=== PATIENT | male | born 1965 | race Two or more races ===

== ENCOUNTER 2020-03-16 06:51 | Outpatient (REF) | payer OTHER, SELFPAY ==
[2020-03-16 07:31] LABS: MANUAL DIFF FLAG NO
[2020-03-16 07:41] LABS: Basophils Absolute Auto 0.1 X10*3/uL (0.0-0.2); Basophils Percent Auto 0.6 % (0-2); Eosinophils Absolute Auto 0.3 X10*3/uL (0.0-0.4); Eosinophils Percent Auto 2.8 % (0-4); Hematocrit 35.7 % (42-52); Hemoglobin 11.1 g/dl (14.0-18.0); Imm Gran Abs Auto 0.04 X10*3/uL (0.00-0.03); Imm Gran Pct Auto 0.4 % (0.0-0.4); Lymphocytes Absolute Auto 2.5 X10*3/uL (1.2-4.9); Lymphocytes Percent Auto 23.2 % (20-40); Mean Corpuscular HGB Conc 31.1 g/dl (31.0-36.0); Mean Corpuscular Volume 93.2 fL (80-98); Mean Platelet Volume 9.7 fL (9.4-12.4); Monocytes Percent Auto 9.2 % (2-11); Neutrophils Percent Auto 63.8 % (45-73); Platelet Count 346 X10*3/uL (160-400); Red Blood Count 3.83 X10*6/uL (4.60-5.80); Red Cell Distribution Width 15.4 % (11.0-16.0); White Blood Count 10.9 X10*3/uL (4.8-10.8)
[2020-03-16 08:22] LABS: Alanine Aminotransferase 49 U/L (0-40); Albumin Level 3.5 g/dL (3.5-5.0); Alkaline Phosphatase 55 U/L (39-117); Aspartate Amino Transferase 31 U/L (5-37); Bilirubin Total 0.4 mg/dL (0.0-1.0); Blood Urea Nitrogen 30 mg/dL (9-16); Calcium 7.7 mg/dL (8.4-10.2); Cholesterol 136 mg/dL; Estimated Glomerular Filt Rate 40; Glucose Fasting 170 mg/dL (60-99); HDL Cholesterol 25 mg/dL; Iron 81 mcg/dL (45-160); LDL Cholesterol Calculated 42 mg/dl; Percent Iron Saturation 27 % (15-50); Total Iron Binding Capacity 304 mcg/dL (228-428); Total Protein 6.3 g/dL (6.5-8.0); Triglycerides 345 mg/dL; Unsaturated Iron Binding 223 ug/dL
[2020-03-16 08:29] LABS: Anion Gap 12 (12-20); Carbon Dioxide 27 mmol/L (22-29); Chloride 107 mmol/L (96-108); Potassium 4.4 mmol/l (3.3-5.1); Sodium 142 mmol/L (135-145)
[2020-03-16 08:42] LABS: Ferritin 39 ng/mL (20-250)
[2020-03-16 08:48] LABS: Creatinine Urine 94.24 mg/dL
[2020-03-20 11:02] LABS: Vitamin A 80 mcg/dL (38-98)
== END 2020-03-16 06:52 | disposition home or self-care (01) ==
LOC: HO.LAB 06:51
PROVIDERS: PCP Internal Medicine; Visit Provider Internal Medicine
DX: E11.49 Type 2 diabetes mellitus with other diabetic neurological complication (principal); E11.22 Type 2 diabetes mellitus with diabetic chronic kidney disease; N18.9 Chronic kidney disease, unspecified; D63.1 Anemia in chronic kidney disease; E78.2 Mixed hyperlipidemia; E50.9 Vitamin A deficiency, unspecified; E55.9 Vitamin D deficiency, unspecified
CPT/HCPCS: 36415; 80053; 80061; 82043; 82306; 82728; 83540; 84590; 85025

== ENCOUNTER → 2020-04-01 13:28 | Outpatient (BNVA) | payer OTHER, SELFPAY | PROVIDERS: PCP Internal Medicine; Visit Provider Physician Assistant | DX: E66.9 Obesity, unspecified (principal); Z68.35 Body mass index [BMI] 35.0-35.9, adult; Z98.84 Bariatric surgery status | CPT/HCPCS: 99212 ==

== ENCOUNTER 2020-04-24 10:54 | Emergency (ER) | payer OTHER, SELFPAY ==
[2020-04-24 11:00] VITALS: BP 157/62; PULSE 90; RESP 18; TEMP 38.8; BMI 31.8
[2020-04-24 11:50] VITALS: O2SAT 98
[2020-04-24] MEDS: 0.9 % Sodium Chloride 1,000 ML 999 ML IVCONT ×2 (12:14→16:43)
[2020-04-24] MEDS: Acetaminophen 325 MG TABLET 975 MG PO (12:18)
--- NOTE | 2020-04-24 12:19 | PC.NURSE ---
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
[2020-04-24 12:20] LABS: Basophils Percent Auto 0.3 % (0-2); Eosinophils Absolute Auto 0.1 X10*3/uL (0.0-0.4); Eosinophils Percent Auto 0.6 % (0-4); Hematocrit 34.5 % (42-52); Hemoglobin 10.7 g/dl (14.0-18.0); Imm Gran Abs Auto 0.04 X10*3/uL (0.00-0.03); Imm Gran Pct Auto 0.4 % (0.0-0.4); Lymphocytes Absolute Auto 0.8 X10*3/uL (1.2-4.9); Lymphocytes Percent Auto 7.9 % (20-40); MANUAL DIFF FLAG SCAN; Mean Corpuscular Hemoglobin 29.4 pg (27.0-33.0); Mean Corpuscular Volume 94.8 fL (80-98); Mean Platelet Volume 9.3 fL (9.4-12.4); Monocytes Absolute Auto 1.5 X10*3/uL (0.1-1.2); Monocytes Percent Auto 15.1 % (2-11); Neutrophils Absolute Auto 7.7 X10*3/uL (2.0-8.3); Neutrophils Percent Auto 75.7 % (45-73); Platelet Count 330 X10*3/uL (160-400); Red Blood Count 3.64 X10*6/uL (4.60-5.80); Red Cell Distribution Width 15.1 % (11.0-16.0); SCAN SMEAR FLAG 1; White Blood Count 10.2 X10*3/uL (4.8-10.8)
[2020-04-24 12:21] LABS: Adenovirus PCR Not Detected (Not Detect.); Bordetella parapertussis PCR Not Detected (Not Detect.); Bordetella pertussis PCR Not Detected (Not Detect.); Chlamydia pneumoniae PCR Not Detected (Not Detect.); Coronavirus 229E PCR Not Detected (Not Detect.); Coronavirus HKU1 PCR Not Detected (Not Detect.); Coronavirus NL63 PCR Not Detected (Not Detect.); Coronavirus OC43 PCR Not Detected (Not Detect.); Human metapneumovirus PCR Not Detected (Not Detect.); Influenza A PCR Not Detected (Not Detect.); Influenza B PCR Not Detected (Not Detect.); Mycoplasma pneumoniae PCR Not Detected (Not Detect.); Parainfluenza 1 PCR Not Detected (Not Detect.); Parainfluenza 2 PCR Not Detected (Not Detect.); Parainfluenza 3 PCR Not Detected (Not Detect.); Parainfluenza 4 PCR Not Detected (Not Detect.); RSV PCR Not Detected (Not Detect.); Rhino/Enterovirus PCR Not Detected (Not Detect.)
[2020-04-24 12:25] LABS: INTERNATIONAL NORM RATIO 1.1 (0.9-1.1); Prothrombin Time 12.5 SEC (10.8-13.0)
[2020-04-24 12:38] LABS: Lactic Acid 1.2 mmol/L (0.5-2.0)
[2020-04-24 12:40] LABS: SLIDE REVIEW VERIFIED
--- NOTE | 2020-04-24 12:40 | ED_ITS ---
HPI - Chest Pain General Chief Complaint: Chest Pain Stated Complaint: chest pain Time Seen by Provider: 04/24/20 11:50 Source: patient and EMS Mode of arrival: EMS Limitations: language barrier (German-speaking) History of Present Illness HPI narrative: 55yoM c PMHx of CKD, DM, HTN, HLD and obesity presenint via EMS from his [facility] presenting to the ED c/o cough c mid- sternal chest pain c associated SOB/WADDELL that started today. Per staff patient was diaphoretic. Patient was given aspirin x4 by EMS reports that his chest pain resolved before the aspirin was given. Patient denies any fevers, chills, nausea/vomiting, paresthesias, abdominal pain, diarrhea, constipation. Denies recent sick contacts or recent travel. Denies any additional complaints or concerns at this time. Related Data Home Medications Medication Instructions Recorded Confirmed acetaminophen 500 mg tablet 1,000 mg PO Q6H PRN 04/01/20 04/01/20 alcohol swabs pad TOPICAL TID 04/01/20 04/01/20 blood sugar diagnostic #10 ea 04/01/20 04/01/20 bupropion HCl 300 mg 24 hr tablet, 300 mg PO DAILY 04/01/20 04/01/20 extended release buspirone 5 mg tablet 5 mg PO BID 04/01/20 04/01/20 calcium carbonate-vitamin D3 600 1 tab PO BID 04/01/20 04/01/20 mg (1,500 mg)-800 unit tablet cholecalciferol (vitamin D3) 1,250 PO 04/01/20 04/01/20 mcg (50,000 unit) capsule cromolyn 4 % eye drops drp OPHTHALMIC (EYE) 04/01/20 04/01/20 fenofibrate 160 mg tablet 160 mg PO DAILY 04/01/20 04/01/20 flash glucose sensor #1 ea 04/01/20 04/01/20 fluticasone propionate 50 INTRANASAL 04/01/20 04/01/20 mcg/actuation nasal spray,suspension gabapentin 300 mg capsule mg PO 04/01/20 04/01/20 lancets #100 ea 04/01/20 04/01/20 loratadine 10 mg tablet 10 mg PO DAILY 04/01/20 04/01/20 multivitamin 1 tab PO DAILY 04/01/20 04/01/20 omega-3 fatty acids 1,000 mg 1,000 mg PO DAILY 04/01/20 04/01/20 capsule omega-3 fatty acids-fish oil 360 1 cap PO BID 04/01/20 04/01/20 mg-1,200 mg capsule trazodone 100 mg tablet [id number] mg PO BEDTIME PRN 04/01/20 04/01/20 Previous Rx's Medication Instructions Recorded insulin lispro 100 unit/mL See Rx Instructions SUBCUT DAILY 03/02/20 subcutaneous solution 30 Days #40 ml lisinopril 2.5 mg tablet 2.5 mg PO DAILY 30 Days #30 tab 03/17/20 flash glucose sensor #2 ea 04/20/20 Allergies Allergy/AdvReac Type Severity Reaction Status Date / Time Sulfa (Sulfonamide Allergy Unknown UNKNOWN Verified 04/01/20 14:04 Antibiotics) [SULFA (SULFONAMIDE ANTIBIOTICS)] pt states no food allergies Allergy Unknown Unknown Uncoded 03/27/20 09:22 Review of Systems Review of Systems: Constitutional : No Fever, No Chills, No Night Sweats, No Fatigue, No Malaise ENT/Mouth : No Hearing loss, No Ear Pain, No Nasal Congestion, No Sinus Pain, No Hoarseness, No sore throat, No Rhinorrhea, No Swallowing Difficulty Eyes: No Eye Pain, No Vision Changes Cardiovascular : + Chest Pain, + SOB, + Dyspnea on Exertion, + Orthopnea, + Edema, + extremity swelling, No Palpitations Respiratory : + Cough, No Sputum, No Wheezing, No Dyspnea Gastrointestinal : No Nausea, No Vomiting, No Diarrhea, No abdominal Pain Genitourinary : No Dysuria Musculoskeletal : No joint pain, No Myalgias, No Joint Swelling Skin : No Skin Lesions, No rash Neuro : No Weakness, No Numbness, No Paresthesias, No Loss of Consciousness, No Dizziness, No Headache Heme/Lymph: No Lymphadenopathy Yes all other systems are reviewed and are negative [facility] Past Medical History Attestation statement: The following information was validated with the patient. Medical History CKD (chronic kidney disease) Diabetes type 2, uncontrolled Diabetic nephropathy associated with type 2 diabetes mellitus Surgical History 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 History of tonsillectomy and adenoidectomy Hx laparoscopic cholecystectomy S/P cataract surgery S/P debridement S/P tooth extraction Status post amputation of toe Family History Family History Father Cerebral aneurysm CVD (cardiovascular disease) Mother DM (diabetes mellitus) Brother No problems noted. Brother No problems noted. Son No problems noted. Daughter No problems noted. Social History Social History Alcohol intake: never Smoking Status: Never smoker Smoked in Last 30 Days: No Use of substances other than those prescribed or required for medical reasons: No Advance Directives: No Advance Directives Information Provided: Yes Physical Exam Vital Signs: Vital Signs: Last Vital Signs Temp 101.9 F H 04/24/20 11:00 Pulse 90 04/24/20 11:00 Resp 18 04/24/20 11:00 BP 157/62 H 04/24/20 11:00 Pulse Ox 98 04/24/20 11:50 Body Mass Index 31.8 vital signs have been reviewed as normal and appeared to be correct. Blood pressure normal. Heart rate tachycardic. Respiration rate normal. Temperature febrile. Oxygen saturation normal. Appearance: Alert. Oriented X3. No acute distress. Head: Normal external exam. Normocephalic. Atraumatic. Eyes: PERRLA. EOMI. Conjunctiva and sclera normal. Eyelids normal. ENT: EAC normal. TM's Normal. Pharynx normal. Uvula midline. Moist mucous membranes. No trismus noted. No drooling noted. No muffled voice noted. Neck: Normal inspection. Neck supple. FROM. No adenopathy. Thyroid Normal. No meningeal signs. No neck mass noted. CVS: Normal heart rate and rhythm. Heart sound normal. No murmurs noted. Pulses normal throughout. Respiratory: No respiratory distress. Painless inspiration. Breath sounds normal. No wheezes/rales/rhonchi noted. Chest nontender. No accessory muscle usage noted or decreased air movement noted. Abdomen: Soft and nontender. Bowel sounds normal in all 4 quadrants. No distention noted. No organomegaly noted. No visible injury noted. Back: Full range of motion noted. Skin: Skin warm and dry. Normal skin color. Normal skin turgor. No rashes/lesions/lacerations noted. Extremities: + mild lower extremity edema. Extremities exhibit normal range of motion. Extremities nontender. Neuro: Oriented X 3. No motor deficit. No sensory deficit. Reflexes normal. Course Course Course Narrative: 12:10PM - 55yoM c PMHx of CKD, DM, HTN, HLD and obesity presenting to the ed via EMS from his [facility] presenting to the ED c/o cough c mid- sternal chest pain c associated SOB/WADDELL that started today. Per staff patient was diaphoretic. Patient was given aspirin x4 by EMS reports that his chest pain resolved before the aspirin was given. - concern for ACS vs PE vs CHF vs COVID-19' - Plan:Labs, CXR, EKG, UA, Respiratory panel. Provide a L of IV fluids, 975 mg of Tylenol and re-evaluate. Reevaluation(s) Reevaluation #1: - Elevated BUN/Cr worse when compared to prior. D-dimer at 794. All other labs WNL. COVID-19 +. Therefore this is Viral Sepsis not bacterial no IV abx's indicated. All other viruses on respiratory panel negative. All other labs within normal limits. - due to elevated D-dimer and history of CKD will obtain a V/Q scan for possible PE and re-evaluate. Time: 14:04 [facility] - Chest Pain Medical Records Data Attestation: I reviewed the patient's medical records. Lab Data Attestation: I reviewed the patient's lab results. Result diagrams: 04/24/20 12:07 04/24/20 12:07 Labs: Lab Results 04/24/20 04/24/20 04/24/20 Range/Units 12:07 12:07 12:07 WBC 10.2 (4.8-10.8) X10*3/uL RBC 3.64 L (4.60-5.80) X10*6/uL Hgb 10.7 L (14.0-18.0) g/dl Hct 34.5 L (42-52) % MCV 94.8 (80-98) fL MCH 29.4 (27.0-33.0) pg MCHC 31.0 (31.0-36.0) g/dl RDW 15.1 (11.0-16.0) % Plt Count 330 (160-400) X10*3/uL MPV 9.3 L (9.4-12.4) fL Immature Gran % (Auto) 0.4 (0.0-0.4) % Neut % (Auto) 75.7 H (45-73) % Lymph % (Auto) 7.9 L (20-40) % [place] % (Auto) 15.1 H (2-11) % Eos % (Auto) 0.6 (0-4) % Baso % (Auto) 0.3 (0-2) % Lymph # (Auto) 0.8 L (1.2-4.9) X10*3/uL [place] # (Auto) 1.5 H (0.1-1.2) X10*3/uL Eos # (Auto) 0.1 (0.0-0.4) X10*3/uL Baso # (Auto) 0.0 (0.0-0.2) X10*3/uL Abs Immat Gran (auto) 0.04 H (0.00-0.03) X10*3/uL Absolute Neuts (auto) 7.7 (2.0-8.3) X10*3/uL Absolute Nucleated RBC 0.000 (0.0-0.012) X10*3/uL Nucleated RBC % (auto) 0.0 (0.0-0.2) /100WBC Smear Tech's Comments VERIFIED PT 12.5 (10.8-13.0) SEC INR 1.1 (0.9-1.1) D-Dimer 794 NG/ML Sodium 140 (135-145) mmol/L Potassium 4.0 (3.3-5.1) mmol/l Chloride 108 (96-108) mmol/L Carbon Dioxide 25 (22-29) mmol/L Anion Gap 11 L (12-20) BUN 29 H (9-16) mg/dL Creatinine 2.03 H (0.5-1.4) mg/dL Estim Creat Clear Calc 47.4 Estimated GFR 34 Random Glucose 174 H (60-115) mg/dL Lactic Acid (0.5-2.0) mmol/L Calcium 7.7 L (8.4-10.2) mg/dL Magnesium 1.7 (1.6-2.6) mg/dL Ferritin 96 (20-250) ng/mL Total Bilirubin 0.8 (0.0-1.0) mg/dL Direct Bilirubin 0.4 (0.0-0.5) mg/dL AST 28 (5-37) U/L ALT 41 H (0-40) U/L Alkaline Phosphatase 58 (39-117) U/L Lactate Dehydrogenase 210 (118-273) U/L Troponin I High Sens (<3.5-35.0) ng/L B-Natriuretic Peptide (<100) pg/mL Total Protein 6.6 (6.5-8.0) g/dL Albumin 3.7 (3.5-5.0) g/dL Procalcitonin ng/mL Respiratory Panel [place] Adenovirus (Rapid PCR) (Not Detect.) B.pert (TEM-PCR) (Not Detect.) B.parapertussis DNA PCR (Not Detect.) C. pneumoniae DNA (PCR) (Not Detect.) Coronavirus OC43 (PCR) (Not Detect.) Coronavirus HKU1 (PCR) (Not Detect.) Coronavirus 229E (PCR) (Not Detect.) Coronavirus NL63 (PCR) (Not Detect.) Human Metapneumovir PCR (Not Detect.) Influenza A (RT-PCR) (Not Detect.) Influenza B (RT-PCR) (Not Detect.) M. pneumoniae (PCR) (Not Detect.) Parainfluenza 1 (PCR) (Not Detect.) Parainfluenza 2 (PCR) (Not Detect.) Parainfluenza 3 (PCR) (Not Detect.) Parainfluenza 4 (PCR) (Not Detect.) RSV (PCR) (Not Detect.) Entero/Rhino (PCR) (Not Detect.) SARS-CoV-2 RNA (RT-PCR) (Not Detect.) 04/24/20 04/24/20 04/24/20 Range/Units 12:07 12:07 12:12 WBC (4.8-10.8) X10*3/uL RBC (4.60-5.80) X10*6/uL Hgb (14.0-18.0) g/dl Hct (42-52) % MCV (80-98) fL MCH (27.0-33.0) pg MCHC (31.0-36.0) g/dl RDW (11.0-16.0) % Plt Count (160-400) X10*3/uL MPV (9.4-12.4) fL Immature Gran % (Auto) (0.0-0.4) % Neut % (Auto) (45-73) % Lymph % (Auto) (20-40) % [place] % (Auto) (2-11) % Eos % (Auto) (0-4) % Baso % (Auto) (0-2) % Lymph # (Auto) (1.2-4.9) X10*3/uL [place] # (Auto) (0.1-1.2) X10*3/uL Eos # (Auto) (0.0-0.4) X10*3/uL Baso # (Auto) (0.0-0.2) X10*3/uL Abs Immat Gran (auto) (0.00-0.03) X10*3/uL Absolute Neuts (auto) (2.0-8.3) X10*3/uL Absolute Nucleated RBC (0.0-0.012) X10*3/uL Nucleated RBC % (auto) (0.0-0.2) /100WBC Smear Tech's Comments PT (10.8-13.0) SEC INR (0.9-1.1) D-Dimer NG/ML Sodium (135-145) mmol/L Potassium (3.3-5.1) mmol/l Chloride (96-108) mmol/L Carbon Dioxide (22-29) mmol/L Anion Gap (12-20) BUN (9-16) mg/dL Creatinine (0.5-1.4) mg/dL Estim Creat Clear Calc Estimated GFR Random Glucose (60-115) mg/dL Lactic Acid 1.2 (0.5-2.0) mmol/L Calcium (8.4-10.2) mg/dL Magnesium (1.6-2.6) mg/dL Ferritin (20-250) ng/mL Total Bilirubin (0.0-1.0) mg/dL Direct Bilirubin (0.0-0.5) mg/dL AST (5-37) U/L ALT (0-40) U/L Alkaline Phosphatase (39-117) U/L Lactate Dehydrogenase (118-273) U/L Troponin I High Sens 5.1 (<3.5-35.0) ng/L B-Natriuretic Peptide 19 (<100) pg/mL Total Protein (6.5-8.0) g/dL Albumin (3.5-5.0) g/dL Procalcitonin ng/mL Respiratory Panel [place] See Note Adenovirus (Rapid PCR) Not Detected (Not Detect.) B.pert (TEM-PCR) Not Detected (Not Detect.) B.parapertussis DNA PCR Not Detected (Not Detect.) C. pneumoniae DNA (PCR) Not Detected (Not Detect.) Coronavirus OC43 (PCR) Not Detected (Not Detect.) Coronavirus HKU1 (PCR) Not Detected (Not Detect.) Coronavirus 229E (PCR) Not Detected (Not Detect.) Coronavirus NL63 (PCR) Not Detected (Not Detect.) Human Metapneumovir PCR Not Detected (Not Detect.) Influenza A (RT-PCR) Not Detected (Not Detect.) Influenza B (RT-PCR) Not Detected (Not Detect.) M. pneumoniae (PCR) Not Detected (Not Detect.) Parainfluenza 1 (PCR) Not Detected (Not Detect.) Parainfluenza 2 (PCR) Not Detected (Not Detect.) Parainfluenza 3 (PCR) Not Detected (Not Detect.) Parainfluenza 4 (PCR) Not Detected (Not Detect.) RSV (PCR) Not Detected (Not Detect.) Entero/Rhino (PCR) Not Detected (Not Detect.) SARS-CoV-2 RNA (RT-PCR) Detected A (Not Detect.) 04/24/20 04/24/20 Range/Units 12:44 12:44 WBC (4.8-10.8) X10*3/uL RBC (4.60-5.80) X10*6/uL Hgb (14.0-18.0) g/dl Hct (42-52) % MCV (80-98) fL MCH (27.0-33.0) pg MCHC (31.0-36.0) g/dl RDW (11.0-16.0) % Plt Count (160-400) X10*3/uL MPV (9.4-12.4) fL Immature Gran % (Auto) (0.0-0.4) % Neut % (Auto) (45-73) % Lymph % (Auto) (20-40) % [place] % (Auto) (2-11) % Eos % (Auto) (0-4) % Baso % (Auto) (0-2) % Lymph # (Auto) (1.2-4.9) X10*3/uL [place] # (Auto) (0.1-1.2) X10*3/uL Eos # (Auto) (0.0-0.4) X10*3/uL Baso # (Auto) (0.0-0.2) X10*3/uL Abs Immat Gran (auto) (0.00-0.03) X10*3/uL Absolute Neuts (auto) (2.0-8.3) X10*3/uL Absolute Nucleated RBC (0.0-0.012) X10*3/uL Nucleated RBC % (auto) (0.0-0.2) /100WBC Smear Tech's Comments PT (10.8-13.0) SEC INR (0.9-1.1) D-Dimer Cancelled NG/ML Sodium (135-145) mmol/L Potassium (3.3-5.1) mmol/l Chloride (96-108) mmol/L Carbon Dioxide (22-29) mmol/L Anion Gap (12-20) BUN (9-16) mg/dL Creatinine (0.5-1.4) mg/dL Estim Creat Clear Calc Estimated GFR Random Glucose (60-115) mg/dL Lactic Acid (0.5-2.0) mmol/L Calcium (8.4-10.2) mg/dL Magnesium (1.6-2.6) mg/dL Ferritin (20-250) ng/mL Total Bilirubin (0.0-1.0) mg/dL Direct Bilirubin (0.0-0.5) mg/dL AST (5-37) U/L ALT (0-40) U/L Alkaline Phosphatase (39-117) U/L Lactate Dehydrogenase (118-273) U/L Troponin I High Sens (<3.5-35.0) ng/L B-Natriuretic Peptide (<100) pg/mL Total Protein (6.5-8.0) g/dL Albumin (3.5-5.0) g/dL Procalcitonin 0.13 ng/mL Respiratory Panel [place] Adenovirus (Rapid PCR) (Not Detect.) B.pert (TEM-PCR) (Not Detect.) B.parapertussis DNA PCR (Not Detect.) C. pneumoniae DNA (PCR) (Not Detect.) Coronavirus OC43 (PCR) (Not Detect.) Coronavirus HKU1 (PCR) (Not Detect.) Coronavirus 229E (PCR) (Not Detect.) Coronavirus NL63 (PCR) (Not Detect.) Human Metapneumovir PCR (Not Detect.) Influenza A (RT-PCR) (Not Detect.) Influenza B (RT-PCR) (Not Detect.) M. pneumoniae (PCR) (Not Detect.) Parainfluenza 1 (PCR) (Not Detect.) Parainfluenza 2 (PCR) (Not Detect.) Parainfluenza 3 (PCR) (Not Detect.) Parainfluenza 4 (PCR) (Not Detect.) RSV (PCR) (Not Detect.) Entero/Rhino (PCR) (Not Detect.) SARS-CoV-2 RNA (RT-PCR) (Not Detect.) ECG Data ECG #1: Attestation: I personally reviewed and interpreted this ECG as follows: ECG interpretation date: 04/24/20 ECG interpretation time: 12:55 Interpretation: Normal sinus rhythm with a ventricular rate of 87 with a normal WA interval normal QRS duration normal QT/QTC interval. No acute ischemic changes noted. Critical Care Time Critical Care Time Critical Care Time: Yes Total Critical Care Time: 60 Attestation: I personally attest to this time spent taking care of the patient Discharge Plan Discharge Prescriptions: No Action insulin lispro [Admelog U-100 Insulin lispro] 100 unit/mL solution See Rx Instructions subcut DAILY 30 Days Qty: 40 RF: 4 lisinopril 2.5 mg tablet 2.5 mg PO DAILY 30 Days Qty: 30 RF: 6 (DME) FreeStyle Dario 14 Day Sensor Kit See Rx Instructions .MEDSUPPLY Qty: 2 RF: 11 (DME) FreeStyle Dario 14 Day Sensor Kit See Rx Instructions ea topical .MEDSUPPLY Qty: 1 RF: 0 (DME) FreeStyle Precision Harshad Strips Strip See Rx Instructions ea Not Applicable DAILY Qty: 10 RF: 0 omega-3 fatty acids-fish oil 360-1,200 mg capsule 1 cap PO BID RF: 0 cholecalciferol (vitamin D3) 1,250 mcg (50,000 unit) capsule PO RF: 0 fenofibrate 160 mg tablet 160 mg PO DAILY RF: 0 bupropion HCl 300 mg tablet extended release 24 hr 300 mg PO DAILY RF: 0 loratadine 10 mg tablet 10 mg PO DAILY RF: 0 gabapentin 300 mg capsule PO RF: 0 trazodone 100 mg tablet [id number] mg PO BEDTIME PRNRF: 0 buspirone 5 mg tablet 5 mg PO BID RF: 0 (DME) lancets Misc See Rx Instructions ea Not Applicable .MEDSUPPLY Qty: 100 RF: 0 multivitamin Tablet 1 tab PO DAILY RF: 0 fluticasone propionate 50 mcg/actuation spray,suspension intranasal RF: 0 alcohol swabs Pads, Medicated topical TID RF: 0 acetaminophen 500 mg tablet 1,000 mg PO Q6H PRNRF: 0 cromolyn 4 % drops ophthalmic (eye) RF: 0 calcium carbonate-vitamin D3 600 mg(1,500mg) -800 unit tablet 1 tab PO BID RF: 0 omega-3 fatty acids [Fish Oil Concentrate] 1,000 mg capsule 1,000 mg PO DAILY RF: 0
[2020-04-24 12:44] LABS: Alanine Aminotransferase 41 U/L (0-40); Albumin Level 3.7 g/dL (3.5-5.0); Alkaline Phosphatase 58 U/L (39-117); Anion Gap 11 (12-20); Aspartate Amino Transferase 28 U/L (5-37); Bilirubin Direct 0.4 mg/dL (0.0-0.5); Bilirubin Total 0.8 mg/dL (0.0-1.0); Blood Urea Nitrogen 29 mg/dL (9-16); Calcium 7.7 mg/dL (8.4-10.2); Carbon Dioxide 25 mmol/L (22-29); Chloride 108 mmol/L (96-108); Creatinine Clr Calc Pharmacy 47.4; Estimated Glomerular Filt Rate 34; Glucose Random 174 mg/dL (60-115); Magnesium 1.7 mg/dL (1.6-2.6); Sodium 140 mmol/L (135-145); Total Protein 6.6 g/dL (6.5-8.0)
[2020-04-24 12:53] LABS: B Type Natriuretic Peptide 19 pg/mL (<100); Troponin-I High Sensitivity 5.1 ng/L (<3.5-35.0)
[2020-04-24 12:58] LABS: Lactate Dehydrogenase 210 U/L (118-273)
[2020-04-24 13:01] LABS: D Dimer 794 NG/ML
[2020-04-24 13:20] LABS: Ferritin 96 ng/mL (20-250)
[2020-04-24 13:24] LABS: Procalcitonin 0.13 ng/mL
--- NOTE | 2020-04-24 13:28 | PC.NURSE ---
Patients called, she was updated and she asked that we feed him because patient is hungry, she stated a familymember will bring in the patients cell phone supervisor mapping as well as food for when he is able to eat it.
--- NOTE | 2020-04-24 13:51 | XR_ITS ---
EXAMINATION: XR CHEST CLINICAL INFORMATION: Shortness of breath, chest pain and cough COMPARISON: 11/15/2018.. TECHNIQUE: Frontal view of the chest was obtained. FINDINGS: Low lung volumes limit evaluation. Mild linear markings are seen at the left lung base. The right lung appears clear. The heart and mediastinal structures are unremarkable. XR/XR chest 1V IMPRESSION: Linear markings at the left lung base of the appearance of atelectasis/scarring without significant change. No acute cardiopulmonary process.
[2020-04-24 13:59] LABS: SARS-CoV-2 PCR Detected (Not Detect.)
[2020-04-24 14:00] VITALS: BP 121/54; PULSE 77; RESP 18; TEMP 36.7; O2SAT 96
--- NOTE | 2020-04-24 14:47 | PC.NURSE ---
pt has called stating her has kidney issues and open ulcer to rt foot, will notify provider of rt foot
[2020-04-24 15:27] VITALS: BP 123/51; PULSE 79; RESP 18; TEMP 36.9; O2SAT 97
--- NOTE | 2020-04-24 15:29 | PC.NURSE ---
patient alert and watching tv, was oob sitting in chair, urine obtained, pt nsr 70s on monitor, vss, provider doesnt want patient to have any food until scan results are in, provider to update patient on status shortly, will continue to monitor.
--- NOTE | 2020-04-24 15:38 | NM_ITS ---
EXAMINATION: OK LUNG IMAGE PERFUSION CLINICAL INFORMATION: Shortness of breath, pain, positive: COMPARISON: Chest film dated 04/24/2020 TECHNIQUE: 4 mCi technetium MAA. Images obtained in various obliquities over the lung raya FINDINGS: Low lung volumes. Some minimal heterogeneity of perfusion at the left base but there is no evidence of a segmental defect. Review of the chest x-ray shows some left basilar atelectasis OK/OK pul perfusion IMPRESSION: Low probability for pulmonary embolism.
[2020-04-24 15:58] LABS: Glucose Urine UA 100 MG/DL (NEG); Leukocyte Esterase Urine NEG (NEG); Nitrite Urine NEG (NEG); PH 5.5 (5.0-8.0); Specific Gravity - Urine >= 1.030 (1.005-1.025); Urine Blood TRACE (NEG); Urine Ketones NEG (NEG); Urine Protein 2+ MG/DL (NEG-TRACE)
[2020-04-24 16:00] LABS: Appearance Urine CLEAR; Color Urine YELLOW
[2020-04-24 16:05] LABS: WBC Urine 0 /HPF (0-4)
--- NOTE | 2020-04-24 16:43 | PC.NURSE ---
ivf started per order, pt hr 79 nsr sponge buffer, pt currently sitting in chair watching tv, will continue to monitor.
[2020-04-24 17:34] VITALS: BP 165/68; PULSE 89; RESP 18; TEMP 37.4; O2SAT 99
--- NOTE | 2020-04-24 17:35 | PC.NURSE ---
pt returned from [place], ivf continue to run, nsr 80s on monitor, vss, will continue to monitor.
--- NOTE | 2020-04-24 18:28 | PC.NURSE ---
patients continues to call wanting the patient to eat, will ask for provider
--- NOTE | 2020-04-24 18:34 | PC.NURSE ---
patients called again, she wanted to be sure it was ok that the patient was given food, this nurse just left the patients room from giving him food as the provider had ok'd him to eat.
--- NOTE | 2020-04-24 19:47 | PC.NURSE ---
patients ivf continue to run, patient is continuously reminded to keep arm straight, will continue to monitor.
[2020-04-24 20:10] VITALS: BP 161/72; PULSE 99; RESP 18; TEMP 37.7; O2SAT 97
--- NOTE | 2020-04-24 20:16 | PC.NURSE ---
iv fluids have completed, repeat labs drawn, vss, pt nsr 90s on monitor, will continue to monitor.
[2020-04-24 20:46] LABS: Anion Gap 13 (12-20); Blood Urea Nitrogen 27 mg/dL (9-16); Calcium 7.2 mg/dL (8.4-10.2); Carbon Dioxide 21 mmol/L (22-29); Chloride 109 mmol/L (96-108); Creatinine Clr Calc Pharmacy 50.4; Estimated Glomerular Filt Rate 37; Glucose Random 239 mg/dL (60-115); Sodium 139 mmol/L (135-145)
[2020-04-24 20:50] LABS: Troponin-I High Sensitivity 7.3 ng/L (<3.5-35.0)
== END 2020-04-24 21:16 | disposition home or self-care (01) ==
PROVIDERS: Nurse Practitioner Family; Physician Assistant Medical; Emergency Provider Emergency Medicine Emergency Medical Services
DX: R07.89 Other chest pain (principal); I12.9 Hypertensive chronic kidney disease with stage 1 through stage 4 chronic kidney disease, or unspecified chronic kidney disease; E11.22 Type 2 diabetes mellitus with diabetic chronic kidney disease; N18.9 Chronic kidney disease, unspecified; Z20.828 Contact with and (suspected) exposure to other viral communicable diseases; Z79.899 Other long term (current) drug therapy
CPT/HCPCS: 36415; 71045; 78580; 80048; 80076; 81001; 82728; 83605; 83615; 83735; 83880; 84145; 84484; 85025; 85379; 85610; 87040; 87633; 96360; 96361; 99285; 99291; A9540

== ENCOUNTER → 2020-05-05 08:51 | Outpatient (BNVA) | payer OTHER, SELFPAY | PROVIDERS: Visit Provider Internal Medicine Endocrinology, Diabetes & Metabolism | DX: Z76.89 Persons encountering health services in other specified circumstances (principal) ==

== ENCOUNTER 2020-05-11 10:40 | Outpatient (REF) | payer OTHER, SELFPAY | END 2020-05-11 10:41 | disposition home or self-care (01) | LOC: HO.LAB 10:40 | PROVIDERS: PCP Internal Medicine; Visit Provider Internal Medicine | DX: Z20.828 Contact with and (suspected) exposure to other viral communicable diseases (principal) | CPT/HCPCS: C9803; U0003 ==

== ENCOUNTER → 2020-05-18 11:17 | Outpatient (BNVA) | payer OTHER, SELFPAY | PROVIDERS: PCP Internal Medicine; Visit Provider Internal Medicine | DX: Z76.89 Persons encountering health services in other specified circumstances (principal) ==

== ENCOUNTER → 2020-07-28 08:26 | Outpatient (BNVA) | payer OTHER, SELFPAY | PROVIDERS: PCP Internal Medicine; Visit Provider Internal Medicine Endocrinology, Diabetes & Metabolism | DX: E11.65 Type 2 diabetes mellitus with hyperglycemia (principal); E11.21 Type 2 diabetes mellitus with diabetic nephropathy; E11.3399 Type 2 diabetes mellitus with moderate nonproliferative diabetic retinopathy without macular edema, unspecified eye; E11.42 Type 2 diabetes mellitus with diabetic polyneuropathy; E11.22 Type 2 diabetes mellitus with diabetic chronic kidney disease; I12.9 Hypertensive chronic kidney disease with stage 1 through stage 4 chronic kidney disease, or unspecified chronic kidney disease; N18.32 Chronic kidney disease, stage 3b; Z79.4 Long term (current) use of insulin; E78.5 Hyperlipidemia, unspecified | CPT/HCPCS: 82947; 99212 ==

== ENCOUNTER → 2020-08-17 09:23 | Outpatient (BNVA) | payer OTHER, SELFPAY | PROVIDERS: Visit Provider Internal Medicine ==

== ENCOUNTER 2020-08-25 08:35 | Outpatient (REF) | payer OTHER, SELFPAY ==
[2020-08-25 10:30] LABS: Estimated Average Glucose 123 mg/dL; Hemoglobin A1c % 5.9 %
[2020-08-25 11:15] LABS: Alanine Aminotransferase 47 U/L (0-40); Albumin Level 3.7 g/dL (3.5-5.0); Alkaline Phosphatase 59 U/L (39-117); Anion Gap 13 (12-20); Aspartate Amino Transferase 28 U/L (5-37); Bilirubin Total 0.8 mg/dL (0.0-1.0); Blood Urea Nitrogen 27 mg/dL (9-16); Calcium 7.8 mg/dL (8.4-10.2); Carbon Dioxide 24 mmol/L (22-29); Chloride 109 mmol/L (96-108); Cholesterol 136 mg/dL; Estimated Glomerular Filt Rate 46; Glucose Fasting 164 mg/dL (60-99); HDL Cholesterol 25 mg/dL; Potassium 4.3 mmol/L (3.3-5.1); Sodium 142 mmol/L (135-145); Total Protein 6.7 g/dL (6.5-8.0); Triglycerides 453 mg/dL
[2020-08-25 12:04] LABS: Magnesium 2.1 mg/dL (1.6-2.6)
[2020-08-25 12:43] LABS: Creatinine Urine 79.07 mg/dL; Protein/Creatinine Ratio, Ur 3.82 (<0.2); Total Protein Urine Random 302 mg/dL (<12)
[2020-08-26 04:17] LABS: LDL Cholesterol Direct 38 mg/dL (<100)
[2020-08-26 17:52] LABS: Calcium (PTHI) 8.2 mg/dL (8.6-10.3); PTHI 129 pg/mL (14-64)
== END 2020-08-25 08:36 | disposition home or self-care (01) ==
LOC: HO.10HDL 08:35
PROVIDERS: Absent Provider Internal Medicine Hypertension Specialist; Visit Provider Internal Medicine Endocrinology, Diabetes & Metabolism
DX: I13.10 Hypertensive heart and chronic kidney disease without heart failure, with stage 1 through stage 4 chronic kidney disease, or unspecified chronic kidney disease (principal); N18.30 Chronic kidney disease, stage 3 unspecified; E11.22 Type 2 diabetes mellitus with diabetic chronic kidney disease; E11.21 Type 2 diabetes mellitus with diabetic nephropathy; E11.65 Type 2 diabetes mellitus with hyperglycemia
CPT/HCPCS: 36415; 80051; 80053; 80061; 82040; 82306; 82310; 82565; 83036; 83721; 83735; 83970; 84100; 84156; 84520

== ENCOUNTER → 2020-10-13 14:28 | Outpatient (BNVA) | payer OTHER, SELFPAY | PROVIDERS: PCP Internal Medicine; Visit Provider Nurse Practitioner Gerontology | DX: E11.65 Type 2 diabetes mellitus with hyperglycemia (principal); E11.42 Type 2 diabetes mellitus with diabetic polyneuropathy; I10 Essential (primary) hypertension; Z79.4 Long term (current) use of insulin | CPT/HCPCS: 82947; 99212 ==

== ENCOUNTER → 2020-10-28 08:30 | Outpatient (BNVA) | payer OTHER, SELFPAY | PROVIDERS: PCP Internal Medicine; Visit Provider Internal Medicine Endocrinology, Diabetes & Metabolism | DX: E11.65 Type 2 diabetes mellitus with hyperglycemia (principal); E11.21 Type 2 diabetes mellitus with diabetic nephropathy; E11.42 Type 2 diabetes mellitus with diabetic polyneuropathy; E11.3399 Type 2 diabetes mellitus with moderate nonproliferative diabetic retinopathy without macular edema, unspecified eye; E11.22 Type 2 diabetes mellitus with diabetic chronic kidney disease; I12.9 Hypertensive chronic kidney disease with stage 1 through stage 4 chronic kidney disease, or unspecified chronic kidney disease; N18.32 Chronic kidney disease, stage 3b; E78.5 Hyperlipidemia, unspecified; E21.1 Secondary hyperparathyroidism, not elsewhere classified; Z79.4 Long term (current) use of insulin | CPT/HCPCS: 82947; 99212 ==

== ENCOUNTER 2020-11-02 08:30 | Outpatient (REF) | payer OTHER, SELFPAY ==
[2020-11-02 11:08] LABS: Alanine Aminotransferase 32 U/L (0-40); Albumin Level 3.4 g/dL (3.5-5.0); Alkaline Phosphatase 74 U/L (39-117); Anion Gap 11 (12-20); Aspartate Amino Transferase 26 U/L (5-37); Bilirubin Total 0.8 mg/dL (0.0-1.0); Blood Urea Nitrogen 23 mg/dL (9-16); Calcium 8.7 mg/dL (8.4-10.2); Carbon Dioxide 27 mmol/L (22-29); Chloride 105 mmol/L (96-108); Estimated Glomerular Filt Rate 39; Glucose Random 229 mg/dL (60-115); Potassium 3.8 mmol/L (3.3-5.1); Sodium 139 mmol/L (135-145); Total Protein 6.4 g/dL (6.5-8.0)
[2020-11-02 11:30] LABS: Vitamin D 25-OH Total 23.5 ng/mL (>30)
== END 2020-11-02 08:31 | disposition home or self-care (01) ==
LOC: HO.10HDL 08:30
PROVIDERS: Visit Provider Internal Medicine Endocrinology, Diabetes & Metabolism
DX: E21.1 Secondary hyperparathyroidism, not elsewhere classified (principal); E55.9 Vitamin D deficiency, unspecified
CPT/HCPCS: 36415; 80053; 82306

== ENCOUNTER 2020-11-04 08:01 | Outpatient (RCR) | payer OTHER, SELFPAY | END 2020-11-12 14:13 | disposition home or self-care (01) | LOC: HO.WCC 08:01 | PROVIDERS: Visit Provider Surgery | DX: E11.621 Type 2 diabetes mellitus with foot ulcer (principal); L97.412 Non-pressure chronic ulcer of right heel and midfoot with fat layer exposed; E11.43 Type 2 diabetes mellitus with diabetic autonomic (poly)neuropathy; Z96.41 Presence of insulin pump (external) (internal); Z79.4 Long term (current) use of insulin; Z79.899 Other long term (current) drug therapy | CPT/HCPCS: 11042; 99212 ==

== ENCOUNTER 2020-11-18 12:38 | Outpatient (RCR) | payer OTHER, SELFPAY ==
--- NOTE | ~2020-11-18 | XR_ITS ---
EXAMINATION: XR FOOT, RIGHT CLINICAL INFORMATION: Diabetic focal COMPARISON: Previous x-ray October 2018 TECHNIQUE: AP, lateral, and oblique views of the right foot. FINDINGS: There has been amputation of the third toe. There is arthritis at the IP and MTP joint of the great toe and joint spaces are otherwise normal. There is a soft tissue dressing soft tissue swelling over the first web space. No soft tissue foreign body is seen. No x-ray evidence of osteomyelitis is seen XR/XR foot RT min 3V IMPRESSION: Postsurgical change from amputation of the third toe. Arthritis of the great toe. No x-ray evidence of osteomyelitis seen.
== END 2021-06-10 15:00 | disposition home or self-care (01) ==
LOC: HO.WCC 12:38
PROVIDERS: Visit Provider Surgery
DX: E11.621 Type 2 diabetes mellitus with foot ulcer (principal); L97.412 Non-pressure chronic ulcer of right heel and midfoot with fat layer exposed; E11.43 Type 2 diabetes mellitus with diabetic autonomic (poly)neuropathy; Z79.84 Long term (current) use of oral hypoglycemic drugs; Z79.899 Other long term (current) drug therapy
CPT/HCPCS: 11042; 73630; 99212

== ENCOUNTER 2020-12-24 06:30 | Outpatient (REF) | payer OTHER, SELFPAY ==
[2020-12-24 07:47] LABS: MANUAL DIFF FLAG NO
[2020-12-24 07:58] LABS: Basophils Absolute Auto 0.1 X10*3/uL (0.0-0.2); Basophils Percent Auto 0.5 % (0-2); Eosinophils Absolute Auto 0.3 X10*3/uL (0.0-0.4); Eosinophils Percent Auto 2.5 % (0-4); Hematocrit 38.1 % (42-52); Hemoglobin 12.2 g/dl (14.0-18.0); Imm Gran Abs Auto 0.05 X10*3/uL (0.00-0.03); Imm Gran Pct Auto 0.4 % (0.0-0.4); Lymphocytes Absolute Auto 2.8 X10*3/uL (1.2-4.9); Lymphocytes Percent Auto 23.8 % (20-40); Mean Corpuscular Hemoglobin 28.8 pg (27.0-33.0); Mean Corpuscular Volume 90.1 fL (80-98); Mean Platelet Volume 9.5 fL (9.4-12.4); Monocytes Absolute Auto 0.9 X10*3/uL (0.1-1.2); Monocytes Percent Auto 7.9 % (2-11); Neutrophils Absolute Auto 7.6 X10*3/uL (2.0-8.3); Neutrophils Percent Auto 64.9 % (45-73); Platelet Count 463 X10*3/uL (160-400); Red Blood Count 4.23 X10*6/uL (4.60-5.80); Red Cell Distribution Width 14.9 % (11.0-16.0); White Blood Count 11.8 X10*3/uL (4.8-10.8)
[2020-12-24 08:13] LABS: Alanine Aminotransferase 34 U/L (0-40); Albumin Level 3.5 g/dL (3.5-5.0); Alkaline Phosphatase 69 U/L (39-117); Anion Gap 12 (12-20); Aspartate Amino Transferase 25 U/L (5-37); Bilirubin Total 0.6 mg/dL (0.0-1.0); Blood Urea Nitrogen 28 mg/dL (9-16); Carbon Dioxide 29 mmol/L (22-29); Chloride 103 mmol/L (96-108); Estimated Glomerular Filt Rate 44; Glucose Random 196 mg/dL (60-115); Potassium 4.3 mmol/L (3.3-5.1); Sodium 140 mmol/L (135-145); Total Protein 7.1 g/dL (6.5-8.0)
[2020-12-24 08:20] LABS: Alanine Aminotransferase 35 U/L (0-40); Albumin Level 3.5 g/dL (3.5-5.0); Alkaline Phosphatase 69 U/L (39-117); Anion Gap 13 (12-20); Aspartate Amino Transferase 25 U/L (5-37); Bilirubin Total 0.6 mg/dL (0.0-1.0); Blood Urea Nitrogen 28 mg/dL (9-16); Carbon Dioxide 27 mmol/L (22-29); Chloride 104 mmol/L (96-108); Cholesterol 152 mg/dL; Estimated Glomerular Filt Rate 43; Glucose Fasting 197 mg/dL (60-99); HDL Cholesterol 25 mg/dL; LDL Cholesterol Calculated 66 mg/dl; Potassium 4.4 mmol/L (3.3-5.1); Sodium 140 mmol/L (135-145); Total Protein 7.1 g/dL (6.5-8.0); Triglycerides 305 mg/dL
[2020-12-24 09:06] LABS: Creatinine Urine 80.67 mg/dL
[2020-12-24 09:22] LABS: Microalbum/Creatinine Ratio Ur 2300.7 ug/mg cr
[2020-12-30 12:52] LABS: Vitamin D 25-OH, D2 <4 ng/mL; Vitamin D 25-OH, D3 42 ng/mL; Vitamin D 25-OH, Total 42 ng/mL (30-100)
== END 2020-12-24 06:31 | disposition home or self-care (01) ==
LOC: HO.LAB 06:30
PROVIDERS: Absent Provider Internal Medicine Hypertension Specialist; PCP Internal Medicine; Visit Provider Internal Medicine
DX: Z20.822 Contact with and (suspected) exposure to COVID-19 (principal); E11.21 Type 2 diabetes mellitus with diabetic nephropathy; E11.42 Type 2 diabetes mellitus with diabetic polyneuropathy; E78.5 Hyperlipidemia, unspecified; E55.9 Vitamin D deficiency, unspecified
CPT/HCPCS: 36415; 80053; 80061; 82043; 82306; 85025; U0003; U0005

== ENCOUNTER 2021-01-18 14:00 | Outpatient (RCR) | payer OTHER, SELFPAY ==
--- NOTE | ~2021-01-18 | XR_ITS ---
EXAMINATION: XR FOOT, RIGHT CLINICAL INFORMATION: Nonhealing foot ulcer. COMPARISON: Prior radiographs, most recently 11/19/2020. TECHNIQUE: AP, lateral, and oblique views of the right foot. FINDINGS: Again, there has been a prior amputation of the right third toe. There is moderate osteoarthritic change of the interphalangeal joint of the great toe. There is stable medial subluxation of the first proximal phalanx relative to the first metatarsal head. There is bunion formation of the first metatarsal head. No focal erosion or periosteal thickening is seen. There is no right ankle joint effusion. Boehler's angle is normal. There are tiny posterior and plantar calcaneal spurs. There are degenerative changes of the dorsal midfoot. There is soft tissue ulceration seen of the plantar forefoot on the lateral view. No soft tissue gas or foreign body is seen. XR/XR foot RT min 3V IMPRESSION: No radiographic evidence of acute osteomyelitis. There are degenerative and postoperative changes, as above.
--- NOTE | ~2021-01-18 | XR_ITS ---
EXAMINATION: XR FOOT, RIGHT CLINICAL INFORMATION: Wound right foot. COMPARISON: Right foot 01/22/2021 TECHNIQUE: 3 views of the right foot. FINDINGS: Prior amputation of the third toe at the distal third metatarsal. No acute abnormality. No fracture. No focal bone lesion or abnormal periosteal reaction. No radiographic evidence for osteomyelitis. Small plantar calcaneal spur. Mild degenerative change of the IP joint of the great toe. Stable degenerative change of the first metatarsal phalangeal joint. Stable mild degenerative change of the mid tarsal joints. XR/XR foot RT 2V IMPRESSION: No acute abnormality of the right foot. No change since prior study 01/22/2021.
[2021-01-22 14:58] LABS: MANUAL DIFF FLAG NO
[2021-01-22 15:02] LABS: Basophils Absolute Auto 0.1 X10*3/uL (0.0-0.2); Basophils Percent Auto 0.4 % (0-2); Eosinophils Absolute Auto 0.4 X10*3/uL (0.0-0.4); Hematocrit 34.3 % (42-52); Hemoglobin 10.9 g/dl (14.0-18.0); Imm Gran Abs Auto 0.05 X10*3/uL (0.00-0.03); Imm Gran Pct Auto 0.4 % (0.0-0.4); Lymphocytes Percent Auto 14.9 % (20-40); Mean Corpuscular HGB Conc 31.8 g/dl (31.0-36.0); Mean Corpuscular Hemoglobin 28.1 pg (27.0-33.0); Mean Corpuscular Volume 88.4 fL (80-98); Mean Platelet Volume 9.2 fL (9.4-12.4); Monocytes Absolute Auto 1.3 X10*3/uL (0.1-1.2); Neutrophils Absolute Auto 9.4 X10*3/uL (2.0-8.3); Neutrophils Percent Auto 71.3 % (45-73); Platelet Count 455 X10*3/uL (160-400); Red Blood Count 3.88 X10*6/uL (4.60-5.80); Red Cell Distribution Width 15.1 % (11.0-16.0); White Blood Count 13.2 X10*3/uL (4.8-10.8)
[2021-01-22 15:12] LABS: Estimated Average Glucose 154 mg/dL; Hemoglobin A1C 151.8884 umol/L
[2021-01-22 15:30] LABS: Anion Gap 12 (12-20); Blood Urea Nitrogen 31 mg/dL (9-16); C Reactive Protein 3.05 mg/dL (< or = 0.50); Calcium 8.3 mg/dL (8.4-10.2); Carbon Dioxide 26 mmol/L (22-29); Chloride 106 mmol/L (96-108); Estimated Glomerular Filt Rate 35; Glucose Random 162 mg/dL (60-115); Potassium 4.2 mmol/L (3.3-5.1); Sodium 140 mmol/L (135-145)
[2021-01-22 15:53] LABS: Erythrocyte Sedimentation Rate 62 MM/HR (0-15)
== END 2021-06-15 13:32 | disposition home or self-care (01) ==
LOC: HO.WCC 14:00
PROVIDERS: PCP Internal Medicine; Visit Provider Physician Assistant
DX: E11.621 Type 2 diabetes mellitus with foot ulcer (principal); L97.512 Non-pressure chronic ulcer of other part of right foot with fat layer exposed; E11.43 Type 2 diabetes mellitus with diabetic autonomic (poly)neuropathy
CPT/HCPCS: 11042; 15275; 36415; 73620; 73630; 80048; 83036; 84134; 85025; 85652; 86140; 87071; 87077; 87147; 87186; 87205; 99212; Q4101

== ENCOUNTER 2021-01-29 14:03 | Outpatient (REF) | payer OTHER, SELFPAY ==
--- NOTE | ~2021-01-29 | MR_ITS ---
EXAMINATION: MRI FOOT WITHOUT AND WITH CONTRAST, RIGHT CLINICAL INFORMATION: Nonhealing wound. COMPARISON: Radiographs 01/22/2021. TECHNIQUE: MRI without and with intravenous administration of 10 mL of Gadavist is performed on the right foot. FINDINGS: The skin marker is placed over the plantar aspect of the forefoot, in the location of a shallow ulceration plantar to the 2nd metatarsal head. There is no abscess. Reticular edema and enhancement of the subcutaneous fat extending to the 1st and 2nd interspaces is compatible with cellulitis. There is no evidence of underlying osteomyelitis. No significant joint effusion. Postsurgical changes related to the amputation of the 3rd toe. Moderate degenerative changes of the 1st MTP joint/hallux sesamoid complex, and interphalangeal joint. Chronic pressure reaction at the plantar/lateral aspect of the 5th metatarsal head. MR/MR foot RT wo/w con IMPRESSION: No abscess or evidence of osteomyelitis.
== END 2021-01-29 14:04 | disposition home or self-care (01) ==
LOC: HO.MRI 14:03
PROVIDERS: Visit Provider Physician Assistant
DX: L97.411 Non-pressure chronic ulcer of right heel and midfoot limited to breakdown of skin (principal); E11.621 Type 2 diabetes mellitus with foot ulcer
CPT/HCPCS: 73720; A9585

== ENCOUNTER → 2021-02-04 08:27 | Outpatient (BNVA) | payer OTHER, SELFPAY | PROVIDERS: PCP Internal Medicine; Visit Provider Nurse Practitioner Gerontology | DX: E11.65 Type 2 diabetes mellitus with hyperglycemia (principal); E11.21 Type 2 diabetes mellitus with diabetic nephropathy; E11.42 Type 2 diabetes mellitus with diabetic polyneuropathy; E11.3399 Type 2 diabetes mellitus with moderate nonproliferative diabetic retinopathy without macular edema, unspecified eye; E11.22 Type 2 diabetes mellitus with diabetic chronic kidney disease; I12.9 Hypertensive chronic kidney disease with stage 1 through stage 4 chronic kidney disease, or unspecified chronic kidney disease; N18.32 Chronic kidney disease, stage 3b; E78.5 Hyperlipidemia, unspecified; E22.1 Hyperprolactinemia; Z79.4 Long term (current) use of insulin | CPT/HCPCS: 82947; 99212 ==

== ENCOUNTER → 2021-02-10 10:04 | Outpatient (BNVA) | payer OTHER, SELFPAY | PROVIDERS: PCP Internal Medicine; Visit Provider Internal Medicine | DX: M72.2 Plantar fascial fibromatosis (principal); S91.301A Unspecified open wound, right foot, initial encounter; B95.1 Streptococcus, group B, as the cause of diseases classified elsewhere; B95.8 Unspecified staphylococcus as the cause of diseases classified elsewhere; Y83.9 Surgical procedure, unspecified as the cause of abnormal reaction of the patient, or of later complication, without mention of misadventure at the time of the procedure; Y93.9 Activity, unspecified; Y92.9 Unspecified place or not applicable; Y99.8 Other external cause status; E11.65 Type 2 diabetes mellitus with hyperglycemia; E11.42 Type 2 diabetes mellitus with diabetic polyneuropathy; E11.3399 Type 2 diabetes mellitus with moderate nonproliferative diabetic retinopathy without macular edema, unspecified eye; E11.22 Type 2 diabetes mellitus with diabetic chronic kidney disease; N18.9 Chronic kidney disease, unspecified; E66.01 Morbid (severe) obesity due to excess calories; E78.5 Hyperlipidemia, unspecified; E55.9 Vitamin D deficiency, unspecified; E21.3 Hyperparathyroidism, unspecified; Z88.2 Allergy status to sulfonamides; Z89.421 Acquired absence of other right toe(s) | CPT/HCPCS: 99202; 99212 ==

== ENCOUNTER 2021-03-24 08:43 | Outpatient (REF) | payer OTHER, SELFPAY ==
[2021-03-24 09:59] LABS: MANUAL DIFF FLAG NO
[2021-03-24 10:01] LABS: Basophils Absolute Auto 0.1 X10*3/uL (0.0-0.2); Basophils Percent Auto 0.4 % (0-2); Eosinophils Absolute Auto 0.3 X10*3/uL (0.0-0.4); Eosinophils Percent Auto 2.5 % (0-4); Hematocrit 35.7 % (42-52); Hemoglobin 11.7 g/dl (14.0-18.0); Imm Gran Abs Auto 0.04 X10*3/uL (0.00-0.03); Imm Gran Pct Auto 0.3 % (0.0-0.4); Lymphocytes Absolute Auto 2.3 X10*3/uL (1.2-4.9); Lymphocytes Percent Auto 19.5 % (20-40); Mean Corpuscular HGB Conc 32.8 g/dl (31.0-36.0); Mean Corpuscular Hemoglobin 29.1 pg (27.0-33.0); Mean Corpuscular Volume 88.8 fL (80-98); Mean Platelet Volume 9.4 fL (9.4-12.4); Monocytes Absolute Auto 0.9 X10*3/uL (0.1-1.2); Monocytes Percent Auto 7.7 % (2-11); Neutrophils Absolute Auto 8.1 X10*3/uL (2.0-8.3); Neutrophils Percent Auto 69.6 % (45-73); Platelet Count 423 X10*3/uL (160-400); Red Blood Count 4.02 X10*6/uL (4.60-5.80); Red Cell Distribution Width 16.4 % (11.0-16.0); White Blood Count 11.7 X10*3/uL (4.8-10.8)
[2021-03-24 10:05] LABS: Albumin Level 3.4 g/dL (3.5-5.0); Calcium 8.8 mg/dL (8.4-10.2)
[2021-03-24 10:14] LABS: Alanine Aminotransferase 53 U/L (0-40); Albumin Level 3.4 g/dL (3.5-5.0); Alkaline Phosphatase 86 U/L (39-117); Anion Gap 10 (12-20); Aspartate Amino Transferase 39 U/L (5-37); Bilirubin Total 0.5 mg/dL (0.0-1.0); Blood Urea Nitrogen 24 mg/dL (9-16); Calcium 8.5 mg/dL (8.4-10.2); Carbon Dioxide 27 mmol/L (22-29); Chloride 106 mmol/L (96-108); Estimated Glomerular Filt Rate 49; Glucose Fasting 150 mg/dL (60-99); Potassium 4.2 mmol/L (3.3-5.1); Sodium 139 mmol/L (135-145); Total Protein 6.8 g/dL (6.5-8.0)
== END 2021-03-24 08:44 | disposition home or self-care (01) ==
LOC: HO.10HDL 08:43
PROVIDERS: Absent Provider Internal Medicine; Referring Provider Internal Medicine Hypertension Specialist; Visit Provider Internal Medicine Endocrinology, Diabetes & Metabolism
DX: E55.9 Vitamin D deficiency, unspecified (principal); D64.9 Anemia, unspecified; E11.21 Type 2 diabetes mellitus with diabetic nephropathy
CPT/HCPCS: 36415; 80053; 82040; 82310; 85025

== ENCOUNTER 2021-04-30 13:32 | Outpatient (REF) | payer OTHER, SELFPAY ==
--- NOTE | ~2021-04-30 | US_ITS ---
EXAMINATION: US VENOUS ULTRASOUND WITH DOPPLER LOWER EXTREMITY, RIGHT CLINICAL INFORMATION: Pain and edema right leg. Assess for occult DVT. History along the right foot. COMPARISON: Radiographs right foot 04/26/2021, MR right foot 01/29/2021, CT abdomen and pelvis 11/16/2018, bilateral leg venous ultrasound 07/31/2015. TECHNIQUE: Ultrasound of the deep veins is performed from the hip to the calf with compression sonography and color and pulse Doppler assessment. Spectral analysis with color-flow imaging is performed. FINDINGS: There is normal venous compression and respiratory variation and augmented flow. The visualized common femoral vein, superficial femoral vein, profunda femoral vein, popliteal vein, and the trifurcation region shows no evidence of deep venous thrombosis. There is no popliteal fossa cyst. No edema tracking in soft tissue planes or visible soft tissue fluid collection. There are some prominent nodes in the right inguinal region, largest 2.4 cm short axis with normal amparo architecture and color flow. This likely represents reactive changes from the right foot wound. US/US venous duplex LE RT IMPRESSION: No DVT demonstrated in the right lower extremity.
== END 2021-04-30 13:33 | disposition home or self-care (01) ==
LOC: HO.US 13:32
PROVIDERS: PCP Internal Medicine; Visit Provider Physician Assistant
DX: M79.661 Pain in right lower leg (principal); R60.0 Localized edema
CPT/HCPCS: 93971

== ENCOUNTER 2021-05-11 13:18 | Inpatient (IN) | payer OTHER, SELFPAY ==
--- NOTE | ~2021-05-11 | US_ITS ---
EXAMINATION: US RETROPERITONEAL LIMITED (RENAL ONLY) CLINICAL INFORMATION: Acute kidney insufficiency. COMPARISON: Previous renal ultrasound most recent October 2018 TECHNIQUE: Grayscale and color imaging of the kidneys FINDINGS: RIGHT KIDNEY: 12.1 x 5.2 x 4.9 cm (SAG x AP x TRV). The kidney is normal in size, contour, and echogenicity. Renal cortical thickness is normal. No calculi or focal parenchymal lesions. No hydronephrosis. LEFT KIDNEY: 11.7 x 5.9 x 5.6 cm (SAG x AP x TRV). The kidney is normal in size, contour, and echogenicity. Renal cortical thickness is normal. No calculi or focal parenchymal lesions. No hydronephrosis. US/US renal BI IMPRESSION: Normal renal ultrasound.
--- NOTE | ~2021-05-11 | US_ITS ---
EXAMINATION: ULTRASOUND ARTERIAL DUPLEX LOWER EXTREMITY BILATERAL CLINICAL INFORMATION: Diabetes mellitus, foot ulcer. Rule out peripheral arterial disease. COMPARISON: CT scan of the abdomen and pelvis dated 11/16/2018. TECHNIQUE: Multiple 2-D grayscale and duplex Doppler ultrasound images of the arteries of the bilateral lower extremities were obtained. FINDINGS: Mild to moderate echogenic epistatic plaque is seen bilaterally. Triphasic waveforms are seen in the right lower extremity except in the right posterior tibial artery demonstrating biphasic waveforms. Biphasic waveforms are seen throughout the left lower extremity. The systolic arterial velocities are as follows in centimeters per second: Common femoral: Right 169. Left 141. Profunda femoral: Right 87. Left 87. Proximal superficial femoral: Right 109. Left 103. Mid superficial femoral: Right 198. Left 111. Distal superficial femoral: Right 226. Left 116. Popliteal: Right 106. Left 187. Posterior tibial: Right 88. Left 65. Prominent reniform inguinal lymph nodes with thin cortices and fatty poly are seen bilaterally measuring up to 4.0 cm on the right and 3.4 cm on the left. US/US arterial duplex LE BI IMPRESSION: 1. Mild to moderate stenosis by velocity in the bilateral common femoral arteries as well as in the mid to distal right superficial femoral arteries and right popliteal artery. Velocities are greatest in the distal segment of the right superficial femoral artery. 2. Enlarged lymph nodes bilaterally demonstrate benign features and are likely reactive. This correlates with previous CT findings.
--- NOTE | ~2021-05-11 | XR_ITS ---
EXAMINATION: XR FOOT, RIGHT CLINICAL INFORMATION: Diabetic foot ulcer near plantar side second MTP COMPARISON: Radiographs right foot 04/26/2021, 01/22/2021. TECHNIQUE: AP, lateral, and oblique views of the right foot. FINDINGS: There is a pathologic fracture involving the neck second metatarsal. There may be fine comminution at the fracture site. There are scattered small lucencies involving the cortical bone at the site of fracture and also at the base proximal phalanx. Some fine periosteal reaction is present along the distal shaft second metatarsal. The distal fracture fragment is displaced laterally by 3/4r bone diameter. There is no gas seen tracking in the soft tissues. There is been prior amputation third digit. The plantar side distal third metatarsal may have some early erosive change since prior radiographs. There are no other fractures. Posterior and plantar calcaneal spurs and dorsal spurring talonavicular region again seen. Results called to STEVE Rousseau in the emergency department at 1453 hours. XR/XR foot RT min 3V IMPRESSION: 1. Pathologic fracture of neck second metatarsal, changes of osteomyelitis at fracture site. 2. Prior amputation third digit. Question early cortical erosion plantar side metatarsal head. 3. No gas tracking in soft tissues.
--- NOTE | ~2021-05-11 | IR_ITS ---
PROCEDURE: IR INSERTION OF TUNNEL CATHETER CLINICAL INFORMATION: Knees long-term antibiotics for CKD COMPARISON: None TECHNIQUE: Following explaining ultrasound fluoroscopy-guided placement of Antunez catheter procedure, benefits and risk, a written consent was obtained patient was placed supine on fluoroscopy table and preliminary ultrasound imaging was obtained through the right neck. An optimal site was selected and marked. Marked site was cleaned and draped in usual sterile manner. 1% lidocaine was injected at puncture site. Through a small skin incision a single wall needle was advanced and right jugular vein was punctured under sterile ultrasound guidance. After obtaining venous return a thin guidewire was advanced through the needle and needle withdrawn. A 5 Ghanaian dilator with sheath was advanced over the guidewire and the entire unit was anchored to the drape. Approximately 1 gauze length lateral and inferior along the right chest wall was marked. The marked area was infiltrated 1% lidocaine. 1% lidocaine with epinephrine was injected subcutaneously from the right anterior chest wall lesion to the right neck lesion. A blunt tunneler attached to the catheter was advanced from the right anterior chest wall incision to the right neck incision and the entire unit including tunnel was pulled through the right anterior neck wall incision. The cuff of the catheter lies subcutaneous variously inside the chest wall incision. The catheter was sized to 30 cm. The 5 Ghanaian dilator and the wire were removed and a longer 0.035 J guidewire was advanced through the sheath into the IVC under fluoroscopy. The sheath was replaced with a 6 Ghanaian dilator and a peel-away sheath. The dilator and the guidewire was removed. The tunnel catheter was inserted through the peel-away sheath. The entire catheter was then inserted through the sheath and anchored to the skin while the peel-away sheath was removed. A single image was obtained documenting the chest tunneled catheter tip within the SVC. The Antunez catheter was then anchored to the skin with 3 0 nonabsorbable sutures. Absorbable 3 0 sutures were placed along the right anterior neck incision Sterile dressing applied along the right anterior chest wall and the right neck incision patient on procedure extremely well. Conscious sedation was administered during the exam and patient monitored for 28 minutes. All elements of maximal sterile barrier technique followed including use of cap, mask, sterile gown, sterile gloves, a sterile full body drape and hand hygiene. Also followed skin preparation with 2% chlorhexidine for cutaneous antisepsis, and sterile ultrasound preparation with sterile gel and probe cover when applicable. FINDINGS: On preliminary ultrasound imaging patient has a short neck and right jugular vein and the right carotid artery are adjacent to each other but widely patent. The 30 cm long Antunez single lumen tunneled catheter was inserted with its tip in the mid SVC. IR/IR cvc insert central tunnel IMPRESSION: Successful ultrasound and fluoroscopy-guided placement of a tunneled 30 cm long Antunez catheter with its tip in mid SVC ready for use.
--- NOTE | ~2021-05-11 | US_ITS ---
EXAMINATION: US ABDOMEN COMPLETE CLINICAL INFORMATION: Transaminitis. COMPARISON: CT abdomen/pelvis dated from 11/16/2018. TECHNIQUE: Real-time imaging of the abdominal viscera. FINDINGS: PANCREAS: Normal. ABDOMINAL AORTA: The proximal, mid, and distal segments are normal in caliber. INFERIOR VENA CAVA: Visualized portions are normal. LIVER: There is increased parenchymal echogenicity which limits evaluation of subtle lesions. Accounting for these limitations, no definite focal abnormalities are identified. There is no intrahepatic biliary ductal dilatation. GALLBLADDER: Cholecystectomy. COMMON BILE DUCT: Normal in caliber measuring 0.6 cm in diameter. RIGHT KIDNEY: Mild fullness of the pelvis without maddie hydronephrosis. No renal calculi or focal parenchymal lesions. The kidney measures 12.1 cm in maximum dimension. LEFT KIDNEY: Normal. No hydronephrosis. No renal calculi or focal parenchymal lesions. The kidney measures 11.6 cm in maximum dimension. SPLEEN: Normal. The spleen measures 12.5 cm in maximum dimension. FREE FLUID: None. US/US abdomen complete IMPRESSION: Evaluation is limited secondary to patient body habitus and shadowing from overlying bowel gas. There is increased hepatic parenchymal echogenicity which could be related with hepatic steatosis or hepatocellular disease. Ultrasound has decreased sensitivity for evaluation of focal liver lesions. Although, accounting for these limitations, none are definitely identified in this examination.
--- NOTE | ~2021-05-11 | CT_ITS ---
EXAMINATION: CT HEAD WITHOUT CONTRAST CLINICAL INFORMATION: Altered mental status COMPARISON: 01/23/2013 TECHNIQUE: Contiguous axial imaging was performed from the skull base to vertex without intravenous administration of contrast. This CT examination was performed using dose optimization techniques as appropriate, variously including the following: *Automated exposure control *Adjustment of mA and/or kV according to patient size (this includes techniques or standardized protocols for targeted exams where dose is matched to indication/reason for exam; i.e. extremities or head) *Use of iterative reconstruction technique DLP: 847 mGy-cm FINDINGS: There is no evidence of acute intracranial hemorrhage or territorial infarction. No abnormal mass effect or midline shift is seen. Forman to white matter differentiation is well preserved. No extra-axial fluid collections are identified. The ventricles are normal in size. There is no abnormal attenuation within the brain parenchyma. The osseous structures and soft tissues are normal. Partially visualized bilateral mastoid air cells. Slight opacification of the bilateral ethmoid air cells. CT/CT head/brain wo con IMPRESSION: No acute intracranial pathology.
--- NOTE | ~2021-05-11 | US_ITS ---
EXAMINATION: US VENOUS ULTRASOUND WITH DOPPLER LOWER EXTREMITY, RIGHT CLINICAL INFORMATION: Right lower leg swelling. COMPARISON: Right lower extremity DVT study done on 04/30/2021. TECHNIQUE: Ultrasound of the deep veins is performed from the hip to the calf with compression sonography and color and pulse Doppler assessment. Spectral analysis with color-flow imaging is performed. FINDINGS: There is normal venous compression and respiratory variation and augmented flow. The visualized common femoral vein, superficial femoral vein, profunda femoral vein, popliteal vein, and the trifurcation region shows no evidence of deep venous thrombosis. There is no significant popliteal fossa cyst. Incidental note is made of multiple morphologically normal-appearing enlarged right groin lymph nodes, similar to prior study. If the patient's symptoms persist, followup ultrasound in 5 days 7 days might be of value to exclude proximal propagation from a non-visualized calf vein. US/US venous duplex LE RT IMPRESSION: No DVT demonstrated in the right lower extremity, unchanged since prior study dated 04/30/2021. Multiple enlarged but morphologically normal-appearing right groin lymph nodes, similar to prior study dated 04/30/2021.
[2021-05-11 13:18] VITALS: BP 156/59; BP 160/74; PULSE 86; PULSE 89; RESP 20; TEMP 37.2; O2SAT 97; O2SAT 98; BMI 34.1
[2021-05-11 13:38] LABS: Glucose, Whole Blood 77 mg/dL (60-115)
--- NOTE | 2021-05-11 14:23 | ED.EXTPRO ---
HPI - Extremity Problem General Chief complaint: Wound/Laceration Stated complaint: LT LEG PAIN Time Seen by Provider: 05/11/21 14:01 Source: patient, EMS, RN notes reviewed and old records reviewed Mode of arrival: ambulatory Limitations: no limitations History of Present Illness HPI Narrative: 56-year-old male with a history of diabetes, nephropathy, chronic right plantar foot wound, history of right toe amputation, history of NEEMA on CPAP, CKD, history of [place]-en-Y gastric bypass who presents to the ED via EMS from [facility] where he reports worsening pain of the right foot for the last 1 week along with chills that go deep into my bones. He denies any recent trauma to the foot. He has been ambulating with his diabetic shoes. He reports increased swelling, warmth, and tenderness of the right foot. He has a draining ulcer on the bottom of his right foot. He denies any foul-smelling drainage but can't really tell. He goes to the wound clinic every Monday. He denies any fevers at home. He denies being on any antibiotics recently. He states his foot is darker in color and much more warm than usual for the last 1 week. MD Complaint: extremity pain and joint paint Onset (ago): week(s) (1) Pain Consistency: constant Location: right and other (foot) Severity scale (1-10): 8 Quality: stabbing Radiation: proximal Relieving factors: immobilization and rest Exacerbating factors: weight bearing, walking and palpation Associated symptoms: myalgias, arthralgias and other (chills) Related Data Home Medications Medication Instructions Recorded Confirmed blood sugar diagnostic #10 ea 04/01/20 03/25/21 bupropion HCl 300 mg 24 hr tablet, 300 mg PO DAILY 04/01/20 03/25/21 extended release fenofibrate 160 mg tablet 160 mg PO DAILY 04/01/20 03/25/21 multivitamin 1 tab PO DAILY 04/01/20 03/25/21 omega-3 fatty acids 1,000 mg 1,000 mg PO DAILY 04/01/20 03/25/21 capsule (Fish Oil Concentrate) trazodone 100 mg tablet 100 mg PO BEDTIME PRN tab 05/05/20 03/25/21 buspirone 7.5 mg tablet 7.5 mg PO BID 10/13/20 03/25/21 acetaminophen 325 mg tablet mg PO 10/28/20 03/25/21 insulin syringe-needle U-100 1/2 04/21/21 mL 31 gauge x 15/64 (BD Veo Insulin Syringe Ultra-Fine) Previous Rx's Medication Instructions Recorded blood sugar diagnostic (FreeStyle #25 ea 05/25/20 Precision Harshad Strips) alcohol swabs (Alcohol Prep Pads) 1 pad TOPICAL TID 30 Days #100 pad 09/25/20 calcium citrate 200 mg (950 mg) 400 mg PO BID 30 Days #120 tab 10/28/20 tablet acetaminophen 325 mg capsule 325 mg PO QID PRN 30 Days #120 cap 12/01/20 compression stockings #1 ea 12/23/20 cromolyn 4 % eye drops 1 drp OPHTHALMIC (EYE) QID 6 Days 12/23/20 #10 ml diabetic shoe inserts #1 ea 12/23/20 fluticasone propionate 50 1 spray INTRANASAL DAILY 30 Days 12/23/20 mcg/actuation nasal #16 g spray,suspension gabapentin 300 mg capsule 300 mg PO Q8H 30 Days #90 cap 12/23/20 blood sugar diagnostic (FreeStyle #150 ea 02/04/21 Lite Strips) cholecalciferol (vitamin D3) 25 25 mcg PO DAILY #30 cap 02/04/21 mcg (1,000 unit) capsule dulaglutide 3 mg/0.5 mL 3 mg (0.5 mL) SUBCUT QWEEK 28 Days 02/04/21 subcutaneous pen injector #2 ml (Trulicity) lancets #200 ea 02/04/21 loratadine 10 mg tablet 10 mg PO DAILY #30 tab 03/04/21 Humalog U-100 Insulin 100 unit/mL See Rx Instructions SUBCUT DAILY 03/29/21 subcutaneous solution (insulin 30 Days #40 ml NS lispro) insulin glargine 100 unit/mL (3 28 unit (0.28 mL) SUBCUT QPM #15 ml 04/21/21 mL) subcutaneous pen (Lantus Solostar U-100 Insulin) pen needle, diabetic 32 gauge x #30 ea 04/21/21 (BD Ultra-Fine Roberta Pen Needle) Allergies Allergy/AdvReac Type Severity Reaction Status Date / Time Sulfa (Sulfonamide Allergy Intermediate hives Verified 03/25/21 13:42 Antibiotics) [SULFA (SULFONAMIDE ANTIBIOTICS)] Review of Systems Review of Systems: Constitutional: No Fever, + Chills ENT/Mouth: No sore throat, No Rhinorrhea, No Swallowing Difficulty Eyes: No Eye Pain, No Swelling, No Redness Cardiovascular: No Chest Pain, No SOB, No Orthopnea, + Edema Respiratory: No Cough, No Sputum, No Wheezing, No dyspnea Gastrointestinal: No Nausea, No Vomiting, No Diarrhea, No abdominal Pain Genitourinary: No Dysuria, No Urinary Frequency, No Hematuria Musculoskeletal: + joint pain, + Myalgias Skin: + Skin Lesions, No rash Neuro: No Weakness, No Numbness, No Dizziness, No Headache Psych: No Anxiety/Panic, No Depression Heme/Lymph: No Bruising, No Lymphadenopathy Endocrine: No Polyuria, No Polydipsia PMFSH Past Medical History Medical History (Updated 05/11/21 @ 16:12 by Cora Tipton NP) CKD (chronic kidney disease) Diabetic polyneuropathy associated with type 2 diabetes mellitus Dyslipidemia 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 deficiency Moderate non-proliferative diabetic retinopathy Morbid obesity NEEMA on CPAP [id number] syndrome Vitamin D deficiency Surgical History History of eye surgery 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 History of tonsillectomy and adenoidectomy Hx laparoscopic cholecystectomy S/P cataract surgery S/P debridement S/P tooth extraction Status post amputation of toe Family History Family History Father Cerebral aneurysm CVD (cardiovascular disease) Stroke Mother DM (diabetes mellitus) Stroke Brother No problems noted. Brother No problems noted. Son No problems noted. Daughter In good health Maternal Grandmother DM (diabetes mellitus) Stroke Social History Social History Housing: Apartment Alcohol intake: never Patient Tobacco Use Status: Never used Tobacco e-Cigarette/Vaping Use: Never Used Second Hand Smoke Exposure: No Use of substances other than those prescribed or required for medical reasons: No Substance Use Type: Crack/Cocaine Advance Directives: No Advance Directives Information Provided: Yes service: No Current occupational status: disabled Physical Exam Vital Signs: Vital Signs: Last Vital Signs Temp 99.0 F 05/11/21 13:18 Pulse 89 05/11/21 13:18 Resp 20 05/11/21 13:18 BP 156/59 H 05/11/21 13:18 Pulse Ox 98 05/11/21 13:18 BMI result Body Mass Index 34.1 Appearance: Alert. Oriented X3. No acute distress. Eyes: Pupils equal, round and reactive to light. ENT: Pharynx normal. Neck: Normal inspection. Neck supple. CVS: Normal heart rate and rhythm. Pulses normal. Respiratory: No respiratory distress. Breath sounds normal. Abdomen: Soft and nontender. +BS x4 Skin: Skin warm and dry. Normal skin color. Normal skin turgor. No rashes. Extremities: Right lower extremity with 1 to 2+ pitting edema of the distal lower leg with significant warmth of lower leg and top of the foot. Ankle and top of the foot are tender to touch. The plantar aspect of the right foot with a 1 cm ulcer with central pustule that is mobile, foul-smelling yellow drainage centrally. surrounding area is white and macerated Neuro: Oriented X 3. Grossly normal, nonfocal. Course Course Course Narrative: 56-year-old male with history of diabetes and chronic right plantar foot wound presents with worsening foot pain, swelling, warmth of the right lower leg for the last 1 week. Concern for cellulitis versus possible osteomyelitis. The wound of the right plantar foot is having foul-smelling drainage. He has no fever or tachycardia on arrival. Will get x-ray as well as cultures in lab workup for further evaluation. Anticipate he may require admission. Will also get repeat ultrasound of the right leg to rule out DVT. Reevaluation(s) Reevaluation #1: X-ray showing pathologic fracture with osteomyelitis. WBC 16. Will give IV vancomycin and Zosyn for broad coverage. Wound was cultured. Plan for admission for IV antibiotics and surgical consult. Patient agrees with plan. MDM - Extremity (Nontraumatic) Lab Data Result diagrams: 05/11/21 14:19 05/11/21 14:19 Labs: Lab Results 05/11/21 05/11/21 05/11/21 Range/Units 13:35 14:19 14:19 WBC 16.0 H (4.8-10.8) X10*3/uL RBC 3.67 L (4.60-5.80) X10*6/uL Hgb 10.4 L (14.0-18.0) g/dl Hct 32.5 L (42.0-52.0) % MCV 88.6 (80.0-98.0) fL MCH 28.3 (27.0-33.0) pg MCHC 32.0 (31.0-36.0) g/dl RDW 14.1 (11.0-16.0) % Plt Count 696 H (160-400) X10*3/uL MPV 8.5 L (9.4-12.4) fL Immature Gran % (Auto) 0.5 H (0.0-0.4) % Neut % (Auto) 83.6 H (45-73) % Lymph % (Auto) 6.2 L (20-40) % [place] % (Auto) 8.1 (2-11) % Eos % (Auto) 1.3 (0-4) % Baso % (Auto) 0.3 (0-2) % Lymph # (Auto) 1.0 L (1.2-4.9) X10*3/uL [place] # (Auto) 1.3 H (0.1-1.2) X10*3/uL Eos # (Auto) 0.2 (0.0-0.4) X10*3/uL Baso # (Auto) 0.1 (0.0-0.2) X10*3/uL Abs Immat Gran (auto) 0.08 H (0.00-0.03) X10*3/uL Absolute Neuts (auto) 13.4 H (2.0-8.3) x10*3/uL Absolute Nucleated RBC 0.000 (0.0-0.012) X10*3/uL Nucleated RBC % (auto) 0.0 (0.0-0.2) /100WBC Sodium 136 (135-145) mmol/L Potassium 4.4 (3.3-5.1) mmol/L Chloride 103 (96-108) mmol/L Carbon Dioxide 28 (22-29) mmol/L Anion Gap 9 L (12-20) BUN 18 H (9-16) mg/dL Creatinine 1.59 H (0.5-1.4) mg/dL Estim Creat Clear Calc 54.3 Estimated GFR 45 POC Glucose 77 (60-115) mg/dL Random Glucose 86 D (60-115) mg/dL Lactic Acid (0.5-2.0) mmol/L Calcium 7.8 L D (8.4-10.2) mg/dL Magnesium 2.0 (1.6-2.6) mg/dL Total Bilirubin 0.4 (0.0-1.0) mg/dL Direct Bilirubin 0.2 (0.0-0.5) mg/dL AST 33 (5-37) U/L ALT 47 H (0-40) U/L Alkaline Phosphatase 77 (39-117) U/L Total Protein 6.9 (6.5-8.0) g/dL Albumin 2.7 L D (3.5-5.0) g/dL Urine Color Urine Appearance Urine pH (5.0-8.0) Ur Specific [place] (1.005-1.025) Urine Protein (NEG-TRACE) MG/DL Urine Glucose (UA) (NEG) MG/DL Urine Ketones (NEG) MG/DL Urine Blood (NEG) Urine Nitrite (NEG) Ur Leukocyte Esterase (NEG) Urine RBC (0) /HPF Urine WBC (0-4) /HPF Ur Squamous Epith Cells /LPF Urine Bacteria /LPF Hyaline Casts /LPF COVID-19 (BLANCA) (Negative) COVID-19 Clin Com 05/11/21 05/11/21 05/11/21 Range/Units 14:19 14:41 15:36 WBC (4.8-10.8) X10*3/uL RBC (4.60-5.80) X10*6/uL Hgb (14.0-18.0) g/dl Hct (42.0-52.0) % MCV (80.0-98.0) fL MCH (27.0-33.0) pg MCHC (31.0-36.0) g/dl RDW (11.0-16.0) % Plt Count (160-400) X10*3/uL MPV (9.4-12.4) fL Immature Gran % (Auto) (0.0-0.4) % Neut % (Auto) (45-73) % Lymph % (Auto) (20-40) % [place] % (Auto) (2-11) % Eos % (Auto) (0-4) % Baso % (Auto) (0-2) % Lymph # (Auto) (1.2-4.9) X10*3/uL [place] # (Auto) (0.1-1.2) X10*3/uL Eos # (Auto) (0.0-0.4) X10*3/uL Baso # (Auto) (0.0-0.2) X10*3/uL Abs Immat Gran (auto) (0.00-0.03) X10*3/uL Absolute Neuts (auto) (2.0-8.3) x10*3/uL Absolute Nucleated RBC (0.0-0.012) X10*3/uL Nucleated RBC % (auto) (0.0-0.2) /100WBC Sodium (135-145) mmol/L Potassium (3.3-5.1) mmol/L Chloride (96-108) mmol/L Carbon Dioxide (22-29) mmol/L Anion Gap (12-20) BUN (9-16) mg/dL Creatinine (0.5-1.4) mg/dL Estim Creat Clear Calc Estimated GFR POC Glucose (60-115) mg/dL Random Glucose (60-115) mg/dL Lactic Acid 1.0 (0.5-2.0) mmol/L Calcium (8.4-10.2) mg/dL Magnesium (1.6-2.6) mg/dL Total Bilirubin (0.0-1.0) mg/dL Direct Bilirubin (0.0-0.5) mg/dL AST (5-37) U/L ALT (0-40) U/L Alkaline Phosphatase (39-117) U/L Total Protein (6.5-8.0) g/dL Albumin (3.5-5.0) g/dL Urine Color YELLOW Urine Appearance CLEAR Urine pH 5.5 (5.0-8.0) Ur Specific [place] >= 1.030 H (1.005-1.025) Urine Protein 3+ H (NEG-TRACE) MG/DL Urine Glucose (UA) NEG (NEG) MG/DL Urine Ketones NEG (NEG) MG/DL Urine Blood 1+ H (NEG) Urine Nitrite NEG (NEG) Ur Leukocyte Esterase NEG (NEG) Urine RBC 1-4 (0) /HPF Urine WBC 0-2 (0-4) /HPF Ur Squamous Epith Cells NONE /LPF Urine Bacteria TRACE /LPF Hyaline Casts 0-2 /LPF COVID-19 (BLANCA) Negative (Negative) COVID-19 Clin Com See Note Discharge Plan Discharge Clinical Impression: Pathological fracture of foot Qualifiers: Pathology associated with fracture: other disease Encounter type: subsequent encounter Laterality: right Fracture healing: with delayed healing Qualified Code(s): M84.674G - Pathological fracture in other disease, right foot, subsequent encounter for fracture with delayed healing Osteomyelitis Qualifiers: Osteomyelitis type: unspecified type Osteomyelitis location: foot Laterality: right Qualified Code(s): M86.9 - Osteomyelitis, unspecified Patient Disposition: Admitted As Inpatient
[2021-05-11 14:24] LABS: MANUAL DIFF FLAG NO
[2021-05-11 14:31] LABS: Basophils Absolute Auto 0.1 X10*3/uL (0.0-0.2); Basophils Percent Auto 0.3 % (0-2); Eosinophils Absolute Auto 0.2 X10*3/uL (0.0-0.4); Eosinophils Percent Auto 1.3 % (0-4); Hematocrit 32.5 % (42.0-52.0); Hemoglobin 10.4 g/dl (14.0-18.0); Imm Gran Abs Auto 0.08 X10*3/uL (0.00-0.03); Imm Gran Pct Auto 0.5 % (0.0-0.4); Lymphocytes Percent Auto 6.2 % (20-40); Mean Corpuscular Hemoglobin 28.3 pg (27.0-33.0); Mean Corpuscular Volume 88.6 fL (80.0-98.0); Mean Platelet Volume 8.5 fL (9.4-12.4); Monocytes Absolute Auto 1.3 X10*3/uL (0.1-1.2); Monocytes Percent Auto 8.1 % (2-11); Neutrophils Absolute Auto 13.4 x10*3/uL (2.0-8.3); Neutrophils Percent Auto 83.6 % (45-73); Platelet Count 696 X10*3/uL (160-400); Red Blood Count 3.67 X10*6/uL (4.60-5.80); Red Cell Distribution Width 14.1 % (11.0-16.0)
[2021-05-11 14:43] LABS: Alanine Aminotransferase 47 U/L (0-40); Albumin Level 2.7 g/dL (3.5-5.0); Alkaline Phosphatase 77 U/L (39-117); Anion Gap 9 (12-20); Aspartate Amino Transferase 33 U/L (5-37); Bilirubin Direct 0.2 mg/dL (0.0-0.5); Bilirubin Total 0.4 mg/dL (0.0-1.0); Blood Urea Nitrogen 18 mg/dL (9-16); Calcium 7.8 mg/dL (8.4-10.2); Carbon Dioxide 28 mmol/L (22-29); Chloride 103 mmol/L (96-108); Creatinine Clr Calc Pharmacy 54.3; Estimated Glomerular Filt Rate 45; Glucose Random 86 mg/dL (60-115); Potassium 4.4 mmol/L (3.3-5.1); Sodium 136 mmol/L (135-145); Total Protein 6.9 g/dL (6.5-8.0)
[2021-05-11 15:04] LABS: COVID-19 Test Negative (Negative)
[2021-05-11] MEDS: Piperacillin Sodium/Tazobactam 3.375 GM in 0.9 % Sodium Chloride 50 ML IV (15:46)
[2021-05-11 15:48] LABS: Appearance Urine CLEAR; Color Urine YELLOW; Glucose Urine UA NEG (NEG); Leukocyte Esterase Urine NEG (NEG); Nitrite Urine NEG (NEG); PH 5.5 (5.0-8.0); Specific Gravity - Urine >= 1.030 (1.005-1.025); UACC Culture Trigger NO; Urine Blood 1+ (NEG); Urine Ketones NEG (NEG); Urine Protein 3+ MG/DL (NEG-TRACE)
[2021-05-11] MEDS: vancomycin HCL 1,250 MG in 0.9 % Sodium Chloride 250 ML 166.67 MG IV (16:03)
--- NOTE | 2021-05-11 16:11 | PM.IMHP ---
History of Present Illness Date of Service: 05/11/21 <Cora Tipton NP - Last Filed: 05/11/21 16:26> Attending physician on admission: Jose Welch <Cora Tipton NP - Last Filed: 05/11/21 16:26> Chief Complaint: foot pain <Cora Tipton NP - Last Filed: 05/11/21 16:26> 56-year-old Kosovan-speaking male with complaints of right plantar foot pain. He reported some chills without fever. He reported that he goes to the wound clinic and recently he had a skin graft for fake Skin placed on the wound and after that he noticed that there was more drainage and the pain was worse this was approximately a week ago. He has had this wound for over a year but imaging studies have not showed osteomyelitis. Today in the ER foot x-ray shows pathological fracture of 2nd metatarsal with changes of osteomyelitis. White blood cell count 16.0, no fever, normal lactic acid. He was given vancomycin, Zosyn in the ER. He will be admitted for further management and treatment of acute osteomyelitis to right foot diabetic foot wound. <Cora Tipton NP - Last Filed: 05/11/21 16:26> Review of Systems Review of Systems: Denies any recent fever chills or decrease in appetite respiratory denies any shortness of breath coverage production cardiovascular Denied chest pain gastrointestinal denies any dysphagia abdominal pain nausea vomiting or diarrhea genitourinary denies any dysuria frequency or hematuria musculoskeletal right foot plantar wound neuropsych denies any weakness or seizures all other systems reviewed are negative <Cora Tipton NP - Last Filed: 05/11/21 16:26> [facility] Medical History: Medical History CKD (chronic kidney disease) Diabetic polyneuropathy associated with type 2 diabetes mellitus Dyslipidemia 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 deficiency Moderate non-proliferative diabetic retinopathy Morbid obesity NEEMA on CPAP [id number] syndrome Vitamin D deficiency <TRINO Garibay Last Filed: 05/11/21 16:26> Family History: Family History Father Cerebral aneurysm CVD (cardiovascular disease) Stroke Mother DM (diabetes mellitus) Stroke Brother No problems noted. Brother No problems noted. Son No problems noted. Daughter In good health Maternal Grandmother DM (diabetes mellitus) Stroke <Cora Tipton NP - Last Filed: 05/11/21 16:26> Surgical History: Surgical History History of eye surgery 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 History of tonsillectomy and adenoidectomy Hx laparoscopic cholecystectomy S/P cataract surgery S/P debridement S/P tooth extraction Status post amputation of toe <Cora Tipton NP - Last Filed: 05/11/21 16:26> Social History: Social History Housing: Apartment Alcohol intake: never Patient Tobacco Use Status: Never used Tobacco e-Cigarette/Vaping Use: Never Used Second Hand Smoke Exposure: No Use of substances other than those prescribed or required for medical reasons: No Substance Use Type: Crack/Cocaine Advance Directives: No Advance Directives Information Provided: Yes service: No Current occupational status: disabled <Cora Tipton NP - Last Filed: 05/11/21 16:26> Meds Allergies/Adverse reactions: Allergies Allergy/AdvReac Type Severity Reaction Status Date / Time Sulfa (Sulfonamide Allergy Intermediate hives Verified 03/25/21 13:42 Antibiotics) [SULFA (SULFONAMIDE ANTIBIOTICS)] <Cora Tipton NP - Last Filed: 05/11/21 16:26> Active Medications: Current Medications Acetaminophen (Acetaminophen 325 Mg Tablet) 650 mg PO Q6H PRN PRN Reason: Pain, Mild (Pain Scale 1-3) Vancomycin HCl 1,250 mg/ (Sodium Chloride) 250 mls @ 166.667 mls/hr IV ONCE ONE Stop: 05/11/21 16:14 Last Admin: 05/11/21 16:03 Dose: 166.67 mls/hr Documented by: Vancomycin HCl 1,000 mg/ (Sodium Chloride) 270 mls @ 270 mls/hr IV Q12H SKYLAR Morphine Sulfate (Morphine Sulfate 2 Mg/Ml Cartridge) 2 mg IVPUSH Q4H PRN; Protocol PRN Reason: Pain, Mild (Pain Scale 1-3) Ondansetron HCl (Ondansetron Hcl 4 Mg/2 Ml Vial) 4 mg IVPUSH Q8H PRN PRN Reason: Nausea and Vomiting Pharmacy Consult (Consult Rx Perform Med Rec) 1 each MISCELLANE ONCE PRN PRN Reason: Consult order Pharmacy Consult (Consult Rx Vancomycin Dosing) 1 each MISCELLANE DAILY PRN PRN Reason: Consult order Sodium Chloride (0.9 % Sodium Chloride Flush 3 Ml Syringe) 3 ml IVFLUSH QSHIFT SKYLAR <Cora Tipton NP - Last Filed: 05/11/21 16:26> Home medications: Home Medications Medication Instructions Recorded Confirmed Last Taken Type blood sugar diagnostic #10 ea 04/01/20 03/25/21 Unknown History insulin syringe-needle U-100 05/3004/21/21 Unknown History mL 31 gauge x 15/64 (BD Veo Insulin Syringe Ultra-Fine) dulaglutide 3 mg/0.5 mL 3 mg SUBCUT TU@1000 05/11/21 05/11/21 Unknown History subcutaneous pen injector (Trulicity) subcutaneous insulin pump (Omnipod 05/11/21 05/11/21 Unknown History Insulin Management) <Cora Tipton NP - Last Filed: 05/11/21 16:26> Physical Exam Vital Signs and Narrative: Vital Signs: Last Vital Signs Temp 99.0 F 05/11/21 13:18 Pulse 89 05/11/21 13:18 Resp 20 05/11/21 13:18 BP 156/59 H 05/11/21 13:18 Pulse Ox 98 05/11/21 13:18 BMI result Body Mass Index 34.1 <Cora Tipton NP - Last Filed: 05/11/21 16:26> Appearing in no acute distress head is normocephalic atraumatic eyes pupils are PERRLA sclera is anicteric mouth throat mucous membranes are intact and moist neck is supple no lymphadenopathy, no JVD noted lung sounds are clear to auscultation heart regular rate rhythm, clear S1, S2 positive bowel sounds, abdomen is soft, nontender neuro patient is alert x3, no focal deficits <Cora Tipton NP - Last Filed: 05/11/21 16:26> Results Labs CBC and Chem 7: : 05/12/21 06:50 05/12/21 06:50 <Cora Tipton NP - Last Filed: 05/11/21 16:26> Labs: Laboratory Results - last 24 hr 05/11/21 05/11/21 05/11/21 13:35 14:19 14:19 MCV 88.6 MCH 28.3 MCHC 32.0 RDW 14.1 Plt Count 696 H MPV 8.5 L Immature Gran % (Auto) 0.5 H Neut % (Auto) 83.6 H Lymph % (Auto) 6.2 L [place] % (Auto) 8.1 Eos % (Auto) 1.3 Baso % (Auto) 0.3 Lymph # (Auto) 1.0 L [place] # (Auto) 1.3 H Eos # (Auto) 0.2 Baso # (Auto) 0.1 Abs Immat Gran (auto) 0.08 H Absolute Neuts (auto) 13.4 H Absolute Nucleated RBC 0.000 Nucleated RBC % (auto) 0.0 Anion Gap 9 L Estim Creat Clear Calc 54.3 Estimated GFR 45 POC Glucose 77 Random Glucose 86 D Lactic Acid Calcium 7.8 L D Magnesium 2.0 Total Bilirubin 0.4 Direct Bilirubin 0.2 AST 33 ALT 47 H Alkaline Phosphatase 77 Total Protein 6.9 Albumin 2.7 L D Urine Color Urine Appearance Urine pH Ur Specific [place] Urine Protein Urine Glucose (UA) Urine Ketones Urine Blood Urine Nitrite Ur Leukocyte Esterase COVID-19 (BLANCA) COVID-19 Clin Com 05/11/21 05/11/21 05/11/21 14:19 14:41 15:36 MCV MCH MCHC RDW Plt Count MPV Immature Gran % (Auto) Neut % (Auto) Lymph % (Auto) [place] % (Auto) Eos % (Auto) Baso % (Auto) Lymph # (Auto) [place] # (Auto) Eos # (Auto) Baso # (Auto) Abs Immat Gran (auto) Absolute Neuts (auto) Absolute Nucleated RBC Nucleated RBC % (auto) Anion Gap Estim Creat Clear Calc Estimated GFR POC Glucose Random Glucose Lactic Acid 1.0 Calcium Magnesium Total Bilirubin Direct Bilirubin AST ALT Alkaline Phosphatase Total Protein Albumin Urine Color YELLOW Urine Appearance CLEAR Urine pH 5.5 Ur Specific [place] >= 1.030 H Urine Protein 3+ H Urine Glucose (UA) NEG Urine Ketones NEG Urine Blood 1+ H Urine Nitrite NEG Ur Leukocyte Esterase NEG COVID-19 (BLANCA) Negative COVID-19 Clin Com See Note <Cora Tipton NP - Last Filed: 05/11/21 16:26> Imaging Radiologist's Impressions: Impressions Foot X-Ray 05/11/21 14:15 IMPRESSION: 1. Pathologic fracture of neck second metatarsal, changes of osteomyelitis at fracture site. 2. Prior amputation third digit. Question early cortical erosion plantar side metatarsal head. 3. No gas tracking in soft tissues. Venous Duplex 05/11/21 15:08 IMPRESSION: No DVT demonstrated in the right lower extremity, unchanged since prior study dated 04/30/2021. Multiple enlarged but morphologically normal-appearing right groin lymph nodes, similar to prior study dated 04/30/2021. <Cora Tipton NP - Last Filed: 05/11/21 16:26> Assessment and Plan (1) Pathological fracture of foot: Qualifiers: Encounter type: subsequent encounter Fracture healing: with delayed healing Laterality: right Pathology associated with fracture: other disease Qualified Code(s): M84.674G - Pathological fracture in other disease, right foot, subsequent encounter for fracture with delayed healing <Cora Tipton NP - Last Filed: 05/11/21 16:26> Status: Acute <Cora Tipton NP - Last Filed: 05/11/21 16:26> (2) Osteomyelitis: Qualifiers: Laterality: right Osteomyelitis location: foot Osteomyelitis type: unspecified type Qualified Code(s): M86.9 - Osteomyelitis, unspecified <Cora Tipton NP - Last Filed: 05/11/21 16:26> Status: Acute <Cora Tipton NP - Last Filed: 05/11/21 16:26> (3) NEEMA on CPAP: Status: Acute <Cora Tipton NP - Last Filed: 05/11/21 16:26> 56 year old man admitted with osteomyelitis and pathological fracture to right foot. Previous diagnostic imaging studies did not show osteomyelitis. Acute osteomyelitis With pathological fracture of 2nd metatarsal Vancomycin ID consultation Blood cultures, wound cultures pending Pain management Wound care Will need PICC line after negative cultures for longer-term antibiotics. Leukocytosis. Secondary to osteomyelitis No sepsis Diabetes mellitus Sliding scale, ADA diet NEEMA. On CPAP Chronic kidney disease stage 3 Baseline Mental health Continue medications Diabetic neuropathy Continue gabapentin Obesity. BMI 34.1 Discussed importance of weight management as this can contribute to worsening of other comorbidities DVT prophylaxis with heparin Attending Dr. Welch Full code <Cora Tipton NP - Last Filed: 05/11/21 16:26> 56 year old man admitted with osteomyelitis and pathological fracture to right foot. Previous diagnostic imaging studies did not show osteomyelitis. Acute osteomyelitis With pathological fracture of 2nd metatarsal Vancomycin ID consultation Blood cultures, wound cultures pending Pain management Wound care Will need PICC line after negative cultures for longer-term antibiotics. Leukocytosis. Secondary to osteomyelitis No sepsis Diabetes mellitus Sliding scale, ADA diet NEEMA. On CPAP Chronic kidney disease stage 3 Baseline Mental health Continue medications Diabetic neuropathy Continue gabapentin Obesity. BMI 34.1 Discussed importance of weight management as this can contribute to worsening of other comorbidities DVT prophylaxis with heparin Attending Dr. Welch Full code I have personally examined the patient and reviewed the documents. I agree with history and physical and plan as outlined by Ms. Saeed JAMESON <Jose Welch, DO - Last Filed: 05/12/21 12:50> Quality Stroke Does the patient have a stroke diagnosis?: No <Cora Tipton NP - Last Filed: 05/11/21 16:26> VTE Prior VTE?: No <Cora Tipton NP - Last Filed: 05/11/21 16:26> VTE Risk Level:: Medical - moderate - high <Cora Tipton NP - Last Filed: 05/11/21 16:26> VTE Device Contraindication: Treatment Not Indicated <Cora Tipton NP - Last Filed: 05/11/21 16:26> VTE Drug Contraindication: N/A - Med Ordered <Cora Tipton NP - Last Filed: 05/11/21 16:26>
[2021-05-11 16:34] LABS: WBC Urine 0-2 /HPF (0-4)
[2021-05-11 16:35] LABS: Bacteria Urine TRACE /LPF; Hyaline Casts Urine 0-2 /LPF
--- NOTE | 2021-05-11 17:41 | PHA.MEDREC ---
MED REC COMPLETE. PATIENT USED TO BE ON A LOT OF MEDICATIONS BUT CURRENTLY ONLY USING HIS INSULIN, GABAPENTIN, AND TRULICITY. PATIENT SEEMS TO HAVE STOPPED TAKING MEDS OVER 3 MONTHS AGO ON HIS OWN Pharmacy Consult ? Medication Reconciliation Pharmacy has completed the medication reconciliation.
[2021-05-11 20:58] VITALS: BP 150/88; PULSE 80; RESP 18; O2SAT 96
[2021-05-12 00:23] VITALS: PULSE 84; RESP 18; O2SAT 98
[2021-05-12 05:28] VITALS: BP 134/73; PULSE 75; RESP 18; O2SAT 97
[2021-05-12 07:00] LABS: MANUAL DIFF FLAG NO
[2021-05-12 07:06] LABS: Basophils Absolute Auto 0.1 X10*3/uL (0.0-0.2); Basophils Percent Auto 0.4 % (0-2); Eosinophils Absolute Auto 0.2 X10*3/uL (0.0-0.4); Eosinophils Percent Auto 1.3 % (0-4); Hematocrit 31.5 % (42.0-52.0); Hemoglobin 10.2 g/dl (14.0-18.0); Imm Gran Abs Auto 0.08 X10*3/uL (0.00-0.03); Imm Gran Pct Auto 0.5 % (0.0-0.4); Lymphocytes Absolute Auto 1.8 X10*3/uL (1.2-4.9); Lymphocytes Percent Auto 11.1 % (20-40); Mean Corpuscular HGB Conc 32.4 g/dl (31.0-36.0); Mean Corpuscular Hemoglobin 28.7 pg (27.0-33.0); Mean Corpuscular Volume 88.7 fL (80.0-98.0); Mean Platelet Volume 8.5 fL (9.4-12.4); Monocytes Absolute Auto 1.5 X10*3/uL (0.1-1.2); Neutrophils Absolute Auto 12.8 x10*3/uL (2.0-8.3); Neutrophils Percent Auto 77.7 % (45-73); Platelet Count 620 X10*3/uL (160-400); Red Blood Count 3.55 X10*6/uL (4.60-5.80); White Blood Count 16.4 X10*3/uL (4.8-10.8)
[2021-05-12 07:23] LABS: Anion Gap 11 (12-20); Blood Urea Nitrogen 16 mg/dL (9-16); Calcium 8.2 mg/dL (8.4-10.2); Carbon Dioxide 28 mmol/L (22-29); Chloride 102 mmol/L (96-108); Creatinine Clr Calc Pharmacy 58.4; Estimated Glomerular Filt Rate 49; Glucose Random 118 mg/dL (60-115); Potassium 4.4 mmol/L (3.3-5.1); Sodium 137 mmol/L (135-145)
--- NOTE | 2021-05-12 08:47 | PM.CNGS ---
History of Present Illness Consult details Consult date: 05/12/21 Narrative: 56-year-old male, with multiple medical problems including diabetes, obesity and obstructive sleep apnea, admitted yesterday for right foot pain. He has history of amputation of the 2nd toe in the past for on ulcer. He apparently has had a poorly healing ulcer on the inner aspect and [facility]. He has a history of having a graft placed ulcer. However, he says that this did not actually help with the healing. He denied any pain but yesterday says that he had severe pain on his foot and decided to come to the emergency room. Review of Systems Constitutional: Constitutional: Denies chills and Denies fever(s) Cardiovascular: Cardiovascular: Denies chest pain, Denies dyspnea and Denies dyspnea on exertion Respiratory: Respiratory: Denies cough, Denies dyspnea and Denies dyspnea on exertion Gastrointestinal: Gastrointestinal: Denies hematochezia and Denies change in bowel habits Genitourinary: Genitourinary: Denies hematuria and Denies difficulty urinating Musculoskeletal: Musculoskeletal: Denies back pain and Denies limited range of motion Neurologic: Denies focal weakness and Denies convulsions Psychiatric: Psychiatric: Denies depression and Denies mood swings PMFSH Past Medical History Medical History CKD (chronic kidney disease) Diabetic polyneuropathy associated with type 2 diabetes mellitus Dyslipidemia 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 deficiency Moderate non-proliferative diabetic retinopathy Morbid obesity 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 Brother No problems noted. Son No problems noted. Daughter In good health Maternal Grandmother DM (diabetes mellitus) Stroke Surgical History Surgical History History of eye surgery 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 History of tonsillectomy and adenoidectomy Hx laparoscopic cholecystectomy S/P cataract surgery S/P debridement S/P tooth extraction Status post amputation of toe Social History Social History Housing: Apartment Alcohol intake: never Patient Tobacco Use Status: Never used Tobacco e-Cigarette/Vaping Use: Never Used Second Hand Smoke Exposure: No Use of substances other than those prescribed or required for medical reasons: No Substance Use Type: Crack/Cocaine Advance Directives: No Advance Directives Information Provided: Yes service: No Current occupational status: disabled Meds Allergies Allergy/AdvReac Type Severity Reaction Status Date / Time Sulfa (Sulfonamide Allergy Intermediate hives Verified 03/25/21 13:42 Antibiotics) [SULFA (SULFONAMIDE ANTIBIOTICS)] Active Medications: Current Medications Acetaminophen (Acetaminophen 325 Mg Tablet) 650 mg PO Q6H PRN PRN Reason: Pain, Mild (Pain Scale 1-3) Heparin Sodium (Porcine) (Heparin Sodium,Porcine 5,000 Unit/Ml Vial) 5,000 unit SUBCUT Q12H [facility] Vancomycin HCl 1,250 mg/ (Sodium Chloride) 250 mls @ 166.667 mls/hr IV Q24H [facility] Morphine Sulfate (Morphine Sulfate 2 Mg/Ml Cartridge) 2 mg IVPUSH Q4H PRN; Protocol PRN Reason: Pain, Mild (Pain Scale 1-3) Ondansetron HCl (Ondansetron Hcl 4 Mg/2 Ml Vial) 4 mg IVPUSH Q8H PRN PRN Reason: Nausea and Vomiting Pharmacy Consult (Consult Rx Perform Med Rec) 1 each MISCELLANE ONCE PRN PRN Reason: Consult order Pharmacy Consult (Consult Rx Vancomycin Dosing) 1 each MISCELLANE DAILY PRN PRN Reason: Consult order Sodium Chloride (0.9 % Sodium Chloride Flush 3 Ml Syringe) 3 ml IVFLUSH QSHIFT [facility] Last Admin: 05/12/21 00:23 Dose: Not Given Documented by: Home Medications Medication Instructions Recorded Confirmed Last Taken Type blood sugar diagnostic #10 ea 04/01/20 03/25/21 Unknown History insulin syringe-needle U-100 /2 04/21/21 Unknown History mL 31 gauge x 15/64 (BD Veo Insulin Syringe Ultra-Fine) dulaglutide 3 mg/0.5 mL 3 mg SUBCUT TU@1000 05/11/21 05/11/21 Unknown History subcutaneous pen injector (Trulicity) subcutaneous insulin pump (Omnipod 05/11/21 05/11/21 Unknown History Insulin Management) Physical Exam Vital Signs: Vital Signs: Last Vital Signs Temp 99.0 F 05/11/21 13:18 Pulse 75 05/12/21 05:28 Resp 18 05/12/21 05:28 BP 134/73 05/12/21 05:28 Pulse Ox 97 05/12/21 05:28 BMI result Body Mass Index 34.1 Const: Other: Appears obese General: comfortable and no acute distress Orientation/consciousness: patient oriented x3 Neck: Neck: Yes no lymphadenopathy Resp: Auscultation: clear to auscultation bilaterally Cardio: Rhythm: regular rhythm GI: Palpation (GI): Soft to palpation, nontender and no guarding Neuro: General: patient oriented x3 Extrem: Other: Ulcer on the plantar aspect the right foot distally, scanty drainage, no obvious pus, no cellulitis; amputated 2nd toe Results Labs Result diagrams: 05/12/21 06:50 05/12/21 06:50 Labs: Abnormal lab results 05/11/21 05/11/21 05/11/21 Range/Units 14:19 14:19 15:36 WBC 16.0 H (4.8-10.8) X10*3/uL RBC 3.67 L (4.60-5.80) X10*6/uL Hgb 10.4 L (14.0-18.0) g/dl Hct 32.5 L (42.0-52.0) % Plt Count 696 H (160-400) X10*3/uL MPV 8.5 L (9.4-12.4) fL Immature Gran % (Auto) 0.5 H (0.0-0.4) % Neut % (Auto) 83.6 H (45-73) % Lymph % (Auto) 6.2 L (20-40) % Lymph # (Auto) 1.0 L (1.2-4.9) X10*3/uL [place] # (Auto) 1.3 H (0.1-1.2) X10*3/uL Abs Immat Gran (auto) 0.08 H (0.00-0.03) X10*3/uL Absolute Neuts (auto) 13.4 H (2.0-8.3) x10*3/uL Anion Gap 9 L (12-20) BUN 18 H (9-16) mg/dL Creatinine 1.59 H (0.5-1.4) mg/dL Random Glucose (60-115) mg/dL Calcium 7.8 L D (8.4-10.2) mg/dL ALT 47 H (0-40) U/L Albumin 2.7 L D (3.5-5.0) g/dL Ur Specific [place] >= 1.030 H (1.005-1.025) Urine Protein 3+ H (NEG-TRACE) MG/DL Urine Blood 1+ H (NEG) 05/12/21 05/12/21 Range/Units 06:50 06:50 WBC 16.4 H (4.8-10.8) X10*3/uL RBC 3.55 L (4.60-5.80) X10*6/uL Hgb 10.2 L (14.0-18.0) g/dl Hct 31.5 L (42.0-52.0) % Plt Count 620 H (160-400) X10*3/uL MPV 8.5 L (9.4-12.4) fL Immature Gran % (Auto) 0.5 H (0.0-0.4) % Neut % (Auto) 77.7 H (45-73) % Lymph % (Auto) 11.1 L (20-40) % Lymph # (Auto) (1.2-4.9) X10*3/uL [place] # (Auto) 1.5 H (0.1-1.2) X10*3/uL Abs Immat Gran (auto) 0.08 H (0.00-0.03) X10*3/uL Absolute Neuts (auto) 12.8 H (2.0-8.3) x10*3/uL Anion Gap 11 L (12-20) BUN (9-16) mg/dL Creatinine 1.48 H (0.5-1.4) mg/dL Random Glucose 118 H D (60-115) mg/dL Calcium 8.2 L (8.4-10.2) mg/dL ALT (0-40) U/L Albumin (3.5-5.0) g/dL Ur Specific [place] (1.005-1.025) Urine Protein (NEG-TRACE) MG/DL Urine Blood (NEG) Short CBC 05/11/21 05/12/21 Range/Units 14:19 06:50 WBC 16.0 H 16.4 H (4.8-10.8) X10*3/uL Hgb 10.4 L 10.2 L (14.0-18.0) g/dl Hct 32.5 L 31.5 L (42.0-52.0) % Plt Count 696 H 620 H (160-400) X10*3/uL BMP 05/11/21 05/12/21 14:19 06:50 Sodium 136 137 Potassium 4.4 4.4 Chloride 103 102 Carbon Dioxide 28 28 BUN 18 H 16 Creatinine 1.59 H 1.48 H Calcium 7.8 L D 8.2 L Liver Function 05/11/21 Range/Units 14:19 Total Bilirubin 0.4 (0.0-1.0) mg/dL Direct Bilirubin 0.2 (0.0-0.5) mg/dL AST 33 (5-37) U/L ALT 47 H (0-40) U/L Alkaline Phosphatase 77 (39-117) U/L Albumin 2.7 L D (3.5-5.0) g/dL Urine 05/11/21 Range/Units 15:36 Urine Color YELLOW Urine Appearance CLEAR Urine pH 5.5 (5.0-8.0) Ur Specific [place] >= 1.030 H (1.005-1.025) Urine Protein 3+ H (NEG-TRACE) MG/DL Urine Glucose (UA) NEG (NEG) MG/DL All other labs normal. XR/XR foot RT min 3V IMPRESSION: ? 1. Pathologic fracture of neck second metatarsal, changes of osteomyelitis at fracture site. 2. Prior amputation third digit. Question early cortical erosion plantar side metatarsal head. 3. No gas tracking in soft tissues. Assessment and Plan (1) Osteomyelitis: Qualifiers: Laterality: right Osteomyelitis location: foot Osteomyelitis type: unspecified type Qualified Code(s): M86.9 - Osteomyelitis, unspecified Status: Acute He has the distant ulcer on the plantar aspect of the right foot. There is osteomyelitis of the 2nd metatarsal with subsequent logic fracture. The area is otherwise clean and does not need any debridement. He will benefit from a long-term IV antibiotics with PICC line. I have instructed him to avoid weight-bearing on this right foot in the meantime. I have changes dressings and wrapped the foot with Robert bandage. Will follow along while he is in the hospital Procedures Date of Service Date of Service: 05/12/21
[2021-05-12 10:45] VITALS: BP 137/71; PULSE 88; RESP 16; TEMP 37.1; O2SAT 99
--- NOTE | 2021-05-12 11:18 | PC.NURSE ---
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 Heart and lungs noted to be normal and clear. Pt abd rounded and non-tender. Pt R foot noted to have wrap around great toe and after unwrapped- likely suspected osteomylitis. Pt offers no complaints at this time.
[2021-05-12 14:50] VITALS: BP 107/71; PULSE 79; RESP 16; TEMP 36.3; O2SAT 98
[2021-05-12] MEDS: vancomycin HCL 1,250 MG in 0.9 % Sodium Chloride 250 ML 166.67 MG IV (15:19)
--- NOTE | 2021-05-12 17:04 | P.PNIM_ITS ---
Subjective Subjective Date of Service: 05/12/21 Interval History: All information via manager of production; states no acute issues overnight pain control adequate Review of Systems Denies chest pain Denies Shortness of breath Denies nausea vomiting diarrhea Physical Exam Vital Signs: Vital Signs: Last Vital Signs Temp 97.4 F 05/12/21 14:50 Pulse 79 05/12/21 14:50 Resp 16 05/12/21 14:50 BP 107/71 05/12/21 14:50 Pulse Ox 98 05/12/21 14:50 BMI result Body Mass Index 34.1 Const: Other: No acute distress Resp: Other: Clear to auscultation bilaterally no rales rhonchi wheezes Cardio: Other: No S4; S1-S2; no S3 murmurs Os-Pankaj Extrem: Other: Right foot with tight Robert wrap by Dr. Jordan this this a.m. Objective Data Active Medications Acetaminophen (Acetaminophen 325 Mg Tablet) 650 mg PO Q6H PRN PRN Reason: Pain, Mild (Pain Scale 1-3) Heparin Sodium (Porcine) (Heparin Sodium,Porcine 5,000 Unit/Ml Vial) 5,000 unit SUBCUT Q12H [facility] Vancomycin HCl 1,250 mg/ (Sodium Chloride) 250 mls @ 166.667 mls/hr IV Q24H [facility] Last Admin: 05/12/21 15:19 Dose: 166.67 mls/hr Documented by: SHERMAN Piperacillin Sod/Tazobactam (Sod 3.375 gm/ Sodium Chloride) 50 mls @ 100 mls/hr IV Q6H [facility] Morphine Sulfate (Morphine Sulfate 2 Mg/Ml Cartridge) 2 mg IVPUSH Q4H PRN; Protocol PRN Reason: Pain, Mild (Pain Scale 1-3) Ondansetron HCl (Ondansetron Hcl 4 Mg/2 Ml Vial) 4 mg IVPUSH Q8H PRN PRN Reason: Nausea and Vomiting Pharmacy Consult (Consult Rx Perform Med Rec) 1 each MISCELLANE ONCE PRN PRN Reason: Consult order Pharmacy Consult (Consult Rx Vancomycin Dosing) 1 each MISCELLANE DAILY PRN PRN Reason: Consult order Sodium Chloride (0.9 % Sodium Chloride Flush 3 Ml Syringe) 3 ml IVFLUSH QSHIFT [facility] Last Admin: 05/12/21 16:26 Dose: Not Given Documented by: HO.N-MALIR Non-Admin Reason: Med Not Available Labs CBC & Chem 7: 05/12/21 06:50 05/12/21 06:50 Labs: Laboratory Results - last 24 hr 05/12/21 05/12/21 06:50 06:50 MCV 88.7 MCH 28.7 MCHC 32.4 RDW 14.0 Plt Count 620 H MPV 8.5 L Immature Gran % (Auto) 0.5 H Neut % (Auto) 77.7 H Lymph % (Auto) 11.1 L [place] % (Auto) 9.0 Eos % (Auto) 1.3 Baso % (Auto) 0.4 Lymph # (Auto) 1.8 [place] # (Auto) 1.5 H Eos # (Auto) 0.2 Baso # (Auto) 0.1 Abs Immat Gran (auto) 0.08 H Absolute Neuts (auto) 12.8 H Absolute Nucleated RBC 0.000 Nucleated RBC % (auto) 0.0 Anion Gap 11 L Estim Creat Clear Calc 58.4 Estimated GFR 49 Random Glucose 118 H D Calcium 8.2 L Microbiology Microbiology Results: Microbiology 05/11/21 14:41 Blood Culture - Preliminary Blood - Venous No growth after 24 hours. 05/11/21 14:41 Gram Stain - Final Foot Right Routine Culture - Preliminary Staphylococcus aureus Strep agalactiae (Grp B) Assessment and Plan (1) Pathological fracture of foot: Status: Acute (2) Osteomyelitis: Status: Acute (3) Diabetes type 2, uncontrolled: Status: Acute Assessment and Plan: 56 year old man admitted with osteomyelitis and pathological fracture to right foot. Previous diagnostic imaging studies did not show osteomyelitis. States was seen at [facility] earlier this week by Podiatry; was told he would need surgery in July to remove the infected bone. No records available at this time 1.Acute osteomyelitis With pathological fracture of 2nd metatarsal Vancomycin/Zosyn ID consultation Blood cultures, wound cultures pending IR for PICC...NPO after midnight 2.Type II DM Sliding scale, ADA diet Usually on Insulin Pump at home...will D/C while inoatient. Can reume when D/C 3.NEEMA. CPAP at HS 4.CKD 3 Baseline Will consult renal at pt's request DVT prophylaxis with heparin Full code Quality Stroke Does the patient have a stroke diagnosis?: No VTE Prior VTE?: No VTE Risk Level:: Medical - moderate - high VTE Device Contraindication: Treatment Not Indicated VTE Drug Contraindication: N/A - Med Ordered
--- NOTE | 2021-05-12 18:05 | PC.NURSE ---
Received communication orders from MD Welch concerning pt to have his own insulin pump D/C and that he will be NPO after midnight. No noted orders noted in [facility] for this as of yet. MD Welch made aware. RN will continue to monitor.
--- NOTE | 2021-05-12 19:30 | PC.NURSE ---
Assumed care of pt from JAN Conti Pt resting on stretcher Ambulatory to bathroom Gait even and steady Will continue to monitor
[2021-05-12 22:00] LABS: Glucose, Whole Blood 121 mg/dL (60-115)
--- NOTE | 2021-05-12 22:00 | PC.NURSE ---
Lispro held, BG = 121
[2021-05-12] MEDS: Gabapentin 300 MG CAPSULE PO (22:22)
[2021-05-12] MEDS: Acetaminophen 325 MG TABLET 650 MG PO (22:22)
[2021-05-12] MEDS: Piperacillin Sodium/Tazobactam 3.375 GM in 0.9 % Sodium Chloride 50 ML IV (22:25)
[2021-05-12 22:44] VITALS: BP 139/65; PULSE 75; RESP 16; TEMP 36.3; O2SAT 98
[2021-05-13 00:21] VITALS: RESP 20
[2021-05-13] MEDS: Morphine Sulfate 2 MG/ML CARTRIDGE IVPUSH (00:21)
--- NOTE | 2021-05-13 00:57 | PC.NURSE ---
Pt resting on stretcher on his side with eyes closed Breathing even and unlabored Will continue to monitor
[2021-05-13 05:00] VITALS: RESP 15
[2021-05-13] MEDS: Piperacillin Sodium/Tazobactam 3.375 GM in 0.9 % Sodium Chloride 50 ML IV ×4 (05:30→21:08)
[2021-05-13 06:28] LABS: Basophils Absolute Auto 0.1 X10*3/uL (0.0-0.2); Basophils Percent Auto 0.3 % (0-2); Eosinophils Absolute Auto 0.2 X10*3/uL (0.0-0.4); Eosinophils Percent Auto 1.2 % (0-4); Hemoglobin 10.6 g/dl (14.0-18.0); Imm Gran Pct Auto 0.5 % (0.0-0.4); Lymphocytes Absolute Auto 1.2 X10*3/uL (1.2-4.9); Lymphocytes Percent Auto 6.6 % (20-40); MANUAL DIFF FLAG SCAN; Mean Corpuscular HGB Conc 32.1 g/dl (31.0-36.0); Mean Corpuscular Hemoglobin 28.2 pg (27.0-33.0); Mean Corpuscular Volume 87.8 fL (80.0-98.0); Mean Platelet Volume 8.6 fL (9.4-12.4); Monocytes Absolute Auto 1.7 X10*3/uL (0.1-1.2); Monocytes Percent Auto 9.1 % (2-11); Neutrophils Percent Auto 82.3 % (45-73); Platelet Count 701 X10*3/uL (160-400); Red Blood Count 3.76 X10*6/uL (4.60-5.80); Red Cell Distribution Width 13.8 % (11.0-16.0); SCAN SMEAR FLAG 1; White Blood Count 18.2 X10*3/uL (4.8-10.8)
[2021-05-13 06:45] LABS: SLIDE REVIEW VERIFIED
[2021-05-13 06:46] LABS: Alanine Aminotransferase 52 U/L (0-40); Albumin Level 2.7 g/dL (3.5-5.0); Alkaline Phosphatase 88 U/L (39-117); Anion Gap 13 (12-20); Aspartate Amino Transferase 39 U/L (5-37); Bilirubin Total 0.6 mg/dL (0.0-1.0); Blood Urea Nitrogen 18 mg/dL (9-16); Calcium 8.5 mg/dL (8.4-10.2); Carbon Dioxide 26 mmol/L (22-29); Chloride 101 mmol/L (96-108); Creatinine Clr Calc Pharmacy 56.8; Estimated Glomerular Filt Rate 48; Glucose Fasting 148 mg/dL (60-99); Potassium 4.4 mmol/L (3.3-5.1); Sodium 136 mmol/L (135-145); Total Protein 7.3 g/dL (6.5-8.0)
[2021-05-13] MEDS: Heparin Sodium,Porcine 5,000 UNIT/ML VIAL 5000 UNIT SUBCUT ×2 (06:52→19:10)
[2021-05-13 07:35] LABS: Glucose, Whole Blood 139 mg/dL (60-115)
--- NOTE | 2021-05-13 08:46 | P.PNGS_ITS ---
Subjective Subjective Date of Service: 05/13/21 Interval history: Denies complaints Foot pain much improved Physical Exam Vital Signs: Vital Signs: Last Vital Signs Temp 97.3 F 05/12/21 22:44 Pulse 75 05/12/21 22:44 Resp 15 05/13/21 05:00 BP 139/65 05/12/21 22:44 Pulse Ox 98 05/12/21 22:44 BMI result Body Mass Index 34.1 Const: General: comfortable and no acute distress Nutritional Appearance: obese Resp: Effort & Inspection: normal respiratory effort Cardio: Rate: regular rate GI: Palpation (GI): Soft to palpation and nontender Extrem: Other: Ulcer on dry aspect of forefoot, scanty serosanguineous drainage, no cellulitis Objective Data Active Medications Acetaminophen (Acetaminophen 325 Mg Tablet) 650 mg PO Q6H PRN PRN Reason: Pain, Mild (Pain Scale 1-3) Last Admin: 05/12/21 22:22 Dose: 650 mg Documented by: KATEY Dextrose (Dextrose 50 % 25 Gm/50 Ml Vial) 25 gm IVPUSH Q15M PRN; Protocol PRN Reason: per Hypoglycemia Standing Ord. Gabapentin (Gabapentin 300 Mg Capsule) 300 mg PO TID [facility] Last Admin: 05/13/21 08:01 Dose: Not Given Documented by: SHERMAN Non-Admin Reason: NPO Glucose (Glucose Gel 15 Gm Gel..Gram.) 15 gm PO Q15M PRN; Protocol PRN Reason: per Hypoglycemia Standing Ord. Heparin Sodium (Porcine) (Heparin Sodium,Porcine 5,000 Unit/Ml Vial) 5,000 unit SUBCUT Q12H [facility] Last Admin: 05/13/21 06:52 Dose: 5,000 unit Documented by: KATEY Vancomycin HCl 1,250 mg/ (Sodium Chloride) 250 mls @ 166.667 mls/hr IV Q24H [facility] Last Infusion: 05/12/21 17:00 Dose: 0 mls/hr Documented by: SHERMAN Piperacillin Sod/Tazobactam (Sod 3.375 gm/ Sodium Chloride) 50 mls @ 100 mls/hr IV Q6H [facility] Last Admin: 05/13/21 05:30 Dose: 100 mls/hr Documented by: KATEY Insulin Human Lispro (Insulin Lispro 100 Unit/Ml 3 Ml Vial) 0 unit SUBCUT QIDACHS [facility]; Protocol Last Admin: 05/13/21 08:00 Dose: Not Given Documented by: SHERMAN Non-Admin Reason: No Insulin Coverage Comments: B/S 139 Morphine Sulfate (Morphine Sulfate 2 Mg/Ml Cartridge) 2 mg IVPUSH Q4H PRN; Protocol PRN Reason: Pain, Mild (Pain Scale 1-3) Last Admin: 05/13/21 00:21 Dose: 2 mg Documented by: KATEY Ondansetron HCl (Ondansetron Hcl 4 Mg/2 Ml Vial) 4 mg IVPUSH Q8H PRN PRN Reason: Nausea and Vomiting Pharmacy Consult (Consult Rx Perform Med Rec) 1 each MISCELLANE ONCE PRN PRN Reason: Consult order Pharmacy Consult (Consult Rx Vancomycin Dosing) 1 each MISCELLANE DAILY PRN PRN Reason: Consult order Sodium Chloride (0.9 % Sodium Chloride Flush 3 Ml Syringe) 3 ml IVFLUSH [facility] Last Admin: 05/13/21 07:58 Dose: Not Given Documented by: SHERMAN Non-Admin Reason: Med Not Available Labs CBC & Chem 7: 05/13/21 06:13 05/13/21 06:13 Labs: Laboratory Results - last 24 hr 05/12/21 05/13/21 05/13/21 21:56 06:13 06:13 MCV 87.8 MCH 28.2 MCHC 32.1 RDW 13.8 Plt Count 701 H MPV 8.6 L Immature Gran % (Auto) 0.5 H Neut % (Auto) 82.3 H Lymph % (Auto) 6.6 L [place] % (Auto) 9.1 Eos % (Auto) 1.2 Baso % (Auto) 0.3 Lymph # (Auto) 1.2 [place] # (Auto) 1.7 H Eos # (Auto) 0.2 Baso # (Auto) 0.1 Abs Immat Gran (auto) 0.10 H Absolute Neuts (auto) 15.0 H Absolute Nucleated RBC 0.000 Nucleated RBC % (auto) 0.0 Smear Tech's Comments VERIFIED Anion Gap 13 Estim Creat Clear Calc 56.8 Estimated GFR 48 POC Glucose 121 H Fasting Glucose 148 H Calcium 8.5 Total Bilirubin 0.6 AST 39 H ALT 52 H Alkaline Phosphatase 88 Total Protein 7.3 Albumin 2.7 L 05/13/21 07:31 MCV MCH MCHC RDW Plt Count MPV Immature Gran % (Auto) Neut % (Auto) Lymph % (Auto) [place] % (Auto) Eos % (Auto) Baso % (Auto) Lymph # (Auto) [place] # (Auto) Eos # (Auto) Baso # (Auto) Abs Immat Gran (auto) Absolute Neuts (auto) Absolute Nucleated RBC Nucleated RBC % (auto) Smear Tech's Comments Anion Gap Estim Creat Clear Calc Estimated GFR POC Glucose 139 H Fasting Glucose Calcium Total Bilirubin AST ALT Alkaline Phosphatase Total Protein Albumin Microbiology Microbiology Results: Microbiology 05/11/21 14:41 Gram Stain - Final Foot Right Routine Culture - Preliminary Staphylococcus aureus Strep agalactiae (Grp B) 05/11/21 15:36 Blood Culture - Preliminary Blood - Venous No growth after 24 hours. 05/11/21 14:41 Blood Culture - Preliminary Blood - Venous No growth after 24 hours. Procedures Date of Service Date of Service: 05/13/21 Progress Note: A&P Assessment and plan (1) Osteomyelitis: Status: Acute Assessment and Plan: Osteomyelitis of the distal metatarsal subsequent fracture IV antibiotics by PICC line Consider orthopedic input I have changes dressings - dry gauze placed on ulcer, wrapped with Shahab roll No weight-bearing on the right foot Explained plan to patient Fall Risk Details Current Medications: Current Medications Acetaminophen (Acetaminophen 325 Mg Tablet) 650 mg PO Q6H PRN PRN Reason: Pain, Mild (Pain Scale 1-3) Last Admin: 05/12/21 22:22 Dose: 650 mg Documented by: Dextrose (Dextrose 50 % 25 Gm/50 Ml Vial) 25 gm IVPUSH Q15M PRN; Protocol PRN Reason: per Hypoglycemia Standing Ord. Gabapentin (Gabapentin 300 Mg Capsule) 300 mg PO TID [facility] Last Admin: 05/13/21 08:01 Dose: Not Given Documented by: Glucose (Glucose Gel 15 Gm Gel..Gram.) 15 gm PO Q15M PRN; Protocol PRN Reason: per Hypoglycemia Standing Ord. Heparin Sodium (Porcine) (Heparin Sodium,Porcine 5,000 Unit/Ml Vial) 5,000 unit SUBCUT Q12H [facility] Last Admin: 05/13/21 06:52 Dose: 5,000 unit Documented by: Vancomycin HCl 1,250 mg/ (Sodium Chloride) 250 mls @ 166.667 mls/hr IV Q24H [facility] Last Infusion: 05/12/21 17:00 Dose: Infused Documented by: Piperacillin Sod/Tazobactam (Sod 3.375 gm/ Sodium Chloride) 50 mls @ 100 mls/hr IV Q6H [facility] Last Admin: 05/13/21 05:30 Dose: 100 mls/hr Documented by: Insulin Human Lispro (Insulin Lispro 100 Unit/Ml 3 Ml Vial) 0 unit SUBCUT QIDACHS [facility]; Protocol Last Admin: 05/13/21 08:00 Dose: Not Given Documented by: Morphine Sulfate (Morphine Sulfate 2 Mg/Ml Cartridge) 2 mg IVPUSH Q4H PRN; Protocol PRN Reason: Pain, Mild (Pain Scale 1-3) Last Admin: 05/13/21 00:21 Dose: 2 mg Documented by: Ondansetron HCl (Ondansetron Hcl 4 Mg/2 Ml Vial) 4 mg IVPUSH Q8H PRN PRN Reason: Nausea and Vomiting Pharmacy Consult (Consult Rx Perform Med Rec) 1 each MISCELLANE ONCE PRN PRN Reason: Consult order Pharmacy Consult (Consult Rx Vancomycin Dosing) 1 each MISCELLANE DAILY PRN PRN Reason: Consult order Sodium Chloride (0.9 % Sodium Chloride Flush 3 Ml Syringe) 3 ml IVFLUSH QSHIFT [facility] Last Admin: 05/13/21 07:58 Dose: Not Given Documented by: Time Spent With Patient Time: Total time spent is greater than 50% in coordination of care (as documented) at patient's floor/unit and/or counseling patient: Time with patient: 15 - 24 minutes Quality Stroke Does the patient have a stroke diagnosis?: No VTE Prior VTE?: No VTE Risk Level:: Medical - moderate - high VTE Device Contraindication: Treatment Not Indicated VTE Drug Contraindication: N/A - Med Ordered
--- NOTE | 2021-05-13 09:14 | PC.NURSE ---
Pt received from security shift manager: Pt remained AOX4 in no acute distress. Heart and lungs regular and clear. R foot noted to be wrapped for diabetic ulcer underneath. Pending surgery for pt sometime today... pt remains NPO.
[2021-05-13 10:17] VITALS: BP 137/75; PULSE 76; RESP 15; TEMP 36.6; O2SAT 91
[2021-05-13 12:23] LABS: Glucose, Whole Blood 123 mg/dL (60-115)
--- NOTE | 2021-05-13 13:05 | P.PNIM_ITS ---
Subjective Subjective Date of Service: 05/13/21 Interval History: F/u on osteomylitis of the foot, no fever, pain controlled Review of Systems no fever pain in the foot Physical Exam Vital Signs: Vital Signs: Last Vital Signs Temp 98 F 05/13/21 10:17 Pulse 76 05/13/21 10:17 Resp 15 05/13/21 10:17 BP 137/75 05/13/21 10:17 Pulse Ox 91 L 05/13/21 10:17 BMI result Body Mass Index 34.1 Const: Other: Const General:?comfortable and no acute distress Nutritional Appearance:?obese Resp Effort & Inspection:?normal respiratory effort Cardio Rate:?regular rate GI Palpation (GI):?Soft to palpation and nontender Extrem Other:?Ulcer on dry aspect of forefoot, scanty serosanguineous drainage, no cellulitis Objective Data Active Medications Acetaminophen (Acetaminophen 325 Mg Tablet) 650 mg PO Q6H PRN PRN Reason: Pain, Mild (Pain Scale 1-3) Last Admin: 05/12/21 22:22 Dose: 650 mg Documented by: KATEY Dextrose (Dextrose 50 % 25 Gm/50 Ml Vial) 25 gm IVPUSH Q15M PRN; Protocol PRN Reason: per Hypoglycemia Standing Ord. Gabapentin (Gabapentin 300 Mg Capsule) 300 mg PO TID [facility] Last Admin: 05/13/21 08:01 Dose: Not Given Documented by: SHERMAN Non-Admin Reason: NPO Glucose (Glucose Gel 15 Gm Gel..Gram.) 15 gm PO Q15M PRN; Protocol PRN Reason: per Hypoglycemia Standing Ord. Heparin Sodium (Porcine) (Heparin Sodium,Porcine 5,000 Unit/Ml Vial) 5,000 unit SUBCUT Q12H [facility] Last Admin: 05/13/21 06:52 Dose: 5,000 unit Documented by: KATEY Vancomycin HCl 1,250 mg/ (Sodium Chloride) 250 mls @ 166.667 mls/hr IV Q24H [facility] Last Infusion: 05/12/21 17:00 Dose: 0 mls/hr Documented by: SHERMAN Piperacillin Sod/Tazobactam (Sod 3.375 gm/ Sodium Chloride) 50 mls @ 100 mls/hr IV Q6H [facility] Last Infusion: 05/13/21 10:30 Dose: 0 mls/hr Documented by: SHERMAN Insulin Human Lispro (Insulin Lispro 100 Unit/Ml 3 Ml Vial) 0 unit SUBCUT QIDACHS [facility]; Protocol Last Admin: 05/13/21 12:21 Dose: Not Given Documented by: SHERMAN Non-Admin Reason: No Insulin Coverage Comments: B/S 123 Morphine Sulfate (Morphine Sulfate 2 Mg/Ml Cartridge) 2 mg IVPUSH Q4H PRN; Protocol PRN Reason: Pain, Mild (Pain Scale 1-3) Last Admin: 05/13/21 00:21 Dose: 2 mg Documented by: KATEY Ondansetron HCl (Ondansetron Hcl 4 Mg/2 Ml Vial) 4 mg IVPUSH Q8H PRN PRN Reason: Nausea and Vomiting Pharmacy Consult (Consult Rx Perform Med Rec) 1 each MISCELLANE ONCE PRN PRN Reason: Consult order Pharmacy Consult (Consult Rx Vancomycin Dosing) 1 each MISCELLANE DAILY PRN PRN Reason: Consult order Sodium Chloride (0.9 % Sodium Chloride Flush 3 Ml Syringe) 3 ml IVFLUSH [facility] Last Admin: 05/13/21 07:58 Dose: Not Given Documented by: SHERMAN Non-Admin Reason: Med Not Available Labs CBC & Chem 7: 05/13/21 06:13 05/13/21 06:13 Labs: Laboratory Results - last 24 hr 05/12/21 05/13/21 05/13/21 21:56 06:13 06:13 MCV 87.8 MCH 28.2 MCHC 32.1 RDW 13.8 Plt Count 701 H MPV 8.6 L Immature Gran % (Auto) 0.5 H Neut % (Auto) 82.3 H Lymph % (Auto) 6.6 L [place] % (Auto) 9.1 Eos % (Auto) 1.2 Baso % (Auto) 0.3 Lymph # (Auto) 1.2 [place] # (Auto) 1.7 H Eos # (Auto) 0.2 Baso # (Auto) 0.1 Abs Immat Gran (auto) 0.10 H Absolute Neuts (auto) 15.0 H Absolute Nucleated RBC 0.000 Nucleated RBC % (auto) 0.0 Smear Tech's Comments VERIFIED Anion Gap 13 Estim Creat Clear Calc 56.8 Estimated GFR 48 POC Glucose 121 H Fasting Glucose 148 H Calcium 8.5 Total Bilirubin 0.6 AST 39 H ALT 52 H Alkaline Phosphatase 88 Total Protein 7.3 Albumin 2.7 L 05/13/21 05/13/21 07:31 12:18 MCV MCH MCHC RDW Plt Count MPV Immature Gran % (Auto) Neut % (Auto) Lymph % (Auto) [place] % (Auto) Eos % (Auto) Baso % (Auto) Lymph # (Auto) [place] # (Auto) Eos # (Auto) Baso # (Auto) Abs Immat Gran (auto) Absolute Neuts (auto) Absolute Nucleated RBC Nucleated RBC % (auto) Smear Tech's Comments Anion Gap Estim Creat Clear Calc Estimated GFR POC Glucose 139 H 123 H Fasting Glucose Calcium Total Bilirubin AST ALT Alkaline Phosphatase Total Protein Albumin Microbiology Microbiology Results: Microbiology 05/11/21 14:41 Gram Stain - Final Foot Right Routine Culture - Preliminary Staphylococcus aureus Strep agalactiae (Grp B) 05/11/21 15:36 Blood Culture - Preliminary Blood - Venous No growth after 24 hours. 05/11/21 14:41 Blood Culture - Preliminary Blood - Venous No growth after 24 hours. Assessment and Plan (1) Pathological fracture of foot: Status: Acute (2) Osteomyelitis: Status: Acute (3) Diabetes type 2, uncontrolled: Status: Acute Assessment and Plan: 56 year old man admitted with osteomyelitis and pathological fracture to right foot. Previous diagnostic imaging studies did not show osteomyelitis. States was seen at [facility] earlier this week by Podiatry; was told he would need surgery in July to remove the infected bone. No records available at this time 1.Acute osteomyelitis With pathological fracture of 2nd metatarsal thus far culture negative continue Vancomycin/Zosyn ID to make Abx recommendation Blood cultures negative, wound culture = staph aureus and group b strep IR for PICC... 2.Type II DM Sliding scale, ADA diet Usually on Insulin Pump at home..Hold insulin pump, 3.NEEMA. CPAP at HS 4.CKD 3 Baseline Will consult renal at pt's request DVT prophylaxis with heparin Full code Quality Stroke Does the patient have a stroke diagnosis?: No VTE Prior VTE?: No VTE Risk Level:: Medical - moderate - high VTE Device Contraindication: Treatment Not Indicated VTE Drug Contraindication: N/A - Med Ordered
[2021-05-13 15:10] LABS: Vancomycin Trough 7.4 mcg/mL (10.0-20.0)
--- NOTE | 2021-05-13 15:21 | HE.PHANOTE ---
Increased patients dose to 1500 mg, predicted AUC of of 451, new trough on 05/14 @1400
--- NOTE | 2021-05-13 15:32 | MHC.CM.PN ---
pt lives alone but has a s.o. that is around often. she can help him c his needs. he uses a walker as needed and is active c the [facility] [place] [facility]. pt's s.o. will provide transport at mo. pt will require picc , iv abx's and vna at mo. he is currently waiting for picc to be placed. a ref. has been made to [facility] for iv abx supply and teaching ; a ref has also been made to [facility] for nsg . dc plan is home c these svcs cm to cont. to follow.
[2021-05-13 16:00] VITALS: BP 154/77; PULSE 78; RESP 16; TEMP 36.7
--- NOTE | 2021-05-13 16:02 | PC.NURSE ---
No dressing orders noted for pt's R foot. MD Elaine made aware. RN will continue to monitor.
[2021-05-13 17:14] LABS: Glucose, Whole Blood 125 mg/dL (60-115)
[2021-05-13] MEDS: vancomycin HCL 1,500 MG in 0.9 % Sodium Chloride 500 ML 333.33 MG IV (17:20)
[2021-05-13 18:51] VITALS: BP 133/60; PULSE 79; RESP 18; TEMP 34.7; O2SAT 97
[2021-05-13 19:36] VITALS: BP 142/72; PULSE 76; RESP 18; TEMP 37; O2SAT 96
[2021-05-13 20:21] LABS: Glucose, Whole Blood 252 mg/dL (60-115)
[2021-05-13] MEDS: Insulin Lispro 100 UNIT/ML 3 ML VIAL SUBCUT (21:08)
[2021-05-13] MEDS: Gabapentin 300 MG CAPSULE PO (21:08)
[2021-05-13] MEDS: 0.9 % Sodium Chloride Flush 3 ML SYRINGE IVFLUSH (21:09)
--- NOTE | 2021-05-13 22:28 | P.CNID_ITS ---
History of Present Illness Data of Consult Service Date: 05/13/21 Requesting physician: Dylon Lemus Primary Care Provider: Xochilt Singh MD HPI Reason for consult: osteomyelitis He presents with discomfort right foot over last week. He has no fever or chills Xray shows right second metatarsal infection. 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 Brother No problems noted. Son No problems noted. Daughter In good health Maternal Grandmother DM (diabetes mellitus) Stroke Family history: reviewed and not pertinent Surgical History Surgical History History of eye surgery 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 History of tonsillectomy and adenoidectomy Hx laparoscopic cholecystectomy S/P cataract surgery S/P debridement S/P tooth extraction Status post amputation of toe Social History Social History Household Members: None Housing: Apartment Do you presently have visiting nurse or other home services: Yes (daughter is COUNSELOR EDUCATION PROFESSOR) Alcohol intake: never Patient Tobacco Use Status: Never used Tobacco e-Cigarette/Vaping Use: Never Used Second Hand Smoke Exposure: No Substance Use Type: Marijuana service: No Current occupational status: disabled Meds Allergies Allergy/AdvReac Type Severity Reaction Status Date / Time Sulfa (Sulfonamide Allergy Intermediate hives Verified 03/25/21 13:42 Antibiotics) [SULFA (SULFONAMIDE ANTIBIOTICS)] Active Medications: Current Medications Acetaminophen (Acetaminophen 325 Mg Tablet) 650 mg PO Q6H PRN PRN Reason: Pain, Mild (Pain Scale 1-3) Last Admin: 05/12/21 22:22 Dose: 650 mg Documented by: Dextrose (Dextrose 50 % 25 Gm/50 Ml Vial) 25 gm IVPUSH Q15M PRN; Protocol PRN Reason: per Hypoglycemia Standing Ord. Gabapentin (Gabapentin 300 Mg Capsule) 300 mg PO TID [facility] Last Admin: 05/13/21 21:08 Dose: 300 mg Documented by: Glucose (Glucose Gel 15 Gm Gel..Gram.) 15 gm PO Q15M PRN; Protocol PRN Reason: per Hypoglycemia Standing Ord. Heparin Sodium (Porcine) (Heparin Sodium,Porcine 5,000 Unit/Ml Vial) 5,000 unit SUBCUT Q12H [facility] Last Admin: 05/13/21 19:10 Dose: 5,000 unit Documented by: Piperacillin Sod/Tazobactam (Sod 3.375 gm/ Sodium Chloride) 50 mls @ 100 mls/hr IV Q6H [facility] Last Infusion: 05/13/21 21:45 Dose: Infused Documented by: Vancomycin HCl 1,500 mg/ (Sodium Chloride) 500 mls @ 333.333 mls/hr IV Q24H [facility] Last Infusion: 05/13/21 19:36 Dose: Infused Documented by: Insulin Human Lispro (Insulin Lispro 100 Unit/Ml 3 Ml Vial) 0 unit SUBCUT QIDACHS [facility]; Protocol Last Admin: 05/13/21 21:08 Dose: 6 unit Documented by: Morphine Sulfate (Morphine Sulfate 2 Mg/Ml Cartridge) 2 mg IVPUSH Q4H PRN; Protocol PRN Reason: Pain, Mild (Pain Scale 1-3) Last Admin: 05/13/21 00:21 Dose: 2 mg Documented by: Ondansetron HCl (Ondansetron Hcl 4 Mg/2 Ml Vial) 4 mg IVPUSH Q8H PRN PRN Reason: Nausea and Vomiting Pharmacy Consult (Consult Rx Perform Med Rec) 1 each MISCELLANE ONCE PRN PRN Reason: Consult order Pharmacy Consult (Consult Rx Vancomycin Dosing) 1 each MISCELLANE DAILY PRN PRN Reason: Consult order Sodium Chloride (0.9 % Sodium Chloride Flush 3 Ml Syringe) 3 ml IVFLUSH QSHIFT [facility] Last Admin: 05/13/21 21:09 Dose: 3 ml Documented by: Home Medications Medication Instructions Recorded Confirmed Last Taken Type blood sugar diagnostic #10 ea 04/01/20 03/25/21 Unknown History insulin syringe-needle U-100 05/3004/21/21 Unknown History mL 31 gauge x 15/64 (BD Veo Insulin Syringe Ultra-Fine) dulaglutide 3 mg/0.5 mL 3 mg SUBCUT TU@1000 05/11/21 05/11/21 Unknown History subcutaneous pen injector (Trulicity) subcutaneous insulin pump (Omnipod 05/11/21 05/11/21 Unknown History Insulin Management) Physical Exam Vital Signs: Vital Signs: Last Vital Signs Temp 98.6 F 05/13/21 19:36 Pulse 76 05/13/21 19:36 Resp 18 05/13/21 19:36 BP 142/72 H 05/13/21 19:36 Pulse Ox 96 05/13/21 19:36 BMI result Body Mass Index 34.1 Const: General: cooperative HENMT: Head: Yes normal to inspection Resp: Effort & Inspection: normal respiratory effort Cardio: Rate: regular rate Rhythm: regular rhythm GI: Palpation (GI): Soft to palpation and nontender Skin: General skin exam: no rashes or lesions noted Extrem: Other: plantar open wound,mild purulence Results Labs CBC & Chem 7: 05/13/21 06:13 05/13/21 06:13 Labs: Short CBC 05/13/21 Range/Units 06:13 WBC 18.2 H (4.8-10.8) X10*3/uL Hgb 10.6 L (14.0-18.0) g/dl Hct 33.0 L (42.0-52.0) % Plt Count 701 H (160-400) X10*3/uL BMP 05/13/21 06:13 Sodium 136 Potassium 4.4 Chloride 101 Carbon Dioxide 26 BUN 18 H Creatinine 1.52 H Calcium 8.5 Liver Function 05/13/21 Range/Units 06:13 Total Bilirubin 0.6 (0.0-1.0) mg/dL AST 39 H (5-37) U/L ALT 52 H (0-40) U/L Alkaline Phosphatase 88 (39-117) U/L Albumin 2.7 L (3.5-5.0) g/dL Microbiology Microbiology Results: Microbiology 05/11/21 15:36 Blood - Venous Blood Culture - Preliminary No growth after 48 hours. 05/11/21 14:41 Blood - Venous Blood Culture - Preliminary No growth after 48 hours. 05/11/21 14:41 Foot Right Gram Stain - Final 05/11/21 14:41 Foot Right Routine Culture - Preliminary Staphylococcus aureus Strep agalactiae (Grp B) Assessment and Plan (1) Pathological fracture of foot: Qualifiers: Encounter type: subsequent encounter Fracture healing: with delayed healing Laterality: right Pathology associated with fracture: other disease Qualified Code(s): M84.674G - Pathological fracture in other disease, right foot, subsequent encounter for fracture with delayed healing Status: Acute (2) Osteomyelitis: Qualifiers: Laterality: right Osteomyelitis location: foot Osteomyelitis type: unspecified type Qualified Code(s): M86.9 - Osteomyelitis, unspecified Status: Acute He has MSSA and strep likely He has osteomyelitis Suggest Probable Ertapenem for six weeks Follow outpatient
[2021-05-14] VITALS (9 sets, daily range): BP systolic 127–152; BP diastolic 63–73; PULSE 71–80; RESP 16–18; TEMP 35.7–36.6; O2SAT 90–100
[2021-05-14] MEDS: Piperacillin Sodium/Tazobactam 3.375 GM in 0.9 % Sodium Chloride 50 ML IV ×4 (03:19→22:06)
[2021-05-14] MEDS: Heparin Sodium,Porcine 5,000 UNIT/ML VIAL 5000 UNIT SUBCUT ×2 (05:22→22:07)
[2021-05-14 05:43] LABS: Basophils Absolute Auto 0.1 X10*3/uL (0.0-0.2); Basophils Percent Auto 0.4 % (0-2); Eosinophils Absolute Auto 0.3 X10*3/uL (0.0-0.4); Eosinophils Percent Auto 1.9 % (0-4); Hematocrit 30.6 % (42.0-52.0); Imm Gran Abs Auto 0.06 X10*3/uL (0.00-0.03); Imm Gran Pct Auto 0.4 % (0.0-0.4); Lymphocytes Absolute Auto 1.5 X10*3/uL (1.2-4.9); Lymphocytes Percent Auto 10.7 % (20-40); MANUAL DIFF FLAG SCAN; Mean Corpuscular HGB Conc 32.7 g/dl (31.0-36.0); Mean Corpuscular Hemoglobin 28.2 pg (27.0-33.0); Mean Corpuscular Volume 86.4 fL (80.0-98.0); Mean Platelet Volume 8.6 fL (9.4-12.4); Monocytes Absolute Auto 1.6 X10*3/uL (0.1-1.2); Neutrophils Absolute Auto 10.2 x10*3/uL (2.0-8.3); Neutrophils Percent Auto 74.6 % (45-73); Platelet Count 664 X10*3/uL (160-400); Red Blood Count 3.54 X10*6/uL (4.60-5.80); Red Cell Distribution Width 13.6 % (11.0-16.0); SCAN SMEAR FLAG 1; White Blood Count 13.6 X10*3/uL (4.8-10.8)
[2021-05-14 06:02] LABS: Alanine Aminotransferase 47 U/L (0-40); Albumin Level 2.5 g/dL (3.5-5.0); Alkaline Phosphatase 78 U/L (39-117); Anion Gap 14 (12-20); Aspartate Amino Transferase 39 U/L (5-37); Bilirubin Total 0.5 mg/dL (0.0-1.0); Blood Urea Nitrogen 22 mg/dL (9-16); Calcium 8.1 mg/dL (8.4-10.2); Carbon Dioxide 25 mmol/L (22-29); Chloride 103 mmol/L (96-108); Creatinine Clr Calc Pharmacy 50.2; Estimated Glomerular Filt Rate 41; Glucose Fasting 117 mg/dL (60-99); Potassium 4.5 mmol/L (3.3-5.1); Sodium 137 mmol/L (135-145); Total Protein 6.8 g/dL (6.5-8.0)
[2021-05-14 06:15] LABS: SLIDE REVIEW VERIFIED
[2021-05-14] MEDS: 0.9 % Sodium Chloride Flush 3 ML SYRINGE IVFLUSH ×3 (07:04→22:07)
[2021-05-14] MEDS: Morphine Sulfate 2 MG/ML CARTRIDGE IVPUSH (07:04)
--- NOTE | 2021-05-14 08:05 | PM.PNGS ---
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 Gabapentin (Gabapentin 300 Mg Capsule) 300 mg PO TID [facility] Last Admin: 05/13/21 21:08 Dose: 300 mg Documented by: BETTINA Glucose (Glucose Gel 15 Gm Gel..Gram.) 15 gm PO Q15M PRN; Protocol PRN Reason: per Hypoglycemia Standing Ord. Heparin Sodium (Porcine) (Heparin Sodium,Porcine 5,000 Unit/Ml Vial) 5,000 unit SUBCUT Q12H [facility] Last Admin: 05/14/21 05:22 Dose: 5,000 unit Documented by: BETTINA Piperacillin Sod/Tazobactam (Sod 3.375 gm/ Sodium Chloride) 50 mls @ 100 mls/hr IV Q6H [facility] Last Infusion: 05/14/21 03:52 Dose: 0 mls/hr Documented by: BETTINA Insulin Human Lispro (Insulin Lispro 100 Unit/Ml 3 Ml Vial) 0 unit SUBCUT QIDACHS [facility]; Protocol Last Admin: 05/13/21 21:08 Dose: 6 unit Documented by: BETTINA Morphine Sulfate (Morphine Sulfate 2 Mg/Ml Cartridge) 2 mg IVPUSH Q4H PRN; Protocol PRN Reason: Pain, Mild (Pain Scale 1-3) Last Admin: 05/14/21 07:04 Dose: 2 mg Documented by: BETTINA Ondansetron HCl (Ondansetron Hcl 4 Mg/2 Ml Vial) 4 mg IVPUSH Q8H PRN PRN Reason: Nausea and Vomiting Pharmacy Consult (Consult Rx Perform Med Rec) 1 each MISCELLANE ONCE PRN PRN Reason: Consult order Pharmacy Consult (Consult Rx Vancomycin Dosing) 1 each MISCELLANE DAILY PRN PRN Reason: Consult order Sodium Chloride (0.9 % Sodium Chloride Flush 3 Ml Syringe) 3 ml IVFLUSH QSHIFT [facility] Last Admin: 05/14/21 07:04 Dose: 3 ml Documented by: BETTINA Labs CBC & Chem 7: 05/19/21 05:19 05/19/21 05:19 Labs: Laboratory Results - last 24 hr 05/13/21 05/13/21 05/13/21 12:18 14:38 16:38 MCV MCH MCHC RDW Plt Count MPV Immature Gran % (Auto) Neut % (Auto) Lymph % (Auto) [place] % (Auto) Eos % (Auto) Baso % (Auto) Lymph # (Auto) [place] # (Auto) Eos # (Auto) Baso # (Auto) Abs Immat Gran (auto) Absolute Neuts (auto) Absolute Nucleated RBC Nucleated RBC % (auto) Smear Tech's Comments Anion Gap Estim Creat Clear Calc Estimated GFR POC Glucose 123 H 125 H Fasting Glucose Calcium Total Bilirubin AST ALT Alkaline Phosphatase Total Protein Albumin Vancomycin Trough 7.4 L 05/13/21 05/14/21 05/14/21 20:17 05:19 05:20 MCV 86.4 MCH 28.2 MCHC 32.7 RDW 13.6 Plt Count 664 H MPV 8.6 L Immature Gran % (Auto) 0.4 Neut % (Auto) 74.6 H Lymph % (Auto) 10.7 L [place] % (Auto) 12.0 H Eos % (Auto) 1.9 Baso % (Auto) 0.4 Lymph # (Auto) 1.5 [place] # (Auto) 1.6 H Eos # (Auto) 0.3 Baso # (Auto) 0.1 Abs Immat Gran (auto) 0.06 H Absolute Neuts (auto) 10.2 H Absolute Nucleated RBC 0.000 Nucleated RBC % (auto) 0.0 Smear Tech's Comments VERIFIED Anion Gap 14 Estim Creat Clear Calc 50.2 Estimated GFR 41 POC Glucose 252 H Fasting Glucose 117 H Calcium 8.1 L Total Bilirubin 0.5 AST 39 H ALT 47 H Alkaline Phosphatase 78 Total Protein 6.8 Albumin 2.5 L Vancomycin Trough Microbiology Microbiology Results: Microbiology 05/11/21 14:41 Gram Stain - Final Foot Right Routine Culture - Final Staphylococcus aureus Strep agalactiae (Grp B) 05/11/21 15:36 Blood Culture - Preliminary Blood - Venous No growth after 48 hours. 05/11/21 14:41 Blood Culture - Preliminary Blood - Venous No growth after 48 hours. Procedures Date of Service Date of Service: 05/14/21 Progress Note: A&P Assessment and plan (1) Osteomyelitis: Status: Acute Assessment and Plan: dressings changed - ulcer appears dry today no cellulitis leukocytosis much improved IV antibiotics no weight-bearing on right foot wound care Fall Risk Details Current Medications: Current Medications Acetaminophen (Acetaminophen 325 Mg Tablet) 650 mg PO Q6H PRN PRN Reason: Pain, Mild (Pain Scale 1-3) Last Admin: 05/12/21 22:22 Dose: 650 mg Documented by: Dextrose (Dextrose 50 % 25 Gm/50 Ml Vial) 25 gm IVPUSH Q15M PRN; Protocol PRN Reason: per Hypoglycemia Standing Ord. Gabapentin (Gabapentin 300 Mg Capsule) 300 mg PO TID [facility] Last Admin: 05/13/21 21:08 Dose: 300 mg Documented by: Glucose (Glucose Gel 15 Gm Gel..Gram.) 15 gm PO Q15M PRN; Protocol PRN Reason: per Hypoglycemia Standing Ord. Heparin Sodium (Porcine) (Heparin Sodium,Porcine 5,000 Unit/Ml Vial) 5,000 unit SUBCUT Q12H [facility] Last Admin: 05/14/21 05:22 Dose: 5,000 unit Documented by: Piperacillin Sod/Tazobactam (Sod 3.375 gm/ Sodium Chloride) 50 mls @ 100 mls/hr IV Q6H [facility] Last Infusion: 05/14/21 03:52 Dose: Infused Documented by: Insulin Human Lispro (Insulin Lispro 100 Unit/Ml 3 Ml Vial) 0 unit SUBCUT QIDACHS [facility]; Protocol Last Admin: 05/13/21 21:08 Dose: 6 unit Documented by: Morphine Sulfate (Morphine Sulfate 2 Mg/Ml Cartridge) 2 mg IVPUSH Q4H PRN; Protocol PRN Reason: Pain, Mild (Pain Scale 1-3) Last Admin: 05/14/21 07:04 Dose: 2 mg Documented by: Ondansetron HCl (Ondansetron Hcl 4 Mg/2 Ml Vial) 4 mg IVPUSH Q8H PRN PRN Reason: Nausea and Vomiting Pharmacy Consult (Consult Rx Perform Med Rec) 1 each MISCELLANE ONCE PRN PRN Reason: Consult order Pharmacy Consult (Consult Rx Vancomycin Dosing) 1 each MISCELLANE DAILY PRN PRN Reason: Consult order Sodium Chloride (0.9 % Sodium Chloride Flush 3 Ml Syringe) 3 ml IVFLUSH QSHIFT [facility] Last Admin: 05/14/21 07:04 Dose: 3 ml Documented by: Time Spent With Patient Time: Total time spent is greater than 50% in coordination of care (as documented) at patient's floor/unit and/or counseling patient: Time with patient: 15 - 24 minutes Quality Stroke Does the patient have a stroke diagnosis?: No VTE Prior VTE?: No VTE Risk Level:: Medical - moderate - high VTE Device Contraindication: Treatment Not Indicated VTE Drug Contraindication: N/A - Med Ordered
[2021-05-14] MEDS: Gabapentin 300 MG CAPSULE PO ×3 (10:07→22:06)
--- NOTE | 2021-05-14 11:54 | P.PNIM_ITS ---
Subjective Subjective Date of Service: 05/14/21 Interval History: F/u on osteomylitis of the foot, no changes Review of Systems no fever pain in the foot Physical Exam Vital Signs: Vital Signs: Last Vital Signs Temp 96.8 F 05/14/21 11:42 Pulse 75 05/14/21 11:42 Resp 18 05/14/21 11:42 BP 127/73 05/14/21 11:42 Pulse Ox 97 05/14/21 11:42 BMI result Body Mass Index 34.1 Const: Other: Const General:?comfortable and no acute distress Nutritional Appearance:?obese Resp Effort & Inspection:?normal respiratory effort Cardio Rate:?regular rate GI Palpation (GI):?Soft to palpation and nontender Extrem Other:?Ulcer on dry aspect of forefoot, scanty serosanguineous drainage, no cellulitis General: cooperative, comfortable and no acute distress Nutritional Appearance: obese Orientation/consciousness: patient oriented x3 HENMT: Head: Yes normal to inspection Neck: Neck: Yes no lymphadenopathy Resp: Other: Clear to auscultation bilaterally no rales rhonchi wheezes Effort & Inspection: normal respiratory effort Auscultation: clear to auscultation bilaterally Cardio: Other: No S4; S1-S2; no S3 murmurs Os-Pankaj Rate: regular rate Rhythm: regular rhythm GI: Palpation (GI): Soft to palpation, nontender and no guarding Skin: General skin exam: no rashes or lesions noted Neuro: General: patient oriented x3 Extrem: Other: right foot - ulcer on plantar aspect, dry, no cellulitis Objective Data Active Medications Acetaminophen (Acetaminophen 325 Mg Tablet) 650 mg PO Q6H PRN PRN Reason: Pain, Mild (Pain Scale 1-3) Last Admin: 05/12/21 22:22 Dose: 650 mg Documented by: KATEY Dextrose (Dextrose 50 % 25 Gm/50 Ml Vial) 25 gm IVPUSH Q15M PRN; Protocol PRN Reason: per Hypoglycemia Standing Ord. Gabapentin (Gabapentin 300 Mg Capsule) 300 mg PO TID [facility] Last Admin: 05/14/21 10:07 Dose: 300 mg Documented by: ALANA Glucose (Glucose Gel 15 Gm Gel..Gram.) 15 gm PO Q15M PRN; Protocol PRN Reason: per Hypoglycemia Standing Ord. Heparin Sodium (Porcine) (Heparin Sodium,Porcine 5,000 Unit/Ml Vial) 5,000 unit SUBCUT Q12H [facility] Last Admin: 05/14/21 05:22 Dose: 5,000 unit Documented by: BETTINA Piperacillin Sod/Tazobactam (Sod 3.375 gm/ Sodium Chloride) 50 mls @ 100 mls/hr IV Q6H [facility] Last Infusion: 05/14/21 11:38 Dose: 0 mls/hr Documented by: ALANA Insulin Human Lispro (Insulin Lispro 100 Unit/Ml 3 Ml Vial) 0 unit SUBCUT QIDACHS [facility]; Protocol Last Admin: 05/14/21 10:08 Dose: Not Given Documented by: ALANA Non-Admin Reason: No Insulin Coverage Morphine Sulfate (Morphine Sulfate 2 Mg/Ml Cartridge) 2 mg IVPUSH Q4H PRN; Prot ocol PRN Reason: Pain, Mild (Pain Scale 1-3) Last Admin: 05/14/21 07:04 Dose: 2 mg Documented by: BETTINA Ondansetron HCl (Ondansetron Hcl 4 Mg/2 Ml Vial) 4 mg IVPUSH Q8H PRN PRN Reason: Nausea and Vomiting Pharmacy Consult (Consult Rx Perform Med Rec) 1 each MISCELLANE ONCE PRN PRN Reason: Consult order Pharmacy Consult (Consult Rx Vancomycin Dosing) 1 each MISCELLANE DAILY PRN PRN Reason: Consult order Sodium Chloride (0.9 % Sodium Chloride Flush 3 Ml Syringe) 3 ml IVFLUSH QSHIFT [facility] Last Admin: 05/14/21 07:04 Dose: 3 ml Documented by: BETTINA Labs CBC & Chem 7: 05/14/21 05:20 05/14/21 05:19 Labs: Laboratory Results - last 24 hr 05/13/21 05/13/21 05/13/21 12:18 14:38 16:38 MCV MCH MCHC RDW Plt Count MPV Immature Gran % (Auto) Neut % (Auto) Lymph % (Auto) [place] % (Auto) Eos % (Auto) Baso % (Auto) Lymph # (Auto) [place] # (Auto) Eos # (Auto) Baso # (Auto) Abs Immat Gran (auto) Absolute Neuts (auto) Absolute Nucleated RBC Nucleated RBC % (auto) Smear Tech's Comments Anion Gap Estim Creat Clear Calc Estimated GFR POC Glucose 123 H 125 H Fasting Glucose Calcium Total Bilirubin AST ALT Alkaline Phosphatase Total Protein Albumin Vancomycin Trough 7.4 L 05/13/21 05/14/21 05/14/21 20:17 05:19 05:20 MCV 86.4 MCH 28.2 MCHC 32.7 RDW 13.6 Plt Count 664 H MPV 8.6 L Immature Gran % (Auto) 0.4 Neut % (Auto) 74.6 H Lymph % (Auto) 10.7 L [place] % (Auto) 12.0 H Eos % (Auto) 1.9 Baso % (Auto) 0.4 Lymph # (Auto) 1.5 [place] # (Auto) 1.6 H Eos # (Auto) 0.3 Baso # (Auto) 0.1 Abs Immat Gran (auto) 0.06 H Absolute Neuts (auto) 10.2 H Absolute Nucleated RBC 0.000 Nucleated RBC % (auto) 0.0 Smear Tech's Comments VERIFIED Anion Gap 14 Estim Creat Clear Calc 50.2 Estimated GFR 41 POC Glucose 252 H Fasting Glucose 117 H Calcium 8.1 L Total Bilirubin 0.5 AST 39 H ALT 47 H Alkaline Phosphatase 78 Total Protein 6.8 Albumin 2.5 L Vancomycin Trough Microbiology Microbiology Results: Microbiology 05/11/21 14:41 Gram Stain - Final Foot Right Routine Culture - Final Staphylococcus aureus Strep agalactiae (Grp B) 05/11/21 15:36 Blood Culture - Preliminary Blood - Venous No growth after 48 hours. 05/11/21 14:41 Blood Culture - Preliminary Blood - Venous No growth after 48 hours. Assessment and Plan (1) Osteomyelitis: Status: Acute Assessment and Plan: 56 year old man admitted with osteomyelitis and pathological fracture to right foot. Previous diagnostic imaging studies did not show osteomyelitis. States was seen at [facility] earlier this week by Podiatry; was told he would need surgery in July to remove the infected bone. No records available at this time 1.Acute osteomyelitis With pathological fracture of 2nd metatarsal thus far culture negative continue Vancomycin/Zosyn ID recommends 6 weeks of Invanz upon dischare will get a joshi cath today 2.Type II DM Sliding scale, ADA diet Usually on Insulin Pump at home..Hold insulin pump, 3.NEEMA. CPAP at HS 4.CKD 3 Baseline Will consult renal at pt's request DVT prophylaxis with heparin Full code Quality Stroke Does the patient have a stroke diagnosis?: No VTE Prior VTE?: No VTE Risk Level:: Medical - moderate - high VTE Device Contraindication: Treatment Not Indicated VTE Drug Contraindication: N/A - Med Ordered
--- NOTE | 2021-05-14 12:04 | P.DS_ITS ---
DS: Providers Provider Date of Service: 05/14/21 Date of admission: 05/11/21 16:07 Primary care physician: Xochilt Singh MD Consults: 05/11/21 16:07 Consult to General Surgery Routine Consulting Provider: Zac Otero Reason for consultation: osteomyelitis, plantar foot wound Has provider been notified: No 05/11/21 16:10 Consult to Infectious Diseases Routine Consulting Provider: Angela Vargas Reason for consultation: osteomyelitis Has provider been notified: No DS: Diagnosis Discharge Diagnosis (1) Osteomyelitis: Status: Acute DS: Summary Hospital Course Hospital Course: ?56-year-old [place]an-speaking male with complaints of right plantar foot pain.? He reported some chills without fever.? He reported that he goes to the wound clinic and recently he had a skin graft for fake Skin placed on the wound and after that he noticed that there was more drainage and the pain was worse this was approximately a week ago.? He has had this wound for over a year but imaging studies have not showed osteomyelitis.? Today in the ER foot x-ray shows pathological fracture of 2nd metatarsal with changes of osteomyelitis.? White blood cell count 16.0, no fever, normal lactic acid.? He was given vancomycin, Zosyn in the ER.? He will be admitted for further management and treatment of acute osteomyelitis to right foot diabetic foot wound. Hospital course: He presented with right foot pain in the plantar aspect with associated open wound. xray showed 1. Pathologic fracture of neck second metatarsal, changes of osteomyelitis at fracture site. 2. Prior amputation third digit. Question early cortical erosion plantar side metatarsal head. Wound culture grew MSSA and group B strep. While in the hospital has been treated with Vancomycin and Zosyn and subsequently transitioned to meropenem, patient seen by infectious disease and she is recommending 6 weeks of IV ertapenem, patient received 19 days of antibiotic in house therefore being discharged on IV ertapenem for 23 more days, Joshi catheter has been placed given CKD. Surgery saw and recommends non-weight bearing to the foot. Patient seen by Dr. Wang noninvasive testing revealed SFA and popliteal disease on the right endovascular intervention is recommended as outpatient recommend patient to have outpatient follow-up with Dr. Wang in next 1-2 weeks. Patient is now being discharged with [facility] services for home infusion and dressings. Time Spent with Patient Time attestation: Total time spent providing and/or coordinating discharge services: Discharge coordination time: Greater than 30 minutes Quality: Stroke Does the patient have a stroke diagnosis?: No Physical Exam Verdana 4l Vital Signs: Verdana 4d Verdana 4d Vital Signs: Verdana 4d Verdana 4Bd Last Vital Signs Verdana 4d Traffic Survey Technician New 4d Traffic Survey Technician New 4d Temp 96.8 F 05/14/21 11:42 Traffic Survey Technician New 4d Pulse 75 05/14/21 11:42 Traffic Survey Technician New 4d Resp 18 05/14/21 11:42 BP 127/73 05/14/21 11:42 Pulse Ox 97 05/14/21 11:42 BMI result Body Mass Index 34.1 DS: Data Data Completed and Pending Labs on day of discharge: Laboratory Results - last 24 hr 05/13/21 05/13/21 05/13/21 12:18 14:38 16:38 WBC RBC Hgb Hct MCV MCH MCHC RDW Plt Count MPV Immature Gran % (Auto) Neut % (Auto) Lymph % (Auto) [place] % (Auto) Eos % (Auto) Baso % (Auto) Lymph # (Auto) [place] # (Auto) Eos # (Auto) Baso # (Auto) Abs Immat Gran (auto) Absolute Neuts (auto) Absolute Nucleated RBC Nucleated RBC % (auto) Smear Tech's Comments Sodium Potassium Chloride Carbon Dioxide Anion Gap BUN Creatinine Estim Creat Clear Calc Estimated GFR POC Glucose 123 H 125 H Fasting Glucose Calcium Total Bilirubin AST ALT Alkaline Phosphatase Total Protein Albumin Vancomycin Trough 7.4 L 05/13/21 05/14/21 05/14/21 20:17 05:19 05:20 WBC 13.6 H RBC 3.54 L Hgb 10.0 L Hct 30.6 L MCV 86.4 MCH 28.2 MCHC 32.7 RDW 13.6 Plt Count 664 H MPV 8.6 L Immature Gran % (Auto) 0.4 Neut % (Auto) 74.6 H Lymph % (Auto) 10.7 L [place] % (Auto) 12.0 H Eos % (Auto) 1.9 Baso % (Auto) 0.4 Lymph # (Auto) 1.5 [place] # (Auto) 1.6 H Eos # (Auto) 0.3 Baso # (Auto) 0.1 Abs Immat Gran (auto) 0.06 H Absolute Neuts (auto) 10.2 H Absolute Nucleated RBC 0.000 Nucleated RBC % (auto) 0.0 Smear Tech's Comments VERIFIED Sodium 137 Potassium 4.5 Chloride 103 Carbon Dioxide 25 Anion Gap 14 BUN 22 H Creatinine 1.72 H Estim Creat Clear Calc 50.2 Estimated GFR 41 POC Glucose 252 H Fasting Glucose 117 H Calcium 8.1 L Total Bilirubin 0.5 AST 39 H ALT 47 H Alkaline Phosphatase 78 Total Protein 6.8 Albumin 2.5 L Vancomycin Trough Preliminary micro results at discharge 05/11/21 15:36 Blood Culture - Preliminary Blood - Venous No growth after 48 hours. 05/11/21 14:41 Blood Culture - Preliminary Blood - Venous No growth after 48 hours. Discharge Plan Discharge Patient Disposition: Home Health Service Discharge Diagnosis: Osteomylitis of the foot Referrals: [facility], [Other] - 1 Day (PROVIDER OF THE IV ANTIBIOTIC AND JOSHI CATH DRESSINGS AND ALL RELATED SUPPLIES AND FLUSHES AND DRESSINGS,) [facility] [Outside] - 1 Day ([facility] for joshi cath if antibiotic administration teaching and follow up with flushing and joshi cath dressing changes, and 2, dressing and wound care assessment and monitoring -right plantar diavbetic foot ulcer slowly healing, cleansed with normal saline, see discharge instructions for finalized orders 3 dr addie dwyer primary care physician for post hospital discharge follow up 3 dr carolann chen id [phone] [facility] [address] [facility] 4 transportation family) Xochilt Mckoy MD [Primary Care Provider] - 1 Week Discharge Medications: New ertapenem [Invanz] 1 gram recon soln 1 g IV DAILY Qty: 23 0RF Continued (DME) FreeStyle Precision Harshad Strips Strip See Rx Instructions .ROUTE .MEDSUPPLY Qty: 25 11RF Rx Instructions: As directed once daily (DME) compression stockings 20 mmHg See Rx Instructions .Route .MEDSUPPLY Qty: 1 0RF Rx Instructions: As directed insulin lispro [Humalog U-100 Insulin] 100 unit/mL solution See Rx Instructions subcut DAILY 30 Days Qty: 40 4RF Rx Instructions: 110 units daily via insulin pump subcut daily; via insulin pump subcut daily; (DME) insulin syringe-needle U-100 [BD Veo Insulin Syringe UF] 1/2 mL 31 gauge x 15/64 syringe See Rx Instructions .Route 0RF Rx Instructions: As directed (DME) pen needle, diabetic [BD Ultra-Fine Roberta Pen Needle] 32 gauge x 5/32 needle See Rx Instructions .Route Qty: 30 5RF Rx Instructions: As directed daily (DME) Omnipod Insulin Management Misc MISCELLANEOUS 0RF Trulicity 3 mg/0.5 mL pen injector 3 mg subcut TU@1000 0RF (DME) diabetic shoe inserts 11.5 See Rx Instructions .Route .MEDSUPPLY Qty: 1 0RF Rx Instructions: As directed (DME) blood sugar diagnostic Strip See Rx Instructions ea Not Applicable DAILY Qty: 10 0RF Rx Instructions: As directed (DME) FreeStyle Lite Strips Strip See Rx Instructions .ROUTE .MEDSUPPLY Qty: 150 11RF Rx Instructions: 4 times a day (DME) lancets Misc See Rx Instructions ea Not Applicable .MEDSUPPLY Qty: 200 11RF Rx Instructions: As directed 4x//day No Action aspirin 81 mg tablet,chewable 81 mg PO DAILY Qty: 90 3RF clopidogrel [Plavix] 75 mg tablet 75 mg PO DAILY Qty: 90 1RF gabapentin 100 mg capsule 200 mg PO TID PRN (Reason: pain (scale score 7-10)) Qty: 180 0RF doxycycline monohydrate 100 mg capsule 100 mg PO BID 30 Days Qty: 60 0RF Discharge Orders: Discharge Order (Routine); Ordered 06/01/21 Ordered By: Bhupendra Dia Diet: advance to usual diet and diabetic diet Activity on Discharge: As tolerated Stand Alone Forms: Patient Portal Discharge page Care Plan Goals: resolution of osteomylitis and to avoid amputation Health Concerns: Osteomylitis Plan of Treatment: IV Invanz for 23 days, home with [facility]NA No weight bearing to the right and follow up with wound care Outpatient follow-up with Dr. Wang call to make appointment in next 1-2 weeks Cleans with normal saline, apply silver alginate to wound bed, cover with gauze and use roll gauze Assessment: as above Discharge Date/Time: 06/01/21 17:15
--- NOTE | 2021-05-14 12:57 | MHC.CM.PN ---
CM DISCUSSED CASE W/HOSPITALIST/LIAISON FROM [facility] AND PT'S CM, IV ABX FORM COMPLETED, FAXED TO [facility] AND COPY GIVEN TO [facility] LIAISON, PER HOSPITALIST PT WILL BE GETTING HIS PICC LINE PLACED TODAY AND THEREFORE WILL BE ABLE TO D/C AFTER HIS FIRST DOSE OF ERTAPENEM THROUGH PICC, PT'S ABX WILL BE DELIVERED BY TOMORROW AND [facility] REPORT THEY CAN TAKE PT AND SOC WILL BE TOMORROW AFTERNOON. D/C PLAN: HOME W/[facility] FOR IV ABX/PICC LINE MGMT & [facility] FOR IV ABX DELIVERY, FAMILY FOR TRANSPORT.
[2021-05-14 13:18] LABS: Glucose, Whole Blood 144 mg/dL (60-115)
--- NOTE | 2021-05-14 15:12 | MHC.CLN ---
NUTRITION CONSULT CONSULT FOR SKIN/WOUND. WOUND IS DIABETIC ULCER, NOT PRESSURE INJURY. NO ADDITIONAL NUTRITION INTERVENTIONS AT THIS TIME.
--- NOTE | 2021-05-14 15:35 | PM.CNNEP ---
History of Present Illness Reason for Consult Consult date: 05/14/21 Chief Complaint Chief complaint: Osteomyelitis History of Present Illness Narrative: 56-year-old Albanian-speaking male presented to hospital with right plantar foot pain associated with some chills without fever.? He has had this wound for sometime but imaging studies have now showed osteomyelitis.? White blood cell count 16.0, no fever, normal lactic acid.? He was given vancomycin, Zosyn in the ER and was admitted for further management and treatment of acute osteomyelitis to right foot diabetic foot wound. His renal functions had been declining slowly over few years. He is in need of an access for IV antibiotics for 6 weeks. 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 Brother No problems noted. Son No problems noted. Daughter In good health Maternal Grandmother DM (diabetes mellitus) Stroke Family history: reviewed and not pertinent Surgical History Surgical History History of eye surgery 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 History of tonsillectomy and adenoidectomy Hx laparoscopic cholecystectomy S/P cataract surgery S/P debridement S/P tooth extraction Status post amputation of toe Social History Social History Household Members: None Housing: Apartment Do you presently have visiting nurse or other home services: Yes (daughter is ENGLISH AND READING INSTRUCTOR) Alcohol intake: never Patient Tobacco Use Status: Never used Tobacco e-Cigarette/Vaping Use: Never Used Second Hand Smoke Exposure: No Substance Use Type: Marijuana service: No Current occupational status: disabled Meds Allergies Allergy/AdvReac Type Severity Reaction Status Date / Time Sulfa (Sulfonamide Allergy Intermediate hives Verified 03/25/21 13:42 Antibiotics) [SULFA (SULFONAMIDE ANTIBIOTICS)] Active Medications: Current Medications Acetaminophen (Acetaminophen 325 Mg Tablet) 650 mg PO Q6H PRN PRN Reason: Pain, Mild (Pain Scale 1-3) Last Admin: 05/12/21 22:22 Dose: 650 mg Documented by: Dextrose (Dextrose 50 % 25 Gm/50 Ml Vial) 25 gm IVPUSH Q15M PRN; Protocol PRN Reason: per Hypoglycemia Standing Ord. Gabapentin (Gabapentin 300 Mg Capsule) 300 mg PO TID [facility] Last Admin: 05/14/21 10:07 Dose: 300 mg Documented by: Glucose (Glucose Gel 15 Gm Gel..Gram.) 15 gm PO Q15M PRN; Protocol PRN Reason: per Hypoglycemia Standing Ord. Heparin Sodium (Porcine) (Heparin Sodium,Porcine 5,000 Unit/Ml Vial) 5,000 unit SUBCUT Q12H [facility] Last Admin: 05/14/21 05:22 Dose: 5,000 unit Documented by: Piperacillin Sod/Tazobactam (Sod 3.375 gm/ Sodium Chloride) 50 mls @ 100 mls/hr IV Q6H [facility] Last Infusion: 05/14/21 11:38 Dose: Infused Documented by: Insulin Human Lispro (Insulin Lispro 100 Unit/Ml 3 Ml Vial) 0 unit SUBCUT QIDACHS [facility]; Protocol Last Admin: 05/14/21 13:47 Dose: Not Given Documented by: Morphine Sulfate (Morphine Sulfate 2 Mg/Ml Cartridge) 2 mg IVPUSH Q4H PRN; Protocol PRN Reason: Pain, Mild (Pain Scale 1-3) Last Admin: 05/14/21 07:04 Dose: 2 mg Documented by: Ondansetron HCl (Ondansetron Hcl 4 Mg/2 Ml Vial) 4 mg IVPUSH Q8H PRN PRN Reason: Nausea and Vomiting Pharmacy Consult (Consult Rx Perform Med Rec) 1 each MISCELLANE ONCE PRN PRN Reason: Consult order Pharmacy Consult (Consult Rx Vancomycin Dosing) 1 each MISCELLANE DAILY PRN PRN Reason: Consult order Sodium Chloride (0.9 % Sodium Chloride Flush 3 Ml Syringe) 3 ml IVFLUSH QSHIFT [facility] Last Admin: 05/14/21 07:04 Dose: 3 ml Documented by: Home Medications Medication Instructions Recorded Confirmed Last Taken Type blood sugar diagnostic #10 ea 04/01/20 03/25/21 Unknown History insulin syringe-needle U-100 1/2 04/21/21 Unknown History mL 31 gauge x 15/64 (BD Veo Insulin Syringe Ultra-Fine) dulaglutide 3 mg/0.5 mL 3 mg SUBCUT TU@1000 05/11/21 05/11/21 Unknown History subcutaneous pen injector (Trulicity) subcutaneous insulin pump (Omnipod 05/11/21 05/11/21 Unknown History Insulin Management) Physical Exam Vital Signs: Last Vital Signs Temp 96.8 F 05/14/21 11:42 Pulse 75 05/14/21 11:42 Resp 18 05/14/21 11:42 BP 127/73 05/14/21 11:42 Pulse Ox 97 05/14/21 11:42 BMI result Body Mass Index 34.1 Const General: no acute distress Orientation/consciousness: patient oriented x3 Eyes EOM: EOMs intact bilaterally Neck Neck: Yes supple Resp Auscultation: diminished lung sounds Cardio Rate: regular rate GI Palpation (GI): Soft to palpation Neuro General: patient oriented x3 and moves all extremities Results Lab Results Result Diagrams: 05/14/21 05:20 05/14/21 05:19 Lab results: Chemistry 05/12/21 05/13/21 05/14/21 06:50 06:13 05:19 Sodium 137 136 137 Potassium 4.4 4.4 4.5 Carbon Dioxide 28 26 25 BUN 16 18 H 22 H Creatinine 1.48 H 1.52 H 1.72 H Calcium 8.2 L 8.5 8.1 L Hematology 05/12/21 05/13/21 05/14/21 06:50 06:13 05:20 WBC 16.4 H 18.2 H 13.6 H Hgb 10.2 L 10.6 L 10.0 L Plt Count 620 H 701 H 664 H Urinalysis 05/11/21 15:36 Urine Color YELLOW Urine Appearance CLEAR Urine pH 5.5 Ur Specific [place] >= 1.030 H Urine Protein 3+ H Urine Glucose (UA) NEG Urine Ketones NEG Urine Blood 1+ H Urine Nitrite NEG Ur Leukocyte Esterase NEG Urine RBC 1-4 Urine WBC 0-2 Ur Squamous Epith Cells NONE Hyaline Casts 0-2 Assessment and Plan (1) CKD stage G3b/A2, GFR 30-44 and albumin creatinine ratio 30-299 mg/g: Status: Acute Has progressive renal disease Serum creatinine fairly close to baseline Serum Potassium normal No NSAID's/ACEI/ARB for now Needs to have Antunez and NOT PICC line Shall arrange close office follow up when D/[place] Procedures Date of Service Date of Service: 05/14/21
[2021-05-14 15:58] LABS: Vancomycin Trough 13.7 mcg/mL (10.0-20.0)
--- NOTE | 2021-05-14 16:03 | MHC.CM.PN ---
nurse medicare sales representative note electronic medical record reviewed along with case discussed with hospitalist on multiple disciplinary rounds ,met with patient and hunter cheema interperter patient understands the concerns we have for his safety noted in er physician report and hospitalist h/p patient admitted to smoking crack cocaine and , but stopped 2 months agoa, and uses marijuana. [facility] for iv ERAPENUM 1 GM QD FOR 6 WEEKS [facility] FOR FOR NURSING AND MEDICATION ABOVE REFERRALS ARE BOTH NOW ON HOLD SECONDARY TO NEW HISTORY OF SUBSTANCE ABUSE. THIS WAS REPORTED TO PATIENTS PHYSICIAN ?WHWTHER THE CHASE CATH WILL BE PLACED TODAY OR NOT PATIENT WILLING TO GO TO REHABS AROUND HERE BUT NOT TO [facility]. nursing facilities - referrals iniated to [facility] contracts case fitter to follow up in the am
[2021-05-14 16:15] LABS: Glucose, Whole Blood 134 mg/dL (60-115)
[2021-05-14 16:30] LABS: INTERNATIONAL NORM RATIO 1.2 (0.9-1.1); Prothrombin Time 13.8 SEC (9.9-13.0)
[2021-05-14] MEDS: Lidocaine HCl 1 % MPF 5 ML VIAL SUBCUT (18:50)
[2021-05-14 20:40] LABS: Glucose, Whole Blood 120 mg/dL (60-115)
[2021-05-15] VITALS (7 sets, daily range): BP systolic 118–131; BP diastolic 58–71; PULSE 68–74; RESP 16–20; TEMP 36.5–37.1; O2SAT 96–99
[2021-05-15] MEDS: Piperacillin Sodium/Tazobactam 3.375 GM in 0.9 % Sodium Chloride 50 ML IV ×4 (03:57→22:06)
[2021-05-15] MEDS: Morphine Sulfate 2 MG/ML CARTRIDGE IVPUSH (03:57)
[2021-05-15 05:53] LABS: MANUAL DIFF FLAG NO
[2021-05-15] MEDS: Heparin Sodium,Porcine 5,000 UNIT/ML VIAL 5000 UNIT SUBCUT ×2 (05:59→17:28)
[2021-05-15 06:18] LABS: Alanine Aminotransferase 43 U/L (0-40); Albumin Level 2.6 g/dL (3.5-5.0); Alkaline Phosphatase 68 U/L (39-117); Anion Gap 15 (12-20); Aspartate Amino Transferase 38 U/L (5-37); Bilirubin Total 0.5 mg/dL (0.0-1.0); Blood Urea Nitrogen 36 mg/dL (9-16); Carbon Dioxide 25 mmol/L (22-29); Chloride 103 mmol/L (96-108); Creatinine Clr Calc Pharmacy 26.7; Estimated Glomerular Filt Rate 20; Glucose Fasting 150 mg/dL (60-99); Potassium 5.1 mmol/L (3.3-5.1); Sodium 138 mmol/L (135-145); Total Protein 7.1 g/dL (6.5-8.0)
[2021-05-15 06:31] LABS: Basophils Absolute Auto 0.1 X10*3/uL (0.0-0.2); Basophils Percent Auto 0.4 % (0-2); Eosinophils Absolute Auto 0.2 X10*3/uL (0.0-0.4); Eosinophils Percent Auto 1.9 % (0-4); Hemoglobin 9.9 g/dl (14.0-18.0); Imm Gran Abs Auto 0.05 X10*3/uL (0.00-0.03); Imm Gran Pct Auto 0.4 % (0.0-0.4); Lymphocytes Absolute Auto 1.8 X10*3/uL (1.2-4.9); Lymphocytes Percent Auto 13.7 % (20-40); Mean Corpuscular HGB Conc 31.9 g/dl (31.0-36.0); Mean Corpuscular Volume 87.8 fL (80.0-98.0); Mean Platelet Volume 8.7 fL (9.4-12.4); Monocytes Absolute Auto 1.4 X10*3/uL (0.1-1.2); Monocytes Percent Auto 10.9 % (2-11); Neutrophils Absolute Auto 9.4 x10*3/uL (2.0-8.3); Neutrophils Percent Auto 72.7 % (45-73); Platelet Count 693 X10*3/uL (160-400); Red Blood Count 3.53 X10*6/uL (4.60-5.80); Red Cell Distribution Width 13.9 % (11.0-16.0)
[2021-05-15 07:14] LABS: Glucose, Whole Blood 146 mg/dL (60-115)
--- NOTE | 2021-05-15 08:57 | HO.PM.IMPN ---
Subjective Subjective Date of Service: 05/15/21 Interval History: F/u on osteomylitis of the foot, no changes, antunez cath placed yesterday Review of Systems no fever pain in the foot Physical Exam Vital Signs: Vital Signs: Last Vital Signs Temp 97.8 F 05/15/21 07:04 Pulse 74 05/15/21 07:04 Resp 16 05/15/21 07:04 BP 119/65 05/15/21 07:04 Pulse Ox 99 05/15/21 07:04 BMI result Body Mass Index 34.1 Const: Other: Const General:?comfortable and no acute distress Nutritional Appearance:?obese Resp Effort & Inspection:?normal respiratory effort Cardio Rate:?regular rate GI Palpation (GI):?Soft to palpation and nontender Extrem Other:?Ulcer on dry aspect of forefoot, scanty serosanguineous drainage, no cellulitis Objective Data Active Medications Acetaminophen (Acetaminophen 325 Mg Tablet) 650 mg PO Q6H PRN PRN Reason: Pain, Mild (Pain Scale 1-3) Last Admin: 05/12/21 22:22 Dose: 650 mg Documented by: KATEY Dextrose (Dextrose 50 % 25 Gm/50 Ml Vial) 25 gm IVPUSH Q15M PRN; Protocol PRN Reason: per Hypoglycemia Standing Ord. Gabapentin (Gabapentin 300 Mg Capsule) 300 mg PO TID [facility] Last Admin: 05/14/21 22:06 Dose: 300 mg Documented by: FCO Glucose (Glucose Gel 15 Gm Gel..Gram.) 15 gm PO Q15M PRN; Protocol PRN Reason: per Hypoglycemia Standing Ord. Heparin Sodium (Porcine) (Heparin Sodium,Porcine 5,000 Unit/Ml Vial) 5,000 unit SUBCUT Q12H [facility] Last Admin: 05/15/21 05:59 Dose: 5,000 unit Documented by: FCO Piperacillin Sod/Tazobactam (Sod 3.375 gm/ Sodium Chloride) 50 mls @ 100 mls/hr IV Q6H [facility] Last Infusion: 05/15/21 04:33 Dose: 0 mls/hr Documented by: FCO Insulin Human Lispro (Insulin Lispro 100 Unit/Ml 3 Ml Vial) 0 unit SUBCUT QIDACHS [facility]; Protocol Last Admin: 05/15/21 07:34 Dose: Not Given Documented by: HO.COTEMA Non-Admin Reason: No Insulin Coverage Morphine Sulfate (Morphine Sulfate 2 Mg/Ml Cartridge) 2 mg IVPUSH Q4H PRN; Protocol PRN Reason: Pain, Mild (Pain Scale 1-3) Last Admin: 05/15/21 03:57 Dose: 2 mg Documented by: FCO Ondansetron HCl (Ondansetron Hcl 4 Mg/2 Ml Vial) 4 mg IVPUSH Q8H PRN PRN Reason: Nausea and Vomiting Pharmacy Consult (Consult Rx Perform Med Rec) 1 each MISCELLANE ONCE PRN PRN Reason: Consult order Pharmacy Consult (Consult Rx Vancomycin Dosing) 1 each MISCELLANE DAILY PRN PRN Reason: Consult order Sodium Chloride (0.9 % Sodium Chloride Flush 3 Ml Syringe) 3 ml IVFLUSH QSHIFT [facility] Last Admin: 05/14/21 22:07 Dose: 3 ml Documented by: FCO Labs CBC & Chem 7: 05/15/21 05:44 05/15/21 05:44 Labs: Laboratory Results - last 24 hr 05/14/21 05/14/21 05/14/21 13:15 14:58 15:57 MCV MCH MCHC RDW Plt Count MPV Immature Gran % (Auto) Neut % (Auto) Lymph % (Auto) [place] % (Auto) Eos % (Auto) Baso % (Auto) Lymph # (Auto) [place] # (Auto) Eos # (Auto) Baso # (Auto) Abs Immat Gran (auto) Absolute Neuts (auto) Absolute Nucleated RBC Nucleated RBC % (auto) PT 13.8 H INR 1.2 H Anion Gap Estim Creat Clear Calc Estimated GFR POC Glucose 144 H Fasting Glucose Calcium Total Bilirubin AST ALT Alkaline Phosphatase Total Protein Albumin Vancomycin Trough 13.7 05/14/21 05/14/21 05/15/21 15:58 20:01 05:44 MCV 87.8 MCH 28.0 MCHC 31.9 RDW 13.9 Plt Count 693 H MPV 8.7 L Immature Gran % (Auto) 0.4 Neut % (Auto) 72.7 Lymph % (Auto) 13.7 L [place] % (Auto) 10.9 Eos % (Auto) 1.9 Baso % (Auto) 0.4 Lymph # (Auto) 1.8 [place] # (Auto) 1.4 H Eos # (Auto) 0.2 Baso # (Auto) 0.1 Abs Immat Gran (auto) 0.05 H Absolute Neuts (auto) 9.4 H Absolute Nucleated RBC 0.000 Nucleated RBC % (auto) 0.0 PT INR Anion Gap Estim Creat Clear Calc Estimated GFR POC Glucose 134 H 120 H Fasting Glucose Calcium Total Bilirubin AST ALT Alkaline Phosphatase Total Protein Albumin Vancomycin Trough 05/15/21 05/15/21 05:44 07:07 MCV MCH MCHC RDW Plt Count MPV Immature Gran % (Auto) Neut % (Auto) Lymph % (Auto) [place] % (Auto) Eos % (Auto) Baso % (Auto) Lymph # (Auto) [place] # (Auto) Eos # (Auto) Baso # (Auto) Abs Immat Gran (auto) Absolute Neuts (auto) Absolute Nucleated RBC Nucleated RBC % (auto) PT INR Anion Gap 15 Estim Creat Clear Calc 26.7 Estimated GFR 20 POC Glucose 146 H Fasting Glucose 150 H Calcium 8.0 L Total Bilirubin 0.5 AST 38 H ALT 43 H Alkaline Phosphatase 68 Total Protein 7.1 Albumin 2.6 L Vancomycin Trough Microbiology Microbiology Results: Microbiology 05/11/21 14:41 Gram Stain - Final Foot Right Routine Culture - Final Staphylococcus aureus Strep agalactiae (Grp B) Assessment and Plan (1) Osteomyelitis: Status: Acute Assessment and Plan: 56 year old man admitted with osteomyelitis and pathological fracture to right foot. Previous diagnostic imaging studies did not show osteomyelitis. States was seen at [facility] earlier this week by Podiatry; was told he would need surgery in July to remove the infected bone. No records available at this time 1.Acute osteomyelitis With pathological fracture of 2nd metatarsal, wound culture = MSSA and GBS, has been on Vanco/Zosyn since admission. ID recommends 6 weeks of Invanz upon dischare, while in hospital will use meropenem Antunez cath placed 05/14 d/t CKD 2.Type II DM Sliding scale, ADA diet Usually on Insulin Pump at home..Hold insulin pump, 3.NEEMA. CPAP at HS 4.CKD 3 Baseline Will consult renal at pt's request DVT prophylaxis with heparin Full code Will need to go SNF for IV Abx as not able to go home with Antunez cath d/t drug use history , he is agreable to this. Quality Stroke Does the patient have a stroke diagnosis?: No VTE Prior VTE?: No VTE Risk Level:: Medical - moderate - high VTE Device Contraindication: Treatment Not Indicated VTE Drug Contraindication: N/A - Med Ordered
[2021-05-15] MEDS: Gabapentin 300 MG CAPSULE PO ×3 (09:05→22:05)
[2021-05-15] MEDS: 0.9 % Sodium Chloride Flush 3 ML SYRINGE IVFLUSH ×3 (09:06→22:06)
--- NOTE | 2021-05-15 09:53 | MHC.CM.PN ---
CM MET WITH PT TO OBTAIN HIS COVID VACCINATION STATUS PT REPORTS HE IS FULLY VACCINATED AND PROVIDES HIS CARD. CARD WAS COPIED AND SCANNED INTO [facility] REFERRALS WERE RESENT WITH COVID VAX STATUS UPDATE PT WILL NEED SNF PLACEMENT FOR 6 WEEKS OF IV ABX PT WILL BE UNABLE TO DC PRIOR TO MONDAY HIS INSURANCE REQUIRES PRIOR AUTH
[2021-05-15 11:44] LABS: Glucose, Whole Blood 183 mg/dL (60-115)
[2021-05-15] MEDS: Insulin Lispro 100 UNIT/ML 3 ML VIAL SUBCUT ×2 (11:55→22:06)
--- NOTE | 2021-05-15 15:23 | MHC.CM.PN ---
REFERRALS UPDATED TO INCLUDE [facility]. OF THIS NOTE, NO BED OFFER AND INSURANCE WILL NEED TO BE VERIFIED PRIOR TO INSURANCE DOES NOT HAVE AUTH CAPABILITY FOR REHAB FACILITIES ON WEEKENDS.
--- NOTE | 2021-05-15 16:13 | PM.PNNEP ---
Subjective Subjective Date of Service: 05/15/21 Interval history: Renal function worse; joshi cath placed yesterday Physical Exam Vital Signs: Vital Signs: Last Vital Signs Temp 98.1 F 05/15/21 15:41 Pulse 71 05/15/21 15:41 Resp 18 05/15/21 15:41 BP 126/58 L 05/15/21 15:41 Pulse Ox 97 05/15/21 15:41 BMI result Body Mass Index 34.1 Const: General: alert Orientation/consciousness: patient oriented x3 Eyes: EOM: EOMs intact bilaterally Neck: Neck: Yes supple Resp: Auscultation: diminished lung sounds Cardio: Rate: regular rate GI: Palpation (GI): Soft to palpation Neuro: General: patient oriented x3 and moves all extremities Objective Data Labs CBC & Chem 7: 05/15/21 05:44 05/15/21 05:44 Labs: Laboratory Results - last 24 hr 05/14/21 05/14/21 05/14/21 15:57 15:58 20:01 WBC RBC Hgb Hct MCV MCH MCHC RDW Plt Count MPV Immature Gran % (Auto) Neut % (Auto) Lymph % (Auto) [place] % (Auto) Eos % (Auto) Baso % (Auto) Lymph # (Auto) [place] # (Auto) Eos # (Auto) Baso # (Auto) Abs Immat Gran (auto) Absolute Neuts (auto) Absolute Nucleated RBC Nucleated RBC % (auto) PT 13.8 H INR 1.2 H Sodium Potassium Chloride Carbon Dioxide Anion Gap BUN Creatinine Estim Creat Clear Calc Estimated GFR POC Glucose 134 H 120 H Fasting Glucose Calcium Total Bilirubin AST ALT Alkaline Phosphatase Total Protein Albumin 05/15/21 05/15/21 05/15/21 05:44 05:44 07:07 WBC 13.0 H RBC 3.53 L Hgb 9.9 L Hct 31.0 L MCV 87.8 MCH 28.0 MCHC 31.9 RDW 13.9 Plt Count 693 H MPV 8.7 L Immature Gran % (Auto) 0.4 Neut % (Auto) 72.7 Lymph % (Auto) 13.7 L [place] % (Auto) 10.9 Eos % (Auto) 1.9 Baso % (Auto) 0.4 Lymph # (Auto) 1.8 [place] # (Auto) 1.4 H Eos # (Auto) 0.2 Baso # (Auto) 0.1 Abs Immat Gran (auto) 0.05 H Absolute Neuts (auto) 9.4 H Absolute Nucleated RBC 0.000 Nucleated RBC % (auto) 0.0 PT INR Sodium 138 Potassium 5.1 Chloride 103 Carbon Dioxide 25 Anion Gap 15 BUN 36 H D Creatinine 3.23 H Estim Creat Clear Calc 26.7 Estimated GFR 20 POC Glucose 146 H Fasting Glucose 150 H Calcium 8.0 L Total Bilirubin 0.5 AST 38 H ALT 43 H Alkaline Phosphatase 68 Total Protein 7.1 Albumin 2.6 L 05/15/21 11:19 WBC RBC Hgb Hct MCV MCH MCHC RDW Plt Count MPV Immature Gran % (Auto) Neut % (Auto) Lymph % (Auto) [place] % (Auto) Eos % (Auto) Baso % (Auto) Lymph # (Auto) [place] # (Auto) Eos # (Auto) Baso # (Auto) Abs Immat Gran (auto) Absolute Neuts (auto) Absolute Nucleated RBC Nucleated RBC % (auto) PT INR Sodium Potassium Chloride Carbon Dioxide Anion Gap BUN Creatinine Estim Creat Clear Calc Estimated GFR POC Glucose 183 H Fasting Glucose Calcium Total Bilirubin AST ALT Alkaline Phosphatase Total Protein Albumin Microbiology Microbiology Results: Microbiology 05/11/21 14:41 Foot Right Gram Stain - Final 05/11/21 14:41 Foot Right Routine Culture - Final Staphylococcus aureus Strep agalactiae (Grp B) 05/11/21 15:36 Blood - Venous Blood Culture - Preliminary No growth after 48 hours. 05/11/21 14:41 Blood - Venous Blood Culture - Preliminary No growth after 48 hours. Procedures Date of Service Date of Service: 05/15/21 Assessment & Plan Assessment and plan (1) VANESSA (acute kidney injury): Status: Acute Assessment and Plan: VANESSA due to tubular injury Differential paige infectious GN/ AIN serum creatinine not plateaued C3/C4/Urine studies ordered May need a renal USS( unlikely obstruction) All medication dose should be for GFR Continue current supportive care for now Labs AM. Shall follow up Time Spent With Patient Time: Total time spent is greater than 50% in coordination of care (as documented) at patient's floor/unit and/or counseling patient: Progress Note: Quality Stroke Does the patient have a stroke diagnosis?: No
[2021-05-15 16:46] LABS: Glucose, Whole Blood 138 mg/dL (60-115)
[2021-05-15 21:47] LABS: Glucose, Whole Blood 178 mg/dL (60-115)
[2021-05-15 23:02] LABS: Appearance Urine CLEAR; Color Urine YELLOW; Glucose Urine UA NEG (NEG); Leukocyte Esterase Urine NEG (NEG); Nitrite Urine NEG (NEG); PH 5.5 (5.0-8.0); Urine Blood 1+ (NEG); Urine Ketones NEG (NEG); Urine Protein 2+ MG/DL (NEG-TRACE)
[2021-05-15 23:20] LABS: Total Protein Urine Random 92 mg/dL (<12)
[2021-05-15 23:36] LABS: Amorphous Sediment Urine 3+ /LPF; Granular Casts Urine 0-2 /LPF; Mucus Urine TRACE /LPF; RBC Urine 0-2 /HPF (0); WBC Urine 0 /HPF (0-4)
[2021-05-16] MEDS: Piperacillin Sodium/Tazobactam 3.375 GM in 0.9 % Sodium Chloride 50 ML IV ×4 (03:39→21:08)
[2021-05-16 04:00] VITALS: BP 128/67; PULSE 64; RESP 17; TEMP 36.5; O2SAT 95
[2021-05-16] MEDS: Acetaminophen 325 MG TABLET 650 MG PO (05:50)
[2021-05-16] MEDS: Heparin Sodium,Porcine 5,000 UNIT/ML VIAL 5000 UNIT SUBCUT ×2 (05:51→16:55)
[2021-05-16 07:27] VITALS: BP 112/59; PULSE 72; RESP 17; TEMP 36.8; O2SAT 99
[2021-05-16 07:43] LABS: Glucose, Whole Blood 141 mg/dL (60-115)
[2021-05-16] MEDS: Gabapentin 300 MG CAPSULE PO ×3 (08:24→21:08)
[2021-05-16] MEDS: 0.9 % Sodium Chloride Flush 3 ML SYRINGE IVFLUSH ×2 (08:24→15:02)
--- NOTE | 2021-05-16 08:59 | P.PNIM_ITS ---
Subjective Subjective Date of Service: 05/16/21 Interval History: F/u on osteomylitis of the foot, no changes, Review of Systems no fever pain in the foot Physical Exam Vital Signs: Vital Signs: Last Vital Signs Temp 98.2 F 05/16/21 07:27 Pulse 72 05/16/21 07:27 Resp 17 05/16/21 07:27 BP 112/59 L 05/16/21 07:27 Pulse Ox 99 05/16/21 07:27 BMI result Body Mass Index 34.1 Const: Other: Const General:?comfortable and no acute distress Nutritional Appearance:?obese Resp Effort & Inspection:?normal respiratory effort Cardio Rate:?regular rate GI Palpation (GI):?Soft to palpation and nontender Extrem Other:?Ulcer on dry aspect of forefoot, scanty serosanguineous drainage, no cellulitis Objective Data Active Medications Acetaminophen (Acetaminophen 325 Mg Tablet) 650 mg PO Q6H PRN PRN Reason: Pain, Mild (Pain Scale 1-3) Last Admin: 05/16/21 05:50 Dose: 650 mg Documented by: FCO Dextrose (Dextrose 50 % 25 Gm/50 Ml Vial) 25 gm IVPUSH Q15M PRN; Protocol PRN Reason: per Hypoglycemia Standing Ord. Gabapentin (Gabapentin 300 Mg Capsule) 300 mg PO TID [facility] Last Admin: 05/16/21 08:24 Dose: 300 mg Documented by: JORGE Glucose (Glucose Gel 15 Gm Gel..Gram.) 15 gm PO Q15M PRN; Protocol PRN Reason: per Hypoglycemia Standing Ord. Heparin Sodium (Porcine) (Heparin Sodium,Porcine 5,000 Unit/Ml Vial) 5,000 unit SUBCUT Q12H [facility] Last Admin: 05/16/21 05:51 Dose: 5,000 unit Documented by: FCO Piperacillin Sod/Tazobactam (Sod 3.375 gm/ Sodium Chloride) 50 mls @ 100 mls/hr IV Q6H [facility] Last Admin: 05/16/21 08:24 Dose: 100 mls/hr Documented by: JORGE Meropenem 1 gm/ Sodium (Chloride) 100 mls @ 100 mls/hr IV Q12H [facility] Last Infusion: 05/15/21 23:42 Dose: 0 mls/hr Documented by: FCO Insulin Human Lispro (Insulin Lispro 100 Unit/Ml 3 Ml Vial) 0 unit SUBCUT QIDACHS [facility]; Protocol Last Admin: 05/16/21 07:41 Dose: Not Given Documented by: JORGE Non-Admin Reason: No Insulin Coverage Morphine Sulfate (Morphine Sulfate 2 Mg/Ml Cartridge) 2 mg IVPUSH Q4H PRN; Protocol PRN Reason: Pain, Mild (Pain Scale 1-3) Last Admin: 05/15/21 03:57 Dose: 2 mg Documented by: FCO Ondansetron HCl (Ondansetron Hcl 4 Mg/2 Ml Vial) 4 mg IVPUSH Q8H PRN PRN Reason: Nausea and Vomiting Pharmacy Consult (Consult Rx Perform Med Rec) 1 each MISCELLANE ONCE PRN PRN Reason: Consult order Pharmacy Consult (Consult Rx Vancomycin Dosing) 1 each MISCELLANE DAILY PRN PRN Reason: Consult order Sodium Chloride (0.9 % Sodium Chloride Flush 3 Ml Syringe) 3 ml IVFLUSH [facility] Last Admin: 05/16/21 08:24 Dose: 3 ml Documented by: JORGE Labs CBC & Chem 7: 05/15/21 05:44 05/15/21 05:44 Labs: Laboratory Results - last 24 hr 05/15/21 05/15/21 05/15/21 11:19 15:44 17:48 POC Glucose 183 H 138 H Urinalys Dipstick Clnc Cancelled Urine Color Urine Appearance Urine pH Ur Specific [place] Urine Protein Urine Glucose (UA) Urine Ketones Urine Blood Urine Nitrite Ur Leukocyte Esterase Urine RBC Urine WBC Ur Squamous Epith Cells Amorphous Sediment Urine Bacteria Granular Casts Urine Mucus U Random Total Protein 05/15/21 05/15/21 05/15/21 21:34 22:55 22:55 POC Glucose 178 H Urinalys Dipstick Clnc Urine Color YELLOW Urine Appearance CLEAR Urine pH 5.5 Ur Specific [place] 1.020 Urine Protein 2+ H Urine Glucose (UA) NEG Urine Ketones NEG Urine Blood 1+ H Urine Nitrite NEG Ur Leukocyte Esterase NEG Urine RBC 0-2 Urine WBC 0 Ur Squamous Epith Cells NONE Amorphous Sediment 3+ Urine Bacteria NONE Granular Casts 0-2 Urine Mucus TRACE U Random Total Protein 92 H 05/16/21 07:29 POC Glucose 141 H Urinalys Dipstick Clnc Urine Color Urine Appearance Urine pH Ur Specific [place] Urine Protein Urine Glucose (UA) Urine Ketones Urine Blood Urine Nitrite Ur Leukocyte Esterase Urine RBC Urine WBC Ur Squamous Epith Cells Amorphous Sediment Urine Bacteria Granular Casts Urine Mucus U Random Total Protein Microbiology Microbiology Results: Microbiology 05/11/21 14:41 Blood Culture - Preliminary Blood - Venous Prelim: GPR Gram Stain only Assessment and Plan (1) Osteomyelitis: Status: Acute Assessment and Plan: 56 year old man admitted with osteomyelitis and pathological fracture to right foot. Previous diagnostic imaging studies did not show osteomyelitis. States was seen at [facility] earlier this week by Podiatry; was told he would need surgery in July to remove the infected bone. No records available at this time 1.Acute osteomyelitis With pathological fracture of 2nd metatarsal, wound culture = MSSA and GBS, has been on Vanco/Zosyn since admission. ID recommends 6 weeks of Invanz upon dischare, while in hospital will use meropenem Antunez cath placed 05/14 d/t CKD 2.Type II DM Sliding scale, ADA diet Usually on Insulin Pump at home..Hold insulin pump, 3.NEEMA. CPAP at HS 4.VANESSA with CKD, stable follow Cr, check labs today DVT prophylaxis with heparin Full code Will need to go SNF for IV Abx as not able to go home with Antunez cath d/t drug use history , he is agreable to this. Quality Stroke Does the patient have a stroke diagnosis?: No VTE Prior VTE?: No VTE Risk Level:: Medical - moderate - high VTE Device Contraindication: Treatment Not Indicated VTE Drug Contraindication: N/A - Med Ordered
[2021-05-16 09:24] LABS: Anion Gap 15 (12-20); Blood Urea Nitrogen 46 mg/dL (9-16); Calcium 7.9 mg/dL (8.4-10.2); Carbon Dioxide 24 mmol/L (22-29); Chloride 103 mmol/L (96-108); Creatinine Clr Calc Pharmacy 22.9; Estimated Glomerular Filt Rate 17; Glucose Random 151 mg/dL (60-115); Potassium 4.7 mmol/L (3.3-5.1); Sodium 137 mmol/L (135-145)
--- NOTE | 2021-05-16 10:54 | P.PNNP_ITS ---
Subjective Subjective Date of Service: 05/16/21 Interval history: Events noted; All recent data reviewed; D/W Hospitalist this AM Physical Exam Vital Signs: Vital Signs: Last Vital Signs Temp 98.2 F 05/16/21 07:27 Pulse 72 05/16/21 07:27 Resp 17 05/16/21 07:27 BP 112/59 L 05/16/21 07:27 Pulse Ox 99 05/16/21 07:27 BMI result Body Mass Index 34.1 Const: General: comfortable Orientation/consciousness: patient oriented x3 Eyes: EOM: EOMs intact bilaterally Neck: Neck: Yes supple Resp: Auscultation: diminished lung sounds Cardio: Rate: regular rate GI: Palpation (GI): Soft to palpation Neuro: General: patient oriented x3 and moves all extremities Objective Data Labs CBC & Chem 7: 05/15/21 05:44 05/16/21 05:29 Labs: Laboratory Results - last 24 hr 05/15/21 05/15/21 05/15/21 11:19 15:44 17:48 Sodium Potassium Chloride Carbon Dioxide Anion Gap BUN Creatinine Estim Creat Clear Calc Estimated GFR POC Glucose 183 H 138 H Random Glucose Calcium Urinalys Dipstick Clnc Cancelled Urine Color Urine Appearance Urine pH Ur Specific [place] Urine Protein Urine Glucose (UA) Urine Ketones Urine Blood Urine Nitrite Ur Leukocyte Esterase Urine RBC Urine WBC Ur Squamous Epith Cells Amorphous Sediment Urine Bacteria Granular Casts Urine Mucus U Random Total Protein 05/15/21 05/15/21 05/15/21 21:34 22:55 22:55 Sodium Potassium Chloride Carbon Dioxide Anion Gap BUN Creatinine Estim Creat Clear Calc Estimated GFR POC Glucose 178 H Random Glucose Calcium Urinalys Dipstick Clnc Urine Color YELLOW Urine Appearance CLEAR Urine pH 5.5 Ur Specific [place] 1.020 Urine Protein 2+ H Urine Glucose (UA) NEG Urine Ketones NEG Urine Blood 1+ H Urine Nitrite NEG Ur Leukocyte Esterase NEG Urine RBC 0-2 Urine WBC 0 Ur Squamous Epith Cells NONE Amorphous Sediment 3+ Urine Bacteria NONE Granular Casts 0-2 Urine Mucus TRACE U Random Total Protein 92 H 05/16/21 05/16/21 05:29 07:29 Sodium 137 Potassium 4.7 Chloride 103 Carbon Dioxide 24 Anion Gap 15 BUN 46 H Creatinine 3.76 H Estim Creat Clear Calc 22.9 Estimated GFR 17 POC Glucose 141 H Random Glucose 151 H Calcium 7.9 L Urinalys Dipstick Clnc Urine Color Urine Appearance Urine pH Ur Specific [place] Urine Protein Urine Glucose (UA) Urine Ketones Urine Blood Urine Nitrite Ur Leukocyte Esterase Urine RBC Urine WBC Ur Squamous Epith Cells Amorphous Sediment Urine Bacteria Granular Casts Urine Mucus U Random Total Protein Microbiology Microbiology Results: Microbiology 05/11/21 14:41 Blood - Venous Blood Culture - Preliminary Prelim: GPR Gram Stain only 05/11/21 14:41 Foot Right Gram Stain - Final 05/11/21 14:41 Foot Right Routine Culture - Final Staphylococcus aureus Strep agalactiae (Grp B) 05/11/21 15:36 Blood - Venous Blood Culture - Preliminary No growth after 48 hours. Procedures Date of Service Date of Service: 05/16/21 Assessment & Plan Assessment and plan (1) VANESSA (acute kidney injury): Status: Acute Assessment and Plan: VANESSA due to tubular injury Differential paige infectious GN/ AIN serum creatinine not plateaued C3/C4/Urine studies ordered-pending May need a renal USS( unlikely obstruction) All medication dose should be for GFR If creatinine still going up, may need renal biopsy Continue current supportive care for now Time Spent With Patient Time: Total time spent is greater than 50% in coordination of care (as documented) at patient's floor/unit and/or counseling patient: Progress Note: Quality Stroke Does the patient have a stroke diagnosis?: No
[2021-05-16 11:41] LABS: Glucose, Whole Blood 146 mg/dL (60-115)
[2021-05-16 11:44] LABS: Appearance Urine CLEAR; Glucose Urine UA NEG (NEG); Leukocyte Esterase Urine NEG (NEG); Nitrite Urine NEG (NEG); PH 5.5 (5.0-8.0); UACC Culture Trigger NO; Urine Blood 1+ (NEG); Urine Ketones NEG (NEG); Urine Protein 1+ MG/DL (NEG-TRACE)
[2021-05-16 11:46] LABS: Color Urine YELLOW
[2021-05-16 11:53] LABS: Total Protein Urine Random 71 mg/dL (<12)
[2021-05-16 12:01] LABS: Mucus Urine TRACE /LPF; WBC Urine 0 /HPF (0-4)
[2021-05-16 13:19] VITALS: BP 135/64; PULSE 81; RESP 19; TEMP 36.4; O2SAT 98
[2021-05-16 15:10] VITALS: BP 154/67; PULSE 69; RESP 18; TEMP 36.1; O2SAT 98
[2021-05-16 16:33] LABS: Glucose, Whole Blood 246 mg/dL (60-115)
[2021-05-16] MEDS: Insulin Lispro 100 UNIT/ML 3 ML VIAL SUBCUT (16:54)
[2021-05-16 20:00] VITALS: BP 145/69; PULSE 86; RESP 18; TEMP 36.3; O2SAT 96
[2021-05-16 20:13] LABS: Glucose, Whole Blood 144 mg/dL (60-115)
[2021-05-16 23:17] VITALS: BP 151/72; PULSE 70; RESP 18; TEMP 36.2; O2SAT 97
[2021-05-17] MEDS: Acetaminophen 325 MG TABLET 650 MG PO (00:36)
[2021-05-17 03:59] VITALS: BP 142/67; PULSE 67; RESP 18; TEMP 36.6; O2SAT 98
[2021-05-17] MEDS: Piperacillin Sodium/Tazobactam 3.375 GM in 0.9 % Sodium Chloride 50 ML IV ×4 (05:32→21:12)
[2021-05-17] MEDS: Heparin Sodium,Porcine 5,000 UNIT/ML VIAL 5000 UNIT SUBCUT ×2 (06:26→18:16)
[2021-05-17 07:58] VITALS: BP 128/69; PULSE 69; RESP 17; TEMP 37.1; O2SAT 99
[2021-05-17 08:24] LABS: Glucose, Whole Blood 143 mg/dL (60-115)
[2021-05-17] MEDS: Gabapentin 300 MG CAPSULE PO ×3 (08:25→21:11)
[2021-05-17] MEDS: 0.9 % Sodium Chloride Flush 3 ML SYRINGE IVFLUSH ×3 (08:27→21:12)
--- NOTE | 2021-05-17 11:07 | PM.PNNEP ---
Subjective Subjective Date of Service: 05/17/21 Principal diagnosis: vanessa Interval history: Seen and examined, events noted AM labs pending Physical Exam Vital Signs: Vital Signs: Last Vital Signs Temp 98.7 F 05/17/21 07:58 Pulse 69 05/17/21 07:58 Resp 17 05/17/21 07:58 BP 128/69 05/17/21 07:58 Pulse Ox 99 05/17/21 07:58 BMI result Body Mass Index 34.1 Const: General: comfortable, no acute distress and alert Orientation/consciousness: patient oriented x3 Eyes: EOM: EOMs intact bilaterally Neck: Neck: Yes supple Resp: Auscultation: diminished lung sounds Cardio: Rate: regular rate GI: Palpation (GI): Soft to palpation Neuro: General: patient oriented x3 and moves all extremities Objective Data Labs CBC & Chem 7: 05/15/21 05:44 05/16/21 05:29 Labs: Laboratory Results - last 24 hr 05/16/21 05/16/21 05/16/21 11:24 11:24 11:36 POC Glucose 146 H Urine Color YELLOW Urine Appearance CLEAR Urine pH 5.5 Ur Specific [place] 1.020 Urine Protein 1+ H Urine Glucose (UA) NEG Urine Ketones NEG Urine Blood 1+ H Urine Nitrite NEG Ur Leukocyte Esterase NEG Urine RBC 1-4 Urine WBC 0 Ur Squamous Epith Cells NONE Urine Bacteria NONE Urine Mucus TRACE U Random Total Protein 71 H 05/16/21 05/16/21 05/17/21 16:28 20:07 08:17 POC Glucose 246 H 144 H 143 H Urine Color Urine Appearance Urine pH Ur Specific [place] Urine Protein Urine Glucose (UA) Urine Ketones Urine Blood Urine Nitrite Ur Leukocyte Esterase Urine RBC Urine WBC Ur Squamous Epith Cells Urine Bacteria Urine Mucus U Random Total Protein Microbiology Microbiology Results: Microbiology 05/11/21 15:36 Blood - Venous Blood Culture - Final No growth after 5 days. 05/11/21 14:41 Blood - Venous Blood Culture - Preliminary Prelim: GPR Gram Stain only 05/11/21 14:41 Foot Right Gram Stain - Final 05/11/21 14:41 Foot Right Routine Culture - Final Staphylococcus aureus Strep agalactiae (Grp B) Procedures Date of Service Date of Service: 05/17/21 Assessment & Plan Assessment and plan (1) VANESSA (acute kidney injury): Start date: 05/17/21 Start time: 11:10 Status: Acute Assessment and Plan: 1. VANESSA: most c/w multifact ATN in setting of infection BUT other poss include AGN related to infection AIN d/t infection vs ABx Obs uropathy 2. 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 Anemia: may ne candidate for epo infutire if HB < 9.0 4. MDB of CKD: check PTH and phos 5. Osteo REC: C3/Cr penidng; addditional sero as ordered and renal U/S; protect LUE; if Scr cont worsen willneed to strongly consider rosa maria Bx will follow bridger with team Time Spent With Patient Time: Total time spent is greater than 50% in coordination of care (as documented) at patient's floor/unit and/or counseling patient: Progress Note: Quality Stroke Does the patient have a stroke diagnosis?: No
[2021-05-17] MEDS: Insulin Lispro 100 UNIT/ML 3 ML VIAL SUBCUT ×2 (11:43→21:11)
[2021-05-17 11:47] LABS: Glucose, Whole Blood 159 mg/dL (60-115)
[2021-05-17 11:55] LABS: Complement C3 153 mg/dL (82-185)
[2021-05-17 12:00] VITALS: BP 140/79; PULSE 78; RESP 18; TEMP 36.1; O2SAT 99
[2021-05-17 13:14] LABS: Phosphorus 4.9 mg/dL (2.7-4.5)
--- NOTE | 2021-05-17 13:58 | P.PNIM_ITS ---
Subjective Subjective Date of Service: 05/17/21 Interval History: No acute issues overnight Review of Systems denies chest pain Denies shortness of breath Denies nausea vomiting diarrhea Physical Exam Vital Signs: Vital Signs: Last Vital Signs Temp 96.9 F 05/17/21 12:00 Pulse 78 05/17/21 12:00 Resp 18 05/17/21 12:00 BP 140/79 H 05/17/21 12:00 Pulse Ox 99 05/17/21 12:00 BMI result Body Mass Index 34.1 Const: Other: No acute distress Resp: Other: Clear to auscultation bilaterally no rales rhonchi wheezes Cardio: Other: No S4; S1-S2; no S3 murmurs Os-Pankaj GI: Other: soft nontender nondistended with normoactive bowel sounds Extrem: Other: Right foot with tight Robert wrap . Objective Data Active Medications Acetaminophen (Acetaminophen 325 Mg Tablet) 650 mg PO Q6H PRN PRN Reason: Pain, Mild (Pain Scale 1-3) Last Admin: 05/17/21 00:36 Dose: 650 mg Documented by: CHRISTIAN Dextrose (Dextrose 50 % 25 Gm/50 Ml Vial) 25 gm IVPUSH Q15M PRN; Protocol PRN Reason: per Hypoglycemia Standing Ord. Gabapentin (Gabapentin 300 Mg Capsule) 300 mg PO TID [facility] Last Admin: 05/17/21 08:25 Dose: 300 mg Documented by: PO Glucose (Glucose Gel 15 Gm Gel..Gram.) 15 gm PO Q15M PRN; Protocol PRN Reason: per Hypoglycemia Standing Ord. Heparin Sodium (Porcine) (Heparin Sodium,Porcine 5,000 Unit/Ml Vial) 5,000 unit SUBCUT Q12H [facility] Last Admin: 05/17/21 06:26 Dose: 5,000 unit Documented by: CHRISTIAN Piperacillin Sod/Tazobactam (Sod 3.375 gm/ Sodium Chloride) 50 mls @ 100 mls/hr IV Q6H [facility] Last Infusion: 05/17/21 10:21 Dose: 0 mls/hr Documented by: PO Meropenem 1 gm/ Sodium (Chloride) 100 mls @ 100 mls/hr IV Q12H [facility] Last Infusion: 05/17/21 11:54 Dose: 100 mls/hr Documented by: PO Insulin Human Lispro (Insulin Lispro 100 Unit/Ml 3 Ml Vial) 0 unit SUBCUT QIDACHS [facility]; Protocol Last Admin: 05/17/21 11:43 Dose: 2 unit Documented by: PO Ondansetron HCl (Ondansetron Hcl 4 Mg/2 Ml Vial) 4 mg IVPUSH Q8H PRN PRN Reason: Nausea and Vomiting Pharmacy Consult (Consult Rx Perform Med Rec) 1 each MISCELLANE ONCE PRN PRN Reason: Consult order Pharmacy Consult (Consult Rx Vancomycin Dosing) 1 each MISCELLANE DAILY PRN PRN Reason: Consult order Sodium Chloride (0.9 % Sodium Chloride Flush 3 Ml Syringe) 3 ml IVFLUSH [facility] Last Admin: 05/17/21 08:27 Dose: 3 ml Documented by: PO Labs CBC & Chem 7: 05/15/21 05:44 05/16/21 05:29 Labs: Laboratory Results - last 24 hr 05/16/21 05/16/21 05/16/21 05:29 16:28 20:07 POC Glucose 246 H 144 H Phosphorus Complement C3 153 Complement C4 25 05/17/21 05/17/21 05/17/21 08:17 11:37 12:42 POC Glucose 143 H 159 H Phosphorus 4.9 H Complement C3 Complement C4 Microbiology Microbiology Results: Microbiology 05/11/21 14:41 Blood Culture - Preliminary Blood - Venous Prelim: GPR Gram Stain only 05/11/21 15:36 Blood Culture - Final Blood - Venous No growth after 5 days. Assessment and Plan (1) CKD stage G3b/A2, GFR 30-44 and albumin creatinine ratio 30-299 mg/g: Status: Acute (2) Pathological fracture of foot: Status: Acute (3) Osteomyelitis: Status: Acute Assessment and Plan: 56 year old man admitted with osteomyelitis and pathological fracture to right foot. Previous diagnostic imaging studies did not show osteomyelitis. States was seen at [facility] earlier this week by Podiatry; was told he would need surgery in July to remove the infected bone. No records available at this time. 1.Acute osteomyelitis With pathological fracture of 2nd metatarsal Meropenem/Zosyn 2.Type II DM Sliding scale, ADA diet Usually on Insulin Pump at home...will D/C while inoatient. Can reume when D/C 3.NEEMA. CPAP at HS 4.CKD 3 Creat has worsened...Await todays run. Discussed with renal....May need BX DVT prophylaxis with heparin Full code Quality Stroke Does the patient have a stroke diagnosis?: No VTE Prior VTE?: No VTE Risk Level:: Medical - moderate - high VTE Device Contraindication: Treatment Not Indicated VTE Drug Contraindication: N/A - Med Ordered
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
[2021-05-17 16:00] VITALS: BP 150/76; PULSE 69; RESP 18; TEMP 36.2; O2SAT 100
[2021-05-17 16:51] LABS: Glucose, Whole Blood 113 mg/dL (60-115)
[2021-05-17 18:56] LABS: Anion Gap 15 (12-20); Blood Urea Nitrogen 48 mg/dL (9-16); Carbon Dioxide 23 mmol/L (22-29); Chloride 105 mmol/L (96-108); Estimated Glomerular Filt Rate 18; Potassium 5.1 mmol/L (3.3-5.1); Sodium 138 mmol/L (135-145)
[2021-05-17 20:00] VITALS: BP 148/67; PULSE 73; RESP 18; TEMP 36.3; O2SAT 97
[2021-05-17 20:35] LABS: Glucose, Whole Blood 198 mg/dL (60-115)
[2021-05-18] VITALS (7 sets, daily range): BP systolic 134–159; BP diastolic 65–78; PULSE 67–91; RESP 17–20; TEMP 36–36.9; O2SAT 96–100
[2021-05-18] MEDS: Piperacillin Sodium/Tazobactam 3.375 GM in 0.9 % Sodium Chloride 50 ML IV ×4 (02:57→20:04)
[2021-05-18 04:26] LABS: HBS Num1 10.28 mIU/mL (0-7.99); HBc Num1 0.17 S/CO (0.00-0.79); Hepatitis B Core Antibody Nonreactive (Nonreactive); Hepatitis B Surface Antigen Negative (Negative); ~HepC Num1 0.12 S/CO (0.00-0.79); ~Hepatitis C Antibody Nonreactive (Nonreactive)
[2021-05-18 05:07] LABS: HBS Num2 8.55 mIU/mL (0-7.99); HBS Num3 8.35 mIU/mL (0-7.99); ~Hepatitis B Surface Antibody GRAYZONE (Nonreactive)
[2021-05-18] MEDS: Heparin Sodium,Porcine 5,000 UNIT/ML VIAL 5000 UNIT SUBCUT ×2 (05:47→17:19)
[2021-05-18 06:24] LABS: Alanine Aminotransferase 70 U/L (0-40); Albumin Level 2.7 g/dL (3.5-5.0); Alkaline Phosphatase 58 U/L (39-117); Anion Gap 12 (12-20); Aspartate Amino Transferase 54 U/L (5-37); Bilirubin Total 0.4 mg/dL (0.0-1.0); Blood Urea Nitrogen 47 mg/dL (9-16); Calcium 7.9 mg/dL (8.4-10.2); Carbon Dioxide 24 mmol/L (22-29); Chloride 108 mmol/L (96-108); Creatinine Clr Calc Pharmacy 24.6; Estimated Glomerular Filt Rate 18; Glucose Fasting 150 mg/dL (60-99); Sodium 139 mmol/L (135-145)
[2021-05-18 07:46] LABS: Glucose, Whole Blood 141 mg/dL (60-115)
[2021-05-18] MEDS: 0.9 % Sodium Chloride Flush 3 ML SYRINGE IVFLUSH ×2 (10:09→17:19)
[2021-05-18] MEDS: Gabapentin 300 MG CAPSULE PO ×3 (10:09→20:04)
[2021-05-18 11:32] LABS: Glucose, Whole Blood 164 mg/dL (60-115)
[2021-05-18 11:42] LABS: PTHI 184 pg/mL (14-64)
[2021-05-18] MEDS: Insulin Lispro 100 UNIT/ML 3 ML VIAL SUBCUT ×3 (11:53→20:03)
--- NOTE | 2021-05-18 15:20 | PC.NURSE ---
Skin/Wound assessment completed. Patient has a diabetic ulcer on plantar right foot measuring 0.5 x 0.9 x 2.6. When cleaning felt bone fragments. There is osteomyelitis present. Silver alginate applied to wound bed covered with non woven gauze and roll gauze. No other skin issues noted at this time.
--- NOTE | 2021-05-18 15:40 | MHC.CM.PN ---
ELECTRONIC MEDICAL RECORD REVIEWED , CASE DISCUSSED ON MULTIPEL DISCIPLINARY ROUNDS. [facility] PATIENT CAN BE DISCHARGED TOMORROW TO SHORT TERM REHAB AND FOLLOW UP OUTPATIENT WITH RENAL AND WITH RENAL BX OUTPATIENT. REFERRALS UPDATED DISCHARGE PLAN REHAB FOR IV ABX 6 WEEKS M,EROPENUM BID VS ERAPETUM QD TRANSPORTATION ACTION BLS VS WHEELCHAIR VAN
--- NOTE | 2021-05-18 16:28 | HO.PM.IMPN ---
Subjective Subjective Date of Service: 05/19/21 Interval History: All information gleaned with financial service rep; no acute events overn Review of Systems denies chest pain Denies shortness of br Physical Exam Vital Signs: Vital Signs: Last Vital Signs Temp 97.4 F 05/18/21 16:00 Pulse 75 05/18/21 16:00 Resp 18 05/18/21 16:00 BP 134/78 05/18/21 16:00 Pulse Ox 100 05/18/21 16:00 BMI result Body Mass Index 34.1 Const: Other: No acute distress Resp: Other: Clear to auscultation bilaterally no rales rhonchi wheezes Cardio: Other: No S4; S1-S2; no S3 murmurs Os-Pankaj GI: Other: soft nontender nondistended with normoactive bowel sounds Extrem: Other: Right foot with tight Robert wrap . Objective Data Active Medications Acetaminophen (Acetaminophen 325 Mg Tablet) 650 mg PO Q6H PRN PRN Reason: Pain, Mild (Pain Scale 1-3) Last Admin: 05/17/21 00:36 Dose: 650 mg Documented by: CHRISTIAN Dextrose (Dextrose 50 % 25 Gm/50 Ml Vial) 25 gm IVPUSH Q15M PRN; Protocol PRN Reason: per Hypoglycemia Standing Ord. Gabapentin (Gabapentin 300 Mg Capsule) 300 mg PO TID [facility] Last Admin: 05/18/21 14:37 Dose: 300 mg Documented by: DARRYL Glucose (Glucose Gel 15 Gm Gel..Gram.) 15 gm PO Q15M PRN; Protocol PRN Reason: per Hypoglycemia Standing Ord. Heparin Sodium (Porcine) (Heparin Sodium,Porcine 5,000 Unit/Ml Vial) 5,000 unit SUBCUT Q12H [facility] Last Admin: 05/18/21 05:47 Dose: 5,000 unit Documented by: TATYANA Piperacillin Sod/Tazobactam (Sod 3.375 gm/ Sodium Chloride) 50 mls @ 100 mls/hr IV Q6H [facility] Last Infusion: 05/18/21 15:23 Dose: 0 mls/hr Documented by: DARRYL Meropenem 1 gm/ Sodium (Chloride) 100 mls @ 100 mls/hr IV Q12H [facility] Last Infusion: 05/18/21 11:59 Dose: 0 mls/hr Documented by: DARRYL Insulin Human Lispro (Insulin Lispro 100 Unit/Ml 3 Ml Vial) 0 unit SUBCUT QIDACHS [facility]; Protocol Last Admin: 05/18/21 11:53 Dose: 2 unit Documented by: DARRYL Ondansetron HCl (Ondansetron Hcl 4 Mg/2 Ml Vial) 4 mg IVPUSH Q8H PRN PRN Reason: Nausea and Vomiting Pharmacy Consult (Consult Rx Perform Med Rec) 1 each MISCELLANE ONCE PRN PRN Reason: Consult order Sodium Chloride (0.9 % Sodium Chloride Flush 3 Ml Syringe) 3 ml IVFLUSH [facility] Last Admin: 05/18/21 10:09 Dose: 3 ml Documented by: DARRYL Labs CBC & Chem 7: 05/19/21 05:19 05/19/21 05:19 Labs: Laboratory Results - last 24 hr 05/17/21 05/17/21 05/17/21 12:42 12:42 12:42 Anion Gap 15 Estim Creat Clear Calc 24.0 Estimated GFR 18 POC Glucose Fasting Glucose Calcium Total Bilirubin AST ALT Alkaline Phosphatase Total Protein Albumin PTH Intact 184 H Calcium (PTH Intact) 8.0 L Hep Bs Antigen Negative Hep Bs Antibody GRAYZONE Hep B Core Total Ab Nonreactive Hepatitis C Ab (EIA) Nonreactive 05/17/21 05/17/21 05/18/21 16:35 20:21 05:33 Anion Gap 12 Estim Creat Clear Calc 24.6 Estimated GFR 18 POC Glucose 113 198 H Fasting Glucose 150 H Calcium 7.9 L Total Bilirubin 0.4 AST 54 H ALT 70 H Alkaline Phosphatase 58 Total Protein 7.0 Albumin 2.7 L PTH Intact Calcium (PTH Intact) Hep Bs Antigen Hep Bs Antibody Hep B Core Total Ab Hepatitis C Ab (EIA) 05/18/21 05/18/21 07:39 11:28 Anion Gap Estim Creat Clear Calc Estimated GFR POC Glucose 141 H 164 H Fasting Glucose Calcium Total Bilirubin AST ALT Alkaline Phosphatase Total Protein Albumin PTH Intact Calcium (PTH Intact) Hep Bs Antigen Hep Bs Antibody Hep B Core Total Ab Hepatitis C Ab (EIA) Microbiology Microbiology Results: Microbiology 05/11/21 14:41 Blood Culture - Final Blood - Venous Corynebacterium species Assessment and Plan (1) Osteomyelitis: Status: Acute (2) CKD stage G3b/A2, GFR 30-44 and albumin creatinine ratio 30-299 mg/g: Status: Acute (3) Pathological fracture of foot: Status: Acute Assessment and Plan: 56 year old man admitted with osteomyelitis and pathological fracture to right foot. Previous diagnostic imaging studies did not show osteomyelitis. States was seen at [facility] earlier this week by Podiatry; was told he would need surgery in July to remove the infected bone. Awaiting placement. 1.Acute osteomyelitis With pathological fracture of 2nd metatarsal Continue Zosyn (day 7)...6 week total 2.Type II DM Sliding scale, ADA diet Usually on Insulin Pump at home...will D/C while inoatient. Can reume when D/C 3.NEEMA. CPAP at HS 4.CKD 3 Continues to improve...conservatives at this time DVT prophylaxis with heparin Full code Quality Stroke Does the patient have a stroke diagnosis?: No VTE Prior VTE?: No VTE Risk Level:: Medical - moderate - high VTE Device Contraindication: Treatment Not Indicated VTE Drug Contraindication: N/A - Med Ordered
[2021-05-18 16:42] LABS: Glucose, Whole Blood 179 mg/dL (60-115)
--- NOTE | 2021-05-18 16:51 | PM.PNNEP ---
Subjective Subjective Date of Service: 05/18/21 Principal diagnosis: vanessa Interval history: Seen and examined, events noted Physical Exam Vital Signs: Vital Signs: Last Vital Signs Temp 97.4 F 05/18/21 16:00 Pulse 75 05/18/21 16:00 Resp 18 05/18/21 16:00 BP 134/78 05/18/21 16:00 Pulse Ox 100 05/18/21 16:00 BMI result Body Mass Index 34.1 Const: General: comfortable, no acute distress and alert Orientation/consciousness: patient oriented x3 Eyes: EOM: EOMs intact bilaterally Neck: Neck: Yes supple Resp: Auscultation: diminished lung sounds Cardio: Rate: regular rate GI: Palpation (GI): Soft to palpation Neuro: General: patient oriented x3 and moves all extremities Objective Data Labs CBC & Chem 7: 05/15/21 05:44 05/18/21 05:33 Labs: Laboratory Results - last 24 hr 05/17/21 05/17/21 05/17/21 12:42 12:42 12:42 Sodium 138 Potassium 5.1 Chloride 105 Carbon Dioxide 23 Anion Gap 15 BUN 48 H Creatinine 3.60 H Estim Creat Clear Calc 24.0 Estimated GFR 18 POC Glucose Fasting Glucose Calcium Total Bilirubin AST ALT Alkaline Phosphatase Total Protein Albumin PTH Intact 184 H Calcium (PTH Intact) 8.0 L Hep Bs Antigen Negative Hep Bs Antibody GRAYZONE Hep B Core Total Ab Nonreactive Hepatitis C Ab (EIA) Nonreactive 05/17/21 05/17/21 05/18/21 16:35 20:21 05:33 Sodium 139 Potassium 5.0 Chloride 108 Carbon Dioxide 24 Anion Gap 12 BUN 47 H Creatinine 3.50 H Estim Creat Clear Calc 24.6 Estimated GFR 18 POC Glucose 113 198 H Fasting Glucose 150 H Calcium 7.9 L Total Bilirubin 0.4 AST 54 H ALT 70 H Alkaline Phosphatase 58 Total Protein 7.0 Albumin 2.7 L PTH Intact Calcium (PTH Intact) Hep Bs Antigen Hep Bs Antibody Hep B Core Total Ab Hepatitis C Ab (EIA) 05/18/21 05/18/21 05/18/21 07:39 11:28 16:30 Sodium Potassium Chloride Carbon Dioxide Anion Gap BUN Creatinine Estim Creat Clear Calc Estimated GFR POC Glucose 141 H 164 H 179 H Fasting Glucose Calcium Total Bilirubin AST ALT Alkaline Phosphatase Total Protein Albumin PTH Intact Calcium (PTH Intact) Hep Bs Antigen Hep Bs Antibody Hep B Core Total Ab Hepatitis C Ab (EIA) Microbiology Microbiology Results: Microbiology 05/11/21 14:41 Blood - Venous Blood Culture - Final Corynebacterium species 05/11/21 15:36 Blood - Venous Blood Culture - Final No growth after 5 days. 05/11/21 14:41 Foot Right Gram Stain - Final 05/11/21 14:41 Foot Right Routine Culture - Final Staphylococcus aureus Strep agalactiae (Grp B) Procedures Date of Service Date of Service: 05/18/21 Assessment & Plan Assessment and plan (1) VANSESA (acute kidney injury): Status: Acute Assessment and Plan: 1. VANESSA: most c/w multifact ATN in setting of infection BUT other poss include AGN related to infection AIN d/t infection vs ABx Obs uropathy:r/o by U/S c3/c4 normal goes againstinf GN but does not completely r/o 2. 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 Osteo REC: sero as ordered; protect LUE; if Scr cont worsen will need to strongly consider rosa maria Bx will follow bridger with team Time Spent With Patient Time: Total time spent is greater than 50% in coordination of care (as documented) at patient's floor/unit and/or counseling patient: Progress Note: Quality Stroke Does the patient have a stroke diagnosis?: No
[2021-05-18 19:44] LABS: Glucose, Whole Blood 350 mg/dL (60-115)
[2021-05-18] MEDS: Acetaminophen 325 MG TABLET 650 MG PO (21:07)
[2021-05-19] VITALS (7 sets, daily range): BP systolic 124–154; BP diastolic 56–73; PULSE 67–77; RESP 17–20; TEMP 36.3–36.6; O2SAT 95–99
[2021-05-19] MEDS: Piperacillin Sodium/Tazobactam 3.375 GM in 0.9 % Sodium Chloride 50 ML IV ×3 (02:54→15:38)
[2021-05-19] MEDS: Heparin Sodium,Porcine 5,000 UNIT/ML VIAL 5000 UNIT SUBCUT ×2 (05:16→17:27)
[2021-05-19 05:45] LABS: MANUAL DIFF FLAG NO
[2021-05-19 05:49] LABS: Basophils Absolute Auto 0.1 X10*3/uL (0.0-0.2); Basophils Percent Auto 0.5 % (0-2); Eosinophils Absolute Auto 0.7 X10*3/uL (0.0-0.4); Eosinophils Percent Auto 4.9 % (0-4); Hematocrit 32.7 % (42.0-52.0); Hemoglobin 10.4 g/dl (14.0-18.0); Imm Gran Abs Auto 0.07 X10*3/uL (0.00-0.03); Imm Gran Pct Auto 0.5 % (0.0-0.4); Lymphocytes Absolute Auto 2.3 X10*3/uL (1.2-4.9); Lymphocytes Percent Auto 16.9 % (20-40); Mean Corpuscular HGB Conc 31.8 g/dl (31.0-36.0); Mean Corpuscular Hemoglobin 28.1 pg (27.0-33.0); Mean Corpuscular Volume 88.4 fL (80.0-98.0); Mean Platelet Volume 8.6 fL (9.4-12.4); Monocytes Absolute Auto 0.9 X10*3/uL (0.1-1.2); Monocytes Percent Auto 6.5 % (2-11); Neutrophils Absolute Auto 9.4 x10*3/uL (2.0-8.3); Neutrophils Percent Auto 70.7 % (45-73); Platelet Count 697 X10*3/uL (160-400); Red Cell Distribution Width 14.5 % (11.0-16.0); White Blood Count 13.3 X10*3/uL (4.8-10.8)
[2021-05-19 06:09] LABS: Alanine Aminotransferase 103 U/L (0-40); Albumin Level 2.9 g/dL (3.5-5.0); Alkaline Phosphatase 62 U/L (39-117); Anion Gap 13 (12-20); Aspartate Amino Transferase 77 U/L (5-37); Bilirubin Total 0.4 mg/dL (0.0-1.0); Blood Urea Nitrogen 46 mg/dL (9-16); Calcium 8.3 mg/dL (8.4-10.2); Carbon Dioxide 23 mmol/L (22-29); Chloride 108 mmol/L (96-108); Creatinine Clr Calc Pharmacy 25.5; Estimated Glomerular Filt Rate 19; Glucose Fasting 137 mg/dL (60-99); Potassium 5.4 mmol/L (3.3-5.1); Sodium 139 mmol/L (135-145); Total Protein 7.5 g/dL (6.5-8.0)
[2021-05-19 07:49] LABS: Glucose, Whole Blood 119 mg/dL (60-115)
[2021-05-19] MEDS: Gabapentin 300 MG CAPSULE PO ×3 (08:02→21:06)
[2021-05-19] MEDS: 0.9 % Sodium Chloride Flush 3 ML SYRINGE IVFLUSH ×2 (08:03→15:38)
[2021-05-19 11:18] LABS: Glucose, Whole Blood 124 mg/dL (60-115)
--- NOTE | 2021-05-19 12:55 | P.PNGS_ITS ---
Subjective Subjective Date of Service: 05/19/21 Interval history: Denies complaints Says he feels well Says he thinks the ulcer still has drainage Physical Exam Vital Signs: Vital Signs: Last Vital Signs Temp 97.5 F 05/19/21 11:29 Pulse 77 05/19/21 11:29 Resp 20 05/19/21 11:29 BP 124/67 05/19/21 11:29 Pulse Ox 99 05/19/21 11:29 BMI result Body Mass Index 34.1 Const: General: comfortable and no acute distress Resp: Effort & Inspection: normal respiratory effort Cardio: Rate: regular rate GI: Palpation (GI): Soft to palpation and nontender Extrem: Other: Plantar ulcer, right foot at the metatarsal head at the area of the 2nd metatarsal, still with some drainage, deep, question extending into bone Objective Data Active Medications Acetaminophen (Acetaminophen 325 Mg Tablet) 650 mg PO Q6H PRN PRN Reason: Pain, Mild (Pain Scale 1-3) Last Admin: 05/18/21 21:07 Dose: 650 mg Documented by: JENNIFER Dextrose (Dextrose 50 % 25 Gm/50 Ml Vial) 25 gm IVPUSH Q15M PRN; Protocol PRN Reason: per Hypoglycemia Standing Ord. Gabapentin (Gabapentin 300 Mg Capsule) 300 mg PO TID [facility] Last Admin: 05/19/21 08:02 Dose: 300 mg Documented by: ABE Glucose (Glucose Gel 15 Gm Gel..Gram.) 15 gm PO Q15M PRN; Protocol PRN Reason: per Hypoglycemia Standing Ord. Heparin Sodium (Porcine) (Heparin Sodium,Porcine 5,000 Unit/Ml Vial) 5,000 unit SUBCUT Q12H [facility] Last Admin: 05/19/21 05:16 Dose: 5,000 unit Documented by: JENNIFER Piperacillin Sod/Tazobactam (Sod 3.375 gm/ Sodium Chloride) 50 mls @ 100 mls/hr IV Q6H [facility] Last Infusion: 05/19/21 09:58 Dose: 0 mls/hr Documented by: ABE Insulin Human Lispro (Insulin Lispro 100 Unit/Ml 3 Ml Vial) 0 unit SUBCUT QIDACHS [facility]; Protocol Last Admin: 05/19/21 12:42 Dose: Not Given Documented by: ABE Non-Admin Reason: No Insulin Coverage Ondansetron HCl (Ondansetron Hcl 4 Mg/2 Ml Vial) 4 mg IVPUSH Q8H PRN PRN Reason: Nausea and Vomiting Pharmacy Consult (Consult Rx Perform Med Rec) 1 each MISCELLANE ONCE PRN PRN Reason: Consult order Sodium Chloride (0.9 % Sodium Chloride Flush 3 Ml Syringe) 3 ml IVFLUSH QSHIFT [facility] Last Admin: 05/19/21 08:03 Dose: 3 ml Documented by: ABE Labs CBC & Chem 7: 05/19/21 05:19 05/19/21 05:19 Labs: Laboratory Results - last 24 hr 05/18/21 05/18/21 05/19/21 16:30 19:35 05:19 MCV MCH MCHC RDW Plt Count MPV Immature Gran % (Auto) Neut % (Auto) Lymph % (Auto) [place] % (Auto) Eos % (Auto) Baso % (Auto) Lymph # (Auto) [place] # (Auto) Eos # (Auto) Baso # (Auto) Abs Immat Gran (auto) Absolute Neuts (auto) Absolute Nucleated RBC Nucleated RBC % (auto) Anion Gap 13 Estim Creat Clear Calc 25.5 Estimated GFR 19 POC Glucose 179 H 350 H* Fasting Glucose 137 H Calcium 8.3 L Total Bilirubin 0.4 AST 77 H ALT 103 H Alkaline Phosphatase 62 Total Protein 7.5 Albumin 2.9 L 05/19/21 05/19/21 05/19/21 05:19 07:44 11:08 MCV 88.4 MCH 28.1 MCHC 31.8 RDW 14.5 Plt Count 697 H MPV 8.6 L Immature Gran % (Auto) 0.5 H Neut % (Auto) 70.7 Lymph % (Auto) 16.[address] [place] % (Auto) 6.5 Eos % (Auto) 4.9 H Baso % (Auto) 0.5 Lymph # (Auto) 2.3 [place] # (Auto) 0.9 Eos # (Auto) 0.7 H Baso # (Auto) 0.1 Abs Immat Gran (auto) 0.07 H Absolute Neuts (auto) 9.4 H Absolute Nucleated RBC 0.000 Nucleated RBC % (auto) 0.0 Anion Gap Estim Creat Clear Calc Estimated GFR POC Glucose 119 H 124 H Fasting Glucose Calcium Total Bilirubin AST ALT Alkaline Phosphatase Total Protein Albumin Microbiology Microbiology Results: Microbiology 12/14/21 14:41 Blood Culture - Final Blood - Venous Corynebacterium species Procedures Date of Service Date of Service: 05/19/21 Progress Note: A&P Assessment and plan (1) Osteomyelitis: Status: Acute Assessment and Plan: He has osteomyelitis of the distal metatarsal of the 2nd toe on the right with subsequent pathologic fracture There is note of an ulcer underneath this with drainage. He has a PICC line for long-term IV antibiotics I told him that I am optimistic that this will heal He is more receptive to amputation at this time for this 2nd metatarsal but he wants to wait for another week or 2 I changes dressings and wrapped the foot with Shahab roll His creatinine remains elevated Fall Risk Details Current Medications: Current Medications Acetaminophen (Acetaminophen 325 Mg Tablet) 650 mg PO Q6H PRN PRN Reason: Pain, Mild (Pain Scale 1-3) Last Admin: 05/18/21 21:07 Dose: 650 mg Documented by: Dextrose (Dextrose 50 % 25 Gm/50 Ml Vial) 25 gm IVPUSH Q15M PRN; Protocol PRN Reason: per Hypoglycemia Standing Ord. Gabapentin (Gabapentin 300 Mg Capsule) 300 mg PO TID [facility] Last Admin: 05/19/21 08:02 Dose: 300 mg Documented by: Glucose (Glucose Gel 15 Gm Gel..Gram.) 15 gm PO Q15M PRN; Protocol PRN Reason: per Hypoglycemia Standing Ord. Heparin Sodium (Porcine) (Heparin Sodium,Porcine 5,000 Unit/Ml Vial) 5,000 unit SUBCUT Q12H [facility] Last Admin: 05/19/21 05:16 Dose: 5,000 unit Documented by: Piperacillin Sod/Tazobactam (Sod 3.375 gm/ Sodium Chloride) 50 mls @ 100 mls/hr IV Q6H [facility] Last Infusion: 05/19/21 09:58 Dose: Infused Documented by: Insulin Human Lispro (Insulin Lispro 100 Unit/Ml 3 Ml Vial) 0 unit SUBCUT QIDACHS [facility]; Protocol Last Admin: 05/19/21 12:42 Dose: Not Given Documented by: Ondansetron HCl (Ondansetron Hcl 4 Mg/2 Ml Vial) 4 mg IVPUSH Q8H PRN PRN Reason: Nausea and Vomiting Pharmacy Consult (Consult Rx Perform Med Rec) 1 each MISCELLANE ONCE PRN PRN Reason: Consult order Sodium Chloride (0.9 % Sodium Chloride Flush 3 Ml Syringe) 3 ml IVFLUSH QSHIFT [facility] Last Admin: 05/19/21 08:03 Dose: 3 ml Documented by: Time Spent With Patient Time: Total time spent is greater than 50% in coordination of care (as documented) at patient's floor/unit and/or counseling patient: Time with patient: 15 - 24 minutes Quality Stroke Does the patient have a stroke diagnosis?: No VTE Prior VTE?: No VTE Risk Level:: Medical - moderate - high VTE Device Contraindication: Treatment Not Indicated VTE Drug Contraindication: N/A - Med Ordered
--- NOTE | 2021-05-19 16:22 | MHC.CM.PN ---
RYAN RUIZ [place] REVIEWING FOR A BED OFFER. DAUGHTER CHRIS IS AWARE THAT NO LOCAL BED OFFERS ARE MADE AND THAT THERE ARE CURRENTLY NO VISITORS ALLOWED. CHRIS CAN BE REACHED AT [phone] SHE WILL INFORM PATIENT OF PROGRESS.
[2021-05-19 16:32] LABS: Glucose, Whole Blood 176 mg/dL (60-115)
[2021-05-19] MEDS: Insulin Lispro 100 UNIT/ML 3 ML VIAL SUBCUT ×2 (16:40→21:07)
--- NOTE | 2021-05-19 17:32 | PM.PNNEP ---
Subjective Subjective Date of Service: 05/19/21 Principal diagnosis: vanessa Interval history: Seen and examined, events noted Physical Exam Vital Signs: Vital Signs: Last Vital Signs Temp 97.8 F 05/19/21 15:41 Pulse 70 05/19/21 15:41 Resp 18 05/19/21 15:41 BP 154/68 H 05/19/21 15:41 Pulse Ox 99 05/19/21 15:41 BMI result Body Mass Index 34.1 Const: General: comfortable, no acute distress and alert Orientation/consciousness: patient oriented x3 Eyes: EOM: EOMs intact bilaterally Neck: Neck: Yes supple Resp: Auscultation: diminished lung sounds Cardio: Rate: regular rate GI: Palpation (GI): Soft to palpation Neuro: General: patient oriented x3 and moves all extremities Objective Data Labs CBC & Chem 7: 05/19/21 05:19 05/19/21 05:19 Labs: Laboratory Results - last 24 hr 05/18/21 05/19/21 05/19/21 19:35 05:19 05:19 WBC 13.3 H RBC 3.70 L Hgb 10.4 L Hct 32.7 L MCV 88.4 MCH 28.1 MCHC 31.8 RDW 14.5 Plt Count 697 H MPV 8.6 L Immature Gran % (Auto) 0.5 H Neut % (Auto) 70.7 Lymph % (Auto) 16.9 L [place] % (Auto) 6.5 Eos % (Auto) 4.9 H Baso % (Auto) 0.5 Lymph # (Auto) 2.3 [place] # (Auto) 0.9 Eos # (Auto) 0.7 H Baso # (Auto) 0.1 Abs Immat Gran (auto) 0.07 H Absolute Neuts (auto) 9.4 H Absolute Nucleated RBC 0.000 Nucleated RBC % (auto) 0.0 Sodium 139 Potassium 5.4 H Chloride 108 Carbon Dioxide 23 Anion Gap 13 BUN 46 H Creatinine 3.38 H Estim Creat Clear Calc 25.5 Estimated GFR 19 POC Glucose 350 H* Fasting Glucose 137 H Calcium 8.3 L Total Bilirubin 0.4 AST 77 H ALT 103 H Alkaline Phosphatase 62 Total Protein 7.5 Albumin 2.9 L 05/19/21 05/19/21 05/19/21 07:44 11:08 16:29 WBC RBC Hgb Hct MCV MCH MCHC RDW Plt Count MPV Immature Gran % (Auto) Neut % (Auto) Lymph % (Auto) [place] % (Auto) Eos % (Auto) Baso % (Auto) Lymph # (Auto) [place] # (Auto) Eos # (Auto) Baso # (Auto) Abs Immat Gran (auto) Absolute Neuts (auto) Absolute Nucleated RBC Nucleated RBC % (auto) Sodium Potassium Chloride Carbon Dioxide Anion Gap BUN Creatinine Estim Creat Clear Calc Estimated GFR POC Glucose 119 H 124 H 176 H Fasting Glucose Calcium Total Bilirubin AST ALT Alkaline Phosphatase Total Protein Albumin Microbiology Microbiology Results: Microbiology 05/11/21 14:41 Blood - Venous Blood Culture - Final Corynebacterium species 05/11/21 15:36 Blood - Venous Blood Culture - Final No growth after 5 days. 05/11/21 14:41 Foot Right Gram Stain - Final 05/11/21 14:41 Foot Right Routine Culture - Final Staphylococcus aureus Strep agalactiae (Grp B) Procedures Date of Service Date of Service: 05/19/21 Assessment & Plan Assessment and plan (1) VANESAS (acute kidney injury): Status: Acute Assessment and Plan: 1. VANESSA: most c/w multifact ATN in setting of infection BUT other poss include AGN related to infection AIN d/t infection vs ABx Obs uropathy:r/o by U/S c3/c4 normal goes againstinf GN but does not completely r/o 2. 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 Osteo 6. HyperKalemia REC: sero as ordered; protect LUE; if Scr cont worsen will need to strongly consider kideny Bx; low K diet and lokelma will follow bridger with team Time Spent With Patient Time: Total time spent is greater than 50% in coordination of care (as documented) at patient's floor/unit and/or counseling patient: Progress Note: Quality Stroke Does the patient have a stroke diagnosis?: No
[2021-05-19] MEDS: Sodium Zirconium Cyclosilicate 10 GM POWD.PACK PO (18:03)
[2021-05-19 21:01] LABS: Glucose, Whole Blood 178 mg/dL (60-115)
[2021-05-20] MEDS: Piperacillin Sodium/Tazobactam 2.25 GM in 0.9 % Sodium Chloride 50 ML IV ×4 (00:23→23:20)
[2021-05-20 04:00] VITALS: BP 121/69; PULSE 71; RESP 17; TEMP 36.4; O2SAT 96
[2021-05-20 05:42] LABS: MANUAL DIFF FLAG NO
[2021-05-20 05:45] LABS: Basophils Absolute Auto 0.1 X10*3/uL (0.0-0.2); Basophils Percent Auto 0.5 % (0-2); Eosinophils Absolute Auto 0.5 X10*3/uL (0.0-0.4); Eosinophils Percent Auto 3.8 % (0-4); Hemoglobin 10.7 g/dl (14.0-18.0); Imm Gran Abs Auto 0.06 X10*3/uL (0.00-0.03); Imm Gran Pct Auto 0.5 % (0.0-0.4); Lymphocytes Absolute Auto 2.1 X10*3/uL (1.2-4.9); Lymphocytes Percent Auto 15.7 % (20-40); Mean Corpuscular HGB Conc 31.5 g/dl (31.0-36.0); Mean Corpuscular Hemoglobin 27.8 pg (27.0-33.0); Mean Corpuscular Volume 88.3 fL (80.0-98.0); Mean Platelet Volume 8.5 fL (9.4-12.4); Monocytes Absolute Auto 0.8 X10*3/uL (0.1-1.2); Monocytes Percent Auto 6.2 % (2-11); Neutrophils Absolute Auto 9.7 x10*3/uL (2.0-8.3); Neutrophils Percent Auto 73.3 % (45-73); Platelet Count 710 X10*3/uL (160-400); Red Blood Count 3.85 X10*6/uL (4.60-5.80); Red Cell Distribution Width 14.4 % (11.0-16.0); White Blood Count 13.3 X10*3/uL (4.8-10.8)
[2021-05-20] MEDS: Heparin Sodium,Porcine 5,000 UNIT/ML VIAL 5000 UNIT SUBCUT ×2 (05:47→18:28)
[2021-05-20 06:23] LABS: Alanine Aminotransferase 126 U/L (0-40); Albumin Level 3.2 g/dL (3.5-5.0); Alkaline Phosphatase 70 U/L (39-117); Anion Gap 13 (12-20); Aspartate Amino Transferase 79 U/L (5-37); Bilirubin Total 0.5 mg/dL (0.0-1.0); Blood Urea Nitrogen 51 mg/dL (9-16); Calcium 8.8 mg/dL (8.4-10.2); Carbon Dioxide 22 mmol/L (22-29); Chloride 106 mmol/L (96-108); Creatinine Clr Calc Pharmacy 26.2; Estimated Glomerular Filt Rate 20; Glucose Fasting 215 mg/dL (60-99); Potassium 5.4 mmol/L (3.3-5.1); Sodium 136 mmol/L (135-145); Total Protein 8.1 g/dL (6.5-8.0)
[2021-05-20 07:22] VITALS: BP 116/73; PULSE 78; RESP 17; TEMP 36.9; O2SAT 99
[2021-05-20 07:26] LABS: Glucose, Whole Blood 183 mg/dL (60-115)
[2021-05-20] MEDS: Insulin Lispro 100 UNIT/ML 3 ML VIAL SUBCUT ×3 (07:42→21:24)
[2021-05-20] MEDS: Gabapentin 300 MG CAPSULE PO ×3 (07:43→21:23)
[2021-05-20] MEDS: 0.9 % Sodium Chloride Flush 3 ML SYRINGE IVFLUSH ×2 (07:46→16:07)
[2021-05-20 11:07] VITALS: BP 120/68; PULSE 70; RESP 16; TEMP 36.3; O2SAT 100
[2021-05-20 11:15] LABS: Glucose, Whole Blood 150 mg/dL (60-115)
--- NOTE | 2021-05-20 12:38 | PM.PNNEP ---
Subjective Subjective Date of Service: 05/20/21 Principal diagnosis: vanessa Interval history: Seen and examined, events noted Physical Exam Vital Signs: Vital Signs: Last Vital Signs Temp 97.3 F 05/20/21 11:07 Pulse 70 05/20/21 11:07 Resp 16 05/20/21 11:07 BP 120/68 05/20/21 11:07 Pulse Ox 100 05/20/21 11:07 BMI result Body Mass Index 34.1 Const: General: comfortable, no acute distress and alert Orientation/consciousness: patient oriented x3 Eyes: EOM: EOMs intact bilaterally Neck: Neck: Yes supple Resp: Auscultation: diminished lung sounds Cardio: Rate: regular rate GI: Palpation (GI): Soft to palpation Neuro: General: patient oriented x3 and moves all extremities Objective Data Labs CBC & Chem 7: 05/20/21 05:25 05/20/21 05:25 Labs: Laboratory Results - last 24 hr 05/19/21 05/19/21 05/20/21 16:29 20:55 05:25 WBC RBC Hgb Hct MCV MCH MCHC RDW Plt Count MPV Immature Gran % (Auto) Neut % (Auto) Lymph % (Auto) [place] % (Auto) Eos % (Auto) Baso % (Auto) Lymph # (Auto) [place] # (Auto) Eos # (Auto) Baso # (Auto) Abs Immat Gran (auto) Absolute Neuts (auto) Absolute Nucleated RBC Nucleated RBC % (auto) Sodium 136 Potassium 5.4 H Chloride 106 Carbon Dioxide 22 Anion Gap 13 BUN 51 H Creatinine 3.29 H Estim Creat Clear Calc 26.2 Estimated GFR 20 POC Glucose 176 H 178 H Fasting Glucose 215 H D Calcium 8.8 D Total Bilirubin 0.5 AST 79 H ALT 126 H Alkaline Phosphatase 70 Total Protein 8.1 H Albumin 3.2 L 05/20/21 05/20/21 05/20/21 05:25 07:14 11:08 WBC 13.3 H RBC 3.85 L Hgb 10.7 L Hct 34.0 L MCV 88.3 MCH 27.8 MCHC 31.5 RDW 14.4 Plt Count 710 H MPV 8.5 L Immature Gran % (Auto) 0.5 H Neut % (Auto) 73.3 H Lymph % (Auto) 15.7 L [place] % (Auto) 6.2 Eos % (Auto) 3.8 Baso % (Auto) 0.5 Lymph # (Auto) 2.1 [place] # (Auto) 0.8 Eos # (Auto) 0.5 H Baso # (Auto) 0.1 Abs Immat Gran (auto) 0.06 H Absolute Neuts (auto) 9.7 H Absolute Nucleated RBC 0.000 Nucleated RBC % (auto) 0.0 Sodium Potassium Chloride Carbon Dioxide Anion Gap BUN Creatinine Estim Creat Clear Calc Estimated GFR POC Glucose 183 H 150 H Fasting Glucose Calcium Total Bilirubin AST ALT Alkaline Phosphatase Total Protein Albumin Microbiology Microbiology Results: Microbiology 05/11/21 14:41 Blood - Venous Blood Culture - Final Corynebacterium species 05/11/21 15:36 Blood - Venous Blood Culture - Final No growth after 5 days. 05/11/21 14:41 Foot Right Gram Stain - Final 05/11/21 14:41 Foot Right Routine Culture - Final Staphylococcus aureus Strep agalactiae (Grp B) Procedures Date of Service Date of Service: 05/20/21 Assessment & Plan Assessment and plan (1) VANESSA (acute kidney injury): Status: Acute Assessment and Plan: 1. VANESSA: most c/w multifact ATN in setting of infection BUT other poss include; Scr cont grad decr--albeit slowly AGN related to infection AIN d/t infection vs ABx Obs uropathy:r/o by U/S c3/c4 normal goes againstinf GN but does not completely r/o 2. 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 Osteo 6. HyperKalemia REC: sero as ordered; protect LUE; if Scr cont worsen will need to strongly consider kideny Bx; low K diet and lokelma will follow bridger with team Time Spent With Patient Time: Total time spent is greater than 50% in coordination of care (as documented) at patient's floor/unit and/or counseling patient: Progress Note: Quality Stroke Does the patient have a stroke diagnosis?: No
[2021-05-20] MEDS: Sodium Zirconium Cyclosilicate 10 GM POWD.PACK PO (13:50)
--- NOTE | 2021-05-20 13:53 | HO.PM.IMPN ---
Subjective Subjective Date of Service: 05/20/21 Interval History: no acute issues overnight Review of Systems denies chest pain Denies shortness of breath Denies nausea vomiting diarrhea Physical Exam Vital Signs: Vital Signs: Last Vital Signs Temp 97.3 F 05/20/21 11:07 Pulse 70 05/20/21 11:07 Resp 16 05/20/21 11:07 BP 120/68 05/20/21 11:07 Pulse Ox 100 05/20/21 11:07 BMI result Body Mass Index 34.1 Const: Other: No acute distress Resp: Other: Clear to auscultation bilaterally no rales rhonchi wheezes Cardio: Other: No S4; S1-S2; no S3 murmurs Os-Pankaj GI: Other: soft nontender nondistended with normoactive bowel sounds Extrem: Other: Right foot with tight Robert wrap . Objective Data Active Medications Acetaminophen (Acetaminophen 325 Mg Tablet) 650 mg PO Q6H PRN PRN Reason: Pain, Mild (Pain Scale 1-3) Last Admin: 05/18/21 21:07 Dose: 650 mg Documented by: JENNIFER Dextrose (Dextrose 50 % 25 Gm/50 Ml Vial) 25 gm IVPUSH Q15M PRN; Protocol PRN Reason: per Hypoglycemia Standing Ord. Gabapentin (Gabapentin 300 Mg Capsule) 300 mg PO TID [facility] Last Admin: 05/20/21 07:43 Dose: 300 mg Documented by: SYL Glucose (Glucose Gel 15 Gm Gel..Gram.) 15 gm PO Q15M PRN; Protocol PRN Reason: per Hypoglycemia Standing Ord. Heparin Sodium (Porcine) (Heparin Sodium,Porcine 5,000 Unit/Ml Vial) 5,000 unit SUBCUT Q12H [facility] Last Admin: 05/20/21 05:47 Dose: 5,000 unit Documented by: APOORVA Piperacillin Sod/Tazobactam (Sod 2.25 gm/ Sodium Chloride) 50 mls @ 100 mls/hr IV Q8H [facility] Last Infusion: 05/20/21 08:19 Dose: 0 mls/hr Documented by: JORGE Insulin Human Lispro (Insulin Lispro 100 Unit/Ml 3 Ml Vial) 0 unit SUBCUT QIDACHS [facility]; Protocol Last Admin: 05/20/21 11:17 Dose: Not Given Documented by: SYL Non-Admin Reason: No Insulin Coverage Ondansetron HCl (Ondansetron Hcl 4 Mg/2 Ml Vial) 4 mg IVPUSH Q8H PRN PRN Reason: Nausea and Vomiting Pharmacy Consult (Consult Rx Perform Med Rec) 1 each MISCELLANE ONCE PRN PRN Reason: Consult order Sodium Chloride (0.9 % Sodium Chloride Flush 3 Ml Syringe) 3 ml IVFLUSH QSHIFT [facility] Last Admin: 05/20/21 07:46 Dose: 3 ml Documented by: SYL Labs CBC & Chem 7: 05/20/21 05:25 05/20/21 05:25 Labs: Laboratory Results - last 24 hr 05/19/21 05/19/21 05/20/21 16:29 20:55 05:25 MCV MCH MCHC RDW Plt Count MPV Immature Gran % (Auto) Neut % (Auto) Lymph % (Auto) [place] % (Auto) Eos % (Auto) Baso % (Auto) Lymph # (Auto) [place] # (Auto) Eos # (Auto) Baso # (Auto) Abs Immat Gran (auto) Absolute Neuts (auto) Absolute Nucleated RBC Nucleated RBC % (auto) Anion Gap 13 Estim Creat Clear Calc 26.2 Estimated GFR 20 POC Glucose 176 H 178 H Fasting Glucose 215 H D Calcium 8.8 D Total Bilirubin 0.5 AST 79 H ALT 126 H Alkaline Phosphatase 70 Total Protein 8.1 H Albumin 3.2 L 05/20/21 05/20/21 05/20/21 05:25 07:14 11:08 MCV 88.3 MCH 27.8 MCHC 31.5 RDW 14.4 Plt Count 710 H MPV 8.5 L Immature Gran % (Auto) 0.5 H Neut % (Auto) 73.3 H Lymph % (Auto) 15.7 L [place] % (Auto) 6.2 Eos % (Auto) 3.8 Baso % (Auto) 0.5 Lymph # (Auto) 2.1 [place] # (Auto) 0.8 Eos # (Auto) 0.5 H Baso # (Auto) 0.1 Abs Immat Gran (auto) 0.06 H Absolute Neuts (auto) 9.7 H Absolute Nucleated RBC 0.000 Nucleated RBC % (auto) 0.0 Anion Gap Estim Creat Clear Calc Estimated GFR POC Glucose 183 H 150 H Fasting Glucose Calcium Total Bilirubin AST ALT Alkaline Phosphatase Total Protein Albumin Assessment and Plan (1) VANESSA (acute kidney injury): Status: Acute (2) CKD stage G3b/A2, GFR 30-44 and albumin creatinine ratio 30-299 mg/g: Status: Acute (3) Osteomyelitis: Status: Acute Assessment and Plan: 56 year old man admitted with osteomyelitis and pathological fracture to right foot. Previous diagnostic imaging studies did not show osteomyelitis. States was seen at [facility] earlier this week by Podiatry; was told he would need surgery in July to remove the infected bone. Awaiting placement. 1.Acute osteomyelitis With pathological fracture of 2nd metatarsal Continue Zosyn (day 8)...6 week total 2.Type II DM Sliding scale, ADA diet Usually on Insulin Pump at home...will D/C while inoatient. Can reume when D/C 3.NEEMA. CPAP at HS 4.CKD 3 Continues to improve...conservatives at this time Low K+ diet DVT prophylaxis with heparin Full code Quality Stroke Does the patient have a stroke diagnosis?: No VTE Prior VTE?: No VTE Risk Level:: Medical - moderate - high VTE Device Contraindication: Treatment Not Indicated VTE Drug Contraindication: N/A - Med Ordered
[2021-05-20 15:12] VITALS: BP 142/74; PULSE 75; RESP 19; TEMP 37; O2SAT 100
--- NOTE | 2021-05-20 15:56 | MHC.CM.PN ---
Addendum entered by Brenda Snow 05/20/21 15:59: T/C TO DAUGHTER CHANTELL [phone] MESSAGE LEFT INFORMING HER THE REHAB BED WE HAD PENDING FOR HER FATHER DECLINED AND WE WERE MAKING ADDITIONAL REFERRALS A BROADER SEARCH, MESSAGE LEFT OF HOW TO CONTACT ME WITH PHONE NUMBER Original Note: NURSE [facility] TE[facility]ER DISCHARGE REHAB FOR [facility] CATH AND SHELTER IV ABX. RE SUBMITTED OTHER FACILITITIES TO SE IF THEY COULD TAKE HIM
[2021-05-20 16:15] LABS: Glucose, Whole Blood 188 mg/dL (60-115)
[2021-05-20 16:41] LABS: IgA 1223 mg/dL (47-310); IgG 1985 mg/dL (600-1640); IgM 135 mg/dL (50-300)
[2021-05-20 20:00] VITALS: BP 151/71; PULSE 75; RESP 18; TEMP 36.3; O2SAT 98
[2021-05-20 21:17] LABS: Glucose, Whole Blood 194 mg/dL (60-115)
[2021-05-21] VITALS (9 sets, daily range): BP systolic 125–158; BP diastolic 60–79; PULSE 71–76; RESP 16–22; TEMP 35.6–36.4; O2SAT 96–100
[2021-05-21] MEDS: Heparin Sodium,Porcine 5,000 UNIT/ML VIAL 5000 UNIT SUBCUT ×2 (05:29→18:05)
[2021-05-21 05:52] LABS: MANUAL DIFF FLAG NO
[2021-05-21 06:01] LABS: Basophils Absolute Auto 0.1 X10*3/uL (0.0-0.2); Basophils Percent Auto 0.5 % (0-2); Eosinophils Absolute Auto 0.5 X10*3/uL (0.0-0.4); Eosinophils Percent Auto 3.2 % (0-4); Hematocrit 34.2 % (42.0-52.0); Hemoglobin 10.6 g/dl (14.0-18.0); Imm Gran Abs Auto 0.05 X10*3/uL (0.00-0.03); Imm Gran Pct Auto 0.4 % (0.0-0.4); Lymphocytes Absolute Auto 2.4 X10*3/uL (1.2-4.9); Lymphocytes Percent Auto 17.3 % (20-40); Mean Corpuscular Hemoglobin 27.5 pg (27.0-33.0); Mean Corpuscular Volume 88.8 fL (80.0-98.0); Mean Platelet Volume 8.7 fL (9.4-12.4); Monocytes Absolute Auto 0.9 X10*3/uL (0.1-1.2); Monocytes Percent Auto 6.4 % (2-11); Neutrophils Absolute Auto 10.1 x10*3/uL (2.0-8.3); Neutrophils Percent Auto 72.2 % (45-73); Platelet Count 729 X10*3/uL (160-400); Red Blood Count 3.85 X10*6/uL (4.60-5.80); Red Cell Distribution Width 14.6 % (11.0-16.0)
[2021-05-21 08:30] LABS: Glucose, Whole Blood 163 mg/dL (60-115)
[2021-05-21] MEDS: Insulin Lispro 100 UNIT/ML 3 ML VIAL SUBCUT ×4 (08:50→21:03)
[2021-05-21] MEDS: Gabapentin 300 MG CAPSULE PO ×3 (08:51→21:03)
[2021-05-21] MEDS: Piperacillin Sodium/Tazobactam 2.25 GM in 0.9 % Sodium Chloride 50 ML IV ×2 (08:51→15:33)
[2021-05-21] MEDS: 0.9 % Sodium Chloride Flush 3 ML SYRINGE IVFLUSH ×2 (08:51→15:34)
--- NOTE | 2021-05-21 09:31 | PM.PNNEP ---
Subjective Subjective Date of Service: 05/21/21 Principal diagnosis: vanessa Interval history: seen and examined sitting out of bed no complaints Physical Exam Vital Signs: Vital Signs: Last Vital Signs Temp 96.1 F L 05/21/21 08:00 Pulse 75 05/21/21 08:00 Resp 19 05/21/21 08:00 BP 135/68 05/21/21 08:00 Pulse Ox 98 05/21/21 08:00 BMI result Body Mass Index 34.1 Const: General: comfortable and no acute distress HENMT: Head: Yes normocephalic and Yes atraumatic Neck: Neck: Yes supple Resp: Auscultation: diminished lung sounds Cardio: Heart sounds: S1 normal heart sound present and S2 normal heart sound present GI: Palpation (GI): Soft to palpation and nontender Extrem: General: No edema Objective Data Labs CBC & Chem 7: 05/21/21 05:17 05/20/21 05:25 Labs: Laboratory Results - last 24 hr 05/17/21 05/20/21 05/20/21 12:42 11:08 16:11 WBC RBC Hgb Hct MCV MCH MCHC RDW Plt Count MPV Immature Gran % (Auto) Neut % (Auto) Lymph % (Auto) [place] % (Auto) Eos % (Auto) Baso % (Auto) Lymph # (Auto) [place] # (Auto) Eos # (Auto) Baso # (Auto) Abs Immat Gran (auto) Absolute Neuts (auto) Absolute Nucleated RBC Nucleated RBC % (auto) POC Glucose 150 H 188 H IgG Total 1985 H IgA Total 1223 H IgM 135 HANS Interpretation SEE NOTE 05/20/21 05/21/21 05/21/21 20:45 05:17 08:05 WBC 14.0 H RBC 3.85 L Hgb 10.6 L Hct 34.2 L MCV 88.8 MCH 27.5 MCHC 31.0 RDW 14.6 Plt Count 729 H MPV 8.7 L Immature Gran % (Auto) 0.4 Neut % (Auto) 72.2 Lymph % (Auto) 17.3 L [place] % (Auto) 6.4 Eos % (Auto) 3.2 Baso % (Auto) 0.5 Lymph # (Auto) 2.4 [place] # (Auto) 0.9 Eos # (Auto) 0.5 H Baso # (Auto) 0.1 Abs Immat Gran (auto) 0.05 H Absolute Neuts (auto) 10.1 H Absolute Nucleated RBC 0.000 Nucleated RBC % (auto) 0.0 POC Glucose 194 H 163 H IgG Total IgA Total IgM HANS Interpretation Microbiology Microbiology Results: Microbiology 05/11/21 14:41 Blood - Venous Blood Culture - Final Corynebacterium species 05/11/21 15:36 Blood - Venous Blood Culture - Final No growth after 5 days. 05/11/21 14:41 Foot Right Gram Stain - Final 05/11/21 14:41 Foot Right Routine Culture - Final Staphylococcus aureus Strep agalactiae (Grp B) Procedures Date of Service Date of Service: 05/21/21 Assessment & Plan Assessment and plan (1) VANESSA (acute kidney injury): Status: Acute (2) Hyperkalemia: Status: Acute (3) CKD (chronic kidney disease) stage 3, GFR 30-59 ml/min: Status: Acute Assessment and Plan: Scr marginally better VANESSA due to acute tubular injury kidney US negative for obstruction normal complement level normal serum immunofixation underlying CKD baseline Scr ~ 1.5-2 mg/dl REC sodium zirconium as needed may need kidney biopsy if no recovery follow kidney function and electrolytes Time Spent With Patient Time: Total time spent is greater than 50% in coordination of care (as documented) at patient's floor/unit and/or counseling patient: Progress Note: Quality Stroke Does the patient have a stroke diagnosis?: No
[2021-05-21 11:55] LABS: Glucose, Whole Blood 190 mg/dL (60-115)
--- NOTE | 2021-05-21 12:21 | HO.PM.IMPN ---
Subjective Subjective Date of Service: 05/21/21 Interval History: the patient was seen and evaluated this morning Laying in bed, feels comfortable Denies any fever, chills or shortness of breath No reported other overnight events. Systemic review: No fever, chills or weakness No chest pain, palpitation No shortness of breath or coughing No abdominal pain, nausea or vomiting No urinary symptoms foot wound Physical Exam Vital Signs: Vital Signs: Last Vital Signs Temp 96.7 F L 05/21/21 11:47 Pulse 73 05/21/21 11:47 Resp 19 05/21/21 11:47 BP 125/79 05/21/21 11:47 Pulse Ox 100 05/21/21 11:47 BMI result Body Mass Index 34.1 Const: Other: Constitutional : Alert, oriented, not in distress Neck : Normal inspection, Supple Cardiovascular : RRR, S1 S2, no lower extremity edema Respiratory : Good bilateral air entry, no crackles, wheezes or rhonchi Gastrointestinal: soft, lax, Normal bowel sounds, Non tender Skin : Warm, Dry, foot wound covered with dressing with no drainage or bleeding noticed Neurological : Alert & oriented x3, No focal deficit Objective Data Active Medications Acetaminophen (Acetaminophen 325 Mg Tablet) 650 mg PO Q6H PRN PRN Reason: Pain, Mild (Pain Scale 1-3) Last Admin: 05/18/21 21:07 Dose: 650 mg Documented by: JENNIFER Dextrose (Dextrose 50 % 25 Gm/50 Ml Vial) 25 gm IVPUSH Q15M PRN; Protocol PRN Reason: per Hypoglycemia Standing Ord. Gabapentin (Gabapentin 300 Mg Capsule) 300 mg PO TID [facility] Last Admin: 05/21/21 08:51 Dose: 300 mg Documented by: MONIQUE Glucose (Glucose Gel 15 Gm Gel..Gram.) 15 gm PO Q15M PRN; Protocol PRN Reason: per Hypoglycemia Standing Ord. Heparin Sodium (Porcine) (Heparin Sodium,Porcine 5,000 Unit/Ml Vial) 5,000 unit SUBCUT Q12H [facility] Last Admin: 05/21/21 05:29 Dose: 5,000 unit Documented by: MAILE Piperacillin Sod/Tazobactam (Sod 2.25 gm/ Sodium Chloride) 50 mls @ 100 mls/hr IV Q8H [facility] Last Infusion: 05/21/21 09:45 Dose: 0 mls/hr Documented by: MONIQUE Insulin Human Lispro (Insulin Lispro 100 Unit/Ml 3 Ml Vial) 0 unit SUBCUT QIDACHS [facility]; Protocol Last Admin: 05/21/21 08:50 Dose: 2 unit Documented by: MONIQUE Ondansetron HCl (Ondansetron Hcl 4 Mg/2 Ml Vial) 4 mg IVPUSH Q8H PRN PRN Reason: Nausea and Vomiting Pharmacy Consult (Consult Rx Perform Med Rec) 1 each MISCELLANE ONCE PRN PRN Reason: Consult order Sodium Chloride (0.9 % Sodium Chloride Flush 3 Ml Syringe) 3 ml IVFLUSH [facility] Last Admin: 05/21/21 08:51 Dose: 3 ml Documented by: MONIQUE Labs CBC & Chem 7: 05/21/21 05:17 05/20/21 05:25 Labs: Laboratory Results - last 24 hr 05/17/21 05/20/21 05/20/21 12:42 16:11 20:45 MCV MCH MCHC RDW Plt Count MPV Immature Gran % (Auto) Neut % (Auto) Lymph % (Auto) [place] % (Auto) Eos % (Auto) Baso % (Auto) Lymph # (Auto) [place] # (Auto) Eos # (Auto) Baso # (Auto) Abs Immat Gran (auto) Absolute Neuts (auto) Absolute Nucleated RBC Nucleated RBC % (auto) POC Glucose 188 H 194 H IgG Total 1985 H IgA Total 1223 H IgM 135 HANS Interpretation SEE NOTE 05/21/21 05/21/21 05/21/21 05:17 08:05 11:46 MCV 88.8 MCH 27.5 MCHC 31.0 RDW 14.6 Plt Count 729 H MPV 8.7 L Immature Gran % (Auto) 0.4 Neut % (Auto) 72.2 Lymph % (Auto) 17.3 L [place] % (Auto) 6.4 Eos % (Auto) 3.2 Baso % (Auto) 0.5 Lymph # (Auto) 2.4 [place] # (Auto) 0.9 Eos # (Auto) 0.5 H Baso # (Auto) 0.1 Abs Immat Gran (auto) 0.05 H Absolute Neuts (auto) 10.1 H Absolute Nucleated RBC 0.000 Nucleated RBC % (auto) 0.0 POC Glucose 163 H 190 H IgG Total IgA Total IgM HANS Interpretation Assessment and Plan (1) Osteomyelitis: Status: Acute (2) VANESSA (acute kidney injury): Status: Acute (3) Hyperkalemia: Status: Acute Assessment and Plan: 56 year old man admitted with osteomyelitis and pathological fracture to right foot. Previous diagnostic imaging studies did not show osteomyelitis. States was seen at [facility] earlier this week by Podiatry; was told he would need surgery in July to remove the infected bone. Awaiting placement. 1.Acute osteomyelitis With pathological fracture of 2nd metatarsal id input appreciated Continue Zosyn (day 9)...6 week total 2.Type II DM Sliding scale, ADA diet Usually on Insulin Pump at home...will D/C while inoatient. Can reume when D/C 3.NEEMA. CPAP at HS 4.CKD 3 Continues to improve...conservatives at this time Low K+ diet DVT prophylaxis with heparin Full code Quality Stroke Does the patient have a stroke diagnosis?: No VTE Prior VTE?: No VTE Risk Level:: Medical - moderate - high VTE Device Contraindication: Treatment Not Indicated VTE Drug Contraindication: N/A - Med Ordered
--- NOTE | 2021-05-21 15:38 | MHC.CM.PN ---
nurse case managger note referrals sent out 05/20/21 as follows [facility], [facility], [facility], [facility], [facility], z[facility] ovalle all decline no bed availability. christine cosme out of network asked if they would work with [email or web address] to see if they could work out a payement
[2021-05-21 16:45] LABS: Glucose, Whole Blood 193 mg/dL (60-115)
[2021-05-21 20:32] LABS: Glucose, Whole Blood 197 mg/dL (60-115)
[2021-05-22] VITALS: BP 149/64; PULSE 77; RESP 16; TEMP 36.2; O2SAT 96
[2021-05-22] MEDS: Piperacillin Sodium/Tazobactam 2.25 GM in 0.9 % Sodium Chloride 50 ML IV ×4 (00:12→23:54)
[2021-05-22] MEDS: Heparin Sodium,Porcine 5,000 UNIT/ML VIAL 5000 UNIT SUBCUT ×2 (05:45→16:57)
[2021-05-22 07:33] VITALS: BP 171/74; PULSE 77; RESP 16; TEMP 36.3; O2SAT 99
[2021-05-22 07:43] LABS: Anion Gap 14 (12-20); Blood Urea Nitrogen 54 mg/dL (9-16); Calcium 8.8 mg/dL (8.4-10.2); Carbon Dioxide 24 mmol/L (22-29); Chloride 105 mmol/L (96-108); Creatinine Clr Calc Pharmacy 27.1; Estimated Glomerular Filt Rate 20; Glucose Random 199 mg/dL (60-115); Sodium 137 mmol/L (135-145)
[2021-05-22 07:50] LABS: Glucose, Whole Blood 172 mg/dL (60-115)
[2021-05-22] MEDS: 0.9 % Sodium Chloride Flush 3 ML SYRINGE IVFLUSH ×2 (07:52→16:56)
[2021-05-22] MEDS: Insulin Lispro 100 UNIT/ML 3 ML VIAL SUBCUT ×3 (07:52→21:36)
[2021-05-22] MEDS: Gabapentin 300 MG CAPSULE PO ×3 (07:52→21:36)
[2021-05-22] MEDS: Sodium Zirconium Cyclosilicate 10 GM POWD.PACK PO (08:33)
--- NOTE | 2021-05-22 08:57 | PM.PNNEP ---
Subjective Subjective Date of Service: 05/22/21 Principal diagnosis: vanessa Interval history: seen and examined sitting out of bed no complaints Physical Exam Vital Signs: Vital Signs: Last Vital Signs Temp 97.4 F 05/22/21 07:33 Pulse 77 05/22/21 07:33 Resp 16 05/22/21 07:33 BP 171/74 H 05/22/21 07:33 Pulse Ox 99 05/22/21 07:33 BMI result Body Mass Index 34.1 Const: General: comfortable and no acute distress HENMT: Head: Yes normocephalic and Yes atraumatic Neck: Neck: Yes supple Resp: Auscultation: diminished lung sounds Cardio: Heart sounds: S1 normal heart sound present and S2 normal heart sound present GI: Palpation (GI): Soft to palpation and nontender Extrem: General: No edema Objective Data Labs CBC & Chem 7: 05/21/21 05:17 05/22/21 06:27 Labs: Laboratory Results - last 24 hr 05/21/21 05/21/21 05/21/21 11:46 16:35 20:28 Sodium Potassium Chloride Carbon Dioxide Anion Gap BUN Creatinine Estim Creat Clear Calc Estimated GFR POC Glucose 190 H 193 H 197 H Random Glucose Calcium 05/22/21 05/22/21 06:27 07:31 Sodium 137 Potassium 6.0 H* Chloride 105 Carbon Dioxide 24 Anion Gap 14 BUN 54 H Creatinine 3.18 H Estim Creat Clear Calc 27.1 Estimated GFR 20 POC Glucose 172 H Random Glucose 199 H Calcium 8.8 Microbiology Microbiology Results: Microbiology 05/11/21 14:41 Blood - Venous Blood Culture - Final Corynebacterium species 05/11/21 15:36 Blood - Venous Blood Culture - Final No growth after 5 days. 05/11/21 14:41 Foot Right Gram Stain - Final 05/11/21 14:41 Foot Right Routine Culture - Final Staphylococcus aureus Strep agalactiae (Grp B) Procedures Date of Service Date of Service: 05/22/21 Assessment & Plan Assessment and plan (1) VANESSA (acute kidney injury): Status: Acute (2) Hyperkalemia: Status: Acute (3) CKD (chronic kidney disease) stage 3, GFR 30-59 ml/min: Status: Acute Assessment and Plan: VANESSA due to acute tubular injury kidney US negative for obstruction normal complement level normal serum immunofixation underlying CKD baseline Scr ~ 1.5-2 mg/dl BP elevated REC sodium zirconium 10 gram x 1 add amlodipine 2.5 mg if BP remains elevated may need kidney biopsy if no recovery follow kidney function and electrolytes Time Spent With Patient Time: Total time spent is greater than 50% in coordination of care (as documented) at patient's floor/unit and/or counseling patient: Progress Note: Quality Stroke Does the patient have a stroke diagnosis?: No
--- NOTE | 2021-05-22 09:15 | MHC.CM.PN ---
EMR REVIEWED, UPDATED CLINICALS SENT TO [facility], [facility] AND [facility], CM WILL CONT TO FOLLOW FOR BED OFFERS.
--- NOTE | 2021-05-22 10:47 | HO.PM.IMPN ---
Subjective Subjective Date of Service: 05/22/21 Interval History: the patient was seen and evaluated this morning Laying in bed, feels comfortable Potassium of 6 this morning Denies any fever, chills or shortness of breath No reported other overnight events. Systemic review: No fever, chills or weakness No chest pain, palpitation No shortness of breath or coughing No abdominal pain, nausea or vomiting No urinary symptoms foot wound Physical Exam Vital Signs: Vital Signs: Last Vital Signs Temp 97.4 F 05/22/21 07:33 Pulse 77 05/22/21 07:33 Resp 16 05/22/21 07:33 BP 171/74 H 05/22/21 07:33 Pulse Ox 99 05/22/21 07:33 BMI result Body Mass Index 34.1 Const: Other: Constitutional : Alert, oriented, not in distress Neck : Normal inspection, Supple Cardiovascular : RRR, S1 S2, no lower extremity edema Respiratory : Good bilateral air entry, no crackles, wheezes or rhonchi Gastrointestinal: soft, lax, Normal bowel sounds, Non tender Skin : Warm, Dry, foot wound covered with dressing with no drainage or bleeding noticed Neurological : Alert & oriented x3, No focal deficit Objective Data Active Medications Acetaminophen (Acetaminophen 325 Mg Tablet) 650 mg PO Q6H PRN PRN Reason: Pain, Mild (Pain Scale 1-3) Last Admin: 05/18/21 21:07 Dose: 650 mg Documented by: JENNIFER Dextrose (Dextrose 50 % 25 Gm/50 Ml Vial) 25 gm IVPUSH Q15M PRN; Protocol PRN Reason: per Hypoglycemia Standing Ord. Gabapentin (Gabapentin 300 Mg Capsule) 300 mg PO TID [facility] Last Admin: 05/22/21 07:52 Dose: 300 mg Documented by: COTEMA Glucose (Glucose Gel 15 Gm Gel..Gram.) 15 gm PO Q15M PRN; Protocol PRN Reason: per Hypoglycemia Standing Ord. Heparin Sodium (Porcine) (Heparin Sodium,Porcine 5,000 Unit/Ml Vial) 5,000 unit SUBCUT Q12H [facility] Last Admin: 05/22/21 05:45 Dose: 5,000 unit Documented by: APOORVA Piperacillin Sod/Tazobactam (Sod 2.25 gm/ Sodium Chloride) 50 mls @ 100 mls/hr IV Q8H [facility] Last Infusion: 05/22/21 08:31 Dose: 0 mls/hr Documented by: JORGE Insulin Human Lispro (Insulin Lispro 100 Unit/Ml 3 Ml Vial) 0 unit SUBCUT QIDACHS [facility]; Protocol Last Admin: 05/22/21 07:52 Dose: 2 unit Documented by: JORGE Ondansetron HCl (Ondansetron Hcl 4 Mg/2 Ml Vial) 4 mg IVPUSH Q8H PRN PRN Reason: Nausea and Vomiting Pharmacy Consult (Consult Rx Perform Med Rec) 1 each MISCELLANE ONCE PRN PRN Reason: Consult order Sodium Chloride (0.9 % Sodium Chloride Flush 3 Ml Syringe) [facility] Last Admin: 05/22/21 07:52 Dose: 3 ml Documented by: JORGE Labs CBC & Chem 7: 05/21/21 05:17 05/22/21 06:27 Labs: Laboratory Results - last 24 hr 05/21/21 05/21/21 05/21/21 11:46 16:35 20:28 Anion Gap Estim Creat Clear Calc Estimated GFR POC Glucose 190 H 193 H 197 H Random Glucose Calcium 05/22/21 05/22/21 06:27 07:31 Anion Gap 14 Estim Creat Clear Calc 27.1 Estimated GFR 20 POC Glucose 172 H Random Glucose 199 H Calcium 8.8 Assessment and Plan (1) Hyperkalemia: Status: Acute (2) Osteomyelitis: Status: Acute Assessment and Plan: 56 year old man admitted with osteomyelitis and pathological fracture to right foot. Previous diagnostic imaging studies did not show osteomyelitis. States was seen at [facility] earlier this week by Podiatry; was told he would need surgery in July to remove the infected bone. Awaiting placement. Acute osteomyelitis With pathological fracture of 2nd metatarsal id input appreciated Continue Zosyn (day 10)...6 week total, to be discharged on ertapenem per ID hyperkalemia Potassium of 6 Given Lokelma To repeat BMP Type II DM Sliding scale, ADA diet Usually on Insulin Pump at home...will D/C while inoatient. Can reume when D/C NEEMA. CPAP at HS CKD 3 Continues to improve...conservatives at this time Low K+ diet DVT prophylaxis with heparin Full code Quality Stroke Does the patient have a stroke diagnosis?: No VTE Prior VTE?: No VTE Risk Level:: Medical - moderate - high VTE Device Contraindication: Treatment Not Indicated VTE Drug Contraindication: N/A - Med Ordered
[2021-05-22 11:05] VITALS: BP 158/72; PULSE 76; RESP 16; TEMP 36.4; O2SAT 100
[2021-05-22 11:30] LABS: Glucose, Whole Blood 229 mg/dL (60-115)
[2021-05-22 13:20] LABS: Anion Gap 15 (12-20); Blood Urea Nitrogen 51 mg/dL (9-16); Calcium 8.2 mg/dL (8.4-10.2); Carbon Dioxide 20 mmol/L (22-29); Chloride 106 mmol/L (96-108); Creatinine Clr Calc Pharmacy 25.3; Estimated Glomerular Filt Rate 19; Glucose Random 299 mg/dL (60-115); Potassium 5.6 mmol/L (3.3-5.1); Sodium 135 mmol/L (135-145)
[2021-05-22 16:00] VITALS: BP 139/69; PULSE 74; RESP 18; TEMP 36.1; O2SAT 99
[2021-05-22 16:44] LABS: Glucose, Whole Blood 150 mg/dL (60-115)
[2021-05-22 19:37] VITALS: BP 147/75; PULSE 79; RESP 18; TEMP 36.3; O2SAT 98
[2021-05-22 20:35] LABS: Glucose, Whole Blood 205 mg/dL (60-115)
[2021-05-22 23:48] VITALS: BP 130/68; PULSE 77; RESP 18; TEMP 36.9; O2SAT 94
[2021-05-23 00:47] LABS: Glucose, Whole Blood 256 mg/dL (60-115)
[2021-05-23] MEDS: Heparin Sodium,Porcine 5,000 UNIT/ML VIAL 5000 UNIT SUBCUT ×2 (05:38→17:07)
[2021-05-23 07:17] LABS: Anion Gap 15 (12-20); Blood Urea Nitrogen 54 mg/dL (9-16); Calcium 8.8 mg/dL (8.4-10.2); Carbon Dioxide 21 mmol/L (22-29); Chloride 107 mmol/L (96-108); Creatinine Clr Calc Pharmacy 25.2; Estimated Glomerular Filt Rate 19; Glucose Random 201 mg/dL (60-115); Potassium 5.8 mmol/L (3.3-5.1); Sodium 137 mmol/L (135-145)
[2021-05-23 07:21] VITALS: BP 133/71; PULSE 77; RESP 18; TEMP 36; O2SAT 100
[2021-05-23 07:28] LABS: Glucose, Whole Blood 174 mg/dL (60-115)
[2021-05-23] MEDS: Piperacillin Sodium/Tazobactam 2.25 GM in 0.9 % Sodium Chloride 50 ML IV ×2 (07:47→15:51)
[2021-05-23] MEDS: Insulin Lispro 100 UNIT/ML 3 ML VIAL SUBCUT ×4 (07:47→21:19)
[2021-05-23] MEDS: Gabapentin 300 MG CAPSULE PO ×3 (07:47→21:19)
[2021-05-23] MEDS: 0.9 % Sodium Chloride Flush 3 ML SYRINGE IVFLUSH ×2 (07:48→15:51)
--- NOTE | 2021-05-23 08:39 | MHC.CM.PN ---
REFERRAL PLACED TO [facility] IN HOPES OF SECURING SERVICES SO THAT PATIENT CAN RETURN HOME (FIRST CHOICE) [facility] IS CURRENTLY WILLING TO ATTEMPT INSURANCE AUTHORIZATION ON Monday05/24/21 CASE MANAGEMENT TO FOLLOW UP WITH PLAN ON MONDAY
--- NOTE | 2021-05-23 10:01 | PM.PNNEP ---
Subjective Subjective Date of Service: 05/23/21 Principal diagnosis: vanessa Interval history: seen and examined denies SOB, CP, N/V/D Physical Exam Vital Signs: Vital Signs: Last Vital Signs Temp 96.8 F 05/23/21 07:21 Pulse 77 05/23/21 07:21 Resp 18 05/23/21 07:21 BP 133/71 05/23/21 07:21 Pulse Ox 100 05/23/21 07:21 BMI result Body Mass Index 34.1 Const: General: comfortable and no acute distress HENMT: Head: Yes normocephalic and Yes atraumatic Neck: Neck: Yes supple Resp: Auscultation: diminished lung sounds Cardio: Heart sounds: S1 normal heart sound present and S2 normal heart sound present GI: Palpation (GI): Soft to palpation and nontender Extrem: General: No edema Objective Data Labs CBC & Chem 7: 05/21/21 05:17 05/23/21 06:11 Labs: Laboratory Results - last 24 hr 05/22/21 05/22/21 05/22/21 11:04 12:50 16:09 Sodium 135 Potassium 5.6 H Chloride 106 Carbon Dioxide 20 L Anion Gap 15 BUN 51 H Creatinine 3.41 H Estim Creat Clear Calc 25.3 Estimated GFR 19 POC Glucose 229 H 150 H Random Glucose 299 H D Calcium 8.2 L D 05/22/21 05/22/21 05/23/21 19:41 23:51 06:11 Sodium 137 Potassium 5.8 H Chloride 107 Carbon Dioxide 21 L Anion Gap 15 BUN 54 H Creatinine 3.42 H Estim Creat Clear Calc 25.2 Estimated GFR 19 POC Glucose 205 H 256 H Random Glucose 201 H Calcium 8.8 D 05/23/21 07:24 Sodium Potassium Chloride Carbon Dioxide Anion Gap BUN Creatinine Estim Creat Clear Calc Estimated GFR POC Glucose 174 H Random Glucose Calcium Microbiology Microbiology Results: Microbiology 05/11/21 14:41 Blood - Venous Blood Culture - Final Corynebacterium species 05/11/21 15:36 Blood - Venous Blood Culture - Final No growth after 5 days. 05/11/21 14:41 Foot Right Gram Stain - Final 05/11/21 14:41 Foot Right Routine Culture - Final Staphylococcus aureus Strep agalactiae (Grp B) Procedures Date of Service Date of Service: 05/23/21 Assessment & Plan Assessment and plan (1) VANESSA (acute kidney injury): Status: Acute (2) Hyperkalemia: Status: Acute (3) CKD (chronic kidney disease) stage 3, GFR 30-59 ml/min: Status: Acute Assessment and Plan: VANESSA due to acute tubular injury kidney US negative for obstruction normal complement level normal serum immunofixation underlying CKD baseline Scr ~ 1.5-2 mg/dl BP better today REC sodium zirconium as needed may need kidney biopsy if no recovery follow kidney function and electrolytes Time Spent With Patient Time: Total time spent is greater than 50% in coordination of care (as documented) at patient's floor/unit and/or counseling patient: Progress Note: Quality Stroke Does the patient have a stroke diagnosis?: No
[2021-05-23] MEDS: Sodium Polystyrene Sulfon/Sorb 15 GM/60 ML ORAL.SUSP 30 GM PO (10:23)
[2021-05-23] MEDS: Sodium Zirconium Cyclosilicate 5 GM POWD.PACK PO (10:24)
[2021-05-23 11:39] VITALS: BP 137/66; PULSE 80; RESP 18; TEMP 36.1; O2SAT 100
[2021-05-23 12:05] LABS: Glucose, Whole Blood 212 mg/dL (60-115)
--- NOTE | 2021-05-23 12:19 | HO.PM.IMPN ---
Subjective Subjective Date of Service: 05/23/21 Interval History: the patient was seen and evaluated this morning Laying in bed, feels comfortable Potassium of 5.8 this morning Denies any fever, chills or shortness of breath No reported other overnight events. Systemic review: No fever, chills or weakness No chest pain, palpitation No shortness of breath or coughing No abdominal pain, nausea or vomiting No urinary symptoms foot wound Physical Exam Vital Signs: Vital Signs: Last Vital Signs Temp 96.9 F 05/23/21 11:39 Pulse 80 05/23/21 11:39 Resp 18 05/23/21 11:39 BP 137/66 05/23/21 11:39 Pulse Ox 100 05/23/21 11:39 BMI result Body Mass Index 34.1 Const: Other: Constitutional : Alert, oriented, not in distress Neck : Normal inspection, Supple Cardiovascular : RRR, S1 S2, no lower extremity edema Respiratory : Good bilateral air entry, no crackles, wheezes or rhonchi Gastrointestinal: soft, lax, Normal bowel sounds, Non tender Skin : Warm, Dry, foot wound covered with dressing with no drainage or bleeding noticed Neurological : Alert & oriented x3, No focal deficit Objective Data Active Medications Acetaminophen (Acetaminophen 325 Mg Tablet) 650 mg PO Q6H PRN PRN Reason: Pain, Mild (Pain Scale 1-3) Last Admin: 05/18/21 21:07 Dose: 650 mg Documented by: JENNIFER Dextrose (Dextrose 50 % 25 Gm/50 Ml Vial) 25 gm IVPUSH Q15M PRN; Protocol PRN Reason: per Hypoglycemia Standing Ord. Gabapentin (Gabapentin 300 Mg Capsule) 300 mg PO TID [facility] Last Admin: 05/23/21 07:47 Dose: 300 mg Documented by: LULY Glucose (Glucose Gel 15 Gm Gel..Gram.) 15 gm PO Q15M PRN; Protocol PRN Reason: per Hypoglycemia Standing Ord. Heparin Sodium (Porcine) (Heparin Sodium,Porcine 5,000 Unit/Ml Vial) 5,000 unit SUBCUT Q12H [facility] Last Admin: 05/23/21 05:38 Dose: 5,000 unit Documented by: APOORVA Piperacillin Sod/Tazobactam (Sod 2.25 gm/ Sodium Chloride) 50 mls @ 100 mls/hr IV Q8H [facility] Last Infusion: 05/23/21 10:53 Dose: 0 mls/hr Documented by: LULY Insulin Human Lispro (Insulin Lispro 100 Unit/Ml 3 Ml Vial) 0 unit SUBCUT QIDACHS [facility]; Protocol Last Admin: 05/23/21 11:48 Dose: 2 unit Documented by: LULY Ondansetron HCl (Ondansetron Hcl 4 Mg/2 Ml Vial) 4 mg IVPUSH Q8H PRN PRN Reason: Nausea and Vomiting Pharmacy Consult (Consult Rx Perform Med Rec) 1 each MISCELLANE ONCE PRN PRN Reason: Consult order Sodium Chloride (0.9 % Sodium Chloride Flush 3 Ml Syringe) 3 ml IVFLUSH QSHIFT [facility] Last Admin: 05/23/21 07:48 Dose: 3 ml Documented by: LULY Sodium Zirconium Cyclosilicate (Sodium Zirconium Cyclosilicate 5 Gm Powd.Pack) 5 gm PO DAILY [facility] Last Admin: 05/23/21 10:24 Dose: 5 gm Documented by: LULY Labs CBC & Chem 7: 05/21/21 05:17 05/23/21 06:11 Labs: Laboratory Results - last 24 hr 05/22/21 05/22/21 05/22/21 12:50 16:09 19:41 Anion Gap 15 Estim Creat Clear Calc 25.3 Estimated GFR 19 POC Glucose 150 H 205 H Random Glucose 299 H D Calcium 8.2 L D 05/22/21 05/23/21 05/23/21 23:51 06:11 07:24 Anion Gap 15 Estim Creat Clear Calc 25.2 Estimated GFR 19 POC Glucose 256 H 174 H Random Glucose 201 H Calcium 8.8 D 05/23/21 11:36 Anion Gap Estim Creat Clear Calc Estimated GFR POC Glucose 212 H Random Glucose Calcium Assessment and Plan (1) Hyperkalemia: Status: Acute (2) Osteomyelitis: Status: Acute (3) Pathological fracture of foot: Status: Acute (4) CKD (chronic kidney disease) stage 3, GFR 30-59 ml/min: Status: Acute Assessment and Plan: 56 year old man admitted with osteomyelitis and pathological fracture to right foot. Previous diagnostic imaging studies did not show osteomyelitis. States was seen at [facility] earlier this week by Podiatry; was told he would need surgery in July to remove the infected bone. Awaiting placement. Acute osteomyelitis With pathological fracture of 2nd metatarsal id input appreciated Continue Zosyn (day 11), to be discharged on ertapenem per ID for total of 6 weeks hyperkalemia Potassium of 5.8 Given Lokelma and Kayexalate Start Lokelma 5 mg daily To repeat BMP Type II DM Sliding scale, ADA diet Usually on Insulin Pump at home...will D/C while inoatient. Can reume when D/C NEEMA. CPAP at HS CKD 3 Continues to improve...conservatives at this time Low K+ diet DVT prophylaxis with heparin Full code Quality Stroke Does the patient have a stroke diagnosis?: No VTE Prior VTE?: No VTE Risk Level:: Medical - moderate - high VTE Device Contraindication: Treatment Not Indicated VTE Drug Contraindication: N/A - Med Ordered
[2021-05-23 16:00] VITALS: BP 160/76; PULSE 76; RESP 18; TEMP 36.2; O2SAT 100
[2021-05-23 17:00] LABS: Glucose, Whole Blood 221 mg/dL (60-115)
[2021-05-23 19:47] VITALS: BP 136/64; PULSE 80; RESP 18; TEMP 36.2; O2SAT 98
[2021-05-23 20:20] LABS: Glucose, Whole Blood 282 mg/dL (60-115)
[2021-05-23 23:49] VITALS: BP 121/65; PULSE 69; RESP 19; TEMP 36.3; O2SAT 98
[2021-05-24] MEDS: Piperacillin Sodium/Tazobactam 2.25 GM in 0.9 % Sodium Chloride 50 ML IV ×3 (00:22→15:54)
[2021-05-24 03:53] VITALS: RESP 19
[2021-05-24] MEDS: Heparin Sodium,Porcine 5,000 UNIT/ML VIAL 5000 UNIT SUBCUT ×2 (06:04→16:55)
[2021-05-24 06:28] LABS: Anion Gap 15 (12-20); Blood Urea Nitrogen 55 mg/dL (9-16); Calcium 8.3 mg/dL (8.4-10.2); Carbon Dioxide 22 mmol/L (22-29); Chloride 105 mmol/L (96-108); Creatinine Clr Calc Pharmacy 25.6; Estimated Glomerular Filt Rate 19; Glucose Random 218 mg/dL (60-115); Potassium 5.5 mmol/L (3.3-5.1); Sodium 136 mmol/L (135-145)
[2021-05-24 07:37] VITALS: BP 133/63; PULSE 70; RESP 18; TEMP 36.9; O2SAT 97
[2021-05-24 07:44] LABS: Glucose, Whole Blood 190 mg/dL (60-115)
[2021-05-24] MEDS: Gabapentin 300 MG CAPSULE PO ×3 (08:02→21:45)
[2021-05-24] MEDS: Sodium Zirconium Cyclosilicate 5 GM POWD.PACK PO (08:02)
[2021-05-24] MEDS: 0.9 % Sodium Chloride Flush 3 ML SYRINGE IVFLUSH ×3 (08:03→21:45)
[2021-05-24] MEDS: Insulin Lispro 100 UNIT/ML 3 ML VIAL SUBCUT ×4 (08:03→21:45)
[2021-05-24] MEDS: Acetaminophen 325 MG TABLET 650 MG PO ×2 (08:22→21:45)
[2021-05-24] MEDS: Lactulose 20 GM/30 ML SOLUTION PO (09:23)
--- NOTE | 2021-05-24 10:23 | PM.PNNEP ---
Subjective Subjective Date of Service: 05/24/21 Principal diagnosis: sara Interval history: the patient was seen and evaluated this morning Laying in bed, feels comfortable Potassium of 5.8 this morning Denies any fever, chills or shortness of breath No reported other overnight events. Systemic review: No fever, chills or weakness No chest pain, palpitation No shortness of breath or coughing No abdominal pain, nausea or vomiting No urinary symptoms foot wound Physical Exam Vital Signs: Vital Signs: Last Vital Signs Temp 98.5 F 05/24/21 07:37 Pulse 70 05/24/21 07:37 Resp 18 05/24/21 07:37 BP 133/63 05/24/21 07:37 Pulse Ox 97 05/24/21 07:37 BMI result Body Mass Index 34.1 Const: Other: Constitutional : Alert, oriented, not in distress Neck : Normal inspection, Supple Cardiovascular : RRR, S1 S2, no lower extremity edema Respiratory : Good bilateral air entry, no crackles, wheezes or rhonchi Gastrointestinal: soft, lax, Normal bowel sounds, Non tender Skin : Warm, Dry, foot wound covered with dressing with no drainage or bleeding noticed Neurological : Alert & oriented x3, No focal deficit General: cooperative, comfortable, no acute distress and alert Nutritional Appearance: obese Orientation/consciousness: patient oriented x3 HENMT: Head: Yes normal to inspection, Yes normocephalic and Yes atraumatic Eyes: EOM: EOMs intact bilaterally Neck: Neck: Yes no lymphadenopathy and Yes supple Resp: Other: Clear to auscultation bilaterally no rales rhonchi wheezes Effort & Inspection: normal respiratory effort Auscultation: clear to auscultation bilaterally and diminished lung sounds Cardio: Other: No S4; S1-S2; no S3 murmurs Os-Pankaj Rate: regular rate Rhythm: regular rhythm Heart sounds: S1 normal heart sound present and S2 normal heart sound present GI: Other: soft nontender nondistended with normoactive bowel sounds Palpation (GI): Soft to palpation, nontender and no guarding Skin: General skin exam: no rashes or lesions noted Neuro: General: patient oriented x3 and moves all extremities Extrem: Other: Right foot with tight Robert wrap . General: No edema Objective Data Labs CBC & Chem 7: 05/21/21 05:17 05/24/21 05:21 Labs: Laboratory Results - last 24 hr 05/23/21 05/23/21 05/23/21 11:36 16:47 19:49 Sodium Potassium Chloride Carbon Dioxide Anion Gap BUN Creatinine Estim Creat Clear Calc Estimated GFR POC Glucose 212 H 221 H 282 H Random Glucose Calcium 05/24/21 05/24/21 05:21 07:36 Sodium 136 Potassium 5.5 H Chloride 105 Carbon Dioxide 22 Anion Gap 15 BUN 55 H Creatinine 3.37 H Estim Creat Clear Calc 25.6 Estimated GFR 19 POC Glucose 190 H Random Glucose 218 H Calcium 8.3 L Microbiology Microbiology Results: Microbiology 05/11/21 14:41 Blood - Venous Blood Culture - Final Corynebacterium species 05/11/21 15:36 Blood - Venous Blood Culture - Final No growth after 5 days. 05/11/21 14:41 Foot Right Gram Stain - Final 05/11/21 14:41 Foot Right Routine Culture - Final Staphylococcus aureus Strep agalactiae (Grp B) Procedures Date of Service Date of Service: 05/24/21 Assessment & Plan Assessment and plan (1) Hyperkalemia: Status: Acute (2) Osteomyelitis: Status: Acute (3) Pathological fracture of foot: Status: Acute (4) CKD (chronic kidney disease) stage 3, GFR 30-59 ml/min: Status: Acute Assessment and Plan: 56 year old man admitted with osteomyelitis and pathological fracture to right foot. Previous diagnostic imaging studies did not show osteomyelitis. States was seen at [facility] earlier this week by Podiatry; was told he would need surgery in July to remove the infected bone. Awaiting placement. Acute osteomyelitis With pathological fracture of 2nd metatarsal id input appreciated Continue Zosyn (day 11), to be discharged on ertapenem per ID for total of 6 weeks hyperkalemia Potassium of 5.8 increase Lokelma 10 mg daily To repeat BMP Type II DM Sliding scale, ADA diet Usually on Insulin Pump at home...will D/C while inpatient. Can resume when D/C NEEMA. CPAP at HS CKD 3 Continues to improve...conservatives at this time Low K+ diet procrit and iron for anemia DVT prophylaxis with heparin Full code Time Spent With Patient Time: Total time spent is greater than 50% in coordination of care (as documented) at patient's floor/unit and/or counseling patient: Progress Note: Quality Stroke Does the patient have a stroke diagnosis?: No
[2021-05-24 11:20] LABS: Iron 71 mcg/dL (45-160); Percent Iron Saturation 27 % (15-50); Total Iron Binding Capacity 266 mcg/dL (228-428); Unsaturated Iron Binding 195 ug/dL
[2021-05-24 11:39] VITALS: BP 154/72; PULSE 67; RESP 18; TEMP 36.8; O2SAT 94
[2021-05-24 11:40] LABS: Ferritin 186 ng/mL (20-250)
[2021-05-24] MEDS: Sodium Zirconium Cyclosilicate 10 GM POWD.PACK PO (11:46)
[2021-05-24 12:07] LABS: Glucose, Whole Blood 235 mg/dL (60-115)
--- NOTE | 2021-05-24 14:38 | HO.PM.IMPN ---
Subjective Subjective Date of Service: 05/24/21 Interval History: no acute events overnight Review of Systems denies chest pain Denies shortness of breath Denies nausea vomiting diarrhea Physical Exam Vital Signs: Vital Signs: Last Vital Signs Temp 98.3 F 05/24/21 11:39 Pulse 67 05/24/21 11:39 Resp 18 05/24/21 11:39 BP 154/72 H 05/24/21 11:39 Pulse Ox 94 05/24/21 11:39 BMI result Body Mass Index 34.1 Const: Other: No acute distress Resp: Other: Clear to auscultation bilaterally no rales rhonchi wheezes Cardio: Other: No S4; S1-S2; no S3 murmurs Os-Pankaj GI: Other: soft nontender nondistended with normoactive bowel sounds Extrem: Other: Right foot with tight Robert wrap . Objective Data Active Medications Acetaminophen (Acetaminophen 325 Mg Tablet) 650 mg PO Q6H PRN PRN Reason: Pain, Mild (Pain Scale 1-3) Last Admin: 05/24/21 08:22 Dose: 650 mg Documented by: LULY Dextrose (Dextrose 50 % 25 Gm/50 Ml Vial) 25 gm IVPUSH Q15M PRN; Protocol PRN Reason: per Hypoglycemia Standing Ord. Gabapentin (Gabapentin 300 Mg Capsule) 300 mg PO TID [facility] Last Admin: 05/24/21 08:02 Dose: 300 mg Documented by: LULY Glucose (Glucose Gel 15 Gm Gel..Gram.) 15 gm PO Q15M PRN; Protocol PRN Reason: per Hypoglycemia Standing Ord. Heparin Sodium (Porcine) (Heparin Sodium,Porcine 5,000 Unit/Ml Vial) 5,000 unit SUBCUT Q12H [facility] Last Admin: 05/24/21 06:04 Dose: 5,000 unit Documented by: APOORVA Piperacillin Sod/Tazobactam (Sod 2.25 gm/ Sodium Chloride) 50 mls @ 100 mls/hr IV Q8H [facility] Last Infusion: 05/24/21 09:19 Dose: 0 mls/hr Documented by: LULY Insulin Human Lispro (Insulin Lispro 100 Unit/Ml 3 Ml Vial) 0 unit SUBCUT QIDACHS [facility]; Protocol Last Admin: 05/24/21 11:49 Dose: 4 unit Documented by: LULY Ondansetron HCl (Ondansetron Hcl 4 Mg/2 Ml Vial) 4 mg IVPUSH Q8H PRN PRN Reason: Nausea and Vomiting Pharmacy Consult (Consult Rx Perform Med Rec) 1 each MISCELLANE ONCE PRN PRN Reason: Consult order Sodium Chloride (0.9 % Sodium Chloride Flush 3 Ml Syringe) 3 ml IVFLUSH QSHIFT [facility] Last Admin: 05/24/21 08:03 Dose: 3 ml Documented by: LULY Sodium Zirconium Cyclosilicate (Sodium Zirconium Cyclosilicate 10 Gm Powd.Pack) 10 gm PO DAILY [facility] Last Admin: 05/24/21 11:46 Dose: 10 gm Documented by: LULY Labs CBC & Chem 7: 05/21/21 05:17 05/24/21 05:21 Labs: Laboratory Results - last 24 hr 05/23/21 05/23/21 05/24/21 16:47 19:49 05:21 Anion Gap 15 Estim Creat Clear Calc 25.6 Estimated GFR 19 POC Glucose 221 H 282 H Random Glucose 218 H Calcium 8.3 L Iron TIBC % Saturation Unsat Iron Binding Ferritin 05/24/21 05/24/21 05/24/21 07:36 10:48 11:39 Anion Gap Estim Creat Clear Calc Estimated GFR POC Glucose 190 H 235 H Random Glucose Calcium Iron 71 TIBC 266 % Saturation 27 Unsat Iron Binding 195 Ferritin 186 Assessment and Plan (1) Osteomyelitis: Status: Acute (2) CKD (chronic kidney disease) stage 3, GFR 30-59 ml/min: Status: Acute (3) Hyperkalemia: Status: Acute Assessment and Plan: 56 year old man admitted with osteomyelitis and pathological fracture to right foot. Previous diagnostic imaging studies did not show osteomyelitis. States was seen at [facility] earlier this week by Podiatry; was told he would need surgery in July to remove the infected bone. Awaiting placement. 1.Acute osteomyelitis With pathological fracture of 2nd metatarsal Continue Zosyn (day 11)...6 week total...switch to ertapenim upon DC 2.Type II DM Sliding scale, ADA diet Usually on Insulin Pump at home...will D/C while inoatient. Can reume when D/C 3.NEEMA. CPAP at HS 4.CKD 3 Continues to improve...conservatives at this time Low K+ diet Lokelma 10mg daily. Follow renals/divalents DVT prophylaxis with heparin Full code Quality Stroke Does the patient have a stroke diagnosis?: No VTE Prior VTE?: No VTE Risk Level:: Medical - moderate - high VTE Device Contraindication: Treatment Not Indicated VTE Drug Contraindication: N/A - Med Ordered
[2021-05-24 16:21] VITALS: BP 128/61; PULSE 73; RESP 16; TEMP 36.7; O2SAT 97
[2021-05-24 16:41] LABS: Glucose, Whole Blood 185 mg/dL (60-115)
[2021-05-24 19:58] VITALS: BP 157/71; PULSE 83; RESP 17; TEMP 36.1; O2SAT 98
[2021-05-24 20:10] LABS: Glucose, Whole Blood 243 mg/dL (60-115)
[2021-05-24] MEDS: polyethylene glycoL 3350 17 GM POWD.PACK PO (22:41)
[2021-05-24] MEDS: Milk of Magnesia 30 ML ORAL.SUSP 15 ML PO (22:41)
[2021-05-24] MEDS: traZODone HCL 50 MG TABLET 150 MG PO (22:41)
[2021-05-25] VITALS (7 sets, daily range): BP systolic 117–157; BP diastolic 60–71; PULSE 70–84; RESP 17–20; TEMP 36.1–36.8; O2SAT 96–99
[2021-05-25] MEDS: Piperacillin Sodium/Tazobactam 2.25 GM in 0.9 % Sodium Chloride 50 ML IV ×4 (00:16→23:31)
[2021-05-25] MEDS: Heparin Sodium,Porcine 5,000 UNIT/ML VIAL 5000 UNIT SUBCUT ×2 (05:37→18:34)
--- NOTE | 2021-05-25 05:50 | PC.NURSE ---
Pt c/o not having a BM for 4 days, ABD SNT, +BS, passing little gas as claimed, pt also requesting for some sleep med ,he said he uses Trazodone 150 mg po at home, Dr. Francois was notifed, gave pt MOM and Miralax, and Trazodone 150 mg po, pt slept fairly, pt claimed still no BM made.
[2021-05-25 06:11] LABS: MANUAL DIFF FLAG NO
[2021-05-25 06:14] LABS: Basophils Absolute Auto 0.1 X10*3/uL (0.0-0.2); Basophils Percent Auto 0.6 % (0-2); Eosinophils Absolute Auto 0.4 X10*3/uL (0.0-0.4); Eosinophils Percent Auto 3.3 % (0-4); Hematocrit 29.7 % (42.0-52.0); Hemoglobin 9.5 g/dl (14.0-18.0); Imm Gran Abs Auto 0.05 X10*3/uL (0.00-0.03); Imm Gran Pct Auto 0.4 % (0.0-0.4); Lymphocytes Absolute Auto 2.8 X10*3/uL (1.2-4.9); Lymphocytes Percent Auto 22.9 % (20-40); Mean Corpuscular Volume 87.6 fL (80.0-98.0); Mean Platelet Volume 9.1 fL (9.4-12.4); Monocytes Percent Auto 8.5 % (2-11); Neutrophils Absolute Auto 7.9 x10*3/uL (2.0-8.3); Neutrophils Percent Auto 64.3 % (45-73); Platelet Count 519 X10*3/uL (160-400); Red Blood Count 3.39 X10*6/uL (4.60-5.80); Red Cell Distribution Width 14.7 % (11.0-16.0); White Blood Count 12.2 X10*3/uL (4.8-10.8)
[2021-05-25 06:57] LABS: Alanine Aminotransferase 274 U/L (0-40); Albumin Level 3.1 g/dL (3.5-5.0); Alkaline Phosphatase 77 U/L (39-117); Anion Gap 14 (12-20); Aspartate Amino Transferase 124 U/L (5-37); Bilirubin Total 0.4 mg/dL (0.0-1.0); Blood Urea Nitrogen 67 mg/dL (9-16); Calcium 8.6 mg/dL (8.4-10.2); Carbon Dioxide 26 mmol/L (22-29); Chloride 104 mmol/L (96-108); Creatinine Clr Calc Pharmacy 23.6; Estimated Glomerular Filt Rate 17; Glucose Fasting 196 mg/dL (60-99); Potassium 5.6 mmol/L (3.3-5.1); Sodium 138 mmol/L (135-145); Total Protein 7.6 g/dL (6.5-8.0)
[2021-05-25 07:53] LABS: Glucose, Whole Blood 242 mg/dL (60-115)
[2021-05-25] MEDS: Insulin Lispro 100 UNIT/ML 3 ML VIAL SUBCUT ×4 (07:58→21:54)
[2021-05-25] MEDS: Gabapentin 300 MG CAPSULE PO ×3 (07:59→21:54)
[2021-05-25] MEDS: Sodium Zirconium Cyclosilicate 10 GM POWD.PACK PO (07:59)
[2021-05-25] MEDS: polyethylene glycoL 3350 17 GM POWD.PACK PO (07:59)
[2021-05-25] MEDS: 0.9 % Sodium Chloride Flush 3 ML SYRINGE IVFLUSH ×2 (08:07→23:32)
[2021-05-25 11:29] LABS: Glucose, Whole Blood 264 mg/dL (60-115)
--- NOTE | 2021-05-25 14:35 | HO.PM.IMPN ---
Subjective Subjective Date of Service: 05/25/21 Interval History: No acute issues overnight Review of Systems Denies chest pain Denies shortness of breath Denies nausea vomiting diarrhea Physical Exam Vital Signs: Vital Signs: Last Vital Signs Temp 97.0 F 05/25/21 11:51 Pulse 83 05/25/21 11:51 Resp 20 05/25/21 11:51 BP 145/69 H 05/25/21 11:51 Pulse Ox 96 05/25/21 11:51 BMI result Body Mass Index 34.1 Const: Other: No acute distress Resp: Other: Clear to auscultation bilaterally no rales rhonchi wheezes Cardio: Other: No S4; S1-S2; no S3 murmurs Os-Pankaj GI: Other: soft nontender nondistended with normoactive bowel sounds Extrem: Other: Right foot with tight Robert wrap . Objective Data Active Medications Acetaminophen (Acetaminophen 325 Mg Tablet) 650 mg PO Q6H PRN PRN Reason: Pain, Mild (Pain Scale 1-3) Last Admin: 05/24/21 21:45 Dose: 650 mg Documented by: AGUSTIN Dextrose (Dextrose 50 % 25 Gm/50 Ml Vial) 25 gm IVPUSH Q15M PRN; Protocol PRN Reason: per Hypoglycemia Standing Ord. Gabapentin (Gabapentin 300 Mg Capsule) 300 mg PO TID [facility] Last Admin: 05/25/21 07:59 Dose: 300 mg Documented by: MONIQUE Glucose (Glucose Gel 15 Gm Gel..Gram.) 15 gm PO Q15M PRN; Protocol PRN Reason: per Hypoglycemia Standing Ord. Heparin Sodium (Porcine) (Heparin Sodium,Porcine 5,000 Unit/Ml Vial) 5,000 unit SUBCUT Q12H [facility] Last Admin: 05/25/21 05:37 Dose: 5,000 unit Documented by: AGUSTIN Piperacillin Sod/Tazobactam (Sod 2.25 gm/ Sodium Chloride) 50 mls @ 100 mls/hr IV Q8H [facility] Last Infusion: 05/25/21 08:39 Dose: 0 mls/hr Documented by: MONIQUE Insulin Human Lispro (Insulin Lispro 100 Unit/Ml 3 Ml Vial) 0 unit SUBCUT QIDACHS [facility]; Protocol Last Admin: 05/25/21 11:55 Dose: 6 unit Documented by: MONIQUE Ondansetron HCl (Ondansetron Hcl 4 Mg/2 Ml Vial) 4 mg IVPUSH Q8H PRN PRN Reason: Nausea and Vomiting Pharmacy Consult (Consult Rx Perform Med Rec) 1 each MISCELLANE ONCE PRN PRN Reason: Consult order Polyethylene Glycol (Polyethylene Glycol 3350 17 Gm Powd.Pack) 17 gm PO DAILY [facility] Last Admin: 05/25/21 07:59 Dose: 17 gm Documented by: MONIQUE Sodium Chloride (0.9 % Sodium Chloride Flush 3 Ml Syringe) 3 ml IVFLUSH QSHIFT [facility] Last Admin: 05/25/21 08:07 Dose: 3 ml Documented by: MONIQUE Sodium Zirconium Cyclosilicate (Sodium Zirconium Cyclosilicate 10 Gm Powd.Pack) 10 gm PO DAILY [facility] Last Admin: 05/25/21 07:59 Dose: 10 gm Documented by: MONIQUE Trazodone HCl (Trazodone Hcl 50 Mg Tablet) 150 mg PO BEDTIME [facility] Last Admin: 05/24/21 22:41 Dose: 150 mg Documented by: AGUSTIN Labs CBC & Chem 7: 05/25/21 05:34 05/25/21 05:34 Labs: Laboratory Results - last 24 hr 05/11/21 05/12/21 05/13/21 14:19 06:50 06:13 MCV MCH MCHC RDW Plt Count MPV Immature Gran % (Auto) Neut % (Auto) Lymph % (Auto) [place] % (Auto) Eos % (Auto) Baso % (Auto) Lymph # (Auto) [place] # (Auto) Eos # (Auto) Baso # (Auto) Abs Immat Gran (auto) Absolute Neuts (auto) Absolute Nucleated RBC Nucleated RBC % (auto) Anion Gap Creatinine 1.59 H 1.48 H 1.52 H Estim Creat Clear Calc Estimated GFR POC Glucose Fasting Glucose Calcium Total Bilirubin AST ALT Alkaline Phosphatase Total Protein Albumin 05/14/21 05/15/21 05/16/21 05:19 05:44 05:29 MCV MCH MCHC RDW Plt Count MPV Immature Gran % (Auto) Neut % (Auto) Lymph % (Auto) [place] % (Auto) Eos % (Auto) Baso % (Auto) Lymph # (Auto) [place] # (Auto) Eos # (Auto) Baso # (Auto) Abs Immat Gran (auto) Absolute Neuts (auto) Absolute Nucleated RBC Nucleated RBC % (auto) Anion Gap Creatinine 1.72 H 3.23 H 3.76 H Estim Creat Clear Calc Estimated GFR POC Glucose Fasting Glucose Calcium Total Bilirubin AST ALT Alkaline Phosphatase Total Protein Albumin 05/17/21 05/18/21 05/19/21 12:42 05:33 05:19 MCV MCH MCHC RDW Plt Count MPV Immature Gran % (Auto) Neut % (Auto) Lymph % (Auto) [place] % (Auto) Eos % (Auto) Baso % (Auto) Lymph # (Auto) [place] # (Auto) Eos # (Auto) Baso # (Auto) Abs Immat Gran (auto) Absolute Neuts (auto) Absolute Nucleated RBC Nucleated RBC % (auto) Anion Gap Creatinine 3.60 H 3.50 H 3.38 H Estim Creat Clear Calc Estimated GFR POC Glucose Fasting Glucose Calcium Total Bilirubin AST ALT Alkaline Phosphatase Total Protein Albumin 05/20/21 05/22/21 05/22/21 05:25 06:27 12:50 MCV MCH MCHC RDW Plt Count MPV Immature Gran % (Auto) Neut % (Auto) Lymph % (Auto) [place] % (Auto) Eos % (Auto) Baso % (Auto) Lymph # (Auto) [place] # (Auto) Eos # (Auto) Baso # (Auto) Abs Immat Gran (auto) Absolute Neuts (auto) Absolute Nucleated RBC Nucleated RBC % (auto) Anion Gap Creatinine 3.29 H 3.18 H 3.41 H Estim Creat Clear Calc Estimated GFR POC Glucose Fasting Glucose Calcium Total Bilirubin AST ALT Alkaline Phosphatase Total Protein Albumin 05/23/21 05/24/21 05/24/21 06:11 05:21 16:25 MCV MCH MCHC RDW Plt Count MPV Immature Gran % (Auto) Neut % (Auto) Lymph % (Auto) [place] % (Auto) Eos % (Auto) Baso % (Auto) Lymph # (Auto) [place] # (Auto) Eos # (Auto) Baso # (Auto) Abs Immat Gran (auto) Absolute Neuts (auto) Absolute Nucleated RBC Nucleated RBC % (auto) Anion Gap Creatinine 3.42 H 3.37 H Estim Creat Clear Calc Estimated GFR POC Glucose 185 H Fasting Glucose Calcium Total Bilirubin AST ALT Alkaline Phosphatase Total Protein Albumin 05/24/21 05/25/21 05/25/21 20:02 05:34 05:34 MCV 87.6 MCH 28.0 MCHC 32.0 RDW 14.7 Plt Count 519 H D MPV 9.1 L Immature Gran % (Auto) 0.4 Neut % (Auto) 64.3 Lymph % (Auto) 22.9 [place] % (Auto) 8.5 Eos % (Auto) 3.3 Baso % (Auto) 0.6 Lymph # (Auto) 2.8 [place] # (Auto) 1.0 Eos # (Auto) 0.4 Baso # (Auto) 0.1 Abs Immat Gran (auto) 0.05 H Absolute Neuts (auto) 7.9 Absolute Nucleated RBC 0.000 Nucleated RBC % (auto) 0.0 Anion Gap 14 Creatinine 3.66 H Estim Creat Clear Calc 23.6 Estimated GFR 17 POC Glucose 243 H Fasting Glucose 196 H Calcium 8.6 Total Bilirubin 0.4 AST 124 H ALT 274 H Alkaline Phosphatase 77 Total Protein 7.6 Albumin 3.1 L 05/25/21 05/25/21 07:43 10:40 MCV MCH MCHC RDW Plt Count MPV Immature Gran % (Auto) Neut % (Auto) Lymph % (Auto) [place] % (Auto) Eos % (Auto) Baso % (Auto) Lymph # (Auto) [place] # (Auto) Eos # (Auto) Baso # (Auto) Abs Immat Gran (auto) Absolute Neuts (auto) Absolute Nucleated RBC Nucleated RBC % (auto) Anion Gap Creatinine Estim Creat Clear Calc Estimated GFR POC Glucose 242 H 264 H Fasting Glucose Calcium Total Bilirubin AST ALT Alkaline Phosphatase Total Protein Albumin Assessment and Plan (1) CKD (chronic kidney disease) stage 3, GFR 30-59 ml/min: Status: Acute (2) Osteomyelitis: Status: Acute (3) Transaminitis: Status: Acute Assessment and Plan: 56 year old man admitted with osteomyelitis and pathological fracture to right foot. Previous diagnostic imaging studies did not show osteomyelitis. States was seen at [facility] earlier this week by Podiatry; was told he would need surgery in July to remove the infected bone. Awaiting placement. 1.Acute osteomyelitis With pathological fracture of 2nd metatarsal Continue Zosyn (day 12)...6 week total...switch to ertapenim upon DC 2.Type II DM Sliding scale, ADA diet Usually on Insulin Pump at home...will D/C while inoatient. Can reume when D/C 3.NEEMA. CPAP at HS 4.CKD 3 Continues to improve...conservatives at this time Low K+ diet Lokelma 10mg daily. Follow renals/divalents 5. Transaminitis Will book ultrasound and consult GI. Likely multifactorial; antibiotics, infection in backdrop of fatty liver. Follow-up clinically DVT prophylaxis with heparin Full code Quality Stroke Does the patient have a stroke diagnosis?: No VTE Prior VTE?: No VTE Risk Level:: Medical - moderate - high VTE Device Contraindication: Treatment Not Indicated VTE Drug Contraindication: N/A - Med Ordered
--- NOTE | 2021-05-25 16:14 | MHC.CM.PN ---
NURSE CHANGE DIRECTOR NOTE CASE DISCUSSED ON MULTIPLE DISCIP[LAINERY ROUNDS , STILL AWAITING REHAB FOR [facility] S[facility] IV ABX , [facility], [facility] AND [facility] FOLLOWING CASE MANAGEMENT TO CONTINUE TO FOLLOW
[2021-05-25 16:28] LABS: Glucose, Whole Blood 261 mg/dL (60-115)
--- NOTE | 2021-05-25 18:00 | PM.GICN ---
History of Present Illness Data of Consult Service Date: 05/25/21 Requesting physician: Jose Welch Primary Care Provider: Xochilt Singh MD HPI Reason for consult: abn LFT 56-year-old male w hx of obesity, CKD, NEEMA< DM, neuropathy, cholecystectomy, anurag en Y bypass, HTN who I am asked to see for assessment of abn LFT. Patient initially presented with chills and fever with increased discharge from a foot wound. Work up revealed a pathological fracture of 2nd metatarsal with changes of osteomyelitis. He has been commenced on zosyn and received vancomycin. He also has a hx of cocaine use and says his last use was 3 months ago. he denies alcohol use. He has no abdominal pain, no jaundice, no dark urine or pale stools, but does endorse constipation, denies abdominal pain, reports his foot is much improved. His AST/ALT were elevated on admission and been slowly creeping up, but bili and alk phos have been nml. He has been on zosyn for about 12 days now. eosinophil counts have been normal. Review of Systems Constitutional: Constitutional: Denies chills and Denies fever(s) Cardiovascular: Cardiovascular: Denies chest pain, Denies dyspnea and Denies dyspnea on exertion Respiratory: Respiratory: Denies cough, Denies dyspnea and Denies dyspnea on exertion Gastrointestinal: Gastrointestinal: Denies hematochezia and Denies change in bowel habits Genitourinary: Genitourinary: Denies hematuria and Denies difficulty urinating Musculoskeletal: Musculoskeletal: Denies back pain and Denies limited range of motion Neurologic: Denies focal weakness and Denies convulsions Psychiatric: Psychiatric: Denies depression and Denies mood swings [facility] Past Medical History Medical History CKD (chronic kidney disease) Diabetic polyneuropathy associated with type 2 diabetes mellitus Dyslipidemia 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 deficiency Moderate non-proliferative diabetic retinopathy Morbid obesity NEEMA on CPAP 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 Brother No problems noted. Son No problems noted. Daughter In good health Maternal Grandmother DM (diabetes mellitus) Stroke Family history: reviewed and not pertinent Surgical History Surgical History History of eye surgery History of Anurag-en-Y gastric bypass History of tonsillectomy and adenoidectomy Hx laparoscopic cholecystectomy S/P cataract surgery S/P debridement S/P tooth extraction Status post amputation of toe Social History Social History Household Members: None Housing: Apartment Do you presently have visiting nurse or other home services: Yes (daughter is TONGUE TRIMMER) Alcohol intake: never Patient Tobacco Use Status: Never used Tobacco e-Cigarette/Vaping Use: Never Used Second Hand Smoke Exposure: No Substance Use Type: Marijuana service: No Current occupational status: disabled Meds Allergies Allergy/AdvReac Type Severity Reaction Status Date / Time Sulfa (Sulfonamide Allergy Intermediate hives Verified 03/25/21 13:42 Antibiotics) [SULFA (SULFONAMIDE ANTIBIOTICS)] Active Medications: Current Medications Acetaminophen (Acetaminophen 325 Mg Tablet) 650 mg PO Q6H PRN PRN Reason: Pain, Mild (Pain Scale 1-3) Last Admin: 05/24/21 21:45 Dose: 650 mg Documented by: Dextrose (Dextrose 50 % 25 Gm/50 Ml Vial) 25 gm IVPUSH Q15M PRN; Protocol PRN Reason: per Hypoglycemia Standing Ord. Gabapentin (Gabapentin 300 Mg Capsule) 300 mg PO TID [facility] Last Admin: 05/25/21 16:42 Dose: 300 mg Documented by: Glucose (Glucose Gel 15 Gm Gel..Gram.) 15 gm PO Q15M PRN; Protocol PRN Reason: per Hypoglycemia Standing Ord. Heparin Sodium (Porcine) (Heparin Sodium,Porcine 5,000 Unit/Ml Vial) 5,000 unit SUBCUT Q12H [facility] Last Admin: 05/25/21 05:37 Dose: 5,000 unit Documented by: Piperacillin Sod/Tazobactam (Sod 2.25 gm/ Sodium Chloride) 50 mls @ 100 mls/hr IV Q8H [facility] Last Infusion: 05/25/21 17:51 Dose: Infused Documented by: Insulin Human Lispro (Insulin Lispro 100 Unit/Ml 3 Ml Vial) 0 unit SUBCUT QIDACHS [facility]; Protocol Last Admin: 05/25/21 16:41 Dose: 6 unit Documented by: Ondansetron HCl (Ondansetron Hcl 4 Mg/2 Ml Vial) 4 mg IVPUSH Q8H PRN PRN Reason: Nausea and Vomiting Pharmacy Consult (Consult Rx Perform Med Rec) 1 each MISCELLANE ONCE PRN PRN Reason: Consult order Polyethylene Glycol (Polyethylene Glycol 3350 17 Gm Powd.Pack) 17 gm PO DAILY [facility] Last Admin: 05/25/21 07:59 Dose: 17 gm Documented by: Sodium Chloride (0.9 % Sodium Chloride Flush 3 Ml Syringe) 3 ml IVFLUSH QSHIFT [facility] Last Admin: 05/25/21 17:40 Dose: Not Given Documented by: Sodium Zirconium Cyclosilicate (Sodium Zirconium Cyclosilicate 10 Gm Powd.Pack) 10 gm PO DAILY [facility] Last Admin: 05/25/21 07:59 Dose: 10 gm Documented by: Trazodone HCl (Trazodone Hcl 50 Mg Tablet) 150 mg PO BEDTIME [facility] Last Admin: 05/24/21 22:41 Dose: 150 mg Documented by: Home Medications Medication Instructions Recorded Confirmed Last Taken Type blood sugar diagnostic #10 ea 04/01/20 03/25/21 Unknown History insulin syringe-needle U-100 /2 04/21/21 Unknown History mL 31 gauge x 15/64 (BD Veo Insulin Syringe Ultra-Fine) dulaglutide 3 mg/0.5 mL 3 mg SUBCUT TU@1000 05/11/21 05/11/21 Unknown History subcutaneous pen injector (Trulicity) subcutaneous insulin pump (Omnipod 05/11/21 05/11/21 Unknown History Insulin Management) Physical Exam Vital Signs: Vital Signs: Last Vital Signs Temp 97.3 F 05/25/21 16:00 Pulse 79 05/25/21 16:00 Resp 18 05/25/21 16:00 BP 152/67 H 05/25/21 16:00 Pulse Ox 99 05/25/21 16:00 BMI result Body Mass Index 34.1 Const: Other: No acute distress General: cooperative, comfortable, no acute distress and alert Nutritional Appearance: obese Orientation/consciousness: patient oriented x3 HENMT: Head: Yes normal to inspection, Yes normocephalic and Yes atraumatic Eyes: General: appearance normal, both eyes and all related structures EOM: EOMs intact bilaterally Neck: Neck: Yes no lymphadenopathy and Yes supple Resp: Other: Clear to auscultation bilaterally no rales rhonchi wheezes Effort & Inspection: normal respiratory effort Auscultation: clear to auscultation bilaterally and diminished lung sounds Cardio: Rate: regular rate Rhythm: regular rhythm Heart sounds: S1 normal heart sound present and S2 normal heart sound present GI: Other: soft nontender nondistended with normoactive bowel sounds Palpation (GI): Soft to palpation, nontender and no guarding Skin: General skin exam: no rashes or lesions noted Neuro: General: patient oriented x3 and moves all extremities Extrem: Other: Right foot with tight Robert wrap . General: No edema Psych: Appearance: grossly normal Results Labs CBC & Chem 7: 05/25/21 05:34 05/25/21 05:34 Labs: Short CBC 05/25/21 Range/Units 05:34 WBC 12.2 H (4.8-10.8) X10*3/uL Hgb 9.5 L (14.0-18.0) g/dl Hct 29.7 L (42.0-52.0) % Plt Count 519 H D (160-400) X10*3/uL BMP 05/25/21 05:34 Sodium 138 Potassium 5.6 H Chloride 104 Carbon Dioxide 26 BUN 67 H Creatinine 3.66 H Calcium 8.6 Liver Function 05/25/21 Range/Units 05:34 Total Bilirubin 0.4 (0.0-1.0) mg/dL AST 124 H (5-37) U/L ALT 274 H (0-40) U/L Alkaline Phosphatase 77 (39-117) U/L Albumin 3.1 L (3.5-5.0) g/dL Microbiology Microbiology Results: Microbiology 05/11/21 14:41 Blood - Venous Blood Culture - Final Corynebacterium species 05/11/21 15:36 Blood - Venous Blood Culture - Final No growth after 5 days. 05/11/21 14:41 Foot Right Gram Stain - Final 05/11/21 14:41 Foot Right Routine Culture - Final Staphylococcus aureus Strep agalactiae (Grp B) Assessment and Plan (1) Drug-induced liver injury: Status: Acute 1/ Abnormal LFT with gradually uptrending AST/ALT which had been relatively normal prior to this. Hep viral serologies were negative. Timing coincides with prolonged course of zosyn which I suspect is the cause. Usually zosyn is associated with cholestatic picture or mixed picture and tends to occur after 1-3 weeks of treatment. Usually tends to be self limiting. Rarely can be associated with DRESS syndrome but this is not the case here. PLAN: 1/ Recommend changing zosyn to alternative agent e.g imipenam 2/ check Hep C PCR 3/ US liver to exclude other causes e.g liver lesions, masses, gallstones 4/ check CPK 5/ IF numbers cont to trend up then expand work up. Procedures Date of Service Date of Service: 05/25/21
--- NOTE | 2021-05-25 21:28 | P.PNNP_ITS ---
Subjective Subjective Date of Service: 05/25/21 Principal diagnosis: vanessa Interval history: No acute issues overnight Physical Exam Vital Signs: Vital Signs: Last Vital Signs Temp 98.2 F 05/25/21 19:58 Pulse 84 05/25/21 19:58 Resp 18 05/25/21 19:58 BP 146/71 H 05/25/21 19:58 Pulse Ox 97 05/25/21 19:58 BMI result Body Mass Index 34.1 Const: Other: No acute distress General: cooperative, comfortable, no acute distress and alert Nutritional Appearance: obese O rientation/consciousness: patient oriented x3 HENMT: Head: Yes normal to inspection, Yes normocephalic and Yes atraumatic Eyes: General: appearance normal, both eyes and all related structures EOM: EOMs intact bilaterally Neck: Neck: Yes no lymphadenopathy and Yes supple Resp: Other: Clear to auscultation bilaterally no rales rhonchi wheezes Effort & Inspection: normal respiratory effort Auscultation: clear to auscultation bilaterally and diminished lung sounds Cardio: Other: No S4; S1-S2; no S3 murmurs Os-Pankaj Rate: regular rate Rhythm: regular rhythm Heart sounds: S1 normal heart sound present and S2 nor mal heart sound present GI: Other: soft nontender nondistended with normoactive bowel sounds Palpation (GI): Soft to palpation, nontender and no guarding Skin: General skin exam: no rashes or lesions noted Neuro: General: patient oriented x3 and moves all extremities Extrem: Other: Right foot with tight Robert wrap . General: No edema Psych: Appearance: grossly normal Objective Data Labs CBC & Chem 7: 05/25/21 05:34 05/25/21 05:34 Labs: Laboratory Results - last 24 hr 05/25/21 05/25/21 05/25/21 05:34 05:34 07:43 WBC 12.2 H RBC 3.39 L Hgb 9.5 L Hct 29.7 L MCV 87.6 MCH 28.0 MCHC 32.0 RDW 14.7 Plt Count 519 H D MPV 9.1 L Immature Gran % (Auto) 0.4 Neut % (Auto) 64.3 Lymph % (Auto) 22.9 Shelby % (Auto) 8.5 Eos % (Auto) 3.3 Baso % (Auto) 0.6 Lymph # (Auto) 2.8 Shelby # (Auto) 1.0 Eos # (Auto) 0.4 Baso # (Auto) 0.1 Abs Immat Gran (auto) 0.05 H Absolute Neuts (auto) 7.9 Absolute Nucleated RBC 0.000 Nucleated RBC % (auto) 0.0 Sodium 138 Potassium 5.6 H Chloride 104 Carbon Dioxide 26 Anion Gap 14 BUN 67 H Creatinine 3.66 H Estim Creat Clear Calc 23.6 Estimated GFR 17 POC Glucose 242 H Fasting Glucose 196 H Calcium 8.6 Total Bilirubin 0.4 AST 124 H ALT 274 H Alkaline Phosphatase 77 Total Protein 7.6 Albumin 3.1 L 05/25/21 05/25/21 10:40 16:15 WBC RBC Hgb Hct MCV MCH MCHC RDW Plt Count MPV Immature Gran % (Auto) Neut % (Auto) Lymph % (Auto) Shelby % (Auto) Eos % (Auto) Baso % (Auto) Lymph # (Auto) Shelby # (Auto) Eos # (Auto) Baso # (Auto) Abs Immat Gran (auto) Absolute Neuts (auto) Absolute Nucleated RBC Nucleated RBC % (auto) Sodium Potassium Chloride Carbon Dioxide Anion Gap BUN Creatinine Estim Creat Clear Calc Estimated GFR POC Glucose 264 H 261 H Fasting Glucose Calcium Total Bilirubin AST ALT Alkaline Phosphatase Total Protein Albumin Microbiology Microbiology Results: Microbiology 05/11/21 14:41 Blood - Venous Blood Culture - Final Corynebacterium species 05/11/21 15:36 Blood - Venous Blood Culture - Final No growth after 5 days. 05/11/21 14:41 Foot Right Gram Stain - Final 05/11/21 14:41 Foot Right Routine Culture - Final Staphylococcus aureus Strep agalactiae (Grp B) Procedures Date of Service Date of Service: 05/25/21 Assessment & Plan Assessment and plan (1) CKD (chronic kidney disease) stage 3, GFR 30-59 ml/min: Status: Acute Assessment and Plan: stable (2) Hyperkalemia: Status: Acute Assessment and Plan: K treated with lokelma (3) VANESSA (acute kidney injury): Status: Acute Assessment and Plan: resolved Time Spent With Patient Time: Total time spent is greater than 50% in coordination of care (as documented) at patient's floor/unit and/or counseling patient: Progress Note: Quality Stroke Does the patient have a stroke diagnosis?: No
[2021-05-25 21:52] LABS: Glucose, Whole Blood 295 mg/dL (60-115)
[2021-05-26 04:00] VITALS: BP 149/65; PULSE 82; RESP 18; TEMP 36.5; O2SAT 97
[2021-05-26] MEDS: Heparin Sodium,Porcine 5,000 UNIT/ML VIAL 5000 UNIT SUBCUT ×2 (05:19→16:42)
--- NOTE | 2021-05-26 06:57 | P.PNNP_ITS ---
Subjective Subjective Date of Service: 05/26/21 Principal diagnosis: vanessa Interval history: No acute issues overnight Physical Exam Vital Signs: Vital Signs: Last Vital Signs Temp 97.7 F 05/26/21 04:00 Pulse 82 05/26/21 04:00 Resp 18 05/26/21 04:00 BP 149/65 H 05/26/21 04:00 Pulse Ox 97 05/26/21 04:00 BMI result Body Mass Index 34.1 Const: Other: No acute distress General: cooperative, comfortable, no acute distress and alert Nutritional Appearance: obese O rientation/consciousness: patient oriented x3 HENMT: Head: Yes normal to inspection, Yes normocephalic and Yes atraumatic Eyes: General: appearance normal, both eyes and all related structures EOM: EOMs intact bilaterally Neck: Neck: Yes no lymphadenopathy and Yes supple Resp: Other: Clear to auscultation bilaterally no rales rhonchi wheezes Effort & Inspection: normal respiratory effort Auscultation: clear to auscultation bilaterally and diminished lung sounds Cardio: Other: No S4; S1-S2; no S3 murmurs Os-Pankaj Rate: regular rate Rhythm: regular rhythm Heart sounds: S1 normal heart sound present and S2 nor mal heart sound present GI: Other: soft nontender nondistended with normoactive bowel sounds Palpation (GI): Soft to palpation, nontender and no guarding Skin: General skin exam: no rashes or lesions noted Neuro: General: patient oriented x3 and moves all extremities Extrem: Other: Right foot with tight Robert wrap . General: No edema Psych: Appearance: grossly normal Objective Data Labs CBC & Chem 7: 05/25/21 05:34 05/25/21 05:34 Labs: Laboratory Results - last 24 hr 05/25/21 05/25/21 05/25/21 05:34 07:43 10:40 Sodium 138 Potassium 5.6 H Chloride 104 Carbon Dioxide 26 Anion Gap 14 BUN 67 H Creatinine 3.66 H Estim Creat Clear Calc 23.6 Estimated GFR 17 POC Glucose 242 H 264 H Fasting Glucose 196 H Calcium 8.6 Total Bilirubin 0.4 AST 124 H ALT 274 H Alkaline Phosphatase 77 Total Protein 7.6 Albumin 3.1 L 05/25/21 05/25/21 16:15 21:47 Sodium Potassium Chloride Carbon Dioxide Anion Gap BUN Creatinine Estim Creat Clear Calc Estimated GFR POC Glucose 261 H 295 H Fasting Glucose Calcium Total Bilirubin AST ALT Alkaline Phosphatase Total Protein Albumin Microbiology Microbiology Results: Microbiology 05/11/21 14:41 Blood - Venous Blood Culture - Final Corynebacterium species 05/11/21 15:36 Blood - Venous Blood Culture - Final No growth after 5 days. 05/11/21 14:41 Foot Right Gram Stain - Final 05/11/21 14:41 Foot Right Routine Culture - Final Staphylococcus aureus Strep agalactiae (Grp B) Procedures Date of Service Date of Service: 05/26/21 Assessment & Plan Assessment and plan (1) CKD (chronic kidney disease) stage 3, GFR 30-59 ml/min: Status: Acute Assessment and Plan: stable (2) Hyperkalemia: Status: Acute Assessment and Plan: K treated with lokelma (3) VANESSA (acute kidney injury): Status: Acute Assessment and Plan: resolved (4) CKD stage G3b/A2, GFR 30-44 and albumin creatinine ratio 30-299 mg/g: Status: Acute Assessment and Plan: protienuric presumed DM nephropathy (5) Anemia: Status: Acute Assessment and Plan: iron stores ok treat with procrit Time Spent With Patient Time: Total time spent is greater than 50% in coordination of care (as documented) at patient's floor/unit and/or counseling patient: Progress Note: Quality Stroke Does the patient have a stroke diagnosis?: No
[2021-05-26 07:58] LABS: Glucose, Whole Blood 229 mg/dL (60-115)
[2021-05-26 08:00] VITALS: BP 126/58; PULSE 81; RESP 20; TEMP 36.1; O2SAT 98
[2021-05-26] MEDS: Gabapentin 300 MG CAPSULE PO ×3 (08:13→21:05)
[2021-05-26] MEDS: Insulin Lispro 100 UNIT/ML 3 ML VIAL SUBCUT ×4 (08:13→21:04)
[2021-05-26] MEDS: Sodium Zirconium Cyclosilicate 10 GM POWD.PACK PO (08:17)
[2021-05-26 08:33] LABS: Alanine Aminotransferase 196 U/L (0-40); Albumin Level 3.3 g/dL (3.5-5.0); Alkaline Phosphatase 71 U/L (39-117); Anion Gap 16 (12-20); Aspartate Amino Transferase 49 U/L (5-37); Bilirubin Total 0.4 mg/dL (0.0-1.0); Blood Urea Nitrogen 75 mg/dL (9-16); Calcium 8.7 mg/dL (8.4-10.2); Carbon Dioxide 23 mmol/L (22-29); Chloride 105 mmol/L (96-108); Creatinine Clr Calc Pharmacy 24.3; Estimated Glomerular Filt Rate 18; Glucose Fasting 241 mg/dL (60-99); Potassium 5.5 mmol/L (3.3-5.1); Sodium 138 mmol/L (135-145); Total Protein 7.6 g/dL (6.5-8.0)
[2021-05-26 11:26] LABS: Glucose, Whole Blood 271 mg/dL (60-115)
[2021-05-26 11:32] VITALS: BP 138/68; PULSE 98; RESP 20; TEMP 36; O2SAT 99
[2021-05-26] MEDS: 0.9 % Sodium Chloride Flush 3 ML SYRINGE IVFLUSH ×2 (11:48→17:22)
[2021-05-26] MEDS: polyethylene glycoL 3350 17 GM POWD.PACK PO (11:50)
--- NOTE | 2021-05-26 12:44 | HO.PM.IMPN ---
Subjective Subjective Date of Service: 05/26/21 Interval History: No acute issues overnight; denies abdominal pain. Ambulatory in hallway Review of Systems Denies chest pain Denies shortness of breath Denies nausea vomiting diarrhea Physical Exam Vital Signs: Vital Signs: Last Vital Signs Temp 96.8 F 05/26/21 11:32 Pulse 98 05/26/21 11:32 Resp 20 05/26/21 11:32 BP 138/68 05/26/21 11:32 Pulse Ox 99 05/26/21 11:32 BMI result Body Mass Index 34.1 Const: Other: No acute distress Resp: Other: Clear to auscultation bilaterally no rales rhonchi wheezes Cardio: Other: No S4; S1-S2; no S3 murmurs Os-Pankaj GI: Other: soft nontender nondistended with normoactive bowel sounds Extrem: Other: Right foot with tight Robert wrap . Objective Data Active Medications Acetaminophen (Acetaminophen 325 Mg Tablet) 650 mg PO Q6H PRN PRN Reason: Pain, Mild (Pain Scale 1-3) Last Admin: 05/24/21 21:45 Dose: 650 mg Documented by: AGUSTIN Dextrose (Dextrose 50 % 25 Gm/50 Ml Vial) 25 gm IVPUSH Q15M PRN; Protocol PRN Reason: per Hypoglycemia Standing Ord. Gabapentin (Gabapentin 300 Mg Capsule) 300 mg PO TID [facility] Last Admin: 05/26/21 08:13 Dose: 300 mg Documented by: PO Glucose (Glucose Gel 15 Gm Gel..Gram.) 15 gm PO Q15M PRN; Protocol PRN Reason: per Hypoglycemia Standing Ord. Heparin Sodium (Porcine) (Heparin Sodium,Porcine 5,000 Unit/Ml Vial) 5,000 unit SUBCUT Q12H [facility] Last Admin: 05/26/21 05:19 Dose: 5,000 unit Documented by: AGUSTIN Meropenem 1 gm/ Sodium (Chloride) 100 mls @ 100 mls/hr IV Q8H [facility] Last Admin: 05/26/21 11:47 Dose: 100 mls/hr Documented by: PO Insulin Human Lispro (Insulin Lispro 100 Unit/Ml 3 Ml Vial) 0 unit SUBCUT QIDACHS [facility]; Protocol Last Admin: 05/26/21 12:16 Dose: 6 unit Documented by: PO Ondansetron HCl (Ondansetron Hcl 4 Mg/2 Ml Vial) 4 mg IVPUSH Q8H PRN PRN Reason: Nausea and Vomiting Pharmacy Consult (Consult Rx Perform Med Rec) 1 each MISCELLANE ONCE PRN PRN Reason: Consult order Polyethylene Glycol (Polyethylene Glycol 3350 17 Gm Powd.Pack) 17 gm PO DAILY [facility] Last Admin: 05/26/21 11:50 Dose: 17 gm Documented by: PO Sodium Chloride (0.9 % Sodium Chloride Flush 3 Ml Syringe) 3 ml IVFLUSH QSHIFT [facility] Last Admin: 05/26/21 11:48 Dose: 3 ml Documented by: PO Sodium Zirconium Cyclosilicate (Sodium Zirconium Cyclosilicate 10 Gm Powd.Pack) 10 gm PO DAILY [facility] Last Admin: 05/26/21 08:17 Dose: 10 gm Documented by: PO Trazodone HCl (Trazodone Hcl 50 Mg Tablet) 150 mg PO BEDTIME [facility] Last Admin: 05/25/21 23:00 Dose: Not Given Documented by: AGUSTIN Non-Admin Reason: Patient Refused Labs CBC & Chem 7: 05/25/21 05:34 05/26/21 08:05 Labs: Laboratory Results - last 24 hr 05/11/21 05/12/21 05/13/21 14:19 06:50 06:13 Anion Gap Creatinine 1.59 H 1.48 H 1.52 H Estim Creat Clear Calc Estimated GFR POC Glucose Fasting Glucose Calcium Total Bilirubin AST ALT Alkaline Phosphatase Total Creatine Kinase Total Protein Albumin 05/14/21 05/15/21 05/16/21 05:19 05:44 05:29 Anion Gap Creatinine 1.72 H 3.23 H 3.76 H Estim Creat Clear Calc Estimated GFR POC Glucose Fasting Glucose Calcium Total Bilirubin AST ALT Alkaline Phosphatase Total Creatine Kinase Total Protein Albumin 05/17/21 05/18/21 05/19/21 12:42 05:33 05:19 Anion Gap Creatinine 3.60 H 3.50 H 3.38 H Estim Creat Clear Calc Estimated GFR POC Glucose Fasting Glucose Calcium Total Bilirubin AST ALT Alkaline Phosphatase Total Creatine Kinase Total Protein Albumin 05/20/21 05/22/21 05/22/21 05:25 06:27 12:50 Anion Gap Creatinine 3.29 H 3.18 H 3.41 H Estim Creat Clear Calc Estimated GFR POC Glucose Fasting Glucose Calcium Total Bilirubin AST ALT Alkaline Phosphatase Total Creatine Kinase Total Protein Albumin 05/23/21 05/24/21 05/25/21 06:11 05:21 05:34 Anion Gap Creatinine 3.42 H 3.37 H 3.66 H Estim Creat Clear Calc Estimated GFR POC Glucose Fasting Glucose Calcium Total Bilirubin AST ALT Alkaline Phosphatase Total Creatine Kinase Total Protein Albumin 05/25/21 05/25/21 05/26/21 16:15 21:47 07:40 Anion Gap Creatinine Estim Creat Clear Calc Estimated GFR POC Glucose 261 H 295 H 229 H Fasting Glucose Calcium Total Bilirubin AST ALT Alkaline Phosphatase Total Creatine Kinase Total Protein Albumin 05/26/21 05/26/21 08:05 11:18 Anion Gap 16 Creatinine 3.55 H Estim Creat Clear Calc 24.3 Estimated GFR 18 POC Glucose 271 H Fasting Glucose 241 H Calcium 8.7 Total Bilirubin 0.4 AST 49 H D ALT 196 H Alkaline Phosphatase 71 Total Creatine Kinase 69 Total Protein 7.6 Albumin 3.3 L Assessment and Plan (1) Anemia: Status: Acute (2) Drug-induced liver injury: Status: Acute (3) CKD (chronic kidney disease) stage 3, GFR 30-59 ml/min: Status: Acute (4) Osteomyelitis: Status: Acute Assessment and Plan: 56 year old man admitted with osteomyelitis and pathological fracture to right foot. Previous diagnostic imaging studies did not show osteomyelitis. States was seen at [facility] earlier this week by Podiatry; was told he would need surgery in July to remove the infected bone. Awaiting placement. 1.Acute osteomyelitis With pathological fracture of 2nd metatarsal Zosyn D/C'd secondary to elevated LTF's (day 13)...6 week total... Switched to Meropenim 2.Type II DM Sliding scale, ADA diet Usually on Insulin Pump at home...will D/C while inoatient. Can reume when D/C 3.NEEMA. CPAP at HS 4.CKD 3 Continues to improve...conservatives at this time Low K+ diet Lokelma 10mg daily. Follow renals/divalents 5. Transaminitis Resolving...query secondary to Zosyn as down when D/C'd. US unremarkable save fatty liver. DVT prophylaxis with heparin Full code Quality Stroke Does the patient have a stroke diagnosis?: No VTE Prior VTE?: No VTE Risk Level:: Medical - moderate - high VTE Device Contraindication: Treatment Not Indicated VTE Drug Contraindication: N/A - Med Ordered
[2021-05-26 15:24] VITALS: BP 130/66; PULSE 76; RESP 18; TEMP 36.1; O2SAT 99
[2021-05-26 16:19] LABS: Glucose, Whole Blood 193 mg/dL (60-115)
[2021-05-26 20:00] VITALS: BP 144/63; PULSE 90; RESP 18; TEMP 36.4; O2SAT 97
[2021-05-26 20:10] LABS: Glucose, Whole Blood 306 mg/dL (60-115)
[2021-05-26 23:35] VITALS: BP 133/66; PULSE 79; RESP 18; TEMP 36.2; O2SAT 98
[2021-05-27] MEDS: 0.9 % Sodium Chloride Flush 3 ML SYRINGE IVFLUSH ×3 (01:17→16:28)
[2021-05-27] MEDS: Acetaminophen 325 MG TABLET 650 MG PO (03:35)
[2021-05-27 03:58] VITALS: BP 145/66; PULSE 83; RESP 18; TEMP 36.1; O2SAT 100
[2021-05-27] MEDS: Heparin Sodium,Porcine 5,000 UNIT/ML VIAL 5000 UNIT SUBCUT ×2 (05:10→16:27)
[2021-05-27 06:23] LABS: Alanine Aminotransferase 246 U/L (0-40); Albumin Level 3.1 g/dL (3.5-5.0); Alkaline Phosphatase 69 U/L (39-117); Anion Gap 14 (12-20); Aspartate Amino Transferase 140 U/L (5-37); Bilirubin Total 0.3 mg/dL (0.0-1.0); Blood Urea Nitrogen 69 mg/dL (9-16); Calcium 8.1 mg/dL (8.4-10.2); Carbon Dioxide 22 mmol/L (22-29); Chloride 104 mmol/L (96-108); Creatinine Clr Calc Pharmacy 27.3; Estimated Glomerular Filt Rate 20; Glucose Fasting 245 mg/dL (60-99); Potassium 5.1 mmol/L (3.3-5.1); Sodium 135 mmol/L (135-145)
[2021-05-27 07:49] LABS: Glucose, Whole Blood 212 mg/dL (60-115)
[2021-05-27 08:00] VITALS: BP 145/75; PULSE 95; RESP 18; TEMP 36; O2SAT 100
[2021-05-27] MEDS: polyethylene glycoL 3350 17 GM POWD.PACK PO (08:18)
[2021-05-27] MEDS: Gabapentin 300 MG CAPSULE PO ×3 (08:18→22:51)
[2021-05-27] MEDS: Insulin Lispro 100 UNIT/ML 3 ML VIAL SUBCUT ×3 (08:18→22:51)
[2021-05-27] MEDS: Sodium Zirconium Cyclosilicate 10 GM POWD.PACK PO (08:18)
--- NOTE | 2021-05-27 11:34 | PM.PNNEP ---
Subjective Subjective Date of Service: 06/01/21 Principal diagnosis: vanessa Interval history: No acute issues overnight; denies abdominal pain. Ambulatory in hallway Physical Exam Vital Signs: Vital Signs: Last Vital Signs Temp 96.8 F 05/27/21 08:00 Pulse 95 05/27/21 08:00 Resp 18 05/27/21 08:00 BP 145/75 H 05/27/21 08:00 Pulse Ox 100 05/27/21 08:00 BMI result Body Mass Index 34.1 Const: General: cooperative Orientation/consciousness: oriented to person Neck: Neck: Yes supple Resp: Effort & Inspection: no respiratory distress Auscultation: clear to auscultation bilaterally Cardio: Jugular venous distension: no JVD Palpation: no palpable S3 Heart sounds: S2 abnormal and no gallops GI: Inspection: Yes normal to inspection Palpation (GI): Soft to palpation Neuro: General: oriented to person Motor exam (neuro): no asterixis Extrem: General: Yes normal to inspection Right upper extremity: edema (1+) Objective Data Labs CBC & Chem 7: 05/30/21 03:52 05/31/21 05:20 Labs: Laboratory Results - last 24 hr 05/26/21 05/26/21 05/27/21 16:15 19:50 05:26 Sodium 135 Potassium 5.1 Chloride 104 Carbon Dioxide 22 Anion Gap 14 BUN 69 H Creatinine 3.16 H Estim Creat Clear Calc 27.3 Estimated GFR 20 POC Glucose 193 H 306 H Fasting Glucose 245 H Calcium 8.1 L D Total Bilirubin 0.3 AST 140 H ALT 246 H Alkaline Phosphatase 69 Total Protein 7.0 Albumin 3.1 L 05/27/21 07:34 Sodium Potassium Chloride Carbon Dioxide Anion Gap BUN Creatinine Estim Creat Clear Calc Estimated GFR POC Glucose 212 H Fasting Glucose Calcium Total Bilirubin AST ALT Alkaline Phosphatase Total Protein Albumin Microbiology Microbiology Results: Microbiology 05/11/21 14:41 Blood - Venous Blood Culture - Final Corynebacterium species 05/11/21 15:36 Blood - Venous Blood Culture - Final No growth after 5 days. 05/11/21 14:41 Foot Right Gram Stain - Final 05/11/21 14:41 Foot Right Routine Culture - Final Staphylococcus aureus Strep agalactiae (Grp B) Procedures Date of Service Date of Service: 05/27/21 Assessment & Plan Assessment and plan (1) CKD stage G3b/A2, GFR 30-44 and albumin creatinine ratio 30-299 mg/g: Status: Acute (2) VANESSA (acute kidney injury): Status: Acute Assessment and Plan: VANESSA superimposed on CKD Underlying diabetic nephropathy Creatinine essentially unchanged Hyperkalemia stands corrected No ss of uremia No absolute indication for biopsy Time Spent With Patient Time: Total time spent is greater than 50% in coordination of care (as documented) at patient's floor/unit and/or counseling patient: Time with patient: 15 - 24 minutes Progress Note: Quality Stroke Does the patient have a stroke diagnosis?: No
[2021-05-27 11:35] LABS: Glucose, Whole Blood 196 mg/dL (60-115)
--- NOTE | 2021-05-27 11:39 | PC.NURSE ---
skin/wound assessment completed today. Patient has a right plantar foot diabetic ulcer which is slowly healing. Cleansed with normal saline, silver alginate applied to wound bed covered with gauze and roll gauze. no other skin issues noted at this time.
[2021-05-27 12:00] VITALS: BP 140/63; PULSE 82; RESP 18; TEMP 36.4; O2SAT 100
--- NOTE | 2021-05-27 13:31 | MHC.CM.PN ---
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 DISCHARGE PLAN STR - BID OIV ABX ACTIVE SEARCH IN PROCESS- PENDING RESPONSES 2, HOME WITH [facility] VNA SEARCH FOR CONTRACTED INS AGENCY AND AVAILABILITY OF START DATE [employer], [employer], [facility] [facility] [place]. [facility] AND [facility] - PENDING RESPONSES 3, HOME INSFUSION [facility], [employer], [facility], [facility], [facility] referrals iniated 4, psychiatric cns to complete risk assessment for subastance abuse no use over 2 months
--- NOTE | 2021-05-27 14:34 | HO.PM.IMPN ---
Subjective Subjective Date of Service: 05/27/21 Interval History: No acute issues overnight. Afebrile Review of Systems Denies chest pain Denies shortness of breath Denies nausea vomiting diarrhea Physical Exam Vital Signs: Vital Signs: Last Vital Signs Temp 97.6 F 05/27/21 12:00 Pulse 82 05/27/21 12:00 Resp 18 05/27/21 12:00 BP 140/63 H 05/27/21 12:00 Pulse Ox 100 05/27/21 12:00 BMI result Body Mass Index 34.1 Const: Other: No acute distress Resp: Other: Clear to auscultation bilaterally no rales rhonchi wheezes Cardio: Other: No S4; S1-S2; no S3 murmurs Os-Pankaj GI: Other: soft nontender nondistended with normoactive bowel sounds Extrem: Other: Right foot with tight Robert wrap . Objective Data Active Medications Acetaminophen (Acetaminophen 325 Mg Tablet) 650 mg PO Q6H PRN PRN Reason: Pain, Mild (Pain Scale 1-3) Last Admin: 05/27/21 03:35 Dose: 650 mg Documented by: KATHIE Dextrose (Dextrose 50 % 25 Gm/50 Ml Vial) 25 gm IVPUSH Q15M PRN; Protocol PRN Reason: per Hypoglycemia Standing Ord. Gabapentin (Gabapentin 300 Mg Capsule) 300 mg PO TID [facility] Last Admin: 05/27/21 08:18 Dose: 300 mg Documented by: SAGE Glucose (Glucose Gel 15 Gm Gel..Gram.) 15 gm PO Q15M PRN; Protocol PRN Reason: per Hypoglycemia Standing Ord. Heparin Sodium (Porcine) (Heparin Sodium,Porcine 5,000 Unit/Ml Vial) 5,000 unit SUBCUT Q12H [facility] Last Admin: 05/27/21 05:10 Dose: 5,000 unit Documented by: KATHIE Meropenem 1 gm/ Sodium (Chloride) 100 mls @ 100 mls/hr IV Q8H [facility] Last Infusion: 05/27/21 11:36 Dose: 100 mls/hr Documented by: SAGE Insulin Human Lispro (Insulin Lispro 100 Unit/Ml 3 Ml Vial) 0 unit SUBCUT QIDACHS [facility]; Protocol Last Admin: 05/27/21 11:41 Dose: 2 unit Documented by: SAGE Ondansetron HCl (Ondansetron Hcl 4 Mg/2 Ml Vial) 4 mg IVPUSH Q8H PRN PRN Reason: Nausea and Vomiting Pharmacy Consult (Consult Rx Perform Med Rec) 1 each MISCELLANE ONCE PRN PRN Reason: Consult order Polyethylene Glycol (Polyethylene Glycol 3350 17 Gm Powd.Pack) 17 gm PO DAILY [facility] Last Admin: 05/27/21 08:18 Dose: 17 gm Documented by: SAGE Sodium Chloride (0.9 % Sodium Chloride Flush 3 Ml Syringe) 3 ml IVFLUSH QSHIFT [facility] Last Admin: 05/27/21 08:18 Dose: 3 ml Documented by: SAGE Sodium Zirconium Cyclosilicate (Sodium Zirconium Cyclosilicate 10 Gm Powd.Pack) 10 gm PO DAILY [facility] Last Admin: 05/27/21 08:18 Dose: 10 gm Documented by: SAGE Trazodone HCl (Trazodone Hcl 50 Mg Tablet) 150 mg PO BEDTIME [facility] Last Admin: 05/26/21 21:07 Dose: Not Given Documented by: MONIQUE Non-Admin Reason: Patient Refused Labs CBC & Chem 7: 05/25/21 05:34 05/27/21 05:26 Labs: Laboratory Results - last 24 hr 05/26/21 05/26/21 05/27/21 16:15 19:50 05:26 Anion Gap 14 Estim Creat Clear Calc 27.3 Estimated GFR 20 POC Glucose 193 H 306 H Fasting Glucose 245 H Calcium 8.1 L D Total Bilirubin 0.3 AST 140 H ALT 246 H Alkaline Phosphatase 69 Total Protein 7.0 Albumin 3.1 L 05/27/21 05/27/21 07:34 11:22 Anion Gap Estim Creat Clear Calc Estimated GFR POC Glucose 212 H 196 H Fasting Glucose Calcium Total Bilirubin AST ALT Alkaline Phosphatase Total Protein Albumin Assessment and Plan (1) Drug-induced liver injury: Status: Acute (2) Transaminitis: Status: Acute (3) CKD stage G3b/A2, GFR 30-44 and albumin creatinine ratio 30-299 mg/g: Status: Acute (4) Osteomyelitis: Status: Acute Assessment and Plan: 56 year old man admitted with osteomyelitis and pathological fracture to right foot. Previous diagnostic imaging studies did not show osteomyelitis. States was seen at [facility] earlier this week by Podiatry; was told he would need surgery in July to remove the infected bone. Awaiting placement for long-term antibiotics 1.Acute osteomyelitis With pathological fracture of 2nd metatarsal Zosyn D/C'd secondary to elevated LTF's (day 14 total ABTX)...6 week total... Switched to Meropenim without issue 2.Type II DM Sliding scale, ADA diet Will discuss with patient; attempt to resume pump and cover with sliding scale 3.NEEMA. CPAP at HS 4.CKD 3 Continues to improve...conservatives at this time Low K+ diet Lokelma 10mg daily. Follow renals/divalents 5. Transaminitis Resolving...query secondary to Zosyn as down when D/C'd. US unremarkable save fatty liver. DVT prophylaxis with heparin Full code Quality Stroke Does the patient have a stroke diagnosis?: No VTE Prior VTE?: No VTE Risk Level:: Medical - moderate - high VTE Device Contraindication: Treatment Not Indicated VTE Drug Contraindication: N/A - Med Ordered
[2021-05-27 15:16] VITALS: BP 119/69; PULSE 95; RESP 20; TEMP 36.6; O2SAT 91
[2021-05-27 15:46] LABS: Glucose, Whole Blood 136 mg/dL (60-115)
[2021-05-27 16:00] VITALS: PULSE 95
[2021-05-27 20:00] VITALS: BP 137/64; PULSE 86; RESP 19; TEMP 36.4; O2SAT 99
[2021-05-27 22:46] LABS: Glucose, Whole Blood 180 mg/dL (60-115)
[2021-05-27] MEDS: traZODone HCL 50 MG TABLET 150 MG PO (22:50)
[2021-05-28 04:00] VITALS: BP 114/56; PULSE 76; RESP 19; TEMP 36.1; O2SAT 95
[2021-05-28 06:04] LABS: Alanine Aminotransferase 246 U/L (0-40); Albumin Level 2.9 g/dL (3.5-5.0); Alkaline Phosphatase 75 U/L (39-117); Anion Gap 9 (12-20); Aspartate Amino Transferase 128 U/L (5-37); Bilirubin Total 0.4 mg/dL (0.0-1.0); Blood Urea Nitrogen 74 mg/dL (9-16); Calcium 8.1 mg/dL (8.4-10.2); Carbon Dioxide 24 mmol/L (22-29); Chloride 109 mmol/L (96-108); Estimated Glomerular Filt Rate 20; Glucose Fasting 227 mg/dL (60-99); Potassium 5.3 mmol/L (3.3-5.1); Sodium 137 mmol/L (135-145); Total Protein 6.8 g/dL (6.5-8.0)
[2021-05-28] MEDS: Heparin Sodium,Porcine 5,000 UNIT/ML VIAL 5000 UNIT SUBCUT ×2 (06:16→17:14)
[2021-05-28] MEDS: 0.9 % Sodium Chloride Flush 3 ML SYRINGE IVFLUSH ×4 (07:46→21:46)
[2021-05-28] MEDS: Insulin Lispro 100 UNIT/ML 3 ML VIAL SUBCUT ×4 (07:46→21:44)
[2021-05-28] MEDS: Sodium Zirconium Cyclosilicate 10 GM POWD.PACK PO ×2 (07:47→10:53)
[2021-05-28] MEDS: polyethylene glycoL 3350 17 GM POWD.PACK PO (07:47)
[2021-05-28] MEDS: Gabapentin 300 MG CAPSULE PO ×3 (07:47→21:38)
[2021-05-28 08:00] VITALS: BP 129/61; PULSE 86; RESP 17; TEMP 36.1; O2SAT 99
--- NOTE | 2021-05-28 09:52 | HE.PHANOTE ---
Meropenem ok per Dr Vargas Thanks Deny
[2021-05-28 10:11] LABS: C Reactive Protein 0.52 mg/dL (< or = 0.50)
[2021-05-28 11:53] LABS: Glucose, Whole Blood 201 mg/dL (60-115)
[2021-05-28 11:53] LABS: Glucose, Whole Blood 231 mg/dL (60-115)
[2021-05-28 12:00] VITALS: BP 149/70; PULSE 84; RESP 17; TEMP 36.1; O2SAT 98
--- NOTE | 2021-05-28 15:04 | MHC.CM.PN ---
nurse immigration case manager note was aked by staff nurse to see patient as he was very upset and was threatening to leave against medical advice, [facility] and again explained his diagnosis , the need for the [place] [facility]x (whixch may or not work but he needs to try this ) and explained that it would not be a matter of just amputating a toe it wi=ould be muuchg more, patient reported that he recived this information from the surgeon yesterday but he is woprried about protecting his eyes and kidneys as his blood sugar has been elevated as he is not on his home diabetic pump. and why trey for the medicacation to see if it heals the infection why not ampuateed he was talking with adina aguilar and wanted to go to [facility] to see his podeitrist, after furthr discussion with himm answering all his questions he spoke with his family and is willing to stay [place] through monday , he would like totalk with some one regarding his inceasing anxiety about his prolonged hospitlaization and his diagnosis , referral made to the care team for additional diversional activities, relaxation techniques during this difficult time see previous notes from 05/27 regarding referrals will be her through the weekend as he will need insurance auth , and bed or vna availabuility
[2021-05-28 16:00] VITALS: BP 142/65; PULSE 84; RESP 18; TEMP 36.1; O2SAT 99
[2021-05-28 16:51] LABS: Glucose, Whole Blood 234 mg/dL (60-115)
--- NOTE | 2021-05-28 17:15 | P.PNIM_ITS ---
Subjective Subjective Date of Service: 05/28/21 Interval History: This history was taken in [place] from the patient. No fever. Pain of R foot improved. Review of Systems Review of Systems: Yes all other systems are reviewed and are negative Physical Exam Vital Signs: Vital Signs: Last Vital Signs Temp 97 F 05/28/21 16:00 Pulse 84 05/28/21 16:00 Resp 18 05/28/21 16:00 BP 142/65 H 05/28/21 16:00 Pulse Ox 99 05/28/21 16:00 BMI result Body Mass Index 34.1 Gen: in no acute distress HEENT: sclera anicteric, moist mucus membranes Neck: supple, R Antunez catheter without signs of infection Lungs: clear to auscultation bilaterally Heart: regular rate and rhythm, no murmurs Abd: soft, non-tender, non-distended Ext: no edema Skin: warm/well-perfused, R plantar deep ulcer at head of 2nd metatarsal with minimal drainage Neuro: alert and oriented x3 Psych: appropriate affect Objective Data Active Medications Acetaminophen (Acetaminophen 325 Mg Tablet) 650 mg PO Q6H PRN PRN Reason: Pain, Mild (Pain Scale 1-3) Last Admin: 05/27/21 03:35 Dose: 650 mg Documented by: KATHIE Dextrose (Dextrose 50 % 25 Gm/50 Ml Vial) 25 gm IVPUSH Q15M PRN; Protocol PRN Reason: per Hypoglycemia Standing Ord. Gabapentin (Gabapentin 300 Mg Capsule) 300 mg PO TID [facility] Last Admin: 05/28/21 14:27 Dose: 300 mg Documented by: PO Glucose (Glucose Gel 15 Gm Gel..Gram.) 15 gm PO Q15M PRN; Protocol PRN Reason: per Hypoglycemia Standing Ord. Heparin Sodium (Porcine) (Heparin Sodium,Porcine 5,000 Unit/Ml Vial) 5,000 unit SUBCUT Q12H [facility] Last Admin: 05/28/21 06:16 Dose: 5,000 unit Documented by: APOORVA Meropenem 1 gm/ Sodium (Chloride) 100 mls @ 100 mls/hr IV Q8H [facility] Last Infusion: 05/28/21 09:09 Dose: 100 mls/hr Documented by: CLARITA Insulin Human Lispro (Insulin Lispro 100 Unit/Ml 3 Ml Vial) 0 unit SUBCUT QIDACHS [facility]; Protocol Last Admin: 05/28/21 14:27 Dose: 4 unit Documented by: PO Comments: coverage for 1130 blood sugar. Sliding scale had been d/c at that time. New order just placed Insulin Pump (Subcutaneous Insulin Pump) 1 each SUBCUT QIDACHS [facility]; Protocol Ondansetron HCl (Ondansetron Hcl 4 Mg/2 Ml Vial) 4 mg IVPUSH Q8H PRN PRN Reason: Nausea and Vomiting Pharmacy Consult (Consult Rx Perform Med Rec) 1 each MISCELLANE ONCE PRN PRN Reason: Consult order Polyethylene Glycol (Polyethylene Glycol 3350 17 Gm Powd.Pack) 17 gm PO DAILY [facility] Last Admin: 05/28/21 07:47 Dose: 17 gm Documented by: PO Sodium Chloride (0.9 % Sodium Chloride Flush 3 Ml Syringe) 3 ml IVFLUSH QSHIFT [facility] Last Admin: 05/28/21 07:46 Dose: 3 ml Documented by: PO Sodium Zirconium Cyclosilicate (Sodium Zirconium Cyclosilicate 10 Gm Powd.Pack) 10 gm PO DAILY [facility] Last Admin: 05/28/21 07:47 Dose: 10 gm Documented by: PO Trazodone HCl (Trazodone Hcl 50 Mg Tablet) 150 mg PO BEDTIME [facility] Last Admin: 05/27/21 22:50 Dose: 150 mg Documented by: APOORVA Labs CBC & Chem 7: 05/25/21 05:34 05/28/21 05:23 Labs: Laboratory Results - last 24 hr 05/27/21 05/28/21 05/28/21 22:39 05:23 07:29 Anion Gap 9 L Estim Creat Clear Calc 27.0 Estimated GFR 20 POC Glucose 180 H 231 H Fasting Glucose 227 H Calcium 8.1 L Total Bilirubin 0.4 AST 128 H ALT 246 H Alkaline Phosphatase 75 C-Reactive Protein 0.52 H Total Protein 6.8 Albumin 2.9 L 05/28/21 05/28/21 11:33 16:45 Anion Gap Estim Creat Clear Calc Estimated GFR POC Glucose 201 H 234 H Fasting Glucose Calcium Total Bilirubin AST ALT Alkaline Phosphatase C-Reactive Protein Total Protein Albumin Assessment and Plan (1) Drug-induced liver injury: Status: Acute (2) Transaminitis: Status: Acute (3) CKD stage G3b/A2, GFR 30-44 and albumin creatinine ratio 30-299 mg/g: Status: Acute (4) Osteomyelitis: Status: Acute Assessment and Plan: hospital d#17 56yo M with DM2 admitted with osteomyelitis of neck of 2nd metatarsal with pathologic fracture # DM osteomyelitis/infected DM foot infection - on d#17 of ABX- was initially on pip/gracia but d/c'ed secondary to possible liver injury- now on meropenem with plan to transition to ertapenem upon discharge. Blood cultures negative, wound cultures with MSSA + GBS - ID + gen surg following - will obtain arterial dopplers # transaminitis - ?pip/gracia-induced injury on background of fatty liver - continue to monitor LFTs # CKD3-4 # hyperK - continue low-potassium diet, Lokelma 10 mg/d [give extra dose today] - outpt Nephrology f/u - protect arms for future HD; had Antunez placed 05/13/21 # DM2 - resume home insulin pump # neuropathy - gabapentin # NEEMA - CPAP at night # VTE ppx - UFH # dispo - eventual home with VNA but difficulty finding infusion company due to hx inhalation cocaine use though none in over 2 mo- CM requests psych/addiction risk assessment- will order consult Quality Stroke Does the patient have a stroke diagnosis?: No VTE Prior VTE?: No VTE Risk Level:: Medical - moderate - high VTE Device Contraindication: Treatment Not Indicated VTE Drug Contraindication: N/A - Med Ordered
--- NOTE | 2021-05-28 18:26 | HO.ADDICT_ITS ---
History of Present Illness Date of Service: 05/27/2021 Chief Complaint: Osteomyelitis Reason for Consult: Substance use disorder evaluation Requesting physician: Jose Welch Sources of Information: patient interviewed and chart reviewed HPI Narrative: Patient is a 56 year old Luxembourgish speaking male with numerous chronic health issues, currently medically admitted with osteomelyitis. Consult requested to assess for substance use disorder, given that patient reported history of cocaine use within the last year, and is potentially a candidate for continuation of IV abx at home. Patient seen in room 378. He was awake, alert, pleasant and engaged in interview. Discussed substance use history and patient reported that he has used cocaine intranasal for several years on and off, and most recently has abstained from any cocaine use for the last 3 months. He denies any history of IVDU. Denies any history of opioid use. He reports strong formal and informal supports including his and his daughter who is also his SR. 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 Both are aware of his history with substance use and both have been supportive of his recovery. He identifies [employer], the [employer] he attends, as a strong support which provides structure and a safe environment for him when he is not at home. He discussed his triggers as being more related to certain peers who also use, but he has been focused on his recovery and his newest health issues. He denied any cravings. Of note, patient has been hospitalized for 16 days (at time of interview) and has been engaged in treatment without issue. He was asking appropriate questions to this aligner typewriter, and appeared to be very focused on treating his infection and concerned about possible amputation in the future. Review of Systems Constitutional: Reports as per HPI and Reports no additional constitutional complaints Diagnostics Vital Signs (24Hr): Vital Signs - 24 hr 05/27/21 20:00 05/28/21 04:00 05/28/21 08:00 Temperature 97.6 F 96.9 F 96.9 F Pulse Rate 86 76 86 Respiratory Rate 19 19 17 Blood Pressure 137/64 114/56 L 129/61 Pulse Oximetry 99 95 99 05/28/21 12:00 05/28/21 16:00 Temperature 96.9 F 97 F Pulse Rate 84 84 Respiratory Rate 17 18 Blood Pressure 149/70 H 142/65 H Pulse Oximetry 98 99 BMI result Body Mass Index 34.1 Labs Results: 05/25/21 05:34 05/28/21 05:23 Labs: Laboratory Results - last 48 hr 05/26/21 05/27/21 05/27/21 19:50 05:26 07:34 Sodium 135 Potassium 5.1 Chloride 104 Carbon Dioxide 22 Anion Gap 14 BUN 69 H Creatinine 3.16 H Estim Creat Clear Calc 27.3 Estimated GFR 20 POC Glucose 306 H 212 H Fasting Glucose 245 H Calcium 8.1 L D Total Bilirubin 0.3 AST 140 H ALT 246 H Alkaline Phosphatase 69 C-Reactive Protein Total Protein 7.0 Albumin 3.1 L 05/27/21 05/27/21 05/27/21 11:22 15:38 22:39 Sodium Potassium Chloride Carbon Dioxide Anion Gap BUN Creatinine Estim Creat Clear Calc Estimated GFR POC Glucose 196 H 136 H 180 H Fasting Glucose Calcium Total Bilirubin AST ALT Alkaline Phosphatase C-Reactive Protein Total Protein Albumin 05/28/21 05/28/21 05/28/21 05:23 07:29 11:33 Sodium 137 Potassium 5.3 H Chloride 109 H Carbon Dioxide 24 Anion Gap 9 L BUN 74 H Creatinine 3.20 H Estim Creat Clear Calc 27.0 Estimated GFR 20 POC Glucose 231 H 201 H Fasting Glucose 227 H Calcium 8.1 L Total Bilirubin 0.4 AST 128 H ALT 246 H Alkaline Phosphatase 75 C-Reactive Protein 0.52 H Total Protein 6.8 Albumin 2.9 L 05/28/21 16:45 Sodium Potassium Chloride Carbon Dioxide Anion Gap BUN Creatinine Estim Creat Clear Calc Estimated GFR POC Glucose 234 H Fasting Glucose Calcium Total Bilirubin AST ALT Alkaline Phosphatase C-Reactive Protein Total Protein Albumin Imaging Radiology Impressions: ITS Impressions Foot X-Ray 05/11/21 14:15 IMPRESSION: 1. Pathologic fracture of neck second metatarsal, changes of osteomyelitis at fracture site. 2. Prior amputation third digit. Question early cortical erosion plantar side metatarsal head. 3. No gas tracking in soft tissues. Venous Duplex 05/11/21 15:08 IMPRESSION: No DVT demonstrated in the right lower extremity, unchanged since prior study dated 04/30/2021. Multiple enlarged but morphologically normal-appearing right groin lymph nodes, similar to prior study dated 04/30/2021. Guidance Ultrasound 05/14/21 18:52 IMPRESSION: Successful ultrasound and fluoroscopy-guided placement of a tunneled 30 cm long Antunez catheter with its tip in mid SVC ready for use. Insertion Tunneled Catheter 05/14/21 18:52 IMPRESSION: Successful ultrasound and fluoroscopy-guided placement of a tunneled 30 cm long Antunez catheter with its tip in mid SVC ready for use. Renal Ultrasound 05/17/21 14:15 IMPRESSION: Normal renal ultrasound. Abdomen Ultrasound 05/26/21 09:00 IMPRESSION: Evaluation is limited secondary to patient body habitus and shadowing from overlying bowel gas. There is increased hepatic parenchymal echogenicity which could be related with hepatic steatosis or hepatocellular disease. Ultrasound has decreased sensitivity for evaluation of focal liver lesions. Although, accounting for these limitations, none are definitely identified in this examination. Mental Status Exam Mental Status Exam Patient Appearance: Well Grooomed and Appropriate Patient Orientation: Person, Place, Time and Situation Patient Behavior: Talkative and Cooperative Mood Description: Calm and Appropriate Affect Description: Calm and Appropriate Thought Process: Goal Oriented and Linear Thought Content: positive for Goal Oriented Judgement: Good Medications Medications Current Medications Acetaminophen (Acetaminophen 325 Mg Tablet) 650 mg PO Q6H PRN PRN Reason: Pain, Mild (Pain Scale 1-3) Last Admin: 05/27/21 03:35 Dose: 650 mg Documented by: Dextrose (Dextrose 50 % 25 Gm/50 Ml Vial) 25 gm IVPUSH Q15M PRN; Protocol PRN Reason: per Hypoglycemia Standing Ord. Gabapentin (Gabapentin 300 Mg Capsule) 300 mg PO TID [facility] Last Admin: 05/28/21 14:27 Dose: 300 mg Documented by: Glucose (Glucose Gel 15 Gm Gel..Gram.) 15 gm PO Q15M PRN; Protocol PRN Reason: per Hypoglycemia Standing Ord. Heparin Sodium (Porcine) (Heparin Sodium,Porcine 5,000 Unit/Ml Vial) 5,000 unit SUBCUT Q12H [facility] Last Admin: 05/28/21 17:14 Dose: 5,000 unit Documented by: Meropenem 1 gm/ Sodium (Chloride) 100 mls @ 100 mls/hr IV Q8H [facility] Last Infusion: 05/28/21 18:19 Dose: Infused Documented by: Insulin Human Lispro (Insulin Lispro 100 Unit/Ml 3 Ml Vial) 0 unit SUBCUT QIDACHS [facility]; Protocol Last Admin: 05/28/21 17:14 Dose: 4 unit Documented by: Insulin Pump (Subcutaneous Insulin Pump) 1 each SUBCUT QIDACHS [facility]; Protocol Last Admin: 05/28/21 17:10 Dose: Not Given Documented by: Ondansetron HCl (Ondansetron Hcl 4 Mg/2 Ml Vial) 4 mg IVPUSH Q8H PRN PRN Reason: Nausea and Vomiting Pharmacy Consult (Consult Rx Perform Med Rec) 1 each MISCELLANE ONCE PRN PRN Reason: Consult order Polyethylene Glycol (Polyethylene Glycol 3350 17 Gm Powd.Pack) 17 gm PO DAILY [facility] Last Admin: 05/28/21 07:47 Dose: 17 gm Documented by: Sodium Chloride (0.9 % Sodium Chloride Flush 3 Ml Syringe) 3 ml IVFLUSH QSHIFT [facility] Last Admin: 05/28/21 17:14 Dose: 3 ml Documented by: Sodium Zirconium Cyclosilicate (Sodium Zirconium Cyclosilicate 10 Gm Powd.Pack) 10 gm PO DAILY [facility] Last Admin: 05/28/21 07:47 Dose: 10 gm Documented by: Trazodone HCl (Trazodone Hcl 50 Mg Tablet) 150 mg PO BEDTIME [facility] Last Admin: 05/27/21 22:50 Dose: 150 mg Documented by: Allergies Allergies Allergy/AdvReac Type Severity Reaction Status Date / Time Sulfa (Sulfonamide Allergy Intermediate hives Verified 03/25/21 13:42 Antibiotics) [SULFA (SULFONAMIDE ANTIBIOTICS)] Assessment & Plan Assessment & Plan (1) Osteomyelitis: Qualifiers: Laterality: right Osteomyelitis location: foot Osteomyelitis type: unspecified type Qualified Code(s): M86.9 - Osteomyelitis, unspecified Status: Acute Code(s): M86.9 - Osteomyelitis, unspecified Assessment and Plan: * Patient reporting abstinence for several months--no UDS gathered at time of a dmission as substance was not identified as a concern * Strong informal supports, including and daughter who should be included in any discharge plans, including any concerns providers may have and any risks associated with IV access I spent ___40___ minutes with the patient and/or on the patient floor today, greater than?50% of which was spent counseling/coordinating care. 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 Brother No problems noted. Son No problems noted. Daughter In good health Maternal Grandmother DM (diabetes mellitus) Stroke Family history: reviewed and not pertinent Surgical History Surgical History History of eye surgery 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 History of tonsillectomy and adenoidectomy Hx laparoscopic cholecystectomy S/P cataract surgery S/P debridement S/P tooth extraction Status post amputation of toe Social History Social History Household Members: None Housing: Apartment Do you presently have visiting nurse or other home services: Yes (daughter is SR. SOCIAL MEDIA & MOBILE MANAGER) Alcohol intake: never Patient Tobacco Use Status: Never used Tobacco e-Cigarette/Vaping Use: Never Used Second Hand Smoke Exposure: No Substance Use Type: Marijuana service: No Current occupational status: disabled
--- NOTE | 2021-05-28 18:52 | PM.PNNEP ---
Subjective Subjective Date of Service: 06/01/21 Principal diagnosis: vanessa Interval history: This history was taken in Ugandan from the patient. No fever. Pain of R foot improved. Physical Exam Vital Signs: Vital Signs: Last Vital Signs Temp 97 F 05/28/21 16:00 Pulse 84 05/28/21 16:00 Resp 18 05/28/21 16:00 BP 142/65 H 05/28/21 16:00 Pulse Ox 99 05/28/21 16:00 BMI result Body Mass Index 34.1 Const: General: cooperative Orientation/consciousness: oriented to person Neck: Neck: Yes supple Resp: Effort & Inspection: no respiratory distress Auscultation: clear to auscultation bilaterally Cardio: Jugular venous distension: no JVD Palpation: no palpable S3 Heart sounds: S2 abnormal and no gallops GI: Inspection: Yes normal to inspection Palpation (GI): Soft to palpation Neuro: General: oriented to person Motor exam (neuro): no asterixis Extrem: General: Yes normal to inspection Right upper extremity: edema (1+) Objective Data Labs CBC & Chem 7: 05/30/21 03:52 05/31/21 05:20 Labs: Laboratory Results - last 24 hr 05/27/21 05/28/21 05/28/21 22:39 05:23 07:29 Sodium 137 Potassium 5.3 H Chloride 109 H Carbon Dioxide 24 Anion Gap 9 L BUN 74 H Creatinine 3.20 H Estim Creat Clear Calc 27.0 Estimated GFR 20 POC Glucose 180 H 231 H Fasting Glucose 227 H Calcium 8.1 L Total Bilirubin 0.4 AST 128 H ALT 246 H Alkaline Phosphatase 75 C-Reactive Protein 0.52 H Total Protein 6.8 Albumin 2.9 L 05/28/21 05/28/21 11:33 16:45 Sodium Potassium Chloride Carbon Dioxide Anion Gap BUN Creatinine Estim Creat Clear Calc Estimated GFR POC Glucose 201 H 234 H Fasting Glucose Calcium Total Bilirubin AST ALT Alkaline Phosphatase C-Reactive Protein Total Protein Albumin Microbiology Microbiology Results: Microbiology 05/11/21 14:41 Blood - Venous Blood Culture - Final Corynebacterium species 05/11/21 15:36 Blood - Venous Blood Culture - Final No growth after 5 days. 05/11/21 14:41 Foot Right Gram Stain - Final 05/11/21 14:41 Foot Right Routine Culture - Final Staphylococcus aureus Strep agalactiae (Grp B) Procedures Date of Service Date of Service: 05/28/21 Assessment & Plan Assessment and plan (1) CKD stage G3b/A2, GFR 30-44 and albumin creatinine ratio 30-299 mg/g: Status: Acute (2) VANESSA (acute kidney injury): Status: Acute Assessment and Plan: VANESSA superimposed on CKD Underlying diabetic nephropathy Creatinine essentially unchanged Hyperkalemia add Lokelma 10 gm No ss of uremia No absolute indication for biopsy Time Spent With Patient Time: Total time spent is greater than 50% in coordination of care (as documented) at patient's floor/unit and/or counseling patient: Time with patient: 15 - 24 minutes Progress Note: Quality Stroke Does the patient have a stroke diagnosis?: No
[2021-05-28 20:00] VITALS: BP 161/72; PULSE 81; RESP 18; TEMP 36.3; O2SAT 99
[2021-05-28 20:39] LABS: Glucose, Whole Blood 252 mg/dL (60-115)
[2021-05-29] VITALS (7 sets, daily range): BP systolic 130–173; BP diastolic 54–73; PULSE 70–98; RESP 17–20; TEMP 36.1–36.8; O2SAT 97–100
[2021-05-29] MEDS: ondansetron HCL 4 MG/2 ML VIAL IVPUSH (00:10)
[2021-05-29] MEDS: Heparin Sodium,Porcine 5,000 UNIT/ML VIAL 5000 UNIT SUBCUT ×2 (05:25→18:08)
[2021-05-29 06:35] LABS: Hematocrit 26.3 % (42.0-52.0); Hemoglobin 8.3 g/dl (14.0-18.0); Mean Corpuscular HGB Conc 31.6 g/dl (31.0-36.0); Mean Corpuscular Hemoglobin 28.6 pg (27.0-33.0); Mean Corpuscular Volume 90.7 fL (80.0-98.0); Mean Platelet Volume 9.4 fL (9.4-12.4); Platelet Count 548 X10*3/uL (160-400); Red Cell Distribution Width 16.4 % (11.0-16.0); White Blood Count 12.8 X10*3/uL (4.8-10.8)
[2021-05-29 06:48] LABS: Alanine Aminotransferase 237 U/L (0-40); Albumin Level 3.4 g/dL (3.5-5.0); Alkaline Phosphatase 80 U/L (39-117); Anion Gap 13 (12-20); Aspartate Amino Transferase 109 U/L (5-37); Bilirubin Total 0.4 mg/dL (0.0-1.0); Blood Urea Nitrogen 69 mg/dL (9-16); Calcium 8.9 mg/dL (8.4-10.2); Carbon Dioxide 25 mmol/L (22-29); Chloride 105 mmol/L (96-108); Creatinine Clr Calc Pharmacy 28.8; Estimated Glomerular Filt Rate 22; Glucose Random 215 mg/dL (60-115); Potassium 5.9 mmol/L (3.3-5.1); Sodium 137 mmol/L (135-145); Total Protein 7.8 g/dL (6.5-8.0)
[2021-05-29 07:46] LABS: Glucose, Whole Blood 195 mg/dL (60-115)
[2021-05-29 08:22] LABS: Erythrocyte Sedimentation Rate 108 MM/HR (0-15)
[2021-05-29] MEDS: Insulin Lispro 100 UNIT/ML 3 ML VIAL SUBCUT ×3 (08:42→22:22)
[2021-05-29] MEDS: Gabapentin 300 MG CAPSULE PO ×2 (08:43→14:16)
[2021-05-29] MEDS: Sodium Zirconium Cyclosilicate 10 GM POWD.PACK PO ×3 (08:43→22:21)
[2021-05-29] MEDS: polyethylene glycoL 3350 17 GM POWD.PACK PO (08:43)
[2021-05-29 11:38] LABS: Glucose, Whole Blood 187 mg/dL (60-115)
--- NOTE | 2021-05-29 12:11 | HO.PM.IMPN ---
Subjective Subjective Date of Service: 05/29/21 Interval History: C/o foot pain No fever K higher today Review of Systems Review of Systems: Yes all other systems are reviewed and are negative Physical Exam Vital Signs: Vital Signs: Last Vital Signs Temp 96.9 F 05/29/21 08:00 Pulse 92 05/29/21 08:00 Resp 18 05/29/21 08:00 BP 154/65 H 05/29/21 08:00 Pulse Ox 100 05/29/21 08:00 BMI result Body Mass Index 34.1 Gen: in no acute distress HEENT: sclera anicteric, moist mucus membranes Neck: supple, R Antunez catheter without signs of infection Lungs: clear to auscultation bilaterally Heart: regular rate and rhythm, no murmurs Abd: soft, non-tender, non-distended Ext: no edema Skin: warm/well-perfused, R plantar deep ulcer at head of 2nd metatarsal with minimal drainage Neuro: alert and oriented x3 Psych: appropriate affect Objective Data Active Medications Acetaminophen (Acetaminophen 325 Mg Tablet) 650 mg PO Q6H PRN PRN Reason: Pain, Mild (Pain Scale 1-3) Last Admin: 05/27/21 03:35 Dose: 650 mg Documented by: KATHIE Dextrose (Dextrose 50 % 25 Gm/50 Ml Vial) 25 gm IVPUSH Q15M PRN; Protocol PRN Reason: per Hypoglycemia Standing Ord. Gabapentin (Gabapentin 300 Mg Capsule) 300 mg PO TID [facility] Last Admin: 05/29/21 08:43 Dose: 300 mg Documented by: CLARITA Glucose (Glucose Gel 15 Gm Gel..Gram.) 15 gm PO Q15M PRN; Protocol PRN Reason: per Hypoglycemia Standing Ord. Heparin Sodium (Porcine) (Heparin Sodium,Porcine 5,000 Unit/Ml Vial) 5,000 unit SUBCUT Q12H [facility] Last Admin: 05/29/21 05:25 Dose: 5,000 unit Documented by: ANUJ Meropenem 1 gm/ Sodium (Chloride) 100 mls @ 100 mls/hr IV Q8H [facility] Last Infusion: 05/29/21 10:00 Dose: 100 mls/hr Documented by: CLARITA Insulin Human Lispro (Insulin Lispro 100 Unit/Ml 3 Ml Vial) 0 unit SUBCUT QIDACHS [facility]; Protocol Last Admin: 05/29/21 12:01 Dose: 2 unit Documented by: ALANA Insulin Pump (Subcutaneous Insulin Pump) 1 each SUBCUT QIDACHS [facility]; Protocol Last Admin: 05/29/21 12:01 Dose: Not Given Documented by: ALANA Non-Admin Reason: Med Not Available Ondansetron HCl (Ondansetron Hcl 4 Mg/2 Ml Vial) 4 mg IVPUSH Q8H PRN PRN Reason: Nausea and Vomiting Last Admin: 05/29/21 00:10 Dose: 4 mg Documented by: ANUJ Pharmacy Consult (Consult Rx Perform Med Rec) 1 each MISCELLANE ONCE PRN PRN Reason: Consult order Polyethylene Glycol (Polyethylene Glycol 3350 17 Gm Powd.Pack) 17 gm PO DAILY [facility] Last Admin: 05/29/21 08:43 Dose: 17 gm Documented by: CLARITA Sodium Chloride (0.9 % Sodium Chloride Flush 3 Ml Syringe) 3 ml IVFLUSH QSHIFT [facility] Last Admin: 05/28/21 21:46 Dose: 3 ml Documented by: MILADY Sodium Zirconium Cyclosilicate (Sodium Zirconium Cyclosilicate 10 Gm Powd.Pack) 10 gm PO DAILY [facility] Last Admin: 05/28/21 07:47 Dose: 10 gm Documented by: PO Sodium Zirconium Cyclosilicate (Sodium Zirconium Cyclosilicate 10 Gm Powd.Pack) 10 gm PO TID [facility] Stop: 05/30/21 21:01 Last Admin: 05/29/21 08:43 Dose: 10 gm Documented by: CLARITA Trazodone HCl (Trazodone Hcl 50 Mg Tablet) 150 mg PO BEDTIME [facility] Last Admin: 05/28/21 21:48 Dose: Not Given Documented by: MILADY Non-Admin Reason: Patient Refused Labs CBC & Chem 7: 05/29/21 05:39 05/29/21 05:39 Labs: Laboratory Results - last 24 hr 05/28/21 05/28/21 05/29/21 16:45 20:28 05:39 MCV 90.7 MCH 28.6 MCHC 31.6 RDW 16.4 H Plt Count 548 H MPV 9.4 Absolute Nucleated RBC 0.000 Nucleated RBC % (auto) 0.0 ESR Anion Gap Estim Creat Clear Calc Estimated GFR POC Glucose 234 H 252 H Random Glucose Calcium Total Bilirubin AST ALT Alkaline Phosphatase Total Protein Albumin 05/29/21 05/29/21 05/29/21 05:39 05:39 07:39 MCV MCH MCHC RDW Plt Count MPV Absolute Nucleated RBC Nucleated RBC % (auto) ESR 108 H Anion Gap 13 Estim Creat Clear Calc 28.8 Estimated GFR 22 POC Glucose 195 H Random Glucose 215 H Calcium 8.9 D Total Bilirubin 0.4 AST 109 H ALT 237 H Alkaline Phosphatase 80 Total Protein 7.8 Albumin 3.4 L 05/29/21 11:33 MCV MCH MCHC RDW Plt Count MPV Absolute Nucleated RBC Nucleated RBC % (auto) ESR Anion Gap Estim Creat Clear Calc Estimated GFR POC Glucose 187 H Random Glucose Calcium Total Bilirubin AST ALT Alkaline Phosphatase Total Protein Albumin Assessment and Plan (1) Drug-induced liver injury: Status: Acute (2) Transaminitis: Status: Acute (3) CKD stage G3b/A2, GFR 30-44 and albumin creatinine ratio 30-299 mg/g: Status: Acute (4) Osteomyelitis: Status: Acute Assessment and Plan: hospital d#18 56yo M with DM2 admitted with osteomyelitis of neck of 2nd metatarsal with pathologic fracture # DM osteomyelitis/infected DM foot infection - on d#17 of ABX- was initially on pip/gracia but d/c'ed secondary to possible liver injury- now on meropenem with plan to transition to ertapenem upon discharge. Blood cultures negative, wound cultures with MSSA + GBS - ID + gen surg following - arterial dopplers pending # transaminitis - ?pip/gracia-induced injury on background of fatty liver - continue to monitor LFTs- improving # CKD3-4 # hyperK - continue low-potassium diet, Lokelma 10 mg tid x 6 doses then resume 10 mg daily - outpt Nephrology f/u - protect arms for future HD risk; had Antunez placed 05/13/21 # DM2 - resume home insulin pump # neuropathy - gabapentin # NEEMA - CPAP at night # VTE ppx - UFH # dispo - eventual home with VNA but difficulty finding infusion company due to hx inhalation cocaine use though none in over 2 mo. He has never injected drugs and is committed to sobriety. Please refer to consult by graphic specialist TRINO Dumont Quality Stroke Does the patient have a stroke diagnosis?: No VTE Prior VTE?: No VTE Risk Level:: Medical - moderate - high VTE Device Contraindication: Treatment Not Indicated VTE Drug Contraindication: N/A - Med Ordered
--- NOTE | 2021-05-29 16:50 | P.PNNP_ITS ---
Subjective Subjective Date of Service: 05/29/21 Principal diagnosis: vanessa Interval history: C/o foot pain No fever K higher today Physical Exam Vital Signs: Vital Signs: Last Vital Signs Temp 98.2 F 05/29/21 16:00 Pulse 81 05/29/21 16:00 Resp 18 05/29/21 16:00 BP 152/65 H 05/29/21 16:00 Pulse Ox 100 05/29/21 16:00 BMI result Body Mass Index 34.1 Const: General: cooperative Orientation/consciousness: oriented to person Neck: Neck: Yes supple Resp: Effort & Inspection: no respiratory distress Auscultation: clear to auscultation bilaterally Cardio: Jugular venous distension: no JVD Palpation: no palpable S3 Heart sounds: S2 abnormal and no gallops GI: Inspection: Yes normal to inspection Palpation (GI): Soft to palpation Neuro: General: oriented to person Motor exam (neuro): no asterixis Extrem: General: Yes normal to inspection Right upper extremity: edema (1+) Objective Data Labs CBC & Chem 7: 05/29/21 05:39 05/29/21 05:39 Labs: Laboratory Results - last 24 hr 05/28/21 05/28/21 05/29/21 16:45 20:28 05:39 WBC 12.8 H RBC 2.90 L Hgb 8.3 L Hct 26.3 L MCV 90.7 MCH 28.6 MCHC 31.6 RDW 16.4 H Plt Count 548 H MPV 9.4 Absolute Nucleated RBC 0.000 Nucleated RBC % (auto) 0.0 ESR Sodium Potassium Chloride Carbon Dioxide Anion Gap BUN Creatinine Estim Creat Clear Calc Estimated GFR POC Glucose 234 H 252 H Random Glucose Calcium Total Bilirubin AST ALT Alkaline Phosphatase Total Protein Albumin 05/29/21 05/29/21 05/29/21 05:39 05:39 07:39 WBC RBC Hgb Hct MCV MCH MCHC RDW Plt Count MPV Absolute Nucleated RBC Nucleated RBC % (auto) ESR 108 H Sodium 137 Potassium 5.9 H Chloride 105 Carbon Dioxide 25 Anion Gap 13 BUN 69 H Creatinine 3.00 H Estim Creat Clear Calc 28.8 Estimated GFR 22 POC Glucose 195 H Random Glucose 215 H Calcium 8.9 D Total Bilirubin 0.4 AST 109 H ALT 237 H Alkaline Phosphatase 80 Total Protein 7.8 Albumin 3.4 L 05/29/21 11:33 WBC RBC Hgb Hct MCV MCH MCHC RDW Plt Count MPV Absolute Nucleated RBC Nucleated RBC % (auto) ESR Sodium Potassium Chloride Carbon Dioxide Anion Gap BUN Creatinine Estim Creat Clear Calc Estimated GFR POC Glucose 187 H Random Glucose Calcium Total Bilirubin AST ALT Alkaline Phosphatase Total Protein Albumin Microbiology Microbiology Results: Microbiology 05/11/21 14:41 Blood - Venous Blood Culture - Final Corynebacterium species 05/11/21 15:36 Blood - Venous Blood Culture - Final No growth after 5 days. 05/11/21 14:41 Foot Right Gram Stain - Final 05/11/21 14:41 Foot Right Routine Culture - Final Staphylococcus aureus Strep agalactiae (Grp B) Procedures Date of Service Date of Service: 05/29/21 Assessment & Plan Assessment and plan (1) CKD stage G3b/A2, GFR 30-44 and albumin creatinine ratio 30-299 mg/g: Status: Acute (2) VANESSA (acute kidney injury): Status: Acute Assessment and Plan: VANESSA superimposed on CKD Underlying diabetic nephropathy Creatinine essentially unchanged Hyperkalemia add Lokelma 10 gm daily No ss of uremia No absolute indication for biopsy Time Spent With Patient Time: Total time spent is greater than 50% in coordination of care (as documente d) at patient's floor/unit and/or counseling patient: Time with patient: 15 - 24 minutes Progress Note: Quality Stroke Does the patient have a stroke diagnosis?: No
[2021-05-29 17:05] LABS: Glucose, Whole Blood 124 mg/dL (60-115)
[2021-05-29] MEDS: 0.9 % Sodium Chloride Flush 3 ML SYRINGE IVFLUSH (18:09)
[2021-05-29 20:31] LABS: Glucose, Whole Blood 180 mg/dL (60-115)
[2021-05-29] MEDS: traZODone HCL 50 MG TABLET 150 MG PO (22:21)
--- NOTE | 2021-05-29 22:58 | PC.NURSE ---
unable to administer Gabapentin sice scheduled at the same time with Kierra ,gabapentin to be administered at 0020,11-7 RN aware
[2021-05-30] VITALS: BP 138/62; PULSE 68; RESP 17; TEMP 36.4; O2SAT 95
--- NOTE | 2021-05-30 | ECG_ITS ---
Test Reason : chest pain Blood Pressure : / mmHG Vent. Rate : 079 BPM Atrial Rate : 079 BPM P-R Int : 146 ms QRS Dur : 092 ms QT Int : 390 ms P-R-T Axes : 058 026 026 degrees QTc Int : 447 ms Normal sinus rhythm Normal ECG When compared with ECG of 24-APR-2020 12:55, No significant change was found Referred By: Dylon [facility] Electronically Signed By:FILOMENA MEZA MD
[2021-05-30 01:59] LABS: Glucose, Whole Blood 149 mg/dL (60-115)
[2021-05-30 03:45] VITALS: BP 173/73; PULSE 83; RESP 17; TEMP 36.7; O2SAT 96
[2021-05-30 04:47] LABS: Hematocrit 25.8 % (42.0-52.0); Hemoglobin 8.1 g/dl (14.0-18.0); Mean Corpuscular HGB Conc 31.4 g/dl (31.0-36.0); Mean Corpuscular Hemoglobin 28.5 pg (27.0-33.0); Mean Corpuscular Volume 90.8 fL (80.0-98.0); Mean Platelet Volume 9.2 fL (9.4-12.4); Platelet Count 563 X10*3/uL (160-400); Red Blood Count 2.84 X10*6/uL (4.60-5.80); Red Cell Distribution Width 17.1 % (11.0-16.0); White Blood Count 14.3 X10*3/uL (4.8-10.8)
--- NOTE | 2021-05-30 05:04 | PC.NURSE ---
PATIENT AWAKENED FOR SCHEDULED IVABX AND NOTED TO BE SOMEWHAT CONFUSED, COLOR PALE, TRIED TO STAND AND VERY WEAK AND KNEES BUCKLING. MAX ASSIST BACK TO SIT ON BED EDGE AND UPPER BODY SHAKING NOTED. POLISH SPEAKING STAFF TO ROOM AND PT STATED TO FEEL LIKE EVERYTHING IS MOVING SLOW . BLOOD SUGAR CHECK AND RESULTS 149. PATIENT SLOW TO ANSWER AND OFFERING NO COMPLAINTS OF CHEST PAIN OR PRESSURE. HE DENIED HEADACHE, BUT FELT LITTLE DIZZY. VITALS 149/[id number] WITH O2 SAT OF 96% ROOM AIR. HOSPITALIST ALERTED TO CHANGE AND CAME TO UNIT TO EVAL PATIENT. EKG, LABWORK, AND CT SCAN OF THE HEAD ALL ORDERED AND CARRIED OUT. CT SCAN NOTED NO ACUTE FINDINGS, EKG REVEALED NSR. NURSING TRANSPORTATION ENGINEER TRANSPORTED PT TO CT SCAN VIA WHEELCHAIR WITH SAFE RETURN 0330. BED ALARM HAD BEEN ACTIVATED EARLIER FOR SAFETY AND NOW PATIENT ANNOYED AND REFUSING ITS USE. CLOSE SUPERVISION TO BR TO VOID AND PATIENT MORE ANNOYED WITH STAFF AT CLOSE PROXIMETY. MD BACK TO SEE PATIENT AND UPDATED THAT PT IS MORE AWAKE AT THIS TIME BUT NOT VERY HAPPY. WILL MONITOR CLOSELY, WATCH FOR LAB VALUES, AND REINFORCE SAFETY MEASURES.
[2021-05-30 05:06] LABS: Troponin-I High Sensitivity 4.3 ng/L (<3.5-35.0)
[2021-05-30 05:07] LABS: Alanine Aminotransferase 179 U/L (0-40); Albumin Level 3.5 g/dL (3.5-5.0); Alkaline Phosphatase 83 U/L (39-117); Anion Gap 16 (12-20); Aspartate Amino Transferase 61 U/L (5-37); Bilirubin Total 0.4 mg/dL (0.0-1.0); Blood Urea Nitrogen 66 mg/dL (9-16); Calcium 8.7 mg/dL (8.4-10.2); Carbon Dioxide 22 mmol/L (22-29); Chloride 107 mmol/L (96-108); Estimated Glomerular Filt Rate 23; Glucose Random 142 mg/dL (60-115); Potassium 4.8 mmol/L (3.3-5.1); Sodium 140 mmol/L (135-145); Total Protein 7.5 g/dL (6.5-8.0)
--- NOTE | 2021-05-30 06:48 | PM.EVENT ---
Event Note Date of Service: 05/30/21 Event Note: had some episode of twicthing movment, slow to respon lethargic, he thought it was due to lokelma. CT head, labs ok. I think it may be related to Gabapentin in light renal failure. On reevaluation he seemed better, no focal neuro deficits
[2021-05-30 07:25] VITALS: BP 155/74; PULSE 85; RESP 18; TEMP 36.2; O2SAT 99
[2021-05-30 07:56] LABS: Glucose, Whole Blood 150 mg/dL (60-115)
[2021-05-30] MEDS: polyethylene glycoL 3350 17 GM POWD.PACK PO (09:35)
[2021-05-30] MEDS: Gabapentin 100 MG CAPSULE 200 MG PO ×3 (09:35→20:16)
[2021-05-30] MEDS: Sodium Zirconium Cyclosilicate 10 GM POWD.PACK PO ×3 (09:36→20:17)
[2021-05-30] MEDS: 0.9 % Sodium Chloride Flush 3 ML SYRINGE IVFLUSH (09:38)
[2021-05-30] MEDS: Subcutaneous Insulin Pump 1 EACH SUBCUT ×3 (09:39→20:18)
[2021-05-30 11:46] VITALS: BP 150/67; PULSE 91; RESP 18; TEMP 36.4; O2SAT 99
--- NOTE | 2021-05-30 11:53 | PM.PNNEP ---
Subjective Subjective Date of Service: 06/01/21 Principal diagnosis: vanessa Interval history: Events noted Feels better Physical Exam Vital Signs: Vital Signs: Last Vital Signs Temp 97.6 F 05/30/21 11:46 Pulse 91 05/30/21 11:46 Resp 18 05/30/21 11:46 BP 150/67 H 05/30/21 11:46 Pulse Ox 99 05/30/21 11:46 BMI result Body Mass Index 34.1 Const: General: cooperative Orientation/consciousness: oriented to person Neck: Neck: Yes supple Resp: Effort & Inspection: no respiratory distress Auscultation: clear to auscultation bilaterally Cardio: Jugular venous distension: no JVD Palpation: no palpable S3 Heart sounds: S2 abnormal and no gallops GI: Inspection: Yes normal to inspection Palpation (GI): Soft to palpation Neuro: General: oriented to person Motor exam (neuro): no asterixis Extrem: General: Yes normal to inspection Right upper extremity: edema (1+) Objective Data Labs CBC & Chem 7: 05/30/21 03:52 05/31/21 05:20 Labs: Laboratory Results - last 24 hr 05/29/21 05/29/21 05/30/21 16:51 20:17 01:55 WBC RBC Hgb Hct MCV MCH MCHC RDW Plt Count MPV Absolute Nucleated RBC Nucleated RBC % (auto) Sodium Potassium Chloride Carbon Dioxide Anion Gap BUN Creatinine Estim Creat Clear Calc Estimated GFR POC Glucose 124 H 180 H 149 H Random Glucose Calcium Total Bilirubin AST ALT Alkaline Phosphatase Troponin I High Sens Total Protein Albumin 05/30/21 05/30/21 05/30/21 03:52 03:52 03:52 WBC 14.3 H RBC 2.84 L Hgb 8.1 L Hct 25.8 L MCV 90.8 MCH 28.5 MCHC 31.4 RDW 17.1 H Plt Count 563 H MPV 9.2 L Absolute Nucleated RBC 0.000 Nucleated RBC % (auto) 0.0 Sodium 140 Potassium 4.8 Chloride 107 Carbon Dioxide 22 Anion Gap 16 BUN 66 H Creatinine 2.88 H Estim Creat Clear Calc 30.0 Estimated GFR 23 POC Glucose Random Glucose 142 H Calcium 8.7 Total Bilirubin 0.4 AST 61 H ALT 179 H Alkaline Phosphatase 83 Troponin I High Sens 4.3 Total Protein 7.5 Albumin 3.5 05/30/21 07:29 WBC RBC Hgb Hct MCV MCH MCHC RDW Plt Count MPV Absolute Nucleated RBC Nucleated RBC % (auto) Sodium Potassium Chloride Carbon Dioxide Anion Gap BUN Creatinine Estim Creat Clear Calc Estimated GFR POC Glucose 150 H Random Glucose Calcium Total Bilirubin AST ALT Alkaline Phosphatase Troponin I High Sens Total Protein Albumin Microbiology Microbiology Results: Microbiology 05/11/21 14:41 Blood - Venous Blood Culture - Final Corynebacterium species 05/11/21 15:36 Blood - Venous Blood Culture - Final No growth after 5 days. 05/11/21 14:41 Foot Right Gram Stain - Final 05/11/21 14:41 Foot Right Routine Culture - Final Staphylococcus aureus Strep agalactiae (Grp B) Procedures Date of Service Date of Service: 05/30/21 Assessment & Plan Assessment and plan (1) CKD stage G3b/A2, GFR 30-44 and albumin creatinine ratio 30-299 mg/g: Status: Acute (2) VANESSA (acute kidney injury): Status: Acute Assessment and Plan: VANESSA superimposed on CKD Underlying diabetic nephropathy Creatinine is better today Hyperkalemia Lokelma 10 gm daily No ss of uremia No absolute indication for biopsy Time Spent With Patient Time: Total time spent is greater than 50% in coordination of care (as documented) at patient's floor/unit and/or counseling patient: Time with patient: 15 - 24 minutes Progress Note: Quality Stroke Does the patient have a stroke diagnosis?: No
--- NOTE | 2021-05-30 12:11 | HO.PM.IMPN ---
Subjective Subjective Date of Service: 05/30/21 Interval History: This history was taken in Slovak from the patient. Foot pain improved Had some twitching overnight and was somewhat lethargic but arousable. CT negative Review of Systems Review of Systems: Yes all other systems are reviewed and are negative Physical Exam Vital Signs: Vital Signs: Last Vital Signs Temp 97.6 F 05/30/21 11:46 Pulse 91 05/30/21 11:46 Resp 18 05/30/21 11:46 BP 150/67 H 05/30/21 11:46 Pulse Ox 99 05/30/21 11:46 BMI result Body Mass Index 34.1 Gen: in no acute distress HEENT: sclera anicteric, moist mucus membranes Neck: supple, R Antunez catheter without signs of infection Lungs: clear to auscultation bilaterally Heart: regular rate and rhythm, no murmurs Abd: soft, non-tender, non-distended Ext: no edema Skin: warm/well-perfused, R plantar deep ulcer at head of 2nd metatarsal with minimal drainage Neuro: alert and oriented x3 Psych: appropriate affect Objective Data Active Medications Acetaminophen (Acetaminophen 325 Mg Tablet) 650 mg PO Q6H PRN PRN Reason: Pain, Mild (Pain Scale 1-3) Last Admin: 05/27/21 03:35 Dose: 650 mg Documented by: KATHIE Dextrose (Dextrose 50 % 25 Gm/50 Ml Vial) 25 gm IVPUSH Q15M PRN; Protocol PRN Reason: per Hypoglycemia Standing Ord. Gabapentin (Gabapentin 100 Mg Capsule) 200 mg PO TID [facility] Last Admin: 05/30/21 09:35 Dose: 200 mg Documented by: SAGE Glucose (Glucose Gel 15 Gm Gel..Gram.) 15 gm PO Q15M PRN; Protocol PRN Reason: per Hypoglycemia Standing Ord. Heparin Sodium (Porcine) (Heparin Sodium,Porcine 5,000 Unit/Ml Vial) 5,000 unit SUBCUT Q12H [facility] Last Admin: 05/30/21 06:21 Dose: Not Given Documented by: ANUJ Non-Admin Reason: Patient Refused Meropenem 1 gm/ Sodium (Chloride) 100 mls @ 100 mls/hr IV Q8H [facility] Last Infusion: 05/30/21 10:51 Dose: 100 mls/hr Documented by: SAGE Insulin Human Lispro (Insulin Lispro 100 Unit/Ml 3 Ml Vial) 0 unit SUBCUT QIDAS [facility]; Protocol Last Admin: 05/30/21 12:02 Dose: Not Given Documented by: SAGE Non-Admin Reason: No Insulin Coverage Insulin Pump (Subcutaneous Insulin Pump) 1 each SUBCUT QIDACHS [facility]; Protocol Last Admin: 05/30/21 12:07 Dose: 1 each Documented by: SAGE Comments: PT MANAGEING PUMP Morphine Sulfate (Morphine Sulfate 2 Mg/Ml Cartridge) 2 mg IVPUSH Q2H PRN; Protocol PRN Reason: severe pain Ondansetron HCl (Ondansetron Hcl 4 Mg/2 Ml Vial) 4 mg IVPUSH Q8H PRN PRN Reason: Nausea and Vomiting Last Admin: 05/29/21 00:10 Dose: 4 mg Documented by: ANUJ Oxycodone HCl (Oxycodone Hcl Immed Release 5 Mg Tablet) 5 mg PO Q4H PRN PRN Reason: moderate pain Pharmacy Consult (Consult Rx Perform Med Rec) 1 each MISCELLANE ONCE PRN PRN Reason: Consult order Polyethylene Glycol (Polyethylene Glycol 3350 17 Gm Powd.Pack) 17 gm PO DAILY [facility] Last Admin: 05/30/21 09:35 Dose: 17 gm Documented by: SAGE Sodium Chloride (0.9 % Sodium Chloride Flush 3 Ml Syringe) 3 [facility] Last Admin: 05/30/21 09:38 Dose: 3 ml Documented by: SAGE Sodium Zirconium Cyclosilicate (Sodium Zirconium Cyclosilicate 10 Gm Powd.Pack) 10 gm PO DAILY [facility] Last Admin: 05/28/21 07:47 Dose: 10 gm Documented by: PO Sodium Zirconium Cyclosilicate (Sodium Zirconium Cyclosilicate 10 Gm Powd.Pack) 10 gm PO TID [facility] Stop: 05/30/21 21:01 Last Admin: 05/30/21 09:36 Dose: 10 gm Documented by: SAGE Trazodone HCl (Trazodone Hcl 50 Mg Tablet) 150 mg PO BEDTIME [facility] Last Admin: 05/29/21 22:21 Dose: 150 mg Documented by: MICHAIT Labs CBC & Chem 7: 05/30/21 03:52 05/30/21 03:52 Labs: Laboratory Results - last 24 hr 05/29/21 05/29/21 05/30/21 16:51 20:17 01:55 MCV MCH MCHC RDW Plt Count MPV Absolute Nucleated RBC Nucleated RBC % (auto) Anion Gap Estim Creat Clear Calc Estimated GFR POC Glucose 124 H 180 H 149 H Random Glucose Calcium Total Bilirubin AST ALT Alkaline Phosphatase Troponin I High Sens Total Protein Albumin 05/30/21 05/30/21 05/30/21 03:52 03:52 03:52 MCV 90.8 MCH 28.5 MCHC 31.4 RDW 17.1 H Plt Count 563 H MPV 9.2 L Absolute Nucleated RBC 0.000 Nucleated RBC % (auto) 0.0 Anion Gap 16 Estim Creat Clear Calc 30.0 Estimated GFR 23 POC Glucose Random Glucose 142 H Calcium 8.7 Total Bilirubin 0.4 AST 61 H ALT 179 H Alkaline Phosphatase 83 Troponin I High Sens 4.3 Total Protein 7.5 Albumin 3.5 05/30/21 07:29 MCV MCH MCHC RDW Plt Count MPV Absolute Nucleated RBC Nucleated RBC % (auto) Anion Gap Estim Creat Clear Calc Estimated GFR POC Glucose 150 H Random Glucose Calcium Total Bilirubin AST ALT Alkaline Phosphatase Troponin I High Sens Total Protein Albumin Impressions Duplex Scan Lower Extremity Artery 05/29/21 15:30 IMPRESSION: 1. Mild to moderate stenosis by velocity in the bilateral common femoral arteries as well as in the mid to distal right superficial femoral arteries and right popliteal artery. Velocities are greatest in the distal segment of the right superficial femoral artery. 2. Enlarged lymph nodes bilaterally demonstrate benign features and are likely reactive. This correlates with previous CT findings. Head CT 05/30/21 03:26 IMPRESSION: No acute intracranial pathology. Assessment and Plan (1) Drug-induced liver injury: Status: Acute (2) Transaminitis: Status: Acute (3) CKD stage G3b/A2, GFR 30-44 and albumin creatinine ratio 30-299 mg/g: Status: Acute (4) Osteomyelitis: Status: Acute Assessment and Plan: hospital d#19 56yo M with DM2 admitted with osteomyelitis of neck of 2nd metatarsal with pathologic fracture # DM osteomyelitis/infected DM foot infection - on d#18 of ABX- was initially on pip/gracia but d/c'ed secondary to possible liver injury- now on meropenem with plan to transition to ertapenem upon discharge. Blood cultures negative, wound cultures with MSSA + GBS - ID + Gen Surg consulted # PAD - mild-mod disease on arterial dopplers; will consult Vasc Surg # transaminitis - ?pip/gracia-induced injury on background of fatty liver - continue to monitor LFTs- improving # twitching movements - likely excess gabapentin; decreased dose from 900 mg/d to 600 mg/d given CrCl around 30 # CKD3-4 # hyperK, resolved - continue low-potassium diet, Lokelma 10 mg/d - outpt Nephrology f/u - protect arms for future HD risk; had Antunez placed 05/13/21 # DM2 - resumed home insulin pump # neuropathy - gabapentin # NEEMA - CPAP at night # VTE ppx - UFH # dispo - planl home with VNA but difficulty finding infusion company due to hx inhalation cocaine use though none in over 2 mo. He has never injected drugs and is committed to sobriety. Please refer to consult by biochemistry specialist TIRNO Dumont Quality Stroke Does the patient have a stroke diagnosis?: No VTE Prior VTE?: No VTE Risk Level:: Medical - moderate - high VTE Device Contraindication: Treatment Not Indicated VTE Drug Contraindication: N/A - Med Ordered
[2021-05-30 12:13] LABS: Glucose, Whole Blood 112 mg/dL (60-115)
--- NOTE | 2021-05-30 12:21 | MHC.CARE ---
CARE Team met with Lithuanian speaking patient in room 378 with the assistance of clinical specialist medical device. He was on the phone with his daughter but politely ended the call to engage in conversation. Patient stated several times that he felt judged and dismissed by the staff due admitting past cocaine use. Was animated in explaining his perception of the situation, said he has never hurt anyone, always helpful to others, a good parent and partner, has never been in trouble yet feels as though he is treated as less-than by others. Patient stated he feels he only can tolerate one or two more days of being here, wants to go home and have treatment if possible said he hopes they can find a solution soon as he is losing his patience and does not want to say something regretful. He added that he was speaking to his daughter about making a Will because he is worried he will in the next 2-3 years. Provided supportive listening, validation, encouragement which patient reported to appreciate someone listening to his concerns. Advised patient that he can speak to a clinician anytime throughout the day or evening. Updated RN and JAIMIE
--- NOTE | 2021-05-30 13:07 | PC.NURSE ---
PT MANAGING INSULIN PUMP 0800 BLOOD SUGAR 150 BOLUS 6.35 UNITS 1200 BLOOD SUGAR 112 4.25 UNITS BOLUS PT HAS BASAL RATE OF 1UNIT PER HOUR
[2021-05-30 15:50] VITALS: BP 153/69; PULSE 78; RESP 18; TEMP 36.7; O2SAT 97
[2021-05-30 16:07] LABS: Glucose, Whole Blood 128 mg/dL (60-115)
[2021-05-30] MEDS: Heparin Sodium,Porcine 5,000 UNIT/ML VIAL 5000 UNIT SUBCUT (18:45)
[2021-05-30 19:39] VITALS: BP 173/70; PULSE 89; RESP 18; TEMP 36.7; O2SAT 100
[2021-05-30 19:56] LABS: Glucose, Whole Blood 177 mg/dL (60-115)
[2021-05-31] VITALS: BP 119/58; PULSE 75; RESP 18; TEMP 36.4; O2SAT 94
[2021-05-31] MEDS: 0.9 % Sodium Chloride Flush 3 ML SYRINGE IVFLUSH ×3 (00:24→15:12)
[2021-05-31 04:00] VITALS: BP 134/63; PULSE 80; RESP 18; TEMP 36.6; O2SAT 97
[2021-05-31] MEDS: Heparin Sodium,Porcine 5,000 UNIT/ML VIAL 5000 UNIT SUBCUT ×2 (05:12→17:35)
[2021-05-31 06:14] LABS: Anion Gap 12 (12-20); Blood Urea Nitrogen 54 mg/dL (9-16); Calcium 8.6 mg/dL (8.4-10.2); Carbon Dioxide 24 mmol/L (22-29); Chloride 109 mmol/L (96-108); Creatinine Clr Calc Pharmacy 35.7; Estimated Glomerular Filt Rate 28; Glucose Random 118 mg/dL (60-115); Potassium 4.7 mmol/L (3.3-5.1); Sodium 140 mmol/L (135-145)
[2021-05-31 07:34] VITALS: BP 158/70; PULSE 84; RESP 20; TEMP 36
[2021-05-31 07:49] LABS: Glucose, Whole Blood 104 mg/dL (60-115)
[2021-05-31 08:13] LABS: Alanine Aminotransferase 197 U/L (0-40); Albumin Level 3.3 g/dL (3.5-5.0); Alkaline Phosphatase 79 U/L (39-117); Aspartate Amino Transferase 117 U/L (5-37); Bilirubin Direct < 0.2 mg/dL (0.0-0.5); Bilirubin Total 0.3 mg/dL (0.0-1.0); C Reactive Protein 0.27 mg/dL (< or = 0.50); Total Protein 7.4 g/dL (6.5-8.0)
[2021-05-31] MEDS: polyethylene glycoL 3350 17 GM POWD.PACK PO (09:37)
[2021-05-31] MEDS: Sodium Zirconium Cyclosilicate 10 GM POWD.PACK PO (09:37)
[2021-05-31] MEDS: Gabapentin 100 MG CAPSULE 200 MG PO ×3 (09:38→21:17)
--- NOTE | 2021-05-31 11:37 | PM.PNNEP ---
Subjective Subjective Date of Service: 06/01/21 Principal diagnosis: vanessa Interval history: Events noted Physical Exam Vital Signs: Vital Signs: Last Vital Signs Temp 96.8 F 05/31/21 07:34 Pulse 84 05/31/21 07:34 Resp 20 05/31/21 07:34 BP 158/70 H 05/31/21 07:34 Pulse Ox 97 05/31/21 04:00 BMI result Body Mass Index 34.1 Const: General: cooperative Orientation/consciousness: oriented to person Neck: Neck: Yes supple Resp: Effort & Inspection: no respiratory distress Auscultation: clear to auscultation bilaterally Cardio: Jugular venous distension: no JVD Palpation: no palpable S3 Heart sounds: S2 abnormal and no gallops GI: Inspection: Yes normal to inspection Palpation (GI): Soft to palpation Neuro: General: oriented to person Motor exam (neuro): no asterixis Extrem: General: Yes normal to inspection Right upper extremity: edema (1+) Objective Data Labs CBC & Chem 7: 05/30/21 03:52 05/31/21 05:20 Labs: Laboratory Results - last 24 hr 05/30/21 05/30/21 05/30/21 11:49 15:53 19:42 Sodium Potassium Chloride Carbon Dioxide Anion Gap BUN Creatinine Estim Creat Clear Calc Estimated GFR POC Glucose 112 128 H 177 H Random Glucose Calcium Total Bilirubin Direct Bilirubin AST ALT Alkaline Phosphatase C-Reactive Protein Total Protein Albumin 05/31/21 05/31/21 05:20 07:30 Sodium 140 Potassium 4.7 Chloride 109 H Carbon Dioxide 24 Anion Gap 12 BUN 54 H Creatinine 2.42 H Estim Creat Clear Calc 35.7 Estimated GFR 28 POC Glucose 104 Random Glucose 118 H Calcium 8.6 Total Bilirubin 0.3 Direct Bilirubin < 0.2 AST 117 H ALT 197 H Alkaline Phosphatase 79 C-Reactive Protein 0.27 Total Protein 7.4 Albumin 3.3 L Microbiology Microbiology Results: Microbiology 05/11/21 14:41 Blood - Venous Blood Culture - Final Corynebacterium species 05/11/21 15:36 Blood - Venous Blood Culture - Final No growth after 5 days. 05/11/21 14:41 Foot Right Gram Stain - Final 05/11/21 14:41 Foot Right Routine Culture - Final Staphylococcus aureus Strep agalactiae (Grp B) Procedures Date of Service Date of Service: 05/31/21 Assessment & Plan Assessment and plan (1) CKD stage G3b/A2, GFR 30-44 and albumin creatinine ratio 30-299 mg/g: Status: Acute (2) VANESSA (acute kidney injury): Status: Acute Assessment and Plan: VANESSA superimposed on CKD Underlying diabetic nephropathy Creatinine is trending down Hyperkalemia Lokelma 10 gm daily No ss of uremia No absolute indication for biopsy Time Spent With Patient Time: Total time spent is greater than 50% in coordination of care (as documented) at patient's floor/unit and/or counseling patient: Time with patient: 15 - 24 minutes Progress Note: Quality Stroke Does the patient have a stroke diagnosis?: No
[2021-05-31 11:58] LABS: Glucose, Whole Blood 98 mg/dL (60-115)
[2021-05-31 12:00] VITALS: BP 135/61; PULSE 94; RESP 18; TEMP 36; O2SAT 100
--- NOTE | 2021-05-31 13:47 | MHC.CM.PN ---
nurse case assembler note electronic medical record reviewed along with case discussed with hospitlaist and on multiple disciplianry rounds. resent clicals discharge plan [facility] accepting of patient , they will come in and assess patient and teach iv abx administration, by their liason. with discharge for 06/01/21 sravan singha re assessing anticipate patient to be discharged tomorrow with start date for 06/02/21 (secondary to having a nurse availability for that date. (meication joshi and iv abx administration and dressing changes per finalized discharge orders , iv eratepenum qd x 4weeks transportation family pcp dr addie reyes id to follow up
--- NOTE | 2021-05-31 13:58 | P.PNIM_ITS ---
Subjective Subjective Date of Service: 05/31/21 Interval History: R foot pain controlled No fever Awaiting vascular evaluation + [facility] Review of Systems Review of Systems: Yes all other systems are reviewed and are negative Physical Exam Vital Signs: Vital Signs: Last Vital Signs Temp 96.8 F 05/31/21 12:00 Pulse 94 05/31/21 12:00 Resp 18 05/31/21 12:00 BP 135/61 05/31/21 12:00 Pulse Ox 100 05/31/21 12:00 BMI result Body Mass Index 34.1 Gen: in no acute distress HEENT: sclera anicteric, moist mucus membranes Neck: supple, R Antunez catheter without signs of infection Lungs: clear to auscultation bilaterally Heart: regular rate and rhythm, no murmurs Abd: soft, non-tender, non-distended Ext: no edema Skin: warm/well-perfused, R plantar deep ulcer at head of 2nd metatarsal with minimal drainage Neuro: alert and oriented x3 Psych: appropriate affect Objective Data Active Medications Acetaminophen (Acetaminophen 325 Mg Tablet) 650 mg PO Q6H PRN PRN Reason: Pain, Mild (Pain Scale 1-3) Last Admin: 05/27/21 03:35 Dose: 650 mg Documented by: KATHIE Dextrose (Dextrose 50 % 25 Gm/50 Ml Vial) 25 gm IVPUSH Q15M PRN; Protocol PRN Reason: per Hypoglycemia Standing Ord. Gabapentin (Gabapentin 100 Mg Capsule) 200 mg PO TID [facility] Last Admin: 05/31/21 09:38 Dose: 200 mg Documented by: DARRYL Glucose (Glucose Gel 15 Gm Gel..Gram.) 15 gm PO Q15M PRN; Protocol PRN Reason: per Hypoglycemia Standing Ord. Heparin Sodium (Porcine) (Heparin Sodium,Porcine 5,000 Unit/Ml Vial) 5,000 unit SUBCUT Q12H [facility] [place] Last Admin: 05/31/21 05:12 Dose: 5,000 unit Documented by: DHARMESH Meropenem 1 gm/ Sodium (Chloride) 100 mls @ 100 mls/hr IV Q8H [facility] [place] Last Infusion: 05/31/21 11:44 Dose: 0 mls/hr Documented by: DARRYL Insulin Human Lispro (Insulin Lispro 100 Unit/Ml 3 Ml Vial) 0 unit SUBCUT QIDACHS [facility]; Protocol Last Admin: 05/31/21 12:14 Dose: Not Given Documented by: DARRYL Non-Admin Reason: No Insulin Coverage Insulin Pump (Subcutaneous Insulin Pump) 1 each SUBCUT QIDARADHA [facility]; Protocol Last Admin: 05/31/21 13:08 Dose: Not Given Documented by: DARRYL Non-Admin Reason: No Insulin Coverage Morphine Sulfate (Morphine Sulfate 2 Mg/Ml Cartridge) 2 mg IVPUSH Q2H PRN; Protocol PRN Reason: severe pain Ondansetron HCl (Ondansetron Hcl 4 Mg/2 Ml Vial) 4 mg IVPUSH Q8H PRN PRN Reason: Nausea and Vomiting Last Admin: 05/29/21 00:10 Dose: 4 mg Documented by: ANUJ Oxycodone HCl (Oxycodone Hcl Immed Release 5 Mg Tablet) 5 mg PO Q4H PRN PRN Reason: moderate pain Pharmacy Consult (Consult Rx Perform Med Rec) 1 each MISCELLANE ONCE PRN PRN Reason: Consult order Polyethylene Glycol (Polyethylene Glycol 3350 17 Gm Powd.Pack) 17 gm PO DAILY [facility] [place] Last Admin: 05/31/21 09:37 Dose: 17 gm Documented by: DARRYL Sodium Chloride (0.9 % Sodium Chloride Flush 3 Ml Syringe) [facility] Last Admin: 05/31/21 09:38 Dose: 3 ml Documented by: DARRYL Sodium Zirconium Cyclosilicate (Sodium Zirconium Cyclosilicate 10 Gm Powd.Pack) 10 gm PO DAILY [facility] [place] Last Admin: 05/31/21 09:37 Dose: 10 gm Documented by: DARRYL Trazodone HCl (Trazodone Hcl 50 Mg Tablet) 150 mg PO BEDTIME [facility] [place] Last Admin: 05/30/21 20:25 Dose: Not Given Documented by: DHARMESH Non-Admin Reason: Patient Refused Labs CBC & Chem 7: 05/30/21 03:52 05/31/21 05:20 Labs: Laboratory Results - last 24 hr 05/30/21 05/30/21 05/31/21 15:53 19:42 05:20 Anion Gap 12 Estim Creat Clear Calc 35.7 Estimated GFR 28 POC Glucose 128 H 177 H Random Glucose 118 H Calcium 8.6 Total Bilirubin 0.3 Direct Bilirubin < 0.2 AST 117 H ALT 197 H Alkaline Phosphatase 79 C-Reactive Protein 0.27 Total Protein 7.4 Albumin 3.3 L 05/31/21 05/31/21 07:30 11:41 Anion Gap Estim Creat Clear Calc Estimated GFR POC Glucose 104 98 Random Glucose Calcium Total Bilirubin Direct Bilirubin AST ALT Alkaline Phosphatase C-Reactive Protein Total Protein Albumin Assessment and Plan (1) Drug-induced liver injury: Status: Acute (2) Transaminitis: Status: Acute (3) CKD stage G3b/A2, GFR 30-44 and albumin creatinine ratio 30-299 mg/g: Status: Acute (4) Osteomyelitis: Status: Acute Assessment and Plan: hospital d#20 56yo M with DM2 admitted with osteomyelitis of neck of 2nd metatarsal with path ologic fracture # DM osteomyelitis/infected DM foot infection - on d#19 of ABX- was initially on pip/gracia but d/c'ed secondary to possible liver injury- now on meropenem with plan to transition to ertapenem upon discharge [give 1 dose on day of discharge]. Blood cultures negative, wound cultures with MSSA + GBS - ID + Gen Surg consulted # PAD - mild-mod disease on arterial dopplers; Vasc Surg evaluation pending. hold off on starting statin due to transaminasemia # transaminitis - ?pip/gracia-induced injury on background of fatty liver - continue to monitor LFTs- HCV viral load pending # twitching movements - likely excess gabapentin; decreased dose from 900 mg/d to 600 mg/d given CrCl around 30; have resolved # CKD3-4 # hyperK, resolved - continue low-potassium diet, Lokelma 10 mg/d - outpt Nephrology f/u - protect arms for future HD risk; had Antunez placed 05/13/21 # DM2 - resumed home insulin pump # neuropathy - gabapentin # NEEMA - CPAP at night # VTE ppx - UFH # dispo - planl home with VNA but difficulty finding infusion company due to hx inhalation cocaine use though none in over 2 mo. He has never injected drugs and is committed to sobriety and I do not think there is much risk of him using his Antunez catheter for drug abuse. Please refer to consult by pharmacy clinical specialist TRINO Leonardo Stroke Does the patient have a stroke diagnosis?: No VTE Prior VTE?: No VTE Risk Level:: Medical - moderate - high VTE Device Contraindication: Treatment Not Indicated VTE Drug Contraindication: N/A - Med Ordered
[2021-05-31 15:31] VITALS: BP 140/63; PULSE 71; RESP 20; TEMP 36.7; O2SAT 98
--- NOTE | 2021-05-31 15:54 | PM.CNGS ---
History of Present Illness Consult details Consult date: 05/31/21 Reason for consult: wound care Narrative: 56-year-old gentleman with nonhealing right foot ulcer presents to us for vascular evaluation. He has a history of a chronic renal insufficiency nonhealing ulcers and diabetes. He has been seen and maintain regarding his lower extremity ulcers by Dr. Porter as in the past. He now presents to us for vascular evaluation Review of Systems Review of Systems: Yes all other systems are reviewed and are negative Constitutional: Constitutional: Reports no additional constitutional complaints ENT: Reports Normal hearing present Cardiovascular: Cardiovascular: Denies chest pain, Denies chest pain at rest, Denies chest pain with activity and Denies pedal edema Respiratory: Respiratory: Denies cough Gastrointestinal: Gastrointestinal: Denies abdominal pain Musculoskeletal: Musculoskeletal: Denies abnormal gait, Denies muscle cramps and Denies radiating pain into limb Integumentary/Breasts: Skin/Breast: Denies skin ulcer and Denies wounds Neurologic: Reports Normal hearing present and Denies abnormal gait Psychiatric: Psychiatric: Reports no additional psychiatric complaints PMFSH Past Medical History Medical History CKD (chronic kidney disease) Diabetic polyneuropathy associated with type 2 diabetes mellitus Dyslipidemia 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 deficiency Moderate non-proliferative diabetic retinopathy Morbid obesity NEEMA on CPAP 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 Brother No problems noted. Son No problems noted. Daughter In good health Maternal Grandmother DM (diabetes mellitus) Stroke Family history: reviewed and not pertinent Surgical History Surgical History History of eye surgery 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 History of tonsillectomy and adenoidectomy Hx laparoscopic cholecystectomy S/P cataract surgery S/P debridement S/P tooth extraction Status post amputation of toe Social History Social History Household Members: None Housing: Apartment Do you presently have visiting nurse or other home services: Yes (daughter is DITCHING MACHINE OPERATOR) Alcohol intake: never Patient Tobacco Use Status: Never used Tobacco e-Cigarette/Vaping Use: Never Used Second Hand Smoke Exposure: No Substance Use Type: Marijuana service: No Current occupational status: disabled Meds Allergies Allergy/AdvReac Type Severity Reaction Status Date / Time Sulfa (Sulfonamide Allergy Intermediate hives Verified 03/25/21 13:42 Antibiotics) [SULFA (SULFONAMIDE ANTIBIOTICS)] Active Medications: Current Medications Acetaminophen (Acetaminophen 325 Mg Tablet) 650 mg PO Q6H PRN PRN Reason: Pain, Mild (Pain Scale 1-3) Last Admin: 05/27/21 03:35 Dose: 650 mg Documented by: Dextrose (Dextrose 50 % 25 Gm/50 Ml Vial) 25 gm IVPUSH Q15M PRN; Protocol PRN Reason: per Hypoglycemia Standing Ord. Gabapentin (Gabapentin 100 Mg Capsule) 200 mg PO TID [facility] Last Admin: 05/31/21 15:12 Dose: 200 mg Documented by: Glucose (Glucose Gel 15 Gm Gel..Gram.) 15 gm PO Q15M PRN; Protocol PRN Reason: per Hypoglycemia Standing Ord. Heparin Sodium (Porcine) (Heparin Sodium,Porcine 5,000 Unit/Ml Vial) 5,000 unit SUBCUT Q12H [facility] Last Admin: 05/31/21 05:12 Dose: 5,000 unit Documented by: Meropenem 1 gm/ Sodium (Chloride) 100 mls @ 100 mls/hr IV Q8H [facility] Last Infusion: 05/31/21 11:44 Dose: Infused Documented by: Insulin Human Lispro (Insulin Lispro 100 Unit/Ml 3 Ml Vial) 0 unit SUBCUT QIDAS [facility]; Protocol Last Admin: 05/31/21 12:14 Dose: Not Given Documented by: Insulin Pump (Subcutaneous Insulin Pump) [facility] Protocol Last Admin: 05/31/21 13:08 Dose: Not Given Documented by: Morphine Sulfate (Morphine Sulfate 2 Mg/Ml Cartridge) 2 mg IVPUSH Q2H PRN; Protocol PRN Reason: severe pain Ondansetron HCl (Ondansetron Hcl 4 Mg/2 Ml Vial) 4 mg IVPUSH Q8H PRN PRN Reason: Nausea and Vomiting Last Admin: 05/29/21 00:10 Dose: 4 mg Documented by: Oxycodone HCl (Oxycodone Hcl Immed Release 5 Mg Tablet) 5 mg PO Q4H PRN PRN Reason: moderate pain Pharmacy Consult (Consult Rx Perform Med Rec) 1 each MISCELLANE ONCE PRN PRN Reason: Consult order Polyethylene Glycol (Polyethylene Glycol 3350 17 Gm Powd.Pack) 17 gm PO DAILY [facility] Last Admin: 05/31/21 09:37 Dose: 17 gm Documented by: Sodium Chloride (0.9 % Sodium Chloride Flush 3 Ml Syringe) 3 ml IVFLUSH QSHIFT [facility] Last Admin: 05/31/21 15:12 Dose: 3 ml Documented by: Sodium Zirconium Cyclosilicate (Sodium Zirconium Cyclosilicate 10 Gm Powd.Pack) 10 gm PO DAILY [facility] Last Admin: 05/31/21 09:37 Dose: 10 gm Documented by: Trazodone HCl (Trazodone Hcl 50 Mg Tablet) 150 mg PO BEDTIME [facility] Last Admin: 05/30/21 20:25 Dose: Not Given Documented by: Home Medications Medication Instructions Recorded Confirmed Last Taken Type blood sugar diagnostic #10 ea 04/01/20 03/25/21 Unknown History insulin syringe-needle U-100 05/3004/21/21 Unknown History mL 31 gauge x 15/64 (BD Veo Insulin Syringe Ultra-Fine) dulaglutide 3 mg/0.5 mL 3 mg SUBCUT TU@1000 05/11/21 05/11/21 Unknown History subcutaneous pen injector (Trulicity) subcutaneous insulin pump (Omnipod 05/11/21 05/11/21 Unknown History Insulin Management) Physical Exam Vital Signs: Vital Signs: Last Vital Signs Temp 98.0 F 05/31/21 15:31 Pulse 71 05/31/21 15:31 Resp 20 05/31/21 15:31 BP 140/63 H 05/31/21 15:31 Pulse Ox 98 05/31/21 15:31 BMI result Body Mass Index 34.1 Const: General: cooperative, healthy appearing and comfortable Orientation/consciousness: oriented to person, oriented to place and oriented to time HENMT: Head: Yes normal to inspection Neck: Neck: Yes normal visual inspection Carotids: no bruits Chest: Chest palpation & inspection: normal inspection of the chest Resp: Effort & Inspection: normal respiratory effort and able to speak in complete sentences Auscultation: clear to auscultation bilaterally, no crackles, no rales, no rhonchi and no wheezes Cardio: Rate: regular rate Rhythm: regular rhythm Heart sounds: S1 normal heart sound present and S2 normal heart sound present Bruits: no carotid bruits Peripheral pulses: dorsalis pedis present (Bilateral DP signals) GI: Inspection: Yes normal to inspection Skin: Wounds: wounds noted (Right foot nonhealing ulcers) Hair: normal Neuro: General: oriented to person, oriented to place and oriented to time Cranial nerves: Yes CN's II-XII intact bilaterally and Yes Normal hearing present Cognition (Neuro): normal cognition Motor exam (neuro): 5/5 motor strength present throughout Extrem: Other: venous exam: No significant superficial varicosities or spider telangiectasias, minimal edema General: No clubbing, No cyanosis and No edema Psych: Appearance: grossly normal Mental Status: mental status grossly normal Speech and movement: Normal speech and movement present Results Labs Result diagrams: 05/30/21 03:52 05/31/21 05:20 Labs: Abnormal lab results 05/30/21 05/30/21 05/31/21 Range/Units 15:53 19:42 05:20 Chloride 109 H (96-108) mmol/L BUN 54 H (9-16) mg/dL Creatinine 2.42 H (0.5-1.4) mg/dL POC Glucose 128 H 177 H (60-115) mg/dL Random Glucose 118 H (60-115) mg/dL AST 117 H (5-37) U/L ALT 197 H (0-40) U/L Albumin 3.3 L (3.5-5.0) g/dL BMP 05/31/21 05:20 Sodium 140 Potassium 4.7 Chloride 109 H Carbon Dioxide 24 BUN 54 H Creatinine 2.42 H Calcium 8.6 Liver Function 05/31/21 Range/Units 05:20 Total Bilirubin 0.3 (0.0-1.0) mg/dL Direct Bilirubin < 0.2 (0.0-0.5) mg/dL AST 117 H (5-37) U/L ALT 197 H (0-40) U/L Alkaline Phosphatase 79 (39-117) U/L Albumin 3.3 L (3.5-5.0) g/dL Urine 05/11/21 05/15/21 05/16/21 Range/Units 15:36 22:55 11:24 Urine Color YELLOW YELLOW YELLOW Urine Appearance CLEAR CLEAR CLEAR Urine pH 5.5 5.5 5.5 (5.0-8.0) Ur Specific [place] >= 1.030 H 1.020 1.020 (1.005-1.025) Urine Protein 3+ H 2+ H 1+ H (NEG-TRACE) MG/DL Urine Glucose (UA) NEG NEG NEG (NEG) MG/DL All other labs normal. Assessment and Plan (1) PAD (peripheral artery disease): Status: Acute In short patient has an element of peripheral vascular disease. I do believe his ulcers stable at the current time. He does have occlusive disease which is noted on his noninvasive testing which is concerning for disease in the SFA and popliteal arteries. At the current time he is stable. I do believe he would benefit from outpatient follow-up and possible endovascular intervention if this wound continues not to heal. Upon discharge he can follow up with me in approximately 2 weeks time. Thank you for allowing us to assist in his care. If there are any questions or concerns please do not hesitate to contact us. Procedures Date of Service Date of Service: 05/31/21
[2021-05-31 16:11] LABS: Glucose, Whole Blood 87 mg/dL (60-115)
[2021-05-31 19:16] VITALS: BP 160/70; PULSE 82; RESP 20; TEMP 36.3; O2SAT 99
[2021-05-31 19:53] LABS: Glucose, Whole Blood 154 mg/dL (60-115)
[2021-05-31] MEDS: traZODone HCL 50 MG TABLET 150 MG PO (21:17)
[2021-05-31] MEDS: oxyCODONE HCl Immed Release 5 MG TABLET PO (21:27)
[2021-05-31] MEDS: Subcutaneous Insulin Pump 1 EACH SUBCUT (22:56)
[2021-06-01] VITALS: BP 139/63; PULSE 74; RESP 19; TEMP 36.3; O2SAT 99
[2021-06-01] MEDS: 0.9 % Sodium Chloride Flush 3 ML SYRINGE IVFLUSH ×3 (00:52→16:07)
[2021-06-01 03:45] VITALS: BP 138/65; PULSE 73; RESP 17; TEMP 36.2; O2SAT 100
[2021-06-01] MEDS: Heparin Sodium,Porcine 5,000 UNIT/ML VIAL 5000 UNIT SUBCUT (06:30)
[2021-06-01 07:40] LABS: Glucose, Whole Blood 98 mg/dL (60-115)
[2021-06-01 07:58] VITALS: BP 152/68; PULSE 83; RESP 18; TEMP 36.2; O2SAT 98
[2021-06-01] MEDS: Gabapentin 100 MG CAPSULE 200 MG PO ×2 (08:46→16:06)
[2021-06-01] MEDS: polyethylene glycoL 3350 17 GM POWD.PACK PO (08:48)
[2021-06-01] MEDS: Sodium Zirconium Cyclosilicate 10 GM POWD.PACK PO (08:48)
[2021-06-01] MEDS: Subcutaneous Insulin Pump 1 EACH SUBCUT ×2 (08:53→12:26)
--- NOTE | 2021-06-01 10:07 | HO.VASCPN ---
Subjective Subjective Date of Service: 06/01/21 Patient reports: no new complaints and feels better Interval history: Very pleasant 56-year-old gentleman presents for follow-up regarding nonhealing right plantar surface ulceration. This has been persistent for some time. He reports that it opens and closes and this has been going on for the past year. He is being treated with IV antibiotics. He appears to be doing relatively well. Physical Exam Vital Signs: Vital Signs: Last Vital Signs Temp 97.2 F 06/01/21 07:58 Pulse 83 06/01/21 07:58 Resp 18 06/01/21 07:58 BP 152/68 H 06/01/21 07:58 Pulse Ox 98 06/01/21 07:58 BMI result Body Mass Index 34.1 Const: General: cooperative, healthy appearing and no acute distress Orientation/consciousness: oriented to person, oriented to place and oriented to time HENMT: Head: Yes normal to inspection Neck: Carotids: no bruits Chest: Chest palpation & inspection: normal inspection of the chest Resp: Effort & Inspection: normal respiratory effort and able to speak in complete sentences Auscultation: clear to auscultation bilaterally Cardio: Rate: regular rate Heart sounds: S1 normal heart sound present and S2 normal heart sound present GI: Inspection: Yes normal to inspection Skin: General skin exam: no rashes or lesions noted Wounds: wounds noted (Right plantar surface ulcer) Neuro: General: oriented to person, oriented to place, oriented to time and CN's II-XI intact bilaterally Extrem: General: Yes normal to inspection, Yes full ROM and Yes no clubbing, cyanosis or edema Psych: Appearance: grossly normal and well kempt Speech and movement: Normal speech and movement present Affect: normal affect Progress Note: A&P Assessment and plan (1) PAD (peripheral artery disease): Status: Acute Assessment and Plan: In short patient has a stable nonhealing ulcer. Would recommend continued antibiotic therapy. His noninvasive testing was reviewed. It does demonstrate some SFA and popliteal disease in particular on the right. He may benefit from an endovascular intervention which can be performed as an outpatient. Upon discharge she can follow-up with me. I did give him my business card. Thank you for allowing us to assist in his care. Fall Risk Details Current Medications: Current Medications Acetaminophen (Acetaminophen 325 Mg Tablet) 650 mg PO Q6H PRN PRN Reason: Pain, Mild (Pain Scale 1-3) Last Admin: 05/27/21 03:35 Dose: 650 mg Documented by: Dextrose (Dextrose 50 % 25 Gm/50 Ml Vial) 25 gm IVPUSH Q15M PRN; Protocol PRN Reason: per Hypoglycemia Standing Ord. Gabapentin (Gabapentin 100 Mg Capsule) 200 mg PO TID [facility] Last Admin: 06/01/21 08:46 Dose: 200 mg Documented by: Glucose (Glucose Gel 15 Gm Gel..Gram.) 15 gm PO Q15M PRN; Protocol PRN Reason: per Hypoglycemia Standing Ord. Heparin Sodium (Porcine) (Heparin Sodium,Porcine 5,000 Unit/Ml Vial) 5,000 unit SUBCUT Q12H [facility] Last Admin: 06/01/21 06:30 Dose: 5,000 unit Documented by: Meropenem 1 gm/ Sodium (Chloride) 100 mls @ 100 mls/hr IV Q8H [facility] Last Admin: 06/01/21 08:47 Dose: 100 mls/hr Documented by: Insulin Human Lispro (Insulin Lispro 100 Unit/Ml 3 Ml Vial) 0 unit SUBCUT QIDAS [facility]; Protocol Last Admin: 06/01/21 07:37 Dose: Not Given Documented by: Insulin Pump (Subcutaneous Insulin Pump) 1 each SUBCUT QIDACHS [facility]; Protocol Last Admin: 06/01/21 08:53 Dose: 1 each Documented by: Morphine Sulfate (Morphine Sulfate 2 Mg/Ml Cartridge) 2 mg IVPUSH Q2H PRN; Protocol PRN Reason: severe pain Ondansetron HCl (Ondansetron Hcl 4 Mg/2 Ml Vial) 4 mg IVPUSH Q8H PRN PRN Reason: Nausea and Vomiting Last Admin: 05/29/21 00:10 Dose: 4 mg Documented by: Oxycodone HCl (Oxycodone Hcl Immed Release 5 Mg Tablet) 5 mg PO Q4H PRN PRN Reason: moderate pain Last Admin: 05/31/21 21:27 Dose: 5 mg Documented by: Pharmacy Consult (Consult Rx Perform Med Rec) 1 each MISCELLANE ONCE PRN PRN Reason: Consult order Polyethylene Glycol (Polyethylene Glycol 3350 17 Gm Powd.Pack) 17 gm PO DAILY [facility] Last Admin: 06/01/21 08:48 Dose: 17 gm Documented by: Sodium Chloride (0.9 % Sodium Chloride Flush 3 Ml Syringe) 3 ml IVFLUSH QSHIFT [facility] Last Admin: 06/01/21 08:48 Dose: 3 ml Documented by: Sodium Zirconium Cyclosilicate (Sodium Zirconium Cyclosilicate 10 Gm Powd.Pack) 10 gm PO DAILY [facility] Last Admin: 06/01/21 08:48 Dose: 10 gm Documented by: Trazodone HCl (Trazodone Hcl 50 Mg Tablet) 150 mg PO BEDTIME [facility] Last Admin: 05/31/21 21:17 Dose: 150 mg Documented by: Time Spent With Patient Time: Total time spent is greater than 50% in coordination of care (as documented) at patient's floor/unit and/or counseling patient: Time with patient: 15 - 24 minutes Procedures Date of Service Date of Service: 06/01/21 Quality Stroke Does the patient have a stroke diagnosis?: No VTE Prior VTE?: No VTE Risk Level:: Medical - moderate - high VTE Device Contraindication: Treatment Not Indicated VTE Drug Contraindication: N/A - Med Ordered
--- NOTE | 2021-06-01 10:23 | PM.PNNEP ---
Subjective Subjective Date of Service: 06/01/21 Principal diagnosis: vanessa Interval history: R foot pain controlled No fever Awaiting vascular evaluation + [facility] Physical Exam Vital Signs: Vital Signs: Last Vital Signs Temp 97.2 F 06/01/21 07:58 Pulse 83 06/01/21 07:58 Resp 18 06/01/21 07:58 BP 152/68 H 06/01/21 07:58 Pulse Ox 98 06/01/21 07:58 BMI result Body Mass Index 34.1 Const: General: cooperative Orientation/consciousness: oriented to person Neck: Neck: Yes supple Resp: Effort & Inspection: no respiratory distress Auscultation: clear to auscultation bilaterally Cardio: Jugular venous distension: no JVD Palpation: no palpable S3 Heart sounds: S2 abnormal and no gallops GI: Inspection: Yes normal to inspection Palpation (GI): Soft to palpation Neuro: General: oriented to person Motor exam (neuro): no asterixis Extrem: General: Yes normal to inspection Right upper extremity: edema (1+) Objective Data Labs CBC & Chem 7: 05/30/21 03:52 05/31/21 05:20 Labs: Laboratory Results - last 24 hr 05/31/21 05/31/21 05/31/21 11:41 16:05 19:48 POC Glucose 98 87 154 H 06/01/21 07:31 POC Glucose 98 Microbiology Microbiology Results: Microbiology 05/11/21 14:41 Blood - Venous Blood Culture - Final Corynebacterium species 05/11/21 15:36 Blood - Venous Blood Culture - Final No growth after 5 days. 05/11/21 14:41 Foot Right Gram Stain - Final 05/11/21 14:41 Foot Right Routine Culture - Final Staphylococcus aureus Strep agalactiae (Grp B) Procedures Date of Service Date of Service: 06/01/21 Assessment & Plan Assessment and plan (1) CKD stage G3b/A2, GFR 30-44 and albumin creatinine ratio 30-299 mg/g: Status: Acute (2) VANESSA (acute kidney injury): Status: Acute Assessment and Plan: VANESSA superimposed on CKD Underlying diabetic nephropathy Creatinine essentially unchanged Hyperkalemia stands corrected No ss of uremia No absolute indication for biopsy Time Spent With Patient Time: Total time spent is greater than 50% in coordination of care (as documented) at patient's floor/unit and/or counseling patient: Progress Note: Quality Stroke Does the patient have a stroke diagnosis?: No
[2021-06-01 11:21] LABS: Glucose, Whole Blood 94 mg/dL (60-115)
[2021-06-01 12:00] VITALS: BP 164/77; PULSE 73; RESP 17; TEMP 36.2; O2SAT 99
--- NOTE | 2021-06-01 13:39 | PM.DS ---
DS: Providers Provider Date of Service: 06/01/21 Date of admission: 05/11/21 16:07 Primary care physician: Xochilt Singh MD Consults: 05/11/21 16:07 Consult to General Surgery Routine Consulting Provider: Zac Otero Reason for consultation: osteomyelitis, plantar foot wound Has provider been notified: No 05/11/21 16:10 Consult to Infectious Diseases Routine Consulting Provider: Angela Vargas Reason for consultation: osteomyelitis Has provider been notified: No 05/15/21 09:13 Consult to Infectious Diseases Routine Consulting Provider: Angela Vargas Reason for consultation: NEW MEROPENEM 05/25/21 15:21 Consult to Gastroenterology Routine Consulting Provider: Sudhir Putnam Reason for consultation: transaminitis Has provider been notified: No 05/26/21 07:37 Consult to Infectious Diseases Routine Consulting Provider: Angela Vargas Reason for consultation: osteomyelitis Has provider been notified: Yes 05/26/21 08:14 Consult to Infectious Diseases Routine Consulting Provider: Angela Vargas Reason for consultation: NEW MEROPENEM ORDER 05/28/21 15:03 Consult to Care Team Routine Comment: Reason for consultation: +ASKED YO SPEAK WITH SOMEONE WITH INCREASING ANXIETY, BASED ON HOSP DURATIO 05/28/21 17:29 Addiction Medicine Routine Consulting Provider: Missy Dumont Reason for consultation: risk assessment for subastance abuse no use over 2 months; long-term ABX 05/30/21 07:55 Consult to Vascular Surgery Routine Consulting Provider: Nicholas Wang Reason for consultation: DM foot ulcer/osteo, PAD 06/01/21 11:09 Consult to Infectious Diseases Routine Consulting Provider: Angela Vargas Reason for consultation: foot infection DS: Diagnosis Discharge Diagnosis (1) CKD stage G3b/A2, GFR 30-44 and albumin creatinine ratio 30-299 mg/g: Status: Acute (2) VANESSA (acute kidney injury): Status: Acute DS: Summary Hospital Course Hospital Course: ?56-year-old Urdu-speaking male with complaints of right plantar foot pain.? He reported some chills without fever.? He reported that he goes to the wound clinic and recently he had a skin graft for fake Skin placed on the wound and after that he noticed that there was more drainage and the pain was worse this was approximately a week ago.? He has had this wound for over a year but imaging studies have not showed osteomyelitis.? Today in the ER foot x-ray shows pathological fracture of 2nd metatarsal with changes of osteomyelitis.? White blood cell count 16.0, no fever, normal lactic acid.? He was given vancomycin, Zosyn in the ER.? He will be admitted for further management and treatment of acute osteomyelitis to right foot diabetic foot wound. Hospital course: He presented with right foot pain in the plantar aspect with associated open wound. xray showed 1. Pathologic fracture of neck second metatarsal, changes of osteomyelitis at fracture site. 2. Prior amputation third digit. Question early cortical erosion plantar side metatarsal head. Wound culture grew MSSA and group B strep. While in the hospital has been treated with Vancomycin and Zosyn and subsequently transitioned to meropenem, patient seen by infectious disease and she is recommending 6 weeks of IV ertapenem, patient received 19 days of antibiotic in house therefore being discharged on IV ertapenem for 23 more days, Joshi catheter has been placed given CKD. Surgery saw and recommends non-weight bearing to the foot. Patient seen by Dr. Wang noninvasive testing revealed SFA and popliteal disease on the right endovascular intervention is recommended as outpatient recommend patient to have outpatient follow-up with Dr. Wang in next 1-2 weeks. Patient is now being discharged with VNA services for home infusion and dressings. Time Spent with Patient Time attestation: Total time spent providing and/or coordinating discharge services: Discharge coordination time: Greater than 30 minutes Quality: Stroke Does the patient have a stroke diagnosis?: No Physical Exam Vital Signs: Vital Signs: Last Vital Signs Temp 97.2 F 06/01/21 12:00 Pulse 73 06/01/21 12:00 Resp 17 06/01/21 12:00 BP 164/77 H 06/01/21 12:00 Pulse Ox 99 06/01/21 12:00 BMI result Body Mass Index 34.1 Gen: in no acute distress HEENT: sclera anicteric, moist mucus membranes Neck: supple, R Joshi catheter without signs of infection Lungs: clear to auscultation bilaterally Heart: regular rate and rhythm, no murmurs Abd: soft, non-tender, non-distended Ext: no edema Skin: warm/well-perfused, R plantar deep ulcer at head of 2nd metatarsal with minimal drainage Neuro: alert and oriented x3 Psych: appropriate affect DS: Data Data Completed and Pending Labs on day of discharge: Laboratory Results - last 24 hr 05/31/21 05/31/21 06/01/21 16:05 19:48 07:31 POC Glucose 87 154 H 98 06/01/21 11:17 POC Glucose 94 Discharge Plan Discharge Patient Disposition: Home Health Service Discharge Diagnosis: Osteomylitis of the foot Referrals: [facility], [Other] - 1 Day (PROVIDER OF THE IV ANTIBIOTIC AND JOSHI CATH DRESSINGS AND ALL RELATED SUPPLIES AND FLUSHES AND DRESSINGS,) [facility] [Outside] - 1 Day ([facility] for joshi cath if antibiotic administration teaching and follow up with flushing and joshi cath dressing changes, and 2, dressing and wound care assessment and monitoring -right plantar diavbetic foot ulcer slowly healing, cleansed with normal saline, see discharge instructions for finalized orders 3 dr addie dwyer primary care physician for post hospital discharge follow up 3 dr carolann chen id [phone] [place] [address] [address] [place] [facility] transportation family) Xochilt Mckoy MD [Primary Care Provider] - 1 Week Discharge Medications: New ertapenem [Invanz] 1 gram recon soln 1 g IV DAILY Qty: 23 RF: 0 Continued (DME) FreeStyle Precision Harshad Strips Strip See Rx Instructions .ROUTE .MEDSUPPLY Qty: 25 RF: 11 (DME) compression stockings 20 mmHg See Rx Instructions .Route .MEDSUPPLY Qty: 1 RF: 0 insulin lispro [Humalog U-100 Insulin] 100 unit/mL solution See Rx Instructions subcut DAILY 30 Days Qty: 40 RF: 4 (DME) insulin syringe-needle U-100 [BD Veo Insulin Syringe UF] 1/2 mL 31 gauge x 15/64 syringe See Rx Instructions .ROUTE RF: 0 (DME) pen needle, diabetic [BD Ultra-Fine Roberta Pen Needle] 32 gauge x 5/32 needle See Rx Instructions .Route Qty: 30 RF: 5 (DME) Omnipod Insulin Management Misc MISCELLANEOUS RF: 0 Trulicity 3 mg/0.5 mL pen injector 3 mg subcut TU@1000 RF: 0 gabapentin 300 mg capsule 300 mg PO Q8H 30 Days Qty: 90 RF: 6 (DME) diabetic shoe inserts 11.5 See Rx Instructions .Route .MEDSUPPLY Qty: 1 RF: 0 (DME) blood sugar diagnostic Strip See Rx Instructions ea Not Applicable DAILY Qty: 10 RF: 0 (DME) FreeStyle Lite Strips Strip See Rx Instructions .ROUTE .MEDSUPPLY Qty: 150 RF: 11 (DME) lancets Misc See Rx Instructions ea Not Applicable .MEDSUPPLY Qty: 200 RF: 11 Discharge Orders: Discharge Order (Routine); Ordered 06/01/21 Ordered By: Bhupendra Dia Diet: advance to usual diet and diabetic diet Activity on Discharge: As tolerated Stand Alone Forms: Patient Portal Discharge page Care Plan Goals: resolution of osteomylitis and to avoid amputation Health Concerns: Osteomylitis Plan of Treatment: IV Invanz for 23 days, home with VNA No weight bearing to the right and follow up with wound care Outpatient follow-up with Dr. Wang call to make appointment in next 1-2 weeks Cleans with normal saline, apply silver alginate to wound bed, cover with gauze and use roll gauze Assessment: as above
--- NOTE | 2021-06-01 13:44 | W.MHC.F2F ---
Service Date Service Date: 06/01/21 Encounter Date of encounter: 06/01/21 Reasons for Services Reason for care home: wound care, administration of IV, SQ, or IM injection and diabetic teaching Homebound: Leaving the home is medically contraindicated at this time without the asist of a device and/or another person due th the listed conditions above and below. Certification: Based on the above findings, I certify that this patient is confined to the home and needs intermittent care home care, physical therapy and/or speech therapy, or continues to need occupational therapy. The patient is under my care, and I have initiated the establishment of the plan of care. The patient will be followed by a physician who will periodically review the plan of care.
--- NOTE | 2021-06-01 14:26 | PC.NURSE ---
Pt is upset because he has an insulin pump, and it ran out of insulin, explained to him that he needs to bring his own insulin to fill the pump. He ripped his insulin pump off of him. Fuel Technician Kyung called, asl interpreter called, Maral GARCIA made aware. He was also over heard talking on the phone about telling channel [address] about his stay here. Dr. Dia made aware. His blood sugars today were FBS 98 and 11:30 AM 94. Pt is being discharged after his 1600 antibiotic.
--- NOTE | 2021-06-01 15:30 | PC.NURSE ---
Pt requested his own insulin, currently stored in the refrigerator, due to his pump having ran out. T/w retrieved medication for him, and brought it to his bedside, for the purpose of refilling his new pump. He is due to be discharged within the next two hours, after receiving a dose of IV antibiotics.
[2021-06-01] MEDS: Ertapenem Sodium 1 GM in 0.9 % Sodium Chloride 50 ML IV (16:07)
[2021-06-04 14:30] LABS: HCV Log PCR <1.18 NOT DETECTED Log IU/mL (NOT DETECTED); HepC Viral Load <15 NOT DETECTED IU/mL (NOT DETECTED)
== END 2021-06-01 17:15 | disposition home health service (06) | DRG 344 ==
LOC: HO.ED 14:56 → HO.EDOVER 16:22 → HO.S3 05-13 17:42
PROVIDERS: Family Medicine; Hospitalist; Internal Medicine; Internal Medicine Nephrology; Physician Assistant; Radiology Diagnostic Radiology; Student in an Organized Health Care Education/Training Program; Admitting Provider Nurse Practitioner Acute Care; Emergency Provider Emergency Medicine; PCP Internal Medicine; Visit Provider Hospitalist
PROC: 0JH63XZ Insertion of Tunneled Vascular Access Device into Chest Subcutaneous Tissue and Fascia, Percutaneous Approach (ICD-10-PCS; principal; 2021-05-14 15:10)
DX: E11.69 Type 2 diabetes mellitus with other specified complication (principal); M86.171 Other acute osteomyelitis, right ankle and foot; N17.0 Acute kidney failure with tubular necrosis; E11.621 Type 2 diabetes mellitus with foot ulcer; M84.674A Pathological fracture in other disease, right foot, initial encounter for fracture; L97.419 Non-pressure chronic ulcer of right heel and midfoot with unspecified severity; D63.1 Anemia in chronic kidney disease; K71.8 Toxic liver disease with other disorders of liver; E11.22 Type 2 diabetes mellitus with diabetic chronic kidney disease; D72.829 Elevated white blood cell count, unspecified; E11.42 Type 2 diabetes mellitus with diabetic polyneuropathy; E66.9 Obesity, unspecified; N18.32 Chronic kidney disease, stage 3b; N25.0 Renal osteodystrophy; E87.5 Hyperkalemia; K59.00 Constipation, unspecified; T36.0X5A Adverse effect of penicillins, initial encounter; R25.3 Fasciculation; T42.6X5A Adverse effect of other antiepileptic and sedative-hypnotic drugs, initial encounter; Y92.239 Unspecified place in hospital as the place of occurrence of the external cause; E11.51 Type 2 diabetes mellitus with diabetic peripheral angiopathy without gangrene; G47.33 Obstructive sleep apnea (adult) (pediatric); Z99.89 Dependence on other enabling machines and devices; Z20.822 Contact with and (suspected) exposure to COVID-19; Z68.34 Body mass index [BMI] 34.0-34.9, adult; Z79.4 Long term (current) use of insulin; Z88.2 Allergy status to sulfonamides; Z98.84 Bariatric surgery status; Z79.899 Other long term (current) drug therapy
CPT/HCPCS: 36415; 36558; 70450; 73630; 76700; 76775; 76937; 80048; 80051; 80053; 80076; 80202; 81001; 81003; 82550; 82565; 82728; 82784; 82947; 83540; 83605; 83735; 83970; 84100; 84156; 84484; 84520; 85025; 85027; 85610; 85652; 86140; 86160; 86334; 86704; 86706; 86803; 87040; 87071; 87147; 87186; 87205; 87340; 87522; 87635; 93005; 93925; 93971; 96365; 96367; 99153; 99285; C1751; C1769; J0885; J1335; J2185; J2270; J2405; J2543; J3370

== ENCOUNTER 2021-06-09 12:26 | Outpatient (REF) | payer OTHER, SELFPAY ==
[2021-06-09 12:31] LABS: MANUAL DIFF FLAG NO
[2021-06-09 12:36] LABS: Basophils Absolute Auto 0.1 X10*3/uL (0.0-0.2); Basophils Percent Auto 0.4 % (0-2); Eosinophils Absolute Auto 0.9 X10*3/uL (0.0-0.4); Hematocrit 25.3 % (42.0-52.0); Hemoglobin 8.1 g/dl (14.0-18.0); Imm Gran Abs Auto 0.02 X10*3/uL (0.00-0.03); Imm Gran Pct Auto 0.2 % (0.0-0.4); Lymphocytes Absolute Auto 2.1 X10*3/uL (1.2-4.9); Lymphocytes Percent Auto 17.7 % (20-40); Mean Corpuscular Hemoglobin 27.9 pg (27.0-33.0); Mean Corpuscular Volume 87.2 fL (80.0-98.0); Mean Platelet Volume 9.5 fL (9.4-12.4); Monocytes Absolute Auto 1.3 X10*3/uL (0.1-1.2); Monocytes Percent Auto 11.4 % (2-11); Neutrophils Absolute Auto 7.2 x10*3/uL (2.0-8.3); Neutrophils Percent Auto 62.3 % (45-73); Platelet Count 552 X10*3/uL (160-400); Red Cell Distribution Width 15.6 % (11.0-16.0); White Blood Count 11.6 X10*3/uL (4.8-10.8)
[2021-06-09 13:29] LABS: Erythrocyte Sedimentation Rate 67 MM/HR (0-15)
[2021-06-09 13:42] LABS: Alanine Aminotransferase 145 U/L (0-40); Albumin Level 3.1 g/dL (3.5-5.0); Alkaline Phosphatase 108 U/L (39-117); Anion Gap 16 (12-20); Aspartate Amino Transferase 65 U/L (5-37); Bilirubin Direct < 0.2 mg/dL (0.0-0.5); Bilirubin Total < 0.2 mg/dL (0.0-1.0); Blood Urea Nitrogen 42 mg/dL (9-16); C Reactive Protein 0.17 mg/dL (< or = 0.50); Carbon Dioxide 21 mmol/L (22-29); Chloride 107 mmol/L (96-108); Estimated Glomerular Filt Rate 33; Glucose Random 106 mg/dL (60-115); Potassium 5.2 mmol/L (3.3-5.1); Sodium 139 mmol/L (135-145); Total Protein 7.2 g/dL (6.5-8.0)
== END 2021-06-09 12:27 | disposition home or self-care (01) ==
LOC: HO.HVNA 12:26
PROVIDERS: Visit Provider Internal Medicine
DX: E11.621 Type 2 diabetes mellitus with foot ulcer (principal)
CPT/HCPCS: 36415; 80051; 80076; 82565; 82947; 84520; 85025; 85652; 86140

== ENCOUNTER → 2021-06-11 14:45 | Outpatient (BNVA) | payer OTHER, SELFPAY | PROVIDERS: PCP Internal Medicine; Visit Provider Internal Medicine | DX: M86.9 Osteomyelitis, unspecified (principal); B95.61 Methicillin susceptible Staphylococcus aureus infection as the cause of diseases classified elsewhere; B95.1 Streptococcus, group B, as the cause of diseases classified elsewhere; S91.301D Unspecified open wound, right foot, subsequent encounter | CPT/HCPCS: 99212 ==

== ENCOUNTER 2021-06-16 11:49 | Outpatient (REF) | payer OTHER, SELFPAY ==
[2021-06-16 12:14] LABS: Alanine Aminotransferase 133 U/L (0-40); Albumin Level 2.9 g/dL (3.5-5.0); Alkaline Phosphatase 136 U/L (39-117); Anion Gap 11 (12-20); Aspartate Amino Transferase 77 U/L (5-37); Bilirubin Direct 0.2 mg/dL (0.0-0.5); Bilirubin Total 0.4 mg/dL (0.0-1.0); Blood Urea Nitrogen 24 mg/dL (9-16); C Reactive Protein 0.12 mg/dL (< or = 0.50); Carbon Dioxide 23 mmol/L (22-29); Chloride 110 mmol/L (96-108); Estimated Glomerular Filt Rate 38; Glucose Random 243 mg/dL (60-115); Potassium 4.5 mmol/L (3.3-5.1); Sodium 139 mmol/L (135-145); Total Protein 6.7 g/dL (6.5-8.0)
[2021-06-16 12:33] LABS: Erythrocyte Sedimentation Rate 49 MM/HR (0-15)
== END 2021-06-16 11:50 | disposition home or self-care (01) ==
LOC: HO.HVNA 11:49
PROVIDERS: Visit Provider Internal Medicine
DX: E11.621 Type 2 diabetes mellitus with foot ulcer (principal)
CPT/HCPCS: 36415; 80051; 80076; 82565; 82947; 84520; 85652; 86140

== ENCOUNTER → 2021-06-17 14:25 | Outpatient (BNVA) | payer OTHER, SELFPAY | PROVIDERS: PCP Internal Medicine; Visit Provider Surgery Vascular Surgery | DX: I73.9 Peripheral vascular disease, unspecified (principal) | CPT/HCPCS: 99212 ==

== ENCOUNTER 2021-06-21 05:57 | Day surgery (SDC) | payer OTHER, SELFPAY ==
[2021-06-21] VITALS (7 sets, daily range): BP systolic 123–143; BP diastolic 57–71; PULSE 64–71; RESP 12–17; TEMP 36.8–36.9; O2SAT 93–100; BMI 32.1
[2021-06-21 06:37] LABS: MANUAL DIFF FLAG NO
[2021-06-21 06:41] LABS: Basophils Absolute Auto 0.1 X10*3/uL (0.0-0.2); Basophils Percent Auto 0.5 % (0-2); Eosinophils Absolute Auto 0.5 X10*3/uL (0.0-0.4); Eosinophils Percent Auto 4.4 % (0-4); Hematocrit 26.8 % (42.0-52.0); Hemoglobin 8.4 g/dl (14.0-18.0); Imm Gran Abs Auto 0.04 X10*3/uL (0.00-0.03); Imm Gran Pct Auto 0.4 % (0.0-0.4); Lymphocytes Absolute Auto 2.5 X10*3/uL (1.2-4.9); Lymphocytes Percent Auto 22.4 % (20-40); Mean Corpuscular HGB Conc 31.3 g/dl (31.0-36.0); Mean Corpuscular Hemoglobin 26.5 pg (27.0-33.0); Mean Corpuscular Volume 84.5 fL (80.0-98.0); Mean Platelet Volume 9.3 fL (9.4-12.4); Monocytes Absolute Auto 1.1 X10*3/uL (0.1-1.2); Monocytes Percent Auto 9.5 % (2-11); Neutrophils Absolute Auto 6.9 x10*3/uL (2.0-8.3); Neutrophils Percent Auto 62.8 % (45-73); Platelet Count 446 X10*3/uL (160-400); Red Blood Count 3.17 X10*6/uL (4.60-5.80); Red Cell Distribution Width 15.2 % (11.0-16.0)
[2021-06-21 06:57] LABS: Blood Urea Nitrogen 31 mg/dL (9-16); Creatinine Clr Calc Pharmacy 46.4; Estimated Glomerular Filt Rate 39
[2021-06-21 07:26] LABS: Glucose, Whole Blood 172 mg/dL (60-115)
[2021-06-21] MEDS: 0.9 % Sodium Chloride 1,000 ML 100 ML IVCONT ×2 (07:34→09:43)
--- NOTE | 2021-06-21 09:31 | P.OP_ITS ---
Operative Note Operative Note Date of Service: 06/21/21 Narrative: Angiogram report from [facility] Preoperative diagnosis: Atherosclerosis of right lower extremity with nonhealing ulcer Postoperative diagnosis: Same Procedure: 1. Ultrasound-guided left common femoral access 2. Aortogram with right lower extremity runoff 3. Right peroneal plasty 4. Removal of Antunez catheter Surgeon:Nicholas Wang M.D., FACS, RPVI Wood Preparation Supervisor:None Anesthesia: Local with moderate conscious sedation. Total intraservice moder ate sedation time was 56 minutes. I monitored the patient's level of consciousness and physiologic status continuously throughout the procedure. Specimens:none Drains:none Estimated blood loss: Less than 10 ml Implant: Chocolate plasty balloon Indications: 56-year-old diabetic gentleman with nonhealing right lower extremity ulcers. On noninvasive imaging there was concern common femoral an SFA disease. He now presents for endovascular intervention. In addition he has completed his course of antibiotics and also presents for removal of Antunez catheter. The patient has signed the informed consent after reviewing risks, complications, benefits, and alternatives previously discussed with the patient. The patient was given the opportunity to ask any additional questions or voice any concerns. All questions were answered to the patient's satisfaction. Procedure in detail: Patient was brought to the angiography suite prior to which a time-out was called for patient identification and site verification. Bilateral groins were prepped and draped in the standard surgical fashion. Under ultrasound guidance leftcommon femoral was punctured with micro puncture needle and wire. Subsequently a precision 5 [place] Islander sheath was then placed. Bentson wire was advanced to the level of the aorta. 5 [place] Islander Flush catheter was brought up and parked at the level of the renal arteries. Aortogram was then undertaken. Catheter was brought down to the level of the iliac bifurcation. Iliacs were subsequently imaged. Catheter was then brought in up and over to the right side SFA. Runoff study was then undertaken. At this p oint no SFA disease was noted it was all below knee disease. We subsequently advanced an 035 glidewire Advantage. 4000 units of systemic heparin was administered. After 5 minutes of circulation time up and over 6 [place] Islander sheath was then placed. We then exchanged out for an 014 glidewire Advantage. We brought this down to the peroneal artery in we were able to traverse the TP trunk and peroneal artery. We then brought in a chocolate 2.5 x 40 balloon. This was insufflated for a total of 1 minute in duration. Follow-up angiogram demonstrated some residual stenosis. We then subsequently exchanged out for a 3 x 40 chocolate balloon. This was again insufflated for a total of 1 minute in duration. We achieved an excellent result. Catheter wire sheath was brought back to the ipsilateral side. StarClose closure device was then deployed. Once this was all accomplished we turned our attention to the right anterior chest wall. There was a Antunez catheter. This was sterilely prepped out. Incision was made over the exit site of the Antunez catheter. Cuff was released with of fine mosquitos. Once this was done the Antunez catheter was removed. 10 minutes of direct pressure was held at the counter incision jugular puncture site and the anterior chest wall removal site. Once adequate hemostasis was achieved Dermabond was used as sterile dressing. At the end the case sponge instrument counts were correct. Interpretation of films: 1. Ultrasound demonstrates appropriate femoral puncture. Image of which was saved. 2. Aortogram demonstrates appropriate caliber aorta. Minimal disease. Appropriate take-off of the renals. 3. Iliac images demonstrate no significant disease 4. Right Leg Common femoral artery: No significant disease Profundus Femoris: No significant disease Superficial femoral artery: Minimal disease at Paul's canal Popliteal artery (p1,p2,p3): No significant disease Anterior tibial artery: Patent all the way to the foot Peroneal artery: Disease at the origin and flow all the way down to the ankle somewhat diminished. Post plasty excellent flow all the way down to the level of the foot Posterior tibial artery: Occluded just after origin Dorsalis pedis/plantar arch: Partial arch Conclusion: 1. Successful plasty of right anterior tibial artery 2. Successful removal of Antunez catheter 3. Anticoagulation status: Patient will require 6 months of aspirin and Plavix due to plasty of below-knee vessel This note is constructed using voice recognition software. While every effort has been made to ensure accuracy, geology associate errors may have been included. Thank you for allowing me to participate in the care of your patient. Yours sincerely, Nicholas Wang MD, FACS, R.P.V.I.
[2021-06-21] MEDS: Clopidogrel Bisulfate 300 MG TABLET PO (09:47)
[2021-06-21] MEDS: iohexoL 300 MG/ML 100 ML INFUS..BTL IV (10:10)
[2021-06-21] MEDS: Aspirin 325 MG TABLET 650 MG PO (10:24)
== END 2021-06-21 11:41 | disposition home or self-care (01) ==
PROVIDERS: PCP Internal Medicine; Visit Provider Surgery Vascular Surgery
DX: E11.51 Type 2 diabetes mellitus with diabetic peripheral angiopathy without gangrene (principal); E11.22 Type 2 diabetes mellitus with diabetic chronic kidney disease; E11.3399 Type 2 diabetes mellitus with moderate nonproliferative diabetic retinopathy without macular edema, unspecified eye; E11.42 Type 2 diabetes mellitus with diabetic polyneuropathy; N18.32 Chronic kidney disease, stage 3b; L97.819 Non-pressure chronic ulcer of other part of right lower leg with unspecified severity; I70.238 Atherosclerosis of native arteries of right leg with ulceration of other part of lower leg; Z89.421 Acquired absence of other right toe(s); Z79.4 Long term (current) use of insulin; Z45.2 Encounter for adjustment and management of vascular access device; G47.33 Obstructive sleep apnea (adult) (pediatric); E78.5 Hyperlipidemia, unspecified; E21.3 Hyperparathyroidism, unspecified; E55.9 Vitamin D deficiency, unspecified; E66.01 Morbid (severe) obesity due to excess calories; Z68.32 Body mass index [BMI] 32.0-32.9, adult; Z88.2 Allergy status to sulfonamides; F12.90 Cannabis use, unspecified, uncomplicated
CPT/HCPCS: 36415; 36589; 37228; 76937; 82565; 82947; 84520; 85025; 99152; 99153; C1725; C1760; C1769; C1887; J2250; J3010; Q9967

== ENCOUNTER 2021-06-29 12:15 | Outpatient (REF) | payer OTHER, SELFPAY ==
--- NOTE | ~2021-06-29 | XR_ITS ---
EXAMINATION: XR FOOT, RIGHT CLINICAL INFORMATION: Pain in the right foot. COMPARISON: None TECHNIQUE: AP, lateral, and oblique views of the right foot. FINDINGS: There is an old healed 2nd metatarsal fracture with callus formation. There are mild erosive changes involving the 2nd metatarsophalangeal joint likely secondary to fracture and arthritis. There is amputation of the 3rd digit from the MTP joint distally. Hallux valgus deformity of the PIP joint 1st digit is noted. The ankle mortise and subtalar joints are maintained normal. Small calcaneal heel and retrocalcaneal enthesophytes are seen. XR/XR foot RT 2V IMPRESSION: Healing 2nd metatarsal fracture with mild irregularity involving the 2nd MTP joint, likely arthritic changes secondary to the fracture. Amputation of the 3rd distal digit. Mild degenerative spurring 1st tarsometatarsal joint and small enthesophytes along the calcaneal heel and retrocalcaneum.
== END 2021-06-29 12:16 | disposition home or self-care (01) ==
LOC: HO.XRAY 12:15
PROVIDERS: PCP Internal Medicine; Visit Provider Internal Medicine
DX: M79.671 Pain in right foot (principal)
CPT/HCPCS: 73620

== ENCOUNTER 2021-07-01 11:24 | Outpatient (REF) | payer OTHER, SELFPAY ==
[2021-07-01 11:42] LABS: MANUAL DIFF FLAG NO
[2021-07-01 11:58] LABS: Basophils Absolute Auto 0.1 X10*3/uL (0.0-0.2); Basophils Percent Auto 0.4 % (0-2); Eosinophils Absolute Auto 0.4 X10*3/uL (0.0-0.4); Eosinophils Percent Auto 3.9 % (0-4); Hematocrit 26.4 % (42.0-52.0); Hemoglobin 8.1 g/dl (14.0-18.0); Imm Gran Abs Auto 0.03 X10*3/uL (0.00-0.03); Imm Gran Pct Auto 0.3 % (0.0-0.4); Lymphocytes Absolute Auto 2.2 X10*3/uL (1.2-4.9); Lymphocytes Percent Auto 19.6 % (20-40); Mean Corpuscular HGB Conc 30.7 g/dl (31.0-36.0); Mean Corpuscular Hemoglobin 25.8 pg (27.0-33.0); Mean Corpuscular Volume 84.1 fL (80.0-98.0); Mean Platelet Volume 9.5 fL (9.4-12.4); Monocytes Percent Auto 9.1 % (2-11); Neutrophils Absolute Auto 7.4 x10*3/uL (2.0-8.3); Neutrophils Percent Auto 66.7 % (45-73); Platelet Count 553 X10*3/uL (160-400); Red Blood Count 3.14 X10*6/uL (4.60-5.80); Red Cell Distribution Width 16.7 % (11.0-16.0); White Blood Count 11.1 X10*3/uL (4.8-10.8)
[2021-07-01 12:38] LABS: Alanine Aminotransferase 17 U/L (0-40); Albumin Level 3.3 g/dL (3.5-5.0); Alkaline Phosphatase 143 U/L (39-117); Anion Gap 10 (12-20); Aspartate Amino Transferase 13 U/L (5-37); Bilirubin Total 0.4 mg/dL (0.0-1.0); Blood Urea Nitrogen 27 mg/dL (9-16); Calcium 8.5 mg/dL (8.4-10.2); Carbon Dioxide 24 mmol/L (22-29); Chloride 111 mmol/L (96-108); Cholesterol 135 mg/dL; Estimated Glomerular Filt Rate 45; Glucose Fasting 146 mg/dL (60-99); HDL Cholesterol 22 mg/dL; LDL Cholesterol Calculated 86 mg/dl; Sodium 140 mmol/L (135-145); Total Protein 7.2 g/dL (6.5-8.0); Triglycerides 136 mg/dL
[2021-07-01 13:04] LABS: Creatinine Urine 83.15 mg/dL
[2021-07-01 13:17] LABS: Microalbum/Creatinine Ratio Ur 1502.1 ug/mg cr
[2021-07-05 14:27] LABS: Vitamin D 25-OH, D2 <4 ng/mL; Vitamin D 25-OH, D3 20 ng/mL; Vitamin D 25-OH, Total 20 ng/mL (30-100)
== END 2021-07-01 11:25 | disposition home or self-care (01) ==
LOC: HO.LAB 11:24
PROVIDERS: PCP Internal Medicine; Visit Provider Internal Medicine
DX: E11.65 Type 2 diabetes mellitus with hyperglycemia (principal); E11.42 Type 2 diabetes mellitus with diabetic polyneuropathy; E78.5 Hyperlipidemia, unspecified; E55.9 Vitamin D deficiency, unspecified; D64.9 Anemia, unspecified
CPT/HCPCS: 36415; 80053; 80061; 82043; 82306; 85025; 99211

== ENCOUNTER → 2021-07-06 13:26 | Outpatient (BNVA) | payer OTHER, SELFPAY | PROVIDERS: PCP Internal Medicine; Visit Provider Surgery Vascular Surgery | DX: I73.9 Peripheral vascular disease, unspecified (principal) | CPT/HCPCS: 99212 ==

== ENCOUNTER 2021-07-14 08:09 | Outpatient (REF) | payer OTHER, SELFPAY ==
[2021-07-14 10:34] LABS: Hemoglobin 8.1 g/dl (14.0-18.0); Mean Corpuscular Hemoglobin 24.6 pg (27.0-33.0); Mean Corpuscular Volume 82.1 fL (80.0-98.0); Mean Platelet Volume 9.8 fL (9.4-12.4); Platelet Count 461 X10*3/uL (160-400); Red Blood Count 3.29 X10*6/uL (4.60-5.80); Red Cell Distribution Width 16.4 % (11.0-16.0); White Blood Count 9.6 X10*3/uL (4.8-10.8)
[2021-07-14 10:50] LABS: Anion Gap 11 (12-20); Blood Urea Nitrogen 22 mg/dL (9-16); Calcium 8.2 mg/dL (8.4-10.2); Carbon Dioxide 27 mmol/L (22-29); Chloride 109 mmol/L (96-108); Estimated Glomerular Filt Rate 59; Potassium 4.5 mmol/L (3.3-5.1); Sodium 142 mmol/L (135-145)
== END 2021-07-14 08:10 | disposition home or self-care (01) ==
LOC: HO.10HDL 08:09
PROVIDERS: Visit Provider Internal Medicine Hypertension Specialist
DX: E11.22 Type 2 diabetes mellitus with diabetic chronic kidney disease (principal); N18.30 Chronic kidney disease, stage 3 unspecified
CPT/HCPCS: 36415; 80051; 82310; 82565; 84520; 85027

== ENCOUNTER → 2021-08-18 07:57 | Outpatient (BNVA) | payer OTHER, SELFPAY | PROVIDERS: PCP Internal Medicine; Visit Provider Internal Medicine Endocrinology, Diabetes & Metabolism | DX: E11.65 Type 2 diabetes mellitus with hyperglycemia (principal); Z79.4 Long term (current) use of insulin | CPT/HCPCS: 82947; 99212 ==

== ENCOUNTER 2021-08-19 09:10 | Outpatient (REF) | payer OTHER, SELFPAY ==
--- NOTE | ~2021-08-19 | XR_ITS ---
EXAMINATION: XR KNEE, LEFT CLINICAL INFORMATION: Medial pain, without injury. COMPARISON: None. TECHNIQUE: AP, lateral, tunnel, and sunrise views of the left knee. FINDINGS: Bony alignment and mineralization are normal. The lateral, medial and patellofemoral joint space compartments are well-maintained. There are tiny peripheral osteophytes of the lateral and inferior articular surfaces of the patella. No fracture or dislocation is seen. A small left knee joint effusion is suspected. There are degenerative calcifications of the quadriceps tendon. A 1.6 cm exostosis arises from the medial cortical surface of the distal left femur. There is no foreign body. There are femoropopliteal atherosclerotic calcifications. There are vascular calcifications in the anterior soft tissues. XR/XR knee LT 3V IMPRESSION: 1. No fracture or dislocation is seen. 2. There is a small left knee joint effusion. 3. A small exostosis arises from the medial cortical surface of the distal left femur. 4. There is very mild osteoarthritic change of the left patellofemoral compartment.
== END 2021-08-19 09:11 | disposition home or self-care (01) ==
LOC: HO.XRAY 09:10
PROVIDERS: PCP Internal Medicine; Visit Provider Internal Medicine
DX: M25.562 Pain in left knee (principal)
CPT/HCPCS: 73562

== ENCOUNTER 2021-08-25 11:24 | Outpatient (REF) | payer OTHER, SELFPAY ==
[2021-08-25 11:55] LABS: COVID-19 Test Negative (Negative)
== END 2021-08-25 11:25 | disposition home or self-care (01) ==
LOC: HO.LAB 11:24
PROVIDERS: Visit Provider Internal Medicine
DX: Z20.822 Contact with and (suspected) exposure to COVID-19 (principal)
CPT/HCPCS: 87635; C9803

== ENCOUNTER 2021-09-20 10:28 | Outpatient (REF) | payer OTHER, SELFPAY ==
--- NOTE | ~2021-09-20 | US_ITS ---
EXAMINATION: NONINVASIVE ASSESSMENT OF THE ARTERIES OF BOTH LOWER EXTREMITIES WITH PVR EXAM AND BILATERAL LOWER EXTREMITY DUPLEX CLINICAL INFORMATION: Peripheral vascular disease. TECHNIQUE: Ankle pulse volume recordings, ankle pressure measurements and ankle brachial indices were obtained of the lower extremity arterial system bilaterally. Additionally, duplex Doppler techniques were used with wave form analysis and measurement of velocities in the common femoral, profunda femoral, superficial femoral, popliteal and tibial arteries. The study was performed only at rest. COMPARISON: None FINDINGS: ANKLE-BRACHIAL INDEX: Right: 0.96 Left: 1.0 ANKLE PVR WAVEFORM: Right: Normal. Left: Normal. DIRECT DUPLEX DOPPLER FINDINGS: RIGHT LEG: Common femoral artery: 140 cm/s, diastolic flow reversal: Yes. Profunda femoris artery: 103 cm/s, diastolic flow reversal: Yes. Superficial femoral artery (proximal): 119 cm/s, diastolic flow reversal: Yes. Superficial femoral artery (mid): 126 cm/s, diastolic flow reversal: Yes. Superficial femoral artery (distal): 175 cm/s, diastolic flow reversal: Yes. Popliteal artery: 136 cm/s, diastolic flow reversal: Yes. Posterior tibial artery: 21 cm/s, diastolic flow reversal: Yes. Peroneal artery: 111 cm/s, diastolic flow reversal: Yes. LEFT LEG: Common femoral artery: 149 cm/s, diastolic flow reversal: Yes. Profunda femoris artery: 97 cm/s, diastolic flow reversal: Yes. Superficial femoral artery (proximal): 96 cm/s, diastolic flow reversal: Yes. Superficial femoral artery (mid): 120 cm/s, diastolic flow reversal: Yes. Superficial femoral artery (distal): 487 cm/s, diastolic flow reversal: Yes. Popliteal artery: 82 cm/s, diastolic flow reversal: Yes. Posterior tibial artery: 21.2 cm/s, diastolic flow reversal: Yes. Peroneal artery: 115 cm/s, diastolic flow reversal: Yes. US/US arterial duplex LE BI IMPRESSION: Right leg: BETO 0.96 consistent with mild peripheral arterial disease. Mildly elevated velocities within the common femoral artery and distal superficial femoral artery, however, no evidence of hemodynamically significant stenosis. Left leg: BETO 1.0. Markedly elevated velocity within the distal superficial femoral artery is consistent with a high-grade stenosis. BETO Reference: - >0.97-1.25 = normal - no significant arterial disease. - 0.75-0.96 = mild peripheral arterial disease. - 0.5-0.74 = moderate peripheral arterial disease. - <0.50 = severe peripheral arterial disease.
== END 2021-09-20 10:29 | disposition home or self-care (01) ==
LOC: HO.US 10:28
PROVIDERS: PCP Internal Medicine; Visit Provider Surgery Vascular Surgery
DX: I73.9 Peripheral vascular disease, unspecified (principal)
CPT/HCPCS: 93923; 93925

== ENCOUNTER → 2021-09-28 13:28 | Outpatient (BNVA) | payer OTHER, SELFPAY | PROVIDERS: PCP Internal Medicine; Visit Provider Surgery Vascular Surgery | DX: I73.9 Peripheral vascular disease, unspecified (principal) | CPT/HCPCS: 99212 ==

== ENCOUNTER → 2021-10-06 08:25 | Outpatient (BNVA) | payer OTHER, SELFPAY | PROVIDERS: PCP Internal Medicine; Visit Provider Physician Assistant | DX: M17.12 Unilateral primary osteoarthritis, left knee (principal) | CPT/HCPCS: 99202 ==

== ENCOUNTER 2021-11-01 08:59 | Outpatient (REF) | payer OTHER, SELFPAY ==
[2021-11-01 10:32] LABS: MANUAL DIFF FLAG NO
[2021-11-01 10:37] LABS: Basophils Absolute Auto 0.1 X10*3/uL (0.0-0.2); Basophils Percent Auto 0.6 % (0-2); Eosinophils Absolute Auto 0.4 X10*3/uL (0.0-0.4); Eosinophils Percent Auto 3.9 % (0-4); Hematocrit 31.8 % (42.0-52.0); Hemoglobin 9.9 g/dl (14.0-18.0); Imm Gran Abs Auto 0.02 X10*3/uL (0.00-0.03); Imm Gran Pct Auto 0.2 % (0.0-0.4); Lymphocytes Absolute Auto 2.4 X10*3/uL (1.2-4.9); Lymphocytes Percent Auto 22.5 % (20-40); Mean Corpuscular HGB Conc 31.1 g/dl (31.0-36.0); Mean Corpuscular Hemoglobin 25.8 pg (27.0-33.0); Mean Corpuscular Volume 82.8 fL (80.0-98.0); Mean Platelet Volume 10.1 fL (9.4-12.4); Monocytes Percent Auto 9.4 % (2-11); Neutrophils Absolute Auto 6.8 x10*3/uL (2.0-8.3); Neutrophils Percent Auto 63.4 % (45-73); Platelet Count 469 X10*3/uL (160-400); Red Blood Count 3.84 X10*6/uL (4.60-5.80); Red Cell Distribution Width 18.7 % (11.0-16.0); White Blood Count 10.7 X10*3/uL (4.8-10.8)
[2021-11-01 10:47] LABS: Anion Gap 13 (12-20); Blood Urea Nitrogen 21 mg/dL (9-16); Calcium 8.3 mg/dL (8.4-10.2); Carbon Dioxide 23 mmol/L (22-29); Chloride 107 mmol/L (96-108); Estimated Glomerular Filt Rate 52; Phosphorus 3.3 mg/dL (2.7-4.5); Potassium 4.4 mmol/L (3.3-5.1); Sodium 139 mmol/L (135-145)
== END 2021-11-01 09:00 | disposition home or self-care (01) ==
LOC: HO.10HDL 08:59
PROVIDERS: Visit Provider Internal Medicine Hypertension Specialist
DX: N18.31 Chronic kidney disease, stage 3a (principal)
CPT/HCPCS: 36415; 80051; 82310; 82565; 84100; 84520; 85025

== ENCOUNTER 2021-11-08 14:00 | Outpatient (RCR) | payer OTHER, SELFPAY ==
--- NOTE | 2021-09-30 14:41 | MHC.PT.EP ---
[facility] [place] [facility] [place] [facility] [place] [facility] [address] Evaristo Goncalves [address] [phone] F: [phone] F: [phone] F: [phone] F: [phone] Physical Therapy Plan of Care Date of Evaluation: Date of Surgery: Diagnosis: Pain in L knee Assessment: 56 y/o M referred to PT with L knee pain. He had L medial knee pain of insidious onset 2 months ago but all his pain is resolved. When he had pain, he reported pain and difficulty with walking, stairs, and stepping through L LE. Examination shows decreased HS length, lateral tilted L patella, and mild quad lag on L with SLR. Recommend PT 1x/week for 3 weeks to develop HEP to prevent recurrence of L knee pain. Frequency and Duration: The patient will be seen 1x/week for 3 week Short Term Goals: 2 weeks 1. Compliant with HEP Directory Clerk Goals: 3 weeks 1. I with HEP and self management of sx 2. No quad lag with SLR 3. Pt will be able to walk > 30 min without pain Treatment Plan: Modalities to reduce pain, spasms and effusion. Manual therapy to restore motion and function. Therapeutic exercise to improve strength and flexibility. Neuromuscular re-education for posture and balance. Therapeutic activities to return to functional activities of daily living. Electronically signed by: Neyda Costello PT Please sign and return to therapist. Thank you for your referral.
--- NOTE | 2021-12-14 16:04 | MHC.PT.DC ---
[facility] [place] [facility] [place] [facility] [place] [facility] [address] Evaristo Goncalves [address] [phone] F: [phone] F: [phone] F: [phone] F: [phone] Physical Therapy Discharge Report Diagnosis: Pain in L knee Date of Surgery: Date of Evaluation: 09/30/21 Date of Discharge: 12/14/21 Treatments to Date: 3 Cancellations to Date: 2 No Shows to Date: 1 Discharge Status: Recommend MD Follow-up Visit Non-compliance Discharge Summary: Pt did not f/u with further visits. At time of last visit, he was having leg cramps and advised to f/u with MD regarding cramping. Electronically signed by: Neyda Costello PT Please sign and return to therapist. Thank you for your referral.
== END 2021-12-14 16:05 | disposition home or self-care (01) ==
LOC: HO.PT 14:00
PROVIDERS: Absent Provider Physician Assistant; PCP Internal Medicine; Visit Provider Internal Medicine
DX: M17.12 Unilateral primary osteoarthritis, left knee (principal); M25.562 Pain in left knee
CPT/HCPCS: 97110; 97161

== ENCOUNTER → 2021-11-17 07:57 | Outpatient (BNVA) | payer OTHER, SELFPAY | PROVIDERS: PCP Internal Medicine; Visit Provider Internal Medicine Endocrinology, Diabetes & Metabolism | DX: E11.65 Type 2 diabetes mellitus with hyperglycemia (principal); Z79.4 Long term (current) use of insulin; Z96.41 Presence of insulin pump (external) (internal) | CPT/HCPCS: 82947; 99212 ==

== ENCOUNTER → 2021-11-22 14:26 | Outpatient (BNVA) | payer OTHER, SELFPAY | PROVIDERS: PCP Internal Medicine; Visit Provider Internal Medicine | DX: G47.33 Obstructive sleep apnea (adult) (pediatric) (principal); J30.9 Allergic rhinitis, unspecified; E66.9 Obesity, unspecified; Z68.31 Body mass index [BMI] 31.0-31.9, adult | CPT/HCPCS: 99212 ==

== ENCOUNTER → 2021-11-23 08:26 | Outpatient (BNVA) | payer OTHER, SELFPAY | PROVIDERS: PCP Internal Medicine; Visit Provider Registered Nurse Diabetes Educator | DX: E11.42 Type 2 diabetes mellitus with diabetic polyneuropathy (principal); Z46.81 Encounter for fitting and adjustment of insulin pump; Z79.4 Long term (current) use of insulin | CPT/HCPCS: 99211 ==

== ENCOUNTER → 2021-12-24 08:28 | Outpatient (BNVA) | payer OTHER, SELFPAY | PROVIDERS: PCP Internal Medicine; Visit Provider Registered Nurse Diabetes Educator | DX: E11.65 Type 2 diabetes mellitus with hyperglycemia (principal) | CPT/HCPCS: 99211 ==

== ENCOUNTER 2021-12-27 13:45 | Outpatient (REF) | payer OTHER, SELFPAY ==
--- NOTE | ~2021-12-27 | XR_ITS ---
EXAMINATION: XR LUMBOSACRAL SPINE CLINICAL INFORMATION: Pain COMPARISON: None TECHNIQUE: Three views of the lumbosacral spine. FINDINGS: Bone alignment is normal. No fracture or dislocation is seen in there is mild degenerative spondylosis at T12-L1. Disc spaces are normal. There is evidence of atherosclerotic disease. XR/XR lumbar spine 2-3V IMPRESSION: Mild degenerative spondylosis at T12-L1.
== END 2021-12-27 13:46 | disposition home or self-care (01) ==
LOC: HO.XRAY 13:45
PROVIDERS: PCP Internal Medicine; Visit Provider Internal Medicine
DX: M54.50 Low back pain, unspecified (principal)
CPT/HCPCS: 72100

== ENCOUNTER 2021-12-29 06:21 | Outpatient (REF) | payer OTHER, SELFPAY ==
[2021-12-29 06:44] LABS: MANUAL DIFF FLAG NO
[2021-12-29 07:31] LABS: Basophils Percent Auto 0.4 % (0-2); Eosinophils Absolute Auto 0.2 X10*3/uL (0.0-0.4); Eosinophils Percent Auto 1.9 % (0-4); Hematocrit 32.4 % (42.0-52.0); Hemoglobin 10.4 g/dl (14.0-18.0); Imm Gran Abs Auto 0.03 X10*3/uL (0.00-0.03); Imm Gran Pct Auto 0.3 % (0.0-0.4); Lymphocytes Absolute Auto 1.9 X10*3/uL (1.2-4.9); Mean Corpuscular HGB Conc 32.1 g/dl (31.0-36.0); Mean Corpuscular Hemoglobin 26.3 pg (27.0-33.0); Mean Corpuscular Volume 81.8 fL (80.0-98.0); Mean Platelet Volume 9.4 fL (9.4-12.4); Monocytes Absolute Auto 0.9 X10*3/uL (0.1-1.2); Monocytes Percent Auto 9.5 % (2-11); Neutrophils Absolute Auto 6.5 x10*3/uL (2.0-8.3); Neutrophils Percent Auto 67.9 % (45-73); Platelet Count 495 X10*3/uL (160-400); Red Blood Count 3.96 X10*6/uL (4.60-5.80); Red Cell Distribution Width 15.9 % (11.0-16.0); White Blood Count 9.5 X10*3/uL (4.8-10.8)
[2021-12-29 07:58] LABS: Alanine Aminotransferase 38 U/L (0-40); Albumin Level 3.5 g/dL (3.5-5.0); Alkaline Phosphatase 117 U/L (39-117); Anion Gap 15 (12-20); Aspartate Amino Transferase 38 U/L (5-37); Bilirubin Total 1.1 mg/dL (0.0-1.0); Blood Urea Nitrogen 21 mg/dL (9-16); Calcium 8.6 mg/dL (8.4-10.2); Carbon Dioxide 24 mmol/L (22-29); Chloride 105 mmol/L (96-108); Cholesterol 127 mg/dL; Estimated Glomerular Filt Rate 57; Glucose Fasting 103 mg/dL (60-99); HDL Cholesterol 30 mg/dL; Iron 31 mcg/dL (45-160); LDL Cholesterol Calculated 80 mg/dl; Percent Iron Saturation 10 % (15-50); Potassium 4.1 mmol/L (3.3-5.1); Sodium 140 mmol/L (135-145); Total Iron Binding Capacity 323 mcg/dL (228-428); Total Protein 6.6 g/dL (6.5-8.0); Triglycerides 88 mg/dL; Unsaturated Iron Binding 292 ug/dL
[2021-12-29 08:21] LABS: Vitamin D 25-OH Total 23.8 ng/mL (>30)
[2021-12-29 08:52] LABS: Creatinine Urine 123.94 mg/dL
== END 2021-12-29 06:22 | disposition home or self-care (01) ==
LOC: HO.LAB 06:21
PROVIDERS: PCP Internal Medicine; Visit Provider Internal Medicine
DX: D64.9 Anemia, unspecified (principal); E55.9 Vitamin D deficiency, unspecified; E11.3399 Type 2 diabetes mellitus with moderate nonproliferative diabetic retinopathy without macular edema, unspecified eye
CPT/HCPCS: 36415; 80053; 80061; 82043; 82306; 83540; 85025

== ENCOUNTER 2022-01-02 13:37 | Emergency (ER) | payer OTHER, SELFPAY ==
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
[2022-01-02 13:51] VITALS: BP 164/84; PULSE 79; RESP 22; TEMP 36.7; O2SAT 99
[2022-01-02 13:58] VITALS: BP 138/86; PULSE 104; O2SAT 97; BMI 27.3
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
[2022-01-02] MEDS: Oxymetazoline HCl 0.05 % Nasal 15 ML SPRAY 2 SPRAY NOSTRIL-B (14:46)
--- NOTE | 2022-01-02 15:42 | PC.NURSE ---
FACE WAS CLEANED AND HIS LEFT NARE HAS SLOW BLEEDING, HE WAS EDUCATED ON NOT PLACING AND PULLING TISSUES UP AND OUT. GIVEN ICE PACK
== END 2022-01-02 15:46 | disposition home or self-care (01) ==
PROVIDERS: Emergency Provider Emergency Medicine; PCP Internal Medicine
DX: S00.33XA Contusion of nose, initial encounter (principal); S10.91XA Abrasion of unspecified part of neck, initial encounter; Y04.2XXA Assault by strike against or bumped into by another person, initial encounter; R04.0 Epistaxis; E11.22 Type 2 diabetes mellitus with diabetic chronic kidney disease; I12.9 Hypertensive chronic kidney disease with stage 1 through stage 4 chronic kidney disease, or unspecified chronic kidney disease; N18.30 Chronic kidney disease, stage 3 unspecified; D63.1 Anemia in chronic kidney disease; E78.5 Hyperlipidemia, unspecified; Y93.89 Activity, other specified; Y92.410 Unspecified street and highway as the place of occurrence of the external cause; Y99.9 Unspecified external cause status; Z79.82 Long term (current) use of aspirin; Z79.4 Long term (current) use of insulin
CPT/HCPCS: 70160; 99283

== ENCOUNTER 2022-01-06 21:10 | Emergency (ER) | payer OTHER, SELFPAY ==
--- NOTE | ~2022-01-06 | XR_ITS ---
EXAMINATION: XR FOOT, RIGHT CLINICAL INFORMATION: Evaluate for foreign body at the right heel COMPARISON: 06/29/2021 TECHNIQUE: AP and lateral views of the right foot. FINDINGS: No fracture or dislocation. Progressive distal second metatarsal erosion. Positioning of the first digit limits evaluation of the osseous structures. Vascular calcifications. There is a tiny linear radiopaque foreign body at the heel measuring 0.4 cm in length. XR/XR foot RT 2V IMPRESSION: Linear radiopaque foreign body in the heel soft tissues.
[2022-01-06 21:18] VITALS: BP 164/80; PULSE 87; O2SAT 98
[2022-01-06 21:40] VITALS: BP 114/61; PULSE 85; RESP 16; TEMP 37.3; O2SAT 97; BMI 28.6
[2022-01-07] VITALS: BP 130/57; PULSE 78; RESP 16; O2SAT 99
[2022-01-07 00:03] VITALS: BP 126/65; PULSE 77; RESP 16; O2SAT 99
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
[2022-01-07] MEDS: Diphth,Pertus(ACell),Tet Adult 0.5 ML SYRINGE IM (02:18)
[2022-01-07] MEDS: levoFLOXacin 500 MG TABLET PO (02:18)
== END 2022-01-07 02:33 | disposition home or self-care (01) ==
PROVIDERS: Emergency Provider Internal Medicine
DX: S91.341A Puncture wound with foreign body, right foot, initial encounter (principal); S80.212A Abrasion, left knee, initial encounter; S80.211A Abrasion, right knee, initial encounter; S50.311A Abrasion of right elbow, initial encounter; S90.811A Abrasion, right foot, initial encounter; V00.831A Fall from motorized mobility scooter, initial encounter; Y93.9 Activity, unspecified; Y92.9 Unspecified place or not applicable; Y99.9 Unspecified external cause status
CPT/HCPCS: 28192; 73620; 90471; 90715; 99283; 99284

== ENCOUNTER 2022-01-10 20:37 | Inpatient (IN) | payer OTHER, SELFPAY ==
--- NOTE | ~2022-01-10 | XR_ITS ---
EXAMINATION: XR CHEST rib pain status-post fall. VIEWS CLINICAL INFORMATION: Cough. COMPARISON: Prior chest radiographs, most recently 04/24/2020. TECHNIQUE: Frontal and lateral views of the chest were obtained. FINDINGS: The heart, great vessels, pulmonary vasculature and mediastinum are normal. Lung volumes are somewhat diminished. The lungs show no focal infiltrate, effusion or pneumothorax. There is no acute osseous abnormality. There is a chronic mild T12 anterior wedge compression fracture, unchanged from 11/15/2018. XR/XR chest 2V IMPRESSION: No active cardiopulmonary disease.
--- NOTE | ~2022-01-10 | XR_ITS ---
EXAMINATION: XR SHOULDER, RIGHT CLINICAL INFORMATION: Pain status-post fall. COMPARISON: None TECHNIQUE: AP external rotation, Grashey, scapular Y, and axillary views of the right shoulder. FINDINGS: Bony alignment and mineralization are normal. The glenohumeral joint is intact and shows mild peripheral osteophyte formation. The acromioclavicular and coracoclavicular intervals are normal. There is a distal acromial undersurface osteophyte, and there is cortical irregularity of the greater tuberosity of the proximal right humerus. No fracture or dislocation is seen. There is no abnormal soft tissue calcification or foreign body. No right pneumothorax is seen. XR/XR elbow RT min 3V IMPRESSION: 1. No fracture or dislocation is seen. 2. There is mild osteoarthritic change of the right glenohumeral joint. 3. Findings suggest right rotator cuff impingement. There is no maddie calcific tendinitis. EXAMINATION: XR ELBOW, RIGHT CLINICAL INFORMATION: Severe pain status-post fall. COMPARISON: None TECHNIQUE: AP, lateral, and oblique views of the right elbow. FINDINGS: Bony alignment and mineralization are normal. No fracture or joint effusion. Alignment is anatomic. Joint spaces are well-maintained. The soft tissue planes are unremarkable. Dermal lesions are noted of the lateral upper arm and the medial forearm. IMPRESSION: Unremarkable right elbow.
--- NOTE | ~2022-01-10 | XR_ITS ---
EXAMINATION: XR SHOULDER, RIGHT CLINICAL INFORMATION: Pain status-post fall. COMPARISON: None TECHNIQUE: AP external rotation, Grashey, scapular Y, and axillary views of the right shoulder. FINDINGS: Bony alignment and mineralization are normal. The glenohumeral joint is intact and shows mild peripheral osteophyte formation. The acromioclavicular and coracoclavicular intervals are normal. There is a distal acromial undersurface osteophyte, and there is cortical irregularity of the greater tuberosity of the proximal right humerus. No fracture or dislocation is seen. There is no abnormal soft tissue calcification or foreign body. No right pneumothorax is seen. XR/XR shoulder RT min 2V IMPRESSION: 1. No fracture or dislocation is seen. 2. There is mild osteoarthritic change of the right glenohumeral joint. 3. Findings suggest right rotator cuff impingement. There is no maddie calcific tendinitis. EXAMINATION: XR ELBOW, RIGHT CLINICAL INFORMATION: Severe pain status-post fall. COMPARISON: None TECHNIQUE: AP, lateral, and oblique views of the right elbow. FINDINGS: Bony alignment and mineralization are normal. No fracture or joint effusion. Alignment is anatomic. Joint spaces are well-maintained. The soft tissue planes are unremarkable. Dermal lesions are noted of the lateral upper arm and the medial forearm. IMPRESSION: Unremarkable right elbow.
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
[2022-01-10 21:00] VITALS: BMI 25.0
[2022-01-10 21:15] LABS: Glucose, Whole Blood 104 mg/dL (60-115)
--- NOTE | 2022-01-10 21:19 | MHC.CARE ---
Pt was evaluated by N in the community and is a [employer]a inpt psych bedsearch.
[2022-01-10 21:25] VITALS: BP 151/78; PULSE 90; RESP 18; TEMP 36.7; O2SAT 99
[2022-01-10 21:41] LABS: COVID-19 Test Negative (Negative); IDNOW Serial# 16C4AD1C
[2022-01-10 21:47] LABS: MANUAL DIFF FLAG NO
[2022-01-10 21:53] LABS: Basophils Absolute Auto 0.1 X10*3/uL (0.0-0.2); Basophils Percent Auto 0.4 % (0-2); Eosinophils Absolute Auto 0.2 X10*3/uL (0.0-0.4); Eosinophils Percent Auto 1.6 % (0-4); Hematocrit 31.8 % (42.0-52.0); Hemoglobin 10.3 g/dl (14.0-18.0); Imm Gran Abs Auto 0.03 X10*3/uL (0.00-0.03); Imm Gran Pct Auto 0.2 % (0.0-0.4); Lymphocytes Absolute Auto 2.4 X10*3/uL (1.2-4.9); Lymphocytes Percent Auto 19.6 % (20-40); Mean Corpuscular HGB Conc 32.4 g/dl (31.0-36.0); Mean Corpuscular Hemoglobin 26.6 pg (27.0-33.0); Mean Corpuscular Volume 82.2 fL (80.0-98.0); Mean Platelet Volume 8.9 fL (9.4-12.4); Monocytes Percent Auto 8.2 % (2-11); Neutrophils Absolute Auto 8.4 x10*3/uL (2.0-8.3); Platelet Count 528 X10*3/uL (160-400); Red Blood Count 3.87 X10*6/uL (4.60-5.80); Red Cell Distribution Width 15.9 % (11.0-16.0)
[2022-01-10 21:59] LABS: Prothrombin Time 11.1 SEC (10.0-13.1)
[2022-01-10 22:00] LABS: Ammonia 26 umol/L (13-55)
[2022-01-10 22:04] LABS: Ethanol < 10 mg/dL
[2022-01-10 22:08] LABS: Alanine Aminotransferase 35 U/L (0-40); Albumin Level 3.2 g/dL (3.5-5.0); Alkaline Phosphatase 109 U/L (39-117); Anion Gap 14 (12-20); Aspartate Amino Transferase 29 U/L (5-37); Bilirubin Total 0.5 mg/dL (0.0-1.0); Blood Urea Nitrogen 25 mg/dL (9-16); Calcium 8.1 mg/dL (8.4-10.2); Carbon Dioxide 24 mmol/L (22-29); Chloride 108 mmol/L (96-108); Creatinine Clr Calc Pharmacy 55.1; Estimated Glomerular Filt Rate 55; Glucose Random 100 mg/dL (60-115); Potassium 4.7 mmol/L (3.3-5.1); Sodium 141 mmol/L (135-145); Total Protein 6.1 g/dL (6.5-8.0)
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
[2022-01-11] MEDS: Ibuprofen 800 MG TABLET PO (00:11)
[2022-01-11 00:38] LABS: Appearance Urine CLEAR; Color Urine YELLOW; Glucose Urine UA Negative (NEG); Leukocyte Esterase Urine Negative (Negative); Nitrite Urine Negative (NEG); Specific Gravity - Urine 1.025 (1.005-1.025); Urine Blood Small (1+) (NEG); Urine Ketones Negative (NEG); Urine Protein 300 (3+) MG/DL (NEG-TRACE)
[2022-01-11 00:45] LABS: Amphetamine Screen Urine Not Detected (Not Detect); Barbiturates, Urine Not Detected (Not Detect); Benzodiazepines Screen Urine Not Detected (Not Detect); Cannabinoid Screen Urine POSITIVE (Not Detect); Cocaine Screen Urine Not Detected (Not Detect); Fentanyl, urine Not Detected (Not Detect); Opiate Screen Urine Not Detected (Not Detect); Phencyclidine Screen Urine Not Detected (Not Detect)
[2022-01-11 00:48] LABS: Bacteria Urine 2+ /LPF; Granular Casts Urine 0-2 /LPF; Mucus Urine 2+ /LPF; Squamous Epithelial Cell Urine 1+ /LPF
--- NOTE | 2022-01-11 07:08 | PC.NURSE ---
Patient slept through the night, no distress observed/reported, med rec completed/MAR updated, behavior non concerning at this time but unpredictable, primarily Austrian speaking, disposition per [facility] is section 12 inpatient bed search from the community, patient reported that he does not want to share any of healthcare information with his daughter, VSS, will continue to monitor.
--- NOTE | 2022-01-11 07:16 | PC.NURSE ---
patient appears to remain at rest at present aptient appears in no distress
--- NOTE | 2022-01-11 07:32 | PC.NURSE ---
patient appears to remain at restg at present respriations ar even and unlabored patient appears in no distress
[2022-01-11 19:31] VITALS: BP 133/57; PULSE 85; RESP 18; O2SAT 100
[2022-01-11 22:47] LABS: COVID-19 Test Negative (Negative)
[2022-01-11 23:40] VITALS: BP 158/76; PULSE 85; RESP 12; TEMP 36.5; O2SAT 100
[2022-01-12 03:19] VITALS: BMI 27.1
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
[2022-01-12 09:30] VITALS: BP 121/57; PULSE 88; RESP 16; TEMP 36.9; O2SAT 100
[2022-01-12 09:33] LABS: Estimated Average Glucose 103 mg/dL; Hemoglobin A1c % 5.2 %
[2022-01-12 09:57] LABS: Cholesterol 127 mg/dL; HDL Cholesterol 34 mg/dL; LDL Cholesterol Calculated 74 mg/dl; Magnesium 2.1 mg/dL (1.6-2.6); Triglycerides 99 mg/dL
[2022-01-12 10:19] LABS: Free T4 (Free Thyroxine) 0.98 ng/dL (0.71-1.85); Thyroid Stimulating Hormone 2.11 uIU/mL (0.32-4.0)
[2022-01-12 10:56] LABS: Folate 12.5 ng/mL (> or = 4.0); Vitamin B12 350 pg/mL (200-900)
--- NOTE | 2022-01-12 13:46 | MHC.CLN ---
NUTRITION PATIENT WITH GASTRIC BYPASS 2017. DX DM BUT DOES NOT TAKE DM MEDS. POC GLUCOSE, A1C, AND RANDOM GLUCOSE WITHIN NORMAL LIMITS. CONTINUE REGULAR DIET.
--- NOTE | 2022-01-12 17:16 | P.HPPS_ITS ---
HPI Date of Service: 01/12/22 Chief Complaint: Paranoia Sources of Information: patient interviewed, chart reviewed and crisis/core team assessment reviewed HPI Subjective Notes: Logan Warning and Conditional Voluntary Healthcare Proxy: No Guardianship: No Medical Problems Affecting Mental Status: No Narrative: Juan Jose is a 56 yold male who carries a dx of MDD recurrent. He presented to [facility] on 01/10/2022 via section 12a for paranoid and A/VH. Per [facility] crisis, pt was paranoid, pacing during eval. He reportedly heard AH telling him to kill others, seeing cars following him. Reportedly pt has not been sleeping, pacing the hallways at night. Head CT showed no acute intracranial pathology. Utox positive for cannabis. During crisis eval, warehouse forklift operator noted that pt?s speech was tangential, he was difficult to get information from, paranoid and pacing throughout assessment.? I evaluated the pt this evening with physician scientist and upon interview he reports ?Im excellent, good.? Says he is here because his daughter ?decided for me to be here,? says he doesn?t want to be here, signed a CV and 3 day notice. Says his daughter is his SALES CLERK, thinks she is ?playing games? because he was going to change his will, says she is worried about her inheritance and he feels like he has ?power? due to this. Pt denies depression. Denies SI/SIB. Says he doesnt use any illicit substances, however utox positive for cannabis. Says he attends to ADLs, showers multiple times a day but denies sx of OCD, says he does this because he can. Pt endorses AH, says he hears people shouting for him. Denies command AH, says the voices do not bother him. He denies paranoia but does say he feels like he is getting bullied by an active directory systems administrator at his day program. Says he sleeps 4-5 hours at night. Energy is good. Denies issues with anger, but then says he will be angry if he is not discharged on Monday. When asked about anxiety, pt says this is due to ?I need a woman next to me,? says ?this is the only anxiety I got.? Says he is not interested in taking psych medications, doesnt want chemicals in his body. Denies hx of IPLOC. During interview, pt is tangential, pressured, and difficult to follow in conversation. Past Psychiatric History: -Past meds: wellbutrin, Topamax, ambien, vistaril, Prozac (reflux). Pt self discontinued medications 03/2021. -Hx of OP psych services at [facility] in 2014-05/2021, stopped attending. Outpatient therapy: [facility] 2021 (discharged) Medical Evaluation Reviewed: Yes -Hx of attending weight loss clinic, s/p bariatric surgery. -Hx of DM but no longer requiring treatment since wt loss.? -Renal impairment.? -Diabetic foot ulcer late 2017, hx of toe amputations, neuropathy.? -HTN.? -NEEMA, does not use his CPAP. -Osteomyelitis -Loss of vision in one of his eyes PMFSH Medical History Anemia Anemia in chronic kidney disease CKD (chronic kidney disease) CKD (chronic kidney disease) stage 3, GFR 30-59 ml/min CKD stage G3b/A2, GFR 30-44 and albumin creatinine ratio 30-299 mg/g Diabetes type 2, uncontrolled Diabetic polyneuropathy associated with type 2 diabetes mellitus Dyslipidemia Foot osteomyelitis, right 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 deficiency Left knee pain Microalbuminuria Moderate non-proliferative diabetic retinopathy Morbid obesity NEEMA on CPAP Osteomyelitis PAD (peripheral artery disease) Patellofemoral arthritis of left knee [id number] syndrome Right foot pain Vitamin D deficiency Surgical History History of eye surgery 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 History of tonsillectomy and adenoidectomy Hx laparoscopic cholecystectomy S/P cataract surgery S/P debridement S/P tooth extraction Status post amputation of toe Social History: -Pt?s daughter is his SALES CLERK. Hx of divorce after 5 yrs of marriage. Has 2 adults kids. -[place] raised in [place], came [place] the [place] due to health issues. 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 Hx of one year of college. -Attends day program, [employer] Substance History: -Cocaine: onset 30 years ago, last used 8 months ago, used via insufflation and IV, utox negative -Marijuana: utox positive Diagnostics Vital Signs (24Hr): Vital Signs - 24 hr 01/11/22 19:31 01/11/22 23:40 01/12/22 09:30 Temperature 97.7 F 98.5 F Pulse Rate 85 85 88 Respiratory Rate 18 12 16 Blood Pressure 133/57 L 158/76 H 121/57 L Pulse Oximetry 100 100 100 Oxygen Delivery Method Room Air Room Air Room Air BMI result Body Mass Index 27.1 Labs Results: 01/10/22 21:41 01/10/22 21:41 Labs: Laboratory Results - last 48 hr 01/10/22 01/10/22 01/10/22 21:10 21:14 21:41 WBC 12.0 H RBC 3.87 L Hgb 10.3 L Hct 31.8 L MCV 82.2 MCH 26.6 L MCHC 32.4 RDW 15.9 Plt Count 528 H MPV 8.9 L Immature Gran % (Auto) 0.2 Neut % (Auto) 70.0 Lymph % (Auto) 19.6 L [place] % (Auto) 8.2 Eos % (Auto) 1.6 Baso % (Auto) 0.4 Lymph # (Auto) 2.4 [place] # (Auto) 1.0 Eos # (Auto) 0.2 Baso # (Auto) 0.1 Abs Immat Gran (auto) 0.03 Absolute Neuts (auto) 8.4 H Absolute Nucleated RBC 0.000 Nucleated RBC % (auto) 0.0 PT INR APTT Sodium Potassium Chloride Carbon Dioxide Anion Gap BUN Creatinine Estim Creat Clear Calc Estimated GFR POC Glucose 104 Random Glucose Estimat Average Glucose Hemoglobin A1c % Calcium Magnesium Total Bilirubin AST ALT Alkaline Phosphatase Ammonia Total Protein Albumin Triglycerides Cholesterol LDL Cholesterol, Calc HDL Cholesterol Vitamin B12 Folate TSH Free T4 Urine Color Urine Appearance Urine pH Ur Specific [place] Urine Protein Urine Glucose (UA) Urine Ketones Urine Blood Urine Nitrite Ur Leukocyte Esterase Urine RBC Urine WBC Ur Squamous Epith Cells Urine Bacteria Hyaline Casts Granular Casts Urine Mucus Urine Opiates Screen Urine Fentanyl Screen Ur Barbiturates Screen Ur Phencyclidine Scrn Ur Amphetamines Screen U Benzodiazepines Scrn Urine Cocaine Screen U Marijuana (THC) Screen Ethyl Alcohol COVID-19 (BLANCA) Negative COVID-19 Clin Com See Note 01/10/22 01/10/22 01/10/22 21:41 21:41 21:41 WBC RBC Hgb Hct MCV MCH MCHC RDW Plt Count MPV Immature Gran % (Auto) Neut % (Auto) Lymph % (Auto) [place] % (Auto) Eos % (Auto) Baso % (Auto) Lymph # (Auto) [place] # (Auto) Eos # (Auto) Baso # (Auto) Abs Immat Gran (auto) Absolute Neuts (auto) Absolute Nucleated RBC Nucleated RBC % (auto) PT 11.1 INR 1.0 APTT 35.0 Sodium 141 Potassium 4.7 Chloride 108 Carbon Dioxide 24 Anion Gap 14 BUN 25 H Creatinine 1.35 Estim Creat Clear Calc 55.1 Estimated GFR 55 POC Glucose Random Glucose 100 D Estimat Average Glucose Hemoglobin A1c % Calcium 8.1 L Magnesium Total Bilirubin 0.5 AST 29 ALT 35 Alkaline Phosphatase 109 Ammonia Total Protein 6.1 L Albumin 3.2 L Triglycerides Cholesterol LDL Cholesterol, Calc HDL Cholesterol Vitamin B12 Folate TSH Free T4 Urine Color Urine Appearance Urine pH Ur Specific [place] Urine Protein Urine Glucose (UA) Urine Ketones Urine Blood Urine Nitrite Ur Leukocyte Esterase Urine RBC Urine WBC Ur Squamous Epith Cells Urine Bacteria Hyaline Casts Granular Casts Urine Mucus Urine Opiates Screen Urine Fentanyl Screen Ur Barbiturates Screen Ur Phencyclidine Scrn Ur Amphetamines Screen U Benzodiazepines Scrn Urine Cocaine Screen U Marijuana (THC) Screen Ethyl Alcohol < 10 COVID-19 ([facility]ANCA) COVID-19 Clin Com 01/10/22 01/11/22 01/11/22 21:41 00:25 00:25 WBC RBC Hgb Hct MCV MCH MCHC RDW Plt Count MPV Immature Gran % (Auto) Neut % (Auto) Lymph % (Auto) [place] % (Auto) Eos % (Auto) Baso % (Auto) Lymph # (Auto) [place] # (Auto) Eos # (Auto) Baso # (Auto) Abs Immat Gran (auto) Absolute Neuts (auto) Absolute Nucleated RBC Nucleated RBC % (auto) PT INR APTT Sodium Potassium Chloride Carbon Dioxide Anion Gap BUN Creatinine Estim Creat Clear Calc Estimated GFR POC Glucose Random Glucose Estimat Average Glucose Hemoglobin A1c % Calcium Magnesium Total Bilirubin AST ALT Alkaline Phosphatase Ammonia 26 Total Protein Albumin Triglycerides Cholesterol LDL Cholesterol, Calc HDL Cholesterol Vitamin B12 Folate TSH Free T4 Urine Color YELLOW Urine Appearance CLEAR Urine pH 6.0 Ur Specific [place] 1.025 Urine Protein 300 (3+) H Urine Glucose (UA) Negative Urine Ketones Negative Urine Blood Small (1+) H Urine Nitrite Negative Ur Leukocyte Esterase Negative Urine RBC 1-4 Urine WBC 1-4 Ur Squamous Epith Cells 1+ Urine Bacteria 2+ Hyaline Casts 5-9 Granular Casts 0-2 Urine Mucus 2+ Urine Opiates Screen Not Detected Urine Fentanyl Screen Not Detected Ur Barbiturates Screen Not Detected Ur Phencyclidine Scrn Not Detected Ur Amphetamines Screen Not Detected U Benzodiazepines Scrn Not Detected Urine Cocaine Screen Not Detected U Marijuana (THC) Screen POSITIVE H Ethyl Alcohol COVID-19 (BLANCA) COVID-19 Clin Com 01/11/22 01/12/22 01/12/22 22:20 08:51 08:51 WBC RBC Hgb Hct MCV MCH MCHC RDW Plt Count MPV Immature Gran % (Auto) Neut % (Auto) Lymph % (Auto) [place] % (Auto) Eos % (Auto) Baso % (Auto) Lymph # (Auto) [place] # (Auto) Eos # (Auto) Baso # (Auto) Abs Immat Gran (auto) Absolute Neuts (auto) Absolute Nucleated RBC Nucleated RBC % (auto) PT INR APTT Sodium Potassium Chloride Carbon Dioxide Anion Gap BUN Creatinine Estim Creat Clear Calc Estimated GFR POC Glucose Random Glucose Estimat Average Glucose 103 Hemoglobin A1c % 5.2 Calcium Magnesium 2.1 Total Bilirubin AST ALT Alkaline Phosphatase Ammonia Total Protein Albumin Triglycerides 99 Cholesterol 127 LDL Cholesterol, Calc 74 HDL Cholesterol 34 Vitamin B12 Folate TSH 2.11 Free T4 0.98 Urine Color Urine Appearance Urine pH Ur Specific [place] Urine Protein Urine Glucose (UA) Urine Ketones Urine Blood Urine Nitrite Ur Leukocyte Esterase Urine RBC Urine WBC Ur Squamous Epith Cells Urine Bacteria Hyaline Casts Granular Casts Urine Mucus Urine Opiates Screen Urine Fentanyl Screen Ur Barbiturates Screen Ur Phencyclidine Scrn Ur Amphetamines Screen U Benzodiazepines Scrn Urine Cocaine Screen U Marijuana (THC) Screen Ethyl Alcohol COVID-19 (BLANCA) Negative COVID-19 [employer] Com See Note 01/12/22 08:51 WBC RBC Hgb Hct MCV MCH MCHC RDW Plt Count MPV Immature Gran % (Auto) Neut % (Auto) Lymph % (Auto) [place] % (Auto) Eos % (Auto) Baso % (Auto) Lymph # (Auto) [place] # (Auto) Eos # (Auto) Baso # (Auto) Abs Immat Gran (auto) Absolute Neuts (auto) Absolute Nucleated RBC Nucleated RBC % (auto) PT INR APTT Sodium Potassium Chloride Carbon Dioxide Anion Gap BUN Creatinine Estim Creat Clear Calc Estimated GFR POC Glucose Random Glucose Estimat Average Glucose Hemoglobin A1c % Calcium Magnesium Total Bilirubin AST ALT Alkaline Phosphatase [place]ia Total Protein Albumin Triglycerides Cholesterol LDL Cholesterol, Calc HDL Cholesterol Vitamin B12 350 Folate 12.5 TSH Free T4 Urine Color Urine Appearance Urine pH Ur Specific [place] Urine Protein Urine Glucose (UA) Urine Ketones Urine Blood Urine Nitrite Ur Leukocyte Esterase Urine RBC Urine WBC Ur Squamous Epith Cells Urine Bacteria Hyaline Casts Granular Casts Urine Mucus Urine Opiates Screen Urine Fentanyl Screen Ur Barbiturates Screen Ur Phencyclidine Scrn Ur Amphetamines Screen U Benzodiazepines Scrn Urine Cocaine Screen U Marijuana (THC) Screen Ethyl Alcohol COVID-19 (BLANCA) COVID-19 Clin Com Imaging Radiology Impressions: ITS Impressions Head CT 01/10/22 23:18 IMPRESSION: No acute intracranial pathology. Meds/Allergies Allergies Allergies Allergy/AdvReac Type Severity Reaction Status Date / Time Sulfa (Sulfonamide Allergy Intermediate hives Verified 12/27/21 13:12 Antibiotics) [SULFA (SULFONAMIDE ANTIBIOTICS)] Mental Status Exam Mental Status Exam Narrative: A&O but not to situation. Casual attire, well kempt. Good eye contact, inattentive. No Tics or Tremors. No abnormal involuntary movements, sitting in chair. Activated, guarded, but willing to engage in conversation. Somewhat pressured speech, spontaneous with regular rate and rhythm, normal volume and prosody. No prolonged speech latency or dysarthria. Mood is ?good,? affect is somewhat irritable. Denies SI/SIB/HI upon inquiry. Denies A/VH or delusional thought content. Thoughts are tangential. No known cognitive or memory impairment. Insight/ Judgment limited but adequate. Assessment & Plan Assessment & Plan (1) MDD (major depressive disorder), recurrent severe, without psychosis: Status: Acute Code(s): F33.2 - Major depressive disorder, recurrent severe without psychotic features Wesley Ingram is a 56 yold male who carries a dx of MDD recurrent, r/o schizoaffective disorder. He presented to [facility] on 01/10/2022 via section 12a for paranoid and A/VH. Per [facility] crisis, pt was paranoid, pacing during eval. He reportedly heard AH telling him to kill others, seeing cars following him. Reportedly pt has not been sleeping, pacing the hallways at night. Head CT showed no acute intracranial pathology. Utox positive for cannabis. Per chart review, pt has multiple co-morbid medical issues. No hx of previous psych IPLOC. No hx of antipsychotic or mood stabilizing medications. Pt was adherent with OP psych services up until 05/2021, was on wellbutrin XL and buspar up until 03/2021. Plan: Pt is not interested in medication management. Will speak with daughter to obtain collateral info. Pt is tangential and pressured, endorses AH but otherwise no behavioral issues observed, denies mood concerns. Q15 min safety checks, CV Monitor response to medications. Monitor for safety in the milieu. Discharge on stabilization. Patient seen. Chart reviewed. Discussed with team. Obtain collateral contact info?as needed Patient educated on: diagnosis, medication risk/benefits and therapeutic strategies Reason for continued inpatient stay Substantial Risk for: med/psych decompensation
[2022-01-12 21:30] VITALS: BP 140/64; PULSE 92; RESP 16; TEMP 36.3; O2SAT 97
[2022-01-12] MEDS: Milk of Magnesia 30 ML ORAL.SUSP PO (22:17)
[2022-01-13 08:15] VITALS: BP 131/60; PULSE 84; RESP 17; TEMP 36.6; O2SAT 100
[2022-01-13 09:41] VITALS: BMI 27.4
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
[2022-01-13 20:09] VITALS: BP 133/77; PULSE 90; RESP 16; TEMP 36.3; O2SAT 100
--- NOTE | 2022-01-14 07:02 | PC.NURSE ---
MARIJUANA VAPE CARTRIDGES FOUND AMOUNG BELONGINGS. DROPPED OUT OF BED LINEN WHEN ASSISTED WITH BLANKETS.
--- NOTE | 2022-01-14 11:45 | PC.NURSE ---
Late entry for 829: Reported by prop setter RN that when moving patients blankets vape pen cartridges were found. Security arrived on the unit to speak with the patient. Patient verbally agreed to room search from security and search of the body. No new contraband was found.??
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
[2022-01-14 22:00] VITALS: BP 132/61; PULSE 93; RESP 18; TEMP 35.9; O2SAT 97
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
[2022-01-15 22:13] VITALS: BP 136/67; PULSE 88; RESP 18; TEMP 36.4; O2SAT 100
--- NOTE | 2022-01-16 08:25 | PC.NURSE ---
I met with patient at length this morning and attempted patient education regarding aspirin and plavix. He concurs that he has had surgery on his right peroneal artery in 05/2021 and that his surgeon prescribed aspirin and plavix to thin his blood. My blood is thin enough now and I stopped taking these medicines a month ago. He remains paranoid and indicates he prefers natural remedies like marijuana. Patient was educated that marijuana is not an anticoagulant, that he is not using marijuana while he is here and that aspirin and plavix are ordered and indicated. He verbalized understanding and continued to refuse his plavix and aspirin.
[2022-01-16 08:30] VITALS: BP 149/69; PULSE 84; RESP 18; TEMP 36.5; O2SAT 99
--- NOTE | 2022-01-16 13:00 | HO.PSYCHPN ---
Subjective Subjective Date of Service: 01/16/22 Reason For Visit: Paranoia Subjective Notes: Logan Warning and Conditional Voluntary Interim History: I spoke with pt's team. I evaluated pt with financial legal assistant and he reports his visit with his daughter was calm, but his daughter recommended him to engage in treatment including trial medication, however pt says his decision is still no because this was a trick. Says he asked his duaghter to take him out of here but she will not, so he does not want to listen to her. Per pt, its a joke between the other sensor and here, when asked what the other sensor is, pt says the [facility] referring to his day program, says there's a lot of interest in him. I spoke with pt's daughter, she says her father told her he's in control and that the hospital staff are putting crystals in the patients, there's a chair you put the patients in and tie them up, tie their mouth, the nurses are agents who are playing him. Pt's daughter also spoke with her uncle/ pt's brother, as he has been calling pt while he is on the unit. Per daughter, her uncle told me he's not stable, he's not right. Medication Compliance: No Attending Groups: No Review of Systems Acute medical concerns: No Medical Review of Systems: unchanged Mental Status Exam Mental Status Exam Narrative: A&O but not to situation. Casual attire, well kempt. Good eye contact, inattentive. No Tics or Tremors. No abnormal involuntary movements, sitting in chair. Activated, guarded, but willing to engage in conversation. Somewhat pressured speech, spontaneous with regular rate and rhythm, normal volume and prosody. No prolonged speech latency or dysarthria. Mood is [does not state], affect is somewhat irritable. Denies SI/SIB/HI upon inquiry. Denies A/VH or delusional thought content. Thoughts are tangential, paranoid. No known cognitive or memory impairment. Insight/ Judgment limited but adequate. Diagnostics Vital Signs (24Hr): Vital Signs - 24 hr 01/15/22 22:13 01/16/22 08:30 Temperature 97.6 F 97.7 F Pulse Rate 88 84 Respiratory Rate 18 18 Blood Pressure 136/67 149/69 H Pulse Oximetry 100 99 Oxygen Delivery Method Room Air Room Air BMI result Body Mass Index 27.4 Labs Results: 01/10/22 21:41 01/10/22 21:41 Imaging Radiology Impressions: ITS Impressions Head CT 01/10/22 23:18 IMPRESSION: No acute intracranial pathology. Medications Medications Current Medications Acetaminophen (Acetaminophen 325 Mg Tablet) 650 mg PO Q6H PRN PRN Reason: Headache/Pain Mild Scale (1-3) Al Hydroxide/Mg Hydroxide (Magnesium Hydrox/Alum Hydrox 30 Ml Oral.Susp) 30 ml PO Q6H PRN PRN Reason: Heartburn/Nausea Aspirin (Aspirin 81 Mg Tab.Chew) 81 mg PO DAILY [facility] Last Admin: 01/16/22 10:05 Dose: Not Given Clopidogrel Bisulfate (Clopidogrel Bisulfate 75 Mg Tablet) 75 mg PO DAILY [facility] Last Admin: 01/16/22 10:05 Dose: Not Given Divalproex Sodium (Divalproex Sodium Er 500 Mg Tab.Er.24h) 500 mg PO BEDTIME [facility] Last Admin: 01/15/22 22:13 Dose: Not Given Hydroxyzine HCl (Hydroxyzine Hcl 25 Mg Tablet) 25 mg PO Q6H PRN PRN Reason: Anxiety Magnesium Hydroxide (Milk Of Magnesia 30 Ml Oral.Susp) 30 ml PO DAILY PRN PRN Reason: Constipation Last Admin: 01/12/22 22:17 Dose: 30 ml Trazodone HCl (Trazodone Hcl 50 Mg Tablet) 50 mg PO BEDTIME PRN PRN Reason: Insomnia Allergies Allergies Allergy/AdvReac Type Severity Reaction Status Date / Time Sulfa (Sulfonamide Allergy Intermediate hives Verified 12/27/21 13:12 Antibiotics) [SULFA (SULFONAMIDE ANTIBIOTICS)] Assessment & Plan Assessment & Plan (1) MDD (major depressive disorder), recurrent severe, without psychosis: Status: Acute Code(s): F33.2 - Major depressive disorder, recurrent severe without psychotic features Plan Juan Jose is a 56 yold male who carries a dx of MDD recurrent, r/o schizoaffective disorder. He presented to [facility] on 01/10/2022 via section 12a for paranoid and A/VH. Per [facility] crisis, pt was paranoid, pacing during eval. He reportedly heard AH telling him to kill others, seeing cars following him. Reportedly pt has not been sleeping, pacing the hallways at night. Head CT showed no acute intracranial pathology. Utox positive for cannabis. Per chart review, pt has multiple co-morbid medical issues. No hx of previous psych IPLOC. No hx of antipsychotic or mood stabilizing medications. Pt was adherent with OP psych services up until 05/2021, was on wellbutrin XL and buspar up until 03/2021. Plan: Pt is not interested in medication management. Will speak with daughter to obtain collateral info. Pt is tangential and pressured, endorses AH but otherwise no behavioral issues observed, denies mood concerns. 01/13: Pt is refusing medication intervention, lacks insight into his pressured speech, agitation, and tangential thoughts. Again left VM for daughter to obtain collateral info. 01/14: Will start depakote ER 500 mg QHS for mood lability and apparent manic sx. Did not start atypical due to metabolic SE, as pt has hx of obesity and is now s/p gastric bypass. Pt does not have hx of itz per collateral contact, however will treat sx at this time. Head CT negative. Utox only positive for cannabis. 01/15: Pt refusing depakote ER 500 mg QHS 01/16: Pt refusing depakote ER 500 mg QHS, continues to present with manic sx of hyposomnia, disorganized thoughts, and agitation. Will add abilify 5 mg daily, as pt is endorsing paranoid delusional thought content during interview and per collateral contact. Consideration made to use atypical with low metabolic SE profile. Q15 min safety checks, CV Monitor response to medications. Monitor for safety in the milieu. Discharge on stabilization. Patient seen. Chart reviewed. Discussed with team. Obtain collateral contact info?as needed I spent minutes with the patient and/or on the patient floor today, greater than?50% of which was spent counseling/coordinating care. Patient educated on: diagnosis, medication risk/benefits and therapeutic strategies Reason for contiued inpatient stay Substantial Risk for: harm to others, rapid decompensation and med/psych decompensation
[2022-01-16 21:19] VITALS: BP 156/69; PULSE 90; RESP 16; TEMP 36.4; O2SAT 99
[2022-01-17 08:50] VITALS: BP 132/60; PULSE 84; RESP 16; TEMP 36.6; O2SAT 99
--- NOTE | 2022-01-17 12:08 | HO.PSYCHPN ---
Subjective Subjective Date of Service: 01/17/22 Reason For Visit: Paranoia Subjective Notes: Section 7 Interim History: Met with pt and ANGEL Trinh. Pt reports he thinks being here is part of conspiracy. He reports he has land in [place] that has [place]. Pt reports he feels as if something is inside of me telling me that I am invinsible. Pt reports he is suspicious about taking any medications. Despite taking medical medication for prevention of DVT in past now very suspicious about it. He also reports he knows he does not have any medical problems. He reports hearing voices, even understanding peers who are mainly [place] speaking when he does not speak [place]. Pt reports hearing voices telling him to hurt other in defense but states not planning to hurt anyone yet. Medication Compliance: No Review of Systems Review of Systems paranoid. and auditory Yes all other systems are reviewed and are negative Mental Status Exam Mental Status Exam Narrative: A&O but not to situation. Casual attire, well kempt. Good eye contact, inattentive. No Tics or Tremors. No abnormal involuntary movements, sitting in chair. Activated, guarded, but willing to engage in conversation. Somewhat pressured speech, spontaneous with regular rate and rhythm, normal volume and prosody. No prolonged speech latency or dysarthria. Mood is [does not state], affect is somewhat irritable. Denies SI/SIB/HI upon inquiry. Denies A/VH or delusional thought content. Thoughts are tangential, paranoid. No known cognitive or memory impairment. Insight/ Judgment limited but adequate. Diagnostics Vital Signs (24Hr): Vital Signs - 24 hr 01/16/22 21:19 01/17/22 08:50 Temperature 97.5 F 97.9 F Pulse Rate 90 84 Respiratory Rate 16 16 Blood Pressure 156/69 H 132/60 Pulse Oximetry 99 99 Oxygen Delivery Method Room Air Room Air BMI result Body Mass Index 27.4 Labs Results: 01/10/22 21:41 01/10/22 21:41 Imaging Radiology Impressions: ITS Impressions Head CT 01/10/22 23:18 IMPRESSION: No acute intracranial pathology. Medications Medications Current Medications Acetaminophen (Acetaminophen 325 Mg Tablet) 650 mg PO Q6H PRN PRN Reason: Headache/Pain Mild Scale (1-3) Al Hydroxide/Mg Hydroxide (Magnesium Hydrox/Alum Hydrox 30 Ml Oral.Susp) 30 ml PO Q6H PRN PRN Reason: Heartburn/Nausea Aripiprazole (Aripiprazole 5 Mg Tablet) 5 mg PO DAILY [facility] Last Admin: 01/17/22 10:00 Dose: Not Given Aspirin (Aspirin 81 Mg Tab.Chew) 81 mg PO DAILY [facility] Last Admin: 01/17/22 10:00 Dose: Not Given Clopidogrel Bisulfate (Clopidogrel Bisulfate 75 Mg Tablet) 75 mg PO DAILY [facility] Last Admin: 01/17/22 10:00 Dose: Not Given Divalproex Sodium (Divalproex Sodium Er 500 Mg Tab.Er.24h) 500 mg PO BEDTIME [facility] Last Admin: 01/16/22 22:48 Dose: Not Given Hydroxyzine HCl (Hydroxyzine Hcl 25 Mg Tablet) 25 mg PO Q6H PRN PRN Reason: Anxiety Magnesium Hydroxide (Milk Of Magnesia 30 Ml Oral.Susp) 30 ml PO DAILY PRN PRN Reason: Constipation Last Admin: 01/12/22 22:17 Dose: 30 ml Trazodone HCl (Trazodone Hcl 50 Mg Tablet) 50 mg PO BEDTIME PRN PRN Reason: Insomnia Allergies Allergies Allergy/AdvReac Type Severity Reaction Status Date / Time Sulfa (Sulfonamide Allergy Intermediate hives Verified 12/27/21 13:12 Antibiotics) [SULFA (SULFONAMIDE ANTIBIOTICS)] Assessment & Plan Assessment & Plan (1) Bipolar disorder with psychotic features: Status: Acute Code(s): F31.9 - Bipolar disorder, unspecified Plan Juan Jose is a 56 yold male who carries a dx of MDD recurrent, r/o schizoaffective disorder. He presented to [facility] [place] [facility] on 01/10/2022 via section 12a for paranoid and A/VH. Per [facility] crisis, pt was paranoid, pacing during eval. He reportedly heard AH telling him to kill others, seeing cars following him. Reportedly pt has not been sleeping, pacing the hallways at night. Head CT showed no acute intracranial pathology. Utox positive for cannabis. Per chart review, pt has multiple co-morbid medical issues. No hx of previous psych IPLOC. No hx of antipsychotic or mood stabilizing medications. Pt was adherent with OP psych services up until 05/2021, was on wellbutrin XL and buspar up until 03/2021. Plan: Pt is not interested in medication management. Will speak with daughter to obtain collateral info. Pt is tangential and pressured, endorses AH but otherwise no behavioral issues observed, denies mood concerns. 01/13: Pt is refusing medication intervention, lacks insight into his pressured speech, agitation, and tangential thoughts. Again left for daughter to obtain collateral info. 01/14: Will start depakote ER 500 mg QHS for mood lability and apparent manic sx. Did not start atypical due to metabolic SE, as pt has hx of obesity and is now s/p gastric bypass. Pt does not have hx of itz per collateral contact, however will treat sx at this time. Head CT negative. Utox only positive for cannabis. 01/15: Pt refusing depakote ER 500 mg QHS 01/16: Pt refusing depakote ER 500 mg QHS, continues to present with manic sx of hyposomnia, disorganized thoughts, and agitation. Will add abilify 5 mg daily, as pt is endorsing paranoid delusional thought content during interview and per collateral contact. Consideration made to use atypical with low metabolic SE profile. Q15 min safety checks, CV Monitor response to medications. Monitor for safety in the milieu. Discharge on stabilization. Patient seen. Chart reviewed. Discussed with team. Obtain collateral contact info?as needed - pt informed of filing as pt continues paranoid, reporting CAH of hurting others. I spent minutes with the patient and/or on the patient floor today, greater than?50% of which was spent counseling/coordinating care. Reason for contiued inpatient stay Substantial Risk for: harm to others
[2022-01-18 08:34] VITALS: BP 138/69; PULSE 79; RESP 16; TEMP 36.6; O2SAT 98
--- NOTE | 2022-01-18 09:29 | P.PNPSI_ITS ---
Subjective Subjective Date of Service: 01/18/22 Reason For Visit: Paranoia Subjective Notes: Section 7 Interim History: Pt continues to report paranoia, thinking that being here is conspiracy. He thinks people may be going after him because he has land in [place] that he believes has gold, emeralds and diamonds underground. He does not think he needs any medications, thinks is poisoned even medication to prevent DVT which in the past he has accepted and taken with no concerns. Medication Compliance: Yes Side effects from medications: No Review of Systems Review of Systems paranoid. and auditory Yes all other systems are reviewed and are negative Mental Status Exam Mental Status Exam Narrative: A&O but not to situation. Casual attire, well kempt. Good eye contact, inattentive. No Tics or Tremors. No abnormal involuntary movements, sitting in chair. Activated, guarded, but willing to engage in conversation. Somewhat pressured speech, spontaneous with regular rate and rhythm, normal volume and prosody. No prolonged speech latency or dysarthria. Mood is [does not state], affect is somewhat irritable. Denies SI/SIB/HI upon inquiry. Denies A/VH or delusional thought content. Thoughts are tangential, paranoid. No known cognitive or memory impairment. Insight/ Judgment limited but adequate. Diagnostics Vital Signs (24Hr): Vital Signs - 24 hr 01/18/22 20:41 01/19/22 08:53 Temperature 97.4 F 97.7 F Pulse Rate 88 82 Respiratory Rate 16 17 Blood Pressure 110/64 128/67 Pulse Oximetry 98 98 Oxygen Delivery Method Room Air Room Air BMI result Body Mass Index 27.4 Labs Results: 01/10/22 21:41 01/10/22 21:41 Imaging Radiology Impressions: ITS Impressions Head CT 01/10/22 23:18 IMPRESSION: No acute intracranial pathology. Medications Medications Current Medications Acetaminophen (Acetaminophen 325 Mg Tablet) 650 mg PO Q6H PRN PRN Reason: Headache/Pain Mild Scale (1-3) Al Hydroxide/Mg Hydroxide (Magnesium Hydrox/Alum Hydrox 30 Ml Oral.Susp) 30 ml PO Q6H PRN PRN Reason: Heartburn/Nausea Aripiprazole (Aripiprazole 5 Mg Tablet) 5 mg PO DAILY [facility] Last Admin: 01/19/22 08:59 Dose: Not Given Aspirin (Aspirin 81 Mg Tab.Chew) 81 mg PO DAILY [facility] Last Admin: 01/19/22 08:59 Dose: Not Given Clopidogrel Bisulfate (Clopidogrel Bisulfate 75 Mg Tablet) 75 mg PO DAILY [facility] Last Admin: 01/19/22 08:59 Dose: Not Given Divalproex Sodium (Divalproex Sodium Er 500 Mg Tab.Er.24h) 500 mg PO BEDTIME [facility]PLACED BY [facility] Last Admin: 01/18/22 20:42 Dose: Not Given Hydroxyzine HCl (Hydroxyzine Hcl 25 Mg Tablet) 25 mg PO Q6H PRN PRN Reason: Anxiety Magnesium Hydroxide (Milk Of Magnesia 30 Ml Oral.Susp) 30 ml PO DAILY PRN PRN Reason: Constipation Last Admin: 01/12/22 22:17 Dose: 30 ml Trazodone HCl (Trazodone Hcl 50 Mg Tablet) 50 mg PO BEDTIME PRN PRN Reason: Insomnia Allergies Allergies Allergy/AdvReac Type Severity Reaction Status Date / Time Sulfa (Sulfonamide Allergy Intermediate hives Verified 12/27/21 13:12 Antibiotics) [SULFA (SULFONAMIDE ANTIBIOTICS)] Assessment & Plan Assessment & Plan (1) Bipolar disorder with psychotic features: Status: Acute Code(s): F31.9 - Bipolar disorder, unspecified Plan Juan Jose is a 56 yold male who carries a dx of MDD recurrent, r/o schizoaffective disorder. He presented to [facility] on 01/10/2022 via section 12a for paranoid and A/VH. Per [facility] crisis, pt was paranoid, pacing during eval. He reportedly heard AH telling him to kill others, seeing cars following him. Reportedly pt has not been sleeping, pacing the hallways at night. Head CT showed no acute intracranial pathology. Utox positive for cannabis. Per chart review, pt has multiple co-morbid medical issues. No hx of previous psych IPLOC. No hx of an tipsychotic or mood stabilizing medications. Pt was adherent with OP psych services up until 05/2021, was on wellbutrin XL and buspar up until 03/2021. Plan: Pt is not interested in medication management. Will speak with daughter to obtain collateral info. Pt is tangential and pressured, endorses AH but otherwise no behavioral issues observed, denies mood concerns. 01/13: Pt is refusing medication intervention, lacks insight into his pressured speech, agitation, and tangential thoughts. Again left for daughter to obtain collateral info. 01/14: Will start depakote ER 500 mg QHS for mood lability and apparent manic sx. Did not start atypical due to metabolic SE, as pt has hx of obesity and is now s/p gastric bypass. Pt does not have hx of itz per collateral contact, however will treat sx at this time. Head CT negative. Utox only positive for cannabis. 01/15: Pt refusing depakote ER 500 mg QHS 01/16: Pt refusing depakote ER 500 mg QHS, continues to present with manic sx of hyposomnia, disorganized thoughts, and agitation. Will add abilify 5 mg daily, as pt is endorsing paranoid delusional thought content during interview and per collateral contact. Consideration made to use atypical with low metabolic SE profile. Q15 min safety checks, CV Monitor response to medications. Monitor for safety in the milieu. Discharge on stabilization. Patient seen. Chart reviewed. Discussed with team. Obtain collateral contact info?as needed 01/17- pt informed of filing as pt continues paranoid, reporting CAH of hurting others. 01/18 continue current medications I spent minutes with the patient and/or on the patient floor today, greater than?50% of which was spent counseling/coordinating care. Reason for contiued inpatient stay Substantial Risk for: inability to function
[2022-01-18 20:41] VITALS: BP 110/64; PULSE 88; RESP 16; TEMP 36.3; O2SAT 98
[2022-01-19 08:53] VITALS: BP 128/67; PULSE 82; RESP 17; TEMP 36.5; O2SAT 98
--- NOTE | 2022-01-19 12:29 | P.PNPSI_ITS ---
Subjective Subjective Date of Service: 01/19/22 Reason For Visit: Paranoia Subjective Notes: Section 7 Interim History: Pt continues to report that he thinks outside someone may be after him and his property in [place]. Pt is not reporting homicidal ideation towards anyone in particular but feels that he may have to defend him self. He thinks being here in hospital is part of conspiracy and staff is playing games with me. He thinks staff injecting crystal meth to other pts. He continues to refuse medical medications stating he knows he does not need them and does not trust any drugs. Medication Compliance: Yes Side effects from medications: No Attending Groups: No Review of Systems Review of Systems paranoid. and auditory Yes all other systems are reviewed and are negative Mental Status Exam Mental Status Exam Narrative: A&O but not to situation. Casual attire, well kempt. Good eye contact, inattentive. No Tics or Tremors. No abnormal involuntary movements, sitting in chair. Activated, guarded, but willing to engage in conversation. Somewhat pressured speech, spontaneous with regular rate and rhythm, normal volume and prosody. No prolonged speech latency or dysarthria. Mood is [does not state], affect is somewhat irritable. Denies SI/SIB/HI upon inquiry. Denies A/VH or delusional thought content. Thoughts are tangential, paranoid. No known cognitive or memory impairment. Insight/ Judgment limited but adequate. Diagnostics Vital Signs (24Hr): Vital Signs - 24 hr 01/19/22 08:53 01/19/22 21:52 01/20/22 08:13 Temperature 97.7 F 97.8 F 97.3 F Pulse Rate 82 85 78 Respiratory Rate 17 20 Blood Pressure 128/67 131/62 132/60 Pulse Oximetry 98 98 98 Oxygen Delivery Method Room Air Room Air Room Air BMI result Body Mass Index 27.4 Labs Results: 01/10/22 21:41 01/10/22 21:41 Imaging Radiology Impressions: ITS Impressions Head CT 01/10/22 23:18 IMPRESSION: No acute intracranial pathology. Medications Medications Current Medications Acetaminophen (Acetaminophen 325 Mg Tablet) 650 mg PO Q6H PRN PRN Reason: Headache/Pain Mild Scale (1-3) Al Hydroxide/Mg Hydroxide (Magnesium Hydrox/Alum Hydrox 30 Ml Oral.Susp) 30 ml PO Q6H PRN PRN Reason: Heartburn/Nausea Aripiprazole (Aripiprazole 5 Mg Tablet) 5 mg PO DAILY [facility] Last Admin: 01/19/22 08:59 Dose: Not Given Aspirin (Aspirin 81 Mg Tab.Chew) 81 mg PO DAILY [facility] Last Admin: 01/19/22 08:59 Dose: Not Given Clopidogrel Bisulfate (Clopidogrel Bisulfate 75 Mg Tablet) 75 mg PO DAILY [facility] Last Admin: 01/19/22 08:59 Dose: Not Given Divalproex Sodium (Divalproex Sodium Er 500 Mg Tab.Er.24h) 500 mg PO BEDTIME [facility] Last Admin: 01/19/22 21:20 Dose: Not Given Hydroxyzine HCl (Hydroxyzine Hcl 25 Mg Tablet) 25 mg PO Q6H PRN PRN Reason: Anxiety Magnesium Hydroxide (Milk Of Magnesia 30 Ml Oral.Susp) 30 ml PO DAILY PRN PRN Reason: Constipation Last Admin: 01/12/22 22:17 Dose: 30 ml Trazodone HCl (Trazodone Hcl 50 Mg Tablet) 50 mg PO BEDTIME PRN PRN Reason: Insomnia Allergies Allergies Allergy/AdvReac Type Severity Reaction Status Date / Time Sulfa (Sulfonamide Allergy Intermediate hives Verified 12/27/21 13:12 Antibiotics) [SULFA (SULFONAMIDE ANTIBIOTICS)] Assessment & Plan Assessment & Plan (1) Bipolar disorder with psychotic features: Status: Acute Code(s): F31.9 - Bipolar disorder, unspecified Plan Juan Jose is a 56 yold male who carries a dx of MDD recurrent, r/o schizoaffective disorder. He presented to [facility] [place] via section 12a for paranoid and A/VH. Per [facility] crisis, pt was paranoid, pacing during eval. He reportedly heard A H telling him to kill others, seeing cars following him. Reportedly pt has not been sleeping, pacing the hallways at night. Head CT showed no acute intracranial pathology. Utox positive for cannabis. Per chart review, pt has multiple co-morbid medical issues. No hx of previous psych IPLOC. No hx of antipsychotic or mood stabilizing medications. Pt was adherent with OP psych services up until 05/2021, was on wellbutrin XL and buspar up until 03/2021. Plan: Pt is not interested in medication management. Will speak with daughter to obtain collateral info. Pt is tangential and pressured, endorses AH but otherwise no behavioral issues observed, denies mood concerns. 01/13: Pt is refusing medication intervention, lacks insight into his pressured speech, agitation, and tangential thoughts. Again left VM for daughter to obtain collateral info. 01/14: Will start depakote ER 500 mg QHS for mood lability and apparent manic sx. Did not start atypical due to metabolic SE, as pt has hx of obesity and is now s/p gastric bypass. Pt does not have hx of itz per collateral contact, however will treat sx at this time. Head CT negative. Utox only positive for cannabis. 01/15: Pt refusing depakote ER 500 mg QHS 01/16: Pt refusing depakote ER 500 mg QHS, continues to present with manic sx of hyposomnia, disorganized thoughts, and agitation. Will add abilify 5 mg daily, as pt is endorsing paranoid delusional thought content during interview and per collateral contact. Consideration made to use atypical with low metabolic SE profile. Q15 min safety checks, CV Monitor response to medications. Monitor for safety in the milieu. Discharge on stabilization. Patient seen. Chart reviewed. Discussed with team. Obtain collateral contact info?as needed 01/17- pt informed of filing as pt continues paranoid, reporting CAH of hurting others. 01/18 continue current medications 01/19 continue current medications. I spent minutes with the patient and/or on the patient floor today, greater than?50% of which was spent counseling/coordinating care. Reason for contiued inpatient stay Substantial Risk for: harm to others and inability to function
[2022-01-19 21:52] VITALS: BP 131/62; PULSE 85; TEMP 36.6; O2SAT 98
[2022-01-20 07:00] VITALS: BMI 28.5
[2022-01-20 08:13] VITALS: BP 132/60; PULSE 78; RESP 20; TEMP 36.3; O2SAT 98
--- NOTE | 2022-01-20 11:25 | P.PNPSI_ITS ---
Subjective Subjective Date of Service: 01/20/22 Reason For Visit: Paranoia Subjective Notes: Section 7 Interim History: Pt continues to present with paranoia. He declines medications. He denies SI/HI. Court hearing today- pt was committed. Pt upset and thinks court is also part of conspiracy. He talks to himself, paranoid. Not sleeping. Medication Compliance: No Review of Systems Review of Systems paranoid. and auditory Yes all other systems are reviewed and are negative Mental Status Exam Mental Status Exam Narrative: A&O but not to situation. Casual attire, well kempt. Good eye contact, inattentive. No Tics or Tremors. No abnormal involuntary movements, sitting in chair. Activated, guarded, but willing to engage in conversation. Somewhat pressured speech, spontaneous with regular rate and rhythm, normal volume and prosody. No prolonged speech latency or dysarthria. Mood is [does not state], affect is somewhat irritable. Denies SI/SIB/HI upon inquiry. Denies A/VH or delusional thought content. Thoughts are tangential, paranoid. No known cognit nancy or memory impairment. Insight/ Judgment limited but adequate. Diagnostics Vital Signs (24Hr): Vital Signs - 24 hr 01/21/22 09:00 01/21/22 21:24 Temperature 97.2 F 97.8 F Pulse Rate 80 84 Respiratory Rate 18 Blood Pressure 155/71 H 148/67 H Pulse Oximetry 100 100 Oxygen Delivery Method Room Air Room Air BMI result Body Mass Index 28.5 Labs Results: 01/10/22 21:41 01/10/22 21:41 Imaging Radiology Impressions: ITS Impressions Head CT 01/10/22 23:18 IMPRESSION: No acute intracranial pathology. Medications Medications Current Medications Acetaminophen (Acetaminophen 325 Mg Tablet) 650 mg PO Q6H PRN PRN Reason: Headache/Pain Mild Scale (1-3) Al Hydroxide/Mg Hydroxide (Magnesium Hydrox/Alum Hydrox 30 Ml Oral.Susp) 30 ml PO Q6H PRN PRN Reason: Heartburn/Nausea Aspirin (Aspirin 81 Mg Tab.Chew) 81 mg PO DAILY [facility] Last Admin: 01/21/22 10:27 Dose: Not Given Clopidogrel Bisulfate (Clopidogrel Bisulfate 75 Mg Tablet) 75 mg PO DAILY [facility] Last Admin: 01/21/22 10:27 Dose: Not Given Divalproex Sodium (Divalproex Sodium Er 500 Mg Tab.Er.24h) 500 mg PO BEDTIME [facility] Last Admin: 01/21/22 21:53 Dose: Not Given Hydroxyzine HCl (Hydroxyzine Hcl 25 Mg Tablet) 25 mg PO Q6H PRN PRN Reason: Anxiety Magnesium Hydroxide (Milk Of Magnesia 30 Ml Oral.Susp) 30 ml PO DAILY PRN PRN Reason: Constipation Last Admin: 01/12/22 22:17 Dose: 30 ml Olanzapine (Olanzapine 10 Mg Vial) 10 mg IM BID PRN PRN Reason: if refuses oral risperidone Risperidone (Risperidone 1 Mg Tablet) 1 mg PO BID [facility] Trazodone HCl (Trazodone Hcl 50 Mg Tablet) 50 mg PO BEDTIME PRN PRN Reason: Insomnia Allergies Allergies Allergy/AdvReac Type Severity Reaction Status Date / Time Sulfa (Sulfonamide Allergy Intermediate hives Verified 12/27/21 13:12 Antibiotics) [SULFA (SULFONAMIDE ANTIBIOTICS)] Assessment & Plan Assessment & Plan (1) Bipolar disorder with psychotic features: Status: Acute Code(s): F31.9 - Bipolar disorder, unspecified Plan Juan Jose is a 56 yold male who carries a dx of MDD recurrent, r/o schizoaffective disorder. He presented [place] [facility] [place] via section 12a for paranoid and A/VH. Per [facility] crisis, pt was paranoid, pacing during eval. He reportedly heard AH telling him to kill others, seeing cars following him. Reportedly pt has not been sleeping, pacing the hallways at night. Head CT showed no acute intracr anial pathology. Utox positive for cannabis. Per chart review, pt has multiple co-morbid medical issues. No hx of previous psych IPLOC. No hx of antipsychotic or mood stabilizing medications. Pt was adherent with OP psych services up until 05/2021, was on wellbutrin XL and buspar up until 03/2021. Plan: Pt is not interested in medication management. Will speak with daughter to obtain collateral info. Pt is tangential and pressured, endorses AH but otherwise no behavioral issues observed, denies mood concerns. 01/13: Pt is refusing medication intervention, lacks insight into his pressured speech, agitation, and tangential thoughts. Again left VM for daughter to obtain collateral info. 01/14: Will start depakote ER 500 mg QHS for mood lability and apparent manic sx. Did not start atypical due to metabolic SE, as pt has hx of obesity and is now s/p gastric bypass. Pt does not have hx of itz per collateral contact, however will treat sx at this time. Head CT negative. Utox only positive for cannabis. 01/15: Pt refusing depakote ER 500 mg QHS 01/16: Pt refusing depakote ER 500 mg QHS, continues to present with manic sx of hyposomnia, disorganized thoughts, and agitation. Will add abilify 5 mg daily, as pt is endorsing paranoid delusional thought content during interview and per collateral contact. Consideration made to use atypical with low metabolic SE profile. Q15 min safety checks, CV Monitor response to medications. Monitor for safety in the milieu. Discharge on stabilization. Patient seen. Chart reviewed. Discussed with team. Obtain collateral contact info?as needed 01/17- pt informed of filing as pt continues paranoid, reporting CAH of hurting others. 01/18 continue current medications 01/19 continue current medications. committed to hospital, on section 8. Will start risperidone, back up Olanzapine IM if refuses oral. continue depakote. I spent minutes with the patient and/or on the patient floor today, greater than?50% of which was spent counseling/coordinating care. Reason for contiued inpatient stay Substantial Risk for: harm to others and inability to function
--- NOTE | 2022-01-20 11:54 | PC.NURSE ---
Late entry: Patient approached w/ interpretation assistance and offered all medications. Patient declined, repeatedly stating 'this is just a game.
--- NOTE | 2022-01-20 16:48 | PC.NURSE ---
1530: report given to Lynda MONTOYA
[2022-01-20 18:00] VITALS: RESP 18
--- NOTE | 2022-01-20 23:25 | PC.NURSE ---
Pt agitated during assessment and perseverating on wanting to leave the facility and wanting to talk with someone who can get him out of the facility. Explained to pt the court today mandated his treatment as an inpatient. Pt dns depression, sts anxiety only relates to wanting to leave, dns SI/HI/AH/VH and sts ?Everything in my head is about wanting to leave.? During assessment, pt was animated extending his hands and gesticulating with no respect for boundaries. Pt was observed pacing the halls, appearing to be INAD. Keeps to self, and when engaged expresses dissatisfaction with situation. Because of patient?s agitation, evening VS were not done. Pt's breathing was even and unlabored. Pt later requested not to be disturbed in his room so VS remained unassessed for the evening.
[2022-01-21 09:00] VITALS: BP 155/71; PULSE 80; RESP 18; TEMP 36.2; O2SAT 100
--- NOTE | 2022-01-21 12:17 | HO.PSYCHPN ---
Subjective Subjective Date of Service: 01/21/22 Reason For Visit: Paranoia Subjective Notes: Section 8 Interim History: Pt with intense look, threatening to clarissa the hospital, posturing towards this poem writer, stating I will not be poisoned with any drugs! He is paranoid, inspecting his peers, dropping cereal on the nunez as a trails. He continues not to sleep. Medication Compliance: No Side effects from medications: No Review of Systems Review of Systems paranoid. and auditory Yes all other systems are reviewed and are negative Mental Status Exam Mental Status Exam Narrative: A&O but not to situation. Casual attire, well kempt. Good eye contact, inattentive. No Tics or Tremors. No abnormal involuntary movements, sitting in chair. Activated, guarded, but willing to engage in conversation. Somewhat pressured speech, spontaneous with regular rate and rhythm, normal volume and prosody. No prolonged speech latency or dysarthria. Mood is [does not state], affect is somewhat irritable. Denies SI/SIB/HI upon inquiry. Denies A/VH or delusional thought content. Thoughts are tangential, paranoid. No known cognitive or memory impairment. Insight/ Judgment limited but adequate. Diagnostics Vital Signs (24Hr): Vital Signs - 24 hr 01/21/22 09:00 01/21/22 21:24 Temperature 97.2 F 97.8 F Pulse Rate 80 84 Respiratory Rate 18 Blood Pressure 155/71 H 148/67 H Pulse Oximetry 100 100 Oxygen Delivery Method Room Air Room Air BMI result Body Mass Index 28.5 Labs Results: 01/10/22 21:41 01/10/22 21:41 Imaging Radiology Impressions: ITS Impressions Head CT 01/10/22 23:18 IMPRESSION: No acute intracranial pathology. Medications Medications Current Medications Acetaminophen (Acetaminophen 325 Mg Tablet) 650 mg PO Q6H PRN PRN Reason: Headache/Pain Mild Scale (1-3) Al Hydroxide/Mg Hydroxide (Magnesium Hydrox/Alum Hydrox 30 Ml Oral.Susp) 30 ml PO Q6H PRN PRN Reason: Heartburn/Nausea Aspirin (Aspirin 81 Mg Tab.Chew) 81 mg PO DAILY [facility] Last Admin: 01/21/22 10:27 Dose: Not Given Clopidogrel Bisulfate (Clopidogrel Bisulfate 75 Mg Tablet) 75 mg PO DAILY [facility] Last Admin: 01/21/22 10:27 Dose: Not Given Divalproex Sodium (Divalproex Sodium Er 500 Mg Tab.Er.24h) 500 mg PO BEDTIME [facility] Last Admin: 01/21/22 21:53 Dose: Not Given Hydroxyzine HCl (Hydroxyzine Hcl 25 Mg Tablet) 25 mg PO Q6H PRN PRN Reason: Anxiety Magnesium Hydroxide (Milk Of Magnesia 30 Ml Oral.Susp) 30 ml PO DAILY PRN PRN Reason: Constipation Last Admin: 01/12/22 22:17 Dose: 30 ml Olanzapine (Olanzapine 10 Mg Vial) 10 mg IM BID PRN PRN Reason: if refuses oral risperidone Risperidone (Risperidone 1 Mg Tablet) 1 mg PO BID [facility] Trazodone HCl (Trazodone Hcl 50 Mg Tablet) 50 mg PO BEDTIME PRN PRN Reason: Insomnia Allergies Allergies Allergy/AdvReac Type Severity Reaction Status Date / Time Sulfa (Sulfonamide Allergy Intermediate hives Verified 12/27/21 13:12 Antibiotics) [SULFA (SULFONAMIDE ANTIBIOTICS)] Assessment & Plan Assessment & Plan (1) Bipolar disorder with psychotic features: Status: Acute Code(s): F31.9 - Bipolar disorder, unspecified Plan Juan Jose is a 56 yold male who carries a dx of MDD recurrent, r/o schizoaffective disorder. He presented to [facility] ED on 01/10/2022 via section 12a for paranoid and A/VH. Per [facility] crisis, pt was paranoid, pacing during eval. He reportedly heard AH telling him to kill others, seeing cars following him. Reportedly pt has not been sleeping, pacing the hallways at night. Head CT showed no acute intracranial pathology. Utox positive for cannabis. Per chart review, pt has multiple co-morbid medical issues. No hx of previous psych IPLOC. No hx of antipsychotic or mood stabilizing medications. Pt was adherent with OP psych services up until 05/2021, was on wellbutrin XL and buspar up until 03/2021. Plan: Pt is not interested in medication management. Will speak with daughter to obtain collateral info. Pt is tangential and pressured, endorses AH but otherwise no behavioral issues observed, denies mood concerns. 01/13: Pt is refusing medication intervention, lacks insight into his pressured speech, agitation, and tangential thoughts. Again left VM for daughter to obtain collateral info. 01/14: Will start depakote ER 500 mg QHS for mood lability and apparent manic sx. Did not start atypical due to metabolic SE, as pt has hx of obesity and is now s/p gastric bypass. Pt does not have hx of itz per collateral contact, however will treat sx at this time. Head CT negative. Utox only positive for cannabis. 01/15: Pt refusing depakote ER 500 mg QHS 01/16: Pt refusing depakote ER 500 mg QHS, continues to present with manic sx of hyposomnia, disorganized thoughts, and agitation. Will add abilify 5 mg daily, as pt is endorsing paranoid delusional thought content during interview and per collateral contact. Consideration made to use atypical with low metabolic SE profile. Q15 min safety checks, CV Monitor response to medications. Monitor for safety in the milieu. Discharge on stabilization. Patient seen. Chart reviewed. Discussed with team. Obtain collateral contact info?as needed 01/17- pt informed of filing as pt continues paranoid, reporting CAH of hurting others. 01/18 continue current medications 01/19 continue current medications. committed to hospital, on section 8. Will start risperidone, back up Olanzapine IM if refuses oral. continue depakote. 01/21 Section 8- oral risperidone, back up Olanzapine IM. I spent minutes with the patient and/or on the patient floor today, greater than?50% of which was spent counseling/coordinating care. Reason for contiued inpatient stay Substantial Risk for: harm to others and inability to function
[2022-01-21 21:24] VITALS: BP 148/67; PULSE 84; TEMP 36.6; O2SAT 100
[2022-01-22 08:45] VITALS: BP 130/86; PULSE 83; RESP 18; TEMP 36.4; O2SAT 100
[2022-01-22] MEDS: OLANZapine 10 MG VIAL IM ×2 (09:36→20:04)
--- NOTE | 2022-01-22 09:42 | P.PNPSI_ITS ---
Subjective Subjective Date of Service: 01/22/22 Reason For Visit: Paranoia Subjective Notes: Section 8 Healthcare Proxy: No Guardianship: No Medical Problems Affecting Mental Status: No Interim History: Patient was seen and discussed in rounds today. Records and plans were reviewed. He has a right years in place and if his medication is refused he is to be given IM Zyprexa. He was extremely loud, aggressive and agitated this morning. He was seen with the help of an conversion developer. He eventually needed to be restrained physically in a restraint chair and IM Zyprexa and Versed were given. He is sitting in his chair comfortably and not screaming. He has not been now medication compliant. Slept only 2 hours last night. He is responding to internal stimuli. Risk with all is going to be changed to an tab or liquid. Medication Compliance: No Attending Groups: No Mental Status Exam Mental Status Exam Narrative: In today's visit he could not be examined formally. He is loud, screaming and noncompliant. He required to be restrained physically and chemically Diagnostics Vital Signs (24Hr): Vital Signs - 24 hr 01/21/22 21:24 Temperature 97.8 F Pulse Rate 84 Blood Pressure 148/67 H Pulse Oximetry 100 Oxygen Delivery Method Room Air BMI result Body Mass Index 28.5 Labs Results: 01/10/22 21:41 01/10/22 21:41 Imaging Radiology Impressions: ITS Impressions Head CT 01/10/22 23:18 IMPRESSION: No acute intracranial pathology. Medications Medications Current Medications Acetaminophen (Acetaminophen 325 Mg Tablet) 650 mg PO Q6H PRN PRN Reason: Headache/Pain Mild Scale (1-3) Al Hydroxide/Mg Hydroxide (Magnesium Hydrox/Alum Hydrox 30 Ml Oral.Susp) 30 ml PO Q6H PRN PRN Reason: Heartburn/Nausea Aspirin (Aspirin 81 Mg Tab.Chew) 81 mg PO DAILY [facility] Last Admin: 01/21/22 10:27 Dose: Not Given Clopidogrel Bisulfate (Clopidogrel Bisulfate 75 Mg Tablet) 75 mg PO DAILY [facility] Last Admin: 01/21/22 10:27 Dose: Not Given Divalproex Sodium (Divalproex Sodium Er 500 Mg Tab.Er.24h) 500 mg PO BEDTIME [facility] Last Admin: 01/21/22 21:53 Dose: Not Given Hydroxyzine HCl (Hydroxyzine Hcl 25 Mg Tablet) 25 mg PO Q6H PRN PRN Reason: Anxiety Magnesium Hydroxide (Milk Of Magnesia 30 Ml Oral.Susp) 30 ml PO DAILY PRN PRN Reason: Constipation Last Admin: 01/12/22 22:17 Dose: 30 ml Olanzapine (Olanzapine 10 Mg Vial) 10 mg IM BID PRN PRN Reason: if refuses oral risperidone Last Admin: 01/22/22 09:36 Dose: 10 mg Risperidone (Risperidone 1 Mg Tablet) 1 mg PO BID [facility] Trazodone HCl (Trazodone Hcl 50 Mg Tablet) 50 mg PO BEDTIME PRN PRN Reason: Insomnia Allergies Allergies Allergy/AdvReac Type Severity Reaction Status Date / Time Sulfa (Sulfonamide Allergy Intermediate hives Verified 12/27/21 13:12 Antibiotics) [SULFA (SULFONAMIDE ANTIBIOTICS)] Assessment & Plan Assessment & Plan (1) Bipolar disorder with psychotic features: Status: Acute Code(s): F31.9 - Bipolar disorder, unspecified Plan Juan Jose is a 56 yold male who carries a dx of MDD recurrent, r/o schizoaffective disorder. He presented to [facility] on 01/10/2022 via section 12a for paranoid and A/VH. Per [facility] crisis, pt was paranoid, pacing during eval. He reportedly heard telling him to kill others, seeing cars following him. Reportedly pt has not been sleeping, pacing the hallways at night. Head CT showed no acute intracranial pathology. Utox positive for cannabis. Per chart review, pt has multiple co-morbid medical issues. No hx of previous psych IPLOC. No hx of antipsychotic or mood stabilizing medications. Pt was adherent with OP psych services up until 05/2021, was on wellbutrin XL and buspar up until 03/2021. Plan: Pt is not interested in medication management. Will speak with daughter to obtain collateral info. Pt is tangential and pressured, endorses AH but otherwise no behavioral issues observed, denies mood concerns. 01/13: Pt is refusing medication intervention, lacks insight into his pressured speech, agitation, and tangential thoughts. Again left for daughter to obtain collateral info. 01/14: Will start depakote ER 500 mg QHS for mood lability and apparent manic sx. Did not start atypical due to metabolic SE, as pt has hx of obesity and is now s/p gastric bypass. Pt does not have hx of itz per collateral contact, however will treat sx at this time. Head CT negative. Utox only positive for cannabis. 01/15: Pt refusing depakote ER 500 mg QHS 01/16: Pt refusing depakote ER 500 mg QHS, continues to present with manic sx of hyposomnia, disorganized thoughts, and agitation. Will add abilify 5 mg daily, as pt is endorsing paranoid delusional thought content during interview and per collateral contact. Consideration made to use atypical with low metabolic SE profile. Q15 min safety checks, CV Monitor response to medications. Monitor for safety in the milieu. Discharge on stabilization. Patient seen. Chart reviewed. Discussed with team. Obtain collateral contact info?as needed 01/17- pt informed of filing as pt continues paranoid, reporting CAH of hurting others. 01/18 continue current medications 01/19 continue current medications. committed to hospital, on section 8. Will start risperidone, back up Olanzapine IM if refuses oral. continue depakote. 01/21 Section 8- oral risperidone, back up Olanzapine IM. 01/22: Continue current regimen and plans I spent minutes with the patient and/or on the patient floor today, greater than?50% of which was spent counseling/coordinating care. Reason for contiued inpatient stay Substantial Risk for: rapid decompensation and med/psych decompensation
[2022-01-22] MEDS: Midazolam HCl/PF 2 MG/2 ML VIAL IM (09:48)
--- NOTE | 2022-01-22 15:58 | PC.NURSE ---
Met with patient with hourly sign language interpreter Yolanda this morning. Patient requested to take photograph of 2 trays, standing up to look like twin [place] so he could show his grandchild where he has been. Informed patient this unit did not allow for pictures due to privacy guidelines. Asked patient if he remembered court hearing upon which he stated he did. Informed patient the court had supported request to medicate patient. Offered patient oral medication informing patient if he did not take, he would be given injection. Patient refused oral medication stating wait and see what happens (regarding IM administration). Patient became increasingly agitated, angry, threatening. Kicked jennifer port doors, stating bring security . [place] speaking staff arrived to unit, security arrived to unit to assist. [place] speaking RN offered medication PO, explained again election judge made decision through [place] to administer medication. Patient continued to make threats remember my face because I am going to remember all of yours dare you to try posturing toward staff. Upon approach patient swung at staff with closed fist. Patient placed in restraint chair, IM Olanzapine 10 mg administered, Versed 2mg IM administered.
[2022-01-23 08:24] VITALS: BP 143/68; PULSE 85; TEMP 36.4; O2SAT 99
--- NOTE | 2022-01-23 08:54 | HO.PSYCHPN ---
Subjective Subjective Date of Service: 01/23/22 Reason For Visit: Paranoia Subjective Notes: Section 8 Healthcare Proxy: No Guardianship: No Medical Problems Affecting Mental Status: No Interim History: Patient was seen and discussed in rounds today. Records and plans were reviewed. He did better after receiving IM yesterday morning. In the evening he again refused oral medications but took the IM medication without much difficulty. This morning he is calm, cooperative and interactive within his means. He denied any problems or side effects. Eating and sleeping adequately. No changes were made today Medication Compliance: No Attending Groups: No Review of Systems Review of Systems Yes Unobtainable due to mental status Mental Status Exam Mental Status Exam Narrative: In today's visit he is alert, pleasant and interactive within his means. Speech is soft-spoken. Moderate eye contact. Affect is contained. No overt aggressive behaviors or irritability. Could not assess symptoms of psychosis. No dangerous behaviors. Could not be assessed cognitively. Judgment is marginally intact Diagnostics Vital Signs (24Hr): Vital Signs - 24 hr 01/23/22 08:24 Temperature 97.6 F Pulse Rate 85 Blood Pressure 143/68 H Pulse Oximetry 99 Oxygen Delivery Method Room Air BMI result Body Mass Index 28.5 Labs Results: 01/10/22 21:41 01/10/22 21:41 Imaging Radiology Impressions: ITS Impressions Head CT 01/10/22 23:18 IMPRESSION: No acute intracranial pathology. Medications Medications Current Medications Acetaminophen (Acetaminophen 325 Mg Tablet) 650 mg PO Q6H PRN PRN Reason: Headache/Pain Mild Scale (1-3) Al Hydroxide/Mg Hydroxide (Magnesium Hydrox/Alum Hydrox 30 Ml Oral.Susp) 30 ml PO Q6H PRN PRN Reason: Heartburn/Nausea Aspirin (Aspirin 81 Mg Tab.Chew) 81 mg PO DAILY [facility] Last Admin: 01/22/22 10:37 Dose: Not Given Clopidogrel Bisulfate (Clopidogrel Bisulfate 75 Mg Tablet) 75 mg PO DAILY [facility] Last Admin: 01/22/22 10:37 Dose: Not Given Divalproex Sodium (Divalproex Sodium Er 500 Mg Tab.Er.24h) 500 mg PO BEDTIME [facility] Last Admin: 01/22/22 20:56 Dose: Not Given Hydroxyzine HCl (Hydroxyzine Hcl 25 Mg Tablet) 25 mg PO Q6H PRN PRN Reason: Anxiety Magnesium Hydroxide (Milk Of Magnesia 30 Ml Oral.Susp) 30 ml PO DAILY PRN PRN Reason: Constipation Last Admin: 01/12/22 22:17 Dose: 30 ml Olanzapine (Olanzapine 10 Mg Vial) 10 mg IM BID PRN PRN Reason: if refuses oral risperidone Last Admin: 01/22/22 20:04 Dose: 10 mg Risperidone (Risperidone Oral Mary Alice 1 Mg/Ml Solution) 2 mg PO BID [facility] Last Admin: 01/22/22 23:29 Dose: Not Given Trazodone HCl (Trazodone Hcl 50 Mg Tablet) 50 mg PO BEDTIME PRN PRN Reason: Insomnia Allergies Allergies Allergy/AdvReac Type Severity Reaction Status Date / Time Sulfa (Sulfonamide Allergy Intermediate hives Verified 12/27/21 13:12 Antibiotics) [SULFA (SULFONAMIDE ANTIBIOTICS)] Assessment & Plan Assessment & Plan (1) Bipolar disorder with psychotic features: Status: Acute Code(s): F31.9 - Bipolar disorder, unspecified Plan Juan Jose is a 56 yold male who carries a dx of MDD recurrent, r/o schizoaffective disorder. He presented to [facility] on 01/10/2022 via section 12a for paranoid and A/VH. Per [facility] crisis, pt was paranoid, pacing during eval. He reportedly heard telling him to kill others, seeing cars following him. Reportedly pt has not been sleeping, pacing the hallways at night. Head CT showed no acute intracranial pathology. Utox positive for cannabis. Per chart review, pt has multiple co-morbid medical issues. No hx of previous psych IPLOC. No hx of antipsychotic or mood stabilizing medications. Pt was adherent with OP psych services up until 05/2021, was on wellbutrin XL and buspar up until 03/2021. Plan: Pt is not interested in medication management. Will speak with daughter to obtain collateral info. Pt is tangential and pressured, endorses AH but otherwise no behavioral issues observed, denies mood concerns. 01/13: Pt is refusing medication intervention, lacks insight into his pressured speech, agitation, and tangential thoughts. Again left for daughter to obtain collateral info. 01/14: Will start depakote ER 500 mg QHS for mood lability and apparent manic sx. Did not start atypical due to metabolic SE, as pt has hx of obesity and is now s/p gastric bypass. Pt does not have hx of itz per collateral contact, however will treat sx at this time. Head CT negative. Utox only positive for cannabis. 01/15: Pt refusing depakote ER 500 mg QHS 01/16: Pt refusing depakote ER 500 mg QHS, continues to present with manic sx of hyposomnia, disorganized thoughts, and agitation. Will add abilify 5 mg daily, as pt is endorsing paranoid delusional thought content during interview and per collateral contact. Consideration made to use atypical with low metabolic SE profile. Q15 min safety checks, CV Monitor response to medications. Monitor for safety in the milieu. Discharge on stabilization. Patient seen. Chart reviewed. Discussed with team. Obtain collateral contact info?as needed 01/17- pt informed of filing as pt continues paranoid, reporting CAH of hurting others. 01/18 continue current medications 01/19 continue current medications. committed to hospital, on section 8. Will start risperidone, back up Olanzapine IM if refuses oral. continue depakote. 01/21 Section 8- oral risperidone, back up Olanzapine IM. 01/22: Continue current regimen and plans 01/23: Continue current regimen and plans I spent minutes with the patient and/or on the patient floor today, greater than?50% of which was spent counseling/coordinating care. Reason for contiued inpatient stay Substantial Risk for: med/psych decompensation
[2022-01-23] MEDS: risperiDONE Oral Sol 1 MG/ML SOLUTION 2 MG PO ×2 (11:04→20:34)
[2022-01-23 18:50] VITALS: BP 141/66; PULSE 96; RESP 16; TEMP 36.1; O2SAT 100
[2022-01-24] MEDS: risperiDONE Oral Sol 1 MG/ML SOLUTION 2 MG PO ×2 (07:48→20:24)
[2022-01-24 08:30] VITALS: BP 118/58; PULSE 101; RESP 18; TEMP 36.2; O2SAT 100
--- NOTE | 2022-01-24 09:06 | HO.PSYCHPN ---
Subjective Subjective Date of Service: 01/24/22 Reason For Visit: Paranoia Subjective Notes: Section 8 Interim History: Pt with less intense and angry look. He reports he is being kidnapped but accepts taking medications. He reports I never had any problems with sleep despite not sleeping more than one hour at night since admission. He reports something big is going to happen, you wait and see! Pt pacing on the unit, suspicious of peers but with much less irritability. He denies SI/HI. Review of Systems Review of Systems paranoid. and auditory Yes all other systems are reviewed and are negative and Unobtainable due to mental status Mental Status Exam Mental Status Exam Narrative: In today's visit he is alert, pleasant and interactive within his means. Speech is soft-spoken. Moderate eye contact. Affect is contained. No overt aggressive behaviors or irritability. Could not assess symptoms of psychosis. No dangerous behaviors. Could not be assessed cognitively. Judgment is marginally intact Diagnostics Vital Signs (24Hr): Vital Signs - 24 hr 01/24/22 20:15 01/25/22 09:02 Temperature 98.0 F 98.1 F Pulse Rate 98 96 Respiratory Rate 18 16 Blood Pressure 140/65 H 140/76 H Pulse Oximetry 97 100 Oxygen Delivery Method Room Air Room Air BMI result Body Mass Index 28.5 Labs Results: 01/10/22 21:41 01/10/22 21:41 Labs: Laboratory Results - last 48 hr 01/24/22 12:55 Urine Color Yellow Urine Appearance Clear Urine pH 5.5 Ur Specific Franklin <= 1.005 Urine Protein 100 (2+) H Urine Glucose (UA) Negative Urine Ketones Negative Urine Blood Negative Urine Nitrite Negative Ur Leukocyte Esterase Negative Urine RBC 0-2 Urine WBC 0-5 Ur Squamous Epith Cells 0-2 Urine Bacteria None Seen Hyaline Casts 0-2 Imaging Radiology Impressions: ITS Impressions Head CT 01/10/22 23:18 IMPRESSION: No acute intracranial pathology. Medications Medications Current Medications Acetaminophen (Acetaminophen 325 Mg Tablet) 650 mg PO Q6H PRN PRN Reason: Headache/Pain Mild Scale (1-3) Al Hydroxide/Mg Hydroxide (Magnesium Hydrox/Alum Hydrox 30 Ml Oral.Susp) 30 ml PO Q6H PRN PRN Reason: Heartburn/Nausea Aspirin (Aspirin 81 Mg Tab.Chew) 81 mg PO DAILY [facility] Last Admin: 01/25/22 09:00 Dose: Not Given Clopidogrel Bisulfate (Clopidogrel Bisulfate 75 Mg Tablet) 75 mg PO DAILY [facility] Last Admin: 01/25/22 09:00 Dose: Not Given Divalproex Sodium (Divalproex Sodium Er 500 Mg Tab.Er.24h) 500 mg PO BEDTIME [facility] Last Admin: 01/24/22 21:00 Dose: Not Given Hydroxyzine HCl (Hydroxyzine Hcl 25 Mg Tablet) 25 mg PO Q6H PRN PRN Reason: Anxiety Magnesium Hydroxide (Milk Of Magnesia 30 Ml Oral.Susp) 30 ml PO DAILY PRN PRN Reason: Constipation Last Admin: 01/24/22 20:24 Dose: 30 ml Olanzapine (Olanzapine 10 Mg Vial) 10 mg IM BID PRN PRN Reason: if refuses oral risperidone Last Admin: 01/22/22 20:04 Dose: 10 mg Risperidone (Risperidone Oral Mary Alice 1 Mg/Ml Solution) 2 mg PO BID [facility] Last Admin: 01/25/22 09:00 Dose: 2 mg Trazodone HCl (Trazodone Hcl 50 Mg Tablet) 50 mg PO BEDTIME PRN PRN Reason: Insomnia Allergies Allergies Allergy/AdvReac Type Severity Reaction Status Date / Time Sulfa (Sulfonamide Allergy Intermediate hives Verified 12/27/21 13:12 Antibiotics) [SULFA (SULFONAMIDE ANTIBIOTICS)] Assessment & Plan Assessment & Plan (1) Bipolar disorder with psychotic features: Status: Acute Code(s): F31.9 - Bipolar disorder, unspecified Plan Juan Jose is a 56 yold male who carries a dx of MDD recurrent, r/o schizoaffective disorder. He presented [place] [facility] on 01/10/2022 via section 12a for paranoid and A/VH. Per [facility] crisis, pt was paranoid, pacing during eval. He reportedly heard AH telling him to kill others, seeing cars following him. Reportedly pt has not been sleeping, pacing the hallways at night. Head CT showed no acute intracranial pathology. Utox positive for cannabis. Per chart review, pt has multiple co-morbid medical issues. No hx of previous psych IPLOC. No hx of antipsychotic or mood stabilizing medications. Pt was adherent with OP psych services up until 05/2021, was on wellbutrin XL and buspar up until 03/2021. Plan: Pt is not interested in medication management. Will speak with daughter to obtain collateral info. Pt is tangential and pressured, endorses AH but otherwise no behavioral issues observed, denies mood concerns. 01/13: Pt is refusing medication intervention, lacks insight into his pressured speech, agitation, and tangential thoughts. Again left VM for daughter to obtain collateral info. 01/14: Will start depakote ER 500 mg QHS for mood lability and apparent manic sx. Did not start atypical due to metabolic SE, as pt has hx of obesity and is now s/p gastric bypass. Pt does not have hx of itz per collateral contact, however will treat sx at this time. Head CT negative. Utox only positive for cannabis. 01/15: Pt refusing depakote ER 500 mg QHS 01/16: Pt refusing depakote ER 500 mg QHS, continues to present with manic sx of hyposomnia, disorganized thoughts, and agitation. Will add abilify 5 mg daily, as pt is endorsing paranoid delusional thought content during interview and per collateral contact. Consideration made to use atypical with low metabolic SE profile. Q15 min safety checks, CV Monitor response to medications. Monitor for safety in the milieu. Discharge on stabilization. Patient seen. Chart reviewed. Discussed with team. Obtain collateral contact info?as needed 01/17- pt informed of filing as pt continues paranoid, reporting CAH of hurting others. 01/18 continue current medications 01/19 continue current medications. committed to hospital, on section 8. Will start risperidone, back up Olanzapine IM if refuses oral. continue depakote. 01/21 Section 8- oral risperidone, back up Olanzapine IM. 01/22: Continue current regimen and plans 01/23: Continue current regimen and plans 01/24 continue current medications, will titrate risperidone as needed. I spent minutes with the patient and/or on the patient floor today, greater than?50% of which was spent counseling/coordinating care. Reason for contiued inpatient stay Substantial Risk for: harm to others and inability to function
[2022-01-24 13:23] LABS: Appearance Urine Clear; Color Urine Yellow; Glucose Urine UA Negative (Negative); Leukocyte Esterase Urine Negative (Negative); Nitrite Urine Negative (Negative); PH 5.5 (5.0-8.0); Specific Gravity - Urine <= 1.005 (1.005-1.025); Urine Blood Negative (Negative); Urine Ketones Negative (Negative); Urine Protein 100 (2+) mg/dL (Neg-Trace)
[2022-01-24 13:26] LABS: Bacteria Urine None Seen (None Seen); Hyaline Casts Urine 0-2 /LPF (0-2); RBC Urine 0-2 /HPF (0-2); Squamous Epithelial Cell Urine 0-2 /HPF (0-2); WBC Urine 0-5 /HPF (0-5)
[2022-01-24 20:15] VITALS: BP 140/65; PULSE 98; RESP 18; TEMP 36.7; O2SAT 97
[2022-01-24] MEDS: Milk of Magnesia 30 ML ORAL.SUSP PO (20:24)
[2022-01-25] MEDS: risperiDONE Oral Sol 1 MG/ML SOLUTION 2 MG PO ×2 (09:00→21:06)
[2022-01-25 09:02] VITALS: BP 140/76; PULSE 96; RESP 16; TEMP 36.7; O2SAT 100
--- NOTE | 2022-01-25 09:50 | P.PNPSI_ITS ---
Subjective Subjective Date of Service: 01/25/22 Reason For Visit: Paranoia Subjective Notes: Section 8 Interim History: Pt calmer, pt continues to report that he has land in [place] that is [place]. He is less intense about people in his building trying to hurt him. He continues to report paranoia towards some staff here on the unit. He denies SI/HI. No aggression towards self or others. Sleep continies to be a proble, only 3hrs at night per staff. Medication Compliance: Yes Side effects from medications: No Review of Systems Review of Systems paranoid. and auditory Yes all other systems are reviewed and are negative and Unobtainable due to mental status Mental Status Exam Mental Status Exam Narrative: In today's visit he is alert, pleasant and interactive within his means. Speech is soft-spoken. Moderate eye contact. Affect is contained. No overt aggressive behaviors or irritability. Could not assess symptoms of psychosis. No dangerous behaviors. Could not be assessed cognitively. Judgment is marginally intact Diagnostics Vital Signs (24Hr): Vital Signs - 24 hr 01/27/22 20:19 01/28/22 08:00 Temperature 97.4 F 97.9 F Pulse Rate 96 87 Respiratory Rate 16 Blood Pressure 149/78 H 122/56 L Pulse Oximetry 100 98 Oxygen Delivery Method Room Air Room Air BMI result Body Mass Index 28.8 Labs Results: 01/10/22 21:41 01/10/22 21:41 Imaging Radiology Impressions: ITS Impressions Head CT 01/10/22 23:18 IMPRESSION: No acute intracranial pathology. Medications Medications Current Medications Acetaminophen (Acetaminophen 325 Mg Tablet) 650 mg PO Q6H PRN PRN Reason: Headache/Pain Mild Scale (1-3) Last Admin: 01/28/22 03:15 Dose: 650 mg Al Hydroxide/Mg Hydroxide (Magnesium Hydrox/Alum Hydrox 30 Ml Oral.Susp) 30 ml PO Q6H PRN PRN Reason: Heartburn/Nausea Aspirin (Aspirin 81 Mg Tab.Chew) 81 mg PO DAILY [facility] Last Admin: 01/28/22 08:21 Dose: Not Given Clopidogrel Bisulfate (Clopidogrel Bisulfate 75 Mg Tablet) 75 mg PO DAILY [facility] Last Admin: 01/28/22 08:21 Dose: Not Given Hydroxyzine HCl (Hydroxyzine Hcl 25 Mg Tablet) 25 mg PO Q6H PRN PRN Reason: Anxiety Magnesium Hydroxide (Milk Of Magnesia 30 Ml Oral.Susp) 30 ml PO DAILY PRN PRN Reason: Constipation Last Admin: 01/24/22 20:24 Dose: 30 ml Multi-Ingred Cream/Lotion/Oil/Oint (Mineral Oil/Petrolatum,White 106 Gm Tube) 1 appl TOPICAL BID [facility] Last Admin: 01/27/22 22:22 Dose: 1 appl Olanzapine (Olanzapine 10 Mg Vial) 10 mg IM BID PRN PRN Reason: if refuses oral risperidone Last Admin: 01/25/22 22:14 Dose: 10 mg Risperidone (Risperidone Oral Mary Alice 1 Mg/Ml Solution) 2 mg PO BID [facility] Last Admin: 01/28/22 08:10 Dose: 2 mg Trazodone HCl (Trazodone Hcl 100 Mg Tablet) 100 mg PO BEDTIME [facility] Last Admin: 01/27/22 22:22 Dose: 100 mg Allergies Allergies Allergy/AdvReac Type Severity Reaction Status Date / Time Sulfa (Sulfonamide Allergy Intermediate hives Verified 12/27/21 13:12 Antibiotics) [SULFA (SULFONAMIDE ANTIBIOTICS)] Assessment & Plan Assessment & Plan (1) Bipolar disorder with psychotic features: Status: Acute Code(s): F31.9 - Bipolar disorder, unspecified Plan Juan Jose is a 56 yold male who carries a dx of MDD recurrent, r/o schizoaffective disorder. He [place] [facility] [place]22 via section 12a for paranoid and A/VH. Per [facility] crisis, pt was paranoid, pacing during eval. He reportedly heard AH telling him to kill others, seeing cars following him. Reportedly pt has not been sleeping, pacing the hallways at night. Head CT showed no acute intracranial pathology. Utox positive for cannabis. Per chart review, pt has multiple co-morbid medical issues. No hx of previous psych IPLOC. No hx of antipsychotic or mood stabilizing medications. Pt was adherent with OP psych services up until 05/2021, was on wellbutrin XL and buspar up until 03/2021. Plan: Pt is not interested in medication management. Will speak with daughter to obtain collateral info. Pt is tangential and pressured, endorses AH but otherwise no behavioral issues observed, denies mood concerns. 01/13: Pt is refusing medication intervention, lacks insight into his pressured speech, agitation, and tangential thoughts. Again left VM for daughter to obtain collateral info. 01/14: Will start depakote ER 500 mg QHS for mood lability and apparent manic sx. Did not start atypical due to metabolic SE, as pt has hx of obesity and is now s/p gastric bypass. Pt does not have hx of itz per collateral contact, however will treat sx at this time. Head CT negative. Utox only positive for cannabis. 01/15: Pt refusing depakote ER 500 mg QHS 01/16: Pt refusing depakote ER 500 mg QHS, continues to present with manic sx of hyposomnia, disorganized thoughts, and agitation. Will add abilify 5 mg daily, as pt is endorsing paranoid delusional thought content during interview and per collateral contact. Consideration made to use atypical with low metabolic SE profile. Q15 min safety checks, CV Monitor response to medications. Monitor for safety in the milieu. Discharge on stabilization. Patient seen. Chart reviewed. Discussed with team. Obtain collateral contact info?as needed 01/17- pt informed of filing as pt continues paranoid, reporting CAH of hurting others. 01/18 continue current medications 01/19 continue current medications. committed to hospital, on section 8. Will start risperidone, back up Olanzapine IM if refuses oral. continue depakote. 01/21 Section 8- oral risperidone, back up Olanzapine IM. 01/22: Continue current regimen and plans 01/23: Continue current regimen and plans 01/24 continue current medications, will titrate risperidone as needed. 01/25 continue current medications. I spent minutes with the patient and/or on the patient floor today, greater than?50% of which was spent counseling/coordinating care. Reason for contiued inpatient stay Substantial Risk for: harm to others and inability to function
[2022-01-25 21:06] VITALS: BP 148/68; PULSE 90; RESP 18; TEMP 36.1; O2SAT 99
[2022-01-25] MEDS: traZODone HCL 100 MG TABLET PO (21:06)
[2022-01-25] MEDS: OLANZapine 10 MG VIAL IM (22:14)
--- NOTE | 2022-01-25 22:23 | PC.NURSE ---
Pt was refusing Depakote and requested for me to call his brother to validate his need for the court ordered medication. Stated that if his brother stated he needed to take it, he would. Pt threatened this RN with legal action if he was required to take. I called Ramón (pt stated that is his brothers name) @ [phone] twice and there was only a machine response not a live person to speak to. I instructed pt at this point that i am required to give him the medication via IM if he is still refusing the PO, he acquiesced and allowed the medication @ [phone] while threatening legal action to this RN again. Security officers and riveter helper were both present throughout process.
[2022-01-26] MEDS: Divalproex Sodium ER 500 MG TAB.ER.24H PO (08:51)
[2022-01-26] MEDS: risperiDONE Oral Sol 1 MG/ML SOLUTION 2 MG PO ×2 (08:51→22:29)
[2022-01-26 09:12] VITALS: BP 141/71; PULSE 94; RESP 16; TEMP 36.6; O2SAT 99
--- NOTE | 2022-01-26 09:56 | P.PNPSI_ITS ---
Subjective Subjective Date of Service: 01/26/22 Reason For Visit: Paranoia Subjective Notes: Section 8 Interim History: Pt calmer, no aggression towards self or others. He continues to report that he is being kidnapped. He reports feeling tired, reports sleep has never been a problem for me. Even though he has not slept much through the night. He is eating well. Less paranoid. Medication Compliance: Yes Side effects from medications: No Review of Systems Review of Systems paranoid. and auditory Yes all other systems are reviewed and are negative and Unobtainable due to mental status Mental Status Exam Mental Status Exam Narrative: In today's visit he is alert, pleasant and interactive within his means. Speech is soft-spoken. Moderate eye contact. Affect is contained. No overt aggressive behaviors or irritability. Could not assess symptoms of psychosis. No dangerous behaviors. Could not be assessed cognitively. Judgment is marginally intact Diagnostics Vital Signs (24Hr): Vital Signs - 24 hr 01/27/22 20:19 01/28/22 08:00 Temperature 97.4 F 97.9 F Pulse Rate 96 87 Respiratory Rate 16 Blood Pressure 149/78 H 122/56 L Pulse Oximetry 100 98 Oxygen Delivery Method Room Air Room Air BMI result Body Mass Index 28.8 Labs Results: 01/10/22 21:41 01/10/22 21:41 Imaging Radiology Impressions: ITS Impressions Head CT 01/10/22 23:18 IMPRESSION: No acute intracranial pathology. Medications Medications Current Medications Acetaminophen (Acetaminophen 325 Mg Tablet) 650 mg PO Q6H PRN PRN Reason: Headache/Pain Mild Scale (1-3) Last Admin: 01/28/22 03:15 Dose: 650 mg Al Hydroxide/Mg Hydroxide (Magnesium Hydrox/Alum Hydrox 30 Ml Oral.Susp) 30 ml PO Q6H PRN PRN Reason: Heartburn/Nausea Aspirin (Aspirin 81 Mg Tab.Chew) 81 mg PO DAILY [facility] Last Admin: 01/28/22 08:21 Dose: Not Given Clopidogrel Bisulfate (Clopidogrel Bisulfate 75 Mg Tablet) 75 mg PO DAILY [facility] Last Admin: 01/28/22 08:21 Dose: Not Given Hydroxyzine HCl (Hydroxyzine Hcl 25 Mg Tablet) 25 mg PO Q6H PRN PRN Reason: Anxiety Magnesium Hydroxide (Milk Of Magnesia 30 Ml Oral.Susp) 30 ml PO DAILY PRN PRN Reason: Constipation Last Admin: 01/24/22 20:24 Dose: 30 ml Multi-Ingred Cream/Lotion/Oil/Oint (Mineral Oil/Petrolatum,White 106 Gm Tube) 1 appl TOPICAL BID [facility] Last Admin: 01/27/22 22:22 Dose: 1 appl Olanzapine (Olanzapine 10 Mg Vial) 10 mg IM BID PRN PRN Reason: if refuses oral risperidone Last Admin: 01/25/22 22:14 Dose: 10 mg Risperidone (Risperidone Oral Mary Alice 1 Mg/Ml Solution) 2 mg PO BID [facility] Last Admin: 01/28/22 08:10 Dose: 2 mg Trazodone HCl (Trazodone Hcl 100 Mg Tablet) 100 mg PO BEDTIME [facility] Last Admin: 01/27/22 22:22 Dose: 100 mg Allergies Allergies Allergy/AdvReac Type Severity Reaction Status Date / Time Sulfa (Sulfonamide Allergy Intermediate hives Verified 12/27/21 13:12 Antibiotics) [SULFA (SULFONAMIDE ANTIBIOTICS)] Assessment & Plan Assessment & Plan (1) Bipolar disorder with psychotic features: Status: Acute Code(s): F31.9 - Bipolar disorder, unspecified Plan Juan Jose is a 56 yold male who carries a dx of MDD recurrent, r/o schizoaffective disorder. He presented to [facility] [place] [facility] on 01/10/2022 via section 12a for paranoid and A/VH. Per [facility] crisis, pt was paranoid, pacing during eval. He reportedly heard AH telling him to kill others, seeing cars following him. Reportedly pt has not been sleeping, pacing the hallways at night. Head CT showed no acute intracranial pathology. Utox positive for cannabis. Per chart review, pt has multiple co-morbid medical issues. No hx of previous psych IPLOC. No hx of antipsychotic or mood stabilizing medications. Pt was adherent with OP psych services up until 05/2021, was on wellbutrin XL and buspar up until 03/2021. Plan: Pt is not interested in medication management. Will speak with daughter to obtain collateral info. Pt is tangential and pressured, endorses AH but otherw ise no behavioral issues observed, denies mood concerns. 01/13: Pt is refusing medication intervention, lacks insight into his pressured speech, agitation, and tangential thoughts. Again left VM for daughter to obtain collateral info. 01/14: Will start depakote ER 500 mg QHS for mood lability and apparent manic sx. Did not start atypical due to metabolic SE, as pt has hx of obesity and is now s/p gastric bypass. Pt does not have hx of itz per collateral contact, however will treat sx at this time. Head CT negative. Utox only positive for cannabis. 01/15: Pt refusing depakote ER 500 mg QHS 01/16: Pt refusing depakote ER 500 mg QHS, continues to present with manic sx of hyposomnia, disorganized thoughts, and agitation. Will add abilify 5 mg daily, as pt is endorsing paranoid delusional thought content during interview and per collateral contact. Consideration made to use atypical with low metabolic SE profile. Q15 min safety checks, CV Monitor response to medications. Monitor for safety in the milieu. Discharge on stabilization. Patient seen. Chart reviewed. Discussed with team. Obtain collateral contact info?as needed 01/17- pt informed of filing as pt continues paranoid, reporting CAH of hurting others. 01/18 continue current medications 01/19 continue current medications. committed to hospital, on section 8. Will start risperidone, back up Olanzapine IM if refuses oral. continue depakote. 01/21 Section 8- oral risperidone, back up Olanzapine IM. 01/22: Continue current regimen and plans 01/23: Continue current regimen and plans 01/24 continue current medications, will titrate risperidone as needed. 01/25 continue current medications. 01/26 continue current medications. I spent minutes with the patient and/or on the patient floor today, greater than?50% of which was spent counseling/coordinating care. Reason for contiued inpatient stay Substantial Risk for: harm to others and inability to function
[2022-01-26] MEDS: Acetaminophen 325 MG TABLET 650 MG PO (17:12)
[2022-01-26 21:06] VITALS: BP 151/70; PULSE 87; TEMP 36.6; O2SAT 99
[2022-01-26] MEDS: traZODone HCL 100 MG TABLET PO (22:29)
[2022-01-27 07:00] VITALS: BMI 28.8
[2022-01-27 08:46] VITALS: BP 129/60; PULSE 83; TEMP 36.3; O2SAT 100
[2022-01-27] MEDS: risperiDONE Oral Sol 1 MG/ML SOLUTION 2 MG PO ×2 (09:00→20:15)
--- NOTE | 2022-01-27 09:58 | HO.PSYCHPN ---
Subjective Subjective Date of Service: 01/27/22 Reason For Visit: Paranoia Subjective Notes: Section 8 Interim History: Pt reports he feels fine. He reports he sleeps fine and has a lot of energy. He slept only 3 hrs last night. He continues to report having billions of dollars in [place], paranoid towards some staff but much less agitated or aggressive. He denies SI/HI. Medication Compliance: Yes Side effects from medications: No Review of Systems Review of Systems paranoid. and auditory Yes all other systems are reviewed and are negative and Unobtainable due to mental status Mental Status Exam Mental Status Exam Narrative: In today's visit he is alert, pleasant and interactive within his means. Speech is soft-spoken. Moderate eye contact. Affect is contained. No overt aggressive behaviors or irritability. Could not assess symptoms of psychosis. No dangerous behaviors. Could not be assessed cognitively. Judgment is marginally intact Diagnostics Vital Signs (24Hr): Vital Signs - 24 hr 01/27/22 20:19 01/28/22 08:00 Temperature 97.4 F 97.9 F Pulse Rate 96 87 Respiratory Rate 16 Blood Pressure 149/78 H 122/56 L Pulse Oximetry 100 98 Oxygen Delivery Method Room Air Room Air BMI result Body Mass Index 28.8 Labs Results: 01/10/22 21:41 01/10/22 21:41 Imaging Radiology Impressions: ITS Impressions Head CT 01/10/22 23:18 IMPRESSION: No acute intracranial pathology. Medications Medications Current Medications Acetaminophen (Acetaminophen 325 Mg Tablet) 650 mg PO Q6H PRN PRN Reason: Headache/Pain Mild Scale (1-3) Last Admin: 01/28/22 03:15 Dose: 650 mg Al Hydroxide/Mg Hydroxide (Magnesium Hydrox/Alum Hydrox 30 Ml Oral.Susp) 30 ml PO Q6H PRN PRN Reason: Heartburn/Nausea Aspirin (Aspirin 81 Mg Tab.Chew) 81 mg PO DAILY [facility] Last Admin: 01/28/22 08:21 Dose: Not Given Clopidogrel Bisulfate (Clopidogrel Bisulfate 75 Mg Tablet) 75 mg PO DAILY [facility] Last Admin: 01/28/22 08:21 Dose: Not Given Hydroxyzine HCl (Hydroxyzine Hcl 25 Mg Tablet) 25 mg PO Q6H PRN PRN Reason: Anxiety Magnesium Hydroxide (Milk Of Magnesia 30 Ml Oral.Susp) 30 ml PO DAILY PRN PRN Reason: Constipation Last Admin: 01/24/22 20:24 Dose: 30 ml Multi-Ingred Cream/Lotion/Oil/Oint (Mineral Oil/Petrolatum,White 106 Gm Tube) 1 appl TOPICAL BID [facility] Last Admin: 01/27/22 22:22 Dose: 1 appl Olanzapine (Olanzapine 10 Mg Vial) 10 mg IM BID PRN PRN Reason: if refuses oral risperidone Last Admin: 01/25/22 22:14 Dose: 10 mg Risperidone (Risperidone Oral Mary Alice 1 Mg/Ml Solution) 2 mg PO BID [facility] Last Admin: 01/28/22 08:10 Dose: 2 mg Trazodone HCl (Trazodone Hcl 100 Mg Tablet) 100 mg PO BEDTIME [facility] Last Admin: 01/27/22 22:22 Dose: 100 mg Allergies Allergies Allergy/AdvReac Type Severity Reaction Status Date / Time Sulfa (Sulfonamide Allergy Intermediate hives Verified 12/27/21 13:12 Antibiotics) [SULFA (SULFONAMIDE ANTIBIOTICS)] Assessment & Plan Assessment & Plan (1) Bipolar disorder with psychotic features: Status: Acute Code(s): F31.9 - Bipolar disorder, unspecified Plan Juan Jose is a 56 yold male who carries a dx of MDD recurrent, r/o schizoaffective disorder. He presented to [facility] ED on 01/10/2022 via section 12a for paranoid and A/VH. Per [facility] crisis, pt was paranoid, pacing during eval. He reportedly heard AH telling him to kill others, seeing cars following him. Reportedly pt has not been sleeping, pacing the hallways at night. Head CT showed no acute intracranial pathology. Utox positive for cannabis. Per chart review, pt has multiple co-morbid medical issues. No hx of previous psych IPLOC. No hx of antipsychotic or mood stabilizing medications. Pt was adherent with OP psych services up until 05/2021, was on wellbutrin XL and buspar up until 03/2021. Plan: Pt is not interested in medication management. Will speak with daughter to obtain collateral info. Pt is tangential and pressured, endorses AH but otherwise no behavioral issues observed, denies mood concerns. 01/13: Pt is refusing medication intervention, lacks insight into his pressured speech, agitation, and tangential thoughts. Again left VM for daughter to obtain collateral info. 01/14: Will start depakote ER 500 mg QHS for mood lability and apparent manic sx. Did not start atypical due to metabolic SE, as pt has hx of obesity and is now s/p gastric bypass. Pt does not have hx of itz per collateral contact, however will treat sx at this time. Head CT negative. Utox only positive for cannabis. 01/15: Pt refusing depakote ER 500 mg QHS 01/16: Pt refusing depakote ER 500 mg QHS, continues to present with manic sx of hyposomnia, disorganized thoughts, and agitation. Will add abilify 5 mg daily, as pt is endorsing paranoid delusional thought content during interview and per collateral contact. Consideration made to use atypical with low metabolic SE profile. Q15 min safety checks, CV Monitor response to medications. Monitor for safety in the milieu. Discharge on stabilization. Patient seen. Chart reviewed. Discussed with team. Obtain collateral contact info?as needed 01/17- pt informed of filing as pt continues paranoid, reporting CAH of hurting others. 01/18 continue current medications 01/19 continue current medications. committed to hospital, on section 8. Will start risperidone, back up Olanzapine IM if refuses oral. continue depakote. 01/21 Section 8- oral risperidone, back up Olanzapine IM. 01/22: Continue current regimen and plans 01/23: Continue current regimen and plans 01/24 continue current medications, will titrate risperidone as needed. 01/25 continue current medications. 01/26 continue current medications. 01/27 continue current medications. I spent minutes with the patient and/or on the patient floor today, greater than?50% of which was spent counseling/coordinating care. Reason for contiued inpatient stay Substantial Risk for: harm to others and inability to function
[2022-01-27] MEDS: Mineral Oil/Petrolatum,White 106 GM Tube 1 APPL TOPICAL ×3 (17:59→22:22)
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
[2022-01-27 20:19] VITALS: BP 149/78; PULSE 96; TEMP 36.3; O2SAT 100
[2022-01-27] MEDS: traZODone HCL 100 MG TABLET PO (22:22)
[2022-01-28] MEDS: Acetaminophen 325 MG TABLET 650 MG PO (03:15)
--- NOTE | 2022-01-28 03:18 | PC.NURSE ---
diplomatic interpreter/translator utilized-patient informed that his phone number that he had given to a female staff person could not be accepted by her.
--- NOTE | 2022-01-28 03:21 | PC.NURSE ---
patient was provocative in that when he was re directed about giving staff his number he started speaking about being associated with the ''[employer]'' and stated that ''I know the games you are playing'' eye contact was intense but remained in behavioral control.
[2022-01-28 08:00] VITALS: BP 122/56; PULSE 87; RESP 16; TEMP 36.6; O2SAT 98
[2022-01-28] MEDS: risperiDONE Oral Sol 1 MG/ML SOLUTION 2 MG PO ×2 (08:10→21:01)
[2022-01-28] MEDS: Ibuprofen 600 MG TABLET PO (08:24)
--- NOTE | 2022-01-28 09:03 | P.PNPSI_ITS ---
Subjective Subjective Date of Service: 01/28/22 Reason For Visit: Paranoia Subjective Notes: Section 8 Interim History: Pt somewhat guarded and suspicious. He reports he is sleeping fine, but staff reports no more than 2-3 hrs. Pt less agitated and calmer but continues to have paranoid delusions, calling ex still somewhat treatening. He denies SI/HI. taking medications as prescribed, except for medical one. Medication Compliance: Yes Side effects from medications: No Review of Systems Review of Systems paranoid. and auditory Yes all other systems are reviewed and are negative and Unobtainable due to mental status Mental Status Exam Mental Status Exam Narrative: In today's visit he is alert, pleasant and interactive within his means. Speech is soft-spoken. Moderate eye contact. Affect is contained. No overt aggressive behaviors or irritability. Could not assess symptoms of psychosis. No dangerous behaviors. Could not be assessed cognitively. Judgment is marginally intact Diagnostics Vital Signs (24Hr): Vital Signs - 24 hr 01/28/22 22:00 01/29/22 08:28 Temperature 97.1 F 97.9 F Pulse Rate 89 83 Respiratory Rate 18 18 Blood Pressure 106/61 136/69 Pulse Oximetry 98 97 Oxygen Delivery Method Room Air Room Air BMI result Body Mass Index 28.9 Labs Results: 01/10/22 21:41 01/10/22 21:41 Imaging Radiology Impressions: ITS Impressions Head CT 01/10/22 23:18 IMPRESSION: No acute intracranial pathology. Medications Medications Current Medications Acetaminophen (Acetaminophen 325 Mg Tablet) 650 mg PO Q6H PRN PRN Reason: Headache/Pain Mild Scale (1-3) Last Admin: 01/28/22 03:15 Dose: 650 mg Al Hydroxide/Mg Hydroxide (Magnesium Hydrox/Alum Hydrox 30 Ml Oral.Susp) 30 ml PO Q6H PRN PRN Reason: Heartburn/Nausea Last Admin: 01/28/22 14:14 Dose: 30 ml Aspirin (Aspirin 81 Mg Tab.Chew) 81 mg PO DAILY [facility] Last Admin: 01/28/22 08:21 Dose: Not Given Clopidogrel Bisulfate (Clopidogrel Bisulfate 75 Mg Tablet) 75 mg PO DAILY [facility] Last Admin: 01/28/22 08:21 Dose: Not Given Hydroxyzine HCl (Hydroxyzine Hcl 25 Mg Tablet) 25 mg PO Q6H PRN PRN Reason: Anxiety Magnesium Hydroxide (Milk Of Magnesia 30 Ml Oral.Susp) 30 ml PO DAILY PRN PRN Reason: Constipation Last Admin: 01/24/22 20:24 Dose: 30 ml Multi-Ingred Cream/Lotion/Oil/Oint (Mineral Oil/Petrolatum,White 106 Gm Tube) 1 appl TOPICAL BID [facility] Last Admin: 01/28/22 22:03 Dose: 1 appl Olanzapine (Olanzapine 10 Mg Vial) 10 mg IM BID PRN PRN Reason: if refuses oral risperidone Last Admin: 01/25/22 22:14 Dose: 10 mg Risperidone (Risperidone Oral Mary Alice 1 Mg/Ml Solution) 2 mg PO BID [facility] Last Admin: 01/28/22 21:01 Dose: 2 mg Trazodone HCl (Trazodone Hcl 100 Mg Tablet) 100 mg PO BEDTIME [facility] Last Admin: 01/28/22 22:00 Dose: 100 mg Allergies Allergies Allergy/AdvReac Type Severity Reaction Status Date / Time Sulfa (Sulfonamide Allergy Intermediate hives Verified 12/27/21 13:12 Antibiotics) [SULFA (SULFONAMIDE ANTIBIOTICS)] Assessment & Plan Assessment & Plan (1) Bipolar disorder with psychotic features: Status: Acute Code(s): F31.9 - Bipolar disorder, unspecified Plan Juan Jose is a 56 yold male who carries a dx of MDD recurrent, r/o schizoaffective disorder. He presented to [facility] on 01/10/2022 via section 12a for paranoid and A/VH. Per [facility] crisis, pt was paranoid, pacing during eval. He reportedly heard AH telling him to kill others, seeing cars following him. Reportedly pt has not been sleeping, pacing the hallways at night. Head CT showed no acute intracranial pathology. Utox positive for cannabis. Per chart review, pt has multiple co-morbid medical issues. No hx of previous psych IPLOC. No hx of antipsychotic or mood stabilizing medications. Pt was adherent with OP psych services up until 05/2021, was on wellbutrin XL and buspar up until 03/2021. Plan: Pt is not interested in medication management. Will speak with daughter to obtain collateral info. Pt is tangential and pressured, endorses AH but otherwise no behavioral issues observed, denies mood concerns. 01/13: Pt is refusing medication intervention, lacks insight into his pressured speech, agitation, and tangential thoughts. Again left VM for daughter to obtain collateral info. 01/14: Will start depakote ER 500 mg QHS for mood lability and apparent manic sx. Did not start atypical due to metabolic SE, as pt has hx of obesity and is now s/p gastric bypass. Pt does not have hx of itz per collateral contact, however will treat sx at this time. Head CT negative. Utox only positive for cannabis. 01/15: Pt refusing depakote ER 500 mg QHS 01/16: Pt refusing depakote ER 500 mg QHS, continues to present with manic sx of hyposomnia, disorganized thoughts, and agitation. Will add abilify 5 mg daily, as pt is endorsing paranoid delusional thought content during interview and per collateral contact. Consideration made to use atypical with low metabolic SE profile. Q15 min safety checks, CV Monitor response to medications. Monitor for safety in the milieu. Discharge on stabilization. Patient seen. Chart reviewed. Discussed with team. Obtain collateral contact info?as needed 01/17- pt informed of filing as pt continues paranoid, reporting CAH of hurting others. 01/18 continue current medications 01/19 continue current medications. committed to hospital, on section 8. Will start risperidone, back up Olanzapine IM if refuses oral. continue depakote. 01/21 Section 8- oral risperidone, back up Olanzapine IM. 01/22: Continue current regimen and plans 01/23: Continue current regimen and plans 01/24 continue current medications, will titrate risperidone as needed. 01/25 continue current medications. 01/26 continue current medications. 01/27 continue current medications. 01/28 continue current treatment. I spent minutes with the patient and/or on the patient floor today, greater than?50% of which was spent counseling/coordinating care. Reason for contiued inpatient stay Substantial Risk for: inability to function
[2022-01-28] MEDS: Magnesium Hydrox/Alum Hydrox 30 ML ORAL.SUSP PO (14:14)
[2022-01-28 22:00] VITALS: BP 106/61; PULSE 89; RESP 18; TEMP 36.2; O2SAT 98
[2022-01-28] MEDS: traZODone HCL 100 MG TABLET PO (22:00)
[2022-01-28] MEDS: Mineral Oil/Petrolatum,White 106 GM Tube 1 APPL TOPICAL (22:03)
[2022-01-29 06:35] VITALS: BMI 28.9
[2022-01-29 08:28] VITALS: BP 136/69; PULSE 83; RESP 18; TEMP 36.6; O2SAT 97
[2022-01-29] MEDS: risperiDONE Oral Sol 1 MG/ML SOLUTION 2 MG PO ×2 (09:00→20:54)
[2022-01-29] MEDS: Mineral Oil/Petrolatum,White 106 GM Tube 1 APPL TOPICAL (09:01)
--- NOTE | 2022-01-29 09:26 | P.PNPSI_ITS ---
Subjective Subjective Date of Service: 01/29/22 Reason For Visit: Paranoia Subjective Notes: Logan Warning and Section 8 Interim History: I spoke to pt this morning with aerial photograph interpreter and upon interivew he reports up to now everything has been fine. Said sleep was poor last night, attributes this to his roommate, says he very rude and that he was in such a bad mood. Says his daughter has to earn privileges with him. Pt continues to present with poor insight, poor impulse control, and threats of violence, as he says if he is hit, he will hit back. Says he feels normal on the medication. Denies SE. wants to go home, then says if he could, he would break the door down. Appetite is increased. Medication Compliance: Yes Side effects from medications: No Attending Groups: No Review of Systems Acute medical concerns: No Medical Review of Systems: unchanged Mental Status Exam Mental Status Exam Narrative: In today's visit he is alert, pleasant and interactive within his means.? Speech is soft-spoken.? Moderate eye contact.? Affect is contained.? No overt aggressive behaviors or irritability.? Pt appears suspicious, paranoid, and makes vague threats of violence behavior. No known cognitive impairment. Judgment is marginally intact Diagnostics Vital Signs (24Hr): Vital Signs - 24 hr 01/28/22 22:00 01/29/22 08:28 Temperature 97.1 F 97.9 F Pulse Rate 89 83 Respiratory Rate 18 18 Blood Pressure 106/61 136/69 Pulse Oximetry 98 97 Oxygen Delivery Method Room Air Room Air BMI result Body Mass Index 28.9 Labs Results: 01/10/22 21:41 01/10/22 21:41 Imaging Radiology Impressions: ITS Impressions Head CT 01/10/22 23:18 IMPRESSION: No acute intracranial pathology. Medications Medications Current Medications Acetaminophen (Acetaminophen 325 Mg Tablet) 650 mg PO Q6H PRN PRN Reason: Headache/Pain Mild Scale (1-3) Last Admin: 01/28/22 03:15 Dose: 650 mg Al Hydroxide/Mg Hydroxide (Magnesium Hydrox/Alum Hydrox 30 Ml Oral.Susp) 30 ml PO Q6H PRN PRN Reason: Heartburn/Nausea Last Admin: 01/28/22 14:14 Dose: 30 ml Aspirin (Aspirin 81 Mg Tab.Chew) 81 mg PO DAILY [facility] Last Admin: 01/29/22 09:06 Dose: Not Given Clopidogrel Bisulfate (Clopidogrel Bisulfate 75 Mg Tablet) 75 mg PO DAILY [facility] Last Admin: 01/29/22 09:06 Dose: Not Given Hydroxyzine HCl (Hydroxyzine Hcl 25 Mg Tablet) 25 mg PO Q6H PRN PRN Reason: Anxiety Magnesium Hydroxide (Milk Of Magnesia 30 Ml Oral.Susp) 30 ml PO DAILY PRN PRN Reason: Constipation Last Admin: 01/24/22 20:24 Dose: 30 ml Multi-Ingred Cream/Lotion/Oil/Oint (Mineral Oil/Petrolatum,White 106 Gm Tube) 1 appl TOPICAL BID [facility] Last Admin: 01/29/22 09:01 Dose: 1 appl Olanzapine (Olanzapine 10 Mg Vial) 10 mg IM BID PRN PRN Reason: if refuses oral risperidone Last Admin: 01/25/22 22:14 Dose: 10 mg Risperidone (Risperidone Oral Mary Alice 1 Mg/Ml Solution) 2 mg PO BID [facility] Last Admin: 01/29/22 09:00 Dose: 2 mg Trazodone HCl (Trazodone Hcl 100 Mg Tablet) 100 mg PO BEDTIME [facility] Last Admin: 01/28/22 22:00 Dose: 100 mg Allergies Allergies Allergy/AdvReac Type Severity Reaction Status Date / Time Sulfa (Sulfonamide Allergy Intermediate hives Verified 12/27/21 13:12 Antibiotics) [SULFA (SULFONAMIDE ANTIBIOTICS)] Assessment & Plan Assessment & Plan (1) Bipolar disorder with psychotic features: Status: Acute Code(s): F31.9 - Bipolar disorder, unspecified Plan Juan Jose is a 56 yold male who carries a dx of MDD recurrent, r/o schizoaffective disorder. He presented to [facility] on 01/10/2022 via section 12a for paranoid and A/VH. Per [facility] crisis, pt was paranoid, pacing during eval. He reportedly heard AH telling him to kill others, seeing cars following him. Reportedly pt has not been sleeping, pacing the hallways at night. Head CT showed no acute intracranial pathology. Utox positive for cannabis. Per chart review, pt has multiple co-morbid medical issues. No hx of previous psych IPLOC. No hx of antipsychotic or mood stabilizing medications. Pt was adherent with OP psych services up until 05/2021, was on wellbutrin XL and buspar up until 03/2021. Plan: Pt is not interested in medication management. Will speak with daughter to obtain collateral info. Pt is tangential and pressured, endorses AH but otherwise no behavioral issues observed, denies mood concerns. 01/13: Pt is refusing medication intervention, lacks insight into his pressured speech, agitation, and tangential thoughts. Again left VM for daughter to obtain collateral info. 01/14: Will start depakote ER 500 mg QHS for mood lability and apparent manic sx. Did not start atypical due to metabolic SE, as pt has hx of obesity and is now s/p gastric bypass. Pt does not have hx of itz per collateral contact, however will treat sx at this time. Head CT negative. Utox only positive for ca nnabis. 01/15: Pt refusing depakote ER 500 mg QHS 01/16: Pt refusing depakote ER 500 mg QHS, continues to present with manic sx of hyposomnia, disorganized thoughts, and agitation. Will add abilify 5 mg daily, as pt is endorsing paranoid delusional thought content during interview and per collateral contact. Consideration made to use atypical with low metabolic SE profile. Q15 min safety checks, CV Monitor response to medications. Monitor for safety in the milieu. Discharge on stabilization. Patient seen. Chart reviewed. Discussed with team. Obtain collateral contact info?as needed 01/17- pt informed of filing as pt continues paranoid, reporting CAH of hurting others. 01/18 continue current medications 01/19 continue current medications. committed to hospital, on section 8. Will start risperidone, back up Olanzapine IM if refuses oral. continue depakote. 01/21 Section 8- oral risperidone, back up Olanzapine IM. 01/22: Continue current regimen and plans 01/23: Continue current regimen and plans 01/24 continue current medications, will titrate risperidone as needed. 01/25 continue current medications. 01/26 continue current medications. 01/27 continue current medications. 01/28 continue current treatment. 01/29 Unclear why depakote d/c'd. Pt continues on risperdal, unclear benefit. per freelance interpreter/translator, he continues to be derailed, makes vague threats of hitting others and wanting to break door down. I spent minutes with the patient and/or on the patient floor today, greater than?50% of which was spent counseling/coordinating care. Patient educated on: medication risk/benefits and therapeutic strategies Reason for contiued inpatient stay Substantial Risk for: rapid decompensation and med/psych decompensation
[2022-01-29 20:50] VITALS: BP 154/68; PULSE 91; RESP 18; TEMP 36.8; O2SAT 99
[2022-01-29] MEDS: traZODone HCL 100 MG TABLET PO (21:01)
[2022-01-30 08:35] VITALS: BP 130/60; PULSE 80; RESP 18; TEMP 36.8; O2SAT 96
[2022-01-30] MEDS: risperiDONE Oral Sol 1 MG/ML SOLUTION 2 MG PO (08:40)
--- NOTE | 2022-01-30 10:56 | HO.PSYCHPN ---
Subjective Subjective Date of Service: 01/30/22 Reason For Visit: Paranoia Subjective Notes: Logan Warning and Section 8 Healthcare Proxy: No Guardianship: No Medical Problems Affecting Mental Status: No Interim History: I spoke with pt with physician anesthesiologist, he says I havent slept well. Mood is okay. Says now Im trying to get along [with his roommate] because I want to leave. He remains paranoid towards family and staff. Daughter visited and pt says I know her plans, says she is looking to get money. Wants to look for a new PACKAGING ENGINEER, as daughter is currently his PACKAGING ENGINEER. Feels like he needs to be strict with her. Says if he is here for 2-3 days more he will get upset. I just want to speak with my trial lawyer. Says I have been intelligent, patient, does not feel he should be locked up. Complains of urinary hesitancy, asks t/w will be done about it and dissatisfied this is not being treated as a medical emergency. Also complains of his blood sugar being high, recommended his gf bring in his trulicity. Complains of increased appetite. Medication Compliance: Yes Side effects from medications: No Attending Groups: No Review of Systems Acute medical concerns: No Medical Review of Systems: unchanged Review of Systems Review of Systems In today's visit he is alert, pleasant and interactive within his means.? Speech is soft-spoken.? Moderate eye contact.? Affect is contained.? No overt aggressive behaviors or irritability.? Pt appears suspicious, paranoid, and makes vague threats of violence behavior. No known cognitive impairment. Judgment is marginally intact. Mental Status Exam Mental Status Exam Narrative: In today's visit he is alert, pleasant and interactive within his means.? Speech is soft-spoken.? Moderate eye contact.? Affect is contained.? No overt aggressive behaviors or irritability.? Pt appears suspicious, paranoid, and makes vague threats of violence behavior. No known cognitive impairment. Judgment is marginally intact Diagnostics Vital Signs (24Hr): Vital Signs - 24 hr 01/29/22 20:50 01/30/22 08:35 Temperature 98.2 F 98.3 F Pulse Rate 91 80 Respiratory Rate 18 18 Blood Pressure 154/68 H 130/60 Pulse Oximetry 99 96 Oxygen Delivery Method Room Air Room Air BMI result Body Mass Index 28.9 Labs Results: 01/10/22 21:41 08/15/22 21:41 Imaging Radiology Impressions: ITS Impressions Head CT 01/10/22 23:18 IMPRESSION: No acute intracranial pathology. Medications Medications Current Medications Acetaminophen (Acetaminophen 325 Mg Tablet) 650 mg PO Q6H PRN PRN Reason: Headache/Pain Mild Scale (1-3) Last Admin: 01/28/22 03:15 Dose: 650 mg Al Hydroxide/Mg Hydroxide (Magnesium Hydrox/Alum Hydrox 30 Ml Oral.Susp) 30 ml PO Q6H PRN PRN Reason: Heartburn/Nausea Last Admin: 01/28/22 14:14 Dose: 30 ml Aspirin (Aspirin 81 Mg Tab.Chew) 81 mg PO DAILY [facility] Last Admin: 01/30/22 08:40 Dose: Not Given Clopidogrel Bisulfate (Clopidogrel Bisulfate 75 Mg Tablet) 75 mg PO DAILY [facility] Last Admin: 01/30/22 08:41 Dose: Not Given Hydroxyzine HCl (Hydroxyzine Hcl 25 Mg Tablet) 25 mg PO Q6H PRN PRN Reason: Anxiety Magnesium Hydroxide (Milk Of Magnesia 30 Ml Oral.Susp) 30 ml PO DAILY PRN PRN Reason: Constipation Last Admin: 01/24/22 20:24 Dose: 30 ml Multi-Ingred Cream/Lotion/Oil/Oint (Mineral Oil/Petrolatum,White 106 Gm Tube) 1 appl TOPICAL BID [facility] Last Admin: 01/30/22 08:41 Dose: Not Given Olanzapine (Olanzapine 10 Mg Vial) 10 mg IM BID PRN PRN Reason: if refuses oral risperidone Last Admin: 01/25/22 22:14 Dose: 10 mg Risperidone (Risperidone Oral Mary Alice 1 Mg/Ml Solution) 2 mg PO BID [facility] Last Admin: 01/30/22 08:40 Dose: 2 mg Trazodone HCl (Trazodone Hcl 100 Mg Tablet) 100 mg PO BEDTIME [facility] Last Admin: 01/29/22 21:01 Dose: 100 mg Allergies Allergies Allergy/AdvReac Type Severity Reaction Status Date / Time Sulfa (Sulfonamide Allergy Intermediate hives Verified 12/27/21 13:12 Antibiotics) [SULFA (SULFONAMIDE ANTIBIOTICS)] Assessment & Plan Assessment & Plan (1) Bipolar disorder with psychotic features: Status: Acute Code(s): F31.9 - Bipolar disorder, unspecified Plan Juan Jose is a 56 yold male who carries a dx of MDD recurrent, r/o schizoaffective disorder. He [place] [facility] on 01/10/2022 via section 12a for paranoid and A/VH. Per [facility] crisis, pt was paranoid, pacing during eval. He reportedly heard AH telling him to kill others, seeing cars following him. Reportedly pt has not been sleeping, pacing the hallways at night. Head CT showed no acute intracranial pathology. Utox positive for cannabis. Per chart review, pt has multiple co-morbid medical issues. No hx of previous psych IPLOC. No hx of antipsychotic or mood stabilizing medications. Pt was adherent with OP psych services up until 05/2021, was on wellbutrin XL and buspar up until 03/2021. Plan: Pt is not interested in medication management. Will speak with daughter to obtain collateral info. Pt is tangential and pressured, endorses AH but otherwise no behavioral issues observed, denies mood concerns. 01/13: Pt is refusing medication intervention, lacks insight into his pressured speech, agitation, and tangential thoughts. Again left VM for daughter to obtain collateral info. 01/14: Will start depakote ER 500 mg QHS for mood lability and apparent manic sx. Did not start atypical due to metabolic SE, as pt has hx of obesity and is now s/p gastric bypass. Pt does not have hx of itz per collateral contact, however will treat sx at this time. Head CT negative. Utox only positive for cannabis. 01/15: Pt refusing depakote ER 500 mg QHS 01/16: Pt refusing depakote ER 500 mg QHS, continues to present with manic sx of hyposomnia, disorganized thoughts, and agitation. Will add abilify 5 mg daily, as pt is endorsing paranoid delusional thought content during interview and per collateral contact. Consideration made to use atypical with low metabolic SE profile. Q15 min safety checks, CV Monitor response to medications. Monitor for safety in the milieu. Discharge on stabilization. Patient seen. Chart reviewed. Discussed with team. Obtain collateral contact info?as needed 01/17- pt informed of filing as pt continues paranoid, reporting CAH of hurting others. 01/18 continue current medications 01/19 continue current medications. committed to hospital, on section 8. Will start risperidone, back up Olanzapine IM if refuses oral. continue depakote. 01/21 Section 8- oral risperidone, back up Olanzapine IM. 01/22: Continue current regimen and plans 01/23: Continue current regimen and plans 01/24 continue current medications, will titrate risperidone as needed. 01/25 continue current medications. 01/26 continue current medications. 01/27 continue current medications. 01/28 continue current treatment. 01/29 Unclear why depakote d/c'd. Pt continues on risperdal, unclear benefit. per physician anesthesiologist, he continues to be derailed, makes vague threats of hitting others and wanting to break door down. 01/30 Pt presents as hostile, unfocused on treatment, suspicious and paranoid I spent minutes with the patient and/or on the patient floor today, greater than?50% of which was spent counseling/coordinating care. Patient educated on: medication risk/benefits and therapeutic strategies Reason for contiued inpatient stay Substantial Risk for: harm to others, inability to function, rapid decompensation and med/psych decompensation
[2022-01-30] MEDS: Milk of Magnesia 30 ML ORAL.SUSP PO (14:17)
[2022-01-30 18:00] VITALS: BP 135/64; PULSE 90; RESP 18; TEMP 36.6; O2SAT 96
[2022-01-30 20:44] LABS: Glucose, Whole Blood 225 mg/dL (60-115)
[2022-01-30] MEDS: traZODone HCL 100 MG TABLET PO (21:52)
[2022-01-30] MEDS: OLANZapine 10 MG VIAL IM (22:12)
--- NOTE | 2022-01-30 22:23 | PC.NURSE ---
Patient expresses himself to this nurse through Maldivian speaking staff interpreting. Patient complaining of not feeling well due to his diabetes and would like blood glucose levels checked. Patient has documented diagnosis of uncontrolled diabetes, but no medications ordered to address blood glucose since admission. Patient has Trulicity listed as a home medication. Blood glucose at 225 at 8:30pm. Patient states that at home his symptoms normally occur due to low blood glucose levels and are resolved with snacks. Patient states that at home his blood glucose never registers over 185. PROFESSIONAL SERVICES CONSULTANT notified through [employer].
--- NOTE | 2022-01-30 22:30 | PC.NURSE ---
Patient refuses oral resperidone, requests IM replacement. PRN Zyprexa 10 mg administered in left deltoid per patient request without resistance.
--- NOTE | 2022-01-30 23:45 | PC.NURSE ---
Patient expresses himself by [place] speaking staff interpreting. Complains that he can't urinate earlier in the shift. Has expressed having issues urinary retention. Patient wakes from sleeping in sensory room at 11:35pm requesting to use the unit bathroom in hallway. After using the bathroom patient is asked (in [place]) if he urinated, if he had any difficulty or pain with urination, and if he still felt the urge to urinate. Patient responded that he did urinate with no difficulty or pain and he no longer feels an urge to urinate. Patient returns to resting in sensory room.
[2022-01-31 09:10] LABS: Glucose, Whole Blood 132 mg/dL (60-115)
[2022-01-31 09:32] VITALS: BP 153/68; PULSE 76; RESP 18; TEMP 36.2; O2SAT 100
--- NOTE | 2022-01-31 09:39 | PC.NURSE ---
Met with patient and site interpreter at clients request. Patient expressed his frustration regarding his care here. Translation provided by [employer]. Reports he has had 12 laser eye procedures. He sees blood coming down from his eyes. He feels like he is getting electric shocks on the L and R shoulders. Only 2-3 staff have applied lotion to his feet only few times. Says he has cut on bottom of foot. He needs pressure socks because he is holding fluid. Staff do not know how to care for patients they are crazy. States he is sleeping with a crazy person in his room. Says staff has games, hanging out with people who defecate on themselves. Feels his brain is acting differently. He feels frustrated and angry, he does not have control over his environment. Feels anxious he needs to repeat himself.
[2022-01-31] MEDS: risperiDONE Oral Sol 1 MG/ML SOLUTION 2 MG PO ×2 (10:11→22:18)
[2022-01-31] MEDS: Aspirin 81 MG TAB.CHEW PO (10:12)
[2022-01-31] MEDS: Clopidogrel Bisulfate 75 MG TABLET PO (10:13)
[2022-01-31 13:24] LABS: Glucose, Whole Blood 282 mg/dL (60-115)
--- NOTE | 2022-01-31 16:43 | HO.PSYCHPN ---
Subjective Subjective Date of Service: 01/31/22 Reason For Visit: Paranoia Subjective Notes: Logan Warning and Section 8 Healthcare Proxy: No Guardianship: No Medical Problems Affecting Mental Status: No Interim History: I spoke with pt today with interpreter and translator, says he is distressed because his sugar has been high, his gf brought in his trulicity, which he will re-start. Says he only slept 3 hours. denies SI/SIB. When asked about assaultive ideation, he says he is unable to say if he has thoughts about hurting others, my brain does whatever it wants to do. He is paranoid, insists his gf brought him sweatpants without strings and that staff gave them back to him with strings to play games and that he returned the string as a good efren effort but adds if i wanted to, I could choke someone. Continues to complain of increased appetite. Medication Compliance: Yes Side effects from medications: Yes Attending Groups: No Review of Systems Acute medical concerns: No Medical Review of Systems: unchanged Mental Status Exam Mental Status Exam Narrative: In today's visit he is alert, pleasant and interactive within his means.? Speech is soft-spoken.? Moderate eye contact.? Affect is contained.? No overt aggressive behaviors or irritability.? Pt appears suspicious, paranoid, and makes vague threats of violence behavior. No known cognitive impairment. Judgment is marginally intact. Diagnostics Vital Signs (24Hr): Vital Signs - 24 hr 01/30/22 18:00 01/31/22 09:32 Temperature 97.9 F 97.1 F Pulse Rate 90 76 Respiratory Rate 18 18 Blood Pressure 135/64 153/68 H Pulse Oximetry 96 100 Oxygen Delivery Method Room Air Room Air BMI result Body Mass Index 28.9 Labs Results: 01/10/22 21:41 01/10/22 21:41 Labs: Laboratory Results - last 48 hr 01/30/22 01/31/22 01/31/22 20:27 09:02 13:20 POC Glucose 225 H 132 H 282 H Imaging Radiology Impressions: ITS Impressions Head CT 01/10/22 23:18 IMPRESSION: No acute intracranial pathology. Medications Medications Current Medications Acetaminophen (Acetaminophen 325 Mg Tablet) 650 mg PO Q6H PRN PRN Reason: Headache/Pain Mild Scale (1-3) Last Admin: 01/28/22 03:15 Dose: 650 mg Al Hydroxide/Mg Hydroxide (Magnesium Hydrox/Alum Hydrox 30 Ml Oral.Susp) 30 ml PO Q6H PRN PRN Reason: Heartburn/Nausea Last Admin: 01/28/22 14:14 Dose: 30 ml Aspirin (Aspirin 81 Mg Tab.Chew) 81 mg PO DAILY [facility] Last Admin: 01/31/22 10:12 Dose: 81 mg Clopidogrel Bisulfate (Clopidogrel Bisulfate 75 Mg Tablet) 75 mg PO DAILY [facility] Last Admin: 01/31/22 10:13 Dose: 75 mg Hydroxyzine HCl (Hydroxyzine Hcl 25 Mg Tablet) 25 mg PO Q6H PRN PRN Reason: Anxiety Magnesium Hydroxide (Milk Of Magnesia 30 Ml Oral.Susp) 30 ml PO DAILY PRN PRN Reason: Constipation Last Admin: 01/30/22 14:17 Dose: 30 ml Multi-Ingred Cream/Lotion/Oil/Oint (Mineral Oil/Petrolatum,White 106 Gm Tube) 1 appl TOPICAL BID [facility] Last Admin: 01/31/22 14:15 Dose: Not Given Pt Own (Trulicity 3 (Mg)) 3 mg SUBCUT Mo [facility] Olanzapine (Olanzapine 10 Mg Vial) 10 mg IM BID PRN PRN Reason: if refuses oral risperidone Last Admin: 01/30/22 22:12 Dose: 10 mg Risperidone (Risperidone Oral Mary Alice 1 Mg/Ml Solution) 2 mg PO BID [facility] Last Admin: 01/31/22 10:11 Dose: 2 mg Trazodone HCl (Trazodone Hcl 100 Mg Tablet) 100 mg PO BEDTIME [facility] Last Admin: 01/30/22 21:52 Dose: 100 mg Allergies Allergies Allergy/AdvReac Type Severity Reaction Status Date / Time Sulfa (Sulfonamide Allergy Intermediate hives Verified 12/27/21 13:12 Antibiotics) [SULFA (SULFONAMIDE ANTIBIOTICS)] Assessment & Plan Assessment & Plan (1) Bipolar disorder with psychotic features: Status: Acute Code(s): F31.9 - Bipolar disorder, unspecified Plan Juan Jose is a 56 yold male who carries a dx of MDD recurrent, r/o schizoaffective disorder. He presented to [facility] on 01[place]10/2022 via section 12a for paranoid and A/VH. Per [facility] crisis, pt was paranoid, pacing during eval. He reportedly heard AH telling him to kill others, seeing cars following him. Reportedly pt has not been sleeping, pacing the hallways at night. Head CT showed no acute intracranial pathology. Utox positive for cannabis. Per chart review, pt has multiple co-morbid medical issues. No hx of previous psych IPLOC. No hx of antipsychotic or mood stabilizing medications. Pt was adherent with OP psych services up until 05/2021, was on wellbutrin XL and buspar up until 03/2021. Plan: Pt is not interested in medication management. Will speak with daughter to obtain collateral info. Pt is tangential and pressured, endorses AH but otherwise no behavioral issues observed, denies mood concerns. 01/13: Pt is refusing medication intervention, lacks insight into his pressured speech, agitation, and tangential thoughts. Again left VM for daughter to obtain collateral info. 01/14: Will start depakote ER 500 mg QHS for mood lability and apparent manic sx. Did not start atypical due to metabolic SE, as pt has hx of obesity and is now s/p gastric bypass. Pt does not have hx of itz per collateral contact, however will treat sx at this time. Head CT negative. Utox only positive for cannabis. 01/15: Pt refusing depakote ER 500 mg QHS 01/16: Pt refusing depakote ER 500 mg QHS, continues to present with manic sx of hyposomnia, disorganized thoughts, and agitation. Will add abilify 5 mg daily, as pt is endorsing paranoid delusional thought content during interview and per collateral contact. Consideration made to use atypical with low metabolic SE profile. Q15 min safety checks, CV Monitor response to medications. Monitor for safety in the milieu. Discharge on stabilization. Patient seen. Chart reviewed. Discussed with team. Obtain collateral contact info?as needed 01/17- pt informed of filing as pt continues paranoid, reporting CAH of hurting others. 01/18 continue current medications 01/19 continue current medications. committed to hospital, on section 8. Will start risperidone, back up Olanzapine IM if refuses oral. continue depakote. 01/21 Section 8- oral risperidone, back up Olanzapine IM. 01/22: Continue current regimen and plans 01/23: Continue current regimen and plans 01/24 continue current medications, will titrate risperidone as needed. 01/25 continue current medications. 01/26 continue current medications. 01/27 continue current medications. 01/28 continue current treatment. 01/29 Unclear why depakote d/c'd. Pt continues on risperdal, unclear benefit. per interpreter and translator, he continues to be derailed, makes vague threats of hitting others and wanting to break door down. 01/30 Pt presents as hostile, unfocused on treatment, suspicious and paranoid 01/31 Pt continues to present as paranoid and suspicious I spent minutes with the patient and/or on the patient floor today, greater than?50% of which was spent counseling/coordinating care. Patient educated on: medication risk/benefits Reason for contiued inpatient stay Substantial Risk for: harm to others, inability to function, rapid decompensation and med/psych decompensation
[2022-01-31 17:23] LABS: Glucose, Whole Blood 168 mg/dL (60-115)
[2022-01-31 18:56] LABS: Glucose, Whole Blood 200 mg/dL (60-115)
[2022-01-31 19:40] VITALS: BP 139/65; PULSE 88; RESP 16; TEMP 36.3; O2SAT 100
[2022-01-31] MEDS: Mineral Oil/Petrolatum,White 106 GM Tube 1 APPL TOPICAL (22:18)
[2022-01-31] MEDS: traZODone HCL 100 MG TABLET PO (23:03)
[2022-02-01 05:15] LABS: Glucose, Whole Blood 224 mg/dL (60-115)
[2022-02-01] MEDS: Milk of Magnesia 30 ML ORAL.SUSP PO (06:14)
[2022-02-01 08:05] LABS: Glucose, Whole Blood 152 mg/dL (60-115)
[2022-02-01] MEDS: Clopidogrel Bisulfate 75 MG TABLET PO (08:22)
[2022-02-01] MEDS: Aspirin 81 MG TAB.CHEW PO (08:22)
[2022-02-01] MEDS: risperiDONE Oral Sol 1 MG/ML SOLUTION 2 MG PO (08:22)
[2022-02-01] MEDS: Mineral Oil/Petrolatum,White 106 GM Tube 1 APPL TOPICAL ×2 (08:37→22:42)
[2022-02-01 08:47] VITALS: BP 127/58; PULSE 88; RESP 16; TEMP 36.6; O2SAT 98
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
[2022-02-01 12:19] LABS: Glucose, Whole Blood 114 mg/dL (60-115)
[2022-02-01 17:08] LABS: MANUAL DIFF FLAG NO
[2022-02-01 17:11] LABS: Basophils Absolute Auto 0.1 X10*3/uL (0.0-0.2); Basophils Percent Auto 0.6 % (0-2); Eosinophils Absolute Auto 0.4 X10*3/uL (0.0-0.4); Eosinophils Percent Auto 3.3 % (0-4); Hematocrit 29.5 % (42.0-52.0); Hemoglobin 9.4 g/dl (14.0-18.0); Imm Gran Abs Auto 0.03 X10*3/uL (0.00-0.03); Imm Gran Pct Auto 0.3 % (0.0-0.4); Lymphocytes Percent Auto 17.5 % (20-40); Mean Corpuscular HGB Conc 31.9 g/dl (31.0-36.0); Mean Corpuscular Hemoglobin 26.6 pg (27.0-33.0); Mean Corpuscular Volume 83.6 fL (80.0-98.0); Monocytes Absolute Auto 1.1 X10*3/uL (0.1-1.2); Monocytes Percent Auto 9.2 % (2-11); Neutrophils Absolute Auto 7.9 x10*3/uL (2.0-8.3); Neutrophils Percent Auto 69.1 % (45-73); Platelet Count 429 X10*3/uL (160-400); Red Blood Count 3.53 X10*6/uL (4.60-5.80); Red Cell Distribution Width 16.1 % (11.0-16.0); White Blood Count 11.4 X10*3/uL (4.8-10.8)
[2022-02-01 17:22] LABS: Estimated Average Glucose 117 mg/dL; Hemoglobin A1c % 5.7 %
[2022-02-01 17:32] LABS: Alanine Aminotransferase 40 U/L (0-40); Albumin Level 3.2 g/dL (3.5-5.0); Alkaline Phosphatase 110 U/L (39-117); Anion Gap 14 (12-20); Aspartate Amino Transferase 25 U/L (5-37); Bilirubin Total 0.3 mg/dL (0.0-1.0); Blood Urea Nitrogen 28 mg/dL (9-16); Calcium 7.9 mg/dL (8.4-10.2); Carbon Dioxide 26 mmol/L (22-29); Chloride 105 mmol/L (96-108); Creatinine Clr Calc Pharmacy 58.5; Estimated Glomerular Filt Rate 52; Glucose Random 161 mg/dL (60-115); Potassium 5.1 mmol/L (3.3-5.1); Sodium 140 mmol/L (135-145); Total Protein 6.3 g/dL (6.5-8.0)
[2022-02-01 21:42] LABS: Glucose, Whole Blood 141 mg/dL (60-115)
[2022-02-01] MEDS: risperiDONE Oral Sol 1 MG/ML SOLUTION 3 MG PO (22:40)
[2022-02-01] MEDS: traZODone HCL 100 MG TABLET PO (22:40)
[2022-02-01 22:48] VITALS: BP 148/78; PULSE 98; TEMP 36.6; O2SAT 96
[2022-02-02] MEDS: traZODone HCL 100 MG TABLET PO (01:56)
[2022-02-02 06:37] VITALS: BMI 29.4
[2022-02-02 08:23] LABS: Glucose, Whole Blood 134 mg/dL (60-115)
[2022-02-02] MEDS: Mineral Oil/Petrolatum,White 106 GM Tube 1 APPL TOPICAL ×2 (08:42→22:03)
[2022-02-02] MEDS: Clopidogrel Bisulfate 75 MG TABLET PO (08:50)
[2022-02-02] MEDS: Aspirin 81 MG TAB.CHEW PO (08:51)
[2022-02-02] MEDS: risperiDONE Oral Sol 1 MG/ML SOLUTION 3 MG PO (08:51)
[2022-02-02 09:04] VITALS: BP 132/63; PULSE 82; RESP 16; TEMP 36.2; O2SAT 99
--- NOTE | 2022-02-02 10:48 | HO.PSYCHPN ---
Subjective Subjective Date of Service: 02/02/22 Reason For Visit: Paranoia Subjective Notes: Section 8 Interim History: Pt appears somewhat unsteady on feet with increase dose of risperidone, but he denies dizziness- will check orth VS. He continues to report mistrust in staff here and fear that his property in is being stolen as it is worth billions of dollars. Per nursing, at times poor boundaries with female staff, able to be redirected. He is suspicious towards peer. Medication Compliance: Yes Side effects from medications: No Review of Systems Review of Systems In today's visit he is alert, pleasant and interactive within his means.? Speech is soft-spoken.? Moderate eye contact.? Affect is contained.? No overt aggressive behaviors or irritability.? Pt appears suspicious, paranoid, and makes vague threats of violence behavior. No known cognitive impairment. Judgment is marginally intact. Yes all other systems are reviewed and are negative and Unobtainable due to mental status Mental Status Exam Mental Status Exam Narrative: Appearance: casually groomed, fair hygiene in NAD Behavior:somewhat guarded psychomotor: no agitation or retardation noted Speech: clear, normal rate/rhythm/volume, spontaneous Thought process:tangential Thought content:paranoid delusions Mood: frustrated Affect: congruent SI:denies HI:denies VH/AH:denies Delusions:paranoid/grandiose delusions Insight/judgment:poor x 2. Memory/cog: alert, oriented x 3. t Diagnostics Vital Signs (24Hr): Vital Signs - 24 hr 02/01/22 22:48 02/02/22 09:04 Temperature 97.8 F 97.1 F Pulse Rate 98 82 Respiratory Rate 16 Blood Pressure 148/78 H 132/63 Pulse Oximetry 96 99 Oxygen Delivery Method Room Air Room Air BMI result Body Mass Index 29.4 Labs Results: 02/01/22 17:04 02/01/22 17:04 Labs: Laboratory Results - last 48 hr 01/31/22 01/31/22 01/31/22 13:20 17:18 18:51 WBC RBC Hgb Hct MCV MCH MCHC RDW Plt Count MPV Immature Gran % (Auto) Neut % (Auto) Lymph % (Auto) Benton % (Auto) Eos % (Auto) Baso % (Auto) Lymph # (Auto) Benton # (Auto) Eos # (Auto) Baso # (Auto) Abs Immat Gran (auto) Absolute Neuts (auto) Absolute Nucleated RBC Nucleated RBC % (auto) Sodium Potassium Chloride Carbon Dioxide Anion Gap BUN Creatinine Estim Creat Clear Calc Estimated GFR POC Glucose 282 H 168 H 200 H Random Glucose Estimat Average Glucose Hemoglobin A1c % Calcium Total Bilirubin AST ALT Alkaline Phosphatase Total Protein Albumin 02/01/22 02/01/22 02/01/22 01:59 07:59 12:15 WBC RBC Hgb Hct MCV MCH MCHC RDW Plt Count MPV Immature Gran % (Auto) Neut % (Auto) Lymph % (Auto) Benton % (Auto) Eos % (Auto) Baso % (Auto) Lymph # (Auto) Benton # (Auto) Eos # (Auto) Baso # (Auto) Abs Immat Gran (auto) Absolute Neuts (auto) Absolute Nucleated RBC Nucleated RBC % (auto) Sodium Potassium Chloride Carbon Dioxide Anion Gap BUN Creatinine Estim Creat Clear Calc Estimated GFR POC Glucose 224 H 152 H 114 Random Glucose Estimat Average Glucose Hemoglobin A1c % Calcium Total Bilirubin AST ALT Alkaline Phosphatase Total Protein Albumin 02/01/22 02/01/22 02/01/22 17:04 17:04 17:04 WBC 11.4 H RBC 3.53 L Hgb 9.4 L Hct 29.5 L MCV 83.6 MCH 26.6 L MCHC 31.9 RDW 16.1 H Plt Count 429 H MPV 9.0 L Immature Gran % (Auto) 0.3 Neut % (Auto) 69.1 Lymph % (Auto) 17.5 L Benton % (Auto) 9.2 Eos % (Auto) 3.3 Baso % (Auto) 0.6 Lymph # (Auto) 2.0 Benton # (Auto) 1.1 Eos # (Auto) 0.4 Baso # (Auto) 0.1 Abs Immat Gran (auto) 0.03 Absolute Neuts (auto) 7.9 Absolute Nucleated RBC 0.000 Nucleated RBC % (auto) 0.0 Sodium 140 Potassium 5.1 Chloride 105 Carbon Dioxide 26 Anion Gap 14 BUN 28 H Creatinine 1.41 H Estim Creat Clear Calc 58.5 Estimated GFR 52 POC Glucose Random Glucose 161 H D Estimat Average Glucose 117 Hemoglobin A1c % 5.7 Calcium 7.9 L Total Bilirubin 0.3 AST 25 ALT 40 Alkaline Phosphatase 110 Total Protein 6.3 L Albumin 3.2 L 02/01/22 02/02/22 21:36 08:18 WBC RBC Hgb Hct MCV MCH MCHC RDW Plt Count MPV Immature Gran % (Auto) Neut % (Auto) Lymph % (Auto) Benton % (Auto) Eos % (Auto) Baso % (Auto) Lymph # (Auto) Benton # (Auto) Eos # (Auto) Baso # (Auto) Abs Immat Gran (auto) Absolute Neuts (auto) Absolute Nucleated RBC Nucleated RBC % (auto) Sodium Potassium Chloride Carbon Dioxide Anion Gap BUN Creatinine Estim Creat Clear Calc Estimated GFR POC Glucose 141 H 134 H Random Glucose Estimat Average Glucose Hemoglobin A1c % Calcium Total Bilirubin AST ALT Alkaline Phosphatase Total Protein Albumin Imaging Radiology Impressions: ITS Impressions Head CT 01/10/22 23:18 IMPRESSION: No acute intracranial pathology. Medications Medications Current Medications Acetaminophen (Acetaminophen 325 Mg Tablet) 650 mg PO Q6H PRN PRN Reason: Headache/Pain Mild Scale (1-3) Last Admin: 01/28/22 03:15 Dose: 650 mg Al Hydroxide/Mg Hydroxide (Magnesium Hydrox/Alum Hydrox 30 Ml Oral.Susp) 30 ml PO Q6H PRN PRN Reason: Heartburn/Nausea Last Admin: 01/28/22 14:14 Dose: 30 ml Aspirin (Aspirin 81 Mg Tab.Chew) 81 mg PO DAILY [facility] Last Admin: 02/02/22 08:51 Dose: 81 mg Clopidogrel Bisulfate (Clopidogrel Bisulfate 75 Mg Tablet) 75 mg PO DAILY [facility] Last Admin: 02/02/22 08:50 Dose: 75 mg Hydroxyzine HCl (Hydroxyzine Hcl 25 Mg Tablet) 25 mg PO Q6H PRN PRN Reason: Anxiety Magnesium Hydroxide (Milk Of Magnesia 30 Ml Oral.Susp) 30 ml PO DAILY PRN PRN Reason: Constipation Last Admin: 02/01/22 06:14 Dose: 30 ml Multi-Ingred Cream/Lotion/Oil/Oint (Mineral Oil/Petrolatum,White 106 Gm Tube) 1 appl TOPICAL BID [facility] Last Admin: 02/02/22 08:42 Dose: 1 appl Pt Own (Trulicity 3 (Mg)) 3 mg SUBCUT Mo [facility] Last Admin: 01/31/22 17:21 Dose: 3 mg Olanzapine (Olanzapine 10 Mg Vial) 10 mg IM BID PRN PRN Reason: if refuses oral risperidone Last Admin: 01/30/22 22:12 Dose: 10 mg Risperidone (Risperidone Oral Mary Alice 1 Mg/Ml Solution) 3 mg PO BID [facility] Last Admin: 02/02/22 08:51 Dose: 3 mg Trazodone HCl (Trazodone Hcl 100 Mg Tablet) 100 mg PO BEDTIME [facility] Last Admin: 02/02/22 01:56 Dose: 100 mg Allergies Allergies Allergy/AdvReac Type Severity Reaction Status Date / Time Sulfa (Sulfonamide Allergy Intermediate hives Verified 12/27/21 13:12 Antibiotics) [SULFA (SULFONAMIDE ANTIBIOTICS)] Assessment & Plan Assessment & Plan (1) Bipolar disorder with psychotic features: Status: Acute Code(s): F31.9 - Bipolar disorder, unspecified Plan Juan Jose is a 56 yold male who carries a dx of MDD recurrent, r/o schizoaffective disorder. He presented to [facility] ED on 01/10/2022 via section 12a for paranoid and A/VH. Per [facility] crisis, pt was paranoid, pacing during eval. He reportedly heard telling him to kill others, seeing cars following him. Reportedly pt has not been sleeping, pacing the hallways at night. Head CT showed no acute intracranial pathology. Utox positive for cannabis. Per chart review, pt has multiple co-morbid medical issues. No hx of previous psych IPLOC. No hx of antipsychotic or mood stabilizing medications. Pt was adherent with OP psych services up until 05/2021, was on wellbutrin XL and buspar up until 03/2021. Plan: Pt is not interested in medication management. Will speak with daughter to obtain collateral info. Pt is tangential and pressured, endorses AH but otherwise no behavioral issues observed, denies mood concerns. 01/13: Pt is refusing medication intervention, lacks insight into his pressured speech, agitation, and tangential thoughts. Again left VM for daughter to obtain collateral info. 01/14: Will start depakote ER 500 mg QHS for mood lability and apparent manic sx. Did not start atypical due to metabolic SE, as pt has hx of obesity and is now s/p gastric bypass. Pt does not have hx of itz per collateral contact, however will treat sx at this time. Head CT negative. Utox only positive for cannabis. 01/15: Pt refusing depakote ER 500 mg QHS 01/16: Pt refusing depakote ER 500 mg QHS, continues to present with manic sx of hyposomnia, disorganized thoughts, and agitation. Will add abilify 5 mg daily, as pt is endorsing paranoid delusional thought content during interview and per collateral contact. Consideration made to use atypical with low metabolic SE profile. Q15 min safety checks, CV Monitor response to medications. Monitor for safety in the milieu. Discharge on stabilization. Patient seen. Chart reviewed. Discussed with team. Obtain collateral contact info?as needed 01/17- pt informed of filing as pt continues paranoid, reporting CAH of hurting others. 01/18 continue current medications 01/19 continue current medications. committed to hospital, on section 8. Will start risperidone, back up Olanzapine IM if refuses oral. continue depakote. 01/21 Section 8- oral risperidone, back up Olanzapine IM. 01/22: Continue current regimen and plans 01/23: Continue current regimen and plans 01/24 continue current medications, will titrate risperidone as needed. 01/25 continue current medications. 01/26 continue current medications. 01/27 continue current medications. 01/28 continue current treatment. 01/29 Unclear why depakote d/c'd. Pt continues on risperdal, unclear benefit. 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 01/30 Pt presents as hostile, unfocused on treatment, suspicious and paranoid 01/31 Pt continues to present as paranoid and suspicious 02/01 increase risperidone to 3mg po BID, otherwise will consider switch to another antipsychotic. 02/02 continue current medications, will check ortho VS. I spent minutes with the patient and/or on the patient floor today, greater than?50% of which was spent counseling/coordinating care. Reason for contiued inpatient stay Substantial Risk for: harm to others and inability to function
[2022-02-02 10:52] VITALS: BP 122/58; PULSE 87
[2022-02-02 13:14] LABS: Glucose, Whole Blood 148 mg/dL (60-115)
[2022-02-02 16:56] LABS: Glucose, Whole Blood 203 mg/dL (60-115)
[2022-02-02 21:45] VITALS: BP 110/60; PULSE 94; TEMP 36.4; O2SAT 98
[2022-02-02] MEDS: HaloperidoL 5 MG TABLET PO (22:01)
[2022-02-02] MEDS: LORazepam 1 MG TABLET PO (22:01)
[2022-02-02] MEDS: traZODone HCL 50 MG TABLET PO (22:01)
--- NOTE | 2022-02-03 02:01 | PC.NURSE ---
OOB at 0130 to utilize [facility] facility. allowed for bladder scan. 331
[2022-02-03] MEDS: Acetaminophen 325 MG TABLET 650 MG PO (02:16)
[2022-02-03] MEDS: traZODone HCL 50 MG TABLET PO ×2 (02:17→22:05)
[2022-02-03 06:00] VITALS: BP 132/80; PULSE 82; RESP 18; TEMP 36.6; O2SAT 98
[2022-02-03 07:00] VITALS: BMI 29.3
[2022-02-03 08:26] LABS: Glucose, Whole Blood 122 mg/dL (60-115)
[2022-02-03] MEDS: Clopidogrel Bisulfate 75 MG TABLET PO (09:26)
[2022-02-03] MEDS: HaloperidoL 5 MG TABLET PO ×2 (09:26→22:05)
[2022-02-03] MEDS: Aspirin 81 MG TAB.CHEW PO (09:26)
[2022-02-03 12:16] LABS: Glucose, Whole Blood 257 mg/dL (60-115)
--- NOTE | 2022-02-03 13:59 | HO.PSYCHPN ---
Subjective Subjective Date of Service: 02/03/22 Reason For Visit: Paranoia Subjective Notes: Section 8 Interim History: Pt continues to present as paranoid towards staff here in hospital as well as neighbor at his apartment complex. He also continues to report that his land in [place] and is being stolen from him. Pt reports he knows staff is intentionally hurting pts. He is suspicious about his medical medications even thought prescribed in past by his OP providers including Retacrit for anemia s/s to CKD. Collateral information from [facility] who reports pt appears calmer but still very paranoid and suspicious. Daughter informed of switch to haldol as of last night. Medication Compliance: Yes Review of Systems Review of Systems In today's visit he is alert, pleasant and interactive within his means.? Speech is soft-spoken.? Moderate eye contact.? Affect is contained.? No overt aggressive behaviors or irritability.? Pt appears suspicious, paranoid, and makes vague threats of violence behavior. No known cognitive impairment. Judgment is marginally intact. Yes all other systems are reviewed and are negative and Unobtainable due to mental status Mental Status Exam Mental Status Exam Narrative: Appearance: casually groomed, fair hygiene in NAD Behavior:somewhat guarded psychomotor: no agitation or retardation noted Speech: clear, normal rate/rhythm/volume, spontaneous Thought process:tangential Thought content:paranoid delusions Mood: frustrated Affect: congruent SI:denies HI:denies VH/AH:denies Delusions:paranoid/grandiose delusions Insight/judgment:poor x 2. Memory/cog: alert, oriented x 3. t Diagnostics Vital Signs (24Hr): Vital Signs - 24 hr 02/03/22 20:45 02/04/22 08:49 Temperature 97.1 F 97.1 F Pulse Rate 89 86 Respiratory Rate 18 16 Blood Pressure 123/60 130/59 L Pulse Oximetry 98 99 Oxygen Delivery Method Room Air Room Air BMI result Body Mass Index 29.3 Labs Results: 02/01/22 17:04 02/01/22 17:04 Labs: Laboratory Results - last 48 hr 02/02/22 02/03/22 02/03/22 16:51 08:21 12:12 POC Glucose 203 H 122 H 257 H 02/03/22 02/04/22 02/04/22 17:30 08:59 12:35 POC Glucose 175 H 209 H 146 H Imaging Radiology Impressions: ITS Impressions Head CT 01/10/22 23:18 IMPRESSION: No acute intracranial pathology. Medications Medications Current Medications Acetaminophen (Acetaminophen 325 Mg Tablet) 650 mg PO Q6H PRN PRN Reason: Headache/Pain Mild Scale (1-3) Last Admin: 02/03/22 02:16 Dose: 650 mg Al Hydroxide/Mg Hydroxide (Magnesium Hydrox/Alum Hydrox 30 Ml Oral.Susp) 30 ml PO Q6H PRN PRN Reason: Heartburn/Nausea Last Admin: 01/28/22 14:14 Dose: 30 ml Aspirin (Aspirin 81 Mg Tab.Chew) 81 mg PO DAILY [facility] Last Admin: 02/04/22 08:29 Dose: 81 mg Benztropine Mesylate (Benztropine Mesylate 1 Mg Tablet) 1 mg PO BID PRN PRN Reason: Extrapyramidal Effects Clopidogrel Bisulfate (Clopidogrel Bisulfate 75 Mg Tablet) 75 mg PO DAILY [facility] Last Admin: 02/04/22 08:29 Dose: 75 mg Haloperidol (Haloperidol 5 Mg Tablet) 5 mg PO BID [facility] Last Admin: 02/04/22 08:29 Dose: 5 mg Haloperidol Lactate (Haloperidol Lactate 5 Mg/Ml Vial) 5 mg IM BID PRN PRN Reason: if pt refuses oral haldol Lorazepam (Lorazepam 1 Mg Tablet) 1 mg PO BEDTIME [facility] Last Admin: 02/03/22 22:05 Dose: 1 mg Magnesium Hydroxide (Milk Of Magnesia 30 Ml Oral.Susp) 30 ml PO DAILY PRN PRN Reason: Constipation Last Admin: 02/01/22 06:14 Dose: 30 ml Multi-Ingred Cream/Lotion/Oil/Oint (Mineral Oil/Petrolatum,White 106 Gm Tube) 1 appl TOPICAL BID [facility] Last Admin: 02/04/22 09:28 Dose: Not Given Pt Own (Trulicity 3 (Mg)) 3 mg SUBCUT Mo [facility] Last Admin: 01/31/22 17:21 Dose: 3 mg Trazodone HCl (Trazodone Hcl 50 Mg Tablet) 50 mg PO BEDTIME [facility] Last Admin: 02/03/22 22:05 Dose: 50 mg Allergies Allergies Allergy/AdvReac Type Severity Reaction Status Date / Time Sulfa (Sulfonamide Allergy Intermediate hives Verified 12/27/21 13:12 Antibiotics) [SULFA (SULFONAMIDE ANTIBIOTICS)] Assessment & Plan Assessment & Plan (1) Bipolar disorder with psychotic features: Status: Acute Code(s): F31.9 - Bipolar disorder, unspecified Plan Juan Jose is a 56 yold male who carries a dx of MDD recurrent, r/o schizoaffective disorder. He presented to [facility] ED on 01/10/2022 via section 12a for paranoid and A/VH. Per [facility] crisis, pt was paranoid, pacing during eval. He reportedly heard AH telling him to kill others, seeing cars following him. Reportedly pt has not been sleeping, pacing the hallways at night. Head CT showed no acute intracranial pathology. Utox positive for cannabis. Per chart review, pt has multiple co-morbid medical issues. No hx of previous psych IPLOC. No hx of antipsychotic or mood stabilizing medications. Pt was adherent with OP psych services up until 05/2021, was on wellbutrin XL and buspar up until 03/2021. Plan: Pt is not interested in medication management. Will speak with daughter to obtain collateral info. Pt is tangential and pressured, endorses AH but otherwise no behavioral issues observed, denies mood concerns. 01/13: Pt is refusing medication intervention, lacks insight into his pressured speech, agitation, and tangential thoughts. Again left VM for daughter to obtain collateral info. 01/14: Will start depakote ER 500 mg QHS for mood lability and apparent manic sx. Did not start atypical due to metabolic SE, as pt has hx of obesity and is now s/p gastric bypass. Pt does not have hx of itz per collateral contact, however will treat sx at this time. Head CT negative. Utox only positive for cannabis. 01/15: Pt refusing depakote ER 500 mg QHS 01/16: Pt refusing depakote ER 500 mg QHS, continues to present with manic sx of hyposomnia, disorganized thoughts, and agitation. Will add abilify 5 mg daily, as pt is endorsing paranoid delusional thought content during interview and per collateral contact. Consideration made to use atypical with low metabolic SE profile. Q15 min safety checks, CV Monitor response to medications. Monitor for safety in the milieu. Discharge on stabilization. Patient seen. Chart reviewed. Discussed with team. Obtain collateral contact info?as needed 01/17- pt informed of filing as pt continues paranoid, reporting CAH of hurting others. 01/18 continue current medications 01/19 continue current medications. committed to hospital, on section 8. Will start risperidone, back up Olanzapine IM if refuses oral. continue depakote. 01/21 Section 8- oral risperidone, back up Olanzapine IM. 01/22: Continue current regimen and plans 01/23: Continue current regimen and plans 01/24 continue current medications, will titrate risperidone as needed. 01/25 continue current medications. 01/26 continue current medications. 01/27 continue current medications. 01/28 continue current treatment. 01/29 Unclear why depakote d/c'd. Pt continues on risperdal, unclear benefit. per network admin, he continues to be derailed, makes vague threats of hitting others and wanting to break door down. 01/30 Pt presents as hostile, unfocused on treatment, suspicious and paranoid 01/31 Pt continues to present as paranoid and suspicious 02/01 increase risperidone to 3mg po BID, otherwise will consider switch to another antipsychotic. 02/02 continue current medications, will check ortho VS. 02/03 continue haldol 5mg po BID, pt retaining urine post void >350ml, declines to be cath. I spent minutes with the patient and/or on the patient floor today, greater than?50% of which was spent counseling/coordinating care. Reason for contiued inpatient stay Substantial Risk for: harm to others and inability to function
[2022-02-03 17:34] LABS: Glucose, Whole Blood 175 mg/dL (60-115)
[2022-02-03 20:45] VITALS: BP 123/60; PULSE 89; RESP 18; TEMP 36.2; O2SAT 98
[2022-02-03] MEDS: LORazepam 1 MG TABLET PO (22:05)
[2022-02-03] MEDS: Mineral Oil/Petrolatum,White 106 GM Tube 1 APPL TOPICAL (22:08)
--- NOTE | 2022-02-04 05:45 | PC.NURSE ---
Pt stated to this flex o writer operator that his provider supposedly told him he might discharge on Monday or Monday, and then made a reference to having his Trulicity brought to the hospital to be administered on Monday. TW explained to pt with assistance of [place]-speaking staff that his daughter was reportedly going to bring the Trulicity on Monday. Pt then proceeded to state that he was going to call his daughter and tell her not to bring the insulin in, because he believed that if his own medication was brought in to be administered while in the hospital that it would then result in him being here longer. TW attempted to explain to the pt that this would not be the case, and the reason for needing the insulin to be brought in is because the hospital pharmacy does not provide this medication. Pt shook his head in disbelief of TW, stating that he had been told differently. Pt then stated that if TW could guarantee that if his daughter did bring the insulin that he would still be discharged on one of these days, then he would allow her to do so. TW explained to pt that she could not guarantee this due to not having authority to discharge patients, however could assure pt that from prior experiences here this would not be a reason to keep a pt in the hospital longer. TW educated pt regarding the occasional need for patients to have medications brought in from home when the hospital pharmacy does not provide them, so that we may continue to properly care for and treat our patients. Pt stated that he would call his daughter and ask her to bring it in on Monday.
[2022-02-04] MEDS: Clopidogrel Bisulfate 75 MG TABLET PO (08:29)
[2022-02-04] MEDS: Aspirin 81 MG TAB.CHEW PO (08:29)
[2022-02-04] MEDS: HaloperidoL 5 MG TABLET PO ×2 (08:29→22:52)
[2022-02-04 08:49] VITALS: BP 130/59; PULSE 86; RESP 16; TEMP 36.2; O2SAT 99
[2022-02-04 09:03] LABS: Glucose, Whole Blood 209 mg/dL (60-115)
--- NOTE | 2022-02-04 12:17 | HO.PSYCHPN ---
Subjective Subjective Date of Service: 02/04/22 Reason For Visit: Paranoia Subjective Notes: Section 8 Interim History: Pt very paranoid, about staff, medical advise. He reports he does not need to be here in the hospital for psychiatric reasons and this is all a game, conspiracy to try to hurt him. PVR>400, explained to pt he needs to be straight cath to prevent complications to kidneys. Pt upset about this stating that he knows that what he needs is to drink more water. Pt threatening to clarissa this feature writer once discharge as he states we are keeping him when he has no mental illnes. Urology consult order. pt reports hx of BPH Medication Compliance: Yes Side effects from medications: No Review of Systems Review of Systems In today's visit he is alert, pleasant and interactive within his means.? Speech is soft-spoken.? Moderate eye contact.? Affect is contained.? No overt aggressive behaviors or irritability.? Pt appears suspicious, paranoid, and makes vague threats of violence behavior. No known cognitive impairment. Judgment is marginally intact. Yes all other systems are reviewed and are negative and Unobtainable due to mental status Mental Status Exam Mental Status Exam Narrative: Appearance: casually groomed, fair hygiene in NAD Behavior:somewhat guarded psychomotor: no agitation or retardation noted Speech: clear, normal rate/rhythm/volume, spontaneous Thought process:tangential Thought content:paranoid delusions Mood: frustrated Affect: congruent SI:denies HI:denies VH/AH:denies Delusions:paranoid/grandiose delusions Insight/judgment:poor x 2. Memory/cog: alert, oriented x 3. t Diagnostics Vital Signs (24Hr): Vital Signs - 24 hr 02/04/22 08:49 Temperature 97.1 F Pulse Rate 86 Respiratory Rate 16 Blood Pressure 130/59 L Pulse Oximetry 99 Oxygen Delivery Method Room Air BMI result Body Mass Index 29.3 Labs Results: 02/01/22 17:04 02/04/22 13:37 Labs: Laboratory Results - last 48 hr 02/03/22 02/03/22 02/03/22 08:21 12:12 17:30 Sodium Potassium Chloride Carbon Dioxide Anion Gap BUN Creatinine Estim Creat Clear Calc Estimated GFR POC Glucose 122 H 257 H 175 H Random Glucose Calcium Total Bilirubin AST ALT Alkaline Phosphatase Total Protein Albumin Urine Color Urine Appearance Urine pH Ur Specific [place] Urine Protein Urine Glucose (UA) Urine Ketones Urine Blood Urine Nitrite Ur Leukocyte Esterase Urine RBC Urine WBC Ur Squamous Epith Cells Urine Bacteria Hyaline Casts 02/04/22 02/04/22 02/04/22 08:59 12:35 13:37 Sodium 140 Potassium 5.0 Chloride 104 Carbon Dioxide 26 Anion Gap 15 BUN 29 H Creatinine 1.40 Estim Creat Clear Calc 59.4 Estimated GFR 52 POC Glucose 209 H 146 H Random Glucose 164 H Calcium 8.4 D Total Bilirubin 0.4 AST 31 ALT 46 H Alkaline Phosphatase 120 H Total Protein 6.6 Albumin 3.3 L Urine Color Urine Appearance Urine pH Ur Specific [place] Urine Protein Urine Glucose (UA) Urine Ketones Urine Blood Urine Nitrite Ur Leukocyte Esterase Urine RBC Urine WBC Ur Squamous Epith Cells Urine Bacteria Hyaline Casts 02/04/22 02/04/22 16:29 18:07 Sodium Potassium Chloride Carbon Dioxide Anion Gap BUN Creatinine Estim Creat Clear Calc Estimated GFR POC Glucose 99 Random Glucose Calcium Total Bilirubin AST ALT Alkaline Phosphatase Total Protein Albumin Urine Color Yellow Urine Appearance Clear Urine pH 6.5 Ur Specific [place] 1.015 Urine Protein 300 (3+) H Urine Glucose (UA) Negative Urine Ketones Negative Urine Blood Negative Urine Nitrite Negative Ur Leukocyte Esterase Negative Urine RBC 3-5 H Urine WBC 0-5 Ur Squamous Epith Cells 0-2 Urine Bacteria None Seen Hyaline Casts 0-2 Imaging Radiology Impressions: ITS Impressions Head CT 01/10/22 23:18 IMPRESSION: No acute intracranial pathology. Medications Medications Current Medications Acetaminophen (Acetaminophen 325 Mg Tablet) 650 mg PO Q6H PRN PRN Reason: Headache/Pain Mild Scale (1-3) Last Admin: 02/03/22 02:16 Dose: 650 mg Al Hydroxide/Mg Hydroxide (Magnesium Hydrox/Alum Hydrox 30 Ml Oral.Susp) 30 ml PO Q6H PRN PRN Reason: Heartburn/Nausea Last Admin: 01/28/22 14:14 Dose: 30 ml Aspirin (Aspirin 81 Mg Tab.Chew) 81 mg PO DAILY [facility] Last Admin: 02/04/22 08:29 Dose: 81 mg Benztropine Mesylate (Benztropine Mesylate 1 Mg Tablet) 1 mg PO BID PRN PRN Reason: Extrapyramidal Effects Clopidogrel Bisulfate (Clopidogrel Bisulfate 75 Mg Tablet) 75 mg PO DAILY [facility] Last Admin: 02/04/22 08:29 Dose: 75 mg Haloperidol (Haloperidol 5 Mg Tablet) 5 mg PO BID [facility] Last Admin: 02/04/22 08:29 Dose: 5 mg Haloperidol Lactate (Haloperidol Lactate 5 Mg/Ml Vial) 5 mg IM BID PRN PRN Reason: if pt refuses oral haldol Lorazepam (Lorazepam 1 Mg Tablet) 1 mg PO BEDTIME [facility] Last Admin: 02/03/22 22:05 Dose: 1 mg Magnesium Hydroxide (Milk Of Magnesia 30 Ml Oral.Susp) 30 ml PO DAILY PRN PRN Reason: Constipation Last Admin: 02/01/22 06:14 Dose: 30 ml Multi-Ingred Cream/Lotion/Oil/Oint (Mineral Oil/Petrolatum,White 106 Gm Tube) 1 appl TOPICAL BID [facility] Last Admin: 02/04/22 09:28 Dose: Not Given Pt Own (Trulicity 3 (Mg)) 3 mg SUBCUT Mo [facility] Last Admin: 01/31/22 17:21 Dose: 3 mg Trazodone HCl (Trazodone Hcl 50 Mg Tablet) 50 mg PO BEDTIME [facility] Last Admin: 02/03/22 22:05 Dose: 50 mg Allergies Allergies Allergy/AdvReac Type Severity Reaction Status Date / Time Sulfa (Sulfonamide Allergy Intermediate hives Verified 12/27/21 13:12 Antibiotics) [SULFA (SULFONAMIDE ANTIBIOTICS)] Assessment & Plan Assessment & Plan (1) Bipolar disorder with psychotic features: Status: Acute Code(s): F31.9 - Bipolar disorder, unspecified Plan Juan Jose is a 56 yold male who carries a dx of MDD recurrent, r/o schizoaffective disorder. He presented to [facility] ED on 01/10/2022 via section 12a for paranoid and A/VH. Per [facility] crisis, pt was paranoid, pacing during eval. He reportedly heard AH telling him to kill others, seeing cars following him. Reportedly pt has not been sleeping, pacing the hallways at night. Head CT showed no acute intracranial pathology. Utox positive for cannabis. Per chart review, pt has multiple co-morbid medical issues. No hx of previous psych IPLOC. No hx of antipsychotic or mood stabilizing medications. Pt was adherent with OP psych services up until 05/2021, was on wellbutrin XL and buspar up until 03/2021. Plan: Pt is not interested in medication management. Will speak with daughter to obtain collateral info. Pt is tangential and pressured, endorses AH but otherwise no behavioral issues observed, denies mood concerns. 01/13: Pt is refusing medication intervention, lacks insight into his pressured speech, agitation, and tangential thoughts. Again left VM for daughter to obtain collateral info. 01/14: Will start depakote ER 500 mg QHS for mood lability and apparent manic sx. Did not start atypical due to metabolic SE, as pt has hx of obesity and is now s/p gastric bypass. Pt does not have hx of itz per collateral contact, however will treat sx at this time. Head CT negative. Utox only positive for cannabis. 01/15: Pt refusing depakote ER 500 mg QHS 01/16: Pt refusing depakote ER 500 mg QHS, continues to present with manic sx of hyposomnia, disorganized thoughts, and agitation. Will add abilify 5 mg daily, as pt is endorsing paranoid delusional thought content during interview and per collateral contact. Consideration made to use atypical with low metabolic SE profile. Q15 min safety checks, CV Monitor response to medications. Monitor for safety in the milieu. Discharge on stabilization. Patient seen. Chart reviewed. Discussed with team. Obtain collateral contact info?as needed 01/17- pt informed of filing as pt continues paranoid, reporting CAH of hurting others. 01/18 continue current medications 01/19 continue current medications. committed to hospital, on section 8. Will start risperidone, back up Olanzapine IM if refuses oral. continue depakote. 01/21 Section 8- oral risperidone, back up Olanzapine IM. 01/22: Continue current regimen and plans 01/23: Continue current regimen and plans 01/24 continue current medications, will titrate risperidone as needed. 01/25 continue current medications. 01/26 continue current medications. 01/27 continue current medications. 01/28 continue current treatment. 01/29 Unclear why depakote d/c'd. Pt continues on risperdal, unclear benefit. per freelance interpreter/translator, he continues to be derailed, makes vague threats of hitting others and wanting to break door down. 01/30 Pt presents as hostile, unfocused on treatment, suspicious and paranoid 01/31 Pt continues to present as paranoid and suspicious 02/01 increase risperidone to 3mg po BID, otherwise will consider switch to another antipsychotic. 02/02 continue current medications, will check ortho VS. 02/03 continue haldol 5mg po BID, pt retaining urine post void >350ml, declines to be cath. 02/04 continue current medication, bladder scan post void, straight cath, urology consult ordered, it seems pt with hx of BPH. I spent minutes with the patient and/or on the patient floor today, greater than?50% of which was spent counseling/coordinating care. Reason for contiued inpatient stay Substantial Risk for: harm to others and inability to function
[2022-02-04 12:39] LABS: Glucose, Whole Blood 146 mg/dL (60-115)
--- NOTE | 2022-02-04 13:26 | PC.NURSE ---
Patient bladder scanned post void. 4 Scans performed 404 ml's, 404 ml's, 702 ml's, 707 ml's. Shantelle Hart notified.
--- NOTE | 2022-02-04 13:35 | PC.NURSE ---
Patient voided and bladder scan completed. 414 ml's on bladder scan. Shantelle anders DRAIN TILE PRESS OPERATOR notified.
[2022-02-04 14:10] LABS: Alanine Aminotransferase 46 U/L (0-40); Albumin Level 3.3 g/dL (3.5-5.0); Alkaline Phosphatase 120 U/L (39-117); Anion Gap 15 (12-20); Aspartate Amino Transferase 31 U/L (5-37); Bilirubin Total 0.4 mg/dL (0.0-1.0); Blood Urea Nitrogen 29 mg/dL (9-16); Calcium 8.4 mg/dL (8.4-10.2); Carbon Dioxide 26 mmol/L (22-29); Chloride 104 mmol/L (96-108); Creatinine Clr Calc Pharmacy 59.4; Estimated Glomerular Filt Rate 52; Glucose Random 164 mg/dL (60-115); Sodium 140 mmol/L (135-145); Total Protein 6.6 g/dL (6.5-8.0)
[2022-02-04] MEDS: LORazepam 1 MG TABLET 2 MG PO (15:29)
[2022-02-04 16:47] LABS: Appearance Urine Clear; Color Urine Yellow; Glucose Urine UA Negative (Negative); Leukocyte Esterase Urine Negative (Negative); Nitrite Urine Negative (Negative); PH 6.5 (5.0-9.0); Specific Gravity - Urine 1.015 (1.005-1.025); Urine Blood Negative (Negative); Urine Ketones Negative (Negative); Urine Protein 300 (3+) mg/dL (Neg-Trace)
[2022-02-04 16:50] LABS: Bacteria Urine None Seen (None Seen); Hyaline Casts Urine 0-2 /LPF (0-2); Squamous Epithelial Cell Urine 0-2 /HPF (0-2); WBC Urine 0-5 /HPF (0-5)
[2022-02-04 18:11] LABS: Glucose, Whole Blood 99 mg/dL (60-115)
--- NOTE | 2022-02-04 18:18 | PC.NURSE ---
Approximately 1420 patient was catheterized via a straight catheter. Sterile field was maintained throughout procedure. Patient tolerated well. UA sample sent to lab. 460 ml's of urine was removed. Urine was clear, yellow, and no odor.
[2022-02-04 20:30] VITALS: BP 100/55; PULSE 94; RESP 18; TEMP 36.6; O2SAT 99
[2022-02-04] MEDS: traZODone HCL 50 MG TABLET PO (22:52)
[2022-02-04] MEDS: LORazepam 1 MG TABLET PO (22:52)
[2022-02-05] MEDS: traZODone HCL 50 MG TABLET PO ×2 (01:45→21:16)
[2022-02-05 06:00] VITALS: BP 119/60; PULSE 64; RESP 18; TEMP 36.7; O2SAT 99
[2022-02-05 09:25] LABS: Glucose, Whole Blood 111 mg/dL (60-115)
[2022-02-05] MEDS: Clopidogrel Bisulfate 75 MG TABLET PO (09:40)
[2022-02-05] MEDS: Aspirin 81 MG TAB.CHEW PO (09:40)
[2022-02-05] MEDS: Mineral Oil/Petrolatum,White 106 GM Tube 1 APPL TOPICAL (09:40)
[2022-02-05] MEDS: HaloperidoL 5 MG TABLET PO ×2 (09:40→21:16)
[2022-02-05 11:52] LABS: Glucose, Whole Blood 137 mg/dL (60-115)
--- NOTE | 2022-02-05 14:06 | P.PNPSI_ITS ---
Subjective Subjective Date of Service: 02/05/22 Reason For Visit: Paranoia Subjective Notes: Section 8 Interim History: Patient depressed withdrawn stating he does not need to be in the hospital required catheterization the other night denies current difficulty states he has had no psychiatric history denies hallucinations or any irrational thoughts Mental Status Exam Mental Status Exam Patient Appearance: Appropriate Level of Consciousness: Awake Patient Behavior: Suspicious Mood Description: Blunted and Apprehensive Affect Description: Angry Delusions: Paranoid Ideation Thought Process: Rumination Judgement and Insight: Patient states he is fine does not have any psychiatric illness that he was being conspired against Diagnostics Vital Signs (24Hr): Vital Signs - 24 hr 02/04/22 20:30 02/05/22 06:00 Temperature 97.9 F 98.0 F Pulse Rate 94 64 Respiratory Rate 18 18 Blood Pressure 100/55 L 119/60 Pulse Oximetry 99 99 Oxygen Delivery Method Room Air Room Air BMI result Body Mass Index 29.3 Labs Results: 02/01/22 17:04 02/04/22 13:37 Labs: Laboratory Results - last 48 hr 02/03/22 02/04/22 02/04/22 17:30 08:59 12:35 Sodium Potassium Chloride Carbon Dioxide Anion Gap BUN Creatinine Estim Creat Clear Calc Estimated GFR POC Glucose 175 H 209 H 146 H Random Glucose Calcium Total Bilirubin AST ALT Alkaline Phosphatase Total Protein Albumin Urine Color Urine Appearance Urine pH Ur Specific [place] Urine Protein Urine Glucose (UA) Urine Ketones Urine Blood Urine Nitrite Ur Leukocyte Esterase Urine RBC Urine WBC Ur Squamous Epith Cells Urine Bacteria Hyaline Casts 02/04/22 02/04/22 02/04/22 13:37 16:29 18:07 Sodium 140 Potassium 5.0 Chloride 104 Carbon Dioxide 26 Anion Gap 15 BUN 29 H Creatinine 1.40 Estim Creat Clear Calc 59.4 Estimated GFR 52 POC Glucose 99 Random Glucose 164 H Calcium 8.4 D Total Bilirubin 0.4 AST 31 ALT 46 H Alkaline Phosphatase 120 H Total Protein 6.6 Albumin 3.3 L Urine Color Yellow Urine Appearance Clear Urine pH 6.5 Ur Specific [place] 1.015 Urine Protein 300 (3+) H Urine Glucose (UA) Negative Urine Ketones Negative Urine Blood Negative Urine Nitrite Negative Ur Leukocyte Esterase Negative Urine RBC 3-5 H Urine WBC 0-5 Ur Squamous Epith Cells 0-2 Urine Bacteria None Seen Hyaline Casts 0-2 02/05/22 02/05/22 09:21 11:48 Sodium Potassium Chloride Carbon Dioxide Anion Gap BUN Creatinine Estim Creat Clear Calc Estimated GFR POC Glucose 111 137 H Random Glucose Calcium Total Bilirubin AST ALT Alkaline Phosphatase Total Protein Albumin Urine Color Urine Appearance Urine pH Ur Specific [place] Urine Protein Urine Glucose (UA) Urine Ketones Urine Blood Urine Nitrite Ur Leukocyte Esterase Urine RBC Urine WBC Ur Squamous Epith Cells Urine Bacteria Hyaline Casts Imaging Radiology Impressions: ITS Impressions Head CT 01/10/22 23:18 IMPRESSION: No acute intracranial pathology. Medications Medications Current Medications Acetaminophen (Acetaminophen 325 Mg Tablet) 650 mg PO Q6H PRN PRN Reason: Headache/Pain Mild Scale (1-3) Last Admin: 02/03/22 02:16 Dose: 650 mg Al Hydroxide/Mg Hydroxide (Magnesium Hydrox/Alum Hydrox 30 Ml Oral.Susp) 30 ml PO Q6H PRN PRN Reason: Heartburn/Nausea Last Admin: 01/28/22 14:14 Dose: 30 ml Aspirin (Aspirin 81 Mg Tab.Chew) 81 mg PO DAILY [facility] Last Admin: 02/05/22 09:40 Dose: 81 mg Benztropine Mesylate (Benztropine Mesylate 1 Mg Tablet) 1 mg PO BID PRN PRN Reason: Extrapyramidal Effects Clopidogrel Bisulfate (Clopidogrel Bisulfate 75 Mg Tablet) 75 mg PO DAILY [facility] Last Admin: 02/05/22 09:40 Dose: 75 mg Haloperidol (Haloperidol 5 Mg Tablet) 5 mg PO BID [facility] Last Admin: 02/05/22 09:40 Dose: 5 mg Haloperidol Lactate (Haloperidol Lactate 5 Mg/Ml Vial) 5 mg IM BID PRN PRN Reason: if pt refuses oral haldol Lorazepam (Lorazepam 1 Mg Tablet) 1 mg PO BEDTIME [facility] Last Admin: 02/04/22 22:52 Dose: 1 mg Magnesium Hydroxide (Milk Of Magnesia 30 Ml Oral.Susp) 30 ml PO DAILY PRN PRN Reason: Constipation Last Admin: 02/01/22 06:14 Dose: 30 ml Multi-Ingred Cream/Lotion/Oil/Oint (Mineral Oil/Petrolatum,White 106 Gm Tube) 1 appl TOPICAL BID [facility] Last Admin: 02/05/22 09:40 Dose: 1 appl Pt Own (Trulicity 3 (Mg)) 3 mg SUBCUT Mo [facility] Last Admin: 01/31/22 17:21 Dose: 3 mg Trazodone HCl (Trazodone Hcl 50 Mg Tablet) 50 mg PO BEDTIME [facility] Last Admin: 02/05/22 01:45 Dose: 50 mg Allergies Allergies Allergy/AdvReac Type Severity Reaction Status Date / Time Sulfa (Sulfonamide Allergy Intermediate hives Verified 12/27/21 13:12 Antibiotics) [SULFA (SULFONAMIDE ANTIBIOTICS)] Assessment & Plan Assessment & Plan (1) Bipolar disorder with psychotic features: Status: Acute Code(s): F31.9 - Bipolar disorder, unspecified Plan Juan Jose is a 56 yold male who carries a dx of MDD recurrent, r/o schizoaffective disorder. He presented [place] [facility] on 01/10/2022 via section 12a for paranoid and A/VH. Per [facility] crisis, pt was paranoid, pacing during eval. He reportedly heard AH telling him to kill others, seeing cars following him. Reportedly pt has not been sleeping, pacing the hallways at night. Head CT showed no acute intracranial pathology. Utox positive for cannabis. Per chart review, pt has multiple co-morbid medical issues. No hx of previous psych IPLOC. No hx of antipsychotic or mood stabilizing medications. Pt was adherent with OP psych services up until 05/2021, was on wellbutrin XL and buspar up until 03/2021. Plan: Pt is not interested in medication management. Will speak with daughter to obtain collateral info. Pt is tangential and pressured, endorses AH but otherwise no behavioral issues observed, denies mood concerns. 01/13: Pt is refusing medication intervention, lacks insight into his pressured speech, agitation, and tangential thoughts. Again left VM for daughter to obtain collateral info. 01/14: Will start depakote ER 500 mg QHS for mood lability and apparent manic sx. Did not start atypical due to metabolic SE, as pt has hx of obesity and is now s/p gastric bypass. Pt does not have hx of itz per collateral contact, however will treat sx at this time. Head CT negative. Utox only positive for cannabis. 01/15: Pt refusing depakote ER 500 mg QHS 01/16: Pt refusing depakote ER 500 mg QHS, continues to present with manic sx of hyposomnia, disorganized thoughts, and agitation. Will add abilify 5 mg daily, as pt is endorsing paranoid delusional thought content during interview and per collateral contact. Consideration made to use atypical with low metabolic SE profile. Q15 min safety checks, CV Monitor response to medications. Monitor for safety in the milieu. Discharge on stabilization. Patient seen. Chart reviewed. Discussed with team. Obtain collateral contact info?as needed 01/17- pt informed of filing as pt continues paranoid, reporting CAH of hurting others. 01/18 continue current medications 01/19 continue current medications. committed to hospital, on section 8. Will start risperidone, back up Olanzapine IM if refuses oral. continue depakote. 01/21 Section 8- oral risperidone, back up Olanzapine IM. 01/22: Continue current regimen and plans 01/23: Continue current regimen and plans 01/24 continue current medications, will titrate risperidone as needed. 01/25 continue current medications. 01/26 continue current medications. 01/27 continue current medications. 01/28 continue current treatment. 01/29 Unclear why depakote d/c'd. Pt continues on risperdal, unclear benefit. per asl interpreter, he continues to be derailed, makes vague threats of hitting others and wanting to break door down. 01/30 Pt presents as hostile, unfocused on treatment, suspicious and paranoid 01/31 Pt continues to present as paranoid and suspicious 02/01 increase risperidone to 3mg po BID, otherwise will consider switch to another antipsychotic. 02/02 continue current medications, will check ortho VS. 02/03 continue haldol 5mg po BID, pt retaining urine post void >350ml, declines to be cath. 02/04 continue current medication, bladder scan post void, straight cath, urology consult ordered, it seems pt with hx of BPH. 02/05/2022 Continue plan of care bladder scan straight cath as needed urology consult pending. Patient denies any history of prostate issues he bladder or urination difficulties I spent minutes with the patient and/or on the patient floor today, greater than?50% of which was spent counseling/coordinating care. Patient educated on: diagnosis and medical condition Reason for contiued inpatient stay Substantial Risk for: inability to function and rapid decompensation
[2022-02-05 18:21] LABS: Glucose, Whole Blood 165 mg/dL (60-115)
[2022-02-05 20:30] VITALS: BP 122/62; PULSE 80; RESP 16; TEMP 36.7; O2SAT 99
[2022-02-05] MEDS: LORazepam 1 MG TABLET PO (21:16)
[2022-02-06 09:09] LABS: Glucose, Whole Blood 105 mg/dL (60-115)
[2022-02-06 09:30] VITALS: BP 113/60; PULSE 81; RESP 16; TEMP 36.3; O2SAT 96
[2022-02-06] MEDS: Aspirin 81 MG TAB.CHEW PO (09:41)
[2022-02-06] MEDS: HaloperidoL 5 MG TABLET PO ×2 (09:41→20:43)
[2022-02-06] MEDS: Clopidogrel Bisulfate 75 MG TABLET PO (09:41)
[2022-02-06 13:30] LABS: Glucose, Whole Blood 119 mg/dL (60-115)
--- NOTE | 2022-02-06 13:49 | HO.PSYCHPN ---
Subjective Subjective Date of Service: 02/06/22 Reason For Visit: Paranoia Interim History: Patient seen with aid of treasury associate. Patient has not required catheterization seems calmer less agitated and irritable has been refusing bladder scan Medication Compliance: Yes Mental Status Exam Mental Status Exam Patient Appearance: Appropriate Level of Consciousness: Awake Patient Behavior: Suspicious Mood Description: Blunted and Apprehensive Affect Description: Angry Delusions: Paranoid Ideation Thought Process: Rumination Judgement and Insight: Patient patient with lucas affect calmer less irritable states he is feeling okay on current medication Diagnostics Vital Signs (24Hr): Vital Signs - 24 hr 02/06/22 09:30 02/06/22 20:15 Temperature 97.3 F 98.1 F Pulse Rate 81 91 Respiratory Rate 16 18 Blood Pressure 113/60 168/68 H Pulse Oximetry 96 981 H Oxygen Delivery Method Room Air Room Air BMI result Body Mass Index 29.3 Labs Results: 02/01/22 17:04 02/04/22 13:37 Labs: Laboratory Results - last 48 hr 02/05/22 02/05/22 02/05/22 09:21 11:48 18:16 POC Glucose 111 137 H 165 H 02/06/22 02/06/22 02/06/22 09:01 13:27 17:55 POC Glucose 105 119 H 182 H Imaging Radiology Impressions: ITS Impressions Head CT 01/10/22 23:18 IMPRESSION: No acute intracranial pathology. Medications Medications Current Medications Acetaminophen (Acetaminophen 325 Mg Tablet) 650 mg PO Q6H PRN PRN Reason: Headache/Pain Mild Scale (1-3) Last Admin: 02/06/22 16:13 Dose: 650 mg Al Hydroxide/Mg Hydroxide (Magnesium Hydrox/Alum Hydrox 30 Ml Oral.Susp) 30 ml PO Q6H PRN PRN Reason: Heartburn/Nausea Last Admin: 01/28/22 14:14 Dose: 30 ml Aspirin (Aspirin 81 Mg Tab.Chew) 81 mg PO DAILY [facility] Last Admin: 02/06/22 09:41 Dose: 81 mg Benztropine Mesylate (Benztropine Mesylate 1 Mg Tablet) 1 mg PO BID PRN PRN Reason: Extrapyramidal Effects Clopidogrel Bisulfate (Clopidogrel Bisulfate 75 Mg Tablet) 75 mg PO DAILY [facility] Last Admin: 02/06/22 09:41 Dose: 75 mg Haloperidol (Haloperidol 5 Mg Tablet) 5 mg PO BID [facility] Last Admin: 02/06/22 20:43 Dose: 5 mg Haloperidol Lactate (Haloperidol Lactate 5 Mg/Ml Vial) 5 mg IM BID PRN PRN Reason: if pt refuses oral haldol Lorazepam (Lorazepam 1 Mg Tablet) 1 mg PO BEDTIME [facility] Last Admin: 02/06/22 20:43 Dose: 1 mg Magnesium Hydroxide (Milk Of Magnesia 30 Ml Oral.Susp) 30 ml PO DAILY PRN PRN Reason: Constipation Last Admin: 02/01/22 06:14 Dose: 30 ml Multi-Ingred Cream/Lotion/Oil/Oint (Mineral Oil/Petrolatum,White 106 Gm Tube) 1 appl TOPICAL BID [facility] Last Admin: 02/06/22 20:50 Dose: Not Given Pt Own (Trulicity 3 (Mg)) 3 mg SUBCUT Mo [facility] Last Admin: 01/31/22 17:21 Dose: 3 mg Trazodone HCl (Trazodone Hcl 50 Mg Tablet) 50 mg PO BEDTIME [facility] Last Admin: 02/06/22 20:43 Dose: 50 mg Allergies Allergies Allergy/AdvReac Type Severity Reaction Status Date / Time Sulfa (Sulfonamide Allergy Intermediate hives Verified 12/27/21 13:12 Antibiotics) [SULFA (SULFONAMIDE ANTIBIOTICS)] Assessment & Plan Assessment & Plan (1) Bipolar disorder with psychotic features: Status: Acute Code(s): F31.9 - Bipolar disorder, unspecified Plan Juan Jose is a 56 yold male who carries a dx of MDD recurrent, r/o schizoaffective disorder. He [place] [facility] [place] 01[place]10/[place]22 via section 12a for paranoid and A/VH. Per [facility] crisis, pt was paranoid, pacing during eval. He reportedly heard AH telling him to kill others, seeing cars following him. Reportedly pt has not been sleeping, pacing the hallways at night. Head CT showed no acute intracranial pathology. Utox positive for cannabis. Per chart review, pt has multiple co-morbid medical issues. No hx of previous psych IPLOC. No hx of antipsychotic or mood stabilizing medications. Pt was adherent with OP psych services up until 05/2021, was on wellbutrin XL and buspar up until 03/2021. Plan: Pt is not interested in medication management. Will speak with daughter to obtain collateral info. Pt is tangential and pressured, endorses AH but otherwise no behavioral issues observed, denies mood concerns. 01/13: Pt is refusing medication intervention, lacks insight into his pressured speech, agitation, and tangential thoughts. Again left VM for daughter to obtain collateral info. 01/14: Will start depakote ER 500 mg QHS for mood lability and apparent manic sx. Did not start atypical due to metabolic SE, as pt has hx of obesity and is now s/p gastric bypass. Pt does not have hx of itz per collateral contact, however will treat sx at this time. Head CT negative. Utox only positive for cannabis. 01/15: Pt refusing depakote ER 500 mg QHS 01/16: Pt refusing depakote ER 500 mg QHS, continues to present with manic sx of hyposomnia, disorganized thoughts, and agitation. Will add abilify 5 mg daily, as pt is endorsing paranoid delusional thought content during interview and per collateral contact. Consideration made to use atypical with low metabolic SE profile. Q15 min safety checks, CV Monitor response to medications. Monitor for safety in the milieu. Discharge on stabilization. Patient seen. Chart reviewed. Discussed with team. Obtain collateral contact info?as needed 01/17- pt informed of filing as pt continues paranoid, reporting CAH of hurting others. 01/18 continue current medications 01/19 continue current medications. committed to hospital, on section 8. Will start risperidone, back up Olanzapine IM if refuses oral. continue depakote. 01/21 Section 8- oral risperidone, back up Olanzapine IM. 01/22: Continue current regimen and plans 01/23: Continue current regimen and plans 01/24 continue current medications, will titrate risperidone as needed. 01/25 continue current medications. 01/26 continue current medications. 01/27 continue current medications. 01/28 continue current treatment. 01/29 Unclear why depakote d/c'd. Pt continues on risperdal, unclear benefit. per treasury associate, he continues to be derailed, makes vague threats of hitting others and wanting to break door down. 01/30 Pt presents as hostile, unfocused on treatment, suspicious and paranoid 01/31 Pt continues to present as paranoid and suspicious 02/01 increase risperidone to 3mg po BID, otherwise will consider switch to another antipsychotic. 02/02 continue current medications, will check ortho VS. 02/03 continue haldol 5mg po BID, pt retaining urine post void >350ml, declines to be cath. 02/04 continue current medication, bladder scan post void, straight cath, urology consult ordered, it seems pt with hx of BPH. 02/06/22 Continue Haldol trial urology consult check PSA monitor for adverse effects from Haldol I spent minutes with the patient and/or on the patient floor today, greater than?50% of which was spent counseling/coordinating care. Reason for contiued inpatient stay Substantial Risk for: inability to function and rapid decompensation
[2022-02-06] MEDS: Acetaminophen 325 MG TABLET 650 MG PO (16:13)
[2022-02-06 17:58] LABS: Glucose, Whole Blood 182 mg/dL (60-115)
[2022-02-06 20:15] VITALS: BP 168/68; PULSE 91; RESP 18; TEMP 36.7; O2SAT 981
[2022-02-06] MEDS: traZODone HCL 50 MG TABLET PO (20:43)
[2022-02-06] MEDS: LORazepam 1 MG TABLET PO (20:43)
[2022-02-07 08:27] VITALS: BP 128/62; PULSE 78; RESP 17; TEMP 36.4; O2SAT 99
[2022-02-07] MEDS: Clopidogrel Bisulfate 75 MG TABLET PO (08:28)
[2022-02-07] MEDS: Aspirin 81 MG TAB.CHEW PO (08:28)
[2022-02-07] MEDS: HaloperidoL 5 MG TABLET PO ×2 (08:28→20:56)
[2022-02-07 09:26] LABS: Glucose, Whole Blood 120 mg/dL (60-115)
--- NOTE | 2022-02-07 12:23 | PC.NURSE ---
Late entry ~10:00- post void bladder scan completed - 627 cc noted. Pt denied pain and declined to have straight cath. RN aware.
--- NOTE | 2022-02-07 12:31 | HO.PSYCHPN ---
Subjective Subjective Date of Service: 02/07/22 Reason For Visit: Paranoia Subjective Notes: Conditional Voluntary Interim History: Pt presents slightly calmer. He has been more appropriately asking for medical care and resuming such care. Whereas before he was reporting that he was invincible and didn't need any medications. Some grandiose delusions of having millions of dollars, less paranoid towards people at his building, less threatening and less agitated. limited insight as to why people were concerned about him and way he was behaving to required inpatient admission. Medication Compliance: Yes Side effects from medications: No Attending Groups: Intermittent Review of Systems Review of Systems In today's visit he is alert, pleasant and interactive within his means.? Speech is soft-spoken.? Moderate eye contact.? Affect is contained.? No overt aggressive behaviors or irritability.? Pt appears suspicious, paranoid, and makes vague threats of violence behavior. No known cognitive impairment. Judgment is marginally intact. Yes all other systems are reviewed and are negative and Unobtainable due to mental status Mental Status Exam Mental Status Exam Narrative: Appearance: casually groomed, fair hygiene in NAD Behavior:somewhat guarded psychomotor: no agitation or retardation noted Speech: clear, normal rate/rhythm/volume, spontaneous Thought process:tangential Thought content:paranoid delusions Mood: frustrated Affect: congruent SI:denies HI:denies VH/AH:denies Delusions:paranoid/grandiose delusions Insight/judgment:poor x 2. Memory/cog: alert, oriented x 3. t Diagnostics Vital Signs (24Hr): Vital Signs - 24 hr 02/07/22 20:50 02/08/22 08:34 Temperature 98.5 F 97.2 F Pulse Rate 89 87 Respiratory Rate 16 16 Blood Pressure 144/76 H 134/63 Pulse Oximetry 97 98 Oxygen Delivery Method Room Air Room Air BMI result Body Mass Index 29.3 Labs Results: 02/01/22 17:04 02/04/22 13:37 Labs: Laboratory Results - last 48 hr 02/06/22 02/06/22 02/07/22 13:27 17:55 09:21 POC Glucose 119 H 182 H 120 H 02/07/22 02/07/22 02/08/22 13:23 17:33 08:28 POC Glucose 137 H 127 H 208 H Imaging Radiology Impressions: ITS Impressions Head CT 01/10/22 23:18 IMPRESSION: No acute intracranial pathology. Chest X-Ray 02/07/22 21:43 IMPRESSION: No active cardiopulmonary disease. Elbow X-Ray 02/07/22 21:43 IMPRESSION: 1. No fracture or dislocation is seen. 2. There is mild osteoarthritic change of the right glenohumeral joint. 3. Findings suggest right rotator cuff impingement. There is no maddie calcific tendinitis. EXAMINATION: XR ELBOW, RIGHT CLINICAL INFORMATION: Severe pain status-post fall. COMPARISON: None TECHNIQUE: AP, lateral, and oblique views of the right elbow. FINDINGS: Bony alignment and mineralization are normal. No fracture or joint effusion. Alignment is anatomic. Joint spaces are well-maintained. The soft tissue planes are unremarkable. Dermal lesions are noted of the lateral upper arm and the medial forearm. IMPRESSION: Unremarkable right elbow. Shoulder X-Ray 02/07/22 21:43 IMPRESSION: 1. No fracture or dislocation is seen. 2. There is mild osteoarthritic change of the right glenohumeral joint. 3. Findings suggest right rotator cuff impingement. There is no maddie calcific tendinitis. EXAMINATION: XR ELBOW, RIGHT CLINICAL INFORMATION: Severe pain status-post fall. COMPARISON: None TECHNIQUE: AP, lateral, and oblique views of the right elbow. FINDINGS: Bony alignment and mineralization are normal. No fracture or joint effusion. Alignment is anatomic. Joint spaces are well-maintained. The soft tissue planes are unremarkable. Dermal lesions are noted of the lateral upper arm and the medial forearm. IMPRESSION: Unremarkable right elbow. Medications Medications Current Medications Acetaminophen (Acetaminophen 325 Mg Tablet) 650 mg PO Q6H PRN PRN Reason: Headache/Pain Mild Scale (1-3) Last Admin: 02/08/22 05:35 Dose: 650 mg Al Hydroxide/Mg Hydroxide (Magnesium Hydrox/Alum Hydrox 30 Ml Oral.Susp) 30 ml PO Q6H PRN PRN Reason: Heartburn/Nausea Last Admin: 01/28/22 14:14 Dose: 30 ml Aspirin (Aspirin 81 Mg Tab.Chew) 81 mg PO DAILY [facility] Last Admin: 02/08/22 08:32 Dose: 81 mg Benztropine Mesylate (Benztropine Mesylate 1 Mg Tablet) 1 mg PO BID PRN PRN Reason: Extrapyramidal Effects Clopidogrel Bisulfate (Clopidogrel Bisulfate 75 Mg Tablet) 75 mg PO DAILY [facility] Last Admin: 02/08/22 08:32 Dose: 75 mg Doxazosin Mesylate (Doxazosin Mesylate 2 Mg Tablet) 8 mg PO BEDTIME [facility]; Protocol Last Admin: 02/07/22 20:55 Dose: 8 mg Finasteride (Finasteride 5 Mg Tablet) 5 mg PO DAILY [facility] Last Admin: 02/08/22 08:32 Dose: 5 mg Haloperidol (Haloperidol 5 Mg Tablet) 5 mg PO BID [facility] Last Admin: 02/08/22 08:32 Dose: 5 mg Haloperidol Lactate (Haloperidol Lactate 5 Mg/Ml Vial) 5 mg IM BID PRN PRN Reason: if pt refuses oral haldol Magnesium Hydroxide (Milk Of Magnesia 30 Ml Oral.Susp) 30 ml PO DAILY PRN PRN Reason: Constipation Last Admin: 02/01/22 06:14 Dose: 30 ml Multi-Ingred Cream/Lotion/Oil/Oint (Mineral Oil/Petrolatum,White 106 Gm Tube) 1 appl TOPICAL BID [facility] Last Admin: 02/08/22 08:34 Dose: Not Given Pt Own (Trulicity 3 (Mg)) 3 mg SUBCUT Mo [facility] Last Admin: 02/07/22 14:07 Dose: 3 mg Trazodone HCl (Trazodone Hcl 50 Mg Tablet) 50 mg PO BEDTIME [facility] Last Admin: 02/07/22 20:56 Dose: 50 mg Allergies Allergies Allergy/AdvReac Type Severity Reaction Status Date / Time Sulfa (Sulfonamide Allergy Intermediate hives Verified 12/27/21 13:12 Antibiotics) [SULFA (SULFONAMIDE ANTIBIOTICS)] Assessment & Plan Assessment & Plan (1) Bipolar disorder with psychotic features: Status: Acute Code(s): F31.9 - Bipolar disorder, unspecified Plan Juan Jose is a 56 yold male who carries a dx of MDD recurrent, r/o schizoaffective disorder. He presented [place] [facility] [place]10/[place]22 via section 12a for paranoid and A/VH. Per [facility] crisis, pt was paranoid, pacing during eval. He reportedly heard AH telling him to kill others, seeing cars following him. Reportedly pt has not been sleeping, pacing the hallways at night. Head CT showed no acute intracranial pathology. Utox positive for cannabis. Per chart review, pt has multiple co-morbid medical issues. No hx of previous psych IPLOC. No hx of antipsychotic or mood stabilizing medications. Pt was adherent with OP psych services up until 05/2021, was on wellbutrin XL and buspar up until 03/2021. Plan: Pt is not interested in medication management. Will speak with daughter to obtain collateral info. Pt is tangential and pressured, endorses AH but otherwise no behavioral issues observed, denies mood concerns. 01/13: Pt is refusing medication intervention, lacks insight into his pressured speech, agitation, and tangential thoughts. Again left VM for daughter to obtain collateral info. 01/14: Will start depakote ER 500 mg QHS for mood lability and apparent manic sx. Did not start atypical due to metabolic SE, as pt has hx of obesity and is now s/p gastric bypass. Pt does not have hx of itz per collateral contact, however will treat sx at this time. Head CT negative. Utox only positive for cannabis. 01/15: Pt refusing depakote ER 500 mg QHS 01/16: Pt refusing depakote ER 500 mg QHS, continues to present with manic sx of hyposomnia, disorganized thoughts, and agitation. Will add abilify 5 mg daily, as pt is endorsing paranoid delusional thought content during interview and per collateral contact. Consideration made to use atypical with low metabolic SE profile. Q15 min safety checks, CV Monitor response to medications. Monitor for safety in the milieu. Discharge on stabilization. Patient seen. Chart reviewed. Discussed with team. Obtain collateral contact info?as needed 01/17- pt informed of filing as pt continues paranoid, reporting CAH of hurting others. 01/18 continue current medications 01/19 continue current medications. committed to hospital, on section 8. Will start risperidone, back up Olanzapine IM if refuses oral. continue depakote. 01/21 Section 8- oral risperidone, back up Olanzapine IM. 01/22: Continue current regimen and plans 01/23: Continue current regimen and plans 01/24 continue current medications, will titrate risperidone as needed. 01/25 continue current medications. 01/26 continue current medications. 01/27 continue current medications. 01/28 continue current treatment. 01/29 Unclear why depakote d/c'd. Pt continues on risperdal, unclear benefit. 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 01/30 Pt presents as hostile, unfocused on treatment, suspicious and paranoid 01/31 Pt continues to present as paranoid and suspicious 02/01 increase risperidone to 3mg po BID, otherwise will consider switch to another antipsychotic. 02/02 continue current medications, will check ortho VS. 02/03 continue haldol 5mg po BID, pt retaining urine post void >350ml, declines to be cath. 02/04 continue current medication, bladder scan post void, straight cath, urology consult ordered, it seems pt with hx of BPH. 02/06/22 Continue Haldol trial urology consult check PSA monitor for adverse effects from Haldol 02/08/22 continue current medications. Urologist, Dr. Singer recommends to start alpha delvis, continue straight cath q8h for PVR>300cc. Follow up outpatient with urologist. I spent minutes with the patient and/or on the patient floor today, greater than?50% of which was spent counseling/coordinating care. Reason for contiued inpatient stay Substantial Risk for: harm to others and inability to function
[2022-02-07 13:26] LABS: Glucose, Whole Blood 137 mg/dL (60-115)
[2022-02-07] MEDS: Acetaminophen 325 MG TABLET 650 MG PO ×2 (16:42→23:52)
[2022-02-07 17:37] LABS: Glucose, Whole Blood 127 mg/dL (60-115)
[2022-02-07 20:50] VITALS: BP 144/76; PULSE 89; RESP 16; TEMP 36.9; O2SAT 97
[2022-02-07] MEDS: Doxazosin Mesylate 2 MG TABLET 8 MG PO (20:55)
[2022-02-07] MEDS: LORazepam 1 MG TABLET PO (20:56)
[2022-02-07] MEDS: traZODone HCL 50 MG TABLET PO (20:56)
--- NOTE | 2022-02-08 | ECG_ITS ---
Test Reason : chest pain Blood Pressure : / mmHG Vent. Rate : 078 BPM Atrial Rate : 078 BPM P-R Int : 152 ms QRS Dur : 090 ms QT Int : 358 ms P-R-T Axes : 061 030 034 degrees QTc Int : 408 ms Normal sinus rhythm Normal ECG When compared with ECG of 31-MAY-2021 08:13, No significant change was found Referred By: Tootie Quijano Electronically Signed By:DAVID PRECIADO
[2022-02-08] MEDS: Acetaminophen 325 MG TABLET 650 MG PO ×2 (05:35→22:01)
--- NOTE | 2022-02-08 06:32 | PC.NURSE ---
At approx. 2100 pt stood up from chair in common area, caught foot on the side and fell to the ground. Pt landed on R shoulder, immediately reported pain on right side shoulder, arm, and ribs. No head strike, no LOC, no open wound or visible injury. Pt given time to collect himself before assisted to sitting position, then standing to a wheelchair. Provider stone operator notified, x-rays ordered by KENNY Dia. Pt brought to obtain imaging, returned to unit around 0. Pt assisted to bed, fell asleep shortly after, and awoke around 2345, given Tylenol at this time.
[2022-02-08] MEDS: Aspirin 81 MG TAB.CHEW PO (08:32)
[2022-02-08] MEDS: Clopidogrel Bisulfate 75 MG TABLET PO (08:32)
[2022-02-08] MEDS: Finasteride 5 MG TABLET PO (08:32)
[2022-02-08] MEDS: HaloperidoL 5 MG TABLET PO ×2 (08:32→22:37)
[2022-02-08 08:34] VITALS: BP 134/63; PULSE 87; RESP 16; TEMP 36.2; O2SAT 98
[2022-02-08 08:45] LABS: Glucose, Whole Blood 208 mg/dL (60-115)
[2022-02-08 12:28] LABS: Glucose, Whole Blood 160 mg/dL (60-115)
--- NOTE | 2022-02-08 12:50 | P.PNPSI_ITS ---
Subjective Subjective Date of Service: 02/08/22 Reason For Visit: Paranoia Subjective Notes: Section 8 Interim History: Pt calmer, asking appropriate questions about his health and medical care, which at beginning of this admission he had refused. He presents as more organized, hoping to be discharged soon. Less paranoid towards staff and people at his building but some grandiose ideas of being a millionaire. Per nursing, he slept better, no behavioral concerns. Medication Compliance: Yes Side effects from medications: No Review of Systems Review of Systems In today's visit he is alert, pleasant and interactive within his means.? Speech is soft-spoken.? Moderate eye contact.? Affect is contained.? No overt aggressive behaviors or irritability.? Pt appears suspicious, paranoid, and makes vague threats of violence behavior. No known cognitive impairment. Judgment is marginally intact. Yes all other systems are reviewed and are negative and Unobtainable due to mental status Mental Status Exam Mental Status Exam Narrative: Appearance: casually groomed, fair hygiene in NAD Behavior:somewhat guarded psychomotor: no agitation or retardation noted Speech: clear, normal rate/rhythm/volume, spontaneous Thought process:tangential Thought content:paranoid delusions Mood: frustrated Affect: congruent SI:denies HI:denies VH/AH:denies Delusions:paranoid/grandiose delusions Insight/judgment:poor x 2. Memory/cog: alert, oriented x 3. t Diagnostics Vital Signs (24Hr): Vital Signs - 24 hr 02/07/22 20:50 02/08/22 08:34 Temperature 98.5 F 97.2 F Pulse Rate 89 87 Respiratory Rate 16 16 Blood Pressure 144/76 H 134/63 Pulse Oximetry 97 98 Oxygen Delivery Method Room Air Room Air BMI result Body Mass Index 29.3 Labs Results: 02/01/22 17:04 02/04/22 13:37 Labs: Laboratory Results - last 48 hr 02/06/22 02/06/22 02/07/22 13:27 17:55 09:21 POC Glucose 119 H 182 H 120 H 02/07/22 02/07/22 02/08/22 13:23 17:33 08:28 POC Glucose 137 H 127 H 208 H 02/08/22 12:24 POC Glucose 160 H Imaging Radiology Impressions: ITS Impressions Head CT 01/10/22 23:18 IMPRESSION: No acute intracranial pathology. Chest X-Ray 02/07/22 21:43 IMPRESSION: No active cardiopulmonary disease. Elbow X-Ray 02/07/22 21:43 IMPRESSION: 1. No fracture or dislocation is seen. 2. There is mild osteoarthritic change of the right glenohumeral joint. 3. Findings suggest right rotator cuff impingement. There is no maddie calcific tendinitis. EXAMINATION: XR ELBOW, RIGHT CLINICAL INFORMATION: Severe pain status-post fall. COMPARISON: None TECHNIQUE: AP, lateral, and oblique views of the right elbow. FINDINGS: Bony alignment and mineralization are normal. No fracture or joint effusion. Alignment is anatomic. Joint spaces are well-maintained. The soft tissue planes are unremarkable. Dermal lesions are noted of the lateral upper arm and the medial forearm. IMPRESSION: Unremarkable right elbow. Shoulder X-Ray 02/07/22 21:43 IMPRESSION: 1. No fracture or dislocation is seen. 2. There is mild osteoarthritic change of the right glenohumeral joint. 3. Findings suggest right rotator cuff impingement. There is no maddie calcific tendinitis. EXAMINATION: XR ELBOW, RIGHT CLINICAL INFORMATION: Severe pain status-post fall. COMPARISON: None TECHNIQUE: AP, lateral, and oblique views of the right elbow. FINDINGS: Bony alignment and mineralization are normal. No fracture or joint effusion. Alignment is anatomic. Joint spaces are well-maintained. The soft tissue planes are unremarkable. Dermal lesions are noted of the lateral upper arm and the medial forearm. IMPRESSION: Unremarkable right elbow. Medications Medications Current Medications Acetaminophen (Acetaminophen 325 Mg Tablet) 650 mg PO Q6H PRN PRN Reason: Headache/Pain Mild Scale (1-3) Last Admin: 02/08/22 05:35 Dose: 650 mg Al Hydroxide/Mg Hydroxide (Magnesium Hydrox/Alum Hydrox 30 Ml Oral.Susp) 30 ml PO Q6H PRN PRN Reason: Heartburn/Nausea Last Admin: 01/28/22 14:14 Dose: 30 ml Aspirin (Aspirin 81 Mg Tab.Chew) 81 mg PO DAILY [facility] Last Admin: 02/08/22 08:32 Dose: 81 mg Benztropine Mesylate (Benztropine Mesylate 1 Mg Tablet) 1 mg PO BID PRN PRN Reason: Extrapyramidal Effects Clopidogrel Bisulfate (Clopidogrel Bisulfate 75 Mg Tablet) 75 mg PO DAILY [facility] Last Admin: 02/08/22 08:32 Dose: 75 mg Doxazosin Mesylate (Doxazosin Mesylate 2 Mg Tablet) 8 mg PO BEDTIME [facility]; Protocol Last Admin: 02/07/22 20:55 Dose: 8 mg Finasteride (Finasteride 5 Mg Tablet) 5 mg PO DAILY [facility] Last Admin: 02/08/22 08:32 Dose: 5 mg Haloperidol (Haloperidol 5 Mg Tablet) 5 mg PO BID [facility] Last Admin: 02/08/22 08:32 Dose: 5 mg Haloperidol Lactate (Haloperidol Lactate 5 Mg/Ml Vial) 5 mg IM BID PRN PRN Reason: if pt refuses oral haldol Magnesium Hydroxide (Milk Of Magnesia 30 Ml Oral.Susp) 30 ml PO DAILY PRN PRN Reason: Constipation Last Admin: 02/01/22 06:14 Dose: 30 ml Multi-Ingred Cream/Lotion/Oil/Oint (Mineral Oil/Petrolatum,White 106 Gm Tube) 1 appl TOPICAL BID [facility] Last Admin: 02/08/22 08:34 Dose: Not Given Pt Own (Trulicity 3 (Mg)) 3 mg SUBCUT Mo [facility] Last Admin: 02/07/22 14:07 Dose: 3 mg Trazodone HCl (Trazodone Hcl 50 Mg Tablet) 50 mg PO BEDTIME [facility] Last Admin: 02/07/22 20:56 Dose: 50 mg Allergies Allergies Allergy/AdvReac Type Severity Reaction Status Date / Time Sulfa (Sulfonamide Allergy Intermediate hives Verified 12/27/21 13:12 Antibiotics) [SULFA (SULFONAMIDE ANTIBIOTICS)] Assessment & Plan Assessment & Plan (1) Bipolar disorder with psychotic features: Status: Acute Code(s): F31.9 - Bipolar disorder, unspecified Plan Juan Jose is a 56 yold male who carries a dx of MDD recurrent, r/o schizoaffective disorder. He presented to [facility] on 01/10/2022 via section 12a for paranoid and A/VH. Per [facility] crisis, pt was paranoid, pacing during eval. He reportedly heard AH telling him to kill others, seeing cars following him. Reportedly pt has not been sleeping, pacing the hallways at night. Head CT showed no acute intracranial pathology. Utox positive for cannabis. Per chart review, pt has multiple co-morbid medical issues. No hx of previous psych IPLOC. No hx of antipsychotic or mood stabilizing medications. Pt was adherent with OP psych services up until 05/2021, was on wellbutrin XL and buspar up until 03/2021. Plan: Pt is not interested in medication management. Will speak with daughter to obtain collateral info. Pt is tangential and pressured, endorses AH but otherwise no behavioral issues observed, denies mood concerns. 01/13: Pt is refusing medication intervention, lacks insight into his pressured speech, agitation, and tangential thoughts. Again left VM for daughter to obtain collateral info. 01/14: Will start depakote ER 500 mg QHS for mood lability and apparent manic sx. Did not start atypical due to metabolic SE, as pt has hx of obesity and is now s/p gastric bypass. Pt does not have hx of itz per collateral contact, however will treat sx at this time. Head CT negative. Utox only positive for cannabis. 01/15: Pt refusing depakote ER 500 mg QHS 01/16: Pt refusing depakote ER 500 mg QHS, continues to present with manic sx of hyposomnia, disorganized thoughts, and agitation. Will add abilify 5 mg daily, as pt is endorsing paranoid delusional thought content during interview and per collateral contact. Consideration made to use atypical with low metabolic SE profile. Q15 min safety checks, CV Monitor response to medications. Monitor for safety in the milieu. Discharge on stabilization. Patient seen. Chart reviewed. Discussed with team. Obtain collateral contact info?as needed 01/17- pt informed of filing as pt continues paranoid, reporting CAH of hurting o thers. 01/18 continue current medications 01/19 continue current medications. committed to hospital, on section 8. Will start risperidone, back up Olanzapine IM if refuses oral. continue depakote. 01/21 Section 8- oral risperidone, back up Olanzapine IM. 01/22: Continue current regimen and plans 01/23: Continue current regimen and plans 01/24 continue current medications, will titrate risperidone as needed. 01/25 continue current medications. 01/26 continue current medications. 01/27 continue current medications. 01/28 continue current treatment. 01/29 Unclear why depakote d/c'd. Pt continues on risperdal, unclear benefit. 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 01/30 Pt presents as hostile, unfocused on treatment, suspicious and paranoid 01/31 Pt continues to present as paranoid and suspicious 02/01 increase risperidone to 3mg po BID, otherwise will consider switch to another antipsychotic. 02/02 continue current medications, will check ortho VS. 02/03 continue haldol 5mg po BID, pt retaining urine post void >350ml, declines to be cath. 02/04 continue current medication, bladder scan post void, straight cath, urology consult ordered, it seems pt with hx of BPH. 02/06/22 Continue Haldol trial urology consult check PSA monitor for adverse effects from Haldol 02/08/22 continue current medications. Urologist, Dr. Singer recommends to start alpha delvis, continue straight cath q8h for PVR>300cc. Follow up outpatient with urologist. 02/09 continue current medications. No EPS on exam. I spent minutes with the patient and/or on the patient floor today, greater than?50% of which was spent counseling/coordinating care. Reason for contiued inpatient stay Substantial Risk for: harm to others and inability to function
[2022-02-08 17:29] LABS: Glucose, Whole Blood 113 mg/dL (60-115)
[2022-02-08 20:35] VITALS: BP 122/57; PULSE 82; RESP 18; TEMP 36.4; O2SAT 99
[2022-02-08] MEDS: Doxazosin Mesylate 2 MG TABLET 8 MG PO (20:37)
[2022-02-08 20:47] LABS: Glucose, Whole Blood 128 mg/dL (60-115)
[2022-02-08 21:50] VITALS: BP 150/70; PULSE 99; RESP 18; TEMP 36.6; O2SAT 94
[2022-02-08] MEDS: traZODone HCL 50 MG TABLET PO (22:37)
--- NOTE | 2022-02-09 00:10 | PC.NURSE ---
Pt complained of chest pain that radiated to center of back, described as dull pain as if he was being hit . VS were WNL with exception of HR of 99 and BP of 150/77. Pt also reported a headache. Pt was given Tylenol 650mg with good effect @ 2201. Pt was holding, head, was tearful and emotional at the time. Tootie Quijano CERTIFIED PHARMACY TECH ordered EKG. EKG was unremarkable with NSR. Pt requested to sleep in sensory room and was allowed to do so tonight. Staff reported that another pt (JACOB) was yelling at pt just before pt's chest pain incident occurred. Will continue to monitor pt.
[2022-02-09] MEDS: Mineral Oil/Petrolatum,White 106 GM Tube 1 APPL TOPICAL ×2 (06:12→09:25)
[2022-02-09 08:44] LABS: Glucose, Whole Blood 156 mg/dL (60-115)
[2022-02-09] MEDS: Aspirin 81 MG TAB.CHEW PO (08:44)
[2022-02-09] MEDS: Finasteride 5 MG TABLET PO (08:44)
[2022-02-09] MEDS: Clopidogrel Bisulfate 75 MG TABLET PO (08:44)
[2022-02-09] MEDS: HaloperidoL 5 MG TABLET PO ×2 (08:44→21:23)
[2022-02-09 09:21] VITALS: BP 132/65; PULSE 80; RESP 16; TEMP 36.7; O2SAT 97
[2022-02-09 12:27] LABS: Glucose, Whole Blood 116 mg/dL (60-115)
--- NOTE | 2022-02-09 12:30 | P.PNPSI_ITS ---
Subjective Subjective Date of Service: 02/09/22 Reason For Visit: Paranoia Subjective Notes: Section 8 Interim History: Pt continues to present as calmer, no aggression. continues to present with some degree of paranoid and suspiciousness towards staff here. He has limited insight as to need for ongoing treatment or even reason for having been brought to the hospital. He denies SI/HI. Medication Compliance: Yes Side effects from medications: No Review of Systems Review of Systems In today's visit he is alert, pleasant and interactive within his means.? Speech is soft-spoken.? Moderate eye contact.? Affect is contained.? No overt agg ressive behaviors or irritability.? Pt appears suspicious, paranoid, and makes vague threats of violence behavior. No known cognitive impairment. Judgment is marginally intact. Yes all other systems are reviewed and are negative and Unobtainable due to mental status Constitutional: Reports as per HPI and Reports no additional constitutional complaints Cardiovascular: Reports as per HPI and Reports no additional cardiovascular complaints Respiratory: Reports as per HPI and Reports no additional respiratory complaints Gastrointestinal: Reports as per HPI and Reports no additional gastrointestinal complaints Genitourinary: Reports as per HPI Musculoskeletal: Reports no additional musculoskeletal complaints and Reports as per HPI Reports system reviewed and no additional complaints, except as documented and Reports as per HPI Mental Status Exam Mental Status Exam Narrative: Appearance: casually groomed, fair hygiene in NAD Behavior:somewhat guarded, superficially cooperative psychomotor: no agitation or retardation noted Speech: clear, normal rate/rhythm/volume, spontaneous Thought process:tangential Thought content:paranoid delusions Mood: frustrated Affect: congruent SI:denies HI:denies VH/AH:denies Delusions:paranoid/grandiose delusions Insight/judgment:poor x 2. Memory/cog: alert, oriented x 3. t Diagnostics Vital Signs (24Hr): Vital Signs - 24 hr 02/08/22 20:35 02/08/22 21:50 02/09/22 09:21 Temperature 97.5 F 97.9 F 98.1 F Pulse Rate 82 99 80 Respiratory Rate 18 18 16 Blood Pressure 122/57 L 150/70 H 132/65 Pulse Oximetry 99 94 97 Oxygen Delivery Method Room Air Room Air Room Air BMI result Body Mass Index 29.3 Labs Results: 02/01/22 17:04 02/04/22 13:37 Labs: Laboratory Results - last 48 hr 02/08/22 02/08/22 02/08/22 08:28 12:24 17:25 POC Glucose 208 H 160 H 113 02/08/22 02/09/22 02/09/22 20:43 08:18 12:22 POC Glucose 128 H 156 H 116 H 02/09/22 16:54 POC Glucose 174 H Imaging Radiology Impressions: ITS Impressions Head CT 01/10/22 23:18 IMPRESSION: No acute intracranial pathology. Chest X-Ray 02/07/22 21:43 IMPRESSION: No active cardiopulmonary disease. Elbow X-Ray 02/07/22 21:43 IMPRESSION: 1. No fracture or dislocation is seen. 2. There is mild osteoarthritic change of the right glenohumeral joint. 3. Findings suggest right rotator cuff impingement. There is no maddie calcific tendinitis. EXAMINATION: XR ELBOW, RIGHT CLINICAL INFORMATION: Severe pain status-post fall. COMPARISON: None TECHNIQUE: AP, lateral, and oblique views of the right elbow. FINDINGS: Bony alignment and mineralization are normal. No fracture or joint effusion. Alignment is anatomic. Joint spaces are well-maintained. The soft tissue planes are unremarkable. Dermal lesions are noted of the lateral upper arm and the medial forearm. IMPRESSION: Unremarkable right elbow. Shoulder X-Ray 02/07/22 21:43 IMPRESSION: 1. No fracture or dislocation is seen. 2. There is mild osteoarthritic change of the right glenohumeral joint. 3. Findings suggest right rotator cuff impingement. There is no maddie calcific tendinitis. EXAMINATION: XR ELBOW, RIGHT CLINICAL INFORMATION: Severe pain status-post fall. COMPARISON: None TECHNIQUE: AP, lateral, and oblique views of the right elbow. FINDINGS: Bony alignment and mineralization are normal. No fracture or joint effusion. Alignment is anatomic. Joint spaces are well-maintained. The soft tissue planes are unremarkable. Dermal lesions are noted of the lateral upper arm and the medial forearm. IMPRESSION: Unremarkable right elbow. Medications Medications Current Medications Acetaminophen (Acetaminophen 325 Mg Tablet) 650 mg PO Q6H PRN PRN Reason: Headache/Pain Mild Scale (1-3) Last Admin: 02/09/22 14:58 Dose: 650 mg Al Hydroxide/Mg Hydroxide (Magnesium Hydrox/Alum Hydrox 30 Ml Oral.Susp) 30 ml PO Q6H PRN PRN Reason: Heartburn/Nausea Last Admin: 01/28/22 14:14 Dose: 30 ml Aspirin (Aspirin 81 Mg Tab.Chew) 81 mg PO DAILY [facility] Last Admin: 02/09/22 08:44 Dose: 81 mg Benztropine Mesylate (Benztropine Mesylate 1 Mg Tablet) 1 mg PO BID PRN PRN Reason: Extrapyramidal Effects Clopidogrel Bisulfate (Clopidogrel Bisulfate 75 Mg Tablet) 75 mg PO DAILY [facility] Last Admin: 02/09/22 08:44 Dose: 75 mg Doxazosin Mesylate (Doxazosin Mesylate 2 Mg Tablet) 8 mg PO BEDTIME [facility]; Protocol Last Admin: 02/08/22 20:37 Dose: 8 mg Finasteride (Finasteride 5 Mg Tablet) 5 mg PO DAILY [facility] Last Admin: 02/09/22 08:44 Dose: 5 mg Haloperidol (Haloperidol 5 Mg Tablet) 5 mg PO BID [facility] Last Admin: 02/09/22 08:44 Dose: 5 mg Haloperidol Lactate (Haloperidol Lactate 5 Mg/Ml Vial) 5 mg IM BID PRN PRN Reason: if pt refuses oral haldol Magnesium Hydroxide (Milk Of Magnesia 30 Ml Oral.Susp) 30 ml PO DAILY PRN PRN Reason: Constipation Last Admin: 02/01/22 06:14 Dose: 30 ml Multi-Ingred Cream/Lotion/Oil/Oint (Mineral Oil/Petrolatum,White 106 Gm Tube) 1 appl TOPICAL BID [facility] Last Admin: 02/09/22 09:25 Dose: 1 appl Pt Own (Trulicity 3 (Mg)) 3 mg SUBCUT Mo [facility] Last Admin: 02/07/22 14:07 Dose: 3 mg Trazodone HCl (Trazodone Hcl 50 Mg Tablet) 50 mg PO BEDTIME [facility] Last Admin: 02/08/22 22:37 Dose: 50 mg Allergies Allergies Allergy/AdvReac Type Severity Reaction Status Date / Time Sulfa (Sulfonamide Allergy Intermediate hives Verified 12/27/21 13:12 Antibiotics) [SULFA (SULFONAMIDE ANTIBIOTICS)] Assessment & Plan Assessment & Plan (1) Bipolar disorder with psychotic features: Status: Acute Code(s): F31.9 - Bipolar disorder, unspecified Plan 1. continue current medications. I spent minutes with the patient and/or on the patient floor today, greater than?50% of which was spent counseling/coordinating care. Reason for contiued inpatient stay Substantial Risk for: inability to function
[2022-02-09] MEDS: Acetaminophen 325 MG TABLET 650 MG PO ×2 (14:58→22:06)
--- NOTE | 2022-02-09 15:47 | P.CNUR_ITS ---
History of Present Illness Consult details Consult date: 02/08/22 Narrative: Consulting complaint urinary difficulty 56-year-old male Admitted to hospital 3 section 12 with auditory hallucinations and bipolar disorder Has difficulty with urination in-hospital Concomitant diabetes with diabetic nephropathy and microalbuminuria Nocturia x2 Weakness of stream Feelings of incomplete emptying Initiate prostate medications finasteride and doxazosin Outpatient follow-up in 4- 6 weeks Review of Systems Constitutional: Constitutional: Reports as per HPI and Reports no additional constitutional complaints Cardiovascular: Cardiovascular: Reports as per HPI and Reports no additional cardiovascular complaints Respiratory: Respiratory: Reports as per HPI and Reports no additional respiratory complaints Gastrointestinal: Gastrointestinal: Reports as per HPI and Reports no additional gastrointestinal complaints Genitourinary: Genitourinary: Reports as per HPI Musculoskeletal: Musculoskeletal: Reports no additional musculoskeletal complaints and Reports as per HPI Neurologic: Reports system reviewed and no additional complaints, except as documented and Reports as per HPI [facility] Past Medical History Medical History Anemia Anemia in chronic kidney disease CKD (chronic kidney disease) CKD (chronic kidney disease) stage 3, GFR 30-59 ml/min CKD stage G3b/A2, GFR 30-44 and albumin creatinine ratio 30-299 mg/g Diabetes type 2, uncontrolled Diabetic polyneuropathy associated with type 2 diabetes mellitus Dyslipidemia Foot osteomyelitis, right 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 deficiency Left knee pain Microalbuminuria Moderate non-proliferative diabetic retinopathy Morbid obesity NEEMA on CPAP Osteomyelitis PAD (peripheral artery disease) 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 Brother No problems noted. Son No problems noted. Daughter In good health Maternal Grandmother DM (diabetes mellitus) Stroke Surgical History Surgical History History of eye surgery 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 History of tonsillectomy and adenoidectomy Hx laparoscopic cholecystectomy S/P cataract surgery S/P debridement S/P tooth extraction Status post amputation of toe Social History Social History Household Members: None Housing: Apartment Do you presently have visiting nurse or other home services: No Unable to assess alcohol history related to: Unknown Alcohol intake: never Patient Tobacco Use Status: Never used Tobacco e-Cigarette/Vaping Use: Never Used Second Hand Smoke Exposure: No Substance Use Type: Marijuana Current occupational status: disabled Sexual orientation: Did not discuss. Cognitive needs: No Hearing needs: No Vision needs: Yes Meds Allergies Allergy/AdvReac Type Severity Reaction Status Date / Time Sulfa (Sulfonamide Allergy Intermediate hives Verified 12/27/21 13:12 Antibiotics) [SULFA (SULFONAMIDE ANTIBIOTICS)] Active Medications: Current Medications Acetaminophen (Acetaminophen 325 Mg Tablet) 650 mg PO Q6H PRN PRN Reason: Headache/Pain Mild Scale (1-3) Last Admin: 02/09/22 14:58 Dose: 650 mg Al Hydroxide/Mg Hydroxide (Magnesium Hydrox/Alum Hydrox 30 Ml Oral.Susp) 30 ml PO Q6H PRN PRN Reason: Heartburn/Nausea Last Admin: 01/28/22 14:14 Dose: 30 ml Aspirin (Aspirin 81 Mg Tab.Chew) 81 mg PO DAILY [facility] Last Admin: 02/09/22 08:44 Dose: 81 mg Benztropine Mesylate (Benztropine Mesylate 1 Mg Tablet) 1 mg PO BID PRN PRN Reason: Extrapyramidal Effects Clopidogrel Bisulfate (Clopidogrel Bisulfate 75 Mg Tablet) 75 mg PO DAILY [facility] Last Admin: 02/09/22 08:44 Dose: 75 mg Doxazosin Mesylate (Doxazosin Mesylate 2 Mg Tablet) 8 mg PO BEDTIME [facility]; Protocol Last Admin: 02/08/22 20:37 Dose: 8 mg Finasteride (Finasteride 5 Mg Tablet) 5 mg PO DAILY [facility] Last Admin: 02/09/22 08:44 Dose: 5 mg Haloperidol (Haloperidol 5 Mg Tablet) 5 mg PO BID [facility] Last Admin: 02/09/22 08:44 Dose: 5 mg Haloperidol Lactate (Haloperidol Lactate 5 Mg/Ml Vial) 5 mg IM BID PRN PRN Reason: if pt refuses oral haldol Magnesium Hydroxide (Milk Of Magnesia 30 Ml Oral.Susp) 30 ml PO DAILY PRN PRN Reason: Constipation Last Admin: 02/01/22 06:14 Dose: 30 ml Multi-Ingred Cream/Lotion/Oil/Oint (Mineral Oil/Petrolatum,White 106 Gm Tube) 1 appl TOPICAL BID [facility] Last Admin: 02/09/22 09:25 Dose: 1 appl Pt Own (Trulicity 3 (Mg)) 3 mg SUBCUT Mo [facility] Last Admin: 02/07/22 14:07 Dose: 3 mg Trazodone HCl (Trazodone Hcl 50 Mg Tablet) 50 mg PO BEDTIME [facility] Last Admin: 02/08/22 22:37 Dose: 50 mg Physical Exam Vital Signs: Vital Signs: Last Vital Signs Temp 98.1 F 02/09/22 09:21 Pulse 80 02/09/22 09:21 Resp 16 02/09/22 09:21 BP 132/65 02/09/22 09:21 Pulse Ox 97 02/09/22 09:21 O2 Del Method 02/09/22 09:21 BMI result Body Mass Index 29.3 Const: General: cooperative, healthy appearing, comfortable and no acute distress Orientation/consciousness: patient oriented x3 HEENT: Face and sinus: Yes normal facial exam Mouth: moist mucous membranes Neck: Neck: Yes normal visual inspection, Yes full ROM and Yes trachea midline Chest: Chest palpation & inspection: normal inspection of the chest Resp: Effort & Inspection: normal respiratory effort, able to speak in complete sentences and no respiratory distress GI: Inspection: Yes normal to inspection Back/Spine/Pelvis: Cervical Spine: normal cervical lordosis Thoracic/Lumbar Spine: thoracic and lumbar spine normal to inspection Skin: General skin exam: no rashes or lesions noted Neuro: General: patient oriented x3, tone normal and moves all extremities Extrem: General: Yes normal to inspection and Yes capillary refill normal Results Labs Result diagrams: 02/01/22 17:04 02/04/22 13:37 Labs: Abnormal lab results 02/08/22 02/09/22 02/09/22 Range/Units 20:43 08:18 12:22 POC Glucose 128 H 156 H 116 H (60-115) mg/dL Urine 01/11/22 01/24/22 02/04/22 Range/Units 00:25 12:55 16:29 Urine Color YELLOW Yellow Yellow Urine Appearance CLEAR Clear Clear Urine pH 6.0 5.5 6.5 (5.0-8.0) Ur Specific [place] 1.025 <= 1.005 1.015 (1.005-1.025) Urine Protein 300 (3+) H 100 (2+) H 300 (3+) H (NEG-TRACE) MG/DL Urine Glucose (UA) Negative Negative Negative (NEG) MG/DL All other labs normal. Assessment and Plan (1) Bladder outlet obstruction: Status: Acute Plan Initiate finasteride and doxazosin Follow-up outpatient 4-6 weeks Procedures Date of Service Date of Service: 02/08/22
--- NOTE | 2022-02-09 16:31 | PC.NURSE ---
Patient refusing bladder scan throughout the day when asked. Pt reports voiding and emptying without difficulty. Pt denies and frequency or discomfort when voiding. Pt stating, everything is fine when questioned about urinating.
[2022-02-09 16:59] LABS: Glucose, Whole Blood 174 mg/dL (60-115)
[2022-02-09 21:10] VITALS: BP 131/59; PULSE 85; TEMP 36.6; O2SAT 98
[2022-02-09] MEDS: Doxazosin Mesylate 2 MG TABLET 8 MG PO (21:23)
[2022-02-09] MEDS: traZODone HCL 50 MG TABLET PO (21:23)
[2022-02-10 07:00] VITALS: BMI 29.1
[2022-02-10 08:30] VITALS: BP 128/60; PULSE 81; RESP 18; TEMP 36.5; O2SAT 98
[2022-02-10 08:36] LABS: Glucose, Whole Blood 96 mg/dL (60-115)
--- NOTE | 2022-02-10 09:18 | P.PNPSI_ITS ---
Subjective Subjective Date of Service: 02/10/22 Reason For Visit: Paranoia Subjective Notes: Section 8 Interim History: Pt calmer, no behavioral concerns. SOmewhat guarded and superficially cooperative. He denies SI/HI. residual paranoid and ideas of being millionaire, limited to no insight into psych symptoms and need for ongoing psych treatment and meds. Pt sleeping much better. He denies any physical concerns. Medication Compliance: Yes Side effects from medications: No Review of Systems Review of Systems In today's visit he is alert, pleasant and interactive within his means.? Speech is soft-spoken.? Moderate eye contact.? Affect is contained.? No overt aggressive behaviors or irritability.? Pt appears suspicious, paranoid, and makes vague threats of violence behavior. No known cognitive impairment. Judgment is marginally intact. Yes all other systems are reviewed and are negative and Unobtainable due to mental status Constitutional: Reports as per HPI and Reports no additional constitutional complaints Cardiovascular: Reports as per HPI and Reports no additional cardiovascular complaints Respiratory: Reports as per HPI and Reports no additional respiratory complaints Gastrointestinal: Reports as per HPI and Reports no additional gastrointestinal complaints Genitourinary: Reports as per HPI Musculoskeletal: Reports no additional musculoskeletal complaints and Reports as per HPI Reports system reviewed and no additional complaints, except as documented and Reports as per HPI Mental Status Exam Mental Status Exam Narrative: Appearance: casually groomed, fair hygiene in NAD Behavior:somewhat guarded, superficially cooperative psychomotor: no agitation or retardation noted Speech: clear, normal rate/rhythm/volume, spontaneous Thought process:tangential Thought content:paranoid delusions Mood: frustrated Affect: congruent SI:denies HI:denies VH/AH:denies Delusions:paranoid/grandiose delusions Insight/judgment:poor x 2. Memory/cog: alert, oriented x 3. t Diagnostics Vital Signs (24Hr): Vital Signs - 24 hr 02/10/22 18:00 02/10/22 21:36 02/11/22 08:56 Temperature 97.9 F 97.8 F 97.3 F Pulse Rate 81 85 77 Respiratory Rate 16 16 Blood Pressure 134/82 128/62 122/57 L Pulse Oximetry 98 97 99 Oxygen Delivery Method Room Air Room Air Room Air BMI result Body Mass Index 29.1 Labs Results: 02/01/22 17:04 02/04/22 13:37 Labs: Laboratory Results - last 48 hr 02/09/22 02/09/22 02/10/22 12:22 16:54 08:16 POC Glucose 116 H 174 H 96 02/10/22 02/10/22 02/11/22 12:24 18:14 09:03 POC Glucose 127 H 90 117 H Imaging Radiology Impressions: ITS Impressions Head CT 01/10/22 23:18 IMPRESSION: No acute intracranial pathology. Chest X-Ray 02/07/22 21:43 IMPRESSION: No active cardiopulmonary disease. Elbow X-Ray 02/07/22 21:43 IMPRESSION: 1. No fracture or dislocation is seen. 2. There is mild osteoarthritic change of the right glenohumeral joint. 3. Findings suggest right rotator cuff impingement. There is no maddie calcific tendinitis. EXAMINATION: XR ELBOW, RIGHT CLINICAL INFORMATION: Severe pain status-post fall. COMPARISON: None TECHNIQUE: AP, lateral, and oblique views of the right elbow. FINDINGS: Bony alignment and mineralization are normal. No fracture or joint effusion. Alignment is anatomic. Joint spaces are well-maintained. The soft tissue planes are unremarkable. Dermal lesions are noted of the lateral upper arm and the medial forearm. IMPRESSION: Unremarkable right elbow. Shoulder X-Ray 02/07/22 21:43 IMPRESSION: 1. No fracture or dislocation is seen. 2. There is mild osteoarthritic change of the right glenohumeral joint. 3. Findings suggest right rotator cuff impingement. There is no maddie calcific tendinitis. EXAMINATION: XR ELBOW, RIGHT CLINICAL INFORMATION: Severe pain status-post fall. COMPARISON: None TECHNIQUE: AP, lateral, and oblique views of the right elbow. FINDINGS: Bony alignment and mineralization are normal. No fracture or joint effusion. Alignment is anatomic. Joint spaces are well-maintained. The soft tissue planes are unremarkable. Dermal lesions are noted of the lateral upper arm and the medial forearm. IMPRESSION: Unremarkable right elbow. Medications Medications Current Medications Acetaminophen (Acetaminophen 325 Mg Tablet) 650 mg PO Q6H PRN PRN Reason: Headache/Pain Mild Scale (1-3) Last Admin: 02/11/22 02:02 Dose: 650 mg Al Hydroxide/Mg Hydroxide (Magnesium Hydrox/Alum Hydrox 30 Ml Oral.Susp) 30 ml PO Q6H PRN PRN Reason: Heartburn/Nausea Last Admin: 01/28/22 14:14 Dose: 30 ml Aspirin (Aspirin 81 Mg Tab.Chew) 81 mg PO DAILY [facility] Last Admin: 02/10/22 09:57 Dose: 81 mg Benztropine Mesylate (Benztropine Mesylate 1 Mg Tablet) 1 mg PO BID PRN PRN Reason: Extrapyramidal Effects Clopidogrel Bisulfate (Clopidogrel Bisulfate 75 Mg Tablet) 75 mg PO DAILY [facility] Last Admin: 02/10/22 09:58 Dose: 75 mg Doxazosin Mesylate (Doxazosin Mesylate 2 Mg Tablet) 8 mg PO BEDTIME [facility]; Protocol Last Admin: 02/10/22 21:32 Dose: 8 mg Finasteride (Finasteride 5 Mg Tablet) 5 mg PO DAILY [facility] Last Admin: 02/10/22 09:59 Dose: 5 mg Haloperidol (Haloperidol 5 Mg Tablet) 5 mg PO BID [facility] Last Admin: 02/10/22 21:32 Dose: 5 mg Haloperidol Lactate (Haloperidol Lactate 5 Mg/Ml Vial) 5 mg IM BID PRN PRN Reason: if pt refuses oral haldol Magnesium Hydroxide (Milk Of Magnesia 30 Ml Oral.Susp) 30 ml PO DAILY PRN PRN Reason: Constipation Last Admin: 02/01/22 06:14 Dose: 30 ml Multi-Ingred Cream/Lotion/Oil/Oint (Mineral Oil/Petrolatum,White 106 Gm Tube) 1 appl TOPICAL BID [facility] Last Admin: 02/10/22 22:32 Dose: Not Given Pt Own (Trulicity 3 (Mg)) 3 mg SUBCUT Mo [facility] Last Admin: 02/07/22 14:07 Dose: 3 mg Trazodone HCl (Trazodone Hcl 50 Mg Tablet) 50 mg PO BEDTIME [facility] Last Admin: 02/10/22 21:32 Dose: 50 mg Allergies Allergies Allergy/AdvReac Type Severity Reaction Status Date / Time Sulfa (Sulfonamide Allergy Intermediate hives Verified 12/27/21 13:12 Antibiotics) [SULFA (SULFONAMIDE ANTIBIOTICS)] Assessment & Plan Assessment & Plan (1) Bipolar disorder with psychotic features: Status: Acute Code(s): F31.9 - Bipolar disorder, unspecified Plan 02/10 continue current medications. d/c tomorrow. I spent minutes with the patient and/or on the patient floor today, greater than?50% of which was spent counseling/coordinating care. Reason for contiued inpatient stay Substantial Risk for: stable for discharge
[2022-02-10] MEDS: Aspirin 81 MG TAB.CHEW PO (09:57)
[2022-02-10] MEDS: Clopidogrel Bisulfate 75 MG TABLET PO (09:58)
[2022-02-10] MEDS: Finasteride 5 MG TABLET PO (09:59)
[2022-02-10] MEDS: HaloperidoL 5 MG TABLET PO ×2 (09:59→21:32)
[2022-02-10] MEDS: Mineral Oil/Petrolatum,White 106 GM Tube 1 APPL TOPICAL (10:01)
[2022-02-10 12:30] LABS: Glucose, Whole Blood 127 mg/dL (60-115)
[2022-02-10 18:00] VITALS: BP 134/82; PULSE 81; RESP 16; TEMP 36.6; O2SAT 98
[2022-02-10 18:19] LABS: Glucose, Whole Blood 90 mg/dL (60-115)
[2022-02-10] MEDS: traZODone HCL 50 MG TABLET PO (21:32)
[2022-02-10] MEDS: Doxazosin Mesylate 2 MG TABLET 8 MG PO (21:32)
[2022-02-10 21:36] VITALS: BP 128/62; PULSE 85; TEMP 36.6; O2SAT 97
[2022-02-11] MEDS: Acetaminophen 325 MG TABLET 650 MG PO (02:02)
[2022-02-11 08:56] VITALS: BP 122/57; PULSE 77; RESP 16; TEMP 36.3; O2SAT 99
[2022-02-11 09:07] LABS: Glucose, Whole Blood 117 mg/dL (60-115)
[2022-02-11] MEDS: Finasteride 5 MG TABLET PO (09:17)
[2022-02-11] MEDS: Aspirin 81 MG TAB.CHEW PO (09:17)
[2022-02-11] MEDS: Clopidogrel Bisulfate 75 MG TABLET PO (09:17)
[2022-02-11] MEDS: HaloperidoL 5 MG TABLET PO (09:17)
[2022-02-11] MEDS: Mineral Oil/Petrolatum,White 106 GM Tube 1 APPL TOPICAL (09:20)
--- NOTE | 2022-02-11 09:33 | PM.PSYDC ---
DS: Providers Provider Date of Service: 02/11/22 Date of admission: 01/11/22 23:03 Primary care physician: [facility] Consults: 02/04/22 13:30 Consult to Urology Routine Consulting Provider: Sherwin Singer Reason for consultation: urinary retention Has provider been notified: Yes DS: Diagnosis Discharge Diagnosis (1) Bipolar disorder with psychotic features: Status: Acute DS: Medications Discharge Medications Home Medications: Previous Rx's Medication Instructions Recorded dulaglutide 3 mg/0.5 mL 3 mg (0.5 mL) subcut TU@1000 #2 mL 09/27/21 subcutaneous pen injector (Trulicity) doxazosin 8 mg tablet 8 mg PO BEDTIME 90 days #90 tabs 02/09/22 finasteride 5 mg tablet 5 mg PO DAILY 90 days #90 tabs 02/09/22 aspirin 81 mg chewable tablet 81 mg PO DAILY #30 tabs 02/11/22 clopidogrel 75 mg tablet 75 mg PO DAILY #30 tabs 02/11/22 doxazosin 2 mg tablet 8 mg PO BEDTIME #120 tabs 02/11/22 finasteride 5 mg tablet (Proscar) 5 mg PO DAILY #30 tabs 02/11/22 haloperidol 5 mg tablet 5 mg PO BID #60 tabs 02/11/22 trazodone 50 mg tablet 50 mg PO BEDTIME #30 tabs 02/11/22 Mental Status Exam Mental Status Exam Narrative: Appearance: casually groomed, fair hygiene in NAD Behavior:cooperative psychomotor: no agitation or retardation noted Speech:clear, normal rate/rhythm/volume, spontaneous Thought process: linear. Thought content: looking forwards to be discharged, future oriented Mood: good Affect: congruent SI: none HI:none VH/AH:none Delusions:still residual delusions of having millions, mistrust of others to lesser extend. Insight/judgment:poor x 2 Memory/cog: alert, oriented x 3. Data Data Completed and Pending Completed studies during hospitalization [Text1]: 02/04/22 02/04/22 02/04/22 12:35 13:37 16:29 Sodium 140 Potassium 5.0 Chloride 104 Carbon Dioxide 26 Anion Gap 15 BUN 29 H Creatinine 1.40 Estim Creat Clear Calc 59.4 Estimated GFR 52 POC Glucose 146 H Random Glucose 164 H Calcium 8.4 D Total Bilirubin 0.4 AST 31 ALT 46 H Alkaline Phosphatase 120 H Total Protein 6.6 Albumin 3.3 L Urine Color Yellow Urine Appearance Clear Urine pH 6.5 Ur Specific [place] 1.015 Urine Protein 300 (3+) H Urine Glucose (UA) Negative Urine Ketones Negative Urine Blood Negative Urine Nitrite Negative Ur Leukocyte Esterase Negative Urine RBC 3-5 H Urine WBC 0-5 Ur Squamous Epith Cells 0-2 Urine Bacteria None Seen Hyaline Casts 0-2 02/04/22 02/05/22 02/05/22 18:07 09:21 11:48 Sodium Potassium Chloride Carbon Dioxide Anion Gap BUN Creatinine Estim Creat Clear Calc Estimated GFR POC Glucose 99 111 137 H Random Glucose Calcium Total Bilirubin AST ALT Alkaline Phosphatase Total Protein Albumin Urine Color Urine Appearance Urine pH Ur Specific [place] Urine Protein Urine Glucose (UA) Urine Ketones Urine Blood Urine Nitrite Ur Leukocyte Esterase Urine RBC Urine WBC Ur Squamous Epith Cells Urine Bacteria Hyaline Casts 02/05/22 02/06/22 02/06/22 18:16 09:01 13:27 Sodium Potassium Chloride Carbon Dioxide Anion Gap BUN Creatinine Estim Creat Clear Calc Estimated GFR POC Glucose 165 H 105 119 H Random Glucose Calcium Total Bilirubin AST ALT Alkaline Phosphatase Total Protein Albumin Urine Color Urine Appearance Urine pH Ur Specific [place] Urine Protein Urine Glucose (UA) Urine Ketones Urine Blood Urine Nitrite Ur Leukocyte Esterase Urine RBC Urine WBC Ur Squamous Epith Cells Urine Bacteria Hyaline Casts 02/06/22 02/07/22 02/07/22 17:55 09:21 13:23 Sodium Potassium Chloride Carbon Dioxide Anion Gap BUN Creatinine Estim Creat Clear Calc Estimated GFR POC Glucose 182 H 120 H 137 H Random Glucose Calcium Total Bilirubin AST ALT Alkaline Phosphatase Total Protein Albumin Urine Color Urine Appearance Urine pH Ur Specific [place] Urine Protein Urine Glucose (UA) Urine Ketones Urine Blood Urine Nitrite Ur Leukocyte Esterase Urine RBC Urine WBC Ur Squamous Epith Cells Urine Bacteria Hyaline Casts 02/07/22 02/08/22 02/08/22 17:33 08:28 12:24 Sodium Potassium Chloride Carbon Dioxide Anion Gap BUN Creatinine Estim Creat Clear Calc Estimated GFR POC Glucose 127 H 208 H 160 H Random Glucose Calcium Total Bilirubin AST ALT Alkaline Phosphatase Total Protein Albumin Urine Color Urine Appearance Urine pH Ur Specific [place] Urine Protein Urine Glucose (UA) Urine Ketones Urine Blood Urine Nitrite Ur Leukocyte Esterase Urine RBC Urine WBC Ur Squamous Epith Cells Urine Bacteria Hyaline Casts 02/08/22 02/08/22 02/09/22 17:25 20:43 08:18 Sodium Potassium Chloride Carbon Dioxide Anion Gap BUN Creatinine Estim Creat Clear Calc Estimated GFR POC Glucose 113 128 H 156 H Random Glucose Calcium Total Bilirubin AST ALT Alkaline Phosphatase Total Protein Albumin Urine Color Urine Appearance Urine pH Ur Specific [place] Urine Protein Urine Glucose (UA) Urine Ketones Urine Blood Urine Nitrite Ur Leukocyte Esterase Urine RBC Urine WBC Ur Squamous Epith Cells Urine Bacteria Hyaline Casts 02/09/22 02/09/22 02/10/22 12:22 16:54 08:16 Sodium Potassium Chloride Carbon Dioxide Anion Gap BUN Creatinine Estim Creat Clear Calc Estimated GFR POC Glucose 116 H 174 H 96 Random Glucose Calcium Total Bilirubin AST ALT Alkaline Phosphatase Total Protein Albumin Urine Color Urine Appearance Urine pH Ur Specific [place] Urine Protein Urine Glucose (UA) Urine Ketones Urine Blood Urine Nitrite Ur Leukocyte Esterase Urine RBC Urine WBC Ur Squamous Epith Cells Urine Bacteria Hyaline Casts 02/10/22 02/10/22 02/11/22 12:24 18:14 09:03 Sodium Potassium Chloride Carbon Dioxide Anion Gap BUN Creatinine Estim Creat Clear Calc Estimated GFR POC Glucose 127 H 90 117 H Random Glucose Calcium Total Bilirubin AST ALT Alkaline Phosphatase Total Protein Albumin Urine Color Urine Appearance Urine pH Ur Specific [place] Urine Protein Urine Glucose (UA) Urine Ketones Urine Blood Urine Nitrite Ur Leukocyte Esterase Urine RBC Urine WBC Ur Squamous Epith Cells Urine Bacteria Hyaline Casts Imaging Diagnostic Imaging Impressions Head CT 01/10/22 23:18 IMPRESSION: No acute intracranial pathology. Chest X-Ray 02/07/22 21:43 IMPRESSION: No active cardiopulmonary disease. Elbow X-Ray 02/07/22 21:43 IMPRESSION: 1. No fracture or dislocation is seen. 2. There is mild osteoarthritic change of the right glenohumeral joint. 3. Findings suggest right rotator cuff impingement. There is no maddie calcific tendinitis. EXAMINATION: XR ELBOW, RIGHT CLINICAL INFORMATION: Severe pain status-post fall. COMPARISON: None TECHNIQUE: AP, lateral, and oblique views of the right elbow. FINDINGS: Bony alignment and mineralization are normal. No fracture or joint effusion. Alignment is anatomic. Joint spaces are well-maintained. The soft tissue planes are unremarkable. Dermal lesions are noted of the lateral upper arm and the medial forearm. IMPRESSION: Unremarkable right elbow. Shoulder X-Ray 02/07/22 21:43 IMPRESSION: 1. No fracture or dislocation is seen. 2. There is mild osteoarthritic change of the right glenohumeral joint. 3. Findings suggest right rotator cuff impingement. There is no maddie calcific tendinitis. EXAMINATION: XR ELBOW, RIGHT CLINICAL INFORMATION: Severe pain status-post fall. COMPARISON: None TECHNIQUE: AP, lateral, and oblique views of the right elbow. FINDINGS: Bony alignment and mineralization are normal. No fracture or joint effusion. Alignment is anatomic. Joint spaces are well-maintained. The soft tissue planes are unremarkable. Dermal lesions are noted of the lateral upper arm and the medial forearm. IMPRESSION: Unremarkable right elbow. DS: Summary Hospital Course Hospital Course: Subjective Notes: Logan Warning and Conditional Voluntary Healthcare Proxy: No Guardianship: No Medical Problems Affecting Mental Status: No Narrative: Juan Jose is a 56 yold male who carries a dx of MDD recurrent. He [place] [facility] via section 12a for paranoid and A/VH. Per [facility] crisis, pt was paranoid, pacing during eval. He reportedly heard AH telling him to kill others, seeing cars following him. Reportedly pt has not been sleeping, pacing the hallways at night. Head CT showed no acute intracranial pathology. Utox positive for cannabis. During crisis eval, landcare facilitator noted that pt?s speech was tangential, he was difficult to get information from, paranoid and pacing throughout assessment.? I evaluated the pt this evening with electrical engineering technologist and upon interview he reports ?Im excellent, good.? Says he is here because his daughter ?decided for me to be here,? says he doesn?t want to be here, signed a CV and 3 day notice. Says his daughter is his [employer], thinks she is ?playing games? because he was going to change his will, says she is worried about her inheritance and he feels like he has ?power? due to this. Pt denies depression. Denies SI/SIB. Says he doesnt use any illicit substances, however utox positive for cannabis. Says he attends to ADLs, showers multiple times a day but denies sx of OCD, says he does this because he can. Pt endorses AH, says he hears people shouting for him. Denies command AH, says the voices do not bother him. 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 Says he sleeps 4-5 hours at night. Energy is good. Denies issues with anger, but then says he will be angry if he is not discharged on Monday. When asked about anxiety, pt says this is due to ?I need a woman next to me,? says ?this is the only anxiety I got.? Says he is not interested in taking psych medications, doesnt want chemicals in his body. Denies hx of IPLOC. During interview, pt is tangential, pressured, and difficult to follow in conversation. Past Psychiatric History: -Past meds: wellbutrin, Topamax, ambien, vistaril, Prozac (reflux). Pt self discontinued medications 03/2021. -Hx of OP psych services at [facility] in 2014-05/2021, stopped attending. Outpatient therapy:? [facility] 2021 (discharged) Medical Evaluation Reviewed: Yes -Hx of attending weight loss clinic, s/p bariatric surgery. -Hx of DM but no longer requiring treatment since wt loss.? -Renal impairment.? -Diabetic foot ulcer late 2017, hx of toe amputations, neuropathy.? -HTN.? -NEEMA, does not use his CPAP. -Osteomyelitis -Loss of vision in one of his eyes HOSPITAL COURSE On the unit, pt was admitted on CV and then sign 3 day notice. Pt presented as agitated, paranoid ideas of people going after him, trying to steal millions from him. He reported hearing voices. He was very paranoid towards staff and peers. He was not sleeping for several days during firsts weeks of admission. He also reported that he did not think he needed medical care he had in past agreed to continue as he stated he felt invincible. Given on going paranoia, history of aggression prior to coming, agitation, impaired insight into his medical conditions which when stable he has agreed to receive treatment, petition for involuntary treatment was sent to court and ultimately granted. Pt was started on risperidone, titrated to 6mg po daily for about 2.5 weeks with minimal effect. Pt was then switched to haldol 5mg po BID. He gradually presented as calmer, with increase insight into his medical conditions and appropriate questions about getting back on track with his medical care. He denied SI/HI. He denied VH/AH and did not appear internally preoccupied. He continued to present with delusions of being rich and having land in [place] that's worth billions. His insight into need for ongoing psych tx or why people were concern about his behavior is still limited and even at time of discharge he does not think he needed to be in hospital nor that it there was any concerning behaviors. However, he appeared much calmer, less agitated, much less paranoid. No signs of aggression towards self or others. Collateral information gathered from the daughter, who reports pt appears in improved condition, less paranoid with no aggression and denied any safety concerns. Status at Discharge Cognitive/behavioral status at discharge: Pt with calmer affect, non labile, less paranoid, still residual ideas of being a millionaire. Increased insight into medical conditions and need to treatment which he has done in the past. Limited insight into psych illness and need for ongoing tx. No SI/HI. No VH/AH. Functional status at discharge: independent ambulation Overall status at discharge: patient is progressing back to baseline Time Spent with Patient Time attestation: Total time spent providing and/or coordinating discharge services: Time spent: Greater than 30 minutes Discharge Plan Discharge Patient Disposition: Home Health Service Discharge Diagnosis: bipolar disorder type 1 Referrals: ALFREDO LAMBERT, THERAPIST [Other] - 02/14/22 9:00 am (IN PERSON AT OFFICE) EMILY PRESLEY, PSYCHIATRIC PROVIDER [Other] - 02/28/22 9:20 am (TELEHEALTH) ROXANNE OLIVEIRA, PSYCHIATRIC PROVIDER [Other] - 03/30/22 12:40 pm (TELEHEALTH) Sherwin Singer MD [Physician] - 07/21/22 10:30 am Xochilt Mckoy MD [Physician] - 1 Week (Provider would call to set up follow up appt ) Discharge Medications: New finasteride 5 mg tablet 5 mg PO DAILY 90 Days Qty: 90 1RF doxazosin 8 mg tablet 8 mg PO BEDTIME 90 Days Qty: 90 1RF clopidogrel 75 mg Tablet 75 mg PO DAILY Qty: 30 0RF doxazosin 2 mg Tablet 8 mg PO BEDTIME Qty: 120 0RF Protocol: Hold for SBP< HOLD for SBP < : 90 haloperidol 5 mg Tablet 5 mg PO BID Qty: 60 0RF trazodone 50 mg Tablet 50 mg PO BEDTIME Qty: 30 0RF aspirin 81 mg Tablet,Chewable 81 mg PO DAILY Qty: 30 0RF finasteride [Proscar] 5 mg Tablet 5 mg PO DAILY Qty: 30 0RF Continued Trulicity 3 mg/0.5 mL pen injector 3 mg subcut TU@1000 Qty: 2 4RF Discontinued aspirin 81 mg tablet,chewable 81 mg PO DAILY Qty: 90 3RF clopidogrel [Plavix] 75 mg tablet 75 mg PO DAILY Qty: 90 1RF Discharge Orders: Discharge Order (Routine); Ordered 02/11/22 Ordered By: Shantelle Hart Diet: Diabetic diet Activity on Discharge: As tolerated Stand Alone Forms: Patient Portal Discharge page, Community Support Care Plan Goals: 1. Maintain mood 2. No aggression towards self or others 3. No SI/HI 4. Less paranoid, less grandiose delusions Health Concerns: Follow up with PCP, nephrology, urology Plan of Treatment: 1. Take medications as prescribed 2. Go to nearest ED or call 911 in event of emergency Assessment: Pt with brighter, still some residual paranoid and ideas of being a millionaire. No SI/HI. No aggression towards self or others. No SI/HI. No VH/AH. Discharge Date/Time: 02/11/22 12:05
== END 2022-02-11 12:05 | disposition home health service (06) | DRG 753 ==
LOC: HO.ED 01-11 01:58 → HO.PADLT16 01-11 23:09
PROVIDERS: Physician Assistant; Registered Nurse; Admitting Provider Psychiatry & Neurology Psychiatry; Emergency Provider Emergency Medicine; Visit Provider Social Worker
DX: F31.9 Bipolar disorder, unspecified (principal); E11.22 Type 2 diabetes mellitus with diabetic chronic kidney disease; E11.40 Type 2 diabetes mellitus with diabetic neuropathy, unspecified; I12.9 Hypertensive chronic kidney disease with stage 1 through stage 4 chronic kidney disease, or unspecified chronic kidney disease; N18.32 Chronic kidney disease, stage 3b; G47.33 Obstructive sleep apnea (adult) (pediatric); Z20.822 Contact with and (suspected) exposure to COVID-19; Z79.02 Long term (current) use of antithrombotics/antiplatelets; Z98.84 Bariatric surgery status; Z88.2 Allergy status to sulfonamides; Z79.82 Long term (current) use of aspirin; Z79.899 Other long term (current) drug therapy
CPT/HCPCS: 36415; 70450; 71046; 73030; 73080; 80053; 80061; 80307; 81001; 82077; 82140; 82607; 82746; 82947; 83036; 83735; 84439; 84443; 85025; 85610; 85730; 87635; 93005; 99285; J2250

== ENCOUNTER → 2022-02-15 12:47 | Outpatient (BNVA) | payer OTHER, SELFPAY | PROVIDERS: PCP Internal Medicine; Visit Provider Internal Medicine Endocrinology, Diabetes & Metabolism | DX: E11.65 Type 2 diabetes mellitus with hyperglycemia (principal); E11.22 Type 2 diabetes mellitus with diabetic chronic kidney disease; N18.30 Chronic kidney disease, stage 3 unspecified; E11.40 Type 2 diabetes mellitus with diabetic neuropathy, unspecified; E11.319 Type 2 diabetes mellitus with unspecified diabetic retinopathy without macular edema; Z96.41 Presence of insulin pump (external) (internal) | CPT/HCPCS: 82947; 83036; 99212 ==

== ENCOUNTER 2022-03-24 13:20 | Outpatient (REF) | payer OTHER, SELFPAY ==
[2022-03-24 13:41] LABS: Hemoglobin 9.3 g/dl (14.0-18.0); Mean Corpuscular HGB Conc 32.1 g/dl (31.0-36.0); Mean Corpuscular Hemoglobin 26.7 pg (27.0-33.0); Mean Corpuscular Volume 83.3 fL (80.0-98.0); Mean Platelet Volume 9.1 fL (9.4-12.4); Platelet Count 378 X10*3/uL (160-400); Red Blood Count 3.48 X10*6/uL (4.60-5.80); Red Cell Distribution Width 17.8 % (11.0-16.0); White Blood Count 8.9 X10*3/uL (4.8-10.8)
[2022-03-24 14:12] LABS: Anion Gap 14 (12-20); Blood Urea Nitrogen 39 mg/dL (9-16); Calcium 8.6 mg/dL (8.4-10.2); Carbon Dioxide 25 mmol/L (22-29); Chloride 106 mmol/L (96-108); Estimated Glomerular Filt Rate 41; Glucose Random 151 mg/dL (60-115); Iron 43 mcg/dL (45-160); Percent Iron Saturation 13 % (15-50); Potassium 4.8 mmol/L (3.3-5.1); Sodium 140 mmol/L (135-145); Total Iron Binding Capacity 344 mcg/dL (228-428); Unsaturated Iron Binding 301 ug/dL
== END 2022-03-24 13:21 | disposition home or self-care (01) ==
LOC: HO.LAB 13:20
PROVIDERS: PCP Internal Medicine; Visit Provider Physician Assistant
DX: D50.9 Iron deficiency anemia, unspecified (principal); N18.9 Chronic kidney disease, unspecified
CPT/HCPCS: 36415; 80048; 83540; 85027

== ENCOUNTER → 2022-03-30 11:50 | Outpatient (BNVA) | payer OTHER, SELFPAY | PROVIDERS: PCP Internal Medicine; Visit Provider Urology | DX: N40.1 Benign prostatic hyperplasia with lower urinary tract symptoms (principal); N13.8 Other obstructive and reflux uropathy; R39.12 Poor urinary stream | CPT/HCPCS: 99212 ==

== ENCOUNTER 2022-04-01 11:32 | Outpatient (REF) | payer OTHER, SELFPAY ==
[2022-04-01 13:30] LABS: Prostate Specific Antigen 0.16 ng/mL (<0.05-4.0)
== END 2022-04-01 11:33 | disposition home or self-care (01) ==
LOC: HO.LAB 11:32
PROVIDERS: Urology; PCP Internal Medicine; Visit Provider Physician Assistant
DX: Z12.5 Encounter for screening for malignant neoplasm of prostate (principal); N40.1 Benign prostatic hyperplasia with lower urinary tract symptoms
CPT/HCPCS: 36415; 84153

== ENCOUNTER 2022-04-02 16:03 | Emergency (ER) | payer OTHER, SELFPAY ==
--- NOTE | ~2022-04-02 | XR_ITS ---
EXAMINATION: XR CHEST CLINICAL INFORMATION: Question pneumonia COMPARISON: Chest x-ray 02/07/2022 TECHNIQUE: Frontal view of the chest was obtained. FINDINGS: Minimal elevation of the left hemidiaphragm. Linear subsegmental atelectasis versus scarring in the left lower lung. No airspace consolidation. No pleural effusion or pneumothorax. Normal cardiomediastinal silhouette and pulmonary vascularity. No acute osseous injury. Suture material and/or surgical clips project in the left upper quadrant. Cholecystectomy clips also noted in the right upper quadrant. XR/XR chest 1V IMPRESSION: 1. No acute pulmonary disease. 2. Minimal subsegmental atelectasis versus scarring in the left lower lung.
[2022-04-02 16:24] VITALS: BP 147/69; BP 150/70; PULSE 68; PULSE 80; RESP 16; TEMP 36.2; O2SAT 97; O2SAT 99; BMI 29.9
[2022-04-02 16:39] LABS: Glucose, Whole Blood 90 mg/dL (60-115)
--- NOTE | 2022-04-02 17:02 | ED_ITS ---
HPI - General Adult General Chief complaint: Recheck/Abnormal Lab/Rx Stated complaint: hypoglycemia Time Seen by Provider: 04/02/22 16:34 Source: patient Mode of arrival: ambulatory Limitations: no limitations History of Present Illness HPI narrative: 56 yold male with pmh of DM, PAD, CKD, NEEMA presents to the ED for hypoglycemia. patient states he was watching television and felt dizzy and became diaphoretic so he checked his glucose and it was 53. Patient takes only trulicity and humalog. Patient states he had two meals ( small breakfast and lunch) today and his last meal was at 12:00pm and glucose was 207 and thinks he only took 2 units of inuslin. Patient glucose of 53 pm was at two oclock. patient presently is asymptomatic. Related Data Home Medications Medication Instructions Recorded Confirmed atorvastatin 10 mg tablet 10 mg PO DAILY 03/23/22 03/23/22 ergocalciferol (vitamin D2) 1,250 1,250 mcg PO QWEEK 03/23/22 03/23/22 mcg (50,000 unit) capsule (Vitamin D2) Previous Rx's Medication Instructions Recorded finasteride 5 mg tablet 5 mg PO DAILY 90 days #90 tabs 02/09/22 aspirin 81 mg chewable tablet 81 mg PO DAILY #30 tabs 02/11/22 clopidogrel 75 mg tablet 75 mg PO DAILY #30 tabs 02/11/22 finasteride 5 mg tablet (Proscar) 5 mg PO DAILY #30 tabs 02/11/22 haloperidol 5 mg tablet 5 mg PO BID #60 tabs 02/11/22 trazodone 50 mg tablet 50 mg PO BEDTIME #30 tabs 02/11/22 acetaminophen 500 mg tablet 1,000 mg PO Q6H PRN fever or pain 02/21/22 30 days #240 tabs dulaglutide 3 mg/0.5 mL 1 mg (0.1667 mL) subcut QWEEK #2 mL 03/09/22 subcutaneous pen injector (Trulicity) blood sugar diagnostic (FreeStyle #150 ea 03/21/22 Test strips) blood pressure test kit-medium #1 ea 03/23/22 clotrimazole 1 % topical cream 1 appl topical BID 30 days #45 03/23/22 grams alfuzosin 10 mg tablet,extended 10 mg PO DAILY 90 days #90 tabs 03/30/22 release 24 hr wheelchair electric #1 ea 04/02/22 Allergies Allergy/AdvReac Type Severity Reaction Status Date / Time Sulfa (Sulfonamide Allergy Intermediate hives Verified 03/28/22 12:28 Antibiotics) [SULFA (SULFONAMIDE ANTIBIOTICS)] Review of Systems Review of Systems: hypoglycemia Yes all other systems are reviewed and are negative FORMERLY [facility], [facility]–1983 Past Medical History Medical History Anemia Anemia in chronic kidney disease CKD (chronic kidney disease) CKD (chronic kidney disease) stage 3, GFR 30-59 ml/min CKD stage G3b/A2, GFR 30-44 and albumin creatinine ratio 30-299 mg/g Diabetes type 2, uncontrolled Diabetic polyneuropathy associated with type 2 diabetes mellitus Dyslipidemia Foot osteomyelitis, right 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 deficiency Left knee pain Microalbuminuria Moderate non-proliferative diabetic retinopathy Morbid obesity NEEMA on CPAP Osteomyelitis PAD (peripheral artery disease) Patellofemoral arthritis of 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 Brother No problems noted. Son No problems noted. Daughter In good health Maternal Grandmother DM (diabetes mellitus) Stroke Social History Social History Household Members: None Housing: Apartment Do you presently have visiting nurse or other home services: No Unable to assess alcohol history related to: Unknown Alcohol intake: never Patient Tobacco Use Status: Never used Tobacco Smoked in Last 30 Days: No e-Cigarette/Vaping Use: Never Used Second Hand Smoke Exposure: No Use of substances other than those prescribed or required for medical reasons: No Substance Use Type: Marijuana Advance Directives: No Advance Directives Information Provided: No Current occupational status: disabled Sexual orientation: Did not discuss. Cognitive needs: No Hearing needs: No Vision needs: Yes Physical Exam ED Vital Signs: Vital Signs - 24 hr 04/02/22 19:58 04/02/22 20:29 04/02/22 23:54 Temperature 98.7 F 97.9 F Pulse Rate 75 73 Respiratory Rate 18 18 Blood Pressure 123/95 H 129/76 Pulse Oximetry 100 97 Oxygen Delivery Method Room Air Room Air 04/03/22 01:23 EDT Temperature 98.0 F Pulse Rate 69 Respiratory Rate 16 Blood Pressure 131/70 Pulse Oximetry 96 Oxygen Delivery Method Room Air BMI result Body Mass Index 29.9 Const General: cooperative, healthy appearing, comfortable, no acute distress, well developed, alert, awake and Physically active Orientation/consciousness: oriented to person, oriented to place, oriented to time and patient oriented x3 HENMT Head: Yes normal to inspection, Yes No palpable skull fracture present, Yes normocephalic, Yes atraumatic and No abrasion Eyes General: appearance normal, both eyes and all related structures Neck Neck: Yes normal visual inspection, Yes full ROM, Yes no lymphadenopathy, Yes no meningeal signs, Yes trachea midline, Yes supple, No anterior neck swelling and No tender Chest Chest palpation & inspection: normal inspection of the chest and normal palpation of entire chest wall Resp Effort & Inspection: normal respiratory effort and able to speak in complete sentences Auscultation: clear to auscultation bilaterally Cardio Jugular venous distension: no JVD Heart sounds: S1 normal heart sound present and S2 normal heart sound present GI Inspection: Yes normal to inspection and No abdominal wall ecchymosis Palpation (GI): Soft to palpation, not firm, nontender, no guarding and not ri gid General: No CVA tenderness and Yes no CVA tenderness Back/Spine/Pelvis Back: no CVA tenderness, No CVA tenderness and No back tenderness Skin General skin exam: no rashes or lesions noted and elasticity normal Neuro Other: Negative facial droop. Negative slurred speech. Negative pronator drift. All extremities equal strength 5+. [id number] rapid hand movement intact. Negative Romberg. Normal gait. Negative facial droop. General: oriented to person, oriented to place, oriented to time, patient oriented x3, gait normal, tone normal, moves all extremities, Normal light touch and pain sensation, no meningeal signs, no focal motor deficits and CN's II-XI intact bilaterally Cranial nerves: Yes CN's II-XII intact bilaterally, Yes Facial sensation intact/muscles of mastication intact, Yes Bilaterally intact EOM present and Yes Ability to bilaterally rotate head present Cognition (Neuro): normal cognition Gait exam (Neuro): Normal gait present and Wide-based gait present Motor exam (neuro): 5/5 motor strength present throughout Sensory Exam: Normal double simultaneous stimulation for sensation Extrem General: Yes normal to inspection and Yes full ROM Psych Appearance: grossly normal, well kempt and not disheveled Course Course Course Narrative: Patient recent POC is 90. Patient will have labs drawa. patient amber chest xray and UA to make sure there is no infection. D5LR ordered. Reevaluation(s) Reevaluation #1: Patient became diaphoretic during the ED visit blood glucose was normal. Patient had 2 EKGs and 2 troponins which were negative. Patient glucose above 100 throughougt ED visit. Patient received D5 LR and soda and food. No need for admission. Patient not on any sulfonylureas. Most likely patient might have taken too much insulin and not have eaten enough before 2:00clock. Patient has no ride back home. Patient will wait in the ER to morning to take a taxi or bus. UA negative UTI. CHest xray negative for pnuemonia. patient kidney function is at baseline in the morning. Time: 01:55 Medical Decision Making [facility] Narrative Medical decision making narrative: Hypoglycemia Lab Data Result diagrams: 04/02/22 17:24 04/02/22 17:24 Labs: Lab Results 04/02/22 04/02/22 04/02/22 Range/Units 16:37 17:24 17:24 WBC 9.5 (4.8-10.8) X10*3/uL RBC 4.00 L (4.60-5.80) X10*6/uL Hgb 10.6 L (14.0-18.0) g/dl Hct 34.0 L (42.0-52.0) % MCV 85.0 (80.0-98.0) fL MCH 26.5 L (27.0-33.0) pg MCHC 31.2 (31.0-36.0) g/dl RDW 18.4 H (11.0-16.0) % Plt Count 463 H (160-400) X10*3/uL MPV 9.2 L (9.4-12.4) fL Immature Gran % (Auto) 0.3 (0.0-0.4) % Neut % (Auto) 74.5 H (45-73) % Lymph % (Auto) 15.6 L (20-40) % [place] % (Auto) 7.9 (2-11) % Eos % (Auto) 1.2 (0-4) % Baso % (Auto) 0.5 (0-2) % Lymph # (Auto) 1.5 (1.2-4.9) X10*3/uL [place] # (Auto) 0.8 (0.1-1.2) X10*3/uL Eos # (Auto) 0.1 (0.0-0.4) X10*3/uL Baso # (Auto) 0.1 (0.0-0.2) X10*3/uL Abs Immat Gran (auto) 0.03 (0.00-0.03) X10*3/uL Absolute Neuts (auto) 7.0 (2.0-8.3) x10*3/uL Absolute Nucleated RBC 0.000 (0.0-0.012) X10*3/uL Nucleated RBC % (auto) 0.0 (0.0-0.2) /100WBC PT (10.0-13.1) SEC INR (0.9-1.1) APTT (26.0-36.4) SEC Sodium 141 (135-145) mmol/L Potassium 4.7 (3.3-5.1) mmol/L Chloride 108 (96-108) mmol/L Carbon Dioxide 21 L (22-29) mmol/L Anion Gap 17 (12-20) BUN 35 H (9-16) mg/dL Creatinine 1.57 H (0.5-1.4) mg/dL Estim Creat Clear Calc 51.6 Estimated GFR 46 POC Glucose 90 (60-115) mg/dL Random Glucose 88 D (60-115) mg/dL Calcium 8.4 (8.4-10.2) mg/dL Total Bilirubin 0.7 (0.0-1.0) mg/dL AST 48 H D (5-37) U/L ALT 106 H (0-40) U/L Alkaline Phosphatase 96 (39-117) U/L Troponin I High Sens (<3.5-35.0) ng/L Total Protein 7.3 (6.5-8.0) g/dL Albumin 4.0 D (3.5-5.0) g/dL Urine Color Urine Appearance Urine pH (5.0-9.0) Ur Specific [place] (1.005-1.025) Urine Protein (Neg-Trace) mg/dL Urine Glucose (UA) (Negative) mg/dL Urine Ketones (Negative) mg/dL Urine Blood (Negative) Urine Nitrite (Negative) Ur Leukocyte Esterase (Negative) Urine RBC (0-2) /HPF Urine WBC (0-5) /HPF Ur Squamous Epith Cells (0-2) /HPF Urine Bacteria (None Seen) Hyaline Casts (0-2) /LPF COVID-19 (BLANCA) (Negative) COVID-19 Clin Com 04/02/22 04/02/22 04/02/22 Range/Units 17:24 19:18 19:28 WBC (4.8-10.8) X10*3/uL RBC (4.60-5.80) X10*6/uL Hgb (14.0-18.0) g/dl Hct (42.0-52.0) % MCV (80.0-98.0) fL MCH (27.0-33.0) pg MCHC (31.0-36.0) g/dl RDW (11.0-16.0) % Plt Count (160-400) X10*3/uL MPV (9.4-12.4) fL Immature Gran % (Auto) (0.0-0.4) % Neut % (Auto) (45-73) % Lymph % (Auto) (20-40) % [place] % (Auto) (2-11) % Eos % (Auto) (0-4) % Baso % (Auto) (0-2) % Lymph # (Auto) (1.2-4.9) X10*3/uL [place] # (Auto) (0.1-1.2) X10*3/uL Eos # (Auto) (0.0-0.4) X10*3/uL Baso # (Auto) (0.0-0.2) X10*3/uL Abs Immat Gran (auto) (0.00-0.03) X10*3/uL Absolute Neuts (auto) (2.0-8.3) x10*3/uL Absolute Nucleated RBC (0.0-0.012) X10*3/uL Nucleated RBC % (auto) (0.0-0.2) /100WBC PT (10.0-13.1) SEC INR (0.9-1.1) APTT (26.0-36.4) SEC Sodium (135-145) mmol/L Potassium (3.3-5.1) mmol/L Chloride (96-108) mmol/L Carbon Dioxide (22-29) mmol/L Anion Gap (12-20) BUN (9-16) mg/dL Creatinine (0.5-1.4) mg/dL Estim Creat Clear Calc Estimated GFR POC Glucose 123 H 127 H (60-115) mg/dL Random Glucose (60-115) mg/dL Calcium (8.4-10.2) mg/dL Total Bilirubin (0.0-1.0) mg/dL AST (5-37) U/L ALT (0-40) U/L Alkaline Phosphatase (39-117) U/L Troponin I High Sens (<3.5-35.0) ng/L Total Protein (6.5-8.0) g/dL Albumin (3.5-5.0) g/dL Urine Color Urine Appearance Urine pH (5.0-9.0) Ur Specific [place] (1.005-1.025) Urine Protein (Neg-Trace) mg/dL Urine Glucose (UA) (Negative) mg/dL Urine Ketones (Negative) mg/dL Urine Blood (Negative) Urine Nitrite (Negative) Ur Leukocyte Esterase (Negative) Urine RBC (0-2) /HPF Urine WBC (0-5) /HPF Ur Squamous Epith Cells (0-2) /HPF Urine Bacteria (None Seen) Hyaline Casts (0-2) /LPF COVID-19 (BLANCA) Negative (Negative) COVID-19 Clin Com See Note 04/02/22 04/02/22 04/02/22 Range/Units 19:52 19:52 20:31 WBC (4.8-10.8) X10*3/uL RBC (4.60-5.80) X10*6/uL Hgb (14.0-18.0) g/dl Hct (42.0-52.0) % MCV (80.0-98.0) fL MCH (27.0-33.0) pg MCHC (31.0-36.0) g/dl RDW (11.0-16.0) % Plt Count (160-400) X10*3/uL MPV (9.4-12.4) fL Immature Gran % (Auto) (0.0-0.4) % Neut % (Auto) (45-73) % Lymph % (Auto) (20-40) % [place] % (Auto) (2-11) % Eos % (Auto) (0-4) % Baso % (Auto) (0-2) % Lymph # (Auto) (1.2-4.9) X10*3/uL [place] # (Auto) (0.1-1.2) X10*3/uL Eos # (Auto) (0.0-0.4) X10*3/uL Baso # (Auto) (0.0-0.2) X10*3/uL Abs Immat Gran (auto) (0.00-0.03) X10*3/uL Absolute Neuts (auto) (2.0-8.3) x10*3/uL Absolute Nucleated RBC (0.0-0.012) X10*3/uL Nucleated RBC % (auto) (0.0-0.2) /100WBC PT 10.4 (10.0-13.1) SEC INR 0.9 (0.9-1.1) APTT 33.0 (26.0-36.4) SEC Sodium (135-145) mmol/L Potassium (3.3-5.1) mmol/L Chloride (96-108) mmol/L Carbon Dioxide (22-29) mmol/L Anion Gap (12-20) BUN (9-16) mg/dL Creatinine (0.5-1.4) mg/dL Estim Creat Clear Calc Estimated GFR POC Glucose (60-115) mg/dL Random Glucose (60-115) mg/dL Calcium (8.4-10.2) mg/dL Total Bilirubin (0.0-1.0) mg/dL AST (5-37) U/L ALT (0-40) U/L Alkaline Phosphatase (39-117) U/L Troponin I High Sens < 3.5 (<3.5-35.0) ng/L Total Protein (6.5-8.0) g/dL Albumin (3.5-5.0) g/dL Urine Color Yellow Urine Appearance Clear Urine pH 5.5 (5.0-9.0) Ur Specific [place] 1.015 (1.005-1.025) Urine Protein 300 (3+) H (Neg-Trace) mg/dL Urine Glucose (UA) Negative (Negative) mg/dL Urine Ketones Negative (Negative) mg/dL Urine Blood Negative (Negative) Urine Nitrite Negative (Negative) Ur Leukocyte Esterase Negative (Negative) Urine RBC 0-2 (0-2) /HPF Urine WBC 0-5 (0-5) /HPF Ur Squamous Epith Cells 0-2 (0-2) /HPF Urine Bacteria None Seen (None Seen) Hyaline Casts 0-2 (0-2) /LPF COVID-19 (BLANCA) (Negative) COVID-19 Clin Com 04/02/22 04/02/22 Range/Units 23:04 23:58 WBC (4.8-10.8) X10*3/uL RBC (4.60-5.80) X10*6/uL Hgb (14.0-18.0) g/dl Hct (42.0-52.0) % MCV (80.0-98.0) fL MCH (27.0-33.0) pg MCHC (31.0-36.0) g/dl RDW (11.0-16.0) % Plt Count (160-400) X10*3/uL MPV (9.4-12.4) fL Immature Gran % (Auto) (0.0-0.4) % Neut % (Auto) (45-73) % Lymph % (Auto) (20-40) % [place] % (Auto) (2-11) % Eos % (Auto) (0-4) % Baso % (Auto) (0-2) % Lymph # (Auto) (1.2-4.9) X10*3/uL [place] # (Auto) (0.1-1.2) X10*3/uL Eos # (Auto) (0.0-0.4) X10*3/uL Baso # (Auto) (0.0-0.2) X10*3/uL Abs Immat Gran (auto) (0.00-0.03) X10*3/uL Absolute Neuts (auto) (2.0-8.3) x10*3/uL Absolute Nucleated RBC (0.0-0.012) X10*3/uL Nucleated RBC % (auto) (0.0-0.2) /100WBC PT (10.0-13.1) SEC INR (0.9-1.1) APTT (26.0-36.4) SEC Sodium (135-145) mmol/L Potassium (3.3-5.1) mmol/L Chloride (96-108) mmol/L Carbon Dioxide (22-29) mmol/L Anion Gap (12-20) BUN (9-16) mg/dL Creatinine (0.5-1.4) mg/dL Estim Creat Clear Calc Estimated GFR POC Glucose 128 H (60-115) mg/dL Random Glucose (60-115) mg/dL Calcium (8.4-10.2) mg/dL Total Bilirubin (0.0-1.0) mg/dL AST (5-37) U/L ALT (0-40) U/L Alkaline Phosphatase (39-117) U/L Troponin I High Sens < 3.5 (<3.5-35.0) ng/L Total Protein (6.5-8.0) g/dL Albumin (3.5-5.0) g/dL Urine Color Urine Appearance Urine pH (5.0-9.0) Ur Specific [place] (1.005-1.025) Urine Protein (Neg-Trace) mg/dL Urine Glucose (UA) (Negative) mg/dL Urine Ketones (Negative) mg/dL Urine Blood (Negative) Urine Nitrite (Negative) Ur Leukocyte Esterase (Negative) Urine RBC (0-2) /HPF Urine WBC (0-5) /HPF Ur Squamous Epith Cells (0-2) /HPF Urine Bacteria (None Seen) Hyaline Casts (0-2) /LPF COVID-19 (BLANCA) (Negative) COVID-19 Clin Com ECG Data Interpretation: EKG 1: Normal sinus rhythm. Normal EKG. Ventricular rate 74. You are to the 152. QRS 96. QTC 426. Negative STEMI EKG 2: Normal sinus rhythm. Ventricular rate CT 7. Pr interval 166. QRS 98. QTC 412. Negative STEMI Discharge Plan Discharge Clinical Impression: Hypoglycemia Patient Disposition: Home, Self-Care Instructions: Hypoglycemia in a Person with Diabetes (ED) Additional Instructions: Wallis glucosa fue normal francine toda la visita al servicio de urgencias despu?s de la intervenci?n. El electrocardiograma y el an?lisis de belen resultaron negativos para un ataque al coraz?n. necesitar? un seguimiento con wallis proveedor de atenci?n primaria. La orina de la radiograf?a de t?rax result? negativa para infecci?n. regresar al servicio de urgencias por dolor de quiana, n?useas, v?mitos, fiebre, escalofr?os, debilidad, dificultad para hablar, ca?da facial, p ar?lisis de las extremidades, tos con belen, dolor en el pecho, dificultad para respirar, estado mental alterado, convulsiones, dolor de quiana o cualquier otro problema s?ntomas. Prescriptions: No Action acetaminophen 500 mg tablet 1,000 mg PO Q6H PRN (Reason: fever or pain) 30 Days Qty: 240 2RF Trulicity 3 mg/0.5 mL pen injector 1 mg subcut QWEEK Qty: 2 4RF (DME) FreeStyle Test Strip See Rx Instructions .Route Qty: 150 0RF Rx Instructions: Use 4 test strip once a day (DME) wheelchair electric See Rx Instructions .Route .MEDSUPPLY Qty: 1 0RF Rx Instructions: As directed finasteride 5 mg tablet 5 mg PO DAILY 90 Days Qty: 90 1RF clopidogrel 75 mg Tablet 75 mg PO DAILY Qty: 30 0RF haloperidol 5 mg Tablet 5 mg PO BID Qty: 60 0RF trazodone 50 mg Tablet 50 mg PO BEDTIME Qty: 30 0RF aspirin 81 mg Tablet,Chewable 81 mg PO DAILY Qty: 30 0RF finasteride [Proscar] 5 mg Tablet 5 mg PO DAILY Qty: 30 0RF ergocalciferol (vitamin D2) [Vitamin D2] 1,250 mcg (50,000 unit) capsule 1,250 mcg PO QWEEK atorvastatin 10 mg tablet 10 mg PO DAILY (DME) blood pressure test kit-medium Kit See Rx Instructions .Route Qty: 1 0RF Rx Instructions: As directed clotrimazole 1 % cream 1 appl topical BID 30 Days Qty: 45 0RF alfuzosin 10 mg tablet extended release 24 hr 10 mg PO DAILY 90 Days Qty: 90 1RF Rx Instructions: administer after the same meal each day Interventions: ED Discharge Assessment Last Done: 04/03/22 06:31 Discharge Date/Time: 04/03/22 06:32
[2022-04-02 17:28] LABS: MANUAL DIFF FLAG NO
[2022-04-02] MEDS: Dextrose 5 % and Lactated Ring 1,000 ML 125 ML IVCONT (17:38)
[2022-04-02 17:44] LABS: Basophils Absolute Auto 0.1 X10*3/uL (0.0-0.2); Basophils Percent Auto 0.5 % (0-2); Eosinophils Absolute Auto 0.1 X10*3/uL (0.0-0.4); Eosinophils Percent Auto 1.2 % (0-4); Hemoglobin 10.6 g/dl (14.0-18.0); Imm Gran Abs Auto 0.03 X10*3/uL (0.00-0.03); Imm Gran Pct Auto 0.3 % (0.0-0.4); Lymphocytes Absolute Auto 1.5 X10*3/uL (1.2-4.9); Lymphocytes Percent Auto 15.6 % (20-40); Mean Corpuscular HGB Conc 31.2 g/dl (31.0-36.0); Mean Corpuscular Hemoglobin 26.5 pg (27.0-33.0); Mean Platelet Volume 9.2 fL (9.4-12.4); Monocytes Absolute Auto 0.8 X10*3/uL (0.1-1.2); Monocytes Percent Auto 7.9 % (2-11); Neutrophils Percent Auto 74.5 % (45-73); Platelet Count 463 X10*3/uL (160-400); Red Cell Distribution Width 18.4 % (11.0-16.0); White Blood Count 9.5 X10*3/uL (4.8-10.8)
[2022-04-02 17:48] LABS: Alanine Aminotransferase 106 U/L (0-40); Alkaline Phosphatase 96 U/L (39-117); Anion Gap 17 (12-20); Aspartate Amino Transferase 48 U/L (5-37); Bilirubin Total 0.7 mg/dL (0.0-1.0); Blood Urea Nitrogen 35 mg/dL (9-16); Calcium 8.4 mg/dL (8.4-10.2); Carbon Dioxide 21 mmol/L (22-29); Chloride 108 mmol/L (96-108); Creatinine Clr Calc Pharmacy 51.6; Estimated Glomerular Filt Rate 46; Glucose Random 88 mg/dL (60-115); Potassium 4.7 mmol/L (3.3-5.1); Sodium 141 mmol/L (135-145); Total Protein 7.3 g/dL (6.5-8.0)
[2022-04-02 17:49] LABS: COVID-19 Test Negative (Negative)
[2022-04-02 19:23] LABS: Glucose, Whole Blood 123 mg/dL (60-115)
--- NOTE | 2022-04-02 19:30 | ECG_ITS ---
Test Reason : WEAKNESS Blood Pressure : / mmHG Vent. Rate : 074 BPM Atrial Rate : 074 BPM P-R Int : 152 ms QRS Dur : 096 ms QT Int : 384 ms P-R-T Axes : 054 026 043 degrees QTc Int : 426 ms Normal sinus rhythm Normal ECG When compared with ECG of 08-FEB-2022 22:11, No significant change was found Referred By: Dmitry Lopez Electronically Signed By:MARIA T ST MD
[2022-04-02 19:31] LABS: Glucose, Whole Blood 127 mg/dL (60-115)
[2022-04-02 19:58] VITALS: BP 123/95; PULSE 75; RESP 18; O2SAT 100
[2022-04-02 20:06] LABS: INTERNATIONAL NORM RATIO 0.9 (0.9-1.1); Prothrombin Time 10.4 SEC (10.0-13.1)
[2022-04-02 20:18] LABS: Troponin-I High Sensitivity < 3.5 ng/L (<3.5-35.0)
--- NOTE | 2022-04-02 20:19 | ECG_ITS ---
Test Reason : WEAKNESS Blood Pressure : / mmHG Vent. Rate : 067 BPM Atrial Rate : 067 BPM P-R Int : 166 ms QRS Dur : 098 ms QT Int : 390 ms P-R-T Axes : 034 022 031 degrees QTc Int : 412 ms Normal sinus rhythm Normal ECG When compared with ECG of 02-APR-2022 19:39, No significant change was found Referred By: Dmitry Lopez Electronically Signed By:MARIA T ST MD
[2022-04-02 20:29] VITALS: TEMP 37.1
[2022-04-02 20:52] LABS: Appearance Urine Clear; Color Urine Yellow; Glucose Urine UA Negative (Negative); Leukocyte Esterase Urine Negative (Negative); Nitrite Urine Negative (Negative); PH 5.5 (5.0-9.0); Specific Gravity - Urine 1.015 (1.005-1.025); UMIC TRIGGER UACC YES; Urine Blood Negative (Negative); Urine Ketones Negative (Negative); Urine Protein 300 (3+) mg/dL (Neg-Trace)
[2022-04-02 20:56] LABS: Bacteria Urine None Seen (None Seen); Hyaline Casts Urine 0-2 /LPF (0-2); RBC Urine 0-2 /HPF (0-2); Squamous Epithelial Cell Urine 0-2 /HPF (0-2); WBC Urine 0-5 /HPF (0-5)
[2022-04-02 23:30] LABS: Troponin-I High Sensitivity < 3.5 ng/L (<3.5-35.0)
[2022-04-02 23:54] VITALS: BP 129/76; PULSE 73; RESP 18; TEMP 36.6; O2SAT 97
[2022-04-03 00:03] LABS: Glucose, Whole Blood 128 mg/dL (60-115)
--- NOTE | 2022-04-03 00:55 | PC.NURSE ---
This RN has spoken with Maya Brunson in regards pt being d/c. This RN has called DTNils Solis [phone].
[2022-04-03 01:23] VITALS: BP 131/70; PULSE 69; RESP 16; TEMP 36.7; O2SAT 96
[2022-04-03] MEDS: Acetaminophen 325 MG TABLET 650 MG PO (01:30)
--- NOTE | 2022-04-03 01:30 | PC.NURSE ---
IVF are running slow.
== END 2022-04-03 06:32 | disposition home or self-care (01) ==
PROVIDERS: Physician Assistant; Emergency Provider Student in an Organized Health Care Education/Training Program; PCP Internal Medicine
DX: E11.649 Type 2 diabetes mellitus with hypoglycemia without coma (principal); Z20.822 Contact with and (suspected) exposure to COVID-19; E11.22 Type 2 diabetes mellitus with diabetic chronic kidney disease; N18.30 Chronic kidney disease, stage 3 unspecified; E78.5 Hyperlipidemia, unspecified; Z90.49 Acquired absence of other specified parts of digestive tract; Z79.82 Long term (current) use of aspirin; Z79.02 Long term (current) use of antithrombotics/antiplatelets; Z79.899 Other long term (current) drug therapy; Z79.4 Long term (current) use of insulin
CPT/HCPCS: 36415; 71045; 80053; 81001; 82947; 84484; 85025; 85610; 85730; 87635; 93005; 96365; 96366; 99284; 99285

== ENCOUNTER 2022-04-13 14:26 | Outpatient (REF) | payer OTHER, SELFPAY ==
--- NOTE | ~2022-04-13 | US_ITS ---
EXAMINATION: NONINVASIVE ASSESSMENT OF THE ARTERIES OF BOTH LOWER EXTREMITIES WITH PVR EXAM AND BILATERAL LOWER EXTREMITY DUPLEX Pamela Gannon MD CLINICAL INFORMATION: Peripheral vascular disease TECHNIQUE: Ankle pulse volume recordings, ankle pressure measurements and ankle brachial indices were obtained of the lower extremity arterial system bilaterally in addition to duplex Doppler techniques with wave form analysis and measurement of velocities in the common femoral, profunda femoral, superficial femoral, popliteal and tibial arteries. The study was performed only at rest. COMPARISON: Lower extremity duplex on 09/20/2021 FINDINGS: a) AT REST: RIGHT LE. The right ankle-brachial index is: 1.04 * >0.97-1.25 = normal - no significant arterial disease * 0.75-0.96 = mild peripheral arterial disease * 0.5-0.74 = moderate peripheral arterial disease * <0.50 = severe peripheral arterial disease 2. Right ankle pressure: normal. 3. Right ankle PVR waveform: normal. 4. Right direct duplex Doppler findings: Common femoral artery: 134 cm/s, Multiphasic Profunda femoris artery: 97 cm/s, Multiphasic Superficial femoral artery (proximal): 111 cm/s, Multiphasic Superficial femoral artery (mid): 155 cm/s, Multiphasic Superficial femoral artery (distal): 189 cm/s, Multiphasic Proximal Popliteal artery: 142 cm/s, Multiphasic Mid posterior tibial artery: 20 cm/s, monophasic LEFT LE. The left ankle-brachial index is: 0.93 * >0.97-1.25 = normal - no significant arterial disease * 0.75-0.96 = mild peripheral arterial disease * 0.5-0.74 = moderate peripheral arterial disease * <0.50 = severe peripheral arterial disease 2. Left ankle pressure: normal. 3. Left ankle PVR waveform: normal. 4. Left direct duplex Doppler findings: Common femoral artery: 108 cm/s, Multiphasic Profunda femoris artery: 113 cm/s, Multiphasic Superficial femoral artery (proximal): 93 cm/s, Multiphasic Superficial femoral artery (mid): 90 cm/s, Multiphasic Superficial femoral artery (distal): 90 cm/s, Multiphasic Proximal Popliteal artery: 99 cm/s, Multiphasic Mid posterior tibial artery: 31 cm/s, Multiphasic US/US arterial duplex LE BI IMPRESSION: RIGHT LEG: No hemodynamically significant stenosis in the right lower extremity. LEFT LEG: No hemodynamically significant stenosis in the left lower extremity.
--- NOTE | ~2022-04-13 | US_ITS ---
EXAMINATION: NONINVASIVE ASSESSMENT OF THE ARTERIES OF BOTH LOWER EXTREMITIES WITH PVR EXAM AND BILATERAL LOWER EXTREMITY DUPLEX Pamela Gannon MD CLINICAL INFORMATION: Peripheral vascular disease TECHNIQUE: Ankle pulse volume recordings, ankle pressure measurements and ankle brachial indices were obtained of the lower extremity arterial system bilaterally in addition to duplex Doppler techniques with wave form analysis and measurement of velocities in the common femoral, profunda femoral, superficial femoral, popliteal and tibial arteries. The study was performed only at rest. COMPARISON: Lower extremity duplex on 09/20/2021 FINDINGS: a) AT REST: RIGHT LE. The right ankle-brachial index is: 1.04 * >0.97-1.25 = normal - no significant arterial disease * 0.75-0.96 = mild peripheral arterial disease * 0.5-0.74 = moderate peripheral arterial disease * <0.50 = severe peripheral arterial disease 2. Right ankle pressure: normal. 3. Right ankle PVR waveform: normal. 4. Right direct duplex Doppler findings: Common femoral artery: 134 cm/s, Multiphasic Profunda femoris artery: 97 cm/s, Multiphasic Superficial femoral artery (proximal): 111 cm/s, Multiphasic Superficial femoral artery (mid): 155 cm/s, Multiphasic Superficial femoral artery (distal): 189 cm/s, Multiphasic Proximal Popliteal artery: 142 cm/s, Multiphasic Mid posterior tibial artery: 20 cm/s, monophasic LEFT LE. The left ankle-brachial index is: 0.93 * >0.97-1.25 = normal - no significant arterial disease * 0.75-0.96 = mild peripheral arterial disease * 0.5-0.74 = moderate peripheral arterial disease * <0.50 = severe peripheral arterial disease 2. Left ankle pressure: normal. 3. Left ankle PVR waveform: normal. 4. Left direct duplex Doppler findings: Common femoral artery: 108 cm/s, Multiphasic Profunda femoris artery: 113 cm/s, Multiphasic Superficial femoral artery (proximal): 93 cm/s, Multiphasic Superficial femoral artery (mid): 90 cm/s, Multiphasic Superficial femoral artery (distal): 90 cm/s, Multiphasic Proximal Popliteal artery: 99 cm/s, Multiphasic Mid posterior tibial artery: 31 cm/s, Multiphasic US/US BETO complete IMPRESSION: RIGHT LEG: No hemodynamically significant stenosis in the right lower extremity. LEFT LEG: No hemodynamically significant stenosis in the left lower extremity.
== END 2022-04-13 14:27 | disposition home or self-care (01) ==
LOC: HO.US 14:26
PROVIDERS: Visit Provider Surgery Vascular Surgery
DX: I73.9 Peripheral vascular disease, unspecified (principal)
CPT/HCPCS: 93923; 93925

== ENCOUNTER → 2022-04-20 11:07 | Outpatient (BNVA) | payer OTHER, SELFPAY | PROVIDERS: PCP Internal Medicine; Visit Provider Physician Assistant Surgical | DX: E66.9 Obesity, unspecified (principal); Z68.30 Body mass index [BMI] 30.0-30.9, adult; Z98.84 Bariatric surgery status | CPT/HCPCS: 99212 ==

== ENCOUNTER → 2022-05-10 13:26 | Outpatient (BNVA) | payer OTHER, SELFPAY | PROVIDERS: PCP Internal Medicine; Visit Provider Surgery Vascular Surgery | DX: I73.9 Peripheral vascular disease, unspecified (principal); E11.22 Type 2 diabetes mellitus with diabetic chronic kidney disease; E11.42 Type 2 diabetes mellitus with diabetic polyneuropathy; E11.65 Type 2 diabetes mellitus with hyperglycemia; E11.3399 Type 2 diabetes mellitus with moderate nonproliferative diabetic retinopathy without macular edema, unspecified eye; N18.32 Chronic kidney disease, stage 3b; D63.1 Anemia in chronic kidney disease; Z79.4 Long term (current) use of insulin | CPT/HCPCS: 99212 ==

== ENCOUNTER → 2022-06-07 14:24 | Outpatient (BNVA) | payer OTHER, SELFPAY | PROVIDERS: PCP Internal Medicine; Visit Provider Internal Medicine | DX: G47.33 Obstructive sleep apnea (adult) (pediatric) (principal); J30.9 Allergic rhinitis, unspecified | CPT/HCPCS: 99212 ==

== ENCOUNTER 2022-06-17 08:29 | Outpatient (REF) | payer OTHER, SELFPAY ==
[2022-06-17 10:25] LABS: MANUAL DIFF FLAG NO
[2022-06-17 10:43] LABS: Basophils Absolute Auto 0.1 X10*3/uL (0.0-0.2); Basophils Percent Auto 0.7 % (0-2); Eosinophils Absolute Auto 0.4 X10*3/uL (0.0-0.4); Eosinophils Percent Auto 3.5 % (0-4); Hematocrit 35.3 % (42.0-52.0); Hemoglobin 11.6 g/dl (14.0-18.0); Imm Gran Abs Auto 0.03 X10*3/uL (0.00-0.03); Imm Gran Pct Auto 0.3 % (0.0-0.4); Lymphocytes Absolute Auto 1.9 X10*3/uL (1.2-4.9); Lymphocytes Percent Auto 18.9 % (20-40); Mean Corpuscular HGB Conc 32.9 g/dl (31.0-36.0); Mean Corpuscular Hemoglobin 28.6 pg (27.0-33.0); Mean Corpuscular Volume 87.2 fL (80.0-98.0); Mean Platelet Volume 9.2 fL (9.4-12.4); Monocytes Absolute Auto 0.7 X10*3/uL (0.1-1.2); Monocytes Percent Auto 7.1 % (2-11); Neutrophils Absolute Auto 6.9 x10*3/uL (2.0-8.3); Neutrophils Percent Auto 69.5 % (45-73); Platelet Count 449 X10*3/uL (160-400); Red Blood Count 4.05 X10*6/uL (4.60-5.80); Red Cell Distribution Width 16.3 % (11.0-16.0)
[2022-06-17 11:11] LABS: Estimated Average Glucose 108 mg/dL; Hemoglobin A1c % 5.4 %
[2022-06-17 11:34] LABS: Vitamin D 25-OH Total 21.4 ng/mL (>30)
[2022-06-17 11:44] LABS: Alanine Aminotransferase 66 U/L (0-40); Albumin Level 3.1 g/dL (3.5-5.0); Alkaline Phosphatase 104 U/L (39-117); Anion Gap 10 (12-20); Aspartate Amino Transferase 36 U/L (5-37); Bilirubin Total 0.6 mg/dL (0.0-1.0); Blood Urea Nitrogen 23 mg/dL (9-16); C Reactive Protein < 0.10 mg/dL (< or = 0.50); Calcium 8.2 mg/dL (8.4-10.2); Carbon Dioxide 28 mmol/L (22-29); Chloride 104 mmol/L (96-108); Cholesterol 91 mg/dL; Estimated Glomerular Filt Rate 50; Glucose Random 135 mg/dL (60-115); HDL Cholesterol 20 mg/dL; Iron 45 mcg/dL (45-160); LDL Cholesterol Calculated 48 mg/dl; Percent Iron Saturation 20 % (15-50); Potassium 4.3 mmol/L (3.3-5.1); Sodium 138 mmol/L (135-145); Total Iron Binding Capacity 229 mcg/dL (228-428); Total Protein 6.2 g/dL (6.5-8.0); Triglycerides 116 mg/dL; Unsaturated Iron Binding 184 ug/dL
[2022-06-17 11:49] LABS: Vitamin B12 744 pg/mL (200-900)
[2022-06-17 11:59] LABS: Ferritin 10 ng/mL (20-250); Insulin 8 uU/mL (2-29); TSH reflex Free T4 1.63 uIU/mL (0.32-4.0)
[2022-06-20 16:29] LABS: Calcium (PTHI) 8.6 mg/dL (8.6-10.3); PTHI 85 pg/mL (16-77)
[2022-06-21 15:59] LABS: Zinc 72 mcg/dL (60-130)
[2022-06-22 08:58] LABS: Vitamin A 49 mcg/dL (38-98)
[2022-06-22 16:08] LABS: Vitamin B1 26 nmol/L (8-30)
== END 2022-06-17 08:30 | disposition home or self-care (01) ==
LOC: HO.10HDL 08:29
PROVIDERS: Internal Medicine Endocrinology, Diabetes & Metabolism; Visit Provider Physician Assistant Surgical
DX: E11.42 Type 2 diabetes mellitus with diabetic polyneuropathy (principal); E55.9 Vitamin D deficiency, unspecified; Z98.84 Bariatric surgery status; E78.5 Hyperlipidemia, unspecified
CPT/HCPCS: 36415; 80053; 80061; 82306; 82607; 82728; 82746; 83036; 83525; 83540; 83970; 84425; 84443; 84590; 84630; 85025; 86140

== ENCOUNTER → 2022-06-27 08:10 | Outpatient (BNVA) | payer OTHER, SELFPAY | PROVIDERS: PCP Internal Medicine; Visit Provider Psychiatry & Neurology Neurology | DX: R41.89 Other symptoms and signs involving cognitive functions and awareness (principal); R46.89 Other symptoms and signs involving appearance and behavior; R51.9 Headache, unspecified | CPT/HCPCS: 99202 ==

== ENCOUNTER 2022-07-11 12:43 | Outpatient (RCR) | payer OTHER, SELFPAY | END 2022-09-23 16:00 | disposition home or self-care (01) | LOC: HO.WCC 12:43 | PROVIDERS: PCP Internal Medicine; Visit Provider Physician Assistant | DX: E11.621 Type 2 diabetes mellitus with foot ulcer (principal); L97.512 Non-pressure chronic ulcer of other part of right foot with fat layer exposed; E11.22 Type 2 diabetes mellitus with diabetic chronic kidney disease; N18.9 Chronic kidney disease, unspecified; E11.40 Type 2 diabetes mellitus with diabetic neuropathy, unspecified; L84 Corns and callosities; Z79.4 Long term (current) use of insulin; Z96.41 Presence of insulin pump (external) (internal) | CPT/HCPCS: 11042; 15275; Q4101 ==

== ENCOUNTER 2022-07-15 09:51 | Outpatient (REF) | payer OTHER, SELFPAY ==
--- NOTE | ~2022-07-15 | MR_ITS ---
EXAMINATION: MRI OF THE BRAIN WITHOUT CONTRAST CLINICAL INFORMATION: The patient states memory loss. COMPARISON: CT scan of the head 01/10/2022. TECHNIQUE: MRI of the brain was obtained using routine sequences without contrast. FINDINGS: No diffusion abnormalities are identified to suggest an acute or subacute infarct. No mass effect or midline shift is seen. The ventricles and sulci are slightly commensurately prominent. There are a few isolated foci of hyperintense T2 and FLAIR signal in the periventricular and subcortical white matter which are most consistent with mild chronic microvascular ischemic changes. No extra-axial fluid collections are seen. The brainstem and cerebellum are normal. No pathologic magnetic susceptibility artifact is identified on the gradient refocused acquisition. The craniovertebral junction, marrow signal, and midline structures are normal. The major intracranial flow-voids at the level of the [place] are preserved. The dural venous sinus flow-voids are maintained. There have been bilateral lens extractions. There are moderate bilateral mastoid air cell effusions. There is mucoperiosteal thickening the bilateral ethmoid sinuses. MR/MR head/brain wo con IMPRESSION: 1. There are no acute bleeds or territorial infarcts. No masses are demonstrated. 2. There are mild chronic microvascular ischemic changes and diffuse volume loss.
== END 2022-07-15 09:52 | disposition home or self-care (01) ==
LOC: HO.MRI 09:51
PROVIDERS: Visit Provider Psychiatry & Neurology Neurology
DX: R41.89 Other symptoms and signs involving cognitive functions and awareness (principal); R46.89 Other symptoms and signs involving appearance and behavior; R51.9 Headache, unspecified
CPT/HCPCS: 70551

== ENCOUNTER 2022-08-15 10:48 | Outpatient (REF) | payer OTHER, SELFPAY ==
[2022-08-15 12:15] LABS: Hemoglobin 12.4 g/dl (14.0-18.0); Mean Corpuscular HGB Conc 33.5 g/dl (31.0-36.0); Mean Corpuscular Hemoglobin 29.7 pg (27.0-33.0); Mean Corpuscular Volume 88.5 fL (80.0-98.0); Platelet Count 407 X10*3/uL (160-400); Red Blood Count 4.18 X10*6/uL (4.60-5.80); Red Cell Distribution Width 16.7 % (11.0-16.0); White Blood Count 11.3 X10*3/uL (4.8-10.8)
[2022-08-15 12:57] LABS: Anion Gap 12 (12-20); Blood Urea Nitrogen 24 mg/dL (9-16); Calcium 8.3 mg/dL (8.4-10.2); Carbon Dioxide 25 mmol/L (22-29); Chloride 107 mmol/L (96-108); Estimated Glomerular Filt Rate 51; Glucose Random 145 mg/dL (60-115); Potassium 4.1 mmol/L (3.3-5.1); Sodium 140 mmol/L (135-145)
[2022-08-15 13:00] LABS: Erythrocyte Sedimentation Rate 10 MM/HR (0-15)
[2022-08-15 13:22] LABS: Folate 13.1 ng/mL (> or = 4.0); TSH reflex Free T4 2.75 uIU/mL (0.32-4.0); Vitamin B12 513 pg/mL (200-900)
== END 2022-08-15 10:49 | disposition home or self-care (01) ==
LOC: HO.LAB 10:48
PROVIDERS: Absent Provider Psychiatry & Neurology Neurology; PCP Internal Medicine; Visit Provider Internal Medicine Hypertension Specialist
DX: R41.89 Other symptoms and signs involving cognitive functions and awareness (principal); R46.89 Other symptoms and signs involving appearance and behavior; R51.9 Headache, unspecified; N18.30 Chronic kidney disease, stage 3 unspecified
CPT/HCPCS: 36415; 80048; 82607; 82746; 84443; 85027; 85652

== ENCOUNTER 2022-08-18 15:00 | Inpatient (IN) | payer OTHER, SELFPAY ==
[2022-08-18] VITALS (11 sets, daily range): BP systolic 65–142; BP diastolic 40–84; PULSE 69–85; RESP 14–18; TEMP 36.1–37.2; O2SAT 98–100; BMI 27.5
--- NOTE | ~2022-08-18 | XR_ITS ---
EXAMINATION: XR CHEST CLINICAL INFORMATION: Weakness COMPARISON: None available. TECHNIQUE: Frontal view of the chest was obtained. FINDINGS: No significant abnormality is noted involving the heart, lungs, mediastinum, bony thorax or soft tissues. XR/XR chest 1V IMPRESSION: Unremarkable chest examination.
--- NOTE | 2022-08-18 15:08 | ECG_ITS ---
Test Reason : weakness Blood Pressure : / mmHG Vent. Rate : 079 BPM Atrial Rate : 079 BPM P-R Int : 142 ms QRS Dur : 086 ms QT Int : 376 ms P-R-T Axes : 063 023 034 degrees QTc Int : 431 ms Sinus rhythm with occasional Premature ventricular complexes Otherwise normal ECG When compared with ECG of 02-APR-2022 21:17, Premature ventricular complexes are now Present Referred By: Jorden Simmons Electronically Signed By:FILOMENA MEZA MD
--- NOTE | 2022-08-18 15:09 | ED_ITS ---
HPI - General Adult General Chief complaint: Recheck/Abnormal Lab/Rx <Jorden Simmons - Last Filed: 08/18/22 15:11> Stated complaint: low bp sent from drs office <Jorden Simmons - Last Filed: 08/18/22 15:11> Time Seen by Provider: 08/18/22 16:13 <Jorden Simmons - Last Filed: 08/18/22 15:11> Source: patient and manager case management <Kerrie Kerns MD - Last Filed: 08/18/22 20:48> Mode of arrival: ambulatory <Kerrie Kerns MD - Last Filed: 08/18/22 20:48> Limitations: no limitations <Kerrie Kerns MD - Last Filed: 08/18/22 20:48> History of Present Illness HPI narrative: A 57-year-old male came in from the [employer] [employer] [facility] for evaluation of hypotension. Patient found to be hypotensive at the [employer] [employer] office, patient complains of dizziness for the past month more so when he changes position especially from laying flat to standing. Patient patient with chronic renal insufficiency stage III not on dialysis, still produce urine. Otherwise patient has no fever, no chills, no nausea, no vomiting, no diarrhea, patient stated that he drinks 2-3 bottles of water every day with urine production. Patient has no abdominal pain, no bleeding. <Kerrie Kerns MD - Last Filed: 08/18/22 20:48> Related Data Home medications: Home Medications Medication Instructions Recorded Confirmed atorvastatin 10 mg tablet 10 mg PO DAILY 03/23/22 05/03/22 ergocalciferol (vitamin D2) 1,250 1,250 mcg PO QWEEK 03/23/22 05/03/22 mcg (50,000 unit) capsule (Vitamin D2) alfuzosin 10 mg tablet,extended 10 mg PO DAILY 04/20/22 05/03/22 release 24 hr epoetin bryce-epbx 40,000 unit/mL unit IV 06/27/22 06/27/22 injection solution (Retacrit) Previous Rx's Medication Instructions Recorded aspirin 81 mg chewable tablet 81 mg PO DAILY #30 tabs 02/11/22 clopidogrel 75 mg tablet 75 mg PO DAILY #30 tabs 02/11/22 haloperidol 5 mg tablet 5 mg PO BID #60 tabs 02/11/22 acetaminophen 500 mg tablet 1,000 mg PO Q6H PRN fever or pain 02/21/22 30 days #240 tabs dulaglutide 3 mg/0.5 mL 1 mg (0.1667 mL) subcut QWEEK #2 mL 03/09/22 subcutaneous pen injector (TrulicOpenChime) blood sugar diagnostic (FreeStyle #150 ea 03/21/22 Test strips) blood pressure test kit-medium #1 ea 03/23/22 clotrimazole 1 % topical cream 1 appl topical BID 30 days #45 03/23/22 grams wheelchair electric #1 ea 04/02/22 trazodone 50 mg tablet 50 mg PO BEDTIME #30 tabs 04/29/22 <Jorden Simmons - Last Filed: 08/18/22 15:11> Allergies/adverse reactions: Allergies Allergy/AdvReac Type Severity Reaction Status Date / Time Sulfa (Sulfonamide Allergy Intermediate hives Verified 08/18/22 15:07 Antibiotics) [SULFA (SULFONAMIDE ANTIBIOTICS)] <Jorden Simmons - Last Filed: 08/18/22 15:11> Review of Systems 2 Review of Systems: All other systems are reviewed and are negative Constitutional: Reports as per HPI and Reports no additional constitutional complaints Eyes: Reports as per HPI and Reports no additional eye complaints Reports system reviewed and no additional complaints, except as documented Cardiovascular: Reports as per HPI and Reports no additional cardiovascular complaints Respiratory: Reports as per HPI and Reports no additional respiratory complaints Gastrointestinal: Reports as per HPI and Reports no additional gastrointestinal complaints Genitourinary: Reports no additional female genitourinary complaints Musculoskeletal: Reports no additional musculoskeletal complaints Skin/Breast: Reports system reviewed and no additional complaints, except as docu Psychiatric: Reports no additional psychiatric complaints Endocrine: Reports no additional endocrine complaints Hematologic/Lymphatic: Reports no additional hematologic/lymphatic complaints Allergic/Immunologic: Reports no additional allergic/immunologic complaints Reports system reviewed and no additional complaints, except as documented and Reports Abnormal speech present <Kerrie Kerns MD - Last Filed: 08/18/22 20:48> [facility] Past Medical History Medical History: Medical History Anemia Anemia in chronic kidney disease CKD (chronic kidney disease) CKD (chronic kidney disease) stage 3, GFR 30-59 ml/min CKD stage G3b/A2, GFR 30-44 and albumin creatinine ratio 30-299 mg/g Diabetes type 2, uncontrolled Diabetic polyneuropathy associated with type 2 diabetes mellitus Dyslipidemia Foot osteomyelitis, right Headache 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 deficiency Left knee pain Microalbuminuria Moderate non-proliferative diabetic retinopathy Morbid obesity NEEMA on CPAP Osteomyelitis PAD (peripheral artery disease) Patellofemoral arthritis of left knee [id number] syndrome Right foot pain Vitamin D deficiency <Jorden Simmons - Last Filed: 08/18/22 15:11> Surgical History: Surgical History History of eye surgery 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 History of tonsillectomy and adenoidectomy Hx laparoscopic cholecystectomy S/P cataract surgery S/P debridement S/P tooth extraction Status post amputation of toe <Jorden Simmons - Last Filed: 08/18/22 15:11> Family History Family History: Family History Father Cerebral aneurysm CVD (cardiovascular disease) Stroke Mother DM (diabetes mellitus) Stroke Brother No problems noted. Brother No problems noted. Son No problems noted. Daughter In good health Maternal Grandmother DM (diabetes mellitus) Stroke <Jorden Simmons - Last Filed: 08/18/22 15:11> Social History Social History: Social History Household Members: None Housing: Apartment Do you presently have visiting nurse or other home services: No Unable to assess alcohol history related to: Unknown Alcohol intake: never Patient Tobacco Use Status: Never used Tobacco e-Cigarette/Vaping Use: Never Used Second Hand Smoke Exposure: No Substance Use Type: Marijuana Advance Directives: No Advance Directives Information Provided: Yes service: No Current occupational status: disabled Sexual orientation: Did not discuss. Cognitive needs: No Hearing needs: No Vision needs: Yes <Jorden Simmons - Last Filed: 08/18/22 15:11> Physical Exam ED Vital Signs: Vital Signs - 24 hr 08/18/22 15:05 08/18/22 15:57 08/18/22 15:58 Temperature 97 F Pulse Rate 83 69 77 Respiratory Rate 16 Blood Pressure 89/52 L 104/60 75/45 L Pulse Oximetry 99 Oxygen Delivery Method Room Air 08/18/22 15:58 08/18/22 15:59 08/18/22 17:16 Temperature 99.0 F Pulse Rate 83 70 75 Respiratory Rate 17 16 Blood Pressure 65/40 L 120/56 L 121/58 L Pulse Oximetry 100 98 Oxygen Delivery Method Room Air Room Air 08/18/22 17:56 08/18/22 18:35 08/18/22 18:35 Temperature 97.6 F Pulse Rate 70 74 77 Respiratory Rate 16 Blood Pressure 125/62 141/66 H 96/53 L Pulse Oximetry 99 Oxygen Delivery Method Room Air 08/18/22 18:36 08/18/22 20:34 Temperature 98.6 F Pulse Rate 77 71 Respiratory Rate 14 Blood Pressure 92/53 L 142/71 H Pulse Oximetry 99 Oxygen Delivery Method Room Air BMI result Body Mass Index 27.5 <Jorden Simmons - Last Filed: 08/18/22 15:11> Vital Signs - 24 hr 08/18/22 15:05 08/18/22 15:57 08/18/22 15:58 Temperature 97 F Pulse Rate 83 69 77 Respiratory Rate 16 Blood Pressure 89/52 L 104/60 75/45 L Pulse Oximetry 99 Oxygen Delivery Method Room Air 08/18/22 15:58 08/18/22 15:59 08/18/22 17:16 Temperature 99.0 F Pulse Rate 83 70 75 Respiratory Rate 17 16 Blood Pressure 65/40 L 120/56 L 121/58 L Pulse Oximetry 100 98 Oxygen Delivery Method Room Air Room Air 08/18/22 17:56 08/18/22 18:35 08/18/22 18:35 Temperature 97.6 F Pulse Rate 70 74 77 Respiratory Rate 16 Blood Pressure 125/62 141/66 H 96/53 L Pulse Oximetry 99 Oxygen Delivery Method Room Air 08/18/22 18:36 08/18/22 20:34 Temperature 98.6 F Pulse Rate 77 71 Respiratory Rate 14 Blood Pressure 92/53 L 142/71 H Pulse Oximetry 99 Oxygen Delivery Method Room Air BMI result Body Mass Index 27.5 Vital signs have been reviewed as appeared to be correct. Blood pressure low. Heart rate normal. Respiration rate normal. Temperature normal. Oxygen saturation normal. <Kerrie Kerns MD - Last Filed: 08/18/22 20:48> Appearance: Alert. Oriented X3. No acute distress. Head: Normal external exam. Normocephalic. Atraumatic. No [place] signs noted. No raccoon eyes noted Eyes: PERRLA. EOMI. Conjunctiva and sclera normal. Eyelids normal. ENT: TM's Normal. Pharynx normal. Uvula midline. Moist mucous membranes. No trismus noted. No drooling noted. No muffled voice noted. Neck: Normal inspection. Neck supple. FROM. No adenopathy. Thyroid Normal. No meningeal signs. No neck mass noted. CVS: Normal heart rate and rhythm. Heart sound normal. No murmurs noted. Pulses normal throughout. Respiratory: No respiratory distress. Painless inspiration. Breath sounds normal. No wheezes/rales/rhonchi noted. Chest nontender. No accessory muscle usage noted or decreased air movement noted. Abdomen: Soft and nontender. Bowel sounds normal in all 4 quadrants. No distention noted. No organomegaly noted. No visible injury noted. Back: No CVA tenderness. Full range of motion noted. Skin: Skin warm and dry. Normal skin color. Normal skin turgor. No rashes/lesions/lacerations noted. Extremities: No lower extremity edema. Extremities exhibit normal range of motion. Extremities nontender. Neuro: Oriented X 3. Cranial nerve exam: II-XII are grossly intact No motor deficit. No sensory deficit. Reflexes normal. <Kerrie Kerns MD - Last Filed: 08/18/22 20:48> Course Course Course Narrative: 57-year-old male past medical history significant for chronic kidney disease not on dialysis, bipolar disorder, diabetes, mood disorder, sleep apnea, peripheral disease, anemia presenting for evaluation of hypotension. Patient presents from an adjacent office building rehab appointment with his [employer]. It is unclear why he was being seen. The patient only complains of dizziness and weakness x1 month. Denies any fevers or pain <Jorden Simmons - Last Filed: 08/18/22 15:11> Reevaluation(s) Reevaluation #1: 57-year-old male with CKD stage III not on dialysis yet came in for evaluation of dizziness with changing position, patient found to be orthostatic hypotensive, patient received 2 L of fluid with no improvement patient's s ymptoms. <Kerrie Kerns MD - Last Filed: 08/18/22 20:48> Time: 20:46 <Kerrie Kerns MD - Last Filed: 08/18/22 20:48> Medications Administered Discontinued Medications Generic Name Dose Route Start Last Admin Trade Name Freq PRN Reason Stop Dose Admin Sodium Chloride 1,000 mls @ 999 mls/hr 08/18/22 17:15 08/18/22 18:59 Ns IV 08/18/22 18:15 Infused .Q1H1M SKYLAR Infusion Sodium Chloride 1,000 mls @ 999 mls/hr 08/18/22 18:53 08/18/22 18:59 Ns IV 08/18/22 19:53 999 mls/hr .Q1H1M ONE Administration <Jorden Simmons - Last Filed: 08/18/22 15:11> Medications Administered Discontinued Medications Generic Name Dose Route Start Last Admin Trade Name Freq PRN Reason Stop Dose Admin Sodium Chloride 1,000 mls @ 999 mls/hr 08/18/22 17:15 08/18/22 18:59 Ns IV 08/18/22 18:15 Infused .Q1H1M SKYLAR Infusion Sodium Chloride 1,000 mls @ 999 mls/hr 08/18/22 18:53 08/18/22 18:59 Ns IV 08/18/22 19:53 999 mls/hr .Q1H1M ONE Administration <Kerrie Kerns MD - Last Filed: 08/18/22 20:48> Medical Decision Making Differential Diagnosis Differential Diagnoses: The differential diagnosis associated with the presentation includes (Dehydration, hypovolemia, UTI, infection.) <Kerrie Kerns MD - Last Filed: 08/18/22 20:48> Admission/Observation Consideration of admission/observation: Escalation of care including admission/observation considered <Kerrie Kerns MD - Last Filed: 08/18/22 20:48> Consult Healthcare Provider Management of the patient was discussed with: Hospitalist <Kerrie Kerns MD - Last Filed: 08/18/22 20:48> Dr. Francois <Kerrie Kerns MD - Last Filed: 08/18/22 20:48> Lab Data MDM Lab Attestation statement: I reviewed the patient's lab results. <Kerrie Kerns MD - Last Filed: 08/18/22 20:48> Result Diagrams: 08/18/22 15:21 08/18/22 15:21 <Jorden Simmons - Last Filed: 08/18/22 15:11> Labs: Lab Results 08/18/22 08/18/22 08/18/22 Range/Units 15:21 15:21 15:21 WBC 10.5 (4.8-10.8) X10*3/uL RBC 3.78 L (4.60-5.80) X10*6/uL Hgb 11.2 L (14.0-18.0) g/dl Hct 33.7 L (42.0-52.0) % MCV 89.2 (80.0-98.0) fL MCH 29.6 (27.0-33.0) pg MCHC 33.2 (31.0-36.0) g/dl RDW 16.5 H (11.0-16.0) % Plt Count 393 (160-400) X10*3/uL MPV 8.9 L (9.4-12.4) fL Immature Gran % (Auto) 0.3 (0.0-0.4) % Neut % (Auto) 65.0 (45-73) % Lymph % (Auto) 22.4 (20-40) % [place] % (Auto) 9.4 (2-11) % Eos % (Auto) 2.4 (0-4) % Baso % (Auto) 0.5 (0-2) % Lymph # (Auto) 2.4 (1.2-4.9) X10*3/uL [place] # (Auto) 1.0 (0.1-1.2) X10*3/uL Eos # (Auto) 0.3 (0.0-0.4) X10*3/uL Baso # (Auto) 0.1 (0.0-0.2) X10*3/uL Abs Immat Gran (auto) 0.03 (0.00-0.03) X10*3/uL Absolute Neuts (auto) 6.8 (2.0-8.3) x10*3/uL Absolute Nucleated RBC 0.000 (0.0-0.012) X10*3/uL Nucleated RBC % (auto) 0.0 (0.0-0.2) /100WBC Sodium 141 (135-145) mmol/L Potassium 4.1 (3.3-5.1) mmol/L Chloride 108 (96-108) mmol/L Carbon Dioxide 24 (22-29) mmol/L Anion Gap 13 (12-20) BUN 24 H (9-16) mg/dL Creatinine 1.51 H (0.5-1.4) mg/dL Estim Creat Clear Calc 51.4 Estimated GFR 48 Random Glucose 131 H (60-115) mg/dL Calcium 8.1 L (8.4-10.2) mg/dL Total Bilirubin 0.9 (0.0-1.0) mg/dL AST 27 (5-37) U/L ALT 53 H (0-40) U/L Alkaline Phosphatase 88 (39-117) U/L Total Protein 5.9 L (6.5-8.0) g/dL Albumin 3.2 L (3.5-5.0) g/dL Lipase 19 (8-78) U/L Urine Color Urine Appearance Urine pH (5.0-9.0) Ur Specific [place] (1.005-1.025) Urine Protein (Neg-Trace) mg/dL Urine Glucose (UA) (Negative) mg/dL Urine Ketones (Negative) mg/dL Urine Blood (Negative) Urine Nitrite (Negative) Ur Leukocyte Esterase (Negative) Urine RBC (0-2) /HPF Urine WBC (0-5) /HPF Ur Squamous Epith Cells (0-2) /HPF Urine Bacteria (None Seen) Hyaline Casts (0-2) /LPF Influenza Type A (PCR) NEGATIVE (Negative) Influenza Type B (PCR) NEGATIVE (Negative) RSV RNA Qual (PCR) NEGATIVE (Negative) SARS-CoV-2 RNA (RT-PCR) NEGATIVE (Negative) 08/18/22 Range/Units 19:28 WBC (4.8-10.8) X10*3/uL RBC (4.60-5.80) X10*6/uL Hgb (14.0-18.0) g/dl Hct (42.0-52.0) % MCV (80.0-98.0) fL MCH (27.0-33.0) pg MCHC (31.0-36.0) g/dl RDW (11.0-16.0) % Plt Count (160-400) X10*3/uL MPV (9.4-12.4) fL Immature Gran % (Auto) (0.0-0.4) % Neut % (Auto) (45-73) % Lymph % (Auto) (20-40) % [place] % (Auto) (2-11) % Eos % (Auto) (0-4) % Baso % (Auto) (0-2) % Lymph # (Auto) (1.2-4.9) X10*3/uL [place] # (Auto) (0.1-1.2) X10*3/uL Eos # (Auto) (0.0-0.4) X10*3/uL Baso # (Auto) (0.0-0.2) X10*3/uL Abs Immat Gran (auto) (0.00-0.03) X10*3/uL Absolute Neuts (auto) (2.0-8.3) x10*3/uL Absolute Nucleated RBC (0.0-0.012) X10*3/uL Nucleated RBC % (auto) (0.0-0.2) /100WBC Sodium (135-145) mmol/L Potassium (3.3-5.1) mmol/L Chloride (96-108) mmol/L Carbon Dioxide (22-29) mmol/L Anion Gap (12-20) BUN (9-16) mg/dL Creatinine (0.5-1.4) mg/dL Estim Creat Clear Calc Estimated GFR Random Glucose (60-115) mg/dL Calcium (8.4-10.2) mg/dL Total Bilirubin (0.0-1.0) mg/dL AST (5-37) U/L ALT (0-40) U/L Alkaline Phosphatase (39-117) U/L Total Protein (6.5-8.0) g/dL Albumin (3.5-5.0) g/dL Lipase (8-78) U/L Urine Color Yellow Urine Appearance Clear Urine pH 5.5 (5.0-9.0) Ur Specific [place] 1.015 (1.005-1.025) Urine Protein 100 (2+) H (Neg-Trace) mg/dL Urine Glucose (UA) Negative (Negative) mg/dL Urine Ketones Negative (Negative) mg/dL Urine Blood Negative (Negative) Urine Nitrite Negative (Negative) Ur Leukocyte Esterase Negative (Negative) Urine RBC 0-2 (0-2) /HPF Urine WBC 0-5 (0-5) /HPF Ur Squamous Epith Cells 0-2 (0-2) /HPF Urine Bacteria None Seen (None Seen) Hyaline Casts 0-2 (0-2) /LPF Influenza Type A (PCR) (Negative) Influenza Type B (PCR) (Negative) RSV RNA Qual (PCR) (Negative) SARS-CoV-2 RNA (RT-PCR) (Negative) <Jorden Simmnos - Last Filed: 08/18/22 15:11> Lab Results 08/18/22 08/18/22 08/18/22 Range/Units 15:21 15:21 15:21 WBC 10.5 (4.8-10.8) X10*3/uL RBC 3.78 L (4.60-5.80) X10*6/uL Hgb 11.2 L (14.0-18.0) g/dl Hct 33.7 L (42.0-52.0) % MCV 89.2 (80.0-98.0) fL MCH 29.6 (27.0-33.0) pg MCHC 33.2 (31.0-36.0) g/dl RDW 16.5 H (11.0-16.0) % Plt Count 393 (160-400) X10*3/uL MPV 8.9 L (9.4-12.4) fL Immature Gran % (Auto) 0.3 (0.0-0.4) % Neut % (Auto) 65.0 (45-73) % Lymph % (Auto) 22.4 (20-40) % [place] % (Auto) 9.4 (2-11) % Eos % (Auto) 2.4 (0-4) % Baso % (Auto) 0.5 (0-2) % Lymph # (Auto) 2.4 (1.2-4.9) X10*3/uL [place] # (Auto) 1.0 (0.1-1.2) X10*3/uL Eos # (Auto) 0.3 (0.0-0.4) X10*3/uL Baso # (Auto) 0.1 (0.0-0.2) X10*3/uL Abs Immat Gran (auto) 0.03 (0.00-0.03) X10*3/uL Absolute Neuts (auto) 6.8 (2.0-8.3) x10*3/uL Absolute Nucleated RBC 0.000 (0.0-0.012) X10*3/uL Nucleated RBC % (auto) 0.0 (0.0-0.2) /100WBC Sodium 141 (135-145) mmol/L Potassium 4.1 (3.3-5.1) mmol/L Chloride 108 (96-108) mmol/L Carbon Dioxide 24 (22-29) mmol/L Anion Gap 13 (12-20) BUN 24 H (9-16) mg/dL Creatinine 1.51 H (0.5-1.4) mg/dL Estim Creat Clear Calc 51.4 Estimated GFR 48 Random Glucose 131 H (60-115) mg/dL Calcium 8.1 L (8.4-10.2) mg/dL Total Bilirubin 0.9 (0.0-1.0) mg/dL AST 27 (5-37) U/L ALT 53 H (0-40) U/L Alkaline Phosphatase 88 (39-117) U/L Total Protein 5.9 L (6.5-8.0) g/dL Albumin 3.2 L (3.5-5.0) g/dL Lipase 19 (8-78) U/L Urine Color Urine Appearance Urine pH (5.0-9.0) Ur Specific [place] (1.005-1.025) Urine Protein (Neg-Trace) mg/dL Urine Glucose (UA) (Negative) mg/dL Urine Ketones (Negative) mg/dL Urine Blood (Negative) Urine Nitrite (Negative) Ur Leukocyte Esterase (Negative) Urine RBC (0-2) /HPF Urine WBC (0-5) /HPF Ur Squamous Epith Cells (0-2) /HPF Urine Bacteria (None Seen) Hyaline Casts (0-2) /LPF Influenza Type A (PCR) NEGATIVE (Negative) Influenza Type B (PCR) NEGATIVE (Negative) RSV RNA Qual (PCR) NEGATIVE (Negative) SARS-CoV-2 RNA (RT-PCR) NEGATIVE (Negative) 08/18/22 Range/Units 19:28 WBC (4.8-10.8) X10*3/uL RBC (4.60-5.80) X10*6/uL Hgb (14.0-18.0) g/dl Hct (42.0-52.0) % MCV (80.0-98.0) fL MCH (27.0-33.0) pg MCHC (31.0-36.0) g/dl RDW (11.0-16.0) % Plt Count (160-400) X10*3/uL MPV (9.4-12.4) fL Immature Gran % (Auto) (0.0-0.4) % Neut % (Auto) (45-73) % Lymph % (Auto) (20-40) % [place] % (Auto) (2-11) % Eos % (Auto) (0-4) % Baso % (Auto) (0-2) % Lymph # (Auto) (1.2-4.9) X10*3/uL [place] # (Auto) (0.1-1.2) X10*3/uL Eos # (Auto) (0.0-0.4) X10*3/uL Baso # (Auto) (0.0-0.2) X10*3/uL Abs Immat Gran (auto) (0.00-0.03) X10*3/uL Absolute Neuts (auto) (2.0-8.3) x10*3/uL Absolute Nucleated RBC (0.0-0.012) X10*3/uL Nucleated RBC % (auto) (0.0-0.2) /100WBC Sodium (135-145) mmol/L Potassium (3.3-5.1) mmol/L Chloride (96-108) mmol/L Carbon Dioxide (22-29) mmol/L Anion Gap (12-20) BUN (9-16) mg/dL Creatinine (0.5-1.4) mg/dL Estim Creat Clear Calc Estimated GFR Random Glucose (60-115) mg/dL Calcium (8.4-10.2) mg/dL Total Bilirubin (0.0-1.0) mg/dL AST (5-37) U/L ALT (0-40) U/L Alkaline Phosphatase (39-117) U/L Total Protein (6.5-8.0) g/dL Albumin (3.5-5.0) g/dL Lipase (8-78) U/L Urine Color Yellow Urine Appearance Clear Urine pH 5.5 (5.0-9.0) Ur Specific [place] 1.015 (1.005-1.025) Urine Protein 100 (2+) H (Neg-Trace) mg/dL Urine Glucose (UA) Negative (Negative) mg/dL Urine Ketones Negative (Negative) mg/dL Urine Blood Negative (Negative) Urine Nitrite Negative (Negative) Ur Leukocyte Esterase Negative (Negative) Urine RBC 0-2 (0-2) /HPF Urine WBC 0-5 (0-5) /HPF Ur Squamous Epith Cells 0-2 (0-2) /HPF Urine Bacteria None Seen (None Seen) Hyaline Casts 0-2 (0-2) /LPF Influenza Type A (PCR) (Negative) Influenza Type B (PCR) (Negative) RSV RNA Qual (PCR) (Negative) SARS-CoV-2 RNA (RT-PCR) (Negative) <Kerrie Kerns MD - Last Filed: 08/18/22 20:48> Independent Interpretation I performed an independent interpretation of an: Plain X-Ray (Chest: Unremarkable chest examination.) <Kerrie Kerns MD - Last Filed: 08/18/22 20:48> Radiology Impression Discussion of test interpretation with radiology: I have reviewed the radiologist's reading. <Kerrie Kerns MD - Last Filed: 08/18/22 20:48> Chronic Conditions Patient?s care impacted by: Other (CKD) <Kerrie Kerns MD - Last Filed: 08/18/22 20:48> Discharge Plan Discharge Clinical Impression: Orthostatic hypotension <Jorden Simmons - Last Filed: 08/18/22 15:11> Patient Disposition: Admitted As Inpatient <Jorden Simmons - Last Filed: 08/18/22 15:11>
[2022-08-18 15:36] LABS: MANUAL DIFF FLAG NO
[2022-08-18 15:38] LABS: Basophils Absolute Auto 0.1 X10*3/uL (0.0-0.2); Basophils Percent Auto 0.5 % (0-2); Eosinophils Absolute Auto 0.3 X10*3/uL (0.0-0.4); Eosinophils Percent Auto 2.4 % (0-4); Hematocrit 33.7 % (42.0-52.0); Hemoglobin 11.2 g/dl (14.0-18.0); Imm Gran Abs Auto 0.03 X10*3/uL (0.00-0.03); Imm Gran Pct Auto 0.3 % (0.0-0.4); Lymphocytes Absolute Auto 2.4 X10*3/uL (1.2-4.9); Lymphocytes Percent Auto 22.4 % (20-40); Mean Corpuscular HGB Conc 33.2 g/dl (31.0-36.0); Mean Corpuscular Hemoglobin 29.6 pg (27.0-33.0); Mean Corpuscular Volume 89.2 fL (80.0-98.0); Mean Platelet Volume 8.9 fL (9.4-12.4); Monocytes Percent Auto 9.4 % (2-11); Neutrophils Absolute Auto 6.8 x10*3/uL (2.0-8.3); Platelet Count 393 X10*3/uL (160-400); Red Blood Count 3.78 X10*6/uL (4.60-5.80); Red Cell Distribution Width 16.5 % (11.0-16.0); White Blood Count 10.5 X10*3/uL (4.8-10.8)
[2022-08-18 15:52] LABS: Alanine Aminotransferase 53 U/L (0-40); Albumin Level 3.2 g/dL (3.5-5.0); Alkaline Phosphatase 88 U/L (39-117); Anion Gap 13 (12-20); Aspartate Amino Transferase 27 U/L (5-37); Bilirubin Total 0.9 mg/dL (0.0-1.0); Blood Urea Nitrogen 24 mg/dL (9-16); Calcium 8.1 mg/dL (8.4-10.2); Carbon Dioxide 24 mmol/L (22-29); Chloride 108 mmol/L (96-108); Creatinine Clr Calc Pharmacy 51.4; Estimated Glomerular Filt Rate 48; Glucose Random 131 mg/dL (60-115); Potassium 4.1 mmol/L (3.3-5.1); Sodium 141 mmol/L (135-145); Total Protein 5.9 g/dL (6.5-8.0)
[2022-08-18 16:05] LABS: Lipase 19 U/L (8-78)
[2022-08-18 16:17] LABS: Influenza A PCR NEGATIVE (Negative); Influenza B PCR NEGATIVE (Negative); Resp Syncy Virus RNA Qual PCR NEGATIVE (Negative); SARS COV2 PCR INHOUSE NEGATIVE (Negative)
[2022-08-18] MEDS: 0.9 % Sodium Chloride 1,000 ML 999 ML IV ×2 (17:24→18:59)
[2022-08-18 19:40] LABS: Appearance Urine Clear; Color Urine Yellow; Glucose Urine UA Negative (Negative); Leukocyte Esterase Urine Negative (Negative); Nitrite Urine Negative (Negative); PH 5.5 (5.0-9.0); Specific Gravity - Urine 1.015 (1.005-1.025); UMIC TRIGGER UACC YES; Urine Blood Negative (Negative); Urine Ketones Negative (Negative); Urine Protein 100 (2+) mg/dL (Neg-Trace)
[2022-08-18 19:45] LABS: Bacteria Urine None Seen (None Seen); Hyaline Casts Urine 0-2 /LPF (0-2); RBC Urine 0-2 /HPF (0-2); Squamous Epithelial Cell Urine 0-2 /HPF (0-2); WBC Urine 0-5 /HPF (0-5)
--- NOTE | 2022-08-18 20:37 | PM.IMHP ---
History of Present Illness Date of Service: 08/18/22 Attending physician on admission: Pamela Francois Chief Complaint: Orthostatic hypotension Pt is a 57-year-old male with a PMH significant for CKD stage 3, NEEMA, HLD,?BPH, bipolar disorder, diabetes, and hx of diabetic foot ulcer w/ osteomyelitis who presents to the ED for evaluation for orthostatic hypotension. Pt Mongolian-speaking only; content director services utilized. Patient was at his community recreation coordinator's for a follow-up appointment for CKD when they noticed that he had orthostatic hypotension and sent him to ED for further evaluation. Initial orthostatics were positive with a systolic drop of 39 and diastolic drop of 20 from supine to standing; pt given 2L normal saline and repeat orthostatics again positive with systolic drop of 49 and diastolic drop of 13 from supine to standing. Pt states that he has been feeling lightheaded and dizzy for the past month, particularly with standing up from bed or chair. For the past 2-3 days pt has been ocassionally feeling lightheaded and dizzy while sitting down. Notes he started drinking less water around three months ago d/t feeling less thirsty. Currently drinks 2-3 regular-sized bottles of water daily. Denies sickness, vomiting, diarrhea during the past month. Denies recent medication changes; claims he is compliant with current meds. Denies fever, chills, nausea, abdominal pain. No chest pain/pressure, palpitations. Denies shortness of breath. Chronic constipation, but no changes to bowel or bladder habits. Of note patient has a chronic nonhealing diabetic foot ulcer on the bottom of his right foot. Patient is [facility] by [facility] with last visit the previous Monday. Patient denies pain in his foot or any discharge from the wound. In the ED patient was afebrile and initially hypotensive at 89/52, satting at 99% on RA. Labs were significant for no leukocytosis, H&H of 11.2/33.7, BUN 24, creatinine 1.51. UA negative for UTI. Patient is negative for influenza type a and B, RSV, COVID. Chest x-ray showed no acute cardiopulmonary process. EKG demonstrated sinus rhythm with occasional PVC. Pt was treated with 2 L IVF. Pt will be admitted to the hospital for further treatment and evaluation of orthostatic hypotension. Review of Systems Review of Systems: Lightheaded, dizzy x1 month Decreased p.o. intake of fluids x3 months Nonhealing diabetic ulcer on the bottom of his right foot Denies fever, chills, nausea, vomiting, diarrhea, abdominal pain No chest pain/pressure, palpitations Shortness of breath Yes all other systems are reviewed and are negative [facility] Medical History Anemia Anemia in chronic kidney disease CKD (chronic kidney disease) CKD (chronic kidney disease) stage 3, GFR 30-59 ml/min CKD stage G3b/A2, GFR 30-44 and albumin creatinine ratio 30-299 mg/g Diabetes type 2, uncontrolled Diabetic polyneuropathy associated with type 2 diabetes mellitus Dyslipidemia Foot osteomyelitis, right Headache 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 deficiency Left knee pain Microalbuminuria Moderate non-proliferative diabetic retinopathy Morbid obesity NEEMA on CPAP Osteomyelitis PAD (peripheral artery disease) Patellofemoral arthritis of 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 Brother No problems noted. Son No problems noted. Daughter In good health Maternal Grandmother DM (diabetes mellitus) Stroke Surgical History History of eye surgery 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 History of tonsillectomy and adenoidectomy Hx laparoscopic cholecystectomy S/P cataract surgery S/P debridement S/P tooth extraction Status post amputation of toe Social History Household Members: None Housing: Apartment Do you presently have visiting nurse or other home services: No Unable to assess alcohol history related to: Unknown Alcohol intake: never Patient Tobacco Use Status: Never used Tobacco Smoked in Last 30 Days: No e-Cigarette/Vaping Use: Never Used Second Hand Smoke Exposure: No Use of substances other than those prescribed or required for medical reasons: No Substance Use Type: Marijuana Advance Directives: No Advance Directives Information Provided: Yes service: No Current occupational status: disabled Sexual orientation: Did not discuss. Cognitive needs: No Hearing needs: No Vision needs: Yes Meds Allergies Allergy/AdvReac Type Severity Reaction Status Date / Time Sulfa (Sulfonamide Allergy Intermediate hives Verified 08/18/22 15:07 Antibiotics) [SULFA (SULFONAMIDE ANTIBIOTICS)] Home Medications Medication Instructions Recorded Confirmed Last Taken Type atorvastatin 10 mg tablet 10 mg PO DAILY 03/23/22 08/18/22 08/18/22 History ergocalciferol (vitamin D2) 1,250 1,250 mcg PO MO 03/23/22 08/18/22 08/15/22 History mcg (50,000 unit) capsule (Vitamin D2) alfuzosin 10 mg tablet,extended 10 mg PO DAILY 04/20/22 08/18/22 08/18/22 History release 24 hr dulaglutide 1.5 mg/0.5 mL 1.5 mg subcut MO 08/18/22 08/18/22 08/15/22 History subcutaneous pen injector (Trulicity) ferrous sulfate 325 mg (65 mg 325 mg PO DAILY 08/18/22 08/18/22 08/18/22 History iron) tablet (FeroSul) finasteride 5 mg tablet 5 mg PO DAILY 08/18/22 08/18/22 08/18/22 History fluoxetine 10 mg capsule 10 mg PO DAILY 08/18/22 08/18/22 08/18/22 History hydroxyzine pamoate 25 mg capsule 25 mg PO BID PRN Anxiety 08/18/22 08/18/22 08/18/22 09:00 History trazodone 100 mg tablet 100 mg PO BEDTIME PRN insomnia 08/18/22 08/18/22 08/17/22 History Physical Exam Vital Signs and Narrative: Vital Signs: Last Vital Signs Temp 98.6 F 08/18/22 20:34 Pulse 71 08/18/22 20:34 Resp 14 08/18/22 20:34 BP 142/71 H 08/18/22 20:34 Pulse Ox 99 08/18/22 20:34 O2 Del Method Room Air 08/18/22 20:34 BMI result Body Mass Index 27.5 Constitutional: Alert, in no acute distress. Mental Status: Oriented to person, place and time. Eyes: Pupils are equal, round, and reactive to light. Ear, Nose, and Throat: Oropharynx clear, mucous membranes dry. Ears and nose without deformities. Trachea midline. Respiratory: Clear to auscultation bilaterally. No wheezing, rales, or rhonchi. Cardiovascular: S1, S2 regular. No murmurs, rubs, or gallops. Gastrointestinal: Abdomen soft, non-tender, non-distended. Normal bowel sounds. Neurologic: Cranial nerves II-XII are grossly intact bilaterally. No focal neurological deficits. Moves all extremities spontaneously. Slight resting tremor of upper extremities bilaterally. Skin: Warm, dry. Extremities: No edema. Nonhealing chronic wound on the bottom of right foot. No erythema, drainage. As pictured below. Psychiatric: Normal mood and affect. Results Labs 08/18/22 15:21 08/18/22 15:21 Labs: Laboratory Results - last 24 hr 08/18/22 08/18/22 08/18/22 15:21 15:21 15:21 MCV 89.2 MCH 29.6 MCHC 33.2 RDW 16.5 H Plt Count 393 MPV 8.9 L Immature Gran % (Auto) 0.3 Neut % (Auto) 65.0 Lymph % (Auto) 22.4 [place] % (Auto) 9.4 Eos % (Auto) 2.4 Baso % (Auto) 0.5 Lymph # (Auto) 2.4 [place] # (Auto) 1.0 Eos # (Auto) 0.3 Baso # (Auto) 0.1 Abs Immat Gran (auto) 0.03 Absolute Neuts (auto) 6.8 Absolute Nucleated RBC 0.000 Nucleated RBC % (auto) 0.0 Anion Gap 13 Estim Creat Clear Calc 51.4 Estimated GFR 48 Random Glucose 131 H Calcium 8.1 L Total Bilirubin 0.9 AST 27 ALT 53 H Alkaline Phosphatase 88 Total Protein 5.9 L Albumin 3.2 L Lipase 19 Urine Color Urine Appearance Urine pH Ur Specific [place] Urine Protein Urine Glucose (UA) Urine Ketones Urine Blood Urine Nitrite Ur Leukocyte Esterase Urine RBC Urine WBC Ur Squamous Epith Cells Urine Bacteria Hyaline Casts Influenza Type A (PCR) NEGATIVE Influenza Type B (PCR) NEGATIVE RSV RNA Qual (PCR) NEGATIVE SARS-CoV-2 RNA (RT-PCR) NEGATIVE 08/18/22 19:28 MCV MCH MCHC RDW Plt Count MPV Immature Gran % (Auto) Neut % (Auto) Lymph % (Auto) [place] % (Auto) Eos % (Auto) Baso % (Auto) Lymph # (Auto) [place] # (Auto) Eos # (Auto) Baso # (Auto) Abs Immat Gran (auto) Absolute Neuts (auto) Absolute Nucleated RBC Nucleated RBC % (auto) Anion Gap Estim Creat Clear Calc Estimated GFR Random Glucose Calcium Total Bilirubin AST ALT Alkaline Phosphatase Total Protein Albumin Lipase Urine Color Yellow Urine Appearance Clear Urine pH 5.5 Ur Specific [place] 1.015 Urine Protein 100 (2+) H Urine Glucose (UA) Negative Urine Ketones Negative Urine Blood Negative Urine Nitrite Negative Ur Leukocyte Esterase Negative Urine RBC 0-2 Urine WBC 0-5 Ur Squamous Epith Cells 0-2 Urine Bacteria None Seen Hyaline Casts 0-2 Influenza Type A (PCR) Influenza Type B (PCR) RSV RNA Qual (PCR) SARS-CoV-2 RNA (RT-PCR) Imaging Radiologist's Impressions: Impressions Chest X-Ray 08/18/22 15:31 IMPRESSION: Unremarkable chest examination. Assessment and Plan (1) Orthostatic hypotension: Status: Acute Plan Pt is a 57-year-old male with a PMH significant for CKD stage 3, NEEMA, HLD,?BPH, bipolar disorder, diabetes, and hx of diabetic foot ulcer w/ osteomyelitis who presents to the ED for evaluation for orthostatic hypotension. Pt will be admitted for observation to the hospital for further treatment and evaluation of orthostatic hypotension. Orthostatic hypotension Etiology unclear, possibly due to dehydration from decreased p.o. intake of fluids Initial orthostatics were positive w/ systolic drop of 39 and diastolic drop of 20 from supine to standing; repeat after IVF again positive w/ systolic drop of 49 and diastolic drop of 13 from supine to standing Pt received 2L of IVF in ED IVF: lactated ringers @ 100mls/hr Nephrology consult Chronic non-healing diabetic foot ulcer Follower by [facility], last visit las Monday No sign of active infection Wound care consult BPH Hold home meds for now d/t hypotension Non insulin-dependent diabetes SSI HLD Continue home meds Mood disorder Continue home meds Full Code Attending:? DVT Prophylaxis: Lovenox Pt will be admitted for observation to the hospital for further treatment and evaluation of orthostatic hypotension. Time Spent With Patient Time: Total time managing care of this patient today ____ minutes. Quality Stroke Does the patient have a stroke diagnosis?: No VTE Prior VTE?: No VTE Risk Level:: Medical - moderate - high VTE Device Contraindication: Treatment Not Indicated VTE Drug Contraindication: N/A - Med Ordered
[2022-08-18 21:07] LABS: Lactic Acid 0.8 mmol/L (0.5-2.0)
--- NOTE | 2022-08-18 21:14 | PC.NURSE ---
Pt aox3 resting at the bedside. Breaths are even, regular, and unlabored. RR 13. NSR on monitor with hr 80. Abd soft and non tender. Skin warm pink and dry. Right foot ulcer noted. Pt reports being followed by the wound clinic. Wound re-dressed. Food and liquids provided to pt. Pt tolerated well. Pt aware of plan of care. Will continue to monitor.
--- NOTE | 2022-08-18 22:31 | PHA.MEDREC ---
Pharmacy Consult ? Medication Reconciliation Pharmacy has completed the medication reconciliation. Spoke to pt and health care proxy at bedside with assistance of news intern. Patient and proxy are poor historians and unable to provide any information on home med use. Used claim history to compile med rec. The only thing the patient was able to confirm was the dose of the Trulicity and the day that it is taken on.
[2022-08-18] MEDS: Lactated Ringers 1,000 ML 100 ML IVCONT (23:50)
[2022-08-18] MEDS: Enoxaparin Sodium 40 MG/0.4 ML SYRINGE SUBCUT (23:51)
[2022-08-18] MEDS: HaloperidoL 5 MG TABLET PO (23:51)
[2022-08-18] MEDS: 0.9 % Sodium Chloride Flush 3 ML SYRINGE IVFLUSH (23:51)
[2022-08-18] MEDS: traZODone HCL 100 MG TABLET PO (23:59)
[2022-08-19] VITALS (7 sets, daily range): BP systolic 87–161; BP diastolic 55–77; PULSE 66–96; RESP 17–20; TEMP 36.2–37.1; O2SAT 98–99; BMI 27.4
--- NOTE | 2022-08-19 00:16 | PC.NURSE ---
RN to RN report given to JAN Asher. Pt being transferred to room 470 and aware of plan of care.
[2022-08-19 07:57] LABS: Glucose, Whole Blood 104 mg/dL (60-115)
[2022-08-19] MEDS: Aspirin 81 MG TAB.CHEW PO (08:27)
[2022-08-19] MEDS: Atorvastatin Calcium 10 MG TABLET PO (08:27)
[2022-08-19] MEDS: HaloperidoL 5 MG TABLET PO ×2 (08:27→21:29)
[2022-08-19] MEDS: FLUoxetine HCl 10 MG CAPSULE PO (08:27)
[2022-08-19] MEDS: Ferrous Sulfate 324 MG TABLET.DR PO (08:27)
[2022-08-19] MEDS: Acetaminophen 325 MG TABLET 650 MG PO (08:35)
--- NOTE | 2022-08-19 11:21 | P.PNIM_ITS ---
Subjective Subjective Date of Service: 08/19/22 Interval History: This history was taken in Telugu from the patient. Notes dizziness No abd pain No N/V/D Review of Systems Review of Systems: Yes all other systems are reviewed and are negative Physical Exam Vital Signs: Vital Signs: Last Vital Signs Temp 97.3 F 08/19/22 08:00 Pulse 86 08/19/22 09:47 Resp 19 08/19/22 08:00 BP 87/55 L 08/19/22 09:47 Pulse Ox 99 08/19/22 08:00 O2 Del Method Aerosol Mask 08/19/22 09:47 BMI result Body Mass Index 27.4 Gen: in no acute distress HEENT: sclera anicteric, moist mucus membranes Neck: supple Lungs: clear to auscultation bilaterally Heart: regular rate and rhythm, no murmurs Abd: soft, non-tender, non-distended Ext: no edema Skin: warm/well-perfused Neuro: alert and oriented x3, no focal findings Psych: appropriate affect Objective Data Active Medications Acetaminophen (Acetaminophen 325 Mg Tablet) 650 mg PO Q6H PRN PRN Reason: Pain, Mild (Pain Scale 1-3) Last Admin: 08/19/22 08:35 Dose: 650 mg Documented By: JULIO Aspirin (Aspirin 81 Mg Tab.Chew) 81 mg PO DAILY [facility] Last Admin: 08/19/22 08:27 Dose: 81 mg Documented By: JULIO Atorvastatin Calcium (Atorvastatin Calcium 10 Mg Tablet) 10 mg PO DAILY [facility] Last Admin: 08/19/22 08:27 Dose: 10 mg Documented By: JULIO Enoxaparin Sodium (Enoxaparin Sodium 40 Mg/0.4 Ml Syringe) 40 mg SUBCUT Q24H [facility] Last Admin: 08/18/22 23:51 Dose: 40 mg Documented By: ROLANDO Ferrous Sulfate (Ferrous Sulfate 324 Mg Tablet.Dr) 324 mg PO DAILY [facility] Last Admin: 08/19/22 08:27 Dose: 324 mg Documented By: JULIO Fluoxetine HCl (Fluoxetine Hcl 10 Mg Capsule) 10 mg PO DAILY [facility] Last Admin: 08/19/22 08:27 Dose: 10 mg Documented By: JULIO Haloperidol (Haloperidol 5 Mg Tablet) 5 mg PO BID [facility] Last Admin: 08/19/22 08:27 Dose: 5 mg Documented By: JULIO Hydroxyzine HCl (Hydroxyzine Hcl 25 Mg Tablet) 25 mg PO BID PRN PRN Reason: Anxiety Lactated Ringer's (Lr) 1,000 mls @ 100 mls/hr IVCONT .Q10H [facility] Last Admin: 08/19/22 09:12 Dose: Not Given Documented By: JULIO Non-Admin Reason: prevoius bag running Pharmacy Consult (Consult Rx Perform Med Rec) 1 each MISCELLANE ONCE PRN PRN Reason: Consult order Sodium Chloride (0.9 % Sodium Chloride Flush 3 Ml Syringe) 3 ml IVFLUSH QSHIFT [facility] Last Admin: 08/19/22 08:24 Dose: Not Given Documented By: JULIO Non-Admin Reason: IV Running Trazodone HCl (Trazodone Hcl 100 Mg Tablet) 100 mg PO BEDTIME PRN PRN Reason: insomnia Last Admin: 08/18/22 23:59 Dose: 100 mg Documented By: ROLANDO Labs 08/18/22 15:21 08/18/22 15:21 Labs: Laboratory Results - last 24 hr 08/18/22 08/18/22 08/18/22 15:21 15:21 15:21 MCV 89.2 MCH 29.6 MCHC 33.2 RDW 16.5 H Plt Count 393 MPV 8.9 L Immature Gran % (Auto) 0.3 Neut % (Auto) 65.0 Lymph % (Auto) 22.4 [place] % (Auto) 9.4 Eos % (Auto) 2.4 Baso % (Auto) 0.5 Lymph # (Auto) 2.4 [place] # (Auto) 1.0 Eos # (Auto) 0.3 Baso # (Auto) 0.1 Abs Immat Gran (auto) 0.03 Absolute Neuts (auto) 6.8 Absolute Nucleated RBC 0.000 Nucleated RBC % (auto) 0.0 Anion Gap 13 Estim Creat Clear Calc 51.4 Estimated GFR 48 POC Glucose Random Glucose 131 H Lactic Acid Calcium 8.1 L Total Bilirubin 0.9 AST 27 ALT 53 H Alkaline Phosphatase 88 Total Protein 5.9 L Albumin 3.2 L Lipase 19 Urine Color Urine Appearance Urine pH Ur Specific [place] Urine Protein Urine Glucose (UA) Urine Ketones Urine Blood Urine Nitrite Ur Leukocyte Esterase Urine RBC Urine WBC Ur Squamous Epith Cells Urine Bacteria Hyaline Casts Influenza Type A (PCR) NEGATIVE Influenza Type B (PCR) NEGATIVE RSV RNA Qual (PCR) NEGATIVE SARS-CoV-2 RNA (RT-PCR) NEGATIVE 08/18/22 08/18/22 08/19/22 19:28 20:47 07:49 MCV MCH MCHC RDW Plt Count MPV Immature Gran % (Auto) Neut % (Auto) Lymph % (Auto) [place] % (Auto) Eos % (Auto) Baso % (Auto) Lymph # (Auto) [place] # (Auto) Eos # (Auto) Baso # (Auto) Abs Immat Gran (auto) Absolute Neuts (auto) Absolute Nucleated RBC Nucleated RBC % (auto) Anion Gap Estim Creat Clear Calc Estimated GFR POC Glucose 104 Random Glucose Lactic Acid 0.8 Calcium Total Bilirubin AST ALT Alkaline Phosphatase Total Protein Albumin Lipase Urine Color Yellow Urine Appearance Clear Urine pH 5.5 Ur Specific [place] 1.015 Urine Protein 100 (2+) H Urine Glucose (UA) Negative Urine Ketones Negative Urine Blood Negative Urine Nitrite Negative Ur Leukocyte Esterase Negative Urine RBC 0-2 Urine WBC 0-5 Ur Squamous Epith Cells 0-2 Urine Bacteria None Seen Hyaline Casts 0-2 Influenza Type A (PCR) Influenza Type B (PCR) RSV RNA Qual (PCR) SARS-CoV-2 RNA (RT-PCR) Assessment and Plan (1) Orthostatic hypotension: Status: Acute Plan d#2 57yo M with DM2 + CKD3 sent in from pot maker's office due to symptomatic orthostatic hypotension # orthostatic hypotension - still orthostatic this morning. IV fluids, Nephrology consult. Hold alfuzosin # CKD3 - SCr at baseline # DFU - outpt Wound Care follow-up # BPH - continue finasteride, hold alfuzosin due to orthostatic hypotension # DM2 - correction-dose lispro # PAD - statin, ASA # mood disorder - haloperidol + fluoxetine # NEEMA - CPAP at night # VTE ppx: LMWH # dispo: TBD In my clinical judgment, the patient requires continued inpatient hospitalization for the following reasons: orthostasis, IV fluids Time Spent With Patient Time: Total time managing care of this patient today __40__ minutes. Quality Stroke Does the patient have a stroke diagnosis?: No VTE Prior VTE?: No VTE Risk Level:: Medical - moderate - high VTE Device Contraindication: Treatment Not Indicated VTE Drug Contraindication: N/A - Med Ordered
--- NOTE | 2022-08-19 11:38 | P.PNNP_ITS ---
Subjective Subjective Date of Service: 08/19/22 Interval history: seen and examined no complaints Physical Exam Vital Signs: Vital Signs: Last Vital Signs Temp 97.3 F 08/19/22 08:00 Pulse 86 08/19/22 09:47 Resp 19 08/19/22 08:00 BP 87/55 L 08/19/22 09:47 Pulse Ox 99 08/19/22 08:00 O2 Del Method Aerosol Mask 08/19/22 09:47 BMI result Body Mass Index 27.4 Const: General: no acute distress HEENT: Head: Yes normocephalic and Yes atraumatic Neck: Neck: Yes supple Resp: Auscultation: diminished lung sounds Cardio: Heart sounds: S1 normal heart sound present and S2 normal heart sound present GI: Palpation (GI): Soft to palpation and nontender Extrem: General: Yes edema Objective Data Labs 08/18/22 15:21 08/18/22 15:21 Labs: Laboratory Results - last 24 hr 08/18/22 08/18/22 08/18/22 15:21 15:21 15:21 WBC 10.5 RBC 3.78 L Hgb 11.2 L Hct 33.7 L MCV 89.2 MCH 29.6 MCHC 33.2 RDW 16.5 H Plt Count 393 MPV 8.9 L Immature Gran % (Auto) 0.3 Neut % (Auto) 65.0 Lymph % (Auto) 22.4 [place] % (Auto) 9.4 Eos % (Auto) 2.4 Baso % (Auto) 0.5 Lymph # (Auto) 2.4 [place] # (Auto) 1.0 Eos # (Auto) 0.3 Baso # (Auto) 0.1 Abs Immat Gran (auto) 0.03 Absolute Neuts (auto) 6.8 Absolute Nucleated RBC 0.000 Nucleated RBC % (auto) 0.0 Sodium 141 Potassium 4.1 Chloride 108 Carbon Dioxide 24 Anion Gap 13 BUN 24 H Creatinine 1.51 H Estim Creat Clear Calc 51.4 Estimated GFR 48 POC Glucose Random Glucose 131 H Lactic Acid Calcium 8.1 L Total Bilirubin 0.9 AST 27 ALT 53 H Alkaline Phosphatase 88 Total Protein 5.9 L Albumin 3.2 L Lipase 19 Urine Color Urine Appearance Urine pH Ur Specific [place] Urine Protein Urine Glucose (UA) Urine Ketones Urine Blood Urine Nitrite Ur Leukocyte Esterase Urine RBC Urine WBC Ur Squamous Epith Cells Urine Bacteria Hyaline Casts Influenza Type A (PCR) NEGATIVE Influenza Type B (PCR) NEGATIVE RSV RNA Qual (PCR) NEGATIVE SARS-CoV-2 RNA (RT-PCR) NEGATIVE 08/18/22 08/18/22 08/19/22 19:28 20:47 07:49 WBC RBC Hgb Hct MCV MCH MCHC RDW Plt Count MPV Immature Gran % (Auto) Neut % (Auto) Lymph % (Auto) [place] % (Auto) Eos % (Auto) Baso % (Auto) Lymph # (Auto) [place] # (Auto) Eos # (Auto) Baso # (Auto) Abs Immat Gran (auto) Absolute Neuts (auto) Absolute Nucleated RBC Nucleated RBC % (auto) Sodium Potassium Chloride Carbon Dioxide Anion Gap BUN Creatinine Estim Creat Clear Calc Estimated GFR POC Glucose 104 Random Glucose Lactic Acid 0.8 Calcium Total Bilirubin AST ALT Alkaline Phosphatase Total Protein Albumin Lipase Urine Color Yellow Urine Appearance Clear Urine pH 5.5 Ur Specific [place] 1.015 Urine Protein 100 (2+) H Urine Glucose (UA) Negative Urine Ketones Negative Urine Blood Negative Urine Nitrite Negative Ur Leukocyte Esterase Negative Urine RBC 0-2 Urine WBC 0-5 Ur Squamous Epith Cells 0-2 Urine Bacteria None Seen Hyaline Casts 0-2 Influenza Type A (PCR) Influenza Type B (PCR) RSV RNA Qual (PCR) SARS-CoV-2 RNA (RT-PCR) Procedures Date of Service Date of Service: 08/19/22 Assessment & Plan Assessment and plan (1) CKD (chronic kidney disease) stage 3, GFR 30-59 ml/min: Status: Acute Plan stable kidney function CKD due to DM/HTN nephrotic range proteinuria prior w/u showed: normal complement level normal serum immunofixation seen by urology for bladder outlet obstruction REC urology f/u follow kidney function and electrolytes Time Spent With Patient Time: Total time managing care of this patient today ____ minutes. Progress Note: Quality Stroke Does the patient have a stroke diagnosis?: No
[2022-08-19 11:53] LABS: Glucose, Whole Blood 118 mg/dL (60-115)
[2022-08-19] MEDS: Lactated Ringers 1,000 ML 100 ML IVCONT (12:31)
--- NOTE | 2022-08-19 13:18 | PC.RT ---
spoke with patient via a content administrator. Pt states he has not worn his cpap in over 6 months and doesnt want to wear it here either. will let Hospitalist aware.
--- NOTE | 2022-08-19 13:42 | MHC.CM.PN ---
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
[2022-08-19 15:05] LABS: Glucose, Whole Blood 134 mg/dL (60-115)
[2022-08-19 18:54] LABS: Glucose, Whole Blood 146 mg/dL (60-115)
[2022-08-19] MEDS: Enoxaparin Sodium 40 MG/0.4 ML SYRINGE SUBCUT (21:29)
[2022-08-19] MEDS: traZODone HCL 100 MG TABLET PO (21:33)
[2022-08-20] MEDS: Lactated Ringers 1,000 ML 100 ML IVCONT ×2 (00:09→16:30)
[2022-08-20 07:37] LABS: Glucose, Whole Blood 100 mg/dL (60-115)
[2022-08-20 07:47] VITALS: BP 109/60; PULSE 77
[2022-08-20 07:58] VITALS: BP 109/60; PULSE 77; RESP 20; TEMP 35.9; O2SAT 97
[2022-08-20 08:01] VITALS: BP 105/60; BP 82/50; PULSE 82; PULSE 96
[2022-08-20] MEDS: Atorvastatin Calcium 10 MG TABLET PO (09:40)
[2022-08-20] MEDS: HaloperidoL 5 MG TABLET PO ×2 (09:40→21:07)
[2022-08-20] MEDS: Aspirin 81 MG TAB.CHEW PO (09:40)
[2022-08-20] MEDS: FLUoxetine HCl 10 MG CAPSULE PO (09:40)
[2022-08-20] MEDS: Midodrine HCl 2.5 MG TABLET PO ×3 (09:41→21:07)
[2022-08-20] MEDS: Ferrous Sulfate 324 MG TABLET.DR PO (09:41)
[2022-08-20] MEDS: Finasteride 5 MG TABLET PO (09:41)
--- NOTE | 2022-08-20 10:23 | HO.PM.IMPN ---
Subjective Subjective Date of Service: 08/20/22 Interval History: This history was taken in Syriac from the patient. Still orthostatic with BP dropping from 109/60 to 82/50 though no symptoms of lightheadness or dizziness Review of Systems Review of Systems: Yes all other systems are reviewed and are negative Physical Exam Vital Signs: Vital Signs: Last Vital Signs Temp 96.7 F L 08/20/22 07:58 Pulse 96 08/20/22 08:01 Resp 20 08/20/22 07:58 BP 82/50 L 08/20/22 08:01 Pulse Ox 97 08/20/22 07:58 O2 Del Method Room Air 08/20/22 07:58 BMI result Body Mass Index 27.4 Gen: in no acute distress HEENT: sclera anicteric, moist mucus membranes Neck: supple Lungs: clear to auscultation bilaterally Heart: regular rate and rhythm, no murmurs Abd: soft, non-tender, non-distended Ext: no edema Skin: warm/well-perfused Neuro: alert and oriented x3, no focal findings Psych: appropriate affect Objective Data Active Medications Acetaminophen (Acetaminophen 325 Mg Tablet) 650 mg PO Q6H PRN PRN Reason: Pain, Mild (Pain Scale 1-3) Last Admin: 08/19/22 08:35 Dose: 650 mg Documented By: JULIO Aspirin (Aspirin 81 Mg Tab.Chew) 81 mg PO DAILY [facility] Last Admin: 08/20/22 09:40 Dose: 81 mg Documented By: JULIO Atorvastatin Calcium (Atorvastatin Calcium 10 Mg Tablet) 10 mg PO DAILY [facility] Last Admin: 08/20/22 09:40 Dose: 10 mg Documented By: JULIO Enoxaparin Sodium (Enoxaparin Sodium 40 Mg/0.4 Ml Syringe) 40 mg SUBCUT Q24H [facility] Last Admin: 08/19/22 21:29 Dose: 40 mg Documented By: SID Ferrous Sulfate (Ferrous Sulfate 324 Mg Tablet.) 324 mg PO DAILY [facility] Last Admin: 08/20/22 09:41 Dose: 324 mg Documented By: JULIO Finasteride (Finasteride 5 Mg Tablet) 5 mg PO DAILY [facility] Last Admin: 08/20/22 09:41 Dose: 5 mg Documented By: JULIO Fluoxetine HCl (Fluoxetine Hcl 10 Mg Capsule) 10 mg PO DAILY [facility] Last Admin: 08/20/22 09:40 Dose: 10 mg Documented By: JULIO Glucose (Glucose Gel 15 Gm Gel..Gram.) 15 gm PO Q15M PRN; Protocol PRN Reason: per Hypoglycemia Standing Ord. Haloperidol (Haloperidol 5 Mg Tablet) 5 mg PO BID [facility] Last Admin: 08/20/22 09:40 Dose: 5 mg Documented By: JULIO Hydroxyzine HCl (Hydroxyzine Hcl 25 Mg Tablet) 25 mg PO BID PRN PRN Reason: Anxiety Lactated Ringer's (Lr) 1,000 mls @ 100 mls/hr IVCONT .Q10H [facility] Last Admin: 08/20/22 00:09 Dose: 100 mls/hr Documented By: SID Dextrose (D10) 250 mls @ 750 mls/hr IV Q15M PRN; Protocol PRN Reason: per Hypoglycemia Standing Ord. Insulin Human Lispro (Insulin Lispro 100 Unit/Ml 3 Ml Vial) 0 unit SUBCUT QIDACHS [facility]; Protocol Last Admin: 08/20/22 08:41 Dose: Not Given Documented By: JULIO Non-Admin Reason: No Insulin Coverage Midodrine (Midodrine Hcl 2.5 Mg Tablet) 2.5 mg PO TID [facility] Last Admin: 08/20/22 09:41 Dose: 2.5 mg Documented By: JULIO Pharmacy Consult (Consult Rx Perform Med Rec) 1 each MISCELLANE ONCE PRN PRN Reason: Consult order Sodium Chloride (0.9 % Sodium Chloride Flush 3 Ml Syringe) 3 ml IVFLUSH QSHIFT [facility] Last Admin: 08/20/22 09:36 Dose: Not Given Documented By: JULIO Non-Admin Reason: IV Running Trazodone HCl (Trazodone Hcl 100 Mg Tablet) 100 mg PO BEDTIME PRN PRN Reason: insomnia Last Admin: 08/19/22 21:33 Dose: 100 mg Documented By: SID Labs 08/18/22 15:21 08/18/22 15:21 Labs: Laboratory Results - last 24 hr 08/19/22 08/19/22 08/19/22 11:47 15:02 18:50 POC Glucose 118 H 134 H 146 H 08/20/22 07:31 POC Glucose 100 Assessment and Plan (1) Orthostatic hypotension: Status: Acute Plan d#3 57yo M with DM2 + CKD3 sent in from wood grinder's office due to symptomatic orthostatic hypotension # orthostatic hypotension - still orthostatic this morning. continue IV fluids, hold alfuzosin, and start midodrine 2.5mg tid # CKD3 - SCr at baseline # DFU - outpt Wound Care follow-up # BPH - continue finasteride, hold alfuzosin due to orthostatic hypotension # DM2 - correction-dose lispro # PAD - statin, ASA # mood disorder - haloperidol + fluoxetine # NEEMA - CPAP at night # VTE ppx: LMWH # dispo: TBD In my clinical judgment, the patient requires continued inpatient hospitalization for the following reasons: orthostasis, IV fluids Time Spent With Patient Time: Total time managing care of this patient today __35__ minutes. Quality Stroke Does the patient have a stroke diagnosis?: No VTE Prior VTE?: No VTE Risk Level:: Medical - moderate - high VTE Device Contraindication: Treatment Not Indicated VTE Drug Contraindication: N/A - Med Ordered
[2022-08-20 10:59] LABS: Glucose, Whole Blood 97 mg/dL (60-115)
--- NOTE | 2022-08-20 13:17 | PM.PNNEP ---
Subjective Subjective Date of Service: 08/20/22 Interval history: seen and examined remains orthostatic Physical Exam Vital Signs: Vital Signs: Last Vital Signs Temp 96.7 F L 08/20/22 07:58 Pulse 96 08/20/22 08:01 Resp 20 08/20/22 07:58 BP 82/50 L 08/20/22 08:01 Pulse Ox 97 08/20/22 07:58 O2 Del Method Room Air 08/20/22 07:58 BMI result Body Mass Index 27.4 Const: General: no acute distress HEENT: Head: Yes normocephalic and Yes atraumatic Neck: Neck: Yes supple Resp: Auscultation: diminished lung sounds Cardio: Heart sounds: S1 normal heart sound present and S2 normal heart sound present GI: Palpation (GI): Soft to palpation and nontender Extrem: General: Yes edema Objective Data Labs 08/18/22 15:21 08/18/22 15:21 Labs: Laboratory Results - last 24 hr 08/19/22 08/19/22 08/20/22 15:02 18:50 07:31 POC Glucose 134 H 146 H 100 08/20/22 10:53 POC Glucose 97 Procedures Date of Service Date of Service: 08/20/22 Assessment & Plan Assessment and plan (1) CKD (chronic kidney disease) stage 3, GFR 30-59 ml/min: Status: Acute Plan kidney function stable CKD due to DM/HTN nephrotic range proteinuria prior w/u showed: normal complement level normal serum immunofixation seen by urology for bladder outlet obstruction REC follow orthostatics urology f/u follow kidney function and electrolytes Time Spent With Patient Time: Total time managing care of this patient today ____ minutes. Progress Note: Quality Stroke Does the patient have a stroke diagnosis?: No
[2022-08-20 16:00] VITALS: BP 154/77; PULSE 65; RESP 18; TEMP 37; O2SAT 99
[2022-08-20 16:28] LABS: Glucose, Whole Blood 81 mg/dL (60-115)
[2022-08-20 20:06] LABS: Glucose, Whole Blood 84 mg/dL (60-115)
[2022-08-20] MEDS: Enoxaparin Sodium 40 MG/0.4 ML SYRINGE SUBCUT (21:07)
[2022-08-20] MEDS: traZODone HCL 100 MG TABLET PO (21:07)
[2022-08-20 23:47] VITALS: BP 140/66; PULSE 64; RESP 18; TEMP 36.6; O2SAT 98
[2022-08-21] MEDS: Lactated Ringers 1,000 ML 100 ML IVCONT (02:25)
[2022-08-21] MEDS: Acetaminophen 325 MG TABLET 650 MG PO (02:32)
[2022-08-21 03:32] VITALS: BP 147/69; PULSE 63; RESP 20; TEMP 36.6; O2SAT 98
[2022-08-21 07:29] LABS: Glucose, Whole Blood 84 mg/dL (60-115)
[2022-08-21 07:34] VITALS: BP 147/73; PULSE 64; O2SAT 97
[2022-08-21 07:39] VITALS: RESP 20; TEMP 36.6
[2022-08-21] MEDS: Atorvastatin Calcium 10 MG TABLET PO (07:41)
[2022-08-21] MEDS: Ferrous Sulfate 324 MG TABLET.DR PO (07:41)
[2022-08-21] MEDS: FLUoxetine HCl 10 MG CAPSULE PO (07:41)
[2022-08-21] MEDS: Aspirin 81 MG TAB.CHEW PO (07:41)
[2022-08-21] MEDS: Finasteride 5 MG TABLET PO (07:41)
[2022-08-21] MEDS: HaloperidoL 5 MG TABLET PO (07:41)
[2022-08-21 07:47] VITALS: BP 148/69; PULSE 67
[2022-08-21 07:48] VITALS: BP 105/63; BP 132/67; PULSE 68; PULSE 79
[2022-08-21] MEDS: Midodrine HCl 2.5 MG TABLET PO (08:00)
--- NOTE | 2022-08-21 08:26 | PM.PNNEP ---
Subjective Subjective Date of Service: 08/21/22 Interval history: seen and examined no complaints Physical Exam Vital Signs: Vital Signs: Last Vital Signs Temp 97.9 F 08/21/22 07:39 Pulse 79 08/21/22 07:48 Resp 20 08/21/22 07:39 BP 105/63 08/21/22 07:48 Pulse Ox 97 08/21/22 07:34 O2 Del Method Room Air 08/21/22 07:34 BMI result Body Mass Index 27.4 Const: General: no acute distress HEENT: Head: Yes normocephalic and Yes atraumatic Neck: Neck: Yes supple Resp: Auscultation: diminished lung sounds Cardio: Heart sounds: S1 normal heart sound present and S2 normal heart sound present GI: Palpation (GI): Soft to palpation and nontender Extrem: General: Yes edema Objective Data Labs 08/18/22 15:21 08/18/22 15:21 Labs: Laboratory Results - last 24 hr 08/20/22 08/20/22 08/20/22 10:53 16:22 19:58 POC Glucose 97 81 84 08/21/22 07:22 POC Glucose 84 Procedures Date of Service Date of Service: 08/21/22 Assessment & Plan Assessment and plan (1) CKD (chronic kidney disease) stage 3, GFR 30-59 ml/min: Status: Acute Plan kidney function stable CKD due to DM/HTN nephrotic range proteinuria prior w/u showed: normal complement level normal serum immunofixation seen by urology for bladder outlet obstruction REC follow orthostatics no need for IVF c/w midodrine follow kidney function and electrolytes Time Spent With Patient Time: Total time managing care of this patient today ____ minutes. Progress Note: Quality Stroke Does the patient have a stroke diagnosis?: No
--- NOTE | 2022-08-21 10:38 | PM.DS ---
DS: Providers Provider Date of Service: 08/21/22 Date of admission: 08/21/22 07:00 Date of discharge: 08/21/22 Primary care physician: Xochilt Singh MD Consults: 08/18/22 22:31 Consult to Nephrology Routine Consulting Provider: Issac Baez Reason for consultation: Orthostatic hypotension, CKD3 DS: Diagnosis Discharge Diagnosis (1) CKD (chronic kidney disease) stage 3, GFR 30-59 ml/min: Status: Acute (2) Orthostatic hypotension: Status: Acute DS: Summary Hospital Course Hospital Course: from admission H+P by hospitalist STEVE Warren, 08/18/22: Pt is a 57-year-old male with a PMH significant for CKD stage 3, NEEMA, HLD,?BPH, bipolar disorder, diabetes, and hx of diabetic foot ulcer w/ osteomyelitis who presents to the ED for evaluation for orthostatic hypotension. Pt Kinyarwanda-speaking only; mail weigher services utilized. Patient was at his design engineering specialist's for a follow-up appointment for CKD when they noticed that he had orthostatic hypotension and sent him to ED for further evaluation. Initial orthostatics were positive with a systolic drop of 39 and diastolic drop of 20 from supine to standing; pt given 2L normal saline and repeat orthostatics again positive with systolic drop of 49 and diastolic drop of 13 from supine to standing. Pt states that he has been feeling lightheaded and dizzy for the past month, particularly with standing up from bed or chair. For the past 2-3 days pt has been ocassionally feeling lightheaded and dizzy while sitting down. Notes he started drinking less water around three months ago d/t feeling less thirsty. Currently drinks 2-3 regular-sized bottles of water daily. Denies sickness, vomiting, diarrhea during the past month. Denies recent medication changes; claims he is compliant with current meds.? Denies fever, chills, nausea, abdominal pain.? No chest pain/pressure, palpitations.? Denies shortness of breath.? Chronic constipation, but no changes to bowel or bladder habits.? Of note patient has a chronic nonhealing diabetic foot ulcer on the bottom of his right foot.? Patient is followed [facility] with last visit the previous Monday.? Patient denies pain in his foot or any discharge from the wound. In the ED patient was afebrile and initially hypotensive at 89/52, satting at 99% on RA. Labs were significant for no leukocytosis, H&H of 11.2/33.7, BUN 24, creatinine 1.51. UA negative for UTI. Patient is negative for influenza type a and B, RSV, COVID. Chest x-ray showed no acute cardiopulmonary process. EKG demonstrated sinus rhythm with occasional PVC. Pt was treated with 2 L IVF. Pt will be admitted to the hospital for further treatment and evaluation of orthostatic hypotension. 57yo M with DM2 + CKD3 sent in from design engineering specialist's office due to symptomatic orthostatic hypotension. Afluzosin discontinued, IV isotonic fluids given, and eventually, midodrine started. Serum creatinine at baseline. Patient's orthostasis and symptoms resolved. He was discharged home to continue Nephrology and Primary Care follow-up. Midodrine 2.5 mg tid prescribed and he should stop afluzosin. Time Spent with Patient Time attestation: Total time managing care of this patient today __35__ minutes. Discharge coordination time: Greater than 30 minutes Quality: Safe Use of Opioids Does Pt have an Active Cancer Diagnosis on the Problem List?: No Quality: Stroke Does the patient have a stroke diagnosis?: No Physical Exam Vital Signs: Vital Signs: Last Vital Signs Temp 97.9 F 08/21/22 07:39 Pulse 79 08/21/22 07:48 Resp 20 08/21/22 07:39 BP 105/63 08/21/22 07:48 Pulse Ox 97 08/21/22 07:34 O2 Del Method Room Air 08/21/22 07:34 BMI result Body Mass Index 27.4 Gen: in no acute distress HEENT: sclera anicteric, moist mucus membranes Neck: supple Lungs: clear to auscultation bilaterally Heart: regular rate and rhythm, no murmurs Abd: soft, non-tender, non-distended Ext: no edema Skin: warm/well-perfused Neuro: alert and oriented x3, no focal findings Psych: appropriate affect DS: Data Data Completed and Pending Completed studies during hospitalization [Text1]: Laboratory Results WBC 10.5 X10*3/uL (4.8-10.8) 08/18/22 15:21 RBC 3.78 X10*6/uL (4.60-5.80) L 08/18/22 15:21 Hgb 11.2 g/dl (14.0-18.0) L 08/18/22 15:21 Hct 33.7 % (42.0-52.0) L 08/18/22 15:21 MCV 89.2 fL (80.0-98.0) 08/18/22 15:21 MCH 29.6 pg (27.0-33.0) 08/18/22 15:21 MCHC 33.2 g/dl (31.0-36.0) 08/18/22 15:21 RDW 16.5 % (11.0-16.0) H 08/18/22 15:21 Plt Count 393 X10*3/uL (160-400) 08/18/22 15:21 MPV 8.9 fL (9.4-12.4) L 08/18/22 15:21 Immature Gran % (Auto) 0.3 % (0.0-0.4) 08/18/22 15:21 Neut % (Auto) 65.0 % (45-73) 08/18/22 15:21 Lymph % (Auto) 22.4 % (20-40) 08/18/22 15:21 Rock % (Auto) 9.4 % (2-11) 08/18/22 15:21 Eos % (Auto) 2.4 % (0-4) 08/18/22 15:21 Baso % (Auto) 0.5 % (0-2) 08/18/22 15:21 Lymph # (Auto) 2.4 X10*3/uL (1.2-4.9) 08/18/22 15:21 Rock # (Auto) 1.0 X10*3/uL (0.1-1.2) 08/18/22 15:21 Eos # (Auto) 0.3 X10*3/uL (0.0-0.4) 08/18/22 15:21 Baso # (Auto) 0.1 X10*3/uL (0.0-0.2) 08/18/22 15:21 Abs Immat Gran (auto) 0.03 X10*3/uL (0.00-0.03) 08/18/22 15:21 Absolute Neuts (auto) 6.8 x10*3/uL (2.0-8.3) 08/18/22 15:21 Absolute Nucleated RBC 0.000 X10*3/uL (0.0-0.012) 08/18/22 15:21 Nucleated RBC % (auto) 0.0 /100WBC (0.0-0.2) 08/18/22 15:21 Sodium 141 mmol/L (135-145) 08/18/22 15:21 Potassium 4.1 mmol/L (3.3-5.1) 08/18/22 15:21 Chloride 108 mmol/L (96-108) 08/18/22 15:21 Carbon Dioxide 24 mmol/L (22-29) 08/18/22 15:21 Anion Gap 13 (12-20) 08/18/22 15:21 BUN 24 mg/dL (9-16) H 08/18/22 15:21 Creatinine 1.51 mg/dL (0.5-1.4) H 08/18/22 15:21 Estim Creat Clear Calc 51.4 08/18/22 15:21 Estimated GFR 48 08/18/22 15:21 POC Glucose 84 mg/dL (60-115) 08/21/22 07:22 Random Glucose 131 mg/dL (60-115) H 08/18/22 15:21 Lactic Acid 0.8 mmol/L (0.5-2.0) 08/18/22 20:47 Calcium 8.1 mg/dL (8.4-10.2) L 08/18/22 15:21 Total Bilirubin 0.9 mg/dL (0.0-1.0) 08/18/22 15:21 AST 27 U/L (5-37) 08/18/22 15:21 ALT 53 U/L (0-40) H 08/18/22 15:21 Alkaline Phosphatase 88 U/L (39-117) 08/18/22 15:21 Total Protein 5.9 g/dL (6.5-8.0) L 08/18/22 15:21 Albumin 3.2 g/dL (3.5-5.0) L 08/18/22 15:21 Lipase 19 U/L (8-78) 08/18/22 15:21 Urine Color Yellow 08/18/22 19:28 Urine Appearance Clear 08/18/22 19:28 Urine pH 5.5 (5.0-9.0) 08/18/22 19:28 Ur Specific [place] 1.015 (1.005-1.025) 08/18/22 19:28 Urine Protein 100 (2+) mg/dL (Neg-Trace) H 08/18/22 19:28 Urine Glucose (UA) Negative mg/dL (Negative) 08/18/22 19:28 Urine Ketones Negative mg/dL (Negative) 08/18/22 19:28 Urine Blood Negative (Negative) 08/18/22 19:28 Urine Nitrite Negative (Negative) 08/18/22 19:28 Ur Leukocyte Esterase Negative (Negative) 08/18/22 19:28 Urine RBC 0-2 /HPF (0-2) 08/18/22 19:28 Urine WBC 0-5 /HPF (0-5) 08/18/22 19:28 Ur Squamous Epith Cells 0-2 /HPF (0-2) 08/18/22 19:28 Urine Bacteria None Seen (None Seen) 08/18/22 19:28 Hyaline Casts 0-2 /LPF (0-2) 08/18/22 19:28 Influenza Type A (PCR) NEGATIVE (Negative) 08/18/22 15:21 Influenza Type B (PCR) NEGATIVE (Negative) 08/18/22 15:21 RSV RNA Qual (PCR) NEGATIVE (Negative) 08/18/22 15:21 SARS-CoV-2 RNA (RT-PCR) NEGATIVE (Negative) 08/18/22 15:21 Impressions Chest X-Ray 08/18/22 15:31 IMPRESSION: Unremarkable chest examination. Labs on day of discharge: Laboratory Results - last 24 hr 08/20/22 08/20/22 08/20/22 10:53 16:22 19:58 POC Glucose 97 81 84 08/21/22 07:22 POC Glucose 84 Discharge Plan Discharge Anticipated Discharge Date/Time: 08/21/22 10:35 Patient Disposition: Home, Self-Care Discharge Diagnosis: orthostatic hypotension Referrals: Issac Baez MD [Physician] - 1 Week Xochilt Mckoy MD [Primary Care Provider] - 1 Week Discharge Medications: New midodrine 2.5 mg Tablet 2.5 mg PO TID Qty: 90 0RF Continued acetaminophen 500 mg tablet 1,000 mg PO Q6H PRN (Reason: fever or pain) 30 Days Qty: 240 2RF (DME) FreeStyle Test Strip See Rx Instructions .Route Qty: 150 0RF Rx Instructions: Use 4 test strip once a day (DME) wheelchair electric See Rx Instructions .Route .MEDSUPPLY Qty: 1 0RF Rx Instructions: As directed haloperidol 5 mg Tablet 5 mg PO BID Qty: 60 0RF aspirin 81 mg Tablet,Chewable 81 mg PO DAILY Qty: 30 0RF trazodone 100 mg tablet 100 mg PO BEDTIME PRN (Reason: insomnia) ferrous sulfate [FeroSul] 325 mg (65 mg iron) tablet 325 mg PO DAILY fluoxetine 10 mg capsule 10 mg PO DAILY finasteride 5 mg tablet 5 mg PO DAILY hydroxyzine pamoate 25 mg capsule 25 mg PO BID PRN (Reason: Anxiety) Trulicity 1.5 mg/0.5 mL pen injector 1.5 mg subcut MO ergocalciferol (vitamin D2) [Vitamin D2] 1,250 mcg (50,000 unit) capsule 1,250 mcg PO MO atorvastatin 10 mg tablet 10 mg PO DAILY (DME) blood pressure test kit-medium Kit See Rx Instructions .Route Qty: 1 0RF Rx Instructions: As directed Discontinued alfuzosin 10 mg tablet extended release 24 hr 10 mg PO DAILY Rx Instructions: administer after the same meal each day Discharge Orders: Discharge Order (Routine); Ordered 08/21/22 Ordered By: Elizabeth Ng Diet: Diabetic diet Activity on Discharge: As tolerated Stand Alone Forms: Patient Portal Discharge page Care Plan Goals: avoid orthostasis Health Concerns: orthostatic hypotension Plan of Treatment: STOP afluzosin START midodrine 2.5 mg 3x a day follow up with design engineering specialist in 2 weeks Please follow up with your primary care doctor within 1 week. Return to the hospital if you experience recurrent or worsening symptoms. Assessment: See Discharge Summary.
--- NOTE | 2022-08-21 10:40 | MHC.CM.PN ---
Patient has been medically cleared for dc to home today, self care. 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
[2022-08-21 11:00] LABS: Glucose, Whole Blood 110 mg/dL (60-115)
== END 2022-08-21 13:10 | disposition home or self-care (01) | DRG 204 ==
LOC: HO.ED 20:45 → HO.EDOVER 23:27 → HO.IMC 23:55
PROVIDERS: Internal Medicine; Physician Assistant; Admitting Provider Student in an Organized Health Care Education/Training Program; Emergency Provider Emergency Medicine; PCP Internal Medicine; Visit Provider Family Medicine
DX: I95.1 Orthostatic hypotension (principal); E11.22 Type 2 diabetes mellitus with diabetic chronic kidney disease; E11.51 Type 2 diabetes mellitus with diabetic peripheral angiopathy without gangrene; L97.419 Non-pressure chronic ulcer of right heel and midfoot with unspecified severity; I12.9 Hypertensive chronic kidney disease with stage 1 through stage 4 chronic kidney disease, or unspecified chronic kidney disease; N18.30 Chronic kidney disease, stage 3 unspecified; F31.9 Bipolar disorder, unspecified; N40.1 Benign prostatic hyperplasia with lower urinary tract symptoms; N13.8 Other obstructive and reflux uropathy; E78.5 Hyperlipidemia, unspecified; G47.33 Obstructive sleep apnea (adult) (pediatric); E11.621 Type 2 diabetes mellitus with foot ulcer; Z20.822 Contact with and (suspected) exposure to COVID-19; Z88.2 Allergy status to sulfonamides; Z79.82 Long term (current) use of aspirin; Z79.899 Other long term (current) drug therapy
CPT/HCPCS: 0241U; 36415; 71045; 80053; 81001; 82947; 83605; 83690; 85025; 93005; 99222; 99285; J1650

== ENCOUNTER 2022-09-04 09:29 | Inpatient (IN) | payer OTHER, SELFPAY ==
--- NOTE | ~2022-09-04 | XR_ITS ---
EXAMINATION: XR FOOT, RIGHT CLINICAL INFORMATION: Fever COMPARISON: Prior study 2021 TECHNIQUE: AP, lateral, and oblique views of the right foot. FINDINGS: Redemonstration of osteolytic changes involving the head of the second metatarsal with surrounding soft tissue swelling concerning for osteomyelitis. There is hallux valgus and underlying degenerative osteoarthritis of the first metatarsophalangeal and interphalangeal joints. There is inferior calcaneal spur. XR/XR foot RT min 3V IMPRESSION: * Redemonstration of osteolytic changes involving the head of the second metatarsal with surrounding soft tissue swelling concerning for osteomyelitis. * Hallux valgus. * Underlying degenerative osteoarthritis. * Inferior calcaneal spur.
--- NOTE | ~2022-09-04 | CT_ITS ---
CT head/brain wo IV con CLINICAL INFORMATION: Reason for Exam dizzy, fall, fever COMPARISON: Prior CT December 2021 TECHNIQUE: Department standard protocol. This CT examination was performed using dose optimization techniques as appropriate, variously including the following: *Automated exposure control *Adjustment of mA and/or kV according to patient size (this includes techniques or standardized protocols for targeted exams where dose is matched to indication/reason for exam; i.e. extremities or head) *Use of iterative reconstruction technique DLP: 731 mGy-cm FINDINGS: CEREBRAL HEMISPHERES: There is no evidence of intra-axial or extra-axial mass, hemorrhage or acute infarct. BRAIN PARENCHYMA: Normal mejias-white matter differentiation. SUBDURAL SPACE: No bleed. BASAL GANGLIA AND PINEAL GLAND: Unremarkable VENTRICLES: Symmetric and normal in size. CEREBELLUM AND BRAINSTEM: No space-occupying mass, hemorrhage or acute infarct. CEREBELLOPONTINE ANGLES: No lesion found. ORBITS: No intraorbital mass. VESSELS: Unremarkable SKULL BASE: Unremarkable INCLUDED SINUSES AT SKULL BASE: Clear SKULL AND SKIN: No fracture or bone lesion found. CT/CT head/brain wo IV con IMPRESSION: No CT evidence of intracranial space-occupying mass, bleed or infarct. No skull fracture.
--- NOTE | ~2022-09-04 | IR_ITS ---
PROCEDURE: IR INSERTION OF PICC CLINICAL INFORMATION: Needs long-term antibiotics. COMPARISON: None available. TECHNIQUE: Following explaining ultrasound and fluoroscopy placement of a left PICC line catheter procedure, benefits and risk, a written consent was obtained. Patient was placed supine and preliminary ultrasound imaging was obtained through the left arm. An optimal area was selected and marked on the skin. A tourniquet was applied above the left thumb. The left arm was cleaned and draped in usual sterile manner. 1% lidocaine was administered at puncture site. Under sterile ultrasound guidance a single wall needle was advanced and the left cephalic vein was punctured. After obtaining venous return a thin guidewire was advanced and placed in axillary vein and needle withdrawn. A 5 Dutch dilator sheath was placed over the guidewire. The short guide was removed and a longer guidewire was placed into the SVC. The dilator was removed and precut catheter was then advanced over the guidewire and placed in mid SVC. The needle was withdrawn and complete the peel-away sheath was removed and both ports of the catheter flushes upright standing. Sterile dressing applied postprocedure. Patient tolerated procedure extremely well. All elements of maximal sterile barrier technique followed including use of cap, mask, sterile gown, sterile gloves, a sterile full body drape and hand hygiene. Also followed skin preparation with 2% chlorhexidine for cutaneous antisepsis, and sterile ultrasound preparation with sterile gel and probe cover when applicable. FINDINGS: On preliminary ultrasound imaging the left cephalic vein is widely patent. A 45.5 cm long dual lumen 5 Dutch PICC catheter was placed with its tip in mid SVC. The catheter is ready for use. IR/IR cvc insert peripheral IMPRESSION: Successful ultrasound-guided PICC line placement of 45.5 cm long PICC with its tip in mid SVC. The catheter is ready for use. Fluoroscopy time: 0.9 minutes. Dose area product: 138.00. Sedation: None.
--- NOTE | ~2022-09-04 | IR_ITS ---
Examination: Ultrasound guidance for PICC line placement. Clinical indications: Long-term antibiotics needed. IR/IR us guide venous access PROCEDURE, FINDINGS AND IMPRESSION: The exam was dictated with other accession no for IR CVc insertion of PICC line.
--- NOTE | ~2022-09-04 | XR_ITS ---
EXAMINATION: XR chest 1V CLINICAL INFORMATION: Fever COMPARISON: Prior chest x-ray 08/18/2022 TECHNIQUE: XR chest 1V Tubes and lines: None Lungs and pleura: Both lungs are clear. Heart and mediastinum: The mediastinum is within normal limits.. Bones/soft tissue: Skeletal structures included are normal for patient's age. XR/XR chest 1V IMPRESSION: No radiographic evidence of acute cardiopulmonary disease.
--- NOTE | ~2022-09-04 | IR_ITS ---
PROCEDURE: IR INSERTION OF PICC CLINICAL INFORMATION: Foot infection. Long-term IV antibiotic requirement. COMPARISON: None available. TECHNIQUE: Procedure and risks and benefits including bleeding, infection and blood clot were discussed with the patient through an curatorial specialist and informed consent was obtained. All elements of maximal sterile barrier technique followed including use of cap, mask, sterile gown, sterile gloves, a sterile full body drape and hand hygiene. Also followed skin preparation with 2% chlorhexidine for cutaneous antisepsis, and sterile ultrasound preparation with sterile gel and probe cover when applicable. The right upper arm was prepped and draped in the usual sterile fashion. The skin and soft tissues were anesthetized with 1% lidocaine plain. Using ultrasound guidance, right basilic vein access was obtained. Over an 018 wire and through a peel-away sheath, a 4 Sami single lumen PICC line was positioned. Catheter tip is in the SVC. Catheter length is 35 cm. Real-time ultrasound guidance was performed to document vein patency and for needle entry. A formal ultrasound picture was recorded. Fluoroscopy time 1.8 minutes. 1 saved fluoroscopic image. FINDINGS: There is a right upper extremity PICC line with tip projecting over the SVC. IR/IR cvc insert peripheral IMPRESSION: Right upper extremity PICC line placement.
--- NOTE | ~2022-09-04 | IR_ITS ---
PROCEDURE: IR INSERTION OF PICC CLINICAL INFORMATION: Foot infection. Long-term IV antibiotic requirement. COMPARISON: None available. TECHNIQUE: Procedure and risks and benefits including bleeding, infection and blood clot were discussed with the patient through an senior validation engineer and informed consent was obtained. All elements of maximal sterile barrier technique followed including use of cap, mask, sterile gown, sterile gloves, a sterile full body drape and hand hygiene. Also followed skin preparation with 2% chlorhexidine for cutaneous antisepsis, and sterile ultrasound preparation with sterile gel and probe cover when applicable. The right upper arm was prepped and draped in the usual sterile fashion. The skin and soft tissues were anesthetized with 1% lidocaine plain. Using ultrasound guidance, right basilic vein access was obtained. Over an 018 wire and through a peel-away sheath, a 4 Estonian single lumen PICC line was positioned. Catheter tip is in the SVC. Catheter length is 35 cm. Real-time ultrasound guidance was performed to document vein patency and for needle entry. A formal ultrasound picture was recorded. Fluoroscopy time 1.8 minutes. 1 saved fluoroscopic image. FINDINGS: There is a right upper extremity PICC line with tip projecting over the SVC. IR/IR us guide venous access IMPRESSION: Right upper extremity PICC line placement.
[2022-09-04 09:33] VITALS: BP 114/63; PULSE 99; RESP 18; TEMP 39.2; O2SAT 94; BMI 27.2
--- NOTE | 2022-09-04 09:37 | ED.GENADULT ---
HPI - General Adult General Chief complaint: Dizziness Stated complaint: DIZZY,FLANK PAIN, SSO PER EMS Time Seen by Provider: 09/04/22 09:31 Source: patient, EMS, RN notes reviewed and old records reviewed Mode of arrival: EMS History of Present Illness HPI narrative: 57-year-old male with a PMH significant for CKD stage 3, NEEMA, HLD,?BPH, bipolar disorder, diabetes, and hx of diabetic foot ulcer w/ osteomyelitis who presents to the ED via EMS from home complaining of generalized fatigue/weakness, lightheadedness, dizziness described as feeling off balance/on a boat, with fall this morning around 3AM when up using the bathroom. Reports felt due to feeling generally fatigued. Denies head trauma or LOC. also reports chills. Denies cough, CP/SOB, abdominal pain, nausea/vomiting, diarrhea Onset (ago): hour(s) Related Data Home Medications Medication Instructions Recorded Confirmed atorvastatin 10 mg tablet 10 mg PO DAILY 03/23/22 09/04/22 ergocalciferol (vitamin D2) 1,250 1,250 mcg PO TU@0900 03/23/22 09/04/22 mcg (50,000 unit) capsule (Vitamin D2) dulaglutide 1.5 mg/0.5 mL 1.5 mg subcut MO@0900 08/18/22 09/04/22 subcutaneous pen injector (Trulicity) ferrous sulfate 325 mg (65 mg 325 mg PO DAILY 08/18/22 09/04/22 iron) tablet (FeroSul) fluoxetine 10 mg capsule 10 mg PO DAILY 08/18/22 09/04/22 hydroxyzine pamoate 25 mg capsule 25 mg PO BID PRN Anxiety 08/18/22 09/04/22 trazodone 100 mg tablet 100 mg PO BEDTIME PRN insomnia 08/18/22 09/04/22 finasteride 5 mg tablet 5 mg PO DAILY 09/04/22 09/04/22 Previous Rx's Medication Instructions Recorded haloperidol 5 mg tablet 5 mg PO BID #60 tabs 02/11/22 acetaminophen 500 mg tablet 1,000 mg PO Q6H PRN fever or pain 02/21/22 30 days #240 tabs blood sugar diagnostic (FreeStyle #150 ea 03/21/22 Test strips) blood pressure test kit-medium #1 ea 03/23/22 wheelchair electric #1 ea 11/05/22 midodrine 2.5 mg tablet 2.5 mg PO TID #90 tabs 08/21/22 aspirin 81 mg chewable tablet 81 mg PO DAILY #30 tabs 08/24/22 blood-glucose meter (FreeStyle #1 ea 08/24/22 Lite Meter kit) Allergies Allergy/AdvReac Type Severity Reaction Status Date / Time Sulfa (Sulfonamide Allergy Intermediate hives Verified 09/04/22 09:48 Antibiotics) [SULFA (SULFONAMIDE ANTIBIOTICS)] Review of Systems Review of Systems: Constitutional: No Fever, + Chills, + Fatigue, + Malaise ENT/Mouth: No Ear Pain, No Nasal Congestion, No sore throat, No Rhinorrhea, No Swallowing Difficulty Eyes: No Eye Pain, No Swelling, No Redness, No Foreign Body, No Discharge, No Vision Changes Cardiovascular: No Chest Pain, No SOB, No Edema, No Palpitations Respiratory: No Cough, No Sputum, No Dyspnea Gastrointestinal: No Nausea, No Vomiting, No Diarrhea, No Constipation, No Abdominal pain Genitourinary: No Dysuria, No Urinary Frequency, No Hematuria, No Urinary Incontinence/retention,No Flank Pain Musculoskeletal: No joint pain, No Myalgias, No Joint Swelling Skin: No Skin Lesions, No rash Neuro: + Weakness, No Numbness, No Paresthesias, No Loss of Consciousness, + Dizziness/lightheadedness, No Headache Yes all other systems are reviewed and are negative Constitutional: Constitutional: Reports as per [facility] Past Medical History Attestation statement: The following information was validated with the patient. Medical History Anemia Anemia in chronic kidney disease CKD (chronic kidney disease) CKD (chronic kidney disease) stage 3, GFR 30-59 ml/min CKD stage G3b/A2, GFR 30-44 and albumin creatinine ratio 30-299 mg/g Diabetes type 2, uncontrolled Diabetic polyneuropathy associated with type 2 diabetes mellitus Dyslipidemia Foot osteomyelitis, right Headache 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 deficiency Left knee pain Microalbuminuria Moderate non-proliferative diabetic retinopathy Morbid obesity NEEMA on CPAP Osteomyelitis PAD (peripheral artery disease) Patellofemoral arthritis of left knee [id number] syndrome Right foot pain Vitamin D deficiency Surgical History History of eye surgery 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 History of tonsillectomy and adenoidectomy Hx laparoscopic cholecystectomy S/P cataract surgery S/P debridement S/P tooth extraction Status post amputation of toe Family History Family History Father Cerebral aneurysm CVD (cardiovascular disease) Stroke Mother DM (diabetes mellitus) Stroke Brother No problems noted. Brother No problems noted. Son No problems noted. Daughter In good health Maternal Grandmother DM (diabetes mellitus) Stroke Social History Social History Household Members: None Housing: Unknown / Unable to assess Unable to assess alcohol history related to: Unable to respond Alcohol intake: never Patient Tobacco Use Status: Never used Tobacco Smoked in Last 30 Days: No e-Cigarette/Vaping Use: Never Used Second Hand Smoke Exposure: No Use of substances other than those prescribed or required for medical reasons: Unknown Substance Use Type: Marijuana Currently Displaying Signs/Symptoms of Drug Intoxication Withdrawal: No Advance Directives: Yes Advance Directives on File: Yes Advance Directives Date on File: 08/19/22 Do you have thoughts of harming others: None Nutrition Risks: No Nutritional Risk service: No Current occupational status: disabled Sexual orientation: Did not discuss. Cognitive needs: No Hearing needs: No Vision needs: Yes Physical Exam ED Vital Signs: Vital Signs - 24 hr 09/04/22 09:33 09/04/22 11:35 Temperature 102.6 F H 99.5 F Pulse Rate 99 83 Respiratory Rate 18 18 Blood Pressure 114/63 110/54 L Pulse Oximetry 94 98 Oxygen Delivery Method Room Air Room Air BMI result Body Mass Index 27.2 Const General: cooperative, healthy appearing and no acute distress Orientation/consciousness: patient oriented x3 HENMT Head: Yes normal to inspection and Yes atraumatic Ears: hearing grossly normal bilaterally General nose exam: Normal external nose present Face and sinus: Yes normal facial exam Eyes General: appearance normal, both eyes and all related structures Pupils: Equal, round and reactive pupils present EOM: EOMs intact bilaterally Neck Neck: Yes normal visual inspection and Yes no meningeal signs Resp Effort & Inspection: normal respiratory effort and no respiratory distress Auscultation: clear to auscultation bilaterally, no crackles, no rales, no rhonchi and no wheezes Cardio Rate: regular rate Heart sounds: S1 normal heart sound present and S2 normal heart sound present GI Inspection: Yes normal to inspection Palpation (GI): Soft to palpation, nontender, no guarding and not rigid General: Yes no CVA tenderness Back/Spine/Pelvis Back: no CVA tenderness Skin Rashes: no rashes Neuro General: patient oriented x3, tone normal and no meningeal signs Cranial nerves: Yes Equal, round and reactive pupils present Extrem Other: Please refer to images above of chronic diabetic ulcer with surrounding erythema and warmth. + expressible drainage and malodor. NV intact Course Course Course Narrative: -1105--leukocytosis of 17.2. H&H stable. VANESSA on CKD. Lactic acid of 3.0. Bilirubin mildly elevated -elevated CRP CT head/brain wo IV con IMPRESSION: No CT evidence of intracranial space-occupying mass, bleed or infarct. No skull fracture. XR chest 1V IMPRESSION: No radiographic evidence of acute cardiopulmonary disease. XR foot RT min 3V IMPRESSION: *? Redemonstration of osteolytic changes involving the head of the second metatarsal with surrounding soft tissue swelling concerning for osteomyelitis. ? *? Hallux valgus. ? *? Underlying degenerative osteoarthritis. ? *? Inferior calcaneal spur. ? >> vancomycin added. Plan to admit for further management Medications Administered Generic Name Dose Route Start Last Admin Trade Name Freq PRN Reason Stop Dose Admin Enoxaparin Sodium 40 mg 09/04/22 12:15 09/04/22 13:04 Enoxaparin Sodium 40 Mg/0.4 Ml Syringe SUBCUT 40 mg Q24H SKYLAR Administration Lactated Ringer's 1,000 mls @ 100 mls/hr 09/04/22 12:19 09/04/22 13:05 Lr IVCONT 09/04/22 22:18 100 mls/hr .Q10H ONE Administration Piperacillin Sod/Tazobactam 50 mls @ 100 mls/hr 09/04/22 18:00 09/04/22 17:12 Sod 2.25 gm/ Sodium Chloride IV 100 mls/hr Q6H SKYLAR Administration Insulin Human Lispro 0 unit 09/04/22 16:30 09/04/22 17:12 Insulin Lispro 100 Unit/Ml 3 Ml Vial SUBCUT 2 unit QIDACHS SKYLAR Administration Protocol Sodium Chloride 3 ml 09/04/22 16:00 09/04/22 15:10 0.9 % Sodium Chloride Flush 3 Ml Syringe IVFLUSH Not Given QSHIFT SKYLAR Discontinued Medications Generic Name Dose Route Start Last Admin Trade Name Marva PRN Reason Stop Dose Admin Acetaminophen 975 mg 09/04/22 09:47 09/04/22 10:49 Acetaminophen 325 Mg Tablet PO 09/04/22 09:48 975 mg ONCE ONE Administration Sodium Chloride 1,000 mls @ 999 mls/hr 09/04/22 10:00 09/04/22 11:58 Ns IV 09/04/22 11:00 Infused .Q1H1M SKYLAR Infusion Piperacillin Sod/Tazobactam 50 mls @ 100 mls/hr 09/04/22 09:50 09/04/22 11:23 Sod 3.375 gm/ Sodium Chloride IV 09/04/22 10:19 Infused ONCE ONE Infusion Vancomycin HCl 1,000 mg/ 535 mls @ 267.5 mls/hr 09/04/22 11:09 09/04/22 15:10 Vancomycin HCl 750 mg/ Sodium IV 09/04/22 13:08 Infused Chloride ONCE ONE Infusion Lactated Ringer's 500 mls @ 999 mls/hr 09/04/22 11:15 09/04/22 13:13 Lr IV 09/04/22 11:45 Infused .Q31M SKYLAR Infusion Medical Decision Making Medical Decision Making MDM Narrative: 57-year-old male with a PMH significant for CKD stage 3, NEEMA, HLD,?BPH, bipolar disorder, diabetes, and hx of diabetic foot ulcer w/ osteomyelitis who presents to the ED via EMS from home complaining of generalized fatigue/weakness, lightheadedness, dizziness described as feeling off balance/on a boat, with fall this morning around 3AM when up using the bathroom. On exam febrile to 102.6 rectally, heart rate 99, chills notable on exam, lungs CTA, abdomen soft/nontender, please refer to images above of infected ulcer with no odor and drainage. Concern for osteomyelitis vs cellulitis. Lower suspicion for DVT, pneumonia, UTI. concern for dehydration/metabolic abnormalities and orthostasis. Lower suspicion for CVA/TIA Plan: EKG, labs, UA, CXR, head CT, foot x-ray, lactic/cultures, empiric IV antibiotics, admission Please refer to course for remaining clinical decision making, interpretation of labs/imaging results, and discussions with consultants and/or family members. Differential Diagnosis Differential Diagnoses: The differential diagnosis associated with the presentation includes As above Admission/Observation Consideration of admission/observation: Escalation of care including admission/observation considered Lab Data MDM Lab Attestation statement: I reviewed the patient's lab results. 09/04/22 10:05 09/04/22 10:05 Labs: Lab Results 09/04/22 09/04/22 09/04/22 Range/Units 10:05 10:05 10:05 WBC 17.2 H (4.8-10.8) X10*3/uL RBC 4.27 L (4.60-5.80) X10*6/uL Hgb 12.7 L (14.0-18.0) g/dl Hct 37.9 L (42.0-52.0) % MCV 88.8 (80.0-98.0) fL MCH 29.7 (27.0-33.0) pg MCHC 33.5 (31.0-36.0) g/dl RDW 14.6 (11.0-16.0) % Plt Count 378 (160-400) X10*3/uL MPV 8.8 L (9.4-12.4) fL Immature Gran % (Auto) 0.6 H (0.0-0.4) % Neut % (Auto) 88.2 H (45-73) % Lymph % (Auto) 3.6 L (20-40) % [place] % (Auto) 7.2 (2-11) % Eos % (Auto) 0.2 (0-4) % Baso % (Auto) 0.2 (0-2) % Lymph # (Auto) 0.6 L (1.2-4.9) X10*3/uL [place] # (Auto) 1.2 (0.1-1.2) X10*3/uL Eos # (Auto) 0.0 (0.0-0.4) X10*3/uL Baso # (Auto) 0.0 (0.0-0.2) X10*3/uL Abs Immat Gran (auto) 0.10 H (0.00-0.03) X10*3/uL Absolute Neuts (auto) 15.1 H (2.0-8.3) x10*3/uL Absolute Nucleated RBC 0.000 (0.0-0.012) X10*3/uL Nucleated RBC % (auto) 0.0 (0.0-0.2) /100WBC ESR 46 H (0-15) MM/HR PT 14.4 H (10.0-13.1) SEC INR 1.2 H (0.9-1.1) Sodium (135-145) mmol/L Potassium (3.3-5.1) mmol/L Chloride (96-108) mmol/L Carbon Dioxide (22-29) mmol/L Anion Gap (12-20) BUN (9-16) mg/dL Creatinine (0.5-1.4) mg/dL Estim Creat Clear Calc Estimated GFR Random Glucose (60-115) mg/dL Lactic Acid (0.5-2.0) mmol/L Calcium (8.4-10.2) mg/dL Magnesium (1.6-2.6) mg/dL Total Bilirubin (0.0-1.0) mg/dL Direct Bilirubin (0.0-0.5) mg/dL AST (5-37) U/L ALT (0-40) U/L Alkaline Phosphatase (39-117) U/L Total Creatine Kinase (38-174) U/L Troponin I High Sens (<3.5-35.0) ng/L C-Reactive Protein (< or = 0.50) mg/dL B-Natriuretic Peptide (<100) pg/mL Total Protein (6.5-8.0) g/dL Albumin (3.5-5.0) g/dL Influenza Type A (PCR) (Negative) Influenza Type B (PCR) (Negative) RSV RNA Qual (PCR) (Negative) SARS-CoV-2 RNA (RT-PCR) (Negative) 09/04/22 09/04/22 09/04/22 Range/Units 10:05 10:05 10:05 WBC (4.8-10.8) X10*3/uL RBC (4.60-5.80) X10*6/uL Hgb (14.0-18.0) g/dl Hct (42.0-52.0) % MCV (80.0-98.0) fL MCH (27.0-33.0) pg MCHC (31.0-36.0) g/dl RDW (11.0-16.0) % Plt Count (160-400) X10*3/uL MPV (9.4-12.4) fL Immature Gran % (Auto) (0.0-0.4) % Neut % (Auto) (45-73) % Lymph % (Auto) (20-40) % [place] % (Auto) (2-11) % Eos % (Auto) (0-4) % Baso % (Auto) (0-2) % Lymph # (Auto) (1.2-4.9) X10*3/uL [place] # (Auto) (0.1-1.2) X10*3/uL Eos # (Auto) (0.0-0.4) X10*3/uL Baso # (Auto) (0.0-0.2) X10*3/uL Abs Immat Gran (auto) (0.00-0.03) X10*3/uL Absolute Neuts (auto) (2.0-8.3) x10*3/uL Absolute Nucleated RBC (0.0-0.012) X10*3/uL Nucleated RBC % (auto) (0.0-0.2) /100WBC ESR (0-15) MM/HR PT (10.0-13.1) SEC INR (0.9-1.1) Sodium 137 (135-145) mmol/L Potassium 4.4 (3.3-5.1) mmol/L Chloride 101 (96-108) mmol/L Carbon Dioxide 22 (22-29) mmol/L Anion Gap 18 (12-20) BUN 27 H (9-16) mg/dL Creatinine 1.97 H (0.5-1.4) mg/dL Estim Creat Clear Calc 38.9 Estimated GFR 35 Random Glucose 187 H (60-115) mg/dL Lactic Acid 3.0 H* (0.5-2.0) mmol/L Calcium 8.5 (8.4-10.2) mg/dL Magnesium 1.8 (1.6-2.6) mg/dL Total Bilirubin 2.2 H (0.0-1.0) mg/dL Direct Bilirubin 0.6 H (0.0-0.5) mg/dL AST 28 (5-37) U/L ALT 27 (0-40) U/L Alkaline Phosphatase 102 (39-117) U/L Total Creatine Kinase (38-174) U/L Troponin I High Sens 10.9 (<3.5-35.0) ng/L C-Reactive Protein 14.69 H (< or = 0.50) mg/dL B-Natriuretic Peptide (<100) pg/mL Total Protein 7.1 (6.5-8.0) g/dL Albumin 3.4 L (3.5-5.0) g/dL Influenza Type A (PCR) (Negative) Influenza Type B (PCR) (Negative) RSV RNA Qual (PCR) (Negative) SARS-CoV-2 RNA (RT-PCR) (Negative) 09/04/22 09/04/22 09/04/22 Range/Units 10:05 10:41 10:42 WBC (4.8-10.8) X10*3/uL RBC (4.60-5.80) X10*6/uL Hgb (14.0-18.0) g/dl Hct (42.0-52.0) % MCV (80.0-98.0) fL MCH (27.0-33.0) pg MCHC (31.0-36.0) g/dl RDW (11.0-16.0) % Plt Count (160-400) X10*3/uL MPV (9.4-12.4) fL Immature Gran % (Auto) (0.0-0.4) % Neut % (Auto) (45-73) % Lymph % (Auto) (20-40) % [place] % (Auto) (2-11) % Eos % (Auto) (0-4) % Baso % (Auto) (0-2) % Lymph # (Auto) (1.2-4.9) X10*3/uL [place] # (Auto) (0.1-1.2) X10*3/uL Eos # (Auto) (0.0-0.4) X10*3/uL Baso # (Auto) (0.0-0.2) X10*3/uL Abs Immat Gran (auto) (0.00-0.03) X10*3/uL Absolute Neuts (auto) (2.0-8.3) x10*3/uL Absolute Nucleated RBC (0.0-0.012) X10*3/uL Nucleated RBC % (auto) (0.0-0.2) /100WBC ESR (0-15) MM/HR PT (10.0-13.1) SEC INR (0.9-1.1) Sodium (135-145) mmol/L Potassium (3.3-5.1) mmol/L Chloride (96-108) mmol/L Carbon Dioxide (22-29) mmol/L Anion Gap (12-20) BUN (9-16) mg/dL Creatinine (0.5-1.4) mg/dL Estim Creat Clear Calc Estimated GFR Random Glucose (60-115) mg/dL Lactic Acid (0.5-2.0) mmol/L Calcium (8.4-10.2) mg/dL Magnesium (1.6-2.6) mg/dL Total Bilirubin (0.0-1.0) mg/dL Direct Bilirubin (0.0-0.5) mg/dL AST (5-37) U/L ALT (0-40) U/L Alkaline Phosphatase (39-117) U/L Total Creatine Kinase 57 (38-174) U/L Troponin I High Sens (<3.5-35.0) ng/L C-Reactive Protein (< or = 0.50) mg/dL B-Natriuretic Peptide 87 (<100) pg/mL Total Protein (6.5-8.0) g/dL Albumin (3.5-5.0) g/dL Influenza Type A (PCR) NEGATIVE (Negative) Influenza Type B (PCR) NEGATIVE (Negative) RSV RNA Qual (PCR) NEGATIVE (Negative) SARS-CoV-2 RNA (RT-PCR) NEGATIVE (Negative) Radiology Impression Discussion of test interpretation with radiology: I have reviewed the radiologist's reading. External Record Review External record reviewed: Inpatient record, Office record, Outpatient record, Prior outpatient labs, Prior outpatient radiology, Primary care record and Outside ED record Critical Care Time Critical Care Time Critical Care Time: Yes Total Critical Care Time: 50 Attestation: I have personally provided critical care time exclusive of time spent on separately billable procedures. Time includes review of lab data, radiology results, discussion with consultants, and monitoring for potential decompensation. Intervention performed as documented. Discharge Plan Discharge Clinical Impression: Osteomyelitis Patient Disposition: Admitted As Inpatient Interventions: Admission Worksheet (ED) Last Done: 09/04/22 15:00 Discharge Date/Time: 09/04/22 15:01
--- NOTE | 2022-09-04 09:47 | ECG_ITS ---
Test Reason : DIZZINESS Blood Pressure : / mmHG Vent. Rate : 092 BPM Atrial Rate : 092 BPM P-R Int : 134 ms QRS Dur : 080 ms QT Int : 352 ms P-R-T Axes : 045 008 028 degrees QTc Int : 435 ms Normal sinus rhythm Normal ECG When compared with ECG of 18-AUG-2022 15:13, Premature ventricular complexes are no longer Present Referred By: Alexandra Angeles Electronically Signed By:Sharan Gonzales
[2022-09-04 10:13] LABS: MANUAL DIFF FLAG NO
[2022-09-04 10:16] LABS: Basophils Percent Auto 0.2 % (0-2); Eosinophils Percent Auto 0.2 % (0-4); Hematocrit 37.9 % (42.0-52.0); Hemoglobin 12.7 g/dl (14.0-18.0); Imm Gran Pct Auto 0.6 % (0.0-0.4); Lymphocytes Absolute Auto 0.6 X10*3/uL (1.2-4.9); Lymphocytes Percent Auto 3.6 % (20-40); Mean Corpuscular HGB Conc 33.5 g/dl (31.0-36.0); Mean Corpuscular Hemoglobin 29.7 pg (27.0-33.0); Mean Corpuscular Volume 88.8 fL (80.0-98.0); Mean Platelet Volume 8.8 fL (9.4-12.4); Monocytes Absolute Auto 1.2 X10*3/uL (0.1-1.2); Monocytes Percent Auto 7.2 % (2-11); Neutrophils Absolute Auto 15.1 x10*3/uL (2.0-8.3); Neutrophils Percent Auto 88.2 % (45-73); Platelet Count 378 X10*3/uL (160-400); Red Blood Count 4.27 X10*6/uL (4.60-5.80); Red Cell Distribution Width 14.6 % (11.0-16.0); White Blood Count 17.2 X10*3/uL (4.8-10.8)
[2022-09-04 10:28] LABS: INTERNATIONAL NORM RATIO 1.2 (0.9-1.1); Prothrombin Time 14.4 SEC (10.0-13.1)
[2022-09-04 10:35] LABS: Alanine Aminotransferase 27 U/L (0-40); Albumin Level 3.4 g/dL (3.5-5.0); Alkaline Phosphatase 102 U/L (39-117); Anion Gap 18 (12-20); Aspartate Amino Transferase 28 U/L (5-37); Bilirubin Direct 0.6 mg/dL (0.0-0.5); Bilirubin Total 2.2 mg/dL (0.0-1.0); Blood Urea Nitrogen 27 mg/dL (9-16); C Reactive Protein 14.69 mg/dL (< or = 0.50); Calcium 8.5 mg/dL (8.4-10.2); Carbon Dioxide 22 mmol/L (22-29); Chloride 101 mmol/L (96-108); Creatinine Clr Calc Pharmacy 38.9; Estimated Glomerular Filt Rate 35; Glucose Random 187 mg/dL (60-115); Magnesium 1.8 mg/dL (1.6-2.6); Potassium 4.4 mmol/L (3.3-5.1); Sodium 137 mmol/L (135-145); Total Protein 7.1 g/dL (6.5-8.0)
[2022-09-04 10:36] LABS: B Type Natriuretic Peptide 87 pg/mL (<100)
--- NOTE | 2022-09-04 10:37 | PC.NURSE ---
CRITICAL LACTIC 3.0 RECEIVED. PRIMARY RN STEPHAN + DARSHANA AWARE. TRINO HERNANDEZ AWARE.
[2022-09-04 10:39] LABS: Troponin-I High Sensitivity 10.9 ng/L (<3.5-35.0)
[2022-09-04] MEDS: 0.9 % Sodium Chloride 1,000 ML 999 ML IV (10:46)
[2022-09-04] MEDS: Piperacillin Sodium/Tazobactam 3.375 GM in 0.9 % Sodium Chloride 50 ML IV (10:46)
[2022-09-04] MEDS: Acetaminophen 325 MG TABLET 975 MG PO (10:49)
--- NOTE | 2022-09-04 10:55 | PC.NURSE ---
Pt on stretcher, airway open and patent, no difficulty breathing, equal chest rise and fall. Pt a&ox4. Pt skin normal for ethnicity, slightly jaundice, warm, and dry. Pt has a chronic open wound on the bottom of right foot, about the size of a nickel, with fowl smelling drainage. Pt has reports going to wound clinic. Pt denies any pain at this time. Pt reports swaying dizziness since this am, all neuros intact. No facial droop, no arm drift, equal and normal strength, speech clear. Pt denies a headache.
[2022-09-04 11:15] LABS: Erythrocyte Sedimentation Rate 46 MM/HR (0-15)
--- NOTE | 2022-09-04 11:16 | P.HPHOSP_ITS ---
History of Present Illness Date of Service: 09/04/22 Attending physician on admission: Santino Coates Chief Complaint: Dizziness, fall Pt is a 57-year-old male with a PMH significant for CKD stage 3, NEEMA, HLD,?BPH, bipolar disorder, diabetes, orthostatic hypotension, and hx of diabetic foot ulcer w/ osteomyelitis who presents to the ED for generalized weakness, lightheadedness, dizziness, and fall this morning at 03:00 when he got up to use the bathroom. Also experienced fever and chills. Pt Iranian-speaking only; network operations technician services utilized.?Pt denies hitting head or having pain from fall.Pt has a chronic open diabetic foot ulcer on the plantar surface of his right foot since at least January 2021, followed by wound care clinic. Last visit last week when they performed a treatment with synthetic skin. Patient denies any foot or leg pain, but notes wound has been bleeding some lately, though he was unclear when he first noticed it. Patient denies all other symptoms: No nausea, vomiting, abdominal pain. Denies chest pain/pressure, palpitations. No shortness of breath. Of note, patient was recently hospitalized for orthostatic hypertension and was started on midodrine. Pt says he has been doing well with the medication with no lightheadedness or dizziness until this morning. In the ED patient was febrile at 102.6 rectally. Lbs were significant for leukocytosis of 17.2, stable H&H of 12.7/37.9, ESR 46, elevated BUN of 27, elevated creatinine 1.97 (above baseline of 1.40), renal glucose 187, lactic acid 3.0, total bilirubin 2.2, C reactive protein of 14.69. CXR showed no acute evidence of cardiopulmonary disease. X-ray of right foot showed osteolytic ch anges involving the head of the 2nd metatarsal surrounding soft tissue swelling concerning for osteomyelitis. CT?of head: No evidence of intracranial space- occupying mass, bleed or infarct, no skull fracture. EKG demonstrated normal sinus rhythm without evidence of ST elevation or depression. Pt was treated with IVF, Zosyn, and vanco. Pt will be admitted to the hospital for treatment and further evaluation of osteomyelitis of the right foot. Review of Systems Review of Systems: Lightheadedness, dizziness with fall Denies head strike Bleeding and drainage from chronic nonhealing, open wound on right foot Fever, chills since 03:00 Denies chest pain/pressure, palpitations No right foot or leg pain Denies nausea, vomiting, diarrhea, abdominal pain Yes all other systems are reviewed and are negative [facility] Medical History (Updated 09/05/22 @ 12:18 by Zac Otero MD) Anemia Anemia in chronic kidney disease CKD (chronic kidney disease) CKD (chronic kidney disease) stage 3, GFR 30-59 ml/min CKD stage G3b/A2, GFR 30-44 and albumin creatinine ratio 30-299 mg/g Diabetes type 2, uncontrolled Diabetic polyneuropathy associated with type 2 diabetes mellitus Dyslipidemia Foot osteomyelitis, right Foot ulcer Headache 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 deficiency Left knee pain Microalbuminuria Moderate non-proliferative diabetic retinopathy Morbid obesity NEEMA on CPAP Osteomyelitis PAD (peripheral artery disease) 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 Brother No problems noted. Son No problems noted. Daughter In good health Maternal Grandmother DM (diabetes mellitus) Stroke Surgical History History of eye surgery 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 History of tonsillectomy and adenoidectomy Hx laparoscopic cholecystectomy S/P cataract surgery S/P debridement S/P tooth extraction Status post amputation of toe Social History Household Members: None Housing: Unknown / Unable to assess Unable to assess alcohol history related to: Unable to respond Alcohol intake: never Patient Tobacco Use Status: Never used Tobacco Smoked in Last 30 Days: No e-Cigarette/Vaping Use: Never Used Second Hand Smoke Exposure: No Use of substances other than those prescribed or required for medical reasons: Unknown Substance Use Type: Marijuana Currently Displaying Signs/Symptoms of Drug Intoxication Withdrawal: No Advance Directives: Yes Advance Directives on File: Yes Advance Directives Date on File: 08/19/22 Do you have thoughts of harming others: None Nutrition Risks: No Nutritional Risk service: No Current occupational status: disabled Sexual orientation: Did not discuss. Cognitive needs: No Hearing needs: No Vision needs: Yes Meds Allergies Allergy/AdvReac Type Severity Reaction Status Date / Time Sulfa (Sulfonamide Allergy Intermediate hives Verified 09/04/22 09:48 Antibiotics) [SULFA (SULFONAMIDE ANTIBIOTICS)] Active Medications: Current Medications Vancomycin HCl 1,000 mg/Vancomycin HCl 750 mg/ Sodium Chloride 535 mls @ 267.5 mls/hr IV ONCE ONE Stop: 09/04/22 13:08 Lactated Ringer's (Lr) 500 mls @ 999 mls/hr IV .Q31M SKYLAR Stop: 09/04/22 11:45 Pharmacy Consult (Consult Rx Vancomycin Dosing) 1 each MISCELLANE DAILY PRN PRN Reason: Consult order Pharmacy Consult (Consult Rx Perform Med Rec) 1 each MISCELLANE ONCE PRN PRN Reason: Consult order Home Medications Medication Instructions Recorded Confirmed Last Taken Type atorvastatin 10 mg tablet 10 mg PO DAILY 03/23/22 09/04/22 09/03/22 History ergocalciferol (vitamin D2) 1,250 1,250 mcg PO TU@0900 03/23/22 09/04/22 08/30/22 History mcg (50,000 unit) capsule (Vitamin D2) dulaglutide 1.5 mg/0.5 mL 1.5 mg subcut MO@0900 08/18/22 09/04/22 08/29/22 History subcutaneous pen injector (Trulicity) ferrous sulfate 325 mg (65 mg 325 mg PO DAILY 08/18/22 09/04/22 09/03/22 History iron) tablet (FeroSul) fluoxetine 10 mg capsule 10 mg PO DAILY 08/18/22 09/04/22 09/03/22 History hydroxyzine pamoate 25 mg capsule 25 mg PO BID PRN Anxiety 08/18/22 09/04/22 08/18/22 09:00 History trazodone 100 mg tablet 100 mg PO BEDTIME PRN insomnia 08/18/22 09/04/22 09/03/22 History finasteride 5 mg tablet 5 mg PO DAILY 09/04/22 09/04/22 09/03/22 History Physical Exam Vital Signs and Narrative: Vital Signs: Last Vital Signs Temp 102.6 F H 09/04/22 09:33 Pulse 99 09/04/22 09:33 Resp 18 09/04/22 09:33 BP 114/63 09/04/22 09:33 Pulse Ox 94 09/04/22 09:33 O2 Del Method Room Air 09/04/22 09:33 BMI result Body Mass Index 27.2 Constitutional: Alert, in no acute distress. Mental Status: Oriented to person, place and time. Eyes: Pupils are equal, round, and reactive to light. Ear, Nose, and Throat: Oropharynx clear, mucous membranes dry. Ears and nose without deformities. Trachea midline. Respiratory: Clear to auscultation bilaterally. No wheezing, rales, or rhonchi. Cardiovascular: S1, S2 regular. No murmurs, rubs, or gallops. Gastrointestinal: Abdomen soft, non-tender, non-distended. Normal bowel sounds. Neurologic: Cranial nerves II-XII are grossly intact bilaterally. No focal neurological deficits. Moves all extremities spontaneously. Extremities: No edema. Purulent drainage from open wound on the plantar aspect of the second digit on right foot. No erythema but skin of right foot and lower leg warm to the touch. As pictured below. Psychiatric: Normal mood and affect. Results Labs 09/04/22 10:05 09/04/22 10:05 Labs: Laboratory Results - last 24 hr 09/04/22 09/04/22 09/04/22 10:05 10:05 10:05 MCV 88.8 MCH 29.7 MCHC 33.5 RDW 14.6 Plt Count 378 MPV 8.8 L Immature Gran % (Auto) 0.6 H Neut % (Auto) 88.2 H Lymph % (Auto) 3.6 L [place] % (Auto) 7.2 Eos % (Auto) 0.2 Baso % (Auto) 0.2 Lymph # (Auto) 0.6 L [place] # (Auto) 1.2 Eos # (Auto) 0.0 Baso # (Auto) 0.0 Abs Immat Gran (auto) 0.10 H Absolute Neuts (auto) 15.1 H Absolute Nucleated RBC 0.000 Nucleated RBC % (auto) 0.0 ESR 46 H PT 14.4 H INR 1.2 H Anion Gap Estim Creat Clear Calc Estimated GFR Random Glucose Lactic Acid Calcium Magnesium Total Bilirubin Direct Bilirubin AST ALT Alkaline Phosphatase Troponin I High Sens C-Reactive Protein B-Natriuretic Peptide Total Protein Albumin 09/04/22 09/04/22 09/04/22 10:05 10:05 10:05 MCV MCH MCHC RDW Plt Count MPV Immature Gran % (Auto) Neut % (Auto) Lymph % (Auto) [place] % (Auto) Eos % (Auto) Baso % (Auto) Lymph # (Auto) [place] # (Auto) Eos # (Auto) Baso # (Auto) Abs Immat Gran (auto) Absolute Neuts (auto) Absolute Nucleated RBC Nucleated RBC % (auto) ESR PT INR Anion Gap 18 Estim Creat Clear Calc 38.9 Estimated GFR 35 Random Glucose 187 H Lactic Acid 3.0 H* Calcium 8.5 Magnesium 1.8 Total Bilirubin 2.2 H Direct Bilirubin 0.6 H AST 28 ALT 27 Alkaline Phosphatase 102 Troponin I High Sens 10.9 C-Reactive Protein 14.69 H B-Natriuretic Peptide Total Protein 7.1 Albumin 3.4 L 09/04/22 10:05 MCV MCH MCHC RDW Plt Count MPV Immature Gran % (Auto) Neut % (Auto) Lymph % (Auto) [place] % (Auto) Eos % (Auto) Baso % (Auto) Lymph # (Auto) [place] # (Auto) Eos # (Auto) Baso # (Auto) Abs Immat Gran (auto) Absolute Neuts (auto) Absolute Nucleated RBC Nucleated RBC % (auto) ESR PT INR Anion Gap Estim Creat Clear Calc Estimated GFR Random Glucose Lactic Acid Calcium Magnesium Total Bilirubin Direct Bilirubin AST ALT Alkaline Phosphatase Troponin I High Sens C-Reactive Protein B-Natriuretic Peptide 87 Total Protein Albumin Imaging Radiologist's Impressions: Impressions Chest X-Ray 09/04/22 10:25 IMPRESSION: No radiographic evidence of acute cardiopulmonary disease. Foot X-Ray 09/04/22 10:25 IMPRESSION: * Redemonstration of osteolytic changes involving the head of the second metatarsal with surrounding soft tissue swelling concerning for osteomyelitis. * Hallux valgus. * Underlying degenerative osteoarthritis. * Inferior calcaneal spur. Head CT 09/04/22 10:30 IMPRESSION: No CT evidence of intracranial space-occupying mass, bleed or infarct. No skull fracture. Assessment and Plan (1) Osteomyelitis: Status: Acute Plan Pt is a 57-year-old male with a PMH significant for CKD stage 3, NEEMA, HLD,?BPH, bipolar disorder, diabetes, orthostatic hypotension, and hx of diabetic foot ulcer w/ osteomyelitis who presents to the ED for evaluation for generalized weakness, lightheadedness, dizziness, and fall this morning at 03:00 when he got up to use the bathroom. Xrays of right foot consistent with osteomyelitis. Pt will be admitted to the hospital for treatment and further evaluation of osteomyelitis of the right foot. Osteomyelitis of 2nd metatarsal of right foot Secondary to chronic non-healing diabetic foot ulcer now with purulent drainage Elevated ESR, CRP, positive x-ray evidence IV abx, renally dosed: Vanco and Zosyn ID consult Wound care consult General surgery consult Follow cultures Sepsis Patient meets sepsis criteria: Fever, WBC, lactic acid of 3.0 Pt receiving IVF. Broad-spectrum antibiotics Repeat lactic acid VANESSA and CKD 3 Creatinine slightly elevated at 1.97, up from baseline of 1.5 Patient received IVF in ED, to receive 1 more L Follow BMP Orthostatic hypotension Continue midodrine BPH BP little soft, hold home meds for now Monitor BP, resume meds as necessary Non insulin-dependent diabetes SSI, continue Trulicity HLD Continue home meds Mood disorder Continue home meds Full Code Attending:?Dr. Dia DVT Prophylaxis: Adarsh Time Spent With Patient Time: Total time managing care of this patient today ____ minutes. Quality Stroke Does the patient have a stroke diagnosis?: No VTE Prior VTE?: No VTE Risk Level:: Medical - moderate - high VTE Device Contraindication: Treatment Not Indicated VTE Drug Contraindication: N/A - Med Ordered
[2022-09-04 11:30] LABS: Influenza A PCR NEGATIVE (Negative); Influenza B PCR NEGATIVE (Negative); Resp Syncy Virus RNA Qual PCR NEGATIVE (Negative); SARS COV2 PCR INHOUSE NEGATIVE (Negative)
[2022-09-04] MEDS: Lactated Ringers 500 ML 999 ML IV (11:34)
[2022-09-04 11:35] VITALS: BP 110/54; PULSE 83; RESP 18; TEMP 37.5; O2SAT 98
[2022-09-04] MEDS: vancomycin HCL 1,000 MG, vancomycin HCL 750 MG in 0.9 % Sodium Chloride 500 ML 267.5 MG IV (11:59)
[2022-09-04 12:11] LABS: Reflex Lactate? Lactic Acid Added
--- NOTE | 2022-09-04 12:40 | PHA.PROG ---
Admission Date/Time: September 04, 2022 12:15 Indication: SKIN/SKIN STRUCTURE, POSSIBLE OM Weight in k.2 kg Adjusted body weight in Kg: [place] body weight in Kg: Obesity Dosing Indication % IBW: Serum Creatinine - Last 168 Hours 09/04/22 10:05 Creatinine 1.97 H Estimated CrCl and GFR - Last 168 Hours 09/04/22 10:05 Estim Creat Clear Calc 38.9 Estimated GFR 35 Vancomycin Loading Dose: 1750 MG Current Vancomycin Dosing Regimen: 1000 MG Q24H Vancomycin Monitoring using AUC goal of 400 - 600 range with trough as surrogate marker: AUC 497, TROUGH 15.7 Date and Time for next Vancomycin Level to be drawn: 09/06 @1000 Pharmacist Comments on Vancomycin Plan: Vancomycin dosing will take advantage of [employer] as a clinical decision support tool that uses Bayesian modeling to calculate individual patient's pharmacokinetic parameters and forecast the patient's drug concentration time course with the target goal AUC 24 range of 400 - 600 mg/L/hr.
[2022-09-04 13:03] LABS: ~Lactic Acid-LAB USE ONLY 1.2 mmol/L (0.5-2.0)
[2022-09-04] MEDS: Enoxaparin Sodium 40 MG/0.4 ML SYRINGE SUBCUT (13:04)
[2022-09-04] MEDS: Lactated Ringers 1,000 ML 100 ML IVCONT (13:05)
--- NOTE | 2022-09-04 13:14 | PC.NURSE ---
called the floor to give report awaiting a call back
--- NOTE | 2022-09-04 13:19 | PHA.MEDREC ---
Pharmacy Consult ? Medication Reconciliation Pharmacy has completed the medication reconciliation. Spoke to patient who is poor historian of medications. Could name a few medications. Utilized battery container tester services. Used prior discharge from 08/21/22 and claim history to help confirm meds. Patient was able to recognize most medications when the name was provided and what they were for.
[2022-09-04 13:41] VITALS: TEMP 37.7
[2022-09-04 13:58] VITALS: BP 105/45; PULSE 76; RESP 17; TEMP 37.7; O2SAT 96
--- NOTE | 2022-09-04 14:28 | PC.NURSE ---
RN to RN report given to JAN Randle.
[2022-09-04 14:59] VITALS: BMI 28.3
[2022-09-04 15:58] VITALS: BP 103/56; PULSE 72; RESP 20; TEMP 36.2; O2SAT 96
[2022-09-04 16:30] LABS: Glucose, Whole Blood 187 mg/dL (60-115)
[2022-09-04] MEDS: Piperacillin Sodium/Tazobactam 2.25 GM in 0.9 % Sodium Chloride 50 ML IV (17:12)
[2022-09-04] MEDS: Insulin Lispro 100 UNIT/ML 3 ML VIAL SUBCUT (17:12)
[2022-09-04] MEDS: Acetaminophen 325 MG TABLET 650 MG PO (19:51)
[2022-09-04] MEDS: HaloperidoL 5 MG TABLET PO (19:51)
[2022-09-04] MEDS: 0.9 % Sodium Chloride Flush 3 ML SYRINGE IVFLUSH (19:57)
[2022-09-04 20:00] VITALS: BP 139/55; PULSE 92; RESP 18; TEMP 36.6; O2SAT 98
[2022-09-04 20:01] LABS: Glucose, Whole Blood 95 mg/dL (60-115)
[2022-09-05] MEDS: Piperacillin Sodium/Tazobactam 2.25 GM in 0.9 % Sodium Chloride 50 ML IV ×3 (00:52→12:44)
[2022-09-05] MEDS: traZODone HCL 100 MG TABLET PO ×2 (01:41→20:55)
[2022-09-05] MEDS: Acetaminophen 325 MG TABLET 650 MG PO ×2 (01:41→20:55)
[2022-09-05 04:00] VITALS: BP 116/58; RESP 18; TEMP 36.1; O2SAT 96
[2022-09-05 06:39] LABS: Hemoglobin 10.2 g/dl (14.0-18.0); Mean Corpuscular Hemoglobin 30.4 pg (27.0-33.0); Mean Corpuscular Volume 89.6 fL (80.0-98.0); Mean Platelet Volume 9.4 fL (9.4-12.4); Platelet Count 278 X10*3/uL (160-400); Red Blood Count 3.35 X10*6/uL (4.60-5.80); Red Cell Distribution Width 14.8 % (11.0-16.0)
[2022-09-05 07:01] LABS: Anion Gap 10 (12-20); Blood Urea Nitrogen 23 mg/dL (9-16); Calcium 7.8 mg/dL (8.4-10.2); Carbon Dioxide 25 mmol/L (22-29); Chloride 105 mmol/L (96-108); Creatinine Clr Calc Pharmacy 57.9; Estimated Glomerular Filt Rate 54; Glucose Random 106 mg/dL (60-115); Potassium 3.8 mmol/L (3.3-5.1); Sodium 136 mmol/L (135-145)
[2022-09-05 07:37] LABS: Glucose, Whole Blood 111 mg/dL (60-115)
[2022-09-05 08:00] VITALS: BP 140/70; PULSE 86; RESP 18; TEMP 37.7; O2SAT 97
--- NOTE | 2022-09-05 08:28 | HE.PHANOTE ---
Vancomycin dosing SCr improved today. Will increase dose to vancomycun 1500 mg Q24H. new Expectedf AUC 541 with a trough of 15.6. Level still scheduled for 09/06 @ 1000/ Inés Joshi PharmD
[2022-09-05] MEDS: Ferrous Sulfate 324 MG TABLET.DR PO (09:42)
[2022-09-05] MEDS: HaloperidoL 5 MG TABLET PO ×2 (09:42→20:55)
[2022-09-05] MEDS: Midodrine HCl 2.5 MG TABLET PO ×3 (09:42→16:50)
[2022-09-05] MEDS: Finasteride 5 MG TABLET PO (09:42)
[2022-09-05] MEDS: FLUoxetine HCl 10 MG CAPSULE PO (09:42)
[2022-09-05] MEDS: Aspirin 81 MG TAB.CHEW PO (09:42)
[2022-09-05] MEDS: Atorvastatin Calcium 10 MG TABLET PO (09:42)
[2022-09-05] MEDS: 0.9 % Sodium Chloride Flush 3 ML SYRINGE IVFLUSH ×3 (09:43→21:00)
--- NOTE | 2022-09-05 09:53 | MHC.CM.PN ---
D/C plan to be determined pending hospital course, home vs rehab. Pt admitted with osteomyelitis of right foot s/p fall at home. japanese interpreter Eboni present. Pt HCP/daughter Glenis present during visit. No change requested to HCP at this time. Pt was living alone, indep with no services/DME prior to hospitalization. PCP: Xochilt Singh Vax: Idalia x 3
[2022-09-05 11:51] LABS: Glucose, Whole Blood 154 mg/dL (60-115)
--- NOTE | 2022-09-05 12:14 | PM.CNGS ---
History of Present Illness Consult details Consult date: 09/05/22 Narrative: 57-year-old male referred for a foot ulcer with osteomyelitis. He has a long history of multiple medical problems including diabetes, obesity, chronic kidney disease along with schizoaffective disorder. He was brought to the ER yesterday because of weakness, lightheadedness and dizziness. He he had reported in of fever and chills. He was noted to be septic on admission. He has had a foot ulcer on the right side for years. He had an x-ray therefore showing suggestion of osteomyelitis of the 2nd metatarsal head. Review of his records show that I have seen him in the past for this same ulcer in 2020. His x-ray looks similar as well. He has an amputation with the toe on the right side as well in 2011. Review of Systems Constitutional: Constitutional: Reports chills and Reports fever(s) Cardiovascular: Cardiovascular: Denies chest pain Respiratory: Respiratory: Denies cough Gastrointestinal: Gastrointestinal: Denies abdominal pain Genitourinary: Genitourinary: Reports nocturia [facility] Past Medical History Medical History (Updated 09/05/22 @ 12:18 by Zac Otero MD) Anemia Anemia in chronic kidney disease CKD (chronic kidney disease) CKD (chronic kidney disease) stage 3, GFR 30-59 ml/min CKD stage G3b/A2, GFR 30-44 and albumin creatinine ratio 30-299 mg/g Diabetes type 2, uncontrolled Diabetic polyneuropathy associated with type 2 diabetes mellitus Dyslipidemia Foot osteomyelitis, right Foot ulcer Headache 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 deficiency Left knee pain Microalbuminuria Moderate non-proliferative diabetic retinopathy Morbid obesity NEEMA on CPAP Osteomyelitis PAD (peripheral artery disease) Patellofemoral arthritis of 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 Brother No problems noted. Son No problems noted. Daughter In good health Maternal Grandmother DM (diabetes mellitus) Stroke Surgical History Surgical History History of eye surgery 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 History of tonsillectomy and adenoidectomy Hx laparoscopic cholecystectomy S/P cataract surgery S/P debridement S/P tooth extraction Status post amputation of toe Social History Social History Household Members: None Housing: Unknown / Unable to assess Unable to assess alcohol history related to: Unable to respond Alcohol intake: never Patient Tobacco Use Status: Never used Tobacco Smoked in Last 30 Days: No e-Cigarette/Vaping Use: Never Used Second Hand Smoke Exposure: No Use of substances other than those prescribed or required for medical reasons: Unknown Substance Use Type: Marijuana Currently Displaying Signs/Symptoms of Drug Intoxication Withdrawal: No Advance Directives: Yes Advance Directives on File: Yes Advance Directives Date on File: 08/19/22 Do you have thoughts of harming others: None Nutrition Risks: No Nutritional Risk service: No Current occupational status: disabled Sexual orientation: Did not discuss. Cognitive needs: No Hearing needs: No Vision needs: Yes Meds Allergies Allergy/AdvReac Type Severity Reaction Status Date / Time Sulfa (Sulfonamide Allergy Intermediate hives Verified 09/04/22 09:48 Antibiotics) [SULFA (SULFONAMIDE ANTIBIOTICS)] Active Medications: Current Medications Acetaminophen (Acetaminophen 325 Mg Tablet) 650 mg PO Q6H PRN PRN Reason: Pain, Mild (Pain Scale 1-3) Last Admin: 09/05/22 01:41 Dose: 650 mg Aspirin (Aspirin 81 Mg Tab.Chew) 81 mg PO DAILY [facility] Last Admin: 09/05/22 09:42 Dose: 81 mg Atorvastatin Calcium (Atorvastatin Calcium 10 Mg Tablet) 10 mg PO DAILY [facility] Last Admin: 09/05/22 09:42 Dose: 10 mg Docusate Sodium (Docusate Sodium 100 Mg Capsule) 100 mg PO DAILY PRN PRN Reason: Constipation Enoxaparin Sodium (Enoxaparin Sodium 40 Mg/0.4 Ml Syringe) 40 mg SUBCUT Q24H [facility] Last Admin: 09/04/22 13:04 Dose: 40 mg Ergocalciferol (Ergocalciferol (Vitamin D2) 1,250 Mcg Capsule) 1,250 mcg PO TU@0900 [facility] Ferrous Sulfate (Ferrous Sulfate 324 Mg Tablet.Dr) 324 mg PO DAILY [facility] Last Admin: 09/05/22 09:42 Dose: 324 mg Finasteride (Finasteride 5 Mg Tablet) 5 mg PO DAILY [facility] Last Admin: 09/05/22 09:42 Dose: 5 mg Fluoxetine HCl (Fluoxetine Hcl 10 Mg Capsule) 10 mg PO DAILY [facility] Last Admin: 09/05/22 09:42 Dose: 10 mg Glucose (Glucose Gel 15 Gm Gel..Gram.) 15 gm PO Q15M PRN; Protocol PRN Reason: per Hypoglycemia Standing Ord. Haloperidol (Haloperidol 5 Mg Tablet) 5 mg PO BID [facility] Last Admin: 09/05/22 09:42 Dose: 5 mg Hydroxyzine HCl (Hydroxyzine Hcl 25 Mg Tablet) 25 mg PO BID PRN PRN Reason: Anxiety Piperacillin Sod/Tazobactam (Sod 2.25 gm/ Sodium Chloride) 50 mls @ 100 mls/hr IV Q6H [facility] Last Infusion: 09/05/22 09:44 Dose: Infused Vancomycin HCl 1,500 mg/ (Sodium Chloride) 500 mls @ 333.333 mls/hr IV Q24H [facility] Dextrose (D10) 250 mls @ 750 mls/hr IV Q15M PRN; Protocol PRN Reason: per Hypoglycemia Standing Ord. Insulin Human Lispro (Insulin Lispro 100 Unit/Ml 3 Ml Vial) 0 unit SUBCUT QIDACHS [facility]; Protocol Last Admin: 09/05/22 09:43 Dose: Not Given Midodrine (Midodrine Hcl 2.5 Mg Tablet) 2.5 mg PO TIDWM [facility] Last Admin: 09/05/22 09:42 Dose: 2.5 mg (Dulaglutide [ Trulicity] 1.5 Mg/0. 5 Ml Pen Injector) 1.5 mg SUBCUT MO@0900 [facility] Ondansetron HCl (Ondansetron Hcl 4 Mg/2 Ml Vial) 4 mg IVPUSH Q8H PRN PRN Reason: Nausea and Vomiting Pharmacy Consult (Consult Rx Vancomycin Dosing) 1 each MISCELLANE DAILY PRN PRN Reason: Consult order Pharmacy Consult (Consult Rx Perform Med Rec) 1 each MISCELLANE ONCE PRN PRN Reason: Consult order Pharmacy Consult (Consult Rx Vancomycin Dosing) 1 each MISCELLANE DAILY PRN PRN Reason: Consult order Sodium Chloride (0.9 % Sodium Chloride Flush 3 Ml Syringe) 3 ml IVFLUSH QSHIFT [facility] Last Admin: 09/05/22 09:43 Dose: 3 ml Trazodone HCl (Trazodone Hcl 100 Mg Tablet) 100 mg PO BEDTIME PRN PRN Reason: insomnia Last Admin: 09/05/22 01:41 Dose: 100 mg Home Medications Medication Instructions Recorded Confirmed Last Taken Type atorvastatin 10 mg tablet 10 mg PO DAILY 03/23/22 09/04/22 09/03/22 History ergocalciferol (vitamin D2) 1,250 1,250 mcg PO TU@0900 03/23/22 09/04/22 08/30/22 History mcg (50,000 unit) capsule (Vitamin D2) dulaglutide 1.5 mg/0.5 mL 1.5 mg subcut MO@0900 08/18/22 09/04/22 08/29/22 History subcutaneous pen injector (Trulicity) ferrous sulfate 325 mg (65 mg 325 mg PO DAILY 08/18/22 09/04/22 09/03/22 History iron) tablet (FeroSul) fluoxetine 10 mg capsule 10 mg PO DAILY 08/18/22 09/04/22 09/03/22 History hydroxyzine pamoate 25 mg capsule 25 mg PO BID PRN Anxiety 08/18/22 09/04/22 08/18/22 09:00 History trazodone 100 mg tablet 100 mg PO BEDTIME PRN insomnia 08/18/22 09/04/22 09/03/22 History finasteride 5 mg tablet 5 mg PO DAILY 09/04/22 09/04/22 09/03/22 History Physical Exam Vital Signs: Vital Signs: Last Vital Signs Temp 99.8 F 09/05/22 08:00 Pulse 86 09/05/22 08:00 Resp 18 09/05/22 08:00 BP 140/70 H 09/05/22 08:00 Pulse Ox 97 09/05/22 08:00 O2 Del Method Room Air 09/05/22 08:00 BMI result Body Mass Index 28.3 Const: Other: Has flat affect, obese looking General: comfortable and no acute distress Orientation/consciousness: patient oriented x3 Neck: Neck: Yes no lymphadenopathy Resp: Auscultation: clear to auscultation bilaterally Cardio: Rhythm: regular rhythm GI: Palpation (GI): Soft to palpation, nontender and no guarding Neuro: General: patient oriented x3 Extrem: Other: Plantar aspect of the right foot with note of an ulcer on the distal area, of the area of the 2nd metatarsal, about 1 cm in diameter, with some scanty drainage, also with a well-healed old amputation site the 3rd toe Results Labs 09/05/22 06:00 09/05/22 06:00 Labs: Abnormal lab results 09/04/22 09/05/22 09/05/22 Range/Units 16:25 06:00 06:00 RBC 3.35 L D (4.60-5.80) X10*6/uL Hgb 10.2 L (14.0-18.0) g/dl Hct 30.0 L D (42.0-52.0) % Anion Gap 10 L (12-20) BUN 23 H (9-16) mg/dL POC Glucose 187 H (60-115) mg/dL Calcium 7.8 L D (8.4-10.2) mg/dL 09/05/22 Range/Units 11:43 RBC (4.60-5.80) X10*6/uL Hgb (14.0-18.0) g/dl Hct (42.0-52.0) % Anion Gap (12-20) BUN (9-16) mg/dL POC Glucose 154 H (60-115) mg/dL Calcium (8.4-10.2) mg/dL Short CBC 09/05/22 Range/Units 06:00 WBC 10.0 (4.8-10.8) X10*3/uL Hgb 10.2 L (14.0-18.0) g/dl Hct 30.0 L D (42.0-52.0) % Plt Count 278 D (160-400) X10*3/uL BMP 09/05/22 09/05/22 06:00 06:00 Sodium 136 Potassium 3.8 Chloride 105 Carbon Dioxide 25 BUN 23 H Creatinine 1.35 Cancelled Calcium 7.8 L D Cardiac Enzymes 09/04/22 Range/Units 10:41 Total Creatine Kinase 57 (38-174) U/L All other labs normal. Laboratory Results WBC 10.0 X10*3/uL (4.8-10.8) 09/05/22 06:00 RBC 3.35 X10*6/uL (4.60-5.80) L D 09/05/22 06:00 Hgb 10.2 g/dl (14.0-18.0) L 09/05/22 06:00 Hct 30.0 % (42.0-52.0) L D 09/05/22 06:00 MCV 89.6 fL (80.0-98.0) 09/05/22 06:00 MCH 30.4 pg (27.0-33.0) 09/05/22 06:00 MCHC 34.0 g/dl (31.0-36.0) 09/05/22 06:00 RDW 14.8 % (11.0-16.0) 09/05/22 06:00 Plt Count 278 X10*3/uL (160-400) D 09/05/22 06:00 MPV 9.4 fL (9.4-12.4) 09/05/22 06:00 Immature Gran % (Auto) 0.6 % (0.0-0.4) H 09/04/22 10:05 Neut % (Auto) 88.2 % (45-73) H 09/04/22 10:05 Lymph % (Auto) 3.6 % (20-40) L 09/04/22 10:05 [place] % (Auto) 7.2 % (2-11) 09/04/22 10:05 Eos % (Auto) 0.2 % (0-4) 09/04/22 10:05 Baso % (Auto) 0.2 % (0-2) 09/04/22 10:05 Lymph # (Auto) 0.6 X10*3/uL (1.2-4.9) L 09/04/22 10:05 [place] # (Auto) 1.2 X10*3/uL (0.1-1.2) 09/04/22 10:05 Eos # (Auto) 0.0 X10*3/uL (0.0-0.4) 09/04/22 10:05 Baso # (Auto) 0.0 X10*3/uL (0.0-0.2) 09/04/22 10:05 Abs Immat Gran (auto) 0.10 X10*3/uL (0.00-0.03) H 09/04/22 10:05 Absolute Neuts (auto) 15.1 x10*3/uL (2.0-8.3) H 09/04/22 10:05 Absolute Nucleated RBC 0.000 X10*3/uL (0.0-0.012) 09/05/22 06:00 Nucleated RBC % (auto) 0.0 /100WBC (0.0-0.2) 09/05/22 06:00 ESR 46 MM/HR (0-15) H 09/04/22 10:05 PT 14.4 SEC (10.0-13.1) H 09/04/22 10:05 INR 1.2 (0.9-1.1) H 09/04/22 10:05 Sodium 136 mmol/L (135-145) 09/05/22 06:00 Potassium 3.8 mmol/L (3.3-5.1) 09/05/22 06:00 Chloride 105 mmol/L (96-108) 09/05/22 06:00 Carbon Dioxide 25 mmol/L (22-29) 09/05/22 06:00 Anion Gap 10 (12-20) L 09/05/22 06:00 BUN 23 mg/dL (9-16) H 09/05/22 06:00 Creatinine 1.35 mg/dL (0.5-1.4) 09/05/22 06:00 Creatinine Cancelled 09/05/22 06:00 Estim Creat Clear Calc 57.9 09/05/22 06:00 Estim Creat Clear Calc Cancelled 09/05/22 06:00 Estimated GFR 54 09/05/22 06:00 Estimated GFR Cancelled 09/05/22 06:00 POC Glucose 154 mg/dL (60-115) H 09/05/22 11:43 Random Glucose 106 mg/dL (60-115) 09/05/22 06:00 Lactic Acid 3.0 mmol/L (0.5-2.0) H* 09/04/22 10:05 Lactic Acid F/U @ 2Hr 1.2 mmol/L (0.5-2.0) 09/04/22 12:43 Calcium 7.8 mg/dL (8.4-10.2) L D 09/05/22 06:00 Magnesium 1.8 mg/dL (1.6-2.6) 09/04/22 10:05 Total Bilirubin 2.2 mg/dL (0.0-1.0) H 09/04/22 10:05 Direct Bilirubin 0.6 mg/dL (0.0-0.5) H 09/04/22 10:05 AST 28 U/L (5-37) 09/04/22 10:05 ALT 27 U/L (0-40) 09/04/22 10:05 Alkaline Phosphatase 102 U/L (39-117) 09/04/22 10:05 Total Creatine Kinase 57 U/L (38-174) 09/04/22 10:41 Troponin I High Sens 10.9 ng/L (<3.5-35.0) 09/04/22 10:05 C-Reactive Protein 14.69 mg/dL (< or = 0.50) H 09/04/22 10:05 B-Natriuretic Peptide 87 pg/mL (<100) 09/04/22 10:05 Total Protein 7.1 g/dL (6.5-8.0) 09/04/22 10:05 Albumin 3.4 g/dL (3.5-5.0) L 09/04/22 10:05 Influenza Type A (PCR) NEGATIVE (Negative) 09/04/22 10:42 Influenza Type B (PCR) NEGATIVE (Negative) 09/04/22 10:42 RSV RNA Qual (PCR) NEGATIVE (Negative) 09/04/22 10:42 SARS-CoV-2 RNA (RT-PCR) NEGATIVE (Negative) 09/04/22 10:42 Impressions Chest X-Ray 09/04/22 10:25 IMPRESSION: No radiographic evidence of acute cardiopulmonary disease. Foot X-Ray 09/04/22 10:25 IMPRESSION: * Redemonstration of osteolytic changes involving the head of the second metatarsal with surrounding soft tissue swelling concerning for osteomyelitis. * Hallux valgus. * Underlying degenerative osteoarthritis. * Inferior calcaneal spur. Head CT 09/04/22 10:30 IMPRESSION: No CT evidence of intracranial space-occupying mass, bleed or infarct. No skull fracture. Assessment and Plan (1) Osteomyelitis: Status: Acute (2) Foot ulcer: Status: Acute He has a foot ulcer on the right foot as described above. X-ray is suggestive of osteomyelitis of the 2nd tarsal at this area. I clean the ulcer and debrided this with gauze. I wrapped the foot with Kerlix roll after dressings were placed. He will benefit from a prolonged course of IV antibiotic treatment. Good sugar control is also important. He will need good wound care as well. If he does not show any improvement, he may benefit from amputation of the 2nd distal metatarsal. Time Spent With Patient Time: Total time managing care of this patient today ____ minutes. Procedures Date of Service Date of Service: 09/05/22
[2022-09-05] MEDS: Insulin Lispro 100 UNIT/ML 3 ML VIAL SUBCUT (12:42)
[2022-09-05] MEDS: Enoxaparin Sodium 40 MG/0.4 ML SYRINGE SUBCUT (12:43)
[2022-09-05] MEDS: vancomycin HCL 1,500 MG in 0.9 % Sodium Chloride 500 ML 333.33 MG IV (12:57)
[2022-09-05 13:03] VITALS: BP 145/66; PULSE 92; RESP 18; TEMP 37.2; O2SAT 97
--- NOTE | 2022-09-05 14:20 | P.PNIM_ITS ---
Subjective Subjective Date of Service: 09/05/22 Interval History: Denies right foot pain, no significant drainage noted overnight, denies fever chills, patient provide history of chills and shakiness on and off for last couple weeks at home noted to have temp of 102.6 degrees on arrival to ED no high temperatures since admission, tolerating diet no nausea, no vomiting, no abdominal pain, no diarrhea, no other acute issues overnight. Review of Systems Review of Systems: Yes all other systems are reviewed and are negative Physical Exam Vital Signs: Vital Signs: Last Vital Signs Temp 98.9 F 09/05/22 13:03 Pulse 92 09/05/22 13:03 Resp 18 09/05/22 13:03 BP 145/66 H 09/05/22 13:03 Pulse Ox 97 09/05/22 13:03 O2 Del Method Room Air 09/05/22 13:03 BMI result Body Mass Index 28.3 Const: Other: General resting comfortably in no acute distress. Neck supple no JVD. CVS regular rate rhythm, Respiratory lungs clear to auscultation, no respiratory distress, no wheeze, no rhonchi. Gastrointestinal abdomen soft, nontender, bowel sounds audible,no guarding , no rigidity. Extremities no edema. Right foot dressing in place no drainage noted Neuro nonfocal, speech clear. No tremors Skin no rash Psych appropriate affect Objective Data Active Medications Acetaminophen (Acetaminophen 325 Mg Tablet) 650 mg PO Q6H PRN PRN Reason: Pain, Mild (Pain Scale 1-3) Last Admin: 09/05/22 01:41 Dose: 650 mg Documented By: REGLA Aspirin (Aspirin 81 Mg Tab.Chew) 81 mg PO DAILY [facility]PL[facility]ED BY [facility] Last Admin: 09/05/22 09:42 Dose: 81 mg Documented By: FLORY Atorvastatin Calcium (Atorvastatin Calcium 10 Mg Tablet) 10 mg PO DAILY [facility]PL[facility]ED BY [facility] Last Admin: 09/05/22 09:42 Dose: 10 mg Documented By: FLORY Docusate Sodium (Docusate Sodium 100 Mg Capsule) 100 mg PO DAILY PRN PRN Reason: Constipation Enoxaparin Sodium (Enoxaparin Sodium 40 Mg/0.4 Ml Syringe) 40 mg SUBCUT Q24H [facility]PL[facility]ED BY [facility] Last Admin: 09/05/22 12:43 Dose: 40 mg Documented By: FLORY Ergocalciferol (Ergocalciferol (Vitamin D2) 1,250 Mcg Capsule) 1,250 mcg PO TU@0900 REPLACED BY [facility] Ferrous Sulfate (Ferrous Sulfate 324 Mg Tablet.) 324 mg PO DAILY [facility]PLACED BY [facility] Last Admin: 09/05/22 09:42 Dose: 324 mg Documented By: FLORY Finasteride (Finasteride 5 Mg Tablet) 5 mg PO DAILY [facility] BY [facility] Last Admin: 09/05/22 09:42 Dose: 5 mg Documented By: FLORY Fluoxetine HCl (Fluoxetine Hcl 10 Mg Capsule) 10 mg PO DAILY [facility]PL[facility]ED BY [facility] Last Admin: 09/05/22 09:42 Dose: 10 mg Documented By: FLORY Glucose (Glucose Gel 15 Gm Gel..Gram.) 15 gm PO Q15M PRN; Protocol PRN Reason: per Hypoglycemia Standing Ord. Haloperidol (Haloperidol 5 Mg Tablet) 5 mg PO BID REPLACED BY [facility] Last Admin: 09/05/22 09:42 Dose: 5 mg Documented By: FLORY Hydroxyzine HCl (Hydroxyzine Hcl 25 Mg Tablet) 25 mg PO BID PRN PRN Reason: Anxiety Vancomycin HCl 1,500 mg/ (Sodium Chloride) 500 mls @ 333.333 mls/hr IV Q24H REPLACED BY [facility] Last Admin: 09/05/22 12:57 Dose: 333.33 mls/hr Documented By: FLORY Dextrose (D10) 250 mls @ 750 mls/hr IV Q15M PRN; Protocol PRN Reason: per Hypoglycemia Standing Ord. Cefazolin Sodium 2 gm/ Sodium (Chloride) 50 mls @ 100 mls/hr IV Q12H REPLACED BY [facility] Last Admin: 09/05/22 13:28 Dose: Not Given Documented By: FLORY Non-Admin Reason: per Insulin Human Lispro (Insulin Lispro 100 Unit/Ml 3 Ml Vial) 0 unit SUBCUT QIDACHS REPLACED BY [facility]; Protocol Last Admin: 09/05/22 12:42 Dose: 1 unit Documented By: FLORY Midodrine (Midodrine Hcl 2.5 Mg Tablet) 2.5 mg PO TIDWM REPLACED BY [facility] Last Admin: 09/05/22 12:44 Dose: 2.5 mg Documented By: FLORY (Dulaglutide [ Trulicity] 1.5 Mg/0. 5 Ml Pen Injector) 1.5 mg SUBCUT MO@0900 REPLACED BY [facility] Last Admin: 09/05/22 13:44 Dose: Not Given Documented By: FLORY Non-Admin Reason: Med Not Available Ondansetron HCl (Ondansetron Hcl 4 Mg/2 Ml Vial) 4 mg IVPUSH Q8H PRN PRN Reason: Nausea and Vomiting Pharmacy Consult (Consult Rx Vancomycin Dosing) 1 each MISCELLANE DAILY PRN PRN Reason: Consult order Pharmacy Consult (Consult Rx Perform Med Rec) 1 each MISCELLANE ONCE PRN PRN Reason: Consult order Pharmacy Consult (Consult Rx Vancomycin Dosing) 1 each MISCELLANE DAILY PRN PRN Reason: Consult order Sodium Chloride (0.9 % Sodium Chloride Flush 3 Ml Syringe) 3 ml IVFLUSH QSHIFT [facility] Last Admin: 09/05/22 09:43 Dose: 3 ml Documented By: FLORY Trazodone HCl (Trazodone Hcl 100 Mg Tablet) 100 mg PO BEDTIME PRN PRN Reason: insomnia Last Admin: 09/05/22 01:41 Dose: 100 mg Documented By: REGLA Labs 09/05/22 06:00 09/05/22 06:00 Labs: Laboratory Results - last 24 hr 09/04/22 09/04/22 09/05/22 16:25 19:55 06:00 MCV 89.6 MCH 30.4 MCHC 34.0 RDW 14.8 Plt Count 278 D MPV 9.4 Absolute Nucleated RBC 0.000 Nucleated RBC % (auto) 0.0 Anion Gap Estim Creat Clear Calc Estimated GFR POC Glucose 187 H 95 Random Glucose Calcium 09/05/22 09/05/22 09/05/22 06:00 06:00 07:33 MCV MCH MCHC RDW Plt Count MPV Absolute Nucleated RBC Nucleated RBC % (auto) Anion Gap 10 L Estim Creat Clear Calc 57.9 Cancelled Estimated GFR 54 Cancelled POC Glucose 111 Random Glucose 106 Calcium 7.8 L D 09/05/22 11:43 MCV MCH MCHC RDW Plt Count MPV Absolute Nucleated RBC Nucleated RBC % (auto) Anion Gap Estim Creat Clear Calc Estimated GFR POC Glucose 154 H Random Glucose Calcium Microbiology Microbiology Results: Microbiology 09/04/22 10:41 Blood Culture - Preliminary Blood - Venous Prelim: GPC Gram Stain only 09/04/22 10:05 Blood Culture - Preliminary Blood - Venous Prelim: GPC Gram Stain only Assessment and Plan (1) Osteomyelitis: Status: Acute Plan 57-year-old male with a PMH significant for CKD stage 3, NEEMA, HLD,?BPH, bipolar disorder, diabetes, orthostatic hypotension, and hx of diabetic foot ulcer w/ osteomyelitis who presents to the ED for evaluation for generalized weakness, lightheadedness, dizziness, and fall this morning at 03:00 when he got up to use the bathroom. Xrays of right foot consistent with osteomyelitis. Pt will be admitted to the hospital for treatment and further evaluation of osteomyelitis of the right foot. Sepsis due to diabetic foot ulcer /Osteomyelitis of 2nd metatarsal of right foot No fevers, WBC normalized Elevated ESR, CRP, positive x-ray evidence Status post bedside debridement of ulcer by Dr. Otero foot wrapped with Kerlix roll surgery recommend prolonged course of IV antibiotics and good blood sugar control 2/2 blood culture positive for Gram-positive cocci Case discussed with Dr. Vargas will DC IV Zosyn place patient on IV Kefzol start day 09/05 and continue IV vancomycin started on 09/04, follow final blood culture report and adjust antibiotics VANESSA and CKD 3 Creatinine returned to baseline, DC IV fluids follow BMP closely while on vancomycin. Orthostatic hypotension Continue midodrine BPH continue finasteride Non insulin-dependent diabetes Stable blood sugar, continue SSI, and diabetic diet, Trulicity is non formulary HLD Continue home meds Mood disorder Continue Haldol , trazodone and hydroxyzine Full Code Patient need continued inpatient hospitalization for IV antibiotic treatment for bacteremia and right foot ulcer. Time Spent With Patient Time: Total time managing care of this patient today ____ minutes. Quality Stroke Does the patient have a stroke diagnosis?: No VTE Prior VTE?: No VTE Risk Level:: Medical - moderate - high VTE Device Contraindication: Treatment Not Indicated VTE Drug Contraindication: N/A - Med Ordered
--- NOTE | 2022-09-05 15:34 | HO.WOUNDCONS ---
History of Present Illness Data of Consult Service Date: 09/05/22 Requesting physician: Tia Warren Primary Care Provider: Xochilt Singh MD HPI Reason for consult: nonhealing plantar right foot ulcer [id number]: This patient has been seen weekly at the wound center since June. The 1st Apligraf was placed 1 week prior to his hospitalization. He developed increased drainage in odor. He presented to the hospital on September 04. X-ray shows osteomyelitis at the residual 3rd ray. He is on IV antibiotics. Review of Systems Review of Systems: No new areas of redness. No odor. Denies fever. Complains of feeling tired. [facility] Medical History (Updated 09/05/22 @ 12:18 by Zac Otero MD) Anemia Anemia in chronic kidney disease CKD (chronic kidney disease) CKD (chronic kidney disease) stage 3, GFR 30-59 ml/min CKD stage G3b/A2, GFR 30-44 and albumin creatinine ratio 30-299 mg/g Diabetes type 2, uncontrolled Diabetic polyneuropathy associated with type 2 diabetes mellitus Dyslipidemia Foot osteomyelitis, right Foot ulcer Headache 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 deficiency Left knee pain Microalbuminuria Moderate non-proliferative diabetic retinopathy Morbid obesity NEEMA on CPAP Osteomyelitis PAD (peripheral artery disease) Patellofemoral arthritis of left knee [id number] syndrome Right foot pain Vitamin D deficiency Family History Father Cerebral aneurysm CVD (cardiovascular disease) Stroke Mother DM (diabetes mellitus) Stroke Brother No problems noted. Brother No problems noted. Son No problems noted. Daughter In good health Maternal Grandmother DM (diabetes mellitus) Stroke Surgical History History of eye surgery 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 History of tonsillectomy and adenoidectomy Hx laparoscopic cholecystectomy S/P cataract surgery S/P debridement S/P tooth extraction Status post amputation of toe Social History Household Members: None Housing: Unknown / Unable to assess Unable to assess alcohol history related to: Unable to respond Alcohol intake: never Patient Tobacco Use Status: Never used Tobacco Smoked in Last 30 Days: No e-Cigarette/Vaping Use: Never Used Second Hand Smoke Exposure: No Use of substances other than those prescribed or required for medical reasons: Unknown Substance Use Type: Marijuana Currently Displaying Signs/Symptoms of Drug Intoxication Withdrawal: No Advance Directives: Yes Advance Directives on File: Yes Advance Directives Date on File: 08/19/22 Do you have thoughts of harming others: None Nutrition Risks: No Nutritional Risk service: No Current occupational status: disabled Sexual orientation: Did not discuss. Cognitive needs: No Hearing needs: No Vision needs: Yes Meds Allergies Allergy/AdvReac Type Severity Reaction Status Date / Time Sulfa (Sulfonamide Allergy Intermediate hives Verified 09/04/22 09:48 Antibiotics) [SULFA (SULFONAMIDE ANTIBIOTICS)] Active Medications: Current Medications Acetaminophen (Acetaminophen 325 Mg Tablet) 650 mg PO Q6H PRN PRN Reason: Pain, Mild (Pain Scale 1-3) Last Admin: 09/05/22 01:41 Dose: 650 mg Aspirin (Aspirin 81 Mg Tab.Chew) 81 mg PO DAILY [facility] Last Admin: 09/05/22 09:42 Dose: 81 mg Atorvastatin Calcium (Atorvastatin Calcium 10 Mg Tablet) 10 mg PO DAILY [facility] Last Admin: 09/05/22 09:42 Dose: 10 mg Docusate Sodium (Docusate Sodium 100 Mg Capsule) 100 mg PO DAILY PRN PRN Reason: Constipation Enoxaparin Sodium (Enoxaparin Sodium 40 Mg/0.4 Ml Syringe) 40 mg SUBCUT Q24H [facility] Last Admin: 09/05/22 12:43 Dose: 40 mg Ergocalciferol (Ergocalciferol (Vitamin D2) 1,250 Mcg Capsule) 1,250 mcg PO TU@0900 [facility] Ferrous Sulfate (Ferrous Sulfate 324 Mg Tablet.) 324 mg PO DAILY [facility] Last Admin: 09/05/22 09:42 Dose: 324 mg Finasteride (Finasteride 5 Mg Tablet) 5 mg PO DAILY [facility] Last Admin: 09/05/22 09:42 Dose: 5 mg Fluoxetine HCl (Fluoxetine Hcl 10 Mg Capsule) 10 mg PO DAILY [facility] Last Admin: 09/05/22 09:42 Dose: 10 mg Glucose (Glucose Gel 15 Gm Gel..Gram.) 15 gm PO Q15M PRN; Protocol PRN Reason: per Hypoglycemia Standing Ord. Haloperidol (Haloperidol 5 Mg Tablet) 5 mg PO BID [facility] Last Admin: 09/05/22 09:42 Dose: 5 mg Hydroxyzine HCl (Hydroxyzine Hcl 25 Mg Tablet) 25 mg PO BID PRN PRN Reason: Anxiety Vancomycin HCl 1,500 mg/ (Sodium Chloride) 500 mls @ 333.333 mls/hr IV Q24H [facility] Last Infusion: 09/05/22 14:54 Dose: Infused Dextrose (D10) 250 mls @ 750 mls/hr IV Q15M PRN; Protocol PRN Reason: per Hypoglycemia Standing Ord. Cefazolin Sodium 2 gm/ Sodium (Chloride) 50 mls @ 100 mls/hr IV Q12H [facility] Last Admin: 09/05/22 13:28 Dose: Not Given Insulin Human Lispro (Insulin Lispro 100 Unit/Ml 3 Ml Vial) 0 unit SUBCUT QIDACHS [facility]; Protocol Last Admin: 09/05/22 12:42 Dose: 1 unit Midodrine (Midodrine Hcl 2.5 Mg Tablet) 2.5 mg PO TIDWM [facility] Last Admin: 09/05/22 12:44 Dose: 2.5 mg (Dulaglutide [ Trulicity] 1.5 Mg/0. 5 Ml Pen Injector) 1.5 mg SUBCUT MO@0900 [facility] Last Admin: 09/05/22 14:39 Dose: 1.5 mg Ondansetron HCl (Ondansetron Hcl 4 Mg/2 Ml Vial) 4 mg IVPUSH Q8H PRN PRN Reason: Nausea and Vomiting Pharmacy Consult (Consult Rx Vancomycin Dosing) 1 each MISCELLANE DAILY PRN PRN Reason: Consult order Pharmacy Consult (Consult Rx Perform Med Rec) 1 each MISCELLANE ONCE PRN PRN Reason: Consult order Pharmacy Consult (Consult Rx Vancomycin Dosing) 1 each MISCELLANE DAILY PRN PRN Reason: Consult order Sodium Chloride (0.9 % Sodium Chloride Flush 3 Ml Syringe) 3 ml IVFLUSH QSHIFT [facility] Last Admin: 09/05/22 09:43 Dose: 3 ml Trazodone HCl (Trazodone Hcl 100 Mg Tablet) 100 mg PO BEDTIME PRN PRN Reason: insomnia Last Admin: 09/05/22 01:41 Dose: 100 mg Home Medications Medication Instructions Recorded Confirmed Last Taken Type atorvastatin 10 mg tablet 10 mg PO DAILY 03/23/22 09/04/22 09/03/22 History ergocalciferol (vitamin D2) 1,250 1,250 mcg PO TU@0900 10/09/04/22 08/30/22 History mcg (50,000 unit) capsule (Vitamin D2) dulaglutide 1.5 mg/0.5 mL 1.5 mg subcut MO@0900 08/18/22 09/04/22 08/29/22 History subcutaneous pen injector (Trulicity) ferrous sulfate 325 mg (65 mg 325 mg PO DAILY 08/18/22 09/04/22 09/03/22 History iron) tablet (FeroSul) fluoxetine 10 mg capsule 10 mg PO DAILY 08/18/22 09/04/22 09/03/22 History hydroxyzine pamoate 25 mg capsule 25 mg PO BID PRN Anxiety 08/18/22 09/04/22 08/18/22 09:00 History trazodone 100 mg tablet 100 mg PO BEDTIME PRN insomnia 08/18/22 09/04/22 09/03/22 History finasteride 5 mg tablet 5 mg PO DAILY 09/04/22 09/04/22 09/03/22 History Physical Exam Vital Signs and Narrative: Vital Signs: Last Vital Signs Temp 98.9 F 09/05/22 13:03 Pulse 92 09/05/22 13:03 Resp 18 09/05/22 13:03 BP 145/66 H 09/05/22 13:03 Pulse Ox 97 09/05/22 13:03 O2 Del Method Room Air 09/05/22 13:03 BMI result Body Mass Index 28.3 Dorsalis pedis pulses palpable. No erythema or edema of the foot. The wound bed is nummular. Granular base is appreciated. Moderate slough. No surrounding erythema or maceration. Results Labs 09/05/22 06:00 09/05/22 06:00 Labs: Laboratory Results - last 24 hr 09/04/22 09/04/22 09/05/22 16:25 19:55 06:00 MCV 89.6 MCH 30.4 MCHC 34.0 RDW 14.8 Plt Count 278 D MPV 9.4 Absolute Nucleated RBC 0.000 Nucleated RBC % (auto) 0.0 Anion Gap Estim Creat Clear Calc Estimated GFR POC Glucose 187 H 95 Random Glucose Calcium 09/05/22 09/05/22 09/05/22 06:00 06:00 07:33 MCV MCH MCHC RDW Plt Count MPV Absolute Nucleated RBC Nucleated RBC % (auto) Anion Gap 10 L Estim Creat Clear Calc 57.9 Cancelled Estimated GFR 54 Cancelled POC Glucose 111 Random Glucose 106 Calcium 7.8 L D 09/05/22 11:43 MCV MCH MCHC RDW Plt Count MPV Absolute Nucleated RBC Nucleated RBC % (auto) Anion Gap Estim Creat Clear Calc Estimated GFR POC Glucose 154 H Random Glucose Calcium Assessment and Plan (1) Osteomyelitis: Status: Acute (2) Foot ulcer: Status: Acute Plan 57-year-old male known to the wound center with osteomyelitis associated with this plantar ulcer that we were not aware of. Note that this area was healed in May of 2021. He has already had surgery and further surgical resection is left to the discretion of the surgical team. Alternatively, a moved towards IV antibiotics could be considered for 6 weeks at the discretion of Infectious Disease. I would have to review his old records to determine if this is chronic refractory osteomyelitis. There is no plan for HBO before he entered the hospital. There was some concerns that this might not be the greatest option for him. We are happy to see him after discharge but strongly recommend that while he is in the hospital that surgical osteotomy be considered in the setting of recurrent osteomyelitis in a previously resected metatarsal head. I put silver alginate on the open area which is the best dressing for drainage management. Recommend every other day dressing change with this product. Time Spent With Patient Time: Total time managing care of this patient today ____ minutes.
--- NOTE | 2022-09-05 15:38 | W.PM.IDCN ---
History of Present Illness Data of Consult Service Date: 09/05/22 Requesting physician: Bhupendra Dia Primary Care Provider: Xochilt Singh MD [facility] Reason for consult: right foot infection infection He presents with worsening right foot redness and swelling plantar surface. He has fever and chills and tachycardia. He has gram positive bacteremia,cultures pending. [facility] Past Medical History Medical History (Updated 09/05/22 @ 15:46 by Angela Vargas MD) Anemia Anemia in chronic kidney disease Bacteremia CKD (chronic kidney disease) CKD (chronic kidney disease) stage 3, GFR 30-59 ml/min CKD stage G3b/A2, GFR 30-44 and albumin creatinine ratio 30-299 mg/g Diabetes type 2, uncontrolled Diabetic polyneuropathy associated with type 2 diabetes mellitus Dyslipidemia Foot osteomyelitis, right Foot ulcer Headache 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 deficiency Left knee pain Microalbuminuria Moderate non-proliferative diabetic retinopathy Morbid obesity NEEMA on CPAP Osteomyelitis PAD (peripheral artery disease) Patellofemoral arthritis of left knee [id number] syndrome Right foot pain Vitamin D deficiency Family History Family History Father Cerebral aneurysm CVD (cardiovascular disease) Stroke Mother DM (diabetes mellitus) Stroke Brother No problems noted. Brother No problems noted. Son No problems noted. Daughter In good health Maternal Grandmother DM (diabetes mellitus) Stroke Surgical History Surgical History History of eye surgery 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 History of tonsillectomy and adenoidectomy Hx laparoscopic cholecystectomy S/P cataract surgery S/P debridement S/P tooth extraction Status post amputation of toe Social History Social History Household Members: None Housing: Unknown / Unable to assess Unable to assess alcohol history related to: Unable to respond Alcohol intake: never Patient Tobacco Use Status: Never used Tobacco Smoked in Last 30 Days: No e-Cigarette/Vaping Use: Never Used Second Hand Smoke Exposure: No Use of substances other than those prescribed or required for medical reasons: Unknown Substance Use Type: Marijuana Currently Displaying Signs/Symptoms of Drug Intoxication Withdrawal: No Advance Directives: Yes Advance Directives on File: Yes Advance Directives Date on File: 08/19/22 Do you have thoughts of harming others: None Nutrition Risks: No Nutritional Risk service: No Current occupational status: disabled Sexual orientation: Did not discuss. Cognitive needs: No Hearing needs: No Vision needs: Yes Meds Allergies Allergy/AdvReac Type Severity Reaction Status Date / Time Sulfa (Sulfonamide Allergy Intermediate hives Verified 09/04/22 09:48 Antibiotics) [SULFA (SULFONAMIDE ANTIBIOTICS)] Active Medications: Current Medications Acetaminophen (Acetaminophen 325 Mg Tablet) 650 mg PO Q6H PRN PRN Reason: Pain, Mild (Pain Scale 1-3) Last Admin: 09/05/22 01:41 Dose: 650 mg Aspirin (Aspirin 81 Mg Tab.Chew) 81 mg PO DAILY [facility] Last Admin: 09/05/22 09:42 Dose: 81 mg Atorvastatin Calcium (Atorvastatin Calcium 10 Mg Tablet) 10 mg PO DAILY [facility] Last Admin: 09/05/22 09:42 Dose: 10 mg Docusate Sodium (Docusate Sodium 100 Mg Capsule) 100 mg PO DAILY PRN PRN Reason: Constipation Enoxaparin Sodium (Enoxaparin Sodium 40 Mg/0.4 Ml Syringe) 40 mg SUBCUT Q24H [facility] Last Admin: 09/05/22 12:43 Dose: 40 mg Ergocalciferol (Ergocalciferol (Vitamin D2) 1,250 Mcg Capsule) 1,250 mcg PO TU@0900 [facility] Ferrous Sulfate (Ferrous Sulfate 324 Mg Tablet.Dr) 324 mg PO DAILY [facility] Last Admin: 09/05/22 09:42 Dose: 324 mg Finasteride (Finasteride 5 Mg Tablet) 5 mg PO DAILY [facility] Last Admin: 09/05/22 09:42 Dose: 5 mg Fluoxetine HCl (Fluoxetine Hcl 10 Mg Capsule) 10 mg PO DAILY [facility] Last Admin: 09/05/22 09:42 Dose: 10 mg Glucose (Glucose Gel 15 Gm Gel..Gram.) 15 gm PO Q15M PRN; Protocol PRN Reason: per Hypoglycemia Standing Ord. Haloperidol (Haloperidol 5 Mg Tablet) 5 mg PO BID [facility] Last Admin: 09/05/22 09:42 Dose: 5 mg Hydroxyzine HCl (Hydroxyzine Hcl 25 Mg Tablet) 25 mg PO BID PRN PRN Reason: Anxiety Vancomycin HCl 1,500 mg/ (Sodium Chloride) 500 mls @ 333.333 mls/hr IV Q24H [facility] Last Infusion: 09/05/22 14:54 Dose: Infused Dextrose (D10) 250 mls @ 750 mls/hr IV Q15M PRN; Protocol PRN Reason: per Hypoglycemia Standing Ord. Cefazolin Sodium 2 gm/ Sodium (Chloride) 50 mls @ 100 mls/hr IV Q12H [facility] Last Admin: 09/05/22 13:28 Dose: Not Given Insulin Human Lispro (Insulin Lispro 100 Unit/Ml 3 Ml Vial) 0 unit SUBCUT QIDACHS [facility]; Protocol Last Admin: 09/05/22 12:42 Dose: 1 unit Midodrine (Midodrine Hcl 2.5 Mg Tablet) 2.5 mg PO TIDWM [facility] Last Admin: 09/05/22 12:44 Dose: 2.5 mg (Dulaglutide [ Trulicity] 1.5 Mg/0. 5 Ml Pen Injector) 1.5 mg SUBCUT MO@0900 [facility] Last Admin: 09/05/22 14:39 Dose: 1.5 mg Ondansetron HCl (Ondansetron Hcl 4 Mg/2 Ml Vial) 4 mg IVPUSH Q8H PRN PRN Reason: Nausea and Vomiting Pharmacy Consult (Consult Rx Vancomycin Dosing) 1 each MISCELLANE DAILY PRN PRN Reason: Consult order Pharmacy Consult (Consult Rx Perform Med Rec) 1 each MISCELLANE ONCE PRN PRN Reason: Consult order Pharmacy Consult (Consult Rx Vancomycin Dosing) 1 each MISCELLANE DAILY PRN PRN Reason: Consult order Sodium Chloride (0.9 % Sodium Chloride Flush 3 Ml Syringe) 3 ml IVFLUSH QSHIFT [facility] Last Admin: 09/05/22 09:43 Dose: 3 ml Trazodone HCl (Trazodone Hcl 100 Mg Tablet) 100 mg PO BEDTIME PRN PRN Reason: insomnia Last Admin: 09/05/22 01:41 Dose: 100 mg Home Medications Medication Instructions Recorded Confirmed Last Taken Type atorvastatin 10 mg tablet 10 mg PO DAILY 03/23/22 09/04/22 09/03/22 History ergocalciferol (vitamin D2) 1,250 1,250 mcg PO TU@0900 03/23/22 09/04/22 08/30/22 History mcg (50,000 unit) capsule (Vitamin D2) dulaglutide 1.5 mg/0.5 mL 1.5 mg subcut MO@0900 08/18/22 09/04/22 08/29/22 History subcutaneous pen injector (Trulicity) ferrous sulfate 325 mg (65 mg 325 mg PO DAILY 08/18/22 09/04/22 09/03/22 History iron) tablet (FeroSul) fluoxetine 10 mg capsule 10 mg PO DAILY 08/18/22 09/04/22 09/03/22 History hydroxyzine pamoate 25 mg capsule 25 mg PO BID PRN Anxiety 08/18/22 09/04/22 08/18/22 09:00 History trazodone 100 mg tablet 100 mg PO BEDTIME PRN insomnia 08/18/22 09/04/22 09/03/22 History finasteride 5 mg tablet 5 mg PO DAILY 09/04/22 09/04/22 09/03/22 History Physical Exam Vital Signs: Vital Signs: Last Vital Signs Temp 98.9 F 09/05/22 13:03 Pulse 92 09/05/22 13:03 Resp 18 09/05/22 13:03 BP 145/66 H 09/05/22 13:03 Pulse Ox 97 09/05/22 13:03 O2 Del Method Room Air 09/05/22 13:03 BMI result Body Mass Index 28.3 Const: General: cooperative HEENT: Head: Yes normal to inspection Face and sinus: Yes normal facial exam Mouth: Normal oral and palatal mucosa present Teeth and gingiva: dentition normal Eyes: General: appearance normal, both eyes and all related structures Pupils: Equal, round and reactive pupils present Resp: Effort & Inspection: normal respiratory effort Cardio: Rate: regular rate Rhythm: regular rhythm GI: Palpation (GI): Soft to palpation and nontender : General: Yes no CVA tenderness Back/Spine/Pelvis: Back: no CVA tenderness Skin: General skin exam: no rashes or lesions noted Neuro: General: moves all extremities Cranial nerves: Yes Equal, round and reactive pupils present Extrem: Other: plantar surface purulent drainage,3 x 3 cm area open Psych: Appearance: grossly normal Results Labs 09/05/22 06:00 09/05/22 06:00 Labs: Short CBC 09/05/22 Range/Units 06:00 WBC 10.0 (4.8-10.8) X10*3/uL Hgb 10.2 L (14.0-18.0) g/dl Hct 30.0 L D (42.0-52.0) % Plt Count 278 D (160-400) X10*3/uL BMP 09/05/22 09/05/22 06:00 06:00 Sodium 136 Potassium 3.8 Chloride 105 Carbon Dioxide 25 BUN 23 H Creatinine 1.35 Cancelled Calcium 7.8 L D Microbiology Microbiology Results: Microbiology 09/04/22 10:41 Blood - Venous Blood Culture - Preliminary Prelim: GPC Gram Stain only 09/04/22 10:05 Blood - Venous Blood Culture - Preliminary Prelim: GPC Gram Stain only Assessment and Plan (1) Foot ulcer: Status: Acute (2) Osteomyelitis: Status: Acute (3) Bacteremia: Status: Acute He has possible staph or strep bacteremia from foot ulcer likely He has osteomyelitis likely Plan Check ESR. IV Kefzol and Vancomycin but watch renal function with CKD 3. Check echol Follow Wound Care. Time Spent With Patient Time: Total time managing care of this patient today ____ minutes.
[2022-09-05 16:00] VITALS: BP 147/68; PULSE 88; RESP 14; TEMP 36.4; O2SAT 97
[2022-09-05 16:29] LABS: Glucose, Whole Blood 143 mg/dL (60-115)
[2022-09-05 17:41] LABS: Appearance Urine Cloudy; Color Urine Yellow; Glucose Urine UA Negative (Negative); Leukocyte Esterase Urine Negative (Negative); Nitrite Urine Negative (Negative); PH 5.5 (5.0-9.0); UMIC TRIGGER UACC YES; Urine Blood Moderate (2+) (Negative); Urine Ketones Negative (Negative); Urine Protein 300 (3+) mg/dL (Neg-Trace)
[2022-09-05 17:46] LABS: Bacteria Urine None Seen (None Seen); Hyaline Casts Urine 0-2 /LPF (0-2); Squamous Epithelial Cell Urine 0-2 /HPF (0-2); WBC Urine 0-5 /HPF (0-5)
[2022-09-05 20:00] VITALS: BP 135/63; PULSE 83; RESP 13; TEMP 36; O2SAT 97
[2022-09-05 20:54] LABS: Glucose, Whole Blood 121 mg/dL (60-115)
[2022-09-06 03:56] VITALS: BP 151/75; PULSE 72; RESP 15; TEMP 36.1; O2SAT 96
--- NOTE | 2022-09-06 07:00 | CA_ITS ---
Transthoracic Echo with Contrast Patient (Last, First, Middle): Juan Jose Sherman, Gender: Male Date of : 1965 Age: 57 Procedure Date: 09/06/2022 Procedure Type: Transthoracic [place] with [place] [facility] [place]: 165.1 cm Weight: 77.11 kg BSA: 1.85 m2 Heart Rate: 69 bpm BP: 127 / 64 mmHg Process Control Manager: LUNA Referring MD: Dylon Elaine MD Jewel Sawyer: Jorge Amin MD Symptoms: bacteremia Study Quality: Adequate w contrast ECG Rhythm: Sinus Conclusions: - 1. Normal LV systolic function 2. No obvious vegetations seen on this study with normal cardiac valvular Doppler 3. No gross pericardial effusion Findings Procedure Information Contrast agent, definity, is being given per protocol without apparent complications. Left Ventricle Normal left ventricular size, thickness, and systolic function. The visually estimated ejection fraction is between 60-65%. There is no evidence of regional wall motion abnormalities. Spectral Doppler is indicative of a normal filling pattern. Right Ventricle Normal right ventricular cavity size. There is borderline right ventricular systolic function. Atria The left atrium is normal in size. Interatrial shunt cannot be excluded. The right atrium is normal in size. Aortic Valve There is mild calcification of the aortic valve. There is moderate thickening of the aortic valve. There is no aortic valve stenosis. There is no aortic valve regurgitation. Mitral Valve There is mild anterior and posterior mitral leaflet thickening. There is trace mitral valve regurgitation. There is no mitral valve stenosis. Pulmonic Valve The pulmonic valve was not well visualized. Tricuspid Valve Likely normal tricuspid valve structure and function. Tricuspid regurgitation envelope is inadequate for calculation of right ventricular systolic pressure. Great Vessels The aorta was not well visualized. The pulmonary artery was not well visualized. Venous The inferior vena cava was not well visualized. Pericardium/Pleural There is no evidence of pericardial effusion. Recommendations, Care & Conclusions Consider a MAYTE if clinically appropriate. Measurements 2D Linear Measurements IVSd: 1.10 0.6-0.9/0.6-1.0 cm LVIDd: 4.89 3.9-5.3/4.2-5.9 cm LVIDd Index: 2.64 2.4-3.2/2.2-3.1 cm/m2 LVIDs: 3.49 2.0-3.6 cm LVPWd: 0.90 0.7-1.1 cm LA Diam: 3.70 2.7-3.8/3.0-4.0 cm LAIDs Index: 2.00 1.5-2.3 cm/m2 LV Mass: 218.41 67-162/88-224 g LV Mass Index: 118.06 43-95/49-115 g/m2 LVOT Diam: 2.10 3.0+(-)1.3 cm 2D Systolic Function EF 4C: 60.00 >55% EF 2C: 67.50 >55% EF BiP: 64.60 >55% Mitral Valve MV Pk E: 0.81 MV PK A: 0.62 MV Decel Time: 151.00 E/A: 1.30 E'Lateral: 9.79 E'Medial: 6.31 E/E' Med: 12.80 E/E' Lat: 8.20 PHT: 44.00 MVA PHT: 5.00 Decel [place]: 5.33 Aortic Valve AoV Pk Leroy: 1.29 AoV Mn Leroy: 0.81 AoV VTI: 0.24 AoV Pk Grad: 7.00 Aov Mn Grad: 3.00 VERONICA Cont.VTI: 3.19 LVOT LVOT Pk Leroy: 0.98 LVOT Mn Leroy: 0.71 LVOT VTI: 0.22 LVOT Pk Grad: 4.00 LVOT Mn Grad: 2.00 LVOT Diam: 2.10 LVOT Area: 3.46 Diastolic Function MV Pk E: 0.81 MV Pk A: 0.62 E/A: 1.30 E'Medial: 6.31 E/E' Med: 12.80 E' Laterial: 9.79 E/E' Lat: 8.20 Right Ventricle TAPSE (mm): 15.70 TVS' Leroy: 10.40 Great Vessels Aorta Sinus of Valsalva: 2.70 2.0-3.5 cm Pulmonary Valve PV Pk Leroy: 0.95 Peak PV Grad: 4.00 Updated in Other Vendor System with Status of Final Jorge Amin MD electronically signed on 09/06/2022 4:03:27 PM with status of Final
[2022-09-06 07:01] LABS: Glucose, Whole Blood 132 mg/dL (60-115)
[2022-09-06 07:05] LABS: Hematocrit 28.8 % (42.0-52.0); Hemoglobin 9.8 g/dl (14.0-18.0); Mean Corpuscular Hemoglobin 29.9 pg (27.0-33.0); Mean Corpuscular Volume 87.8 fL (80.0-98.0); Platelet Count 298 X10*3/uL (160-400); Red Blood Count 3.28 X10*6/uL (4.60-5.80); Red Cell Distribution Width 14.7 % (11.0-16.0); White Blood Count 9.5 X10*3/uL (4.8-10.8)
[2022-09-06 07:24] VITALS: BP 127/64; PULSE 76; RESP 18; TEMP 36.6; O2SAT 96
[2022-09-06 07:24] LABS: Anion Gap 11 (12-20); Blood Urea Nitrogen 21 mg/dL (9-16); Calcium 7.7 mg/dL (8.4-10.2); Carbon Dioxide 25 mmol/L (22-29); Chloride 107 mmol/L (96-108); Estimated Glomerular Filt Rate > 60; Glucose Random 119 mg/dL (60-115); Potassium 3.7 mmol/L (3.3-5.1); Sodium 139 mmol/L (135-145)
[2022-09-06] MEDS: Ergocalciferol (Vitamin D2) 1,250 MCG CAPSULE 1250 MCG PO (08:02)
[2022-09-06] MEDS: Finasteride 5 MG TABLET PO (08:03)
[2022-09-06] MEDS: HaloperidoL 5 MG TABLET PO ×2 (08:03→21:26)
[2022-09-06] MEDS: Atorvastatin Calcium 10 MG TABLET PO (08:03)
[2022-09-06] MEDS: FLUoxetine HCl 10 MG CAPSULE PO (08:03)
[2022-09-06] MEDS: Aspirin 81 MG TAB.CHEW PO (08:03)
[2022-09-06] MEDS: 0.9 % Sodium Chloride Flush 3 ML SYRINGE IVFLUSH ×2 (08:03→14:12)
[2022-09-06] MEDS: Ferrous Sulfate 324 MG TABLET.DR PO (08:03)
[2022-09-06] MEDS: Midodrine HCl 2.5 MG TABLET PO ×2 (08:04→11:15)
[2022-09-06 10:52] LABS: Glucose, Whole Blood 136 mg/dL (60-115)
[2022-09-06] MEDS: Enoxaparin Sodium 40 MG/0.4 ML SYRINGE SUBCUT (11:15)
[2022-09-06 11:16] LABS: Vancomycin Random 8.3 mcg/mL (15-20)
--- NOTE | 2022-09-06 11:30 | HE.PHANOTE ---
vancomycin dosing Patient level 8.3 today. SCr is improving. Will increase dose to vanco 1000 mg Q12H. New expected AUC 508 with a trough of 15.4. Lavelle WalterD
[2022-09-06] MEDS: vancomycin HCL 1,000 MG in 0.9 % Sodium Chloride 250 ML 270 MG IV ×2 (11:35→23:59)
--- NOTE | 2022-09-06 11:49 | HO.PM.IMPN ---
Subjective Subjective Date of Service: 09/06/22 Interval History: f/u bacteremia, osteomylitis of foot, new issues, no fever Physical Exam Vital Signs: Vital Signs: Last Vital Signs Temp 97.9 F 09/06/22 07:24 Pulse 76 09/06/22 07:24 Resp 18 09/06/22 07:24 BP 127/64 09/06/22 07:24 Pulse Ox 96 09/06/22 07:24 O2 Del Method Room Air 09/06/22 07:24 BMI result Body Mass Index 28.3 Const: Other: General resting comfortably in no acute distress. Neck supple no JVD. CVS regular rate rhythm, Respiratory lungs clear to auscultation, no respiratory distress, no wheeze, no rhonchi. Gastrointestinal abdomen soft, nontender, bowel sounds audible,no guarding , no rigidity. Extremities no edema. Right foot dressing in place no drainage noted Neuro nonfocal, speech clear. No tremors Skin no rash Psych appropriate affect Objective Data Active Medications Acetaminophen (Acetaminophen 325 Mg Tablet) 650 mg PO Q6H PRN PRN Reason: Pain, Mild (Pain Scale 1-3) Last Admin: 09/05/22 20:55 Dose: 650 mg Documented By: REGLA Aspirin (Aspirin 81 Mg Tab.Chew) 81 mg PO DAILY [facility] Last Admin: 09/06/22 08:03 Dose: 81 mg Documented By: PUSHPA Atorvastatin Calcium (Atorvastatin Calcium 10 Mg Tablet) 10 mg PO DAILY [facility] Last Admin: 09/06/22 08:03 Dose: 10 mg Documented By: PUSHPA Docusate Sodium (Docusate Sodium 100 Mg Capsule) 100 mg PO DAILY PRN PRN Reason: Constipation Enoxaparin Sodium (Enoxaparin Sodium 40 Mg/0.4 Ml Syringe) 40 mg SUBCUT Q24H [facility] Last Admin: 09/06/22 11:15 Dose: 40 mg Documented By: PUSHPA Ergocalciferol (Ergocalciferol (Vitamin D2) 1,250 Mcg Capsule) 1,250 mcg PO TU@0900 [facility] Last Admin: 09/06/22 08:02 Dose: 1,250 mcg Documented By: PUSHPA Ferrous Sulfate (Ferrous Sulfate 324 Mg Tablet.) 324 mg PO DAILY [facility] Last Admin: 09/06/22 08:03 Dose: 324 mg Documented By: PUSHPA Finasteride (Finasteride 5 Mg Tablet) 5 mg PO DAILY [facility] Last Admin: 09/06/22 08:03 Dose: 5 mg Documented By: PUSHPA Fluoxetine HCl (Fluoxetine Hcl 10 Mg Capsule) 10 mg PO DAILY [facility] Last Admin: 09/06/22 08:03 Dose: 10 mg Documented By: PUSHPA Glucose (Glucose Gel 15 Gm Gel..Gram.) 15 gm PO Q15M PRN; Protocol PRN Reason: per Hypoglycemia Standing Ord. Haloperidol (Haloperidol 5 Mg Tablet) 5 mg PO BID [facility] Last Admin: 09/06/22 08:03 Dose: 5 mg Documented By: PUSHPA Hydroxyzine HCl (Hydroxyzine Hcl 25 Mg Tablet) 25 mg PO BID PRN PRN Reason: Anxiety Dextrose (D10) 250 mls @ 750 mls/hr IV Q15M PRN; Protocol PRN Reason: per Hypoglycemia Standing Ord. Cefazolin Sodium 2 gm/ Sodium (Chloride) 50 mls @ 100 mls/hr IV Q12H [facility] Last Infusion: 09/06/22 01:57 Dose: 0 mls/hr Documented By: MARY Vancomycin HCl 1,000 mg/ (Sodium Chloride) 270 mls @ 270 mls/hr IV Q12H [facility] Last Admin: 09/06/22 11:35 Dose: 270 mls/hr Documented By: PUSHPA Insulin Human Lispro (Insulin Lispro 100 Unit/Ml 3 Ml Vial) 0 unit SUBCUT QIDACHS [facility]; Protocol Last Admin: 09/06/22 10:52 Dose: Not Given Documented By: PUSHPA Non-Admin Reason: No Insulin Coverage Midodrine (Midodrine Hcl 2.5 Mg Tablet) 2.5 mg PO TIDWM [facility] Last Admin: 09/06/22 11:15 Dose: 2.5 mg Documented By: PUSHPA (Dulaglutide [ Trulicity] 1.5 Mg/0. 5 Ml Pen Injector) 1.5 mg SUBCUT MO@0900 [facility] Last Admin: 09/05/22 14:39 Dose: 1.5 mg Documented By: FLORY Ondansetron HCl (Ondansetron Hcl 4 Mg/2 Ml Vial) 4 mg IVPUSH Q8H PRN PRN Reason: Nausea and Vomiting Pharmacy Consult (Consult Rx Vancomycin Dosing) 1 each MISCELLANE DAILY PRN PRN Reason: Consult order Pharmacy Consult (Consult Rx Perform Med Rec) 1 each MISCELLANE ONCE PRN PRN Reason: Consult order Pharmacy Consult (Consult Rx Vancomycin Dosing) 1 each MISCELLANE DAILY PRN PRN Reason: Consult order Sodium Chloride (0.9 % Sodium Chloride Flush 3 Ml Syringe) 3 ml IVFLUSH QSHIFT [facility] Last Admin: 09/06/22 08:03 Dose: 3 ml Documented By: PUSHPA Trazodone HCl (Trazodone Hcl 100 Mg Tablet) 100 mg PO BEDTIME PRN PRN Reason: insomnia Last Admin: 09/05/22 20:55 Dose: 100 mg Documented By: REGLA Labs 09/06/22 06:53 09/06/22 06:53 Labs: Laboratory Results - last 24 hr 09/05/22 09/05/22 09/05/22 11:43 16:16 17:30 MCV MCH MCHC RDW Plt Count MPV Absolute Nucleated RBC Nucleated RBC % (auto) Anion Gap Estim Creat Clear Calc Estimated GFR POC Glucose 154 H 143 H Random Glucose Calcium Urine Color Yellow Urine Appearance Cloudy Urine pH 5.5 Ur Specific [place] 1.020 Urine Protein 300 (3+) H Urine Glucose (UA) Negative Urine Ketones Negative Urine Blood Moderate (2+) H Urine Nitrite Negative Ur Leukocyte Esterase Negative Urine RBC 6-10 H Urine WBC 0-5 Ur Squamous Epith Cells 0-2 Urine Bacteria None Seen Hyaline Casts 0-2 Random Vancomycin 09/05/22 09/06/22 09/06/22 20:49 06:53 06:53 MCV 87.8 MCH 29.9 MCHC 34.0 RDW 14.7 Plt Count 298 MPV 9.0 L Absolute Nucleated RBC 0.000 Nucleated RBC % (auto) 0.0 Anion Gap 11 L Estim Creat Clear Calc 68.0 Estimated GFR > 60 POC Glucose 121 H Random Glucose 119 H Calcium 7.7 L Urine Color Urine Appearance Urine pH Ur Specific [place] Urine Protein Urine Glucose (UA) Urine Ketones Urine Blood Urine Nitrite Ur Leukocyte Esterase Urine RBC Urine WBC Ur Squamous Epith Cells Urine Bacteria Hyaline Casts Random Vancomycin 09/06/22 09/06/22 09/06/22 06:57 10:07 10:48 MCV MCH MCHC RDW Plt Count MPV Absolute Nucleated RBC Nucleated RBC % (auto) Anion Gap Estim Creat Clear Calc Estimated GFR POC Glucose 132 H 136 H Random Glucose Calcium Urine Color Urine Appearance Urine pH Ur Specific [place] Urine Protein Urine Glucose (UA) Urine Ketones Urine Blood Urine Nitrite Ur Leukocyte Esterase Urine RBC Urine WBC Ur Squamous Epith Cells Urine Bacteria Hyaline Casts Random Vancomycin 8.3 L Microbiology Microbiology Results: Microbiology 09/05/22 00:44 Blood Culture - Preliminary Blood - Venous Prelim: GPC Gram Stain only 09/05/22 00:44 Blood Culture - Preliminary Blood - Venous No growth after 24 hours. 09/04/22 10:41 Blood Culture - Preliminary Blood - Venous Prelim: GPC Gram Stain only 09/04/22 10:05 Blood Culture - Preliminary Blood - Venous Prelim: GPC Gram Stain only Assessment and Plan (1) Osteomyelitis: Status: Acute Plan 57-year-old male with a PMH significant for CKD stage 3, NEEMA, HLD,?BPH, bipolar disorder, diabetes, orthostatic hypotension, and hx of diabetic foot ulcer w/ osteomyelitis who presents to the ED for evaluation for generalized weakness, lightheadedness, dizziness, and fall this morning at 03:00 when he got up to use the bathroom. Xrays of right foot consistent with osteomyelitis. Pt will be admitted to the hospital for treatment and further evaluation of osteomyelitis of the right foot. Sepsis due to diabetic foot ulcer /Osteomyelitis of 2nd metatarsal of right foot No fevers, WBC normalized Elevated ESR, CRP, positive x-ray evidence Status post bedside debridement of ulcer by Dr. Otero foot wrapped with Kerlix roll surgery recommend prolonged course of IV antibiotics and good blood sugar control 2/2 blood culture positive for Gram-positive cocci--sensitivity pending Dr. Vargas recommend dc IV Zosyn 09/05, IV Kefzol started 09/05 and continue IV vancomycin started on 09/04, follow final blood culture report and adjust antibiotics VANESSA and CKD 3 Creatinine returned to baseline, monitor while on vanco Orthostatic hypotension Continue midodrine BPH continue finasteride Non insulin-dependent diabetes Stable blood sugar, continue SSI, and diabetic diet, Trulicity is non formulary HLD Continue home meds Mood disorder Continue Haldol , trazodone and hydroxyzine Full Code Patient need continued inpatient hospitalization for IV antibiotic treatment for bacteremia and right foot ulcer. Time Spent With Patient Time: Total time managing care of this patient today ____ minutes. Quality Stroke Does the patient have a stroke diagnosis?: No VTE Prior VTE?: No VTE Risk Level:: Medical - moderate - high VTE Device Contraindication: Treatment Not Indicated VTE Drug Contraindication: N/A - Med Ordered
--- NOTE | 2022-09-06 13:06 | MHC.CM.PN ---
CM MET WITH PT AND [employer]AK[employer]. PER PT, HE WOULD BE UNABLE TO MANAGE HIS OWN IV AND HAS NO FAMILY OR FRIENDS TO ASSIST. PT WILL NEED TO GO TO REHAB FOR IV RX. REFERRALS SENT TO SNF'S CONTRACTED WITH PT'S INSURANCE. CM WILL CONTINUE TO FOLLOW.
[2022-09-06] MEDS: ceFAZolin Sodium/Dextrose,Iso 2 GM/50 ML PIGGYBACK IV (14:07)
[2022-09-06 15:34] VITALS: BP 145/70; PULSE 69; RESP 14; TEMP 36.9; O2SAT 97
[2022-09-06 15:50] LABS: Glucose, Whole Blood 138 mg/dL (60-115)
[2022-09-06] MEDS: Acetaminophen 325 MG TABLET 650 MG PO ×2 (16:29→23:59)
[2022-09-06 19:38] VITALS: BP 146/71; PULSE 71; RESP 13; TEMP 36.1; O2SAT 98
[2022-09-06 19:48] LABS: Glucose, Whole Blood 153 mg/dL (60-115)
[2022-09-06] MEDS: Insulin Lispro 100 UNIT/ML 3 ML VIAL SUBCUT (21:26)
[2022-09-07 00:02] VITALS: BP 162/77; PULSE 67; RESP 15; TEMP 36.2; O2SAT 99
[2022-09-07] MEDS: 0.9 % Sodium Chloride Flush 3 ML SYRINGE IVFLUSH ×3 (00:07→16:05)
[2022-09-07] MEDS: ceFAZolin Sodium/Dextrose,Iso 2 GM/50 ML PIGGYBACK IV ×3 (02:26→18:39)
[2022-09-07 03:58] VITALS: BP 149/69; PULSE 68; RESP 15; TEMP 36.1; O2SAT 98
[2022-09-07 07:17] LABS: Glucose, Whole Blood 103 mg/dL (60-115)
[2022-09-07 07:32] LABS: Creatinine Clr Calc Pharmacy 84.1; Estimated Glomerular Filt Rate > 60
[2022-09-07 07:52] VITALS: BP 140/73; PULSE 81; RESP 18; TEMP 36.8; O2SAT 97
[2022-09-07] MEDS: FLUoxetine HCl 10 MG CAPSULE PO (09:25)
[2022-09-07] MEDS: Finasteride 5 MG TABLET PO (09:25)
[2022-09-07] MEDS: Atorvastatin Calcium 10 MG TABLET PO (09:25)
[2022-09-07] MEDS: Ferrous Sulfate 324 MG TABLET.DR PO (09:25)
[2022-09-07] MEDS: Aspirin 81 MG TAB.CHEW PO (09:25)
[2022-09-07] MEDS: HaloperidoL 5 MG TABLET PO ×2 (09:27→21:57)
[2022-09-07] MEDS: Acetaminophen 325 MG TABLET 650 MG PO ×2 (09:32→18:39)
--- NOTE | 2022-09-07 10:19 | HO.PM.IMPN ---
Subjective Subjective Date of Service: 09/07/22 Interval History: f/u bacteremia, osteomylitis of foot, new issues, chills overnight but no fever Physical Exam Vital Signs: Vital Signs: Last Vital Signs Temp 98.3 F 09/07/22 07:52 Pulse 81 09/07/22 07:52 Resp 18 09/07/22 07:52 BP 140/73 H 09/07/22 07:52 Pulse Ox 97 09/07/22 07:52 O2 Del Method Room Air 09/07/22 07:52 BMI result Body Mass Index 28.3 Const: Other: General resting comfortably in no acute distress. Neck supple no JVD. CVS regular rate rhythm, Respiratory lungs clear to auscultation, no respiratory distress, no wheeze, no rhonchi. Gastrointestinal abdomen soft, nontender, bowel sounds audible,no guarding , no rigidity. Extremities no edema. Right foot dressing in place no drainage noted Neuro nonfocal, speech clear. No tremors Skin no rash Psych appropriate affect Objective Data Active Medications Acetaminophen (Acetaminophen 325 Mg Tablet) 650 mg PO Q6H PRN PRN Reason: Pain, Mild (Pain Scale 1-3) Last Admin: 09/07/22 09:32 Dose: 650 mg Documented By: PATRICIO Aspirin (Aspirin 81 Mg Tab.Chew) 81 mg PO DAILY [facility] Last Admin: 09/07/22 09:25 Dose: 81 mg Documented By: PATRICIO Atorvastatin Calcium (Atorvastatin Calcium 10 Mg Tablet) 10 mg PO DAILY [facility] Last Admin: 09/07/22 09:25 Dose: 10 mg Documented By: PATRICIO Docusate Sodium (Docusate Sodium 100 Mg Capsule) 100 mg PO DAILY PRN PRN Reason: Constipation Enoxaparin Sodium (Enoxaparin Sodium 40 Mg/0.4 Ml Syringe) 40 mg SUBCUT Q24H [facility] Last Admin: 09/06/22 11:15 Dose: 40 mg Documented By: PUSHPA Ergocalciferol (Ergocalciferol (Vitamin D2) 1,250 Mcg Capsule) 1,250 mcg PO TU@0900 [facility] Last Admin: 09/06/22 08:02 Dose: 1,250 mcg Documented By: PUSHPA Ferrous Sulfate (Ferrous Sulfate 324 Mg Tablet.) 324 mg PO DAILY [facility] Last Admin: 09/07/22 09:25 Dose: 324 mg Documented By: PATRICIO Finasteride (Finasteride 5 Mg Tablet) 5 mg PO DAILY [facility] Last Admin: 09/07/22 09:25 Dose: 5 mg Documented By: PATRICIO Fluoxetine HCl (Fluoxetine Hcl 10 Mg Capsule) 10 mg PO DAILY [facility] Last Admin: 09/07/22 09:25 Dose: 10 mg Documented By: PATRICIO Glucose (Glucose Gel 15 Gm Gel..Gram.) 15 gm PO Q15M PRN; Protocol PRN Reason: per Hypoglycemia Standing Ord. Haloperidol (Haloperidol 5 Mg Tablet) 5 mg PO BID [facility] Last Admin: 09/07/22 09:27 Dose: 5 mg Documented By: PATRICIO Hydroxyzine HCl (Hydroxyzine Hcl 25 Mg Tablet) 25 mg PO BID PRN PRN Reason: Anxiety Dextrose (D10) 250 mls @ 750 mls/hr IV Q15M PRN; Protocol PRN Reason: per Hypoglycemia Standing Ord. Vancomycin HCl 1,000 mg/ (Sodium Chloride) 270 mls @ 270 mls/hr IV Q12H [facility] Last Infusion: 09/07/22 01:43 Dose: 270 mls/hr Documented By: TING Cefazolin Sodium/Dextrose (Ancef) 2 gm in 50 mls @ 100 mls/hr IV Q8H [facility] Insulin Human Lispro (Insulin Lispro 100 Unit/Ml 3 Ml Vial) 0 unit SUBCUT QIDACHS [facility]; Protocol Last Admin: 09/07/22 08:36 Dose: Not Given Documented By: PATRICIO Non-Admin Reason: No Insulin Coverage Midodrine (Midodrine Hcl 2.5 Mg Tablet) 2.5 mg PO TIDWM [facility] Last Admin: 09/07/22 09:26 Dose: Not Given Documented By: PATRICIO Non-Admin Reason: SBP 140's MS aware (Dulaglutide [ Trulicity] 1.5 Mg/0. 5 Ml Pen Injector) 1.5 mg SUBCUT MO@0900 [facility] Last Admin: 09/05/22 14:39 Dose: 1.5 mg Documented By: FLORY Ondansetron HCl (Ondansetron Hcl 4 Mg/2 Ml Vial) 4 mg IVPUSH Q8H PRN PRN Reason: Nausea and Vomiting Pharmacy Consult (Consult Rx Vancomycin Dosing) 1 each MISCELLANE DAILY PRN PRN Reason: Consult order Pharmacy Consult (Consult Rx Perform Med Rec) 1 each MISCELLANE ONCE PRN PRN Reason: Consult order Pharmacy Consult (Consult Rx Vancomycin Dosing) 1 each MISCELLANE DAILY PRN PRN Reason: Consult order Sodium Chloride (0.9 % Sodium Chloride Flush 3 Ml Syringe) 3 ml IVFLUSH QSHIFT [facility] Last Admin: 09/07/22 09:27 Dose: 3 ml Documented By: PATRICIO Trazodone HCl (Trazodone Hcl 100 Mg Tablet) 100 mg PO BEDTIME PRN PRN Reason: insomnia Last Admin: 09/05/22 20:55 Dose: 100 mg Documented By: REGLA Labs 09/06/22 06:53 09/07/22 06:36 Labs: Laboratory Results - last 24 hr 09/06/22 09/06/22 09/06/22 10:07 10:48 15:43 Estim Creat Clear Calc Estimated GFR POC Glucose 136 H 138 H Random Vancomycin 8.3 L 09/06/22 09/07/22 09/07/22 19:44 06:36 07:13 Estim Creat Clear Calc 84.1 Estimated GFR > 60 POC Glucose 153 H 103 Random Vancomycin Microbiology Microbiology Results: Microbiology 09/05/22 00:44 Blood Culture - Preliminary Blood - Venous No growth after 48 hours. 09/05/22 00:44 Blood Culture - Preliminary Blood - Venous Staphylococcus aureus 09/04/22 10:41 Blood Culture - Preliminary Blood - Venous Staphylococcus aureus 09/04/22 10:05 Blood Culture - Preliminary Blood - Venous Staphylococcus aureus Assessment and Plan (1) Osteomyelitis: Status: Acute Plan 57-year-old male with a PMH significant for CKD stage 3, NEEMA, HLD,?BPH, bipolar disorder, diabetes, orthostatic hypotension, and hx of diabetic foot ulcer w/ osteomyelitis who presents to the ED for evaluation for generalized weakness, lightheadedness, dizziness, and fall this morning at 03:00 when he got up to use the bathroom. Xrays of right foot consistent with osteomyelitis. Pt will be admitted to the hospital for treatment and further evaluation of osteomyelitis of the right foot. Sepsis due to diabetic foot ulcer /Osteomyelitis of 2nd metatarsal of right foot No fevers, WBC normalized Elevated ESR, CRP, positive x-ray evidence Status post bedside debridement of ulcer by Dr. Otero foot wrapped with Kerlix roll surgery recommend prolonged course of IV antibiotics and good blood sugar control 2/2 blood culture positive for Gram-positive cocci--sensitivity pending Dr. Vargas recommend dc IV Zosyn 09/05, IV Kefzol started 09/05 and continue IV vancomycin started on 09/04, follow final blood culture report and adjust antibiotics VANESSA and CKD 3--Creatine now within baseline 0.09 Creatinine returned to baseline, monitor while on vanco Chronic Orthostatic hypotension, BP within normal Continue midodrine as needed BPH continue finasteride Non insulin-dependent diabetes Stable blood sugar, continue SSI, and diabetic diet, Trulicity is non formulary HLD Continue home meds Mood disorder Continue Haldol , trazodone and hydroxyzine Full Code Patient need continued inpatient hospitalization for IV antibiotic treatment for bacteremia and right foot ulcer. Discussed with HCP Maya who wants patient to go STR at discharge Time Spent With Patient Time: Total time managing care of this patient today ____ minutes. Quality Stroke Does the patient have a stroke diagnosis?: No VTE Prior VTE?: No VTE Risk Level:: Medical - moderate - high VTE Device Contraindication: Treatment Not Indicated VTE Drug Contraindication: N/A - Med Ordered
[2022-09-07 10:38] LABS: Vancomycin Random 13.2 mcg/mL (15-20)
[2022-09-07 10:57] LABS: Glucose, Whole Blood 123 mg/dL (60-115)
--- NOTE | 2022-09-07 11:00 | HE.PHANOTE ---
Vancomycin Dosing Level 13.2 today, predicted AUC low at 416. Will increase dose to vancomycin 1250 mg due to possible osetomylitis. New Expected AUC 519 with a trough of 14.7. Next level 09/08 @ 1000. Lavelle WalterD
[2022-09-07 12:06] VITALS: BP 130/70; PULSE 64; RESP 18; TEMP 36.6; O2SAT 96
[2022-09-07] MEDS: vancomycin HCL 1,250 MG in 0.9 % Sodium Chloride 250 ML 166.67 MG IV (13:44)
[2022-09-07] MEDS: Enoxaparin Sodium 40 MG/0.4 ML SYRINGE SUBCUT (13:45)
[2022-09-07 15:46] VITALS: BP 141/72; PULSE 64; RESP 13; TEMP 36.2; O2SAT 98
[2022-09-07 16:01] LABS: Glucose, Whole Blood 129 mg/dL (60-115)
[2022-09-07 19:50] VITALS: BP 148/71; PULSE 64; RESP 14; TEMP 36; O2SAT 98
[2022-09-07 19:55] LABS: Glucose, Whole Blood 151 mg/dL (60-115)
[2022-09-07] MEDS: traZODone HCL 100 MG TABLET PO (21:57)
[2022-09-07] MEDS: Insulin Lispro 100 UNIT/ML 3 ML VIAL SUBCUT (21:57)
[2022-09-08 03:18] VITALS: BP 125/66; PULSE 70; RESP 17; TEMP 36.1; O2SAT 95
[2022-09-08] MEDS: Acetaminophen 325 MG TABLET 650 MG PO ×2 (03:23→10:27)
[2022-09-08] MEDS: 0.9 % Sodium Chloride Flush 3 ML SYRINGE IVFLUSH ×3 (03:24→17:08)
[2022-09-08] MEDS: ceFAZolin Sodium/Dextrose,Iso 2 GM/50 ML PIGGYBACK IV ×3 (03:24→18:15)
[2022-09-08 07:03] LABS: Glucose, Whole Blood 98 mg/dL (60-115)
[2022-09-08 07:03] LABS: Creatinine Clr Calc Pharmacy 89.9; Estimated Glomerular Filt Rate > 60
--- NOTE | 2022-09-08 07:26 | PC.NURSE ---
Pt did not urinate all night so @6:13 am This RN bladder scanned him for 969ml. Notified Dr. Tompkins who put in an order for straight cath. 500cc came out when straight cath but repeat bladder scan show only 175cc left. Reported off to the daytime RN.
[2022-09-08 07:36] VITALS: BP 135/69; PULSE 67; RESP 18; TEMP 37.2; O2SAT 96
[2022-09-08] MEDS: Atorvastatin Calcium 10 MG TABLET PO (07:55)
[2022-09-08] MEDS: Aspirin 81 MG TAB.CHEW PO (07:55)
[2022-09-08] MEDS: Ferrous Sulfate 324 MG TABLET.DR PO (07:56)
[2022-09-08] MEDS: FLUoxetine HCl 10 MG CAPSULE PO (07:56)
[2022-09-08] MEDS: HaloperidoL 5 MG TABLET PO ×2 (07:56→20:32)
[2022-09-08] MEDS: Finasteride 5 MG TABLET PO (07:56)
[2022-09-08 07:59] LABS: Appearance Urine Clear; Color Urine Yellow; Glucose Urine UA Negative (Negative); Leukocyte Esterase Urine Negative (Negative); Nitrite Urine Negative (Negative); PH 5.5 (5.0-9.0); UMIC TRIGGER UACC YES; Urine Blood Negative (Negative); Urine Ketones Negative (Negative); Urine Protein 300 (3+) mg/dL (Neg-Trace)
[2022-09-08 08:08] LABS: Bacteria Urine None Seen (None Seen); Hyaline Casts Urine 0-2 /LPF (0-2); RBC Urine 0-2 /HPF (0-2); Squamous Epithelial Cell Urine 0-2 /HPF (0-2); WBC Urine 0-5 /HPF (0-5)
[2022-09-08 10:22] LABS: Vancomycin Trough 11.3 mcg/mL (10.0-20.0)
[2022-09-08] MEDS: Docusate Sodium 100 MG CAPSULE PO (10:29)
[2022-09-08 11:40] LABS: Glucose, Whole Blood 136 mg/dL (60-115)
[2022-09-08] MEDS: Enoxaparin Sodium 40 MG/0.4 ML SYRINGE SUBCUT (12:51)
--- NOTE | 2022-09-08 14:05 | HO.PM.IMPN ---
Subjective Subjective Date of Service: 09/08/22 Interval History: f/u bacteremia, osteomylitis of foot, new issues. Discussed with HCP at bedside Physical Exam Vital Signs: Vital Signs: Last Vital Signs Temp 99.0 F 09/08/22 07:36 Pulse 67 09/08/22 07:36 Resp 18 09/08/22 07:36 BP 135/69 09/08/22 07:36 Pulse Ox 96 09/08/22 07:36 O2 Del Method Room Air 09/08/22 07:36 BMI result Body Mass Index 28.3 Const: Other: General resting comfortably in no acute distress. Neck supple no JVD. CVS regular rate rhythm, Respiratory lungs clear to auscultation, no respiratory distress, no wheeze, no rhonchi. Gastrointestinal abdomen soft, nontender, bowel sounds audible,no guarding , no rigidity. Extremities no edema. Right foot dressing in place no drainage noted Neuro nonfocal, speech clear. No tremors Skin no rash Psych appropriate affect Objective Data Active Medications Acetaminophen (Acetaminophen 325 Mg Tablet) 650 mg PO Q6H PRN PRN Reason: Pain, Mild (Pain Scale 1-3) Last Admin: 09/08/22 10:27 Dose: 650 mg Documented By: PATRICIO Aspirin (Aspirin 81 Mg Tab.Chew) 81 mg PO DAILY [facility]PL[facility] Last Admin: 09/08/22 07:55 Dose: 81 mg Documented By: PATRICIO Atorvastatin Calcium (Atorvastatin Calcium 10 Mg Tablet) 10 mg PO DAILY [facility] Last Admin: 09/08/22 07:55 Dose: 10 mg Documented By: PATRICIO Docusate Sodium (Docusate Sodium 100 Mg Capsule) 100 mg PO DAILY PRN PRN Reason: Constipation Last Admin: 09/08/22 10:29 Dose: 100 mg Documented By: PATRICIO Enoxaparin Sodium (Enoxaparin Sodium 40 Mg/0.4 Ml Syringe) 40 mg SUBCUT Q24H [facility]PL[facility]ED [facility] Last Admin: 09/08/22 12:51 Dose: 40 mg Documented By: PATRICIO Ergocalciferol (Ergocalciferol (Vitamin D2) 1,250 Mcg Capsule) 1,250 mcg PO TU@0900 [facility] Last Admin: 09/06/22 08:02 Dose: 1,250 mcg Documented By: PUSHPA Ferrous Sulfate (Ferrous Sulfate 324 Mg Tablet.Dr) 324 mg PO DAILY [facility] Last Admin: 09/08/22 07:56 Dose: 324 mg Documented By: PATRICIO Finasteride (Finasteride 5 Mg Tablet) 5 mg PO DAILY [facility] Last Admin: 09/08/22 07:56 Dose: 5 mg Documented By: PATRICIO Fluoxetine HCl (Fluoxetine Hcl 10 Mg Capsule) 10 mg PO DAILY [facility] Last Admin: 09/08/22 07:56 Dose: 10 mg Documented By: PATRICIO Glucose (Glucose Gel 15 Gm Gel..Gram.) 15 gm PO Q15M PRN; Protocol PRN Reason: per Hypoglycemia Standing Ord. Haloperidol (Haloperidol 5 Mg Tablet) 5 mg PO BID [facility] Last Admin: 09/08/22 07:56 Dose: 5 mg Documented By: PATRICIO Hydroxyzine HCl (Hydroxyzine Hcl 25 Mg Tablet) 25 mg PO BID PRN PRN Reason: Anxiety Dextrose (D10) 250 mls @ 750 mls/hr IV Q15M PRN; Protocol PRN Reason: per Hypoglycemia Standing Ord. Cefazolin Sodium/Dextrose (Ancef) 2 gm in 50 mls @ 100 mls/hr IV Q8H [facility]PLACED [facility] Last Infusion: 09/08/22 11:27 Dose: 0 mls/hr Documented By: PATRICIO Insulin Human Lispro (Insulin Lispro 100 Unit/Ml 3 Ml Vial) 0 unit SUBCUT QIDACHS REPLACED BY [facility]; Protocol Last Admin: 09/08/22 11:44 Dose: Not Given Documented By: PATRICIO Non-Admin Reason: No Insulin Coverage (Dulaglutide [ Trulicity] 1.5 Mg/0. 5 Ml Pen Injector) 1.5 mg SUBCUT MO@0900 REPLACED [facility] Last Admin: 09/05/22 14:39 Dose: 1.5 mg Documented By: FLORY Ondansetron HCl (Ondansetron Hcl 4 Mg/2 Ml Vial) 4 mg IVPUSH Q8H PRN PRN Reason: Nausea and Vomiting Pharmacy Consult (Consult Rx Perform Med Rec) 1 each MISCELLANE ONCE PRN PRN Reason: Consult order Sodium Chloride (0.9 % Sodium Chloride Flush 3 Ml Syringe) 3 ml IVFLUSH QSHIFT REPLACED BY [facility] Last Admin: 09/08/22 08:01 Dose: 3 ml Documented By: PATRICIO Trazodone HCl (Trazodone Hcl 100 Mg Tablet) 100 mg PO BEDTIME PRN PRN Reason: insomnia Last Admin: 09/07/22 21:57 Dose: 100 mg Documented By: BELLE Labs 09/06/22 06:53 09/08/22 06:00 Labs: Laboratory Results - last 24 hr 09/07/22 09/07/22 09/08/22 15:57 19:51 06:00 Estim Creat Clear Calc 89.9 Estimated GFR > 60 POC Glucose 129 H 151 H Urine Color Urine Appearance Urine pH Ur Specific [place] Urine Protein Urine Glucose (UA) Urine Ketones Urine Blood Urine Nitrite Ur Leukocyte Esterase Urine RBC Urine WBC Ur Squamous Epith Cells Urine Bacteria Hyaline Casts Vancomycin Trough 09/08/22 09/08/22 09/08/22 06:59 07:00 09:51 Estim Creat Clear Calc Estimated GFR POC Glucose 98 Urine Color Yellow Urine Appearance Clear Urine pH 5.5 Ur Specific [place] 1.020 Urine Protein 300 (3+) H Urine Glucose (UA) Negative Urine Ketones Negative Urine Blood Negative Urine Nitrite Negative Ur Leukocyte Esterase Negative Urine RBC 0-2 Urine WBC 0-5 Ur Squamous Epith Cells 0-2 Urine Bacteria None Seen Hyaline Casts 0-2 Vancomycin Trough 11.3 09/08/22 11:36 Estim Creat Clear Calc Estimated GFR POC Glucose 136 H Urine Color Urine Appearance Urine pH Ur Specific [place] Urine Protein Urine Glucose (UA) Urine Ketones Urine Blood Urine Nitrite Ur Leukocyte Esterase Urine RBC Urine WBC Ur Squamous Epith Cells Urine Bacteria Hyaline Casts Vancomycin Trough Microbiology Microbiology Results: Microbiology 09/05/22 00:44 Blood Culture - Final Blood - Venous Staphylococcus aureus 09/04/22 10:41 Blood Culture - Final Blood - Venous Staphylococcus aureus 09/04/22 10:05 Blood Culture - Final Blood - Venous Staphylococcus aureus Assessment and Plan (1) Osteomyelitis: Status: Acute Plan 57-year-old male with a PMH significant for CKD stage 3, NEEMA, HLD,?BPH, bipolar disorder, diabetes, orthostatic hypotension, and hx of diabetic foot ulcer w/ osteomyelitis who presents to the ED for evaluation for generalized weakness, lightheadedness, dizziness, and fall this morning at 03:00 when he got up to use the bathroom. Xrays of right foot consistent with osteomyelitis. Pt will be admitted to the hospital for treatment and further evaluation of osteomyelitis of the right foot. Sepsis due to diabetic foot ulcer /Osteomyelitis of 2nd metatarsal of right foot No fevers, WBC normalized Elevated ESR, CRP, positive x-ray evidence Status post bedside debridement of ulcer by Dr. Otero foot wrapped with Kerlix roll surgery recommend prolonged course of IV antibiotics and good blood sugar control 2/2 blood culture positive for Gram-positive cocci--sensitivity pending Dr. Vargas recommend dc IV Zosyn 09/05, IV Kefzol started 09/05 and continue IV vancomycin started on 09/04, follow final blood culture report and adjust antibiotics. Vanco DC 09/07 repeat blood culture 09/05 1/2 +, repeat BCx today VANESSA and CKD 3--Creatine now within baseline 0.09 Creatinine returned to baseline, monitor while on vanco Chronic Orthostatic hypotension, BP within normal Continue midodrine as needed BPH continue finasteride Non insulin-dependent diabetes Stable blood sugar, continue SSI, and diabetic diet, Trulicity is non formulary HLD Continue home meds Mood disorder Continue Haldol , trazodone and hydroxyzine Full Code Patient need continued inpatient hospitalization for IV antibiotic treatment for bacteremia and right foot ulcer. Discussed with HCP Maya who wants patient to go STR at discharge Time Spent With Patient Time: Total time managing care of this patient today ____ minutes. Quality Stroke Does the patient have a stroke diagnosis?: No VTE Prior VTE?: No VTE Risk Level:: Medical - moderate - high VTE Device Contraindication: Treatment Not Indicated VTE Drug Contraindication: N/A - Med Ordered
[2022-09-08 15:34] VITALS: BP 154/70; PULSE 61; RESP 14; TEMP 36; O2SAT 97
[2022-09-08 16:30] LABS: Glucose, Whole Blood 102 mg/dL (60-115)
[2022-09-08 19:37] VITALS: BP 151/68; PULSE 64; RESP 14; TEMP 36.6; O2SAT 98
[2022-09-08] MEDS: traZODone HCL 100 MG TABLET PO (20:35)
[2022-09-08 20:46] LABS: Glucose, Whole Blood 144 mg/dL (60-115)
[2022-09-09] MEDS: 0.9 % Sodium Chloride Flush 3 ML SYRINGE IVFLUSH ×4 (02:38→20:04)
[2022-09-09] MEDS: ceFAZolin Sodium/Dextrose,Iso 2 GM/50 ML PIGGYBACK IV ×3 (02:38→18:32)
[2022-09-09 03:35] VITALS: BP 147/63; PULSE 72; RESP 20; TEMP 36.3; O2SAT 95
[2022-09-09 07:19] LABS: Estimated Glomerular Filt Rate > 60
[2022-09-09 07:47] VITALS: BP 129/65; PULSE 58; RESP 12; TEMP 36.2; O2SAT 94
[2022-09-09 07:48] LABS: Glucose, Whole Blood 117 mg/dL (60-115)
--- NOTE | 2022-09-09 09:46 | MHC.CM.PN ---
EMR reviewed, D/C plan pending further evaluation and monitoring of blood cultures. Anticipating likely D/C early next week. MAO Bauman following pt, SNF referral updated. CM will continue to monitor.
--- NOTE | 2022-09-09 10:12 | P.PNIM_ITS ---
Subjective Subjective Date of Service: 09/09/22 Interval History: f/u bacteremia, osteomylitis of foot, new issues. Discussed with HCP at bedside Physical Exam Vital Signs: Vital Signs: Last Vital Signs Temp 97.1 F 09/09/22 07:47 Pulse 58 09/09/22 07:47 Resp 12 09/09/22 07:47 BP 129/65 09/09/22 07:47 Pulse Ox 94 09/09/22 07:47 O2 Del Method Room Air 09/09/22 07:47 BMI result Body Mass Index 28.3 Const: Other: General resting comfortably in no acute distress. Neck supple no JVD. CVS regular rate rhythm, Respiratory lungs clear to auscultation, no respiratory distress, no wheeze, no rhonchi. Gastrointestinal abdomen soft, nontender, bowel sounds audible,no guarding , no rigidity. Extremities no edema. Right foot dressing in place no drainage noted Neuro nonfocal, speech clear. No tremors Skin no rash Psych appropriate affect Objective Data Active Medications Acetaminophen (Acetaminophen 325 Mg Tablet) 650 mg PO Q6H PRN PRN Reason: Pain, Mild (Pain Scale 1-3) Last Admin: 09/08/22 10:27 Dose: 650 mg Documented By: PATRICIO Aspirin (Aspirin 81 Mg Tab.Chew) 81 mg PO DAILY [facility] Last Admin: 09/08/22 07:55 Dose: 81 mg Documented By: PATRICIO Atorvastatin Calcium (Atorvastatin Calcium 10 Mg Tablet) 10 mg PO DAILY [facility] Last Admin: 09/08/22 07:55 Dose: 10 mg Documented By: PATRICIO Docusate Sodium (Docusate Sodium 100 Mg Capsule) 100 mg PO DAILY PRN PRN Reason: Constipation Last Admin: 09/08/22 10:29 Dose: 100 mg Documented By: PATRICIO Enoxaparin Sodium (Enoxaparin Sodium 40 Mg/0.4 Ml Syringe) 40 mg SUBCUT Q24H [facility] Last Admin: 09/08/22 12:51 Dose: 40 mg Documented By: PATRICIO Ergocalciferol (Ergocalciferol (Vitamin D2) 1,250 Mcg Capsule) 1,250 mcg PO TU@0900 [facility] Last Admin: 09/06/22 08:02 Dose: 1,250 mcg Documented By: PUSHPA Ferrous Sulfate (Ferrous Sulfate 324 Mg Tablet.Dr) 324 mg PO DAILY [facility] Last Admin: 09/08/22 07:56 Dose: 324 mg Documented By: PATRICIO Finasteride (Finasteride 5 Mg Tablet) 5 mg PO DAILY [facility] Last Admin: 09/08/22 07:56 Dose: 5 mg Documented By: PATRICIO Fluoxetine HCl (Fluoxetine Hcl 10 Mg Capsule) 10 mg PO DAILY [facility] Last Admin: 09/08/22 07:56 Dose: 10 mg Documented By: PATRICIO Glucose (Glucose Gel 15 Gm Gel..Gram.) 15 gm PO Q15M PRN; Protocol PRN Reason: per Hypoglycemia Standing Ord. Haloperidol (Haloperidol 5 Mg Tablet) 5 mg PO BID [facility] Last Admin: 09/08/22 20:32 Dose: 5 mg Documented By: WILBER Hydroxyzine HCl (Hydroxyzine Hcl 25 Mg Tablet) 25 mg PO BID PRN PRN Reason: Anxiety Dextrose (D10) 250 mls @ 750 mls/hr IV Q15M PRN; Protocol PRN Reason: per Hypoglycemia Standing Ord. Cefazolin Sodium/Dextrose (Ancef) 2 gm in 50 mls @ 100 mls/hr IV Q8H [facility] Last Infusion: 09/09/22 03:32 Dose: 0 mls/hr Documented By: KEVIN Insulin Human Lispro (Insulin Lispro 100 Unit/Ml 3 Ml Vial) 0 unit SUBCUT QIDACHS [facility]; Protocol Last Admin: 09/08/22 20:32 Dose: Not Given Documented By: WILBER Non-Admin Reason: No Insulin Coverage (Dulaglutide [ Trulicity] 1.5 Mg/0. 5 Ml Pen Injector) 1.5 mg SUBCUT MO@0900 [facility] Last Admin: 09/05/22 14:39 Dose: 1.5 mg Documented By: FLORY Ondansetron HCl (Ondansetron Hcl 4 Mg/2 Ml Vial) 4 mg IVPUSH Q8H PRN PRN Reason: Nausea and Vomiting Pharmacy Consult (Consult Rx Perform Med Rec) 1 each MISCELLANE ONCE PRN PRN Reason: Consult order Sodium Chloride (0.9 % Sodium Chloride Flush 3 Ml Syringe) 3 ml IVFLUSH QSHIFT [facility] Last Admin: 09/09/22 02:38 Dose: 3 ml Documented By: HO.KULISZM Trazodone HCl (Trazodone Hcl 100 Mg Tablet) 100 mg PO BEDTIME PRN PRN Reason: insomnia Last Admin: 09/08/22 20:35 Dose: 100 mg Documented By: WILBER Labs 09/06/22 06:53 09/09/22 06:16 Labs: Laboratory Results - last 24 hr 09/08/22 09/08/22 09/08/22 09:51 11:36 16:06 Estim Creat Clear Calc Estimated GFR POC Glucose 136 H 102 Vancomycin Trough 11.3 09/08/22 09/09/22 09/09/22 20:32 06:16 07:44 Estim Creat Clear Calc 85.0 Estimated GFR > 60 POC Glucose 144 H 117 H Vancomycin Trough Microbiology Microbiology Results: Microbiology 09/05/22 00:44 Blood Culture - Preliminary Blood - Venous Prelim: GPC Gram Stain only Assessment and Plan (1) Osteomyelitis: Status: Acute Plan 57-year-old male with a PMH significant for CKD stage 3, NEEMA, HLD,?BPH, bipolar disorder, diabetes, orthostatic hypotension, and hx of diabetic foot ulcer w/ osteomyelitis who presents to the ED for evaluation for generalized weakness, lightheadedness, dizziness, and fall this morning at 03:00 when he got up to use the bathroom. Xrays of right foot consistent with osteomyelitis. Pt will be admitted to the hospital for treatment and further evaluation of osteomyelitis of the right foot. Sepsis due to diabetic foot ulcer /Osteomyelitis of 2nd metatarsal of right foot No fevers, WBC normalized Elevated ESR, CRP, positive x-ray evidence Status post bedside debridement of ulcer by Dr. Otero foot wrapped with Kerlix roll surgery recommend prolonged course of IV antibiotics and good blood sugar control 2/2 blood culture positive for Gram-positive cocci--sensitivity pending Dr. Vargas recommend dc'd IV Zosyn on 09/05, IV Kefzol started 09/05 and continue IV vancomycin started on 09/04, follow final blood culture report and adjust antibiotics. Burt DOLAN 09/07 S aureus [facility]. RX --------- --- Clindamycin >=8 R Erythromycin >=8 R Levofloxacin <=0.12 S Oxacillin 0.5 S Penicillin-G >=0.5 R Tetracycline <=1 S Trimethoprim/Sulfamethoxazole <=10 S ID to make further recommendation repeat blood culture 09/05 1/2 +, repeat BCx 09/08 pending VANESSA and CKD 3--Creatine now within baseline 0.09 Creatinine returned to baseline, monitor while on vanco Chronic Orthostatic hypotension, BP within normal Continue midodrine as needed BPH continue finasteride Non insulin-dependent diabetes Stable blood sugar, continue SSI, and diabetic diet, Trulicity is non formulary HLD Continue home meds Mood disorder Continue Haldol , trazodone and hydroxyzine Full Code Patient need continued inpatient hospitalization for IV antibiotic treatment for bacteremia and right foot ulcer. Discussed with HCP Maya who wants patient to go STR at discharge Time Spent With Patient Time: Total time managing care of this patient today ____ minutes. Quality Stroke Does the patient have a stroke diagnosis?: No VTE Prior VTE?: No VTE Risk Level:: Medical - moderate - high VTE Device Contraindication: Treatment Not Indicated VTE Drug Contraindication: N/A - Med Ordered
[2022-09-09 11:15] LABS: Glucose, Whole Blood 122 mg/dL (60-115)
[2022-09-09] MEDS: Finasteride 5 MG TABLET PO (11:54)
[2022-09-09] MEDS: Aspirin 81 MG TAB.CHEW PO (11:54)
[2022-09-09] MEDS: Ferrous Sulfate 324 MG TABLET.DR PO (11:54)
[2022-09-09] MEDS: HaloperidoL 5 MG TABLET PO ×2 (11:54→20:04)
[2022-09-09] MEDS: Atorvastatin Calcium 10 MG TABLET PO (11:54)
[2022-09-09] MEDS: FLUoxetine HCl 10 MG CAPSULE PO (11:54)
[2022-09-09] MEDS: Enoxaparin Sodium 40 MG/0.4 ML SYRINGE SUBCUT (12:11)
[2022-09-09 16:00] VITALS: BP 135/62; PULSE 87; RESP 18; TEMP 36.3; O2SAT 98
[2022-09-09 17:35] LABS: Glucose, Whole Blood 183 mg/dL (60-115)
[2022-09-09] MEDS: Insulin Lispro 100 UNIT/ML 3 ML VIAL SUBCUT (18:33)
[2022-09-09 19:46] VITALS: BP 150/69; PULSE 62; RESP 16; TEMP 36.6; O2SAT 96
[2022-09-09] MEDS: traZODone HCL 100 MG TABLET PO (20:04)
[2022-09-09] MEDS: polyethylene glycoL 3350 17 GM POWD.PACK PO (20:04)
[2022-09-09] MEDS: bisacodyL 10 MG SUPP.RECT PR (20:04)
[2022-09-09 20:23] LABS: Glucose, Whole Blood 141 mg/dL (60-115)
[2022-09-10] MEDS: ceFAZolin Sodium/Dextrose,Iso 2 GM/50 ML PIGGYBACK IV (02:45)
[2022-09-10 03:33] VITALS: BP 131/64; PULSE 68; RESP 16; TEMP 36.8; O2SAT 97
[2022-09-10 07:06] LABS: Creatinine Clr Calc Pharmacy 82.3; Estimated Glomerular Filt Rate > 60
[2022-09-10 07:13] VITALS: BP 131/65; PULSE 64; RESP 16; TEMP 36.3; O2SAT 96
[2022-09-10 07:25] LABS: Glucose, Whole Blood 101 mg/dL (60-115)
[2022-09-10] MEDS: Aspirin 81 MG TAB.CHEW PO (07:34)
[2022-09-10] MEDS: Finasteride 5 MG TABLET PO (07:34)
[2022-09-10] MEDS: Ferrous Sulfate 324 MG TABLET.DR PO (07:35)
[2022-09-10] MEDS: FLUoxetine HCl 10 MG CAPSULE PO (07:35)
[2022-09-10] MEDS: Atorvastatin Calcium 10 MG TABLET PO (07:35)
[2022-09-10] MEDS: HaloperidoL 5 MG TABLET PO ×2 (07:35→21:22)
[2022-09-10] MEDS: 0.9 % Sodium Chloride Flush 3 ML SYRINGE IVFLUSH ×2 (07:35→21:14)
--- NOTE | 2022-09-10 09:08 | P.PNIM_ITS ---
Subjective Subjective Date of Service: 09/10/22 Interval History: f/u bacteremia, osteomylitis of foot, new issues. offer no concerns Physical Exam Vital Signs: Vital Signs: Last Vital Signs Temp 97.4 F 09/10/22 07:13 Pulse 64 09/10/22 07:13 Resp 16 09/10/22 07:13 BP 131/65 09/10/22 07:13 Pulse Ox 96 09/10/22 07:13 O2 Del Method Room Air 09/10/22 07:13 BMI result Body Mass Index 28.3 Objective Data Active Medications Acetaminophen (Acetaminophen 325 Mg Tablet) 650 mg PO Q6H PRN PRN Reason: Pain, Mild (Pain Scale 1-3) Last Admin: 09/08/22 10:27 Dose: 650 mg Documented By: PATRICIO Aspirin (Aspirin 81 Mg Tab.Chew) 81 mg PO DAILY [facility] Last Admin: 09/10/22 07:34 Dose: 81 mg Documented By: JOCELIN Atorvastatin Calcium (Atorvastatin Calcium 10 Mg Tablet) 10 mg PO DAILY [facility] Last Admin: 09/10/22 07:35 Dose: 10 mg Documented By: JOCELIN Docusate Sodium (Docusate Sodium 100 Mg Capsule) 100 mg PO DAILY PRN PRN Reason: Constipation Last Admin: 09/08/22 10:29 Dose: 100 mg Documented By: PATRICIO Enoxaparin Sodium (Enoxaparin Sodium 40 Mg/0.4 Ml Syringe) 40 mg SUBCUT Q24H [facility] Last Admin: 09/09/22 12:11 Dose: 40 mg Documented By: PATRICIA Ergocalciferol (Ergocalciferol (Vitamin D2) 1,250 Mcg Capsule) 1,250 mcg PO TU@0900 [facility] Last Admin: 09/06/22 08:02 Dose: 1,250 mcg Documented By: PUSHPA Ferrous Sulfate (Ferrous Sulfate 324 Mg Tablet.Dr) 324 mg PO DAILY [facility] Last Admin: 09/10/22 07:35 Dose: 324 mg Documented By: JOCELIN Finasteride (Finasteride 5 Mg Tablet) 5 mg PO DAILY [facility] Last Admin: 09/10/22 07:34 Dose: 5 mg Documented By: JOCELIN Fluoxetine HCl (Fluoxetine Hcl 10 Mg Capsule) 10 mg PO DAILY [facility] Last Admin: 09/10/22 07:35 Dose: 10 mg Documented By: JOCELIN Glucose (Glucose Gel 15 Gm Gel..Gram.) 15 gm PO Q15M PRN; Protocol PRN Reason: per Hypoglycemia Standing Ord. Haloperidol (Haloperidol 5 Mg Tablet) 5 mg PO BID [facility] Last Admin: 09/10/22 07:35 Dose: 5 mg Documented By: JOCELIN Hydroxyzine HCl (Hydroxyzine Hcl 25 Mg Tablet) 25 mg PO BID PRN PRN Reason: Anxiety Dextrose (D10) 250 mls @ 750 mls/hr IV Q15M PRN; Protocol PRN Reason: per Hypoglycemia Standing Ord. Cefazolin Sodium/Dextrose (Ancef) 2 gm in 50 mls @ 100 mls/hr IV Q8H [facility] Last Infusion: 09/10/22 03:20 Dose: 0 mls/hr Documented By: ADALI Insulin Human Lispro (Insulin Lispro 100 Unit/Ml 3 Ml Vial) 0 unit SUBCUT QIDACHS [facility]; Protocol Last Admin: 09/10/22 07:42 Dose: Not Given Documented By: JOCELIN Non-Admin Reason: No Insulin Coverage (Dulaglutide [ Trulicity] 1.5 Mg/0. 5 Ml Pen Injector) 1.5 mg SUBCUT MO@0900 [facility] Last Admin: 09/05/22 14:39 Dose: 1.5 mg Documented By: FLORY Ondansetron HCl (Ondansetron Hcl 4 Mg/2 Ml Vial) 4 mg IVPUSH Q8H PRN PRN Reason: Nausea and Vomiting Pharmacy Consult (Consult Rx Perform Med Rec) 1 each MISCELLANE ONCE PRN PRN Reason: Consult order Sodium Chloride (0.9 % Sodium Chloride Flush 3 Ml Syringe) [facility] Last Admin: 09/10/22 07:35 Dose: 3 ml Documented By: JOCELIN Trazodone HCl (Trazodone Hcl 100 Mg Tablet) 100 mg PO BEDTIME PRN PRN Reason: insomnia Last Admin: 09/09/22 20:04 Dose: 100 mg Documented By: ADALI Labs 09/06/22 06:53 09/10/22 06:07 Labs: Laboratory Results - last 24 hr 09/09/22 09/09/22 09/09/22 10:59 17:31 20:13 Estim Creat Clear Calc Estimated GFR POC Glucose 122 H 183 H 141 H 09/10/22 09/10/22 06:07 07:12 Estim Creat Clear Calc 82.3 Estimated GFR > 60 POC Glucose 101 Microbiology Microbiology Results: Microbiology 09/08/22 14:40 Blood Culture - Preliminary Blood - Venous No growth after 24 hours. 09/08/22 14:40 Blood Culture - Preliminary Blood - Venous No growth after 24 hours. 09/05/22 00:44 Blood Culture - Final Blood - Venous Staphylococcus aureus Assessment and Plan (1) Osteomyelitis: Status: Acute Plan 57-year-old male with a PMH significant for CKD stage 3, NEEMA, HLD,?BPH, bipolar disorder, diabetes, orthostatic hypotension, and hx of diabetic foot ulcer w/ osteomyelitis who presents to the ED for evaluation for generalized weakness, lightheadedness, dizziness, and fall this morning at 03:00 when he got up to use the bathroom. Xrays of right foot consistent with osteomyelitis. Pt will be adm itted to the hospital for treatment and further evaluation of osteomyelitis of the right foot. Sepsis due to diabetic foot ulcer /acute Osteomyelitis of 2nd metatarsal of right foot No fevers, WBC normalized Elevated ESR, CRP, positive x-ray evidence Status post bedside debridement of ulcer by Dr. Otero foot wrapped with Kerlix roll surgery recommend prolonged course of IV antibiotics and good blood sugar control 2 blood culture positive for Gram-positive cocci--sensitivity pending Dr. Vargas recommend dc'd IV Zosyn on 09/05, IV Kefzol started 09/05 and Dc'd on 09/09, and continue IV vancomycin started on 09/04, and dc'ed on 09/07 Levaquin 09/10 based on sensitivity repeat Bcx 09/08, negative at 24h S aureus M.I.C. RX --------- --- Clindamycin >=8 R Erythromycin >=8 R Levofloxacin <=0.12 S Oxacillin 0.5 S Penicillin-G >=0.5 R Tetracycline <=1 S Trimethoprim/Sulfamethoxazole <=10 S ID to make further recommendation repeat blood culture 09/05 1/2 +, repeat BCx 09/08 pending VANESSA and CKD 3--Creatine now within baseline <1 Creatinine returned to baseline, monitor while on vanco Chronic Orthostatic hypotension, BP within normal BP ok so stopped Midodrine BPH continue finasteride Non insulin-dependent diabetes Stable blood sugar, continue SSI, and diabetic diet, Trulicity is non formulary HLD Continue home meds Mood disorder Continue Haldol , trazodone and hydroxyzine Full Code Patient need continued inpatient hospitalization for IV antibiotic treatment for bacteremia and right foot ulcer. Discussed with HCP Maya who wants patient to go [facility] at discharge Time Spent With Patient Time: Total time managing care of this patient today ____ minutes. Quality Stroke Does the patient have a stroke diagnosis?: No VTE Prior VTE?: No VTE Risk Level:: Medical - moderate - high VTE Device Contraindication: Treatment Not Indicated VTE Drug Contraindication: N/A - Med Ordered
[2022-09-10] MEDS: levoFLOXacin/D5W 750 MG/150 ML PIGGYBACK 100 MG IV (09:45)
[2022-09-10 11:09] VITALS: BP 121/65; PULSE 72; RESP 20; TEMP 36.1; O2SAT 96
[2022-09-10 11:56] LABS: Glucose, Whole Blood 144 mg/dL (60-115)
[2022-09-10] MEDS: Enoxaparin Sodium 40 MG/0.4 ML SYRINGE SUBCUT (12:16)
[2022-09-10 15:59] VITALS: BP 129/66; PULSE 80; RESP 20; O2SAT 95
[2022-09-10 16:54] LABS: Glucose, Whole Blood 111 mg/dL (60-115)
[2022-09-10 19:15] VITALS: BP 147/71; PULSE 66; RESP 16; TEMP 36.4; O2SAT 97
[2022-09-10 20:44] VITALS: BP 149/70; PULSE 63; RESP 16; TEMP 36.4; O2SAT 94
[2022-09-10 20:47] LABS: Glucose, Whole Blood 128 mg/dL (60-115)
[2022-09-11 03:16] VITALS: BP 147/72; PULSE 68; RESP 16; TEMP 35.8; O2SAT 97
[2022-09-11 04:40] VITALS: TEMP 36.4
[2022-09-11 06:35] LABS: Creatinine Clr Calc Pharmacy 83.2; Estimated Glomerular Filt Rate > 60
[2022-09-11 07:39] VITALS: BP 138/70; PULSE 65; RESP 16; TEMP 36.2; O2SAT 93
[2022-09-11 07:40] LABS: Glucose, Whole Blood 103 mg/dL (60-115)
--- NOTE | 2022-09-11 09:03 | HO.PM.IMPN ---
Subjective Subjective Date of Service: 09/12/22 Interval History: Seen in f/u for acute oseomylitis Interval history, no change Physical Exam Vital Signs: Vital Signs: Last Vital Signs Temp 97.2 F 09/11/22 07:39 Pulse 65 09/11/22 07:39 Resp 16 09/11/22 07:39 BP 138/70 09/11/22 07:39 Pulse Ox 93 09/11/22 07:39 O2 Del Method Room Air 09/11/22 07:39 BMI result Body Mass Index 28.3 Const: Other: General resting comfortably in no acute distress. Neck supple no JVD. CVS regular rate rhythm, Respiratory lungs clear to auscultation, no respiratory distress, no wheeze, no rhonchi. Gastrointestinal abdomen soft, nontender, bowel sounds audible,no guarding , no rigidity. Extremities no edema. Right foot dressing in place no drainage noted Neuro nonfocal, speech clear. No tremors Skin no rash Psych appropriate affect Objective Data Active Medications Acetaminophen (Acetaminophen 325 Mg Tablet) 650 mg PO Q6H PRN PRN Reason: Pain, Mild (Pain Scale 1-3) Last Admin: 09/08/22 10:27 Dose: 650 mg Documented By: PATRICIO Aspirin (Aspirin 81 Mg Tab.Chew) 81 mg PO DAILY [facility] Last Admin: 09/10/22 07:34 Dose: 81 mg Documented By: JOCELIN Atorvastatin Calcium (Atorvastatin Calcium 10 Mg Tablet) 10 mg PO DAILY [facility] Last Admin: 09/10/22 07:35 Dose: 10 mg Documented By: JOCELIN Docusate Sodium (Docusate Sodium 100 Mg Capsule) 100 mg PO DAILY PRN PRN Reason: Constipation Last Admin: 09/08/22 10:29 Dose: 100 mg Documented By: PATRICIO Enoxaparin Sodium (Enoxaparin Sodium 40 Mg/0.4 Ml Syringe) 40 mg SUBCUT Q24H [facility] Last Admin: 09/10/22 12:16 Dose: 40 mg Documented By: JOCELIN Ergocalciferol (Ergocalciferol (Vitamin D2) 1,250 Mcg Capsule) 1,250 mcg PO TU@0900 [facility] Last Admin: 09/06/22 08:02 Dose: 1,250 mcg Documented By: PUSHPA Ferrous Sulfate (Ferrous Sulfate 324 Mg Tablet.Dr) 324 mg PO DAILY [facility] Last Admin: 09/10/22 07:35 Dose: 324 mg Documented By: JOCELIN Finasteride (Finasteride 5 Mg Tablet) 5 mg PO DAILY [facility] Last Admin: 09/10/22 07:34 Dose: 5 mg Documented By: JOCELIN Fluoxetine HCl (Fluoxetine Hcl 10 Mg Capsule) 10 mg PO DAILY [facility] Last Admin: 09/10/22 07:35 Dose: 10 mg Documented By: JOCELIN Glucose (Glucose Gel 15 Gm Gel..Gram.) 15 gm PO Q15M PRN; Protocol PRN Reason: per Hypoglycemia Standing Ord. Haloperidol (Haloperidol 5 Mg Tablet) 5 mg PO BID [facility] Last Admin: 09/10/22 21:22 Dose: 5 mg Documented By: APOORVA Hydroxyzine HCl (Hydroxyzine Hcl 25 Mg Tablet) 25 mg PO BID PRN PRN Reason: Anxiety Dextrose (D10) 250 mls @ 750 mls/hr IV Q15M PRN; Protocol PRN Reason: per Hypoglycemia Standing Ord. Levofloxacin (Levaquin) 750 mg in 150 mls @ 100 mls/hr IV Q24H [facility] Last Infusion: 09/10/22 11:15 Dose: 0 mls/hr Documented By: JOCELIN Insulin Human Lispro (Insulin Lispro 100 Unit/Ml 3 Ml Vial) 0 unit SUBCUT QIDACHS [facility]; Protocol Last Admin: 09/11/22 07:42 Dose: Not Given Documented By: ANGELITO Non-Admin Reason: See Note (Dulaglutide [ Trulicity] 1.5 Mg/0. 5 Ml Pen Injector) 1.5 mg SUBCUT MO@0900 [facility] Last Admin: 09/05/22 14:39 Dose: 1.5 mg Documented By: FLORY Ondansetron HCl (Ondansetron Hcl 4 Mg/2 Ml Vial) 4 mg IVPUSH Q8H PRN PRN Reason: Nausea and Vomiting Pharmacy Consult (Consult Rx Perform Med Rec) 1 each MISCELLANE ONCE PRN PRN Reason: Consult order Sodium Chloride (0.9 % Sodium Chloride Flush 3 Ml Syringe) 3 ml IVFLUSH QSHIFT [facility] Last Admin: 09/11/22 07:15 Dose: Not Given Documented By: ANGELITO Non-Admin Reason: See Note Trazodone HCl (Trazodone Hcl 100 Mg Tablet) 100 mg PO BEDTIME PRN PRN Reason: insomnia Last Admin: 09/09/22 20:04 Dose: 100 mg Documented By: ADALI Labs 09/06/22 06:53 09/11/22 05:58 Labs: Laboratory Results - last 24 hr 09/10/22 09/10/22 09/10/22 11:48 16:43 20:39 Estim Creat Clear Calc Estimated GFR POC Glucose 144 H 111 128 H 09/11/22 09/11/22 05:58 07:18 Estim Creat Clear Calc 83.2 Estimated GFR > 60 POC Glucose 103 Microbiology Microbiology Results: Microbiology 09/08/22 14:40 Blood Culture - Preliminary Blood - Venous No growth after 48 hours. 09/08/22 14:40 Blood Culture - Preliminary Blood - Venous No growth after 48 hours. Assessment and Plan (1) Osteomyelitis: Status: Acute Plan 57-year-old male with a PMH significant for CKD stage 3, NEEMA, HLD,?BPH, bipolar disorder, diabetes, orthostatic hypotension, and hx of diabetic foot ulcer w/ osteomyelitis who presents to the ED for evaluation for generalized weakness, lightheadedness, dizziness, and fall this morning at 03:00 when he got up to use the bathroom. Xrays of right foot consistent with osteomyelitis. Pt will be admitted to the hospital for treatment and further evaluation of osteomyelitis of the right foot. Sepsis due to diabetic foot ulcer , acute Osteomyelitis of 2nd metatarsal of right foot with elevated ESR, CRP, positive x-ray evidence Is being followed by [facility] (Dr. Otero) with debridment as needed. Blood cultures 09/04 and 09/05 Staph Aureus, repeat Blood culture 09/08 negative x 48s Initially was on Zosyn and Vanco. Changed to Kefzol on 09/05, then started on Levaquin 09/10 based on below sensitivity ID to make final recommendation, will likely need 4 to 6 weeks. Picc line requested S aureus M.I.C. RX --------- --- Clindamycin >=8 R Erythromycin >=8 R Levofloxacin <=0.12 S Oxacillin 0.5 S Penicillin-G >=0.5 R Tetracycline <=1 S Trimethoprim/Sulfamethoxazole <=10 S VANESSA and CKD 3--Creatine now within baseline <1 Chronic Orthostatic hypotension, BP within normal BP ok so stopped Midodrine BPH continue finasteride Non insulin-dependent diabetes Stable blood sugar, continue SSI, and diabetic diet, Trulicity is non formulary HLD Continue home meds Mood disorder Continue Haldol , trazodone and hydroxyzine Full Code Patient need continued inpatient hospitalization for IV antibiotic treatment for bacteremia and right foot ulcer. Discussed with HCP Maya who wants patient to go [facility] at discharge Time Spent With Patient Time: Total time managing care of this patient today ____ minutes. Quality Stroke Does the patient have a stroke diagnosis?: No VTE Prior VTE?: No VTE Risk Level:: Medical - moderate - high VTE Device Contraindication: Treatment Not Indicated VTE Drug Contraindication: N/A - Med Ordered
[2022-09-11] MEDS: levoFLOXacin/D5W 750 MG/150 ML PIGGYBACK 100 MG IV (09:31)
[2022-09-11] MEDS: Finasteride 5 MG TABLET PO (09:31)
[2022-09-11] MEDS: Aspirin 81 MG TAB.CHEW PO (09:31)
[2022-09-11] MEDS: FLUoxetine HCl 10 MG CAPSULE PO (09:32)
[2022-09-11] MEDS: Ferrous Sulfate 324 MG TABLET.DR PO (09:32)
[2022-09-11] MEDS: Atorvastatin Calcium 10 MG TABLET PO (09:32)
[2022-09-11] MEDS: HaloperidoL 5 MG TABLET PO ×2 (09:32→20:41)
[2022-09-11 11:29] LABS: Glucose, Whole Blood 138 mg/dL (60-115)
[2022-09-11] MEDS: Enoxaparin Sodium 40 MG/0.4 ML SYRINGE SUBCUT (12:24)
[2022-09-11 15:34] VITALS: BP 150/70; PULSE 70; RESP 15; TEMP 36.3; O2SAT 97
[2022-09-11 16:23] LABS: Glucose, Whole Blood 142 mg/dL (60-115)
--- NOTE | 2022-09-11 18:25 | PC.NURSE ---
patient admitting representative at bedside for med pass and assessment. dressing change performed. family updated
[2022-09-11 19:45] VITALS: BP 143/75; PULSE 70; RESP 15; TEMP 36.3; O2SAT 96
[2022-09-11 20:10] LABS: Glucose, Whole Blood 157 mg/dL (60-115)
[2022-09-11] MEDS: Insulin Lispro 100 UNIT/ML 3 ML VIAL SUBCUT (20:41)
[2022-09-11] MEDS: 0.9 % Sodium Chloride Flush 3 ML SYRINGE IVFLUSH (20:41)
[2022-09-12] MEDS: Acetaminophen 325 MG TABLET 650 MG PO ×2 (02:36→19:22)
[2022-09-12 02:56] VITALS: BP 132/63; PULSE 63; RESP 16; TEMP 35.8; O2SAT 95
[2022-09-12 07:36] LABS: Glucose, Whole Blood 103 mg/dL (60-115)
[2022-09-12 07:44] VITALS: BP 132/73; PULSE 66; RESP 16; TEMP 36.6; O2SAT 96
[2022-09-12] MEDS: Atorvastatin Calcium 10 MG TABLET PO (08:14)
[2022-09-12] MEDS: FLUoxetine HCl 10 MG CAPSULE PO (08:14)
[2022-09-12] MEDS: Finasteride 5 MG TABLET PO (08:14)
[2022-09-12] MEDS: 0.9 % Sodium Chloride Flush 3 ML SYRINGE IVFLUSH ×3 (08:14→20:34)
[2022-09-12] MEDS: Ferrous Sulfate 324 MG TABLET.DR PO (08:14)
[2022-09-12] MEDS: Aspirin 81 MG TAB.CHEW PO (08:14)
[2022-09-12] MEDS: HaloperidoL 5 MG TABLET PO ×2 (08:14→20:34)
[2022-09-12] MEDS: levoFLOXacin/D5W 750 MG/150 ML PIGGYBACK 100 MG IV (09:27)
[2022-09-12 11:27] LABS: Glucose, Whole Blood 153 mg/dL (60-115)
[2022-09-12] MEDS: Enoxaparin Sodium 40 MG/0.4 ML SYRINGE SUBCUT (12:03)
[2022-09-12] MEDS: Insulin Lispro 100 UNIT/ML 3 ML VIAL SUBCUT ×2 (12:03→20:34)
[2022-09-12 15:18] VITALS: BP 140/64; PULSE 68; RESP 16; TEMP 36.2; O2SAT 97
[2022-09-12 16:18] LABS: Glucose, Whole Blood 125 mg/dL (60-115)
[2022-09-12 19:30] VITALS: BP 140/70; PULSE 70; RESP 15; TEMP 36.7; O2SAT 95
[2022-09-12 20:06] LABS: Glucose, Whole Blood 202 mg/dL (60-115)
[2022-09-12] MEDS: traZODone HCL 100 MG TABLET PO (20:38)
[2022-09-13 02:53] VITALS: BP 134/71; PULSE 62; RESP 16; TEMP 36.1; O2SAT 96
[2022-09-13 07:31] LABS: Glucose, Whole Blood 86 mg/dL (60-115)
[2022-09-13 07:36] VITALS: BP 127/68; PULSE 66; RESP 17; TEMP 36.2; O2SAT 94
--- NOTE | 2022-09-13 08:23 | HO.PM.IMPN ---
Subjective Subjective Date of Service: 09/13/22 Interval History: Seen in f/u for acute oseomylitis Interval history, no new issues, vital stable Physical Exam Vital Signs: Vital Signs: Last Vital Signs Temp 97.1 F 09/13/22 07:36 Pulse 66 09/13/22 07:36 Resp 17 09/13/22 07:36 BP 127/68 09/13/22 07:36 Pulse Ox 94 09/13/22 07:36 O2 Del Method Room Air 09/13/22 07:36 BMI result Body Mass Index 28.3 Const: Other: essentially unchanged General resting comfortably in no acute distress. Neck supple no JVD. CVS regular rate rhythm, Respiratory lungs clear to auscultation, no respiratory distress, no wheeze, no rhonchi. Gastrointestinal abdomen soft, nontender, bowel sounds audible,no guarding , no rigidity. Extremities no edema. Right foot dressing in place no drainage noted Neuro nonfocal, speech clear. No tremors Skin no rash Psych appropriate affect Objective Data Active Medications Acetaminophen (Acetaminophen 325 Mg Tablet) 650 mg PO Q6H PRN PRN Reason: Pain, Mild (Pain Scale 1-3) Last Admin: 09/12/22 19:22 Dose: 650 mg Documented By: TATYANA Aspirin (Aspirin 81 Mg Tab.Chew) 81 mg PO DAILY [facility] Last Admin: 09/12/22 08:14 Dose: 81 mg Documented By: ARIANA Atorvastatin Calcium (Atorvastatin Calcium 10 Mg Tablet) 10 mg PO DAILY [facility] Last Admin: 09/12/22 08:14 Dose: 10 mg Documented By: ARIANA Docusate Sodium (Docusate Sodium 100 Mg Capsule) 100 mg PO DAILY PRN PRN Reason: Constipation Last Admin: 09/08/22 10:29 Dose: 100 mg Documented By: PATRICIO Enoxaparin Sodium (Enoxaparin Sodium 40 Mg/0.4 Ml Syringe) 40 mg SUBCUT Q24H [facility] Last Admin: 09/12/22 12:03 Dose: 40 mg Documented By: ARIANA Ergocalciferol (Ergocalciferol (Vitamin D2) 1,250 Mcg Capsule) 1,250 mcg PO TU@0900 [facility] Last Admin: 09/06/22 08:02 Dose: 1,250 mcg Documented By: PUSHPA Ferrous Sulfate (Ferrous Sulfate 324 Mg Tablet.) 324 mg PO DAILY [facility] Last Admin: 09/12/22 08:14 Dose: 324 mg Documented By: ARIANA Finasteride (Finasteride 5 Mg Tablet) 5 mg PO DAILY [facility] Last Admin: 09/12/22 08:14 Dose: 5 mg Documented By: ARIANA Fluoxetine HCl (Fluoxetine Hcl 10 Mg Capsule) 10 mg PO DAILY [facility] Last Admin: 09/12/22 08:14 Dose: 10 mg Documented By: ARIANA Glucose (Glucose Gel 15 Gm Gel..Gram.) 15 gm PO Q15M PRN; Protocol PRN Reason: per Hypoglycemia Standing Ord. Haloperidol (Haloperidol 5 Mg Tablet) 5 mg PO BID [facility] Last Admin: 09/12/22 20:34 Dose: 5 mg Documented By: TATYANA Hydroxyzine HCl (Hydroxyzine Hcl 25 Mg Tablet) 25 mg PO BID PRN PRN Reason: Anxiety Dextrose (D10) 250 mls @ 750 mls/hr IV Q15M PRN; Protocol PRN Reason: per Hypoglycemia Standing Ord. Levofloxacin (Levaquin) 750 mg in 150 mls @ 100 mls/hr IV Q24H [facility] Last Infusion: 09/12/22 11:26 Dose: 0 mls/hr Documented By: ARIANA Insulin Human Lispro (Insulin Lispro 100 Unit/Ml 3 Ml Vial) 0 unit SUBCUT QIDACHS [facility]; Protocol Last Admin: 09/12/22 20:34 Dose: 4 unit Documented By: ODRISM (Dulaglutide [ Trulicity] 1.5 Mg/0. 5 Ml Pen Injector) 1.5 mg SUBCUT MO@0900 [facility] Last Admin: 09/12/22 08:20 Dose: Not Given Documented By: ARIANA Non-Admin Reason: Med Not Available Ondansetron HCl (Ondansetron Hcl 4 Mg/2 Ml Vial) 4 mg IVPUSH Q8H PRN PRN Reason: Nausea and Vomiting Pharmacy Consult (Consult Rx Perform Med Rec) 1 each MISCELLANE ONCE PRN PRN Reason: Consult order Sodium Chloride (0.9 % Sodium Chloride Flush 3 Ml Syringe) 3 ml IVFLUSH QSHIFT [facility] Last Admin: 09/12/22 20:34 Dose: 3 ml Documented By: CECILERISMeg Trazodone HCl (Trazodone Hcl 100 Mg Tablet) 100 mg PO BEDTIME PRN PRN Reason: insomnia Last Admin: 09/12/22 20:38 Dose: 100 mg Documented By: TATYANA Labs 09/06/22 06:53 09/11/22 05:58 Labs: Laboratory Results - last 24 hr 09/12/22 09/12/22 09/12/22 11:12 16:02 19:33 POC Glucose 153 H 125 H 202 H 09/13/22 07:14 POC Glucose 86 Assessment and Plan (1) Osteomyelitis: Status: Acute Plan 57-year-old male with a PMH significant for CKD stage 3, NEEMA, HLD,?BPH, bipolar disorder, diabetes, orthostatic hypotension, and hx of diabetic foot ulcer w/ osteomyelitis who presents to the ED for evaluation for generalized weakness, lightheadedness, dizziness, and fall this morning at 03:00 when he got up to use the bathroom. Xrays of right foot consistent with osteomyelitis. Pt will be admitted to the hospital for treatment and further evaluation of osteomyelitis of the right foot. Sepsis due to diabetic foot ulcer , acute Osteomyelitis of 2nd metatarsal of right foot with elevated ESR, CRP, positive x-ray evidence Is being followed by [facility] (Dr. Otero) with debridment as needed. Blood cultures 09/04 and 09/05 Staph Aureus, repeat Blood culture 09/08 negative x 48s Initially was on Zosyn and Vanco. Changed to Kefzol on 09/05, then started on Levaquin 09/10 based on below sensitivity ID to make final recommendation, will likely need 4 to 6 weeks. Picc line requested for today S aureus M.I.C. RX --------- --- Clindamycin >=8 R Erythromycin >=8 R Levofloxacin <=0.12 S Oxacillin 0.5 S Penicillin-G >=0.5 R Tetracycline <=1 S Trimethoprim/Sulfamethoxazole <=10 S VANESSA and CKD 3--Creatine now within baseline <1 Chronic Orthostatic hypotension, BP within normal BP ok so stopped Midodrine BPH continue finasteride Non insulin-dependent diabetes Stable blood sugar, continue SSI, and diabetic diet, Trulicity is non formulary HLD Continue home meds Mood disorder Continue Haldol , trazodone and hydroxyzine Full Code Patient need continued inpatient hospitalization for IV antibiotic treatment for bacteremia and right foot ulcer. Discussed with HCP Maya who wants patient to go STR at discharge Time Spent With Patient Time: Total time managing care of this patient today ____ minutes. Quality Stroke Does the patient have a stroke diagnosis?: No VTE Prior VTE?: No VTE Risk Level:: Medical - moderate - high VTE Device Contraindication: Treatment Not Indicated VTE Drug Contraindication: N/A - Med Ordered
[2022-09-13 08:39] LABS: Hematocrit 33.6 % (42.0-52.0); Hemoglobin 10.9 g/dl (14.0-18.0); Mean Corpuscular HGB Conc 32.4 g/dl (31.0-36.0); Mean Corpuscular Hemoglobin 29.1 pg (27.0-33.0); Mean Corpuscular Volume 89.8 fL (80.0-98.0); Mean Platelet Volume 8.5 fL (9.4-12.4); Platelet Count 681 X10*3/uL (160-400); Red Blood Count 3.74 X10*6/uL (4.60-5.80); Red Cell Distribution Width 14.6 % (11.0-16.0)
[2022-09-13] MEDS: Atorvastatin Calcium 10 MG TABLET PO (08:46)
[2022-09-13] MEDS: Finasteride 5 MG TABLET PO (08:46)
[2022-09-13] MEDS: Ferrous Sulfate 324 MG TABLET.DR PO (08:47)
[2022-09-13] MEDS: Aspirin 81 MG TAB.CHEW PO (08:47)
[2022-09-13] MEDS: FLUoxetine HCl 10 MG CAPSULE PO (08:47)
[2022-09-13] MEDS: 0.9 % Sodium Chloride Flush 3 ML SYRINGE IVFLUSH ×3 (08:48→20:36)
[2022-09-13 09:00] LABS: Anion Gap 13 (12-20); Blood Urea Nitrogen 20 mg/dL (9-16); Calcium 8.3 mg/dL (8.4-10.2); Carbon Dioxide 27 mmol/L (22-29); Chloride 105 mmol/L (96-108); Creatinine Clr Calc Pharmacy 73.7; Estimated Glomerular Filt Rate > 60; Glucose Random 90 mg/dL (60-115); Potassium 4.5 mmol/L (3.3-5.1); Sodium 140 mmol/L (135-145)
[2022-09-13] MEDS: levoFLOXacin/D5W 750 MG/150 ML PIGGYBACK 100 MG IV (09:00)
[2022-09-13] MEDS: HaloperidoL 5 MG TABLET PO ×2 (09:02→20:36)
[2022-09-13 11:21] LABS: Glucose, Whole Blood 109 mg/dL (60-115)
[2022-09-13] MEDS: Enoxaparin Sodium 40 MG/0.4 ML SYRINGE SUBCUT (12:40)
[2022-09-13] MEDS: Ergocalciferol (Vitamin D2) 1,250 MCG CAPSULE 1250 MCG PO (12:40)
[2022-09-13] MEDS: ceFAZolin Sodium/Dextrose,Iso 2 GM/50 ML PIGGYBACK IV ×2 (14:48→21:10)
--- NOTE | 2022-09-13 15:42 | MHC.CM.PN ---
call placed message left for hcp/ryan healy [phone]
[2022-09-13 15:44] VITALS: BP 125/74; PULSE 70; RESP 18; TEMP 36.6; O2SAT 94
--- NOTE | 2022-09-13 16:07 | PM.IDPN ---
Subjective Subjective Date of Service: 09/13/22 Critical Care Time (minutes): 15 Comment: he is sleepy,no complaints Objective Data Labs 09/13/22 08:08 09/13/22 08:08 Labs: Laboratory Results - last 24 hr 09/12/22 09/12/22 09/13/22 16:02 19:33 07:14 WBC RBC Hgb Hct MCV MCH MCHC RDW Plt Count MPV Absolute Nucleated RBC Nucleated RBC % (auto) Sodium Potassium Chloride Carbon Dioxide Anion Gap BUN Creatinine Estim Creat Clear Calc Estimated GFR POC Glucose 125 H 202 H 86 Random Glucose Calcium 09/13/22 09/13/22 09/13/22 08:08 08:08 11:10 WBC 12.0 H RBC 3.74 L Hgb 10.9 L Hct 33.6 L MCV 89.8 MCH 29.1 MCHC 32.4 RDW 14.6 Plt Count 681 H D MPV 8.5 L Absolute Nucleated RBC 0.000 Nucleated RBC % (auto) 0.0 Sodium 140 Potassium 4.5 D Chloride 105 Carbon Dioxide 27 Anion Gap 13 BUN 20 H Creatinine 1.06 Estim Creat Clear Calc 73.7 Estimated GFR > 60 POC Glucose 109 Random Glucose 90 Calcium 8.3 L D Microbiology Microbiology Results: Microbiology 09/08/22 14:40 Blood - Venous Blood Culture - Preliminary No growth after 48 hours. 09/08/22 14:40 Blood - Venous Blood Culture - Preliminary No growth after 48 hours. 09/05/22 00:44 Blood - Venous Blood Culture - Final Staphylococcus aureus 09/05/22 00:44 Blood - Venous Blood Culture - Final Staphylococcus aureus 09/04/22 10:41 Blood - Venous Blood Culture - Final Staphylococcus aureus 09/04/22 10:05 Blood - Venous Blood Culture - Final Staphylococcus aureus Physical Exam Vital Signs: Vital Signs: Last Vital Signs Temp 97.8 F 09/13/22 15:44 Pulse 70 09/13/22 15:44 Resp 18 09/13/22 15:44 BP 125/74 09/13/22 15:44 Pulse Ox 94 09/13/22 15:44 O2 Del Method Room Air 09/13/22 15:44 BMI result Body Mass Index 28.3 Const: General: cooperative Resp: Effort & Inspection: normal respiratory effort Cardio: Rate: regular rate Rhythm: regular rhythm GI: Inspection: Yes normal to inspection Extrem: Other: wrapped area foot,no cellulitis Assessment and Plan Assessment and plan (1) Bacteremia: Problem details: MSSA bacteremia with OM Status: Acute Assessment and Plan: Finish six week IV Kefzol 10/18 See outpatient. (2) Foot ulcer: Status: Acute (3) Osteomyelitis: Status: Acute Time Spent With Patient Time: Total time managing care of this patient today ____ minutes.
[2022-09-13 17:50] LABS: Glucose, Whole Blood 88 mg/dL (60-115)
[2022-09-13 19:13] VITALS: BP 116/59; PULSE 71; RESP 16; TEMP 35.6; O2SAT 98
[2022-09-13 20:38] LABS: Glucose, Whole Blood 160 mg/dL (60-115)
[2022-09-13] MEDS: Insulin Lispro 100 UNIT/ML 3 ML VIAL SUBCUT (21:09)
[2022-09-14 03:13] VITALS: BP 133/69; PULSE 100; RESP 16; TEMP 35.9; O2SAT 96
[2022-09-14] MEDS: ceFAZolin Sodium/Dextrose,Iso 2 GM/50 ML PIGGYBACK IV ×3 (05:45→21:05)
[2022-09-14 07:20] VITALS: BP 134/68; PULSE 69; RESP 18; TEMP 36.5; O2SAT 98
[2022-09-14 07:29] LABS: Glucose, Whole Blood 106 mg/dL (60-115)
[2022-09-14] MEDS: HaloperidoL 5 MG TABLET PO ×2 (08:56→21:05)
[2022-09-14] MEDS: FLUoxetine HCl 10 MG CAPSULE PO (08:56)
[2022-09-14] MEDS: Aspirin 81 MG TAB.CHEW PO (08:56)
[2022-09-14] MEDS: Finasteride 5 MG TABLET PO (08:56)
[2022-09-14] MEDS: Ferrous Sulfate 324 MG TABLET.DR PO (08:56)
[2022-09-14] MEDS: Atorvastatin Calcium 10 MG TABLET PO (08:56)
[2022-09-14 11:32] LABS: Glucose, Whole Blood 135 mg/dL (60-115)
--- NOTE | 2022-09-14 11:35 | MHC.CM.PN ---
THIS BOX FINISHER AND [employer] INTERPETER MET WITH PATIENT AND FORMER (LIBIA) PATIENT WAS ABLE TO TELL THSIS BOX FINISHER HIS NAME, , WHERE HE IS, WHO LIBIA IS, AND THE RELATIONSHIP PATIENT WANTS A NEW HCP WITH LIBIA ADDED. NEW FORM COMPLETED, SIGNED, UPLOADED INTO [employer], AND PLACED ON CHART PATIENT AND LIBIA HAVE COPIES. BOTH ARE AWARE THAT [facility] IN [place] IS ONLY FACILITY ABLE TO OFFER A BED.
[2022-09-14] MEDS: Enoxaparin Sodium 40 MG/0.4 ML SYRINGE SUBCUT (11:43)
--- NOTE | 2022-09-14 12:41 | MHC.CM.PN ---
PATIENT HAD INPATIENT PSYCHIATRIC ADMISSION LESS THAN 2 YEARS AGO. PASRR LEVEL ONE COMPLETED AND FAXED TO [facility] @ [phone]
--- NOTE | 2022-09-14 13:02 | MHC.CM.PN ---
ACCORDING TO PATIENT AND FORMER , HE IS ON CPAP AT NIGHT AT HOME. MD MADE AWARE
[2022-09-14] MEDS: Docusate Sodium 100 MG CAPSULE PO ×2 (13:24→21:05)
[2022-09-14] MEDS: polyethylene glycoL 3350 17 GM POWD.PACK PO (13:24)
[2022-09-14 15:27] VITALS: BP 143/68; PULSE 73; RESP 18; TEMP 36.4; O2SAT 97
[2022-09-14 16:09] LABS: Glucose, Whole Blood 120 mg/dL (60-115)
--- NOTE | 2022-09-14 16:37 | HO.PM.IMPN ---
Subjective Subjective Date of Service: 09/15/22 Interval History: Seen in f/u for acute oseomylitis Review of Systems Interval history, no new issues, vital stable Physical Exam Vital Signs: Vital Signs: Last Vital Signs Temp 97.5 F 09/14/22 15:27 Pulse 73 09/14/22 15:27 Resp 18 09/14/22 15:27 BP 143/68 H 09/14/22 15:27 Pulse Ox 97 09/14/22 15:27 O2 Del Method Room Air 09/14/22 15:27 BMI result Body Mass Index 28.3 Appearance: seeems awake ,alert cvs: rrr, [id number] . res: clear to auscultation ,no rhonchii or wheezing abd: no rebound or guarding ,nt, bs present. ext pulses present , no cyanosis .Interval history, no new issues, vital stable neuro: axo3 , nonfocal. Objective Data Active Medications Acetaminophen (Acetaminophen 325 Mg Tablet) 650 mg PO Q6H PRN PRN Reason: Pain, Mild (Pain Scale 1-3) Last Admin: 09/12/22 19:22 Dose: 650 mg Documented By: TATYANA Aspirin (Aspirin 81 Mg Tab.Chew) 81 mg PO DAILY [facility] Last Admin: 09/14/22 08:56 Dose: 81 mg Documented By: JUNI-JOSELIN Atorvastatin Calcium (Atorvastatin Calcium 10 Mg Tablet) 10 mg PO DAILY [facility] Last Admin: 09/14/22 08:56 Dose: 10 mg Documented By: JUNI-JOSELIN Docusate Sodium (Docusate Sodium 100 Mg Capsule) 100 mg PO DAILY PRN PRN Reason: Constipation Last Admin: 09/08/22 10:29 Dose: 100 mg Documented By: PATRICIO Docusate Sodium (Docusate Sodium 100 Mg Capsule) 100 mg PO BID [facility] Last Admin: 09/14/22 13:24 Dose: 100 mg Documented By: JUNI-JOSELIN Enoxaparin Sodium (Enoxaparin Sodium 40 Mg/0.4 Ml Syringe) 40 mg SUBCUT Q24H [facility] Last Admin: 09/14/22 11:43 Dose: 40 mg Documented By: JUNI-JOSELIN Ergocalciferol (Ergocalciferol (Vitamin D2) 1,250 Mcg Capsule) 1,250 mcg PO TU@0900 [facility] Last Admin: 09/13/22 12:40 Dose: 1,250 mcg Documented By: DABMayuri Ferrous Sulfate (Ferrous Sulfate 324 Mg Tablet.) 324 mg PO DAILY [facility] Last Admin: 09/14/22 08:56 Dose: 324 mg Documented By: JUNI-SOFTERRA Finasteride (Finasteride 5 Mg Tablet) 5 mg PO DAILY [facility] Last Admin: 09/14/22 08:56 Dose: 5 mg Documented By: JUNI-JOSELIN Fluoxetine HCl (Fluoxetine Hcl 10 Mg Capsule) 10 mg PO DAILY [facility] Last Admin: 09/14/22 08:56 Dose: 10 mg Documented By: JUNI-JOSELIN Glucose (Glucose Gel 15 Gm Gel..Gram.) 15 gm PO Q15M PRN; Protocol PRN Reason: per Hypoglycemia Standing Ord. Haloperidol (Haloperidol 5 Mg Tablet) 5 mg PO BID [facility] Last Admin: 09/14/22 08:56 Dose: 5 mg Documented By: JUNI-JOSELIN Hydroxyzine HCl (Hydroxyzine Hcl 25 Mg Tablet) 25 mg PO BID PRN PRN Reason: Anxiety Dextrose (D10) 250 mls @ 750 mls/hr IV Q15M PRN; Protocol PRN Reason: per Hypoglycemia Standing Ord. Cefazolin Sodium/Dextrose (Ancef) 2 gm in 50 mls @ 100 mls/hr IV Q8H [facility] Last Infusion: 09/14/22 14:02 Dose: 0 mls/hr Documented By: JUNI-JOSELIN Insulin Human Lispro (Insulin Lispro 100 Unit/Ml 3 Ml Vial) 0 unit SUBCUT QIDACHS [facility]; Protocol Last Admin: 09/14/22 16:15 Dose: Not Given Documented By: JUNI-SANGEETAFA Non-Admin Reason: See Note (Dulaglutide [ Trulicity] 1.5 Mg/0. 5 Ml Pen Injector) 1.5 mg SUBCUT We@1200 [facility] Last Admin: 09/14/22 12:06 Dose: 1.5 mg Documented By: JUNI-JOSELIN Ondansetron HCl (Ondansetron Hcl 4 Mg/2 Ml Vial) 4 mg IVPUSH Q8H PRN PRN Reason: Nausea and Vomiting Pharmacy Consult (Consult Rx Perform Med Rec) 1 each MISCELLANE ONCE PRN PRN Reason: Consult order Polyethylene Glycol (Polyethylene Glycol 3350 17 Gm Powd.Pack) 17 gm PO DAILY [facility] Last Admin: 09/14/22 13:24 Dose: 17 gm Documented By: JUNI-SOFFA Sodium Chloride (0.9 % Sodium Chloride Flush 3 Ml Syringe) 3 ml IVFLUSH QSHIFT [facility] Last Admin: 09/14/22 13:52 Dose: Not Given Documented By: N-SOFFA Non-Admin Reason: See Note Trazodone HCl (Trazodone Hcl 100 Mg Tablet) 100 mg PO BEDTIME PRN PRN Reason: insomnia Last Admin: 09/12/22 20:38 Dose: 100 mg Documented By: ODRISM Labs 09/13/22 08:08 09/13/22 08:08 Labs: Laboratory Results - last 24 hr 09/13/22 09/13/22 09/14/22 17:46 19:16 07:05 POC Glucose 88 160 H 106 09/14/22 09/14/22 11:24 16:03 POC Glucose 135 H 120 H Microbiology Microbiology Results: Microbiology 09/08/22 14:40 Blood Culture - Final Blood - Venous No growth after 5 days. 09/08/22 14:40 Blood Culture - Final Blood - Venous No growth after 5 days. Assessment and Plan (1) Osteomyelitis: Status: Acute Plan 57-year-old male with a PMH significant for CKD stage 3, NEEMA, HLD,?BPH, bipolar disorder, diabetes, orthostatic hypotension, and hx of diabetic foot ulcer w/ osteomyelitis who presents to the ED for evaluation for generalized weakness, lightheadedness, dizziness, and fall this morning at 03:00 when he got up to use the bathroom. Xrays of right foot consistent with osteomyelitis. Pt will be admitted to the hospital for treatment and further evaluation of osteomyelitis of the right foot. Sepsis due to diabetic foot ulcer , acute Osteomyelitis of 2nd metatarsal of right foot with elevated ESR, CRP, positive x-ray evidence Is being followed by [facility] (Dr. Otero) with debridment as needed. Blood cultures 09/04 and 09/05 Staph Aureus, repeat Blood culture 09/08 negative x 48s Initially was on Zosyn and Vanco. Changed to Kefzol on 09/05, then started on Levaquin 09/10 based on below sensitivity ID to make final recommendation, will likely need 4 to 6 weeks. Picc line requested for today S aureus M.I.C. RX --------- --- Clindamycin >=8 R Erythromycin >=8 R Levofloxacin <=0.12 S Oxacillin 0.5 S Penicillin-G >=0.5 R Tetracycline <=1 S Trimethoprim/Sulfamethoxazole <=10 S VANESSA and CKD 3--Creatine now within baseline <1 Chronic Orthostatic hypotension, BP within normal BP ok so stopped Midodrine BPH continue finasteride Non insulin-dependent diabetes Stable blood sugar, continue SSI, and diabetic diet, Trulicity is non formulary HLD Continue home meds Mood disorder Continue Haldol , trazodone and hydroxyzine Full Code Patient need continued inpatient hospitalization for IV antibiotic treatment for bacteremia and right foot ulcer. Discussed with HCP Maya who wants patient to go [facility] at discharge Time Spent With Patient Time: Total time managing care of this patient today ____ minutes. Quality Stroke Does the patient have a stroke diagnosis?: No VTE Prior VTE?: No VTE Risk Level:: Medical - moderate - high VTE Device Contraindication: Treatment Not Indicated VTE Drug Contraindication: N/A - Med Ordered
[2022-09-14 19:35] VITALS: BP 146/70; PULSE 73; RESP 18; TEMP 36.4; O2SAT 98
[2022-09-14 20:54] LABS: Glucose, Whole Blood 141 mg/dL (60-115)
[2022-09-14] MEDS: traZODone HCL 100 MG TABLET PO (21:05)
[2022-09-14] MEDS: hydrOXYzine HCL 25 MG TABLET PO (21:05)
[2022-09-14] MEDS: 0.9 % Sodium Chloride Flush 3 ML SYRINGE IVFLUSH (21:05)
[2022-09-15 04:00] VITALS: BP 118/59; PULSE 72; RESP 16; TEMP 36.2; O2SAT 96
[2022-09-15] MEDS: ceFAZolin Sodium/Dextrose,Iso 2 GM/50 ML PIGGYBACK IV ×3 (05:35→21:52)
--- NOTE | 2022-09-15 05:43 | PC.NURSE ---
this nurse tried to give the antibiotic, noticed that chunk of blood on the bed surrounding the right upper arm. immediately pressed and call for help. lump room supervisor and other nurses help for the situation. pulled out the PICC line completely 35cm. measured by this nurse with supervision of lump room supervisor KATI, stopped bleeding, pressed with 4x4 gauze and wrapped. Kati inserted new IV on left hand dorsal. given antibiotic. dr Alcazar notified. Camera in place will monitor.
[2022-09-15 06:35] VITALS: BP 111/63; PULSE 73
[2022-09-15 07:34] VITALS: BP 133/64; PULSE 71; RESP 18; TEMP 36.6; O2SAT 95
[2022-09-15 07:47] LABS: Glucose, Whole Blood 91 mg/dL (60-115)
[2022-09-15] MEDS: polyethylene glycoL 3350 17 GM POWD.PACK PO (07:49)
[2022-09-15] MEDS: Aspirin 81 MG TAB.CHEW PO (07:49)
[2022-09-15] MEDS: Docusate Sodium 100 MG CAPSULE PO ×2 (07:50→20:26)
[2022-09-15] MEDS: Finasteride 5 MG TABLET PO (07:50)
[2022-09-15] MEDS: Ferrous Sulfate 324 MG TABLET.DR PO (07:50)
[2022-09-15] MEDS: HaloperidoL 5 MG TABLET PO ×2 (07:50→20:26)
[2022-09-15] MEDS: FLUoxetine HCl 10 MG CAPSULE PO (07:50)
[2022-09-15] MEDS: Atorvastatin Calcium 10 MG TABLET PO (07:50)
[2022-09-15] MEDS: 0.9 % Sodium Chloride Flush 3 ML SYRINGE IVFLUSH ×3 (07:53→20:26)
--- NOTE | 2022-09-15 10:36 | P.CDIM_ITS ---
PROVIDER RESPONSE TEXT: To clarify, the appropriate diagnosis supported by the clinical indicators: Other (explain): chronic wound QUERY TEXT: PHYSICIAN'S DOCUMENTATION REQUEST Date of Query: 09/15/2022 08:59 AM EDT Patient Name: Juan Jose Sherman Admit Date: 09/04/2022 Dear Ana Maria Timmons, A review of the medical record indicates additional documentation may be needed. Please review below and update the documentation accordingly. Clinical Indicators: Wound care notes 09/13 - wound length 2cm, width 2cm, necrotic, dark red surrounding tissue. Saline irrigant, Aliginate/gauze roll/wrap. Based on the above, could you please provide further information regarding the ulcer/wound: Pressure (decubitus) ulcer/injury right foot stage 2 Other Other (explain) Clinically unable to determine (explain) Thank you, Amie Mooney, CCS, CDIS Use of terms such as suspected, likely, concern for, or probable (associated with a specific diagnosi s that is being evaluated, monitored, or treated as if it exists) are acceptable and can be coded in the inpatient se tting, when documented at the time of discharge. Please use your independent medical judgment in providing your response. THIS QUERY IS PART OF THE PERMANENT MEDICAL RECORD
[2022-09-15 11:21] LABS: Glucose, Whole Blood 131 mg/dL (60-115)
[2022-09-15] MEDS: Enoxaparin Sodium 40 MG/0.4 ML SYRINGE SUBCUT (11:29)
--- NOTE | 2022-09-15 13:25 | P.PNIM_ITS ---
Subjective Subjective Date of Service: 09/16/22 Interval History: Seen in f/u for acute oseomylitis Review of Systems Interval history, no new issues, vital stable Physical Exam Vital Signs: Vital Signs: Last Vital Signs Temp 97.8 F 09/15/22 07:34 Pulse 71 09/15/22 07:34 Resp 18 09/15/22 07:34 BP 133/64 09/15/22 07:34 Pulse Ox 95 09/15/22 07:34 O2 Del Method Room Air 09/15/22 07:34 BMI result Body Mass Index 28.3 Appearance: seeems awake ,alert cvs: rrr, [id number] . res: clear to auscultation ,no rhonchii or wheezing abd: no rebound or guarding ,nt, bs present. ext pulses present , no cyanosis .Interval history, no new issues, vital stable neuro: axo3 , nonfoca Objective Data Active Medications Acetaminophen (Acetaminophen 325 Mg Tablet) 650 mg PO Q6H PRN PRN Reason: Pain, Mild (Pain Scale 1-3) Last Admin: 09/12/22 19:22 Dose: 650 mg Documented By: TATYANA Aspirin (Aspirin 81 Mg Tab.Chew) 81 mg PO DAILY [facility] Last Admin: 09/15/22 07:49 Dose: 81 mg Documented By: VIRGINIA Atorvastatin Calcium (Atorvastatin Calcium 10 Mg Tablet) 10 mg PO DAILY [facility] Last Admin: 09/15/22 07:50 Dose: 10 mg Documented By: VIRGINIA Docusate Sodium (Docusate Sodium 100 Mg Capsule) 100 mg PO DAILY PRN PRN Reason: Constipation Last Admin: 09/08/22 10:29 Dose: 100 mg Documented By: PATRICIO Docusate Sodium (Docusate Sodium 100 Mg Capsule) 100 mg PO BID [facility] Last Admin: 09/15/22 07:50 Dose: 100 mg Documented By: VIRGINIA Enoxaparin Sodium (Enoxaparin Sodium 40 Mg/0.4 Ml Syringe) 40 mg SUBCUT Q24H [facility] Last Admin: 09/15/22 11:29 Dose: 40 mg Documented By: VIRGINIA Ergocalciferol (Ergocalciferol (Vitamin D2) 1,250 Mcg Capsule) 1,250 mcg PO TU@0900 [facility] Last Admin: 09/13/22 12:40 Dose: 1,250 mcg Documented By: ROWAN Ferrous Sulfate (Ferrous Sulfate 324 Mg Tablet.) 324 mg PO DAILY [facility] Last Admin: 09/15/22 07:50 Dose: 324 mg Documented By: VIRGINIA Finasteride (Finasteride 5 Mg Tablet) 5 mg PO DAILY [facility] Last Admin: 09/15/22 07:50 Dose: 5 mg Documented By: VIRGINIA Fluoxetine HCl (Fluoxetine Hcl 10 Mg Capsule) 10 mg PO DAILY [facility] Last Admin: 09/15/22 07:50 Dose: 10 mg Documented By: VIRGINIA Glucose (Glucose Gel 15 Gm Gel..Gram.) 15 gm PO Q15M PRN; Protocol PRN Reason: per Hypoglycemia Standing Ord. Haloperidol (Haloperidol 5 Mg Tablet) 5 mg PO BID [facility] Last Admin: 09/15/22 07:50 Dose: 5 mg Documented By: VIRGINIA Hydroxyzine HCl (Hydroxyzine Hcl 25 Mg Tablet) 25 mg PO BID PRN PRN Reason: Anxiety Last Admin: 09/14/22 21:05 Dose: 25 mg Documented By: REFUGIO Dextrose (D10) 250 mls @ 750 mls/hr IV Q15M PRN; Protocol PRN Reason: per Hypoglycemia Standing Ord. Cefazolin Sodium/Dextrose (Ancef) 2 gm in 50 mls @ 100 mls/hr IV Q8H [facility] Last Infusion: 09/15/22 06:05 Dose: 0 mls/hr Documented By: REFUGIO Insulin Human Lispro (Insulin Lispro 100 Unit/Ml 3 Ml Vial) 0 unit SUBCUT QIDACHS [facility]; Protocol Last Admin: 09/15/22 11:24 Dose: Not Given Documented By: VIRGINIA Non-Admin Reason: No Insulin Coverage (Dulaglutide [ Trulicity] 1.5 Mg/0. 5 Ml Pen Injector) 1.5 mg SUBCUT We@1200 [facility] Last Admin: 09/14/22 12:06 Dose: 1.5 mg Documented By: JUNI-SOFFA Ondansetron HCl (Ondansetron Hcl 4 Mg/2 Ml Vial) 4 mg IVPUSH Q8H PRN PRN Reason: Nausea and Vomiting Pharmacy Consult (Consult Rx Perform Med Rec) 1 each MISCELLANE ONCE PRN PRN Reason: Consult order Polyethylene Glycol (Polyethylene Glycol 3350 17 Gm Powd.Pack) 17 gm PO DAILY [facility] Last Admin: 09/15/22 07:49 Dose: 17 gm Documented By: VIRGINIA Sodium Chloride (0.9 % Sodium Chloride Flush 3 Ml Syringe) 3 ml IVFLUSH QSHIFT [facility] Last Admin: 09/15/22 07:53 Dose: 3 ml Documented By: VIRGINIA Trazodone HCl (Trazodone Hcl 100 Mg Tablet) 100 mg PO BEDTIME PRN PRN Reason: insomnia Last Admin: 09/14/22 21:05 Dose: 100 mg Documented By: REFUGIO Labs 09/13/22 08:08 09/13/22 08:08 Labs: Laboratory Results - last 24 hr 09/14/22 09/14/22 09/15/22 16:03 19:38 07:34 POC Glucose 120 H 141 H 91 09/15/22 11:17 POC Glucose 131 H Assessment and Plan (1) Osteomyelitis: Status: Acute Plan 57-year-old male with a PMH significant for CKD stage 3, NEEMA, HLD,?BPH, bipolar disorder, diabetes, orthostatic hypotension, and hx of diabetic foot ulcer w/ osteomyelitis who presents to the ED for evaluation for generalized weakness, lightheadedness, dizziness, and fall this morning at 03:00 when he got up to use the bathroom. Xrays of right foot consistent with osteomyelitis. Pt will be admitted to the hospital for treatment and further evaluation of osteomyelitis of the right foot. Sepsis due to diabetic? foot ulcer , acute Osteomyelitis of 2nd metatarsal of right foot with elevated ESR, CRP, positive x-ray evidence Is being followed by [facility] (Dr. Otero) with debridment as needed. Blood cultures 09/04 and 09/05 Staph Aureus, repeat Blood culture 09/08 negative x 48s Initially was on Zosyn and Vanco. Changed to Kefzol on 09/05, then started on Levaquin 09/10 based on below sensitivity ID to make final recommendation, will likely need 4 to 6 weeks. Picc line patient pullled? vs came out last night ?S aureus? M.I.C.? ? RX ? --------- ---? Clindamycin? >=8? R ? Erythromycin ? >=8? R ? Levofloxacin ? <=0.12?S? Oxacillin? 0.5 ?S? Penicillin-G ? >=0.5? ? ? R ? Tetracycline ? <=1 ?S? Trimethoprim/Sulfamethoxazole? <=10?S VANESSA and CKD 3--Creatine now within baseline <1 Chronic Orthostatic hypotension, BP within normal BP ok so stopped Midodrine BPH continue finasteride Non insulin-dependent diabetes Stable blood sugar, continue SSI, and diabetic diet, Trulicity is non formulary HLD Continue home meds Mood disorder Continue Haldol , trazodone and hydroxyzine Full Code Patient need continued inpatient hospitalization for IV antibiotic? treatment for bacteremia and right foot ulcer. Discussed with HCP Maya who wants patient to go STR at discharge-need picc line . Time Spent With Patient Time: Total time managing care of this patient today ____ minutes. Quality Stroke Does the patient have a stroke diagnosis?: No VTE Prior VTE?: No VTE Risk Level:: Medical - moderate - high VTE Device Contraindication: Treatment Not Indicated VTE Drug Contraindication: N/A - Med Ordered
--- NOTE | 2022-09-15 13:59 | MHC.CM.PN ---
Addendum entered by Keila Guillory 09/15/22 16:25: CM CALLED PTS S/O, LIBIA, TO INFORM HER OF PTS DC TIME SHE REPORTS BEING WORRIED ABOUT PTS MEDICAL CONDITION CM OFFERED TO HAVE RN CALL, SHE CHANGED SUBJECT SHE THEN STATES SHE DOES NOT WANT PT TO GO ALL THE WAY TO [place] BECAUSE SHE DOES NOT DRIVE CM INFORMED HER THERE WERE NO OTHER SNFS OFFERING A BED SHE IS AWARE TRANSPORT WITH [facility] HAS BEEN ARRANGED FOR 1700 HOURS Addendum entered by Razia Sullivan RN 09/15/22 15:02: PLAN IS TRANSPORT TO [facility] TODAY RN,UNIT, AND PATIENT AWARE OF PLAN. Original Note: [facility] LETTER UPLOADED INTO [facility] COPY ALSO PLACED IN CHART
[2022-09-15 16:09] LABS: Glucose, Whole Blood 108 mg/dL (60-115)
[2022-09-15 19:50] VITALS: BP 132/72; PULSE 76; RESP 18; TEMP 36.3; O2SAT 100
[2022-09-15 20:56] LABS: Glucose, Whole Blood 119 mg/dL (60-115)
[2022-09-16 03:16] VITALS: BP 137/65; PULSE 71; RESP 15; TEMP 36; O2SAT 96
[2022-09-16] MEDS: ceFAZolin Sodium/Dextrose,Iso 2 GM/50 ML PIGGYBACK IV ×2 (05:40→13:43)
[2022-09-16 07:22] VITALS: BP 135/73; PULSE 73; RESP 18; TEMP 36; O2SAT 96
[2022-09-16 07:41] LABS: Glucose, Whole Blood 98 mg/dL (60-115)
[2022-09-16] MEDS: FLUoxetine HCl 10 MG CAPSULE PO (08:45)
[2022-09-16] MEDS: Ferrous Sulfate 324 MG TABLET.DR PO (08:45)
[2022-09-16] MEDS: HaloperidoL 5 MG TABLET PO (08:45)
[2022-09-16] MEDS: Finasteride 5 MG TABLET PO (08:46)
[2022-09-16] MEDS: Atorvastatin Calcium 10 MG TABLET PO (08:46)
[2022-09-16] MEDS: Docusate Sodium 100 MG CAPSULE PO (08:46)
[2022-09-16] MEDS: polyethylene glycoL 3350 17 GM POWD.PACK PO (09:40)
[2022-09-16] MEDS: 0.9 % Sodium Chloride Flush 3 ML SYRINGE IVFLUSH (09:41)
[2022-09-16 12:27] LABS: Glucose, Whole Blood 118 mg/dL (60-115)
[2022-09-16 12:32] VITALS: BP 125/64; PULSE 81; RESP 18; TEMP 36; O2SAT 100
--- NOTE | 2022-09-16 13:49 | PM.DS ---
DS: Providers Provider Date of Service: 09/16/22 Date of admission: 09/04/22 12:15 Date of discharge: 09/16/22 Primary care physician: Xochilt Singh MD Consults: 09/04/22 12:17 Consult to General Surgery Routine Consulting Provider: [facility] General Surgeons Reason for consultation: Osteomyelitis of right foot 09/04/22 12:23 Consult to Infectious Diseases Routine Consulting Provider: [facility] Infectious Disease Reason for consultation: Osteomyelitis of right foot DS: Diagnosis Discharge Diagnosis (1) Osteomyelitis: Status: Acute DS: Summary Hospital Course Hospital Course: 57-year-old male with a PMH significant for CKD stage 3, NEEMA, HLD,?BPH, bipolar disorder, diabetes, orthostatic hypotension, and hx of diabetic foot ulcer w/ osteomyelitis who presents to the ED for generalized weakness, lightheadedness, dizziness, and fall this morning at 03:00 when he got up to use the bathroom. Also experienced fever and chills. Pt [place]ian-speaking only; pre sales network engineer services utilized.?Pt denies hitting head or having pain from fall.Pt has a chronic open diabetic foot ulcer on the plantar surface of his right foot since at least January 2021, followed by wound care clinic. Last visit last week when they performed a treatment with synthetic skin. Patient denies any foot or leg pain, but notes wound has been bleeding some lately, though he was unclear when he first noticed it.? Patient denies all other symptoms:? No nausea, vomiting, abdominal pain.? Denies chest pain/pressure, palpitations.? No shortness of breath.? Of note, patient was recently hospitalized for orthostatic hypertension and was started on midodrine. Pt says he has been doing well with the medication with no lightheadedness or dizziness until this morning. In the ED patient was febrile at 102.6 rectally. Lbs were significant for leukocytosis of 17.2, stable H&H of 12.7/37.9, ESR 46, elevated BUN of 27, elevated creatinine 1.97 (above baseline of 1.40), renal glucose 187, lactic acid 3.0, total bilirubin 2.2, C reactive protein of 14.69. CXR showed no acute evidence of cardiopulmonary disease.? X-ray of right foot showed osteolytic changes involving the head of the 2nd metatarsal surrounding soft tissue swelling concerning for osteomyelitis. CT?of head: No evidence of intracranial space-occupying mass, bleed or infarct, no skull fracture. EKG demonstrated normal sinus rhythm without evidence of ST elevation or depression. Pt was treated with IVF, Zosyn, and vanco. Pt will be admitted to the hospital for treatment and further evaluation of osteomyelitis of the right foot. Hospital course: Patient was admitted with diabetic foot ulcer found to have acute osteomyelitis of 2nd metatarsal with elevated ESR and CRP: Patient was started on IV antibiotics Vanco and Zosyn, blood cultures sent, seen by surgery: Blood culture on?09/04 and 09/05 Staph Aureus, repeat Blood culture 09/08 negative : Subsequently patient seems to be feeling better no fevers, has mild leukocytosis. Surgery did debridement. Discussed with infectious disease: Final culture and patient reviewed: Recommended to use Kefzol for above-last date will be 10/18/22. Follow-up with wound care out patiently, currently continue current dressing. Patient has Peters please try to give voiding trial in 24-48 hour in rehab. Consider urology evaluation if needed. plan: Please complete the course of antibiotics kefzol (end date 10/18/22.), consider monitor CBC, BMP, CRP, ESR LFTs Q weekly while on antibiotics. Follow-up with wound care out patiently, currently continue current dressing. Patient has Peters please try to give voiding trial in 24-48 hour in rehab. Consider urology evaluation if needed. Time Spent with Patient Time attestation: Total time managing care of this patient today ____ minutes. Discharge coordination time: Greater than 30 minutes Quality: Safe Use of Opioids Does Pt have an Active Cancer Diagnosis on the Problem List?: No Quality: Stroke Does the patient have a stroke diagnosis?: No Physical Exam Vital Signs: Vital Signs: Last Vital Signs Temp 96.8 F 09/16/22 12:32 Pulse 81 09/16/22 12:32 Resp 18 09/16/22 12:32 BP 125/64 09/16/22 12:32 Pulse Ox 100 09/16/22 12:32 O2 Del Method Room Air 09/16/22 12:32 BMI result Body Mass Index 28.3 Appearance: seeems awake ,alert cvs: rrr, [id number] . res: clear to auscultation ,no rhonchii or wheezing abd: no rebound or guarding ,nt, bs present. ext pulses present , no cyanosis,Right foot dressing in place no drainage noted neuro: axo3 , nonfoca DS: Data Data Completed and Pending Completed studies during hospitalization [Text1]: Procedures Insertion of Infusion Device into Right External Jugular Vein, Percutaneous Approach (05/11/21) Insertion of Tunneled Vascular Access Device into Chest Subcutaneous Tissue and Fascia, Percutaneous Approach (05/11/21) Labs on day of discharge: Laboratory Results - last 24 hr 09/15/22 09/15/22 09/16/22 16:05 20:52 07:20 POC Glucose 108 119 H 98 09/16/22 12:17 POC Glucose 118 H Imaging Chest x-ray: Radiologist's impression: ITS Impressions Chest X-Ray 09/04/22 10:25 IMPRESSION: No radiographic evidence of acute cardiopulmonary disease. Foot X-Ray 09/04/22 10:25 IMPRESSION: * Redemonstration of osteolytic changes involving the head of the second metatarsal with surrounding soft tissue swelling concerning for osteomyelitis. * Hallux valgus. * Underlying degenerative osteoarthritis. * Inferior calcaneal spur. Head CT 09/04/22 10:30 IMPRESSION: No CT evidence of intracranial space-occupying mass, bleed or infarct. No skull fracture. PICC Line Insertion 09/13/22 17:36 IMPRESSION: Right upper extremity PICC line placement. Guidance Ultrasound 09/13/22 17:38 IMPRESSION: Right upper extremity PICC line placement. Discharge Plan Discharge Anticipated Discharge Date/Time: 09/15/22 16:34 Patient Disposition: er SNF Discharge Diagnosis: Sepsis secondary to acute Osteomyelitis . Referrals: [facility] [Outside] - 1 Week ([phone]) Xochilt Mckoy MD [Primary Care Provider] - 1 Week (call office to schedule follow up appoinment) Discharge Medications: New cefazolin in dextrose (iso-os) 2 gram/50 mL Piggyback 2 g IV Q8H Qty: 1 0RF Rx Instructions: continue until 10/18 docusate sodium 100 mg Capsule 100 mg PO BID PRN (Reason: constipation) Qty: 30 0RF polyethylene glycol 3350 17 gram Powder In Packet 17 g PO DAILY PRN (Reason: constipation) Qty: 30 0RF Continued acetaminophen 500 mg tablet 1,000 mg PO Q6H PRN (Reason: fever or pain) 30 Days Qty: 240 2RF (DME) FreeStyle Test Strip See Rx Instructions .Route Qty: 150 0RF Rx Instructions: Use 4 test strip once a day (DME) wheelchair electric See Rx Instructions .Route .MEDSUPPLY Qty: 1 0RF Rx Instructions: As directed (DME) blood-glucose meter [FreeStyle Lite Meter] Kit See Rx Instructions .Route Qty: 1 0RF Rx Instructions: As directed aspirin 81 mg tablet,chewable 81 mg PO DAILY Qty: 30 0RF haloperidol 5 mg Tablet 5 mg PO BID Qty: 60 0RF trazodone 100 mg tablet 100 mg PO BEDTIME PRN (Reason: insomnia) ferrous sulfate [FeroSul] 325 mg (65 mg iron) tablet 325 mg PO DAILY fluoxetine 10 mg capsule 10 mg PO DAILY hydroxyzine pamoate 25 mg capsule 25 mg PO BID PRN (Reason: Anxiety) Trulicity 1.5 mg/0.5 mL pen injector 1.5 mg subcut MO@0900 finasteride 5 mg tablet 5 mg PO DAILY ergocalciferol (vitamin D2) [Vitamin D2] 1,250 mcg (50,000 unit) capsule 1,250 mcg PO TU@0900 atorvastatin 10 mg tablet 10 mg PO DAILY (DME) blood pressure test kit-medium Kit See Rx Instructions .Route Qty: 1 0RF Rx Instructions: As directed Held midodrine 2.5 mg Tablet 2.5 mg PO TID Qty: 90 0RF Hold Instructions: Resume on 10/12/22. Discharge Orders: Discharge Order (Routine); Ordered 09/16/22 Ordered By: Ana Maria Timmons Diet: Advance to usual diet Activity on Discharge: As tolerated Stand Alone Forms: Patient Portal Discharge page Care Plan Goals: Patient was admitted with diabetic foot ulcer found to have acute osteomyelitis of 2nd metatarsal with elevated ESR and CRP: Patient was started on IV antibiotics Vanco and Zosyn, blood cultures sent, seen by surgery: Blood culture on?09/04 and 09/05 Staph Aureus, repeat Blood culture 09/08 negative : Subsequently patient seems to be feeling better no fevers, has mild leukocytosis. Surgery did debridement. Discussed with infectious disease: Final culture and patient reviewed: Recommended to use Kefzol for above-last date will be 10/18/22. Follow-up with wound care out patiently, currently continue current dressing. Patient has Peters please try to give voiding trial in 24-48 hour in rehab. Consider urology evaluation if needed. Health Concerns: As above. Plan of Treatment: As above. Assessment: As above. Patient Instructions: Osteomyelitis (DC), Bacteremia (GEN)
[2022-09-16 15:21] VITALS: BP 132/63; PULSE 77; RESP 16; TEMP 36.2; O2SAT 100
--- NOTE | 2022-09-16 16:34 | PC.NURSE ---
EMS here at approx 3:45pm to take patient to [facility]. Patient now has PICC line for halfway antibiotics. This nurse brought relocation associate in room to explain to patient that he is being discharged to [facility]. Patient refused to sign discharge paperwork, telling relocation associate that he does not want to go. Ex- (HCP) notified yesterday via patients telephone that he would be discharging on 09/16/22 after getting new PICC line inserted. Patient discharged at aprox 4:15pm.
== END 2022-09-16 16:40 | disposition skilled nursing facility (03) | DRG 710 ==
LOC: HO.ED 11:12 → HO.EDOVER 12:25 → HO.IMC 12:49 → HO.S3 09-10 19:22
PROVIDERS: Hospitalist; Internal Medicine; Physician Assistant; Student in an Organized Health Care Education/Training Program; Admitting Provider Student in an Organized Health Care Education/Training Program; Emergency Provider Emergency Medicine; PCP Internal Medicine; Visit Provider Internal Medicine
DX: A41.9 Sepsis, unspecified organism (principal); N17.9 Acute kidney failure, unspecified; E11.22 Type 2 diabetes mellitus with diabetic chronic kidney disease; E11.42 Type 2 diabetes mellitus with diabetic polyneuropathy; M86.171 Other acute osteomyelitis, right ankle and foot; L97.419 Non-pressure chronic ulcer of right heel and midfoot with unspecified severity; E11.621 Type 2 diabetes mellitus with foot ulcer; E11.69 Type 2 diabetes mellitus with other specified complication; F31.9 Bipolar disorder, unspecified; I95.1 Orthostatic hypotension; N18.32 Chronic kidney disease, stage 3b; B95.61 Methicillin susceptible Staphylococcus aureus infection as the cause of diseases classified elsewhere; N40.0 Benign prostatic hyperplasia without lower urinary tract symptoms; G47.33 Obstructive sleep apnea (adult) (pediatric); Z20.822 Contact with and (suspected) exposure to COVID-19; Z98.84 Bariatric surgery status; Z88.2 Allergy status to sulfonamides; Z79.82 Long term (current) use of aspirin; Z79.899 Other long term (current) drug therapy
CPT/HCPCS: 0241U; 36415; 36573; 70450; 71045; 73630; 76937; 80048; 80076; 80202; 81001; 82550; 82565; 82947; 83605; 83735; 83880; 84484; 85025; 85027; 85610; 85652; 86140; 87040; 87077; 87147; 87186; 87205; 93005; 93306; 99285; C1751; C1758; J0690; J1650; J1956; J2543; J3370; J3371; Q9957

== ENCOUNTER 2022-09-23 18:25 | Emergency (ER) | payer OTHER, SELFPAY ==
[2022-09-23 18:39] VITALS: BP 138/75; PULSE 81; O2SAT 98
[2022-09-23 18:42] VITALS: BP 139/90; PULSE 89; RESP 16; TEMP 37.2; O2SAT 97; BMI 25.4
--- NOTE | 2022-09-23 18:50 | MHC.EDTECH ---
PT CAME IN VIA EMS ,PT WAS CHANGE INTO HOSPITAL ATTIRE ,PT BLOOD SUGAR TAKEN ,,RN DARSHANA AWARE OF RESULT 213,PT HAS A WOUND ON THE BOTTOM OF RIGHT FOOT AND IS COVERED WITH A FOAM DRESSING .
[2022-09-23 18:58] LABS: Glucose, Whole Blood 217 mg/dL (60-115)
--- NOTE | 2022-09-23 19:06 | PC.NURSE ---
no nurse to nurse report recvd
[2022-09-23 19:54] VITALS: BP 137/68; PULSE 77; RESP 16; TEMP 36.1; O2SAT 98
--- NOTE | 2022-09-23 19:55 | MHC.EDTECH ---
2000 rounding done ,vitals sign taken ,pt sleeping .
--- NOTE | 2022-09-23 19:58 | PC.NURSE ---
oriented x4 pt states he has been unable to move his bowels in 5 days an has been having to be catheterized since he has been unable to void no apparent distress pt is slow to respond, but responses appropriate
[2022-09-23 20:01] VITALS: O2SAT 96
--- NOTE | 2022-09-23 20:19 | ECG_ITS ---
Test Reason : FAILURE TO TRIVE Blood Pressure : / mmHG Vent. Rate : 075 BPM Atrial Rate : 075 BPM P-R Int : 142 ms QRS Dur : 078 ms QT Int : 400 ms P-R-T Axes : 057 006 044 degrees QTc Int : 446 ms Normal sinus rhythm Normal ECG When compared with ECG of 04-SEP-2022 10:25, No significant change was found Referred By: Alexandra Angeles Electronically Signed By:Sharan Gonzales
[2022-09-23 20:58] LABS: MANUAL DIFF FLAG NO
[2022-09-23 20:59] LABS: Basophils Absolute Auto 0.1 X10*3/uL (0.0-0.2); Basophils Percent Auto 0.6 % (0-2); Eosinophils Absolute Auto 0.3 X10*3/uL (0.0-0.4); Eosinophils Percent Auto 2.4 % (0-4); Imm Gran Abs Auto 0.04 X10*3/uL (0.00-0.03); Imm Gran Pct Auto 0.3 % (0.0-0.4); Lymphocytes Absolute Auto 2.6 X10*3/uL (1.2-4.9); Lymphocytes Percent Auto 19.7 % (20-40); Mean Corpuscular HGB Conc 32.4 g/dl (31.0-36.0); Mean Corpuscular Hemoglobin 28.6 pg (27.0-33.0); Mean Corpuscular Volume 88.3 fL (80.0-98.0); Mean Platelet Volume 8.4 fL (9.4-12.4); Monocytes Absolute Auto 1.5 X10*3/uL (0.1-1.2); Monocytes Percent Auto 11.3 % (2-11); Neutrophils Absolute Auto 8.6 x10*3/uL (2.0-8.3); Neutrophils Percent Auto 65.7 % (45-73); Platelet Count 536 X10*3/uL (160-400); Red Blood Count 4.19 X10*6/uL (4.60-5.80); White Blood Count 13.1 X10*3/uL (4.8-10.8)
--- NOTE | 2022-09-23 20:59 | MHC.EDTECH ---
pt ekg done and was read by provider ,blood drawn and sent to lab .
--- NOTE | 2022-09-23 21:16 | ED_ITS ---
HPI - General Adult General Chief complaint: Failure to Thrive Stated complaint: FTT Time Seen by Provider: 09/23/22 20:59 Source: patient and EMS Mode of arrival: EMS Limitations: other (Cognitive delay) History of Present Illness HPI narrative: Patient comes to the emergency room via EMS from a detention facility. Seems that patient has had decreased p.o. intake. Also, the staff noted that the patient has not urinated in several hours, they attempted straight cathing him but they were unable to get any urine and blood came out. Patient denies any suprapubic pain. Of note, patient was admitted from September 04 through September 16 for bacteremia secondary to osteomyelitis. Currently, patient has a PICC line, taking cefazolin 2 g every 8 hours. Patient reports pain in the coccyx area. Related Data Home Medications Medication Instructions Recorded Confirmed atorvastatin 10 mg tablet 10 mg PO DAILY 03/23/22 09/04/22 ergocalciferol (vitamin D2) 1,250 1,250 mcg PO TU@0900 03/23/22 09/04/22 mcg (50,000 unit) capsule (Vitamin D2) dulaglutide 1.5 mg/0.5 mL 1.5 mg subcut MO@0900 08/18/22 09/04/22 subcutaneous pen injector (Trulicity) ferrous sulfate 325 mg (65 mg 325 mg PO DAILY 08/18/22 09/04/22 iron) tablet (FeroSul) hydroxyzine pamoate 25 mg capsule 25 mg PO BID PRN Anxiety 08/18/22 09/04/22 trazodone 100 mg tablet 100 mg PO BEDTIME PRN insomnia 08/18/22 09/04/22 finasteride 5 mg tablet 5 mg PO DAILY 09/04/22 09/04/22 Previous Rx's Medication Instructions Recorded haloperidol 5 mg tablet 5 mg PO BID #60 tabs 02/11/22 acetaminophen 500 mg tablet 1,000 mg PO Q6H PRN fever or pain 02/21/22 30 days #240 tabs blood sugar diagnostic (FreeStyle #150 ea 03/21/22 Test strips) blood pressure test kit-medium #1 ea 03/23/22 wheelchair electric #1 ea 04/02/22 midodrine 2.5 mg tablet 2.5 mg PO TID #90 tabs 08/21/22 aspirin 81 mg chewable tablet 81 mg PO DAILY #30 tabs 08/24/22 blood-glucose meter (FreeStyle #1 ea 08/24/22 Lite Meter kit) cefazolin 2 gram/50 mL in dextrose 2 g (50 mL) IV Q8H #1 ea 09/15/22 (iso-osmotic) intravenous piggyback docusate sodium 100 mg capsule 100 mg PO BID PRN constipation #30 09/15/22 caps polyethylene glycol 3350 17 gram 17 g PO DAILY PRN constipation #30 09/15/22 oral powder packet ea fluoxetine 10 mg capsule 10 mg PO DAILY #90 caps 09/20/22 tamsulosin 0.4 mg capsule 0.4 mg PO BEDTIME #30 caps 09/23/22 Allergies Allergy/AdvReac Type Severity Reaction Status Date / Time Sulfa (Sulfonamide Allergy Intermediate hives Verified 09/23/22 18:46 Antibiotics) [SULFA (SULFONAMIDE ANTIBIOTICS)] Review of Systems Review of Systems: Constitutional : No Weight loss, No Fever, No Chills, No Night Sweats, No Fatigue, No Malaise ENT/Mouth : No Hearing loss, No Ear Pain, No Nasal Congestion, No Sinus Pain, No Hoarseness, No sore throat, No Rhinorrhea, No Swallowing Difficulty Eyes: No Eye Pain, No Swelling, No Redness, No Foreign Body, No Discharge, No Vision Changes Cardiovascular : No Chest Pain, No SOB, No Dyspnea on Exertion, No Orthopnea, No Edema, No Palpitations Respiratory : No Cough, No Sputum, No Wheezing, No Smoke Exposure, No Dyspnea Gastrointestinal : No Nausea, No Vomiting, No Diarrhea, No Constipation, No abdominal Pain, No Hematochezia, No Melena Genitourinary : no irregular bleeding, No Dysuria, No Urinary Frequency, No H ematuria, No Urinary Incontinence, No Urgency, No Flank Pain, No Urinary Flow Changes, No Hesitancy Musculoskeletal : No joint pain, No Myalgias, No Joint Swelling Skin : No Skin Lesions, No rash, complaining of pain in the coccyx Neuro : No Weakness, No Numbness, No Paresthesias, No Loss of Consciousness, No Dizziness, No Headache Psych : No Anxiety/Panic, No Depression, No SI/HI/AH/VH, No Social Issues, Heme/Lymph: No Bruising, No Bleeding,No Lymphadenopathy Endocrine : No Polyuria, No Polydipsia, No Temperature Intolerance [facility] Past Medical History Medical History Anemia Anemia in chronic kidney disease Bacteremia CKD (chronic kidney disease) CKD (chronic kidney disease) stage 3, GFR 30-59 ml/min CKD stage G3b/A2, GFR 30-44 and albumin creatinine ratio 30-299 mg/g Diabetes type 2, uncontrolled Diabetic polyneuropathy associated with type 2 diabetes mellitus Dyslipidemia Foot osteomyelitis, right Foot ulcer Headache 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 deficiency Left knee pain Microalbuminuria Moderate non-proliferative diabetic retinopathy Morbid obesity NEEMA on CPAP Osteomyelitis PAD (peripheral artery disease) Patellofemoral arthritis of left knee 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 Brother No problems noted. Son No problems noted. Daughter In good health Maternal Grandmother DM (diabetes mellitus) Stroke Social History Social History Household Members: None Housing: Unknown / Unable to assess Unable to assess alcohol history related to: Unable to respond Alcohol intake: never Patient Tobacco Use Status: Never used Tobacco Smoked in Last 30 Days: No e-Cigarette/Vaping Use: Never Used Second Hand Smoke Exposure: No Use of substances other than those prescribed or required for medical reasons: No Substance Use Type: Marijuana Advance Directives: Yes Advance Directives on File: Yes Advance Directives Date on File: 09/19/22 service: No Current occupational status: disabled Sexual orientation: Did not discuss. Cognitive needs: No Hearing needs: No Vision needs: Yes Physical Exam ED Vital Signs: Vital Signs - 24 hr 09/23/22 18:42 09/23/22 19:54 09/23/22 20:01 Temperature 99.0 F 97.0 F Pulse Rate 89 77 Respiratory Rate 16 16 Blood Pressure 139/90 H 137/68 Pulse Oximetry 97 98 96 Oxygen Delivery Method Room Air Room Air Room Air 09/23/22 21:56 Temperature 97.9 F Pulse Rate 73 Respiratory Rate 16 Blood Pressure 158/77 H Pulse Oximetry 98 Oxygen Delivery Method Room Air BMI result Body Mass Index 25.4 Const Other: Appearance: Alert. Oriented x1, no acute distress, patient at baseline per EMS Eyes: Pupils equal, round and reactive to light. ENT: Pharynx normal. Neck: Normal inspection. Neck supple. No lymph nodes noted. No crepitus CVS: Normal heart rate and rhythm. Pulses normal. Normal S1 and S2 Respiratory: No respiratory distress. Breath sounds normal. No Wheezing. No rales Abdomen: Soft , the bladder is palpable, patient seems a bit uncomfortable on palpation. Skin: Skin warm and dry. Normal skin color. Normal skin turgor. Extremities: No lower extremity edema. No Lacerations. No Rash Neuro: Oriented X 3. No motor deficit. No sensory deficit. Moving all extremities. No slurred speech. CN 2 through 12 grossly intact Psych: calm, cooperative, normal affect Course Course Course Narrative: -patient's bladder is palpable on palpation in the suprapubic area, bladder scan shows approximately a L of urine in the bladder. -of patient's labs are Medical Decision Making Medical Decision Making MDM Narrative: -patient's white blood cell elevated, patient currently being treated for osteomyelitis, has a PICC line. No fever, no chills, the foot has a healing ulcer, no signs of purulence, cellulitis or worsening infection -patient likely did not want to eat because he was very uncomfortable secondary to urinary retention which he is unable to verbalize -1300 cc of urine were drained. Patient has now a Peters catheter, patient started on tamsulosin. -urinalysis does not show a UTI. Patient has a Peters catheter and ready to be discharged Differential Diagnosis Differential Diagnoses: The differential diagnosis associated with the presentation includes (UTI, urinary retention, viral syndrome) Lab Data 09/23/22 20:52 09/23/22 20:52 Labs: Lab Results 09/23/22 09/23/22 09/23/22 Range/Units 18:48 20:52 20:52 WBC 13.1 H (4.8-10.8) X10*3/uL RBC 4.19 L (4.60-5.80) X10*6/uL Hgb 12.0 L (14.0-18.0) g/dl Hct 37.0 L (42.0-52.0) % MCV 88.3 (80.0-98.0) fL MCH 28.6 (27.0-33.0) pg MCHC 32.4 (31.0-36.0) g/dl RDW 14.0 (11.0-16.0) % Plt Count 536 H (160-400) X10*3/uL MPV 8.4 L (9.4-12.4) fL Immature Gran % (Auto) 0.3 (0.0-0.4) % Neut % (Auto) 65.7 (45-73) % Lymph % (Auto) 19.7 L (20-40) % [place] % (Auto) 11.3 H (2-11) % Eos % (Auto) 2.4 (0-4) % Baso % (Auto) 0.6 (0-2) % Lymph # (Auto) 2.6 (1.2-4.9) X10*3/uL [place] # (Auto) 1.5 H (0.1-1.2) X10*3/uL Eos # (Auto) 0.3 (0.0-0.4) X10*3/uL Baso # (Auto) 0.1 (0.0-0.2) X10*3/uL Abs Immat Gran (auto) 0.04 H (0.00-0.03) X10*3/uL Absolute Neuts (auto) 8.6 H (2.0-8.3) x10*3/uL Absolute Nucleated RBC 0.000 (0.0-0.012) X10*3/uL Nucleated RBC % (auto) 0.0 (0.0-0.2) /100WBC Sodium 135 (135-145) mmol/L Potassium 4.8 (3.3-5.1) mmol/L Chloride 101 (96-108) mmol/L Carbon Dioxide 24 (22-29) mmol/L Anion Gap 15 (12-20) BUN 26 H (9-16) mg/dL Creatinine 1.18 (0.5-1.4) mg/dL Estim Creat Clear Calc 60.0 Estimated GFR > 60 POC Glucose 217 H (60-115) mg/dL Random Glucose 114 (60-115) mg/dL Calcium 8.6 (8.4-10.2) mg/dL Magnesium 2.2 (1.6-2.6) mg/dL Total Bilirubin 0.4 (0.0-1.0) mg/dL Direct Bilirubin 0.2 (0.0-0.5) mg/dL AST 34 (5-37) U/L ALT 13 (0-40) U/L Alkaline Phosphatase 95 (39-117) U/L Total Protein 7.1 (6.5-8.0) g/dL Albumin 3.0 L (3.5-5.0) g/dL Urine Color Urine Appearance Urine pH (5.0-9.0) Ur Specific Sellers (1.005-1.025) Urine Protein (Neg-Trace) mg/dL Urine Glucose (UA) (Negative) mg/dL Urine Ketones (Negative) mg/dL Urine Blood (Negative) Urine Nitrite (Negative) Ur Leukocyte Esterase (Negative) Urine RBC (0-2) /HPF Urine WBC (0-5) /HPF Ur Squamous Epith Cells (0-2) /HPF Urine Bacteria (None Seen) Hyaline Casts (0-2) /LPF 09/23/22 Range/Units 21:58 WBC (4.8-10.8) X10*3/uL RBC (4.60-5.80) X10*6/uL Hgb (14.0-18.0) g/dl Hct (42.0-52.0) % MCV (80.0-98.0) fL MCH (27.0-33.0) pg MCHC (31.0-36.0) g/dl RDW (11.0-16.0) % Plt Count (160-400) X10*3/uL MPV (9.4-12.4) fL Immature Gran % (Auto) (0.0-0.4) % Neut % (Auto) (45-73) % Lymph % (Auto) (20-40) % [place] % (Auto) (2-11) % Eos % (Auto) (0-4) % Baso % (Auto) (0-2) % Lymph # (Auto) (1.2-4.9) X10*3/uL [place] # (Auto) (0.1-1.2) X10*3/uL Eos # (Auto) (0.0-0.4) X10*3/uL Baso # (Auto) (0.0-0.2) X10*3/uL Abs Immat Gran (auto) (0.00-0.03) X10*3/uL Absolute Neuts (auto) (2.0-8.3) x10*3/uL Absolute Nucleated RBC (0.0-0.012) X10*3/uL Nucleated RBC % (auto) (0.0-0.2) /100WBC Sodium (135-145) mmol/L Potassium (3.3-5.1) mmol/L Chloride (96-108) mmol/L Carbon Dioxide (22-29) mmol/L Anion Gap (12-20) BUN (9-16) mg/dL Creatinine (0.5-1.4) mg/dL Estim Creat Clear Calc Estimated GFR POC Glucose (60-115) mg/dL Random Glucose (60-115) mg/dL Calcium (8.4-10.2) mg/dL Magnesium (1.6-2.6) mg/dL Total Bilirubin (0.0-1.0) mg/dL Direct Bilirubin (0.0-0.5) mg/dL AST (5-37) U/L ALT (0-40) U/L Alkaline Phosphatase (39-117) U/L Total Protein (6.5-8.0) g/dL Albumin (3.5-5.0) g/dL Urine Color Yellow Urine Appearance Clear Urine pH 5.5 (5.0-9.0) Ur Specific Sellers 1.020 (1.005-1.025) Urine Protein 300 (3+) H (Neg-Trace) mg/dL Urine Glucose (UA) Negative (Negative) mg/dL Urine Ketones Negative (Negative) mg/dL Urine Blood Moderate (2+) H (Negative) Urine Nitrite Negative (Negative) Ur Leukocyte Esterase Negative (Negative) Urine RBC 6-10 H (0-2) /HPF Urine WBC 0-5 (0-5) /HPF Ur Squamous Epith Cells 0-2 (0-2) /HPF Urine Bacteria None Seen (None Seen) Hyaline Casts 0-2 (0-2) /LPF Discharge Plan Discharge Clinical Impression: Acute urinary retention Patient Disposition: Home, Self-Care Instructions: Urinary Retention in Men (ED) Additional Instructions: You Peters catheter needs to be removed in 48 hours. You may come to emergency room or be seen by Urology for a catheter removal. Please follow-up with your primary care physician tomorrow. If you have any worsening or new symptoms, please return to the emergency room or call 911 Prescriptions: New tamsulosin 0.4 mg capsule 0.4 mg PO BEDTIME Qty: 30 0RF No Action acetaminophen 500 mg tablet 1,000 mg PO Q6H PRN (Reason: fever or pain) 30 Days Qty: 240 2RF (DME) FreeStyle Test Strip See Rx Instructions .Route Qty: 150 0RF Rx Instructions: Use 4 test strip once a day (DME) wheelchair electric See Rx Instructions .Route .MEDSUPPLY Qty: 1 0RF Rx Instructions: As directed (DME) blood-glucose meter [FreeStyle Lite Meter] Kit See Rx Instructions .Route Qty: 1 0RF Rx Instructions: As directed aspirin 81 mg tablet,chewable 81 mg PO DAILY Qty: 30 0RF fluoxetine 10 mg capsule 10 mg PO DAILY Qty: 90 3RF haloperidol 5 mg Tablet 5 mg PO BID Qty: 60 0RF trazodone 100 mg tablet 100 mg PO BEDTIME PRN (Reason: insomnia) ferrous sulfate [FeroSul] 325 mg (65 mg iron) tablet 325 mg PO DAILY hydroxyzine pamoate 25 mg capsule 25 mg PO BID PRN (Reason: Anxiety) Trulicity 1.5 mg/0.5 mL pen injector 1.5 mg subcut MO@0900 midodrine 2.5 mg Tablet 2.5 mg PO TID Qty: 90 0RF Hold Instructions: Resume on 10/12/22. finasteride 5 mg tablet 5 mg PO DAILY polyethylene glycol 3350 17 gram Powder In Packet 17 g PO DAILY PRN (Reason: constipation) Qty: 30 0RF docusate sodium 100 mg Capsule 100 mg PO BID PRN (Reason: constipation) Qty: 30 0RF cefazolin in dextrose (iso-os) 2 gram/50 mL Piggyback 2 g IV Q8H Qty: 1 0RF Rx Instructions: continue until 10/18 ergocalciferol (vitamin D2) [Vitamin D2] 1,250 mcg (50,000 unit) capsule 1,250 mcg PO TU@0900 atorvastatin 10 mg tablet 10 mg PO DAILY (DME) blood pressure test kit-medium Kit See Rx Instructions .Route Qty: 1 0RF Rx Instructions: As directed Referrals: Sherwin Singer MD [Physician] - 09/26/22
[2022-09-23 21:29] LABS: Alanine Aminotransferase 13 U/L (0-40); Alkaline Phosphatase 95 U/L (39-117); Anion Gap 15 (12-20); Aspartate Amino Transferase 34 U/L (5-37); Bilirubin Direct 0.2 mg/dL (0.0-0.5); Bilirubin Total 0.4 mg/dL (0.0-1.0); Blood Urea Nitrogen 26 mg/dL (9-16); Calcium 8.6 mg/dL (8.4-10.2); Carbon Dioxide 24 mmol/L (22-29); Chloride 101 mmol/L (96-108); Estimated Glomerular Filt Rate > 60; Glucose Random 114 mg/dL (60-115); Magnesium 2.2 mg/dL (1.6-2.6); Potassium 4.8 mmol/L (3.3-5.1); Sodium 135 mmol/L (135-145); Total Protein 7.1 g/dL (6.5-8.0)
[2022-09-23 21:56] VITALS: BP 158/77; PULSE 73; RESP 16; TEMP 36.6; O2SAT 98
[2022-09-23 22:06] LABS: Appearance Urine Clear; Color Urine Yellow; Glucose Urine UA Negative (Negative); Leukocyte Esterase Urine Negative (Negative); Nitrite Urine Negative (Negative); PH 5.5 (5.0-9.0); UMIC TRIGGER UACC YES; Urine Blood Moderate (2+) (Negative); Urine Ketones Negative (Negative); Urine Protein 300 (3+) mg/dL (Neg-Trace)
[2022-09-23 22:09] LABS: Bacteria Urine None Seen (None Seen); Hyaline Casts Urine 0-2 /LPF (0-2); Squamous Epithelial Cell Urine 0-2 /HPF (0-2); WBC Urine 0-5 /HPF (0-5)
--- NOTE | 2022-09-23 22:35 | PC.NURSE ---
pt sleeping no apparent distress respirations even and unlabored
[2022-09-23 22:37] VITALS: BP 164/68; PULSE 70; RESP 17; TEMP 36.9; O2SAT 98
--- NOTE | 2022-09-23 22:43 | MHC.EDTECH ---
Frank called @ [phone] for a BLS transfer back to facility,[facility] in [place],[facility] 30mins. RN aware
--- NOTE | 2022-09-23 23:32 | PC.NURSE ---
pt discharged with [facility] via stretcher back to snf vs assessed no apparent distress spencer cath to stay in place for the next two days
--- NOTE | 2022-09-23 23:36 | PC.NURSE ---
multiple attempts made to give nurse to nurse report no answer calls were made earlier to clarify when pt had cefazolin last but also no answer
== END 2022-09-23 23:33 | disposition home or self-care (01) ==
PROVIDERS: Physician Assistant; Emergency Provider Emergency Medicine; PCP Hospitalist
DX: R33.9 Retention of urine, unspecified (principal); R62.7 Adult failure to thrive; M86.9 Osteomyelitis, unspecified; R78.81 Bacteremia; M53.3 Sacrococcygeal disorders, not elsewhere classified; E11.22 Type 2 diabetes mellitus with diabetic chronic kidney disease; I12.9 Hypertensive chronic kidney disease with stage 1 through stage 4 chronic kidney disease, or unspecified chronic kidney disease; N18.32 Chronic kidney disease, stage 3b; E78.5 Hyperlipidemia, unspecified; Z79.2 Long term (current) use of antibiotics; Z79.02 Long term (current) use of antithrombotics/antiplatelets; Z79.82 Long term (current) use of aspirin; Z79.899 Other long term (current) drug therapy; Z79.4 Long term (current) use of insulin; Z95.828 Presence of other vascular implants and grafts
CPT/HCPCS: 36415; 51702; 80048; 80076; 81001; 82947; 83735; 85025; 93005; 99283; 99285

== ENCOUNTER → 2022-10-27 10:28 | Outpatient (BNVA) | payer OTHER, SELFPAY | PROVIDERS: PCP Hospitalist; Visit Provider Nurse Practitioner Family | DX: N40.1 Benign prostatic hyperplasia with lower urinary tract symptoms (principal); N13.8 Other obstructive and reflux uropathy; R33.8 Other retention of urine; R39.12 Poor urinary stream | CPT/HCPCS: 51798; 99202 ==

== ENCOUNTER 2022-12-07 11:02 | Outpatient (AMB) | payer OTHER, SELFPAY ==
--- NOTE | 2022-12-07 11:07 | A.OFFVIS_ITS ---
Intake Intake Visit Reasons: cysto? (voiding trial/possible appt per Dixie) Intake Note: Patient presents today for a CYSTO Procedure * Meds: Finasteride & Tamsulosin * Allergies to Antibiotic: Sulfa * Blood Thinner: Aspirin Disposible Uro-G Cystoscope Cannula * Lot: [id number] * Exp: 11/11/2024 Planning Rn Required: Yes Planning Rn Language: Kazakh Accompanied by: Other Relationship Allergies Sulfa (Sulfonamide Antibiotics) [SULFA (SULFONAMIDE ANTIBIOTICS)] Allergy (Intermediate, Verified 12/07/22 11:17) hives HPI HPI Comments History of Present Illness Details Juan Jose is a pleasant Kazakh-speaking male. He is a patient Dr. Kee. He is seen the following urologic conditions - neurogenic bladder Here for cystoscopy Small prostate, open bladder neck, large bladder capacity Background of bipolar and poorly managed diabetes Has lost 160 lb on GLP 1 Recommendation for suprapubic tube placement Peters catheter placed prior to leaving office Lower urinary tract symptoms---- last office visit 04/19 Initial presentation [facility] for bipolar disorder management Difficulty with urine initiation and weakness of stream Concomitant diabetes with diabetic nephropathy and microalbumin urea Initiated on doxazosin Has been having retrograde ejaculation with dizziness Switched to alfuzosin Plan six-month follow-up with PSA [facility] Medical History Anemia Anemia in chronic kidney disease Bacteremia CKD (chronic kidney disease) CKD (chronic kidney disease) stage 3, GFR 30-59 ml/min CKD stage G3b/A2, GFR 30-44 and albumin creatinine ratio 30-299 mg/g Diabetes type 2, uncontrolled Diabetic polyneuropathy associated with type 2 diabetes mellitus Dyslipidemia Foot osteomyelitis, right Foot ulcer Headache 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 deficiency Left knee pain Microalbuminuria Moderate non-proliferative diabetic retinopathy Morbid obesity NEEMA on CPAP Osteomyelitis PAD (peripheral artery disease) Patellofemoral arthritis of left knee [id number] syndrome Right foot pain Vitamin D deficiency Surgical History History of eye surgery 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 History of tonsillectomy and adenoidectomy Hx laparoscopic cholecystectomy S/P cataract surgery S/P debridement S/P tooth extraction Status post amputation of toe Family History Father Cerebral aneurysm CVD (cardiovascular disease) Stroke Mother DM (diabetes mellitus) Stroke Brother No problems noted. Brother No problems noted. Son No problems noted. Daughter In good health Maternal Grandmother DM (diabetes mellitus) Stroke Social History Household Members: None Housing: Unknown / Unable to assess Unable to assess alcohol history related to: Unable to respond Alcohol intake: never Patient Tobacco Use Status: Never used Tobacco e-Cigarette/Vaping Use: Never Used Second Hand Smoke Exposure: No Substance Use Type: Marijuana Advance Directives Date on File: 09/19/22 service: No Current occupational status: disabled Sexual orientation: Did not discuss. Cognitive needs: No Hearing needs: No Vision needs: Yes Review of Systems Const Denies chills and Denies fever(s) Card Reports no additional complaints and Denies syncope Resp Denies cough GI Denies abdominal pain and Denies heartburn Reports as per HPI and Denies change in libido Neuro Denies syncope Psych Denies change in libido Endo Denies change in libido Physical Exam Const General: cooperative, healthy appearing, comfortable and no acute distress Orientation/consciousness: patient oriented x3 HEENT Face and sinus: Yes normal facial exam Mouth: moist mucous membranes Neck Neck: Yes normal visual inspection, Yes full ROM and Yes trachea midline Chest Chest palpation & inspection: normal inspection of the chest Resp Effort & Inspection: normal respiratory effort, able to speak in complete sentences and no respiratory distress GI Inspection: Yes normal to inspection Back/Spine/Pelvis Cervical Spine: normal cervical lordosis Thoracic/Lumbar Spine: thoracic and lumbar spine normal to inspection Skin General skin exam: no rashes or lesions noted Neuro General: patient oriented x3, gait normal, tone normal and moves all extremities Extrem General: Yes normal to inspection and Yes capillary refill normal Office Procedures Bladder/Catheter Procedure Details: per Dr Singer 16 fr cath with 10 ml balloon placed, SP tube placement to be set up by surgical appliances salesperson. [id number] Temporary Bladder Catheter Procedure code (CPT) selection complete Cystoscopy Consent Discussed risk and benefit or proposed procedure with the patient. Information consent for procedure given to the patient. Discussed technical aspects, risks, benefits and alternatives in full. Addressed all of the patient's questions and concerns regarding the procedure. The patient demonstrated knowledge and understanding. They wish to proceed with this procedure. Preparation The patient was prepped in the usual manner. A professor of practice was present and in the room. Genitalia was prepped with betadine solution in a sterile manner. Lidocaine Jelly 2% was placed into the urethra and 16Fr flexible Olympus cystoscope was inserted into the meatus after adequate lubrication. Procedure Meatus uncircumcised Urethra anterior posterior urethra normal Prostatic Urethra unremarkable, short prostate Bladder examination with retroflexion of cystoscope Bladder Orifices normal shape and position Bladder Capacity large Trabeculations - Cellule Formation - Diverticulum Formation - Mucosal Erythema - Bladder Tumor - 16 fr cath w 10 ml balloon removed, pt tolerated removal well. [id number] Procedure code (CPT) selection complete Office Meds lidocaine HCl Performing Provider: Sherwin Singer MD Administered by: Verna Smart RN on 12/07/22 12:17 Dose Route Admin Location Lot Number Expiration Date NDC Sole Buffer 10 mL intra-urethral nitrofurantoin monohyd/m-cryst 100 mg Performing Provider: Sherwin Singer MD Administered by: Verna Smart RN on 12/07/22 12:17 Dose Route Admin Location Lot Number Expiration Date NDC Sole Buffer 100 mg PO Assessment & Plan Assessment & Plan (1) Retention of urine: Code(s): R33.9 - Retention of urine, unspecified Plan Risks, benefits and alternatives to therapy were discussed. These include but are not limited to infection, bleeding, damage to local organs and tissues, need for further interventions. Anesthetic risks regarding cardiac arrhythmia, blood clots, and potential mortality were discussed. The patient understands the typical recovery time and the outpatient nature of the procedure. After consideration of these risks the patient gives full informed consent and they wish to move ahead with the procedure. Cystoscopy, suprapubic tube placement Orders: Orders AMB Cystoscopy Today R33.9 - Retention of urine, unspecified AMB Bladder/Catheter Procedure Today R33.9 - Retention of urine, unspecified Patient Instructions: Imaging studies, laboratory and physical exam results were discussed and reviewed in detail. No major barriers to patient understanding were identified. An opportunity to ask questions regarding the treatment plan was provided. All questions were answered. The patient expressed understanding and agreement with the above treatment plan. The patient is aware they should contact our office by phone for worsening of their current condition or the appearance of new urologic symptoms. Compliance is encouraged with any medications and followup testing that is ordered. It is a privilege to participate in the urologic care of your patient. If you have any questions or concerns regarding treatment for the above conditions, or other urologic issues, please do not hesitate to contact me. The office telephone contact is [phone]. This note is constructed using voice recognition software. While every effort has been made to ensure accuracy chief crew scheduler errors may have been included. Yours sincerely, Dr Sherwin Singer MD, [facility] - Urology Providers of Expert, Compassionate Care for the Genitourinary System Coding Level of Care Code Est Pt Level 4 (38749) Diagnoses Retention of urine R33.9 CPT Codes Bladder/Catheter Procedure - CPT: 25632-Xjcckb Temporary Bladder Catheter ([id number]) Cystoscopy - CPT: 74091-[id number] ([id number])
== END 2022-12-07 12:44 | disposition home or self-care (01) ==
LOC: HO.HUSH 11:02
PROVIDERS: PCP Hospitalist; Visit Provider Urology
DX: R33.9 Retention of urine, unspecified (principal)
CPT/HCPCS: 52000; 99214

== ENCOUNTER → 2022-12-07 11:02 | Outpatient (BNVA) | payer OTHER, SELFPAY | PROVIDERS: PCP Hospitalist; Visit Provider Urology | DX: R33.9 Retention of urine, unspecified (principal) | CPT/HCPCS: 52000; 99212 ==

== ENCOUNTER 2023-01-04 10:08 | Outpatient (AMB) | payer MEDICAID, SELFPAY ==
--- NOTE | 2023-01-04 10:17 | MHC.PC.OV ---
Vital Signs 01/04/23 10:18 Height 5 ft 5.5 in Weight 158 lb 4.67 oz BMI 25.9 BP 94/62 Blood Pressure Location Lt brachial Position Sitting Pulse 90 Pulse Source Pulse Oximeter Pulse Oximetry (%) 99 Oxygen Delivery Method Room Air Intake Visit Reasons: Physical Exam Intake Note: Patient is here today for a physical. 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 Accompanied by: Self / Same As Patient Allergies Sulfa (Sulfonamide Antibiotics) [SULFA (SULFONAMIDE ANTIBIOTICS)] Allergy (Intermediate, Verified 01/04/23 10:44) hives Medication List - Last Reconciled 01/04/23 by Xochilt Singh MD acetaminophen 1,000 mg (2 x 500 mg) PO Q6H PRN 30 days aspirin 81 mg PO DAILY atorvastatin 10 mg PO DAILY blood pressure test kit-medium As directed blood sugar diagnostic (FreeStyle Test strips) Use 4 test strip once a day blood-glucose meter (FreeStyle Lite Meter kit) As directed dextrose 40% 20 grams PO Q15M PRN docusate sodium 100 mg PO BID PRN dulaglutide (Trulicity) 1.5 mg subcut MO@0900 ergocalciferol (vitamin D2) (Vitamin D2) 1,250 mcg PO TU@0900 ferrous sulfate (FeroSul) 325 mg PO DAILY finasteride 5 mg PO DAILY fludrocortisone 0.1 mg PO DAILY fluoxetine 10 mg PO DAILY glucagon 1 mg subcut Q20M PRN Lactobacillus acidophilus 1,000 mmu cells PO DAILY lidocaine 5% (Hemorrhoidal Relief) 1 appl topical BID PRN magnesium hydroxide (Kendrick Milk of Magnesia) 30 mL PO DAILY PRN midodrine 2.5 mg PO TID midodrine 10 mg PO TID polyethylene glycol 3350 (Miralax) 17 grams PO DAILY sodium phosphates 19-7 gram/118 mL (Fleet Enema) 118 mL [place] DAILY PRN tamsulosin 0.4 mg PO BEDTIME [wheelchair electric As directed] Tobacco use date assessed: 01/04/23 Dental Screening Dental Screen Date: 01/04/23 Did you have a dental visit in the last 12 months?: No Did you have a dental problem in the last 6 months where you did not have access to dental care?: No Was dental information given to patient?: Patient has dentist HPI HPI Comments History of Present Illness Details This is a 57-year-old male with diabetes mellitus type 2 and schizoaffective disorder that comes for his physical exam. He is in a wheelchair and has a Peters catheter. Has chronic kidney disease follow by Nephrology. Currently living in shelter. Used to follow with counseling for his schizoaffective disorder but and not anymore and has been stable with fluoxetine. No chest pain or shortness of breath. Able to stand up but get dizzy after 3-4 steps. [facility] Medical History Anemia Anemia in chronic kidney disease Bacteremia CKD (chronic kidney disease) CKD (chronic kidney disease) stage 3, GFR 30-59 ml/min CKD stage G3b/A2, GFR 30-44 and albumin creatinine ratio 30-299 mg/g Diabetes type 2, uncontrolled Diabetic polyneuropathy associated with type 2 diabetes mellitus Dyslipidemia Foot osteomyelitis, right Foot ulcer Headache 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 deficiency Left knee pain Microalbuminuria Moderate non-proliferative diabetic retinopathy Morbid obesity NEEMA on CPAP Osteomyelitis PAD (peripheral artery disease) Patellofemoral arthritis of left knee [id number] syndrome Right foot pain Vitamin D deficiency Surgical History History of eye surgery 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 History of tonsillectomy and adenoidectomy Hx laparoscopic cholecystectomy S/P cataract surgery S/P debridement S/P tooth extraction Status post amputation of toe Family History Father Cerebral aneurysm CVD (cardiovascular disease) Stroke Mother DM (diabetes mellitus) Stroke Brother No problems noted. Brother No problems noted. Son No problems noted. Daughter In good health Maternal Grandmother DM (diabetes mellitus) Stroke Social History Household Members: None Housing: Unknown / Unable to assess Unable to assess alcohol history related to: Unable to respond Alcohol intake: never Patient Tobacco Use Status: Never used Tobacco e-Cigarette/Vaping Use: Never Used Second Hand Smoke Exposure: No Substance Use Type: Marijuana Advance Directives Date on File: 09/19/22 service: No Current occupational status: disabled Sexual orientation: Did not discuss. Cognitive needs: No Hearing needs: No Vision needs: Yes Questionnaire PHQ-9 Over the last 2 weeks, how often have you been bothered by any of the following problems? 1. Little interest or pleasure in doing things: nearly every day 2. Feeling down, depressed, or hopeless: nearly every day 3. Trouble falling or staying asleep, or sleeping too much: nearly every day 4. Feeling tired or having little energy: nearly every day 5. Poor appetite or overeating: nearly every day 6. Feeling bad about yourself - or that you are a failure or have let yourself or your family down: nearly every day 7. Trouble concentrating on things, such as reading the newspaper or watching television: more than half the days 8. Moving or speaking so slowly that other people could have noticed. Or the opposite - being so fidgety or restless that you have been moving around a lot more than usual: nearly every day 9. Thoughts that you would be better off or of hurting yourself in some way: not at all Total score: 23 Depression Screening Interpretation: Positive (no suicidal thoughts) Depression Screening Follow-up: Existing condition and In treatment 44380 - PHQ-9 Billing: Yes Source: Developed by Drs. Glenn Pritchard, Vaenssa Hernandez, Jules Sims and colleagues, with an educational darlin from [employer]. Thrive Questionnaire Date Thrive assessed: 05/03/22 I am a: Patient (Pt live in a shelter called [facility].) What is your living situation today?: I have a steady place to live Within the past 12 months, did the food you bought not last and you didn't have the money to get more?: Never true Within the past 12 months, did you worry whether your food would run out before you got money to buy more?: Never true Do you have trouble paying for medicines?: No Do you have trouble getting transportation to medical appointments?: No Do you have trouble paying your heating and electricity bill?: No Do you have trouble taking care of your child, family member or friend?: No Do you have trouble with day-to-day activities such as bathing, preparing meals, shopping, managing finances, etc.?: No Are you currently unemployed and looking for a job?: No Are you interested in more education?: No AUDIT C Alcohol Use Questionnaire (AUDIT-C) 1. How often do you have a drink containing alcohol?: Never 3. How often do you have six or more drinks on one occasion?: Never Total Score: 0 MELISA-7 AMB Questionnaire MELISA-7 Date MELISA - 7 assessed: 01/04/23 Feeling nervous, anxious, or on edge: 3 = Nearly every day Not being able to stop or control worryin = More than half the days Worrying too much about different things: 2 = More than half the days Trouble relaxin = Several days Being so restless that it is hard to sit still: 0 = Not at all Becoming easily annoyed or irritable: 0 = Not at all Feeling afraid as if something awful might happen: 0 = Not at all Total MELISA-7 score (0-4 normal; 5-9 mild; 10-14 moderate; 15-21 severe): 8 Source: Developed by Drs. Glenn Pritchard, Vanessa Hernandez, Jules Sims and colleagues, with an educational darlin from [employer]. MELISA-7 Assessment Billing MELISA-7 Assessment Tool: MELISA-7 Assessment 49010 Review of Systems Const All systems reviewed & are unremarkable except as noted in HPI and below Eyes Reports no additional complaints, Denies change in vision and Denies other visual disturbances Card Denies chest pain at rest, Denies chest pain with activity, Denies edema, Denies irregular heart rhythm, Denies claudication, Denies dyspnea, Denies dyspnea on exertion, Denies orthopnea, Denies paroxysmal nocturnal dyspnea and Denies slow heart rate Resp Denies cough, Denies dyspnea and Denies dyspnea on exertion GI Denies abdominal pain, Denies change in bowel habits, Denies excessive flatus, Denies nausea and Denies vomiting Denies urinary hesitancy, Denies urinary incontinence and Denies urinary urgency Musc Denies abnormal gait, Denies atrophy, Denies deformity and Denies limited range of motion Skin/Breast Denies bleeding lesions, Denies changing lesions and Denies rash Neuro Denies abnormal gait and Denies lack of coordination Physical exam (Primary Care) Vital Signs: Last Vital Signs Pulse 90 01/04/23 10:18 BP 94/62 01/04/23 10:18 Pulse Ox 99 01/04/23 10:18 Oxygen Delivery Method Room Air 01/04/23 10:18 BMI result Body Mass Index 25.9 Tobacco/Smoking Status: Tobacco use Status Tobacco use date assessed 01/04/23 01/04/23 10:27 Patient Tobacco Use Status Never used Tobacco 01/04/23 10:21 e-Cigarette/Vaping Use Never Used 01/04/23 10:21 PHQ-9: PHQ-9 Score PHQ-9: Total score 01/04/23 11:03 Depression Screening Interpretation: Positive (no suicidal thoughts) Depression Screening Follow-up: Existing condition and In treatment Thrive Assessment: Date of Thrive Assessment Date Thrive assessed 05/03/22 01/04/23 10:21 Const Orientation/consciousness: patient oriented x3 Limitations: wheelchair HENMT Head: Yes normal to inspection, Yes normocephalic and Yes atraumatic Ears: external ears normal Eyes General: appearance normal, both eyes and all related structures Eyelids: Yes eyelids normal Conjunctivae: conjunctivae normal Neck Neck: Yes normal visual inspection and Yes supple Resp Effort & Inspection: normal respiratory effort Auscultation: clear to auscultation bilaterally Cardio Jugular venous distension: no JVD Rate: regular rate Rhythm: regular rhythm Heart sounds: S1 normal heart sound present and S2 normal heart sound present GI Inspection: Yes normal to inspection Palpation (GI): Soft to palpation and nontender Auscultation: normal bowel sounds Skin General skin exam: no rashes or lesions noted Neuro General: patient oriented x3 and no focal motor deficits Extrem General: Yes full ROM Psych Appearance: grossly normal Results AMB Hemoglobin A1c AMB Hemoglobin A1c 5.7 % Last Edit by MILTON Horvath on 01/04/23 11:03 Results Reviewed Results Reviewed: Laboratory Last Values Hgb A1c (Clinic) 5.7 % (4.0-6.0) 01/04/23 10:32 Assessment and Plan Assessment & Plan (1) Physical exam: Code(s): Z00.00 - Encounter for general adult medical examination without abnormal findings Plan: Repeat in a year (2) Diabetes mellitus: Code(s): E11.9 - Type 2 diabetes mellitus without complications Plan: Continue Trulicity. A1c goal is equal or less than 7%. (3) Schizoaffective disorder, bipolar type: Code(s): F25.0 - Schizoaffective disorder, bipolar type Plan: Continue fluoxetine. Orders: Orders Comprehensive [place]. Panel Fast Today E11.9 - Type 2 diabetes mellitus without complications IRON PROFILE Today D64.9 - Anemia, unspecified Lipid Panel Today E78.5 - Hyperlipidemia, unspecified Microalbumin, Random (w Creat) Today E11.9 - Type 2 diabetes mellitus without complications Complete Blood Count Auto Diff Today D64.9 - Anemia, unspecified AMB Hemoglobin A1c Today E11.65 - Type 2 diabetes mellitus with hyperglycemia Coding Level of Care Code Est Pt Prev Care 40-64y(09163) Diagnoses Physical exam Z00.00 Diabetes mellitus E11.9 Schizoaffective disorder, bipolar type F25.0 Additional Codes MELISA-7 Assessment Billing - MELISA-7 Assessment Tool: MELISA-7 Assessment 90632 ([id number]) Time Spent (min) 36
[2023-01-04 10:18] VITALS: BP 94/62; PULSE 90; O2SAT 99; BMI 25.9
== END 2023-01-04 11:05 | disposition home or self-care (01) ==
PROVIDERS: PCP Hospitalist; Visit Provider Internal Medicine
DX: Z00.00 Encounter for general adult medical examination without abnormal findings (principal); E11.9 Type 2 diabetes mellitus without complications; F25.0 Schizoaffective disorder, bipolar type; E11.65 Type 2 diabetes mellitus with hyperglycemia
CPT/HCPCS: 83036; 99396

== ENCOUNTER 2023-01-26 11:07 | Outpatient (AMB) | payer MEDICAID, SELFPAY ==
--- NOTE | 2023-01-26 11:10 | A.OFFVIS_ITS ---
Intake Vital Signs 01/26/23 11:16 Height 5 ft 5.5 in BMI Reason not done Patient refused/unable BP 102/54 L Blood Pressure Location Lt brachial Position Sitting Pulse 78 Pulse Source Pulse Oximeter Pulse Oximetry (%) 99 Oxygen Delivery Method Room Air Intake Visit Reasons: pre-op urology Intake Note: pt is here for pre-op clearance for Dr. 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: Yes Allergies Sulfa (Sulfonamide Antibiotics) [SULFA (SULFONAMIDE ANTIBIOTICS)] Allergy (Intermediate, Verified 01/26/23 11:19) hives Medication List - Last Reconciled 01/26/23 by Olaf Douglas MD acetaminophen 1,000 mg (2 x 500 mg) PO Q6H PRN 30 days aspirin 81 mg PO DAILY atorvastatin 10 mg PO DAILY blood pressure test kit-medium As directed blood sugar diagnostic (FreeStyle Test strips) Use 4 test strip once a day blood-glucose meter (FreeStyle Lite Meter kit) As directed dextrose 40% 20 grams PO Q15M PRN docusate sodium 100 mg PO BID PRN dulaglutide (Trulicity) 1.5 mg subcut MO@0900 ergocalciferol (vitamin D2) (Vitamin D2) 1,250 mcg PO TU@0900 ferrous sulfate (FeroSul) 325 mg PO DAILY finasteride 5 mg PO DAILY fludrocortisone 0.1 mg PO DAILY fluoxetine 10 mg PO DAILY glucagon 1 mg subcut Q20M PRN Lactobacillus acidophilus 1,000 mmu cells PO DAILY lidocaine 5% (Hemorrhoidal Relief) 1 appl topical BID PRN magnesium hydroxide (Kendrick Milk of Magnesia) 30 mL PO DAILY PRN midodrine 2.5 mg PO TID midodrine 10 mg PO TID polyethylene glycol 3350 (Miralax) 17 grams PO DAILY sodium phosphates 19-7 gram/118 mL (Fleet Enema) 118 mL [place] DAILY PRN tamsulosin 0.4 mg PO BEDTIME [wheelchair electric As directed] Do you need a note to return to daycare/school/sports/work: No HPI pre-op urology HPI Details 57 YEARS OLD GENTLEMAN, IS A CASE OF URINARY RETENTION, TREATED WITH INDWELLING RIVERS CATHETER, HE IS AWAITING TO UNDERGO UROLOGIC PROCEDURE. COMES HERE. FOR PREOP PULMONARY EVALUATION. AT PRESENT THE HE IS IN A LONG-TERM FACILITY, FOR REHAB PROGRAM, HE HAS POSTURAL HYPOTENSION, AND ALSO WEAKNESS OF LOWER EXTREMITIES DUE TO PERIPHERAL NEUROPA THY. HE IS CURRENTLY NONAMBULATORY. HE IS MOSTLY IN THE WHEELCHAIR HE IS NON AMBULATORY, SO HE DENIES GETTING SHORT OF BREATH ON EXERTION. HE DENIES ANY COUGH OR WHEEZING, ONLY OCCASIONALLY HE FEELS THAT HE HAS TO COUGH TO CLEAR HIS, THROAT BUT NEVER EXPECTORATES ANY MUCUS. THIS GENTLEMAN HAS PAST HISTORY OF MORBID OBESITY HE HAS AND OBSTRUCTIVE SLEEP APNEA. HE UNDERWENT GASTRIC BYPASS SURGERY IN 2017 AND SINCE THEN HE HAS LOST SIGNIFICANT AMOUNT OF WEIGHT. HE WAS STARTED ON CPAP THERAPY , WHICH WAS DISCONTINUED DUE TO HIS INABILITY TO USE THE CPAP. AT PRESENT HE DOES NOT HAVE ANY PROBLEM WITH SLEEP. HE GETS ABOUT 5-6 HOURS OF SLEEP AT NIGHT AND SOMETIME ABOUT 1 HOUR DURING THE DAYTIME. PULMONARY FUNCTION TEST BACK IN 2017 SHOWED MODERATELY SEVERE RESTRICTIVE PULMONARY DISORDER, WHICH WAS DUE TO HIS MORBID OBESITY, WILL DO A SPIROMETRY TODAY TO COMPARE WITH HIS PREVIOUS RESULTS. . [facility] Medical History (Updated 01/26/23 @ 11:57 by Olaf Douglas MD) Anemia Anemia in chronic kidney disease Bacteremia CKD (chronic kidney disease) CKD (chronic kidney disease) stage 3, GFR 30-59 ml/min CKD stage G3b/A2, GFR 30-44 and albumin creatinine ratio 30-299 mg/g Diabetes type 2, uncontrolled Diabetic polyneuropathy associated with type 2 diabetes mellitus Dyslipidemia Foot osteomyelitis, right Foot ulcer Headache 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 deficiency Left knee pain Microalbuminuria Moderate non-proliferative diabetic retinopathy Morbid obesity NEEMA on CPAP Osteomyelitis PAD (peripheral artery disease) Patellofemoral arthritis of left knee [id number] syndrome Restrictive lung disease Right foot pain Vitamin D deficiency Surgical History History of eye surgery 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 History of tonsillectomy and adenoidectomy Hx laparoscopic cholecystectomy S/P cataract surgery S/P debridement S/P tooth extraction Status post amputation of toe Family History Father Cerebral aneurysm CVD (cardiovascular disease) Stroke Mother DM (diabetes mellitus) Stroke Brother No problems noted. Brother No problems noted. Son No problems noted. Daughter In good health Maternal Grandmother DM (diabetes mellitus) Stroke Social History Household Members: None Housing: Unknown / Unable to assess Unable to assess alcohol history related to: Unable to respond Alcohol intake: never Patient Tobacco Use Status: Never used Tobacco e-Cigarette/Vaping Use: Never Used Second Hand Smoke Exposure: No Substance Use Type: Marijuana Advance Directives Date on File: 09/19/22 service: No Current occupational status: disabled Sexual orientation: Did not discuss. Cognitive needs: No Hearing needs: No Vision needs: Yes Review of Systems Const All systems reviewed & are unremarkable except as noted in HPI and below Eyes Reports no additional complaints ENT Reports nasal congestion (off and on ) Card Denies chest pain, Denies irregular heart rhythm and Denies leg edema Resp Reports as per HPI, Denies cough and Denies wheezing GI Reports no additional complaints Reports no additional complaints Musc Reports no additional complaints Skin/Breast Reports system reviewed and no additional complaints, except as documented Neuro Reports no additional complaints Psych Reports no additional complaints Endo Reports other (diabetes M ) Aller/Immun Denies wheezing Physical Exam Vital Signs: Last Vital Signs Pulse 78 01/26/23 11:16 BP 102/54 L 01/26/23 11:16 Pulse Ox 99 01/26/23 11:16 Oxygen Delivery Method Room Air 01/26/23 11:16 Const General: comfortable, no acute distress, alert and awake Orientation/consciousness: patient oriented x3 HEENT Head: Yes normal to inspection General nose exam: No nasal polyps present and No nasal discharge present Face and sinus: Yes sinuses nontender Mouth: oropharynx normal Throat: Yes posterior oropharynx normal Eyes General: appearance normal, both eyes and all related structures Neck Neck: Yes normal visual inspection, Yes no lymphadenopathy, Yes trachea midline and Yes no JVD Thyroid: Thyroid normal Chest Chest palpation & inspection: normal inspection of the chest, normal palpation of entire chest wall and no tenderness Resp Effort & Inspection: normal respiratory effort and no cough Auscultation: no crackles and no wheezes Cardio Palpation: normal PMI Rate: regular rate Rhythm: regular rhythm Heart sounds: no gallops and no murmurs GI Palpation (GI): Soft to palpation, nontender, No hepatosplenomegaly present and no masses Auscultation: normal bowel sounds Other: HAS RIVERS CATHETER IN PLACE Back/Spine/Pelvis Thoracic/Lumbar Spine: thoracic and lumbar spine normal to inspection and thoraco-lumbar ROM limited Skin General skin exam: no rashes or lesions noted Neuro General: patient oriented x3, No gait normal (NON AMBULATORY, PATIENT IN WHEELCHAIR) and No no focal motor deficits (HAS GENERALIZED WEAKNESS OF THE MUSCLES IN LOWER EXTREMITIES) Cranial nerves: Yes CN's II-XII intact bilaterally Extrem General: Yes normal to inspection, Yes no clubbing, cyanosis or edema and Yes no calf tenderness Psych Appearance: grossly normal Speech and movement: Normal speech and movement present Office Procedures Spirometry Testing Spirometry Comments: spirometry done in the office, Dr. Douglas has the results results scanned to his chart. 66411- Spirometry Results Reviewed Results Reviewed: SPIROMETRY IN THE OFFICE FVC 74%, FEV1 77%,FEF 25-75 98% C/W A MILD DEGREE OF RESTRICTIVE PULMONARY DISORDER, NO OBSTRUCTIVE AIRWAY DISORDER. COMPARED TO PULMONARY FUNCTION TEST IN 2017, THE 5 FLOW VOLUMES AND TLC ARE MUCH IMPROVED Assessment & Plan Assessment & Plan (1) NEEMA (obstructive sleep apnea): Comment: He did have obstructive sleep apnea when he had morbid obesity. Remained non compliant to the use, of CPAP Now that he has lost, significant amount of weight , NEEMA has resolved. Code(s): G47.33 - Obstructive sleep apnea (adult) (pediatric) (2) Allergic rhinitis: Comment: Mild chronic. Tx: Flonase 2 spray each nostril only PRN , May use OTC antihistaminic agents such as Claritin 10 mg p.r.n.. Code(s): J30.9 - Allergic rhinitis, unspecified (3) Restrictive lung disease: Comment: Patient had moderate degree of restrictive lung disease in 2017 related to his morbid obesity. With successful weight loss, after gastric bypass surgery, the restrictive component has much improved. Spirometry today shows only mild degree of restrictive disorder, Code(s): J98.4 - Other disorders of lung Plan: FROM PULMONARY POINT OF VIEW NO CONTRAINDICATIONS TO PLANNED UROLOGIC SURGERY. Orders: Orders AMB Spirometry Testing Today G47.33 - Obstructive sleep apnea (adult) (pediatric) Coding Level of Care Code Est Pt Level 4 (76018) Diagnoses NEEMA (obstructive sleep apnea) G47.33 Allergic rhinitis J30.9 Restrictive lung disease J98.4 CPT Codes Spirometry - CPT: 39625- Spirometry ([id number])
[2023-01-26 11:16] VITALS: BP 102/54; PULSE 78; O2SAT 99
== END 2023-01-26 13:31 | disposition home or self-care (01) ==
PROVIDERS: PCP Hospitalist; Visit Provider Internal Medicine
DX: G47.33 Obstructive sleep apnea (adult) (pediatric) (principal); J30.9 Allergic rhinitis, unspecified; J98.4 Other disorders of lung
CPT/HCPCS: 94010; 99214

== ENCOUNTER → 2023-01-26 11:07 | Outpatient (BNVA) | payer MEDICAID, SELFPAY | PROVIDERS: PCP Hospitalist; Visit Provider Internal Medicine | DX: J98.4 Other disorders of lung (principal); J30.9 Allergic rhinitis, unspecified; G47.33 Obstructive sleep apnea (adult) (pediatric) | CPT/HCPCS: 94010; 99212 ==

== ENCOUNTER 2023-02-06 09:06 | Day surgery (SDC) | payer MEDICAID, SELFPAY ==
[2023-02-06 09:13] VITALS: BP 127/69; PULSE 73; RESP 16; TEMP 36.7; O2SAT 100
[2023-02-06 09:18] VITALS: BMI 26.3
[2023-02-06 09:37] LABS: Glucose, Whole Blood 136 mg/dL (60-115)
--- NOTE | 2023-02-06 09:52 | HO.ANESPROP2 ---
[facility] Active Problems Active Problems: All Active Problems (Updated 02/02/23 @ 14:05 by Amanda Smith RN) Retention of urine (Acute) Osteomyelitis (Acute) Orthostatic hypotension (Acute) Cognitive and behavioral changes (Acute) Hyperlipidemia LDL goal <70 (Acute) BPH loc w urin obs/LUTS (Acute) Weak urinary stream (Acute) Renal impairment (Acute) Hypotension (Acute) Foot callus (Acute) Memory loss or impairment (Acute) Bipolar disorder with psychotic features (Acute) Schizoaffective disorder, bipolar type (Acute) Diabetes mellitus (Acute) Lumbar pain (Acute) Mood disorder (Acute) Physical exam (Acute) Allergic rhinitis (Acute) NEEMA (obstructive sleep apnea) (Acute) Hospital discharge follow-up (Acute) Drug-induced liver injury (Acute) Transaminitis (Acute) Pathological fracture of foot (Acute) Wound of right foot (Acute) Leg edema (Acute) Wound of right foot (Acute) Obesity (BMI 30-39.9) (Acute) detention (current) use of insulin (Acute) COVID-19 (Acute) Hypertension (Acute) Obesity (Acute) Diabetic nephropathy associated with type 2 diabetes mellitus (Acute) Restrictive lung disease (Acute) Bacteremia (Acute) Foot ulcer (Acute) Headache (Acute) Patellofemoral arthritis of left knee (Acute) CKD (chronic kidney disease) stage 3, GFR 30-59 ml/min (Acute) Microalbuminuria (Acute) Left knee pain (Acute) PAD (peripheral artery disease) (Acute) Foot osteomyelitis, right (Acute) Anemia in chronic kidney disease (Acute) Diabetes type 2, uncontrolled (Acute) Right foot pain (Acute) Morbid obesity (Acute) 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 deficiency (Acute) 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 (Acute) Vitamin D deficiency (Acute) Moderate non-proliferative diabetic retinopathy (Acute) Diabetic polyneuropathy associated with type 2 diabetes mellitus (Acute) Dyslipidemia (Acute) Status post amputation of toe (Acute) S/P tooth extraction (Acute) S/P debridement (Acute) S/P cataract surgery (Acute) Hx laparoscopic cholecystectomy (Acute) History of tonsillectomy and adenoidectomy (Acute) 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 (Acute) CKD (chronic kidney disease) (Acute) Past Medical History Medical History (Updated 02/02/23 @ 14:05 by Amanda Smith RN) Bipolar 1 disorder Difficulty walking Neuromuscular dysfunction of bladder PVD (peripheral vascular disease) Benign prostatic hyperplasia Hyperlipidemia Restrictive lung disease Bacteremia Foot ulcer Headache Patellofemoral arthritis of left knee Microalbuminuria Left knee pain Foot osteomyelitis, right Anemia in chronic kidney disease Right foot pain PAD (peripheral artery disease) Anemia CKD (chronic kidney disease) stage 3, GFR 30-59 ml/min CKD stage G3b/A2, GFR 30-44 and albumin creatinine ratio 30-299 mg/g Osteomyelitis Morbid obesity 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 deficiency 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 Brother No problems noted. Son No problems noted. Daughter In good health Maternal Grandmother DM (diabetes mellitus) Stroke Family history of problems with anesthesia: No Surgical History Surgical History History of eye surgery S/P tooth extraction 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 Hx laparoscopic cholecystectomy Status post amputation of toe S/P cataract surgery S/P debridement History of tonsillectomy and adenoidectomy History of Problems with Anesthesia: No Social History Social History Household Members: None Housing: Unknown / Unable to assess Unable to assess alcohol history related to: Unable to respond Alcohol intake: never Patient Tobacco Use Status: Never used Tobacco e-Cigarette/Vaping Use: Never Used Second Hand Smoke Exposure: No Use of substances other than those prescribed or required for medical reasons: No Substance Use Type: Marijuana Are you DNR?: No Advance Directives: No Advance Directives Information Provided: Yes Advance Directives on File: No Advance Directives Date on File: 09/19/22 service: No Current occupational status: disabled Sexual orientation: Did not discuss. Cognitive needs: No Hearing needs: No Vision needs: Yes Meds Allergies Allergy/AdvReac Type Severity Reaction Status Date / Time Sulfa (Sulfonamide Allergy Intermediate hives Verified 01/26/23 11:19 Antibiotics) [SULFA (SULFONAMIDE ANTIBIOTICS)] Home Medications Medication Instructions Recorded Confirmed Last Taken Type atorvastatin 10 mg tablet 10 mg PO DAILY 03/23/22 02/02/23 09/03/22 History ergocalciferol (vitamin D2) 1,250 1,250 mcg PO TU@0900 03/23/22 02/02/23 08/30/22 History mcg (50,000 unit) capsule (Vitamin D2) dulaglutide 1.5 mg/0.5 mL 1.5 mg subcut MO@0900 08/18/22 02/02/23 08/29/22 History subcutaneous pen injector (Trulicity) ferrous sulfate 325 mg (65 mg 325 mg PO DAILY 08/18/22 02/02/23 09/03/22 History iron) tablet (FeroSul) finasteride 5 mg tablet 5 mg PO DAILY 09/04/22 02/02/23 09/03/22 History midodrine 10 mg tablet 10 mg PO TID 10/27/22 02/02/23 Unknown History Lactobacillus acidophilus 1 1,000 mmu cells PO BID 01/04/23 02/02/23 Unknown History billion cell capsule dextrose 40 % oral gel 20 g PO Q15M PRN Hypoglycemia 01/04/23 02/02/23 Unknown History glucagon 1 mg solution for 1 mg IM Q20M PRN Hypoglycemia 01/04/23 02/02/23 Unknown History injection magnesium hydroxide 400 mg/5 mL 30 ml PO DAILY PRN Constipation 01/04/23 02/02/23 Unknown History oral suspension (Kendrick Milk of Magnesia) polyethylene glycol 3350 17 17 g PO DAILY PRN Constipation 01/04/23 02/02/23 Unknown History gram/dose oral powder (Miralax) sodium phosphates 19 gram-7 118 ml IN DAILY PRN Constipation 01/04/23 02/02/23 Unknown History gram/118 mL enema (Fleet Enema) acetaminophen 325 mg tablet 650 mg PO BID 02/02/23 02/02/23 Unknown History acetaminophen 325 mg tablet 650 mg PO Q4H PRN Pain, Moderate 02/02/23 02/02/23 Unknown History bisacodyl 10 mg rectal suppository 10 mg IN DAILY PRN Constipation 02/02/23 02/02/23 Unknown History (Dulcolax (bisacodyl)) epinephrine 0.3 mg/0.3 mL 0.3 mg IM Q10M PRN Anaphylaxis 02/02/23 02/02/23 Unknown History injection syringe Exam Exam Date and Time: February 06, 2023 09 Height,Weight and Vital Signs: Height 5 ft 5 in Weight 71.668 kg Last Vital Signs Temp 98.0 F 02/06/23 09:13 Pulse 73 02/06/23 09:13 Resp 16 02/06/23 09:13 BP 127/69 02/06/23 09:13 Pulse Ox 100 02/06/23 09:13 O2 Del Method Room Air 02/06/23 09:13 Pertinent Lab Results Pertinent Lab Results: Laboratory Tests 02/06/23 09:31 POC Glucose 136 H Airway Mallampati Class: II (front top 2 teeth missing, nothing loose) TM Dist: >3cm Neck ROM: Full Heart: rrr Lungs: cta Assessment and Plan Assessment Anesthesia Assessment: Anesthesia Plan Discussed and Chart Reviewed Final Anesthetic Review Family History of Problems with Anesthesia: No History of Problems with Anesthesia: No NPO: Yes ASA Class: III Final Preanesthetic Review: No Changes in Pt Med Stat, Meds/Allgs Chart Reviewed and Consent Obtained/Reviewed Patient Risk: Intermediate Procedure Risk: Intermediate Anesthetic Plan Anesthetic Plan: MAC: Disposition: Standard PACU
--- NOTE | 2023-02-06 10:28 | MHC.SHP ---
Pre-Procedural Eval Section A Date of Service: 02/06/23 The patient is an INPATIENT: No Changes since office visit: No Cold of Flu in the past 2 weeks, No New Medical Problems, No Changes in Medication and No Patient answered all questions The History & Physical has been completed within 30 days and I have reviewed it.: No Section B Chief Complaint: Retention of urine, unspecified Details of Present Illness: for neurogenic bladder Relevant Social History: None Present Medications: see Short Stay Collaborative assessment Medical History: Significant History History of Previous Operations: No relevant previous surgery Allergies: Allergies Allergy/AdvReac Type Severity Reaction Status Date / Time Sulfa (Sulfonamide Allergy Intermediate hives Verified 01/26/23 11:19 Antibiotics) [SULFA (SULFONAMIDE ANTIBIOTICS)] Review of Systems Sugical H&P ROS: Negative: Constitution, Cardiovascular, Respiratory, Neurological, Psychiatric, Hem-Onc, Allergic/Immunologic, Gastrointestinal, Genitourinary, Musculoskeletal, Integumentary, Endocrine and Eyes/Ears/Nose/Throat Exam Surgical H&P Exam: Normal: HEENT, Normal: Heart, Normal: Lungs, Normal: Extremities, Normal: Abdomen, Normal: Skin and Normal: Neurological Plan Diagnosis/Plan: Unchanged ( cystoscopy, suprapubic tube placement) I have reviewed the history and physical and performed a pertinent physical examination on my patient. No changes have occurred unless specified. Time Spent With Patient Time: Total time managing care of this patient today ____ minutes.
--- NOTE | 2023-02-06 10:56 | W.PM.OPN ---
Operative Note Operative Note Date of Service: 02/06/23 Narrative: PreOperative Diagnosis:?neurogenic bladder Post Operative Diagnosis:?neurogenic bladder Procedure:? 1. Cystoscopy 2. Suprapubic tube placement Surgeon: Dr Sherwin Singer Anesthesia:?Sedation plus local Indications for procedure: Failed voiding trial x2. Open bladder neck in office. Procedure: After informed consent was verified the patient was brought to the operating room and placed in a supine position.? Anesthesia was administered per protocol. The patient was placed in a modified dorsal lithotomy position and prepped and draped in a sterile fashion. A safety pause was performed confirming patient identity, procedure and antibiotics. A 22 Portuguese cystoscope was inserted per urethra. Bladder was examined in its entirety. No abnormalities seen. Air bubble was located at the dome of the bladder. A finder needle was inserted 2 fingerbreaths above the symphysis pubis on the abdomen into the bladder.? The needle was visualized in the bladder via cystoscopy. Local anesthetic was infiltrated subcutaneously around the needle introduction site. A small, 1cm horizontal incision was made.? A trocar introducer was advanced through the abdominal wall into the bladder under visualization. The obturator was removed and a 16 Fr spencer catheter placed. 7cc was used to inflate the balloon. The external portion of the trocar was removed. Dressing was placed, the bladder was emptied, and a drainage bag was attached. The patient tolerated the procedure and was transferred in stable condition to the recovery area. Suprapubic tube will be changed in 1 month with a follow-up office visit.
[2023-02-06 10:59] VITALS: BP 125/55; PULSE 78; RESP 18; TEMP 36.8; O2SAT 97
[2023-02-06 11:14] VITALS: BP 132/69; PULSE 69; RESP 18; O2SAT 98
[2023-02-06 11:29] VITALS: BP 124/68; PULSE 70; RESP 18; O2SAT 98
[2023-02-06] MEDS: Acetaminophen 325 MG TABLET 975 MG PO (11:49)
[2023-02-06 11:52] VITALS: BP 123/70; PULSE 74; RESP 18; TEMP 36.3; O2SAT 99
== END 2023-02-06 12:20 | disposition home or self-care (01) ==
PROVIDERS: PCP Internal Medicine; Visit Provider Urology
PROC: (CPT 51102; principal; 2023-02-06 10:40)
DX: N31.9 Neuromuscular dysfunction of bladder, unspecified (principal); R33.9 Retention of urine, unspecified; E11.22 Type 2 diabetes mellitus with diabetic chronic kidney disease; E11.65 Type 2 diabetes mellitus with hyperglycemia; N18.32 Chronic kidney disease, stage 3b; D63.1 Anemia in chronic kidney disease; E11.3399 Type 2 diabetes mellitus with moderate nonproliferative diabetic retinopathy without macular edema, unspecified eye; M86.9 Osteomyelitis, unspecified; L97.509 Non-pressure chronic ulcer of other part of unspecified foot with unspecified severity; E66.01 Morbid (severe) obesity due to excess calories; G47.33 Obstructive sleep apnea (adult) (pediatric); Z79.85 Long-term (current) use of injectable non-insulin antidiabetic drugs; Z79.899 Other long term (current) drug therapy; Z88.2 Allergy status to sulfonamides; Z79.84 Long term (current) use of oral hypoglycemic drugs; Z90.49 Acquired absence of other specified parts of digestive tract
CPT/HCPCS: 51102; 82947; J1956; J2795; J3010

== ENCOUNTER → 2023-02-06 09:06 | Outpatient (BNV) | payer MEDICAID, SELFPAY | PROVIDERS: PCP Internal Medicine; Visit Provider Urology | DX: N31.9 Neuromuscular dysfunction of bladder, unspecified (principal); R33.9 Retention of urine, unspecified | CPT/HCPCS: 51040 ==

== ENCOUNTER 2023-03-09 11:28 | Outpatient (AMB) | payer MEDICAID, SELFPAY ==
--- NOTE | 2023-03-09 11:47 | A.OFFVIS_ITS ---
Intake Intake Visit Reasons: spt change (FIRST) Intake Note: Patient is present for Post Op First SPT Change Jet Operator Required: Yes Allergies Sulfa (Sulfonamide Antibiotics) [SULFA (SULFONAMIDE ANTIBIOTICS)] Allergy (Intermediate, Verified 01/26/23 11:19) hives HPI HPI Comments History of Present Illness Details Juan Jose is a pleasant [place]ralt[place]-speaking male. He is a patient Dr. Kee. He is seen the following urologic conditions - neurogenic bladder Suprapubic tube exchange Sixteen [place] silicon removed, 18 [place] latex placed Continue with exchange with nursing every 4 weeks Suprapubic tube placed January 2023 Lower urinary tract symptoms---- last office visit 04/[address] [facility] for bipolar disorder management Difficulty with urine initiation and weakness of stream Concomitant diabetes with diabetic nephropathy and microalbumin urea Initiated on doxazosin Has been having retrograde ejaculation with dizziness Switched to alfuzosin Plan six-month follow-up with PSA [facility] Medical History (Updated 03/09/23 @ 15:31 by Sherwin Singer MD) Bipolar 1 disorder Difficulty walking Neuromuscular dysfunction of bladder PVD (peripheral vascular disease) Benign prostatic hyperplasia Hyperlipidemia Restrictive lung disease Bacteremia Foot ulcer Headache Patellofemoral arthritis of left knee Microalbuminuria Left knee pain Foot osteomyelitis, right Anemia in chronic kidney disease Right foot pain PAD (peripheral artery disease) Anemia CKD (chronic kidney disease) stage 3, GFR 30-59 ml/min CKD stage G3b/A2, GFR 30-44 and albumin creatinine ratio 30-299 mg/g Osteomyelitis Morbid obesity 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 deficiency [id number] syndrome NEEMA on CPAP Vitamin D deficiency Moderate non-proliferative diabetic retinopathy Diabetic polyneuropathy associated with type 2 diabetes mellitus Dyslipidemia CKD (chronic kidney disease) Diabetes type 2, uncontrolled Surgical History History of eye surgery S/P tooth extraction 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 Hx laparoscopic cholecystectomy Status post amputation of toe S/P cataract surgery S/P debridement History of tonsillectomy and adenoidectomy Family History Father Cerebral aneurysm CVD (cardiovascular disease) Stroke Mother DM (diabetes mellitus) Stroke Brother No problems noted. Brother No problems noted. Son No problems noted. Daughter In good health Maternal Grandmother DM (diabetes mellitus) Stroke Social History Household Members: None Housing: Unknown / Unable to assess Unable to assess alcohol history related to: Unable to respond Alcohol intake: never Patient Tobacco Use Status: Never used Tobacco e-Cigarette/Vaping Use: Never Used Second Hand Smoke Exposure: No Substance Use Type: Marijuana Advance Directives Date on File: 09/19/22 service: No Current occupational status: disabled Sexual orientation: Did not discuss. Cognitive needs: No Hearing needs: No Vision needs: Yes Review of Systems Const Denies chills and Denies fever(s) Card Reports no additional complaints and Denies syncope Resp Denies cough GI Denies abdominal pain and Denies heartburn Reports as per HPI and Denies change in libido Neuro Denies syncope Psych Denies change in libido Endo Denies change in libido Physical Exam Const General: cooperative, healthy appearing, comfortable and no acute distress Orientation/consciousness: patient oriented x3 HEENT Face and sinus: Yes normal facial exam Mouth: moist mucous membranes Neck Neck: Yes normal visual inspection, Yes full ROM and Yes trachea midline Chest Chest palpation & inspection: normal inspection of the chest Resp Effort & Inspection: normal respiratory effort, able to speak in complete sentences and no respiratory distress GI Inspection: Yes normal to inspection Back/Spine/Pelvis Cervical Spine: normal cervical lordosis Thoracic/Lumbar Spine: thoracic and lumbar spine normal to inspection Skin General skin exam: no rashes or lesions noted Neuro General: patient oriented x3, gait normal, tone normal and moves all extremities Extrem General: Yes normal to inspection and Yes capillary refill normal Office Procedures Bladder/Catheter Procedure Details: Sixteen [place] Peters catheter removed Eighteen [place] gold 5 catheter placed Clean technique [id number] of bladder tube Procedure code (CPT) selection complete Assessment & Plan Assessment & Plan (1) BPH loc w urin obs/LUTS: Code(s): N40.1 - Benign prostatic hyperplasia with lower urinary tract symptoms (2) Hypotonic neurogenic bladder: Code(s): N31.9 - Neuromuscular dysfunction of bladder, unspecified Plan Continue monthly follow-up Patient Instructions: Imaging studies, laboratory and physical exam results were discussed and reviewed in detail. No major barriers to patient understanding were identified. An opportunity to ask questions regarding the treatment plan was provided. All questions were answered. The patient expressed understanding and agreement with the above treatment plan. The patient is aware they should contact our office by phone for worsening of their current condition or the appearance of new urologic symptoms. Compliance is encouraged with any medications and followup testing that is ordered. It is a privilege to participate in the urologic care of your patient. If you have any questions or concerns regarding treatment for the above conditions, or other urologic issues, please do not hesitate to contact me. The office telephone contact is [phone]. This note is constructed using voice recognition software. While every effort has been made to ensure accuracy government documents librarian errors may have been included. Yours sincerely, Dr Sherwin Singer MD, [facility] - Urology Providers of Expert, Compassionate Care for the Genitourinary System Coding Level of Care Code Est Pt Level 3 (87260) Diagnoses BPH loc w urin obs/LUTS N40.1 Hypotonic neurogenic bladder N31.9 CPT Codes Bladder/Catheter Procedure - CPT: 30846-Yeehgi of bladder tube ([id number])
== END 2023-03-09 12:18 | disposition home or self-care (01) ==
LOC: HO.HUSH 11:28
PROVIDERS: PCP Internal Medicine; Visit Provider Urology
DX: N40.1 Benign prostatic hyperplasia with lower urinary tract symptoms (principal); N31.9 Neuromuscular dysfunction of bladder, unspecified
CPT/HCPCS: 51705; 99024

== ENCOUNTER → 2023-03-09 11:28 | Outpatient (BNVA) | payer MEDICAID, SELFPAY | PROVIDERS: PCP Internal Medicine; Visit Provider Urology | DX: Z43.5 Encounter for attention to cystostomy (principal); N31.9 Neuromuscular dysfunction of bladder, unspecified; N40.1 Benign prostatic hyperplasia with lower urinary tract symptoms; N13.8 Other obstructive and reflux uropathy | CPT/HCPCS: 51705; 99212 ==

== ENCOUNTER → 2023-04-06 10:29 | Outpatient (BNVA) | payer MEDICAID, SELFPAY | PROVIDERS: PCP Internal Medicine; Visit Provider Urology | DX: N31.9 Neuromuscular dysfunction of bladder, unspecified (principal) | CPT/HCPCS: 51705 ==

== ENCOUNTER → 2023-05-04 10:06 | Outpatient (BNVA) | payer MEDICAID, SELFPAY | PROVIDERS: PCP Internal Medicine; Visit Provider Urology | DX: N31.9 Neuromuscular dysfunction of bladder, unspecified (principal) | CPT/HCPCS: 51705 ==

== ENCOUNTER → 2023-05-25 11:13 | Outpatient (BNVA) | payer MEDICAID, SELFPAY | PROVIDERS: PCP Internal Medicine; Visit Provider Urology | DX: N31.9 Neuromuscular dysfunction of bladder, unspecified (principal) | CPT/HCPCS: 51798 ==

== ENCOUNTER 2023-07-04 11:28 | Outpatient (AMB) | payer OTHER, SELFPAY ==
--- NOTE | 2023-07-04 11:38 | A.OFFVIS_ITS ---
Intake Intake Visit Reasons: 6w/PVR Intake Note: Patient is Present for Follow Up Urology Medication: Finasteride, Tamsulosin Antibiotic Allergies: Sulfa Blood Thinners: aspirin Allergies Sulfa (Sulfonamide Antibiotics) [SULFA (SULFONAMIDE ANTIBIOTICS)] Allergy (Intermediate, Verified 01/26/23 11:19) hives HPI HPI Comments History of Present Illness Details Juan Jose is a pleasant [place]-speaking male. He is a patient Dr. Kee. He is seen the following urologic conditions - neurogenic bladder Here for review Continue with tamsulosin and finasteride Appears to have adequate emptying Suprapubic tube placed January 2023 Bladder came back online by late April 2023 Suprapubic tube removed at that point in time Lower urinary tract symptoms---- last office visit 04/19 Initial presentation [facility] for bipolar disorder management Difficulty with urine initiation and weakness of stream Concomitant diabetes with diabetic nephropathy and microalbumin urea Initiated on doxazosin Has been having retrograde ejaculation with dizziness Switched to alfuzosin [facility] Medical History (Updated 03/09/23 @ 15:31 by Sherwin Singer MD) Bipolar 1 disorder Difficulty walking Neuromuscular dysfunction of bladder PVD (peripheral vascular disease) Benign prostatic hyperplasia Hyperlipidemia Restrictive lung disease Bacteremia Foot ulcer Headache Patellofemoral arthritis of left knee Microalbuminuria Left knee pain Foot osteomyelitis, right Anemia in chronic kidney disease Right foot pain PAD (peripheral artery disease) Anemia CKD (chronic kidney disease) stage 3, GFR 30-59 ml/min CKD stage G3b/A2, GFR 30-44 and albumin creatinine ratio 30-299 mg/g Osteomyelitis Morbid obesity 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 deficiency [id number] syndrome NEEMA on CPAP Vitamin D deficiency Moderate non-proliferative diabetic retinopathy Diabetic polyneuropathy associated with type 2 diabetes mellitus Dyslipidemia CKD (chronic kidney disease) Diabetes type 2, uncontrolled Surgical History History of eye surgery S/P tooth extraction 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 Hx laparoscopic cholecystectomy Status post amputation of toe S/P cataract surgery S/P debridement History of tonsillectomy and adenoidectomy Family History Father Cerebral aneurysm CVD (cardiovascular disease) Stroke Mother DM (diabetes mellitus) Stroke Brother No problems noted. Brother No problems noted. Son No problems noted. Daughter In good health Maternal Grandmother DM (diabetes mellitus) Stroke Social History Household Members: None Housing: Unknown / Unable to assess Unable to assess alcohol history related to: Unable to respond Alcohol intake: never Patient Tobacco Use Status: Never used Tobacco e-Cigarette/Vaping Use: Never Used Second Hand Smoke Exposure: No Substance Use Type: Marijuana Advance Directives Date on File: 09/19/22 service: No Current occupational status: disabled Sexual orientation: Did not discuss. Cognitive needs: No Hearing needs: No Vision needs: Yes Review of Systems Const Denies chills and Denies fever(s) Card Reports no additional complaints and Denies syncope Resp Denies cough GI Denies abdominal pain and Denies heartburn Reports as per HPI and Denies change in libido Neuro Denies syncope Psych Denies change in libido Endo Denies change in libido Physical Exam Const General: cooperative, healthy appearing, comfortable and no acute distress Orientation/consciousness: patient oriented x3 HEENT Face and sinus: Yes normal facial exam Mouth: moist mucous membranes Neck Neck: Yes normal visual inspection, Yes full ROM and Yes trachea midline Chest Chest palpation & inspection: normal inspection of the chest Resp Effort & Inspection: normal respiratory effort, able to speak in complete sentences and no respiratory distress GI Inspection: Yes normal to inspection Back/Spine/Pelvis Cervical Spine: normal cervical lordosis Thoracic/Lumbar Spine: thoracic and lumbar spine normal to inspection Skin General skin exam: no rashes or lesions noted Neuro General: patient oriented x3, gait normal, tone normal and moves all extremities Extrem General: Yes normal to inspection and Yes capillary refill normal Assessment & Plan Assessment & Plan (1) Hypotonic neurogenic bladder: Code(s): N31.9 - Neuromuscular dysfunction of bladder, unspecified Plan Six-month follow-up PVR Patient Instructions: Imaging studies, laboratory and physical exam results were discussed and reviewed in detail. No major barriers to patient understanding were identified. An opportunity to ask questions regarding the treatment plan was provided. All questions were answered. The patient expressed understanding and agreement with the above treatment plan. The patient is aware they should contact our office by phone for worsening of t heir current condition or the appearance of new urologic symptoms. Compliance is encouraged with any medications and followup testing that is ordered. It is a privilege to participate in the urologic care of your patient. If you have any questions or concerns regarding treatment for the above conditions, or other urologic issues, please do not hesitate to contact me. The office telephone contact is [phone]. This note is constructed using voice recognition software. While every effort has been made to ensure accuracy properties supervisor errors may have been included. Yours sincerely, Dr Sherwin Singer MD, [facility] - Urology Providers of Expert, Compassionate Care for the Genitourinary System Coding Level of Care Code Est Pt Level 3 (20925) Diagnoses Hypotonic neurogenic bladder N31.9
== END 2023-07-04 12:04 | disposition home or self-care (01) ==
LOC: HO.HUSH 11:28
PROVIDERS: PCP Hospitalist; Visit Provider Urology
DX: N31.9 Neuromuscular dysfunction of bladder, unspecified (principal)
CPT/HCPCS: 99213

== ENCOUNTER → 2023-07-04 11:28 | Outpatient (BNVA) | payer OTHER, SELFPAY | PROVIDERS: PCP Hospitalist; Visit Provider Urology | DX: N31.9 Neuromuscular dysfunction of bladder, unspecified (principal) | CPT/HCPCS: 99212 ==

== ENCOUNTER 2023-07-26 12:04 | Outpatient (AMB) | payer OTHER, SELFPAY ==
[2023-07-26 12:23] VITALS: BP 122/70; BMI 29.8
--- NOTE | 2023-07-26 12:23 | A.OFFPC_ITS ---
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 Accompanied by: Self / Same As Patient Allergies Sulfa (Sulfonamide Antibiotics) [SULFA (SULFONAMIDE ANTIBIOTICS)] Allergy (Intermediate, Verified 07/26/23 12:43) hives Medication List - Last Reconciled 07/26/23 by Xochilt Singh MD acetaminophen 650 mg PO BID atorvastatin 10 mg PO DAILY bisacodyl (Dulcolax (bisacodyl)) 10 mg FL DAILY PRN blood pressure test kit-medium As directed blood sugar diagnostic (FreeStyle Test strips) Use 4 test strip once a day blood-glucose meter (FreeStyle Lite Meter kit) As directed dextrose 40% 20 grams PO Q15M PRN docusate sodium 100 mg PO BID PRN dulaglutide (Trulicity) 1.5 mg subcut MO@0900 epinephrine 0.3 mg IM Q10M PRN ergocalciferol (vitamin D2) (Vitamin D2) 1,250 mcg PO TU@0900 ferrous sulfate (FeroSul) 325 mg PO DAILY finasteride 5 mg PO DAILY 90 days glucagon 1 mg IM Q20M PRN Lactobacillus acidophilus 1,000 mmu cells PO BID magnesium hydroxide (Kendrick Milk of Magnesia) 30 mL PO DAILY PRN midodrine 10 mg PO TID mirtazapine 15 mg PO BEDTIME polyethylene glycol 3350 (Miralax) 17 grams PO DAILY PRN [raised toilet seat As directed] sodium phosphates 19-7 gram/118 mL (Fleet Enema) 118 mL FL DAILY PRN tamsulosin 0.4 mg PO BEDTIME 90 days [tub seat As directed] [wheelchair electric As directed] Tobacco use date assessed: 07/26/23 Dental Screening Dental Screen Date: 07/26/23 Did you have a dental visit in the last 12 months?: Yes Did you have a dental problem in the last 6 months where you did not have access to dental care?: No Was dental information given to patient?: Patient has dentist HPI HPI Comments History of Present Illness Details This is a 58-year-old male with diabetes mellitus type 2, schizoaffective disorder bipolar type, chronic kidney disease stage 3, anemia in chronic kidney disease and dyslipidemia that comes today for hospital discharge follow-up from ago 1 was rehab with discharge date 07/13/2022 due to a foot ulcer that completely heal. A1c elevated and I will add insulin and increase his Trulicity. He does not take his blood glucose at home. Schizoaffective disorder has been stable. Lipid panel will be order and his LDL goal should be less than 70. Chronic kidney disease will be evaluated as well as anemia. He is aware he has to avoid NSAIDs. Denies any active bleeding. No chest pain or shortness of breath. Able to walk with no assistive device. 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 Brother No problems noted. Son No problems noted. Daughter In good health Maternal Grandmother DM (diabetes mellitus) Stroke Social History Household Members: None Housing: Unknown / Unable to assess Unable to assess alcohol history related to: Unable to respond Alcohol intake: never Patient Tobacco Use Status: Never used Tobacco e-Cigarette/Vaping Use: Never Used Second Hand Smoke Exposure: No Substance Use Type: Marijuana Advance Directives Date on File: 09/19/22 service: No Current occupational status: disabled Sexual orientation: Did not discuss. Cognitive needs: No Hearing needs: No Vision needs: Yes Questionnaire PHQ-9 Over the last 2 weeks, how often have you been bothered by any of the following problems? 1. Little interest or pleasure in doing things: several days 2. Feeling down, depressed, or hopeless: several days 3. Trouble falling or staying asleep, or sleeping too much: not at all 4. Feeling tired or having little energy: several days 5. Poor appetite or overeating: several days 6. Feeling bad about yourself - or that you are a failure or have let yourself or your family down: not at all 7. Trouble concentrating on things, such as reading the newspaper or watching television: not at all 8. Moving or speaking so slowly that other people could have noticed. Or the opposite - being so fidgety or restless that you have been moving around a lot more than usual: not at all 9. Thoughts that you would be better off or of hurting yourself in some way: not at all Total score: 4 Depression Screening Interpretation: Negative Depression Screening Done: Yes 27794 - PHQ-9 Billing: Yes Source: Developed by Drs. Glenn Pritchard, Vanessa Hernandez, Jules Sims and colleagues, with an educational darlin from [employer]. Thrive Questionnaire Date Thrive assessed: 07/26/23 I am a: Patient What is your living situation today?: I have a steady place to live Within the past 12 months, did the food you bought not last and you didn't have the money to get more?: Never true Within the past 12 months, did you worry whether your food would run out before you got money to buy more?: Never true Do you have trouble paying for medicines?: No Do you have trouble getting transportation to medical appointments?: No Do you have trouble paying your heating and electricity bill?: No Do you have trouble taking care of your child, family member or friend?: No Do you have trouble with day-to-day activities such as bathing, preparing meals, shopping, managing finances, etc.?: No Are you currently unemployed and looking for a job?: No Are you interested in more education?: No Please select the resources that you would like help with: None Currently or been in a relationship where the following occur: no concerns reported THRIVE Score: 0 AUDIT C Alcohol Use Questionnaire (AUDIT-C) 1. How often do you have a drink containing alcohol?: Never Total Score: 0 MELISA-7 AMB Questionnaire MELISA-7 Date MELISA - 7 assessed: 07/26/23 Feeling nervous, anxious, or on edge: 1 = Several days Not being able to stop or control worryin = Not at all Worrying too much about different things: 0 = Not at all Trouble relaxin = Not at all Being so restless that it is hard to sit still: 0 = Not at all Becoming easily annoyed or irritable: 0 = Not at all Feeling afraid as if something awful might happen: 0 = Not at all Total MELISA-7 score (0-4 normal; 5-9 mild; 10-14 moderate; 15-21 severe): 1 Source: Developed by Drs. Glenn Pritchard, Vanessa Hernandez, Jules Sims and colleagues, with an educational darlin from [employer]. MELISA-7 Assessment Billing MELISA-7 Assessment Tool: MELISA-7 Assessment 20056 Review of Systems Const All systems reviewed & are unremarkable except as noted in HPI and below Eyes Reports no additional complaints, Denies change in vision and Denies other visual disturbances Card Denies chest pain at rest, Denies chest pain with activity, Denies edema, Denies irregular heart rhythm, Denies claudication, Denies dyspnea, Denies dyspnea on exertion, Denies orthopnea, Denies paroxysmal nocturnal dyspnea and Denies slow heart rate Resp Denies cough, Denies dyspnea and Denies dyspnea on exertion GI Denies abdominal pain, Denies change in bowel habits, Denies excessive flatus, Denies nausea and Denies vomiting Denies urinary hesitancy, Denies urinary incontinence and Denies urinary urgency Musc Denies abnormal gait, Denies atrophy, Denies deformity and Denies limited range of motion Skin/Breast Denies bleeding lesions, Denies changing lesions and Denies rash Neuro Denies abnormal gait and Denies lack of coordination Physical exam (Primary Care) Vital Signs: Last Vital Signs BP 122/70 07/26/23 12:23 BMI result Body Mass Index 29.8 Tobacco/Smoking Status: Tobacco use Status Tobacco use date assessed 07/26/23 07/26/23 12:36 Patient Tobacco Use Status Never used Tobacco 07/26/23 12:25 e-Cigarette/Vaping Use Never Used 07/26/23 12:25 PHQ-9: PHQ-9 Score PHQ-9: Total score 4 07/26/23 12:40 Depression Screening Interpretation: Negative Thrive Assessment: Date of Thrive Assessment Date Thrive assessed 07/26/23 07/26/23 12:40 Currently or been in a relationship where the following occur: no concerns reported Eyes General: appearance normal, both eyes and all related structures Eyelids: Yes eyelids normal Conjunctivae: conjunctivae normal Neck Neck: Yes normal visual inspection and Yes supple Resp Effort & Inspection: normal respiratory effort Auscultation: clear to auscultation bilaterally Cardio Jugular venous distension: no JVD Rate: regular rate Rhythm: regular rhythm Heart sounds: S1 normal heart sound present and S2 normal heart sound present Extrem General: Yes full ROM Results AMB Hemoglobin A1c AMB Hemoglobin A1c 12.8 % Last Edit by FREDDIE Valladares on 07/26/23 12: 38 Results Reviewed Results Reviewed: Laboratory Last Values Hgb A1c (Clinic) 12.8 % (4.0-6.0) H 07/26/23 12:37 Assessment and Plan Assessment & Plan (1) Hospital discharge follow-up: Code(s): Z09 - Encounter for follow-up examination after completed treatment for conditions other than malignant neoplasm Plan: Discharge from [facility] 07/13/2023 due to a foot ulcer that healed. Patient developed low blood pressure while in the rehab. Currently in no antihypertensives. 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 Increase Trulicity. A1c goal is equal or less than 7%. (3) Schizoaffective disorder, bipolar type: Code(s): F25.0 - Schizoaffective disorder, bipolar type Plan: In remission. Follow-up with psychiatry. (4) Anemia in chronic kidney disease: Code(s): N18.9 - Chronic kidney disease, unspecified; D63.1 - Anemia in chronic kidney disease Plan: Repeat CBC. (5) Foot ulcer: Code(s): L97.509 - Non-pressure chronic ulcer of other part of unspecified foot with un specified severity Plan: Completely healed. (6) Dyslipidemia: Code(s): E78.5 - Hyperlipidemia, unspecified Plan: Repeat lipid panel. LDL goal is less than 70. (7) CKD (chronic kidney disease) stage 3, GFR 30-59 ml/min: Code(s): N18.30 - Chronic kidney disease, stage 3 unspecified Plan: Avoid NSAIDs. Orders: Orders Lipid Panel Today E78.5 - Hyperlipidemia, unspecified Microalbumin, Random (w Creat) Today E11.9 - Type 2 diabetes mellitus without complications Complete Blood Count Auto Diff Today D64.9 - Anemia, unspecified Comprehensive Blunt. Panel Fast Today E78.5 - Hyperlipidemia, unspecified AMB Hemoglobin A1c Today E11.9 - Type 2 diabetes mellitus without complications Vitamin D 25-OH Total Today E55.9 - Vitamin D deficiency, unspecified Vitamin B12 and Folate Today E53.8 - Deficiency of other specified B group vitamins IRON PROFILE Today D64.9 - Anemia, unspecified Medications: New insulin glargine (Lantus Solostar U-100 Insulin) 5 units (0.05 mL) subcut QPM 90 days 4.5 mL 1RF E11.9 - Type 2 diabetes mellitus without complications pen needle, diabetic (BD Ultra-Fine Short Pen Needle) As directed 90 ea 1RF E11.9 - Type 2 diabetes mellitus without complications dulaglutide (Trulicity) 3 mg (0.5 mL) subcut QWEEK 90 days 6.5 mL 1RF E11.9 - Type 2 diabetes mellitus without complications Coding Level of Care Code TCM Mod MDM <= 14 Days Diagnoses Hospital discharge follow-up Z09 Type 2 diabetes mellitus with hyperglycemia, with long-term current use of insulin E11.65; Z79.4 Diabetes mellitus type: type 2 Diabetes mellitus senior living insulin use: with middle or intermediate school principal use Diabetes mellitus complication status: with hyperglycemia Schizoaffective disorder, bipolar type F25.0 Anemia in chronic kidney disease N18.9; D63.1 Foot ulcer L97.509 Dyslipidemia E78.5 CKD (chronic kidney disease) stage 3, GFR 30-59 ml/min N18.30 Additional Codes MELISA-7 Assessment Billing - MELISA-7 Assessment Tool: MELISA-7 Assessment 41710 ([id number]) Time Spent (min) 24
== END 2023-07-26 12:54 | disposition home or self-care (01) ==
PROVIDERS: PCP Internal Medicine; Visit Provider Internal Medicine
DX: E11.65 Type 2 diabetes mellitus with hyperglycemia (principal); Z79.4 Long term (current) use of insulin; F25.0 Schizoaffective disorder, bipolar type; N18.30 Chronic kidney disease, stage 3 unspecified; L97.509 Non-pressure chronic ulcer of other part of unspecified foot with unspecified severity; E11.22 Type 2 diabetes mellitus with diabetic chronic kidney disease; Z09 Encounter for follow-up examination after completed treatment for conditions other than malignant neoplasm; D63.1 Anemia in chronic kidney disease; E78.5 Hyperlipidemia, unspecified
CPT/HCPCS: 83036; 99214

== ENCOUNTER 2023-08-04 08:25 | Outpatient (REF) | payer OTHER, SELFPAY ==
[2023-08-04 08:57] LABS: MANUAL DIFF FLAG NO
[2023-08-04 09:10] LABS: Basophils Absolute Auto 0.1 X10*3/uL (0.0-0.2); Basophils Percent Auto 0.7 % (0-2); Eosinophils Absolute Auto 0.4 X10*3/uL (0.0-0.4); Eosinophils Percent Auto 4.3 % (0-4); Hematocrit 38.1 % (42.0-52.0); Hemoglobin 12.3 g/dl (14.0-18.0); Imm Gran Abs Auto 0.03 X10*3/uL (0.00-0.03); Imm Gran Pct Auto 0.3 % (0.0-0.4); Lymphocytes Absolute Auto 2.4 X10*3/uL (1.2-4.9); Lymphocytes Percent Auto 24.1 % (20-40); Mean Corpuscular HGB Conc 32.3 g/dl (31.0-36.0); Mean Corpuscular Hemoglobin 29.1 pg (27.0-33.0); Mean Corpuscular Volume 90.3 fL (80.0-98.0); Mean Platelet Volume 9.2 fL (9.4-12.4); Monocytes Absolute Auto 0.7 X10*3/uL (0.1-1.2); Monocytes Percent Auto 7.1 % (2-11); Neutrophils Absolute Auto 6.2 x10*3/uL (2.0-8.3); Neutrophils Percent Auto 63.5 % (45-73); Platelet Count 396 X10*3/uL (160-400); Red Blood Count 4.22 X10*6/uL (4.60-5.80); Red Cell Distribution Width 15.9 % (11.0-16.0); White Blood Count 9.8 X10*3/uL (4.8-10.8)
[2023-08-04 09:42] LABS: Alanine Aminotransferase 57 U/L (0-40); Albumin Level 3.6 g/dL (3.5-5.0); Alkaline Phosphatase 83 U/L (39-117); Anion Gap 12 (12-20); Aspartate Amino Transferase 27 U/L (5-37); Bilirubin Total 0.5 mg/dL (0.0-1.0); Blood Urea Nitrogen 44 mg/dL (9-16); Calcium 8.6 mg/dL (8.4-10.2); Carbon Dioxide 24 mmol/L (22-29); Chloride 110 mmol/L (96-108); Cholesterol 100 mg/dL (<200); Estimated Glomerular Filt Rate 51; Glucose Fasting 297 mg/dL (60-99); HDL Cholesterol 22 mg/dL (>40); Iron 71 mcg/dL (45-160); LDL Cholesterol Calculated 51 mg/dL (<100); Percent Iron Saturation 33 % (15-50); Potassium 4.6 mmol/L (3.3-5.1); Sodium 141 mmol/L (135-145); Total Iron Binding Capacity 214 mcg/dL (228-428); Triglycerides 137 mg/dL (<150); Unsaturated Iron Binding 143 ug/dL
[2023-08-04 10:01] LABS: Vitamin D 25-OH Total 16.9 ng/mL (>30)
[2023-08-04 10:09] LABS: Folate 12.5 ng/mL (> or = 4.0); Vitamin B12 474 pg/mL (200-900)
[2023-08-04 11:21] LABS: Creatinine Urine 95.74 mg/dL
== END 2023-08-04 08:26 | disposition home or self-care (01) ==
LOC: HO.LAB 08:25
PROVIDERS: PCP Internal Medicine; Visit Provider Internal Medicine
DX: E55.9 Vitamin D deficiency, unspecified (principal); E53.8 Deficiency of other specified B group vitamins; E78.5 Hyperlipidemia, unspecified; D64.9 Anemia, unspecified; E11.9 Type 2 diabetes mellitus without complications
CPT/HCPCS: 36415; 80053; 80061; 82043; 82306; 82570; 82607; 82746; 83540; 85025

== ENCOUNTER 2023-09-04 08:35 | Outpatient (REF) | payer OTHER, SELFPAY ==
[2023-09-04 08:45] LABS: MANUAL DIFF FLAG NO
[2023-09-04 09:03] LABS: Basophils Percent Auto 0.4 % (0-2); Eosinophils Absolute Auto 0.4 X10*3/uL (0.0-0.4); Eosinophils Percent Auto 3.7 % (0-4); Hematocrit 39.3 % (42.0-52.0); Hemoglobin 12.7 g/dl (14.0-18.0); Imm Gran Abs Auto 0.04 X10*3/uL (0.00-0.03); Imm Gran Pct Auto 0.4 % (0.0-0.4); Lymphocytes Absolute Auto 1.7 X10*3/uL (1.2-4.9); Lymphocytes Percent Auto 16.9 % (20-40); Mean Corpuscular HGB Conc 32.3 g/dl (31.0-36.0); Mean Corpuscular Hemoglobin 29.5 pg (27.0-33.0); Mean Corpuscular Volume 91.2 fL (80.0-98.0); Mean Platelet Volume 9.2 fL (9.4-12.4); Monocytes Absolute Auto 1.4 X10*3/uL (0.1-1.2); Monocytes Percent Auto 14.3 % (2-11); Neutrophils Absolute Auto 6.4 x10*3/uL (2.0-8.3); Neutrophils Percent Auto 64.3 % (45-73); Platelet Count 321 X10*3/uL (160-400); Red Blood Count 4.31 X10*6/uL (4.60-5.80); Red Cell Distribution Width 15.7 % (11.0-16.0)
[2023-09-04 09:24] LABS: Alanine Aminotransferase 68 U/L (0-40); Albumin Level 3.5 g/dL (3.5-5.0); Alkaline Phosphatase 95 U/L (39-117); Anion Gap 10 (12-20); Aspartate Amino Transferase 20 U/L (5-37); Bilirubin Total 0.6 mg/dL (0.0-1.0); Blood Urea Nitrogen 27 mg/dL (9-16); Carbon Dioxide 24 mmol/L (22-29); Chloride 110 mmol/L (96-108); Cholesterol 98 mg/dL (<200); Estimated Glomerular Filt Rate 50; Glucose Fasting 234 mg/dL (60-99); HDL Cholesterol 32 mg/dL (>40); Iron 38 mcg/dL (45-160); LDL Cholesterol Calculated 45 mg/dL (<100); Percent Iron Saturation 19 % (15-50); Potassium 4.4 mmol/L (3.3-5.1); Sodium 140 mmol/L (135-145); Total Iron Binding Capacity 195 mcg/dL (228-428); Total Protein 7.2 g/dL (6.5-8.0); Triglycerides 107 mg/dL (<150); Unsaturated Iron Binding 157 ug/dL
[2023-09-04 09:41] LABS: Prostate Specific Antigen < 0.10 ng/mL (<0.05-4.0)
[2023-09-04 09:46] LABS: Vitamin D 25-OH Total 14.7 ng/mL (>30)
[2023-09-04 10:08] LABS: Creatinine Urine 144.13 mg/dL
[2023-09-04 10:27] LABS: Microalbum/Creatinine Ratio Ur 1387.6 ug/mg cr (<30); Microalbumin Urine > 2000.0 mg/L
== END 2023-09-04 08:36 | disposition home or self-care (01) ==
LOC: HO.LAB 08:35
PROVIDERS: Absent Provider Urology; PCP Internal Medicine; Visit Provider Internal Medicine
DX: N40.1 Benign prostatic hyperplasia with lower urinary tract symptoms (principal); E55.9 Vitamin D deficiency, unspecified; E11.9 Type 2 diabetes mellitus without complications; D64.9 Anemia, unspecified; E78.5 Hyperlipidemia, unspecified; N18.30 Chronic kidney disease, stage 3 unspecified
CPT/HCPCS: 36415; 80053; 80061; 82043; 82306; 82570; 83540; 84153; 85025

== ENCOUNTER 2023-09-08 10:20 | Outpatient (AMB) | payer MEDICAID, SELFPAY ==
--- NOTE | 2023-09-08 10:24 | MHC.OFFVIS ---
Intake Intake Visit Reasons: 6M PSA(set)Confirmed Intake Note: Patient is Present for Follow Up Urology Medication: Finasteride, Tamsulosin, Antibiotic Allergies: Sulfa Blood Thinners: None Allergies Sulfa (Sulfonamide Antibiotics) [SULFA (SULFONAMIDE ANTIBIOTICS)] Allergy (Intermediate, Verified 09/08/23 10:27) hives HPI HPI Comments History of Present Illness Details Juan Jose is a pleasant Irish-speaking male. He is a patient Dr. Kee. He is seen the following urologic conditions - neurogenic bladder Here for review Continue with tamsulosin and finasteride Appears to have adequate emptying Nocturia x1 Effective stream Happy with emptying Suprapubic tube placed January 2023 Bladder came back online by late April 2023 Suprapubic tube removed at that point in time Lower urinary tract symptoms Initial presentation [facility] bipolar disorder management Difficulty with urine initiation and weakness of stream Concomitant diabetes with diabetic nephropathy and microalbumin urea Prior medications doxazosin - had retrograde ejaculation dizziness, switched to alfuzosin [facility] Medical History Bipolar 1 disorder Difficulty walking Neuromuscular dysfunction of bladder PVD (peripheral vascular disease) Benign prostatic hyperplasia Hyperlipidemia Restrictive lung disease Bacteremia Foot ulcer Headache Patellofemoral arthritis of left knee Microalbuminuria Left knee pain Foot osteomyelitis, right Anemia in chronic kidney disease Right foot pain PAD (peripheral artery disease) Anemia CKD (chronic kidney disease) stage 3, GFR 30-59 ml/min CKD stage G3b/A2, GFR 30-44 and albumin creatinine ratio 30-299 mg/g Osteomyelitis Morbid obesity 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 deficiency [id number] syndrome NEEMA on CPAP Vitamin D deficiency Moderate non-proliferative diabetic retinopathy Diabetic polyneuropathy associated with type 2 diabetes mellitus Dyslipidemia CKD (chronic kidney disease) Diabetes type 2, uncontrolled Surgical History History of eye surgery S/P tooth extraction 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 Hx laparoscopic cholecystectomy Status post amputation of toe S/P cataract surgery S/P debridement History of tonsillectomy and adenoidectomy Family History Father Cerebral aneurysm CVD (cardiovascular disease) Stroke Mother DM (diabetes mellitus) Stroke Brother No problems noted. Brother No problems noted. Son No problems noted. Daughter In good health Maternal Grandmother DM (diabetes mellitus) Stroke Social History Household Members: None Housing: Unknown / Unable to assess Unable to assess alcohol history related to: Unable to respond Alcohol intake: never Patient Tobacco Use Status: Never used Tobacco e-Cigarette/Vaping Use: Never Used Second Hand Smoke Exposure: No Substance Use Type: Marijuana Advance Directives Date on File: 09/19/22 service: No Current occupational status: disabled Sexual orientation: Did not discuss. Cognitive needs: No Hearing needs: No Vision needs: Yes Review of Systems Const Denies chills and Denies fever(s) Card Reports no additional complaints and Denies syncope Resp Denies cough GI Denies abdominal pain and Denies heartburn Reports as per HPI and Denies change in libido Neuro Denies syncope Psych Denies change in libido Endo Denies change in libido Physical Exam Const General: cooperative, healthy appearing, comfortable and no acute distress Orientation/consciousness: patient oriented x3 HEENT Face and sinus: Yes normal facial exam Mouth: moist mucous membranes Neck Neck: Yes normal visual inspection, Yes full ROM and Yes trachea midline Chest Chest palpation & inspection: normal inspection of the chest Resp Effort & Inspection: normal respiratory effort, able to speak in complete sentences and no respiratory distress GI Inspection: Yes normal to inspection Back/Spine/Pelvis Cervical Spine: normal cervical lordosis Thoracic/Lumbar Spine: thoracic and lumbar spine normal to inspection Skin General skin exam: no rashes or lesions noted Neuro General: patient oriented x3, gait normal, tone normal and moves all extremities Extrem General: Yes normal to inspection and Yes capillary refill normal Assessment & Plan Assessment & Plan (1) Hypotonic neurogenic bladder: Code(s): N31.9 - Neuromuscular dysfunction of bladder, unspecified (2) BPH loc w urin obs/LUTS: Code(s): N40.1 - Benign prostatic hyperplasia with lower urinary tract symptoms (3) Weak urinary stream: Code(s): R39.12 - Poor urinary stream Plan Six-month follow-up PVR Patient Instructions: Imaging studies, laboratory and physical exam results were discussed and reviewed in detail. No major barriers to patient understanding were identified. An opportunity to ask questions regarding the treatment plan was provided. All questions were answered. The patient expressed understanding and agreement with the above treatment plan. The patient is aware they should contact our office by phone for worsening of their current condition or the appearance of new urologic symptoms. Compliance is encouraged with any medications and followup testing that is ordered. It is a privilege to participate in the urologic care of your patient. If you have any questions or concerns regarding treatment for the above conditions, or other urologic issues, please do not hesitate to contact me. The office telephone contact is [phone]. This note is constructed using voice recognition software. While every effort has been made to ensure accuracy electro winning operator errors may have been included. Yours sincerely, Dr Sherwin Singer MD, [facility] - Urology Providers of Expert, Compassionate Care for the Genitourinary System Coding Level of Care Code Est Pt Level 3 (32474) Diagnoses Hypotonic neurogenic bladder N31.9 BPH loc w urin obs/LUTS N40.1 Weak urinary stream R39.12
== END 2023-09-08 10:48 | disposition home or self-care (01) ==
PROVIDERS: PCP Internal Medicine; Visit Provider Urology
DX: N31.9 Neuromuscular dysfunction of bladder, unspecified (principal); N40.1 Benign prostatic hyperplasia with lower urinary tract symptoms; R39.12 Poor urinary stream
CPT/HCPCS: 99213

== ENCOUNTER → 2023-09-08 10:20 | Outpatient (BNVA) | payer OTHER, SELFPAY | PROVIDERS: PCP Internal Medicine; Visit Provider Urology | DX: N40.1 Benign prostatic hyperplasia with lower urinary tract symptoms (principal); N31.9 Neuromuscular dysfunction of bladder, unspecified; R39.12 Poor urinary stream | CPT/HCPCS: 99212 ==

== ENCOUNTER 2023-11-29 10:35 | Outpatient (AMB) | payer OTHER, SELFPAY ==
--- NOTE | 2023-11-29 10:41 | MHC.PC.OV ---
Vital Signs 11/29/23 10:42 Height 5 ft 5 in Weight 196 lb 6 oz BMI 32.7 BP 118/66 Blood Pressure Location Lt brachial Position Sitting Pulse 69 Pulse Source Pulse Oximeter Pulse Oximetry (%) 98 Oxygen Delivery Method Room Air Intake Visit Reasons: DM - NEEDS A1C Workers' Compensation Magistrate Required: No Accompanied by: Self / Same As Patient Allergies Sulfa (Sulfonamide Antibiotics) [SULFA (SULFONAMIDE ANTIBIOTICS)] Allergy (Intermediate, Verified 11/29/23 11:01) hives Medication List - Last Reconciled 11/29/23 by Xochilt Singh MD acetaminophen 650 mg (2 x 325 mg) PO BID 30 days atorvastatin 10 mg PO DAILY bisacodyl (Dulcolax (bisacodyl)) 10 mg [place] DAILY PRN blood pressure test kit-medium As directed blood sugar diagnostic (FreeStyle Test strips) Use 4 test strip once a day blood-glucose meter (FreeStyle Lite Meter kit) As directed dextrose 40% 20 grams PO Q15M PRN docusate sodium 100 mg PO BID PRN dulaglutide (Trulicity) 3 mg (0.5 mL) subcut QWEEK 90 days epinephrine 0.3 mg IM Q10M PRN ergocalciferol (vitamin D2) (Vitamin D2) 1,250 mcg PO QWEEK 90 days ferrous sulfate (FeroSul) 325 mg PO DAILY 30 days finasteride 5 mg PO DAILY 90 days glucagon 1 mg IM Q20M PRN insulin glargine (Lantus Solostar U-100 Insulin) 5 units (0.05 mL) subcut QPM 90 days Lactobacillus acidophilus 1,000 mmu cells PO BID 30 days magnesium hydroxide (Kendrick Milk of Magnesia) 30 mL PO DAILY PRN midodrine 10 mg PO TID mirtazapine 15 mg PO BEDTIME 90 days pen needle, diabetic (BD Ultra-Fine Short Pen Needle) As directed polyethylene glycol 3350 (Miralax) 17 grams PO DAILY PRN [raised toilet seat As directed] sodium phosphates 19-7 gram/118 mL (Fleet Enema) 118 mL [place] DAILY PRN tamsulosin 0.4 mg PO BEDTIME 90 days [tub seat As directed] walker (Ultra-Light Rollator misc) As directed [wheelchair electric As directed] Tobacco use date assessed: 07/26/23 Dental Screening Dental Screen Date: 07/26/23 HPI HPI Comments History of Present Illness Details This is a 58-year-old male with diabetes mellitus type 2 with hyperglycemia long-term current use of insulin, hypotension, hyperlipidemia and bipolar disorder schizoaffective disorder that comes today for follow-up on his conditions. A1c elevated but has improved. Complains of increase in appetite and I will replace Trulicity with Ozempic. He does follows with endocrinology and has an insulin pump at the moment. Blood pressure stable. LDL within goal. Bipolar disorder well controlled with medications and follow by Psychiatry. [facility] Medical History (Updated 11/29/23 @ 11:14 by Xochilt Singh MD) Hypertension Osteomyelitis Bipolar 1 disorder Difficulty walking Neuromuscular dysfunction of bladder PVD (peripheral vascular disease) Benign prostatic hyperplasia Hyperlipidemia Restrictive lung disease Bacteremia Foot ulcer Headache Patellofemoral arthritis of left knee Microalbuminuria Left knee pain Foot osteomyelitis, right Anemia in chronic kidney disease Right foot pain PAD (peripheral artery disease) Anemia CKD (chronic kidney disease) stage 3, GFR 30-59 ml/min CKD stage G3b/A2, GFR 30-44 and albumin creatinine ratio 30-299 mg/g Osteomyelitis Morbid obesity 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 deficiency 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 Brother No problems noted. Son No problems noted. Daughter In good health Maternal Grandmother DM (diabetes mellitus) Stroke Social History Household Members: None Housing: Unknown / Unable to assess Unable to assess alcohol history related to: Unable to respond Alcohol intake: never Patient Tobacco Use Status: Never used Tobacco e-Cigarette/Vaping Use: Never Used Second Hand Smoke Exposure: No Substance Use Type: Marijuana Advance Directives Date on File: 09/19/22 service: No Current occupational status: disabled Sexual orientation: Did not discuss. Cognitive needs: No Hearing needs: No Vision needs: Yes Questionnaire Thrive Questionnaire Date Thrive assessed: 07/26/23 MELISA-7 AMB Questionnaire MELISA-7 Date MELISA - 7 assessed: 07/26/23 Source: Developed by Drs. Glenn Pritchard, Vanessa Hernandez, Jules Sims and colleagues, with an educational darlin from [employer]. Review of Systems Const All systems reviewed & are unremarkable except as noted in HPI and below Card Denies chest pain at rest, Denies chest pain with activity, Denies edema, Denies irregular heart rhythm, Denies claudication, Denies dyspnea, Denies dyspnea on exertion, Denies orthopnea, Denies paroxysmal nocturnal dyspnea and Denies slow heart rate Resp Denies cough, Denies dyspnea and Denies dyspnea on exertion Musc Denies abnormal gait, Denies atrophy, Denies deformity and Denies limited range of motion Skin/Breast Denies bleeding lesions, Denies changing lesions and Denies rash Neuro Denies abnormal gait and Denies lack of coordination Physical exam (Primary Care) Vital Signs: Last Vital Signs Pulse 69 11/29/23 10:42 BP 118/66 11/29/23 10:42 Pulse Ox 98 11/29/23 10:42 Oxygen Delivery Method Room Air 11/29/23 10:42 BMI result Body Mass Index 32.7 Tobacco/Smoking Status: Tobacco use Status Tobacco use date assessed 07/26/23 11/29/23 10:41 Patient Tobacco Use Status Never used Tobacco 11/29/23 10:41 e-Cigarette/Vaping Use Never Used 11/29/23 10:41 Thrive Assessment: Date of Thrive Assessment Date Thrive assessed 07/26/23 11/29/23 10:41 Resp Effort & Inspection: normal respiratory effort Auscultation: clear to auscultation bilaterally Cardio Jugular venous distension: no JVD Rate: regular rate Rhythm: regular rhythm Heart sounds: S1 normal heart sound present and S2 normal heart sound present Extrem General: Yes full ROM Results AMB Hemoglobin A1c AMB Hemoglobin A1c 7.9 % Last Edit by MILTON Horvath on 11/29/23 10:53 Results Reviewed Results Reviewed: Laboratory Last Values Hgb A1c (Clinic) 7.9 % (4.0-6.0) H 11/29/23 10:49 Assessment and Plan Assessment & Plan (1) Diabetes mellitus with hyperglycemia, with long-term current use of insulin: Code(s): E11.65 - Type 2 diabetes mellitus with hyperglycemia; Z79.4 - half-way (current) use of insulin Plan: Continue insulin pump. Discontinue Trulicity. Start Ozempic. A1c goal is equal or less than 7%. (2) Schizoaffective disorder, bipolar type: Code(s): F25.0 - Schizoaffective disorder, bipolar type Plan: Continue mirtazapine. Follow-up with psychiatry. (3) Hyperlipidemia LDL goal <70: Code(s): E78.5 - Hyperlipidemia, unspecified Plan: Continue statins. LDL goal less than 70. (4) Idiopathic hypotension: Code(s): I95.0 - Idiopathic hypotension Plan: Continue midodrine. Orders: Orders AMB Hemoglobin A1c Today E11.65 - Type 2 diabetes mellitus with hyperglycemia, Z79.4 - half-way (current) use of insulin Vitamin D 25-OH Total 4 Months E55.9 - Vitamin D deficiency, unspecified Lipid Panel 4 Months E78.5 - Hyperlipidemia, unspecified Microalbumin, Random (w Creat) 4 Months E11.9 - Type 2 diabetes mellitus without complications Comprehensive [place]. Panel Fast 4 Months E78.5 - Hyperlipidemia, unspecified Medications: New semaglutide (Ozempic) for 4 weeks 0.25 mg (0.368 mL) subcut QWEEK 4 weeks 1.472 mL 0RF E11.65 - Type 2 diabetes mellitus with hyperglycemia, Z79.4 - half-way (current) use of insulin [compression stockings knee high] As directed 1 ea 2RF I89.0 - Lymphedema, not elsewhere classified Discontinued insulin glargine (Lantus Solostar U-100 Insulin) Discontinued Reason: Patient Completed Course 5 units (0.05 mL) subcut QPM 90 days 4.5 mL 1RF E11.9 - Type 2 diabetes mellitus without complications dulaglutide (Trulicity) Discontinued Reason: Patient Completed Course 3 mg (0.5 mL) subcut QWEEK 90 days 6.5 mL 1RF E11.9 - Type 2 diabetes mellitus without complications Coding Level of Care Code Est Pt Level 4 (74954) Complex EM visit Add On G2211 Diagnoses Diabetes mellitus with hyperglycemia, with long-term current use of insulin E11.65; Z79.4 Schizoaffective disorder, bipolar type F25.0 Hyperlipidemia LDL goal <70 E78.5 Idiopathic hypotension I95.0 Time Spent (min) 23
[2023-11-29 10:42] VITALS: BP 118/66; PULSE 69; O2SAT 98; BMI 32.7
== END 2023-11-29 11:14 | disposition home or self-care (01) ==
PROVIDERS: PCP Internal Medicine; Visit Provider Internal Medicine
DX: E11.65 Type 2 diabetes mellitus with hyperglycemia (principal); Z79.4 Long term (current) use of insulin; F25.0 Schizoaffective disorder, bipolar type; E78.5 Hyperlipidemia, unspecified; I95.0 Idiopathic hypotension
CPT/HCPCS: 83036; 99214; G2211

== ENCOUNTER 2024-01-09 11:30 | Outpatient (AMB) | payer MEDICAID, SELFPAY ==
--- NOTE | 2024-01-09 11:31 | MHC.OFFVIS ---
Intake Visit Reasons: 6M Follow Up-PVR Intake Note: Patient presents to the office today for a 6 month follow up/PVR Urology Medication: Finasteride, Tamsulosin, Antibiotic Allergies: Sulfa Blood Thinners: None PVR:22mL Allergies Sulfa (Sulfonamide Antibiotics) [SULFA (SULFONAMIDE ANTIBIOTICS)] Allergy (Intermediate, Verified 01/09/24 11:31) hives Medication List - Last Reconciled 01/09/24 by Sherwin Singer MD acetaminophen 650 mg (2 x 325 mg) PO BID 30 days atorvastatin 10 mg PO DAILY bisacodyl (Dulcolax (bisacodyl)) 10 mg [place] DAILY PRN blood pressure test kit-medium As directed blood sugar diagnostic (FreeStyle Test strips) Use 4 test strip once a day blood-glucose meter (FreeStyle Lite Meter kit) As directed [compression stockings knee high As directed] dextrose 40% 20 grams PO Q15M PRN docusate sodium 100 mg PO BID PRN empagliflozin (Jardiance) 25 mg PO DAILY epinephrine 0.3 mg IM Q10M PRN ergocalciferol (vitamin D2) (Vitamin D2) 1,250 mcg PO QWEEK 90 days ferrous sulfate (FeroSul) 325 mg PO DAILY 30 days finasteride 5 mg PO DAILY 90 days glucagon 1 mg IM Q20M PRN Lactobacillus acidophilus 1,000 mmu cells PO BID 30 days magnesium hydroxide (Kendrick Milk of Magnesia) 30 mL PO DAILY PRN midodrine 10 mg PO TID mirtazapine 15 mg PO BEDTIME 90 days pen needle, diabetic (BD Ultra-Fine Short Pen Needle) As directed polyethylene glycol 3350 (Miralax) 17 grams PO DAILY PRN [raised toilet seat As directed] semaglutide (Ozempic) 0.25 mg (0.368 mL) subcut QWEEK 4 weeks sodium phosphates 19-7 gram/118 mL (Fleet Enema) 118 mL [place] DAILY PRN [tub seat As directed] walker (Ultra-Light Rollator misc) As directed [wheelchair electric As directed] HPI Comments Details: Juan Jose is a pleasant [place]-speaking male. He is a patient Dr. Kee. He is seen the following urologic conditions - neurogenic bladder Three-month follow-up from retention Continues with tamsulosin and finasteride PVR 22 cc Six-month follow-up Suprapubic tube placed January 2023 Bladder came back online by late April 2023 Suprapubic tube removed at that point in time Lower urinary tract symptoms Initial presentation [facility] for bipolar disorder management Difficulty with urine initiation and weakness of stream Concomitant diabetes with diabetic nephropathy and microalbumin urea Prior medications doxazosin - had retrograde ejaculation dizziness, switched to alfuzosin [facility] Medical History Hypertension Osteomyelitis Bipolar 1 disorder Difficulty walking Neuromuscular dysfunction of bladder PVD (peripheral vascular disease) Benign prostatic hyperplasia Hyperlipidemia Restrictive lung disease Bacteremia Foot ulcer Headache Patellofemoral arthritis of left knee Microalbuminuria Left knee pain Foot osteomyelitis, right Anemia in chronic kidney disease Right foot pain PAD (peripheral artery disease) Anemia CKD (chronic kidney disease) stage 3, GFR 30-59 ml/min CKD stage G3b/A2, GFR 30-44 and albumin creatinine ratio 30-299 mg/g Osteomyelitis Morbid obesity 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 deficiency [id number] syndrome NEEMA on CPAP Vitamin D deficiency Moderate non-proliferative diabetic retinopathy Diabetic polyneuropathy associated with type 2 diabetes mellitus Dyslipidemia CKD (chronic kidney disease) Diabetes type 2, uncontrolled Surgical History History of eye surgery S/P tooth extraction 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 Hx laparoscopic cholecystectomy Status post amputation of toe S/P cataract surgery S/P debridement History of tonsillectomy and adenoidectomy Family History Father Cerebral aneurysm CVD (cardiovascular disease) Stroke Mother DM (diabetes mellitus) Stroke Brother No problems noted. Brother No problems noted. Son No problems noted. Daughter In good health Maternal Grandmother DM (diabetes mellitus) Stroke Social History Household Members: None Housing: Unknown / Unable to assess Unable to assess alcohol history related to: Unable to respond Alcohol intake: never Patient Tobacco Use Status: Never used Tobacco e-Cigarette/Vaping Use: Never Used Second Hand Smoke Exposure: No Substance Use Type: Marijuana Advance Directives Date on File: 09/19/22 service: No Current occupational status: disabled Sexual orientation: Did not discuss. Cognitive needs: No Hearing needs: No Vision needs: Yes Review of Systems Const Denies chills and Denies fever(s) Card Reports no additional complaints and Denies syncope Resp Denies cough GI Denies abdominal pain and Denies heartburn Reports as per HPI and Denies change in libido Neuro Denies syncope Psych Denies change in libido Endo Denies change in libido Physical Exam Const General: cooperative, healthy appearing, comfortable and no acute distress Orientation/consciousness: patient oriented x3 HEENT Face and sinus: Yes normal facial exam Mouth: moist mucous membranes Neck Neck: Yes normal visual inspection, Yes full ROM and Yes trachea midline Chest Chest palpation & inspection: normal inspection of the chest Resp Effort & Inspection: normal respiratory effort, able to speak in complete sentences and no respiratory distress GI Inspection: Yes normal to inspection Back/Spine/Pelvis Cervical Spine: normal cervical lordosis Thoracic/Lumbar Spine: thoracic and lumbar spine normal to inspection Skin General skin exam: no rashes or lesions noted Neuro General: patient oriented x3, gait normal, tone normal and moves all extremities Extrem General: Yes normal to inspection and Yes capillary refill normal Office Procedures Post Void Residual Post Residual Void Post Void Residual (PVR): 22 [id number] Void Residual by ultrasound Results AMB Urinalysis, Automated UA Leukoctes 15 Juanito/uL Last Edit by Marcy Chacko CMA on 01/09/24 11:42 UA Nitrite Negative Last Edit by Marcy Chacko CMA on 01/09/24 11:42 UA Urobilinogen 0.2 mg/dL Last Edit by Marcy Chacko CMA on 01/09/24 11:42 UA Protein 100 mg/dL Last Edit by Marcy Chacko CMA on 01/09/24 11:42 UA pH 5.0 Last Edit by Marcy Chacko CMA on 01/09/24 11:42 UA Blood 25 Lloyd/uL Last Edit by Marcy Chacko CMA on 01/09/24 11:42 UA Specific [place] 1.015 Last Edit by Marcy Chacko CMA on 01/09/24 11:42 UA Ketone Negative Last Edit by Marcy Chacko CMA on 01/09/24 11:42 UA Bilirubin 0 mg/dL Last Edit by Marcy Chacko CMA on 01/09/24 11:42 UA Glucose 1000 mg/dL Last Edit by Marcy Chacko CMA on 01/09/24 11:42 Results Reviewed Results Reviewed: Laboratory Last Values Urine pH (Auto) 5.0 01/09/24 11:40 Specific [place] (Auto) 1.015 01/09/24 11:40 Urine Protein (Auto) 100 mg/dL 01/09/24 11:40 Glucose (UA)(Auto) 1000 mg/dL 01/09/24 11:40 Urine Ketones (Auto) Negative 01/09/24 11:40 Urine Blood (Auto) 25 Lloyd/uL 01/09/24 11:40 Urine Nitrite (Auto) Negative 01/09/24 11:40 Urine Bilirubin (Auto) 0 mg/dL 01/09/24 11:40 Urine Urobilinogen (Auto) 0.2 mg/dL 01/09/24 11:40 Leukocyte Esterase (Auto) 15 Juanito/uL 01/09/24 11:40 Assessment & Plan Assessment & Plan (1) Hypotonic neurogenic bladder: Code(s): N31.9 - Neuromuscular dysfunction of bladder, unspecified Category: Medical (2) BPH loc w urin obs/LUTS: Code(s): N40.1 - Benign prostatic hyperplasia with lower urinary tract symptoms Category: Medical Plan Six-month follow-up PVR Orders: Orders AMB Urinalysis Automated 01/09/24 R33.9 - Retention of urine, unspecified AMB Post Void Residual by ultrasound 01/09/24 R39.12 - Poor urinary stream Medications: Discontinued tamsulosin Discontinued Reason: Patient Completed Course 0.4 mg PO BEDTIME 90 days 90 caps 1RF N31.9 - Neuromuscular dysfunction of bladder, unspecified Patient Instructions: Imaging studies, laboratory and physical exam results were discussed and reviewed in detail. No major barriers to patient understanding were identified. An opportunity to ask questions regarding the treatment plan was provided. All questions were answered. The patient expressed understanding and agreement with the above treatment plan. The patient is aware they should contact our office by phone for worsening of their current condition or the appearance of new urologic symptoms. Compliance is encouraged with any medications and followup testing that is ordered. It is a privilege to participate in the urologic care of your patient. If you have any questions or concerns regarding treatment for the above conditions, or other urologic issues, please do not hesitate to contact me. The office telephone contact is [phone]. This note is constructed using voice recognition software. While every effort has been made to ensure accuracy sour bleaching pleater errors may have been included. Yours sincerely, Dr Sherwin Singer MD, ALLIE [facility] - Urology Providers of Expert, Compassionate Care for the Genitourinary System Coding Level of Care Code Est Pt Level 3 (26850) Diagnoses Hypotonic neurogenic bladder N31.9 BPH loc w urin obs/LUTS N40.1 CPT Codes Post Residual Void - PVR CPT Code: 37094-Eaxv Void Residual by ultrasound ([id number])
== END 2024-01-09 12:02 | disposition home or self-care (01) ==
PROVIDERS: PCP Hospitalist; Visit Provider Urology
DX: N31.9 Neuromuscular dysfunction of bladder, unspecified (principal); N40.1 Benign prostatic hyperplasia with lower urinary tract symptoms
CPT/HCPCS: 99213

== ENCOUNTER → 2024-01-09 11:30 | Outpatient (BNVA) | payer OTHER, SELFPAY | PROVIDERS: PCP Hospitalist; Visit Provider Urology | DX: N40.1 Benign prostatic hyperplasia with lower urinary tract symptoms (principal); N31.9 Neuromuscular dysfunction of bladder, unspecified | CPT/HCPCS: 51798; 81003; 99212 ==

== ENCOUNTER 2024-02-26 07:54 | Outpatient (REF) | payer OTHER, SELFPAY ==
[2024-02-26 08:19] LABS: MANUAL DIFF FLAG NO
[2024-02-26 08:32] LABS: Basophils Absolute Auto 0.1 X10*3/uL (0.0-0.2); Basophils Percent Auto 0.4 % (0-2); Eosinophils Absolute Auto 0.3 X10*3/uL (0.0-0.4); Eosinophils Percent Auto 2.2 % (0-4); Hematocrit 43.7 % (42.0-52.0); Hemoglobin 13.8 g/dl (14.0-18.0); Imm Gran Abs Auto 0.05 X10*3/uL (0.00-0.03); Imm Gran Pct Auto 0.4 % (0.0-0.4); Lymphocytes Absolute Auto 2.2 X10*3/uL (1.2-4.9); Lymphocytes Percent Auto 18.2 % (20-40); Mean Corpuscular HGB Conc 31.6 g/dl (31.0-36.0); Mean Corpuscular Hemoglobin 28.4 pg (27.0-33.0); Mean Corpuscular Volume 89.9 fL (80.0-98.0); Mean Platelet Volume 9.1 fL (9.4-12.4); Monocytes Absolute Auto 1.3 X10*3/uL (0.1-1.2); Monocytes Percent Auto 10.4 % (2-11); Neutrophils Absolute Auto 8.3 x10*3/uL (2.0-8.3); Neutrophils Percent Auto 68.4 % (45-73); Platelet Count 356 X10*3/uL (160-400); Red Blood Count 4.86 X10*6/uL (4.60-5.80); Red Cell Distribution Width 17.5 % (11.0-16.0); White Blood Count 12.2 X10*3/uL (4.8-10.8)
[2024-02-26 08:42] LABS: Estimated Average Glucose 143 mg/dL; Hemoglobin A1C 169.3925 umol/L; Hemoglobin A1c % 6.6 % (<6.0)
[2024-02-26 09:00] LABS: Parathyroid Hormone Intact 260.5 pg/mL (8.7-77.1)
[2024-02-26 09:04] LABS: Anion Gap 11 (12-20); Blood Urea Nitrogen 56 mg/dL (9-16); Calcium 8.4 mg/dL (8.4-10.2); Carbon Dioxide 22 mmol/L (22-29); Chloride 111 mmol/L (96-108); Estimated Glomerular Filt Rate 34; Iron 68 mcg/dL (45-160); Magnesium 2.3 mg/dL (1.6-2.6); Percent Iron Saturation 28 % (15-50); Potassium 4.2 mmol/L (3.3-5.1); Sodium 140 mmol/L (135-145); Total Iron Binding Capacity 244 mcg/dL (228-428); Unsaturated Iron Binding 176 ug/dL; Uric Acid 7.6 mg/dL (3.4-7.0)
[2024-02-26 09:23] LABS: Ferritin 49 ng/mL (20-250); Vitamin D 25-OH Total 15.3 ng/mL (>30)
[2024-02-26 09:42] LABS: Appearance Urine Cloudy; Color Urine Yellow; Glucose Urine UA >=1000 mg/dL (Negative); Leukocyte Esterase Urine Moderate (2+) (Negative); Nitrite Urine Negative (Negative); PH 5.5 (5.0-9.0); UMIC TRIGGER UA YES; Urine Blood Small (1+) (Negative); Urine Ketones Negative (Negative); Urine Protein 100 (2+) mg/dL (Neg-Trace)
[2024-02-26 10:01] LABS: Bacteria Urine 4+ (None Seen); Hyaline Casts Urine 0-2 /LPF (0-2); RBC Urine 0-2 /HPF (0-2); Squamous Epithelial Cell Urine 0-2 /HPF (0-2); WBC Urine >50 /HPF (0-5)
[2024-02-26 10:06] LABS: Creatinine Urine 71.54 mg/dL; Protein/Creatinine Ratio, Ur 1.96 (<0.2); Total Protein Urine Random 140 mg/dL (<12)
[2024-02-26 10:23] LABS: Microalbum/Creatinine Ratio Ur 1235.6 ug/mg cr (<30)
[2024-02-29 12:50] LABS: eGFR (Cystatin C) 27 (L)
== END 2024-02-26 07:55 | disposition home or self-care (01) ==
LOC: HO.LAB 07:54
PROVIDERS: PCP Internal Medicine; Visit Provider Internal Medicine
DX: N18.30 Chronic kidney disease, stage 3 unspecified (principal)
CPT/HCPCS: 36415; 80051; 81001; 82043; 82306; 82310; 82565; 82570; 82610; 82728; 83036; 83540; 83735; 83970; 84100; 84156; 84520; 84550; 85025

== ENCOUNTER 2024-03-07 10:25 | Outpatient (AMB) | payer OTHER, SELFPAY ==
--- NOTE | 2024-03-07 10:38 | MHC.OFFVIS ---
Intake Visit Reasons: 6m/PVR Intake Note: Patient is Present for PVR/ Urology Med:Finasteride Antibiotic Allergy: Sulfa Blood Thinner:None Todays PVR: 58ml Recent PSA: 08/2023- <0.10 Recent A1C: 02/25 6.6 Food And Beverage Lead Required: No Supervisor Small Appliance Assembly: Supervisor Small Appliance Assembly Present Accompanied by: Family/Other Allergies Sulfa (Sulfonamide Antibiotics) [SULFA (SULFONAMIDE ANTIBIOTICS)] Allergy (Intermediate, Verified 01/09/24 11:31) hives HPI Comments Details: Juan Jose is a pleasant Vietnamese-speaking male. He is a patient Dr. Kee. He is seen the following urologic conditions - neurogenic bladder - lower urinary tract symptoms Follow-up six-month Current PVR 60 Continue current medication with finasteride Suprapubic tube placed January 2023 Bladder came back online by late April 2023 Suprapubic tube removed at that point in time Lower urinary tract symptoms Initial presentation [facility] for bipolar disorder management Difficulty with urine initiation and weakness of stream Concomitant diabetes with diabetic nephropathy and microalbumin urea Prior medications doxazosin - had retrograde ejaculation dizziness, switched to alfuzosin [facility] Medical History Hypertension Osteomyelitis Bipolar 1 disorder Difficulty walking Neuromuscular dysfunction of bladder PVD (peripheral vascular disease) Benign prostatic hyperplasia Hyperlipidemia Restrictive lung disease Bacteremia Foot ulcer Headache Patellofemoral arthritis of left knee Microalbuminuria Left knee pain Foot osteomyelitis, right Anemia in chronic kidney disease Right foot pain PAD (peripheral artery disease) Anemia CKD (chronic kidney disease) stage 3, GFR 30-59 ml/min CKD stage G3b/A2, GFR 30-44 and albumin creatinine ratio 30-299 mg/g Osteomyelitis Morbid obesity 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 deficiency [id number] syndrome NEEMA on CPAP Vitamin D deficiency Moderate non-proliferative diabetic retinopathy Diabetic polyneuropathy associated with type 2 diabetes mellitus Dyslipidemia CKD (chronic kidney disease) Diabetes type 2, uncontrolled Surgical History History of eye surgery S/P tooth extraction 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 Hx laparoscopic cholecystectomy Status post amputation of toe S/P cataract surgery S/P debridement History of tonsillectomy and adenoidectomy Family History Father Cerebral aneurysm CVD (cardiovascular disease) Stroke Mother DM (diabetes mellitus) Stroke Brother No problems noted. Brother No problems noted. Son No problems noted. Daughter In good health Maternal Grandmother DM (diabetes mellitus) Stroke Social History Household Members: None Housing: Unknown / Unable to assess Unable to assess alcohol history related to: Unable to respond Alcohol intake: never Patient Tobacco Use Status: Never used Tobacco e-Cigarette/Vaping Use: Never Used Second Hand Smoke Exposure: No Substance Use Type: Marijuana Advance Directives Date on File: 09/19/22 service: No Current occupational status: disabled Sexual orientation: Did not discuss. Cognitive needs: No Hearing needs: No Vision needs: Yes Review of Systems Const Denies chills and Denies fever(s) Card Reports no additional complaints and Denies syncope Resp Denies cough GI Denies abdominal pain and Denies heartburn Reports as per HPI and Denies change in libido Neuro Denies syncope Psych Denies change in libido Endo Denies change in libido Physical Exam Const General: cooperative, healthy appearing, comfortable and no acute distress Orientation/consciousness: patient oriented x3 HEENT Face and sinus: Yes normal facial exam Mouth: moist mucous membranes Neck Neck: Yes normal visual inspection, Yes full ROM and Yes trachea midline Chest Chest palpation & inspection: normal inspection of the chest Resp Effort & Inspection: normal respiratory effort, able to speak in complete sentences and no respiratory distress GI Inspection: Yes normal to inspection Back/Spine/Pelvis Cervical Spine: normal cervical lordosis Thoracic/Lumbar Spine: thoracic and lumbar spine normal to inspection Skin General skin exam: no rashes or lesions noted Neuro General: patient oriented x3, gait normal, tone normal and moves all extremities Extrem General: Yes normal to inspection and Yes capillary refill normal Office Procedures Post Void Residual Post Residual Void Post Void Residual (PVR): 58 [id number] Void Residual by ultrasound Assessment & Plan Assessment & Plan (1) Hypotonic neurogenic bladder: Code(s): N31.9 - Neuromuscular dysfunction of bladder, unspecified Category: Medical (2) BPH loc w urin obs/LUTS: Code(s): N40.1 - Benign prostatic hyperplasia with lower urinary tract symptoms Category: Medical Plan Six-month follow-up Continue finasteride Orders: Orders AMB Post Void Residual by ultrasound Today R33.9 - Retention of urine, unspecified Patient Instructions: Imaging studies, laboratory and physical exam results were discussed and reviewed in detail. No major barriers to patient understanding were identified. An opportunity to ask questions regarding the treatment plan was provided. All questions were answered. The patient expressed understanding and agreement with the above treatment plan. The patient is aware they should contact our office by phone for worsening of their current condition or the appearance of new urologic symptoms. Compliance is encouraged with any medications and followup testing that is ordered. It is a privilege to participate in the urologic care of your patient. If you have any questions or concerns regarding treatment for the above conditions, or other urologic issues, please do not hesitate to contact me. The office telephone contact is [phone]. This note is constructed using voice recognition software. While every effort has been made to ensure accuracy leverman errors may have been included. Yours sincerely, Dr Sherwin Singer MD, ALLIE [facility] - Urology Providers of Expert, Compassionate Care for the Genitourinary System Coding Level of Care Code Est Pt Level 3 (32294) Diagnoses Hypotonic neurogenic bladder N31.9 BPH loc w urin obs/LUTS N40.1 CPT Codes Post Residual Void - PVR CPT Code: 37637-Dyin Void Residual by ultrasound ([id number])
== END 2024-03-07 11:12 | disposition home or self-care (01) ==
PROVIDERS: PCP Internal Medicine; Visit Provider Urology
DX: N31.9 Neuromuscular dysfunction of bladder, unspecified (principal); N40.1 Benign prostatic hyperplasia with lower urinary tract symptoms
CPT/HCPCS: 99213

== ENCOUNTER → 2024-03-07 10:25 | Outpatient (BNVA) | payer MEDICAID, SELFPAY | PROVIDERS: PCP Internal Medicine; Visit Provider Urology | DX: N40.1 Benign prostatic hyperplasia with lower urinary tract symptoms (principal); N13.8 Other obstructive and reflux uropathy; N31.9 Neuromuscular dysfunction of bladder, unspecified | CPT/HCPCS: 51798; 99212 ==

== ENCOUNTER 2024-06-13 14:53 | Outpatient (REF) | payer OTHER, SELFPAY ==
[2024-06-13 15:28] LABS: MANUAL DIFF FLAG NO
[2024-06-13 15:43] LABS: Appearance Urine Clear; Color Urine Yellow; Glucose Urine UA >=1000 mg/dL (Negative); Leukocyte Esterase Urine Negative (Negative); Nitrite Urine Negative (Negative); PH 5.5 (5.0-9.0); UMIC TRIGGER UA YES; Urine Blood Trace (Negative); Urine Ketones Negative (Negative); Urine Protein 30 (1+) mg/dL (Neg-Trace)
[2024-06-13 15:46] LABS: Basophils Absolute Auto 0.1 X10*3/uL (0.0-0.2); Basophils Percent Auto 0.7 % (0-2); Eosinophils Absolute Auto 0.3 X10*3/uL (0.0-0.4); Eosinophils Percent Auto 3.3 % (0-4); Hematocrit 37.9 % (42.0-52.0); Hemoglobin 12.4 g/dl (14.0-18.0); Imm Gran Abs Auto 0.03 X10*3/uL (0.00-0.03); Imm Gran Pct Auto 0.3 % (0.0-0.4); Lymphocytes Absolute Auto 2.1 X10*3/uL (1.2-4.9); Lymphocytes Percent Auto 21.1 % (20-40); Mean Corpuscular HGB Conc 32.7 g/dl (31.0-36.0); Mean Corpuscular Volume 88.8 fL (80.0-98.0); Mean Platelet Volume 9.2 fL (9.4-12.4); Monocytes Absolute Auto 1.3 X10*3/uL (0.1-1.2); Monocytes Percent Auto 13.4 % (2-11); Neutrophils Absolute Auto 6.1 x10*3/uL (2.0-8.3); Neutrophils Percent Auto 61.2 % (45-73); Platelet Count 374 X10*3/uL (160-400); Red Blood Count 4.27 X10*6/uL (4.60-5.80); Red Cell Distribution Width 17.2 % (11.0-16.0)
[2024-06-13 15:56] LABS: Bacteria Urine 4+ (None Seen); Hyaline Casts Urine 0-2 /LPF (0-2); RBC Urine 0-2 /HPF (0-2); WBC Urine >50 /HPF (0-5)
[2024-06-13 16:02] LABS: Anion Gap 8 (12-20); Blood Urea Nitrogen 42 mg/dL (9-16); Calcium 8.1 mg/dL (8.4-10.2); Carbon Dioxide 22 mmol/L (22-29); Chloride 116 mmol/L (96-108); Estimated Glomerular Filt Rate 41; Glucose Random 148 mg/dL (60-115); Potassium 4.6 mmol/L (3.3-5.1); Sodium 141 mmol/L (135-145); Total Protein 7.4 g/dL (6.5-8.0)
[2024-06-13 16:19] LABS: Creatinine Urine 45.45 mg/dL; Microalbum/Creatinine Ratio Ur 677.6 ug/mg cr (<30)
[2024-06-17 09:59] LABS: Cystatin C 2.71 (H); eGFR (Cystatin C) 21
== END 2024-06-13 14:54 | disposition home or self-care (01) ==
LOC: HO.LAB 14:53
PROVIDERS: PCP Internal Medicine; Visit Provider Internal Medicine
DX: N18.32 Chronic kidney disease, stage 3b (principal)
CPT/HCPCS: 36415; 80048; 81001; 82043; 82570; 82610; 84155; 85025

== ENCOUNTER 2024-06-24 06:40 | Outpatient (REF) | payer OTHER, SELFPAY ==
--- OUTSIDE RECORDS SUMMARY | 2024-06-24 06:43 | XMS_ITS | Clinical Summary ---
Author Organization 175 [facility] Address [address] [place] [address] Phone Care Team Providers Care Nurse Obgyn Name Role Phone Xochilt Singh MD Primary Care Provider [phone] Allergies Active Allergy Reactions Criticality Noted Date Comments Sulfa (Sulfonamide Antibiotics) 09/2017 Medications Medication Sig Dispensed Refills Start Date End Date Status CYANOCOBALAMIN, VITAMIN B-12, ORAL Take by mouth. Ac tive clotrimazole (LOTRIMIN) 1 % cream Apply to skin and nails daily for 3 months 11/02/2021 Active dulaglutide (Trulicity) 3 mg/0.5 mL pen injector injection Inject into the skin. Active ammonium lactate (AmLactin) 12 % lotion Apply topically if needed for dry skin. 400 g 05/30/2024 05/30/2025 Active Active Problems Problem Noted Date Diagnosed Date Amputation of toe 05/02/2018 Diabetic polyneuropathy asso ciated with type 2 diabetes mellitus 05/02/2018 Status post amputation of toe of left foot 05/02 Encounters Date Type Department Care Team Description 05/30/2024 9:45 AM EST Office Visit Orthopedic Surgery [facility] 250 175 [facility] [address] [place] [phone] Trevor Harris, DPM Fissure in skin of both feet (Primary Dx); Ulcer of toe of left foot, limited to breakdown of skin (CMS/HCC); Dermatophytosis of nail; Pain in toe of right foot; Pain in toe of left foot; Corns and callosities; Metatarsalgia of both feet; Type II diabetes mellitus with peripheral circulatory disorder (CMS/HCC); Diabetic mononeuropathy simplex (CMS/HCC) from Last 3 Months Social History Tobacco Use Types Packs/Day Years Used Date Smoking Tobacco: Never Smokeless Tobacco: Never Sex and Gender Information Value Date Recorded Sex Assigned at Not on file Gender Identity Not on file Sexual Orientation Not on file Job Start Date Occupation Industry Not on file Not on file Not on file Obstetrics History Last Filed Vital Signs Vital Sign Reading Time Taken Comments Blood Pressure - - Pulse - - Temperature - - Respiratory Rate - - Oxygen Saturation - - Inhaled Oxygen Concentration - - Weight 81.2 kg (179 lb) 05/30/2024 9:58 AM EST Height 165.1 cm (5' 5 ) 05/30/2024 9:58 AM EST Body Mass Index 29.79 05/30/2024 9:58 AM EST Plan of Treatment Upcoming Encounters Date Type Department Care Team (Late st Contact Info) Description 07/29/2024 10:45 AM EST Office Visit Orthopedic Surgery - [place] [address] [phone] Trevor Harris, DPM [address] [address] Health Maintenance Due Date Last Done Comments Diabetes: Annual GFR (Glomerular Filtration Rate) 1965 Diabetes: Annual Foot Exam 1975 Diabetes: Annual Retina Eye Exam 1975 Hepatitis B Vaccines (1 of 3 - 19+ 3-dose series) 1984 Zoster Vaccines (1 of 2) 2015 Cholesterol Screening (Lipid Panel) 05/08/2022 Colorectal Cancer Screening: Colonoscopy 05/08/2022 Depression Screening 05/08/2022 Diabetes: Annual Urine Albumin-Creatinine Ratio (uACR) 05/08/2022 Diabetes: Blood Sugar Control Test (HGBA1C) 05/08/2022 HIV Screening 05/08/2022 Hepatitis C Screening 05/08/2022 Social Influencers of Health Screening 05/08/2022 COVID-19 Vaccine ( season) 2024 06/22/2023, 10/28/2021, 09/04/2020, Additional history exists Influenza Vaccine (#1) 2024 , 02/25/2022, 03/25/2021, Additional history exists DTaP,Tdap,and Td Vaccines (2 - Td or Tdap) 01/08/2032 01/07/2022 RSV Immunization Patients 60+ Years Old (1 - 1-dose 75+ series) 2040 Pneumococcal Vaccine: Pediatrics (0 to 5 Years) and At-Risk Patients (6 to 64 Years) Completed 02/23/2023 HIB Vaccines Aged Out No longer eligi ble based on patient's age to complete this topic HPV Vaccines Aged Out No longer eligi ble based on patient's age to complete this topic Hepatitis A Vaccines Aged Out No long er eligible based on patient's age to complete this topic IPV Vaccines Aged Out No longer eligi ble based on patient's age to complete this topic MMR Vaccines Aged Out No longer eligi ble based on patient's age to complete this topic Meningococcal ACWY Vaccine Aged Out N o longer eligible based on patient's age to complete this topic RSV Immunization Patients Under 20 months Aged Out No longer eligible based on patient's age to complete this topic Varicella Vaccines Aged Out No longer eligible based on patient's age to complete this topic Procedures Procedure Name Priority Date/Time Associated Diagnosis Comments ORTHO X-RAY FOOT (3 VIEWS) Routine 03/26/2024 9:06 AM EDT Pain in right foot from Last 3 Months Results * ORTHO X-RAY FOOT (3 VIEWS) (03/26/2024 9:06 AM EDT) Anatomical Region Laterality Modality Radiographic Mariela ging 03/26/2024 7:16 AM EDT Narrative 03/27/2024 8:01 AM EDT Right foot 3 views No acute findings compared to previous radiographs deformities of the forefoot noted degenerative changes the hallux noted previous resection of lesser metatarsal heads of the second and third noted hammertoe contractures of the second fourth and fifth noted No acute findings compared to previous radiographs taken on 06/14/2023 Procedure Note Trevor Harris DPM - 03/30/2024 Right foot 3 views No acute findings compared to previous radiographs deformities of theforefoot noted degenerative changes the hallux noted previous resection oflesser metatarsal heads of the second and third noted hammertoecontractures of the second fourth and fifth noted No acute findings compared to previous radiographs taken on 06/14/2023 Trevor Harris DPM IMG XR PROCEDURES from Last 3 Months Care Teams Nurse Obgyn Relationship Specialty Start Date End Date Xochilt Singh MD [address] [place] [address] , [address] Physician Associ D/B/A: [facility] [place], [place] PCP - General Internal Medicine 04/05/21
--- OUTSIDE RECORDS SUMMARY | 2024-06-24 06:43 | XMS_ITS | Encounter Summary ---
[facility] Address [address] [place] [address] Care Team Providers Care Any Commodity Buyer Name Role Phone Xochilt Singh MD Primary Care Provider [phone] Reason for Visit * Reason Comments Follow-up Nail removal Encounter Details Date Type Department Care Team ([facility] [address] Contact Info) Description 05/30/2024 9:45 AM EST Office Visit Orthopedic Surgery [facility] [address] [phone] Trevor Harris, DPM [address] [address] Fissure in skin of both feet (Primary Dx); Ulcer of toe of left foot, limited to breakdown of skin (CMS/HCC); Dermatophytosis of nail; Pain in toe of right foot; Pain in toe of left foot; Corns and callosities; Metatarsalgia of both feet; Type II diabetes mellitus with peripheral circulatory disorder (CMS/HCC); Diabetic mononeuropathy simplex (CMS/HCC) Social History Tobacco Use Types Packs/Day Years Used Date Smoking Tobacco: Never Smokeless Tobacco: Never Sex and Gender Information Value Date Recorded Sex Assigned at Not on file Gender Identity Not on file Sexual Orientation Not on file Job Start Date Occupation Industry Not on file Not on file Not on file documented as of this encounter Last Filed Vital Signs Vital Sign Reading Time Taken Comments Blood Pressure - - Pulse - - Temperature - - Respiratory Rate - - Oxygen Saturation - - Inhaled Oxygen Concentration - - Weight 81.2 kg (179 lb) 05/30/2024 9:58 AM EST Height 165.1 cm (5' 5 ) 05/30/2024 9:58 AM EST Body Mass Index 29.79 05/30/2024 9:58 AM EST documented in this encounter Ordered Prescriptions Prescription Sig Dispensed Refills Start Date End Da te ammonium lactate (AmLactin) 12 % lotion Apply topically if needed for dry skin. 400 g 05/30/2024 05/30/2025 documented in this encounter Progress Notes * Trevor Harris, DPM - 05/30/2024 9:45 AM EST S Patient presents for at risk footcare he unfortunately subsequently had amputation of his right third ray and left fifth ray secondary to progressively worsening ulcers at [place]. States he is healed since then this still suffer from extensive neuropathy numbness and tingling both feet does request diabetic shoes and inserts to be adjusted. Presents today with his son present has brought his diabetic shoes and inserts for further evaluation so far has been doing very well with them denies new wound formation his calluses are minimal and his nails are longer painful and thickened Patient is seen some skin breakdown of his heels he has been using his diabetic shoes and inserts states that his skin has been cracking more notes the wintertime left has been bothersome his son is very diligent on take care of his feet Last PCP visit 03/13/2024 Dr. Jagjit BLAND ROS: GENERAL: Pt denies nausea, fever, vomiting, chills, or shortness of breath. Pt in NAD. CARDIOLOGY: pt denies chest pain, palpitations LUNGS: pt denies shortness of breath MUSCULOSKELETAL: See HPI, otherwise no joint pain or swelling, back pain, or muscle pain. SKIN: see HPI, otherwise no lesions, rash or itching NEURO: No persistent headache, weakness or numbness The remainder of the review of systems is noncontributory PAST MEDICAL HISTORY: Patient Active Problem List Diagnosis Code Diabetic polyneuropathy associated with type 2 diabetes mellitus (HCC) E11.42 Status post amputation of toe of left foot (HCC) Z89.422 Toe amputation status, right [id number] SOCIAL HISTORY: Social History Tobacco Use Smoking status: Never Smokeless tobacco: Never Substance Use Topics Alcohol use: Not on file History Last Reviewed by Rachna Saenz on 11/02/2021 at 10:55 AM Sections Reviewed Tobacco ACTIVE MEDICATIONS: Current Outpatient Medications Medication Sig Dispense Refill clotrimazole (LOTRIMIN) 1 % cream Apply to skin and nails daily for 3 months 30 g 3 Dulaglutide 3 MG/0.5ML Solution Pen-injector Inject into the skin. Cyanocobalamin (VITAMIN B12 OR) Take by mouth. No current facility-administered medications for this visit. ALLERGIES: Sulfa drugs PHYSICAL EXAM: Height 5' 5 (1.651 m), weight 179 lb (81.2 kg). Estimated body mass index is 29.79 kg/m?? as calculated from the following: Height as of this encounter: 5' 5 (1.651 m). Weight as of this encounter: 179 lb (81.2 kg). PODIATRIC EXAMINATION: GENERAL: Patient appears well nourished, with NAD. VASCULAR: Dorsalis pedis pulses are 1/4 bilaterally and Posterior tibial pulses are 1/4 bilaterally. Capillary filling time within normal limits the digits. No pallor on elevation or rubor on dependency. Absent hair growth. No varicosities. Denies rest pain or claudication pain. NEUROLOGICAL: Sharp/dull sensation absent, protective sensation absent 0/10 with 5.07 semmes major bilaterally, vibratory sensation with tuning fork intact to the tibial tuberosity. ORTHOPEDIC: Good muscle strength 5/5 of all flexors and extensors. Dorsi flexion of ankle ,10 degrees, plantar flexion WNL. No muscle atrophy. DERMATOLOGICAL:. Toenails: Left Toenail(s) 1-5: Crumbling upon debridement, subungual debris, discoloration, dystrophy, elongation, mycotic appearance, onychomycosis, pain and thickening. Right Toenail(s) 1-5: Crumbling upon debridement, subungual debris, discoloration, dystrophy, elongation, mycotic appearance, onychomycosis, pain and thickening. Annular scaling bilateral feet moccasin distribution Hyperkeratotic tissue subfirst metatarsal bilaterally Fissure formation left heel less than 2 mm in length with early signs of breakdown skin preulcerative lesion BIOMECHANICS: STJ ROM wnl, MTJ ROM wnl, 1st MPJ ROM wnl. Previous amputations left foot fifth digitright foot third digit IMAGING: [facility] NOÉ/[id number] Imaging Result Report Patient: Juan Jose Meier Date of Service: 08/02/21 Patient Gender: Male Ordering Provider: Trevor Harris DOB: 1965 Final ORTHO X-RAY FOOT (3 VIEWS) Exam Date: 08/02/2021 8:50 AM Ordering Diagnosis: Foot pain, bilateral Right foot weightbearing 3 views Findings Extensive osteolytic changes of the second metatarsal head with absent third metatarsal head consistent with previous chronic osteomyelitis treated with IV antibiotic therapy. Fracture impact of the proximal phalanx head of the right great toe chronic without new osteolytic changes Mockingbird calcifications Lateral view there is decreased calcaneal inclination Impression Findings consistent with chronic treated osteomyelitis without new osteolytic changes callus formation secondary to weightbearing with previous malunion fracture of the proximal phalanx head advance midfoot arthritis Left foot weightbearing 3 views Findings Stable amputation of the fifth ray without new osteolytic changes rectus foot type Impression Stable postoperative changes Reading Physician: Signed by: Trevor Harris DPM on 08/02/2021 9:17 AM This report was sent to: Trevor Harris at [address] [place] [address]. IMPRESSION: 1. Fissure in skin of both feet 2. Ulcer of toe of left foot, limited to breakdown of skin (CMS/HCC) 3. Dermatophytosis of nail 4. Pain in toe of right foot 5. Pain in toe of left foot 6. Corns and callosities 7. Metatarsalgia of both feet 8. Type II diabetes mellitus with peripheral circulatory disorder (CMS/HCC) 9. Diabetic mononeuropathy simplex ([facility]/HCC) PLAN: Ammonium lactate prescribed both heels daily Fissure removed with debridement of skin and callus Discussed close site hydration of skin Vaseline topically Discussed with patient for any reason the ulceration worsens or gets more irritated call our officefor an earlier appointment to be seen sooner than his 3-month follow-up Discussed concerns for metatarsalgia of the right foot with patient in detail for transfer lesions Orthotics insoles evaluated appropriately fitted for this patient at this time Did discuss with patient that he is having significant metatarsalgia as well as hammering of his right hallux for compensation Discussed with patient regarding proper glucose control, exercise, and diet. Explained to patient proper shoe gear, and importance of daily foot checks. Diabetic shoes and inserts prescribed to better offload treat his pedal deformities amputations andmetatarsalgia chronically I reviewed neuropathy and why it occurs in diabetics. I educated the patient on proper blood sugar control and the importance of an HgBA1c of less than 7.0%. I reviewed the signs and symptoms of neuropathy with the patient Neuropathic medications discussed reviewed discussed possible benefits from [id number] Voltaren gel and lidocaine Pt to return for another evaluation in 3 months. Debridement of mycotic toenails 6-10: Verbal informed consent was obtained from the patient. Greater than 6 nails were aseptically debrided in thickness and length with nail nippers Hyperkeratotic tissue debrided pared with a number #15 scalpel blade x2 Trevor Harris DPM documented in this encounter Plan of Treatment Upcoming Encounters Date Type Department Care Team (Late st Contact Info) Description 07/29/2024 10:45 AM EST Office Visit Orthopedic Surgery - [place] [address] [phone] Trevor Harris DPM [address] [address] documented as of this encounter Visit Diagnoses Diagnosis Fissure in skin of both feet- Primary Ulcer of toe of left foot, limited to breakdown of skin (CMS/HCC) Dermatophytosis of nail Pain in toe of right foot Pain in soft tissues of limb Pain in toe of left foot Pain in soft tissues of limb Corns and callosities Metatarsalgia of both feet Type II diabetes mellitus with peripheral circulatory disorder (CMS/HCC) Type II or unspecified type diabetes mellitus with peripheral circulatory disorders, not stated as uncontrolled Diabetic mononeuropathy simplex (CMS/HCC) Type II or unspecified type diabetes mellitus with neurological manifestations, not stated as uncontrolled documented in this encounter Care Teams Any Commodity Buyer Relationship Specialty Start Date End Date Xochilt Singh MD [address] [place] [address] , [address] Physician Associ D/B/A: [facility] [place], [place] PCP - General Internal Medicine 04/05/21 documented as of this encounter
--- OUTSIDE RECORDS SUMMARY | 2024-06-24 06:43 | XMS_ITS | Clinical Summary ---
Author Organization [facility] Address [address] [place] [address] Phone Care Team Providers Care Personnel Director Name Role Phone Xochilt Mckoy MD Primary Care Provider [phone] Allergies Active Allergy Reactions Criticality Noted Date Comments Sulfa Antibiotics 07/15/2021 Medications * This document contains information received from the source organization and may not represent a complete record from that organization. acetaminophen (TYLENOL) 325 MG tablet TAKE 1 TABLET BY MOUTH FOUR TIMES DAILY NEEDED FOR PAIN 06/29/19 21 Active Cholecalciferol (Vitamin D3) 1.25 MG (11212 UT) capsule TAKE 3 CAPSULES BY MOUTH ONCE A WEEK 08/29/19 21 Active HumaLOG 100 UNIT/ML injection INJECT 110 UNITS SUBCUTANEOUSLY EVERY DAY via PUMP OF INSULIN 06/02/19 22 Active atorvastatin (LIPITOR) 10 MG tablet Take 10 mg by mouth 1 (one) time each day Active mirtazapine (REMERON ANUSHA-TAB) 15 MG dispersible tablet Take 15 mg by mouth every night Active sennosides-docu sate sodium (SENOKOT-S) 8.6-50 MG tablet Take 1 tablet by mouth 1 (one) time each day Active ferrous sulfate 325 (65 Fe) MG EC tablet Take 325 mg by mouth in the morning and 325 mg at noon and 325 mg in the evening. Take with meals. Do not crush, chew, or split.. Active finasteride (PROSCAR) 5 MG tablet Take 5 mg by mouth 1 (one) time each day Do not crush, chew, or split. Active Empagliflozin 25 MG tablet Take 25 mg by mouth 1 (one) time each day 30 tablet 11 12/21/19 24 12/20/ 025 Active lisinopril 5 MG tablet Take 1 tablet (5 mg total) by mouth 1 (one) time each day 30 tablet 11 03/07/20 24 025 Active cholecalciferol (VITAMIN D-3) 250 MCG (64423 UT) capsule Take 1 capsule (10,000 Units total) by mouth every 7 (seven) days 12 capsule 1 03/07/20 24 025 Active Ozempic, 0.25 or 0.5 MG/DOSE, 2 MG/3ML solution pen-injector INJECT 0.25 MG SUBCUTANEOUSLY EVERY 7 DAYS IN THE ABDOMEN, THIGHS OR UPPER ARM. ROTATE INJECTION SITES. 03/25/20 24 Active Trulicity 3 MG/0.5ML solution pen-injector INJECT ONE PEN (= 3 MG) SUBCUTANEOUSLY ONCE A WEEK DIRECTED 03/09/20 025 Discontin ued(Formu diaz change) tamsulosin (FLOMAX) 0.4 MG 24 hr capsule Take 0.4 mg by mouth 1 (one) time each day 025 Discontin ued(Formu diaz change) Active Problems Problem Noted Date Diagnosed Date Type 2 diabetes mellitus 03/18/2022 Overview (2022): Last Assessment & Plan: Controlled based on glycemic levels. Hemoglobin A1c 5.9% but may be falsely low due to anemia. Continue Trulicity 3 mg weekly. Vitamin D deficiency 03/18/2022 Overview (08/18/2022): Last Assessment & Plan: Vitamin D levels are still deficient. He may have decreased absorption due to gastric bypass. He should continue ergocalciferol 50,000 units I will repeat vitamin D levels prior to the follow-up visit. Hyperlipidemia 03/18/2022 Overview (08/18/2022): Last Assessment & Plan: Controlled LDL is 48 mg/dL he should continue atorvastatin 10 mg no changes. Acute nontraumatic kidney injury 09/15/2020 Chronic kidney disease stage 3 09/15/2020 Hypertensive heart disease without congestive he art failure 09/15/2020 Morbid obesity 09/15/2020 Renal disorder due to type 2 diabetes mellitus 0 09/15/2020 Encounters Date Type Department Care Team Description 06/13/2024 2:00 PM EST Office Visit [facility] [address] [place] [address] Dick Flores MD Stage 3b chronic kidney disease (HCC) (Primary Dx) 06/07/2024 Orders Only [facility] [address] [place] [address] Dick Flores MD Stage 3b chronic kidney disease (HCC) from Last 3 Months Family History Medical History Relation Comments Stroke Father Diabetes Mother Stroke Mother Diabetes Sibling Relation Status Comments Father Mother Sibling Social History Tobacco Use Types Packs/Day Years Used Date Smoking Tobacco: Never Smokeless Tobacco: Never Tobacco Cessation:Counseling Given: No Alcohol Use Standard Drinks/Week Comments No 0 (1 standard drink = 0.6 oz pur e alcohol) Sex and Gender Information Value Date Recorded Sex Assigned at Not on file Legal Sex Male 5:07 PM EST Gender Identity Not on file Sexual Orientation Not on file Last Filed Vital Signs Vital Sign Reading Time Taken Comments Blood Pressure 134/62 06/13/2024 2:05 PM EST Pulse 72 06/13/2024 2:05 PM EST Temperature - - Respiratory Rate - - Oxygen Saturation 98% 06/13/2024 2:05 PM EST Inhaled Oxygen Concentration - - Weight 93.4 kg (206 lb) 06/13/2024 2:05 PM EST Height 167.6 cm (5' 6 ) 08/18/2022 2:34 PM EDT Body Mass Index 33.25 08/18/2022 2:34 PM EDT Plan of Treatment Upcoming Encounters Date Type Department Care Team (Late st Contact Info) Description 08/22/2024 3:15 PM EDT Office Visit [facility] [address] [place] [address] Dick Flores MD [address] [phone] 10/01/2024 2:45 PM EDT [facility] [address] [facility] [address] [place] [address] Dick Flores MD [address] [facility] [address] [place] [address] Health Maintenance Due Date Last Done Comments Pneumococcal Vaccine: Pediat rics (0 to 5 Years) and At-Risk Patients (6 to 64 Years) (1 of 2 - PCV) 1971 Hepatitis B Vaccine (1 of 3 - 19+ 3-dose series) 1984 Colorectal Cancer Screening: Annual FOBT 2014 Colorectal Cancer Screening: Colonoscopy 2014 Colorectal Cancer Screening: Sigmoidoscopy 2014 Diabetes: Hemoglobin A1C 06/28/2020 07/09/2019, 04/0 05/2018 Diabetes: Ophthalmology Exam 06/28/2020 Diabetes: Pedal Pulse Checked 06/28/2020 Diabetes: Sensory Foot Exam 06/28/2020 Diabetes: Visual Foot Exam 06/28/2020 Influenza Vaccine (#1) 2024 Procedures Procedure Name Priority Date/Time Associated Diagnosis Comments HEMOGLOBIN A1C Routine 07/09/2019 8:52 AM EST from Last 3 Months or Most Recently Relevant to Health Maintenance Results * Hemoglobin A1c (07/09/2019 8:52 AM EST) [facility] Signature Hemoglobin A1C 5.4 % ALEYDA Comment: ?Hemoglobin A1C Reference Range ? Adults: ??4.8 - 6.0 % ? Non diabetic: ??< 6.0 % ? Goal: ??< 7.0 % Additional Action Suggested: ??> 8.0 % Note: ??Hemoglobin A1c results are invalid for patients ? with abnormal amounts of HbF. ??Blood transfusions ? may impact the HbA1c concentration in the patient ? sample. Estimated Average Glucose 108 MG/DL ALEYDA Comment: eAG = Estimated average glucose which is %A1C expressed as average glucose, using the formula of the [id number] Average Glucose study (ADAG), Diabetes Care, Vol.31,#8, Dec. 2007 07/09/2019 8:52 AM EST us Rtama Conversion LAB BLOOD ORDERABLES Final Resu lt ALEYDA from Last 3 Months or Most Recently Relevant to Health Maintenance Insurance MEDICAID MEDICAID Care Teams Personnel Director Relationship Specialty Start Date End Date Xochilt Mckoy MD [address] [place], [place] PCP - General 06/08/20
--- OUTSIDE RECORDS SUMMARY | 2024-06-24 06:43 | XMS_ITS | Encounter Summary ---
Author Organization [facility] Address [address] [facility] [address] [place] [address] Phone Care Team Providers Care Sheriffs Detective Name Role Phone Xochilt Mckoy MD Primary Care Provider [phone] Encounter Details Date Type Department Care Team (Late Contact Info) Description 09/26/2022 Telephone [facility] [address] [facility] [address] [place] [address] Jana Barger Social History Tobacco Use Types Packs/Day Years Used Date Smoking Tobacco: Never Smokeless Tobacco: Never Alcohol Use Standard Drinks/Week Comments No 0 (1 standard drink = 0.6 oz pur e alcohol) Sex and Gender Information Value Date Recorded Sex Assigned at Not on file Legal Sex Male 5:07 PM EST Gender Identity Not on file Sexual Orientation Not on file documented as of this encounter Miscellaneous Notes * Telephone Encounter - Jana Clemons - 10/03/2022 9:43 AM EDT Pls advise if pt still needs retacrit injections * Telephone Encounter - Jana Barger - 09/26/2022 9:52 AM EDT Maricruz from [facility] pharmacy called to inquire if this PT is still receiving Retacrit. Please call [phone] Option 2 documented in this encounter Plan of Treatment Upcoming Encounters Date Type Department Care Team (Late Contact Info) Description 08/22/2024 3:15 PM EDT [facility] Visit [facility] [address] [facility] [place] [address] Dick Flores MD [address] [address] 10/01/2024 2:45 PM EDT Office Visit [facility] [address] [address] Dick Flores MD [address] [address] documented as of this encounter Visit Diagnoses Not on filedocumented in this encounter Care Teams Sheriffs Detective Relationship Specialty Start Date End Date Xochilt Mckoy MD [address] [place], [place] PCP - General 06/08/20 documented as of this encounter
--- OUTSIDE RECORDS SUMMARY | 2024-06-24 06:43 | XMS_ITS | Encounter Summary ---
Author Organization [facility] Address [address] [address] Phone Care Team Providers Care Joint Machine Operator Name Role Phone Xochilt Mckoy MD Primary Care Provider [phone] Encounter Details Date Type Department Care Team (Late Contact Info) Description 06/13/2024 2:00 PM EST [facility] Visit [facility] [address] [place] [phone] Dick Flores MD [address] [address] Stage 3b chronic kidney disease (HCC) (Primary Dx) Social History Tobacco Use Types Packs/Day Years [...] (206 lb) 06/13/2024 2:05 PM EST Height - - Body Mass Index 33.25 08/18/2022 2:34 PM EDT documented in this encounter Plan of Treatment Upcoming Encounters Date Type Department Care Team (Late st Contact Info) Description 08/22/2024 3:15 PM EDT [facility] [address] [place] [address] Dick Flores MD [address] [address] 10/01/2024 2:45 PM EDT Office Visit [facility] [address] [phone] Dick Flores MD [address] [address] Scheduled Orders Name Type Priority Associated Diagnoses Orde r Schedule Cystatin C w/GFR Lab Routine Stage 3b chronic kidney disease (HCC) Expected: 06/13/2024, Expires: 07/14/2025 CBC and Differential Lab Routine Stage 3b chronic kidney disease (HCC) Expected: 06/13/2024, Expires: 07/14/2025 Basic Metabolic Panel Lab Routine Stage 3b chronic kidney disease (HCC) Expected: 06/13/2024, Expires: 07/14/2025 Urinalysis with microscopic Lab Routine Stage 3b chronic kidney disease (HCC) Expected: 06/13/2024, Expires: 07/14/2025 Protein, Total, Random Urine w/Creatinine (Protein/Creat Ratio) Lab Routine Stage 3b chronic kidney disease (HCC) Expected: 06/13/2024, Expires: 07/14/2025 Urine Albumin / Creatinine Ratio Lab Routine Stage 3b chronic kidney disease (HCC) Expected: 06/13/2024, Expires: 07/14/2025 CBC and Differential Lab Routine Stage 3b chronic kidney disease (HCC) Expected: 09/11/2024, Expires: 07/14/2025 Renal Function Panel Lab Routine Stage 3b chronic kidney disease (HCC) Expected: 09/11/2024, Expires: 07/14/2025 PTH, Intact Lab Routine Stage 3b chronic kidney disease (HCC) Expected: 09/11/2024, Expires: 07/14/2025 Vitamin D 25 Hydroxy Lab Routine Stage 3b chronic kidney disease (HCC) Expected: 09/11/2024, Expires: 07/14/2025 Urinalysis Lab Routine Stage 3b chronic kidney disease (HCC) Expected: 09/11/2024, Expires: 07/14/2025 Protein, Total, Random Urine w/Creatinine (Protein/Creat Ratio) Lab Routine Stage 3b chronic kidney disease (HCC) Expected: 09/11/2024, Expires: 07/14/2025 Urine Albumin / Creatinine Ratio Lab Routine Stage 3b chronic kidney disease (HCC) Expected: 09/11/2024, Expires: 07/14/2025 Magnesium Lab Routine Stage 3b chronic kidney disease (HCC) Expected: 09/11/2024, Expires: 07/14/2025 Phosphorus Lab Routine Stage 3b chronic kidney disease (HCC) Expected: 09/11/2024, Expires: 07/14/2025 Hemoglobin A1c Lab Routine Stage 3b chronic kidney disease (HCC) Expected: 09/11/2024, Expires: 07/14/2025 Iron Panel (Fe, TIBC, TSAT) Lab Routine Stage 3b chronic kidney disease (HCC) Expected: 09/11/2024, Expires: 07/14/2025 Ferritin Lab Routine Stage 3b chronic kidney disease (HCC) Expected: 09/11/2024, Expires: 07/14/2025 Uric Acid Lab Routine Stage 3b chronic kidney disease (HCC) Expected: 09/11/2024, Expires: 07/14/2025 documented as of this encounter Visit Diagnoses Diagnosis Stage 3b chronic kidney disease (HCC)- Primary documented in this encounter Care Teams Joint Machine Operator Relationship Specialty Start Date End Date Xochilt Mckoy MD [address] [place] [address] PCP - General 06/08/20 documented as of this encounter
--- OUTSIDE RECORDS SUMMARY | 2024-06-24 06:43 | XMS_ITS | Encounter Summary ---
Author Organization [facility] Address [address] [address] Phone Care Team Providers Care Sewing Machine Repairer Name Role Phone Xochilt Mckoy MD Primary Care Provider [phone] Encounter Details Date Type Department Care Team (Late Contact Info) Description 06/07/2024 Orders Only [facility] [address] [place] [address] Dick Flores MD [address] [address] Stage 3b chronic kidney disease (HCC) Social History Tobacco Use Types Packs/Day Years [...] on file documented as of this encounter Plan of Treatment Upcoming Encounters Date Type Department Care Team (Late Contact Info) Description 08/22/2024 3:15 PM EDT Office Visit [facility] [address] [place] [address] Dick Flores MD [address] [address] 10/01/2024 2:45 PM EDT Office Visit [facility] [address] [address] Dick Flores MD [address] [facility] [address] [place] [address] documented as of this encounter Visit Diagnoses Diagnosis Stage 3b chronic kidney disease (HCC) documented in this encounter Care Teams Sewing Machine Repairer Relationship Specialty Start Date End Date Xochilt Mckoy MD [address] [place] [address] PCP - General 06/08/20 documented as of this encounter
[2024-06-24 08:10] LABS: Alanine Aminotransferase 101 U/L (0-40); Albumin Level 3.7 g/dL (3.5-5.0); Alkaline Phosphatase 95 U/L (39-117); Anion Gap 10 (12-20); Aspartate Amino Transferase 35 U/L (5-37); Bilirubin Total 0.5 mg/dL (0.0-1.0); Blood Urea Nitrogen 54 mg/dL (9-16); Carbon Dioxide 18 mmol/L (22-29); Chloride 116 mmol/L (96-108); Cholesterol 102 mg/dL (<200); Estimated Glomerular Filt Rate 39; Glucose Fasting 144 mg/dL (60-99); HDL Cholesterol 22 mg/dL (>40); LDL Cholesterol Calculated 46 mg/dL (<100); Potassium 4.7 mmol/L (3.3-5.1); Sodium 139 mmol/L (135-145); Total Protein 7.4 g/dL (6.5-8.0); Triglycerides 174 mg/dL (<150)
[2024-06-24 08:20] LABS: Creatinine Urine 53.11 mg/dL; Microalbum/Creatinine Ratio Ur 530.9 ug/mg cr (<30)
[2024-06-24 08:26] LABS: Vitamin D 25-OH Total 19.5 ng/mL (>30)
== END 2024-06-24 06:41 | disposition home or self-care (01) ==
LOC: HO.LAB 06:40
PROVIDERS: PCP Internal Medicine; Visit Provider Internal Medicine
DX: E78.5 Hyperlipidemia, unspecified (principal); E11.9 Type 2 diabetes mellitus without complications; E55.9 Vitamin D deficiency, unspecified; N18.30 Chronic kidney disease, stage 3 unspecified
CPT/HCPCS: 36415; 80053; 80061; 82043; 82306; 82570

== ENCOUNTER 2024-07-03 16:52 | Outpatient (AMB) | payer OTHER, SELFPAY ==
--- NOTE | 2024-07-03 16:54 | MHC.PC.OV ---
Vital Signs 07/03/24 17:00 Height 5 ft 5 in Weight 207 lb BMI 34.4 BP 112/70 Blood Pressure Location Lt brachial Position Sitting Intake Visit Reasons: DM Intake Note: Patient here for a follow up DM Atmospheric Scientist Required: Yes Atmospheric Scientist Language: Director Of Hemophilia Name: Xochilt Flores MD Information Interpreted: non-clinical & clinical Accompanied by: FRUIT AND VEGETABLE PARER Allergies Sulfa (Sulfonamide Antibiotics) [SULFA (SULFONAMIDE ANTIBIOTICS)] Allergy (Intermediate, Verified 07/03/24 17:13) hives Medication List - Last Reconciled 07/03/24 by Xochilt Flores MD acetaminophen 650 mg (2 x 325 mg) PO BID 30 days atorvastatin 10 mg PO DAILY blood pressure test kit-medium As directed blood sugar diagnostic (FreeStyle Test strips) Use 4 test strip once a day blood-glucose meter (FreeStyle Lite Meter kit) As directed cholecalciferol (vitamin D3) PO [compression stockings knee high As directed] docusate sodium 100 mg PO BID PRN empagliflozin (Jardiance) 25 mg PO DAILY epinephrine 0.3 mg IM Q10M PRN ergocalciferol (vitamin D2) (Vitamin D2) 1,250 mcg PO QWEEK 90 days ferrous sulfate (FeroSul) 325 mg PO DAILY 30 days finasteride 5 mg PO DAILY 90 days insulin lispro subcut lisinopril mg PO DAILY mirtazapine 15 mg PO BEDTIME 90 days pen needle, diabetic (BD Ultra-Fine Short Pen Needle) As directed [raised toilet seat As directed] semaglutide (Ozempic) 0.25 mg (0.368 mL) subcut QWEEK 4 weeks [tub seat As directed] walker (Ultra-Light Rollator misc) As directed [wheelchair electric As directed] Tobacco use date assessed: 07/03/24 Dental Screening Dental Screen Date: 07/03/24 Did you have a dental visit in the last 12 months?: Yes Did you have a dental problem in the last 6 months where you did not have access to dental care?: No Was dental information given to patient?: Patient has dentist HPI HPI Comments History of Present Illness Details The patient is a 59-year-old male presenting for follow-up of multiple chronic conditions. The patient has a known history of hyperlipidemia, previously controlled with atorvastatin 10 mg, with recent laboratory results showing an LDL level of 46 mg/dL. His hypertension appears well-managed, with today's blood pressure reading at 112/70 mmHg. The patient's type 2 diabetes mellitus is slightly uncontrolled, with an A1c of 7.6, elevated from the target goal of less than 7. The patient's past medical history is significant for vitamin D deficiency, with current levels at 19.5 ng/mL, and hypocalcemia with calcium levels at 8 mg/dL. The patient is also currently experiencing mild depression, with a PHQ-9 score of 9, but is not under psychiatric care. The patient has a history of allergic reaction to sulfonamides. The patient additionally reports difficulties with sleep maintenance and fatigue during the night, affecting general well-being. FORMERLY [facility] Medical History (Updated 07/03/24 @ 20:39 by Xochilt Flores MD) detention (current) use of insulin Diabetic nephropathy associated with type 2 diabetes mellitus Mood disorder Diabetes mellitus Bipolar disorder with psychotic features Hypertension Osteomyelitis Bipolar 1 disorder Difficulty walking Neuromuscular dysfunction of bladder PVD (peripheral vascular disease) Benign prostatic hyperplasia Hyperlipidemia Restrictive lung disease Bacteremia Foot ulcer Headache Patellofemoral arthritis of left knee Microalbuminuria Left knee pain Foot osteomyelitis, right Anemia in chronic kidney disease Right foot pain PAD (peripheral artery disease) Anemia CKD (chronic kidney disease) stage 3, GFR 30-59 ml/min CKD stage G3b/A2, GFR 30-44 and albumin creatinine ratio 30-299 mg/g Osteomyelitis Morbid obesity 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 deficiency [id number] syndrome NEEMA on CPAP Vitamin D deficiency Moderate non-proliferative diabetic retinopathy Diabetic polyneuropathy associated with type 2 diabetes mellitus Dyslipidemia CKD (chronic kidney disease) Diabetes type 2, uncontrolled Surgical History (Updated 07/03/24 @ 20:39 by Xochilt Flores MD) History of eye surgery S/P tooth extraction 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 Hx laparoscopic cholecystectomy Status post amputation of toe S/P cataract surgery S/P debridement History of tonsillectomy and adenoidectomy Family History Father Cerebral aneurysm CVD (cardiovascular disease) Stroke Mother DM (diabetes mellitus) Stroke Brother No problems noted. Brother No problems noted. Son No problems noted. Daughter In good health Maternal Grandmother DM (diabetes mellitus) Stroke Social History Household Members: None Housing: Unknown / Unable to assess Unable to assess alcohol history related to: Unable to respond Alcohol intake: never Patient Tobacco Use Status: Never used Tobacco e-Cigarette/Vaping Use: Never Used Second Hand Smoke Exposure: No Substance Use Type: Marijuana Advance Directives Date on File: 09/19/22 service: No Current occupational status: disabled Sexual orientation: Did not discuss. Cognitive needs: No Hearing needs: No Vision needs: Yes Questionnaire PHQ-9 Over the last 2 weeks, how often have you been bothered by any of the following problems? 1. Little interest or pleasure in doing things: not at all 2. Feeling down, depressed, or hopeless: not at all 3. Trouble falling or staying asleep, or sleeping too much: nearly every day 4. Feeling tired or having little energy: nearly every day 5. Poor appetite or overeating: nearly every day 6. Feeling bad about yourself - or that you are a failure or have let yourself or your family down: not at all 7. Trouble concentrating on things, such as reading the newspaper or watching television: not at all 8. Moving or speaking so slowly that other people could have noticed. Or the opposite - being so fidgety or restless that you have been moving around a lot more than usual: not at all 9. Thoughts that you would be better off or of hurting yourself in some way: not at all Total score: 9 Depression Screening Interpretation: Positive Depression Screening Follow-up: Existing condition, Community Mental Health Worker F/U, Follow-up Visit Requested and Declines treatment Depression Screening Done: Yes 70613 - PHQ-9 Billing: Yes Source: Developed by Drs. Glenn Pritchard, Vanessa Hernandez, Jules Sims and colleagues, with an educational darlin from [employer]. Thrive Questionnaire Date Thrive assessed: 07/03/24 I am a: Patient What is your living situation today?: I have a steady place to live Within the past 12 months, did the food you bought not last and you didn't have the money to get more?: Never true Within the past 12 months, did you worry whether your food would run out before you got money to buy more?: Never true Do you have trouble paying for medicines?: No Do you have trouble getting transportation to medical appointments?: No Do you have trouble paying your heating and electricity bill?: No Do you have trouble taking care of your child, family member or friend?: No Do you have trouble with day-to-day activities such as bathing, preparing meals, shopping, managing finances, etc.?: No Are you currently unemployed and looking for a job?: No Are you interested in more education?: No Please select the resources that you would like help with: None Currently or been in a relationship where the following occur: No concerns reported THRIVE Score: 0 AUDIT C Alcohol Use Questionnaire (AUDIT-C) 1. How often do you have a drink containing alcohol?: Never Total Score: 0 Score Reviewed/Action Taken: No MELISA-7 AMB Questionnaire MELISA-7 Date MELISA - 7 assessed: 07/03/24 Feeling nervous, anxious, or on edge: 0 = Not at all Not being able to stop or control worryin = Not at all Worrying too much about different things: 0 = Not at all Trouble relaxin = Not at all Being so restless that it is hard to sit still: 0 = Not at all Becoming easily annoyed or irritable: 0 = Not at all Feeling afraid as if something awful might happen: 0 = Not at all Total MELISA-7 score (0-4 normal; 5-9 mild; 10-14 moderate; 15-21 severe): 0 Source: Developed by Drs. Glenn Pritchard, Vanessa Hernandez, Jules Sims and colleagues, with an educational darlin from [employer]. MELISA-7 Assessment Billing MELISA-7 Assessment Tool: MELISA-7 Assessment 18206 Review of Systems Const All systems reviewed & are unremarkable except as noted in HPI and below Card Denies chest pain at rest, Denies chest pain with activity, Denies edema, Denies irregular heart rhythm, Denies claudication, Denies dyspnea, Denies dyspnea on exertion, Denies orthopnea, Denies paroxysmal nocturnal dyspnea and Denies slow heart rate Resp Denies cough, Denies dyspnea and Denies dyspnea on exertion GI Denies abdominal pain, Denies change in bowel habits, Denies excessive flatus, Denies nausea and Denies vomiting Neuro Denies behavioral changes and Denies lack of coordination Psych Denies behavioral changes Physical exam (Primary Care) Vital Signs: Last Vital Signs BP 112/70 07/03/24 17:00 BMI result Body Mass Index 34.4 BMI Assessment/Plan discussion: High BMI High, discussed plan: lifestyle, weight reduction, dietary and physical activity Tobacco/Smoking Status: Tobacco use Status Tobacco use date assessed 07/03/24 07/03/24 17:07 Patient Tobacco Use Status Never used Tobacco 07/03/24 16:56 e-Cigarette/Vaping Use Never Used 07/03/24 16:56 PHQ-9: PHQ-9 Score PHQ-9: Total score 9 07/03/24 17:24 Depression Screening Interpretation: Positive Depression Screening Follow-up: Existing condition, Community Mental Health Worker F/U, Follow-up Visit Requested and Declines treatment Thrive Assessment: Date of Thrive Assessment Date Thrive assessed 07/03/24 07/03/24 16:56 Currently or been in a relationship where the following occur: No concerns reported Resp Effort & Inspection: normal respiratory effort Auscultation: clear to auscultation bilaterally Cardio Jugular venous distension: no JVD Rate: regular rate Rhythm: regular rhythm Heart sounds: S1 normal heart sound present and S2 normal heart sound present Extrem General: Yes full ROM Office Procedures Flu Questionnaire Does the patient have a severe egg allergy?: No Results AMB Hemoglobin A1c AMB Hemoglobin A1c 7.6 % Last Edit by FREDDIE Valladares on 07/03/24 17:07 Immunizations Fluarix Triv [id number] (PF) 45 mcg (15 mcg x 3)/0.5 mL IM syringe Performing Provider: Xochilt Flores MD [facility] Documented (not given) by: FREDDIE Valladares on 07/03/24 17:30 Reason Not Given: Patient Refused Results Reviewed Results Reviewed: Laboratory Last Values Hgb A1c (Clinic) 7.6 % (4.0-6.0) H 07/03/24 16:54 Coding Level of Care Code Est Pt Level 4 (98969) Complex EM visit Add On G2211 Diagnoses Diabetes mellitus with hyperglycemia, with long-term current use of insulin E11.65; Z79.4 Hyperlipidemia LDL goal <70 E78.5 Schizoaffective disorder, bipolar type F25.0 CKD (chronic kidney disease) stage 3, GFR 30-59 ml/min N18.30 PAD (peripheral artery disease) I73.9 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 deficiency E21.1 Additional Codes MELISA-7 Assessment Billing - MELISA-7 Assessment Tool: MELISA-7 Assessment 93027 ([id number]) PHQ-9 - 38017 - PHQ-9 Billing: Yes ([id number]) Time Spent (min) 22 Assessment & Plan Assessment & Plan (1) Diabetes mellitus with hyperglycemia, with long-term current use of insulin: Code(s): E11.65 - Type 2 diabetes mellitus with hyperglycemia; Z79.4 - detention (current) use of insulin Category: Medical (2) Hyperlipidemia LDL goal <70: Code(s): E78.5 - Hyperlipidemia, unspecified Category: Medical (3) Hyperlipidemia LDL goal <70: Code(s): E78.5 - Hyperlipidemia, unspecified Category: Medical (4) Schizoaffective disorder, bipolar type: Code(s): F25.0 - Schizoaffective disorder, bipolar type Category: Medical (5) CKD (chronic kidney disease) stage 3, GFR 30-59 ml/min: Code(s): N18.30 - Chronic kidney disease, stage 3 unspecified Category: Medical (6) PAD (peripheral artery disease): Comment: 06/21/2021- right peroneal plasty Code(s): I73.9 - Peripheral vascular disease, unspecified Category: Medical (7) 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 deficiency: Code(s): E21.1 - Secondary hyperparathyroidism, not elsewhere classified Category: Medical Plan - Continue atorvastatin for hyperlipidemia. Goal LDL <70 mg/dL. - Maintain current antihypertensive regimen. Regular blood pressure monitoring. - Adjust diabetes management with aim to lower A1c below 7%. Consider adjustments in Jardiance and Ozempic dosage. - Supplement vitamin D as per current regimen. Ensure adherence to weekly dosing. - Monitor calcium levels and ensure dietary intake meets calcium needs. - For depression, consider increasing mirtazapine to address both mood and sleep issues. - Reinforce allergy to sulfonamides in patient records. - Schedule follow-up blood work in 4 months, ensuring fasting prior to draw. Patient was informed and verbally consented to the use of an ambient scribe for clinic note documentation during this visit. We discussed the importance of maintaining control over hyperlipidemia, hypertension, and diabetes, considering current lab results and overall health status. We emphasized the necessity of adherence to medication regimens and dietary modifications. For diabetes, I suggested monitoring medication adjustments closely to achieve ideal A1c levels. The possibility of increasing mirtazapine was discussed to aid sleep and depressive symptoms. We also reviewed the continuation of vitamin D and calcium supplementation, given current deficiencies. Follow-up blood tests were scheduled to reassess these parameters. The patient was encouraged to pursue social engagements as part of his mental health management strategy. Orders: Orders Vitamin D 25-OH Total 4 Months E55.9 - Vitamin D deficiency, unspecified Microalbumin, Random (w Creat) 4 Months R80.9 - Proteinuria, unspecified Comprehensive [place]. Panel Fast 4 Months E11.65 - Type 2 diabetes mellitus with hyperglycemia, Z79.4 - buttermaker helper (current) use of insulin Influenza [id number] Immunization Today Z23 - Encounter for immunization AMB Hemoglobin A1c Today E11.65 - Type 2 diabetes mellitus with hyperglycemia, Z79.4 - buttermaker helper (current) use of insulin Vitamin B12 and Folate 4 Months E53.8 - Deficiency of other specified B group vitamins Complete Blood Count Auto Diff 4 Months D64.9 - Anemia, unspecified IRON PROFILE 4 Months D64.9 - Anemia, unspecified Lipid Panel 4 Months E78.5 - Hyperlipidemia, unspecified Medications: New mirtazapine 30 mg PO BEDTIME 90 tabs 0RF 90 days Discontinued mirtazapine Discontinued Reason: Patient Completed Course 15 mg PO BEDTIME 90 days 90 tabs 1RF Patient Instructions: - Continue all prescribed medications as directed. - Follow dietary recommendations for controlled diabetes and adequate calcium intake. - Monitor blood pressure regularly. - Increase social activities and community engagement. - Return for fasting blood work in 4 months. - Follow up with any new or worsening symptoms immediately.
--- OUTSIDE RECORDS SUMMARY | 2024-07-03 16:54 | XMS_ITS | Clinical Summary ---
Author Organization [facility] Address [address] [place] [address] Phone Care Team Providers Care Disk Grinder Name Role Phone Xochilt Mckoy MD Primary Care Provider [phone] Allergies Active Allergy Reactions Criticality Noted Date Comments Sulfa Antibiotics 07/15/2021 Medications * This document contains information received from the source organization and may not represent a complete record from that organization. acetaminophen (TYLENOL) 325 MG tablet TAKE 1 TABLET BY MOUTH FOUR TIMES DAILY NEEDED FOR PAIN 06/29/19 21 Active Cholecalciferol (Vitamin D3) 1.25 MG (38348 UT) capsule TAKE 3 CAPSULES BY MOUTH [...] 025 Active cholecalciferol (VITAMIN D-3) 250 MCG (01448 UT) capsule Take 1 capsule (10,000 Units [...] Visit [facility] [address] [place] [address] Dick Flores MD Stage 3b chronic kidney disease (HCC) (Primary Dx) 06/07/2024 Orders Only [facility] [address] [place] [address] Dick Flores [...] Visit [facility] [address] [place] [address] Dick Flores MD [address] [phone] 10/01/2024 2:45 PM EDT Office Visit [facility] [address] [facility] [address] [place] [address] Dick Flores MD [address] [facility] [address] [place] [address] Health Maintenance Due Date Last [...] * Hemoglobin A1c (07/09/2019 8:52 AM EST) [facility] Signature Hemoglobin A1C 5.4 % [...] average glucose, using the formula of the S9S-Ifnicnc Average Glucose study (ADAG), Diabetes Care, Vol.31,#8, Dec. 2007 07/09/2019 8:52 AM EST us Rtama Conversion LAB BLOOD ORDERABLES Final Resu lt ALEYDA from Last 3 Months or Most Recently Relevant to Health Maintenance Insurance MEDICAID MEDICAID Care Teams Disk Grinder Relationship Specialty Start Date End Date Xochilt Mckoy MD [address] [place], [place] PCP - General 06/08/20
--- OUTSIDE RECORDS SUMMARY | 2024-07-03 16:54 | XMS_ITS | Encounter Summary ---
Author Organization [facility] Address [address] [address] Phone Care Team Providers Care Resident Assistant Cna Name Role Phone Xochilt Mckoy MD Primary Care Provider [phone] Encounter Details Date Type Department Care Team (Late Contact Info) Description 06/07/2024 Orders Only [facility] [address] [place] [address] Dick Flores MD [address] [address] Stage 3b chronic kidney disease [...] Office Visit [facility] [address] [place] [address] Dick Flores MD [address] [address] 10/01/2024 2:45 PM EDT Office Visit [facility] [address] [address] Dick Flores MD [address] [facility] [address] [place] [address] documented as of this encounter Visit Diagnoses Diagnosis Stage 3b chronic kidney disease (HCC) documented in this encounter Care Teams Resident Assistant Cna Relationship Specialty Start Date End Date Xochilt Mckoy MD [address] [place] [address] PCP - General 06/08/20 documented as of this encounter
--- OUTSIDE RECORDS SUMMARY | 2024-07-03 16:54 | XMS_ITS | Clinical Summary ---
Author Organization [address] [facility] Address 175 [place] [address] Phone Care Team Providers Care Case Consultant Name Role Phone Xochilt Singh MD Primary Care Provider [phone] Allergies Active Allergy Reactions Criticality Noted Date [...] 9:45 AM EST Office Visit Orthopedic Surgery [facility] [address] [facility] [address] [place] [address] Trevor Harris, DPM Fissure in skin [...] AM EST Office Visit Orthopedic Surgery - [place] [address] [phone] Trevor Harris, DPM [address] [address] Health Maintenance Due Date Last Done Comments [...] on patient's age to complete this topic Care Teams Case Consultant Relationship Specialty Start Date End Date Xochilt Singh MD [address] [place] [address] , [address] [facility] Elizabeth PCP - General Internal Medicine 04/05/21
--- OUTSIDE RECORDS SUMMARY | 2024-07-03 16:54 | XMS_ITS | Encounter Summary ---
Author Organization [facility] Address [address] [address] Phone Care Team Providers Care Transportation Broker Name Role Phone Xochilt Mckoy MD Primary Care Provider [phone] Encounter Details Date Type Department Care Team (Late Contact Info) Description 06/13/2024 2:00 PM EST Office Visit [facility] [address] [place] [phone] Dick Flores MD [address] [address] Stage 3b chronic kidney disease [...] Visit [facility] [address] [place] [address] Dick Flores MD [address] [address] 10/01/2024 2:45 PM EDT Office Visit [facility] [address] [phone] Dick Flores MD [address] [address] Scheduled Orders Name Type Priority [...] Primary documented in this encounter Care Teams Transportation Broker Relationship Specialty Start Date End Date Xochilt Mckoy MD [address] [place] [address] PCP - General 06/08/20 documented as of this encounter
--- OUTSIDE RECORDS SUMMARY | 2024-07-03 16:54 | XMS_ITS | Encounter Summary ---
Author Organization [facility] Address [address] [facility] [address] [place] [address] Phone Care Team Providers Care Lock Technician Name Role Phone Xochilt Mckoy MD Primary Care Provider [phone] Encounter Details Date Type Department Care Team (Late Contact Info) Description 09/26/2022 Telephone [facility] [address] [facility] [address] [place] [address] Jana Barger Social History Tobacco [...] - 09/26/2022 9:52 AM EDT Maricruz from [facility] pharmacy called to inquire if this PT is still receiving Retacrit. Please call [phone] Option 2 documented in this encounter Plan of Treatment Upcoming Encounters Date Type Department Care Team (Late Contact Info) Description 08/22/2024 3:15 PM EDT Office Visit [facility] [address] [facility] [place] [address] Dick Flores MD [address] [address] 10/01/2024 2:45 PM EDT Office Visit [facility] [address] [address] Dick Flores MD [address] [address] documented as of this encounter Visit Diagnoses Not on filedocumented in this encounter Care Teams Lock Technician Relationship Specialty Start Date End Date Xochilt Mckoy MD [address] [place], [place] PCP - General 06/08/20 documented as of this encounter
[2024-07-03 17:00] VITALS: BP 112/70; BMI 34.4
== END 2024-07-03 17:24 | disposition home or self-care (01) ==
PROVIDERS: PCP Internal Medicine; Visit Provider Internal Medicine
DX: E11.65 Type 2 diabetes mellitus with hyperglycemia (principal); Z79.4 Long term (current) use of insulin; F25.0 Schizoaffective disorder, bipolar type; N18.30 Chronic kidney disease, stage 3 unspecified; I73.9 Peripheral vascular disease, unspecified; E21.1 Secondary hyperparathyroidism, not elsewhere classified; E78.5 Hyperlipidemia, unspecified

== ENCOUNTER → 2024-07-03 16:52 | Outpatient (BNVA) | payer OTHER, SELFPAY | PROVIDERS: PCP Internal Medicine; Visit Provider Internal Medicine | DX: E11.65 Type 2 diabetes mellitus with hyperglycemia (principal); E78.5 Hyperlipidemia, unspecified; F25.0 Schizoaffective disorder, bipolar type; N18.30 Chronic kidney disease, stage 3 unspecified; I73.9 Peripheral vascular disease, unspecified; E21.1 Secondary hyperparathyroidism, not elsewhere classified; Z79.4 Long term (current) use of insulin | CPT/HCPCS: 83036; 96127; 99212 ==

== ENCOUNTER 2024-07-11 08:46 | Outpatient (AMB) | payer OTHER, SELFPAY ==
--- NOTE | 2024-07-11 08:47 | A.OFFVIS_ITS ---
Intake Visit Reasons: 6m/PVR Intake Note: Patient is present for 6m PVR Urology Medication:FINASTERIDE Antibiotic Allergy:SULFA Blood Thinner:NONE Last PVR:58ML'S Todays PVR:27ML'S Chha Required: No Allergies Sulfa (Sulfonamide Antibiotics) [SULFA (SULFONAMIDE ANTIBIOTICS)] Allergy (Intermediate, Verified 07/11/24 08:49) hives HPI Comments Details: Juan Jose is a pleasant Lao-speaking male. He is a patient Dr. Kee. He is seen the following urologic conditions - neurogenic bladder - lower urinary tract symptoms Follow-up six-month 50 cc PVR Follow in 6 months with testosterone - current HbA1c 7.6 Is on Jardiance 25 mg. Does drink 6-7 bottles of water per day. Nocturia x1. 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 Diabetic nephropathy associated with type 2 diabetes mellitus Mood disorder Diabetes mellitus Bipolar disorder with psychotic features Hypertension Osteomyelitis Bipolar 1 disorder Difficulty walking Neuromuscular dysfunction of bladder PVD (peripheral vascular disease) Benign prostatic hyperplasia Hyperlipidemia Restrictive lung disease Bacteremia Foot ulcer Headache Patellofemoral arthritis of left knee Microalbuminuria Left knee pain Foot osteomyelitis, right Anemia in chronic kidney disease Right foot pain PAD (peripheral artery disease) Anemia CKD (chronic kidney disease) stage 3, GFR 30-59 ml/min CKD stage G3b/A2, GFR 30-44 and albumin creatinine ratio 30-299 mg/g Osteomyelitis Morbid obesity 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 deficiency [id number] syndrome NEEMA on CPAP Vitamin D deficiency Moderate non-proliferative diabetic retinopathy Diabetic polyneuropathy associated with type 2 diabetes mellitus Dyslipidemia CKD (chronic kidney disease) Diabetes type 2, uncontrolled Surgical History (Updated 07/03/24 @ 20:39 by Xochilt Singh MD) History of eye surgery S/P tooth extraction 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 Hx laparoscopic cholecystectomy Status post amputation of toe S/P cataract surgery S/P debridement History of tonsillectomy and adenoidectomy Family History Father Cerebral aneurysm CVD (cardiovascular disease) Stroke Mother DM (diabetes mellitus) Stroke Brother No problems noted. Brother No problems noted. Son No problems noted. Daughter In good health Maternal Grandmother DM (diabetes mellitus) Stroke Social History Household Members: None Housing: Unknown / Unable to assess Unable to assess alcohol history related to: Unable to respond Alcohol intake: never Patient Tobacco Use Status: Never used Tobacco e-Cigarette/Vaping Use: Never Used Second Hand Smoke Exposure: No Substance Use Type: Marijuana Advance Directives Date on File: 09/19/22 service: No Current occupational status: disabled Sexual orientation: Did not discuss. Cognitive needs: No Hearing needs: No Vision needs: Yes Review of Systems Const Denies chills and Denies fever(s) Card Reports no additional complaints and Denies syncope Resp Denies cough GI Denies abdominal pain and Denies heartburn Reports as per HPI and Denies change in libido Neuro Denies syncope Psych Denies change in libido Endo Denies change in libido Physical Exam Const General: cooperative, healthy appearing, comfortable and no acute distress Orientation/consciousness: patient oriented x3 HEENT Face and sinus: Yes normal facial exam Mouth: moist mucous membranes Neck Neck: Yes normal visual inspection, Yes full ROM and Yes trachea midline Chest Chest palpation & inspection: normal inspection of the chest Resp Effort & Inspection: normal respiratory effort, able to speak in complete sentences and no respiratory distress GI Inspection: Yes normal to inspection Back/Spine/Pelvis Cervical Spine: normal cervical lordosis Thoracic/Lumbar Spine: thoracic and lumbar spine normal to inspection Skin General skin exam: no rashes or lesions noted Neuro General: patient oriented x3, gait normal, tone normal and moves all extremities Extrem General: Yes normal to inspection and Yes capillary refill normal Office Procedures Post Void Residual Post Residual Void Post Void Residual (PVR): 27 [id number] Void Residual by ultrasound Assessment & Plan Assessment & Plan (1) BPH loc w urin obs/LUTS: Code(s): N40.1 - Benign prostatic hyperplasia with lower urinary tract symptoms Category: Medical (2) Weak urinary stream: Code(s): R39.12 - Poor urinary stream Category: Medical Plan Six-month follow-up testosterone, PVR Orders: Orders AMB Urinalysis Automated Today Z13.9 - Encounter for screening, unspecified Testosterone, Total 6 Months N40.1 - Benign prostatic hyperplasia with lower urinary tract symptoms Patient Instructions: This note is constructed using voice recognition software. While every effort has been made to ensure accuracy ferry operator errors may have been included. Imaging studies, laboratory and physical exam results were discussed and reviewed in detail. No major barriers to patient understanding were identified. An opportunity to ask questions regarding the treatment plan was provided. All questions were answered. The patient expressed understanding and agreement with the above treatment plan. The patient is aware they should contact our office by phone for worsening of their current condition or the appearance of new urologic symptoms. Compliance is encouraged with any medications and followup testing that is ordered. It is a privilege to participate in the urologic care of your patient. If you have any questions or concerns regarding treatment for the above conditions, or other urologic issues, please do not hesitate to contact me. The office telephone contact is [phone]. Sincerely, Dr Sherwin Singer MD, [facility] - Urology Compassionate Specialist Care for the Genitourinary System Coding Level of Care Code Est Pt Level 3 (33332) Complex EM visit Add On G2211 Diagnoses BPH loc w urin obs/LUTS N40.1 Weak urinary stream R39.12 CPT Codes Post Residual Void - PVR CPT Code: 42595-Pvnt Void Residual by ultrasound ([id number])
--- OUTSIDE RECORDS SUMMARY | 2024-07-11 08:59 | XMS_ITS | Clinical Summary ---
Author Organization [facility] Address [address] [place] [address] Phone Care Team Providers Care Gathering Worker Name Role Phone Xochilt Mckoy MD Primary Care Provider [phone] Allergies Active Allergy Reactions Criticality Noted Date Comments Sulfa Antibiotics 07/15/2021 Medications * This document contains information received from the source organization and may not represent a complete record from that organization. acetaminophen (TYLENOL) 325 MG tablet TAKE 1 TABLET BY MOUTH FOUR TIMES DAILY NEEDED FOR PAIN 06/29/19 21 Active Cholecalciferol (Vitamin D3) 1.25 MG (99350 UT) capsule TAKE 3 CAPSULES BY MOUTH [...] 025 Active cholecalciferol (VITAMIN D-3) 250 MCG (37215 UT) capsule Take 1 capsule (10,000 Units [...] Visit [facility] [address] [place] [address] Dick Flores MD Stage 3b chronic kidney disease (HCC) (Primary Dx) 06/07/2024 Orders Only [facility] [address] [place] [address] Dick Flores [...] Visit [facility] [address] [place] [address] Dick Flores MD [address] [phone] 10/01/2024 2:45 PM EDT Office [facility] [address] [place] [address] Dick Flores MD [address] [facility] [place] [address] Health Maintenance Due Date Last [...] * Hemoglobin A1c (07/09/2019 8:52 AM EST) [facility] Signature Hemoglobin A1C 5.4 % ALEYDA [...] average glucose, using the formula of the I1D-[id number] Average Glucose study (ADAG), Diabetes Care, Vol.31,#8, Dec. 2007 07/09/2019 8:52 AM EST us Rtama Conversion LAB BLOOD ORDERABLES Final Resu lt ALEYDA from Last 3 Months or Most Recently Relevant to Health Maintenance Insurance MEDICAID MEDICAID Care Teams Gathering Worker Relationship Specialty Start Date End Date Xochilt Mckoy MD [address] [place], [place] PCP - General 06/08/20
--- OUTSIDE RECORDS SUMMARY | 2024-07-11 08:59 | XMS_ITS | Encounter Summary ---
Author Organization [facility] Address [address] [address] Phone Care Team Providers Care Change Management Manager Name Role Phone Xochilt Mckoy MD Primary Care Provider [phone] Encounter Details Date Type Department Care Team ([facility] st Contact Info) Description 06/13/2024 2:00 PM EST Office Visit [facility] [address] [place] [phone] Dick Flores MD [address] [address] Stage 3b chronic kidney disease [...] 2:34 PM EDT documented in this encounter Progress Notes * Dick Flores MD - 06/13/2024 2:00 PM EST Images from the original note were not included. Patient Name: Juan Jose Mcknight, Male Date of : 1965, 59 y.o. Date: 07/06/2024 History of Present Illness Juan Jose Mcknight is a 59 y.o. male , [place], HLD, BPH, bipolar disorder, diabetes ~ 14 yrs, , and hxof diabetic foot ulcer w/ osteomyelitis , with CKD in a setting of DM. s/p weight loss surgery- anurag danyelle Lost > 60 lbs thus far. Doing well. Had bladder surgery last year- now no LUTS H/o hospital admit VANESSA in 2022 ;Creatinine improved ; Back to baseline orthostatic hypotension- once in jail in 2022- has not recurred since Since last visit Trulicity has been changed to ozempic for wt loss The following portions of the patient's chart were reviewed in this encounter and updated as appropriate: Allergies Meds Problems Med Hx Surg Hx Fam Hx EMR: Past Medical History: Diagnosis Date Anemia Diabetes mellitus (HCC) Hypertension Osteoarthritis Osteoporosis Stage 3 chronic kidney disease Review of Systems Constitutional: Negative for chills and fever. Respiratory: Negative for cough and shortness of breath. Cardiovascular: Negative for chest pain, palpitations and leg swelling. Gastrointestinal: Negative for abdominal pain, nausea and vomiting. Genitourinary: Negative for dysuria, frequency, hematuria and urgency. Medication List Current Outpatient Medications Medication Sig Dispense Refill acetaminophen (TYLENOL) 325 MG tablet TAKE 1 TABLET BY MOUTH FOUR TIMES DAILY NEEDED FOR PAIN atorvastatin (LIPITOR) 10 MG tablet Take 10 mg by mouth 1 (one) time each day cholecalciferol (VITAMIN D-3) 250 MCG (88914 UT) capsule Take 1 capsule (10,000 Units total) by mouth every 7 (seven) days 12 capsule 1 Cholecalciferol (Vitamin D3) 1.25 MG (81570 UT) capsule TAKE 3 CAPSULES BY MOUTH ONCE A WEEK Empagliflozin 25 MG tablet Take 25 mg by mouth 1 (one) time each day 30 tablet 11 ferrous sulfate 325 (65 Fe) MG EC tablet Take 325 mg by mouth in the morning and 325 mg at noon [id number] mg in the evening. Take with meals. Do not crush, chew, or split.. finasteride (PROSCAR) 5 MG tablet Take 5 mg by mouth 1 (one) time each day Do not crush, chew, or split. HumaLOG 100 UNIT/ML injection INJECT 110 UNITS SUBCUTANEOUSLY EVERY DAY via PUMP OF INSULIN lisinopril 5 MG tablet Take 1 tablet (5 mg total) by mouth 1 (one) time each day 30 tablet 11 mirtazapine (REMERON ANUSHA-TAB) 15 MG dispersible tablet Take 15 mg by mouth every night Ozempic, 0.25 or 0.5 MG/DOSE, 2 MG/3ML solution pen-injector INJECT 0.25 MG SUBCUTANEOUSLY EVERY 7 DAYS IN THE ABDOMEN, THIGHS OR UPPER ARM. ROTATE INJECTION SITES. sennosides-docusate sodium (SENOKOT-S) 8.6-50 MG tablet Take 1 tablet by mouth 1 (one) time each day No current facility-administered medications for this visit. Allergy List Allergies Allergen Reactions Sulfa Antibiotics Physical Exam BP 134/62 Pulse 72 Wt 206 lb (93.4 kg) SpO2 98% BMI 33.25 kg/m?? Vitals reviewed. Constitutional: He is oriented to person, place, and time. No distress. Cardiovascular: Normal rate, regular rhythm and normal heart sounds. He exhibits no edema. Pulmonary/Chest: Effort normal and breath sounds normal. No respiratory distress. Abdominal: Soft. There is no abdominal tenderness. Musculoskeletal: Normal range of motion. Neurological: He is alert and oriented to person, place, and time. Skin: Skin is warm and dry. Labs Chemistry Lab Units 09/22/23 1156 09/23/22 0000 08/15/22 1104 SODIUM mmol/L 140 135 140 POTASSIUM mmol/L 5.1 4.8 4.1 CO2 mmol/L 24 24 25 BUN mg/dL 30* 28 24* CREATININE mg/dL 1.40 1.18 1.42* CHLORIDE mmol/L 104 101 107 ALBUMIN g/dL 3.7* -- -- EGFRNAFR -- >60 -- EGFR mL/min/1.73m2 58* 60.0 51 HEMOGLOBIN g/dL -- 12.0 12.4* HEMATOCRIT % -- 37.0 37.0* PLATELETS AUTO -- 536 407* Bone Mineral Lab Units 03/28/24 0928 09/22/23 1156 09/23/22 0000 08/15/22 1104 CALCIUM mg/dL -- 8.4 8.6 8.3* VITAMIN D ng/mL 24* -- -- -- Renal US- - HH RIGHT KIDNEY: 12.1 x 5.2 x 4.9 cm (SAG x AP x TRV). The kidney is normal in size, contour, and echogenicity. Renal cortical thickness is normal. No calculi or focal parenchymal lesions. No hydronephrosis. LEFT KIDNEY: 11.7 x 5.9 x 5.6 cm (SAG x AP x TRV). The kidney is normal in size, contour, and echogenicity. Renal cortical thickness is normal. No calculi or focal parenchymal lesions. No hydronephrosis. IMPRESSION: Normal renal ultrasound. Assessment & Plan 1. Stage 3b chronic kidney disease (HCC) CKD 3b in a setting of DM H/o VANESSA due to ATN was not on ACEi or ARB due to h/o low BP/Hyperkalemia and VANESSA Worsened cr after sglt2i start- 1.4--> 2.05. Now stabilized 1.7 eGFR 30 ( CKD- epi/ cyst C 2.71). egfr based on cr alone is 41 Urine Protein:creatinine 1. 38--> 1.2 --> 0.677 after starting sglt2i Last A1c 7.9--> 6.6 ( ) HTN BP wnl now - reviewed home bp's - systolics 110-140 He needed midodrine at one point, not on it any longer.- possible side effect of cardura - not on this any longer MBD Low vitamin D Pth - 260 - cont to monitor Plan Continue Jardiance 25mg daily Cont vitamin d supplement Lisinopril 5mg daily as home bp stable - advised to continue chart home bp - based on review will consider if increasing dose next visit is possible Counselled about dm control Orders Placed This Encounter Cystatin C w/GFR CBC and Differential Basic Metabolic Panel Urinalysis with microscopic Protein, Total, Random Urine w/Creatinine (Protein/Creat Ratio) Urine Albumin / Creatinine Ratio CBC and Differential Renal Function Panel PTH, Intact Vitamin D 25 Hydroxy Urinalysis Protein, Total, Random Urine w/Creatinine (Protein/Creat Ratio) Urine Albumin / Creatinine Ratio Magnesium Phosphorus Hemoglobin A1c Iron Panel (Fe, TIBC, TSAT) Ferritin Uric Acid Return in about 3 months (around 09/11/2024). Dick Flores MD documented in this encounter Plan of Treatment Upcoming Encounters Date Type Department Care Team (Late st Contact Info) Description 08/22/2024 3:15 PM EDT Office Visit [facility] [address] [place] [address] Dick Flores MD [address] [address] 10/01/2024 2:45 PM EDT Office Visit [facility] [address] [phone] Dick Flores MD [facility] [address] [address] Scheduled Orders Name Type Priority [...] Primary documented in this encounter Care Teams Change Management Manager Relationship Specialty Start Date End Date Xochilt Mckoy MD [address] [place] [address] PCP - General 06/08/20 documented as of this encounter
--- OUTSIDE RECORDS SUMMARY | 2024-07-11 08:59 | XMS_ITS | Encounter Summary ---
Author Organization [facility] Address [address] [facility] [address] [place] [address] Phone Care Team Providers Care Gas Prover Name Role Phone Xochilt Mckoy MD Primary Care Provider [phone] Encounter Details Date Type Department Care Team (Late Contact Info) Description 09/26/2022 Telephone [facility] [address] [facility] [address] [place] [address] Jana Barger Social History Tobacco [...] - 09/26/2022 9:52 AM EDT Maricruz from [facility] pharmacy called to inquire if this PT is still receiving Retacrit. Please call [phone] Option 2 documented in this encounter Plan of Treatment Upcoming Encounters Date Type Department Care Team (Late Contact Info) Description 08/22/2024 3:15 PM EDT Office Visit [facility] [address] [place] [address] Dick Flores MD [address] [address] 10/01/2024 2:45 PM EDT Office Visit [facility] [address] [address] Dick Flores MD [address] [address] documented as of this encounter Visit Diagnoses Not on filedocumented in this encounter Care Teams Gas Prover Relationship Specialty Start Date End Date Xochilt Mckoy MD [address] [place], [place] PCP - General 06/08/20 documented as of this encounter
--- OUTSIDE RECORDS SUMMARY | 2024-07-11 08:59 | XMS_ITS | Clinical Summary ---
Author Organization 175 [facility] Address 175 [place] [address] Phone Care Team Providers Care Loan Review Analyst Name Role Phone Xochilt Singh MD Primary Care Provider Allergies Active Allergy Reactions Criticality Noted Date Comments Sulfa (Sulfonamide Antibiotics) 09/2017 Medications CYANOCOBALAMIN, VITAMIN B-12, ORAL Take by mouth. Activ e clotrimazole (LOTRIMIN) 1 % cream Apply to skin and nails daily for 3 months 2 Active dulaglutide (Trulicity) 3 mg/0.5 mL pen injector injection Inject into the skin. Active ammonium lactate (AmLactin) 12 % lotion Apply topically if needed for dry skin. 400 g 5 05/30/19 26 Active Active Problems Problem Noted Date Diagnosed Date Amputation of toe 05/02/2018 Diabetic polyneuropathy asso ciated with type 2 diabetes mellitus 05/02/2018 Status post amputation of toe of left foot 05/02 Encounters Date Type Department Care Team Description 05/30/2024 9:45 AM EST Office Visit Orthopedic Surgery [facility] [address] [address] Trevor Harris, DPM Fissure in skin [...] at Not on file Legal Sex Male 11:31 PM EST Gender Identity Not on file Sexual Orientation Not on file Obstetrics History Last Filed [...] AM EST Office Visit Orthopedic Surgery - [place] [address] [phone] Trevor Harris, DPM [address] [address] Health Maintenance Due Date Last Done Comments [...] on patient's age to complete [place] [address] MEDICAID - [place] Care Teams Loan Review Analyst Relationship Specialty Start Date End Date Xochilt Singh MD [address] [place] [address] , [address] Physician Associ D/B/A: [facility] [place] PCP - General Internal Medicine 04/05/21
--- OUTSIDE RECORDS SUMMARY | 2024-07-11 08:59 | XMS_ITS | Encounter Summary ---
Author Organization [facility] Address [address] [address] Phone Care Team Providers Care Tire Assembler Name Role Phone Xochilt Mckoy MD Primary Care Provider [phone] Encounter Details Date Type Department Care Team (Late Contact Info) Description 06/07/2024 Orders Only [facility] [address] [place] [address] Dick Flores MD [address] [address] Stage 3b chronic kidney disease [...] Office Visit [facility] [address] [place] [address] Dick Flores MD [address] [address] 10/01/2024 2:45 PM EDT Office Visit [facility] [address] [address] Dick Flores MD 3550 [facility] [address] [place] [address] documented as of this encounter Visit Diagnoses Diagnosis Stage 3b chronic kidney disease (HCC) documented in this encounter Care Teams Tire Assembler Relationship Specialty Start Date End Date Xochilt Mckoy MD [address] [facility] [address] [place] [address] PCP - General 06/08/20 documented as of this encounter
== END 2024-07-11 09:15 | disposition home or self-care (01) ==
PROVIDERS: PCP Hospitalist; Visit Provider Urology
DX: N40.1 Benign prostatic hyperplasia with lower urinary tract symptoms (principal); R39.12 Poor urinary stream; Z13.9 Encounter for screening, unspecified
CPT/HCPCS: 99213; G2211

== ENCOUNTER → 2024-07-11 08:46 | Outpatient (BNVA) | payer OTHER, SELFPAY | PROVIDERS: PCP Hospitalist; Visit Provider Urology | DX: N40.1 Benign prostatic hyperplasia with lower urinary tract symptoms (principal); R39.12 Poor urinary stream | CPT/HCPCS: 51798; 81003; 99212 ==

== ENCOUNTER 2024-08-30 09:01 | Outpatient (REF) | payer OTHER, SELFPAY ==
--- OUTSIDE RECORDS SUMMARY | 2024-08-30 09:40 | XMS_ITS | Clinical Summary ---
Author Organization [facility] Address [address] [place] [address] Phone Care Team Providers Care Plaster Pattern Caster Name Role Phone Xochilt Mckoy MD Primary Care Provider [phone] Allergies Active Allergy Reactions Criticality Noted Date Comments Sulfa Antibiotics 07/15/2021 Medications * This document contains information received from the source organization and may not represent a complete record from that organization. acetaminophen (TYLENOL) 325 MG tablet TAKE 1 TABLET BY MOUTH FOUR TIMES DAILY NEEDED FOR PAIN 021 Active HumaLOG 100 UNIT/ML injection INJECT 110 UNITS SUBCUTANEOUSLY EVERY DAY via PUMP OF INSULIN 022 Active atorvastatin (LIPITOR) 10 MG tablet Take 10 mg by mouth 1 (one) time each day Active mirtazapine (REMERON ANUSHA-TAB) 15 MG dispersible tablet Take 15 mg by mouth every night Active sennosides-doc usate sodium (SENOKOT-S) 8.6-50 MG tablet Take 1 [...] (one) time each day 30 tablet 11 024 2024 Active lisinopril 5 MG tablet Take 1 tablet (5 mg total) by mouth 1 (one) time each day 30 tablet 11 024 2024 Active Ozempic, 0.25 or 0.5 MG/DOSE, 2 MG/3ML solution pen-injector INJECT 0.25 MG SUBCUTANEOUSLY EVERY 7 DAYS IN THE ABDOMEN, THIGHS OR UPPER ARM. ROTATE INJECTION SITES. Active D-3-5 125 MCG (5000 UT) capsule TAKE 2 CAPSULES BY MOUTH EVERY 7 DAYS 24 capsule 1 025 Active Cholecalcifero l (Vitamin D3) 1.25 MG (52259 UT) capsule TAKE 3 CAPSULES BY MOUTH ONCE A WEEK 021 2024 Discontinued cholecalcifero l (VITAMIN D-3) 250 MCG (93910 UT) capsule Take 1 capsule (10,000 Units total) by mouth every 7 (seven) days 12 capsule 1 024 2024 Discontinued Active Problems Problem Noted Date Diagnosed Date [...] Encounters Date Type Department Care Team Description 08/25/2024 Refill [facility] the [address] [place] [address] Dick Flores MD 06/13/2024 2:00 PM EST Office Visit [facility] the [address] [place] [address] Dick Flores MD Stage 3b chronic kidney disease (HCC) (Primary Dx) 06/07/2024 Orders Only [facility] the [address] [place] [address] Dick Flores [...] Care Team (Late st Contact Info) Description 09/11/2024 Orders Only [facility] the [address] [place] [address] Dick Flores MD [address] [facility] [address] [place] [address] Stage 3b chronic kidney disease (HCC) 10/01/2024 2:45 PM EDT Office Visit [facility] PRashida 3550 [facility] [address] [place] [address] Dick Flores MD 3559 [facility] [address] [place] [address] Health Maintenance Due Date [...] Diabetes: Visual Foot Exam 06/28/2020 Influenza Vaccine (Season Ended) 2025 Procedures Procedure Name Priority Date/Time Associated Diagnosis Comments HEMOGLOBIN A1C Routine 07/09/2019 8:52 AM EST from Last 3 Months or Most Recently Relevant to Health Maintenance Results * Hemoglobin A1c (07/09/2019 8:52 AM EST) Pathologist [facility] Hemoglobin A1C 5.4 % [place] Comment: ?Hemoglobin [...] ? sample. Estimated Average Glucose 108 MG/DL MIGUELKAY Comment: eAG = Estimated average glucose which is %A1C expressed as average glucose, using the formula of the [id number] Average Glucose study (ADAG), Diabetes Care, Vol.31,#8, Dec. 2007 07/09/2019 8:52 AM EST us Rtama Conversion LAB BLOOD ORDERABLES Final Resu lt [place] from Last 3 Months or Most Recently Relevant to Health Maintenance Insurance MEDICAID Member Subscriber Plan / Payer (Ef fective 2023-Present) Name:Juan Jose Sherman Relation to Subscriber:Self Name:Juan Jose Sherman Payer ID:Not on file Group ID:[id number] Type:Not on file Address: [address] MEDICAID Care Teams Plaster Pattern Caster Relationship Specialty Start Date End Date Xochilt Mckoy MD [address] [place], [place] PCP - General 06/08/20
--- OUTSIDE RECORDS SUMMARY | 2024-08-30 09:40 | XMS_ITS | Encounter Summary ---
Author Organization [facility] Address [address] [address] Phone Care Team Providers Care Trains Dispatcher Supervisor Name Role Phone Xochilt Mckoy MD Primary Care Provider [phone] Reason for Visit * Reason Comments Med Refill Encounter Details Date Type Department Care Team (Late Contact Info) Description 08/25/2024 Refill [facility] [address] [place] [address] Dick Flores MD [address] [address] Social History Tobacco Use Types Packs/Day Years [...] Department Care Team (Late Contact Info) Description 09/11/2024 Orders Only [facility] [address] [place] [address] Dick Flores MD [address] [address] Stage 3b chronic kidney disease (HCC) 10/01/2024 2:45 PM EDT Office Visit [facility] [address] [address] Dick Flores MD [address] [phone] documented as of this encounter Visit Diagnoses Not on filedocumented in this encounter Care Teams Trains Dispatcher Supervisor Relationship Specialty Start Date End Date Xochilt Mckoy MD [address] [place] [address] PCP - General 06/08/20 documented as of this encounter
--- OUTSIDE RECORDS SUMMARY | 2024-08-30 09:40 | XMS_ITS | Clinical Summary ---
Author Organization 175 [facility] Address 175 [place] [address] Phone Care Team Providers Care Balancing Machine Operator Name Role Phone Xochilt Singh MD Primary Care Provider [phone] Allergies Active Allergy Reactions Criticality Noted Date [...] needed for dry skin. 400 g 5 07/30/19 26 Active Active Problems Problem Noted Date Diagnosed Date Amputation of toe 05/02/2018 Diabetic polyneuropathy asso ciated with type 2 diabetes mellitus 05/02/2018 Status post amputation of toe of left foot 05/02 Encounters Date Type Department Care Team Description 07/29/2024 10:45 AM EST Office Visit Orthopedic Surgery [facility] [address] [address] Trevor Harris, DPMeg Ulcer of toe of left foot, limited to breakdown of skin (CMS/HCC) (Primary Dx); Fissure in skin of both feet; Dermatophytosis of nail; Pain in toe of right foot; Pain in toe of left foot; Diabetic mononeuropathy simplex (CMS/HCC); Type II diabetes mellitus with peripheral circulatory disorder (CMS/HCC); Corns and callosities; Metatarsalgia of both feet from Last 3 Months Social History Tobacco [...] - - Weight 81.2 kg (179 lb) 07/29/2024 10:56 AM EST Height 165.1 cm (5' 5 ) 07/29/2024 10:56 AM EST Body Mass Index 29.79 07/29/2024 10:56 AM EST Plan of Treatment Upcoming Encounters Date Type Department Care Team (Late st Contact Info) Description 10/29/2024 10:30 AM EDT Office Visit Orthopedic Surgery - [place] [address] [phone] Trevor Harris, DPM [address] [address] Health Maintenance Due Date Last Done Comments Diabetes: Annual GFR (Glomerular Filtration Rate) 1965 Diabetes: Annual Foot Exam 1975 Diabetes: Annual Retina Eye Exam 1975 Hepatitis B Vaccines (3 of 3 - 19+ 3-dose series) 01/06/2015 11/11/2014, 07/03/2014 Zoster Vaccines (1 of 2) 2015 Cholesterol Screening (Lipid Panel) 05/08/2022 Colorectal Cancer Screening: Colonoscopy 05/08/2022 Depression Screening 05/08/2022 Diabetes: Annual Urine Albumin-Creatinine Ratio (uACR) 05/08/2022 Diabetes: Blood Sugar Control Test (HGBA1C) 05/08/2022 HIV Screening 05/08/2022 Hepatitis C Screening 05/08/2022 Social Influencers of Health Screening 05/08/2022 COVID-19 Vaccine ( season) 2024 06/22/2023, 10/28/2021, 09/04/2020, Additional history exists Influenza Vaccine (#1) 2024 3, 02/25/2022, 03/25/2021, Additional history exists DTaP,Tdap,and Td Vaccines (3 - Td or Tdap) 01/08/2032 01/07/2022, 01/18/2012 RSV Immunization Adult Patients (1 - 1-dose 75+ series) 2040 Pneumococcal Vaccine: 50+ Years Completed 02/23/2023, 01/18/2012 Pneumococcal Vaccine: Pediatrics (0 to 5 Years) and At-Risk Patients (6 to 64 Years) Completed 02/23/2023, 01/18/2012 HIB Vaccines Aged Out No longer eligi [...] patient's age to complete this topic Meningococcal B Vacine Aged Out No lo nger eligible based on patient's age to complete this topic RSV Immunization Patients Under 20 months Aged Out No longer eligible based on patient's age to complete this topic Varicella Vaccines Aged Out No longer eligible based on patient's age to complete this topic Insurance MEDICAID - [place] Care Teams Balancing Machine Operator Relationship Specialty Start Date End Date Xochilt Singh MD [address] [place] [address] , [address] [facility] D/B/A: [facility] [place] PCP - General Internal Medicine 04/05/21
--- OUTSIDE RECORDS SUMMARY | 2024-08-30 09:40 | XMS_ITS | Encounter Summary ---
Author Organization [facility] Address [address] [place] [address] Phone Care Team Providers Care Web Ui Developer Name Role Phone Xochilt Mckoy MD Primary Care Provider [phone] Encounter Details Date Type Department Care Team (Late Contact Info) Description 09/26/2022 Telephone [facility] [address] [place] [address] Jana Barger Social History Tobacco [...] - 09/26/2022 9:52 AM EDT Maricruz from [facility] pharmacy called to inquire if this PT is still receiving Retacrit. Please call [phone] Option 2 documented in this encounter Plan of Treatment Upcoming Encounters Date Type Department Care Team (Late Contact Info) Description 09/11/2024 Orders Only [facility] the [address] [place] [address] Dick Flores MD [address] [address] Stage 3b chronic kidney disease (HCC) 10/01/2024 2:45 PM EDT Office Visit [facility] [address] [address] Dick Flores MD [address] [address] documented as of this encounter Visit Diagnoses Not on filedocumented in this encounter Care Teams Web Ui Developer Relationship Specialty Start Date End Date Xochilt Mckoy MD [address] [place], [place] PCP - General 06/08/20 documented as of this encounter
[2024-09-05 16:32] LABS: Testosterone, Total 241 ng/dL (250-1100)
== END 2024-08-30 09:02 | disposition home or self-care (01) ==
LOC: HO.10HDL 09:01
PROVIDERS: Visit Provider Urology
DX: N40.1 Benign prostatic hyperplasia with lower urinary tract symptoms (principal)
CPT/HCPCS: 36415; 84403

== ENCOUNTER 2024-09-10 13:44 | Outpatient (AMB) | payer OTHER, SELFPAY ==
--- NOTE | 2024-09-10 13:45 | A.OFFVIS_ITS ---
Vital Signs 09/10/24 13:46 Height 5 ft 5 in Weight 199 lb 8.293 oz BMI 33.2 BP 112/54 L Blood Pressure Location Lt brachial Position Sitting Pulse 86 Pulse Source Pulse Oximeter Pulse Oximetry (%) 96 Oxygen Delivery Method Room Air Intake Visit Reasons: Obstructive sleep apnea Intake Note: pt says cpap is going well uses 4-5 hrs a night Allergies Sulfa (Sulfonamide Antibiotics) [SULFA (SULFONAMIDE ANTIBIOTICS)] Allergy (Intermediate, Verified 09/10/24 14:08) hives Medication List - Last Reconciled 09/10/24 by Olaf Douglas MD acetaminophen 650 mg (2 x 325 mg) PO BID 30 days atorvastatin 10 mg PO DAILY blood pressure test kit-medium As directed blood sugar diagnostic (FreeStyle Test strips) Use 4 test strip once a day blood-glucose meter (FreeStyle Lite Meter kit) As directed cholecalciferol (vitamin D3) PO [compression stockings knee high As directed] docusate sodium 100 mg PO BID PRN empagliflozin (Jardiance) 25 mg PO DAILY epinephrine 0.3 mg IM Q10M PRN ergocalciferol (vitamin D2) (Vitamin D2) 1,250 mcg PO QWEEK 90 days ferrous sulfate (FeroSul) 325 mg PO DAILY 30 days finasteride 5 mg PO DAILY 90 days insulin lispro subcut lisinopril mg PO DAILY mirtazapine 30 mg PO BEDTIME 90 days pen needle, diabetic (BD Ultra-Fine Short Pen Needle) As directed [raised toilet seat As directed] semaglutide (Ozempic) 0.25 mg (0.368 mL) subcut QWEEK 4 weeks [tub seat As directed] walker (Ultra-Light Rollator misc) As directed [wheelchair electric As directed] Do you need a note to return to daycare/school/sports/work: No HPI HPI Obstructive sleep apnea: Details: This 59 years old gentleman is a known case of gross obesity and obstructive sleep apnea. He has been using CPAP for many years. Last time he was seen by me here in the office was in 2022 , at that time he indicated that he had lost significant weight and did not need to use the CPAP. Subsequently he has not been seen by me up until today. He states that his sleep was poor, so he went back on to using CPAP. Today he comes to see me for follow-up as he needs new supplies. Last year he spent a few months in a [facility] facility because he had psychotic symptoms . He is a known case of chronic Schizophrenic disorder . He also has multiple comorbidities, including diabetes mellitus, hypertension, hyperlipidemia and renal disease. He claims that he is using his CPAP very regularly every night, however he can not keep the mask on for more than 4 hours per night. He claims that his sleep is okay. 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 Diabetic nephropathy associated with type 2 diabetes mellitus Mood disorder Diabetes mellitus Bipolar disorder with psychotic features Hypertension Osteomyelitis Bipolar 1 disorder Difficulty walking Neuromuscular dysfunction of bladder PVD (peripheral vascular disease) Benign prostatic hyperplasia Hyperlipidemia Restrictive lung disease Bacteremia Foot ulcer Headache Patellofemoral arthritis of left knee Microalbuminuria Left knee pain Foot osteomyelitis, right Anemia in chronic kidney disease Right foot pain PAD (peripheral artery disease) Anemia CKD (chronic kidney disease) stage 3, GFR 30-59 ml/min CKD stage G3b/A2, GFR 30-44 and albumin creatinine ratio 30-299 mg/g Osteomyelitis Morbid obesity 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 deficiency 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 Brother No problems noted. Son No problems noted. Daughter In good health Maternal Grandmother DM (diabetes mellitus) Stroke Social History Household Members: None Housing: Unknown / Unable to assess Unable to assess alcohol history related to: Unable to respond Alcohol intake: never Patient Tobacco Use Status: Never used Tobacco e-Cigarette/Vaping Use: Never Used Second Hand Smoke Exposure: No Substance Use Type: Marijuana Advance Directives Date on File: 09/19/22 service: No Current occupational status: disabled Sexual orientation: Did not discuss. Cognitive needs: No Hearing needs: No Vision needs: Yes Review of Systems Const All systems reviewed & are unremarkable except as noted in HPI and below Eyes Reports no additional complaints ENT Reports nasal congestion (off and on ) Card Denies chest pain, Denies irregular heart rhythm and Denies leg edema Resp Reports as per HPI, Denies cough and Denies wheezing GI Reports no additional complaints Reports no additional complaints Musc Reports no additional complaints Skin/Breast Reports system reviewed and no additional complaints, except as documented Neuro Reports no additional complaints Psych Reports no additional complaints Endo Reports other (diabetes M ) Aller/Immun Denies wheezing Physical Exam Vital Signs: Last Vital Signs Pulse 86 09/10/24 13:46 BP 112/54 L 09/10/24 13:46 Pulse Ox 96 09/10/24 13:46 Oxygen Delivery Method Room Air 09/10/24 13:46 BMI result Body Mass Index 33.2 Const General: comfortable, no acute distress, alert and awake Orientation/consciousness: patient oriented x3 HEENT Head: Yes normal to inspection General nose exam: No nasal polyps present and No nasal discharge present Face and sinus: Yes sinuses nontender Mouth: oropharynx normal Throat: Yes posterior oropharynx normal Eyes General: appearance normal, both eyes and all related structures Neck Neck: Yes normal visual inspection, Yes no lymphadenopathy, Yes trachea midline and Yes no JVD Thyroid: Thyroid normal Chest Chest palpation & inspection: normal inspection of the chest, normal palpation of entire chest wall and no tenderness Resp Effort & Inspection: normal respiratory effort and no cough Auscultation: no crackles and no wheezes Cardio Palpation: normal PMI Rate: regular rate Rhythm: regular rhythm Heart sounds: no gallops and no murmurs GI Palpation (GI): Soft to palpation, nontender, No hepatosplenomegaly present and no masses Auscultation: normal bowel sounds Other: HAS RIVERS CATHETER IN PLACE Back/Spine/Pelvis Thoracic/Lumbar Spine: thoracic and lumbar spine normal to inspection and thoraco-lumbar ROM limited Skin General skin exam: no rashes or lesions noted Neuro General: patient oriented x3, No gait normal (NON AMBULATORY, PATIENT IN WHEELCHAIR) and No no focal motor deficits (HAS GENERALIZED WEAKNESS OF THE MUSCLES IN LOWER EXTREMITIES) Cranial nerves: Yes CN's II-XII intact bilaterally Extrem General: Yes normal to inspection, Yes no clubbing, cyanosis or edema and Yes no calf tenderness Psych Appearance: grossly normal Speech and movement: Normal speech and movement present Results Reviewed Results Reviewed: Compliance report for the last 30 nights is reviewed. He has used CPAP 27/30 nights, 90%. Average use it per night is 4 hours 10 minutes. Pressure is 10 cm. He has only mild degree of leak. Residual AHI 1.3 Assessment & Plan Assessment & Plan (1) NEEMA (obstructive sleep apnea): Comment: He has history of obstructive sleep apnea for many years, and had used CPAP very regularly.Remained non compliant to the use, of CPAP In 2022 after significant weight loss he had stopped using the CPAP for a while. But then afterwards his sleep was poor and he went back to using the CPAP. At present his compliance is good except that the usage is around 4 hours most of the time. Code(s): G47.33 - Obstructive sleep apnea (adult) (pediatric) Category: Medical Plan: I talked to him through the warehouse team leader and encouraged him to use CPAP for at least 5-6 hours every night. Order for new supplies is being sent to the DME supplier. (2) Restrictive lung disease: Comment: Patient had moderate degree of restrictive lung disease in 2017 related to his morbid obesity. With successful weight loss, after gastric bypass surgery, the restrictive component has much improved. Last Spirometry in 2022 showed only mild degree of restrictive disorder, Code(s): J98.4 - Other disorders of lung Category: Medical Plan: Advised to keep his weight down. Do deep breathing exercises daily. Coding Level of Care Code Est Pt Level 4 (02387) Diagnoses NEEMA (obstructive sleep apnea) G47.33 Restrictive lung disease J98.4
[2024-09-10 13:46] VITALS: BP 112/54; PULSE 86; O2SAT 96; BMI 33.2
--- OUTSIDE RECORDS SUMMARY | 2024-09-10 16:53 | XMS_ITS | Encounter Summary ---
Author Organization [facility] Address [address] [place] [address] Phone Care Team Providers Care Knowledge Management Advisor Name Role Phone Xochilt Mckoy MD Primary Care Provider [phone] Encounter Details Date Type Department Care Team (Late Contact Info) Description 09/26/2022 Telephone [facility] [address] [place] [address] Jana Barger Social History Tobacco [...] 09/26/2022 9:52 AM EDT Maricruz from [facility] pharmacy called to inquire if this PT is still receiving Retacrit. Please call [phone] Option 2 documented in this encounter Plan of Treatment Upcoming Encounters Date Type Department Care Team (Late Contact Info) Description 09/11/2024 Orders Only [facility] [address] [place] [address] Dick Flores MD [address] [address] Stage 3b chronic kidney disease (HCC) 10/01/2024 2:45 PM EDT Office Visit [facility] [address] [address] Dick Flores MD [address] [address] documented as of this encounter Visit Diagnoses Not on filedocumented in this encounter Care Teams Knowledge Management Advisor Relationship Specialty Start Date End Date Xochilt Mckoy MD [address] [place], [place] PCP - General 06/08/20 documented as of this encounter
--- OUTSIDE RECORDS SUMMARY | 2024-09-10 16:53 | XMS_ITS | Clinical Summary ---
Author Organization [address] [facility] Address [address] [place] [address] Phone Care Team Providers Care Interpretive Program Coordinator Name Role Phone Xochilt Singh MD Primary Care Provider [phone] Allergies Active Allergy Reactions Criticality Noted Date [...] Noted Date Diagnosed Date Amputation of toe ([facility] V24) 05/02/2018 Diabetic polyneuropathy asso ciated with type 2 diabetes mellitus ([facility] V24, [facility] V28) 05/02/2018 Status post amputation of toe of left foot ([facility] V24) 05/02/2018 Encounters Date Type Department Care Team Description 07/29/2024 10:45 AM EST Office Visit Orthopedic Surgery [facility] [address] [facility] [address] [place] [address] Trevor Harris, DPM Ulcer of toe of left foot, limited to breakdown of skin ([facility] V24, [facility] V28) (Primary Dx); Fissure in skin of both feet; Dermatophytosis of nail; Pain in toe of right foot; Pain in toe of left foot; Diabetic mononeuropathy simplex ([facility] V24, [facility] V28); Type II diabetes mellitus with peripheral circulatory disorder ([facility] V24, [facility] V28); Corns and callosities; Metatarsalgia of both feet [...] AM EDT Office Visit Orthopedic Surgery - [place] [address] [address] Trevor Harris, DPM [address] [address] Health Maintenance Due Date Last Done Comments [...] 10/28/2021, 09/04/2020, Additional history exists Influenza Vaccine (Season Ended) 2025 02/23/2023, 02/25/2022, 03/25/2021, Additional history exists DTaP,Tdap,and Td [...] age to complete this topic Meningococcal B Vaccine Aged Out No l onger eligible based on patient's age to complete this topic RSV Immunization Patients Under 20 months Aged Out No longer eligible based on patient's age to complete this topic Varicella Vaccines Aged Out No longer eligible based on patient's age to complete this topic Insurance [place] - [place] Care Teams Interpretive Program Coordinator Relationship Specialty Start Date End Date Xochilt Singh MD [address] [place] [address] , [facility] [address] [facility] Physician Associ D/B/A: [facility] [place] PCP - General Internal Medicine 04/05/21
--- OUTSIDE RECORDS SUMMARY | 2024-09-10 16:53 | XMS_ITS | Clinical Summary ---
Author Organization [facility] Address [address] [place] [address] Phone Care Team Providers Care Pin Maker Name Role Phone Xochilt Mckoy MD Primary Care Provider [phone] Allergies Active Allergy Reactions Criticality Noted Date [...] Active Cholecalcifero l (Vitamin D3) 1.25 MG (06385 UT) capsule TAKE 3 CAPSULES BY MOUTH ONCE A WEEK 021 2024 Discontinued cholecalcifero l (VITAMIN D-3) 250 MCG (87779 UT) capsule Take 1 capsule (10,000 Units [...] Refill [facility] [address] [place] [address] Dick Flores MD 06/13/2024 2:00 PM EST Office Visit [facility] [address] [place] [phone] Dick Flores MD Stage 3b chronic kidney disease (HCC) (Primary Dx) from Last 3 Months Family History Medical [...] Only [facility] [address] [place] [address] Dick Flores MD [address] [address] Stage 3b chronic kidney disease (HCC) 10/01/2024 2:45 PM EDT Office Visit [facility] [address] [facility] [address] [place] [phone] Dick Flores MD [address] [facility] [address] [place] [address] Health Maintenance Due Date Last Done Comments Hepatitis B Vaccine (1 of 3 - 19+ 3-dose series) 1984 Pneumococcal Vaccine: 50+ Ye ars (1 of 2 - PCV) 1984 Colorectal Cancer Screening: Annual FOBT 2014 [...] * Hemoglobin A1c (07/09/2019 8:52 AM EST) Hemoglobin A1C 5.4 % ALEYDA Comment: ?Hemoglobin [...] average glucose, using the formula of the I3T-Pocaikz Average Glucose study (ADAG), Diabetes Care, Vol.31,#8, 2007 07/09/2019 8:52 AM EST us Rtama Conversion LAB BLOOD ORDERABLES Final Resu lt ALEYDA from Last 3 Months or Most Recently Relevant to Health Maintenance Insurance Medicaid Medicaid Care Teams Pin Maker Relationship Specialty Start Date End Date Xochilt Mckoy MD [address] [place], [place] PCP - General 06/08/20
== END 2024-09-10 14:07 | disposition home or self-care (01) ==
LOC: HO.HPS 13:44
PROVIDERS: PCP Internal Medicine; Visit Provider Internal Medicine
DX: G47.33 Obstructive sleep apnea (adult) (pediatric) (principal); J98.4 Other disorders of lung
CPT/HCPCS: 99214

== ENCOUNTER → 2024-09-10 13:44 | Outpatient (BNVA) | payer OTHER, SELFPAY | PROVIDERS: PCP Internal Medicine; Visit Provider Internal Medicine | DX: G47.33 Obstructive sleep apnea (adult) (pediatric) (principal); J98.4 Other disorders of lung; Z99.89 Dependence on other enabling machines and devices | CPT/HCPCS: 99212 ==

== ENCOUNTER 2024-09-12 10:43 | Outpatient (AMB) | payer OTHER, SELFPAY ==
--- NOTE | 2024-09-12 10:44 | A.OFFVIS_ITS ---
Intake Visit Reasons: 6m/PVR(labs?) Intake Note: Patient is present for 6M/PVR/LABS Urology Medication: Antibiotic Allergy: Blood Thinner: Allergies Sulfa (Sulfonamide Antibiotics) [SULFA (SULFONAMIDE ANTIBIOTICS)] Allergy (Intermediate, Verified 09/10/24 14:08) hives HPI Comments Details: Juan Jose is a pleasant Citizen Of The [place]-speaking male. He is a patient Dr. Kee. He is seen the following urologic conditions - neurogenic bladder - lower urinary tract symptoms - hypogonadism Hypo gonadal Start tadalafil 5 mg daily for bladder stability Follow in 6 months with testosterone - current HbA1c 7.6 Is on Jardiance 25 mg. Does drink 6-7 bottles of water per day. Nocturia x1. 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 Diabetic nephropathy associated with type 2 diabetes mellitus Mood disorder Diabetes mellitus Bipolar disorder with psychotic features Hypertension Osteomyelitis Bipolar 1 disorder Difficulty walking Neuromuscular dysfunction of bladder PVD (peripheral vascular disease) Benign prostatic hyperplasia Hyperlipidemia Restrictive lung disease Bacteremia Foot ulcer Headache Patellofemoral arthritis of left knee Microalbuminuria Left knee pain Foot osteomyelitis, right Anemia in chronic kidney disease Right foot pain PAD (peripheral artery disease) Anemia CKD (chronic kidney disease) stage 3, GFR 30-59 ml/min CKD stage G3b/A2, GFR 30-44 and albumin creatinine ratio 30-299 mg/g Osteomyelitis Morbid obesity 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 deficiency [id number] syndrome NEEMA on CPAP Vitamin D deficiency Moderate non-proliferative diabetic retinopathy Diabetic polyneuropathy associated with type 2 diabetes mellitus Dyslipidemia CKD (chronic kidney disease) Diabetes type 2, uncontrolled Surgical History History of eye surgery S/P tooth extraction 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 Hx laparoscopic cholecystectomy Status post amputation of toe S/P cataract surgery S/P debridement History of tonsillectomy and adenoidectomy Family History Father Cerebral aneurysm CVD (cardiovascular disease) Stroke Mother DM (diabetes mellitus) Stroke Brother No problems noted. Brother No problems noted. Son No problems noted. Daughter In good health Maternal Grandmother DM (diabetes mellitus) Stroke Social History Household Members: None Housing: Unknown / Unable to assess Unable to assess alcohol history related to: Unable to respond Alcohol intake: never Patient Tobacco Use Status: Never used Tobacco e-Cigarette/Vaping Use: Never Used Second Hand Smoke Exposure: No Substance Use Type: Marijuana Advance Directives Date on File: 09/19/22 service: No Current occupational status: disabled Sexual orientation: Did not discuss. Cognitive needs: No Hearing needs: No Vision needs: Yes Review of Systems Const Denies chills and Denies fever(s) Card Reports no additional complaints and Denies syncope Resp Denies cough GI Denies abdominal pain and Denies heartburn Reports as per HPI and Denies change in libido Neuro Denies syncope Psych Denies change in libido Endo Denies change in libido Physical Exam Const General: cooperative, healthy appearing, comfortable and no acute distress Orientation/consciousness: patient oriented x3 HEENT Face and sinus: Yes normal facial exam Mouth: moist mucous membranes Neck Neck: Yes normal visual inspection, Yes full ROM and Yes trachea midline Chest Chest palpation & inspection: normal inspection of the chest Resp Effort & Inspection: normal respiratory effort, able to speak in complete sentences and no respiratory distress GI Inspection: Yes normal to inspection Back/Spine/Pelvis Cervical Spine: normal cervical lordosis Thoracic/Lumbar Spine: thoracic and lumbar spine normal to inspection Skin General skin exam: no rashes or lesions noted Neuro General: patient oriented x3, gait normal, tone normal and moves all extremities Extrem General: Yes normal to inspection and Yes capillary refill normal Assessment & Plan Assessment & Plan (1) Hypogonadism in male: Code(s): E29.1 - Testicular hypofunction Category: Medical (2) Weak urinary stream: Code(s): R39.12 - Poor urinary stream Category: Medical (3) Hypotonic neurogenic bladder: Code(s): N31.9 - Neuromuscular dysfunction of bladder, unspecified Category: Medical Plan Six-month follow-up testosterone level Orders: Orders Follicle Stimulating Hormone 6 Months E29.1 - Testicular hypofunction AMB Urinalysis Automated 6 Months Z13.9 - Encounter for screening, unspecified Testosterone, Total 6 Months E29.1 - Testicular hypofunction Lutenizing Hormone 6 Months E29.1 - Testicular hypofunction Sex Hormone Binding Globulin 6 Months E29.1 - Testicular hypofunction Bioavailable Testosterone 6 Months E29.1 - Testicular hypofunction Medications: New tadalafil 5 mg PO DAILY 90 days 90 tabs 1RF sexual activity N40.1 - Benign prostatic hyperplasia with lower urinary tract symptoms Discontinued finasteride Discontinued Reason: Patient Completed Course 5 mg PO DAILY 90 days 90 tabs 1RF N31.9 - Neuromuscular dysfunction of bladder, unspecified Patient Instructions: This note is constructed using voice recognition software. While every effort has been made to ensure accuracy commercial photographer errors may have been included. Imaging studies, laboratory and physical exam results were discussed and reviewed in detail. No major barriers to patient understanding were identified. An opportunity to ask questions regarding the treatment plan was provided. All questions were answered. The patient expressed understanding and agreement with the above treatment plan. The patient is aware they should contact our office by phone for worsening of their current condition or the appearance of new urologic symptoms. Compliance is encouraged with any medications and followup testing that is ordered. It is a privilege to participate in the urologic care of your patient. If you have any questions or concerns regarding treatment for the above conditions, or other urologic issues, please do not hesitate to contact me. The office telephone contact is [phone]. Sincerely, Dr Sherwin Singer MD, ALLIE [facility] - Urology Compassionate Specialist Care for the Genitourinary System Coding Level of Care Code Est Pt Level 4 (88931) Complex EM visit Add On G2211 Diagnoses Hypogonadism in male E29.1 Weak urinary stream R39.12 Hypotonic neurogenic bladder N31.9
--- OUTSIDE RECORDS SUMMARY | 2024-09-12 12:59 | XMS_ITS | Clinical Summary ---
Author Organization [facility] Address [address] [place] [address] Phone Care Team Providers Care Resistance Machine Welder Setter Name Role Phone Xochilt Mckoy MD Primary Care Provider [phone] Allergies Active Allergy Reactions Criticality Noted Date [...] Active Cholecalcifero l (Vitamin D3) 1.25 MG (27625 UT) capsule TAKE 3 CAPSULES BY MOUTH ONCE A WEEK 021 2024 Discontinued cholecalcifero l (VITAMIN D-3) 250 MCG (19501 UT) capsule Take 1 capsule (10,000 Units [...] Encounters Date Type Department Care Team Description 09/11/2024 Orders Only [facility] [address] [place] [address] Dick Flores MD Stage 3b chronic kidney disease (HCC) 08/25/2024 Refill [facility] [address] [place] [phone] Dick Flores MD from Last 3 Months Family History Medical [...] Care Team (Late st Contact Info) Description 10/01/2024 2:45 PM EDT Office Visit [facility] [address] [phone] Dick Flores MD [address] [address] Health Maintenance Due Date Last Done [...] average glucose, using the formula of the X7D-Cchwgbn Average Glucose study (ADAG), Diabetes Care, Vol.31,#8, Dec. 2007 07/09/2019 8:52 AM EST us Rtama Conversion LAB BLOOD ORDERABLES Final [facility]u [facility] from Last 3 Months or Most Recently Relevant to Health Maintenance Insurance Care Teams Resistance Machine Welder Setter Relationship Specialty Start Date End Date Xochilt Mckoy MD [address] [place], [place] PCP - General 06/08/20
--- OUTSIDE RECORDS SUMMARY | 2024-09-12 12:59 | XMS_ITS | Clinical Summary ---
Author Organization 175 [facility] Address 175 [place] [address] Phone Care Team Providers Care School Program Director Name Role Phone Xochilt Singh MD Primary Care Provider [phone] Allergies Active Allergy Reactions Criticality Noted Date [...] Noted Date Diagnosed Date Amputation of toe ([facility] V24) 05/02/2018 Diabetic polyneuropathy asso ciated with type 2 diabetes mellitus ([facility] V24, [facility] V28) 05/02/2018 Status post amputation of toe of left foot ([facility] V24) 05/02/2018 Encounters Date Type Department Care Team Description 07/29/2024 10:45 AM EST Office Visit Orthopedic Surgery [facility] 250 175 [facility] [address] [place] [address] Trevor Harris, DPM Ulcer of toe of left foot, limited to breakdown of skin ([facility] V24, [facility] V28) (Primary Dx); Fissure in skin of both feet; Dermatophytosis of nail; Pain in toe of right foot; Pain in toe of left foot; Diabetic mononeuropathy simplex ([facility] V24, [facility] V28); Type II diabetes mellitus with peripheral circulatory disorder ([facility] V24, [facility] V28); Corns and callosities; Metatarsalgia of both [...] AM EDT Office Visit Orthopedic Surgery - [place] [address] [address] Trevor Harris, DPM [address] [address] Health Maintenance Due Date Last Done Comments [...] to complete this topic Insurance MEDICAID - [place] Care Teams School Program Director Relationship Specialty Start Date End Date Xochilt Singh MD [address] [place] [address] , [facility] 101 [facility] D/B/A: [facility] [place] PCP - General Internal Medicine 04/05/21
--- OUTSIDE RECORDS SUMMARY | 2024-09-12 12:59 | XMS_ITS | Encounter Summary ---
Author Organization [facility] Address [address] [facility] [address] [place] [address] Phone Care Team Providers Care Submarine Operator Name Role Phone Xochilt Mckoy MD Primary Care Provider [phone] Encounter Details Date Type Department Care Team ([facility] Contact Info) Description 09/26/2022 Telephone [facility] [address] [place] [address] Jana Barger Social History Tobacco [...] - 09/26/2022 9:52 AM EDT Maricruz from [facility] pharmacy called to inquire if this PT is still receiving Retacrit. Please call [phone] Option 2 documented in this encounter Plan of Treatment Upcoming Encounters Date Type Department Care Team (Late Contact Info) Description 10/01/2024 2:45 PM EDT [facility] [address] [facility] [address] [place] [address] Dick Flores MD [address] [address] documented as of this encounter Visit Diagnoses Not on filedocumented in this encounter Care Teams Submarine Operator Relationship Specialty Start Date End Date Xochilt Mckoy MD [address] [facility] [address] [place] [address] PCP - General 06/08/20 documented as of this encounter
--- OUTSIDE RECORDS SUMMARY | 2024-09-12 13:00 | XMS_ITS | Encounter Summary ---
Author Organization [facility] Address [address] [address] Phone Care Team Providers Care Electronics Design Engineer Name Role Phone Xochilt Mckoy MD Primary Care Provider [phone] Encounter Details Date Type Department Care Team (Late Contact Info) Description 09/11/2024 Orders Only [facility] [address] [place] [id number] Dick Flores MD [address] [address] Stage 3b chronic kidney disease [...] Office Visit [facility] [address] [address] Dick Flores MD [address] [address] documented as of this encounter Visit Diagnoses Diagnosis Stage 3b chronic kidney disease (HCC) documented in this encounter Care Teams Electronics Design Engineer Relationship Specialty Start Date End Date Xochilt Mckoy MD [address] [place], [place] PCP - General 06/08/20 documented as of this encounter
== END 2024-09-12 11:14 | disposition home or self-care (01) ==
LOC: HO.HUSH 10:43
PROVIDERS: PCP Internal Medicine; Visit Provider Urology
DX: E29.1 Testicular hypofunction (principal); R39.12 Poor urinary stream; N31.9 Neuromuscular dysfunction of bladder, unspecified; Z13.9 Encounter for screening, unspecified
CPT/HCPCS: 99214; G2211

== ENCOUNTER → 2024-09-12 10:43 | Outpatient (BNVA) | payer OTHER, SELFPAY | PROVIDERS: PCP Internal Medicine; Visit Provider Urology | DX: N40.1 Benign prostatic hyperplasia with lower urinary tract symptoms (principal); E29.1 Testicular hypofunction; N31.9 Neuromuscular dysfunction of bladder, unspecified; R39.12 Poor urinary stream | CPT/HCPCS: 81003; 99212 ==

== ENCOUNTER 2024-09-28 07:58 | Outpatient (REF) | payer OTHER, SELFPAY ==
[2024-09-28 08:35] LABS: MANUAL DIFF FLAG NO
[2024-09-28 08:58] LABS: Basophils Absolute Auto 0.1 X10*3/uL (0.0-0.2); Basophils Percent Auto 0.5 % (0-2); Eosinophils Absolute Auto 0.3 X10*3/uL (0.0-0.4); Eosinophils Percent Auto 2.1 % (0-4); Hematocrit 38.8 % (42.0-52.0); Hemoglobin 12.3 g/dl (14.0-18.0); Imm Gran Abs Auto 0.06 X10*3/uL (0.00-0.03); Imm Gran Pct Auto 0.5 % (0.0-0.4); Lymphocytes Absolute Auto 2.4 X10*3/uL (1.2-4.9); Lymphocytes Percent Auto 18.3 % (20-40); Mean Corpuscular HGB Conc 31.7 g/dl (31.0-36.0); Mean Corpuscular Hemoglobin 28.9 pg (27.0-33.0); Mean Corpuscular Volume 91.1 fL (80.0-98.0); Mean Platelet Volume 9.1 fL (9.4-12.4); Monocytes Absolute Auto 1.2 X10*3/uL (0.1-1.2); Monocytes Percent Auto 9.5 % (2-11); Neutrophils Percent Auto 69.1 % (45-73); Platelet Count 387 X10*3/uL (160-400); Red Blood Count 4.26 X10*6/uL (4.60-5.80); Red Cell Distribution Width 16.5 % (11.0-16.0)
[2024-09-28 09:38] LABS: Alanine Aminotransferase 96 U/L (0-40); Albumin Level 3.8 g/dL (3.5-5.0); Alkaline Phosphatase 107 U/L (39-117); Aspartate Amino Transferase 35 U/L (5-37); Bilirubin Direct 0.4 mg/dL (0.0-0.5); Bilirubin Total 0.7 mg/dL (0.0-1.0); Iron 49 mcg/dL (45-160); Magnesium 2.2 mg/dL (1.6-2.6); Percent Iron Saturation 25 % (15-50); Phosphorus 4.1 mg/dL (2.7-4.5); Total Iron Binding Capacity 197 mcg/dL (228-428); Total Protein 7.3 g/dL (6.5-8.0); Unsaturated Iron Binding 148 ug/dL; Uric Acid 7.2 mg/dL (3.4-7.0)
[2024-09-28 09:41] LABS: Appearance Urine Cloudy; Color Urine Yellow; Glucose Urine UA 500 mg/dL (Negative); Leukocyte Esterase Urine Moderate (2+) (Negative); Nitrite Urine Negative (Negative); PH 5.5 (5.0-9.0); Specific Gravity - Urine 1.015 (1.005-1.025); UMIC TRIGGER UACC YES; Urine Blood Small (1+) (Negative); Urine Ketones Negative (Negative); Urine Protein 100 (2+) mg/dL (Neg-Trace)
[2024-09-28 09:45] LABS: Ferritin 94 ng/mL (20-250); Vitamin D 25-OH Total 15.6 ng/mL (>30)
[2024-09-28 09:59] LABS: Bacteria Urine 4+ (None Seen); Hyaline Casts Urine 0-2 /LPF (0-2); RBC Urine 0-2 /HPF (0-2); Squamous Epithelial Cell Urine 0-2 /HPF (0-2); UACC Culture Trigger YES; WBC Clumps Urine Present; WBC Urine 21-50 /HPF (0-5)
[2024-09-28 10:01] LABS: Estimated Average Glucose 120 mg/dL; Hemoglobin A1C 129.4192 umol/L; Hemoglobin A1c % 5.8 % (<6.0); Total Hemoglobin (HGBA1C) 3241.7686 umol/L
[2024-09-28 10:30] LABS: Parathyroid Hormone Intact 320.3 pg/mL (8.7-77.1)
[2024-09-28 10:37] LABS: Creatinine Urine 92.48 mg/dL; Microalbum/Creatinine Ratio Ur 357.9 ug/mg cr (<30)
== END 2024-09-28 07:59 | disposition home or self-care (01) ==
LOC: HO.LAB 07:58
PROVIDERS: PCP Internal Medicine; Visit Provider Internal Medicine
DX: N18.32 Chronic kidney disease, stage 3b (principal)
CPT/HCPCS: 36415; 80076; 81001; 82043; 82306; 82570; 82728; 83036; 83540; 83735; 83970; 84100; 84550; 85025; 87086; 87088; 87186

== ENCOUNTER 2024-11-11 07:05 | Outpatient (REF) | payer OTHER, SELFPAY ==
[2024-11-11 07:26] LABS: MANUAL DIFF FLAG NO
[2024-11-11 07:55] LABS: Basophils Absolute Auto 0.1 X10*3/uL (0.0-0.2); Basophils Percent Auto 0.5 % (0-2); Eosinophils Absolute Auto 0.3 X10*3/uL (0.0-0.4); Eosinophils Percent Auto 2.2 % (0-4); Hematocrit 37.2 % (42.0-52.0); Hemoglobin 11.6 g/dl (14.0-18.0); Imm Gran Abs Auto 0.05 X10*3/uL (0.00-0.03); Imm Gran Pct Auto 0.4 % (0.0-0.4); Lymphocytes Absolute Auto 2.3 X10*3/uL (1.2-4.9); Lymphocytes Percent Auto 18.7 % (20-40); Mean Corpuscular HGB Conc 31.2 g/dl (31.0-36.0); Mean Corpuscular Hemoglobin 29.4 pg (27.0-33.0); Mean Corpuscular Volume 94.4 fL (80.0-98.0); Mean Platelet Volume 9.2 fL (9.4-12.4); Monocytes Absolute Auto 1.3 X10*3/uL (0.1-1.2); Monocytes Percent Auto 10.4 % (2-11); Neutrophils Absolute Auto 8.2 x10*3/uL (2.0-8.3); Neutrophils Percent Auto 67.8 % (45-73); Platelet Count 372 X10*3/uL (160-400); Red Blood Count 3.94 X10*6/uL (4.60-5.80); Red Cell Distribution Width 16.7 % (11.0-16.0); White Blood Count 12.1 X10*3/uL (4.8-10.8)
[2024-11-11 08:17] LABS: Creatinine Urine 67.52 mg/dL; Microalbum/Creatinine Ratio Ur 285.8 ug/mg cr (<30)
[2024-11-11 08:19] LABS: Alanine Aminotransferase 181 U/L (0-40); Alkaline Phosphatase 94 U/L (39-117); Anion Gap 12 (12-20); Aspartate Amino Transferase 62 U/L (5-37); Bilirubin Total 0.7 mg/dL (0.0-1.0); Blood Urea Nitrogen 55 mg/dL (9-16); Carbon Dioxide 18 mmol/L (22-29); Chloride 115 mmol/L (96-108); Cholesterol 67 mg/dL (<200); Estimated Glomerular Filt Rate 35; Glucose Fasting 133 mg/dL (60-99); HDL Cholesterol 21 mg/dL (>40); Iron 75 mcg/dL (45-160); LDL Cholesterol Calculated 22 mg/dL (<100); Percent Iron Saturation 33 % (15-50); Potassium 5.3 mmol/L (3.3-5.1); Sodium 140 mmol/L (135-145); Total Iron Binding Capacity 227 mcg/dL (228-428); Total Protein 7.1 g/dL (6.5-8.0); Triglycerides 123 mg/dL (<150); Unsaturated Iron Binding 152 ug/dL
[2024-11-11 08:35] LABS: Vitamin D 25-OH Total 18.9 ng/mL (>30)
[2024-11-11 08:46] LABS: Folate 9.2 ng/mL (> or = 4.0); Vitamin B12 483 pg/mL (200-900)
== END 2024-11-11 07:06 | disposition home or self-care (01) ==
LOC: HO.LAB 07:05
PROVIDERS: PCP Internal Medicine; Visit Provider Internal Medicine
DX: R80.9 Proteinuria, unspecified (principal); E11.65 Type 2 diabetes mellitus with hyperglycemia; Z79.4 Long term (current) use of insulin; D64.9 Anemia, unspecified; E78.5 Hyperlipidemia, unspecified; E55.9 Vitamin D deficiency, unspecified; E53.8 Deficiency of other specified B group vitamins
CPT/HCPCS: 36415; 80053; 80061; 82043; 82306; 82570; 82607; 82746; 83540; 85025

== ENCOUNTER 2024-11-25 14:16 | Outpatient (AMB) | payer OTHER, SELFPAY ==
--- NOTE | 2024-11-25 14:20 | MHC.PC.OV ---
Vital Signs 11/25/24 14:21 Height 5 ft 5 in Weight 200 lb BMI 33.3 BP 118/60 Blood Pressure Location Lt brachial Position Sitting Intake Visit Reasons: 4 month DM Intake Note: Patient here for a 4 month follow up DM Sql Etl Developer Required: No Accompanied by: TELEGRAPH AND TELETYPE OPERATOR Allergies Sulfa (Sulfonamide Antibiotics) (SULFA (SULFONAMIDE ANTIBIOTICS)) Allergy (Intermediate, Verified 11/25/24 14:46) hives Medication List - Last Reconciled 11/25/24 by Xochilt Singh MD acetaminophen 650 mg (2 x 325 mg) PO BID 30 days atorvastatin 10 mg PO DAILY blood pressure test kit-medium As directed blood sugar diagnostic (FreeStyle Test strips) Use 4 test strip once a day blood-glucose meter (FreeStyle Lite Meter kit) As directed cholecalciferol (vitamin D3) PO [compression stockings knee high As directed] docusate sodium 100 mg PO BID PRN empagliflozin (Jardiance) 25 mg PO DAILY epinephrine 0.3 mg IM Q10M PRN ergocalciferol (vitamin D2) (Vitamin D2) 1,250 mcg PO QWEEK 90 days ferrous sulfate (FeroSul) 325 mg PO DAILY 30 days insulin lispro subcut lisinopril mg PO DAILY mirtazapine 30 mg PO BEDTIME 90 days pen needle, diabetic (BD Ultra-Fine Short Pen Needle) As directed [raised toilet seat As directed] semaglutide (Ozempic) 0.25 mg (0.368 mL) subcut QWEEK 4 weeks tadalafil 5 mg PO DAILY 90 days [tub seat As directed] walker (Ultra-Light Rollator misc) As directed [wheelchair electric As directed] Tobacco use date assessed: 11/25/24 Dental Screening Dental Screen Date: 07/03/24 HPI HPI Comments History of Present Illness Details The patient is a 59-year-old male presenting for follow-up of multiple chronic conditions. The patient reports bilateral hand weakness, which has persisted since leaving a group home. He experiences difficulty gripping objects and opening doors, affecting both hands equally. The patient's blood pressure is well-controlled at 118/60 mmHg, and he is currently on lisinopril 2.5 mg. He is on atorvastatin 10 mg for hyperlipidemia, which is effectively managed. The patient takes docusate for constipation and Jardiance 25 mg for Type 2 Diabetes Mellitus. His last A1c was 5.8, indicating good glycemic control. Anemia was noted with a hemoglobin level of 11.6 g/dL, but no iron supplementation is currently planned. Chronic Kidney Disease is present with a GFR of 35, slightly decreased from 39 in May. Vitamin D deficiency is being managed with supplementation, though levels remain low. Liver enzymes were slightly elevated in October, necessitating repeat testing. [facility] Medical History (Updated 11/25/24 @ 14:59 by Xochilt Singh MD) senior living (current) use of insulin Diabetic nephropathy associated with type 2 diabetes mellitus Mood disorder Diabetes mellitus Bipolar disorder with psychotic features Hypertension Osteomyelitis Bipolar 1 disorder Difficulty walking Neuromuscular dysfunction of bladder PVD (peripheral vascular disease) Benign prostatic hyperplasia Hyperlipidemia Restrictive lung disease Bacteremia Foot ulcer Headache Patellofemoral arthritis of left knee Microalbuminuria Left knee pain Foot osteomyelitis, right Anemia in chronic kidney disease Right foot pain PAD (peripheral artery disease) Anemia CKD (chronic kidney disease) stage 3, GFR 30-59 ml/min CKD stage G3b/A2, GFR 30-44 and albumin creatinine ratio 30-299 mg/g Osteomyelitis Morbid obesity 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 Brother No problems noted. Son No problems noted. Daughter In good health Maternal Grandmother DM (diabetes mellitus) Stroke Social History Household Members: None Housing: Unknown / Unable to assess Unable to assess alcohol history related to: Unable to respond Alcohol intake: never Patient Tobacco Use Status: Never used Tobacco e-Cigarette/Vaping Use: Never Used Second Hand Smoke Exposure: No Substance Use Type: Marijuana Advance Directives Date on File: 09/19/22 service: No Current occupational status: disabled Sexual orientation: Did not discuss. Cognitive needs: No Hearing needs: No Vision needs: Yes Questionnaire PHQ-9 Over the last 2 weeks, how often have you been bothered by any of the following problems? 1. Little interest or pleasure in doing things: not at all 2. Feeling down, depressed, or hopeless: not at all 3. Trouble falling or staying asleep, or sleeping too much: not at all 4. Feeling tired or having little energy: not at all 5. Poor appetite or overeating: not at all 6. Feeling bad about yourself - or that you are a failure or have let yourself or your family down: not at all 7. Trouble concentrating on things, such as reading the newspaper or watching television: not at all 8. Moving or speaking so slowly that other people could have noticed. Or the opposite - being so fidgety or restless that you have been moving around a lot more than usual: not at all 9. Thoughts that you would be better off or of hurting yourself in some way: not at all Total score: 0 Depression Screening Interpretation: Negative Depression Screening Done: Yes 05177 - PHQ-9 Billing: Yes Source: Developed by Drs. Glenn Pritchard, Vanessa Hernandez, Jules Sims and colleagues, with an educational darlin from [employer]. Thrive Questionnaire Date Thrive assessed: 07/03/24 I am a: Patient What is your living situation today?: I have a steady place to live Within the past 12 months, did the food you bought not last and you didn't have the money to get more?: I choose not to answer this question Within the past 12 months, did you worry whether your food would run out before you got money to buy more?: I choose not to answer this question Do you have trouble paying for medicines?: No Do you have trouble getting transportation to medical appointments?: No Do you have trouble paying your heating and electricity bill?: No Do you have trouble taking care of your child, family member or friend?: I choose not to answer this question Do you have trouble with day-to-day activities such as bathing, preparing meals, shopping, managing finances, etc.?: No Are you currently unemployed and looking for a job?: I choose not to answer this question Are you interested in more education?: I choose not to answer this question Please select the resources that you would like help with: None Currently or been in a relationship where the following occur: I choose not to answer THRIVE Score: 0 AUDIT C Alcohol Use Questionnaire (AUDIT-C) 1. How often do you have a drink containing alcohol?: Never Total Score: 0 Score Reviewed/Action Taken: No MELISA-7 AMB Questionnaire MELISA-7 Date MELISA - 7 assessed: 07/03/24 Feeling nervous, anxious, or on edge: 0 = Not at all Not being able to stop or control worryin = Not at all Worrying too much about different things: 0 = Not at all Trouble relaxin = Not at all Being so restless that it is hard to sit still: 0 = Not at all Becoming easily annoyed or irritable: 0 = Not at all Feeling afraid as if something awful might happen: 0 = Not at all Total MELISA-7 score (0-4 normal; 5-9 mild; 10-14 moderate; 15-21 severe): 0 Source: Developed by Drs. Glenn Pritchard, Vanessa Hernandez, Jules Sims and colleagues, with an educational darlin from [employer]. MELISA-7 Assessment Billing MELISA-7 Assessment Tool: MELISA-7 Assessment 54486 Review of Systems Const All systems reviewed & are unremarkable except as noted in HPI and below Card Denies chest pain at rest, Denies chest pain with activity, Denies edema, Denies irregular heart rhythm, Denies claudication, Denies dyspnea, Denies dyspnea on exertion, Denies orthopnea, Denies paroxysmal nocturnal dyspnea and Denies slow heart rate Resp Denies cough, Denies dyspnea and Denies dyspnea on exertion GI Denies abdominal pain, Denies change in bowel habits, Denies excessive flatus, Denies nausea and Denies vomiting Denies urinary hesitancy, Denies urinary incontinence and Denies urinary urgency Musc Denies abnormal gait, Denies atrophy, Denies deformity and Denies limited range of motion Skin/Breast Denies bleeding lesions, Denies changing lesions and Denies rash Neuro Denies abnormal gait, Denies behavioral changes and Denies lack of coordination Psych Denies behavioral changes Physical exam (Primary Care) Vital Signs: Last Vital Signs BP 118/60 11/25/24 14:21 BMI result Body Mass Index 33.3 BMI Assessment/Plan discussion: High BMI High, discussed plan: lifestyle, weight reduction, dietary and physical activity Tobacco/Smoking Status: Tobacco use Status Tobacco use date assessed 11/25/24 11/25/24 14:32 Patient Tobacco Use Status Never used Tobacco 11/25/24 14:32 e-Cigarette/Vaping Use Never Used 11/25/24 14:32 PHQ-9: PHQ-9 Score PHQ-9: Total score 0 11/25/24 14:50 Depression Screening Interpretation: Negative Thrive Assessment: Date of Thrive Assessment Date Thrive assessed 07/03/24 11/25/24 14:32 Currently or been in a relationship where the following occur: I choose not to answer Resp Effort & Inspection: normal respiratory effort Auscultation: clear to auscultation bilaterally Cardio Jugular venous distension: no JVD Rate: regular rate Rhythm: regular rhythm Heart sounds: S1 normal heart sound present and S2 normal heart sound present Extrem General: Yes full ROM Coding Level of Care Code Est Pt Level 4 (78316) Complex EM visit Add On G2211 Diagnoses PAD (peripheral artery disease) I73.9 Hyperlipidemia LDL goal <70 E78.5 Diabetes mellitus with hyperglycemia, with long-term current use of insulin E11.65; Z79.4 CKD (chronic kidney disease) stage 3, GFR 30-59 ml/min N18.30 Anemia in chronic kidney disease N18.9; D63.1 Transaminitis R74.01 Right hand pain M79.641 Left hand pain M79.642 Additional Codes MELISA-7 Assessment Billing - MELISA-7 Assessment Tool: MELISA-7 Assessment 45059 ([id number]) PHQ-9 - 52946 - PHQ-9 Billing: Yes ([id number]) Time Spent (min) 23 Assessment & Plan Assessment & Plan (1) PAD (peripheral artery disease): Comment: 06/21/2021- right peroneal plasty Code(s): I73.9 - Peripheral vascular disease, unspecified Category: Medical (2) Hyperlipidemia LDL goal <70: Code(s): E78.5 - Hyperlipidemia, unspecified Category: Medical (3) Diabetes mellitus with hyperglycemia, with long-term current use of insulin: Code(s): E11.65 - Type 2 diabetes mellitus with hyperglycemia; Z79.4 - multiple spindle router operator (current) use of insulin Category: Medical (4) CKD (chronic kidney disease) stage 3, GFR 30-59 ml/min: Code(s): N18.30 - Chronic kidney disease, stage 3 unspecified Category: Medical (5) Anemia in chronic kidney disease: Code(s): N18.9 - Chronic kidney disease, unspecified; D63.1 - Anemia in chronic kidney disease Category: Medical (6) Transaminitis: Code(s): R74.01 - Elevation of levels of liver transaminase levels Category: Medical (7) Right hand pain: Code(s): M79.641 - Pain in right hand Category: Medical (8) Left hand pain: Code(s): M79.642 - Pain in left hand Category: Medical Plan The patient will be referred to occupational therapy to address bilateral hand weakness and improve functionality. Blood pressure management will continue with lisinopril 2.5 mg, as current control is adequate. Hyperlipidemia management with atorvastatin 10 mg will be maintained due to effective cholesterol control. For Type 2 Diabetes Mellitus, Jardiance 25 mg will be continued, with monitoring of A1c levels to ensure ongoing glycemic control. Anemia will be monitored, with no immediate iron supplementation planned due to current hemoglobin levels. Chronic Kidney Disease will be monitored with regular renal function tests, given the current GFR of 35. Repeat liver enzyme tests will be conducted to assess any ongoing elevation. Vitamin D supplementation will continue to address deficiency, with levels to be re-evaluated. Patient was informed and verbally consented to the use of an ambient scribe for clinic note documentation during this visit. Orders: Orders XR hand LT 2V 11/25/24 M79.642 - Pain in left hand Liver Panel 11/25/24 R74.01 - Elevation of levels of liver transaminase levels US abdomen callejas w elastography 11/25/24 R74.01 - Elevation of levels of liver transaminase levels XR hand RT 2V 11/25/24 M79.641 - Pain in right hand OT Evaluation and Treatment 11/25/24 M79.641 - Pain in right hand, M79.642 - Pain in left hand Medications: Discontinued ferrous sulfate (FeroSul) Discontinued Reason: Patient Completed Course 325 mg PO DAILY 30 days 30 tabs 6RF
[2024-11-25 14:21] VITALS: BP 118/60; BMI 33.3
--- OUTSIDE RECORDS SUMMARY | 2024-11-25 14:48 | XMS_ITS | Clinical Summary ---
Author Organization 175 [facility] Address 175 [place] [address] Phone Care Team Providers Care Unit Assembler Name Role Phone Xochilt Singh MD Primary Care Provider [phone] Allergies Active Allergy Reactions Criticality Noted Date [...] Noted Date Diagnosed Date Amputation of toe ([facility] V24) 05/02/2018 Diabetic polyneuropathy asso ciated with type 2 diabetes mellitus ([facility] V24, [facility] V28) 05/02/2018 Status post amputation of toe of left foot ([facility] V24) 05/02/2018 Encounters Date Type Department Care Team Description 10/29/2024 10:30 AM EDT Office Visit Orthopedic Surgery [facility] 250 175 [facility] [address] [place] [address] Trevor Harris, DPM Ulcer of toe of left foot, limited to breakdown of skin ([facility] V24, [facility] V28) (Primary Dx); Fissure in skin of both feet; Dermatophytosis of nail; Pain in toe of right foot; Pain in toe of left foot; Metatarsalgia of both feet; Corns and callosities; Type II diabetes mellitus with peripheral circulatory disorder ([facility] V24, [facility] V28); Diabetic mononeuropathy simplex ([facility] V24, [facility] V28) from Last 3 Months Social History Tobacco [...] Care Team (Late st Contact Info) Description 01/29/2025 10:00 AM EDT Office Visit Orthopedic Surgery - [place] [address] [address] Trevor Harris, DPM [address] [address] Health Maintenance Due Date Last Done Comments Diabetes: Annual Foot Exam 1975 Diabetes: Annual Retina Eye Exam 1975 Hepatitis B Vaccines (3 of 3 - 19+ 3-dose series) 01/06/2015 11/11/2014, 07/03/2014 Zoster Vaccines (1 of 2) 2015 Colorectal Cancer Screening: Colonoscopy 05/08/2022 Depression Screening 05/08/2022 Diabetes: Blood Sugar Control Test (HGBA1C) 05/08/2022 07/09/2019 HIV Screening 05/08/2022 Hepatitis C Screening 05/08/2022 Social Influencers of Health Screening 05/08/2022 COVID-19 Vaccine ( season) 2024 06/22/2023, 10/28/2021, 09/04/2020, Additional history exists Diabetes: Annual Urine Albumin-Creatinine Ratio (uACR) 09/21/2024 09/22/2023 Diabetes: Annual GFR (Glomerular Filtration Rate) 09/21/2024 09/22/2023 Influenza Vaccine (Season Ended) 2025 02/23/2023, 02/25/2022, 03/25/2021, Additional history exists Cholesterol Screening (Lipid Panel) 10/25/2029 10/25/2024 DTaP,Tdap,and Td Vaccines (3 - Td or [...] complete this topic Insurance MEDICAID - [place] Member Subscriber Plan / Payer (Ef fective 2024-Present) Name:JUAN JOSE JOHNSTON Relation to Subscriber:Self Name:Juan Jose Yip Payer ID:[id number] Group ID:Not on file Type:Not on file Address: [facility] [employer] [place] ATTN:[employer] [address] [place] [address] Care Teams Unit Assembler Relationship Specialty Start Date End Date Xochilt Singh MD [address] [place] [address] , [address] [facility] Physician Associ D/B/A: [facility] [place] PCP - General Internal Medicine 04/05/21
--- OUTSIDE RECORDS SUMMARY | 2024-11-25 14:48 | XMS_ITS | Encounter Summary ---
Author Organization [facility] Address [address] [facility] [address] [address] [place] [address] Phone Care Team Providers Care Office Lead Name Role Phone Xochilt Mckoy MD Primary Care Provider [phone] Encounter Details Date Type Department Care Team ([facility] Contact Info) Description 09/26/2022 Telephone [facility] [address] [facility] [address] [place] [address] Jana Barger Social History Tobacco [...] - 09/26/2022 9:52 AM EDT Maricruz from [facility] pharmacy called to inquire if this PT is still receiving Retacrit. Please call [phone] Option 2 documented in this encounter Plan of Treatment Upcoming Encounters Date Type Department Care Team (Late Contact Info) Description 01/23/2025 2:00 PM EDT Office Visit [facility] [address] [place] [address] Dick Flores MD [address] [facility] [address] [place] [phone] documented as of this encounter Visit Diagnoses Not on filedocumented in this encounter Care Teams Office Lead Relationship Specialty Start Date End Date Xochilt Mckoy MD [address] [place], [place] PCP - General 06/08/20 documented as of this encounter
== END 2024-11-25 14:59 | disposition home or self-care (01) ==
LOC: HO.HMCH 14:17
PROVIDERS: PCP Internal Medicine; Visit Provider Internal Medicine
DX: E11.65 Type 2 diabetes mellitus with hyperglycemia (principal); Z79.4 Long term (current) use of insulin; N18.30 Chronic kidney disease, stage 3 unspecified; E78.5 Hyperlipidemia, unspecified; I73.9 Peripheral vascular disease, unspecified; D63.1 Anemia in chronic kidney disease; R74.01 Elevation of levels of liver transaminase levels; M79.641 Pain in right hand; M79.642 Pain in left hand

== ENCOUNTER → 2024-11-25 14:16 | Outpatient (BNVA) | payer OTHER, SELFPAY | PROVIDERS: PCP Internal Medicine; Visit Provider Internal Medicine | DX: E11.22 Type 2 diabetes mellitus with diabetic chronic kidney disease (principal); E11.51 Type 2 diabetes mellitus with diabetic peripheral angiopathy without gangrene; E11.65 Type 2 diabetes mellitus with hyperglycemia; K59.00 Constipation, unspecified; E55.9 Vitamin D deficiency, unspecified; E78.5 Hyperlipidemia, unspecified; N18.30 Chronic kidney disease, stage 3 unspecified; D63.1 Anemia in chronic kidney disease; R74.01 Elevation of levels of liver transaminase levels; M79.641 Pain in right hand; M79.642 Pain in left hand; Z79.4 Long term (current) use of insulin; Z79.899 Other long term (current) drug therapy | CPT/HCPCS: 96127; 99212 ==

== ENCOUNTER 2024-12-13 07:20 | Outpatient (REF) | payer OTHER, SELFPAY ==
--- OUTSIDE RECORDS SUMMARY | 2024-12-13 07:22 | XMS_ITS | Encounter Summary ---
Author Organization [facility] Address [address] [place] [address] [place] [address] Phone Care Team Providers Care Harvest Worker Fruit Name Role Phone Xochilt Mckoy MD Primary Care Provid er Reason for Visit * Reason Comments Medication Refill Encounter Details Date Type Department Care Team (Late st Contact Info) Description 11/05/2024 Refill [facility] [address] [place] [address] Aaron Courtney, [place] [address] [email or web address] Medication Refill Social History Tobacco Use Types Packs/Day Years Used Date Smoking Tobacco: Never Smokeless Tobacco: Never Alcohol Use Standard Drinks/Week Comments Not Currently 0 (1 standard drink = 0.6 oz pur e alcohol) Education Answer Date Recorded Are you interested in more education? Not on giovana e 09/24/2022 Are you concerned about learning? Not on file 09/24/2022 No 09/24/2022 No 09/24/2022 Digital Access Answer Date Recorded No 10/23/2022 No 10/23/2022 Reliable internet access at home? Not on file 10/23/2022 Device with a working camera? Not on file Sex and Gender Information Value Date Recorded Sex Assigned at Not on file Legal Sex Male 10:30 AM EDT Gender Identity Not on file Sexual Orientation Not on file documented as of this encounter Progress Notes * Char Causey MA - 11/05/2024 8:07 AM EDT Rx Care Gap Status - Instructions for Clinical Staff (prescriber discretion applies): n/a Visit Info Last visit: 07/19/2024 Aaron Courtney DO - Endocrinology [facility] > Requested f/u: Return in about 3 months (around 10/16/2024) for Diabetes. Upcoming visit: 11/06/2024 Aaron Courtney DO - Endocrinology [facility] ACTIONS TAKEN BY Char Causey MA - Refill protocol passed: no action needed. Cholesterol Medication Rx Protocol (on Diabetes Registry) - atorvastatin calcium Criteria met; renew for up to 12 months. Visit in the past 14 months: Yes Clinical criteria: - Lipid panel within past year: Yes (LDL 41 on 10/25/2024) Lab Results Component Value Date LDL 41 (L) 10/25/2024 HDL 26 10/25/2024 CARDIAC RISK RATIO 3.3 (L) 10/25/2024 TRIGLYCERIDES 90 10/25/2024 CHOLESTEROL 85 10/25/2024 documented in this encounter Plan of Treatment Upcoming Encounters Date Type Department Care Team (Late st Contact Info) Description 05/08/2025 3:20 PM EST Office Visit [facility] [address] [place] [address] Aaron Courtney DO [address] [place] [address] [email or web address] documented as of this encounter Visit Diagnoses Diagnosis Hyperlipidemia LDL goal <70 Other and unspecified hyperlipidemia documented in this encounter Care Teams Harvest Worker Fruit Relationship Specialty Start Date End Date Xochilt Mckoy MD [address] [place] [address] PCP - General Internal Medicine 03/18/22 documented as of this encounter Additional Source Comments The information contained in this document represents components of the legal health record. It is not the complete legal health record.[facility]
--- OUTSIDE RECORDS SUMMARY | 2024-12-13 07:22 | XMS_ITS | Encounter Summary ---
Author Organization [facility] Address [address] [place] [address] Phone Care Team Providers Care Industrial Sales Representative Name Role Phone Xochilt Mckoy MD Primary Care Provider [phone] Encounter Details Date Type Department Care Team (Late Contact Info) Description 09/26/2022 Telephone [facility] [address] [place] [address] Jana Barger Social History [...] - 09/26/2022 9:52 AM EDT Maricruz from [facility] pharmacy called to inquire if this PT is still receiving Retacrit. Please call [phone] Option 2 documented in this encounter Plan of Treatment Upcoming Encounters Date Type Department Care Team (Late Contact Info) Description 01/01/2025 Orders Only [facility]. [address] [address] Dick Flores MD [address] [address] Stage 3b chronic kidney disease (HCC) 01/23/2025 2:00 PM EDT Office Visit [facility] [address] [place] [address] Dick Flores MD [address] [address] documented as of this encounter Visit Diagnoses Not on filedocumented in this encounter Care Teams Industrial Sales Representative Relationship Specialty Start Date End Date Xochilt Mckoy MD [address] [place] PCP - General 06/08/20 documented as of this encounter
--- OUTSIDE RECORDS SUMMARY | 2024-12-13 07:22 | XMS_ITS | Clinical Summary ---
Author Organization [facility] Address [address] [place] [address] Phone Care Team Providers Care Mat Sewer Name Role Phone Xochilt Singh MD Primary Care Provider [phone] Allergies Active Allergy Reactions Criticality Noted Date [...] Noted Date Diagnosed Date Amputation of toe ([facility] V24) 05/02/2018 Diabetic polyneuropathy asso ciated with type 2 diabetes mellitus ([facility] V24, [facility] V28) 05/02/2018 Status post amputation of toe of left foot ([facility] V24) 05/02/2018 Encounters Date Type Department Care Team Description 10/29/2024 10:30 AM EDT Office Visit Orthopedic Surgery - [place] [address] 175 [facility] [address] [place] [address] Trevor Harris, DPM Ulcer of toe of left foot, limited to breakdown of skin ([facility] V24, [facility] V28) (Primary Dx); Fissure in skin of both feet; Dermatophytosis of nail; Pain in toe of right foot; Pain in toe of left foot; Metatarsalgia of both feet; Corns and callosities; Type II diabetes mellitus with peripheral circulatory disorder ([facility] V24, [facility] V28); Diabetic mononeuropathy simplex ([facility] V24, [facility] V28) from Last 3 Months [...] AM EDT Office Visit Orthopedic Surgery - [place] [address] [address] Trevor Harris, DPM [address] [address] Health Maintenance Due Date Last Done Comments Diabetes: Annual Foot Exam 1975 Diabetes: Annual Retina Eye Exam 1975 Hepatitis B Vaccines (3 of 3 - 19+ 3-dose series) 01/06/2015 11/11/2014, 07/03/2014 Zoster Vaccines (1 of 2) 2015 Colorectal Cancer Screening: Colonoscopy 05/08/2022 Diabetes: Blood Sugar Control Test (HGBA1C) 05/08/2022 07/09/2019 HIV Screening 05/08/2022 Hepatitis C Screening 05/08/2022 Social Influencers of Health Screening 05/08/2022 COVID-19 Vaccine ( season) 2024 06/22/2023, 10/28/2021, 09/04/2020, Additional history exists Depression Screening 05/29/2024 Diabetes: Annual Urine Albumin-Creatinine Ratio (uACR) 09/21/2024 09/22/2023 Diabetes: Annual GFR (Glomerular Filtration Rate) 09/21/2024 09/22/2023 Influenza Vaccine (#1) 2025 , 02/25/2022, 03/25/2021, Additional history exists Cholesterol Screening (Lipid Panel) 10/25/2029 10/25/2024 DTaP,Tdap,and Td Vaccines (3 - Td or Tdap) 01/08/2032 01/07/2022, 01/18/2012 RSV Immunization Adult Patients (1 - 1-dose 75+ series) 2040 Pneumococcal Vaccine: 50+ Years Completed 02/23/2023, 01/18/2012 HIB Vaccines Aged Out [...] to complete this topic Insurance [place] Care Teams Mat Sewer Relationship Specialty Start Date End Date Xochilt Singh MD 2 [facility] , [address] Physician Associ D/B/A: Clara Lambertatianjelica In Internal Medicine [place] PCP - General Internal Medicine 04/05/21
[2024-12-13 07:57] LABS: Alanine Aminotransferase 160 U/L (0-40); Albumin Level 3.7 g/dL (3.5-5.0); Alkaline Phosphatase 92 U/L (39-117); Aspartate Amino Transferase 80 U/L (5-37); Total Protein 6.5 g/dL (6.5-8.0)
== END 2024-12-13 07:21 | disposition home or self-care (01) ==
LOC: HO.LAB 07:20
PROVIDERS: PCP Internal Medicine; Visit Provider Urology
DX: R74.01 Elevation of levels of liver transaminase levels (principal)
CPT/HCPCS: 36415; 80076

== ENCOUNTER 2025-01-10 10:46 | Outpatient (REF) | payer OTHER, SELFPAY ==
--- NOTE | ~2025-01-10 | US_ITS ---
EXAMINATION: US ABDOMEN LIMITED WITH LIVER ELASTOGRAPHY HISTORY: R74.01 - Elevation of levels of liver transaminase levels TECHNIQUE: Real-time grayscale ultrasound imaging of the right upper quadrant was performed and images were reviewed. COMPARISON: Comparison is made with the prior examination dated 05/26/2021. FINDINGS: Liver: The right lobe of the liver measures 15.0 cm in size. The left lobe of the liver measures 6.8 cm in size. The liver demonstrates increased echotexture, consistent with steatosis. No focal mass or intrahepatic biliary ductal dilatation is identified. There is normal hepatopedal flow in the portal vein. Ultrasound elastography of the liver was performed with 10 separate measurements of the liver parenchyma with the patient in the supine position. Measurements were obtained approximately 2 cm below Salvatore's capsule and perpendicular to the capsule. The median shear wave velocity is 1.52 m/s. The interquartile range/median (IQR/median) is 0.11. Gallbladder and biliary tree: The gallbladder is surgically absent. The common bile duct measures 7 mm diameter. Right Kidney: The right kidney measures 11.3 cm in length. The right kidney is unremarkable, without evidence of masses, hydronephrosis, or calculi. Pancreas: The pancreatic head, neck, and body are unremarkable. The pancreatic tail is obscured by bowel gas. Abdominal aorta and inferior vena cava: The visualized portions of the abdominal aorta and inferior vena cava are normal in caliber. There is no free fluid in the right upper quadrant. US/US abdomen callejas w elastography IMPRESSION: Hepatic steatosis The median shear wave velocity in the liver is 1.52 m/s, corresponding to a median liver stiffness of 7.29 kPa. The IQR/median value is 0.11. This is indicative of a quality data set. Findings are indicative of a low elastography value which rules out advanced chronic liver disease in asymptomatic patients. REFERENCE: Society of Radiologists in Ultrasound Liver Stiffness Thresholds (2020): LIVER STIFFNESS THRESHOLDS: *Shear wave velocity less than 1.3 m/s (Liver Stiffness equal or less than 5 kPa): High probability of being normal. *Shear wave velocity less than 1.7 m/s (Liver Stiffness less than 9 kPa): In the absence of other known clinical signs, rules out compensated advanced chronic liver disease. *Shear wave velocity between 1.7-2.1 m/s (Liver Stiffness 9-13 kPa): Suggestive of compensated advanced chronic liver disease but need further test for confirmation. *Shear wave velocity between 2.1-2.4 m/s (Liver Stiffness 13-17 kPa): Rules in compensated advanced chronic liver disease. *Shear wave velocity greater than 2.4 m/s (Liver Stiffness over 17 kPa): Suggestive of clinically significant portal hypertension. QUALITY OF DATA SET: *IQR/Median value equal or less than 0.15 implies a quality data set. *IQR/Median value over 0.15 implies a poor quality data set. SIGNIFICANT CHANGE FROM PRIOR EXAM: Significant change if liver stiffness measurement is 10% or greater from prior exam. OTHER CONSIDERATIONS: The stage of liver fibrosis may be overestimated in the setting of acute hepatitis, liver inflammation, elevated liver function tests, hepatic vascular congestion, obstructive cholestasis, non-fasting state, and infiltrative diseases such as amyloidosis and lymphoma. In some patients with NAFLD, the liver stiffness thresholds for compensated advanced chronic liver disease may be lower. In causes other than viral hepatitis and NAFLD, liver stiffness thresholds are not well established. Electronically signed by: Glenn Hughes MD 01/10/2025 11:39 AM EDT
--- OUTSIDE RECORDS SUMMARY | 2025-01-10 10:55 | XMS_ITS | Encounter Summary ---
Author Organization [facility] Address [address] [place] [address] Phone Care Team Providers Care Financial Institution President Name Role Phone Xochilt Mckoy MD Primary Care Provider [phone] Encounter Details Date Type Department Care Team ([facility] Contact Info) Description 09/26/2022 Telephone [facility] [address] [facility] [address] [place] [address] Jana Barger Social History Tobacco [...] - 09/26/2022 9:52 AM EDT Maricruz from [facility] pharmacy called to inquire if this PT is still receiving Retacrit. Please call [phone] Option 2 documented in this encounter Plan of Treatment Upcoming Encounters Date Type Department Care Team (Late Contact Info) Description 01/23/2025 2:00 PM EDT Office Visit [facility] [address] [place] [address] Dick Flores MD [address] [facility] [address] [place] [phone] documented as of this encounter Visit Diagnoses Not on filedocumented in this encounter Care Teams Financial Institution President Relationship Specialty Start Date End Date Xochilt Mckoy MD [address] [place], [place] PCP - General 06/08/20 documented as of this encounter
--- OUTSIDE RECORDS SUMMARY | 2025-01-10 10:55 | XMS_ITS | Clinical Summary ---
Author Organization 175 [facility] Address 175 [place] [address] Phone Care Team Providers Care Batter Mixer Helper Name Role Phone Xochilt Singh MD Primary Care Provider [phone] Allergies Active Allergy Reactions Criticality Noted Date [...] Noted Date Diagnosed Date Amputation of toe ([facility] V24) 05/02/2018 Diabetic polyneuropathy asso ciated with type 2 diabetes mellitus ([facility] V24, [facility] V28) 05/02/2018 Status post amputation of toe of left foot ([facility] V24) 05/02/2018 Encounters Date Type Department Care Team Description 10/29/2024 10:30 AM EDT Office Visit Orthopedic Surgery - [place] 250 175 [facility] [address] [place] [phone] Trevor Harris, DPM Ulcer of toe of left foot, limited to breakdown of skin ([facility] V24, [facility] V28) (Primary Dx); Fissure in skin of both feet; Dermatophytosis of nail; Pain in toe of right foot; Pain in toe of left foot; Metatarsalgia of both feet; Corns and callosities; Type II diabetes mellitus with peripheral circulatory disorder ([facility] V24, [facility] V28); Diabetic mononeuropathy simplex ([facility] V24, [facility] V28) from Last 3 Months Social History [...] AM EDT Office Visit Orthopedic Surgery - [place] [address] [address] Trevor Harris, DPM [address] [address] Health Maintenance Due Date Last Done Comments [...] to complete this topic [place] Care Teams Batter Mixer Helper Relationship Specialty Start Date End Date Xochilt Singh MD 2 [facility] , [address] Physician Associ D/B/A: Clara Lambertatianjelica In Internal Medicine [place] PCP - General Internal Medicine 04/05/21
--- OUTSIDE RECORDS SUMMARY | 2025-01-10 10:55 | XMS_ITS | Encounter Summary ---
Author Organization [facility] Address [address] [place] [address] [place] [address] Phone Care Team Providers Care Painting Supervisor Name Role Phone Xochilt Mckoy MD Primary Care Provid er Reason for Visit * Reason Comments Medication Refill Encounter Details Date Type Department Care Team (Late st Contact Info) Description 11/05/2024 Refill [facility] [address] [place] [address] Aaron Courtney, [place] [address] [email or web address] Medication Refill Social History Tobacco Use Types [...] visit: 07/19/2024 Aaron Courtney DO - Endocrinology [facility] > Requested f/u: Return in about 3 months (around 10/16/2024) for Diabetes. Upcoming visit: 11/06/2024 Aaron Courtney DO - Endocrinology [facility] ACTIONS TAKEN BY Char Causey MA [...] 3:20 PM EST Office Visit [facility] [address] [place] [address] Aaron Courtney DO [address] [place] [address] [email or web address] documented as of this encounter Visit Diagnoses Diagnosis Hyperlipidemia LDL goal <70 Other and unspecified hyperlipidemia documented in this encounter Care Teams Painting Supervisor Relationship Specialty Start Date End Date Xochilt Mckoy MD [address] [place] [address] PCP - General Internal Medicine 03/18/22 documented as of this encounter Additional Source Comments The information contained in this document represents components of the legal health record. It is not the complete legal health record.[facility]
== END 2025-01-10 10:47 | disposition home or self-care (01) ==
LOC: HO.US 10:46
PROVIDERS: PCP Internal Medicine; Visit Provider Internal Medicine
DX: R74.01 Elevation of levels of liver transaminase levels (principal)
CPT/HCPCS: 76705; 76981

== ENCOUNTER → 2025-01-10 10:48 | Outpatient (BNV) | payer OTHER, SELFPAY | PROVIDERS: PCP Internal Medicine; Visit Provider Radiology Diagnostic Radiology | DX: K76.0 Fatty (change of) liver, not elsewhere classified (principal) | CPT/HCPCS: 76705 ==

== ENCOUNTER 2025-01-14 10:20 | Outpatient (REF) | payer OTHER, SELFPAY ==
[2025-01-14 10:54] LABS: MANUAL DIFF FLAG NO
[2025-01-14 11:24] LABS: Hematocrit 40.8 % (42.0-52.0); Hemoglobin 12.7 g/dl (14.0-18.0); Imm Gran Abs Auto 0.05 X10*3/uL (0.00-0.03); Imm Gran Pct Auto 0.4 % (0.0-0.4); Lymphocytes Absolute Auto 2.1 X10*3/uL (1.2-4.9); Mean Corpuscular HGB Conc 31.1 g/dl (31.0-36.0); Mean Corpuscular Hemoglobin 28.9 pg (27.0-33.0); Mean Corpuscular Volume 92.9 fL (80.0-98.0); NRBC Abs Auto 0.000 X10*3/uL (0.0-0.012); NRBC Pct Auto 0.0 /100WBC (0.0-0.2); Platelet Count 386 X10*3/uL (160-400); Red Blood Count 4.39 X10*6/uL (4.60-5.80); White Blood Count 13.5 X10*3/uL (4.8-10.8)
[2025-01-14 11:39] LABS: Appearance Urine Cloudy; Glucose Urine UA >=1000 mg/dL (Negative); PH 5.5 (5.0-9.0); Specific Gravity - Urine 1.020 (1.005-1.025); UMIC TRIGGER UA YES
--- OUTSIDE RECORDS SUMMARY | 2025-01-14 11:39 | XMS_ITS | Encounter Summary ---
Author Organization [facility] Address [address] [facility] [address] [address] [place] [address] Phone Care Team Providers Care Box Office Agent Name Role Phone Xochilt Mckoy MD Primary Care Provider [phone] Encounter Details Date Type Department Care Team ([facility] Contact Info) Description 09/26/2022 Telephone [facility] [address] [facility] [address] [place] [address] Jana Barger Social History Tobacco [...] - 09/26/2022 9:52 AM EDT Maricruz from [facility] pharmacy called to inquire if this PT is still receiving Retacrit. Please call [phone] Option 2 documented in this encounter Plan of Treatment Upcoming Encounters Date Type Department Care Team (Late Contact Info) Description 01/23/2025 2:00 PM EDT Office Visit [facility] [address] [place] [address] Dick Flores MD [address] [facility] 204 [place] [phone] documented as of this encounter Visit Diagnoses Not on filedocumented in this encounter Care Teams Box Office Agent Relationship Specialty Start Date End Date Xochilt Mckoy MD [address] [place], [place] PCP - General 06/08/20 documented as of this encounter
--- OUTSIDE RECORDS SUMMARY | 2025-01-14 11:39 | XMS_ITS | Encounter Summary ---
Author Organization [facility] Address [address] [place] [address] [place] [address] Phone Care Team Providers Care Welder Production Line Combination Name Role Phone Xochilt Mckoy MD Primary Care Provid er Reason for Visit * Reason Comments Medication Refill Encounter Details Date Type Department Care Team (Late st Contact Info) Description 11/05/2024 Refill [facility] [address] [place] [address] Aaron Courtney, [place] [address] [email or web address] Medication Refill Social History Tobacco Use Types [...] visit: 07/19/2024 Aaron Courtney DO - Endocrinology [facility] > Requested f/u: Return in about 3 months (around 10/16/2024) for Diabetes. Upcoming visit: 11/06/2024 Aaron Courtney DO - Endocrinology [facility] ACTIONS TAKEN BY Char Causey MA [...] 3:20 PM EST Office Visit [facility] [address] [place] [address] Aaron Courtney DO [address] [place] [address] [email or web address] documented as of this encounter Visit Diagnoses Diagnosis Hyperlipidemia LDL goal <70 Other and unspecified hyperlipidemia documented in this encounter Care Teams Welder Production Line Combination Relationship Specialty Start Date End Date Xochilt Mckoy MD [address] [place] [address] PCP - General Internal Medicine 03/18/22 documented as of this encounter Additional Source Comments The information contained in this document represents components of the legal health record. It is not the complete legal health record.[facility]
--- OUTSIDE RECORDS SUMMARY | 2025-01-14 11:39 | XMS_ITS | Clinical Summary ---
Author Organization 175 [facility] Address 175 [place] [address] Phone Care Team Providers Care Auditor Supervisor Name Role Phone Xochilt Singh MD Primary Care Provider [phone] Allergies Active Allergy Reactions Criticality Noted Date [...] Noted Date Diagnosed Date Amputation of toe ([facility] V24) 05/02/2018 Diabetic polyneuropathy asso ciated with type 2 diabetes mellitus ([facility] V24, [facility] V28) 05/02/2018 Status post amputation of toe of left foot ([facility] V24) 05/02/2018 Encounters Date Type Department Care Team Description 10/29/2024 10:30 AM EDT Office Visit Orthopedic Surgery - [place] 250 175 [facility] [address] [place] [phone] Trevor Harris, DPM Ulcer of toe of left foot, limited to breakdown of skin ([facility] V24, [facility] V28) (Primary Dx); Fissure in skin of both feet; Dermatophytosis of nail; Pain in toe of right foot; Pain in toe of left foot; Metatarsalgia of both feet; Corns and callosities; Type II diabetes mellitus with peripheral circulatory disorder ([facility] V24, [facility] V28); Diabetic mononeuropathy simplex ([facility] V24, [facility] [...] AM EDT Office Visit Orthopedic Surgery - [place] [address] [phone] Trevor Harris, DPM [address] [address] Health Maintenance Due Date Last Done Comments [...] to complete this topic Insurance [place] Care Teams Auditor Supervisor Relationship Specialty Start Date End Date Xochilt Singh MD 2 [facility] , [address] Physician Associ D/B/A: Clara Lambertatianjelica In Internal Medicine [place] PCP - General Internal Medicine 04/05/21
[2025-01-14 11:58] LABS: Microalbum/Creatinine Ratio Ur 312.6 ug/mg cr (<30); Protein/Creatinine Ratio, Ur 0.53 (<0.2); Total Protein Urine Random 37 mg/dL (<12)
[2025-01-14 12:03] LABS: Anion Gap 12 (12-20); Blood Urea Nitrogen 52 mg/dL (9-16); Calcium 8.6 mg/dL (8.4-10.2); Carbon Dioxide 21 mmol/L (22-29); Chloride 113 mmol/L (96-108); Estimated Glomerular Filt Rate 37; Magnesium 2.1 mg/dL (1.6-2.6); Parathyroid Hormone Intact 207.9 pg/mL (8.7-77.1); Potassium 5.1 mmol/L (3.3-5.1); Sodium 141 mmol/L (135-145); Uric Acid 6.2 mg/dL (3.4-7.0)
== END 2025-01-14 10:21 | disposition home or self-care (01) ==
LOC: HO.LAB 10:20
PROVIDERS: Visit Provider Internal Medicine
DX: N18.32 Chronic kidney disease, stage 3b (principal)
CPT/HCPCS: 36415; 80051; 81001; 82043; 82306; 82310; 82565; 82570; 83735; 83970; 84100; 84156; 84520; 84550; 85025

== ENCOUNTER 2025-03-24 14:01 | Outpatient (AMB) | payer OTHER, SELFPAY ==
[2025-03-24 14:14] VITALS: BP 110/58; PULSE 84; O2SAT 99; BMI 33.4
--- NOTE | 2025-03-24 14:14 | A.OFFVIS_ITS ---
Vital Signs 03/24/25 14:14 Height 5 ft 5 in Weight 200 lb 9.93 oz BMI 33.4 BP 110/58 L Blood Pressure Location Lt brachial Position Sitting Pulse 84 Pulse Source Pulse Oximeter Pulse Oximetry (%) 99 Oxygen Delivery Method Room Air Intake Visit Reasons: Obstructive sleep apnea Intake Note: pt is here for follow up and states he is feeling good. Data Report Analyst Required: No Allergies Sulfa (Sulfonamide Antibiotics) (SULFA (SULFONAMIDE ANTIBIOTICS)) Allergy (Intermediate, Verified 03/24/25 14:26) hives Medication List - Last Reconciled 03/24/25 by Olaf Douglas MD acetaminophen 650 mg (2 x 325 mg) PO BID 30 days atorvastatin 10 mg PO DAILY blood pressure test kit-medium As directed blood sugar diagnostic (FreeStyle Test strips) Use 4 test strip once a day blood-glucose meter (FreeStyle Lite Meter kit) As directed cholecalciferol (vitamin D3) PO [compression stockings knee high As directed] docusate sodium 100 mg PO BID PRN empagliflozin (Jardiance) 25 mg PO DAILY epinephrine 0.3 mg IM Q10M PRN ergocalciferol (vitamin D2) (Vitamin D2) 1,250 mcg PO QWEEK 90 days insulin lispro subcut mirtazapine 30 mg PO BEDTIME 90 days pen needle, diabetic (BD Ultra-Fine Short Pen Needle) As directed [raised toilet seat As directed] semaglutide (Ozempic) 2 mg subcut QWEEK tadalafil 5 mg PO DAILY 90 days [tub seat As directed] walker (Ultra-Light Rollator misc) As directed [wheelchair electric As directed] [wrist splint As directed] Do you need a note to return to daycare/school/sports/work: No HPI HPI Obstructive sleep apnea: Details: THIS 55 YEARS OLD GENTLEMAN IS HERE FOR 6 MONTHS FOLLOW-UP. FOR HIS SLEEP APNEA HE HAS BEEN USING THE CPAP VERY REGULARLY, EXCEPT WHEN HE WENT TO [place] FOR ABOUT 10 DAYS HE DID NOT USE THE CPAP. AT HOME OVER HERE HE IS USING EVERY NIGHT, AT LEAST FOR 7 HOURS PER NIGHT. HE HAS GETS GOOD SLEEP AND REMAINS ALERT DURING THE DAYTIME. HE HAS NOT LOST WEIGHT RATHER GAINED ABOUT 10 LB WHEN HE WENT TO [place] FOR A FEW WEEKS. NOW HE IS CONTROLLING HIS DIET AGAIN. HE DENIES ANY ISSUES WITH THE MASK OR CPAP DEVICE. 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 Diabetic nephropathy associated with type 2 diabetes mellitus Mood disorder Diabetes mellitus Bipolar disorder with psychotic features Hypertension Osteomyelitis Bipolar 1 disorder Difficulty walking Neuromuscular dysfunction of bladder PVD (peripheral vascular disease) Benign prostatic hyperplasia Hyperlipidemia Restrictive lung disease Bacteremia Foot ulcer Headache Patellofemoral arthritis of left knee Microalbuminuria Left knee pain Foot osteomyelitis, right Anemia in chronic kidney disease Right foot pain PAD (peripheral artery disease) Anemia CKD (chronic kidney disease) stage 3, GFR 30-59 ml/min CKD stage G3b/A2, GFR 30-44 and albumin creatinine ratio 30-299 mg/g Osteomyelitis Morbid obesity 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 deficiency 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 Brother No problems noted. Son No problems noted. Daughter In good health Maternal Grandmother DM (diabetes mellitus) Stroke Social History Household Members: None Housing: Unknown / Unable to assess Alcohol intake: never Patient Tobacco Use Status: Never used Tobacco e-Cigarette/Vaping Use: Never Used Second Hand Smoke Exposure: No Substance Use Type: Marijuana Advance Directives Date on File: 09/19/22 service: No Current occupational status: disabled Sexual orientation: Did not discuss. Cognitive needs: No Hearing needs: No Vision needs: Yes Review of Systems Const All systems reviewed & are unremarkable except as noted in HPI and below Eyes Reports no additional complaints ENT Reports nasal congestion (off and on ) Card Denies chest pain, Denies irregular heart rhythm and Denies leg edema Resp Reports as per HPI, Denies cough and Denies wheezing GI Reports no additional complaints Reports no additional complaints Musc Reports no additional complaints Skin/Breast Reports system reviewed and no additional complaints, except as documented Neuro Reports no additional complaints Psych Reports no additional complaints Endo Reports other (diabetes M ) Aller/Immun Denies wheezing Physical Exam Vital Signs: Last Vital Signs Pulse 84 03/24/25 14:14 BP 110/58 L 03/24/25 14:14 Pulse Ox 99 03/24/25 14:14 Oxygen Delivery Method Room Air 03/24/25 14:14 BMI result Body Mass Index 33.4 Const General: comfortable, no acute distress, alert and awake Orientation/consciousness: patient oriented x3 HEENT Head: Yes normal to inspection General nose exam: No nasal polyps present and No nasal discharge present Face and sinus: Yes sinuses nontender Mouth: oropharynx normal Throat: Yes posterior oropharynx normal Eyes General: appearance normal, both eyes and all related structures Neck Neck: Yes normal visual inspection, Yes no lymphadenopathy, Yes trachea midline and Yes no JVD Thyroid: Thyroid normal Chest Chest palpation & inspection: normal inspection of the chest, normal palpation of entire chest wall and no tenderness Resp Effort & Inspection: normal respiratory effort and no cough Auscultation: no crackles and no wheezes Cardio Palpation: normal PMI Rate: regular rate Rhythm: regular rhythm Heart sounds: no gallops and no murmurs GI Palpation (GI): Soft to palpation, nontender, No hepatosplenomegaly present and no masses Auscultation: normal bowel sounds Other: HAS RIVERS CATHETER IN PLACE Back/Spine/Pelvis Thoracic/Lumbar Spine: thoracic and lumbar spine normal to inspection and thoraco-lumbar ROM limited Skin General skin exam: no rashes or lesions noted Neuro General: patient oriented x3, No gait normal (NON AMBULATORY, PATIENT IN WHEELCHAIR) and No no focal motor deficits (HAS GENERALIZED WEAKNESS OF THE MUSCLES IN LOWER EXTREMITIES) Cranial nerves: Yes CN's II-XII intact bilaterally Extrem General: Yes normal to inspection, Yes no clubbing, cyanosis or edema and Yes no calf tenderness Psych Appearance: grossly normal Speech and movement: Normal speech and movement present Assessment & Plan Assessment & Plan (1) Obesity (BMI 30-39.9): Comment: HE REMAINS MODERATELY OBESE. HE IS TRYING TO WATCH HIS DIET. DURING HIS VACATION IN [place] FOR A FEW WEEKS HE HAS GAINED WEIGHT AND NOW HE IS TRYING TO LOSE. Code(s): E66.9 - Obesity, unspecified Category: Medical Plan: ENCOURAGED HIM TO WATCH HIS DIET AND LOSE ABOUT 10 LB OF WEIGHT (2) NEEMA (obstructive sleep apnea): Comment: He has history of obstructive sleep apnea for many years, and had used CPAP very regularly. Remained compliant to the use, of CPAP In 2022 after significant weight loss he had stopped using the CPAP for a while. But then afterwards his sleep was poor and he went back to using the CPAP. SINCE EARLY 2024 He went back to using CPAP regularly . Currently his compliance is good and average usage per night says about 6-7 hours . The machine does not transmit the data about his compliance. Code(s): G47.33 - Obstructive sleep apnea (adult) (pediatric) Category: Medical Plan: Advise that he should continue to use CPAP regularly every night for 6-7 hours per night and also advised that he should try. to lose weight (3) Restrictive lung disease: Comment: Patient had moderate degree of restrictive lung disease in 2017 related to his morbid obesity. With successful weight loss, after gastric bypass surgery, the restrictive component has much improved. Last Spirometry in 2022 showed only mild degree of restrictive disorder, Code(s): J98.4 - Other disorders of lung Category: Medical Plan: He is counseled to maintain his weight rather lose about 10 lb. Also counseled to do deep breathing exercises. Coding Level of Care Code Est Pt Level 3 (40033) Diagnoses Obesity (BMI 30-39.9) E66.9 NEEMA (obstructive sleep apnea) G47.33 Restrictive lung disease J98.4
--- OUTSIDE RECORDS SUMMARY | 2025-03-24 17:42 | XMS_ITS | Clinical Summary ---
Author Organization [facility] Address [address] [facility] [address] [place] [phone] Phone Care Team Providers Care Cath Lab Radiology Technician Name Role Phone Xochilt Mckoy MD Primary Care Provid er Allergies Active Allergy Reactions Criticality Noted Date Comments Sulfa (Sulfonamide Antibiotics) 06/29 Medications traZODone (DESYREL) 50 MG tablet Take 50 mg by mouth nightly at bedtime. at bedtime. 02/12/20 Active finasteride (PROSCAR) 5 mg tablet Take 5 mg by mouth daily. 02/12/20 Active doxazosin (CARDURA) 8 MG tablet Take 8 mg by mouth nightly at bedtime. at bedtime. 02/12/20 Active acetaminophen (TYLENOL) 500 MG tablet 02/23/20 Active bisacodyl (DULCOLAX) 5 mg Tab tablet Take 5 mg by mouth daily. Active FREESTYLE LITE Strp stripsIndication s:Type 2 diabetes mellitus with diabetic polyneuropathy, without long-term current use of insulin 1 each by Miscellaneous route 3 (three) times a day before meals. 300 strip 3 03/18/20 Active epoetin bryce-epbx (RETACRIT) 40,000 unit/mL injection INJECT UP TO 40,000 UNITS UNDER THE SKIN ONCE EVERY 14 DAYS 03/10/20 Active tamsulosin (FLOMAX) 0.4 mg Cap Take 0.4 mg by mouth nightly at bedtime. 08/24/19 24 Active acidophilus-pect in, citrus 25 million cell -100 mg Tab tablet Take 1 tablet by mouth 2 (two) times a day. 09/04/19 24 Active mirtazapine (REMERON) 15 MG tablet Take 15 mg by mouth nightly at bedtime. at bedtime. 08/04/19 24 Active STOOL SOFTENER 100 mg capsule Take 100 mg by mouth 2 (two) times a day as needed. 09/13/19 Active FEROSUL 325 mg (65 mg iron) tablet Take 1 tablet by mouth every morning. 09/12/19 24 Active blood-glucose meter,continuous (DEXCOM G6 ECHOMETER ENGINEER) MiscIndications: Type 2 diabetes mellitus with diabetic polyneuropathy, without long-term current use of insulin,Type 2 diabetes mellitus with stage 3a chronic kidney disease, without long-term current use of insulin by Miscellaneous route as needed. 1 each 09/22/19 24 Active insulin pump cart,automated,B T (OMNIPOD 5 G6 PODS, GEN 5,) CrtgIndications: Type 2 diabetes mellitus with diabetic polyneuropathy, without long-term current use of insulin,Type 2 diabetes mellitus with stage 3a chronic kidney disease, without long-term current use of insulin Inject 1 kit under the skin every 3 (three) days. 30 each 03/14/20 24 Active insulin pump cart,auto,BT-cnt r (OMNIPOD 5 G6 INTRO KIT, GEN 5,) CrtgIndications: Type 2 diabetes mellitus with diabetic polyneuropathy, without long-term current use of insulin,Type 2 diabetes mellitus with stage 3a chronic kidney disease, without long-term current use of insulin Inject 1 kit under the skin daily. 1 each 03/14/20 24 Active DEXCOM G6 SENSOR DeviIndications: Type 2 diabetes mellitus with diabetic polyneuropathy, without long-term current use of insulin,Type 2 diabetes mellitus with stage 3a chronic kidney disease, without long-term current use of insulin 1 kit by Miscellaneous route Every 10 Days. 9 each 3 04/11/20 24 Active lisinopril (PRINIVIL,ZESTRI L) 5 MG tablet Take 5 mg by mouth. 03/07/20 24 Active insulin syringe-needle U-100 (SURE COMFORT INS. SYR. U-100) 0.5 mL 29 gauge x 1/2 SyrgIndications: Type 2 diabetes mellitus with diabetic polyneuropathy, without long-term current use of insulin,Type 2 diabetes mellitus with stage 3a chronic kidney disease, without long-term current use of insulin USE DIRECTED WITH INSULIN FIVE TIMES DAILY 100 each 1 08/28/19 25 Active tadalafiL (CIALIS) 5 MG tablet TAKE 1 TABLET BY MOUTH DAILY FOR SEXUAL ACTIVITY 09/28/19 25 Active empagliflozin (JARDIANCE) 25 mg tabletIndication s:Type 2 diabetes mellitus with diabetic polyneuropathy, without long-term current use of insulin,Type 2 diabetes mellitus with stage 3a chronic kidney disease, without long-term current use of insulin Take 1 tablet (25 mg total) by mouth daily. 90 tablet 1 11/07/19 25 026 Active insulin lispro (ADMELOG, HUMALOG) 100 unit/mL injection vialIndications: Type 2 diabetes mellitus with diabetic polyneuropathy, without long-term current use of insulin,Type 2 diabetes mellitus with stage 3a chronic kidney disease, without long-term current use of insulin Use up to 90 units daily via OmniPod pump 80 mL 1 11/07/19 25 Active atorvastatin (LIPITOR) 10 MG tabletIndication s:Hyperlipidemia LDL goal <70 Take 1 tablet (10 mg total) by mouth daily. 90 tablet 1 11/07/19 25 Active OMNIPOD 5 G6-G7 PODS, GEN 5, CrtgIndications: Type 2 diabetes mellitus with diabetic polyneuropathy, without long-term current use of insulin,Type 2 diabetes mellitus with stage 3a chronic kidney disease, without long-term current use of insulin Inject 1 each under the skin every other day. 45 each 3 01/24/20 25 Active dulaglutide (TRULICITY) 1.5 mg/0.5 mL subcutaneous injectionIndicat ions:Type 2 diabetes mellitus with diabetic polyneuropathy, without long-term current use of insulin Inject 0.5 mL (1.5 mg total) under the skin every 7 days. 6 mL 1 01/25/20 25 Active DEXCOM G6 TRANSMITTER DeviIndications: Type 2 diabetes mellitus with diabetic polyneuropathy, without long-term current use of insulin,Type 2 diabetes mellitus with stage 3a chronic kidney disease, without long-term current use of insulin 1 kit by Miscellaneous route every 3 (three) months. 1 each 3 03/14/20 25 Active DEXCOM G6 TRANSMITTER DeviIndications: Type 2 diabetes mellitus with diabetic polyneuropathy, without long-term current use of insulin,Type 2 diabetes mellitus with stage 3a chronic kidney disease, without long-term current use of insulin 1 kit by Miscellaneous route every 3 (three) months. 1 each 3 04/11/20 24 025 Discontin ued(Reord er) Active Problems Problem Noted Date Diagnosed Date Type 2 diabetes mellitus wit h diabetic polyneuropathy, without long-term current use of insulin 03/18/2022 Assessment & Plan (11/06/2024 4:42 PM EDT): Controlled. Hemoglobin A1c 5.9% target glucose 83% continue current regimen no changes required follow-up in 6 months. Assessment & Plan (04/11/2024 12:31 PM EST): Uncontrolled. Hemoglobin A1c 7.3 his having postprandial hyperglycemia but he is eating more carbohydrates including rice and Posta. I increase his basal insulin from 12 PM to 1 PM and I increase Ozempic to 1 mg this will curb his appetite. He should continue Jardiance. Assessment & Plan (09/22/2023 11:25 AM EDT): Uncontrolled. Glucose 220 on average correlates with hemoglobin A1c of 9.3 he will continue Trulicity 1.5 cannot tolerate a higher dose. For now he is going to be administering insulin lispro with meals up to 5 times a day based on correction scale 70-100 = 2 units increasing by 2 units every 50 mg/dL. I did request the OmniPod 5 pump with Dexcom G6. Once he obtains this he needs to meet with our physician tourist information assistant to train him and get pump initiated. In the meantime I asked the medical assistants to do prior authorization for these devices. He should return in approximately 6 weeks obtain lab work today. Assessment & Plan (07/01/2022 12:10 PM EST): Based on hemoglobin A1c is controlled but this is falsely low due to anemia. Reviewing the glycemic levels is really difficult to interpret because he has been checking glucose right after eating. I told him not to check glucose right after eating if he is going to check after eating he needs to wait 2 hours. He should try to check his glucose levels before the meals. I am not can make any changes he should continue Trulicity. Assessment & Plan (03/18/2022 12:24 PM EDT): Controlled based on glycemic levels. Hemoglobin A1c 5.9% but may be falsely low due to anemia. Continue Trulicity 3 mg weekly. Type 2 diabetes mellitus wit h stage 3a chronic kidney disease, without long-term current use of insulin 03/18/2022 Assessment & Plan (07/19/2024 1:25 PM EST): Uncontrolled. Hemoglobin A1c 7.8% worse than before previously 7.3%. I had increase Ozempic to 1 mg increase the basal insulin glucose levels are still elevated he states he is overeating. At this point we will increase Ozempic to 2 mg weekly if not changing any of the settings on his insulin pump hopefully he can tolerate the higher dose of Ozempic. Will follow in 3 months time repeat hemoglobin A1c prior to follow-up visit. Assessment & Plan (01/08/2024 1:34 PM EDT): Controlled. His hemoglobin A1c in the office today was 6.6% this may be falsely low because he has mild anemia. His average glucose in the last 2 weeks is more consistent with hemoglobin A1c of 7.2%. However the CGM shows 71% in target which is good. The CGM also shows a flat line. There is no particular pattern which shows where he is actually elevated. The standard deviation is high at 44 so his glucose levels at times can be low or high. Most of the time more frequently elevated but again no particular pattern that we can pinpoint and correct. He states that usually when he eats he does not wait 15 minutes before injecting insulin. This may have something to do with it. In any case I am not going to make any changes to his regimen he should continue Trulicity, Jardiance and current insulin regimen. Hyperlipidemia LDL goal <70 03/18/2022 Assessment & Plan (11/06/2024 4:42 PM EDT): Controlled. LDL 41 mg continue atorvastatin. Assessment & Plan (07/19/2024 1:25 PM EST): Controlled. LDL 46 mg/dL he should continue atorvastatin 10 mg. Assessment & Plan (04/11/2024 12:07 PM EST): Controlled. LDL 46 mg/dL. Continue atorvastatin 10 mg. Assessment & Plan (01/08/2024 1:35 PM EDT): Controlled. LDL 46 mg/dL continue atorvastatin 10 mg. Assessment & Plan (09/22/2023 11:23 AM EDT): I do not have current lipid panel requested this continue atorvastatin 10 mg daily. Assessment & Plan (07/01/2022 12:09 PM EST): Controlled LDL is 48 mg/dL he should continue atorvastatin 10 mg no changes. Assessment & Plan (03/18/2022 12:25 PM EDT): Uncontrolled LDL 80 mg/dL this patient has peripheral vascular disease underwent vascular revascularization he needs to have the LDL below 70 mg/dL I prescribed atorvastatin 10 mg daily repeat lipid panel in 3 months. Vitamin D deficiency 03/18/2022 Assessment & Plan (04/11/2024 12:29 PM EST): He should continue vitamin D 50,000 units weekly. He can take both 25-hydroxy vitamin D and Rocaltrol. Assessment & Plan (01/08/2024 1:37 PM EDT): Vitamin D levels remain below the reference range he should continue ergocalciferol 50,000 units weekly. It is not beneficial to increase it to 100,000. Assessment & Plan (09/22/2023 11:26 AM EDT): Has been initiated on ergocalciferol 50,000 units weekly has used it for the last 2 weeks will obtain baseline vitamin D presently. Assessment & Plan (07/01/2022 12:06 PM EST): Vitamin D levels are still deficient. He may have decreased absorption due to gastric bypass. He should continue ergocalciferol 50,000 units I will repeat vitamin D levels prior to the follow-up visit. Assessment & Plan (03/18/2022 12:25 PM EDT): Vitamin D deficient will prescribe ergocalciferol 50,000 units weekly repeat vitamin D levels in 3 months. Encounters Date Type Department Care Team Description 03/14/2025 Telephone [facility] Endocrinology [address] [place] [address] Aaron Courtney DO BROKEN DEXCOM G6 TRANSMITTER 01/29/2025 Telephone [facility] [address] [place] [address] [place] [phone] Gwen Clayton MA Medication Prior Authorization 01/24/2025 Orders Only [facility] [address] [place] [address] Aaron Courtney DO Type 2 diabetes mellitus with diabetic polyneuropathy, without long-term current use of insulin (Primary Dx) 01/23/2025 Telephone [facility] Endocrinology [address] [place] [address] Aaron Courtney DO Omnipod refill (Omnipod refill request); Medication Prior Authorization 01/20/2025 Telephone [facility] Endocrinology [address] [place] [address] Aaron Courtney DO Ozempic Prior Auth (Ozempic Prior Auth) from Last 3 Months Family History Medical History Relation Comments Coronary artery disease Father Stroke Father Diabetes Mother Stroke Mother Relation Status Comments Father Mother Social History Tobacco Use Types Packs/Day Years [...] Sign Reading Time Taken Comments Blood Pressure 110/60 11/06/2024 3:53 PM EDT Pulse 76 11/06/2024 3:53 PM EDT Temperature - - Respiratory Rate - - Oxygen Saturation 99% 11/06/2024 3:53 PM EDT Inhaled Oxygen Concentration - - Weight 90.1 kg (198 lb 9.6 oz) 11/06/2024 3:53 P M EDT Height 165.1 cm (5' 5 ) 07/19/2024 12:56 PM EST Body Mass Index 33.05 07/19/2024 12:56 PM EST Plan of Treatment Upcoming Encounters Date Type Department Care Team (Late st Contact Info) Description 05/08/2025 3:20 PM EST Office Visit [facility] [address] [place] [id number] Aaron Courtney DO [address] [place] [address] [email or web address] Health Maintenance Due Date Last Done Comments Adult Td,Tdap Booster 1965 DEPRESSION SCREENING 1977 HEPATITIS C SCREENING 1983 HIV ONE-TIME SCREENING (18-65 YEARS) 1983 PNEUMOCOCCAL VACCINES (50+ years) (1 of 2 - PCV) 1984 COLOGUARD 2010 COLONOSCOPY 2010 COLORECTAL CANCER SCREENING 2010 FIT TEST 2010 FOBT 2010 SIGMOIDOSCOPY 2010 VIRTUAL COLONOSCOPY 2010 RSV VACCINE (1 - Risk 50-74 years 1-dose series) 2015 ZOSTER VACCINES (1 of 2) 2015 DIABETIC EYE EXAM 03/18/2022 INFLUENZA VACCINE (#1) 2024 COVID-19 VACCINE (1 - season) 2025 HEMOGLOBIN A1C 04/27/2025 10/25/2024, 05/31, 03/28/2024, Additional history exists BLOOD PRESSURE 05/08/2025 11/06/2024 SMOKING STATUS SCREENING (Once After 26 Yrs) Completed 07/19/2024 HEPATITIS A VACCINES Aged Out No long er eligible based on patient's age to complete this topic HIB VACCINES Aged Out No longer eligi ble based on patient's age to complete this topic MENINGOCOCCAL VACCINES (ACWY) Aged Out No longer eligible based on patient's age to complete this topic MENINGOCOCCAL VACCINES (B) Aged Out N o longer eligible based on patient's age to complete this topic Medical Devices Not on file Procedures Procedure Name Priority Date/Time Associated Diagnosis Comments HEMOGLOBIN A1C Routine 10/25/2024 9:16 AM EDT Type 2 diabetes mellitus with diabetic polyneuropathy, without long-term current use of insulin Type 2 diabetes mellitus with stage 3a chronic kidney disease, without long-term current use of insulin from Last 3 Months or Most Recently Relevant to Health Maintenance Results * (ABNORMAL) Hemoglobin A1c (10/25/2024 9:16 AM EDT) HEMOGLOBIN A1C 5.9(H) 4.3 - 5.8 % [facility] Blood 10/25/2024 9:16 AM EDT 10/25/2024 9:18 AM EDT us Aaron Courtney DO LAB BLOOD ORDERABLES Final Resul t [facility] [address] [place], [place] [phone] from Last 3 Months or Most Recently Relevant to Health Maintenance Insurance [facility] [address] [place] [id number] [facility] [address] [place] [id number] [address] [place] [phone] [address] [place] [address] [facility] [address] [place] [address] [id number] [place] [phone] [place] [address] [address] [place] [phone] [facility] [address] [place] [phone] [place] [address] ACO Care Teams Cath Lab Radiology Technician Relationship Specialty Start Date End Date Xochilt Mckoy MD [address] [place] [address] PCP - General Internal Medicine 03/18/22 Additional Source Comments The information contained in this document represents components of the legal health record. It is not the complete legal health record.[facility]
--- OUTSIDE RECORDS SUMMARY | 2025-03-24 17:42 | XMS_ITS | Encounter Summary ---
Author Organization [facility] Address [address] [facility] [address] [place] [address] Phone Care Team Providers Care Preschool Director Name Role Phone Xochilt Mckoy MD Primary Care Provider [phone] Encounter Details Date Type Department Care Team ([facility] Contact Info) Description 09/26/2022 Telephone [facility] [address] [facility] [address] [place] [address] Jana Barger Social History Tobacco [...] - 09/26/2022 9:52 AM EDT Maricruz from [facility] pharmacy called to inquire if this PT is still receiving Retacrit. Please call [phone] Option 2 documented in this encounter Plan of Treatment Upcoming Encounters Date Type Department Care Team (Late Contact Info) Description 04/17/2025 4:00 PM EST Office Visit [facility] [address] [place] [address] Dick Flores MD [address] [facility] [address] [place] [phone] documented as of this encounter Visit Diagnoses Not on filedocumented in this encounter Care Teams Preschool Director Relationship Specialty Start Date End Date Xochilt Mckoy MD [address] [place], [place] PCP - General 06/08/20 documented as of this encounter
--- OUTSIDE RECORDS SUMMARY | 2025-03-24 17:43 | XMS_ITS ---
Author Organization [facility] Care Team Providers Care Quality Checker Name Role Phone Nubia Chaves Unavailable Unavailable Andry Johnson Unavailable Unavailable Jeyson Sellers Unavailable Unavailable Paulina Gomes Unavailable Unavailable Deniz August Unavailable Unavailable Anabell Sahu Unavailable Unavailable Allergies and adverse reactions Code CodeSystem Substance Reaction Severity StartDate Concern Status [id number] SNOMED CT Sulfa Antibiotics Unknown 09/16/2022 active Care Team Name Role Address Phone Organization Dates Anabell Sahu PCP [address], [address], [place] (Office): : [facility] 09/16/2022 - 07/13/2023 Nubia Chaves [address] [facility] [address], [address], [facility] (Office): : [facility] 09/16/2022 - 07/13/2023 Andry Johnson [address] [place] [address], [place], [address], [place] (Office): : [facility] 09/16/2022 - 07/13/2023 Jeyson Sellers [address] [place] [address], [place], [address], [place] (Office): : [facility] 09/16/2022 - 07/13/2023 Paulina Gomes [address] [place] [address], [address], [place] (Office): : [facility] 09/16/2022 - 07/13/2023 Deniz August [address] [facility] [address], [place], [address], [place] (Office): : : [facility] 09/16/2022 - 07/13/2023 Immunizations Immunization Status Vaccine Details Vaccine Code CodeSystem Date Notes TB 2 Step Mantoux Skin Test completed tuberculin skin test; unspecified formulation lotNumber: [id number] expiry: 02/19/2023 Mfg: pharpharm Given 0.1 ml Left Forearm intradermally Step 1 of Multi-step with next step required 98 CVX created date: 09/24/2022 consent date: 09/24/2022 administer ed date: 09/24/2022 PPSV23 (Pneumococcal Polysaccharide Vaccine) completed pneumococcal polysaccharide vaccine, 23 valent 33 CVX created date: 05/17/2023 administer ed date: 01/18/2012 SARS-COV-2 (COVID-19) Moderna completed SARS-COV-2 (COVID-19) vaccine, mRNA, spike protein, LNP, preservative free, 100 mcg/0.5mL dose or 50 mcg/0.25mL dose 207 CVX created date: 05/17/2023 administer ed date: 10/28/2021 SARS-COV-2 (COVID-19) Moderna completed SARS-COV-2 (COVID-19) vaccine, mRNA, spike protein, LNP, preservative free, 3 mcg/0.2mL dose, missy-sucrose formulation 219 CVX created date: 05/17/2023 administer ed date: 09/04/2020 SARS-COV-2 (COVID-19) Moderna completed SARS-COV-2 (COVID-19) vaccine, mRNA, spike protein, LNP, preservative free, 3 mcg/0.2mL dose, missy-sucrose formulation 219 CVX created date: 05/17/2023 administer ed date: 08/07/2020 PCV20 completed Pneumococcal conjugate vaccine 20-valent (PCV20), polysaccharide [id number] conjugate, adjuvant, preservative free lotNumber: [id number] expiry: 02/25/2024 216 CVX created date: 11/22/2022 administer ed date: 11/11/2022 Influenza Fluzone High Dose 0.7ML dose (CVX 197) completed Influenza, high-dose, split virus, quadrivalent, injectable, preservative free lotNumber: [id number] expiry: 10/28/2023 Mfg: [employer] pasteur Given Right Deltoid intramuscularly 197 CVX created date: 02/23/2023 consent date: 02/23/2023 administer ed date: 02/23/2023 Comirnaty (pfizer) COVID19 [id number] completed SARS-COV-2 (COVID-19) vaccine, mRNA, spike protein, LNP, preservative free, 30 mcg/0.3mL dose, missy-sucrose formulation lotNumber: [id number] expiry: 09/27/2023 Given Right Deltoid intramuscularly 217 CVX created date: 06/24/2023 administer ed date: 06/24/2023 Mental Status Section Date Assessment Total Score Description 07/13/2023 BIMS 15 cognitively int act CAM 0 No delirium ind icated PHQ-9 00 06/19/2023 BIMS 15 cognitively int act CAM 0 No delirium ind icated PHQ-9 00 Insurance Providers Problems Problem # Description Date of onset Resolved Date Code CodeSystem Concern Status 1 BENIGN PROSTATIC 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 09/16/[address] active 2 BIPOLAR DISORDER, UNSPECIFIED 09/16/[address] active 3 CHRONIC KIDNEY DISEASE, STAGE 3 UNSPECIFIED 09/16/[address] active 4 DECREASED WHITE BLOOD CELL COUNT, UNSPECIFIED 09/16/[address] active 5 DIFFICULTY IN WALKING, NOT ELSEWHERE CLASSIFIED 09/16/[address] active 6 HYPERLIPIDEMIA, UNSPECIFIED 09/16/[address] active 7 MUSCLE WEAKNESS (GENERALIZED) 09/16/[address] active 8 NEUROMUSCULAR DYSFUNCTION OF BLADDER, UNSPECIFIED 09/16/[address] active 9 OBSTRUCTIVE SLEEP APNEA (ADULT) (PEDIATRIC) 09/16/[address] active 10 OTHER ACUTE OSTEOMYELITIS, RIGHT ANKLE AND FOOT 09/16/[address] active 11 PERIPHERAL VASCULAR DISEASE, UNSPECIFIED 09/16/[address] active 12 TYPE 2 DIABETES MELLITUS WITH DIABETIC POLYNEUROPATHY 09/16/[address] active 13 TYPE 2 DIABETES MELLITUS WITH FOOT ULCER 09/16/[address] active 14 TYPE 2 DIABETES MELLITUS WITHOUT COMPLICATIONS 09/16/[address] active 15 UNSPECIFIED FALL, SUBSEQUENT ENCOUNTER 09/16/[address] active 16 UNSTEADINESS ON FEET 09/16/[address] active 17 VITAMIN D DEFICIENCY, UNSPECIFIED 09/16/[address] active Reason for Referral No Reasons for Referral Entered Social History Social History Observation Description Start Date End Date Code Code System Current Smoking Status Tobacco smoking consumption unknown 224185826 SNOMED CT Sex Assigned At Male 1965 30368-5 LOINC Gender Identity Sexual Orientation Vital Signs Code Code System Vitals Name Values and Units Timing Information 8310-5 LOINC Body Temperature Value=97.6 Units= F 07/13/2023 31004-9 LOINC O2 % BldC Oximetry Value=98.0 Units= % 07/13/2023 08514-8 LOINC Pain Level Value=0.0 07/13/2023 79859-9 [facility] Weight Bjfbq=617.8 Units=Lbs 06/2023 8302-2 [facility] Height Value=65.0 Units=Inches 05/26/2023 9279-1 [facility] Respiratory Rate Value=18.0 Units=/m in 05/01/2023 8867-4 [facility] Heart rate Value=72.0 Units=/min 08/2022 8462-4 [facility] Blood Pressure-Diastolic Value=68 Un its=mmHg 03/05/2023 8480-6 [facility] Blood Pressure-Systolic Oymku=827 Un its=mmHg 03/05/2023 2339-0 [facility] Blood Sugar Value=97.0 Units=mg/dL 10/23/2022
--- OUTSIDE RECORDS SUMMARY | 2025-03-24 17:43 | XMS_ITS | Clinical Summary ---
Author Organization [facility] Address [address] [place] [address] Phone Care Team Providers Care Dentist Private Practice Name Role Phone Xochilt Mckoy MD Primary Care Provider [phone] Allergies Active Allergy Reactions Criticality Noted Date Comments Sulfa Antibiotics 07/15/2021 Medications * This document contains information received from the source organization and may not represent a complete record from that organization. acetaminophen (TYLENOL) 325 MG tablet TAKE 1 TABLET BY MOUTH FOUR TIMES DAILY NEEDED FOR PAIN 06/29/19 21 Active HumaLOG 100 UNIT/ML injection INJECT [...] Do not crush, chew, or split. Active lisinopril 5 MG tablet Take 1 tablet (5 mg total) by mouth 1 (one) time each day 30 tablet 11 03/07/20 24 Active Ozempic, 0.25 or 0.5 MG/DOSE, 2 MG/3ML solution pen-injector INJECT 0.25 MG SUBCUTANEOUSLY EVERY 7 DAYS IN THE ABDOMEN, THIGHS OR UPPER ARM. ROTATE INJECTION SITES. 03/25/20 24 Active ammonium lactate (LAC-HYDRIN) 12 % lotion Apply topically 07/30/19 25 026 Active tadalafil (CIALIS) 5 MG tablet TAKE 1 TABLET BY MOUTH DAILY FOR SEXUAL ACTIVITY 09/28/19 25 Active calcitriol (Rocaltrol) 0.25 MCG capsule Take 1 capsule (0.25 mcg total) by mouth 3 times weekly: Mon and Monday morning 36 capsule 3 10/03/19 25 026 Active D-3-5 125 MCG (5000 UT) capsule TAKE 2 CAPSULES BY MOUTH EVERY 7 DAYS 24 capsule 1 02/13/20 25 Active Active Problems Problem Noted Date Diagnosed [...] Encounters Date Type Department Care Team Description 02/11/2025 Refill [facility] [address] [place] [address] Dick Flores MD 01/23/2025 2:00 PM EDT Office Visit [facility] [address] [place] [id number] Dick Flores MD Stage 3b chronic kidney disease (HCC) (Primary Dx); Other proteinuria; Type 2 diabetes mellitus with diabetic nephropathy (HCC) 01/01/2025 Orders Only [facility] [address] [address] Dick Flores MD Stage 3b chronic kidney [...] Sign Reading Time Taken Comments Blood Pressure 110/70 01/23/2025 2:29 PM EDT Pulse 77 01/23/2025 2:29 PM EDT Temperature - - Respiratory Rate - - Oxygen Saturation 97% 01/23/2025 2:29 PM EDT Inhaled Oxygen Concentration - - Weight 90.4 kg (199 lb 3.2 oz) 01/23/2025 2:29 P M EDT Height 167.6 cm (5' 6 ) 08/18/2022 2:34 PM EDT Body Mass Index 32.15 08/18/2022 2:34 PM EDT Plan of Treatment Upcoming Encounters Date Type Department Care Team (Late st Contact Info) Description 04/17/2025 4:00 PM EST Office Visit [facility] [address] [place] [address] Dick Flores MD [address] [address] Health Maintenance Due Date Last [...] Visual Foot Exam 06/28/2020 Influenza Vaccine (#1) 2025 Procedures Procedure Name Priority Date/Time Associated Diagnosis Comments ALBUMIN, URINE, RANDOM Routine 01/14/2025 11:28 AM EDT URINALYSIS WITH MICROSCOPIC Routine 01/14/2025 11:28 AM EDT PROTEIN / CREATININE RATIO, URINE Routine 01/14/2025 11:28 AM EDT Stage 3b chronic kidney disease (HCC) PTH, INTACT (HC) Routine 01/14/2025 10:5 3 AM EDT CALCIUM Routine 01/14/2025 10:53 AM EDT CREATININE, BLOOD Routine 01/14/2025 10: 53 AM EDT BUN Routine 01/14/2025 10:53 AM EDT ELECTROLYTE PANEL Routine 01/14/2025 10: 53 AM EDT URIC ACID Routine 01/14/2025 10:53 AM EDT Stage 3b chronic kidney disease (HCC) PHOSPHATE ( PHOSPHORUS) Routine 01/14/2025 10:53 AM EDT Stage 3b chronic kidney disease (HCC) MAGNESIUM Routine 01/14/2025 10:53 AM EDT Stage 3b chronic kidney disease (HCC) VITAMIN D 25 HYDROXY Routine 01/14/2025 10:53 AM EDT Stage 3b chronic kidney disease (HCC) CBC AND DIFFERENTIAL Routine 01/14/2025 10:53 AM EDT Stage 3b chronic kidney disease (HCC) HEMOGLOBIN A1C Routine 07/09/2019 8:52 AM EST from Last 3 Months or Most Recently Relevant to Health Maintenance Results * (ABNORMAL) Protein, Total, Random Urine w/Creatinine (Protein/Creat Ratio) (01/14/2025 11:28 AM EDT) Protein Urine Random 37(H) <12 mg/dL See order comments Protein/Creati nine Ratio, Urine 0.53(H) <0.2 See order comments Comment: The spot urine protein:creatinine ratio may increase to 0.3 during normal . Urine specimen (specimen) Urine specimen obtained by clean catch procedure / Unknown 01/14/2025 11:28 AM EDT 01/14/2025 11:28 AM EDT us Dick Flores MD LAB URINE ORDERABLES Final Result [place] See order comments [place] [address] * (ABNORMAL) Albumin, urine, random (01/14/2025 11:28 AM EDT) Creatinine, Urine 70.04 mg/dL Se e order comments Urine Microalbumin 219.0 mg/L See order comments Microalbumin/Crea tinine Ratio 312.6(H) <30 ug/mg cr See order comments Comment: Albumin/Creatinine Ratio Reference Ranges: Normal: < 30 ug/mg creatinine Microalbuminuria: 30 - 300 ug/mg creatinine Clinical Albuminuria: > 300 ug/mg creatinine 01/14/2025 11:2 8 AM EDT 01/14/2025 11:28 AM EDT Dick Flores MD LAB URINE ORDERABLES Final Result Performing Organization Address [facility] Co de Phone Number [place] See order comments [place] [address] * (ABNORMAL) Urinalysis with microscopic (01/14/2025 11:28 AM EDT) Color Urine Yellow See orde r comments Appearance Urine Cloudy See order comments pH Urine 5.5 5.0 - 9.0 See order comments Glucose Urine >=1000(A) Negative mg/dL See order comments Blood, Urine Trace(A) Negative See ord er comments Specific [place] Urine 1.020 1.005 - 1.025 See order comments Protein Urine 30 (1+)(A) Neg-Trace mg/dL See order comments Ketones, Urine Negative Negative mg/dL See order comments Nitrite, Urine Negative Negative See o rder comments Leukocyte Esterase Urine Moderate (2+)(A) Negative See order comments RBC, Urine 0-2 0 - 2 /HPF See orde r comments WBC >50(A) 0 - 5 /HPF See order comments Squamous Epithelial, Urine 0-2 0 - 2 /HPF See order comments Bacteria, Urine 4+ None Seen See order comments Hyaline Casts, Urine 0-2 0 - 2 /LPF See order comments 01/14/2025 11:2 8 AM EDT 01/14/2025 11:28 AM EDT Dick Flores MD LAB URINE ORDERABLES Edited Result - Final Performing Organization Address [facility] Co de Phone Number [place] See order comments [place] [address] * (ABNORMAL) Creatinine (01/14/2025 10:53 AM EDT) Creatinine Serum 1.88(H) 0.5 - 1.4 mg/dL See order comments eGFR (Calc) 37 See orde r comments Comment: Chronic Kidney Disease: Estimated GFR < 60 mL/min/1.73m2 Severe Kidney Disease: Estimated GFR < 15 mL/min/1.73m2 01/14/2025 10:5 3 AM EDT 01/14/2025 10:53 AM EDT us Dick Flores MD LAB BLOOD ORDERABLES Final Result [place] See order comments [place] [address] * (ABNORMAL) PTH, Intact (01/14/2025 10:53 AM EDT) Parathyroid Hormone, Intact 207.9(H) 8.7 - 77.1 pg/mL See order comments 01/14/2025 10:5 3 AM EDT 01/14/2025 10:53 AM EDT us Dick Flores MD LAB HISTORICA [id number] RESULTS Final Result Performing Organization Address [facility] Co de Phone Number [place] See order comments [place] [address] * (ABNORMAL) Vitamin D 25 Hydroxy (01/14/2025 10:53 AM EDT) Vitamin D, 25-Hydroxy 20.3(L) >30 ng/mL See order comments Comment: Health Based Reference Values* < 20 ng/mL Deficient 20-30 ng/mL Insufficient > 30 ng/mL Sufficient *Marcelo CHAKRABORTY. N Engl J Med. 2007;357:266-280 There is no well-established upper level of normal vitamin D levels. Some laboratories use 50 ng/mL as an upper limit of normal. However, toxicity is patient-dependent and may occur at any level. Careful correlation with the patient's presentation is necessary and, if there is concern for vitamin D toxicity, treatment should be considered irrespective of the serum level. Care must be taken in interpreting Vitamin D results from different laboratories and methodologies. Published data demonstrated that results from patients undergoing hemodialysis may show a negative bias when tested with various automated 25-OH vitamin D assays when compared to LC-MS/MS. When testing samples from patients whose predominant form of Vitamin D is Vitamin D2, such as patients receiving Vitamin D2 supplementation, results that are subtherapeutic should be confirmed with another method such as LC-MS/MS. Blood specimen (specimen) Venous blood / Unknown 01/14/2025 10:53 AM EDT 01/14/2025 10:53 AM EDT Dick Flores MD LAB BLOOD ORDERABLES Final Result [place] See order comments [place] [address] * (ABNORMAL) CBC and Differential (01/14/2025 10:53 AM EDT) WBC 13.5(H) 4.8 - 10.8 X10*3/uL See order comments RBC 4.39(L) 4.60 - 5.80 X10*6/uL See order comments Hgb 12.7(L) 14.0 - 18.0 g/dl See order comments Hematocrit 40.8(L) 42.0 - 52.0 % See order comments MCV 92.9 80.0 - 98.0 fL See order comments MCH 28.9 27.0 - 33.0 pg See order comments MCHC 31.1 31.0 - 36.0 g/dl See order comments RDW 16.1(H) 11.0 - 16.0 % See order comments Platelets 386 160 - 400 X10*3/uL See order comments MPV 9.3(L) 9.4 - 12.4 fL See order comments Neutrophils % Auto 71.0 45 - 73 % See order comments Immature Granulocytes 0.4 0.0 - 0.4 % See order comments Lymphocytes Relative 15.8(L) 20 - 40 % See order comments Monocytes 10.7 2 - 11 % See order comments Eosinophils Relative 1.6 0 - 4 % See order comments Basophils Relative 0.5 0 - 2 % See order comments nRBC Count 0.0 0.0 - 0.2 /100WBC See order comments Neutrophils Absolute 9.6(H) 2.0 - 8.3 x10*3/uL See order comments Immature Grans (Absolute) 0.05(H) 0.00 - 0.03 X10*3/uL See order comments Lymphocytes Absolute 2.1 1.2 - 4.9 X10*3/uL See order comments Monocytes Absolute 1.4(H) 0.1 - 1.2 X10*3/uL See order comments Eosinophils Absolute 0.2 0.0 - 0.4 X10*3/uL See order comments Basophils Absolute 0.1 0.0 - 0.2 X10*3/uL See order comments NRBC Absolute 0.000 0.0 - 0.012 X10*3/uL See order comments Blood specimen (specimen) Venous blood / Unknown 01/14/2025 10:53 AM EDT 01/14/2025 10:53 AM EDT us Dick Flores MD LAB BLOOD ORDERABLES Final Result Performing Organization Address [facility]/ZIP Co de Phone Number [place] See order comments [place] [address] * Uric Acid (01/14/2025 10:53 AM EDT) Uric Acid 6.2 3.4 - 7.0 mg/dL See order comments Blood specimen (specimen) Venous blood / Unknown 01/14/2025 10:53 AM EDT 01/14/2025 10:53 AM EDT us Dick Flores MD LAB BLOOD ORDERABLES Final Result Performing Organization Address [facility] de Phone Number [place] See order comments [place] [address] * (ABNORMAL) BUN (01/14/2025 10:53 AM EDT) BUN 52(H) 9 - 16 mg/dL See order comments 01/14/2025 10:5 3 AM EDT 01/14/2025 10:53 AM EDT us Dick Flores MD LAB BLOOD ORDERABLES Final Result Performing Organization Address [facility] de Phone Number [place] See order comments [place] [address] * (ABNORMAL) Phosphorus (01/14/2025 10:53 AM EDT) Phosphorus, Serum 4.7(H) 2.7 - 4.5 mg/dL See order comments Blood specimen (specimen) Venous blood / Unknown 01/14/2025 10:53 AM EDT 01/14/2025 10:53 AM EDT us Dick Flores MD LAB BLOOD ORDERABLES Final Result Performing Organization Address [facility] Phone Number [place] See order comments [place] [address] * Magnesium (01/14/2025 10:53 AM EDT) Magnesium 2.1 1.6 - 2.6 mg/dL See order comments Blood specimen (specimen) Venous blood / Unknown 01/14/2025 10:53 AM EDT 01/14/2025 10:53 AM EDT us Dick Flores MD LAB BLOOD ORDERABLES Final Result Performing Organization Address [facility] Phone Number [place] See order comments [place] [address] * Calcium (01/14/2025 10:53 AM EDT) Calcium 8.6 8.4 - 10.2 mg/dL See order comments 01/14/2025 10:5 3 AM EDT 01/14/2025 10:53 AM EDT us Dick Flores MD LAB BLOOD ORDERABLES Final Result Performing Organization Address [facility] Phone Number [place] See order comments [place] [address] * (ABNORMAL) Electrolyte panel (01/14/2025 10:53 AM EDT) Sodium 141 135 - 145 mmol/L See order comments Potassium 5.1 3.3 - 5.1 mmol/L See order comments Chloride 113(H) 96 - 108 mmol/L See order comments Bicarbonate (CO2) 21(L) 22 - 29 mmol/L See order comments Anion Gap 12 12 - 20 See order comments 01/14/2025 10:5 3 AM EDT 01/14/2025 10:53 AM EDT us Dick Flores MD LAB BLOOD ORDERABLES Final Result [place] See order comments [place] [address] * Hemoglobin A1c (07/09/2019 8:52 AM EST) Hemoglobin A1C 5.4 % [place] Comment: Hemoglobin A1C Reference Range Adults: 4.8 - 6.0 % Non diabetic: < 6.0 % Goal: < 7.0 % Additional Action Suggested: > 8.0 % Note: Hemoglobin A1c results are invalid for patients with abnormal amounts of HbF. Blood transfusions may impact the HbA1c concentration in the patient sample. Estimated Average Glucose 108 MG/DL [place] Comment: eAG = Estimated average glucose which is %A1C expressed as average glucose, using the formula of the [id number] Average Glucose study (ADAG), Diabetes Care, Vol.31,#8, Dec. 2007 07/09/2019 8:52 AM EST us Rtama Conversion LAB BLOOD ORDERABLES Final Resu lt [place] from Last 3 Months or Most Recently Relevant to Health Maintenance Insurance [address] [place] [address] [facility] Medicaid Care Teams Dentist Private Practice Relationship Specialty Start Date End Date Xochilt Mckoy MD [address] [place], [place] PCP - General 06/08/20
--- OUTSIDE RECORDS SUMMARY | 2025-03-24 17:43 | XMS_ITS | Clinical Summary ---
Author Organization [address] [facility] Address [address] [place] [address] Phone Care Team Providers Care Flame Annealing Machine Setter Name Role Phone Xochilt Singh MD Primary Care Provider [phone] Allergies Active Allergy Reactions Criticality Noted Date [...] skin. 400 g 5 07/30/19 26 Active ammonium lactate (AmLactin) 12 % lotion Apply topically if needed for dry skin. 400 g 5 01/30/20 26 Active Active Problems Problem Noted Date Diagnosed Date Amputation of toe ([facility] V24) 05/02/2018 Diabetic polyneuropathy asso ciated with type 2 diabetes mellitus ([facility] V24, [facility] V28) 05/02/2018 Status post amputation of toe of left foot ([facility] V24) 05/02/2018 Encounters Date Type Department Care Team Description 01/29/2025 10:00 AM EDT Office Visit Orthopedic Surgery - [place] [address] [facility] [address] [place] [address] Trevor Harris DPM Acquired hammer toe of right foot (Primary Dx); Follow-up exam; Fissure in skin of both feet; Metatarsalgia of both feet; Corns and callosities; Type II diabetes mellitus with peripheral circulatory disorder ([facility] V24, [facility] V28); Diabetic mononeuropathy simplex ([facility] V24, [facility] V28); Dermatophytosis of nail; Pain in toe of right foot; Pain in toe of left foot from Last 3 Months Social History Tobacco [...] Care Team (Late st Contact Info) Description 05/01/2025 9:45 AM EST Office Visit Orthopedic Surgery - [address] [address] Trevor Harris, [address] [address] Health Maintenance Due Date Last Done Comments Colorectal Cancer Screening: Colonoscopy 1965 Diabetes: Annual Foot Exam 1975 Diabetes: Annual Retina Eye Exam 1975 Hepatitis B Vaccines (3 of 3 - 19+ 3-dose series) 01/06/2015 11/11/2014, 07/03/2014 RSV Immunization Adult Patients (1 - Risk 50-74 years 1-dose series) 2015 Zoster Vaccines (1 of 2) 2015 Diabetes: Blood Sugar Control Test (HGBA1C) 05/08/2022 07/09/2019 HIV Screening 05/08/2022 Hepatitis C Screening 05/08/2022 Social Influencers of Health Screening 05/08/2022 Depression Screening 05/29/2024 Diabetes: Annual GFR (Glomerular Filtration Rate) 09/21/2024 09/22/2023 COVID-19 Vaccine ( season) 2025 06/22/2023, 10/28/2021, 09/04/2020, Additional history exists Influenza Vaccine (#1) 2025 , 02/25/2022, 03/25/2021, Additional history exists Diabetes: Annual Urine Albumin-Creatinine Ratio (uACR) 01/14/2026 01/14/2025, 09/22/2023 Cholesterol Screening (Lipid Panel) 10/25/2029 10/25/2024 DTaP,Tdap,and Td Vaccines (3 - Td or Tdap) 01/08/2032 01/07/2022, 01/18/2012 Pneumococcal Vaccine: 50+ Years Completed 02/23/2023, 01/18/2012 [...] Procedure Name Priority Date/Time Associated Diagnosis Comments XR FOOT 3+ VIEWS BILAT Routine 01/29/2025 10:23 AM EDT Follow-up exam from Last 3 Months Results * XR Foot 3+ Views bilat (01/29/2025 10:23 AM EDT) Anatomical Region Laterality Modality Lower Extremities, Foot Bilateral Computed Radiography Narrative 01/29/2025 11:54 AM EDT Left foot 3 views Postop changes from 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 Care Teams Flame Annealing Machine Setter Relationship Specialty Start Date End Date Xochilt Singh MD [address] [place] [address] , [address] [facility] D[facility]A: [facility] [place] PCP - General Internal Medicine 04/05/21
== END 2025-03-24 14:26 | disposition home or self-care (01) ==
LOC: HO.HPS 14:02
PROVIDERS: PCP Internal Medicine; Visit Provider Internal Medicine
DX: E66.9 Obesity, unspecified (principal); G47.33 Obstructive sleep apnea (adult) (pediatric); J98.4 Other disorders of lung
CPT/HCPCS: 99213

== ENCOUNTER → 2025-03-24 14:01 | Outpatient (BNVA) | payer OTHER, SELFPAY | PROVIDERS: PCP Internal Medicine; Visit Provider Internal Medicine | DX: G47.33 Obstructive sleep apnea (adult) (pediatric) (principal); Z99.89 Dependence on other enabling machines and devices; E66.9 Obesity, unspecified; J98.4 Other disorders of lung | CPT/HCPCS: 99212 ==

== ENCOUNTER 2025-03-28 06:57 | Outpatient (REF) | payer OTHER, SELFPAY ==
--- OUTSIDE RECORDS SUMMARY | 2025-03-28 07:01 | XMS_ITS ---
Author Organization [facility] Care Team Providers Care Area Field Manager Name Role Phone Nubia Chaves Unavailable Unavailable Andry Johnson Unavailable Unavailable Jeyson Sellers Unavailable Unavailable Paulina Gomes Unavailable Unavailable Deniz August Unavailable Unavailable Anabell Sahu Unavailable Unavailable Allergies and adverse reactions Code CodeSystem Substance Reaction Severity StartDate Concern Status 838385217 SNOMED CT Sulfa Antibiotics Unknown 09/16/2022 active Care Team Name Role Address Phone Organization Dates Anabell Sahu PCP [address], [address], [place] (Office): [facility] 09/16/2022 - 07/13/2023 Nubia Chaves [address] [facility] [address], [place], [address], [facility] (Office): : [facility] 09/16/2022 - 07/13/2023 Andry Johnson [address] [place] [address], [place], [address], [place] (Office): : [facility] 09/16/2022 - 07/13/2023 Jeyson Sellers [address] [place] [address], [place], [address], [place] (Office): : [facility] 09/16/2022 - 07/13/2023 Paulina Gomes [address] [place] [address], [address], [place] (Office): : [facility] 09/16/2022 - 07/13/2023 Deniz August [address] [facility] [address], [place], [address], [place] (Office): : : [facility] 09/16/2022 - 07/13/2023 Immunizations Immunization Status Vaccine Details Vaccine Code CodeSystem Date Notes TB 2 Step Mantoux Skin Test completed tuberculin skin test; unspecified formulation lotNumber: [id number] expiry: 02/19/2023 Mfg: pharpharm Given 0.1 ml [...] completed Pneumococcal conjugate vaccine 20-valent (PCV20), polysaccharide [id number] conjugate, adjuvant, preservative free lotNumber: [id number] expiry: 02/25/2024 216 CVX created date: 11/22/2022 administer ed date: 11/11/2022 Influenza Fluzone High Dose 0.7ML dose (CVX 197) completed Influenza, high-dose, split virus, quadrivalent, injectable, preservative free lotNumber: [id number] expiry: 10/28/2023 Mfg: Sanofi pasteur Given Right Deltoid intramuscularly 197 CVX created date: 02/23/2023 consent date: 02/23/2023 administer ed date: 02/23/2023 Comirnaty (pfizer) COVID19 [id number] completed SARS-COV-2 (COVID-19) vaccine, mRNA, spike protein, LNP, preservative free, 30 mcg/0.3mL dose, missy-sucrose formulation lotNumber: [id number] expiry: 09/27/2023 Given Right Deltoid intramuscularly 217 [...] 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 09/16/[address] active 2 BIPOLAR DISORDER, UNSPECIFIED 09/16/[address] active 3 CHRONIC KIDNEY DISEASE, STAGE 3 UNSPECIFIED 09/16/[address] active 4 DECREASED WHITE BLOOD CELL COUNT, UNSPECIFIED 09/16/[address] active 5 DIFFICULTY IN WALKING, NOT ELSEWHERE CLASSIFIED 09/16/[address] active 6 HYPERLIPIDEMIA, UNSPECIFIED 09/16/[address] active 7 MUSCLE WEAKNESS (GENERALIZED) 09/16/[address] active 8 NEUROMUSCULAR DYSFUNCTION OF BLADDER, UNSPECIFIED 09/16/[address] active 9 OBSTRUCTIVE SLEEP APNEA (ADULT) (PEDIATRIC) 09/16/[address] active 10 OTHER ACUTE OSTEOMYELITIS, RIGHT ANKLE AND FOOT 09/16/[address] active 11 PERIPHERAL VASCULAR DISEASE, UNSPECIFIED 09/16/[address] active 12 TYPE 2 DIABETES MELLITUS WITH DIABETIC POLYNEUROPATHY 09/16/[address] active 13 TYPE 2 DIABETES MELLITUS WITH FOOT ULCER 09/16/[address] active 14 TYPE 2 DIABETES MELLITUS WITHOUT COMPLICATIONS 09/16/[address] active 15 UNSPECIFIED FALL, SUBSEQUENT ENCOUNTER 09/16/[address] active 16 UNSTEADINESS ON FEET 09/16/[address] active 17 VITAMIN D DEFICIENCY, UNSPECIFIED 09/16/[address] active Reason for Referral No Reasons for Referral Entered Social History Social History Observation Description Start Date End Date Code Code System Current Smoking Status Tobacco smoking consumption unknown 218962534 SNOMED CT Sex Assigned At Male 1965 37765-0 LOINC Gender Identity Sexual Orientation Vital Signs Code Code System Vitals Name Values and Units Timing Information 8310-5 LOINC Body Temperature Value=97.6 Units= F 07/13/2023 54749-9 LOINC O2 % BldC Oximetry Value=98.0 Units= % 07/13/2023 02069-4 LOINC Pain Level Value=0.0 07/13/2023 17220-2 [facility] Weight Rqedx=790.8 Units=Lbs 06/2023 8302-2 [facility] Height Value=65.0 Units=Inches 05/26/2023 9279-1 [facility] Respiratory Rate Value=18.0 Units=/m in 05/01/2023 8867-4 [facility] Heart rate Value=72.0 Units=/min 08/2022 8462-4 [facility] Blood Pressure-Diastolic Value=68 Un its=mmHg 03/05/2023 8480-6 [facility] Blood Pressure-Systolic Hcqbo=971 Un its=mmHg 03/05/2023 2339-0 [facility] Blood Sugar Value=97.0 Units=mg/dL 10/23/2022
--- OUTSIDE RECORDS SUMMARY | 2025-03-28 07:01 | XMS_ITS | Clinical Summary ---
Author Organization [facility] Address [address] [place] [address] Phone Care Team Providers Care Manager Clinic Name Role Phone Xochilt Singh MD Primary Care Provider [phone] Allergies Active Allergy Reactions Criticality Noted Date [...] Noted Date Diagnosed Date Amputation of toe ([facility] V24) 05/02/2018 Diabetic polyneuropathy asso ciated with type 2 diabetes mellitus ([facility] V24, [facility] V28) 05/02/2018 Status post amputation of toe of left foot ([facility] V24) 05/02/2018 Encounters Date Type Department Care Team Description 01/29/2025 10:00 AM EDT Office Visit Orthopedic Surgery - [place] [address] [facility] [address] [place] [address] Trevor Harris DPM Acquired hammer toe of right foot (Primary Dx); Follow-up exam; Fissure in skin of both feet; Metatarsalgia of both feet; Corns and callosities; Type II diabetes mellitus with peripheral circulatory disorder ([facility] V24, [facility] V28); Diabetic mononeuropathy simplex ([facility] V24, [facility] V28); Dermatophytosis of nail; Pain in toe [...] AM EST Office Visit Orthopedic Surgery - [address] [address] Trevor Harris, [address] [address] Health Maintenance Due Date Last [...] Postop changes from fifth ray resection 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 Care Teams Manager Clinic Relationship Specialty Start Date End Date Xochilt Singh MD [address] [place] [address] , [address] [facility] D/B/A: [facility] [place] PCP - General Internal Medicine 04/05/21
--- OUTSIDE RECORDS SUMMARY | 2025-03-28 07:01 | XMS_ITS | Encounter Summary ---
Author Organization [facility] Address [address] [facility] [address] [place] [address] Phone Care Team Providers Care Associate Relations Specialist Name Role Phone Xochilt Mckoy MD Primary Care Provider [phone] Encounter Details Date Type Department Care Team ([facility] Contact Info) Description 09/26/2022 Telephone [facility] [address] [place] [address] Jana Barger Social History Tobacco [...] - 09/26/2022 9:52 AM EDT Maricruz from [facility] pharmacy called to inquire if this PT is still receiving Retacrit. Please call [phone] Option 2 documented in this encounter Plan of Treatment Upcoming Encounters Date Type Department Care Team (Late Contact Info) Description 04/17/2025 4:00 PM EST Office Visit [facility] [address] [place] [address] Dick Flores MD [address] [address] 04/25/2025 Orders Only [facility] [address] [place] [phone] Dick Flores MD [address] [address] Stage 3b chronic kidney disease (HCC); Other proteinuria; Type 2 diabetes mellitus with diabetic nephropathy (HCC) documented as of this encounter Visit Diagnoses Not on filedocumented in this encounter Care Teams Associate Relations Specialist Relationship Specialty Start Date End Date Xochilt Mckoy MD [address] [place], [place] PCP - General 06/08/20 documented as of this encounter
--- OUTSIDE RECORDS SUMMARY | 2025-03-28 07:01 | XMS_ITS | Clinical Summary ---
Author Organization [facility] Address [address] [facility] [place] [address] Phone Care Team Providers Care Document Reviewer Name Role Phone Xochilt Mckoy MD Primary Care Provider [phone] Allergies Active Allergy Reactions Criticality Noted Date [...] Refill [facility] [address] [place] [address] Dick Flores MD 01/23/2025 2:00 PM EDT Office Visit [facility] [address] [place] [phone] Dick Flores MD Stage 3b chronic kidney disease (HCC) (Primary Dx); Other proteinuria; Type 2 diabetes mellitus with diabetic nephropathy (HCC) 01/01/2025 Orders Only [facility] [address] [address] Dick Flores MD Stage 3b [...] Visit [facility] [address] [place] [address] Dick Flores MD [address] [address] 04/25/2025 Orders Only [facility] [address] [place] [address] Dick Flores MD [address] [facility] [address] [place] [address] Stage 3b chronic kidney disease (HCC); Other proteinuria; Type 2 diabetes mellitus with diabetic nephropathy (HCC) Health Maintenance Due Date Last Done Comments Hepatitis B Vaccine (1 of 3 - 19+ 3-dose series) 1984 Pneumococcal Vaccine: 50+ Ye ars (2 of 2 - PCV) 01/17/2013 01/18/2012 Colorectal Cancer Screening: Annual FOBT 2014 Colorectal Cancer Screening: Colonoscopy 2014 Colorectal Cancer Screening: Sigmoidoscopy 2014 Diabetes: Hemoglobin A1C 06/28/2020 07/09/2019, 04/0 05/2018 Diabetes: Ophthalmology Exam 06/28/2020 Diabetes: Pedal Pulse Checked 06/28/2020 Diabetes: Sensory Foot Exam 06/28/2020 Diabetes: Visual Foot Exam 06/28/2020 Influenza Vaccine (#1) 2025 Pneumococcal Vaccine: Peds ( 0 to 5 Years) and At-Risk Patients (6 to 49 Years) Discontinued 01/18/2012 Procedures Procedure Name Priority Date/Time Associated Diagnosis [...] Flores MD LAB URINE ORDERABLES Final Result [place] See order comments [place] [address] * (ABNORMAL) Albumin, urine, random (01/14/2025 11:28 [...] 8 AM EDT 01/14/2025 11:28 AM EDT us Dick Flores MD LAB URINE ORDERABLES Final Result [place] See order comments [place] [address] * (ABNORMAL) Urinalysis with microscopic (01/14/2025 11:28 AM EDT) Color Urine Yellow See orde r comments Appearance Urine Cloudy See order comments pH Urine 5.5 5.0 - 9.0 See order comments Glucose Urine >=1000(A) Negative mg/dL See order comments Blood, Urine Trace(A) Negative See ord er comments Specific [place] Urine 1.020 1.005 - 1.025 See order [...] 8 AM EDT 01/14/2025 11:28 AM EDT us Dick Flores MD LAB URINE ORDERABLES Edited Result - Final Performing Organization Address [facility] Co de Phone Number [place] See order comments [place] [address] * (ABNORMAL) Creatinine (01/14/2025 10:53 AM EDT) Creatinine Serum 1.88(H) 0.5 - 1.4 mg/dL See order comments eGFR (Calc) 37 See orde r comments Comment: Chronic Kidney Disease: Estimated GFR < 60 mL/min/1.73m2 Severe Kidney Disease: Estimated GFR < 15 mL/min/1.73m2 01/14/2025 10:5 3 AM EDT 01/14/2025 10:53 AM EDT Dick Flores MD LAB BLOOD ORDERABLES Final Result Performing Organization Address [facility] de Phone Number [place] See order comments [place] [address] * (ABNORMAL) PTH, Intact (01/14/2025 10:53 AM EDT) Parathyroid Hormone, Intact 207.9(H) 8.7 - 77.1 pg/mL See order comments 01/14/2025 10:5 3 AM EDT 01/14/2025 10:53 AM EDT us Dick Flores MD LAB HISTORICA [id number] RESULTS Final Result Performing Organization Address [facility] de Phone Number [place] See order comments [place] [address] * (ABNORMAL) Vitamin D 25 Hydroxy (01/14/2025 [...] Flores MD LAB BLOOD ORDERABLES Final Result [place] See order comments [place] [address] * (ABNORMAL) CBC and Differential (01/14/2025 10:53 [...] BLOOD ORDERABLES Final Result Performing Organization Address [facility] Co de Phone Number [place] See order comments [place] [address] * Uric Acid (01/14/2025 10:53 AM EDT) Uric Acid 6.2 3.4 - 7.0 mg/dL See order comments Blood specimen (specimen) Venous blood / Unknown 01/14/2025 10:53 AM EDT 01/14/2025 10:53 AM EDT us Dick Flores MD LAB BLOOD ORDERABLES Final Result Performing Organization Address [facility] Co de Phone Number [place] See order comments [place] [address] * (ABNORMAL) BUN (01/14/2025 10:53 AM EDT) BUN 52(H) 9 - 16 mg/dL See order comments 01/14/2025 10:5 3 AM EDT 01/14/2025 10:53 AM EDT us Dick Flores MD LAB BLOOD ORDERABLES Final Result Performing Organization Address [facility] Phone Number [place] See order comments [place] [address] * (ABNORMAL) Phosphorus (01/14/2025 10:53 AM EDT) Phosphorus, Serum 4.7(H) 2.7 - 4.5 mg/dL See order comments Blood specimen (specimen) Venous blood / Unknown 01/14/2025 10:53 AM EDT 01/14/2025 10:53 AM EDT us Dick Flores MD LAB BLOOD ORDERABLES Final Result Performing Organization Address [facility] Phone Number [place] See order comments [place] [address] * Magnesium (01/14/2025 10:53 AM EDT) Magnesium 2.1 1.6 - 2.6 mg/dL See order comments Blood specimen (specimen) Venous blood / Unknown 01/14/2025 10:53 AM EDT 01/14/2025 10:53 AM EDT us Dick Flores MD LAB BLOOD ORDERABLES Final Result Performing Organization Address [facility] Phone Number [place] See order comments [place] [address] * Calcium (01/14/2025 10:53 AM EDT) Calcium 8.6 8.4 - 10.2 mg/dL See order comments 01/14/2025 10:5 3 AM EDT 01/14/2025 10:53 AM EDT us Dick Flores MD LAB BLOOD ORDERABLES Final Result Performing Organization Address [facility] Co de Phone Number [facility] See order comments [place] [address] * (ABNORMAL) Electrolyte panel (01/14/2025 10:53 AM [...] EDT 01/14/2025 10:53 AM EDT us Dick Flroes MD LAB BLOOD ORDERABLES Final Result Performing Organization Address [facility] de Phone Number [place] See order comments [place] [address] * Hemoglobin A1c (07/09/2019 8:52 AM EST) Hemoglobin A1C 5.4 % [place] Comment: Hemoglobin A1C Reference Range Adults: 4.8 - 6.0 % Non diabetic: < 6.0 % Goal: < 7.0 % Additional Action Suggested: > 8.0 % Note: Hemoglobin A1c results are invalid for patients with abnormal amounts of HbF. Blood transfusions may impact the HbA1c concentration in the patient sample. Estimated Average Glucose 108 MG/DL MIGUELEL Comment: eAG = Estimated average glucose which is %A1C expressed as average glucose, using the formula of the R2Q-Vckftzq Average Glucose study (ADAG), Diabetes Care, Vol.31,#8, 2007 07/09/2019 8:52 AM EST us Rtama Conversion LAB BLOOD ORDERABLES Final Resu lt Performing Organization Address [facility] Co de Phone Number [place] from Last 3 Months or Most Recently Relevant to Health Maintenance Insurance [facility] Medicaid Care Teams Document Reviewer Relationship Specialty Start Date End Date Xochilt Mckoy MD [address] [place], [place] PCP - General 06/08/20
--- OUTSIDE RECORDS SUMMARY | 2025-03-28 07:01 | XMS_ITS | Clinical Summary ---
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) MiscIndications: Type 2 diabetes mellitus with diabetic [...] he needs to meet with our physician workers compensation claims assistant to train him and get pump [...] Type Department Care Team Description 03/14/2025 Telephone [facility] Endocrinology [address] [place] [address] Aaron Courtney DO BROKEN DEXCOM G6 TRANSMITTER 01/29/2025 Telephone [facility] [address] [place] [address] [place] [phone] Gwen Clayton MA Medication Prior Authorization 01/24/2025 Orders Only [facility] [address] [place] [address] Aaron Courtney DO Type 2 diabetes mellitus with diabetic polyneuropathy, without long-term current use of insulin (Primary Dx) 01/23/2025 Telephone [facility] Endocrinology [address] [place] [address] Aaron Courtney DO Omnipod refill (Omnipod refill request); Medication Prior Authorization 01/20/2025 Telephone [facility] Endocrinology [address] [place] [address] Aaron Courtney DO Ozempic Prior Auth (Ozempic [...] 3:20 PM EST Office Visit [facility] [address] [place] [address] Aaron Courtney DO [address] [place] [address] [email or web address] Health Maintenance Due Date Last Done Comments [...] HEMOGLOBIN A1C 5.9(H) 4.3 - 5.8 % [facility] Blood 10/25/2024 9:16 AM EDT 10/25/2024 9:18 AM EDT us Aaron Courtney DO LAB BLOOD ORDERABLES Final Resul t [facility] [address] [place], [place] [phone] from Last 3 Months or Most Recently Relevant to Health Maintenance Insurance [facility] [address] [place] [phone] [facility] [address] [place] [id number] [address] [place] [phone] [address] [place] [address] [facility] [address] [place] [id number] [place] [phone] [place] [address] [address] [place] [id number] [facility] [address] [place] [phone] [place] [address] ACO Care Teams Family Counselor Relationship Specialty Start Date End Date Xochilt Mckoy MD [address] [place] [address] PCP - General Internal Medicine 03/18/22 Additional Source Comments The information contained in this document represents components of the legal health record. It is not the complete legal health record.[facility]
[2025-03-29 05:33] LABS: Follicle Stimulating Hormone 10.5 mIU/mL (1.4-12.8)
[2025-04-01 18:58] LABS: Testosterone-Albumin 3.4 g/dL (3.6-5.1); Testosterone-Bioavailable 66.8 ng/dL (110.0-575.0); Testosterone-Free 42.4 pg/mL (46.0-224.0); Testosterone-Total 414 ng/dL (250-1100)
== END 2025-03-28 06:58 | disposition home or self-care (01) ==
LOC: HO.LAB 06:57
PROVIDERS: Urology; PCP Internal Medicine; Visit Provider Internal Medicine
DX: E29.1 Testicular hypofunction (principal)
CPT/HCPCS: 36415; 83001; 83002; 84270; 84403

== ENCOUNTER 2025-04-01 13:44 | Outpatient (AMB) | payer OTHER, SELFPAY ==
[2025-04-01 13:50] VITALS: BP 120/68; PULSE 72; TEMP 36.3; O2SAT 98; BMI 33.0
--- NOTE | 2025-04-01 13:50 | MHC.PC.OV ---
Vital Signs 04/01/25 13:50 Height 5 ft 5 in Weight 198 lb 8 oz BMI 33.0 BP 120/68 Blood Pressure Location Lt brachial Position Sitting Pulse 72 Pulse Source Pulse Oximeter Temp 97.3 F Temp Source Temporal Artery Scan Pulse Oximetry (%) 98 Oxygen Delivery Method Room Air Intake Visit Reasons: dm Intake Note: Patient here for a 4 month follow up DM Stunt Person Required: No Accompanied by: POULTRY PINNER Allergies Sulfa (Sulfonamide Antibiotics) (SULFA (SULFONAMIDE ANTIBIOTICS)) Allergy (Intermediate, Verified 04/01/25 14:05) hives Medication List - Last Reconciled 04/01/25 by Xochilt Singh MD acetaminophen 650 mg (2 x 325 mg) PO BID 30 days atorvastatin 10 mg PO DAILY blood pressure test kit-medium As directed blood sugar diagnostic (FreeStyle Test strips) Use 4 test strip once a day blood-glucose meter (FreeStyle Lite Meter kit) As directed cholecalciferol (vitamin D3) PO [compression stockings knee high As directed] docusate sodium 100 mg PO BID PRN empagliflozin (Jardiance) 25 mg PO DAILY epinephrine 0.3 mg IM Q10M PRN ergocalciferol (vitamin D2) (Vitamin D2) 1,250 mcg PO QWEEK 90 days insulin lispro subcut mirtazapine 30 mg PO BEDTIME 90 days pen needle, diabetic (BD Ultra-Fine Short Pen Needle) As directed [raised toilet seat As directed] semaglutide (Ozempic) 2 mg subcut QWEEK tadalafil 5 mg PO DAILY 90 days [tub seat As directed] walker (Ultra-Light Rollator misc) As directed [wheelchair electric As directed] [wrist splint As directed] Tobacco use date assessed: 04/01/25 Dental Screening Dental Screen Date: 04/01/25 Did you have a dental visit in the last 12 months?: Yes Did you have a dental problem in the last 6 months where you did not have access to dental care?: No Was dental information given to patient?: Patient has dentist HPI HPI Comments History of Present Illness Details The patient is a 59-year-old male presenting for follow-up and management of chronic conditions. His last HbA1c in September was 5.8%, but his recent result is 5.5 %. His current blood glucose levels are reported to be around 120-130 mg/dL. He recently traveled to [place] and reports dietary indiscretion, having consumed all his meals from outside. 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 The condition does not currently require dialysis. He has associated anemia and parathyroid issues related to his kidney condition. His medication regimen includes vitamin D for a known deficiency, docusate as needed for constipation, Jardiance 25 mg, insulin, and mirtazapine at night. He does not take Ozempic. A testosterone level was drawn by his urologist on March 28, but the results are still pending. Has hyperlipidemia on statin. Bipolar disorder follow by psych. 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 Diabetic nephropathy associated with type 2 diabetes mellitus Mood disorder Diabetes mellitus Bipolar disorder with psychotic features Hypertension Osteomyelitis Bipolar 1 disorder Difficulty walking Neuromuscular dysfunction of bladder PVD (peripheral vascular disease) Benign prostatic hyperplasia Hyperlipidemia Restrictive lung disease Bacteremia Foot ulcer Headache Patellofemoral arthritis of left knee Microalbuminuria Left knee pain Foot osteomyelitis, right Anemia in chronic kidney disease Right foot pain PAD (peripheral artery disease) Anemia CKD (chronic kidney disease) stage 3, GFR 30-59 ml/min CKD stage G3b/A2, GFR 30-44 and albumin creatinine ratio 30-299 mg/g Osteomyelitis Morbid obesity 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 deficiency 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 Brother No problems noted. Son No problems noted. Daughter In good health Maternal Grandmother DM (diabetes mellitus) Stroke Social History Household Members: None Housing: Unknown / Unable to assess Alcohol intake: never Patient Tobacco Use Status: Never used Tobacco e-Cigarette/Vaping Use: Never Used Second Hand Smoke Exposure: No Substance Use Type: Marijuana Advance Directives Date on File: 09/19/22 service: No Current occupational status: disabled Sexual orientation: Did not discuss. Cognitive needs: No Hearing needs: No Vision needs: Yes Questionnaire PHQ-9 Over the last 2 weeks, how often have you been bothered by any of the following problems? 1. Little interest or pleasure in doing things: not at all 2. Feeling down, depressed, or hopeless: not at all 3. Trouble falling or staying asleep, or sleeping too much: not at all 4. Feeling tired or having little energy: not at all 5. Poor appetite or overeating: not at all 6. Feeling bad about yourself - or that you are a failure or have let yourself or your family down: not at all 7. Trouble concentrating on things, such as reading the newspaper or watching television: not at all 8. Moving or speaking so slowly that other people could have noticed. Or the opposite - being so fidgety or restless that you have been moving around a lot more than usual: not at all 9. Thoughts that you would be better off or of hurting yourself in some way: not at all Total score: 0 Depression Screening Interpretation: Negative Depression Screening Done: Yes 69694 - PHQ-9 Billing: Yes Source: Developed by Drs. Glenn Pritchard, Vanessa Hernandez, Jules Sims and colleagues, with an educational darlin from [employer]. Thrive Questionnaire Date Thrive assessed: 07/03/24 I am a: Patient What is your living situation today?: I have a steady place to live Within the past 12 months, did the food you bought not last and you didn't have the money to get more?: I choose not to answer this question Within the past 12 months, did you worry whether your food would run out before you got money to buy more?: I choose not to answer this question Do you have trouble paying for medicines?: No Do you have trouble getting transportation to medical appointments?: No Do you have trouble paying your heating and electricity bill?: No Do you have trouble taking care of your child, family member or friend?: I choose not to answer this question Do you have trouble with day-to-day activities such as bathing, preparing meals, shopping, managing finances, etc.?: No Are you currently unemployed and looking for a job?: I choose not to answer this question Are you interested in more education?: I choose not to answer this question Please select the resources that you would like help with: None Currently or been in a relationship where the following occur: I choose not to answer THRIVE Score: 0 MELISA-7 AMB Questionnaire MELISA-7 Date MELISA - 7 assessed: 07/03/24 Feeling nervous, anxious, or on edge: 0 = Not at all Not being able to stop or control worryin = Not at all Worrying too much about different things: 0 = Not at all Trouble relaxin = Not at all Being so restless that it is hard to sit still: 0 = Not at all Becoming easily annoyed or irritable: 0 = Not at all Feeling afraid as if something awful might happen: 0 = Not at all Total MELISA-7 score (0-4 normal; 5-9 mild; 10-14 moderate; 15-21 severe): 0 Source: Developed by Drs. Glenn Pritchard, Vanessa Hernandez, Jules Sims and colleagues, with an educational darlin from [employer]. MELISA-7 Assessment Billing MELISA-7 Assessment Tool: MELISA-7 Assessment 44812 Review of Systems Const All systems reviewed & are unremarkable except as noted in HPI and below Card Denies chest pain at rest, Denies chest pain with activity, Denies edema, Denies irregular heart rhythm, Denies claudication, Denies dyspnea, Denies dyspnea on exertion, Denies orthopnea, Denies paroxysmal nocturnal dyspnea and Denies slow heart rate Resp Denies cough, Denies dyspnea and Denies dyspnea on exertion GI Denies abdominal pain, Denies change in bowel habits, Denies excessive flatus, Denies nausea and Denies vomiting Physical exam (Primary Care) Vital Signs: Last Vital Signs Temp 97.3 F 04/01/25 13:50 Pulse 72 04/01/25 13:50 BP 120/68 04/01/25 13:50 Pulse Ox 98 04/01/25 13:50 Oxygen Delivery Method Room Air 04/01/25 13:50 BMI result Body Mass Index 33.0 Tobacco/Smoking Status: Tobacco use Status Tobacco use date assessed 04/01/25 04/01/25 13:52 Patient Tobacco Use Status Never used Tobacco 04/01/25 13:52 e-Cigarette/Vaping Use Never Used 04/01/25 13:52 PHQ-9: PHQ-9 Score PHQ-9: Total score 0 04/01/25 14:17 Depression Screening Interpretation: Negative Thrive Assessment: Date of Thrive Assessment Date Thrive assessed 07/03/24 04/01/25 13:52 Currently or been in a relationship where the following occur: I choose not to answer Resp Effort & Inspection: normal respiratory effort Auscultation: clear to auscultation bilaterally Cardio Jugular venous distension: no JVD Rate: regular rate Rhythm: regular rhythm Heart sounds: S1 normal heart sound present and S2 normal heart sound present Extrem General: Yes full ROM Office Procedures Flu Questionnaire Does the patient have a severe egg allergy?: No Does the patient have severe life threatening allergies?: No Does the patient have a fever or illness today?: No Has the patient ever had Guillain-Prescott Syndrome?: No Has the patient ever had any past reaction to a flu shot?: No Results AMB Hemoglobin A1c AMB Hemoglobin A1c 5.5 % Last Edit by Marcy Chacko CMA on 04/01/25 14:16 Immunizations Fluarix [id number] (PF) 45 mcg (15 mcg x 3)/0.5 mL IM syringe Performing Provider: Xochilt Singh MD [place] [facility] [place] [facility] Administered by: Nubia Darling LPN on 04/01/25 14:30 Dose Route Admin Location Dispensed Lot Number Expiration Date NDC Medical Referral Coordinator 0.5 mL IM Left Deltoid 0.5 mL [id number] 11/25/25 [id number] [employer] VIS Given Date VIS Provided VIS Publication Date 04/01/25 Single Vaccine 24 Eligibility Eligibility Date Funding Source Not [facility] Eligible 04/01/25 Private Results Reviewed Results Reviewed: Laboratory Last Values Hgb A1c (Clinic) 5.5 % (4.0-6.0) 04/01/25 14:09 Coding Level of Care Code Est Pt Level 4 (32794) Complex EM visit Add On G2211 Diagnoses Diabetes mellitus with hyperglycemia, with long-term current use of insulin E11.65; Z79.4 Hyperlipidemia LDL goal <70 E78.5 Schizoaffective disorder, bipolar type F25.0 CKD (chronic kidney disease) stage 3, GFR 30-59 ml/min N18.30 Additional Codes PHQ-9 - 11219 - PHQ-9 Billing: Yes ([id number]) MELISA-7 Assessment Billing - MELISA-7 Assessment Tool: MELISA-7 Assessment 66690 ([id number]) Time Spent (min) 22 Assessment & Plan Assessment & Plan (1) Diabetes mellitus with hyperglycemia, with long-term current use of insulin: Code(s): E11.65 - Type 2 diabetes mellitus with hyperglycemia; Z79.4 - 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 Type 2 diabetes mellitus without complications E11.9 HCC 19 The patient's HbA1c has worsened since his last check in September, when it was 5.8%. Current blood glucose levels are around 120-130 mg/dL, which are not acutely uncontrolled. The patient will continue his current medications, including Jardiance and insulin. Follow-up labs will be arranged in 4 months. 2. Chronic kidney disease, unspecified N18.9 The patient has chronic kidney disease with a GFR of 37, which is stable and does not require dialysis. He has associated anemia and parathyroid issues. He will continue to follow up with his clothing patternmaker. Labs will be rechecked in 4 months. 3. Hyperlipidemia, unspecified E78.5 Cotinue statin. LDL goal is less than 70. 4. Bipolar disorder, unspecified F31.9 HCC 59 Follow by psych. Orders: Orders AMB Hemoglobin A1c Today Z13.9 - Encounter for screening, unspecified Complete Blood Count Auto Diff 4 Months D64.9 - Anemia, unspecified Lipid Panel 4 Months E78.5 - Hyperlipidemia, unspecified Microalbumin, Random (w Creat) 4 Months R80.9 - Proteinuria, unspecified Vitamin B12 and Folate 4 Months E53.8 - Deficiency of other specified B group vitamins Vitamin D 25-OH Total 4 Months E55.9 - Vitamin D deficiency, unspecified IRON PROFILE 4 Months D64.9 - Anemia, unspecified Comprehensive [place]. Panel Fast 4 Months E11.65 - Type 2 diabetes mellitus with hyperglycemia, Z79.4 - residential (current) use of insulin Influenza [id number] Immunization Today Z23 - Encounter for immunization
--- OUTSIDE RECORDS SUMMARY | 2025-04-01 16:53 | XMS_ITS | Encounter Summary ---
Author Organization [facility] Address [address] [facility] [address] [place] [address] Phone Care Team Providers Care Supervisor Of Instruction Name Role Phone Xochilt Mckoy MD Primary Care Provider [phone] Encounter Details Date Type Department Care Team ([facility] Contact Info) Description 09/26/2022 Telephone [facility] [address] [facility] [address] [place] [address] Jana Barger Social History Tobacco [...] - 09/26/2022 9:52 AM EDT Maricruz from [facility] pharmacy called to inquire if this PT is still receiving Retacrit. Please call [phone] Option 2 documented in this encounter Plan of Treatment Upcoming Encounters Date Type Department Care Team (Late Contact Info) Description 04/17/2025 4:00 PM EST Office Visit [facility] [address] [place] [address] Dick Flores MD [address] [address] 04/25/2025 Orders Only [facility] [address] [place] [phone] Dick Flores MD [address] [address] Stage 3b chronic kidney disease (HCC); Other proteinuria; Type 2 diabetes mellitus with diabetic nephropathy (HCC) documented as of this encounter Visit Diagnoses Not on filedocumented in this encounter Care Teams Supervisor Of Instruction Relationship Specialty Start Date End Date Xochilt Mckoy MD [address] [place], [place] PCP - General 06/08/20 documented as of this encounter
--- OUTSIDE RECORDS SUMMARY | 2025-04-01 16:53 | XMS_ITS | Clinical Summary ---
Author Organization [facility] Address [address] [place] [address] Phone Care Team Providers Care Block Greaser Name Role Phone Xochilt Mckoy MD Primary Care Provider [phone] Allergies Active Allergy Reactions Criticality Noted Date [...] Refill [facility] [address] [place] [address] Dick Flores MD 01/23/2025 2:00 PM EDT Office Visit [facility] [address] [place] [phone] Dick Flores MD Stage 3b chronic kidney disease (HCC) (Primary Dx); Other proteinuria; Type 2 diabetes mellitus with diabetic nephropathy (HCC) 01/01/2025 Orders Only [facility] [address] [address] Dick Flores MD Stage 3b [...] [facility] [address] [place] [address] Dick Flores MD [address] [address] 04/25/2025 Orders Only [facility] [address] [place] [address] Dick Flores MD [address] [facility] [address] [place] [address] Stage 3b chronic kidney disease [...] Flores MD LAB URINE ORDERABLES Final Result PROSSER See order comments [place] [address] * (ABNORMAL) Albumin, urine, random (01/14/2025 11:28 [...] order comments [place] [address] * (ABNORMAL) Urinalysis with microscopic (01/14/2025 11:28 AM EDT) Color Urine Yellow See orde r comments Appearance Urine Cloudy See order comments pH Urine 5.5 5.0 - 9.0 See order comments Glucose Urine >=1000(A) Negative mg/dL See order comments Blood, Urine Trace(A) Negative See ord er comments Specific [place] Urine 1.020 1.005 - 1.025 See order [...] Edited Result - Final Performing Organization Address [facility] Co de Phone Number [place] See order comments [place] [address] * (ABNORMAL) Creatinine (01/14/2025 10:53 AM EDT) Creatinine Serum 1.88(H) 0.5 - 1.4 mg/dL See order comments eGFR (Calc) 37 See orde r comments Comment: Chronic Kidney Disease: Estimated GFR < 60 mL/min/1.73m2 Severe Kidney Disease: Estimated GFR < 15 mL/min/1.73m2 01/14/2025 10:5 3 AM EDT 01/14/2025 10:53 AM EDT Dick Flores MD LAB BLOOD ORDERABLES Final Result Performing Organization Address [facility] de Phone Number [place] See order comments [place] [address] * (ABNORMAL) PTH, Intact (01/14/2025 10:53 AM EDT) Parathyroid Hormone, Intact 207.9(H) 8.7 - 77.1 pg/mL See order comments 01/14/2025 10:5 3 AM EDT 01/14/2025 10:53 AM EDT us Dick Flores MD LAB HISTORICA [id number] RESULTS Final Result Performing Organization Address [facility] de Phone Number [place] See order comments [place] [address] * (ABNORMAL) Vitamin D 25 Hydroxy (01/14/2025 [...] order comments [place] [address] * (ABNORMAL) CBC and Differential (01/14/2025 10:53 [...] BLOOD ORDERABLES Final Result Performing Organization Address [facility] Co de Phone Number PROSSER See order comments [place] [address] * Uric Acid (01/14/2025 10:53 AM EDT) Uric Acid 6.2 3.4 - 7.0 mg/dL See order comments Blood specimen (specimen) Venous blood / Unknown 01/14/2025 10:53 AM EDT 01/14/2025 10:53 AM EDT us Dick Flores MD LAB BLOOD ORDERABLES Final Result Performing Organization Address [facility] Co de Phone Number PROSSER See order comments [place] [address] * (ABNORMAL) BUN (01/14/2025 10:53 AM EDT) BUN 52(H) 9 - 16 mg/dL See order comments 01/14/2025 10:5 3 AM EDT 01/14/2025 10:53 AM EDT us Dick Flores MD LAB BLOOD ORDERABLES Final Result Performing Organization Address [facility] Phone Number PROSSER See order comments [place] [address] * (ABNORMAL) Phosphorus (01/14/2025 10:53 AM EDT) Phosphorus, Serum 4.7(H) 2.7 - 4.5 mg/dL See order comments Blood specimen (specimen) Venous blood / Unknown 01/14/2025 10:53 AM EDT 01/14/2025 10:53 AM EDT us Dick Flores MD LAB BLOOD ORDERABLES Final Result Performing Organization Address [facility] Phone Number PROSSER See order comments [place] [address] * Magnesium (01/14/2025 10:53 AM EDT) Magnesium 2.1 1.6 - 2.6 mg/dL See order comments Blood specimen (specimen) Venous blood / Unknown 01/14/2025 10:53 AM EDT 01/14/2025 10:53 AM EDT us Dick Flores MD LAB BLOOD ORDERABLES Final Result Performing Organization Address [facility] Phone Number PROSSER See order comments [place] [address] * Calcium (01/14/2025 10:53 AM EDT) Calcium 8.6 8.4 - 10.2 mg/dL See order comments 01/14/2025 10:5 3 AM EDT 01/14/2025 10:53 AM EDT us Dick Flores MD LAB BLOOD ORDERABLES Final Result Performing Organization Address [facility] Co de Phone Number [facility] See order comments [place] [address] * (ABNORMAL) Electrolyte panel (01/14/2025 10:53 AM [...] BLOOD ORDERABLES Final Result Performing Organization Address [facility] de Phone Number [place] See order comments [place] [address] * Hemoglobin A1c (07/09/2019 8:52 AM EST) Hemoglobin A1C 5.4 % PROSSER Comment: Hemoglobin A1C Reference Range Adults: 4.8 [...] average glucose, using the formula of the [id number] Average Glucose study (ADAG), Diabetes Care, Vol.31,#8, 2007 07/09/2019 8:52 AM EST us Rtama Conversion LAB BLOOD ORDERABLES Final Resu lt Performing Organization Address [facility] Co de Phone Number [place] from Last 3 Months or Most Recently Relevant to Health Maintenance Insurance [facility] Medicaid Care Teams Block Greaser Relationship Specialty Start Date End Date Xochilt Mckoy MD [address] [place], [place] PCP - General 06/08/20
--- OUTSIDE RECORDS SUMMARY | 2025-04-01 16:53 | XMS_ITS | Clinical Summary ---
Author Organization [facility] Address [address] [place] [address] Phone Care Team Providers Care Art Education Professor Name Role Phone Xochilt Mckoy MD Primary [...] 09/12/19 24 Active blood-glucose meter,continuous (DEXCOM G6 DRESS SHOE INSPECTOR) MiscIndications: Type 2 diabetes mellitus with diabetic [...] he needs to meet with our physician field assistant to train him and get pump [...] Type Department Care Team Description 03/14/2025 Telephone [facility] [place]ocr[facility] [address] [place] [address] Aaron Courtney DO BROKEN DEXCOM G6 TRANSMITTER 01/29/2025 Telephone [facility] [address] [place] [address] [place] [phone] Gwen Clayton MA Medication Prior Authorization 01/24/2025 Orders Only [facility] End[facility]inology [address] [place] [address] Aaron Courtney DO Type 2 diabetes mellitus with diabetic polyneuropathy, without long-term current use of insulin (Primary Dx) 01/23/2025 Telephone [facility] Endocrinology [address] [place] [address] Aaron Courtney DO Omnipod refill (Omnipod refill request); Medication Prior Authorization 01/20/2025 Telephone [facility] Endocrinology [address] [place] [address] Aaron Courtney DO Ozempic Prior Auth (Ozempic [...] 3:20 PM EST Office Visit [facility] [address] [place] [address] Aaron Courtney DO [address] [place] [address] [email or web address] Health Maintenance Due Date Last Done Comments [...] HEMOGLOBIN A1C 5.9(H) 4.3 - 5.8 % [facility] Blood 10/25/2024 9:16 AM EDT 10/25/2024 9:18 AM EDT us Aaron Courtney DO LAB BLOOD BKR ORDERABLES Final R esult [facility] [address] [place], [place] [phone] from Last 3 Months or Most Recently Relevant to Health Maintenance Insurance [facility] [address] [place] [id number] [facility] [address] [place] [address] [place] [address] [address] [place] [address] [facility] [address] [place] [id number] [address] [place] [phone] [place] [address] [address] [place] [id number] [place] [address] [address] [place] [phone] [place] [address] ACO Care Teams Art Education Professor Relationship Specialty Start Date End Date Xochilt Mckoy MD [address] [place] [address] PCP - General Internal Medicine 03/18/22 Additional Source Comments The information contained in this document represents components of the legal health record. It is not the complete legal health record.[facility]
--- OUTSIDE RECORDS SUMMARY | 2025-04-01 16:53 | XMS_ITS | Clinical Summary ---
Author Organization 175 [facility] Address 175 [place] [address] Phone Care Team Providers Care Inspector Rag Sorting Name Role Phone Xochilt Singh MD Primary Care Provider [phone] Allergies Active Allergy Reactions Criticality Noted Date [...] Date Amputation of toe ([facility] V24) 05/02/2018 Diabetic polyneuropathy asso ciated with type 2 diabetes mellitus ([facility] V24, [facility] V28) 05/02/2018 Status post amputation of toe of left foot ([facility] V24) 05/02/2018 Encounters Date Type Department Care Team Description 01/29/2025 10:00 AM EDT Office Visit Orthopedic Surgery - [place] [address] [facility] 250 [place] [address] Trevor [place] DPM Acquired hammer toe of right foot (Primary Dx); Follow-up exam; Fissure in skin of both feet; Metatarsalgia of both feet; Corns and callosities; Type II diabetes mellitus with peripheral circulatory disorder ([facility] V24, [facility] V28); Diabetic mononeuropathy simplex ([facility] V24, [facility] V28); Dermatophytosis of nail; Pain in toe [...] AM EST Office Visit Orthopedic Surgery - [address] [address] Trevor [place], [address] [address] Health Maintenance Due Date Last [...] Postop changes from fifth ray resection appropriate geographic area intelligence officer-midfoot and forefoot no new radiolucencies noted Right foot 3 views Severe degenerative changes of the hallux hammertoe contractural deformity consistent with osteoarthritis previous amputation second third metatarsal is noted hammertoe contractures noted us Trevor [place] DPM IMG XR PROCEDURES Final R esult from Last 3 Months Insurance [address] [place] [phone] [facility] Care Teams Inspector Rag Sorting Relationship Specialty Start Date End Date Xochilt Singh MD [address] [place] [address] , [address] [facility] Physician Associ D/B/A: [facility] [place] PCP - General Internal Medicine 04/05/21
== END 2025-04-01 14:28 | disposition home or self-care (01) ==
LOC: HO.HMCH 13:45
PROVIDERS: PCP Internal Medicine; Visit Provider Internal Medicine
DX: E11.65 Type 2 diabetes mellitus with hyperglycemia (principal); Z79.4 Long term (current) use of insulin; F25.0 Schizoaffective disorder, bipolar type; N18.30 Chronic kidney disease, stage 3 unspecified; E78.5 Hyperlipidemia, unspecified; Z23 Encounter for immunization

== ENCOUNTER → 2025-04-01 13:44 | Outpatient (BNVA) | payer OTHER, SELFPAY | PROVIDERS: PCP Internal Medicine; Visit Provider Internal Medicine | DX: E11.22 Type 2 diabetes mellitus with diabetic chronic kidney disease (principal); E11.65 Type 2 diabetes mellitus with hyperglycemia; N18.30 Chronic kidney disease, stage 3 unspecified; D63.1 Anemia in chronic kidney disease; E55.9 Vitamin D deficiency, unspecified; K59.00 Constipation, unspecified; E78.5 Hyperlipidemia, unspecified; F25.0 Schizoaffective disorder, bipolar type; Z23 Encounter for immunization; Z79.4 Long term (current) use of insulin; Z79.899 Other long term (current) drug therapy | CPT/HCPCS: 83036; 90471; 90656; 96127; 99212 ==

== ENCOUNTER 2025-04-09 07:19 | Outpatient (REF) | payer OTHER, SELFPAY ==
--- OUTSIDE RECORDS SUMMARY | 2025-04-09 07:22 | XMS_ITS | Clinical Summary ---
Author Organization [facility] Address [address] [place] [address] Phone Care Team Providers Care Waterproof Bag Cutting Machine Operator Name Role Phone Xochilt Mckoy MD Primary Care Provider [phone] Allergies Active Allergy Reactions Criticality Noted Date [...] Refill [facility] [address] [place] [address] Dick Flores MD 01/23/2025 2:00 PM EDT Office Visit [facility] [address] [place] [address] Dick Flores MD Stage 3b chronic kidney disease (HCC) (Primary Dx); Other proteinuria; Type 2 diabetes mellitus with diabetic nephropathy (HCC) from Last 3 Months Family History [...] Visit [facility] [address] [place] [address] Dick Flores MD [address] [phone] 04/25/2025 Orders Only [facility] [address] [place] [address] Dick Flores MD [address] [facility] [address] [place] [address] Stage 3b chronic kidney disease [...] Flores MD LAB URINE ORDERABLES Final Result HOLMQNN See order comments [place] [address] * (ABNORMAL) Albumin, urine, random (01/14/2025 11:28 [...] URINE ORDERABLES Final Result Performing Organization Address [facility] de Phone Number [place] See order comments [place] [address] * (ABNORMAL) Urinalysis with microscopic (01/14/2025 11:28 AM EDT) Color Urine Yellow See orde r comments Appearance Urine Cloudy See order comments pH Urine 5.5 5.0 - 9.0 See order comments Glucose Urine >=1000(A) Negative mg/dL See order comments Blood, Urine Trace(A) Negative See ord er comments Specific [place] Urine 1.020 1.005 - 1.025 See order [...] Edited Result - Final Performing Organization Address [facility] de Phone Number [place] See order comments [place] [address] * (ABNORMAL) Creatinine (01/14/2025 10:53 AM EDT) Creatinine Serum 1.88(H) 0.5 - 1.4 mg/dL See order comments eGFR (Calc) 37 See orde r comments Comment: Chronic Kidney Disease: Estimated GFR < 60 mL/min/1.73m2 Severe Kidney Disease: Estimated GFR < 15 mL/min/1.73m2 01/14/2025 10:5 3 AM EDT 01/14/2025 10:53 AM EDT Dick Flores MD LAB BLOOD ORDERABLES Final Result Performing Organization Address [facility] de Phone Number [place] See order comments [place] [address] * (ABNORMAL) PTH, Intact (01/14/2025 10:53 AM EDT) Parathyroid Hormone, Intact 207.9(H) 8.7 - 77.1 pg/mL See order comments 01/14/2025 10:5 3 AM EDT 01/14/2025 10:53 AM EDT Dick Flores MD LAB HISTORICA [id number] RESULTS Final Result Performing Organization Address [facility] de Phone Number [place] See order comments [place] [address] * (ABNORMAL) Vitamin D 25 Hydroxy (01/14/2025 [...] order comments [place] [address] * (ABNORMAL) CBC and Differential (01/14/2025 10:53 [...] Flores MD LAB BLOOD ORDERABLES Final Result [place] See order comments [place] [address] * Uric Acid (01/14/2025 10:53 AM EDT) Uric Acid 6.2 3.4 - 7.0 mg/dL See order comments Blood specimen (specimen) Venous blood / Unknown 01/14/2025 10:53 AM EDT 01/14/2025 10:53 AM EDT us Dick Flores MD LAB BLOOD ORDERABLES Final Result Performing Organization Address City/[facility]/ZIP Co de Phone Number [place] See order comments [place] [address] * (ABNORMAL) BUN (01/14/2025 10:53 AM EDT) BUN 52(H) 9 - 16 mg/dL See order comments 01/14/2025 10:5 3 AM EDT 01/14/2025 10:53 AM EDT us Dick Flores MD LAB BLOOD ORDERABLES Final Result Performing Organization Address [facility]/ZIP Co de Phone Number [place] See order comments [place] [address] * (ABNORMAL) Phosphorus (01/14/2025 10:53 AM EDT) Phosphorus, Serum 4.7(H) 2.7 - 4.5 mg/dL See order comments Blood specimen (specimen) Venous blood / Unknown 01/14/2025 10:53 AM EDT 01/14/2025 10:53 AM EDT us Dick Flores MD LAB BLOOD ORDERABLES Final Result Performing Organization Address [facility] de Phone Number [place] See order comments [place] [address] * Magnesium (01/14/2025 10:53 AM EDT) Magnesium 2.1 1.6 - 2.6 mg/dL See order comments Blood specimen (specimen) Venous blood / Unknown 01/14/2025 10:53 AM EDT 01/14/2025 10:53 AM EDT us Dick Flores MD LAB BLOOD ORDERABLES Final Result Performing Organization Address [facility] de Phone Number [place] See order comments [place] [address] * Calcium (01/14/2025 10:53 AM EDT) Calcium 8.6 8.4 - 10.2 mg/dL See order comments 01/14/2025 10:5 3 AM EDT 01/14/2025 10:53 AM EDT us Dick Flores MD LAB BLOOD ORDERABLES Final Result Performing Organization Address City/[facility] Co de Phone Number [place] See order comments [place] [address] * (ABNORMAL) Electrolyte panel (01/14/2025 10:53 AM [...] order comments [place] [address] * Hemoglobin A1c (07/09/2019 8:52 AM EST) Hemoglobin A1C 5.4 % [facility] Comment: Hemoglobin A1C Reference Range Adults: 4.8 - 6.0 % Non diabetic: < 6.0 % Goal: < 7.0 % Additional Action Suggested: > 8.0 % Note: Hemoglobin A1c results are invalid for patients with abnormal amounts of HbF. Blood transfusions may impact the HbA1c concentration in the patient sample. Estimated Average Glucose 108 MG/DL [facility] Comment: eAG = Estimated average glucose which is %A1C expressed as average glucose, using the formula of the [id number] Average Glucose study (ADAG), Diabetes Care, Vol.31,#8, 2007 07/09/2019 8:52 AM EST us Rtama Conversion LAB BLOOD ORDERABLES Final Resu lt HOLKAY from Last 3 Months or Most Recently Relevant to Health Maintenance Insurance [address] [place] [id number] [facility] Medicaid Care Teams Waterproof Bag Cutting Machine Operator Relationship Specialty Start Date End Date Xochilt Mckoy MD [address] [place], [place] PCP - General 06/08/20
--- OUTSIDE RECORDS SUMMARY | 2025-04-09 07:22 | XMS_ITS | Clinical Summary ---
Author Organization [facility] Address [address] [facility] [address] [place] [address] Phone Care Team Providers Care Major Account Manager Name Role Phone Xochilt Mckoy MD [...] 09/12/19 24 Active blood-glucose meter,continuous (DEXCOM G6 INSTRUMENT ASSEMBLY SUPERVISOR) MiscIndications: Type 2 diabetes mellitus with diabetic [...] he needs to meet with our physician assistant associate professor to train him and get pump initiated. [...] Type Department Care Team Description 03/14/2025 Telephone [facility] [place] [address] [place] [address] Aaron Courtney DO BROKEN DEXCOM G6 TRANSMITTER 01/29/2025 Telephone [facility] [address] [place] [address] [place] [phone] Gwen Clayton MA Medication Prior Authorization 01/24/2025 Orders Only [facility] [address] [place] [address] Aaron Courtney DO Type 2 diabetes mellitus with diabetic polyneuropathy, without long-term current use of insulin (Primary Dx) 01/23/2025 Telephone [facility] [place] [address] [place] [address] Aaron Courtney DO Omnipod refill (Omnipod refill request); Medication Prior Authorization 01/20/2025 Telephone [facility] [place] [address] [place] [address] Aaron Courtney DO Ozempic Prior Auth (Ozempic [...] PM EST Office Visit [facility] [address] [place] [address] Aaron Courtney DO [address] [place] [address] [email or web address] Health Maintenance Due Date Last Done Comments [...] patient's age to complete this topic IPV VACCINES Aged Out No longer eligi ble [...] HEMOGLOBIN A1C 5.9(H) 4.3 - 5.8 % [facility] Blood 10/25/2024 9:16 AM EDT 10/25/2024 9:18 AM EDT us Aaron Courtney DO LAB BLOOD BKR ORDERABLES Final R esult [facility] [address] [place] [address] from Last 3 Months or Most Recently Relevant to Health Maintenance Insurance [facility] [address] [address] [place] [address] [facility] [address] [place] [address] [address] [place] [address] [address] [place] [address] [facility] [address] [place] [address] [address] [place] [address] [facility] [address] [place] [address] [facility] [address] [place] [id number] [facility] Care Teams Major Account Manager Relationship Specialty Start Date End Date Xochilt Mckoy MD [address] [place] [address] PCP - General Internal Medicine 03/18/22 Additional Source Comments The information contained in this document represents components of the legal health record. It is not the complete legal health record.[facility]
--- OUTSIDE RECORDS SUMMARY | 2025-04-09 07:22 | XMS_ITS | Clinical Summary ---
Author Organization 175 [facility] Address [address] [place] [address] Phone Care Team Providers Care Dairy Farm Manager Name Role Phone Xochilt Singh MD Primary Care Provider [phone] Allergies Active Allergy Reactions Criticality Noted Date [...] Noted Date Diagnosed Date Amputation of toe ([facility] V24) 05/02/2018 Diabetic polyneuropathy asso ciated with type 2 diabetes mellitus ([facility] V24, [facility] V28) 05/02/2018 Status post amputation of toe of left foot ([facility] V24) 05/02/2018 Encounters Date Type Department Care Team Description 01/29/2025 10:00 AM EDT Office Visit Orthopedic Surgery - [place] 250 175 [facility] 250 [place] [address] Trevor [place] DPM Acquired hammer toe of right foot (Primary Dx); Follow-up exam; Fissure in skin of both feet; Metatarsalgia of both feet; Corns and callosities; Type II diabetes mellitus with peripheral circulatory disorder ([facility] V24, [facility] V28); Diabetic mononeuropathy simplex ([facility] V24, [facility] V28); Dermatophytosis of nail; Pain in toe [...] AM EST Office Visit Orthopedic Surgery - [place] [address] [address] Trevor [place], DPM [address] [address] Health Maintenance Due Date Last Done Comments [...] Postop changes from fifth ray resection appropriate computer game designer-midfoot and forefoot no new radiolucencies noted Right foot 3 views Severe degenerative changes of the hallux hammertoe contractural deformity consistent with osteoarthritis previous amputation second third metatarsal is noted hammertoe contractures noted us Trevor [place] DPM IMG XR PROCEDURES Final R esult from Last 3 Months Insurance [address] [place] [address] [place] [phone] [facility] Care Teams Dairy Farm Manager Relationship Specialty Start Date End Date Xochilt Singh MD [address] [place] [address] , [address] [facility] Physician Associ D/B/A: [facility] [place] PCP - General Internal Medicine 04/05/21
--- OUTSIDE RECORDS SUMMARY | 2025-04-09 07:22 | XMS_ITS | Encounter Summary ---
Author Organization [facility] Address [address] [facility] [address] [place] [address] Phone Care Team Providers Care City Superintendent Name Role Phone Xochilt Mckoy MD Primary Care Provider [phone] Encounter Details Date Type Department Care Team ([facility] Contact Info) Description 09/26/2022 Telephone [facility] [address] [facility] [address] [place] [address] Jana Barger Social History Tobacco [...] PT is still receiving Retacrit. Please call [phone] Option 2 documented in this encounter Plan of Treatment Upcoming Encounters Date Type Department Care Team (Late Contact Info) Description 04/17/2025 4:00 PM EST Office Visit [facility] [address] [place] [address] Dick Flores MD [address] [address] 04/25/2025 Orders Only [facility] [address] [place] [address] Dick Flores MD [address] [address] Stage 3b chronic kidney disease (HCC); Other proteinuria; Type 2 diabetes mellitus with diabetic nephropathy (HCC) documented as of this encounter Visit Diagnoses Not on filedocumented in this encounter Care Teams City Superintendent Relationship Specialty Start Date End Date Xochilt Mckoy MD [address] [place], [place] PCP - General 06/08/20 documented as of this encounter
[2025-04-14 09:23] LABS: eGFR (Cystatin C) 23
== END 2025-04-09 07:20 | disposition home or self-care (01) ==
LOC: HO.LAB 07:19
PROVIDERS: PCP Internal Medicine; Visit Provider Internal Medicine
DX: E11.22 Type 2 diabetes mellitus with diabetic chronic kidney disease (principal); N18.32 Chronic kidney disease, stage 3b; R80.8 Other proteinuria
CPT/HCPCS: 36415; 82610

== ENCOUNTER 2025-04-15 10:50 | Outpatient (AMB) | payer OTHER, SELFPAY ==
[2025-04-15 11:07] VITALS: BP 102/58; PULSE 79; TEMP 36.3; O2SAT 97; BMI 33.3
--- NOTE | 2025-04-15 11:07 | MHC.PC.OV ---
Vital Signs 04/15/25 11:07 Height 5 ft 5 in Weight 200 lb BMI 33.3 BP 102/58 L Blood Pressure Location Lt brachial Position Sitting Pulse 79 Pulse Source Pulse Oximeter Temp 97.3 F Temp Source Temporal Artery Scan Pulse Oximetry (%) 97 Oxygen Delivery Method Room Air Intake Visit Reasons: Ear Pain Accompanied by: son in law Allergies Sulfa (Sulfonamide Antibiotics) (SULFA (SULFONAMIDE ANTIBIOTICS)) Allergy (Intermediate, Verified 04/15/25 11:10) hives Medication List - Last Reconciled 04/15/25 by Cameron Martell MD acetaminophen 650 mg (2 x 325 mg) PO BID 30 days atorvastatin 10 mg PO DAILY blood pressure test kit-medium As directed blood sugar diagnostic (FreeStyle Test strips) Use 4 test strip once a day blood-glucose meter (FreeStyle Lite Meter kit) As directed cholecalciferol (vitamin D3) PO [compression stockings knee high As directed] diclofenac sodium 1% (Voltaren Arthritis Pain) 2 grams topical QID docusate sodium 100 mg PO BID PRN dulaglutide (Trulicity) mg subcut QWEEK empagliflozin (Jardiance) 25 mg PO DAILY epinephrine 0.3 mg IM Q10M PRN ergocalciferol (vitamin D2) (Vitamin D2) 1,250 mcg PO QWEEK 90 days insulin lispro subcut insulin fire hazard inspector cart,aut,G6/7,cntr (Omnipod 5 G6-G7 Intro Kit(Gen 5) subcutaneous cartridge and controller) As directed mirtazapine 30 mg PO BEDTIME 90 days pen needle, diabetic (BD Ultra-Fine Short Pen Needle) As directed [raised toilet seat As directed] tadalafil 5 mg PO DAILY 90 days [tub seat As directed] walker (Ultra-Light Rollator misc) As directed [wheelchair electric As directed] [wrist splint As directed] Tobacco use date assessed: 04/15/25 Dental Screening Dental Screen Date: 04/15/25 Did you have a dental visit in the last 12 months?: Yes Did you have a dental problem in the last 6 months where you did not have access to dental care?: No Was dental information given to patient?: Patient has dentist HPI HPI Comments History of Present Illness Details The patient is a 59-year-old male with PMH of HLD, HTN, vit D deficiency, constipation, insomnia, DM, ED, presenting with ear pain and knee pain. He has experienced ear pain for four days and reports some relief this morning after using hot water. For nearly a week, the patient has had pain in his leg, specifically in the toe area and knee, accompanied by swelling between the toes. The knee pain, specifically, started on Monday. He reports no history of injury to his knee. Past medical history is significant for old foot surgeries, including a toe amputation. The patient also has a history of kidney problems. [facility] Medical History penitentiary (current) use of insulin Diabetic nephropathy associated with type 2 diabetes mellitus Mood disorder Diabetes mellitus Bipolar disorder with psychotic features Hypertension Osteomyelitis Bipolar 1 disorder Difficulty walking Neuromuscular dysfunction of bladder PVD (peripheral vascular disease) Benign prostatic hyperplasia Hyperlipidemia Restrictive lung disease Bacteremia Foot ulcer Headache Patellofemoral arthritis of left knee Microalbuminuria Left knee pain Foot osteomyelitis, right Anemia in chronic kidney disease Right foot pain PAD (peripheral artery disease) Anemia CKD (chronic kidney disease) stage 3, GFR 30-59 ml/min CKD stage G3b/A2, GFR 30-44 and albumin creatinine ratio 30-299 mg/g Osteomyelitis Morbid obesity 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 Brother No problems noted. Son No problems noted. Daughter In good health Maternal Grandmother DM (diabetes mellitus) Stroke Social History Household Members: None Housing: Unknown / Unable to assess Alcohol intake: never Patient Tobacco Use Status: Never used Tobacco e-Cigarette/Vaping Use: Never Used Second Hand Smoke Exposure: No Substance Use Type: Marijuana Advance Directives Date on File: 09/19/22 service: No Current occupational status: disabled Sexual orientation: Did not discuss. Cognitive needs: No Hearing needs: No Vision needs: Yes Questionnaire PHQ-9 Over the last 2 weeks, how often have you been bothered by any of the following problems? 1. Little interest or pleasure in doing things: not at all 2. Feeling down, depressed, or hopeless: not at all 3. Trouble falling or staying asleep, or sleeping too much: not at all 4. Feeling tired or having little energy: not at all 5. Poor appetite or overeating: not at all 6. Feeling bad about yourself - or that you are a failure or have let yourself or your family down: not at all 7. Trouble concentrating on things, such as reading the newspaper or watching television: not at all 8. Moving or speaking so slowly that other people could have noticed. Or the opposite - being so fidgety or restless that you have been moving around a lot more than usual: not at all 9. Thoughts that you would be better off or of hurting yourself in some way: not at all Total score: 0 Depression Screening Interpretation: Negative Depression Screening Done: Yes Source: Developed by Drs. Glenn Pritchard, Vanessa Hernandez, Jules Sims and colleagues, with an educational darlin from [employer]. Thrive Questionnaire Date Thrive assessed: 11/25/24 I am a: Patient What is your living situation today?: I have a steady place to live Within the past 12 months, did the food you bought not last and you didn't have the money to get more?: I choose not to answer this question Within the past 12 months, did you worry whether your food would run out before you got money to buy more?: I choose not to answer this question Do you have trouble paying for medicines?: No Do you have trouble getting transportation to medical appointments?: No Do you have trouble paying your heating and electricity bill?: No Do you have trouble taking care of your child, family member or friend?: I choose not to answer this question Do you have trouble with day-to-day activities such as bathing, preparing meals, shopping, managing finances, etc.?: No Are you currently unemployed and looking for a job?: I choose not to answer this question Are you interested in more education?: I choose not to answer this question Please select the resources that you would like help with: None Currently or been in a relationship where the following occur: I choose not to answer THRIVE Score: 0 AUDIT C Alcohol Use Questionnaire (AUDIT-C) 1. How often do you have a drink containing alcohol?: Never 3. How often do you have six or more drinks on one occasion?: Never Total Score: 0 MELISA-7 AMB Questionnaire MELISA-7 Date MELISA - 7 assessed: 07/03/24 Feeling nervous, anxious, or on edge: 0 = Not at all Not being able to stop or control worryin = Not at all Worrying too much about different things: 0 = Not at all Trouble relaxin = Not at all Being so restless that it is hard to sit still: 0 = Not at all Becoming easily annoyed or irritable: 0 = Not at all Feeling afraid as if something awful might happen: 0 = Not at all Total MELISA-7 score (0-4 normal; 5-9 mild; 10-14 moderate; 15-21 severe): 0 Source: Developed by Drs. Glenn Pritchard, Vanessa Hernandez, Jules Sims and colleagues, with an educational darlin from [employer]. Review of Systems Const Details: As per HPI. Physical exam (Primary Care) Vital Signs: Last Vital Signs Temp 97.3 F 04/15/25 11:07 Pulse 79 04/15/25 11:07 BP 102/58 L 04/15/25 11:07 Pulse Ox 97 04/15/25 11:07 Oxygen Delivery Method Room Air 04/15/25 11:07 BMI result Body Mass Index 33.3 Tobacco/Smoking Status: Tobacco use Status Tobacco use date assessed 04/15/25 04/15/25 11:12 Patient Tobacco Use Status Never used Tobacco 04/15/25 11:12 e-Cigarette/Vaping Use Never Used 04/15/25 11:12 PHQ-9: PHQ-9 Score PHQ-9: Total score 0 04/15/25 11:12 Depression Screening Interpretation: Negative Thrive Assessment: Date of Thrive Assessment Date Thrive assessed 11/25/24 04/15/25 11:12 Currently or been in a relationship where the following occur: I choose not to answer Const Other: Pertinent findings are in BOLD GENERAL APPEARANCE NAD, activity normal for age, well developed/ well nourished, no cyanosis, pallor, or diaphoresis. EYES lids/conjunctiva normal. EARS/NOSE/THROAT Mucous membranes moist, nares normal, lips/teeth normal uvula midline without oral pharyngeal erythema, exudate or swelling TMs normal bilaterally. No lymphangitis/lymphedema. HEAD/NECK normocephalic atraumatic, no facial trauma, neck is supple. RESPIRATORY respiratory effort normal, speaks in full sentences, no tripod position, no accessory muscle use. Lungs clear to auscultation without rhonchi, wheezes, rales CARDIAC Regular rate and rhythm, no edema. ABDOMINAL Soft, ND/NT. No evidence of fluid wave. No pulsatile masses on exam, rebound tenderness, Elena sign or pain over Mcburney's point. MUSCLES/EXTREMITIES No abnormal range of motion, no swelling. Bunion on large toe of right foot. Knee tender to palpation in the medial bursae area, no signs of infection or inflamation. SKIN Warm, pink and dry. No rashes, dermatoses, petechiae or lesions. NEUROLOGICAL Speech is clear and appropriate. Normal level of consciousness. Gait and coordination are normal. 5/5 strength in all extremities. PSYCH Normal mood and affect. Judgement/competence is appropriate Coding Level of Care Code Est Pt Level 4 (99007) Diagnoses Acute non-infective otitis externa of right ear, unspecified type H60.501 Otitis externa type: noninfectious Noninfectious otitis externa type: unspecified noninfectious type Chronicity: acute Laterality: right Right foot pain M79.671 Acute pain of right knee M25.561 Chronicity: acute Time Spent (min) 30 Assessment & Plan Assessment & Plan (1) Otitis externa: Code(s): H60.90 - Unspecified otitis externa, unspecified ear Category: Medical Qualifiers: Otitis externa type: noninfectious Noninfectious otitis externa type: unspecified noninfectious type Chronicity: acute Laterality: right Qualified Code(s): H60.501 - Unspecified acute noninfective otitis externa, right ear Plan: - The patient presents with a four-day history of right ear pain, suggestive of otitis externa. - Prescribed antibiotic eardrops (cipro) for the right ear, to be administered as four drops twice daily for seven days. (2) Right foot pain: Code(s): M79.671 - Pain in right foot Category: Medical Plan: - The patient was advised to follow up with his annual giving manager on May 01 for his ongoing foot issues. (3) Right knee pain: Code(s): M25.561 - Pain in right knee Category: Medical Qualifiers: Chronicity: acute Qualified Code(s): M25.561 - Pain in right knee Plan: - The patient complains of knee pain since Monday. - Due to a history of kidney problems, oral ibuprofen is contraindicated. - Recommended conservative management with rest, ice, and a prescribed topical analgesic cream to be used as needed. - Advised to return in two weeks if the knee pain does not improve. Plan I discussed the management of the patient's right ear pain and prescribed antibiotic eardrops. For his knee pain, I explained that due to his history of kidney problems, he should not take ibuprofen. Instead, I recommended rest, ice, and a topical cream, advising him to return in two weeks if there is no improvement. We reviewed his medication request for insomnia and I refilled his Mirtazapine prescription, instructing him to contact the clinic if this is incorrect. I also confirmed he should keep his upcoming podiatry appointment and his scheduled follow-up with Dr. Whitley in July. Medications: New diclofenac sodium 1% (Voltaren Arthritis Pain) apply to single elbow, wrist or hand; for hand includes palm/fingers/back of hand 2 grams topical QID 50 grams 0RF ciprofloxacin-dexamethasone 0.3-0.1 % 4 drps otic (ears) BID 7.5 mL 0RF 7 days Refilled mirtazapine 30 mg PO BEDTIME 90 tabs 0RF 90 days
== END 2025-04-15 11:31 | disposition home or self-care (01) ==
LOC: HO.HMCH 10:51
PROVIDERS: PCP Internal Medicine; Visit Provider Internal Medicine
DX: H60.501 Unspecified acute noninfective otitis externa, right ear (principal); M79.671 Pain in right foot; M25.561 Pain in right knee

== ENCOUNTER → 2025-04-15 10:50 | Outpatient (BNVA) | payer OTHER, SELFPAY | PROVIDERS: PCP Internal Medicine; Visit Provider Internal Medicine | DX: H60.501 Unspecified acute noninfective otitis externa, right ear (principal); M79.671 Pain in right foot; M25.561 Pain in right knee | CPT/HCPCS: 99212 ==

== ENCOUNTER 2025-04-28 15:51 | Outpatient (AMB) | payer OTHER, SELFPAY ==
[2025-04-28 16:01] VITALS: BP 106/52; PULSE 87; RESP 18; O2SAT 96; BMI 33.0
--- NOTE | 2025-04-28 16:01 | MHC.PC.OV ---
Vital Signs 04/28/25 16:01 Height 5 ft 5 in Weight 198 lb 2 oz BMI 33.0 BP 106/52 L Blood Pressure Location Rt brachial Position Sitting Respiration 18 Pulse 87 Pulse Source Pulse Oximeter Temp Source Temporal Artery Scan Pulse Oximetry (%) 96 Oxygen Delivery Method Room Air Intake Visit Reasons: Pain on right knee Notching Press Operator Required: No Accompanied by: Self / Same As Patient Allergies Sulfa (Sulfonamide Antibiotics) (SULFA (SULFONAMIDE ANTIBIOTICS)) Allergy (Intermediate, Verified 04/28/25 16:02) hives Medication List - Last Reconciled 04/28/25 by Cameron Martell MD acetaminophen 650 mg (2 x 325 mg) PO BID 30 days atorvastatin 10 mg PO DAILY blood pressure test kit-medium As directed blood sugar diagnostic (FreeStyle Test strips) Use 4 test strip once a day blood-glucose meter (FreeStyle Lite Meter kit) As directed cholecalciferol (vitamin D3) PO ciprofloxacin-dexamethasone 0.3-0.1 % 4 drps otic (ears) BID 7 days [compression stockings knee high As directed] diclofenac sodium 1% (Voltaren Arthritis Pain) 2 grams topical QID docusate sodium 100 mg PO BID PRN dulaglutide (Trulicity) mg subcut QWEEK empagliflozin (Jardiance) 25 mg PO DAILY epinephrine 0.3 mg IM Q10M PRN ergocalciferol (vitamin D2) (Vitamin D2) 1,250 mcg PO QWEEK 90 days insulin lispro subcut insulin real estate sales manager cart,aut,G6/7,cntr (Omnipod 5 G6-G7 Intro Kit(Gen 5) subcutaneous cartridge and controller) As directed mirtazapine 30 mg PO BEDTIME 90 days pen needle, diabetic (BD Ultra-Fine Short Pen Needle) As directed [raised toilet seat As directed] tadalafil 5 mg PO DAILY 90 days [tub seat As directed] walker (Ultra-Light Rollator misc) As directed [wheelchair electric As directed] [wrist splint As directed] Tobacco use date assessed: 04/28/25 Dental Screening Dental Screen Date: 04/28/25 Did you have a dental visit in the last 12 months?: Yes Did you have a dental problem in the last 6 months where you did not have access to dental care?: No Was dental information given to patient?: Patient has dentist HPI HPI Comments History of Present Illness Details The patient is a 60 year old individual presenting with intense right knee pain. The patient reports the pain is located in the back of the knee and describes it as unbearable at times. The pain is exacerbated by stretching. The patient was seen in our clinic in 04/15/2025 and he was treated conservatively with voltaren gel, ice, and rest, none of which have provided relief. Due to a history of kidney problems, oral ibuprofen was contraindicated. The patient has tried The patient takes acetaminophen for pain but not ibuprofen. 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 Diabetic nephropathy associated with type 2 diabetes mellitus Mood disorder Diabetes mellitus Bipolar disorder with psychotic features Hypertension Osteomyelitis Bipolar 1 disorder Difficulty walking Neuromuscular dysfunction of bladder PVD (peripheral vascular disease) Benign prostatic hyperplasia Hyperlipidemia Restrictive lung disease Bacteremia Foot ulcer Headache Patellofemoral arthritis of left knee Microalbuminuria Left knee pain Foot osteomyelitis, right Anemia in chronic kidney disease Right foot pain PAD (peripheral artery disease) Anemia CKD (chronic kidney disease) stage 3, GFR 30-59 ml/min CKD stage G3b/A2, GFR 30-44 and albumin creatinine ratio 30-299 mg/g Osteomyelitis Morbid obesity 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 deficiency [id number] syndrome NEEMA on CPAP Vitamin D deficiency Moderate non-proliferative diabetic retinopathy Diabetic polyneuropathy associated with type 2 diabetes mellitus Dyslipidemia CKD (chronic kidney disease) Diabetes type 2, uncontrolled Surgical History History of eye surgery S/P tooth extraction 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 Hx laparoscopic cholecystectomy Status post amputation of toe S/P cataract surgery S/P debridement History of tonsillectomy and adenoidectomy Family History Father Cerebral aneurysm CVD (cardiovascular disease) Stroke Mother DM (diabetes mellitus) Stroke Brother No problems noted. Brother No problems noted. Son No problems noted. Daughter In good health Maternal Grandmother DM (diabetes mellitus) Stroke Social History Household Members: None Housing: Unknown / Unable to assess Alcohol intake: never Patient Tobacco Use Status: Never used Tobacco e-Cigarette/Vaping Use: Never Used Second Hand Smoke Exposure: No Substance Use Type: Marijuana Advance Directives Date on File: 09/19/22 service: No Current occupational status: disabled Sexual orientation: Did not discuss. Cognitive needs: No Hearing needs: No Vision needs: Yes Questionnaire Thrive Questionnaire Date Thrive assessed: 04/28/25 I am a: Patient What is your living situation today?: I have a steady place to live Within the past 12 months, did the food you bought not last and you didn't have the money to get more?: I choose not to answer this question Within the past 12 months, did you worry whether your food would run out before you got money to buy more?: I choose not to answer this question Do you have trouble paying for medicines?: No Do you have trouble getting transportation to medical appointments?: No Do you have trouble paying your heating and electricity bill?: No Do you have trouble taking care of your child, family member or friend?: I choose not to answer this question Do you have trouble with day-to-day activities such as bathing, preparing meals, shopping, managing finances, etc.?: No Are you currently unemployed and looking for a job?: I choose not to answer this question Are you interested in more education?: I choose not to answer this question Please select the resources that you would like help with: None Currently or been in a relationship where the following occur: I choose not to answer THRIVE Score: 0 MELISA-7 AMB Questionnaire MELISA-7 Date MELISA - 7 assessed: 07/03/24 Source: Developed by Drs. Glenn Pritchard, Vanessa Hernandez, Jules Sims and colleagues, with an educational darlin from [employer]. Physical exam (Primary Care) Vital Signs: Last Vital Signs Pulse 87 04/28/25 16:01 Resp 18 04/28/25 16:01 BP 106/52 L 04/28/25 16:01 Pulse Ox 96 04/28/25 16:01 Oxygen Delivery Method Room Air 04/28/25 16:01 BMI result Body Mass Index 33.0 Tobacco/Smoking Status: Tobacco use Status Tobacco use date assessed 04/28/25 04/28/25 16:09 Patient Tobacco Use Status Never used Tobacco 04/28/25 16:09 e-Cigarette/Vaping Use Never Used 04/28/25 16:09 Thrive Assessment: Date of Thrive Assessment Date Thrive assessed 04/28/25 04/28/25 16:09 Currently or been in a relationship where the following occur: I choose not to answer Const Other: Pertinent findings are in BOLD GENERAL APPEARANCE NAD, activity normal for age, well developed/ well nourished, no cyanosis, pallor, or diaphoresis. EYES lids/conjunctiva normal. EARS/NOSE/THROAT Mucous membranes moist, nares normal, lips/teeth normal uvula midline without oral pharyngeal erythema, exudate or swelling TMs normal bilaterally. No lymphangitis/lymphedema. HEAD/NECK normocephalic atraumatic, no facial trauma, neck is supple. RESPIRATORY respiratory effort normal, speaks in full sentences, no tripod position, no accessory muscle use. Lungs clear to auscultation without rhonchi, wheezes, rales CARDIAC Regular rate and rhythm, no edema. ABDOMINAL Soft, ND/NT. No evidence of fluid wave. No pulsatile masses on exam, rebound tenderness, Elena sign or pain over Mcburney's point. MUSCLES/EXTREMITIES No abnormal range of motion, no swelling. Medial bursae of right knee tender to palpation. Lackman, anterior drawer, posterior drawer negative. SKIN Warm, pink and dry. No rashes, dermatoses, petechiae or lesions. NEUROLOGICAL Speech is clear and appropriate. Normal level of consciousness. Gait and coordination are normal. 5/5 strength in all extremities. PSYCH Normal mood and affect. Judgement/competence is appropriate Coding Level of Care Code Est Pt Level 3 (40743) Diagnoses Pes anserinus bursitis of right knee M70.51 Bursitis location: knee Knee bursitis location: pes anserinus bursitis Laterality: right Time Spent (min) 20 Assessment & Plan Assessment & Plan (1) Bursitis: Code(s): M71.9 - Bursopathy, unspecified Category: Medical Qualifiers: Bursitis location: knee Knee bursitis location: pes anserinus bursitis Laterality: right Qualified Code(s): M70.51 - Other bursitis of knee, right knee Plan: - The patient's presentation with intense posterior knee pain, which has been unresponsive to conservative care, and physical exam findings ruling out significant ligamentous or meniscal tears, are most consistent with bursitis. - A trial of antibiotics, specifically Augmentin, will be initiated for two weeks to address potential infectious or inflammatory causes. - An X-ray of the right knee will be obtained today to rule out osseous pathology. - If the condition does not improve with antibiotics, further imaging such as an MRI and a referral to an orthopedic surgeon for a possible injection will be considered. - A follow-up visit is scheduled in two weeks to reassess the patient's condition. Plan I discussed with the patient that my primary suspicion is bursitis, an inflammation of a fluid-filled sac near the knee, as the physical exam did not indicate a meniscal or ligamentous tear. We will proceed with a course of Augmentin for two weeks and an X-ray of the right knee today. I explained that if these measures do not resolve the symptoms, the next steps would involve further imaging, such as an MRI, and a referral to an orthopedic surgeon for consideration of other treatments like an injection. A follow-up appointment was scheduled in two weeks to evaluate the response to treatment. Orders: Orders XR knee RT 2V Today M71.9 - Bursopathy, unspecified Medications: New amoxicillin-pot clavulanate 875-125 mg 1 tab PO BID 28 tabs 0RF
--- OUTSIDE RECORDS SUMMARY | 2025-04-28 18:34 | XMS_ITS | Encounter Summary ---
Author Organization [facility] Address [address] [place] [address] Phone Care Team Providers Care Respiratory Therapy Instructor Name Role Phone Xochilt Mckoy MD Primary Care Provider [phone] Encounter Details Date Type Department Care Team (Late Contact Info) Description 09/26/2022 Telephone [facility] [address] [place] [address] Jana Barger Social History Tobacco [...] - 09/26/2022 9:52 AM EDT Maricruz from [facility] pharmacy called to inquire if this PT is still receiving Retacrit. Please call [phone] Option 2 documented in this encounter Plan of Treatment Upcoming Encounters Date Type Department Care Team (Latest Contact Info) Description 05/17/2025 Orders Only [facility] [address] [place] [address] Dick Flores MD [address] [address] Stage 3b chronic kidney disease (HCC); Other proteinuria; Secondary hyperparathyroidism of renal origin (HCC) 07/10/2025 2:45 PM EST Office Visit [facility] [address] [place] [address] Dick Flores MD [address] [address] documented as of this encounter Visit Diagnoses Not on filedocumented in this encounter Care Teams Respiratory Therapy Instructor Relationship Specialty Start Date End Date Xochilt Mckoy MD [address] [place], [place] PCP - General 06/08/20 documented as of this encounter
--- OUTSIDE RECORDS SUMMARY | 2025-04-28 18:34 | XMS_ITS | Clinical Summary ---
Author Organization [facility] Address [address] [facility] [address] [place] [address] Phone Care Team Providers Care Legal Officer Name Role Phone Xochilt Mckoy MD Primary Care Provid er Allergies Active Allergy Reactions Criticality Noted Date Comments Sulfa (Sulfonamide Antibiotics) 06/29 Medications traZODone (DESYREL) 50 MG tablet Take 50 mg by mouth nightly at bedtime. at bedtime. Active finasteride (PROSCAR) 5 mg tablet Take 5 mg by mouth daily. Active doxazosin (CARDURA) 8 MG tablet Take 8 mg by mouth nightly at bedtime. at bedtime. Active acetaminophen (TYLENOL) 500 MG tablet Active bisacodyl (DULCOLAX) 5 mg Tab tablet Take 5 mg by mouth daily. Active FREESTYLE LITE Strp stripsIndicatio ns:Type 2 diabetes mellitus with diabetic polyneuropathy, without long-term current use of insulin 1 each by Miscellaneous route 3 (three) times a day before meals. 300 strip 3 Active epoetin bryce-epbx (RETACRIT) 40,000 unit/mL injection INJECT UP TO 40,000 UNITS UNDER THE SKIN ONCE EVERY 14 DAYS Active tamsulosin (FLOMAX) 0.4 mg Cap Take 0.4 mg by mouth nightly at bedtime. Active acidophilus-pec tin, citrus 25 million cell -100 mg Tab tablet Take 1 tablet by mouth 2 (two) times a day. Active mirtazapine (REMERON) 15 MG tablet Take 15 mg by mouth nightly at bedtime. at bedtime. Active STOOL SOFTENER 100 mg capsule Take 100 mg by mouth 2 (two) times a day as needed. Active FEROSUL 325 mg (65 mg iron) tablet Take 1 tablet by mouth every morning. Active blood-glucose meter,continuou s (DEXCOM G6 RESIDENTIAL FEE APPRAISER) MiscIndications :Type 2 diabetes mellitus with diabetic polyneuropathy, without long-term current use of insulin,Type 2 diabetes mellitus with stage 3a chronic kidney disease, without long-term current use of insulin by Miscellaneous route as needed. 1 each Active insulin pump cart,automated, BT (OMNIPOD 5 G6 PODS, GEN 5,) CrtgIndications :Type 2 diabetes mellitus with diabetic polyneuropathy, without long-term current use of insulin,Type 2 diabetes mellitus with stage 3a chronic kidney disease, without long-term current use of insulin Inject 1 kit under the skin every 3 (three) days. 30 each Active insulin pump cart,auto,BT-cn tr (OMNIPOD 5 G6 INTRO KIT, GEN 5,) CrtgIndications :Type 2 diabetes mellitus with diabetic polyneuropathy, without long-term current use of insulin,Type 2 diabetes mellitus with stage 3a chronic kidney disease, without long-term current use of insulin Inject 1 kit under the skin daily. 1 each Active lisinopril (PRINIVIL,ZESTR IL) 5 MG tablet Take 5 mg by mouth. Active insulin syringe-needle U-100 (SURE COMFORT INS. SYR. U-100) 0.5 mL 29 gauge x 05/30 SyrgIndications :Type 2 diabetes mellitus with diabetic polyneuropathy, without long-term current use of insulin,Type 2 diabetes mellitus with stage 3a chronic kidney disease, without long-term current use of insulin USE DIRECTED WITH INSULIN FIVE TIMES DAILY 100 each 1 Active tadalafiL (CIALIS) 5 MG tablet TAKE 1 TABLET BY MOUTH DAILY FOR SEXUAL ACTIVITY Active empagliflozin (JARDIANCE) 25 mg tabletIndicatio ns:Type 2 diabetes mellitus with diabetic polyneuropathy, without long-term current use of insulin,Type 2 diabetes mellitus with stage 3a chronic kidney disease, without long-term current use of insulin Take 1 tablet (25 mg total) by mouth daily. 90 tablet 1 025 2025 Active insulin lispro (ADMELOG, HUMALOG) 100 unit/mL injection vialIndications :Type 2 diabetes mellitus with diabetic polyneuropathy, without long-term current use of insulin,Type 2 diabetes mellitus with stage 3a chronic kidney disease, without long-term current use of insulin Use up to 90 units daily via OmniPod pump 80 mL 1 025 Active atorvastatin (LIPITOR) 10 MG tabletIndicatio ns:Hyperlipidem ia LDL goal <70 Take 1 tablet (10 mg total) by mouth daily. 90 tablet 1 025 Active OMNIPOD 5 G6-G7 PODS, GEN 5, CrtgIndications :Type 2 diabetes mellitus with diabetic polyneuropathy, without long-term current use of insulin,Type 2 diabetes mellitus with stage 3a chronic kidney disease, without long-term current use of insulin Inject 1 each under the skin every other day. 45 each 3 025 Active dulaglutide (TRULICITY) 1.5 mg/0.5 mL subcutaneous injectionIndica tions:Type 2 diabetes mellitus with diabetic polyneuropathy, without long-term current use of insulin Inject 0.5 mL (1.5 mg total) under the skin every 7 days. 6 mL 1 025 Active DEXCOM G6 TRANSMITTER DeviIndications :Type 2 diabetes mellitus with diabetic polyneuropathy, without long-term current use of insulin,Type 2 diabetes mellitus with stage 3a chronic kidney disease, without long-term current use of insulin 1 kit by Miscellaneous route every 3 (three) months. 1 each 3 025 Active DEXCOM G6 SENSOR DeviIndications :Type 2 diabetes mellitus with diabetic polyneuropathy, without long-term current use of insulin,Type 2 diabetes mellitus with stage 3a chronic kidney disease, without long-term current use of insulin USE DIRECTED EVERY 10 DAYS 9 each 3 025 Active DEXCOM G6 SENSOR DeviIndications :Type 2 diabetes mellitus with diabetic polyneuropathy, without long-term current use of insulin,Type 2 diabetes mellitus with stage 3a chronic kidney disease, without long-term current use of insulin 1 kit by Miscellaneous route Every 10 Days. 9 each 3 024 2024 Discontinued Active Problems Problem Noted [...] he needs to meet with our physician language assistant to train him and get pump [...] Encounters Date Type Department Care Team Description 04/22/2025 Refill [facility] [address] [place] [address] Aaron Courtney DO Medication Refill 03/14/2025 Telephone [facility] [address] [place] [address] Aaron Courtney DO BROKEN DEXCOM G6 TRANSMITTER 01/29/2025 Telephone [facility] [address] [place] [address] [place] [address] Gwen Clayton MA Medication Prior Authorization from Last 3 Months Family History Medical [...] 3:20 PM EST Office Visit [facility] [address] [place] [address] Aaron Courtney DO [address] [place] [address] [email or web address] Health Maintenance Due Date Last Done Comments [...] VACCINE (#1) 2024 COVID-19 VACCINE (1 - 2024- season) 2025 HEMOGLOBIN A1C 04/27/2025 10/25/2024, 05/31, [...] HEMOGLOBIN A1C 5.9(H) 4.3 - 5.8 % [facility] Blood 10/25/2024 9:16 AM EDT 10/25/2024 9:18 AM EDT us Aaron Courtney DO LAB BLOOD BKR ORDERABLES Final R esult [facility] [address] [place], [place] [phone] from Last 3 Months or Most Recently Relevant to Health Maintenance Insurance [address] [place] [id number] [place] [address] [address] [place] [id number] [place] [address] [address] [place] [phone] [address] [place] [address] [address] [place] [phone] [facility] ACO [address] [place] [address] [place] [phone] [facility] ACO [facility] ACO Care Teams Legal Officer Relationship Specialty Start Date End Date Xochilt Mckoy MD [address] [place] [address] PCP - General Internal Medicine 03/18/22 Additional Source Comments The information contained in this document represents components of the legal health record. It is not the complete legal health record.[facility]
--- OUTSIDE RECORDS SUMMARY | 2025-04-28 18:34 | XMS_ITS | Encounter Summary ---
Author Organization [facility] Address [address] [address] Phone Care Team Providers Care Under Cutter Name Role Phone Xochilt Mckoy MD Primary Care Provider [phone] Encounter Details Date Type Department Care Team (Late st Contact Info) Description 04/25/2025 Orders Only [facility] [address] [place] [address] Dick Flores MD [address] [address] Stage 3b chronic kidney disease (HCC); Other proteinuria; Type 2 diabetes mellitus with diabetic nephropathy (HCC) Social History Tobacco Use Types Packs/Day [...] Only [facility] [address] [place] [address] Dick Flores MD [address] [address] Stage 3b chronic kidney disease (HCC); Other proteinuria; Secondary hyperparathyroidism of renal origin (HCC) 07/10/2025 2:45 PM EST Office Visit [facility] [address] [place] [address] Dick Flores MD [address] [facility] [address] [place] [address] documented as of this encounter Visit Diagnoses Diagnosis Stage 3b chronic kidney disease (HCC) Other proteinuria Type 2 diabetes mellitus with diabetic nephropathy (HCC) Stage 3b chronic kidney disease (HCC) Other proteinuria Secondary hyperparathyroidism of renal origin (HCC) Secondary hyperparathyroidism of renal origin documented in this encounter Care Teams Under Cutter Relationship Specialty Start Date End Date Xochilt Mckoy MD [address] [place], [place] PCP - General 06/08/20 documented as of this encounter
--- OUTSIDE RECORDS SUMMARY | 2025-04-28 18:34 | XMS_ITS | Clinical Summary ---
Author Organization [facility] Address [address] [place] [address] Phone Care Team Providers Care Hand Painter Name Role Phone Xochilt Mckoy MD Primary Care Provider [phone] Allergies Active Allergy Reactions Criticality Noted Date [...] time each day 30 tablet 11 024 Active ammonium lactate (LAC-HYDRIN) 12 % lotion Apply topically 025 2025 Active tadalafil (CIALIS) 5 MG tablet TAKE 1 TABLET BY MOUTH DAILY FOR SEXUAL ACTIVITY Active calcitriol (Rocaltrol) 0.25 MCG capsule Take 1 capsule (0.25 mcg total) by mouth 3 times weekly: Mon and Monday morning 36 capsule 3 025 2025 Active Trulicity 1.5 MG/0.5ML solution auto-injector INJECT ONE PEN (=1.5MG) SUBCUTANEOUSLY ONCE A WEEK DIRECTED Active Calcifediol ER 30 MCG capsule controlled-rel ease Take 30 mcg by mouth 1 (one) time each day 30 capsule 11 025 2025 Active Finerenone 10 MG tablet Take 10 mg by mouth 1 (one) time each day 30 tablet 11 025 2025 Active Ozempic, 0.25 or 0.5 MG/DOSE, 2 MG/3ML solution pen-injector INJECT 0.25 MG SUBCUTANEOUSLY EVERY 7 DAYS IN THE ABDOMEN, THIGHS OR UPPER ARM. ROTATE INJECTION SITES. 024 2024 Discontinued D-3-5 125 MCG (5000 UT) capsule TAKE 2 CAPSULES BY MOUTH EVERY 7 DAYS 24 capsule 1 025 2024 Discontinued Active Problems Problem Noted Date [...] Encounters Date Type Department Care Team Description 04/25/2025 Orders Only [facility] [address] [place] [address] Dick Flores MD Stage 3b chronic kidney disease (HCC); Other proteinuria; Type 2 diabetes mellitus with diabetic nephropathy (HCC) 04/17/2025 4:00 PM EST Office Visit [facility] [address] [place] [address] Dick Flores MD Stage 3b chronic kidney disease (HCC) (Primary Dx); Other proteinuria; Secondary hyperparathyroidism of renal origin (HCC) 02/11/2025 Refill [facility] [address] [place] [address] Dick Flores MD from Last 3 Months [...] Sign Reading Time Taken Comments Blood Pressure 100/62 04/17/2025 4:05 PM EST Pulse 79 04/17/2025 4:05 PM EST Temperature - - Respiratory Rate - - Oxygen Saturation 98% 04/17/2025 4:05 PM EST Inhaled Oxygen Concentration - - Weight 91.5 kg (201 lb 12.8 oz) 04/17/2025 4:05 PM EST Height 167.6 cm (5' 6 ) 08/18/2022 2:34 PM EDT Body Mass Index 32.57 08/18/2022 2:34 PM EDT Plan of Treatment Upcoming Encounters Date Type Department Care Team (Latest Contact Info) Description 05/17/2025 Orders Only [facility] [address] [place] [address] Dick Flores MD [address] [address] Stage 3b chronic kidney disease (HCC); Other proteinuria; Secondary hyperparathyroidism of renal origin (HCC) 07/10/2025 2:45 PM EST Office Visit [facility] [address] [place] [address] Dick Flores MD [address] [address] Health Maintenance Due Date Last Done Comments Pneumococcal Vaccine: 50+ Years (2 of 2 - PCV) 01/17/2013 01/18/2012 Colorectal Cancer Screening: Annual FOBT 2014 Colorectal Cancer Screening: Colonoscopy 2014 Colorectal Cancer Screening: Sigmoidoscopy 2014 Diabetes: Hemoglobin A1C 06/28/2020 020, 08/27/2018 Diabetes: Ophthalmology Exam 06/28/2020 Diabetes: Pedal Pulse Checked 06/28/2020 Diabetes: Sensory Foot Exam 06/28/2020 Diabetes: Visual Foot Exam 06/28/2020 Influenza Vaccine (#1) 2025 Pneumococcal Vaccine: Peds ( 0 to 5 Years) and At-Risk Patients (6 to 49 Years) Discontinued 01/18/2012 Hepatitis B Vaccine Aged Out No longe r eligible based on patient's age to complete this topic Procedures Procedure Name Priority Date/Time Associated Diagnosis Comments CYSTATIN C WITH EGFR Routine 04/09/2025 7:28 AM EST Stage 3b chronic kidney disease (HCC) Other proteinuria Type 2 diabetes mellitus with diabetic nephropathy (HCC) HEMOGLOBIN A1C Routine 07/09/2019 8:52 AM EST from Last 3 Months or Most Recently Relevant to Health Maintenance Results * Cystatin C w/GFR (04/09/2025 7:28 AM EST) Cystatin C 2.53 See order comments Comment:REFERENCE RANGE 0.52 -1.23 mg/L eGFR by Cystatin C 23 See order comments Comment: REFERENCE RANGE >=60 mL/min/1.73m2 Performing Sites [facility] [employer]/[facility], [address] [facility] , [place] [address] Hand Molder: Mayco Morales M.D.,PhD 04/09/2025 7:28 AM EST 04/09/2025 7:28 AM EST us Dick Flores MD LAB BLOOD ORDERABLES Final Result Performing Organization Address [facility] Co de Phone Number [facility] See order comments [place] [address] * Hemoglobin A1c (07/09/2019 8:52 AM EST) [...] average glucose, using the formula of the [id number] Average Glucose study (ADAG), Diabetes Care, Vol.31,#8, 2007 07/09/2019 8:52 AM EST us Rtama Conversion LAB BLOOD ORDERABLES Final Resu lt Performing Organization Address City/State/[facility] Co de Phone Number [facility] from Last 3 Months or Most Recently Relevant to Health Maintenance Insurance [facility] Medicaid Care Teams Hand Painter Relationship Specialty Start Date End Date Xochilt Mckoy MD [address] [place], [place] PCP - General 06/08/20
--- OUTSIDE RECORDS SUMMARY | 2025-04-28 18:34 | XMS_ITS | Clinical Summary ---
Author Organization [facility] Address 175 [place] [address] Phone Care Team Providers Care Surveillance Operator Name Role Phone Xochilt Singh MD Primary Care Provider [phone] Allergies Active Allergy Reactions Criticality Noted Date [...] Noted Date Diagnosed Date Amputation of toe ([facility] V24) 05/02/2018 Diabetic polyneuropathy asso ciated with type 2 diabetes mellitus ([facility] V24, [facility] V28) 05/02/2018 Status post amputation of toe of left foot ([facility] V24) 05/02/2018 Encounters Date Type Department Care Team Description 01/29/2025 10:00 AM EDT Office Visit [facility] - [place] [address] [facility] [address] [place] [address] Trevor Harris DPM Acquired hammer toe of right foot (Primary Dx); Follow-up exam; Fissure in skin of both feet; Metatarsalgia of both feet; Corns and callosities; Type II diabetes mellitus with peripheral circulatory disorder ([facility] V24, [facility] V28); Diabetic mononeuropathy simplex ([facility] V24, [facility] V28); Dermatophytosis of nail; Pain in [...] AM EST Office Visit [facility] - [place] [address] [address] Trevor Harris, DPM [address] [address] Health Maintenance Due Date Last [...] Postop changes from fifth ray resection appropriate market research manager-midfoot and forefoot no new radiolucencies noted Right foot 3 views Severe degenerative changes of the hallux hammertoe contractural deformity consistent with osteoarthritis previous amputation second third metatarsal is noted hammertoe contractures noted us Trevor Harris DPM IMG XR PROCEDURES Final R esult from Last 3 Months Insurance [id number] [place] [address] [place] [phone] [facility] Care Teams Surveillance Operator Relationship Specialty Start Date End Date Xochilt Singh MD [address] [place] [address] , [address] [facility] Physician Associ D/B/A: [facility] Lambertatianjelica In Internal Medicine [place], [place] PCP - General Internal Medicine 04/05/21
== END 2025-04-28 16:38 | disposition home or self-care (01) ==
LOC: HO.HMCH 15:52
PROVIDERS: PCP Internal Medicine; Visit Provider Internal Medicine
DX: M70.51 Other bursitis of knee, right knee (principal)

== ENCOUNTER → 2025-04-28 15:51 | Outpatient (BNVA) | payer OTHER, SELFPAY | PROVIDERS: PCP Internal Medicine; Visit Provider Internal Medicine | DX: M70.51 Other bursitis of knee, right knee (principal) | CPT/HCPCS: 99212 ==

== ENCOUNTER 2025-04-29 08:35 | Outpatient (REF) | payer OTHER, SELFPAY ==
--- NOTE | ~2025-04-29 | XR_ITS ---
EXAMINATION: XR KNEE, RIGHT CLINICAL INFORMATION: M71.9 - Bursopathy, unspecified COMPARISON: None available. TECHNIQUE: 2 views of the right knee. FINDINGS: Bone alignment is normal. No fracture or dislocation. There is cortical thickening of the anterior proximal tibia at the tibial tubercle and adjacent soft tissue thickening and irregularity of the patellar tendon and small more inferior soft tissue calcification. There is no joint effusion. There is atherosclerotic disease. XR/XR knee RT 2V IMPRESSION: Bone and soft tissue changes at the tibial tubercle. Electronically signed by: Deedee Handley MD 04/29/2025 09:08 AM VONDA
--- OUTSIDE RECORDS SUMMARY | 2025-04-29 08:40 | XMS_ITS | Clinical Summary ---
Author Organization 175 [facility] Address 175 [place] [address] Phone Care Team Providers Care Squeegee Operator Name Role Phone Xochilt Singh MD Primary Care Provider [phone] Allergies Active Allergy Reactions Criticality Noted Date [...] Noted Date Diagnosed Date Amputation of toe ([facility] V24) 05/02/2018 Diabetic polyneuropathy asso ciated with type 2 diabetes mellitus ([facility] V24, [facility] V28) 05/02/2018 Status post amputation of toe of left foot ([facility] V24) 05/02/2018 Encounters Date Type Department Care Team Description 01/29/2025 10:00 AM EDT Office Visit Orthopedic Surgery - [place] 250 175 [facility] 250 [place] [address] Trevor Harris DPM Acquired hammer toe of right foot (Primary Dx); Follow-up exam; Fissure in skin of both feet; Metatarsalgia of both feet; Corns and callosities; Type II diabetes mellitus with peripheral circulatory disorder ([facility] V24, [facility] V28); Diabetic mononeuropathy simplex ([facility] V24, [facility] V28); Dermatophytosis of nail; Pain in toe [...] AM EST Office Visit Orthopedic Surgery - [place] [address] [address] Trevor Harris, DPM [address] [address] Health Maintenance Due Date Last [...] Postop changes from fifth ray resection appropriate engrosser-midfoot and forefoot no new radiolucencies noted Right foot 3 views Severe degenerative changes of the hallux hammertoe contractural deformity consistent with osteoarthritis previous amputation second third metatarsal is noted hammertoe contractures noted us Trevor Harris DPM IMG XR PROCEDURES Final R esult from Last 3 Months Insurance [address] [place] [address] [place] [phone] [facility] Care Teams Squeegee Operator Relationship Specialty Start Date End Date Xochilt Singh MD [address] [place] [address] , [address] [facility] Physician Associ D/B/A: Clara Lambertatianjelica In Internal Medicine [place], [place] PCP - General Internal Medicine 04/05/21
--- OUTSIDE RECORDS SUMMARY | 2025-04-29 08:40 | XMS_ITS | Encounter Summary ---
Author Organization [facility] Address [address] [place] [address] Phone Care Team Providers Care Machining Associate Name Role Phone Xochilt Mckoy MD Primary Care Provider [phone] Encounter Details Date Type Department Care Team (Late Contact Info) Description 09/26/2022 Telephone [facility] [address] [place] [address] Jana Barger Social History Tobacco [...] - 09/26/2022 9:52 AM EDT Maricruz from [facility] pharmacy called to inquire if this PT is still receiving Retacrit. Please call [phone] Option 2 documented in this encounter Plan of Treatment Upcoming Encounters Date Type Department Care Team (Latest Contact Info) Description 05/17/2025 Orders Only [facility] [address] [place] [address] Dick Flores MD [address] [address] Stage 3b chronic kidney disease (HCC); Other proteinuria; Secondary hyperparathyroidism of renal origin (HCC) 07/10/2025 2:45 PM EST Office Visit [facility] [address] [place] [address] Dick Flores MD [address] [address] documented as of this encounter Visit Diagnoses Not on filedocumented in this encounter Care Teams Machining Associate Relationship Specialty Start Date End Date Xochilt Mckoy MD [address] [place], [place] PCP - General 06/08/20 documented as of this encounter
--- OUTSIDE RECORDS SUMMARY | 2025-04-29 08:40 | XMS_ITS | Clinical Summary ---
Author Organization [facility] Address [address] [facility] [address] [place] [address] Phone Care Team Providers Care Pre Billing Specialist Name Role Phone Xochilt Mckoy MD [...] morning. Active blood-glucose meter,continuou s (DEXCOM G6 PRODUCTION TECHNOLOGIST) MiscIndications :Type 2 diabetes mellitus with diabetic [...] he needs to meet with our physician quality control assistant to train him and get pump [...] [facility] [address] [place] [address] Aaron Courtney DO Medication Refill 03/14/2025 Telephone [facility] [address] [place] [address] Aaron Courtney DO BROKEN DEXCOM G6 TRANSMITTER 01/29/2025 Telephone [facility] [address] [place] [address] [place] [address] Gwen Clayton MA [...] 3:20 PM EST Office Visit [facility] [address] [place] [address] Aaron Courtney DO [address] [place] [address] Health Maintenance Due Date Last Done Comments [...] HEMOGLOBIN A1C 5.9(H) 4.3 - 5.8 % [facility] Blood 10/25/2024 9:16 AM EDT 10/25/2024 9:18 AM EDT us Aaron Courtney DO LAB BLOOD BKR ORDERABLES Final R esult [facility] [address] [place], [place] [phone] from Last 3 Months or Most Recently Relevant to Health Maintenance Insurance [address] [place] [id number] [place] [address] [address] [place] [id number] [place] [address] [address] [place] [address] [address] [place] [phone] [address] [place] [phone] [facility] ACO [address] [place] [address] [place] [phone] [facility] ACO [facility]CO [facility] Care Teams Pre Billing Specialist Relationship Specialty Start Date End Date Xochilt Mckoy MD [address] [place] [address] PCP - General Internal Medicine 03/18/22 Additional Source Comments The information contained in this document represents components of the legal health record. It is not the complete legal health record.[facility]
--- OUTSIDE RECORDS SUMMARY | 2025-04-29 08:40 | XMS_ITS | Encounter Summary ---
Author Organization [facility] Address [address] [address] Phone Care Team Providers Care Alterations Expert Name Role Phone Xochilt Mckoy MD Primary Care Provider [phone] Encounter Details Date Type Department Care Team (Late st Contact Info) Description 04/25/2025 Orders Only [facility] [address] [place] [address] Dick Flores MD [address] [address] Stage 3b chronic kidney disease [...] Only [facility] [address] [place] [address] Dick Flores MD [address] [address] Stage 3b chronic kidney disease (HCC); Other proteinuria; Secondary hyperparathyroidism of renal origin (HCC) 07/10/2025 2:45 PM EST Office Visit [facility] [address] [place] [address] Dick Flores MD [address] [facility] [address] [place] [address] documented as of this encounter Visit Diagnoses Diagnosis Stage 3b chronic kidney disease (HCC) Other proteinuria Type 2 diabetes mellitus with diabetic nephropathy (HCC) Stage 3b chronic kidney disease (HCC) Other proteinuria Secondary hyperparathyroidism of renal origin (HCC) Secondary hyperparathyroidism of renal origin documented in this encounter Care Teams Alterations Expert Relationship Specialty Start Date End Date Xochilt Mckoy MD [address] [place], [place] PCP - General 06/08/20 documented as of this encounter
--- OUTSIDE RECORDS SUMMARY | 2025-04-29 08:40 | XMS_ITS | Clinical Summary ---
Author Organization [facility] Address [address] [place] [address] Phone Care Team Providers Care Horse Racer Name Role Phone Xochilt Mckoy MD Primary Care Provider [phone] Allergies Active Allergy Reactions Criticality Noted Date [...] Only [facility] [address] [place] [address] Dick Flores MD Stage 3b chronic kidney disease (HCC); Other proteinuria; Type 2 diabetes mellitus with diabetic nephropathy (HCC) 04/17/2025 4:00 PM EST Office Visit [facility] [address] [place] [address] Dick Flores MD Stage 3b chronic kidney disease (HCC) (Primary Dx); Other proteinuria; Secondary hyperparathyroidism of renal origin (HCC) 02/11/2025 Refill [facility] [address] [place] [address] Dick Flores [...] Orders Only [facility] [address] [place] [address] Dick Flores MD [address] [address] Stage 3b chronic kidney disease (HCC); Other proteinuria; Secondary hyperparathyroidism of renal origin (HCC) 07/10/2025 2:45 PM EST Office Visit [facility] [address] [place] [address] Dick Flores MD [address] [address] Health Maintenance Due Date Last [...] Comment: REFERENCE RANGE >=60 mL/min/1.73m2 Performing Sites [facility] [employer]/[facility], [address] [facility] , [place] [address] Education Dean: Mayco Morales M.D.,PhD 04/09/2025 7:28 AM EST 04/09/2025 7:28 AM EST us Dick Flores MD LAB BLOOD ORDERABLES Final Result Performing Organization Address [facility] Co de Phone Number [facility] See order [place] [address] * Hemoglobin A1c (07/09/2019 8:52 AM EST) [...] average glucose, using the formula of the D1Y-Gcxkenn Average Glucose study (ADAG), Diabetes Care, Vol.31,#8, 2007 07/09/2019 8:52 AM EST us Rtama Conversion LAB BLOOD ORDERABLES Final Resu lt Performing Organization Address City/State/[facility] Co de Phone Number [facility] Last 3 Months or Most Recently Relevant to Health Maintenance Insurance [facility] Medicaid Care Teams Horse Racer Relationship Specialty Start Date End Date Xochilt Mckoy MD [address] [place], [place] PCP - General 06/08/20
== END 2025-04-29 08:36 | disposition home or self-care (01) ==
LOC: HO.XRAY 08:35
PROVIDERS: Visit Provider Internal Medicine
DX: M71.9 Bursopathy, unspecified (principal)
CPT/HCPCS: 73560

== ENCOUNTER → 2025-04-29 08:40 | Outpatient (BNV) | payer OTHER, SELFPAY | PROVIDERS: Visit Provider Radiology Diagnostic Radiology | DX: M92.521 Juvenile osteochondrosis of tibia tubercle, right leg (principal) | CPT/HCPCS: 73560 ==

== ENCOUNTER 2025-05-02 09:58 | Outpatient (AMB) | payer OTHER, SELFPAY ==
--- NOTE | 2025-05-02 10:15 | A.OFFVIS_ITS ---
Intake Visit Reasons: 6M LABS/PVR(set) Intake Note: Reason for Visit: Testosterone/PVR Follow up Urology Meds: Tadalafil Blood Thinners: None Labs: A1C- 5.5(04/01/25) LH- 10.0 Testosterone- 414 Free Testosterone w/ SHBG- 42.4 Bioavail Testo- 66.8 SHBG- 47-03/28/2025 Last Urine Culture- 09/28/2024 Imaging: None Last PVR: 27ml PVR:60ml Allergies Sulfa (Sulfonamide Antibiotics) (SULFA (SULFONAMIDE ANTIBIOTICS)) Allergy (Intermediate, Verified 04/28/25 16:02) hives HPI Comments Details: Juan Jose is a pleasant Mohawk-speaking male. He is a patient Dr. Kee. He is seen the following urologic conditions - neurogenic bladder - lower urinary tract symptoms - hypogonadism Medical translation provided by son Reports improved bladder stability Hypo gonadal Partial response to tadalafil 5 mg. Would increase to 10 mg daily and repeat labs in 6 Follow in 6 months with testosterone - current HbA1c 7.6 Is on Jardiance 25 mg. Does drink 6-7 bottles of water per day. Nocturia x1. Hypogonadism Type 2 diabetic Labs - 09/20 T 240, 03/22 T4-10, LH 10, bioavailable 65 Lower urinary tract symptoms Initial presentation - Difficulty with urine initiation and weakness of stream Concomitant diabetes with diabetic nephropathy and microalbumin urea PSA 09/19 0.16 Prior medications doxazosin - had retrograde ejaculation dizziness, switched to alfuzosin Suprapubic tube placed January 2023 Bladder came back online by late April 2023 Suprapubic tube removed at that point in time [facility] Medical History correction (current) use of insulin Diabetic nephropathy associated with type 2 diabetes mellitus Mood disorder Diabetes mellitus Bipolar disorder with psychotic features Hypertension Osteomyelitis Bipolar 1 disorder Difficulty walking Neuromuscular dysfunction of bladder PVD (peripheral vascular disease) Benign prostatic hyperplasia Hyperlipidemia Restrictive lung disease Bacteremia Foot ulcer Headache Patellofemoral arthritis of left knee Microalbuminuria Left knee pain Foot osteomyelitis, right Anemia in chronic kidney disease Right foot pain PAD (peripheral artery disease) Anemia CKD (chronic kidney disease) stage 3, GFR 30-59 ml/min CKD stage G3b/A2, GFR 30-44 and albumin creatinine ratio 30-299 mg/g Osteomyelitis Morbid obesity 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 Brother No problems noted. Son No problems noted. Daughter In good health Maternal Grandmother DM (diabetes mellitus) Stroke Social History Household Members: None Housing: Unknown / Unable to assess Alcohol intake: never Patient Tobacco Use Status: Never used Tobacco e-Cigarette/Vaping Use: Never Used Second Hand Smoke Exposure: No Substance Use Type: Marijuana Advance Directives Date on File: 09/19/22 service: No Current occupational status: disabled Sexual orientation: Did not discuss. Cognitive needs: No Hearing needs: No Vision needs: Yes Review of Systems Const Denies chills and Denies fever(s) Card Reports no additional complaints and Denies syncope Resp Denies cough GI Denies abdominal pain and Denies heartburn Reports as per HPI and Denies change in libido Neuro Denies syncope Psych Denies change in libido Endo Denies change in libido Physical Exam Const General: cooperative, healthy appearing, comfortable and no acute distress Orientation/consciousness: patient oriented x3 HEENT Face and sinus: Yes normal facial exam Mouth: moist mucous membranes Neck Neck: Yes normal visual inspection, Yes full ROM and Yes trachea midline Chest Chest palpation & inspection: normal inspection of the chest Resp Effort & Inspection: normal respiratory effort, able to speak in complete sentences and no respiratory distress GI Inspection: Yes normal to inspection Back/Spine/Pelvis Cervical Spine: normal cervical lordosis Thoracic/Lumbar Spine: thoracic and lumbar spine normal to inspection Skin General skin exam: no rashes or lesions noted Neuro General: patient oriented x3, gait normal, tone normal and moves all extremities Extrem General: Yes normal to inspection and Yes capillary refill normal Office Procedures Post Void Residual Post Residual Void Post Void Residual (PVR): 60 [id number] Void Residual by ultrasound Results AMB Urinalysis, Automated UA Leukoctes 0 Juanito/uL Last Edit by Jana Bauman [facility] on 05/02/25 10:28 UA Nitrite Negative Last Edit by Jana Bauman [facility] on 05/02/25 10:28 UA Urobilinogen 0.2 mg/dL Last Edit by Jana Bauman [facility] on 05/02/25 10:2 8 UA Protein 30 mg/dL Last Edit by Jana Bauman A on 05/02/25 10:28 UA pH 5.5 Last Edit by Jana Bauman [facility] on 05/02/25 10:28 UA Blood 0 Lloyd/uL Last Edit by Jana Bauman [facility] on 05/02/25 10:28 UA Specific [place] 1.015 Last Edit by Jana Bauman [facility] on 05/02/25 10: 28 UA Ketone Negative Last Edit by Jana Bauman [facility] on 05/02/25 10:28 UA Bilirubin 0 mg/dL Last Edit by Jana Bauman [facility] on 05/02/25 10:28 UA Glucose 1000 mg/dL Last Edit by Jana Bauman [facility] on 05/02/25 10:28 Results Reviewed Results Reviewed: Laboratory Last Values Urine pH (Auto) 5.5 05/02/25 10:27 Specific [place] (Auto) 1.015 05/02/25 10:27 Urine Protein (Auto) 30 mg/dL 05/02/25 10:27 Glucose (UA)(Auto) 1000 mg/dL 05/02/25 10:27 Urine Ketones (Auto) Negative 05/02/25 10:27 Urine Blood (Auto) 0 Lloyd/uL 05/02/25 10:27 Urine Nitrite (Auto) Negative 05/02/25 10:27 Urine Bilirubin (Auto) 0 mg/dL 05/02/25 10:27 Urine Urobilinogen (Auto) 0.2 mg/dL 05/02/25 10:27 Leukocyte Esterase (Auto) 0 Juanito/uL 05/02/25 10:27 Assessment & Plan Assessment & Plan (1) Weak urinary stream: Code(s): R39.12 - Poor urinary stream Category: Medical (2) Hypogonadism in male: Code(s): E29.1 - Testicular hypofunction Category: Medical Plan Six-month follow-up lab work Orders: Orders AMB Post Void Residual by ultrasound Today N40.1 - Benign prostatic hyperplasia with lower urinary tract symptoms AMB Urinalysis Automated Today Z13.9 - Encounter for screening, unspecified Patient Instructions: This note is constructed using voice recognition software. While every effort has been made to ensure accuracy seafood service team member errors may have been included. Imaging studies, laboratory and physical exam results were discussed and reviewed in detail. No major barriers to patient understanding were identified. An opportunity to ask questions regarding the treatment plan was provided. All questions were answered. The patient expressed understanding and agreement with the above treatment plan. The patient is aware they should contact our office by phone for worsening of their current condition or the appearance of new urologic symptoms. Compliance is encouraged with any medications and followup testing that is ordered. It is a privilege to participate in the urologic care of your patient. If you have any questions or concerns regarding treatment for the above conditions, or other urologic issues, please do not hesitate to contact me. The office telephone contact is [phone]. Sincerely, Dr Sherwin Singer MD, [facility] - Urology Compassionate Specialist Care for the Genitourinary System Coding Level of Care Code Est Pt Level 4 (42725) Complex visit Add On G2211 Diagnoses Weak urinary stream R39.12 Hypogonadism in male E29.1 CPT Codes Post Residual Void - PVR CPT Code: 40897-[id number] Void Residual by ultrasound ([id number])
== END 2025-05-02 10:39 | disposition home or self-care (01) ==
LOC: HO.HUSH 09:59
PROVIDERS: PCP Internal Medicine; Visit Provider Urology
DX: R39.12 Poor urinary stream (principal); E29.1 Testicular hypofunction; Z13.9 Encounter for screening, unspecified
CPT/HCPCS: 99214

== ENCOUNTER → 2025-05-02 09:58 | Outpatient (BNVA) | payer OTHER, SELFPAY | PROVIDERS: PCP Internal Medicine; Visit Provider Urology | DX: N40.1 Benign prostatic hyperplasia with lower urinary tract symptoms (principal); R39.12 Poor urinary stream; E29.1 Testicular hypofunction | CPT/HCPCS: 51798; 81003; 99212 ==

== ENCOUNTER 2025-05-12 13:55 | Outpatient (AMB) | payer OTHER, SELFPAY ==
--- OUTSIDE RECORDS SUMMARY | 2025-05-08 15:20 | XMS_ITS | Encounter Summary ---
Author Organization [facility] Address [address] [place] [address] Phone Care Team Providers Care Tooler Name Role Phone Xochilt Mckoy MD Primary Care Provid er Reason for Referral * Medication Prior Authorization - Closed Specialty Diagnoses / Procedures Referred By Kelly jasso Referred To Contact Diagnoses Type 2 diabetes mellitus with diabetic polyneuropathy, without long-term current use of insulin Type 2 diabetes mellitus with stage 3a chronic kidney disease, without long-term current use of insulin [place] [address] Phone: tel: fax: mailto:[email or web address] Referral ID Status Reason Start Date Expiration Date Visits Re quested Visits Authorized [id number] Closed 1 1 Reason for Visit * Reason Comments Follow Up Visit Encounter Details Date Type Department Care Team (Late st Contact Info) Description 05/08/2025 3:20 PM EST Office Visit [facility] [place] [address] [place] [address] [email or web address] Type 2 diabetes mellitus with diabetic polyneuropathy, without long-term current use of insulin (Primary Dx); Type 2 diabetes mellitus with stage 3a chronic kidney disease, without long-term current use of insulin; Hyperlipidemia LDL goal <70 Social History Tobacco Use Types Packs/Day Years Used Date Smoking Tobacco: Never Passive Smoke Exposure: Never Smokeless Tobacco: Never Tobacco Cessation:Counseling Given: Not Answered Alcohol Use Standard Drinks/Week Comments Not Currently [...] Sign Reading Time Taken Comments Blood Pressure 120/66 05/08/2025 3:34 PM EST Pulse 80 05/08/2025 3:34 PM EST Temperature - - Respiratory Rate 20 05/08/2025 3:34 PM EST Oxygen Saturation 98% 05/08/2025 3:34 PM EST Inhaled Oxygen Concentration - - Weight 89.1 kg (196 lb 6.4 oz) 05/08/2025 3:34 P M EST Height - - Body Mass Index 32.68 07/19/2024 12:56 PM EST documented in this encounter Patient Instructions * Patient Instructions* Aaron Courtney DO - 05/08/2025 3:20 PM EST Continue current regimen for the next visit get blood work fasting because I am checking lipid panel. documented in this encounter Progress Notes * Aaron Courtney DO - 05/08/2025 3:20 PM EST Images from the original note were not included. Presenting Complaint: 1. Type 2 diabetes mellitus with diabetic polyneuropathy, without long-term current use of insulin 2. Type 2 diabetes mellitus with stage 3a chronic kidney disease, without long- term current use of insulin 3. Hyperlipidemia LDL goal <70 History of Present Illness: 60-year-old man with history of obesity status post [place]-en-Y gastric bypass, hyperlipidemia, peripheral vascular disease, CKD stage III diabetes mellitus type 2 diagnosed circa 2006 with diabetic retinopathy, neuropathy, unclear if he has nephropathy who was last seen on 11/06/2024 and now presentsfor follow-up of diabetes mellitus. The patient is now on the OmniPod 5 pump with insulin lispro also on Dexcom G6. In addition he is using Jardiance 25 mg daily and Trulicity 1.5 mg weekly. He informs me that he is no longer using Ozempic because it is no longer covered by his insurance plan. His hemoglobin A1c decreased to 5.7 from 5.9% on 05/02/2025 but this may be falsely low due to anemia. On 01/14/2025 his hemoglobin level was low at 12.7 and hematocrit was 40.8. His CGM shows 78% in target. Average glucose 156 mg/dL. Coefficient of variation is 31 which is notbad. He tends to have higher numbers between 3 and 5 PM but not above 180 on average. 1% of the glucose are between 54 and 69. He is now exercising his diet has changed slightly try to make healthier. On 10/25/2024 LDL 41, triglycerides 90, HDL 26. GFR on 05/02/2025 was 46. He appears to have vitamin D deficiency and secondary hyperparathyroidism.He also probably has hyperparathyroidism from renal insufficiency. He is following with nephrology. Urine microalbumin on 09/22/2023 was elevated 1007. Medication: Pre-Procedure Instructions: Medication Instructions acetaminophen (TYLENOL) 500 MG tablet acidophilus-pectin, citrus 25 million cell -100 mg Tab tablet ammonium lactate (LAC-HYDRIN) 12 % lotion atorvastatin (LIPITOR) 10 MG tablet bisacodyl (DULCOLAX) 5 mg Tab tablet blood-glucose meter,continuous (DEXCOM G6 CITY MANAGER) Misc calcitriol (ROCALTROL) 0.25 MCG capsule cholecalciferol (VITAMIN D3) 5,000 unit capsule DEXCOM G6 SENSOR Jinny DEXCOM G6 TRANSMITTER Jinny diclofenac sodium (VOLTAREN) 1 % Gel doxazosin (CARDURA) 8 MG tablet dulaglutide (TRULICITY) 1.5 mg/0.5 mL subcutaneous injection empagliflozin (JARDIANCE) 25 mg tablet epoetin bryce-epbx (RETACRIT) 40,000 unit/mL injection FEROSUL 325 mg (65 mg iron) tablet finasteride (PROSCAR) 5 mg tablet FREESTYLE LITE Strp strips insulin lispro (ADMELOG, HUMALOG) 100 unit/mL injection vial insulin pump cart,auto,BT-cntr (OMNIPOD 5 G6 INTRO KIT, GEN 5,) Crtg insulin pump cart,automated,BT (OMNIPOD 5 G6 PODS, GEN 5,) Crtg insulin syringe-needle U-100 (SURE COMFORT INS. SYR. U-100) 0.5 mL 29 gauge x 1/2 Syrg lisinopril (PRINIVIL,ZESTRIL) 5 MG tablet mirtazapine (REMERON) 15 MG tablet OMNIPOD 5 G6-G7 PODS, GEN 5, Crtg STOOL SOFTENER 100 mg capsule tadalafiL (CIALIS) 5 MG tablet tamsulosin (FLOMAX) 0.4 mg Cap traZODone (DESYREL) 50 MG tablet No current facility-administered medications for this visit. Lab Data: Appointment on 05/02/2025 Component Date Value Ref Range Status Sodium 05/02/2025 139 136 - 145 mmol/L Final Potassium 05/02/2025 5.8 (H) 3.4 - 5.1 mmol/L Final Chloride 05/02/2025 109 (H) 98 - 107 mmol/L Final CO2 05/02/2025 20 20 - 31 mmol/L Final Anion Gap 05/02/2025 10 3 - 17 mmol/L Final BUN 05/02/2025 43 (H) 6 - 23 mg/dL Final Creatinine 05/02/2025 1.70 (H) 0.60 - 1.30 mg/dL Final eGFR 05/02/2025 46 (L) >59 mL/min/1.73m2 Final Estimated glomerular filtration rate calculated using the CKD-EPI refit equation. Glucose 05/02/2025 119 (H) 70 - 99 mg/dL Final Calcium 05/02/2025 7.9 (L) 8.5 - 10.5 mg/dL Final Phosphorus 05/02/2025 3.8 2.5 - 4.5 mg/dL Final Albumin 05/02/2025 4.0 3.5 - 5.2 g/dL Final Hemoglobin A1c 05/02/2025 5.7 (H) 4.3 - 5.6 % Final Calculated Mean Blood Glucose 05/02/2025 117 mg/dL Final There is no established normal range for the Estimated Average Glucose (EAG). However, a HbA1c of 5.6% (upper limit of normal) represents an EAG of 114 mg/dL. The diagnostic HbA1c level for diabetes is greater than or equal to 6.5%, which represents an EAG greater than or equal to 140 mg/dL. Creatinine, Urine 05/02/2025 76 mg/dL Final Microalbumin, Urine 05/02/2025 17.2 (H) <2.0 mg/dL Final MALB/CRE 05/02/2025 226.3 (H) <30.0 mg/g Cre Final Physical Exam: Vital Signs: Vitals: 05/08/25 1534 BP: 120/66 Pulse: 80 Resp: 20 SpO2: 98% body mass index is 32.68 kg/m??. Weight: [89.1 kg (196 lb 6.4 oz)] 89.1 kg (196 lb 6.4 oz) (05/08 1534) Gen. Exam: Impression: 1. Type 2 diabetes mellitus with diabetic polyneuropathy, without long-term current use of insulin (Primary) Assessment & Plan: Hemoglobin A1c 5.7% may be falsely low but his CGM shows that he has 74% in target range. I would not make any changes continue current regimen. Orders: - empagliflozin (JARDIANCE) 25 mg tablet Dispense: 90 tablet; Refill: 1 - dulaglutide (TRULICITY) 1.5 mg/0.5 mL subcutaneous injection Dispense: 6 mL; Refill: 1 - insulin lispro (ADMELOG, HUMALOG) 100 unit/mL injection vial Dispense: 80 mL; Refill: 1 - Hemoglobin A1c - Lipid Panel 2. Type 2 diabetes mellitus with stage 3a chronic kidney disease, without long- term current use of insulin - empagliflozin (JARDIANCE) 25 mg tablet Dispense: 90 tablet; Refill: 1 - insulin lispro (ADMELOG, HUMALOG) 100 unit/mL injection vial Dispense: 80 mL; Refill: 1 - Hemoglobin A1c - Lipid Panel 3. Hyperlipidemia LDL goal <70 Assessment & Plan: Controlled. LDL 41 mg/dL continue atorvastatin 10 mg. Orders: - atorvastatin (LIPITOR) 10 MG tablet Dispense: 90 tablet; Refill: 1 - Lipid Panel Return in about 6 months (around 11/06/2025) for Diabetes. I have maintained a longitudinal relationship with the patient, overseeing the care of of their diabetes, hyperlipidemia. This has significantly influence my decision-making and treatment plans during today's encounter. Aaron Courtney DO documented in this encounter Miscellaneous Notes * Assessment & Plan Note - Aaron Courtney DO - 05/08/2025 4:16 PM ESTAssociated Problem(s): Type 2 diabetes mellitus with diabetic polyneuropathy, without long-term current use of insulin Hemoglobin A1c 5.7% may be falsely low but his CGM shows that he has 74% in target range. I would not make any changes continue current regimen. * Assessment & Plan Note - Aaron Courtney DO - 05/08/2025 4:15 PM ESTAssociated Problem(s): Hyperlipidemia LDL goal <70 Controlled. LDL 41 mg/dL continue atorvastatin 10 mg. documented in this encounter Plan of Treatment Upcoming Encounters Date Type Department Care Team (Late st Contact Info) Description 11/06/2025 9:50 AM EDT Office Visit [facility] [address] [place] [id number] Aaron Courtney DO [address] [place] [phone] Scheduled Orders Name Type Priority Associated Diagnoses Orde r Schedule Hemoglobin A1c Lab Routine Type 2 diabetes mellitus with diabetic polyneuropathy, without long-term current use of insulin Type 2 diabetes mellitus with stage 3a chronic kidney disease, without long-term current use of insulin Expected: 11/06/2025, Expires: 05/08/2026 Lipid Panel Lab Routine Type 2 diabetes mellitus with diabetic polyneuropathy, without long-term current use of insulin Type 2 diabetes mellitus with stage 3a chronic kidney disease, without long-term current use of insulin Hyperlipidemia LDL goal <70 Expected: 11/06/2025, Expires: 05/08/2026 documented as of this encounter Visit Diagnoses Diagnosis Type 2 diabetes mellitus with diabetic polyneuropathy, without long-term current use of insulin- Primary Type 2 diabetes mellitus with stage 3a chronic kidney disease, without long-term current use of insulin Hyperlipidemia LDL goal <70 Other and unspecified hyperlipidemia documented in this encounter Care Teams Tooler Relationship Specialty Start Date End Date Xochilt Mckoy MD [address] [place] [phone] PCP - General Internal Medicine 03/18/22 documented as of this encounter Additional Source Comments The information contained in this document represents components of the legal health record. It is not the complete legal health record.[facility]
--- NOTE | 2025-05-12 14:01 | A.OFFPC_ITS ---
Vital Signs 05/12/25 14:02 Height 5 ft 5 in Weight 200 lb 6 oz BMI 33.3 BP 112/62 Blood Pressure Location Lt brachial Position Sitting Pulse 81 Pulse Source Pulse Oximeter Temp 97.1 F Temp Source Temporal Artery Scan Pulse Oximetry (%) 96 Oxygen Delivery Method Room Air Intake Visit Reasons: Right knee pain Intake Note: Patient is here to follow up on Right knee pain. Hide And Skin Processing Worker Required: Yes Hide And Skin Processing Worker Language: Rubber Cutter Name: Renata (daughter) Information Interpreted: non-clinical & clinical (pt decline paramedic instructor service prefer daughter to translate) Marine Equipment Preservation Inspector: Present Accompanied by: Daughter Allergies Sulfa (Sulfonamide Antibiotics) (SULFA (SULFONAMIDE ANTIBIOTICS)) Allergy (Intermediate, Verified 05/12/25 14:02) hives Medication List - Last Reconciled 05/12/25 by Cameron Martell MD acetaminophen 650 mg (2 x 325 mg) PO BID 30 days amoxicillin-pot clavulanate 875-125 mg 1 tab PO BID atorvastatin 10 mg PO DAILY blood pressure test kit-medium As directed blood sugar diagnostic (FreeStyle Test strips) Use 4 test strip once a day blood-glucose meter (FreeStyle Lite Meter kit) As directed cholecalciferol (vitamin D3) PO [compression stockings knee high As directed] diclofenac sodium 1% (Voltaren Arthritis Pain) 2 grams topical QID docusate sodium 100 mg PO BID PRN dulaglutide (Trulicity) mg subcut QWEEK empagliflozin (Jardiance) 25 mg PO DAILY epinephrine 0.3 mg IM Q10M PRN ergocalciferol (vitamin D2) (Vitamin D2) 1,250 mcg PO QWEEK 90 days insulin lispro subcut insulin electric motors salesperson cart,aut,G6/7,cntr (Omnipod 5 G6-G7 Intro Kit(Gen 5) subcutaneous cartridge and controller) As directed mirtazapine 30 mg PO BEDTIME 90 days pen needle, diabetic (BD Ultra-Fine Short Pen Needle) As directed [raised toilet seat As directed] tadalafil 10 mg PO DAILY 90 days [tub seat As directed] walker (Ultra-Light Rollator misc) As directed [wheelchair electric As directed] [wrist splint As directed] Tobacco use date assessed: 05/12/25 Dental Screening Dental Screen Date: 04/28/25 HPI HPI Comments History of Present Illness Details The patient is a 60 year old male with PMH of presenting for follow-up of right knee pain. He has been experiencing this pain for one month. The pain was previously persistent and severe, to the point where the knee could not be touched, but has since improved and is no longer consistent. He now reports a chirping sensation with movement and localized pain over the tibial tubercle area. He was seen in our clinic on 04/28 when he was started on Augumentin for persistent knee pain despite conservative measures. An X-ray performed on April 29 showed bone and soft tissue changes at the tibial tubercle, consistent with overuse, but revealed no fracture or joint f luid. [facility] Medical History senior care (current) use of insulin Diabetic nephropathy associated with type 2 diabetes mellitus Mood disorder Diabetes mellitus Bipolar disorder with psychotic features Hypertension Osteomyelitis Bipolar 1 disorder Difficulty walking Neuromuscular dysfunction of bladder PVD (peripheral vascular disease) Benign prostatic hyperplasia Hyperlipidemia Restrictive lung disease Bacteremia Foot ulcer Headache Patellofemoral arthritis of left knee Microalbuminuria Left knee pain Foot osteomyelitis, right Anemia in chronic kidney disease Right foot pain PAD (peripheral artery disease) Anemia CKD (chronic kidney disease) stage 3, GFR 30-59 ml/min CKD stage G3b/A2, GFR 30-44 and albumin creatinine ratio 30-299 mg/g Osteomyelitis Morbid obesity 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 deficiency 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 Brother No problems noted. Son No problems noted. Daughter In good health Maternal Grandmother DM (diabetes mellitus) Stroke Social History (Reviewed 05/12/25 @ 14:02 by ROSAURA Desai Household Members: None Housing: Unknown / Unable to assess Alcohol intake: never Patient Tobacco Use Status: Never used Tobacco e-Cigarette/Vaping Use: Never Used Second Hand Smoke Exposure: No Substance Use Type: Marijuana Advance Directives Date on File: 09/19/22 service: No Current occupational status: disabled Sexual orientation: Did not discuss. Cognitive needs: No Hearing needs: No Vision needs: Yes Questionnaire Thrive Questionnaire Date Thrive assessed: 11/25/24 I am a: Patient What is your living situation today?: I have a steady place to live Within the past 12 months, did the food you bought not last and you didn't have the money to get more?: I choose not to answer this question Within the past 12 months, did you worry whether your food would run out before you got money to buy more?: I choose not to answer this question Do you have trouble paying for medicines?: No Do you have trouble getting transportation to medical appointments?: No Do you have trouble paying your heating and electricity bill?: No Do you have trouble taking care of your child, family member or friend?: I choose not to answer this question Do you have trouble with day-to-day activities such as bathing, preparing meals, shopping, managing finances, etc.?: No Are you currently unemployed and looking for a job?: I choose not to answer this question Are you interested in more education?: I choose not to answer this question Please select the resources that you would like help with: None Currently or been in a relationship where the following occur: I choose not to answer THRIVE Score: 0 MELISA-7 AMB Questionnaire MELISA-7 Date MELISA - 7 assessed: 07/03/24 Source: Developed by Drs. Glenn Pritchard, Vanessa Hernandez, Jules Sims and colleagues, with an educational darlin from [employer]. Review of Systems Const Details: As per HPI. Physical exam (Primary Care) Vital Signs: Last Vital Signs Temp 97.1 F 05/12/25 14:02 Pulse 81 05/12/25 14:02 BP 112/62 05/12/25 14:02 Pulse Ox 96 05/12/25 14:02 Oxygen Delivery Method Room Air 05/12/25 14:02 BMI result Body Mass Index 33.3 Tobacco/Smoking Status: Tobacco use Status Tobacco use date assessed 05/12/25 05/12/25 14:11 Patient Tobacco Use Status Never used Tobacco 05/12/25 14:11 e-Cigarette/Vaping Use Never Used 05/12/25 14:11 Thrive Assessment: Date of Thrive Assessment Date Thrive assessed 11/25/24 05/12/25 14:11 Currently or been in a relationship where the following occur: I choose not to answer Const Other: Pertinent findings are in BOLD GENERAL APPEARANCE NAD, activity normal for age, well developed/ well nourished, no cyanosis, pallor, or diaphoresis. EYES lids/conjunctiva normal. EARS/NOSE/THROAT Mucous membranes moist, nares normal, lips/teeth normal uvula midline without oral pharyngeal erythema, exudate or swelling TMs normal bilaterally. No lymphangitis/lymphedema. HEAD/NECK normocephalic atraumatic, no facial trauma, neck is supple. RESPIRATORY respiratory effort normal, speaks in full sentences, no tripod position, no accessory muscle use. Lungs clear to auscultation without rhonchi, wheezes, rales CARDIAC Regular rate and rhythm, no edema. ABDOMINAL Soft, ND/NT. No evidence of fluid wave. No pulsatile masses on exam, rebound tenderness, Elena sign or pain over Mcburney's point. MUSCLES/EXTREMITIES No abnormal range of motion, no swelling. Right knee point tenderness on lateral side of the knee. SKIN Warm, pink and dry. No rashes, dermatoses, petechiae or lesions. NEUROLOGICAL Speech is clear and appropriate. Normal level of consciousness. Gait and coordination are normal. 5/5 strength in all extremities. PSYCH Normal mood and affect. Judgement/competence is appropriate Coding Level of Care Code Est Pt Level 3 (75664) Diagnoses Acute pain of right knee M25.561 Chronicity: acute Time Spent (min) 20 Assessment & Plan Assessment & Plan (1) Right knee pain: Code(s): M25.561 - Pain in right knee Category: Medical Qualifiers: Chronicity: acute Qualified Code(s): M25.561 - Pain in right knee Plan: - The patient's right knee pain, present for a month, has shown improvement after Augmentin treatment. - An X-ray from April 29 revealed changes at the tibial tubercle due to overuse, with no signs of fracture or joint fluid. - A short course of Prednisone 10 mg daily for three days to treat the remaining pain. - Will complete Augmentin course today. - Follow-up will be on an as-needed basis. Plan I informed the patient and his daughter that his right knee pain has improved since the last visit. I reviewed the April 29 X-ray results, which showed bone and soft tissue changes at the tibial tubercle from overuse, noting the absence of fracture or joint fluid. I am prescribing a three-day course of prednisone 10 mg to help with the inflammation. I advised him to finish his remaining two days of antibiotics and confirmed he can start the prednisone today. I advised that follow-up will be on an as-needed basis. Medications: New prednisone 10 mg PO DAILY 3 tabs 0RF
[2025-05-12 14:02] VITALS: BP 112/62; PULSE 81; TEMP 36.2; O2SAT 96; BMI 33.3
--- OUTSIDE RECORDS SUMMARY | 2025-05-12 20:16 | XMS_ITS | Clinical Summary ---
Author Organization [facility] Address [address] [place] [phone] Phone Care Team Providers Care Websphere Architect Name Role Phone Xochilt Mckoy MD Primary [...] morning. Active blood-glucose meter,continuou s (DEXCOM G6 MALT LIQUORS SALES REPRESENTATIVE) MiscIndications :Type 2 diabetes mellitus with diabetic [...] skin every 3 (three) days. 30 each 11 Active insulin pump cart,auto,BT-cn tr (OMNIPOD 5 [...] BY MOUTH DAILY FOR SEXUAL ACTIVITY Active OMNIPOD 5 G6-G7 PODS, GEN 5, CrtgIndications :Type 2 diabetes mellitus with diabetic polyneuropathy, without long-term current use of insulin,Type 2 diabetes mellitus with stage 3a chronic kidney disease, without long-term current use of insulin Inject 1 each under the skin every other day. 45 each 3 Active DEXCOM G6 TRANSMITTER DeviIndications :Type 2 diabetes mellitus with diabetic polyneuropathy, without long-term current use of insulin,Type 2 diabetes mellitus with stage 3a chronic kidney disease, without long-term current use of insulin 1 kit by Miscellaneous route every 3 (three) months. 1 each 3 Active DEXCOM G6 SENSOR DeviIndications :Type 2 diabetes mellitus with diabetic polyneuropathy, without long-term current use of insulin,Type 2 diabetes mellitus with stage 3a chronic kidney disease, without long-term current use of insulin USE DIRECTED EVERY 10 DAYS 9 each 3 Active calcitriol (ROCALTROL) 0.25 MCG capsule Take 0.25 mcg by mouth every other day. Active ammonium lactate (LAC-HYDRIN) 12 % lotion Apply 1 Application topically as needed. 025 2025 Active cholecalciferol (VITAMIN D3) 5,000 unit capsule Take 5,000 Units by mouth every 7 days. Active diclofenac sodium (VOLTAREN) 1 % Gel Apply 2 g topically 4 (four) times a day. Active empagliflozin (JARDIANCE) 25 mg tabletIndicatio ns:Type 2 diabetes mellitus with diabetic polyneuropathy, without long-term current use of insulin,Type 2 diabetes mellitus with stage 3a chronic kidney disease, without long-term current use of insulin Take 1 tablet (25 mg total) by mouth daily. 90 tablet 1 025 2025 Active atorvastatin (LIPITOR) 10 MG tabletIndicatio ns:Hyperlipidem ia LDL goal <70 Take 1 tablet (10 mg total) by mouth daily. 90 tablet 1 Active dulaglutide (TRULICITY) 1.5 mg/0.5 mL subcutaneous injectionIndica tions:Type 2 diabetes mellitus with diabetic polyneuropathy, without long-term current use of insulin Inject 0.5 mL (1.5 mg total) under the skin every 7 days. 6 mL 1 Active insulin lispro (ADMELOG, HUMALOG) 100 unit/mL injection vialIndications :Type 2 diabetes mellitus with diabetic polyneuropathy, without long-term current use of insulin,Type 2 diabetes mellitus with stage 3a chronic kidney disease, without long-term current use of insulin Use up to 90 units daily via OmniPod pump 80 mL 1 Active DEXCOM G6 SENSOR DeviIndications :Type 2 diabetes mellitus with diabetic polyneuropathy, without long-term current use of insulin,Type 2 diabetes mellitus with stage 3a chronic kidney disease, without long-term current use of insulin 1 kit by Miscellaneous route Every 10 Days. 9 each 3 024 2024 Discontinued empagliflozin (JARDIANCE) 25 mg tabletIndicatio ns:Type 2 diabetes mellitus with diabetic polyneuropathy, without long-term current use of insulin,Type 2 diabetes mellitus with stage 3a chronic kidney disease, without long-term current use of insulin Take 1 tablet (25 mg total) by mouth daily. 90 tablet 1 025 2024 Discontinued(R eorder) insulin lispro (ADMELOG, HUMALOG) 100 unit/mL injection vialIndications :Type 2 diabetes mellitus with diabetic polyneuropathy, without long-term current use of insulin,Type 2 diabetes mellitus with stage 3a chronic kidney disease, without long-term current use of insulin Use up to 90 units daily via OmniPod pump 80 mL 1 025 2024 Discontinued(R eorder) atorvastatin (LIPITOR) 10 MG tabletIndicatio ns:Hyperlipidem ia LDL goal <70 Take 1 tablet (10 mg total) by mouth daily. 90 tablet 1 025 2024 Discontinued dulaglutide (TRULICITY) 1.5 mg/0.5 mL subcutaneous injectionIndica tions:Type 2 diabetes mellitus with diabetic polyneuropathy, without long-term current use of insulin Inject 0.5 mL (1.5 mg total) under the skin every 7 days. 6 mL 1 025 2024 Discontinued(R eorder) atorvastatin (LIPITOR) 10 MG tabletIndicatio ns:Hyperlipidem ia LDL goal <70 TAKE 1 TABLET BY MOUTH EVERY DAY 90 tablet 1 025 2024 Discontinued(Nils seymour) Active Problems Problem Noted Date Diagnosed Date Type 2 diabetes mellitus wit h diabetic polyneuropathy, without long-term current use of insulin 03/18/2022 Assessment & Plan (05/08/2025 4:16 PM EST): Hemoglobin A1c 5.7% may be falsely low but his CGM shows that he has 74% in target range. I would not make any changes continue current regimen. Assessment & Plan (11/06/2024 4:42 PM EDT): [...] he needs to meet with our physician museum assistant to train him and get pump [...] LDL goal <70 03/18/2022 Assessment & Plan (05/08/2025 4:15 PM EST): Controlled. LDL 41 mg/dL continue atorvastatin 10 mg. Assessment & Plan (11/06/2024 4:42 PM EDT): [...] Encounters Date Type Department Care Team Description 05/08/2025 3:20 PM EST Office Visit [facility] [address] [place] [address] Aaron Courtney, DO Type 2 diabetes mellitus with diabetic polyneuropathy, without long-term current use of insulin (Primary Dx); Type 2 diabetes mellitus with stage 3a chronic kidney disease, without long-term current use of insulin; Hyperlipidemia LDL goal <70 05/05/2025 Refill [facility] [address] [place] [address] Aaron Courtney DO Medication Refill 04/22/2025 Refill [facility] [address] [place] [address] Aaron Courtney, DO Medication Refill 03/14/2025 Telephone [facility] [address] [place] [address] Aaron Courtney, DO BROKEN DEXCOM G6 TRANSMITTER from Last 3 Months Family History Medical [...] oz) 05/08/2025 3:34 P M EST Height 165.1 cm (5' 5 ) 07/19/2024 12:56 PM EST Body Mass Index 32.68 07/19/2024 12:56 PM EST Plan of Treatment Upcoming Encounters Date Type Department Care Team (Late st Contact Info) Description 11/06/2025 9:50 AM EDT Office Visit [facility] [address] [place] [address] [place] [address] Aaron Courtney DO [address] [place] [id number] [email or web address] Health Maintenance Due Date Last Done Comments [...] 03/18/2022 INFLUENZA VACCINE (#1) 2024 COVID-19 VACCINE ( season) 2025 HEMOGLOBIN A1C 10/31/2025 05/02/2025, 09/28, 06/27/2024, Additional history exists BLOOD PRESSURE 11/06/2025 05/08/2025 SMOKING STATUS SCREENING (Once After 26 Yrs) Completed 05/08/2025 HEPATITIS A VACCINES Aged Out No long [...] Procedure Name Priority Date/Time Associated Diagnosis Comments MICROALBUMIN/CREATIN INE RATIO, RANDOM URINE Routine 05/02/2025 8:07 AM EST Type 2 diabetes mellitus with diabetic polyneuropathy, without long-term current use of insulin HEMOGLOBIN A1C Routine 05/02/2025 7:59 AM EST Type 2 diabetes mellitus with diabetic polyneuropathy, without long-term current use of insulin RENAL PANEL Routine 05/02/2025 7:59 AM EST Type 2 diabetes mellitus with diabetic polyneuropathy, without long-term current use of insulin from Last 3 Months Results * (ABNORMAL) Microalbumin/Creatinine Ratio, Random Urine (05/02/2025 8:07 AM EST) Creatinine, Urine 76 mg/dL 05/02/2025 11:34 AM [facility] Microalbumin, Urine 17.2(H) <2.0 mg/dL 05/02/2025 11:34 AM [facility] MALB/CRE 226.3(H) <30.0 mg/g Cre 05/02/2025 11:34 AM [facility] Urine (Urine, Voided) Non-Blood Collection / Unknown 05/02/2025 8:07 AM EST 05/02/2025 8:07 AM EST [facility] - 05/02/2025 11:34 AM EST The reference interval(s) are unavailable for this specimen type. Comparison of this result with other laboratory results, such as the concentration in the blood, serum, or plasma, is recommended. The test result should be integrated into the clinical context for interpretation. Aaron Courtney DO LAB URINE ORDERABLES Final Resul t [facility] [address] [place] [address] * (ABNORMAL) Renal Panel (05/02/2025 7:59 AM EST) Sodium 139 136 - 145 mmol/L 05/02/2025 10:48 AM [facility] Potassium 5.8(H) 3.4 - 5.1 mmol/L 05/02/2025 10:48 AM [facility] Chloride 109(H) 98 - 107 mmol/L 05/02/2025 10:48 AM [facility] CO2 20 20 - 31 mmol/L 05/02/2025 10:48 AM [facility] Anion Gap 10 3 - 17 mmol/L 05/02/2025 10:48 AM [facility] BUN 43(H) 6 - 23 mg/dL 05/02/2025 10:48 AM [facility] Creatinine 1.70(H) 0.60 - 1.30 mg/dL 05/02/2025 10:48 AM [facility] eGFR 46(L) >59 mL/min/1.7 3m2 05/02/2025 10:48 AM [facility] Comment:Estimated glomerular filtration rate calculated using the CKD-EPI refit equation. Glucose 119(H) 70 - 99 mg/dL 05/02/2025 10:48 AM [facility] Calcium 7.9(L) 8.5 - 10.5 mg/dL 05/02/2025 10:48 AM [facility] Phosphorus 3.8 2.5 - 4.5 mg/dL 05/02/2025 10:48 AM [facility] Albumin 4.0 3.5 - 5.2 g/dL 05/02/2025 10:48 AM [facility] Blood (Blood) Venipuncture / Unknown 05/02/2025 7:59 AM EST 05/02/2025 8:04 AM EST [facility] BLOOD BKR ORDERABLES Final R esult [address] [address] * (ABNORMAL) Hemoglobin A1c (05/02/2025 7:59 AM EST) Hemoglobin A1c 5.7(H) 4.3 - 5.6 % 05/02/2025 10:50 AM [facility] Calculated Mean Blood Glucose 117 mg/dL 05/02/2025 10:50 AM [facility] Comment:There is no establis [facility] normal range for the Estimated Average Glucose (EAG). However, a HbA1c of 5.6% (upper limit of normal) represents an EAG of 114 mg/dL. The diagnostic HbA1c level for diabetes is greater than or equal to 6.5%, which represents an EAG greater than or equal to 140 mg/dL. Blood (Blood) Venipuncture / Unknown 05/02/2025 7:59 AM EST 05/02/2025 8:04 AM EST Aaron Courtney LAB BLOOD BKR ORDERABLES Final R [facility] [address] [address] from Last 3 Months Insurance [address] [place] [id number] [facility] [address] [place] [id number] [facility] [address] [place] [phone] [address] [place] [address] [address] [place] [address] [facility] [address] [place] [address] [place] [phone] [facility] [address] [place] [phone] [facility] [address] [place] [phone] [facility] Care Teams Websphere Architect Relationship Specialty Start Date End Date Xochilt Mckoy MD [address] [place] [address] PCP - General Internal Medicine 03/18/22 Additional Source Comments The information contained in this document represents components of the legal health record. It is not the complete legal health record.[facility]
--- OUTSIDE RECORDS SUMMARY | 2025-05-12 20:16 | XMS_ITS | Clinical Summary ---
Author Organization [address] [facility] Address [address] [place] [address] Phone Care Team Providers Care General Manager Name Role Phone Xochilt Singh MD Primary Care Provider [phone] Allergies Active Allergy Reactions Criticality Noted Date Comments Sulfa (Sulfonamide Antibiotics) 09/2017 Medications CYANOCOBALAMIN, VITAMIN B-12, ORAL Take by mouth. Active clotrimazole (LOTRIMIN) 1 % cream Apply to skin and nails daily for 3 months 2 Active dulaglutide (Trulicity) 3 mg/0.5 mL pen injector injection Inject into the skin. Active ammonium lactate (AmLactin) 12 % lotion Apply topically if needed for dry skin. 400 g 5 01/30/20 26 Active ammonium lactate (AmLactin) 12 % lotion Apply topically if needed for dry skin. 400 g 2 5 05/01/20 26 Active ammonium lactate (AmLactin) 12 % lotion Apply topically if needed for dry skin. 400 g 5 05/01/20 25 Discontinu ed(Reorder ) Active Problems Problem Noted Date Diagnosed Date Amputation of toe 05/02/2018 Diabetic polyneuropathy asso ciated with type 2 diabetes mellitus 05/02/2018 Status post amputation of toe of left foot 05/02 Encounters Date Type Department Care Team Description 05/01/2025 9:45 AM EST Office Visit Orthopedic Surgery [facility] [address] [facility] [address] [place] [phone] Trevor [place], DPM Fissure in skin of both feet (Primary Dx); Metatarsalgia of both feet; Corns and callosities; Type II diabetes mellitus with peripheral circulatory disorder ([facility] V24, [facility] V28); Acquired hammer toe of right foot; Pain in toe of left foot; Pain in toe of right foot; Dermatophytosis of nail; Diabetic mononeuropathy simplex ([facility] V24, [facility] V28) from Last 3 Months Social History [...] Care Team (Late st Contact Info) Description 07/30/2025 10:15 AM EST Office Visit Orthopedic Surgery [place] [address] [phone] Trevor [place], DPM [address] [phone] Health Maintenance Due Date Last Done Comments [...] 2025 06/22/2023, 10/28/2021, 09/04/2020, Additional history exists Diabetes: Annual Urine Albumin-Creatinine Ratio (uACR) 01/14/2026 01/14/2025, 09/22/2023 Cholesterol Screening (Lipid Panel) 10/25/2029 10/25/2024 DTaP,Tdap,and Td Vaccines (3 - Td or Tdap) 01/08/2032 01/07/2022, 01/18/2012 Pneumococcal Vaccine: 50+ Years Completed 02/23/2023, 01/18/2012 Influenza Vaccine Completed 04/01/2025, , 02/25/2022, Additional history exists HIB Vaccines Aged Out No longer eligi [...] patient's age to complete this topic Insurance [facility] [employer] Care Teams General Manager Relationship Specialty Start Date End Date Xochilt Singh MD 2 [facility] , [address] Physician Associ D/B/A: Clara Lambertatianjel[facility] In Internal Medicine LEVON Elizabeth PCP - General Internal Medicine 04/05/21
== END 2025-05-12 14:23 | disposition home or self-care (01) ==
LOC: HO.HMCH 13:55
PROVIDERS: PCP Internal Medicine; Visit Provider Internal Medicine
DX: M25.561 Pain in right knee (principal)

== ENCOUNTER → 2025-05-12 13:55 | Outpatient (BNVA) | payer OTHER, SELFPAY | PROVIDERS: PCP Internal Medicine; Visit Provider Internal Medicine | DX: M25.561 Pain in right knee (principal) | CPT/HCPCS: 99212 ==

== ENCOUNTER 2025-05-26 10:39 | Outpatient (REF) | payer OTHER, SELFPAY ==
[2025-05-26 11:41] LABS: Anion Gap 10 (12-20); Blood Urea Nitrogen 41 mg/dL (9-16); Calcium 7.2 mg/dL (8.4-10.2); Carbon Dioxide 26 mmol/L (22-29); Chloride 113 mmol/L (96-108); Estimated Glomerular Filt Rate 40; Potassium 4.9 mmol/L (3.3-5.1); Sodium 144 mmol/L (135-145)
--- OUTSIDE RECORDS SUMMARY | 2025-05-26 12:08 | XMS_ITS | Clinical Summary ---
Author Organization [facility] Address [address] [place] [address] Phone Care Team Providers Care Coppersmith Helper Name Role Phone Xochilt Mckoy MD Primary Care Provider [phone] Allergies Active Allergy Reactions Criticality Noted Date [...] day 30 tablet 11 03/07/20 24 Active ammonium lactate (LAC-HYDRIN) 12 % lotion Apply topically 07/30/19 25 026 Active tadalafil (CIALIS) 5 MG tablet TAKE 1 TABLET BY MOUTH DAILY FOR SEXUAL ACTIVITY 09/28/19 Active calcitriol (Rocaltrol) 0.25 MCG capsule Take 1 capsule (0.25 mcg total) by mouth 3 times weekly: Mon and Monday morning 36 capsule 3 10/03/19 25 Active Trulicity 1.5 MG/0.5ML solution auto-injector INJECT ONE PEN (=1.5MG) SUBCUTANEOUSLY ONCE A WEEK DIRECTED Active Calcifediol ER 30 MCG capsule controlled-rele ase Take 30 mcg by mouth 1 (one) time each day 30 capsule 11 04/17/20 25 026 Active Finerenone 10 MG tablet Take 10 mg by mouth 1 (one) time each day 30 tablet 11 04/17/20 25 Active D-3-5 125 MCG (5000 UT) capsule TAKE 2 CAPSULES BY MOUTH EVERY 7 DAYS 24 capsule 05/08/20 25 Active Active Problems Problem Noted Date [...] Encounters Date Type Department Care Team Description 05/26/2025 Refill [facility] [address] [place] [address] Dick Flores MD 05/17/2025 Orders Only [facility] [address] [place] [address] Dick Flores MD Stage 3b chronic kidney disease (HCC); Other proteinuria; Secondary hyperparathyroidism of renal origin (HCC) 05/08/2025 Refill [facility] [address] [place] [address] Dick Flores MD 04/25/2025 Orders Only [facility] [address] [place] [address] Dick Flores MD Stage 3b chronic kidney disease (HCC); Other proteinuria; Type 2 diabetes mellitus with diabetic nephropathy (HCC) 04/17/2025 4:00 PM EST Office Visit [facility] [place] [address] [place] [address] Dick Flores MD Stage 3b chronic kidney disease (HCC) (Primary Dx); Other proteinuria; Secondary hyperparathyroidism of renal origin (HCC) from Last 3 Months Family History [...] Care Team (Late st Contact Info) Description 07/10/2025 2:45 PM EST Office Visit [facility] [address] [place] [address] Dick Flores MD [address] [facility] [address] [place] [phone] Health Maintenance Due Date Last Done Comments [...] Procedure Name Priority Date/Time Associated Diagnosis Comments BASIC METABOLIC PANEL Routine 05/26/2025 10:52 AM EST Stage 3b chronic kidney disease (HCC) Other proteinuria Secondary hyperparathyroidism of renal origin (HCC) CYSTATIN C WITH EGFR Routine 04/09/2025 7:28 AM EST Stage 3b chronic kidney disease (HCC) Other proteinuria Type 2 diabetes mellitus with diabetic nephropathy (HCC) HEMOGLOBIN A1C Routine 07/09/2019 8:52 AM EST from Last 3 Months or Most Recently Relevant to Health Maintenance Results * (ABNORMAL) Basic Metabolic Panel (05/26/2025 10:52 AM EST) Sodium 144 135 - 145 mmol/L See order comments Potassium 4.9 3.3 - 5.1 mmol/L See order comments Chloride 113(H) 96 - 108 mmol/L See order comments Bicarbonate (CO2) 26 22 - 29 mmol/L See order comments Anion Gap 10(L) 12 - 20 See order comments BUN 41(H) 9 - 16 mg/dL See order comments Creatinine Serum 1.74(H) 0.5 - 1.4 mg/dL See order comments eGFR (Calc) 40 See orde r comments Comment: Chronic Kidney Disease: Estimated GFR < 60 mL/min/1.73m2 Severe Kidney Disease: Estimated GFR < 15 mL/min/1.73m2 Glucose 164(H) 60 - 115 mg/dL See order comments Calcium 7.2(L) 8.4 - 10.2 mg/dL See order comments Blood Venous blood / Unknown 05/26/2025 10:52 AM EST 05/26/2025 10:52 AM EST Dick Flores MD LAB BLOOD ORDERABLES Final Result [place] See order comments [place] [address] * Cystatin C w/GFR (04/09/2025 7:28 AM EST) Pathologist [facility] Cystatin C 2.53 See order comments Comment:REFERENCE RANGE 0.52 -1.23 mg/L eGFR by Cystatin C 23 See order comments Comment: REFERENCE RANGE >=60 mL/min/1.73m2 Performing Sites [facility], [address], [place] [address] Systems Integration Analyst: Mayco Morales M.D.,PhD 04/09/2025 7:28 AM EST 04/09/2025 7:28 AM EST us Dick Flores MD LAB BLOOD ORDERABLES Final Result [place] See order comments [place] [address] * Hemoglobin A1c (07/09/2019 8:52 AM EST) [...] average glucose, using the formula of the T2Z-Thlxfra Average Glucose study (ADAG), Diabetes Care, Vol.31,#8, Dec. 2007 07/09/2019 8:52 AM EST us [employer] Conversion LAB BLOOD ORDERABLES Final Resu lt [place] from Last 3 Months or Most Recently Relevant to Health Maintenance Insurance [facility] [place] [address] Care Teams Coppersmith Helper Relationship Specialty Start Date End Date Xochilt Mckoy MD [address] [place], [place] PCP - General 06/08/20
--- OUTSIDE RECORDS SUMMARY | 2025-05-26 12:08 | XMS_ITS | Clinical Summary ---
Author Organization [facility] Address [address] [facility] [address] [place] [address] Phone Care Team Providers Care Wheel Mill Operator Name Role Phone Xochilt Mckoy MD [...] morning. Active blood-glucose meter,continuou s (DEXCOM G6 PLUG PASTER) MiscIndications :Type 2 diabetes mellitus with diabetic [...] OmniPod pump 80 mL 1 025 Active empagliflozin (JARDIANCE) 25 mg tabletIndicatio ns:Type [...] EVERY DAY 90 tablet 1 025 2024 Discontinued(R eorder) Active Problems Problem Noted Date Diagnosed Date [...] he needs to meet with our physician collections assistant to train him and get pump [...] Description 05/08/2025 3:20 PM EST Office Visit [facility] [address] [place] [address] Aaron Courtney, DO Type 2 diabetes mellitus with diabetic polyneuropathy, without long-term current use of insulin (Primary Dx); Type 2 diabetes mellitus with stage 3a chronic kidney disease, without long-term current use of insulin; Hyperlipidemia LDL goal <70 05/05/2025 Refill [facility] [address] [place] [address] Aaron Courtney DO Medication Refill 04/22/2025 Refill [facility] [address] [place] [address] Aaron Courtney DO Medication Refill 03/14/2025 Telephone [facility] [address] [place] [address] Aaron Courtney DO BROKEN DEXCOM G6 TRANSMITTER from Last [...] Description 11/06/2025 9:50 AM EDT Office Visit [facility] [address] [place] [address] Aaron Courtney DO [address] [place] [address] [email or web address] Health Maintenance Due Date Last Done Comments [...] INFLUENZA VACCINE (#1) 2024 COVID-19 VACCINE ( - season) 2025 HEMOGLOBIN A1C 10/31/2025 05/02/2025, 09/28, [...] Creatinine, Urine 76 mg/dL 05/02/2025 11:34 AM [facility] Microalbumin, Urine 17.2(H) <2.0 mg/dL 05/02/2025 11:34 AM [facility] MALB/CRE 226.3(H) <30.0 mg/g Cre 05/02/2025 11:34 AM [facility] Urine (Urine, Voided) Non-Blood Collection / Unknown 05/02/2025 8:07 AM EST 05/02/2025 8:07 AM EST [facility] - 05/02/2025 11:34 AM EST The reference interval(s) are unavailable for this specimen type. Comparison of this result with other laboratory results, such as the concentration in the blood, serum, or plasma, is recommended. The test result should be integrated into the clinical context for interpretation. us Aaron Courtney DO LAB URINE ORDERABLES Final Resul t [facility] [address] [place] [address] * (ABNORMAL) Renal Panel (05/02/2025 7:59 AM EST) Sodium 139 136 - 145 mmol/L 05/02/2025 10:48 AM [facility] Potassium 5.8(H) 3.4 - 5.1 mmol/L 05/02/2025 10:48 AM [facility] Chloride 109(H) 98 - 107 mmol/L 05/02/2025 10:48 AM [facility] CO2 20 20 - 31 mmol/L 05/02/2025 10:48 AM [facility] Anion Gap 10 3 - 17 mmol/L 05/02/2025 10:48 AM [facility] BUN 43(H) 6 - 23 mg/dL 05/02/2025 10:48 AM [facility] Creatinine 1.70(H) 0.60 - 1.30 mg/dL 05/02/2025 10:48 AM [facility] eGFR 46(L) >59 mL/min/1.7 3m2 05/02/2025 10:48 AM [facility] Comment:Estimated glomerular filtration rate calculated using the CKD-EPI refit equation. Glucose 119(H) 70 - 99 mg/dL 05/02/2025 10:48 AM [facility] Calcium 7.9(L) 8.5 - 10.5 mg/dL 05/02/2025 10:48 AM [facility] Phosphorus 3.8 2.5 - 4.5 mg/dL 05/02/2025 10:48 AM [facility] Albumin 4.0 3.5 - 5.2 g/dL 05/02/2025 10:48 AM [facility] Blood (Blood) Venipuncture / Unknown 05/02/2025 7:59 AM EST 05/02/2025 8:04 AM EST [facility] LAB BLOOD BKR ORDERABLES Final R esult Performing Organization Address City/[facility]/ZIP Co de Phone Number [address] [address] * (ABNORMAL) Hemoglobin A1c (05/02/2025 7:59 AM EST) Hemoglobin A1c 5.7(H) 4.3 - 5.6 % 05/02/2025 10:50 AM EST [facility] Calculated Mean Blood Glucose 117 mg/dL 05/02/2025 10:50 AM EST [facility] Comment:There is no establis hed normal range for the Estimated Average Glucose (EAG). However, a HbA1c of 5.6% (upper limit of normal) represents an EAG of 114 mg/dL. The diagnostic HbA1c level for diabetes is greater than or equal to 6.5%, which represents an EAG greater than or equal to 140 mg/dL. Blood (Blood) Venipuncture / Unknown 05/02/2025 7:59 AM EST 05/02/2025 8:04 AM EST Aaron Sherwin DO LAB BLOOD BKR ORDERABLES Final R esult Performing Organization Address City/[facility]/ZIP Co de Phone Number [address] [phone] from Last 3 Months Insurance [address] [place] [phone] [facility] A[employer] [address] [place] [phone] [facility] [address] [place] [phone] [address] [place] [id number] [address] [place] [phone] [facility] [address] [place] [address] [address] [place] [phone] [facility] [address] [place] [phone] [place] [address] [address] [place] [phone] [place] [address] ACO Care Teams Wheel Mill Operator Relationship Specialty Start Date End Date Xochilt Mckoy MD [address] [place] [address] PCP - General Internal Medicine 03/18/22 Additional Source Comments The information contained in this document represents components of the legal health record. It is not the complete legal health record.[facility]
--- OUTSIDE RECORDS SUMMARY | 2025-05-26 12:08 | XMS_ITS | Encounter Summary ---
Author Organization [facility] Address [address] [address] Phone Care Team Providers Care Advanced Quality Engineer Name Role Phone Xochilt Mckoy MD Primary Care Provider [phone] Encounter Details Date Type Department Care Team (Latest Contact Info) Description 05/17/2025 Orders Only [facility] [address] [place] [address] Dick Flores MD [address] [address] Stage 3b chronic kidney disease (HCC); Other proteinuria; Secondary hyperparathyroidism of renal origin (HCC) Social History Tobacco Use Types Packs/Day [...] Visit [facility] [address] [place] [address] Dick Flores MD [address] [address] documented as of this encounter Procedures Procedure Name Priority Date/Time Associated Diagnosis Comments BASIC METABOLIC PANEL Routine 05/26/2025 10:52 AM EST Stage 3b chronic kidney disease (HCC) Other proteinuria Secondary hyperparathyroidism of renal origin (HCC) documented in this encounter Results * (ABNORMAL) Basic Metabolic Panel (05/26/2025 [...] 10:52 AM EST 05/26/2025 10:52 AM EST us Dick Flores MD LAB BLOOD ORDERABLES Final Result [place] See order comments [place] [address] documented in this encounter Visit Diagnoses Diagnosis Stage 3b chronic kidney disease (HCC) Other proteinuria Secondary hyperparathyroidism of renal origin (HCC) Secondary hyperparathyroidism of renal origin documented in this encounter Care Teams Advanced Quality Engineer Relationship Specialty Start Date End Date Xochitl Mckoy MD [address] [place] [address] PCP - General 06/08/20 documented as of this encounter
--- OUTSIDE RECORDS SUMMARY | 2025-05-26 12:08 | XMS_ITS | Encounter Summary ---
Author Organization [facility] Address [address] [address] Phone Care Team Providers Care Hand Tool Lapper Name Role Phone Xochilt Mckoy MD Primary Care Provider [phone] Reason for Visit * Reason Comments Med Refill Encounter Details Date Type Department Care Team ([facility] Contact Info) Description 05/26/2025 Refill [facility] [address] [place] [address] Dick Flores MD [address] [address] Social History Tobacco Use Types [...] Department Care Team (Late Contact Info) Description 07/10/2025 2:45 PM EST Office Visit [facility] [address] [place] [address] Dick Flores MD [address] [address] documented as of this encounter Visit Diagnoses Not on filedocumented in this encounter Care Teams Hand Tool Lapper Relationship Specialty Start Date End Date Xochilt Mckoy MD [address] [place], [place] PCP - General 06/08/20 documented as of this encounter
--- OUTSIDE RECORDS SUMMARY | 2025-05-26 12:08 | XMS_ITS | Clinical Summary ---
Author Organization [facility] Address 175 [place] [address] Phone Care Team Providers Care Hand Washer Name Role Phone Xochilt Singh MD Primary [...] 9:45 AM EST Office Visit Orthopedic Surgery [facility] [address] [facility] [address] [place] [phone] Trevor [place], DPM Fissure in skin of both feet (Primary Dx); Metatarsalgia of both feet; Corns and callosities; Type II diabetes mellitus with peripheral circulatory disorder ([facility] V24, [facility] V28); Acquired hammer toe of right foot; Pain in toe of left foot; Pain in toe of right foot; Dermatophytosis of nail; Diabetic mononeuropathy simplex ([facility] V24, [facility] V28) from Last 3 Months Social History [...] AM EST Office Visit Orthopedic [facility] [place] [address] [address] Trevor [place], DPM [address] [phone] Health Maintenance Due Date Last Done Comments [...] patient's age to complete this topic Insurance [facility] Care Teams Hand Washer Relationship Specialty Start Date End Date Xochilt Singh MD 2 [facility] , [address] Physician Associ D/B/A: [facility] Lambertat[facility] LEVON Elizabeth PCP - General Internal Medicine 04/05/21
--- OUTSIDE RECORDS SUMMARY | 2025-05-26 12:08 | XMS_ITS | Encounter Summary ---
Author Organization [facility] Address [address] [facility] [address] [place] [address] Phone Care Team Providers Care Phone Triage Specialist Name Role Phone Xochilt Mckoy MD Primary Care Provider [phone] Encounter Details Date Type Department Care Team ([facility] Contact Info) Description 09/26/2022 Telephone [facility] [address] [place] [address] Jana Barger Social History Tobacco [...] PT is still receiving Retacrit. Please call [phone] Option 2 documented in this encounter Plan of Treatment Upcoming Encounters Date Type Department Care Team (Late Contact Info) Description 07/10/2025 2:45 PM EST Office [facility] [address] [place] [address] Dick Flores MD [address] [facility] [address] [place] [phone] documented as of this encounter Visit Diagnoses Not on filedocumented in this encounter Care Teams Phone Triage Specialist Relationship Specialty Start Date End Date Xochilt Mckoy MD [address] [place], [place] PCP - General 06/08/20 documented as of this encounter
== END 2025-05-26 10:40 ==
LOC: HO.LAB 10:39
PROVIDERS: PCP Internal Medicine; Visit Provider Internal Medicine
DX: N18.32 Chronic kidney disease, stage 3b (principal); R80.8 Other proteinuria; N25.81 Secondary hyperparathyroidism of renal origin
CPT/HCPCS: 36415; 80048